=== PATIENT | female | born 1970 | race Hispanic/Latino ===

== ENCOUNTER 2018-07-27 01:55 | Inpatient (IN) | payer OTHER ==
[2018-07-27] MEDS ORDERED: Sodium Chloride 0.9% 1,000 ML IV ONE ×2 (02:05→20:00)
[2018-07-27] MEDS ORDERED: Morphine 4 MG/ML VIAL ONE (02:08)
[2018-07-27 02:20] LABS: EOS # 0.2 K/uL (0.0-0.7); LYMPH # 11.3 K/uL (1.0-4.3); MONO # 0.5 K/uL (0.0-0.8); NEUT % 22.5 % (50.0-75.0); NRBC % 0.1 % (0.0-2.0); RED CELL DISTRIBUTION WIDTH 13.6 % (11.5-14.5)
[2018-07-27] MEDS ORDERED: Sodium Bicarbonate (8.4%) 50 Meq Syringe ONE ×3 (02:20→07:23)
[2018-07-27] MEDS ORDERED: Propofol 10 mg/ml Inj (20 ML) ONE (02:21)
[2018-07-27 02:25] LABS: BASO # 0.2 K/uL (0.0-0.2); BASO % 1.4 % (0.0-2.0); EOS % 1.1 % (0.0-4.0); LYMPH % 71.6 % (20.0-40.0); MEAN CELL VOLUME 81.9 fL (81.0-99.0); MEAN CORPUSCULAR HEMOGLOBIN 26.1 pg (27.0-31.0); MEAN CORPUSCULAR HGB CONC 31.8 g/dL (33.0-37.0); MONO % 3.4 % (0.0-10.0); NEUT # 3.6 K/uL (1.8-7.0); PLATELET COUNT 160 K/uL (130-400); RBC 4.61 Mil/uL (3.80-5.20); WHITE BLOOD COUNT 15.8 K/uL (4.8-10.8)
[2018-07-27 02:32] LABS: ALB/GLOB RATIO 1.3 (1.0-2.1); ALBUMIN 3.7 g/dL (3.5-5.0); CALCIUM 9.4 mg/dl (8.6-10.4)
[2018-07-27 02:32] LABS: PROTHROMBIN TIME 11.4 SECONDS (9.7-12.2)
[2018-07-27 02:43] LABS: TROPONIN I 0.072 ng/mL (0.00-0.120)
[2018-07-27 02:59] LABS: ARTERIAL BLOOD GAS O2 SAT 28.2 % (95-98); ARTERIAL BLOOD GAS PCO2 103 mm/Hg (35-45); ARTERIAL BLOOD GAS PH < 6.80 (7.35-7.45); ARTERIAL BLOOD GAS PO2 29 mm/Hg (80-100)
[2018-07-27 03:02] LABS: CK-MB 0.44 ng/mL (0.0-3.38)
--- NOTE | 2018-07-27 03:18 | C.PDOC ---
History Of Present Illness 48 year old female is brought to the ED for evaluation of sudden onset epigastric and chest pain. As per family member patient passed out while at home. Patient was brought to the ED by EMS, noted to be anxious, c/o severe pain. Patient was noted to be in AFiv with a rate of 156, patient was given cardizem and morphine. Patient calmed down. Patient went into respiratory distress with severe bradycardia, ACLS was done. Patient then developed tachycardia at 120 with pulse. Patient has not previous medical history. Chief Complaint (Nursing): Abdominal Pain History Per: EMS, Family History/Exam Limitations: clinical condition Onset/Duration Of Symptoms: Hrs Current Symptoms Are (Timing): Still Present Location Of Pain/Discomfort: Epigastric Radiation Of Pain To:: Chest Quality Of Discomfort: "Pain" Recent travel outside of the [place]: No Additional History Per: EMS, Family Abnormal Vaginal Bleeding: No Past Medical History Reviewed: Historical Data, Nursing Documentation, Vital Signs Vital Signs: Last Vital Signs Temp 96.0 F L 07/27/18 02:15 Pulse 74 07/27/18 02:30 Resp 16 07/27/18 02:30 BP 127/78 07/27/18 02:30 Pulse Ox 100 07/27/18 02:30 - Medical History PMH: Anxiety Comment Only: Chronic Kidney Disease (unable to obtain) Surgical History: No Surg Hx Family History: States: Unknown Family Hx - Social History Hx Alcohol Use: No Hx Substance Use: No Review Of Systems Review Of Systems: ROS cannot be obtained secondary to pt's inabilty to answer questions. Physical Exam - Physical Exam Appears: Non-toxic Skin: Normal Color, Warm, Dry Head: Atraumatic, Normacephalic Eye(s): bilateral: Normal Inspection Neck: Normal ROM, Supple Chest: Symmetrical Cardiovascular: Rhythm Regular Respiratory: Other (assisted respirations) Gastrointestinal/Abdominal: Soft, No Tenderness, No Guarding, No Rebound Extremity: No Tenderness, No Swelling Neurological/Psych: Other (intubated, unresposive ) Gait: Unable To Assess ED Course And Treatment - Laboratory Results Result Diagrams: 07/27/18 02:16 07/27/18 02:16 O2 Sat by Pulse Oximetry: 100 Critical Care Time - Critical Care Note Total Time (in mins): 60 Documented critical care: time excludes all time spent performing seperately billable procedures. Medical Decision Making Medical Decision Making: Plan: * ABG * VBG * CT angio * CT head * Labs * CXR * UA Spoke with Dr. Fraga who accepts the patient for admission Dr. Laurent in ICU accepts the patient. Disposition Discussed With : Hayder Fraga Doctor Will See Patient In The: Hospital Counseled Patient/Family Regarding: Diagnosis - Disposition Disposition: HOSPITALIZED Disposition Time: 03:32 Condition: GUARDED Forms: [facility] (Danish) - POA Present On Arrival: None - Clinical Impression Clinical Impression: Cardiorespiratory arrest, Cardiac arrhythmia, Pulmonary embolism - Scribe Statement The provider has reviewed the documentation as recorded by the Scribe Donovan Junior All medical record entries made by the Scribe were at my direction and personally dictated by me. I have reviewed the chart and agree that the record accurately reflects my personal performance of the history, physical exam, medical decision making, and the department course for this patient. I have also personally directed, reviewed, and agree with the discharge instructions and disposition.
[2018-07-27 03:23] LABS: ARTERIAL BLOOD GAS HEMOGLOBIN 9.4 g/dL (11.7-17.4); ARTERIAL BLOOD GAS O2 SAT 99.8 % (95-98); ARTERIAL BLOOD GAS PCO2 71 mm/Hg (35-45); ARTERIAL BLOOD GAS PH < 6.80 (7.35-7.45); ARTERIAL BLOOD GAS PO2 491 mm/Hg (80-100)
--- NOTE | 2018-07-27 03:23 | CP.PCM.HP ---
<Martha Liriano - Last Filed: 07/27/18 10:43> History of Present Illness - History of Present Illness History of Present Illness: History and Physical - Hospitalist Service CC: Shortness of breath and syncope HPI: Patient is a 48 year old [place] female with past medical history of anxiety who was brought in by EMS for shortness of breath and syncope. Patient's Niece's is at the bedside providing the history. Per the family, the patient travelled to [place] the morning of 07/26 at approximately 9am via bus ride for a zoroastrianism event. Patient returned at approximately 1am on 07/27 from [place] via bus. She walked up the stairs of the apartment complex and had a syncopal event in the lobby. Syncopal event was witnessed by the door man who called EMS. Patient hit her head but it is unclear if she lost consciousness. When family arrived to the scene, patient was complaining of shortness of breath and was extremely anxious. While in the ED, patient still complaining of shortness of breath and now reports having chest/epigastric pain. Patient repeatedly asking to use the bathroom because she wanted to move her bowels. Patient was noted to be in AFib with a rate of 156, patient was given Cardizem and Morphine. Patient calmed down. Patient went into respiratory distress with severe bradycardia, ACLS was done. Patient was intubated and transferred to the ICU for further management. ROS not obtained. PMD: None Allergies: NKDA Medical History: Anxiety Medications: Protonix 40mg PO daily, Cipro 500mg PO, Drospirenona/etinilestradiol 3mg/0.02mg Surgical History: Bariatric surgery, C/S x 2 Social History: Denies alcohol, tobacco, drug use; recently came from [place] 2 months ago, lives with niece and her Family History: Unobtainable Present on Admission - Present on Admission Any Indicators Present on Admission: No Past Patient History - Infectious Disease Hx of Infectious Diseases: None - Past Social History Smoking Status: Never Smoked - CARDIAC Hx Cardiac Disorders: (unable to obtain) - PULMONARY Hx Respiratory Disorders: (unable to obtain) - NEUROLOGICAL Hx Neurological Disorder: (unable to obtain) - HEENT Hx HEENT Problems: (unable to obtain) - RENAL Hx Chronic Kidney Disease: (unable to obtain) - ENDOCRINE/METABOLIC Hx Endocrine Disorders: (unable to obtain) - HEMATOLOGICAL/ONCOLOGICAL Hx Blood Disorders: (unable to obtain) - INTEGUMENTARY Hx Dermatological Problems: (unable to obtain) - MUSCULOSKELETAL/RHEUMATOLOGICAL Hx Musculoskeletal Disorders: (unable to obtain) - GASTROINTESTINAL Hx Gastrointestinal Disorders: (unable to obtain) - GENITOURINARY/GYNECOLOGICAL Hx Genitourinary Disorders: (unable to obtain) - PSYCHIATRIC Hx Anxiety: Yes Hx Substance Use: No - SURGICAL HISTORY Hx Surgeries: Yes (As per Family Member) Hx Section: Yes (x2) Other/Comment: Bariatric Sx - ANESTHESIA Hx Anesthesia: Yes Hx Anesthesia Reactions: No Hx Malignant Hyperthermia: No Meds Allergies/Adverse Reactions: Allergies Allergy/AdvReac Type Severity Reaction Status Date / Time No Known Allergies Allergy Unverified 07/27/18 02:28 Physical Exam - Constitutional Appears: Chronically Ill - Head Exam Head Exam: NORMOCEPHALIC. absent: ATRAUMATIC Additional comments: Patient with large hematoma noted above left eye brow - Eye Exam Eye Exam: absent: Conjunctival injection, Periorbital swelling, Scleral icterus - ENT Exam ENT Exam: Mucous Membranes Moist Additional comments: +ETT - Respiratory Exam Respiratory Exam: Decreased Breath Sounds, Respiratory Distress Additional comments: +Ventilatory breath sounds - Cardiovascular Exam Cardiovascular Exam: Tachycardia, +S1, +S2 - GI/Abdominal Exam GI & Abdominal Exam: Firm, Normal Bowel Sounds. absent: Distended, Guarding, Pulsatile Mass, Rebound, Soft - Extremities Exam Extremities exam: Positive for: pedal pulses present - Neurological Exam Neurological exam: Altered - Skin Skin Exam: Dry, Normal Color, Warm Results - Vital Signs Recent Vital Signs: Last Vital Signs Temp 96.0 F L 07/27/18 02:15 Pulse 74 07/27/18 02:30 Resp 16 07/27/18 02:30 BP 127/78 07/27/18 02:30 Pulse Ox 100 07/27/18 03:21 - Labs Result Diagrams: 07/27/18 08:17 07/27/18 08:17 Labs: Laboratory Results - last 24 hr 07/27/18 07/27/18 07/27/18 02:09 02:16 02:16 WBC 15.8 H RBC 4.61 Hgb 12.0 Hct 37.8 MCV 81.9 MCH 26.1 L MCHC 31.8 L RDW 13.6 Plt Count 160 MPV 10.0 Neut % (Auto) 22.5 L Lymph % (Auto) 71.6 H Candler % (Auto) 3.4 Eos % (Auto) 1.1 Baso % (Auto) 1.4 Neut # (Auto) 3.6 Lymph # (Auto) 11.3 H Candler # (Auto) 0.5 Eos # (Auto) 0.2 Baso # (Auto) 0.2 PT INR APTT Puncture Site pCO2 pO2 ABG pH ABG O2 Saturation Bryce Test ABG Potassium A-a O2 Difference Respiratory Index Glucose Lactate FiO2 Crit Value Called To Crit Value Called By Crit Value Read Back Blood Gas Notified Time Sodium 147 Potassium 4.0 Chloride 107 Carbon Dioxide 16 L Anion Gap 28 H BUN 15 Creatinine 1.2 Est GFR ( Amer) 59 Est GFR (Non-Af Amer) 48 POC Glucose (mg/dL) 288 H Random Glucose 230 H Calcium 9.4 Total Bilirubin 0.3 AST 185 H ALT 116 H Alkaline Phosphatase 93 Total Creatine Kinase 50 CK-MB (Mass) 0.44 Troponin I 0.0720 Total Protein 6.7 Albumin 3.7 Globulin 3.0 Albumin/Globulin Ratio 1.3 Amylase 171 H Lipase 207 Arterial Blood Potassium 07/27/18 07/27/18 02:19 02:55 WBC RBC Hgb Hct MCV MCH MCHC RDW Plt Count MPV Neut % (Auto) Lymph % (Auto) Candler % (Auto) Eos % (Auto) Baso % (Auto) Neut # (Auto) Lymph # (Auto) Candler # (Auto) Eos # (Auto) Baso # (Auto) PT 11.4 INR 1.0 APTT 31 Puncture Site L femoral pCO2 103 H* pO2 29 L* ABG pH < 6.80 L* ABG O2 Saturation 28.2 L Bryce Test Na ABG Potassium 4.7 A-a O2 Difference 555.0 Respiratory Index 19.1 Glucose 281 H Lactate 17.6 H* FiO2 100.0 Crit Value Called To Dr yung Crit Value Called By Rachel love rt Crit Value Read Back Y Blood Gas Notified Time 300 Sodium 146.0 Potassium Chloride 110.0 H Carbon Dioxide Anion Gap BUN Creatinine Est GFR ( Amer) Est GFR (Non-Af Amer) POC Glucose (mg/dL) Random Glucose Calcium Total Bilirubin AST ALT Alkaline Phosphatase Total Creatine Kinase CK-MB (Mass) Troponin I Total Protein Albumin Globulin Albumin/Globulin Ratio Amylase Lipase Arterial Blood Potassium 4.7 Assessment & Plan - Assessment and Plan (Free Text) Assessment: A/P: Patient is a 48 year old [place] female with past medical history of anxiety who presented with worsening shortness of breath and syncope. Acute Hypoxic Respiratory Failure 2/2 Bilateral PE -Intubated, s/p respiratory arrest x 2 -Admitted to the ICU -ABG: pH <6.80, PO2 29, PCO2 103, Lactate 17.6 -D-Dimer was > 5250 -CT head showed left forhead swelling -CTA chest showed diffuse bilateral pulmonary emboli involving bilateral central and segmental pulmonary arteries, cardiac silhouette enlarged, there is evidence of pulmonary venous congestion compatible with CHF, left basilar atelectasis vs pulmonary infarct (official report pending) -Patient started on heparin drip -Lower extremity dopplers and echocardiogram ordered -Patient hypotensive, on Levophed drip Atrial Fibrillation with RVR -Initial EKG showed afib with rate of 146 bpm -Patient on heparin drip -Echocardiogram ordered Abdominal Pain -Currently intubated -Antibiotics: Zosyn and Vancomycin -CT abd/pelvis showed periportal edema and pericholecystic/peripancreatic fluid, probably related to fluid overload, exclude hepatocellular disease. Severe enteritis. Infectious and inflammatory etiologies are considered. Large amount of fecal material is seen throughout colon (official report pending) Hematuria -Obed blood noted in brady -UA and urine culture ordered GI/DVT ppx: -Protonix 40mg IVP Q12H -Heparin drip DISPO: Patient condition is extremely serious. Discussed with family. Prognosis is guarded. Plan discussed with Dr Philly Liriano DO PGY-2 <Hayder Fraga - Last Filed: 07/27/18 11:05> Results - Vital Signs Recent Vital Signs: Last Vital Signs Temp 98.2 F 07/27/18 04:35 Pulse 147 H 07/27/18 07:39 Resp 22 07/27/18 07:39 BP 93/60 L 07/27/18 10:47 Pulse Ox 90 L 07/27/18 07:39 - Labs Result Diagrams: 07/27/18 08:17 07/27/18 08:17 Labs: Laboratory Results - last 24 hr 07/27/18 07/27/18 07/27/18 02:09 02:16 02:16 WBC 15.8 H RBC 4.61 Hgb 12.0 Hct 37.8 MCV 81.9 MCH 26.1 L MCHC 31.8 L RDW 13.6 Plt Count 160 MPV 10.0 Neut % (Auto) 22.5 L Lymph % (Auto) 71.6 H Candler % (Auto) 3.4 Eos % (Auto) 1.1 Baso % (Auto) 1.4 Neut # (Auto) 3.6 Lymph # (Auto) 11.3 H Candler # (Auto) 0.5 Eos # (Auto) 0.2 Baso # (Auto) 0.2 Neutrophils % (Manual) 26 L Band Neutrophils % Lymphocytes % (Manual) 49 H Reactive Lymphs % 18 H Monocytes % (Manual) 5 Eosinophils % (Manual) 1 Basophils % (Manual) 1 Myelocytes % Platelet Estimate Normal Hypochromasia (manual) Poikilocytosis (manual Anisocytosis (manual) Kya Cells PT INR APTT Fibrinogen Fibrin Degrad Products Fibrin Degrad Prod, Qt D-Dimer, Quantitative Puncture Site pCO2 pO2 HCO3 ABG pH ABG Total CO2 ABG O2 Saturation ABG Base Excess ABG Hemoglobin ABG Carboxyhemoglobin POC ABG HHb (Measured) ABG Methemoglobin Bryce Test ABG Potassium A-a O2 Difference Respiratory Index Hgb O2 Saturation Glucose Lactate Vent Mode Mechanical Rate FiO2 Tidal Volume PEEP Crit Value Called To Crit Value Called By Crit Value Read Back Blood Gas Notified Time Sodium 147 Potassium 4.0 Chloride 107 Carbon Dioxide 16 L Anion Gap 28 H BUN 15 Creatinine 1.2 Est GFR ( Amer) 59 Est GFR (Non-Af Amer) 48 POC Glucose (mg/dL) 288 H Random Glucose 230 H Calcium 9.4 Phosphorus Magnesium Total Bilirubin 0.3 AST 185 H ALT 116 H Alkaline Phosphatase 93 Total Creatine Kinase 50 CK-MB (Mass) 0.44 Troponin I 0.0720 Total Protein 6.7 Albumin 3.7 Globulin 3.0 Albumin/Globulin Ratio 1.3 Amylase 171 H Lipase 207 Arterial Blood Potassium Urine Color Urine Clarity Urine pH Ur Specific [place] Urine Protein Urine Glucose (UA) Urine Ketones Urine Blood Urine Nitrate Urine Bilirubin Urine Urobilinogen Ur Leukocyte Esterase Urine WBC (Auto) Urine RBC (Auto) Urine HCG, Qual Urine Opiates Screen Urine Methadone Screen Ur Barbiturates Screen Ur Phencyclidine Scrn Ur Amphetamines Screen U Benzodiazepines Scrn U Oth Cocaine Metabols U Cannabinoids Screen 07/27/18 07/27/18 07/27/18 02:19 02:55 03:19 WBC RBC Hgb Hct MCV MCH MCHC RDW Plt Count MPV Neut % (Auto) Lymph % (Auto) Candler % (Auto) Eos % (Auto) Baso % (Auto) Neut # (Auto) Lymph # (Auto) Candler # (Auto) Eos # (Auto) Baso # (Auto) Neutrophils % (Manual) Band Neutrophils % Lymphocytes % (Manual) Reactive Lymphs % Monocytes % (Manual) Eosinophils % (Manual) Basophils % (Manual) Myelocytes % Platelet Estimate Hypochromasia (manual) Poikilocytosis (manual Anisocytosis (manual) Campo Cells PT 11.4 INR 1.0 APTT 31 Fibrinogen Fibrin Degrad Products Fibrin Degrad Prod, Qt D-Dimer, Quantitative Cancelled Puncture Site L femoral R bra pCO2 103 H* 71 H* pO2 29 L* 491 H HCO3 ABG pH < 6.80 L* < 6.80 L* ABG Total CO2 ABG O2 Saturation 28.2 L 99.8 H ABG Base Excess ABG Hemoglobin 9.4 L ABG Carboxyhemoglobin 0.5 POC ABG HHb (Measured) 0.2 ABG Methemoglobin 0.6 Bryce Test Na Na ABG Potassium 4.7 A-a O2 Difference 555.0 133.0 Respiratory Index 19.1 0.3 Hgb O2 Saturation 98.7 H Glucose 281 H Lactate 17.6 H* Vent Mode Prvc Mechanical Rate 16 FiO2 100.0 100.0 Tidal Volume 450 PEEP 5 Crit Value Called To Dr aga yung Crit Value Called By Rachel love rt Rachel love rt Crit Value Read Back Y Y Blood Gas Notified Time 300 322 Sodium 146.0 Potassium Chloride 110.0 H Carbon Dioxide Anion Gap BUN Creatinine Est GFR ( Amer) Est GFR (Non-Af Amer) POC Glucose (mg/dL) Random Glucose Calcium Phosphorus Magnesium Total Bilirubin AST ALT Alkaline Phosphatase Total Creatine Kinase CK-MB (Mass) Troponin I Total Protein Albumin Globulin Albumin/Globulin Ratio Amylase Lipase Arterial Blood Potassium 4.7 Urine Color Urine Clarity Urine pH Ur Specific [place] Urine Protein Urine Glucose (UA) Urine Ketones Urine Blood Urine Nitrate Urine Bilirubin Urine Urobilinogen Ur Leukocyte Esterase Urine WBC (Auto) Urine RBC (Auto) Urine HCG, Qual Urine Opiates Screen Urine Methadone Screen Ur Barbiturates Screen Ur Phencyclidine Scrn Ur Amphetamines Screen U Benzodiazepines Scrn U Oth Cocaine Metabols U Cannabinoids Screen 07/27/18 07/27/18 07/27/18 03:51 04:01 04:02 WBC RBC Hgb Hct MCV MCH MCHC RDW Plt Count MPV Neut % (Auto) Lymph % (Auto) Candler % (Auto) Eos % (Auto) Baso % (Auto) Neut # (Auto) Lymph # (Auto) Candler # (Auto) Eos # (Auto) Baso # (Auto) Neutrophils % (Manual) Band Neutrophils % Lymphocytes % (Manual) Reactive Lymphs % Monocytes % (Manual) Eosinophils % (Manual) Basophils % (Manual) Myelocytes % Platelet Estimate Hypochromasia (manual) Poikilocytosis (manual Anisocytosis (manual) Kya Cells PT INR APTT Fibrinogen Fibrin Degrad Products Fibrin Degrad Prod, Qt D-Dimer, Quantitative Puncture Site pCO2 pO2 HCO3 ABG pH ABG Total CO2 ABG O2 Saturation ABG Base Excess ABG Hemoglobin ABG Carboxyhemoglobin POC ABG HHb (Measured) ABG Methemoglobin Bryce Test ABG Potassium A-a O2 Difference Respiratory Index Hgb O2 Saturation Glucose Lactate Vent Mode Mechanical Rate FiO2 Tidal Volume PEEP Crit Value Called To Crit Value Called By Crit Value Read Back Blood Gas Notified Time Sodium Potassium Chloride Carbon Dioxide Anion Gap BUN Creatinine Est GFR ( Amer) Est GFR (Non-Af Amer) POC Glucose (mg/dL) Random Glucose Calcium Phosphorus Magnesium Total Bilirubin AST ALT Alkaline Phosphatase Total Creatine Kinase CK-MB (Mass) Troponin I Total Protein Albumin Globulin Albumin/Globulin Ratio Amylase Lipase Arterial Blood Potassium Urine Color Red Urine Clarity Turbid Urine pH 5.0 Ur Specific [place] 1.027 Urine Protein 2+ H Urine Glucose (UA) Normal Urine Ketones Negative Urine Blood 3+ H Urine Nitrate Negative Urine Bilirubin Negative Urine Urobilinogen Normal Ur Leukocyte Esterase Neg Urine WBC (Auto) 24 H Urine RBC (Auto) 10536 H Urine HCG, Qual Negative Urine Opiates Screen Negative Urine Methadone Screen Negative Ur Barbiturates Screen Negative Ur Phencyclidine Scrn Negative Ur Amphetamines Screen Negative U Benzodiazepines Scrn Negative U Oth Cocaine Metabols Negative U Cannabinoids Screen Negative 07/27/18 07/27/18 07/27/18 04:03 06:39 08:17 WBC 20.1 H RBC 3.64 L Hgb 9.5 L D Hct 29.5 L MCV 80.9 L MCH 26.0 L MCHC 32.1 L RDW 13.5 Plt Count 185 MPV 7.6 Neut % (Auto) 88.9 H Lymph % (Auto) 9.5 L Candler % (Auto) 0.9 Eos % (Auto) 0.4 Baso % (Auto) 0.3 Neut # (Auto) 17.9 H Lymph # (Auto) 1.9 Candler # (Auto) 0.2 Eos # (Auto) 0.1 Baso # (Auto) 0.1 Neutrophils % (Manual) 74 Band Neutrophils % 13 H* Lymphocytes % (Manual) 11 L Reactive Lymphs % Monocytes % (Manual) 1 Eosinophils % (Manual) Basophils % (Manual) Myelocytes % 1 H Platelet Estimate Normal Hypochromasia (manual) Slight Poikilocytosis (manual Slight Anisocytosis (manual) Slight Campo Cells Slight PT INR APTT Fibrinogen Fibrin Degrad Products Fibrin Degrad Prod, Qt D-Dimer, Quantitative > 5250 H Puncture Site R rad pCO2 81 H* pO2 54 L HCO3 13.7 L ABG pH 6.99 L* ABG Total CO2 22.0 ABG O2 Saturation 85.8 L ABG Base Excess -13.3 L ABG Hemoglobin ABG Carboxyhemoglobin POC ABG HHb (Measured) ABG Methemoglobin Bryce Test Pos ABG Potassium 3.8 A-a O2 Difference 558.0 Respiratory Index 10.3 Hgb O2 Saturation Glucose 251 H Lactate 5.8 H* Vent Mode Prvc Mechanical Rate 20 FiO2 100.0 Tidal Volume 450 PEEP 5 Crit Value Called To Nito swan rn Crit Value Called By Rachel love rt Crit Value Read Back Y Blood Gas Notified Time 700 Sodium 143.0 Potassium Chloride 113.0 H Carbon Dioxide Anion Gap BUN Creatinine Est GFR ( Amer) Est GFR (Non-Af Amer) POC Glucose (mg/dL) Random Glucose Calcium Phosphorus Magnesium Total Bilirubin AST ALT Alkaline Phosphatase Total Creatine Kinase CK-MB (Mass) Troponin I Total Protein Albumin Globulin Albumin/Globulin Ratio Amylase Lipase Arterial Blood Potassium 3.8 Urine Color Urine Clarity Urine pH Ur Specific [place] Urine Protein Urine Glucose (UA) Urine Ketones Urine Blood Urine Nitrate Urine Bilirubin Urine Urobilinogen Ur Leukocyte Esterase Urine WBC (Auto) Urine RBC (Auto) Urine HCG, Qual Urine Opiates Screen Urine Methadone Screen Ur Barbiturates Screen Ur Phencyclidine Scrn Ur Amphetamines Screen U Benzodiazepines Scrn U Oth Cocaine Metabols U Cannabinoids Screen 07/27/18 07/27/18 07/27/18 08:17 09:35 10:17 WBC RBC Hgb Hct MCV MCH MCHC RDW Plt Count MPV Neut % (Auto) Lymph % (Auto) [place] % (Auto) Eos % (Auto) Baso % (Auto) Neut # (Auto) Lymph # (Auto) Candler # (Auto) Eos # (Auto) Baso # (Auto) Neutrophils % (Manual) Band Neutrophils % Lymphocytes % (Manual) Reactive Lymphs % Monocytes % (Manual) Eosinophils % (Manual) Basophils % (Manual) Myelocytes % Platelet Estimate Hypochromasia (manual) Poikilocytosis (manual Anisocytosis (manual) Kya Cells PT Cancelled INR Cancelled APTT Cancelled Fibrinogen Cancelled Fibrin Degrad Products Cancelled Positive H Fibrin Degrad Prod, Qt Cancelled >40 H D-Dimer, Quantitative Puncture Site pCO2 pO2 HCO3 ABG pH ABG Total CO2 ABG O2 Saturation ABG Base Excess ABG Hemoglobin ABG Carboxyhemoglobin POC ABG HHb (Measured) ABG Methemoglobin Bryce Test ABG Potassium A-a O2 Difference Respiratory Index Hgb O2 Saturation Glucose Lactate Vent Mode Mechanical Rate FiO2 Tidal Volume PEEP Crit Value Called To Crit Value Called By Crit Value Read Back Blood Gas Notified Time Sodium 149 H Potassium 3.4 L Chloride 110 H Carbon Dioxide 29 Anion Gap 13 BUN 20 H Creatinine 1.3 H Est GFR ( Amer) 53 Est GFR (Non-Af Amer) 44 POC Glucose (mg/dL) Random Glucose 186 H Calcium 6.5 L Phosphorus 8.6 H Magnesium 2.1 Total Bilirubin 0.5 AST 693 H D ALT 378 H D Alkaline Phosphatase 192 H D Total Creatine Kinase CK-MB (Mass) Troponin I Total Protein 4.5 L Albumin 2.2 L D Globulin 2.2 Albumin/Globulin Ratio 1.0 Amylase Lipase Arterial Blood Potassium Urine Color Urine Clarity Urine pH Ur Specific [place] Urine Protein Urine Glucose (UA) Urine Ketones Urine Blood Urine Nitrate Urine Bilirubin Urine Urobilinogen Ur Leukocyte Esterase Urine WBC (Auto) Urine RBC (Auto) Urine HCG, Qual Urine Opiates Screen Urine Methadone Screen Ur Barbiturates Screen Ur Phencyclidine Scrn Ur Amphetamines Screen U Benzodiazepines Scrn U Oth Cocaine Metabols U Cannabinoids Screen Assessment & Plan - Date & Time Date: 07/27/18 (I have seen and examined the patient. I agree with the findings and plan of care as documented by Dr. Liriano. Patient with acute respiratory failure secondary to bilateral pulmonary emboli. Intubated. Admit to ICU for further management. Heparin drip. Monitor for acute changes.) Time: 11:04 Attending/Attestation - Attestation I have personally seen and examined this patient.: Yes I have fully participated in the care of the patient.: Yes I have reviewed all pertinent clinical information: Yes
[2018-07-27] MEDS ORDERED: Iodixanol 320 MG/ML 100 ML BOTTLE IV ONE (03:40)
[2018-07-27 03:50] LABS: BASOPHIL 1 % (0-2); EOSINOPHIL 1 % (0-4); LYMPHOCYTE 49 % (20-40); MONOCYTE 5 % (0-10); NEUTROPHIL 26 % (50-75); PLATELET ESTIMATE NORMAL (NORMAL); REACTIVE LYMPHOCYTES 18 % (0-0); TOTAL CELLS COUNTED 100
[2018-07-27 04:17] LABS: URINE BILIRUBIN NEGATIVE (NEGATIVE); URINE BLOOD 3+ (NEGATIVE); URINE GLUCOSE (UA) NORMAL (Normal); URINE LEUKOCYTE ESTERASE NEG Leu/uL (Negative); URINE PROTEIN 2+ mg/dL (NEGATIVE); URINE UROBILINOGEN NORMAL mg/dL (0.2-1.0)
[2018-07-27 04:19] LABS: URINE CLARITY Turbid (Clear); URINE COLOR RED (YELLOW)
[2018-07-27 04:20] LABS: BARBITURATES, UR NEGATIVE (NEGATIVE); BENZODIAZEPINES, UR NEGATIVE (NEGATIVE); OPIATES, UR NEGATIVE (NEGATIVE); PHENCYCLIDINE, UR NEGATIVE (NEGATIVE)
[2018-07-27] MEDS ORDERED: Heparin25000 units/250ml 1/2NS 25,000 UNITS/250 ML BAG IV PRN (06:21)
[2018-07-27 06:58] VITALS: BMI 27.4
[2018-07-27 06:59] LABS: ABG ALLEN TEST POS; ARTERIAL BLOOD GAS HCO3 13.7 mmol/L (21-28); ARTERIAL BLOOD GAS O2 SAT 85.8 % (95-98); ARTERIAL BLOOD GAS PCO2 81 mm/Hg (35-45); ARTERIAL BLOOD GAS PH 6.99 (7.35-7.45); ARTERIAL BLOOD GAS PO2 54 mm/Hg (80-100)
--- NOTE | 2018-07-27 07:20 | PCM.PROC ---
Procedures Attestation:: I certify that I have explained the specified Operation(s) or Procedure(s), risks, benefits and reasonable alternatives to the Patient and/or other person responsible. The opportunity was given to ask questions and all questions answered - Central Line Placement Left Internal Jugular Triple Lumen Catheter Aseptic technique was employed throughout the procedure: Hand Hygiene done prior to procedure, Full sterile barriers (mask, hair cover, sterile gown, sterile g loves), Full body sterile drape, Chloraprep Antiseptic: 30 second prep for IJ or SC sites CVP Time Out Performed: Yes Pt. Placed on Pulse Ox Monitor: Yes Central Line Prep: Chlorhexidine-Alcohol Combination Local Anesthesia Used: Lidocaine 1% Amount of Anesthesia Used (mls): 2 Ultrasound Used for Placement: Yes Central Line Lumen Inserted: triple Central Line Length: 20 cm Post Procedure: Sutured in Place, Good Blood Return, All Ports Aspirated, Flushed, Capped, Sterile Dressing Applied Secured by: Suture Post procedure dressing: Chlorhexidine disc (Biopatch) Post Procedure X-Ray: Yes Immediate Complications: None (Central line done due to acute hypotensive state from massive pe, urgently, no close family members available for conset, pt travelling form [place], and living here with distant niece who's only present in ER.)
[2018-07-27] MEDS: Heparin25000 units/250ml 1/2NS 25,000 UNITS/250 ML BAG IV PRN (08:20)
[2018-07-27 08:24] LABS: BASO # 0.1 K/uL (0.0-0.2); BASO % 0.3 % (0.0-2.0); EOS # 0.1 K/uL (0.0-0.7); EOS % 0.4 % (0.0-4.0); LYMPH # 1.9 K/uL (1.0-4.3); LYMPH % 9.5 % (20.0-40.0); MEAN CELL VOLUME 80.9 fL (81.0-99.0); MEAN CORPUSCULAR HGB CONC 32.1 g/dL (33.0-37.0); MEAN PLATELET VOLUME 7.6 fL (7.2-11.7); MONO # 0.2 K/uL (0.0-0.8); MONO % 0.9 % (0.0-10.0); NEUT # 17.9 K/uL (1.8-7.0); NEUT % 88.9 % (50.0-75.0); NRBC % 0.1 % (0.0-2.0); PLATELET COUNT 185 K/uL (130-400); RBC 3.64 Mil/uL (3.80-5.20); RED CELL DISTRIBUTION WIDTH 13.5 % (11.5-14.5); WHITE BLOOD COUNT 20.1 K/uL (4.8-10.8)
[2018-07-27] MEDS ORDERED: Sodium Chloride 0.9% 1,000 ML IV SCH (08:30)
[2018-07-27 08:31] LABS: HEMOGLOBIN 9.5 g/dL (11.0-16.0)
--- NOTE | 2018-07-27 08:34 | CT ---
Date of service: 07/27/2018 PROCEDURE: CT HEAD WITHOUT CONTRAST. HISTORY: unresponsiveness COMPARISON: None available. TECHNIQUE: Axial computed tomography images were obtained through the head/brain without intravenous contrast. Radiation dose: Total exam DLP = 1133 mGy-cm. This CT exam was performed using one or more of the following dose reduction techniques: Automated exposure control, adjustment of the mA and/or kV according to patient size, and/or use of iterative reconstruction technique. FINDINGS: HEMORRHAGE: No intracranial hemorrhage. BRAIN: No mass effect or edema. No atrophy or chronic microvascular ischemic changes. VENTRICLES: Unremarkable. No hydrocephalus. CALVARIUM: Unremarkable. PARANASAL SINUSES: Unremarkable as visualized. No significant inflammatory changes. MASTOID AIR CELLS: Unremarkable as visualized. No inflammatory changes. OTHER FINDINGS: Left forehead soft tissue swelling. Soft tissue nodule seen within the high frontal subcutaneous scalp on series 4, image 58 measuring 6 millimeters. Streak artifact in the frontal region bilaterally. IMPRESSION: No acute intracranial abnormality. Left forehead swelling. If symptoms persists, consider correlation with MRI. These findings were preliminarily reported at 4:49 a.m. on 07/27/[address] Win Hough from [employer].
[2018-07-27 08:41] LABS: ALBUMIN 2.2 g/dL (3.5-5.0); CALCIUM 6.5 mg/dl (8.6-10.4)
[2018-07-27 08:51] LABS: ANISOCYTOSIS SLIGHT; BANDS 13 % (0-2); LYMPHOCYTE 11 % (20-40); MONOCYTE 1 % (0-10); MYELOCYTE 1 % (0-0); NEUTROPHIL 74 % (50-75); PLATELET ESTIMATE NORMAL (NORMAL); TOTAL CELLS COUNTED 100
[2018-07-27 08:52] LABS: HYPOCHROMIC SLIGHT; POIKILOCYTOSIS SLIGHT
[2018-07-27 08:53] LABS: BURR CELLS SLIGHT
[2018-07-27] MEDS: Cisatracurium Besylate 100 MG in Dextrose 5% In Water 240 ML IV PRN (09:20)
[2018-07-27] MEDS ORDERED: Sodium Bicarbonate (8.4%) 50 Meq Syringe IVP ONE (09:35)
--- NOTE | 2018-07-27 10:06 | PCM.IRP ---
History of Present Illness - History of Present Illness History of Present Illness: IR asked to evaluate Pt for catheter directed thrombolysis. Pulmonary CT angiogram reviewed. Pt with distal left lobar, left lower segmental, and Right lower segmental PE. There is no RV strain on CT ( RV ratio:LV ratio <1). Based on the amount of thrombus in the pulmonary arteries and RV:LV ratio on CT, Pt is not a candidate for catheter directed thrombosis. Recommend systemic fibrinolysis if bleeding risks are acceptable. Objective - Vital Signs/Intake and Output Vital Signs (last 24 hours): Vital Signs - 24 hr 07/27/18 07/27/18 07/27/18 02:11 02:15 02:30 Temperature 96.0 F L Pulse Rate 149 H 94 H 74 Pulse Rate [ Bilateral Radial] Respiratory 34 H 16 Rate Blood Pressure 161/126 H 171/117 H 127/78 O2 Sat by Pulse 84 L 80 L 100 Oximetry 07/27/18 07/27/18 07/27/18 02:45 03:00 03:15 Temperature Pulse Rate 112 H 110 H Pulse Rate [ Bilateral Radial] Respiratory 26 H 28 H Rate Blood Pressure 149/121 H 65/45 L 60/40 L O2 Sat by Pulse 100 100 Oximetry 07/27/18 07/27/18 07/27/18 03:20 03:41 04:27 Temperature Pulse Rate 112 H 122 H Pulse Rate [ Bilateral Radial] Respiratory 26 H 21 Rate Blood Pressure 60/40 L 99/67 L O2 Sat by Pulse 100 100 100 Oximetry 07/27/18 07/27/18 07/27/18 04:35 05:00 05:56 Temperature 98.2 F Pulse Rate 123 H 123 H 143 H Pulse Rate [ 123 H Bilateral Radial] Respiratory 22 23 21 Rate Blood Pressure 98/67 L 85/55 L O2 Sat by Pulse 100 85 L 87 L Oximetry 07/27/18 07/27/18 07/27/18 06:00 06:49 07:00 Temperature Pulse Rate 143 H 147 H 147 H Pulse Rate [ Bilateral Radial] Respiratory 22 21 21 Rate Blood Pressure O2 Sat by Pulse 85 L 86 L 88 L Oximetry 07/27/18 07/27/18 07/27/18 07:10 07:39 08:19 Temperature Pulse Rate 146 H 147 H Pulse Rate [ Bilateral Radial] Respiratory 22 22 Rate Blood Pressure 89/55 L 49/30 L 63/29 L O2 Sat by Pulse 86 L 90 L Oximetry Intake and Output (last 12 hours): Intake & Output 07/26/18 07/27/18 07/27/18 18:59 06:59 18:59 Intake Total 105 105 Output Total 70 30 Balance 35 75 Weight 160 lb Intake: IV 30 Intake, IV Amount 105 75 Right Antecubital 105 75 Oral 0 0 Output: Urine 70 30 Urethral (Becerril) 70 30 Other: Voiding Method Indwelling Catheter # Bowel Movements 1 - Medications Medications: Current Medications Heparin Sodium/Sodium Chloride (Heparin 55517 Units/250ml 1/2 Normal Saline) 25,000 units in 250 mls @ 12.247 mls/hr IV .[id number] PRN; Protocol PRN Reason: ADJUST RATE PER PROTOCOL Last Titration: 07/27/18 09:21 Dose: 0 units/kg/hr, 0 mls/hr Norepinephrine Bitartrate 4 mg (/ Sodium Chloride) 250 mls @ 15 mls/hr IV .[id number] PRN; Protocol PRN Reason: TITRATE PER MD ORDER Last Admin: 07/27/18 08:19 Dose: 20 mcg/min, 75 mls/hr Sodium Chloride (Sodium Chloride 0.9%) 1,000 mls @ 200 mls/hr IV .Q5H KACY Stop: 07/27/18 13:29 Last Admin: 07/27/18 09:20 Dose: 200 mls/hr Cisatracurium Besylate 100 mg/ (Dextrose) 250 mls @ 32.66 mls/hr IV .[id number] PRN; Protocol PRN Reason: Agitation Last Admin: 07/27/18 09:20 Dose: 3 mcg/kg/min, 32.66 mls/hr Piperacillin Sod/Tazobactam (Sod 3.375 gm/ Sodium Chloride) 100 mls @ 200 mls/hr IVPB Q6H KACY; Protocol Vancomycin HCl 1,000 mg/ (Sodium Chloride) 250 mls @ 166.6 mls/hr IVPB Q12H KACY; Protocol Phenylephrine HCl 30 mg/ (Sodium Chloride) 250 mls @ 10 mls/hr IV .Q24H PRN; Protocol PRN Reason: TITRATE PER MD ORDER Lorazepam (Ativan) 2 mg IVP Q4 PRN PRN Reason: Anxiety Methylprednisolone (Solu-Medrol) 40 mg IVP TID [facility] Pantoprazole Sodium (Protonix Inj) 40 mg IVP Q12 KACY - Labs Labs (last 24 hours): Laboratory Results - last 24 hr 07/27/18 07/27/18 07/27/18 02:09 02:16 02:16 WBC 15.8 H RBC 4.61 Hgb 12.0 Hct 37.8 MCV 81.9 MCH 26.1 L MCHC 31.8 L RDW 13.6 Plt Count 160 MPV 10.0 Neut % (Auto) 22.5 L Lymph % (Auto) 71.6 H [place] % (Auto) 3.4 Eos % (Auto) 1.1 Baso % (Auto) 1.4 Neut # (Auto) 3.6 Lymph # (Auto) 11.3 H [place] # (Auto) 0.5 Eos # (Auto) 0.2 Baso # (Auto) 0.2 Neutrophils % (Manual) 26 L Band Neutrophils % Lymphocytes % (Manual) 49 H Reactive Lymphs % 18 H Monocytes % (Manual) 5 Eosinophils % (Manual) 1 Basophils % (Manual) 1 Myelocytes % Platelet Estimate Normal Hypochromasia (manual) Poikilocytosis (manual Anisocytosis (manual) Kya Cells PT INR APTT Fibrin Degrad Products Fibrin Degrad Prod, Qt D-Dimer, Quantitative Puncture Site pCO2 pO2 HCO3 ABG pH ABG Total CO2 ABG O2 Saturation ABG Base Excess ABG Hemoglobin ABG Carboxyhemoglobin POC ABG HHb (Measured) ABG Methemoglobin Bryce Test ABG Potassium A-a O2 Difference Respiratory Index Hgb O2 Saturation Glucose Lactate Vent Mode Mechanical Rate FiO2 Tidal Volume PEEP Crit Value Called To Crit Value Called By Crit Value Read Back Blood Gas Notified Time Sodium 147 Potassium 4.0 Chloride 107 Carbon Dioxide 16 L Anion Gap 28 H BUN 15 Creatinine 1.2 Est GFR ( Amer) 59 Est GFR (Non-Af Amer) 48 POC Glucose (mg/dL) 288 H Random Glucose 230 H Calcium 9.4 Phosphorus Magnesium Total Bilirubin 0.3 AST 185 H ALT 116 H Alkaline Phosphatase 93 Total Creatine Kinase 50 CK-MB (Mass) 0.44 Troponin I 0.0720 Total Protein 6.7 Albumin 3.7 Globulin 3.0 Albumin/Globulin Ratio 1.3 Amylase 171 H Lipase 207 Arterial Blood Potassium Urine Color Urine Clarity Urine pH Ur Specific [place] Urine Protein Urine Glucose (UA) Urine Ketones Urine Blood Urine Nitrate Urine Bilirubin Urine Urobilinogen Ur Leukocyte Esterase Urine WBC (Auto) Urine RBC (Auto) Urine HCG, Qual Urine Opiates Screen Urine Methadone Screen Ur Barbiturates Screen Ur Phencyclidine Scrn Ur Amphetamines Screen U Benzodiazepines Scrn U Oth Cocaine Metabols U Cannabinoids Screen 07/27/18 07/27/18 07/27/18 02:19 02:55 03:19 WBC RBC Hgb Hct MCV MCH MCHC RDW Plt Count MPV Neut % (Auto) Lymph % (Auto) [place] % (Auto) Eos % (Auto) Baso % (Auto) Neut # (Auto) Lymph # (Auto) [place] # (Auto) Eos # (Auto) Baso # (Auto) Neutrophils % (Manual) Band Neutrophils % Lymphocytes % (Manual) Reactive Lymphs % Monocytes % (Manual) Eosinophils % (Manual) Basophils % (Manual) Myelocytes % Platelet Estimate Hypochromasia (manual) Poikilocytosis (manual Anisocytosis (manual) Kya Cells PT 11.4 INR 1.0 APTT 31 Fibrin Degrad Products Fibrin Degrad Prod, Qt D-Dimer, Quantitative Cancelled Puncture Site L femoral R bra pCO2 103 H* 71 H* pO2 29 L* 491 H HCO3 ABG pH < 6.80 L* < 6.80 L* ABG Total CO2 ABG O2 Saturation 28.2 L 99.8 H ABG Base Excess ABG Hemoglobin 9.4 L ABG Carboxyhemoglobin 0.5 POC ABG HHb (Measured) 0.2 ABG Methemoglobin 0.6 Bryce Test Na Na ABG Potassium 4.7 A-a O2 Difference 555.0 133.0 Respiratory Index 19.1 0.3 Hgb O2 Saturation 98.7 H Glucose 281 H Lactate 17.6 H* Vent Mode Prvc Mechanical Rate 16 FiO2 100.0 100.0 Tidal Volume 450 PEEP 5 Crit Value Called To Dr aga yung Crit Value Called By Rachel love rt Rachel love rt Crit Value Read Back Y Y Blood Gas Notified Time 300 322 Sodium 146.0 Potassium Chloride 110.0 H Carbon Dioxide Anion Gap BUN Creatinine Est GFR ( Amer) Est GFR (Non-Af Amer) POC Glucose (mg/dL) Random Glucose Calcium Phosphorus Magnesium Total Bilirubin AST ALT Alkaline Phosphatase Total Creatine Kinase CK-MB (Mass) Troponin I Total Protein Albumin Globulin Albumin/Globulin Ratio Amylase Lipase Arterial Blood Potassium 4.7 Urine Color Urine Clarity Urine pH Ur Specific [place] Urine Protein Urine Glucose (UA) Urine Ketones Urine Blood Urine Nitrate Urine Bilirubin Urine Urobilinogen Ur Leukocyte Esterase Urine WBC (Auto) Urine RBC (Auto) Urine HCG, Qual Urine Opiates Screen Urine Methadone Screen Ur Barbiturates Screen Ur Phencyclidine Scrn Ur Amphetamines Screen U Benzodiazepines Scrn U Oth Cocaine Metabols U Cannabinoids Screen 07/27/18 07/27/18 07/27/18 03:51 04:01 04:02 WBC RBC Hgb Hct MCV MCH MCHC RDW Plt Count MPV Neut % (Auto) Lymph % (Auto) [place] % (Auto) Eos % (Auto) Baso % (Auto) Neut # (Auto) Lymph # (Auto) [place] # (Auto) Eos # (Auto) Baso # (Auto) Neutrophils % (Manual) Band Neutrophils % Lymphocytes % (Manual) Reactive Lymphs % Monocytes % (Manual) Eosinophils % (Manual) Basophils % (Manual) Myelocytes % Platelet Estimate Hypochromasia (manual) Poikilocytosis (manual Anisocytosis (manual) Kya Cells PT INR APTT Fibrin Degrad Products Fibrin Degrad Prod, Qt D-Dimer, Quantitative Puncture Site pCO2 pO2 HCO3 ABG pH ABG Total CO2 ABG O2 Saturation ABG Base Excess ABG Hemoglobin ABG Carboxyhemoglobin POC ABG HHb (Measured) ABG Methemoglobin Bryce Test ABG Potassium A-a O2 Difference Respiratory Index Hgb O2 Saturation Glucose Lactate Vent Mode Mechanical Rate FiO2 Tidal Volume PEEP Crit Value Called To Crit Value Called By Crit Value Read Back Blood Gas Notified Time Sodium Potassium Chloride Carbon Dioxide Anion Gap BUN Creatinine Est GFR ( Amer) Est GFR (Non-Af Amer) POC Glucose (mg/dL) Random Glucose Calcium Phosphorus Magnesium Total Bilirubin AST ALT Alkaline Phosphatase Total Creatine Kinase CK-MB (Mass) Troponin I Total Protein Albumin Globulin Albumin/Globulin Ratio Amylase Lipase Arterial Blood Potassium Urine Color Red Urine Clarity Turbid Urine pH 5.0 Ur Specific [place] 1.027 Urine Protein 2+ H Urine Glucose (UA) Normal Urine Ketones Negative Urine Blood 3+ H Urine Nitrate Negative Urine Bilirubin Negative Urine Urobilinogen Normal Ur Leukocyte Esterase Neg Urine WBC (Auto) 24 H Urine RBC (Auto) 45827 H Urine HCG, Qual Negative Urine Opiates Screen Negative Urine Methadone Screen Negative Ur Barbiturates Screen Negative Ur Phencyclidine Scrn Negative Ur Amphetamines Screen Negative U Benzodiazepines Scrn Negative U Oth Cocaine Metabols Negative U Cannabinoids Screen Negative 07/27/18 07/27/18 07/27/18 04:03 06:39 08:17 WBC 20.1 H RBC 3.64 L Hgb 9.5 L D Hct 29.5 L MCV 80.9 L MCH 26.0 L MCHC 32.1 L RDW 13.5 Plt Count 185 MPV 7.6 Neut % (Auto) 88.9 H Lymph % (Auto) 9.5 L [place] % (Auto) 0.9 Eos % (Auto) 0.4 Baso % (Auto) 0.3 Neut # (Auto) 17.9 H Lymph # (Auto) 1.9 [place] # (Auto) 0.2 Eos # (Auto) 0.1 Baso # (Auto) 0.1 Neutrophils % (Manual) 74 Band Neutrophils % 13 H* Lymphocytes % (Manual) 11 L Reactive Lymphs % Monocytes % (Manual) 1 Eosinophils % (Manual) Basophils % (Manual) Myelocytes % 1 H Platelet Estimate Normal Hypochromasia (manual) Slight Poikilocytosis (manual Slight Anisocytosis (manual) Slight [place] Cells Slight PT INR APTT Fibrin Degrad Products Fibrin Degrad Prod, Qt D-Dimer, Quantitative > 5250 H Puncture Site R rad pCO2 81 H* pO2 54 L HCO3 13.7 L ABG pH 6.99 L* ABG Total CO2 22.0 ABG O2 Saturation 85.8 L ABG Base Excess -13.3 L ABG Hemoglobin ABG Carboxyhemoglobin POC ABG HHb (Measured) ABG Methemoglobin Bryce Test Pos ABG Potassium 3.8 A-a O2 Difference 558.0 Respiratory Index 10.3 Hgb O2 Saturation Glucose 251 H Lactate 5.8 H* Vent Mode Prvc Mechanical Rate 20 FiO2 100.0 Tidal Volume 450 PEEP 5 Crit Value Called To Nito swan rn Crit Value Called By Rachel love rt Crit Value Read Back Y Blood Gas Notified Time 700 Sodium 143.0 Potassium Chloride 113.0 H Carbon Dioxide Anion Gap BUN Creatinine Est GFR ( Amer) Est GFR (Non-Af Amer) POC Glucose (mg/dL) Random Glucose Calcium Phosphorus Magnesium Total Bilirubin AST ALT Alkaline Phosphatase Total Creatine Kinase CK-MB (Mass) Troponin I Total Protein Albumin Globulin Albumin/Globulin Ratio Amylase Lipase Arterial Blood Potassium 3.8 Urine Color Urine Clarity Urine pH Ur Specific [place] Urine Protein Urine Glucose (UA) Urine Ketones Urine Blood Urine Nitrate Urine Bilirubin Urine Urobilinogen Ur Leukocyte Esterase Urine WBC (Auto) Urine RBC (Auto) Urine HCG, Qual Urine Opiates Screen Urine Methadone Screen Ur Barbiturates Screen Ur Phencyclidine Scrn Ur Amphetamines Screen U Benzodiazepines Scrn U Oth Cocaine Metabols U Cannabinoids Screen 07/27/18 07/27/18 08:17 09:35 WBC RBC Hgb Hct MCV MCH MCHC RDW Plt Count MPV Neut % (Auto) Lymph % (Auto) [place] % (Auto) Eos % (Auto) Baso % (Auto) Neut # (Auto) Lymph # (Auto) [place] # (Auto) Eos # (Auto) Baso # (Auto) Neutrophils % (Manual) Band Neutrophils % Lymphocytes % (Manual) Reactive Lymphs % Monocytes % (Manual) Eosinophils % (Manual) Basophils % (Manual) Myelocytes % Platelet Estimate Hypochromasia (manual) Poikilocytosis (manual Anisocytosis (manual) Kya Cells PT INR APTT Fibrin Degrad Products Positive H Fibrin Degrad Prod, Qt >40 H D-Dimer, Quantitative Puncture Site pCO2 pO2 HCO3 ABG pH ABG Total CO2 ABG O2 Saturation ABG Base Excess ABG Hemoglobin ABG Carboxyhemoglobin POC ABG HHb (Measured) ABG Methemoglobin Bryce Test ABG Potassium A-a O2 Difference Respiratory Index Hgb O2 Saturation Glucose Lactate Vent Mode Mechanical Rate FiO2 Tidal Volume PEEP Crit Value Called To Crit Value Called By Crit Value Read Back Blood Gas Notified Time Sodium 149 H Potassium 3.4 L Chloride 110 H Carbon Dioxide 29 Anion Gap 13 BUN 20 H Creatinine 1.3 H Est GFR ( Amer) 53 Est GFR (Non-Af Amer) 44 POC Glucose (mg/dL) Random Glucose 186 H Calcium 6.5 L Phosphorus 8.6 H Magnesium 2.1 Total Bilirubin 0.5 AST 693 H D ALT 378 H D Alkaline Phosphatase 192 H D Total Creatine Kinase CK-MB (Mass) Troponin I Total Protein 4.5 L Albumin 2.2 L D Globulin 2.2 Albumin/Globulin Ratio 1.0 Amylase Lipase Arterial Blood Potassium Urine Color Urine Clarity Urine pH Ur Specific [place] Urine Protein Urine Glucose (UA) Urine Ketones Urine Blood Urine Nitrate Urine Bilirubin Urine Urobilinogen Ur Leukocyte Esterase Urine WBC (Auto) Urine RBC (Auto) Urine HCG, Qual Urine Opiates Screen Urine Methadone Screen Ur Barbiturates Screen Ur Phencyclidine Scrn Ur Amphetamines Screen U Benzodiazepines Scrn U Oth Cocaine Metabols U Cannabinoids Screen
[2018-07-27 10:18] LABS: FDP INTERPRETATION POSITIVE (NEGATIVE); FDP QUANTITY >40 ug/mL (<10)
[2018-07-27] MEDS: MethylPREDNISolone 40 mg Vial IVP SCH ×3 (10:25→17:24)
[2018-07-27] MEDS: Piperacillin/Tazobact 3.375 GM in Sodium Chloride 100 ML IVPB SCH ×3 (10:25→21:03)
--- NOTE | 2018-07-27 10:43 | RAD ---
Date of service: 07/27/2018 HISTORY: Chest pain COMPARISON: No prior. FINDINGS: The endotracheal tube terminates in the mid trachea LUNGS: The lungs are clear. PLEURA: No significant pleural effusion identified, no pneumothorax apparent. CARDIOVASCULAR: Normal. OSSEOUS STRUCTURES: No significant abnormalities. VISUALIZED UPPER ABDOMEN: Normal. OTHER FINDINGS: None. IMPRESSION: Endotracheal tube terminates in the mid trachea. No acute findings.
[2018-07-27] MEDS: Phenylephrine 30 MG in Sodium Chloride 0.9% 247 ML IV PRN ×3 (10:47→23:00)
[2018-07-27 11:06] LABS: PROTHROMBIN TIME > 320.0 SECONDS (9.7-12.2)
[2018-07-27 11:07] LABS: INR > 10.0; PARTIAL THROMBOPLASTIN TIME > 400 SECONDS (21-34)
--- NOTE | 2018-07-27 11:11 | CP.PCM.CON ---
History of Present Illness - History of Present Illness History of Present Illness: Cardiology Consult Note Airam Rasmussen, PGY1 note for Dr. Ba This is a 48 year old female with PMH of anxiety presenting to the ED s/p witnessed syncopal episode after return from [place] on bus. In ED, patient noted to have afib with RVR and started on cardizem. Patient subsequently noted to be in respiratory arrest with bradycardia and ACLS performed. D-dimer noted to be elevated and CTA showed diffuse bilateral PE. Patient intubated, started on heparin drip and transferred to ICU. 12 point ROS unobtainable due to patient status. Past Patient History - Infectious Disease Hx of Infectious Diseases: None - Past Medical History & Family History Past Medical History?: Yes - Past Social History Smoking Status: Never Smoked - CARDIAC Hx Cardiac Disorders: (unable to obtain) - PULMONARY Hx Respiratory Disorders: (unable to obtain) - NEUROLOGICAL Hx Neurological Disorder: (unable to obtain) - HEENT Hx HEENT Problems: (unable to obtain) - RENAL Hx Chronic Kidney Disease: (unable to obtain) - ENDOCRINE/METABOLIC Hx Endocrine Disorders: (unable to obtain) - HEMATOLOGICAL/ONCOLOGICAL Hx Blood Disorders: (unable to obtain) - INTEGUMENTARY Hx Dermatological Problems: (unable to obtain) - MUSCULOSKELETAL/RHEUMATOLOGICAL Hx Musculoskeletal Disorders: (unable to obtain) - GASTROINTESTINAL Hx Gastrointestinal Disorders: (unable to obtain) - GENITOURINARY/GYNECOLOGICAL Hx Genitourinary Disorders: (unable to obtain) - PSYCHIATRIC Hx Anxiety: Yes Hx Substance Use: No - SURGICAL HISTORY Hx Surgeries: Yes (As per Family Member) Hx Section: Yes (x2) Other/Comment: Bariatric Sx - ANESTHESIA Hx Anesthesia: Yes Hx Anesthesia Reactions: No Hx Malignant Hyperthermia: No Meds Allergies/Adverse Reactions: Allergies Allergy/AdvReac Type Severity Reaction Status Date / Time No Known Allergies Allergy Unverified 07/27/18 02:28 - Medications Medications: Current Medications Heparin Sodium/Sodium Chloride (Heparin 55596 Units/250ml 1/2 Normal Saline) 25,000 units in 250 mls @ 12.247 mls/hr IV .[id number] PRN; Protocol PRN Reason: ADJUST RATE PER PROTOCOL Last Titration: 07/27/18 09:21 Dose: 0 units/kg/hr, 0 mls/hr Norepinephrine Bitartrate 4 mg (/ Sodium Chloride) 250 mls @ 15 mls/hr IV .[id number] PRN; Protocol PRN Reason: TITRATE PER MD ORDER Last Admin: 07/27/18 08:19 Dose: 20 mcg/min, 75 mls/hr Sodium Chloride (Sodium Chloride 0.9%) 1,000 mls @ 200 mls/hr IV .Q5H KACY Stop: 07/27/18 13:29 Last Admin: 07/27/18 09:20 Dose: 200 mls/hr Cisatracurium Besylate 100 mg/ (Dextrose) 250 mls @ 32.66 mls/hr IV .[id number] PRN; Protocol PRN Reason: Agitation Last Admin: 07/27/18 09:20 Dose: 3 mcg/kg/min, 32.66 mls/hr Piperacillin Sod/Tazobactam (Sod 3.375 gm/ Sodium Chloride) 100 mls @ 200 mls/hr IVPB Q6H KACY; Protocol Vancomycin HCl 1,000 mg/ (Sodium Chloride) 250 mls @ 166.6 mls/hr IVPB Q12H KACY; Protocol Last Admin: 07/27/18 10:07 Dose: 166.6 mls/hr Phenylephrine HCl 30 mg/ (Sodium Chloride) 250 mls @ 10 mls/hr IV .Q24H PRN; Protocol PRN Reason: TITRATE PER MD ORDER Lorazepam (Ativan) 2 mg IVP Q4 PRN PRN Reason: Anxiety Methylprednisolone (Solu-Medrol) 40 mg IVP TID KACY Pantoprazole Sodium (Protonix Inj) 40 mg IVP Q12 KACY Physical Exam - Constitutional Additional comments: non arousable, intubated - Head Exam Head Exam: ATRAUMATIC - Eye Exam Pupil Exam: PERRL - ENT Exam ENT Exam: Mucous Membranes Moist - Respiratory Exam Respiratory Exam: Clear to Auscultation Bilateral Additional comments: intubated - Cardiovascular Exam Cardiovascular Exam: Tachycardia, +S1, +S2 - GI/Abdominal Exam GI & Abdominal Exam: Normal Bowel Sounds. absent: Distended, Guarding - Exam Additional comments: gross red urine appreciable - Extremities Exam Extremities exam: Positive for: pedal pulses present - Neurological Exam Additional comments: non arousable, intubated - Skin Additional comments: hematoma measuring approx 2-3 cm appreciated surrounding central line site at left internal jugular Results - Vital Signs Recent Vital Signs: Last Vital Signs Temp 98.2 F 07/27/18 04:35 Pulse 147 H 07/27/18 07:39 Resp 22 07/27/18 07:39 BP 63/29 L 07/27/18 08:19 Pulse Ox 90 L 07/27/18 07:39 - Labs Result Diagrams: 07/27/18 08:17 07/27/18 08:17 Labs: Laboratory Results - last 24 hr 07/27/18 07/27/18 07/27/18 02:09 02:16 02:16 WBC 15.8 H RBC 4.61 Hgb 12.0 Hct 37.8 MCV 81.9 MCH 26.1 L MCHC 31.8 L RDW 13.6 Plt Count 160 MPV 10.0 Neut % (Auto) 22.5 L Lymph % (Auto) 71.6 H [place] % (Auto) 3.4 Eos % (Auto) 1.1 Baso % (Auto) 1.4 Neut # (Auto) 3.6 Lymph # (Auto) 11.3 H [place] # (Auto) 0.5 Eos # (Auto) 0.2 Baso # (Auto) 0.2 Neutrophils % (Manual) 26 L Band Neutrophils % Lymphocytes % (Manual) 49 H Reactive Lymphs % 18 H Monocytes % (Manual) 5 Eosinophils % (Manual) 1 Basophils % (Manual) 1 Myelocytes % Platelet Estimate Normal Hypochromasia (manual) Poikilocytosis (manual Anisocytosis (manual) Kya Cells PT INR APTT Fibrinogen Fibrin Degrad Products Fibrin Degrad Prod, Qt D-Dimer, Quantitative Puncture Site pCO2 pO2 HCO3 ABG pH ABG Total CO2 ABG O2 Saturation ABG Base Excess ABG Hemoglobin ABG Carboxyhemoglobin POC ABG HHb (Measured) ABG Methemoglobin Bryce Test ABG Potassium A-a O2 Difference Respiratory Index Hgb O2 Saturation Glucose Lactate Vent Mode Mechanical Rate FiO2 Tidal Volume PEEP Crit Value Called To Crit Value Called By Crit Value Read Back Blood Gas Notified Time Sodium 147 Potassium 4.0 Chloride 107 Carbon Dioxide 16 L Anion Gap 28 H BUN 15 Creatinine 1.2 Est GFR ( Amer) 59 Est GFR (Non-Af Amer) 48 POC Glucose (mg/dL) 288 H Random Glucose 230 H Calcium 9.4 Phosphorus Magnesium Total Bilirubin 0.3 AST 185 H ALT 116 H Alkaline Phosphatase 93 Total Creatine Kinase 50 CK-MB (Mass) 0.44 Troponin I 0.0720 Total Protein 6.7 Albumin 3.7 Globulin 3.0 Albumin/Globulin Ratio 1.3 Amylase 171 H Lipase 207 Arterial Blood Potassium Urine Color Urine Clarity Urine pH Ur Specific [place] Urine Protein Urine Glucose (UA) Urine Ketones Urine Blood Urine Nitrate Urine Bilirubin Urine Urobilinogen Ur Leukocyte Esterase Urine WBC (Auto) Urine RBC (Auto) Urine HCG, Qual Urine Opiates Screen Urine Methadone Screen Ur Barbiturates Screen Ur Phencyclidine Scrn Ur Amphetamines Screen U Benzodiazepines Scrn U Oth Cocaine Metabols U Cannabinoids Screen 07/27/18 07/27/18 07/27/18 02:19 02:55 03:19 WBC RBC Hgb Hct MCV MCH MCHC RDW Plt Count MPV Neut % (Auto) Lymph % (Auto) [place] % (Auto) Eos % (Auto) Baso % (Auto) Neut # (Auto) Lymph # (Auto) [place] # (Auto) Eos # (Auto) Baso # (Auto) Neutrophils % (Manual) Band Neutrophils % Lymphocytes % (Manual) Reactive Lymphs % Monocytes % (Manual) Eosinophils % (Manual) Basophils % (Manual) Myelocytes % Platelet Estimate Hypochromasia (manual) Poikilocytosis (manual Anisocytosis (manual) Kya Cells PT 11.4 INR 1.0 APTT 31 Fibrinogen Fibrin Degrad Products Fibrin Degrad Prod, Qt D-Dimer, Quantitative Cancelled Puncture Site L femoral R bra pCO2 103 H* 71 H* pO2 29 L* 491 H HCO3 ABG pH < 6.80 L* < 6.80 L* ABG Total CO2 ABG O2 Saturation 28.2 L 99.8 H ABG Base Excess ABG Hemoglobin 9.4 L ABG Carboxyhemoglobin 0.5 POC ABG HHb (Measured) 0.2 ABG Methemoglobin 0.6 Bryce Test Na Na ABG Potassium 4.7 A-a O2 Difference 555.0 133.0 Respiratory Index 19.1 0.3 Hgb O2 Saturation 98.7 H Glucose 281 H Lactate 17.6 H* Vent Mode Prvc Mechanical Rate 16 FiO2 100.0 100.0 Tidal Volume 450 PEEP 5 Crit Value Called To Dr aga yung Crit Value Called By Rachel love rt Rachel love rt Crit Value Read Back Y Y Blood Gas Notified Time 300 322 Sodium 146.0 Potassium Chloride 110.0 H Carbon Dioxide Anion Gap BUN Creatinine Est GFR ( Amer) Est GFR (Non-Af Amer) POC Glucose (mg/dL) Random Glucose Calcium Phosphorus Magnesium Total Bilirubin AST ALT Alkaline Phosphatase Total Creatine Kinase CK-MB (Mass) Troponin I Total Protein Albumin Globulin Albumin/Globulin Ratio Amylase Lipase Arterial Blood Potassium 4.7 Urine Color Urine Clarity Urine pH Ur Specific [place] Urine Protein Urine Glucose (UA) Urine Ketones Urine Blood Urine Nitrate Urine Bilirubin Urine Urobilinogen Ur Leukocyte Esterase Urine WBC (Auto) Urine RBC (Auto) Urine HCG, Qual Urine Opiates Screen Urine Methadone Screen Ur Barbiturates Screen Ur Phencyclidine Scrn Ur Amphetamines Screen U Benzodiazepines Scrn U Oth Cocaine Metabols U Cannabinoids Screen 07/27/18 07/27/18 07/27/18 03:51 04:01 04:02 WBC RBC Hgb Hct MCV MCH MCHC RDW Plt Count MPV Neut % (Auto) Lymph % (Auto) [place] % (Auto) Eos % (Auto) Baso % (Auto) Neut # (Auto) Lymph # (Auto) [place] # (Auto) Eos # (Auto) Baso # (Auto) Neutrophils % (Manual) Band Neutrophils % Lymphocytes % (Manual) Reactive Lymphs % Monocytes % (Manual) Eosinophils % (Manual) Basophils % (Manual) Myelocytes % Platelet Estimate Hypochromasia (manual) Poikilocytosis (manual Anisocytosis (manual) [place] Cells PT INR APTT Fibrinogen Fibrin Degrad Products Fibrin Degrad Prod, Qt D-Dimer, Quantitative Puncture Site pCO2 pO2 HCO3 ABG pH ABG Total CO2 ABG O2 Saturation ABG Base Excess ABG Hemoglobin ABG Carboxyhemoglobin POC ABG HHb (Measured) ABG Methemoglobin Bryce Test ABG Potassium A-a O2 Difference Respiratory Index Hgb O2 Saturation Glucose Lactate Vent Mode Mechanical Rate FiO2 Tidal Volume PEEP Crit Value Called To Crit Value Called By Crit Value Read Back Blood Gas Notified Time Sodium Potassium Chloride Carbon Dioxide Anion Gap BUN Creatinine Est GFR ( Amer) Est GFR (Non-Af Amer) POC Glucose (mg/dL) Random Glucose Calcium Phosphorus Magnesium Total Bilirubin AST ALT Alkaline Phosphatase Total Creatine Kinase CK-MB (Mass) Troponin I Total Protein Albumin Globulin Albumin/Globulin Ratio Amylase Lipase Arterial Blood Potassium Urine Color Red Urine Clarity Turbid Urine pH 5.0 Ur Specific [place] 1.027 Urine Protein 2+ H Urine Glucose (UA) Normal Urine Ketones Negative Urine Blood 3+ H Urine Nitrate Negative Urine Bilirubin Negative Urine Urobilinogen Normal Ur Leukocyte Esterase Neg Urine WBC (Auto) 24 H Urine RBC (Auto) 70562 H Urine HCG, Qual Negative Urine Opiates Screen Negative Urine Methadone Screen Negative Ur Barbiturates Screen Negative Ur Phencyclidine Scrn Negative Ur Amphetamines Screen Negative U Benzodiazepines Scrn Negative U Oth Cocaine Metabols Negative U Cannabinoids Screen Negative 07/27/18 07/27/18 07/27/18 04:03 06:39 08:17 WBC 20.1 H RBC 3.64 L Hgb 9.5 L D Hct 29.5 L MCV 80.9 L MCH 26.0 L MCHC 32.1 L RDW 13.5 Plt Count 185 MPV 7.6 Neut % (Auto) 88.9 H Lymph % (Auto) 9.5 L [place] % (Auto) 0.9 Eos % (Auto) 0.4 Baso % (Auto) 0.3 Neut # (Auto) 17.9 H Lymph # (Auto) 1.9 [place] # (Auto) 0.2 Eos # (Auto) 0.1 Baso # (Auto) 0.1 Neutrophils % (Manual) 74 Band Neutrophils % 13 H* Lymphocytes % (Manual) 11 L Reactive Lymphs % Monocytes % (Manual) 1 Eosinophils % (Manual) Basophils % (Manual) Myelocytes % 1 H Platelet Estimate Normal Hypochromasia (manual) Slight Poikilocytosis (manual Slight Anisocytosis (manual) Slight Kya Cells Slight PT INR APTT Fibrinogen Fibrin Degrad Products Fibrin Degrad Prod, Qt D-Dimer, Quantitative > 5250 H Puncture Site R rad pCO2 81 H* pO2 54 L HCO3 13.7 L ABG pH 6.99 L* ABG Total CO2 22.0 ABG O2 Saturation 85.8 L ABG Base Excess -13.3 L ABG Hemoglobin ABG Carboxyhemoglobin POC ABG HHb (Measured) ABG Methemoglobin Bryce Test Pos ABG Potassium 3.8 A-a O2 Difference 558.0 Respiratory Index 10.3 Hgb O2 Saturation Glucose 251 H Lactate 5.8 H* Vent Mode Prvc Mechanical Rate 20 FiO2 100.0 Tidal Volume 450 PEEP 5 Crit Value Called To Nito swan rn Crit Value Called By Rachel love rt Crit Value Read Back Y Blood Gas Notified Time 700 Sodium 143.0 Potassium Chloride 113.0 H Carbon Dioxide Anion Gap BUN Creatinine Est GFR ( Amer) Est GFR (Non-Af Amer) POC Glucose (mg/dL) Random Glucose Calcium Phosphorus Magnesium Total Bilirubin AST ALT Alkaline Phosphatase Total Creatine Kinase CK-MB (Mass) Troponin I Total Protein Albumin Globulin Albumin/Globulin Ratio Amylase Lipase Arterial Blood Potassium 3.8 Urine Color Urine Clarity Urine pH Ur Specific [place] Urine Protein Urine Glucose (UA) Urine Ketones Urine Blood Urine Nitrate Urine Bilirubin Urine Urobilinogen Ur Leukocyte Esterase Urine WBC (Auto) Urine RBC (Auto) Urine HCG, Qual Urine Opiates Screen Urine Methadone Screen Ur Barbiturates Screen Ur Phencyclidine Scrn Ur Amphetamines Screen U Benzodiazepines Scrn U Oth Cocaine Metabols U Cannabinoids Screen 07/27/18 07/27/18 07/27/18 08:17 09:35 10:17 WBC RBC Hgb Hct MCV MCH MCHC RDW Plt Count MPV Neut % (Auto) Lymph % (Auto) [place] % (Auto) Eos % (Auto) Baso % (Auto) Neut # (Auto) Lymph # (Auto) [place] # (Auto) Eos # (Auto) Baso # (Auto) Neutrophils % (Manual) Band Neutrophils % Lymphocytes % (Manual) Reactive Lymphs % Monocytes % (Manual) Eosinophils % (Manual) Basophils % (Manual) Myelocytes % Platelet Estimate Hypochromasia (manual) Poikilocytosis (manual Anisocytosis (manual) Kya Cells PT Cancelled INR Cancelled APTT Cancelled Fibrinogen Cancelled Fibrin Degrad Products Cancelled Positive H Fibrin Degrad Prod, Qt Cancelled >40 H D-Dimer, Quantitative Puncture Site pCO2 pO2 HCO3 ABG pH ABG Total CO2 ABG O2 Saturation ABG Base Excess ABG Hemoglobin ABG Carboxyhemoglobin POC ABG HHb (Measured) ABG Methemoglobin Bryce Test ABG Potassium A-a O2 Difference Respiratory Index Hgb O2 Saturation Glucose Lactate Vent Mode Mechanical Rate FiO2 Tidal Volume PEEP Crit Value Called To Crit Value Called By Crit Value Read Back Blood Gas Notified Time Sodium 149 H Potassium 3.4 L Chloride 110 H Carbon Dioxide 29 Anion Gap 13 BUN 20 H Creatinine 1.3 H Est GFR ( Amer) 53 Est GFR (Non-Af Amer) 44 POC Glucose (mg/dL) Random Glucose 186 H Calcium 6.5 L Phosphorus 8.6 H Magnesium 2.1 Total Bilirubin 0.5 AST 693 H D ALT 378 H D Alkaline Phosphatase 192 H D Total Creatine Kinase CK-MB (Mass) Troponin I Total Protein 4.5 L Albumin 2.2 L D Globulin 2.2 Albumin/Globulin Ratio 1.0 Amylase Lipase Arterial Blood Potassium Urine Color Urine Clarity Urine pH Ur Specific [place] Urine Protein Urine Glucose (UA) Urine Ketones Urine Blood Urine Nitrate Urine Bilirubin Urine Urobilinogen Ur Leukocyte Esterase Urine WBC (Auto) Urine RBC (Auto) Urine HCG, Qual Urine Opiates Screen Urine Methadone Screen Ur Barbiturates Screen Ur Phencyclidine Scrn Ur Amphetamines Screen U Benzodiazepines Scrn U Oth Cocaine Metabols U Cannabinoids Screen Assessment & Plan - Assessment and Plan (Free Text) Assessment: This is a 48 year old female with PMH of anxiety presenting to the ED s/p witnessed syncopal episode after return from [place] on bus. Plan: B/L P.E. -will not do EKOS at this time due unknown status of prothrombotic state -CTA showed diffuse bilateral pulmonary emboli of B/L central and segmental pulmonary arteries, pulmonary venous congestion compatible with CHF vs left basilar atelectasis vs pulmonary infarct -D-dimer > 5250 -s/p respiratory arrest, ACLS performed, currently intubated -continue heparin drip, tPA contraindicated due to concern for bleeding -LE duplex final read pending Afib -EKG on admission showed afib with RVR at 146bpm, uncertain if new finding -echo pending Further recommendations per Dr. Ba
[2018-07-27 11:31] LABS: FIBRINOGEN 67 mg/dL (200-400)
--- NOTE | 2018-07-27 12:35 | CT ---
Date of service: 07/27/2018 PROCEDURE: CT Chest with contrast (Pulmonary Angiogram) HISTORY: Resp. arrest/ Chest pain COMPARISON: None available. TECHNIQUE: Axial computed tomography images were obtained of the chest in the pulmonary arterial phase of enhancement. Coronal and sagittal reformatted images were created and reviewed. Intravenous contrast dose: 100 cc Visipaque 320 Radiation dose: Total exam DLP = 455.53 mGy-cm. This CT exam was performed using one or more of the following dose reduction techniques: Automated exposure control, adjustment of the mA and/or kV according to patient size, and/or use of iterative reconstruction technique. Examination is limited due to suboptimal injection-scan time mismatch. Study is further limited the the the the the a by streak and beam hardening artifact arising from the upper extremities which have not been moved from the field of view. FINDINGS: In situ ETT, the tip of which lies approximately the 3.2 cm above enrrique. PULMONARY ARTERIES: There are pulmonary emboli seen within the distal left main pulmonary artery extending into, and occluding the left lower lobe branch and proximal segmental branches. Additionally, there are filling defects also seen in the distal right mainstem bronchus with partial occlusion of proximal segmental and said segmental branches of the right lower lobe pulmonary arteries. There are smaller on emboli within proximal subsegmental branches of both upper lobes and middle lobe as well. The pulmonary trunk measures approximately 2.3 cm; rule underlying mild pulmonary arterial hypertension... AORTA: No acute findings. No thoracic aortic aneurysm ascending thoracic aorta measures approximately 2.0 cm and descending thoracic aorta measures approximately 1.5 cm LUNGS: There appears to be a pulmonary venous congestive changes with patchy ground-glass opacities... Localized atelectasis felt be present within the left posterior sulcus of. PLEURAL SPACES: Unremarkable. No effusion or pneumothorax. HEART: Heart is enlarged.. There appears to be a small amount of fluid within superior pericardial recess with fluid adjacent to the ascending thoracic aorta and SVC and as well as within the cleft between the ascending thoracic aorta and pulmonary trunk. LYMPH NODES: No lymphadenopathy.. The mid to distal trachea and enrrique as well as mainstem bronchi appear compressed and narrowed. BONES, CHEST WALL: Multilevel degenerative spondylosis of the thoracic spine. Bilateral breast implants are present. OTHER FINDINGS: Small hiatal hernia. IMPRESSION: Extensive bilateral lower lobe proximal pulmonary emboli distal on margins of the right and left pulmonary arteries, lower lobe of branches and proximal segmental branches bilaterally. There are also smaller emboli within segmental/subsegmental branches of the upper lobes and middle lobe. Cardiomegaly. There also appears to be small amount of fluid within the upper mediastinum as described Questionable pulmonary venous congestive changes with localized atelectasis left lower lobe
--- NOTE | 2018-07-27 12:50 | CP.PCM.PN ---
Subjective - Date & Time of Evaluation Date of Evaluation: 07/27/18 Time of Evaluation: 08:30 - Subjective Subjective: Earlier this morning I spoke with the patient's family member Darshan at bedside. I and explained to family that at this moment the patient's status was very serious. To help family member understand I jong out a diagram of the heart and lungs to explain the situation with the bilateral PE. Further complication is the possibility of DIC/sepsis as well. Family explains that he is not sure if there is a history of blood clots in the family. Patient is not a smoker. Does use control, however not clear what type. He explains that patient came to [place] for a short period of time and about month ago was having episo jaziel of "anxiety" and at that time possible shortness of breath. Then early in the morning hours she synchronized and collapsed in the lobby of their apartment and then regained consciousness. EMS was called and she was brought to the ER where unfortunately she was noticed to have dangerous cardiac arrhythmia and coded twice and was intubated. CT scan revealed large bilateral PE At this time the patient remains intubated and they were getting ready to start a second presser medication due to the ongoing low BP. There is elevated bandemia noted as well and elevated WBC. Blood, urine cultures collected. She was on heparin ggt, however given concern for possible DIC this was temporarily held off. Prognosis as I explained to the family member was very critical at this moment. Objective - Vital Signs/Intake and Output Vital Signs (last 24 hours): Temp Pulse Resp BP Pulse Ox 98.2 F 147 H 22 107/47 L 90 L 07/27/18 04:35 07/27/18 07:39 07/27/18 07:39 07/27/18 11:37 07/27/18 07:39 Intake and Output: 07/27/18 07/27/18 06:59 18:59 Intake Total 105 355 Output Total 70 30 Balance 35 325 - Medications Medications: Current Medications Heparin Sodium/Sodium Chloride (Heparin 28437 Units/250ml 1/2 Normal Saline) 25,000 units in 250 mls @ 12.247 mls/hr IV .[id number] PRN; Protocol PRN Reason: ADJUST RATE PER PROTOCOL Last Titration: 07/27/18 09:21 Dose: 0 units/kg/hr, 0 mls/hr Norepinephrine Bitartrate 4 mg (/ Sodium Chloride) 250 mls @ 15 mls/hr IV .[id number] PRN; Protocol PRN Reason: TITRATE PER MD ORDER Last Titration: 07/27/18 11:51 Dose: 15 mcg/min, 56.25 mls/hr Sodium Chloride (Sodium Chloride 0.9%) 1,000 mls @ 200 mls/hr IV .Q5H KACY Stop: 07/27/18 13:29 Last Admin: 07/27/18 09:20 Dose: 200 mls/hr Cisatracurium Besylate 100 mg/ (Dextrose) 250 mls @ 32.66 mls/hr IV .Q7H40M PRN; Protocol PRN Reason: Agitation Last Titration: 07/27/18 11:53 Dose: 1 mcg/kg/min, 10.89 mls/hr Piperacillin Sod/Tazobactam (Sod 3.375 gm/ Sodium Chloride) 100 mls @ 200 mls/hr IVPB Q6H KACY; Protocol Last Admin: 07/27/18 10:25 Dose: 200 mls/hr Vancomycin HCl 1,000 mg/ (Sodium Chloride) 250 mls @ 166.6 mls/hr IVPB Q12H KACY; Protocol Last Admin: 07/27/18 10:07 Dose: 166.6 mls/hr Phenylephrine HCl 30 mg/ (Sodium Chloride) 250 mls @ 10 mls/hr IV .Q24H PRN; Protocol PRN Reason: TITRATE PER MD ORDER Last Admin: 07/27/18 10:47 Dose: 40 mcg/min, 20 mls/hr Vasopressin 40 units/ Sodium (Chloride) 40 mls @ 1.2 mls/hr IV .Q24H KACY; Protocol Last Admin: 07/27/18 11:37 Dose: 0.02 units/min, 1.2 mls/hr Lorazepam (Ativan) 2 mg IVP Q4 PRN PRN Reason: Anxiety Methylprednisolone (Solu-Medrol) 40 mg IVP TID [facility] Last Admin: 07/27/18 10:25 Dose: 40 mg Pantoprazole Sodium (Protonix Inj) 40 mg IVP Q12 KACY Last Admin: 07/27/18 10:25 Dose: 40 mg - Labs Labs: 07/27/18 08:17 07/27/18 08:17 PT > 320.0 SECONDS (9.7-12.2) H D 07/27/18 10:18 INR > 10.0 D 07/27/18 10:18 APTT > 400 SECONDS (21-34) H* D 07/27/18 10:18 - Constitutional Appears: Toxic, In Acute Distress, Chronically Ill - ENT Exam ENT Exam: Mucous Membranes Moist - Respiratory Exam Respiratory Exam: Decreased Breath Sounds Additional comments: Currently intubated - Cardiovascular Exam Cardiovascular Exam: Tachycardia - GI/Abdominal Exam GI & Abdominal Exam: Soft. absent: Firm, Guarding, Rigid, Tenderness - Neurological Exam Neurological Exam: Altered - Skin Skin Exam: Normal Color, Warm Assessment and Plan - Assessment and Plan (Free Text) Assessment: A/P: This is a 48 year old female patient who unfortunately has bilateral large PE and currently is intubated at this time. Per family members, the patient has a past medical history of anxiety who presented with worsening shortness of breath and syncope. Acute Hypoxic Respiratory Failure 2/2 Bilateral PE 07/27: Spoke with family member Darshan at bedside and he understands prognosis is poor. At this time the patient remains intubated with minimal reflexes illicited on exam. She is now on two pressor medications at this time Pending lower extremity dopplers and also a 2 decho as well. She was started on a heparin ggt, however due to potential DIC this is temporarily on hold. Intubated, s/p respiratory arrest x 2 -ABG: pH <6.80, PO2 29, PCO2 103, Lactate 17.6 CT head showed left forhead swelling CTA chest showed diffuse bilateral pulmonary emboli involving bilateral central and segmental pulmonary arteries, cardiac silhouette enlarged, there is evidence of pulmonary venous congestion compatible with CHF, left basilar atelectasis vs pulmonary infarct (official report pending) Atrial Fibrillation with RVR 07/27: Likley secondary to the bilateral PEs, they asked IR to evaluate however she was not a candidate for direct cathter thrombolysis Initial EKG showed afib with rate of 146 bpm Patient on heparin drip Echo is pending Sepsis / DIC / Abdominal Pain 07/27: Elevated WBC, bandemia, and hypothermic Antibiotics started on Zosyn and Vancomycin Also blood culture, urine culture, and IVF boluses. -CT abd/pelvis showed periportal edema and pericholecystic/peripancreatic fluid, probably related to fluid overload, exclude hepatocellular disease. Severe enteritis. Infectious and inflammatory etiologies are considered. Large amount of fecal material is seen throughout colon (official report pending) Hematuria -Obed blood noted in brady -UA and urine culture ordered
--- NOTE | 2018-07-27 13:18 | CT ---
Date of service: 07/27/2018 PROCEDURE: CT Abdomen and Pelvis with Oral contrast. HISTORY: Cardiac arrest, epigastric pain COMPARISON: Correlation made with concurrent CT scan of the chest. TECHNIQUE: Contiguous axial images of the abdomen and pelvis performed following intravenous injection of approximately 100 cc Visipaque 320 coronal and Sagittal reformats generated. This CT exam was performed using one or more of the following dose reduction techniques: Automated exposure control, adjustment of the mA and/or kV according to patient size, and/or use of iterative reconstruction technique. Radiation dose: Total exam DLP = 1103.85 mGy-cm. FINDINGS: The study is limited due to streak and beam hardening artifact arising from the upper extremities which have not been moved from the field of view. Motion artifact further limits the examination LOWER THORAX: Localized area of atelectasis left posterior sulcus. Heart appears enlarged. Small hiatal hernia. LIVER: Liver is enlarged measuring over 21 cm in CC dimension.. Mild central intrahepatic biliary ductal dilatation GALLBLADDER AND BILE DUCTS: There appears to be mild periportal cholecystic fluid with questionable gallbladder wall thickening intraluminal gallbladder calculus. Follow-up gallbladder ultrasound recommended. PANCREAS: The pancreas is poorly delineated on this study due to motion and streak artifact there appears to be fluid surrounding partially surrounding the pancreas as well. Correlation with serum amylase/lipase recommended. The SPLEEN: Spleen exhibits relatively normal size. ADRENALS: No obvious adrenal lesion KIDNEYS AND URETERS: The kidneys demonstrate symmetric nephrograms. No evidence of nephrolithiasis or hydronephrosis. BLADDER: Urinary bladder is collapsed about an in situ unclamped Becerril catheter. Small amount of intraluminal urinary bladder air with thickening of the bladder wall felt to be due to collapse however correlation with urinalysis to exclude cystitis. REPRODUCTIVE: Unremarkable as visualized APPENDIX: Normal-appearing appendix BOWEL: Evaluation of the bowel is limited due to the lack multiple fluid-filled minimally distended loops of small bowel are present. Findings may represent ileus. Rule out enteritis. There is a moderately large amount of stool within the sigmoid and rectum consistent with localized fecal retention/constipation.. BOWEL: PERITONEUM: As above. No gross free intraperitoneal air. LYMPH NODES: Unremarkable. No enlarged lymph nodes. VASCULATURE: Unremarkable. No aortic aneurysm. BONES: Mild multilevel degenerative spondylosis of the thoracic and lumbar spine. Minor chronic anterior wedge deformities of a few lower thoracic segments. OTHER FINDINGS: Bilateral breast implants again noted IMPRESSION: Limited study due to streak and beam hardening artifact arising from the upper extremities which have not been moved from the field of view. Motion artifact further limits the examination. Small focal area of atelectasis left posterior sulcus. Cardiomegaly. There appears to be pericholecystic fluid as well as fluid about the with mild intrahepatic biliary ductal dilatation. The correlation with serum amylase lipase. Questionable intraluminal gallbladder calculi. Follow-up ultrasound of the gallbladder recommended. Findings suggest mild ileus. Questionable enteritis. Large amount of stool within the rectum and sigmoid suggesting fecal retention/constipation. Apparent postoperative changes of the stomach. Clinical correlation with surgical history.
--- NOTE | 2018-07-27 13:19 | RAD ---
Date of service: 07/27/2018 HISTORY: sp TLC placement COMPARISON: 07/27/2018. FINDINGS: Endotracheal tube terminates in the mid trachea. The left IJV line terminates in the SVC and its tip is directed cranially. LUNGS: There are low lung volumes. There is interval opacifications in the right medial apex and upper lobe. The left lung is clear PLEURA: No significant pleural effusion identified, no pneumothorax apparent. CARDIOVASCULAR: Normal. OSSEOUS STRUCTURES: No significant abnormalities. VISUALIZED UPPER ABDOMEN: Normal. OTHER FINDINGS: None. IMPRESSION: Left IJV line terminates in the SVC with its tip directed cranially. Opacity in the right medial apex and upper lobes could be related to SVC shadow however atelectasis/airspace disease cannot be excluded follow-up is advised. No pneumothorax.
[2018-07-27 13:34] LABS: VENOUS BLOOD GAS BASE EXCESS -12.3 mmol/L (0.0-2.0); VENOUS BLOOD GAS PCO2 77 mmHg (40-60); VENOUS BLOOD GAS PO2 30 mm/Hg (30-55); VENOUS BLOOD PH 7.02 (7.32-7.43)
[2018-07-27 14:34] LABS: PROTHROMBIN TIME > 320.0 SECONDS (9.7-12.2)
[2018-07-27 14:35] LABS: INR > 10.0; PARTIAL THROMBOPLASTIN TIME > 400 SECONDS (21-34)
[2018-07-27] MEDS: Sodium Chloride 0.9% 1,000 ML IV SCH ×2 (15:00→20:00)
[2018-07-27] MEDS: Dexmedetomidine Hydrochloride 200 MCG in Sodium Chloride 0.9% 48 ML IV PRN ×2 (16:43→19:35)
[2018-07-27 18:15] LABS: VENOUS BLOOD GAS BASE EXCESS -10.2 mmol/L (0.0-2.0); VENOUS BLOOD GAS PCO2 45 mmHg (40-60); VENOUS BLOOD GAS PO2 60 mm/Hg (30-55)
[2018-07-27] MEDS ORDERED: Sodium Chloride 0.9% 500 ML IV ONE (18:21)
[2018-07-27] MEDS ORDERED: Albumin Human 25% (12.5 gm/50 ml) IV STA (18:21)
--- NOTE | 2018-07-27 18:26 | CP.CCUPN ---
CCU Subjective - Physician Review Events Since Last Encounter (Free Text): 07/27/18 18:26 Patient is a 48-year-old female admitted with a cardiac arrest, resuscitated, cardiac arrest most likely secondary to acute massive pulmonary embolism. Patient is intubated. During the evaluation this morning patient was having significant bleeding, bleeding over the puncture sites of the arteries, hematuria, bleeding over the venous access sites, hamartoma over the neck and also hamartoma on the left forehead Because of the significant bleeding it was decided to hold heparin drip temporarily, and monitor the PT PTT. Labs showing evidence of decreased the fibrinogen level, increased the FDP him a also elevated PT and PTT, which was being checked up. Patient also severely hypotensive, hypoxic, slowly some improvement in the oxygenation noted Patient is still on 100% FiO2 6 PM labs ordered. Will resume the heparin without any loading dose. Repeat the venous blood gas analysis showing evidence of worsening lactic acidosis. But improvement in the pH and PaO2 noted in the venous side. Patient has a massive diarrhea, at least 3-4 episodes so far. Workup is pending for diarrhea. We'll start Flagyl also. Hematology evaluation. Overall prognosis is very poor Critical condition. Family explained. Patient's family who is currently traveling tonight to [facility] Overall condition is critical. CCU Objective - Vital Signs / Intake & Output Vital Signs (Last 4 hours): Vital Signs Pulse Resp BP Pulse Ox 07/27/18 14:37 142 H 24 93/37 L 98 Intake and Output (Last 8hrs): Intake & Output 07/27/18 07/27/18 07/27/18 06:59 14:59 22:59 Intake Total 105 477 155 Output Total 70 30 Balance 35 447 155 Weight 160 lb Intake: IV 402 155 Intake, IV Amount 105 75 Right Antecubital 105 75 Oral 0 0 Output: Urine 70 30 Urethral (Becerril) 70 30 Other: Voiding Method Indwelling Catheter # Bowel Movements 1 - Medications Active Medications: Active Medications Generic Name Dose Route Start Last Admin Trade Name Freq PRN Reason Stop Dose Admin Heparin Sodium/Sodium Chloride 25,000 units in 250 mls @ 12.247 mls/hr 07/27/18 07:09 07/27/18 09:21 Heparin 50334 Units/250ml 1/2 Normal Saline IV 0 units/kg/hr .[id number] PRN 0 mls/hr ADJUST RATE PER PROTOCOL Titration Protocol 16.875 UNITS/KG/HR Norepinephrine Bitartrate 4 mg 250 mls @ 15 mls/hr 07/27/18 07:39 07/27/18 14:11 / Sodium Chloride IV 0 mcg/min .[id number] PRN 0 mls/hr TITRATE PER MD ORDER Titration Protocol 4 MCG/MIN Cisatracurium Besylate 100 mg/ 250 mls @ 32.66 mls/hr 07/27/18 08:24 07/27/18 14:00 Dextrose IV 0 mcg/kg/min .[id number] PRN 0 mls/hr Agitation Titration Protocol 3 MCG/KG/MIN Piperacillin Sod/Tazobactam 100 mls @ 200 mls/hr 07/27/18 10:00 07/27/18 16:46 Sod 3.375 gm/ Sodium Chloride IVPB 200 mls/hr Q6H KACY Administration Protocol Vancomycin HCl 1,000 mg/ 250 mls @ 166.6 mls/hr 07/27/18 10:30 07/27/18 10:07 Sodium Chloride IVPB 166.6 mls/hr Q12H KACY Administration Protocol Phenylephrine HCl 30 mg/ 250 mls @ 10 mls/hr 07/27/18 09:40 07/27/18 17:29 Sodium Chloride IV 60 mcg/min .Q24H PRN 30 mls/hr TITRATE PER MD ORDER Titration Protocol 20 MCG/MIN Vasopressin 40 units/ Sodium 40 mls @ 1.2 mls/hr 07/27/18 11:00 07/27/18 15:00 Chloride IV 0.04 units/min .Q24H KACY 2.4 mls/hr Titration Protocol 0.02 UNITS/MIN Sodium Chloride 1,000 mls @ 200 mls/hr 07/27/18 15:30 07/27/18 15:00 Sodium Chloride 0.9% IV 200 mls/hr .Q5H KACY Administration Dexmedetomidine HCl 200 mcg/ 50 mls @ 3.63 mls/hr 07/27/18 16:08 07/27/18 17:19 Sodium Chloride IV 1 mcg/kg/hr TITR PRN 18.14 mls/hr Sedation Titration Protocol 0.2 MCG/KG/HR Metronidazole 500 mg in 100 mls @ 100 mls/hr 07/27/18 18:30 Flagyl IVPB Q8H [facility] Protocol Sodium Chloride 500 mls @ 1,000 mls/hr 07/27/18 18:21 Sodium Chloride 0.9% IV 07/27/18 18:50 .Q30M ONE Lorazepam 2 mg 07/27/18 08:25 Ativan IVP Q4 PRN Anxiety Methylprednisolone 40 mg 07/27/18 10:00 07/27/18 17:24 Solu-Medrol IVP 40 mg TID KACY Administration Pantoprazole Sodium 40 mg 07/27/18 10:00 07/27/18 10:25 Protonix Inj IVP 40 mg Q12 KACY Administration - Patient Studies Lab Studies: Lab Studies 07/27/18 07/27/18 07/27/18 Range/Units 18:11 13:42 13:29 WBC (4.8-10.8) K/uL RBC (3.80-5.20) Mil/uL Hgb (11.0-16.0) g/dL Hct (34.0-47.0) % MCV (81.0-99.0) fL MCH (27.0-31.0) pg MCHC (33.0-37.0) g/dL RDW (11.5-14.5) % Plt Count (130-400) K/uL MPV (7.2-11.7) fL Neut % (Auto) (50.0-75.0) % Lymph % (Auto) (20.0-40.0) % [place] % (Auto) (0.0-10.0) % Eos % (Auto) (0.0-4.0) % Baso % (Auto) (0.0-2.0) % Neut # (Auto) (1.8-7.0) K/uL Lymph # (Auto) (1.0-4.3) K/uL [place] # (Auto) (0.0-0.8) K/uL Eos # (Auto) (0.0-0.7) K/uL Baso # (Auto) (0.0-0.2) K/uL Neutrophils % (Manual) (50-75) % Band Neutrophils % (0-2) % Lymphocytes % (Manual) (20-40) % Reactive Lymphs % (0-0) % Monocytes % (Manual) (0-10) % Eosinophils % (Manual) (0-4) % Basophils % (Manual) (0-2) % Myelocytes % (0-0) % Platelet Estimate (NORMAL) Hypochromasia (manual) Poikilocytosis (manual Anisocytosis (manual) [place] Cells PT > 320.0 H (9.7-12.2) SECONDS INR > 10.0 APTT > 400 H* (21-34) SECONDS Fibrinogen Fibrin Degrad Products Fibrin Degrad Prod, Qt D-Dimer, Quantitative Puncture Site pCO2 (35-45) mm/Hg pO2 60 H 30 (80-100) mm/Hg HCO3 (21-28) mmol/L ABG pH (7.35-7.45) ABG Total CO2 (22-28) mmol/L ABG O2 Saturation (95-98) % ABG Base Excess (-2.0-3.0) mmol/L ABG Hemoglobin (11.7-17.4) g/dL ABG Carboxyhemoglobin (0.5-1.5) % POC ABG HHb (Measured) (0.0-5.0) % ABG Methemoglobin (0.0-3.0) % Bryce Test ABG Potassium (3.6-5.2) mmol/L VBG pH 7.20 L 7.02 L* (7.32-7.43) VBG pCO2 45 77 H* (40-60) mmHg VBG HCO3 16.6 13.5 mmol/L VBG Total CO2 19.0 L 22.3 (22-28) mmol/L VBG O2 Sat (Calc) 93.2 H 58.5 (40-65) % VBG Base Excess -10.2 L -12.3 L (0.0-2.0) mmol/L VBG Potassium 3.9 2.4 L* (3.6-5.2) mmol/L A-a O2 Difference mm/Hg Respiratory Index Hgb O2 Saturation (95.0-98.0) % Glucose 140 H 107 H (65-105) mg/dl Lactate 6.1 H* 4.1 H* (0.7-2.1) mmol/L Vent Mode Mechanical Rate FiO2 100.0 % Tidal Volume PEEP 5 Crit Value Called To Narinder merritt Crit Value Called By Rinku holliday [employer] tech Crit Value Read Back Y Y Blood Gas Notified Time 1814 1335 Sodium 149.0 H 152.0 H (132-148) mmol/L Potassium (3.6-5.2) mmol/L Chloride 121.0 H 124.0 H (98-107) mmol/L Carbon Dioxide (22-30) mmol/L Anion Gap (10-20) BUN (7-17) mg/dL Creatinine (0.7-1.2) mg/dL Est GFR ( Amer) Est GFR (Non-Af Amer) POC Glucose (mg/dL) (65-110) mg/dL Random Glucose (65-105) mg/dL Calcium (8.6-10.4) mg/dl Phosphorus (2.5-4.5) mg/dL Magnesium (1.6-2.3) mg/dL Total Bilirubin (0.2-1.3) mg/dL AST (14-36) U/L ALT (9-52) U/L Alkaline Phosphatase (38-126) U/L Total Creatine Kinase (30-135) U/L CK-MB (Mass) (0.0-3.38) ng/mL Troponin I (0.00-0.120) ng/mL Total Protein (6.3-8.3) g/dL Albumin (3.5-5.0) g/dL Globulin (2.2-3.9) gm/dL Albumin/Globulin Ratio (1.0-2.1) Amylase (30-110) U/L Lipase (23-300) U/L Procalcitonin (0.19-0.49) NG/ML Arterial Blood Potassium (3.6-5.2) mmol/L Venous Blood Potassium 3.9 2.4 L* (3.6-5.2) mmol/L Urine Color (YELLOW) Urine Clarity (Clear) Urine pH (5.0-8.0) Ur Specific [place] (1.003-1.030) Urine Protein (NEGATIVE) mg/dL Urine Glucose (UA) (Normal) mg/dL Urine Ketones (NEGATIVE) mg/dL Urine Blood (NEGATIVE) Urine Nitrate (NEGATIVE) Urine Bilirubin (NEGATIVE) Urine Urobilinogen (0.2-1.0) mg/dL Ur Leukocyte Esterase (Negative) Jessica/uL Urine WBC (Auto) (0-5) /hpf Urine RBC (Auto) (0-3) /hpf Urine HCG, Qual (NEGATIVE) Urine Opiates Screen (NEGATIVE) Urine Methadone Screen (NEGATIVE) Ur Barbiturates Screen (NEGATIVE) Ur Phencyclidine Scrn (NEGATIVE) Ur Amphetamines Screen (NEGATIVE) U Benzodiazepines Scrn (NEGATIVE) U Oth Cocaine Metabols (NEGATIVE) U Cannabinoids Screen (NEGATIVE) 07/27/18 07/27/18 07/27/18 Range/Units 10:18 10:17 10:04 WBC (4.8-10.8) K/uL RBC (3.80-5.20) Mil/uL Hgb (11.0-16.0) g/dL Hct (34.0-47.0) % MCV (81.0-99.0) fL MCH (27.0-31.0) pg MCHC (33.0-37.0) g/dL RDW (11.5-14.5) % Plt Count (130-400) K/uL MPV (7.2-11.7) fL Neut % (Auto) (50.0-75.0) % Lymph % (Auto) (20.0-40.0) % [place] % (Auto) (0.0-10.0) % Eos % (Auto) (0.0-4.0) % Baso % (Auto) (0.0-2.0) % Neut # (Auto) (1.8-7.0) K/uL Lymph # (Auto) (1.0-4.3) K/uL [place] # (Auto) (0.0-0.8) K/uL Eos # (Auto) (0.0-0.7) K/uL Baso # (Auto) (0.0-0.2) K/uL Neutrophils % (Manual) (50-75) % Band Neutrophils % (0-2) % Lymphocytes % (Manual) (20-40) % Reactive Lymphs % (0-0) % Monocytes % (Manual) (0-10) % Eosinophils % (Manual) (0-4) % Basophils % (Manual) (0-2) % Myelocytes % (0-0) % Platelet Estimate (NORMAL) Hypochromasia (manual) Poikilocytosis (manual Anisocytosis (manual) Kya Cells PT > 320.0 H D (9.7-12.2) SECONDS INR > 10.0 D APTT > 400 H* D (21-34) SECONDS Fibrinogen 67 L Fibrin Degrad Products Positive H Fibrin Degrad Prod, Qt >40 H D-Dimer, Quantitative Puncture Site pCO2 (35-45) mm/Hg pO2 (80-100) mm/Hg HCO3 (21-28) mmol/L ABG pH (7.35-7.45) ABG Total CO2 (22-28) mmol/L ABG O2 Saturation (95-98) % ABG Base Excess (-2.0-3.0) mmol/L ABG Hemoglobin (11.7-17.4) g/dL ABG Carboxyhemoglobin (0.5-1.5) % POC ABG HHb (Measured) (0.0-5.0) % ABG Methemoglobin (0.0-3.0) % Bryce Test ABG Potassium (3.6-5.2) mmol/L VBG pH (7.32-7.43) VBG pCO2 (40-60) mmHg VBG HCO3 mmol/L VBG Total CO2 (22-28) mmol/L VBG O2 Sat (Calc) (40-65) % VBG Base Excess (0.0-2.0) mmol/L VBG Potassium (3.6-5.2) mmol/L A-a O2 Difference mm/Hg Respiratory Index Hgb O2 Saturation (95.0-98.0) % Glucose (65-105) mg/dl Lactate (0.7-2.1) mmol/L Vent Mode Mechanical Rate FiO2 % Tidal Volume PEEP Crit Value Called To Crit Value Called By Crit Value Read Back Blood Gas Notified Time Sodium (132-148) mmol/L Potassium (3.6-5.2) mmol/L Chloride (98-107) mmol/L Carbon Dioxide (22-30) mmol/L Anion Gap (10-20) BUN (7-17) mg/dL Creatinine (0.7-1.2) mg/dL Est GFR ( Amer) Est GFR (Non-Af Amer) POC Glucose (mg/dL) (65-110) mg/dL Random Glucose (65-105) mg/dL Calcium (8.6-10.4) mg/dl Phosphorus (2.5-4.5) mg/dL Magnesium (1.6-2.3) mg/dL Total Bilirubin (0.2-1.3) mg/dL AST (14-36) U/L ALT (9-52) U/L Alkaline Phosphatase (38-126) U/L Total Creatine Kinase (30-135) U/L CK-MB (Mass) (0.0-3.38) ng/mL Troponin I (0.00-0.120) ng/mL Total Protein (6.3-8.3) g/dL Albumin (3.5-5.0) g/dL Globulin (2.2-3.9) gm/dL Albumin/Globulin Ratio (1.0-2.1) Amylase (30-110) U/L Lipase (23-300) U/L Procalcitonin 4.31 H (0.19-0.49) NG/ML Arterial Blood Potassium (3.6-5.2) mmol/L Venous Blood Potassium (3.6-5.2) mmol/L Urine Color (YELLOW) Urine Clarity (Clear) Urine pH (5.0-8.0) Ur Specific [place] (1.003-1.030) Urine Protein (NEGATIVE) mg/dL Urine Glucose (UA) (Normal) mg/dL Urine Ketones (NEGATIVE) mg/dL Urine Blood (NEGATIVE) Urine Nitrate (NEGATIVE) Urine Bilirubin (NEGATIVE) Urine Urobilinogen (0.2-1.0) mg/dL Ur Leukocyte Esterase (Negative) Jessica/uL Urine WBC (Auto) (0-5) /hpf Urine RBC (Auto) (0-3) /hpf Urine HCG, Qual (NEGATIVE) Urine Opiates Screen (NEGATIVE) Urine Methadone Screen (NEGATIVE) Ur Barbiturates Screen (NEGATIVE) Ur Phencyclidine Scrn (NEGATIVE) Ur Amphetamines Screen (NEGATIVE) U Benzodiazepines Scrn (NEGATIVE) U Oth Cocaine Metabols (NEGATIVE) U Cannabinoids Screen (NEGATIVE) 07/27/18 07/27/18 07/27/18 Range/Units 09:35 08:17 08:17 WBC 20.1 H (4.8-10.8) K/uL RBC 3.64 L (3.80-5.20) Mil/uL Hgb 9.5 L D (11.0-16.0) g/dL Hct 29.5 L (34.0-47.0) % MCV 80.9 L (81.0-99.0) fL MCH 26.0 L (27.0-31.0) pg MCHC 32.1 L (33.0-37.0) g/dL RDW 13.5 (11.5-14.5) % Plt Count 185 (130-400) K/uL MPV 7.6 (7.2-11.7) fL Neut % (Auto) 88.9 H (50.0-75.0) % Lymph % (Auto) 9.5 L (20.0-40.0) % [place] % (Auto) 0.9 (0.0-10.0) % Eos % (Auto) 0.4 (0.0-4.0) % Baso % (Auto) 0.3 (0.0-2.0) % Neut # (Auto) 17.9 H (1.8-7.0) K/uL Lymph # (Auto) 1.9 (1.0-4.3) K/uL [place] # (Auto) 0.2 (0.0-0.8) K/uL Eos # (Auto) 0.1 (0.0-0.7) K/uL Baso # (Auto) 0.1 (0.0-0.2) K/uL Neutrophils % (Manual) 74 (50-75) % Band Neutrophils % 13 H* (0-2) % Lymphocytes % (Manual) 11 L (20-40) % Reactive Lymphs % (0-0) % Monocytes % (Manual) 1 (0-10) % Eosinophils % (Manual) (0-4) % Basophils % (Manual) (0-2) % Myelocytes % 1 H (0-0) % Platelet Estimate Normal (NORMAL) Hypochromasia (manual) Slight Poikilocytosis (manual Slight Anisocytosis (manual) Slight [place] Cells Slight PT Cancelled (9.7-12.2) SECONDS INR Cancelled APTT Cancelled (21-34) SECONDS Fibrinogen Cancelled Fibrin Degrad Products Cancelled Fibrin Degrad Prod, Qt Cancelled D-Dimer, Quantitative Puncture Site pCO2 (35-45) mm/Hg pO2 (80-100) mm/Hg HCO3 (21-28) mmol/L ABG pH (7.35-7.45) ABG Total CO2 (22-28) mmol/L ABG O2 Saturation (95-98) % ABG Base Excess (-2.0-3.0) mmol/L ABG Hemoglobin (11.7-17.4) g/dL ABG Carboxyhemoglobin (0.5-1.5) % POC ABG HHb (Measured) (0.0-5.0) % ABG Methemoglobin (0.0-3.0) % Bryce Test ABG Potassium (3.6-5.2) mmol/L VBG pH (7.32-7.43) VBG pCO2 (40-60) mmHg VBG HCO3 mmol/L VBG Total CO2 (22-28) mmol/L VBG O2 Sat (Calc) (40-65) % VBG Base Excess (0.0-2.0) mmol/L VBG Potassium (3.6-5.2) mmol/L A-a O2 Difference mm/Hg Respiratory Index Hgb O2 Saturation (95.0-98.0) % Glucose (65-105) mg/dl Lactate (0.7-2.1) mmol/L Vent Mode Mechanical Rate FiO2 % Tidal Volume PEEP Crit Value Called To Crit Value Called By Crit Value Read Back Blood Gas Notified Time Sodium 149 H (132-148) mmol/L Potassium 3.4 L (3.6-5.2) mmol/L Chloride 110 H (98-107) mmol/L Carbon Dioxide 29 (22-30) mmol/L Anion Gap 13 (10-20) BUN 20 H (7-17) mg/dL Creatinine 1.3 H (0.7-1.2) mg/dL Est GFR ( Amer) 53 Est GFR (Non-Af Amer) 44 POC Glucose (mg/dL) (65-110) mg/dL Random Glucose 186 H (65-105) mg/dL Calcium 6.5 L (8.6-10.4) mg/dl Phosphorus 8.6 H (2.5-4.5) mg/dL Magnesium 2.1 (1.6-2.3) mg/dL Total Bilirubin 0.5 (0.2-1.3) mg/dL AST 693 H D (14-36) U/L ALT 378 H D (9-52) U/L Alkaline Phosphatase 192 H D (38-126) U/L Total Creatine Kinase (30-135) U/L CK-MB (Mass) (0.0-3.38) ng/mL Troponin I (0.00-0.120) ng/mL Total Protein 4.5 L (6.3-8.3) g/dL Albumin 2.2 L D (3.5-5.0) g/dL Globulin 2.2 (2.2-3.9) gm/dL Albumin/Globulin Ratio 1.0 (1.0-2.1) Amylase (30-110) U/L Lipase (23-300) U/L Procalcitonin (0.19-0.49) NG/ML Arterial Blood Potassium (3.6-5.2) mmol/L Venous Blood Potassium (3.6-5.2) mmol/L Urine Color (YELLOW) Urine Clarity (Clear) Urine pH (5.0-8.0) Ur Specific [place] (1.003-1.030) Urine Protein (NEGATIVE) mg/dL Urine Glucose (UA) (Normal) mg/dL Urine Ketones (NEGATIVE) mg/dL Urine Blood (NEGATIVE) Urine Nitrate (NEGATIVE) Urine Bilirubin (NEGATIVE) Urine Urobilinogen (0.2-1.0) mg/dL Ur Leukocyte Esterase (Negative) Jessica/uL Urine WBC (Auto) (0-5) /hpf Urine RBC (Auto) (0-3) /hpf Urine HCG, Qual (NEGATIVE) Urine Opiates Screen (NEGATIVE) Urine Methadone Screen (NEGATIVE) Ur Barbiturates Screen (NEGATIVE) Ur Phencyclidine Scrn (NEGATIVE) Ur Amphetamines Screen (NEGATIVE) U Benzodiazepines Scrn (NEGATIVE) U Oth Cocaine Metabols (NEGATIVE) U Cannabinoids Screen (NEGATIVE) 07/27/18 07/27/18 07/27/18 Range/Units 06:39 04:03 04:02 WBC (4.8-10.8) K/uL RBC (3.80-5.20) Mil/uL Hgb (11.0-16.0) g/dL Hct (34.0-47.0) % MCV (81.0-99.0) fL MCH (27.0-31.0) pg MCHC (33.0-37.0) g/dL RDW (11.5-14.5) % Plt Count (130-400) K/uL MPV (7.2-11.7) fL Neut % (Auto) (50.0-75.0) % Lymph % (Auto) (20.0-40.0) % [place] % (Auto) (0.0-10.0) % Eos % (Auto) (0.0-4.0) % Baso % (Auto) (0.0-2.0) % Neut # (Auto) (1.8-7.0) K/uL Lymph # (Auto) (1.0-4.3) K/uL [place] # (Auto) (0.0-0.8) K/uL Eos # (Auto) (0.0-0.7) K/uL Baso # (Auto) (0.0-0.2) K/uL Neutrophils % (Manual) (50-75) % Band Neutrophils % (0-2) % Lymphocytes % (Manual) (20-40) % Reactive Lymphs % (0-0) % Monocytes % (Manual) (0-10) % Eosinophils % (Manual) (0-4) % Basophils % (Manual) (0-2) % Myelocytes % (0-0) % Platelet Estimate (NORMAL) Hypochromasia (manual) Poikilocytosis (manual Anisocytosis (manual) [place] Cells PT (9.7-12.2) SECONDS INR APTT (21-34) SECONDS Fibrinogen Fibrin Degrad Products Fibrin Degrad Prod, Qt D-Dimer, Quantitative > 5250 H Puncture Site R rad pCO2 81 H* (35-45) mm/Hg pO2 54 L (80-100) mm/Hg HCO3 13.7 L (21-28) mmol/L ABG pH 6.99 L* (7.35-7.45) ABG Total CO2 22.0 (22-28) mmol/L ABG O2 Saturation 85.8 L (95-98) % ABG Base Excess -13.3 L (-2.0-3.0) mmol/L ABG Hemoglobin (11.7-17.4) g/dL ABG Carboxyhemoglobin (0.5-1.5) % POC ABG HHb (Measured) (0.0-5.0) % ABG Methemoglobin (0.0-3.0) % Bryce Test Pos ABG Potassium 3.8 (3.6-5.2) mmol/L VBG pH (7.32-7.43) VBG pCO2 (40-60) mmHg VBG HCO3 mmol/L VBG Total CO2 (22-28) mmol/L VBG O2 Sat (Calc) (40-65) % VBG Base Excess (0.0-2.0) mmol/L VBG Potassium (3.6-5.2) mmol/L A-a O2 Difference 558.0 mm/Hg Respiratory Index 10.3 Hgb O2 Saturation (95.0-98.0) % Glucose 251 H (65-105) mg/dl Lactate 5.8 H* (0.7-2.1) mmol/L Vent Mode Prvc Mechanical Rate 20 FiO2 100.0 % Tidal Volume 450 PEEP 5 Crit Value Called To Nito swan rn Crit Value Called By Rachel love rt Crit Value Read Back Y Blood Gas Notified Time 700 Sodium 143.0 (132-148) mmol/L Potassium (3.6-5.2) mmol/L Chloride 113.0 H (98-107) mmol/L Carbon Dioxide (22-30) mmol/L Anion Gap (10-20) BUN (7-17) mg/dL Creatinine (0.7-1.2) mg/dL Est GFR ( Amer) Est GFR (Non-Af Amer) POC Glucose (mg/dL) (65-110) mg/dL Random Glucose (65-105) mg/dL Calcium (8.6-10.4) mg/dl Phosphorus (2.5-4.5) mg/dL Magnesium (1.6-2.3) mg/dL Total Bilirubin (0.2-1.3) mg/dL AST (14-36) U/L ALT (9-52) U/L Alkaline Phosphatase (38-126) U/L Total Creatine Kinase (30-135) U/L CK-MB (Mass) (0.0-3.38) ng/mL Troponin I (0.00-0.120) ng/mL Total Protein (6.3-8.3) g/dL Albumin (3.5-5.0) g/dL Globulin (2.2-3.9) gm/dL Albumin/Globulin Ratio (1.0-2.1) Amylase (30-110) U/L Lipase (23-300) U/L Procalcitonin (0.19-0.49) NG/ML Arterial Blood Potassium 3.8 (3.6-5.2) mmol/L Venous Blood Potassium (3.6-5.2) mmol/L Urine Color Red (YELLOW) Urine Clarity Turbid (Clear) Urine pH 5.0 (5.0-8.0) Ur Specific [place] 1.027 (1.003-1.030) Urine Protein 2+ H (NEGATIVE) mg/dL Urine Glucose (UA) Normal (Normal) mg/dL Urine Ketones Negative (NEGATIVE) mg/dL Urine Blood 3+ H (NEGATIVE) Urine Nitrate Negative (NEGATIVE) Urine Bilirubin Negative (NEGATIVE) Urine Urobilinogen Normal (0.2-1.0) mg/dL Ur Leukocyte Esterase Neg (Negative) Jessica/uL Urine WBC (Auto) 24 H (0-5) /hpf Urine RBC (Auto) [id number] H (0-3) /hpf Urine HCG, Qual (NEGATIVE) Urine Opiates Screen (NEGATIVE) Urine Methadone Screen (NEGATIVE) Ur Barbiturates Screen (NEGATIVE) Ur Phencyclidine Scrn (NEGATIVE) Ur Amphetamines Screen (NEGATIVE) U Benzodiazepines Scrn (NEGATIVE) U Oth Cocaine Metabols (NEGATIVE) U Cannabinoids Screen (NEGATIVE) 07/27/18 07/27/18 07/27/18 Range/Units 04:01 03:51 03:19 WBC (4.8-10.8) K/uL RBC (3.80-5.20) Mil/uL Hgb (11.0-16.0) g/dL Hct (34.0-47.0) % MCV (81.0-99.0) fL MCH (27.0-31.0) pg MCHC (33.0-37.0) g/dL RDW (11.5-14.5) % Plt Count (130-400) K/uL MPV (7.2-11.7) fL Neut % (Auto) (50.0-75.0) % Lymph % (Auto) (20.0-40.0) % [place] % (Auto) (0.0-10.0) % Eos % (Auto) (0.0-4.0) % Baso % (Auto) (0.0-2.0) % Neut # (Auto) (1.8-7.0) K/uL Lymph # (Auto) (1.0-4.3) K/uL [place] # (Auto) (0.0-0.8) K/uL Eos # (Auto) (0.0-0.7) K/uL Baso # (Auto) (0.0-0.2) K/uL Neutrophils % (Manual) (50-75) % Band Neutrophils % (0-2) % Lymphocytes % (Manual) (20-40) % Reactive Lymphs % (0-0) % Monocytes % (Manual) (0-10) % Eosinophils % (Manual) (0-4) % Basophils % (Manual) (0-2) % Myelocytes % (0-0) % Platelet Estimate (NORMAL) Hypochromasia (manual) Poikilocytosis (manual Anisocytosis (manual) Kya Cells PT (9.7-12.2) SECONDS INR APTT (21-34) SECONDS Fibrinogen Fibrin Degrad Products Fibrin Degrad Prod, Qt D-Dimer, Quantitative Puncture Site R bra pCO2 71 H* (35-45) mm/Hg pO2 491 H (80-100) mm/Hg HCO3 (21-28) mmol/L ABG pH < 6.80 L* (7.35-7.45) ABG Total CO2 (22-28) mmol/L ABG O2 Saturation 99.8 H (95-98) % ABG Base Excess (-2.0-3.0) mmol/L ABG Hemoglobin 9.4 L (11.7-17.4) g/dL ABG Carboxyhemoglobin 0.5 (0.5-1.5) % POC ABG HHb (Measured) 0.2 (0.0-5.0) % ABG Methemoglobin 0.6 (0.0-3.0) % Bryce Test Na ABG Potassium (3.6-5.2) mmol/L VBG pH (7.32-7.43) VBG pCO2 (40-60) mmHg VBG HCO3 mmol/L VBG Total CO2 (22-28) mmol/L VBG O2 Sat (Calc) (40-65) % VBG Base Excess (0.0-2.0) mmol/L VBG Potassium (3.6-5.2) mmol/L A-a O2 Difference 133.0 mm/Hg Respiratory Index 0.3 Hgb O2 Saturation 98.7 H (95.0-98.0) % Glucose (65-105) mg/dl Lactate (0.7-2.1) mmol/L Vent Mode Prvc Mechanical Rate 16 FiO2 100.0 % Tidal Volume 450 PEEP 5 Crit Value Called To Dr yung Crit Value Called By Rachel love rt Crit Value Read Back Y Blood Gas Notified Time 322 Sodium (132-148) mmol/L Potassium (3.6-5.2) mmol/L Chloride (98-107) mmol/L Carbon Dioxide (22-30) mmol/L Anion Gap (10-20) BUN (7-17) mg/dL Creatinine (0.7-1.2) mg/dL Est GFR ( Amer) Est GFR (Non-Af Amer) POC Glucose (mg/dL) (65-110) mg/dL Random Glucose (65-105) mg/dL Calcium (8.6-10.4) mg/dl Phosphorus (2.5-4.5) mg/dL Magnesium (1.6-2.3) mg/dL Total Bilirubin (0.2-1.3) mg/dL AST (14-36) U/L ALT (9-52) U/L Alkaline Phosphatase (38-126) U/L Total Creatine Kinase (30-135) U/L CK-MB (Mass) (0.0-3.38) ng/mL Troponin I (0.00-0.120) ng/mL Total Protein (6.3-8.3) g/dL Albumin (3.5-5.0) g/dL Globulin (2.2-3.9) gm/dL Albumin/Globulin Ratio (1.0-2.1) Amylase (30-110) U/L Lipase (23-300) U/L Procalcitonin (0.19-0.49) NG/ML Arterial Blood Potassium (3.6-5.2) mmol/L Venous Blood Potassium (3.6-5.2) mmol/L Urine Color (YELLOW) Urine Clarity (Clear) Urine pH (5.0-8.0) Ur Specific [place] (1.003-1.030) Urine Protein (NEGATIVE) mg/dL Urine Glucose (UA) (Normal) mg/dL Urine Ketones (NEGATIVE) mg/dL Urine Blood (NEGATIVE) Urine Nitrate (NEGATIVE) Urine Bilirubin (NEGATIVE) Urine Urobilinogen (0.2-1.0) mg/dL Ur Leukocyte Esterase (Negative) Jessica/uL Urine WBC (Auto) (0-5) /hpf Urine RBC (Auto) (0-3) /hpf Urine HCG, Qual Negative (NEGATIVE) Urine Opiates Screen Negative (NEGATIVE) Urine Methadone Screen Negative (NEGATIVE) Ur Barbiturates Screen Negative (NEGATIVE) Ur Phencyclidine Scrn Negative (NEGATIVE) Ur Amphetamines Screen Negative (NEGATIVE) U Benzodiazepines Scrn Negative (NEGATIVE) U Oth Cocaine Metabols Negative (NEGATIVE) U Cannabinoids Screen Negative (NEGATIVE) 07/27/18 07/27/18 07/27/18 Range/Units 02:55 02:19 02:16 WBC (4.8-10.8) K/uL RBC (3.80-5.20) Mil/uL Hgb (11.0-16.0) g/dL Hct (34.0-47.0) % MCV (81.0-99.0) fL MCH (27.0-31.0) pg MCHC (33.0-37.0) g/dL RDW (11.5-14.5) % Plt Count (130-400) K/uL MPV (7.2-11.7) fL Neut % (Auto) (50.0-75.0) % Lymph % (Auto) (20.0-40.0) % [place] % (Auto) (0.0-10.0) % Eos % (Auto) (0.0-4.0) % Baso % (Auto) (0.0-2.0) % Neut # (Auto) (1.8-7.0) K/uL Lymph # (Auto) (1.0-4.3) K/uL [place] # (Auto) (0.0-0.8) K/uL Eos # (Auto) (0.0-0.7) K/uL Baso # (Auto) (0.0-0.2) K/uL Neutrophils % (Manual) (50-75) % Band Neutrophils % (0-2) % Lymphocytes % (Manual) (20-40) % Reactive Lymphs % (0-0) % Monocytes % (Manual) (0-10) % Eosinophils % (Manual) (0-4) % Basophils % (Manual) (0-2) % Myelocytes % (0-0) % Platelet Estimate (NORMAL) Hypochromasia (manual) Poikilocytosis (manual Anisocytosis (manual) Kya Cells PT 11.4 (9.7-12.2) SECONDS INR 1.0 APTT 31 (21-34) SECONDS Fibrinogen Fibrin Degrad Products Fibrin Degrad Prod, Qt D-Dimer, Quantitative Cancelled Puncture Site L femoral pCO2 103 H* (35-45) mm/Hg pO2 29 L* (80-100) mm/Hg HCO3 (21-28) mmol/L ABG pH < 6.80 L* (7.35-7.45) ABG Total CO2 (22-28) mmol/L ABG O2 Saturation 28.2 L (95-98) % ABG Base Excess (-2.0-3.0) mmol/L ABG Hemoglobin (11.7-17.4) g/dL ABG Carboxyhemoglobin (0.5-1.5) % POC ABG HHb (Measured) (0.0-5.0) % ABG Methemoglobin (0.0-3.0) % Bryce Test Na ABG Potassium 4.7 (3.6-5.2) mmol/L VBG pH (7.32-7.43) VBG pCO2 (40-60) mmHg VBG HCO3 mmol/L VBG Total CO2 (22-28) mmol/L VBG O2 Sat (Calc) (40-65) % VBG Base Excess (0.0-2.0) mmol/L VBG Potassium (3.6-5.2) mmol/L A-a O2 Difference 555.0 mm/Hg Respiratory Index 19.1 Hgb O2 Saturation (95.0-98.0) % Glucose 281 H (65-105) mg/dl Lactate 17.6 H* (0.7-2.1) mmol/L Vent Mode Mechanical Rate FiO2 100.0 % Tidal Volume PEEP Crit Value Called To Dr yung Crit Value Called By Rachel love rt Crit Value Read Back Y Blood Gas Notified Time 300 Sodium 146.0 147 (132-148) mmol/L Potassium 4.0 (3.6-5.2) mmol/L Chloride 110.0 H 107 (98-107) mmol/L Carbon Dioxide 16 L (22-30) mmol/L Anion Gap 28 H (10-20) BUN 15 (7-17) mg/dL Creatinine 1.2 (0.7-1.2) mg/dL Est GFR ( Amer) 59 Est GFR (Non-Af Amer) 48 POC Glucose (mg/dL) (65-110) mg/dL Random Glucose 230 H (65-105) mg/dL Calcium 9.4 (8.6-10.4) mg/dl Phosphorus (2.5-4.5) mg/dL Magnesium (1.6-2.3) mg/dL Total Bilirubin 0.3 (0.2-1.3) mg/dL AST 185 H (14-36) U/L ALT 116 H (9-52) U/L Alkaline Phosphatase 93 (38-126) U/L Total Creatine Kinase 50 (30-135) U/L CK-MB (Mass) 0.44 (0.0-3.38) ng/mL Troponin I 0.0720 (0.00-0.120) ng/mL Total Protein 6.7 (6.3-8.3) g/dL Albumin 3.7 (3.5-5.0) g/dL Globulin 3.0 (2.2-3.9) gm/dL Albumin/Globulin Ratio 1.3 (1.0-2.1) Amylase 171 H (30-110) U/L Lipase 207 (23-300) U/L Procalcitonin (0.19-0.49) NG/ML Arterial Blood Potassium 4.7 (3.6-5.2) mmol/L Venous Blood Potassium (3.6-5.2) mmol/L Urine Color (YELLOW) Urine Clarity (Clear) Urine pH (5.0-8.0) Ur Specific [place] (1.003-1.030) Urine Protein (NEGATIVE) mg/dL Urine Glucose (UA) (Normal) mg/dL Urine Ketones (NEGATIVE) mg/dL Urine Blood (NEGATIVE) Urine Nitrate (NEGATIVE) Urine Bilirubin (NEGATIVE) Urine Urobilinogen (0.2-1.0) mg/dL Ur Leukocyte Esterase (Negative) Jessica/uL Urine WBC (Auto) (0-5) /hpf Urine RBC (Auto) (0-3) /hpf Urine HCG, Qual (NEGATIVE) Urine Opiates Screen (NEGATIVE) Urine Methadone Screen (NEGATIVE) Ur Barbiturates Screen (NEGATIVE) Ur Phencyclidine Scrn (NEGATIVE) Ur Amphetamines Screen (NEGATIVE) U Benzodiazepines Scrn (NEGATIVE) U Oth Cocaine Metabols (NEGATIVE) U Cannabinoids Screen (NEGATIVE) 07/27/18 07/27/18 Range/Units 02:16 02:09 WBC 15.8 H (4.8-10.8) K/uL RBC 4.61 (3.80-5.20) Mil/uL Hgb 12.0 (11.0-16.0) g/dL Hct 37.8 (34.0-47.0) % MCV 81.9 (81.0-99.0) fL MCH 26.1 L (27.0-31.0) pg MCHC 31.8 L (33.0-37.0) g/dL RDW 13.6 (11.5-14.5) % Plt Count 160 (130-400) K/uL MPV 10.0 (7.2-11.7) fL Neut % (Auto) 22.5 L (50.0-75.0) % Lymph % (Auto) 71.6 H (20.0-40.0) % [place] % (Auto) 3.4 (0.0-10.0) % Eos % (Auto) 1.1 (0.0-4.0) % Baso % (Auto) 1.4 (0.0-2.0) % Neut # (Auto) 3.6 (1.8-7.0) K/uL Lymph # (Auto) 11.3 H (1.0-4.3) K/uL [place] # (Auto) 0.5 (0.0-0.8) K/uL Eos # (Auto) 0.2 (0.0-0.7) K/uL Baso # (Auto) 0.2 (0.0-0.2) K/uL Neutrophils % (Manual) 26 L (50-75) % Band Neutrophils % (0-2) % Lymphocytes % (Manual) 49 H (20-40) % Reactive Lymphs % 18 H (0-0) % Monocytes % (Manual) 5 (0-10) % Eosinophils % (Manual) 1 (0-4) % Basophils % (Manual) 1 (0-2) % Myelocytes % (0-0) % Platelet Estimate Normal (NORMAL) Hypochromasia (manual) Poikilocytosis (manual Anisocytosis (manual) Kya Cells PT (9.7-12.2) SECONDS INR APTT (21-34) SECONDS Fibrinogen Fibrin Degrad Products Fibrin Degrad Prod, Qt D-Dimer, Quantitative Puncture Site pCO2 (35-45) mm/Hg pO2 (80-100) mm/Hg HCO3 (21-28) mmol/L ABG pH (7.35-7.45) ABG Total CO2 (22-28) mmol/L ABG O2 Saturation (95-98) % ABG Base Excess (-2.0-3.0) mmol/L ABG Hemoglobin (11.7-17.4) g/dL ABG Carboxyhemoglobin (0.5-1.5) % POC ABG HHb (Measured) (0.0-5.0) % ABG Methemoglobin (0.0-3.0) % Bryce Test ABG Potassium (3.6-5.2) mmol/L VBG pH (7.32-7.43) VBG pCO2 (40-60) mmHg VBG HCO3 mmol/L VBG Total CO2 (22-28) mmol/L VBG O2 Sat (Calc) (40-65) % VBG Base Excess (0.0-2.0) mmol/L VBG Potassium (3.6-5.2) mmol/L A-a O2 Difference mm/Hg Respiratory Index Hgb O2 Saturation (95.0-98.0) % Glucose (65-105) mg/dl Lactate (0.7-2.1) mmol/L Vent Mode Mechanical Rate FiO2 % Tidal Volume PEEP Crit Value Called To Crit Value Called By Crit Value Read Back Blood Gas Notified Time Sodium (132-148) mmol/L Potassium (3.6-5.2) mmol/L Chloride (98-107) mmol/L Carbon Dioxide (22-30) mmol/L Anion Gap (10-20) BUN (7-17) mg/dL Creatinine (0.7-1.2) mg/dL Est GFR ( Amer) Est GFR (Non-Af Amer) POC Glucose (mg/dL) 288 H (65-110) mg/dL Random Glucose (65-105) mg/dL Calcium (8.6-10.4) mg/dl Phosphorus (2.5-4.5) mg/dL Magnesium (1.6-2.3) mg/dL Total Bilirubin (0.2-1.3) mg/dL AST (14-36) U/L ALT (9-52) U/L Alkaline Phosphatase (38-126) U/L Total Creatine Kinase (30-135) U/L CK-MB (Mass) (0.0-3.38) ng/mL Troponin I (0.00-0.120) ng/mL Total Protein (6.3-8.3) g/dL Albumin (3.5-5.0) g/dL Globulin (2.2-3.9) gm/dL Albumin/Globulin Ratio (1.0-2.1) Amylase (30-110) U/L Lipase (23-300) U/L Procalcitonin (0.19-0.49) NG/ML Arterial Blood Potassium (3.6-5.2) mmol/L Venous Blood Potassium (3.6-5.2) mmol/L Urine Color (YELLOW) Urine Clarity (Clear) Urine pH (5.0-8.0) Ur Specific [place] (1.003-1.030) Urine Protein (NEGATIVE) mg/dL Urine Glucose (UA) (Normal) mg/dL Urine Ketones (NEGATIVE) mg/dL Urine Blood (NEGATIVE) Urine Nitrate (NEGATIVE) Urine Bilirubin (NEGATIVE) Urine Urobilinogen (0.2-1.0) mg/dL Ur Leukocyte Esterase (Negative) Jessica/uL Urine WBC (Auto) (0-5) /hpf Urine RBC (Auto) (0-3) /hpf Urine HCG, Qual (NEGATIVE) Urine Opiates Screen (NEGATIVE) Urine Methadone Screen (NEGATIVE) Ur Barbiturates Screen (NEGATIVE) Ur Phencyclidine Scrn (NEGATIVE) Ur Amphetamines Screen (NEGATIVE) U Benzodiazepines Scrn (NEGATIVE) U Oth Cocaine Metabols (NEGATIVE) U Cannabinoids Screen (NEGATIVE) Laboratory Results - last 24 hr 07/27/18 07/27/18 07/27/18 02:09 02:16 02:16 WBC 15.8 H RBC 4.61 Hgb 12.0 Hct 37.8 MCV 81.9 MCH 26.1 L MCHC 31.8 L RDW 13.6 Plt Count 160 MPV 10.0 Neut % (Auto) 22.5 L Lymph % (Auto) 71.6 H [place] % (Auto) 3.4 Eos % (Auto) 1.1 Baso % (Auto) 1.4 Neut # (Auto) 3.6 Lymph # (Auto) 11.3 H [place] # (Auto) 0.5 Eos # (Auto) 0.2 Baso # (Auto) 0.2 Neutrophils % (Manual) 26 L Band Neutrophils % Lymphocytes % (Manual) 49 H Reactive Lymphs % 18 H Monocytes % (Manual) 5 Eosinophils % (Manual) 1 Basophils % (Manual) 1 Myelocytes % Platelet Estimate Normal Hypochromasia (manual) Poikilocytosis (manual Anisocytosis (manual) [place] Cells PT INR APTT Fibrinogen Fibrin Degrad Products Fibrin Degrad Prod, Qt D-Dimer, Quantitative Puncture Site pCO2 pO2 HCO3 ABG pH ABG Total CO2 ABG O2 Saturation ABG Base Excess ABG Hemoglobin ABG Carboxyhemoglobin POC ABG HHb (Measured) ABG Methemoglobin Bryce Test ABG Potassium VBG pH VBG pCO2 VBG HCO3 VBG Total CO2 VBG O2 Sat (Calc) VBG Base Excess VBG Potassium A-a O2 Difference Respiratory Index Hgb O2 Saturation Glucose Lactate Vent Mode Mechanical Rate FiO2 Tidal Volume PEEP Crit Value Called To Crit Value Called By Crit Value Read Back Blood Gas Notified Time Sodium 147 Potassium 4.0 Chloride 107 Carbon Dioxide 16 L Anion Gap 28 H BUN 15 Creatinine 1.2 Est GFR ( Amer) 59 Est GFR (Non-Af Amer) 48 POC Glucose (mg/dL) 288 H Random Glucose 230 H Calcium 9.4 Phosphorus Magnesium Total Bilirubin 0.3 AST 185 H ALT 116 H Alkaline Phosphatase 93 Total Creatine Kinase 50 CK-MB (Mass) 0.44 Troponin I 0.0720 Total Protein 6.7 Albumin 3.7 Globulin 3.0 Albumin/Globulin Ratio 1.3 Amylase 171 H Lipase 207 Procalcitonin Arterial Blood Potassium Venous Blood Potassium Urine Color Urine Clarity Urine pH Ur Specific [place] Urine Protein Urine Glucose (UA) Urine Ketones Urine Blood Urine Nitrate Urine Bilirubin Urine Urobilinogen Ur Leukocyte Esterase Urine WBC (Auto) Urine RBC (Auto) Urine HCG, Qual Urine Opiates Screen Urine Methadone Screen Ur Barbiturates Screen Ur Phencyclidine Scrn Ur Amphetamines Screen U Benzodiazepines Scrn U Oth Cocaine Metabols U Cannabinoids Screen 07/27/18 07/27/18 07/27/18 02:19 02:55 03:19 WBC RBC Hgb Hct MCV MCH MCHC RDW Plt Count MPV Neut % (Auto) Lymph % (Auto) [place] % (Auto) Eos % (Auto) Baso % (Auto) Neut # (Auto) Lymph # (Auto) [place] # (Auto) Eos # (Auto) Baso # (Auto) Neutrophils % (Manual) Band Neutrophils % Lymphocytes % (Manual) Reactive Lymphs % Monocytes % (Manual) Eosinophils % (Manual) Basophils % (Manual) Myelocytes % Platelet Estimate Hypochromasia (manual) Poikilocytosis (manual Anisocytosis (manual) [place] Cells PT 11.4 INR 1.0 APTT 31 Fibrinogen Fibrin Degrad Products Fibrin Degrad Prod, Qt D-Dimer, Quantitative Cancelled Puncture Site L femoral R bra pCO2 103 H* 71 H* pO2 29 L* 491 H HCO3 ABG pH < 6.80 L* < 6.80 L* ABG Total CO2 ABG O2 Saturation 28.2 L 99.8 H ABG Base Excess ABG Hemoglobin 9.4 L ABG Carboxyhemoglobin 0.5 POC ABG HHb (Measured) 0.2 ABG Methemoglobin 0.6 Bryce Test Na Na ABG Potassium 4.7 VBG pH VBG pCO2 VBG HCO3 VBG Total CO2 VBG O2 Sat (Calc) VBG Base Excess VBG Potassium A-a O2 Difference 555.0 133.0 Respiratory Index 19.1 0.3 Hgb O2 Saturation 98.7 H Glucose 281 H Lactate 17.6 H* Vent Mode Prvc Mechanical Rate 16 FiO2 100.0 100.0 Tidal Volume 450 PEEP 5 Crit Value Called To Dr aga yung Crit Value Called By Rachel love rt Rahcel love rt Crit Value Read Back Y Y Blood Gas Notified Time 300 322 Sodium 146.0 Potassium Chloride 110.0 H Carbon Dioxide Anion Gap BUN Creatinine Est GFR ( Amer) Est GFR (Non-Af Amer) POC Glucose (mg/dL) Random Glucose Calcium Phosphorus Magnesium Total Bilirubin AST ALT Alkaline Phosphatase Total Creatine Kinase CK-MB (Mass) Troponin I Total Protein Albumin Globulin Albumin/Globulin Ratio Amylase Lipase Procalcitonin Arterial Blood Potassium 4.7 Venous Blood Potassium Urine Color Urine Clarity Urine pH Ur Specific [place] Urine Protein Urine Glucose (UA) Urine Ketones Urine Blood Urine Nitrate Urine Bilirubin Urine Urobilinogen Ur Leukocyte Esterase Urine WBC (Auto) Urine RBC (Auto) Urine HCG, Qual Urine Opiates Screen Urine Methadone Screen Ur Barbiturates Screen Ur Phencyclidine Scrn Ur Amphetamines Screen U Benzodiazepines Scrn U Oth Cocaine Metabols U Cannabinoids Screen 07/27/18 07/27/18 07/27/18 03:51 04:01 04:02 WBC RBC Hgb Hct MCV MCH MCHC RDW Plt Count MPV Neut % (Auto) Lymph % (Auto) [place] % (Auto) Eos % (Auto) Baso % (Auto) Neut # (Auto) Lymph # (Auto) [place] # (Auto) Eos # (Auto) Baso # (Auto) Neutrophils % (Manual) Band Neutrophils % Lymphocytes % (Manual) Reactive Lymphs % Monocytes % (Manual) Eosinophils % (Manual) Basophils % (Manual) Myelocytes % Platelet Estimate Hypochromasia (manual) Poikilocytosis (manual Anisocytosis (manual) [place] Cells PT INR APTT Fibrinogen Fibrin Degrad Products Fibrin Degrad Prod, Qt D-Dimer, Quantitative Puncture Site pCO2 pO2 HCO3 ABG pH ABG Total CO2 ABG O2 Saturation ABG Base Excess ABG Hemoglobin ABG Carboxyhemoglobin POC ABG HHb (Measured) ABG Methemoglobin Bryce Test ABG Potassium VBG pH VBG pCO2 VBG HCO3 VBG Total CO2 VBG O2 Sat (Calc) VBG Base Excess VBG Potassium A-a O2 Difference Respiratory Index Hgb O2 Saturation Glucose Lactate Vent Mode Mechanical Rate FiO2 Tidal Volume PEEP Crit Value Called To Crit Value Called By Crit Value Read Back Blood Gas Notified Time Sodium Potassium Chloride Carbon Dioxide Anion Gap BUN Creatinine Est GFR ( Amer) Est GFR (Non-Af Amer) POC Glucose (mg/dL) Random Glucose Calcium Phosphorus Magnesium Total Bilirubin AST ALT Alkaline Phosphatase Total Creatine Kinase CK-MB (Mass) Troponin I Total Protein Albumin Globulin Albumin/Globulin Ratio Amylase Lipase Procalcitonin Arterial Blood Potassium Venous Blood Potassium Urine Color Red Urine Clarity Turbid Urine pH 5.0 Ur Specific [place] 1.027 Urine Protein 2+ H Urine Glucose (UA) Normal Urine Ketones Negative Urine Blood 3+ H Urine Nitrate Negative Urine Bilirubin Negative Urine Urobilinogen Normal Ur Leukocyte Esterase Neg Urine WBC (Auto) 24 H Urine RBC (Auto) 72932 H Urine HCG, Qual Negative Urine Opiates Screen Negative Urine Methadone Screen Negative Ur Barbiturates Screen Negative Ur Phencyclidine Scrn Negative Ur Amphetamines Screen Negative U Benzodiazepines Scrn Negative U Oth Cocaine Metabols Negative U Cannabinoids Screen Negative 07/27/18 07/27/18 07/27/18 04:03 06:39 08:17 WBC 20.1 H RBC 3.64 L Hgb 9.5 L D Hct 29.5 L MCV 80.9 L MCH 26.0 L MCHC 32.1 L RDW 13.5 Plt Count 185 MPV 7.6 Neut % (Auto) 88.9 H Lymph % (Auto) 9.5 L [place] % (Auto) 0.9 Eos % (Auto) 0.4 Baso % (Auto) 0.3 Neut # (Auto) 17.9 H Lymph # (Auto) 1.9 [place] # (Auto) 0.2 Eos # (Auto) 0.1 Baso # (Auto) 0.1 Neutrophils % (Manual) 74 Band Neutrophils % 13 H* Lymphocytes % (Manual) 11 L Reactive Lymphs % Monocytes % (Manual) 1 Eosinophils % (Manual) Basophils % (Manual) Myelocytes % 1 H Platelet Estimate Normal Hypochromasia (manual) Slight Poikilocytosis (manual Slight Anisocytosis (manual) Slight [place] Cells Slight PT INR APTT Fibrinogen Fibrin Degrad Products Fibrin Degrad Prod, Qt D-Dimer, Quantitative > 5250 H Puncture Site R rad pCO2 81 H* pO2 54 L HCO3 13.7 L ABG pH 6.99 L* ABG Total CO2 22.0 ABG O2 Saturation 85.8 L ABG Base Excess -13.3 L ABG Hemoglobin ABG Carboxyhemoglobin POC ABG HHb (Measured) ABG Methemoglobin Bryce Test Pos ABG Potassium 3.8 VBG pH VBG pCO2 VBG HCO3 VBG Total CO2 VBG O2 Sat (Calc) VBG Base Excess VBG Potassium A-a O2 Difference 558.0 Respiratory Index 10.3 Hgb O2 Saturation Glucose 251 H Lactate 5.8 H* Vent Mode Prvc Mechanical Rate 20 FiO2 100.0 Tidal Volume 450 PEEP 5 Crit Value Called To Nito swan rn Crit Value Called By Rachel love rt Crit Value Read Back Y Blood Gas Notified Time 700 Sodium 143.0 Potassium Chloride 113.0 H Carbon Dioxide Anion Gap BUN Creatinine Est GFR ( Amer) Est GFR (Non-Af Amer) POC Glucose (mg/dL) Random Glucose Calcium Phosphorus Magnesium Total Bilirubin AST ALT Alkaline Phosphatase Total Creatine Kinase CK-MB (Mass) Troponin I Total Protein Albumin Globulin Albumin/Globulin Ratio Amylase Lipase Procalcitonin Arterial Blood Potassium 3.8 Venous Blood Potassium Urine Color Urine Clarity Urine pH Ur Specific [place] Urine Protein Urine Glucose (UA) Urine Ketones Urine Blood Urine Nitrate Urine Bilirubin Urine Urobilinogen Ur Leukocyte Esterase Urine WBC (Auto) Urine RBC (Auto) Urine HCG, Qual Urine Opiates Screen Urine Methadone Screen Ur Barbiturates Screen Ur Phencyclidine Scrn Ur Amphetamines Screen U Benzodiazepines Scrn U Oth Cocaine Metabols U Cannabinoids Screen 07/27/18 07/27/18 07/27/18 08:17 09:35 10:04 WBC RBC Hgb Hct MCV MCH MCHC RDW Plt Count MPV Neut % (Auto) Lymph % (Auto) [place] % (Auto) Eos % (Auto) Baso % (Auto) Neut # (Auto) Lymph # (Auto) [place] # (Auto) Eos # (Auto) Baso # (Auto) Neutrophils % (Manual) Band Neutrophils % Lymphocytes % (Manual) Reactive Lymphs % Monocytes % (Manual) Eosinophils % (Manual) Basophils % (Manual) Myelocytes % Platelet Estimate Hypochromasia (manual) Poikilocytosis (manual Anisocytosis (manual) Kya Cells PT Cancelled INR Cancelled APTT Cancelled Fibrinogen Cancelled Fibrin Degrad Products Cancelled Fibrin Degrad Prod, Qt Cancelled D-Dimer, Quantitative Puncture Site pCO2 pO2 HCO3 ABG pH ABG Total CO2 ABG O2 Saturation ABG Base Excess ABG Hemoglobin ABG Carboxyhemoglobin POC ABG HHb (Measured) ABG Methemoglobin Bryce Test ABG Potassium VBG pH VBG pCO2 VBG HCO3 VBG Total CO2 VBG O2 Sat (Calc) VBG Base Excess VBG Potassium A-a O2 Difference Respiratory Index Hgb O2 Saturation Glucose Lactate Vent Mode Mechanical Rate FiO2 Tidal Volume PEEP Crit Value Called To Crit Value Called By Crit Value Read Back Blood Gas Notified Time Sodium 149 H Potassium 3.4 L Chloride 110 H Carbon Dioxide 29 Anion Gap 13 BUN 20 H Creatinine 1.3 H Est GFR ( Amer) 53 Est GFR (Non-Af Amer) 44 POC Glucose (mg/dL) Random Glucose 186 H Calcium 6.5 L Phosphorus 8.6 H Magnesium 2.1 Total Bilirubin 0.5 AST 693 H D ALT 378 H D Alkaline Phosphatase 192 H D Total Creatine Kinase CK-MB (Mass) Troponin I Total Protein 4.5 L Albumin 2.2 L D Globulin 2.2 Albumin/Globulin Ratio 1.0 Amylase Lipase Procalcitonin 4.31 H Arterial Blood Potassium Venous Blood Potassium Urine Color Urine Clarity Urine pH Ur Specific [place] Urine Protein Urine Glucose (UA) Urine Ketones Urine Blood Urine Nitrate Urine Bilirubin Urine Urobilinogen Ur Leukocyte Esterase Urine WBC (Auto) Urine RBC (Auto) Urine HCG, Qual Urine Opiates Screen Urine Methadone Screen Ur Barbiturates Screen Ur Phencyclidine Scrn Ur Amphetamines Screen U Benzodiazepines Scrn U Oth Cocaine Metabols U Cannabinoids Screen 07/27/18 07/27/18 07/27/18 10:17 10:18 13:29 WBC RBC Hgb Hct MCV MCH MCHC RDW Plt Count MPV Neut % (Auto) Lymph % (Auto) [place] % (Auto) Eos % (Auto) Baso % (Auto) Neut # (Auto) Lymph # (Auto) [place] # (Auto) Eos # (Auto) Baso # (Auto) Neutrophils % (Manual) Band Neutrophils % Lymphocytes % (Manual) Reactive Lymphs % Monocytes % (Manual) Eosinophils % (Manual) Basophils % (Manual) Myelocytes % Platelet Estimate Hypochromasia (manual) Poikilocytosis (manual Anisocytosis (manual) [place] Cells PT > 320.0 H D INR > 10.0 D APTT > 400 H* D Fibrinogen 67 L Fibrin Degrad Products Positive H Fibrin Degrad Prod, Qt >40 H D-Dimer, Quantitative Puncture Site pCO2 pO2 30 HCO3 ABG pH ABG Total CO2 ABG O2 Saturation ABG Base Excess ABG Hemoglobin ABG Carboxyhemoglobin POC ABG HHb (Measured) ABG Methemoglobin Bryce Test ABG Potassium VBG pH 7.02 L* VBG pCO2 77 H* VBG HCO3 13.5 VBG Total CO2 22.3 VBG O2 Sat (Calc) 58.5 VBG Base Excess -12.3 L VBG Potassium 2.4 L* A-a O2 Difference Respiratory Index Hgb O2 Saturation Glucose 107 H Lactate 4.1 H* Vent Mode Mechanical Rate FiO2 100.0 Tidal Volume PEEP 5 Crit Value Called To Dr merritt Crit Value Called By Maribell holliday [employer] tech Crit Value Read Back Y Blood Gas Notified Time 1335 Sodium 152.0 H Potassium Chloride 124.0 H Carbon Dioxide Anion Gap BUN Creatinine Est GFR ( Amer) Est GFR (Non-Af Amer) POC Glucose (mg/dL) Random Glucose Calcium Phosphorus Magnesium Total Bilirubin AST ALT Alkaline Phosphatase Total Creatine Kinase CK-MB (Mass) Troponin I Total Protein Albumin Globulin Albumin/Globulin Ratio Amylase Lipase Procalcitonin Arterial Blood Potassium Venous Blood Potassium 2.4 L* Urine Color Urine Clarity Urine pH Ur Specific [place] Urine Protein Urine Glucose (UA) Urine Ketones Urine Blood Urine Nitrate Urine Bilirubin Urine Urobilinogen Ur Leukocyte Esterase Urine WBC (Auto) Urine RBC (Auto) Urine HCG, Qual Urine Opiates Screen Urine Methadone Screen Ur Barbiturates Screen Ur Phencyclidine Scrn Ur Amphetamines Screen U Benzodiazepines Scrn U Oth Cocaine Metabols U Cannabinoids Screen 07/27/18 07/27/18 13:42 18:11 WBC RBC Hgb Hct MCV MCH MCHC RDW Plt Count MPV Neut % (Auto) Lymph % (Auto) [place] % (Auto) Eos % (Auto) Baso % (Auto) Neut # (Auto) Lymph # (Auto) [place] # (Auto) Eos # (Auto) Baso # (Auto) Neutrophils % (Manual) Band Neutrophils % Lymphocytes % (Manual) Reactive Lymphs % Monocytes % (Manual) Eosinophils % (Manual) Basophils % (Manual) Myelocytes % Platelet Estimate Hypochromasia (manual) Poikilocytosis (manual Anisocytosis (manual) [place] Cells PT > 320.0 H INR > 10.0 APTT > 400 H* Fibrinogen Fibrin Degrad Products Fibrin Degrad Prod, Qt D-Dimer, Quantitative Puncture Site pCO2 pO2 60 H HCO3 ABG pH ABG Total CO2 ABG O2 Saturation ABG Base Excess ABG Hemoglobin ABG Carboxyhemoglobin POC ABG HHb (Measured) ABG Methemoglobin Bryce Test ABG Potassium VBG pH 7.20 L VBG pCO2 45 VBG HCO3 16.6 VBG Total CO2 19.0 L VBG O2 Sat (Calc) 93.2 H VBG Base Excess -10.2 L VBG Potassium 3.9 A-a O2 Difference Respiratory Index Hgb O2 Saturation Glucose 140 H Lactate 6.1 H* Vent Mode Mechanical Rate FiO2 Tidal Volume PEEP Crit Value Called To Narinder herron Crit Value Called By Rinku Crit Value Read Back Y Blood Gas Notified Time 1814 Sodium 149.0 H Potassium Chloride 121.0 H Carbon Dioxide Anion Gap BUN Creatinine Est GFR ( Amer) Est GFR (Non-Af Amer) POC Glucose (mg/dL) Random Glucose Calcium Phosphorus Magnesium Total Bilirubin AST ALT Alkaline Phosphatase Total Creatine Kinase CK-MB (Mass) Troponin I Total Protein Albumin Globulin Albumin/Globulin Ratio Amylase Lipase Procalcitonin Arterial Blood Potassium Venous Blood Potassium 3.9 Urine Color Urine Clarity Urine pH Ur Specific [place] Urine Protein Urine Glucose (UA) Urine Ketones Urine Blood Urine Nitrate Urine Bilirubin Urine Urobilinogen Ur Leukocyte Esterase Urine WBC (Auto) Urine RBC (Auto) Urine HCG, Qual Urine Opiates Screen Urine Methadone Screen Ur Barbiturates Screen Ur Phencyclidine Scrn Ur Amphetamines Screen U Benzodiazepines Scrn U Oth Cocaine Metabols U Cannabinoids Screen EKG/Cardiology Studies: Cardiology / EKG Studies 07/27/18 02:06 EKG [ELECTROCARDIOGRAM] Stat Comment: Mode Of Transportation: BED Reason For Exam: cp 07/27/18 03:00 EKG [ELECTROCARDIOGRAM] Stat Comment: Mode Of Transportation: BED Reason For Exam: cardiac arrest 07/27/18 03:08 EKG [ELECTROCARDIOGRAM] Stat Comment: Mode Of Transportation: BED Reason For Exam: cp Fingerstick Blood Sugar Results: 288
[2018-07-27 18:39] LABS: BASO % 0.1 % (0.0-2.0); EOS # 0.2 K/uL (0.0-0.7); EOS % 0.6 % (0.0-4.0); HEMOGLOBIN 8.6 g/dL (11.0-16.0); LYMPH # 0.8 K/uL (1.0-4.3); LYMPH % 3.1 % (20.0-40.0); MEAN CELL VOLUME 80.4 fL (81.0-99.0); MEAN CORPUSCULAR HEMOGLOBIN 24.9 pg (27.0-31.0); MEAN PLATELET VOLUME 8.7 fL (7.2-11.7); MONO # 0.4 K/uL (0.0-0.8); MONO % 1.5 % (0.0-10.0); NEUT # 24.4 K/uL (1.8-7.0); NEUT % 94.7 % (50.0-75.0); PLATELET COUNT 160 K/uL (130-400); RBC 3.44 Mil/uL (3.80-5.20); RED CELL DISTRIBUTION WIDTH 13.3 % (11.5-14.5); WHITE BLOOD COUNT 25.8 K/uL (4.8-10.8)
[2018-07-27 18:46] LABS: INR 2.5; PROTHROMBIN TIME 27.4 SECONDS (9.7-12.2)
[2018-07-27 18:53] LABS: ALB/GLOB RATIO 0.9 (1.0-2.1); ALBUMIN 1.9 g/dL (3.5-5.0)
[2018-07-27 18:55] LABS: CALCIUM 5.9 mg/dl (8.6-10.4)
--- NOTE | 2018-07-27 19:10 | CP.PCM.CON ---
Addendum entered and electronically signed by Corrie Chowdary DO 07/28/18 07:16: Consult was placed to IR regarding catheter directed thrombolysis. Patient was determined to be not a candidate. Per IR systemic fibrinolysis recommended. Original Note: History of Present Illness - History of Present Illness History of Present Illness: Critical Care Consult Note Patient is a 48 year old female with past medical history of anxiety presenting to ED with shortness of breath, syncope, and chest pain after returning from [place] on a bus. In ED patient was noted to be in afib with RVR at a rate of 156, and was given cardizem and morphine. Patient then went into respiratory stress with bradycardia. ACLS protocol was initiated. Patient was intubated and ICU was consulted. CTA showed diffuse bilateral PE and patient was started on heparin drip. History was obtained from ED records as patient is intubated and unresponsive. PMH: anxiety PSH: bariatric surgery, C/S x2 Social: Denies alcohol, tobacco, drug use Allergies: NKDA Home medications: Protonix 40 mg PO daily, cipro 500 mg PO, drospirenona/etinilestradiol 3 mg/0.02 mg Review of Systems - Review of Systems Systems not reviewed;Unavailable: Intubated Past Patient History - Infectious Disease Hx of Infectious Diseases: None - Past Medical History & Family History Past Medical History?: Yes - Past Social History Smoking Status: Never Smoked - CARDIAC Hx Cardiac Disorders: (unable to obtain) - PULMONARY Hx Respiratory Disorders: (unable to obtain) - NEUROLOGICAL Hx Neurological Disorder: (unable to obtain) - HEENT Hx HEENT Problems: (unable to obtain) - RENAL Hx Chronic Kidney Disease: (unable to obtain) - ENDOCRINE/METABOLIC Hx Endocrine Disorders: (unable to obtain) - HEMATOLOGICAL/ONCOLOGICAL Hx Blood Disorders: (unable to obtain) - INTEGUMENTARY Hx Dermatological Problems: (unable to obtain) - MUSCULOSKELETAL/RHEUMATOLOGICAL Hx Musculoskeletal Disorders: (unable to obtain) - GASTROINTESTINAL Hx Gastrointestinal Disorders: (unable to obtain) - GENITOURINARY/GYNECOLOGICAL Hx Genitourinary Disorders: (unable to obtain) - PSYCHIATRIC Hx Anxiety: Yes Hx Substance Use: No - SURGICAL HISTORY Hx Surgeries: Yes (As per Family Member) Hx Section: Yes (x2) Other/Comment: Bariatric Sx - ANESTHESIA Hx Anesthesia: Yes Hx Anesthesia Reactions: No Hx Malignant Hyperthermia: No Meds Allergies/Adverse Reactions: Allergies Allergy/AdvReac Type Severity Reaction Status Date / Time No Known Allergies Allergy Unverified 07/27/18 02:28 - Medications Medications: Current Medications Heparin Sodium/Sodium Chloride (Heparin 70607 Units/250ml 1/2 Normal Saline) 25,000 units in 250 mls @ 12.247 mls/hr IV .[id number] PRN; Protocol PRN Reason: ADJUST RATE PER PROTOCOL Last Titration: 07/27/18 09:21 Dose: 0 units/kg/hr, 0 mls/hr Norepinephrine Bitartrate 4 mg (/ Sodium Chloride) 250 mls @ 15 mls/hr IV .[id number] PRN; Protocol PRN Reason: TITRATE PER MD ORDER Last Titration: 07/27/18 14:11 Dose: 0 mcg/min, 0 mls/hr Cisatracurium Besylate 100 mg/ (Dextrose) 250 mls @ 32.66 mls/hr IV .[id number] PRN; Protocol PRN Reason: Agitation Last Titration: 07/27/18 18:36 Dose: 2.5 mcg/kg/min, 27.22 mls/hr Piperacillin Sod/Tazobactam (Sod 3.375 gm/ Sodium Chloride) 100 mls @ 200 mls/hr IVPB Q6H KACY; Protocol Last Admin: 07/27/18 16:46 Dose: 200 mls/hr Vancomycin HCl 1,000 mg/ (Sodium Chloride) 250 mls @ 166.6 mls/hr IVPB Q12H KACY; Protocol Last Admin: 07/27/18 10:07 Dose: 166.6 mls/hr Phenylephrine HCl 30 mg/ (Sodium Chloride) 250 mls @ 10 mls/hr IV .Q24H PRN; Protocol PRN Reason: TITRATE PER MD ORDER Last Titration: 07/27/18 18:36 Dose: 100 mcg/min, 50 mls/hr Vasopressin 40 units/ Sodium (Chloride) 40 mls @ 1.2 mls/hr IV .Q24H KACY; Protocol Last Titration: 07/27/18 15:00 Dose: 0.04 units/min, 2.4 mls/hr Sodium Chloride (Sodium Chloride 0.9%) 1,000 mls @ 200 mls/hr IV .Q5H KACY Last Admin: 07/27/18 15:00 Dose: 200 mls/hr Dexmedetomidine HCl 200 mcg/ (Sodium Chloride) 50 mls @ 3.63 mls/hr IV TITR PRN; Protocol PRN Reason: Sedation Last Titration: 07/27/18 17:19 Dose: 1 mcg/kg/hr, 18.14 mls/hr Metronidazole (Flagyl) 500 mg in 100 mls @ 100 mls/hr IVPB Q8H KACY; Protocol Lorazepam (Ativan) 2 mg IVP Q4 PRN PRN Reason: Anxiety Methylprednisolone (Solu-Medrol) 40 mg IVP TID [facility] Last Admin: 07/27/18 17:24 Dose: 40 mg Pantoprazole Sodium (Protonix Inj) 40 mg IVP Q12 [facility] Last Admin: 07/27/18 10:25 Dose: 40 mg Physical Exam - Constitutional Appears: In Acute Distress - Head Exam Head Exam: NORMOCEPHALIC Additional comments: hematoma on forehead - Eye Exam Eye Exam: EOMI, Normal appearance, PERRL - ENT Exam ENT Exam: Mucous Membranes Moist - Neck Exam Neck exam: Positive for: Normal Inspection. Negative for: Lymphadenopathy, Thyromegaly - Respiratory Exam Respiratory Exam: Decreased Breath Sounds, Respiratory Distress Additional comments: endotracheal tube in place retractions - Cardiovascular Exam Cardiovascular Exam: Tachycardia, REGULAR RHYTHM, +S1, +S2 - GI/Abdominal Exam GI & Abdominal Exam: Firm, Normal Bowel Sounds. absent: Rebound, Tenderness - Extremities Exam Extremities exam: Positive for: pedal pulses present. Negative for: tenderness - Neurological Exam Neurological exam: Altered - Skin Skin Exam: Dry, Intact, Warm Results - Vital Signs Recent Vital Signs: Last Vital Signs Temp 97.9 F 07/27/18 12:00 Pulse 142 H 07/27/18 14:37 Resp 24 07/27/18 14:37 BP 93/37 L 07/27/18 14:37 Pulse Ox 98 07/27/18 14:37 - Labs Result Diagrams: 07/27/18 18:26 07/27/18 18:26 Labs: Laboratory Results - last 24 hr 07/27/18 07/27/18 07/27/18 02:09 02:16 02:16 WBC 15.8 H RBC 4.61 Hgb 12.0 Hct 37.8 MCV 81.9 MCH 26.1 L MCHC 31.8 L RDW 13.6 Plt Count 160 MPV 10.0 Neut % (Auto) 22.5 L Lymph % (Auto) 71.6 H [place] % (Auto) 3.4 Eos % (Auto) 1.1 Baso % (Auto) 1.4 Neut # (Auto) 3.6 Lymph # (Auto) 11.3 H [place] # (Auto) 0.5 Eos # (Auto) 0.2 Baso # (Auto) 0.2 Neutrophils % (Manual) 26 L Band Neutrophils % Lymphocytes % (Manual) 49 H Reactive Lymphs % 18 H Monocytes % (Manual) 5 Eosinophils % (Manual) 1 Basophils % (Manual) 1 Myelocytes % Platelet Estimate Normal Hypochromasia (manual) Poikilocytosis (manual Anisocytosis (manual) Kya Cells PT INR APTT Fibrinogen Fibrin Degrad Products Fibrin Degrad Prod, Qt D-Dimer, Quantitative Puncture Site pCO2 pO2 HCO3 ABG pH ABG Total CO2 ABG O2 Saturation ABG Base Excess ABG Hemoglobin ABG Carboxyhemoglobin POC ABG HHb (Measured) ABG Methemoglobin Bryce Test ABG Potassium VBG pH VBG pCO2 VBG HCO3 VBG Total CO2 VBG O2 Sat (Calc) VBG Base Excess VBG Potassium A-a O2 Difference Respiratory Index Hgb O2 Saturation Glucose Lactate Vent Mode Mechanical Rate FiO2 Tidal Volume PEEP Crit Value Called To Crit Value Called By Crit Value Read Back Blood Gas Notified Time Sodium 147 Potassium 4.0 Chloride 107 Carbon Dioxide 16 L Anion Gap 28 H BUN 15 Creatinine 1.2 Est GFR ( Amer) 59 Est GFR (Non-Af Amer) 48 POC Glucose (mg/dL) 288 H Random Glucose 230 H Calcium 9.4 Phosphorus Magnesium Total Bilirubin 0.3 AST 185 H ALT 116 H Alkaline Phosphatase 93 Total Creatine Kinase 50 CK-MB (Mass) 0.44 Troponin I 0.0720 Total Protein 6.7 Albumin 3.7 Globulin 3.0 Albumin/Globulin Ratio 1.3 Amylase 171 H Lipase 207 Procalcitonin Arterial Blood Potassium Venous Blood Potassium Urine Color Urine Clarity Urine pH Ur Specific [place] Urine Protein Urine Glucose (UA) Urine Ketones Urine Blood Urine Nitrate Urine Bilirubin Urine Urobilinogen Ur Leukocyte Esterase Urine WBC (Auto) Urine RBC (Auto) Urine HCG, Qual Stool Occult Blood Urine Opiates Screen Urine Methadone Screen Ur Barbiturates Screen Ur Phencyclidine Scrn Ur Amphetamines Screen U Benzodiazepines Scrn U Oth Cocaine Metabols U Cannabinoids Screen 07/27/18 07/27/18 07/27/18 02:19 02:55 03:19 WBC RBC Hgb Hct MCV MCH MCHC RDW Plt Count MPV Neut % (Auto) Lymph % (Auto) [place] % (Auto) Eos % (Auto) Baso % (Auto) Neut # (Auto) Lymph # (Auto) [place] # (Auto) Eos # (Auto) Baso # (Auto) Neutrophils % (Manual) Band Neutrophils % Lymphocytes % (Manual) Reactive Lymphs % Monocytes % (Manual) Eosinophils % (Manual) Basophils % (Manual) Myelocytes % Platelet Estimate Hypochromasia (manual) Poikilocytosis (manual Anisocytosis (manual) [place] Cells PT 11.4 INR 1.0 APTT 31 Fibrinogen Fibrin Degrad Products Fibrin Degrad Prod, Qt D-Dimer, Quantitative Cancelled Puncture Site L femoral R bra pCO2 103 H* 71 H* pO2 29 L* 491 H HCO3 ABG pH < 6.80 L* < 6.80 L* ABG Total CO2 ABG O2 Saturation 28.2 L 99.8 H ABG Base Excess ABG Hemoglobin 9.4 L ABG Carboxyhemoglobin 0.5 POC ABG HHb (Measured) 0.2 ABG Methemoglobin 0.6 Bryce Test Na Na ABG Potassium 4.7 VBG pH VBG pCO2 VBG HCO3 VBG Total CO2 VBG O2 Sat (Calc) VBG Base Excess VBG Potassium A-a O2 Difference 555.0 133.0 Respiratory Index 19.1 0.3 Hgb O2 Saturation 98.7 H Glucose 281 H Lactate 17.6 H* Vent Mode Prvc Mechanical Rate 16 FiO2 100.0 100.0 Tidal Volume 450 PEEP 5 Crit Value Called To Dr aga yung Crit Value Called By Rachel love rt Rachel love rt Crit Value Read Back Y Y Blood Gas Notified Time 300 322 Sodium 146.0 Potassium Chloride 110.0 H Carbon Dioxide Anion Gap BUN Creatinine Est GFR ( Amer) Est GFR (Non-Af Amer) POC Glucose (mg/dL) Random Glucose Calcium Phosphorus Magnesium Total Bilirubin AST ALT Alkaline Phosphatase Total Creatine Kinase CK-MB (Mass) Troponin I Total Protein Albumin Globulin Albumin/Globulin Ratio Amylase Lipase Procalcitonin Arterial Blood Potassium 4.7 Venous Blood Potassium Urine Color Urine Clarity Urine pH Ur Specific [place] Urine Protein Urine Glucose (UA) Urine Ketones Urine Blood Urine Nitrate Urine Bilirubin Urine Urobilinogen Ur Leukocyte Esterase Urine WBC (Auto) Urine RBC (Auto) Urine HCG, Qual Stool Occult Blood Urine Opiates Screen Urine Methadone Screen Ur Barbiturates Screen Ur Phencyclidine Scrn Ur Amphetamines Screen U Benzodiazepines Scrn U Oth Cocaine Metabols U Cannabinoids Screen 07/27/18 07/27/18 07/27/18 03:51 04:01 04:02 WBC RBC Hgb Hct MCV MCH MCHC RDW Plt Count MPV Neut % (Auto) Lymph % (Auto) [place] % (Auto) Eos % (Auto) Baso % (Auto) Neut # (Auto) Lymph # (Auto) [place] # (Auto) Eos # (Auto) Baso # (Auto) Neutrophils % (Manual) Band Neutrophils % Lymphocytes % (Manual) Reactive Lymphs % Monocytes % (Manual) Eosinophils % (Manual) Basophils % (Manual) Myelocytes % Platelet Estimate Hypochromasia (manual) Poikilocytosis (manual Anisocytosis (manual) Kya Cells PT INR APTT Fibrinogen Fibrin Degrad Products Fibrin Degrad Prod, Qt D-Dimer, Quantitative Puncture Site pCO2 pO2 HCO3 ABG pH ABG Total CO2 ABG O2 Saturation ABG Base Excess ABG Hemoglobin ABG Carboxyhemoglobin POC ABG HHb (Measured) ABG Methemoglobin Bryce Test ABG Potassium VBG pH VBG pCO2 VBG HCO3 VBG Total CO2 VBG O2 Sat (Calc) VBG Base Excess VBG Potassium A-a O2 Difference Respiratory Index Hgb O2 Saturation Glucose Lactate Vent Mode Mechanical Rate FiO2 Tidal Volume PEEP Crit Value Called To Crit Value Called By Crit Value Read Back Blood Gas Notified Time Sodium Potassium Chloride Carbon Dioxide Anion Gap BUN Creatinine Est GFR ( Amer) Est GFR (Non-Af Amer) POC Glucose (mg/dL) Random Glucose Calcium Phosphorus Magnesium Total Bilirubin AST ALT Alkaline Phosphatase Total Creatine Kinase CK-MB (Mass) Troponin I Total Protein Albumin Globulin Albumin/Globulin Ratio Amylase Lipase Procalcitonin Arterial Blood Potassium Venous Blood Potassium Urine Color Red Urine Clarity Turbid Urine pH 5.0 Ur Specific [place] 1.027 Urine Protein 2+ H Urine Glucose (UA) Normal Urine Ketones Negative Urine Blood 3+ H Urine Nitrate Negative Urine Bilirubin Negative Urine Urobilinogen Normal Ur Leukocyte Esterase Neg Urine WBC (Auto) 24 H Urine RBC (Auto) 99502 H Urine HCG, Qual Negative Stool Occult Blood Urine Opiates Screen Negative Urine Methadone Screen Negative Ur Barbiturates Screen Negative Ur Phencyclidine Scrn Negative Ur Amphetamines Screen Negative U Benzodiazepines Scrn Negative U Oth Cocaine Metabols Negative U Cannabinoids Screen Negative 07/27/18 07/27/18 07/27/18 04:03 06:39 08:17 WBC 20.1 H RBC 3.64 L Hgb 9.5 L D Hct 29.5 L MCV 80.9 L MCH 26.0 L MCHC 32.1 L RDW 13.5 Plt Count 185 MPV 7.6 Neut % (Auto) 88.9 H Lymph % (Auto) 9.5 L [place] % (Auto) 0.9 Eos % (Auto) 0.4 Baso % (Auto) 0.3 Neut # (Auto) 17.9 H Lymph # (Auto) 1.9 B[place] # (Auto) 0.2 Eos # (Auto) 0.1 Baso # (Auto) 0.1 Neutrophils % (Manual) 74 Band Neutrophils % 13 H* Lymphocytes % (Manual) 11 L Reactive Lymphs % Monocytes % (Manual) 1 Eosinophils % (Manual) Basophils % (Manual) Myelocytes % 1 H Platelet Estimate Normal Hypochromasia (manual) Slight Poikilocytosis (manual Slight Anisocytosis (manual) Slight Kya Cells Slight PT INR APTT Fibrinogen Fibrin Degrad Products Fibrin Degrad Prod, Qt D-Dimer, Quantitative > 5250 H Puncture Site R rad pCO2 81 H* pO2 54 L HCO3 13.7 L ABG pH 6.99 L* ABG Total CO2 22.0 ABG O2 Saturation 85.8 L ABG Base Excess -13.3 L ABG Hemoglobin ABG Carboxyhemoglobin POC ABG HHb (Measured) ABG Methemoglobin Bryce Test Pos ABG Potassium 3.8 VBG pH VBG pCO2 VBG HCO3 VBG Total CO2 VBG O2 Sat (Calc) VBG Base Excess VBG Potassium A-a O2 Difference 558.0 Respiratory Index 10.3 Hgb O2 Saturation Glucose 251 H Lactate 5.8 H* Vent Mode Prvc Mechanical Rate 20 FiO2 100.0 Tidal Volume 450 PEEP 5 Crit Value Called To Nito swan rn Crit Value Called By Rachel love rt Crit Value Read Back Y Blood Gas Notified Time 700 Sodium 143.0 Potassium Chloride 113.0 H Carbon Dioxide Anion Gap BUN Creatinine Est GFR ( Amer) Est GFR (Non-Af Amer) POC Glucose (mg/dL) Random Glucose Calcium Phosphorus Magnesium Total Bilirubin AST ALT Alkaline Phosphatase Total Creatine Kinase CK-MB (Mass) Troponin I Total Protein Albumin Globulin Albumin/Globulin Ratio Amylase Lipase Procalcitonin Arterial Blood Potassium 3.8 Venous Blood Potassium Urine Color Urine Clarity Urine pH Ur Specific [place] Urine Protein Urine Glucose (UA) Urine Ketones Urine Blood Urine Nitrate Urine Bilirubin Urine Urobilinogen Ur Leukocyte Esterase Urine WBC (Auto) Urine RBC (Auto) Urine HCG, Qual Stool Occult Blood Urine Opiates Screen Urine Methadone Screen Ur Barbiturates Screen Ur Phencyclidine Scrn Ur Amphetamines Screen U Benzodiazepines Scrn U Oth Cocaine Metabols U Cannabinoids Screen 07/27/18 07/27/18 07/27/18 08:17 09:35 10:04 WBC RBC Hgb Hct MCV MCH MCHC RDW Plt Count MPV Neut % (Auto) Lymph % (Auto) [place] % (Auto) Eos % (Auto) Baso % (Auto) Neut # (Auto) Lymph # (Auto) [place] # (Auto) Eos # (Auto) Baso # (Auto) Neutrophils % (Manual) Band Neutrophils % Lymphocytes % (Manual) Reactive Lymphs % Monocytes % (Manual) Eosinophils % (Manual) Basophils % (Manual) Myelocytes % Platelet Estimate Hypochromasia (manual) Poikilocytosis (manual Anisocytosis (manual) Kya Cells PT Cancelled INR Cancelled APTT Cancelled Fibrinogen Cancelled Fibrin Degrad Products Cancelled Fibrin Degrad Prod, Qt Cancelled D-Dimer, Quantitative Puncture Site pCO2 pO2 HCO3 ABG pH ABG Total CO2 ABG O2 Saturation ABG Base Excess ABG Hemoglobin ABG Carboxyhemoglobin POC ABG HHb (Measured) ABG Methemoglobin Bryce Test ABG Potassium VBG pH VBG pCO2 VBG HCO3 VBG Total CO2 VBG O2 Sat (Calc) VBG Base Excess VBG Potassium A-a O2 Difference Respiratory Index Hgb O2 Saturation Glucose Lactate Vent Mode Mechanical Rate FiO2 Tidal Volume PEEP Crit Value Called To Crit Value Called By Crit Value Read Back Blood Gas Notified Time Sodium 149 H Potassium 3.4 L Chloride 110 H Carbon Dioxide 29 Anion Gap 13 BUN 20 H Creatinine 1.3 H Est GFR ( Amer) 53 Est GFR (Non-Af Amer) 44 POC Glucose (mg/dL) Random Glucose 186 H Calcium 6.5 L Phosphorus 8.6 H Magnesium 2.1 Total Bilirubin 0.5 AST 693 H D ALT 378 H D Alkaline Phosphatase 192 H D Total Creatine Kinase CK-MB (Mass) Troponin I Total Protein 4.5 L Albumin 2.2 L D Globulin 2.2 Albumin/Globulin Ratio 1.0 Amylase Lipase Procalcitonin 4.31 H Arterial Blood Potassium Venous Blood Potassium Urine Color Urine Clarity Urine pH Ur Specific [place] Urine Protein Urine Glucose (UA) Urine Ketones Urine Blood Urine Nitrate Urine Bilirubin Urine Urobilinogen Ur Leukocyte Esterase Urine WBC (Auto) Urine RBC (Auto) Urine HCG, Qual Stool Occult Blood Urine Opiates Screen Urine Methadone Screen Ur Barbiturates Screen Ur Phencyclidine Scrn Ur Amphetamines Screen U Benzodiazepines Scrn U Oth Cocaine Metabols U Cannabinoids Screen 07/27/18 07/27/18 07/27/18 10:17 10:18 13:29 WBC RBC Hgb Hct MCV MCH MCHC RDW Plt Count MPV Neut % (Auto) Lymph % (Auto) [place] % (Auto) Eos % (Auto) Baso % (Auto) Neut # (Auto) Lymph # (Auto) [place] # (Auto) Eos # (Auto) Baso # (Auto) Neutrophils % (Manual) Band Neutrophils % Lymphocytes % (Manual) Reactive Lymphs % Monocytes % (Manual) Eosinophils % (Manual) Basophils % (Manual) Myelocytes % Platelet Estimate Hypochromasia (manual) Poikilocytosis (manual Anisocytosis (manual) Kya Cells PT > 320.0 H D INR > 10.0 D APTT > 400 H* D Fibrinogen 67 L Fibrin Degrad Products Positive H Fibrin Degrad Prod, Qt >40 H D-Dimer, Quantitative Puncture Site pCO2 pO2 30 HCO3 ABG pH ABG Total CO2 ABG O2 Saturation ABG Base Excess ABG Hemoglobin ABG Carboxyhemoglobin POC ABG HHb (Measured) ABG Methemoglobin Bryce Test ABG Potassium VBG pH 7.02 L* VBG pCO2 77 H* VBG HCO3 13.5 VBG Total CO2 22.3 VBG O2 Sat (Calc) 58.5 VBG Base Excess -12.3 L VBG Potassium 2.4 L* A-a O2 Difference Respiratory Index Hgb O2 Saturation Glucose 107 H Lactate 4.1 H* Vent Mode Mechanical Rate FiO2 100.0 Tidal Volume PEEP 5 Crit Value Called To Dr merritt Crit Value 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 Crit Value Read Back Y Blood Gas Notified Time 1335 Sodium 152.0 H Potassium Chloride 124.0 H Carbon Dioxide Anion Gap BUN Creatinine Est GFR ( Amer) Est GFR (Non-Af Amer) POC Glucose (mg/dL) Random Glucose Calcium Phosphorus Magnesium Total Bilirubin AST ALT Alkaline Phosphatase Total Creatine Kinase CK-MB (Mass) Troponin I Total Protein Albumin Globulin Albumin/Globulin Ratio Amylase Lipase Procalcitonin Arterial Blood Potassium Venous Blood Potassium 2.4 L* Urine Color Urine Clarity Urine pH Ur Specific [place] Urine Protein Urine Glucose (UA) Urine Ketones Urine Blood Urine Nitrate Urine Bilirubin Urine Urobilinogen Ur Leukocyte Esterase Urine WBC (Auto) Urine RBC (Auto) Urine HCG, Qual Stool Occult Blood Urine Opiates Screen Urine Methadone Screen Ur Barbiturates Screen Ur Phencyclidine Scrn Ur Amphetamines Screen U Benzodiazepines Scrn U Oth Cocaine Metabols U Cannabinoids Screen 07/27/18 07/27/18 07/27/18 13:42 18:11 18:26 WBC 25.8 H RBC 3.44 L Hgb 8.6 L Hct 27.7 L MCV 80.4 L MCH 24.9 L MCHC 31.0 L RDW 13.3 Plt Count 160 MPV 8.7 Neut % (Auto) 94.7 H Lymph % (Auto) 3.1 L [place] % (Auto) 1.5 Eos % (Auto) 0.6 Baso % (Auto) 0.1 Neut # (Auto) 24.4 H Lymph # (Auto) 0.8 L [place] # (Auto) 0.4 Eos # (Auto) 0.2 Baso # (Auto) 0.0 Neutrophils % (Manual) Band Neutrophils % Lymphocytes % (Manual) Reactive Lymphs % Monocytes % (Manual) Eosinophils % (Manual) Basophils % (Manual) Myelocytes % Platelet Estimate Hypochromasia (manual) Poikilocytosis (manual Anisocytosis (manual) Kya Cells PT > 320.0 H INR > 10.0 APTT > 400 H* Fibrinogen Fibrin Degrad Products Fibrin Degrad Prod, Qt D-Dimer, Quantitative Puncture Site pCO2 pO2 60 H HCO3 ABG pH ABG Total CO2 ABG O2 Saturation ABG Base Excess ABG Hemoglobin ABG Carboxyhemoglobin POC ABG HHb (Measured) ABG Methemoglobin Bryce Test ABG Potassium VBG pH 7.20 L VBG pCO2 45 VBG HCO3 16.6 VBG Total CO2 19.0 L VBG O2 Sat (Calc) 93.2 H VBG Base Excess -10.2 L VBG Potassium 3.9 A-a O2 Difference Respiratory Index Hgb O2 Saturation Glucose 140 H Lactate 6.1 H* Vent Mode Mechanical Rate FiO2 Tidal Volume PEEP Crit Value Called To Narinder herron Crit Value Called By Rinku Crit Value Read Back Y Blood Gas Notified Time 1814 Sodium 149.0 H Potassium Chloride 121.0 H Carbon Dioxide Anion Gap BUN Creatinine Est GFR ( Amer) Est GFR (Non-Af Amer) POC Glucose (mg/dL) Random Glucose Calcium Phosphorus Magnesium Total Bilirubin AST ALT Alkaline Phosphatase Total Creatine Kinase CK-MB (Mass) Troponin I Total Protein Albumin Globulin Albumin/Globulin Ratio Amylase Lipase Procalcitonin Arterial Blood Potassium Venous Blood Potassium 3.9 Urine Color Urine Clarity Urine pH Ur Specific [place] Urine Protein Urine Glucose (UA) Urine Ketones Urine Blood Urine Nitrate Urine Bilirubin Urine Urobilinogen Ur Leukocyte Esterase Urine WBC (Auto) Urine RBC (Auto) Urine HCG, Qual Stool Occult Blood Urine Opiates Screen Urine Methadone Screen Ur Barbiturates Screen Ur Phencyclidine Scrn Ur Amphetamines Screen U Benzodiazepines Scrn U Oth Cocaine Metabols U Cannabinoids Screen 07/27/18 07/27/18 07/27/18 18:26 18:26 18:26 WBC RBC Hgb Hct MCV MCH MCHC RDW Plt Count MPV Neut % (Auto) Lymph % (Auto) [place] % (Auto) Eos % (Auto) Baso % (Auto) Neut # (Auto) Lymph # (Auto) [place] # (Auto) Eos # (Auto) Baso # (Auto) Neutrophils % (Manual) Band Neutrophils % Lymphocytes % (Manual) Reactive Lymphs % Monocytes % (Manual) Eosinophils % (Manual) Basophils % (Manual) Myelocytes % Platelet Estimate Hypochromasia (manual) Poikilocytosis (manual Anisocytosis (manual) Kya Cells PT 27.4 H D INR 2.5 D APTT 41 H D Fibrinogen Fibrin Degrad Products Fibrin Degrad Prod, Qt D-Dimer, Quantitative Puncture Site pCO2 pO2 HCO3 ABG pH ABG Total CO2 ABG O2 Saturation ABG Base Excess ABG Hemoglobin ABG Carboxyhemoglobin POC ABG HHb (Measured) ABG Methemoglobin Bryce Test ABG Potassium VBG pH VBG pCO2 VBG HCO3 VBG Total CO2 VBG O2 Sat (Calc) VBG Base Excess VBG Potassium A-a O2 Difference Respiratory Index Hgb O2 Saturation Glucose Lactate Vent Mode Mechanical Rate FiO2 Tidal Volume PEEP Crit Value Called To Crit Value Called By Crit Value Read Back Blood Gas Notified Time Sodium 150 H Potassium 4.1 Chloride 119 H Carbon Dioxide 20 L Anion Gap 16 BUN 28 H Creatinine 2.0 H Est GFR ( Amer) 32 Est GFR (Non-Af Amer) 27 POC Glucose (mg/dL) Random Glucose 137 H Calcium 5.9 L* Phosphorus 6.4 H Magnesium 1.8 Total Bilirubin 0.5 AST 709 H ALT 318 H Alkaline Phosphatase 114 Total Creatine Kinase CK-MB (Mass) Troponin I Total Protein 4.0 L Albumin 1.9 L Globulin 2.1 L Albumin/Globulin Ratio 0.9 L Amylase Lipase Procalcitonin Arterial Blood Potassium Venous Blood Potassium Urine Color Urine Clarity Urine pH Ur Specific [place] Urine Protein Urine Glucose (UA) Urine Ketones Urine Blood Urine Nitrate Urine Bilirubin Urine Urobilinogen Ur Leukocyte Esterase Urine WBC (Auto) Urine RBC (Auto) Urine HCG, Qual Stool Occult Blood Positive H Urine Opiates Screen Urine Methadone Screen Ur Barbiturates Screen Ur Phencyclidine Scrn Ur Amphetamines Screen U Benzodiazepines Scrn U Oth Cocaine Metabols U Cannabinoids Screen Assessment & Plan - Assessment and Plan (Free Text) Assessment: Patient is a 48 year old female with past medical history of anxiety presenting to ED with shortness of breath, syncope, and chest pain, went into cardiac arrest, now s/p intubation. Plan: Neuro: - unresponsive - Head CT shows no acute intracranial abnormality, left forehead soft tissue swelling - Nimbex drip, precedex Pulm: - s/p intubation - D-dimer > 5250 - CXR shows ill-defined perihilar consolidation may represent pneumonia or possible mass. Mild cardiomegaly, moderate pulmonary venous congestion. - maintain SPO2> 92 % - Duonebs 3 ml INH RQ6 CV: - maintain MAP> 65 - Vasopressors: levophed, phenylephrine, vasopressin - Chest CT shows extensive bilateral lower lobe proximal PE, smaller emboli within upper lobes and middle lobe, cardiomegaly - Followup venous dopplers - Followup ECHO - Cardiology consulted. Appreciate recs. GI: - Abd/pelvis CT shows mild ileus, questionable enteritis, postoperative changes of stomach - Diarrhea noted. Followup FOBT, stool culture, salmonella, shiga toxins, c.diff - Protonix 40 mg IV Q12 - NPO Renal: - monitor I and O - monitor and replete electrolytes Endo: - maintain euglycemia with blood sugars 140-180 - holding ISS Heme: - monitor H&H - Heparin 4000 units IV given once - Heme/onc consulted. Appreciate recs. ID: - Afebrile, WBC count on admission 15.8 - Followup blood cultures, urine cultures - Flagyl 500 mg IV Q8H - Zosyn 3.375 gm IV Q6H - Vancomycin 1 g IV Q12H Dispo: ICU, s/p intubation FEN: NPO Access: central line, peripheral IVs Consults: Cardio, Neuro PPX: Protonix for GI, SCDs, heparin 5000 units SC Q8 Patient seen, reviewed, and discussed with attending, Dr. Narinder Chowdary PGY-1 - Date & Time Date: 07/27/18 Time: 07:00
[2018-07-27] MEDS ORDERED: Calcium Chloride 1000 mg/10 ml Syringe IV ONE (19:18)
[2018-07-27 19:23] LABS: BANDS 9 % (0-2); LYMPHOCYTE 2 % (20-40); MONOCYTE 1 % (0-10); NEUTROPHIL 88 % (50-75); TOTAL CELLS COUNTED 100
[2018-07-27 19:24] LABS: PLATELET ESTIMATE NORMAL (NORMAL)
[2018-07-27] MEDS: metroNIDAZOLE IV 500 mg/100 ml 500 MG/100 ML BAG IVPB SCH (19:38)
[2018-07-27] MEDS: Albumin Human 25% (12.5 gm/50 ml) IV SCH ×3 (20:08→21:10)
--- NOTE | 2018-07-27 21:11 | CP.PCM.CON ---
History of Present Illness - History of Present Illness History of Present Illness: 48 year old female with a history of anxiety, presenting with syncopal episode, fount to be in afib s/p cardiac arrest, bilateral PE, DVT, DIC, on heparin drip. The patient is currently vented and I am unable to obtain a history. Review of her medical records shows b/l PE and LE DVT. She apparently took a bus trip to [place] and is on OCP's. Her fibrinogen in noted low and she is on a heparin drip. Past medical, surgical, family, social history cannot be obtained from the patient. Allergies: Per documentation, NKA Past Patient History - Infectious Disease Hx of Infectious Diseases: None - Past Medical History & Family History Past Medical History?: Yes - Past Social History Smoking Status: Never Smoked - CARDIAC Hx Cardiac Disorders: (unable to obtain) - PULMONARY Hx Respiratory Disorders: (unable to obtain) - NEUROLOGICAL Hx Neurological Disorder: (unable to obtain) - HEENT Hx HEENT Problems: (unable to obtain) - RENAL Hx Chronic Kidney Disease: (unable to obtain) - ENDOCRINE/METABOLIC Hx Endocrine Disorders: (unable to obtain) - HEMATOLOGICAL/ONCOLOGICAL Hx Blood Disorders: (unable to obtain) - INTEGUMENTARY Hx Dermatological Problems: (unable to obtain) - MUSCULOSKELETAL/RHEUMATOLOGICAL Hx Musculoskeletal Disorders: (unable to obtain) - GASTROINTESTINAL Hx Gastrointestinal Disorders: (unable to obtain) - GENITOURINARY/GYNECOLOGICAL Hx Genitourinary Disorders: (unable to obtain) - PSYCHIATRIC Hx Anxiety: Yes Hx Substance Use: No - SURGICAL HISTORY Hx Surgeries: Yes (As per Family Member) Hx Section: Yes (x2) Other/Comment: Bariatric Sx - ANESTHESIA Hx Anesthesia: Yes Hx Anesthesia Reactions: No Hx Malignant Hyperthermia: No Meds Allergies/Adverse Reactions: Allergies Allergy/AdvReac Type Severity Reaction Status Date / Time No Known Allergies Allergy Unverified 07/27/18 02:28 - Medications Medications: Current Medications Heparin Sodium/Sodium Chloride (Heparin 41387 Units/250ml 1/2 Normal Saline) 25,000 units in 250 mls @ 12.247 mls/hr IV .[id number] PRN; Protocol PRN Reason: ADJUST RATE PER PROTOCOL Last Titration: 07/27/18 18:30 Dose: 16 units/kg/hr, 11.612 mls/hr Norepinephrine Bitartrate 4 mg (/ Sodium Chloride) 250 mls @ 15 mls/hr IV .[id number] PRN; Protocol PRN Reason: TITRATE PER MD ORDER Last Titration: 07/27/18 19:39 Dose: 15 mcg/min, 56.25 mls/hr Cisatracurium Besylate 100 mg/ (Dextrose) 250 mls @ 32.66 mls/hr IV .[id number] PRN; Protocol PRN Reason: Agitation Last Titration: 07/27/18 18:36 Dose: 2.5 mcg/kg/min, 27.22 mls/hr Piperacillin Sod/Tazobactam (Sod 3.375 gm/ Sodium Chloride) 100 mls @ 200 mls/hr IVPB Q6H KACY; Protocol Last Admin: 07/27/18 21:03 Dose: 200 mls/hr Vancomycin HCl 1,000 mg/ (Sodium Chloride) 250 mls @ 166.6 mls/hr IVPB Q12H KACY; Protocol Last Admin: 07/27/18 10:07 Dose: 166.6 mls/hr Phenylephrine HCl 30 mg/ (Sodium Chloride) 250 mls @ 10 mls/hr IV .Q24H PRN; Protocol PRN Reason: TITRATE PER MD ORDER Last Titration: 07/27/18 18:36 Dose: 100 mcg/min, 50 mls/hr Vasopressin 40 units/ Sodium (Chloride) 40 mls @ 1.2 mls/hr IV .Q24H KACY; Protocol Last Titration: 07/27/18 15:00 Dose: 0.04 units/min, 2.4 mls/hr Sodium Chloride (Sodium Chloride 0.9%) 1,000 mls @ 200 mls/hr IV .Q5H KACY Last Admin: 07/27/18 20:00 Dose: 200 mls/hr Dexmedetomidine HCl 200 mcg/ (Sodium Chloride) 50 mls @ 3.63 mls/hr IV TITR PRN; Protocol PRN Reason: Sedation Last Admin: 07/27/18 19:35 Dose: 0.3 mcg/kg/hr, 5.44 mls/hr Metronidazole (Flagyl) 500 mg in 100 mls @ 100 mls/hr IVPB Q8H KACY; Protocol Last Admin: 07/27/18 19:38 Dose: 100 mls/hr Lorazepam (Ativan) 2 mg IVP Q4 PRN PRN Reason: Anxiety Methylprednisolone (Solu-Medrol) 40 mg IVP TID [facility] Last Admin: 07/27/18 17:24 Dose: 40 mg Pantoprazole Sodium (Protonix Inj) 40 mg IVP Q12 [facility] Last Admin: 07/27/18 21:04 Dose: 40 mg Physical Exam - Head Exam Head Exam: ATRAUMATIC - Eye Exam Eye Exam: Normal appearance - ENT Exam ENT Exam: Mucous Membranes Dry - Respiratory Exam Respiratory Exam: Decreased Breath Sounds - Cardiovascular Exam Cardiovascular Exam: +S1, +S2 - GI/Abdominal Exam GI & Abdominal Exam: Normal Bowel Sounds - Extremities Exam Extremities exam: Positive for: pedal edema - Skin Skin Exam: Warm Results - Vital Signs Recent Vital Signs: Last Vital Signs Temp 98.5 F 07/27/18 16:00 Pulse 113 H 07/27/18 20:00 Resp 24 07/27/18 20:00 BP 84/64 L 07/27/18 18:27 Pulse Ox 86 L 07/27/18 20:00 - Labs Result Diagrams: 07/29/18 06:15 07/29/18 06:15 Labs: Laboratory Results - last 24 hr 07/27/18 07/27/18 07/27/18 02:09 02:16 02:16 WBC 15.8 H RBC 4.61 Hgb 12.0 Hct 37.8 MCV 81.9 MCH 26.1 L MCHC 31.8 L RDW 13.6 Plt Count 160 MPV 10.0 Neut % (Auto) 22.5 L Lymph % (Auto) 71.6 H [place] % (Auto) 3.4 Eos % (Auto) 1.1 Baso % (Auto) 1.4 Neut # (Auto) 3.6 Lymph # (Auto) 11.3 H [place] # (Auto) 0.5 Eos # (Auto) 0.2 Baso # (Auto) 0.2 Neutrophils % (Manual) 26 L Band Neutrophils % Lymphocytes % (Manual) 49 H Reactive Lymphs % 18 H Monocytes % (Manual) 5 Eosinophils % (Manual) 1 Basophils % (Manual) 1 Myelocytes % Platelet Estimate Normal RBC Morphology Hypochromasia (manual) Poikilocytosis (manual Anisocytosis (manual) [place] Cells PT INR APTT Fibrinogen Fibrin Degrad Products Fibrin Degrad Prod, Qt D-Dimer, Quantitative Puncture Site pCO2 pO2 HCO3 ABG pH ABG Total CO2 ABG O2 Saturation ABG Base Excess ABG Hemoglobin ABG Carboxyhemoglobin POC ABG HHb (Measured) ABG Methemoglobin Bryce Test ABG Potassium VBG pH VBG pCO2 VBG HCO3 VBG Total CO2 VBG O2 Sat (Calc) VBG Base Excess VBG Potassium A-a O2 Difference Respiratory Index Hgb O2 Saturation Glucose Lactate Vent Mode Mechanical Rate FiO2 Tidal Volume PEEP Crit Value Called To Crit Value Called By Crit Value Read Back Blood Gas Notified Time Sodium 147 Potassium 4.0 Chloride 107 Carbon Dioxide 16 L Anion Gap 28 H BUN 15 Creatinine 1.2 Est GFR ( Amer) 59 Est GFR (Non-Af Amer) 48 POC Glucose (mg/dL) 288 H Random Glucose 230 H Calcium 9.4 Phosphorus Magnesium Total Bilirubin 0.3 AST 185 H ALT 116 H Alkaline Phosphatase 93 Total Creatine Kinase 50 CK-MB (Mass) 0.44 Troponin I 0.0720 Total Protein 6.7 Albumin 3.7 Globulin 3.0 Albumin/Globulin Ratio 1.3 Amylase 171 H Lipase 207 Procalcitonin Arterial Blood Potassium Venous Blood Potassium Urine Color Urine Clarity Urine pH Ur Specific [place] Urine Protein Urine Glucose (UA) Urine Ketones Urine Blood Urine Nitrate Urine Bilirubin Urine Urobilinogen Ur Leukocyte Esterase Urine WBC (Auto) Urine RBC (Auto) Urine HCG, Qual Stool Occult Blood Urine Opiates Screen Urine Methadone Screen Ur Barbiturates Screen Ur Phencyclidine Scrn Ur Amphetamines Screen U Benzodiazepines Scrn U Oth Cocaine Metabols U Cannabinoids Screen Blood Type Blood Type Confirm Antibody Screen 07/27/18 07/27/18 07/27/18 02:19 02:55 03:19 WBC RBC Hgb Hct MCV MCH MCHC RDW Plt Count MPV Neut % (Auto) Lymph % (Auto) [place] % (Auto) Eos % (Auto) Baso % (Auto) Neut # (Auto) Lymph # (Auto) [place] # (Auto) Eos # (Auto) Baso # (Auto) Neutrophils % (Manual) Band Neutrophils % Lymphocytes % (Manual) Reactive Lymphs % Monocytes % (Manual) Eosinophils % (Manual) Basophils % (Manual) Myelocytes % Platelet Estimate RBC Morphology Hypochromasia (manual) Poikilocytosis (manual Anisocytosis (manual) Kya Cells PT 11.4 INR 1.0 APTT 31 Fibrinogen Fibrin Degrad Products Fibrin Degrad Prod, Qt D-Dimer, Quantitative Cancelled Puncture Site L femoral R bra pCO2 103 H* 71 H* pO2 29 L* 491 H HCO3 ABG pH < 6.80 L* < 6.80 L* ABG Total CO2 ABG O2 Saturation 28.2 L 99.8 H ABG Base Excess ABG Hemoglobin 9.4 L ABG Carboxyhemoglobin 0.5 POC ABG HHb (Measured) 0.2 ABG Methemoglobin 0.6 Bryce Test Na Na ABG Potassium 4.7 VBG pH VBG pCO2 VBG HCO3 VBG Total CO2 VBG O2 Sat (Calc) VBG Base Excess VBG Potassium A-a O2 Difference 555.0 133.0 Respiratory Index 19.1 0.3 Hgb O2 Saturation 98.7 H Glucose 281 H Lactate 17.6 H* Vent Mode Prvc Mechanical Rate 16 FiO2 100.0 100.0 Tidal Volume 450 PEEP 5 Crit Value Called To Dr aga yung Crit Value Called By Rachel love rt Rachel love rt Crit Value Read Back Y Y Blood Gas Notified Time 300 322 Sodium 146.0 Potassium Chloride 110.0 H Carbon Dioxide Anion Gap BUN Creatinine Est GFR ( Amer) Est GFR (Non-Af Amer) POC Glucose (mg/dL) Random Glucose Calcium Phosphorus Magnesium Total Bilirubin AST ALT Alkaline Phosphatase Total Creatine Kinase CK-MB (Mass) Troponin I Total Protein Albumin Globulin Albumin/Globulin Ratio Amylase Lipase Procalcitonin Arterial Blood Potassium 4.7 Venous Blood Potassium Urine Color Urine Clarity Urine pH Ur Specific [place] Urine Protein Urine Glucose (UA) Urine Ketones Urine Blood Urine Nitrate Urine Bilirubin Urine Urobilinogen Ur Leukocyte Esterase Urine WBC (Auto) Urine RBC (Auto) Urine HCG, Qual Stool Occult Blood Urine Opiates Screen Urine Methadone Screen Ur Barbiturates Screen Ur Phencyclidine Scrn Ur Amphetamines Screen U Benzodiazepines Scrn U Oth Cocaine Metabols U Cannabinoids Screen Blood Type Blood Type Confirm Antibody Screen 07/27/18 07/27/18 07/27/18 03:51 04:01 04:02 WBC RBC Hgb Hct MCV MCH MCHC RDW Plt Count MPV Neut % (Auto) Lymph % (Auto) [place] % (Auto) Eos % (Auto) Baso % (Auto) Neut # (Auto) Lymph # (Auto) [place] # (Auto) Eos # (Auto) Baso # (Auto) Neutrophils % (Manual) Band Neutrophils % Lymphocytes % (Manual) Reactive Lymphs % Monocytes % (Manual) Eosinophils % (Manual) Basophils % (Manual) Myelocytes % Platelet Estimate RBC Morphology Hypochromasia (manual) Poikilocytosis (manual Anisocytosis (manual) Kya Cells PT INR APTT Fibrinogen Fibrin Degrad Products Fibrin Degrad Prod, Qt D-Dimer, Quantitative Puncture Site pCO2 pO2 HCO3 ABG pH ABG Total CO2 ABG O2 Saturation ABG Base Excess ABG Hemoglobin ABG Carboxyhemoglobin POC ABG HHb (Measured) ABG Methemoglobin Bryce Test ABG Potassium VBG pH VBG pCO2 VBG HCO3 VBG Total CO2 VBG O2 Sat (Calc) VBG Base Excess VBG Potassium A-a O2 Difference Respiratory Index Hgb O2 Saturation Glucose Lactate Vent Mode Mechanical Rate FiO2 Tidal Volume PEEP Crit Value Called To Crit Value Called By Crit Value Read Back Blood Gas Notified Time Sodium Potassium Chloride Carbon Dioxide Anion Gap BUN Creatinine Est GFR ( Amer) Est GFR (Non-Af Amer) POC Glucose (mg/dL) Random Glucose Calcium Phosphorus Magnesium Total Bilirubin AST ALT Alkaline Phosphatase Total Creatine Kinase CK-MB (Mass) Troponin I Total Protein Albumin Globulin Albumin/Globulin Ratio Amylase Lipase Procalcitonin Arterial Blood Potassium Venous Blood Potassium Urine Color Red Urine Clarity Turbid Urine pH 5.0 Ur Specific [place] 1.027 Urine Protein 2+ H Urine Glucose (UA) Normal Urine Ketones Negative Urine Blood 3+ H Urine Nitrate Negative Urine Bilirubin Negative Urine Urobilinogen Normal Ur Leukocyte Esterase Neg Urine WBC (Auto) 24 H Urine RBC (Auto) 95394 H Urine HCG, Qual Negative Stool Occult Blood Urine Opiates Screen Negative Urine Methadone Screen Negative Ur Barbiturates Screen Negative Ur Phencyclidine Scrn Negative Ur Amphetamines Screen Negative U Benzodiazepines Scrn Negative U Oth Cocaine Metabols Negative U Cannabinoids Screen Negative Blood Type Blood Type Confirm Antibody Screen 07/27/18 07/27/18 07/27/18 04:03 06:39 08:17 WBC 20.1 H RBC 3.64 L Hgb 9.5 L D Hct 29.5 L MCV 80.9 L MCH 26.0 L MCHC 32.1 L RDW 13.5 Plt Count 185 MPV 7.6 Neut % (Auto) 88.9 H Lymph % (Auto) 9.5 L [place] % (Auto) 0.9 Eos % (Auto) 0.4 Baso % (Auto) 0.3 Neut # (Auto) 17.9 H Lymph # (Auto) 1.9 [place] # (Auto) 0.2 Eos # (Auto) 0.1 Baso # (Auto) 0.1 Neutrophils % (Manual) 74 Band Neutrophils % 13 H* Lymphocytes % (Manual) 11 L Reactive Lymphs % Monocytes % (Manual) 1 Eosinophils % (Manual) Basophils % (Manual) Myelocytes % 1 H Platelet Estimate Normal RBC Morphology Hypochromasia (manual) Slight Poikilocytosis (manual Slight Anisocytosis (manual) Slight [place] Cells Slight PT INR APTT Fibrinogen Fibrin Degrad Products Fibrin Degrad Prod, Qt D-Dimer, Quantitative > 5250 H Puncture Site R rad pCO2 81 H* pO2 54 L HCO3 13.7 L ABG pH 6.99 L* ABG Total CO2 22.0 ABG O2 Saturation 85.8 L ABG Base Excess -13.3 L ABG Hemoglobin ABG Carboxyhemoglobin POC ABG HHb (Measured) ABG Methemoglobin Bryce Test Pos ABG Potassium 3.8 VBG pH VBG pCO2 VBG HCO3 VBG Total CO2 VBG O2 Sat (Calc) VBG Base Excess VBG Potassium A-a O2 Difference 558.0 Respiratory Index 10.3 Hgb O2 Saturation Glucose 251 H Lactate 5.8 H* Vent Mode Prvc Mechanical Rate 20 FiO2 100.0 Tidal Volume 450 PEEP 5 Crit Value Called To Nito swan rn Crit Value Called By Rachel love rt Crit Value Read Back Y Blood Gas Notified Time 700 Sodium 143.0 Potassium Chloride 113.0 H Carbon Dioxide Anion Gap BUN Creatinine Est GFR ( Amer) Est GFR (Non-Af Amer) POC Glucose (mg/dL) Random Glucose Calcium Phosphorus Magnesium Total Bilirubin AST ALT Alkaline Phosphatase Total Creatine Kinase CK-MB (Mass) Troponin I Total Protein Albumin Globulin Albumin/Globulin Ratio Amylase Lipase Procalcitonin Arterial Blood Potassium 3.8 Venous Blood Potassium Urine Color Urine Clarity Urine pH Ur Specific [place] Urine Protein Urine Glucose (UA) Urine Ketones Urine Blood Urine Nitrate Urine Bilirubin Urine Urobilinogen Ur Leukocyte Esterase Urine WBC (Auto) Urine RBC (Auto) Urine HCG, Qual Stool Occult Blood Urine Opiates Screen Urine Methadone Screen Ur Barbiturates Screen Ur Phencyclidine Scrn Ur Amphetamines Screen U Benzodiazepines Scrn U Oth Cocaine Metabols U Cannabinoids Screen Blood Type Blood Type Confirm Antibody Screen 10/01/18 10/01/18 10/01/18 08:17 09:35 10:04 WBC RBC Hgb Hct MCV MCH MCHC RDW Plt Count MPV Neut % (Auto) Lymph % (Auto) [place] % (Auto) Eos % (Auto) Baso % (Auto) Neut # (Auto) Lymph # (Auto) [place] # (Auto) Eos # (Auto) Baso # (Auto) Neutrophils % (Manual) Band Neutrophils % Lymphocytes % (Manual) Reactive Lymphs % Monocytes % (Manual) Eosinophils % (Manual) Basophils % (Manual) Myelocytes % Platelet Estimate RBC Morphology Hypochromasia (manual) Poikilocytosis (manual Anisocytosis (manual) [place] Cells PT Cancelled INR Cancelled APTT Cancelled Fibrinogen Cancelled Fibrin Degrad Products Cancelled Fibrin Degrad Prod, Qt Cancelled D-Dimer, Quantitative Puncture Site pCO2 pO2 HCO3 ABG pH ABG Total CO2 ABG O2 Saturation ABG Base Excess ABG Hemoglobin ABG Carboxyhemoglobin POC ABG HHb (Measured) ABG Methemoglobin Bryce Test ABG Potassium VBG pH VBG pCO2 VBG HCO3 VBG Total CO2 VBG O2 Sat (Calc) VBG Base Excess VBG Potassium A-a O2 Difference Respiratory Index Hgb O2 Saturation Glucose Lactate Vent Mode Mechanical Rate FiO2 Tidal Volume PEEP Crit Value Called To Crit Value Called By Crit Value Read Back Blood Gas Notified Time Sodium 149 H Potassium 3.4 L Chloride 110 H Carbon Dioxide 29 Anion Gap 13 BUN 20 H Creatinine 1.3 H Est GFR ( Amer) 53 Est GFR (Non-Af Amer) 44 POC Glucose (mg/dL) Random Glucose 186 H Calcium 6.5 L Phosphorus 8.6 H Magnesium 2.1 Total Bilirubin 0.5 AST 693 H D ALT 378 H D Alkaline Phosphatase 192 H D Total Creatine Kinase CK-MB (Mass) Troponin I Total Protein 4.5 L Albumin 2.2 L D Globulin 2.2 Albumin/Globulin Ratio 1.0 Amylase Lipase Procalcitonin 4.31 H Arterial Blood Potassium Venous Blood Potassium Urine Color Urine Clarity Urine pH Ur Specific [place] Urine Protein Urine Glucose (UA) Urine Ketones Urine Blood Urine Nitrate Urine Bilirubin Urine Urobilinogen Ur Leukocyte Esterase Urine WBC (Auto) Urine RBC (Auto) Urine HCG, Qual Stool Occult Blood Urine Opiates Screen Urine Methadone Screen Ur Barbiturates Screen Ur Phencyclidine Scrn Ur Amphetamines Screen U Benzodiazepines Scrn U Oth Cocaine Metabols U Cannabinoids Screen Blood Type Blood Type Confirm Antibody Screen 07/27/18 07/27/18 07/27/18 10:17 10:18 13:29 WBC RBC Hgb Hct MCV MCH MCHC RDW Plt Count MPV Neut % (Auto) Lymph % (Auto) [place] % (Auto) Eos % (Auto) Baso % (Auto) Neut # (Auto) Lymph # (Auto) [place] # (Auto) Eos # (Auto) Baso # (Auto) Neutrophils % (Manual) Band Neutrophils % Lymphocytes % (Manual) Reactive Lymphs % Monocytes % (Manual) Eosinophils % (Manual) Basophils % (Manual) Myelocytes % Platelet Estimate RBC Morphology Hypochromasia (manual) Poikilocytosis (manual Anisocytosis (manual) Kya Cells PT > 320.0 H D INR > 10.0 D APTT > 400 H* D Fibrinogen 67 L Fibrin Degrad Products Positive H Fibrin Degrad Prod, Qt >40 H D-Dimer, Quantitative Puncture Site pCO2 pO2 30 HCO3 ABG pH ABG Total CO2 ABG O2 Saturation ABG Base Excess ABG Hemoglobin ABG Carboxyhemoglobin POC ABG HHb (Measured) ABG Methemoglobin Bryce Test ABG Potassium VBG pH 7.02 L* VBG pCO2 77 H* VBG HCO3 13.5 VBG Total CO2 22.3 VBG O2 Sat (Calc) 58.5 VBG Base Excess -12.3 L VBG Potassium 2.4 L* A-a O2 Difference Respiratory Index Hgb O2 Saturation Glucose 107 H Lactate 4.1 H* Vent Mode Mechanical Rate FiO2 100.0 Tidal Volume PEEP 5 Crit Value Called To Dr merritt Crit Value Called By Maribell holliday clay carman Crit Value Read Back Y Blood Gas Notified Time 1335 Sodium 152.0 H Potassium Chloride 124.0 H Carbon Dioxide Anion Gap BUN Creatinine Est GFR ( Amer) Est GFR (Non-Af Amer) POC Glucose (mg/dL) Random Glucose Calcium Phosphorus Magnesium Total Bilirubin AST ALT Alkaline Phosphatase Total Creatine Kinase CK-MB (Mass) Troponin I Total Protein Albumin Globulin Albumin/Globulin Ratio Amylase Lipase Procalcitonin Arterial Blood Potassium Venous Blood Potassium 2.4 L* Urine Color Urine Clarity Urine pH Ur Specific [place] Urine Protein Urine Glucose (UA) Urine Ketones Urine Blood Urine Nitrate Urine Bilirubin Urine Urobilinogen Ur Leukocyte Esterase Urine WBC (Auto) Urine RBC (Auto) Urine HCG, Qual Stool Occult Blood Urine Opiates Screen Urine Methadone Screen Ur Barbiturates Screen Ur Phencyclidine Scrn Ur Amphetamines Screen U Benzodiazepines Scrn U Oth Cocaine Metabols U Cannabinoids Screen Blood Type Blood Type Confirm Antibody Screen 07/27/18 07/27/18 07/27/18 13:42 18:11 18:26 WBC 25.8 H RBC 3.44 L Hgb 8.6 L Hct 27.7 L MCV 80.4 L MCH 24.9 L MCHC 31.0 L RDW 13.3 Plt Count 160 MPV 8.7 Neut % (Auto) 94.7 H Lymph % (Auto) 3.1 L [place] % (Auto) 1.5 Eos % (Auto) 0.6 Baso % (Auto) 0.1 Neut # (Auto) 24.4 H Lymph # (Auto) 0.8 L [place] # (Auto) 0.4 Eos # (Auto) 0.2 Baso # (Auto) 0.0 Neutrophils % (Manual) 88 H Band Neutrophils % 9 H Lymphocytes % (Manual) 2 L Reactive Lymphs % Monocytes % (Manual) 1 Eosinophils % (Manual) Basophils % (Manual) Myelocytes % Platelet Estimate Normal RBC Morphology Normal Hypochromasia (manual) Poikilocytosis (manual Anisocytosis (manual) Kya Cells PT > 320.0 H INR > 10.0 APTT > 400 H* Fibrinogen Fibrin Degrad Products Fibrin Degrad Prod, Qt D-Dimer, Quantitative Puncture Site pCO2 pO2 60 H HCO3 ABG pH ABG Total CO2 ABG O2 Saturation ABG Base Excess ABG Hemoglobin ABG Carboxyhemoglobin POC ABG HHb (Measured) ABG Methemoglobin Bryce Test ABG Potassium VBG pH 7.20 L VBG pCO2 45 VBG HCO3 16.6 VBG Total CO2 19.0 L VBG O2 Sat (Calc) 93.2 H VBG Base Excess -10.2 L VBG Potassium 3.9 A-a O2 Difference Respiratory Index Hgb O2 Saturation Glucose 140 H Lactate 6.1 H* Vent Mode Mechanical Rate FiO2 Tidal Volume PEEP Crit Value Called To Narinder herron Crit Value Called By Rinku Crit Value Read Back Y Blood Gas Notified Time 181 Sodium 149.0 H Potassium Chloride 121.0 H Carbon Dioxide Anion Gap BUN Creatinine Est GFR ( Amer) Est GFR (Non-Af Amer) POC Glucose (mg/dL) Random Glucose Calcium Phosphorus Magnesium Total Bilirubin AST ALT Alkaline Phosphatase Total Creatine Kinase CK-MB (Mass) Troponin I Total Protein Albumin Globulin Albumin/Globulin Ratio Amylase Lipase Procalcitonin Arterial Blood Potassium Venous Blood Potassium 3.9 Urine Color Urine Clarity Urine pH Ur Specific [place] Urine Protein Urine Glucose (UA) Urine Ketones Urine Blood Urine Nitrate Urine Bilirubin Urine Urobilinogen Ur Leukocyte Esterase Urine WBC (Auto) Urine RBC (Auto) Urine HCG, Qual Stool Occult Blood Urine Opiates Screen Urine Methadone Screen Ur Barbiturates Screen Ur Phencyclidine Scrn Ur Amphetamines Screen U Benzodiazepines Scrn U Oth Cocaine Metabols U Cannabinoids Screen Blood Type Blood Type Confirm Antibody Screen 07/27/18 07/27/18 07/27/18 18:26 18:26 18:26 WBC RBC Hgb Hct MCV MCH MCHC RDW Plt Count MPV Neut % (Auto) Lymph % (Auto) [place] % (Auto) Eos % (Auto) Baso % (Auto) Neut # (Auto) Lymph # (Auto) [place] # (Auto) Eos # (Auto) Baso # (Auto) Neutrophils % (Manual) Band Neutrophils % Lymphocytes % (Manual) Reactive Lymphs % Monocytes % (Manual) Eosinophils % (Manual) Basophils % (Manual) Myelocytes % Platelet Estimate RBC Morphology Hypochromasia (manual) Poikilocytosis (manual Anisocytosis (manual) [place] Cells PT 27.4 H D INR 2.5 D APTT 41 H D Fibrinogen Fibrin Degrad Products Fibrin Degrad Prod, Qt D-Dimer, Quantitative Puncture Site pCO2 pO2 HCO3 ABG pH ABG Total CO2 ABG O2 Saturation ABG Base Excess ABG Hemoglobin ABG Carboxyhemoglobin POC ABG HHb (Measured) ABG Methemoglobin Bryce Test ABG Potassium VBG pH VBG pCO2 VBG HCO3 VBG Total CO2 VBG O2 Sat (Calc) VBG Base Excess VBG Potassium A-a O2 Difference Respiratory Index Hgb O2 Saturation Glucose Lactate Vent Mode Mechanical Rate FiO2 Tidal Volume PEEP Crit Value Called To Crit Value Called By Crit Value Read Back Blood Gas Notified Time Sodium 150 H Potassium 4.1 Chloride 119 H Carbon Dioxide 20 L Anion Gap 16 BUN 28 H Creatinine 2.0 H Est GFR ( Amer) 32 Est GFR (Non-Af Amer) 27 POC Glucose (mg/dL) Random Glucose 137 H Calcium 5.9 L* Phosphorus 6.4 H Magnesium 1.8 Total Bilirubin 0.5 AST 709 H ALT 318 H Alkaline Phosphatase 114 Total Creatine Kinase CK-MB (Mass) Troponin I Total Protein 4.0 L Albumin 1.9 L Globulin 2.1 L Albumin/Globulin Ratio 0.9 L Amylase Lipase Procalcitonin Arterial Blood Potassium Venous Blood Potassium Urine Color Urine Clarity Urine pH Ur Specific [place] Urine Protein Urine Glucose (UA) Urine Ketones Urine Blood Urine Nitrate Urine Bilirubin Urine Urobilinogen Ur Leukocyte Esterase Urine WBC (Auto) Urine RBC (Auto) Urine HCG, Qual Stool Occult Blood Positive H Urine Opiates Screen Urine Methadone Screen Ur Barbiturates Screen Ur Phencyclidine Scrn Ur Amphetamines Screen U Benzodiazepines Scrn U Oth Cocaine Metabols U Cannabinoids Screen Blood Type Blood Type Confirm Antibody Screen 07/27/18 19:40 WBC RBC Hgb Hct MCV MCH MCHC RDW Plt Count MPV Neut % (Auto) Lymph % (Auto) [place] % (Auto) Eos % (Auto) Baso % (Auto) Neut # (Auto) Lymph # (Auto) [place] # (Auto) Eos # (Auto) Baso # (Auto) Neutrophils % (Manual) Band Neutrophils % Lymphocytes % (Manual) Reactive Lymphs % Monocytes % (Manual) Eosinophils % (Manual) Basophils % (Manual) Myelocytes % Platelet Estimate RBC Morphology Hypochromasia (manual) Poikilocytosis (manual Anisocytosis (manual) [place] Cells PT INR APTT Fibrinogen Fibrin Degrad Products Fibrin Degrad Prod, Qt D-Dimer, Quantitative Puncture Site pCO2 pO2 HCO3 ABG pH ABG Total CO2 ABG O2 Saturation ABG Base Excess ABG Hemoglobin ABG Carboxyhemoglobin POC ABG HHb (Measured) ABG Methemoglobin Bryce Test ABG Potassium VBG pH VBG pCO2 VBG HCO3 VBG Total CO2 VBG O2 Sat (Calc) VBG Base Excess VBG Potassium A-a O2 Difference Respiratory Index Hgb O2 Saturation Glucose Lactate Vent Mode Mechanical Rate FiO2 Tidal Volume PEEP Crit Value Called To Crit Value Called By Crit Value Read Back Blood Gas Notified Time Sodium Potassium Chloride Carbon Dioxide Anion Gap BUN Creatinine Est GFR ( Amer) Est GFR (Non-Af Amer) POC Glucose (mg/dL) Random Glucose Calcium Phosphorus Magnesium Total Bilirubin AST ALT Alkaline Phosphatase Total Creatine Kinase CK-MB (Mass) Troponin I Total Protein Albumin Globulin Albumin/Globulin Ratio Amylase Lipase Procalcitonin Arterial Blood Potassium Venous Blood Potassium Urine Color Urine Clarity Urine pH Ur Specific [place] Urine Protein Urine Glucose (UA) Urine Ketones Urine Blood Urine Nitrate Urine Bilirubin Urine Urobilinogen Ur Leukocyte Esterase Urine WBC (Auto) Urine RBC (Auto) Urine HCG, Qual Stool Occult Blood Urine Opiates Screen Urine Methadone Screen Ur Barbiturates Screen Ur Phencyclidine Scrn Ur Amphetamines Screen U Benzodiazepines Scrn U Oth Cocaine Metabols U Cannabinoids Screen Blood Type A POSITIVE Blood Type Confirm A POSITIVE Antibody Screen Negative Assessment & Plan (1) DIC (disseminated intravascular coagulation) Assessment and Plan: likely septic shock on antibiotics Status: Acute (2) Pulmonary embolism Assessment and Plan: on heparin drip likely provoked from immobility and OCPs Status: Acute (3) DVT (deep venous thrombosis) Assessment and Plan: likely provoked from immobility and OCPs Status: Acute (4) Thrombocytopenia Assessment and Plan: secondary to DIC Status: Acute (5) Leukocytosis (leucocytosis) Assessment and Plan: on antibiotics Thank you for this interesting consult. Status: Acute
--- NOTE | 2018-07-28 00:21 | CARD ---
APPROVED REPORT Date of service: 07/27/2018 EXAM: Two-dimensional and M-mode echocardiogram with Doppler and color Doppler. Other Information Quality : Rhythm : Bradycardia INDICATION Pulmonary Embolism 2D DIMENSIONS IVSd0.9 (0.7-1.1cm)LVDd2.5 (3.9-5.9cm) PWd1.1 (0.7-1.1cm)LA [id number] (18-58mL) LVDs1.5 (2.5-4.0cm)FS (%) 40.4 % LVEF (%)73.2 (>50%)LVEF (Kat's)62.42 % M-Mode DIMENSIONS Left Atrium (MM)2.03 (2.5-4.0cm)IVSd0.95 (0.7-1.1cm) Aortic Root2.90 (2.2-3.7cm)LVDd3.43 (4.0-5.6cm) Aortic Cusp Exc.2.31 (1.5-2.0cm)PWd0.75 (0.7-1.1cm) FS (%) 38 %LVDs2.13 (2.0-3.8cm) TAPSE15.80 cmLVEF (%)69 (>50%) Mitral Valve MV E Weaovcuc430.2cm/sE/A ratio0.0 TDI Lateral E' Peak V10.80cm/sMedial E' Peak V13.49cm/sE/Lateral E'10.1 E/Medial E'8.1 Tricuspid Valve TR Peak Zbjjsbmc920hb/sTR Peak Gr.[id number] LEFT VENTRICLE The left ventricle is normal size. There is normal left ventricular wall thickness. Left ventricle systolic function is normal. The Ejection Fraction is >70%. There is normal LV segmental wall motion. Tissue Doppler imaging reveals abnormal left ventricular diastolic dysfunction. RIGHT VENTRICLE The right ventricle is mildly to moderately dilated. There is normal right ventricular wall thickness. The right ventricular systolic function is normal. ATRIA The left atrium size is normal. The right atrium size is normal. The interatrial septum is intact with no evidence for an atrial septal defect. AORTIC VALVE The aortic valve is normal in structure. No aortic regurgitation is present. There is no aortic valvular stenosis. There is no aortic valvular vegetation. MITRAL VALVE The mitral valve is normal in structure. There is no evidence of mitral valve prolapse. There is no mitral valve stenosis. There is no mitral valve regurgitation noted. TRICUSPID VALVE The tricuspid valve is normal in structure. There is mild tricuspid regurgitation. Right ventricular systolic pressure is estimated at 30-40 mmHg. There is mild pulmonary hypertension. PULMONIC VALVE The pulmonary valve is normal in structure. There is no pulmonic valvular regurgitation. GREAT VESSELS The aortic root is normal in size. PERICARDIAL EFFUSION There is a small loculated posterior pericardial effusion. <Conclusion> Left ventricle systolic function is normal. The Ejection Fraction is >70%. Diastolic dysfunction. No aortic regurgitation is present. There is no mitral valve regurgitation noted. There is mild tricuspid regurgitation. There is mild pulmonary hypertension. There is no pulmonic valvular regurgitation. The right ventricle is mildly to moderately dilated.
[2018-07-28] MEDS: Cisatracurium Besylate 100 MG in Dextrose 5% In Water 240 ML IV PRN ×2 (00:30→11:51)
[2018-07-28 00:36] LABS: EOS # 0.2 K/uL (0.0-0.7); EOS % 0.6 % (0.0-4.0); HEMOGLOBIN 9.3 g/dL (11.0-16.0); LYMPH # 1.8 K/uL (1.0-4.3); LYMPH % 4.6 % (20.0-40.0); MEAN CELL VOLUME 84.2 fL (81.0-99.0); MEAN CORPUSCULAR HGB CONC 30.9 g/dL (33.0-37.0); MEAN PLATELET VOLUME 9.1 fL (7.2-11.7); MONO # 0.7 K/uL (0.0-0.8); MONO % 1.9 % (0.0-10.0); NEUT # 35.8 K/uL (1.8-7.0); NEUT % 92.9 % (50.0-75.0); NRBC % 0.1 % (0.0-2.0); PLATELET COUNT 128 K/uL (130-400); RBC 3.57 Mil/uL (3.80-5.20); RED CELL DISTRIBUTION WIDTH 14.3 % (11.5-14.5)
[2018-07-28 00:39] LABS: WHITE BLOOD COUNT 38.5 K/uL (4.8-10.8)
[2018-07-28 01:22] LABS: LYMPHOCYTE 2 % (20-40); MONOCYTE 2 % (0-10); NEUTROPHIL 76 % (50-75); TOTAL CELLS COUNTED 100
[2018-07-28 01:23] LABS: ANISOCYTOSIS SLIGHT; BANDS 20 % (0-2); PLATELET ESTIMATE SLIGHTLY DECREASED (NORMAL); POIKILOCYTOSIS SLIGHT
[2018-07-28] MEDS: Phenylephrine 30 MG in Sodium Chloride 0.9% 247 ML IV PRN (01:45)
[2018-07-28] MEDS: Sodium Chloride 0.9% 1,000 ML IV SCH ×3 (02:12→07:22)
[2018-07-28] MEDS: metroNIDAZOLE IV 500 mg/100 ml 500 MG/100 ML BAG IVPB SCH ×3 (02:19→17:34)
[2018-07-28] MEDS: Piperacillin/Tazobact 3.375 GM in Sodium Chloride 100 ML IVPB SCH (03:16)
[2018-07-28 04:57] LABS: ARTERIAL BLOOD GAS HCO3 11.1 mmol/L (21-28); ARTERIAL BLOOD GAS HEMOGLOBIN 9.5 g/dL (11.7-17.4); ARTERIAL BLOOD GAS O2 SAT 99.7 % (95-98); ARTERIAL BLOOD GAS PCO2 44 mm/Hg (35-45); ARTERIAL BLOOD GAS PH 7.04 (7.35-7.45); ARTERIAL BLOOD GAS PO2 118 mm/Hg (80-100); ARTERIAL BLOOD GAS TCO2 13.3 mmol/L (22-28)
[2018-07-28] MEDS: Dexmedetomidine Hydrochloride 200 MCG in Sodium Chloride 0.9% 48 ML IV PRN ×3 (05:00→22:53)
[2018-07-28 05:34] LABS: BASO % 0.1 % (0.0-2.0); EOS # 0.2 K/uL (0.0-0.7); EOS % 0.6 % (0.0-4.0); HEMOGLOBIN 9.6 g/dL (11.0-16.0); LYMPH # 2.8 K/uL (1.0-4.3); LYMPH % 7.1 % (20.0-40.0); MEAN CELL VOLUME 83.5 fL (81.0-99.0); MEAN CORPUSCULAR HEMOGLOBIN 26.3 pg (27.0-31.0); MEAN CORPUSCULAR HGB CONC 31.5 g/dL (33.0-37.0); MEAN PLATELET VOLUME 9.5 fL (7.2-11.7); MONO # 0.8 K/uL (0.0-0.8); NEUT # 35.9 K/uL (1.8-7.0); NEUT % 90.2 % (50.0-75.0); NRBC % 0.1 % (0.0-2.0); PLATELET COUNT 128 K/uL (130-400); RBC 3.66 Mil/uL (3.80-5.20); RED CELL DISTRIBUTION WIDTH 14.3 % (11.5-14.5)
[2018-07-28 05:38] LABS: WHITE BLOOD COUNT 39.7 K/uL (4.8-10.8)
[2018-07-28 05:56] LABS: ALBUMIN 2.4 g/dL (3.5-5.0)
[2018-07-28 05:57] LABS: ALB/GLOB RATIO 1.2 (1.0-2.1)
[2018-07-28 07:02] LABS: LYMPHOCYTE 9 % (20-40); METAMYELOCYTE 1 % (0-0); MONOCYTE 2 % (0-10); NEUTROPHIL 65 % (50-75); PLATELET ESTIMATE SLIGHTLY DECREASED (NORMAL); TOTAL CELLS COUNTED 100
[2018-07-28 07:05] LABS: ANISOCYTOSIS SLIGHT; BANDS 23 % (0-2); POIKILOCYTOSIS SLIGHT
--- NOTE | 2018-07-28 08:53 | CP.PCM.PN ---
Subjective - Date & Time of Evaluation Date of Evaluation: 07/28/18 Time of Evaluation: 08:30 - Subjective Subjective: Patient remains intubated on sedation and on three presser medications at this time. I changed the IVF over to be 1/2 NS @ 200 cc with 1 amp of NaHCO3 in it as her morning ABG is is acidotic even though she remains on mechanical ventilation. Likley this is a combination of boththe bilateral PE as well as sepsis/DIC Overnight she was placed back on the heparin ggt, then after some time it was again discontinued. She was given 1 unit of PRBC overnight. Family members at bedside and I updated them. Unfourtunately the overall prog nosis remains poor at this time. Objective - Vital Signs/Intake and Output Vital Signs (last 24 hours): Temp Pulse Resp BP Pulse Ox 100.8 F H 117 H 24 114/38 L 96 07/28/18 08:00 07/28/18 08:01 07/28/18 08:01 07/28/18 08:00 07/28/18 08:01 Intake and Output: 07/28/18 07/28/18 06:59 18:59 Intake Total 8042.84 695.86 Output Total 1035 80 Balance 7007.84 615.86 - Medications Medications: Current Medications Heparin Sodium/Sodium Chloride (Heparin 78676 Units/250ml 1/2 Normal Saline) 25,000 units in 250 mls @ 12.247 mls/hr IV .[id number] PRN; Protocol PRN Reason: ADJUST RATE PER PROTOCOL Last Titration: 07/28/18 07:45 Dose: 0 units/kg/hr, 0 mls/hr Norepinephrine Bitartrate 4 mg (/ Sodium Chloride) 250 mls @ 15 mls/hr IV .[id number] PRN; Protocol PRN Reason: TITRATE PER MD ORDER Last Titration: 07/28/18 07:00 Dose: 10 mcg/min, 37.5 mls/hr Cisatracurium Besylate 100 mg/ (Dextrose) 250 mls @ 32.66 mls/hr IV .Q7H40M MT N; Protocol PRN Reason: Agitation Last Titration: 07/28/18 08:32 Dose: 1.8 mcg/kg/min, 19.6 mls/hr Piperacillin Sod/Tazobactam (Sod 3.375 gm/ Sodium Chloride) 100 mls @ 200 mls/hr IVPB Q6H KACY; Protocol Last Admin: 07/28/18 03:16 Dose: 200 mls/hr Vancomycin HCl 1,000 mg/ (Sodium Chloride) 250 mls @ 166.6 mls/hr IVPB Q12H KACY; Protocol Last Admin: 07/27/18 21:44 Dose: 166.6 mls/hr Phenylephrine HCl 30 mg/ (Sodium Chloride) 250 mls @ 10 mls/hr IV .Q24H PRN; Protocol PRN Reason: TITRATE PER MD ORDER Last Titration: 07/28/18 06:00 Dose: 0 mcg/min, 0 mls/hr Vasopressin 40 units/ Sodium (Chloride) 40 mls @ 1.2 mls/hr IV .Q24H KACY; Protocol Last Admin: 07/27/18 23:15 Dose: 0.04 units/min, 2.4 mls/hr Dexmedetomidine HCl 200 mcg/ (Sodium Chloride) 50 mls @ 3.63 mls/hr IV TITR PRN; Protocol PRN Reason: Sedation Last Titration: 07/28/18 08:33 Dose: 0.09 mcg/kg/hr, 1.8 mls/hr Metronidazole (Flagyl) 500 mg in 100 mls @ 100 mls/hr IVPB Q8H KACY; Protocol Last Admin: 07/28/18 02:19 Dose: 100 mls/hr Sodium Bicarbonate 50 meq/ (Sodium Chloride) 1,050 mls @ 200 mls/hr IV .Q5H15M KACY Lorazepam (Ativan) 2 mg IVP Q4 PRN PRN Reason: Anxiety Methylprednisolone (Solu-Medrol) 40 mg IVP TID [facility] Last Admin: 07/27/18 17:24 Dose: 40 mg Pantoprazole Sodium (Protonix Inj) 40 mg IVP Q12 KACY Last Admin: 07/27/18 21:04 Dose: 40 mg - Labs Labs: 07/28/18 05:30 07/28/18 05:30 PT 27.4 SECONDS (9.7-12.2) H D 07/27/18 18:26 INR 2.5 D 07/27/18 18:26 APTT > 400 SECONDS (21-34) H* 07/28/18 07:10 - Constitutional Appears: Toxic, Chronically Ill - Eye Exam Eye Exam: Periorbital swelling Additional comments: There is left ecymosis over eyelid - Neck Exam Additional comments: a lot of ecymosis around the central line. Heparin is temporarily held at this time - Respiratory Exam Additional comments: Remains intubated - Neurological Exam Neurological Exam: Altered - Skin Skin Exam: Pallor Assessment and Plan - Assessment and Plan (Free Text) Assessment: A/P: This is a 48 year old female patient who unfortunately has bilateral large PE and currently is intubated at this time. Per family members, the patient has a past medical history of anxiety who presented with worsening shortness of breath and syncope. Acute Hypercapnic Respiratory Failure 2/2 Bilateral PE 07/28: IVF changed to 1/2 NS @ 200 cc /hr with 50 meq of NaHCO3, she is still acidotic on ABG despite being on 3 pressor medications as well as on mechanical ventilation. Likely combination of the bilateral PE and also the sepsis / DIC. She was on heparin ggt overnight then it was discontinued this morning. Current ly not a candidate for direct thrombolytic administration due to bleeding concern. 07/27: Spoke with family member Darshan at bedside and he understands prognosis is poor. At this time the patient remains intubated with minimal reflexes illicited on exam. Intubated, s/p respiratory arrest x 2 -ABG: pH <6.80, PO2 29, PCO2 103, Lactate 17.6 CT head showed left forhead swelling CTA chest showed diffuse bilateral pulmonary emboli involving bilateral central and segmental pulmonary arteries, cardiac silhouette enlarged, there is evidence of pulmonary venous congestion compatible with CHF, left basilar atelectasis vs pulmonary infarct (official report pending) Atrial Fibrillation with RVR 07/27: Likley secondary to the bilateral PEs, they asked IR to evaluate however she was not a candidate for direct cathter thrombolysis Initial EKG showed afib with rate of 146 bpm Patient on heparin drip Echo is pending Sepsis / DIC / Abdominal Pain 07/28: Cultures still pending at this time, she remains on IV pressors and also the urine out put was only 1065 mL 07/27: Elevated WBC, bandemia, and hypothermic Antibiotics started on Zosyn and Vancomycin Also blood culture, urine culture, and IVF boluses. -CT abd/pelvis showed periportal edema and pericholecystic/peripancreatic fluid, probably related to fluid overload, exclude hepatocellular disease. Severe enteritis. Infectious and inflammatory etiologies are considered. Large amount of fecal material is seen throughout colon (official report pending) Hematuria -Obed blood noted in brady -UA and urine culture ordered
--- NOTE | 2018-07-28 09:13 | CP.PCM.PN ---
Subjective - Date & Time of Evaluation Date of Evaluation: 07/28/18 Time of Evaluation: 10:18 - Subjective Subjective: Cardiology Progress Note Airam Rasmussen, PGY1 note for Dr. Ba Patient seen and examined at bedside. Currently on 2 pressors. Holding heparin drip at this time. Remains intubated on nimbex. Prognosis is guarded. Objective - Vital Signs/Intake and Output Vital Signs (last 24 hours): Temp Pulse Resp BP Pulse Ox 100.8 F H 117 H 24 114/38 L 96 07/28/18 08:00 07/28/18 08:01 07/28/18 08:01 07/28/18 08:00 07/28/18 08:01 Intake and Output: 07/28/18 07/28/18 06:59 18:59 Intake Total 8042.84 695.86 Output Total 1035 80 Balance 7007.84 615.86 - Medications Medications: Current Medications Heparin Sodium/Sodium Chloride (Heparin 08224 Units/250ml 1/2 Normal Saline) 25,000 units in 250 mls @ 12.247 mls/hr IV .[id number] PRN; Protocol PRN Reason: ADJUST RATE PER PROTOCOL Last Titration: 07/28/18 07:45 Dose: 0 units/kg/hr, 0 mls/hr Norepinephrine Bitartrate 4 mg (/ Sodium Chloride) 250 mls @ 15 mls/hr IV .[id number] PRN; Protocol PRN Reason: TITRATE PER MD ORDER Last Titration: 07/28/18 07:00 Dose: 10 mcg/min, 37.5 mls/hr Cisatracurium Besylate 100 mg/ (Dextrose) 250 mls @ 32.66 mls/hr IV .Q7H40M PRN; Protocol PRN Reason: Agitation Last Titration: 07/28/18 08:32 Dose: 1.8 mcg/kg/min, 19.6 mls/hr Piperacillin Sod/Tazobactam (Sod 3.375 gm/ Sodium Chloride) 100 mls @ 200 mls/hr IVPB Q6H KACY; Protocol Last Admin: 07/28/18 03:16 Dose: 200 mls/hr Vancomycin HCl 1,000 mg/ (Sodium Chloride) 250 mls @ 166.6 mls/hr IVPB Q12H KACY; Protocol Last Admin: 07/27/18 21:44 Dose: 166.6 mls/hr Phenylephrine HCl 30 mg/ (Sodium Chloride) 250 mls @ 10 mls/hr IV .Q24H PRN; Protocol PRN Reason: TITRATE PER MD ORDER Last Titration: 07/28/18 06:00 Dose: 0 mcg/min, 0 mls/hr Vasopressin 40 units/ Sodium (Chloride) 40 mls @ 1.2 mls/hr IV .Q24H KACY; Protocol Last Admin: 07/27/18 23:15 Dose: 0.04 units/min, 2.4 mls/hr Dexmedetomidine HCl 200 mcg/ (Sodium Chloride) 50 mls @ 3.63 mls/hr IV TITR PRN; Protocol PRN Reason: Sedation Last Titration: 07/28/18 08:33 Dose: 0.09 mcg/kg/hr, 1.8 mls/hr Metronidazole (Flagyl) 500 mg in 100 mls @ 100 mls/hr IVPB Q8H KACY; Protocol Last Admin: 07/28/18 02:19 Dose: 100 mls/hr Sodium Bicarbonate 50 meq/ (Sodium Chloride) 1,050 mls @ 200 mls/hr IV .Q5H15M KACY Lorazepam (Ativan) 2 mg IVP Q4 PRN PRN Reason: Anxiety Methylprednisolone (Solu-Medrol) 40 mg IVP TID KACY Last Admin: 07/27/18 17:24 Dose: 40 mg Pantoprazole Sodium (Protonix Inj) 40 mg IVP Q12 KACY Last Admin: 07/27/18 21:04 Dose: 40 mg - Labs Labs: 07/28/18 05:30 07/28/18 05:30 PT 27.4 SECONDS (9.7-12.2) H D 07/27/18 18:26 INR 2.5 D 07/27/18 18:26 APTT > 400 SECONDS (21-34) H* 07/28/18 07:10 - Constitutional Appears: Other (intubated, non responsive) - Head Exam Head Exam: ATRAUMATIC Additional comments: frontal facial hematoma appreciable - Eye Exam Additional comments: pupils are sluggish - Respiratory Exam Respiratory Exam: Clear to Ausculation Bilateral. absent: Respiratory Distress Additional comments: intubated - Cardiovascular Exam Cardiovascular Exam: REGULAR RHYTHM, +S1, +S2 - GI/Abdominal Exam GI & Abdominal Exam: Normal Bowel Sounds. absent: Guarding, Rigid - Extremities Exam Extremities Exam: Calf Tenderness, Normal Inspection - Neurological Exam Neurological Exam: absent: Alert, Awake, Oriented x3 - Skin Skin Exam: Normal Color, Warm Assessment and Plan - Assessment and Plan (Free Text) Assessment: This is a 48 year old female with PMH of anxiety presenting to the ED s/p witnessed syncopal episode after return from [place] on bus. Plan: B/L P.E., -echo showed normal LV EF, mild TR, pulmonary hypertension and RV dilated -now on 0.04 vasopressin and 10 levophed -will not do EKOS at this time due to unknown status of prothrombotic state -CTA showed diffuse bilateral pulmonary emboli of B/L central and segmental pulmonary arteries, pulmonary venous congestion compatible with CHF vs left basilar atelectasis vs pulmonary infarct -D-dimer > 5250, PT/INR/PTT elevated, elevated fibrinogen products, concern for for bleeding -s/p respiratory arrest, ACLS performed, currently intubated -heparin drip currently on hold -tPA contraindicated -LE duplex final read pending Afib -EKG on admission showed afib with RVR at 146bpm, uncertain if new finding Case discussed with attending, further recommendations per Dr. Ba
--- NOTE | 2018-07-28 09:15 | RAD ---
Date of service: 07/28/2018 HISTORY: s/p intubation COMPARISON: Portable chest 07/27/2018. FINDINGS: LUNGS: Endotracheal tube is unchanged in position. Left central venous line is been advanced into the right atrium. Limited atelectasis seen at the right apex medially with no additional airspace disease at the right side. Left hemidiaphragm is obscured suggesting left basilar atelectasis most likely though underlying infiltrate is not excluded. Small pleural effusion is suspected. None is seen the right. No pneumothorax bilaterally. PLEURA: As above. CARDIOVASCULAR: Stable cardiac silhouette. No definite pulmonary vascular congestion. OSSEOUS STRUCTURES: No significant abnormalities. VISUALIZED UPPER ABDOMEN: Normal. OTHER FINDINGS: None. IMPRESSION: Interval left basilar atelectasis favored over infiltrate with small pleural effusion in question. Linear atelectasis medial right apex. Adequate reposition of left central venous line.
[2018-07-28] MEDS ORDERED: Sodium Bicarbonate (8.4%) 50 Meq Syringe IVP ONE ×3 (09:23→10:21)
--- NOTE | 2018-07-28 09:48 | CP.PCM.CON ---
Addendum entered and electronically signed by Zak Steven DO 07/28/18 15:08: In HPI section: patiient subsequently went into respiratory arrest and bradycardia warranting intubation and ACLS. In Assessment and Plan section: Respiratory arrest, Not cardiac arrest We will continue to treat aggressively with the PMD and the other consultants. Original Note: <Zak Steven - Last Filed: 07/28/18 13:10> History of Present Illness - History of Present Illness History of Present Illness: Zak Steven DO, PGY-2: Nephrology Consult Note for Dr. Henson 48 year old [place] female with a history notable for a UTI on Ci profloxacin who was brought in by EMS after collapsing in her home. Patient was found to be in atrial fibrillation and subsequently went into cardiac arrest while in the hospital with ACLS protocol being initiated. CTA of the chest showed bilateral pulmonary emboli while US of the duplex US of the lower extremities showed occlusive thrombus in the left common femoral vein with severe reduction of venous return. Currently, patient is intubated on maximal oxygen flow in the ICU on three vasopressors, heparin drip, broad spectrum antibiotics with underlying severe acidosis along with being anuric. Nephrology was consulted for acute renal failure in the setting of anuria and septic shock. Review of system is limited given patient is unresponsive. PMH: Anxiety PSH: Bariatric surgery, x 2, abdominoplasty, breast implants SH: Per family, no alcohol, tobacco, drug use. Recently moved from [place] 2 months ago, lives with niece and her FH: Unobtainable Meds: Protonix 40mg PO daily, Cipro 500mg PO, Drospirenona/etinilestradiol 3mg/0.02mg All: NKDA Review of Systems - Review of Systems Systems not reviewed;Unavailable: Acuity of Condition Past Patient History - Infectious Disease Hx of Infectious Diseases: None - Past Medical History & Family History Past Medical History?: Yes - Past Social History Smoking Status: Never Smoked - CARDIAC Hx Cardiac Disorders: (unable to obtain) - PULMONARY Hx Respiratory Disorders: (unable to obtain) - NEUROLOGICAL Hx Neurological Disorder: (unable to obtain) - HEENT Hx HEENT Problems: (unable to obtain) - RENAL Hx Chronic Kidney Disease: (unable to obtain) - ENDOCRINE/METABOLIC Hx Endocrine Disorders: (unable to obtain) - HEMATOLOGICAL/ONCOLOGICAL Hx Blood Disorders: (unable to obtain) - INTEGUMENTARY Hx Dermatological Problems: (unable to obtain) - MUSCULOSKELETAL/RHEUMATOLOGICAL Hx Musculoskeletal Disorders: (unable to obtain) - GASTROINTESTINAL Hx Gastrointestinal Disorders: (unable to obtain) - GENITOURINARY/GYNECOLOGICAL Hx Genitourinary Disorders: (unable to obtain) - PSYCHIATRIC Hx Anxiety: Yes Hx Substance Use: No - SURGICAL HISTORY Hx Surgeries: Yes (As per Family Member) Hx Section: Yes (x2) Other/Comment: Bariatric Sx - ANESTHESIA Hx Anesthesia: Yes Hx Anesthesia Reactions: No Hx Malignant Hyperthermia: No Meds Allergies/Adverse Reactions: Allergies Allergy/AdvReac Type Severity Reaction Status Date / Time No Known Allergies Allergy Unverified 07/27/18 02:28 - Medications Medications: Current Medications Heparin Sodium/Sodium Chloride (Heparin 74495 Units/250ml 1/2 Normal Saline) 25,000 units in 250 mls @ 12.247 mls/hr IV .[id number] PRN; Protocol PRN Reason: ADJUST RATE PER PROTOCOL Last Titration: 07/28/18 07:45 Dose: 0 units/kg/hr, 0 mls/hr Norepinephrine Bitartrate 4 mg (/ Sodium Chloride) 250 mls @ 15 mls/hr IV .[id number] PRN; Protocol PRN Reason: TITRATE PER MD ORDER Last Titration: 07/28/18 07:00 Dose: 10 mcg/min, 37.5 mls/hr Cisatracurium Besylate 100 mg/ (Dextrose) 250 mls @ 32.66 mls/hr IV .[id number] PRN; Protocol PRN Reason: Agitation Last Titration: 07/28/18 08:32 Dose: 1.8 mcg/kg/min, 19.6 mls/hr Phenylephrine HCl 30 mg/ (Sodium Chloride) 250 mls @ 10 mls/hr IV .Q24H PRN; Pr otocol PRN Reason: TITRATE PER MD ORDER Last Titration: 07/28/18 06:00 Dose: 0 mcg/min, 0 mls/hr Vasopressin 40 units/ Sodium (Chloride) 40 mls @ 1.2 mls/hr IV .Q24H [facility]; Protocol Last Admin: 07/27/18 23:15 Dose: 0.04 units/min, 2.4 mls/hr Dexmedetomidine HCl 200 mcg/ (Sodium Chloride) 50 mls @ 3.63 mls/hr IV TITR PRN; Protocol PRN Reason: Sedation Last Titration: 07/28/18 08:33 Dose: 0.09 mcg/kg/hr, 1.8 mls/hr Metronidazole (Flagyl) 500 mg in 100 mls @ 100 mls/hr IVPB Q8H [facility]; Protocol Last Admin: 07/28/18 02:19 Dose: 100 mls/hr Sodium Bicarbonate 150 meq/ (Sodium Chloride) 1,150 mls @ 150 mls/hr IV .Q7H40M [facility] Magnesium Sulfate/Dextrose (Magnesium Sulfate 1 Gm/100 Ml D5w) 1 gm in 100 mls @ 300 mls/hr IVPB Q30M [facility] Stop: 07/28/18 10:19 Vancomycin HCl 750 mg/ Sodium (Chloride) 250 mls @ 166.6 mls/hr IVPB DAILY [facility]; Protocol Piperacillin Sod/Tazobactam (Sod 2.25 gm/ Sodium Chloride) 100 mls @ 200 mls/hr IVPB Q6H [facility]; Protocol Lorazepam (Ativan) 2 mg IVP Q4 PRN PRN Reason: Anxiety Methylprednisolone (Solu-Medrol) 40 mg IVP TID [facility] Last Admin: 07/27/18 17:24 Dose: 40 mg Pantoprazole Sodium (Protonix Inj) 40 mg IVP Q12 [facility] Last Admin: 07/27/18 21:04 Dose: 40 mg Sodium Bicarbonate (Sodium Bicarbonate (8.4%) 50 Meq Syringe) 50 meq IVP ONCE ONE Stop: 07/28/18 09:24 Sodium Bicarbonate (Sodium Bicarbonate (8.4%) 50 Meq Syringe) 50 meq IVP ONCE ONE Stop: 07/28/18 09:24 Physical Exam - Constitutional Appears: Toxic - Head Exam Additional comments: ecchymosis beneath both eye- racoon eyes - Neck Exam Additional comments: bruising and ecchymosis around left neck line - Cardiovascular Exam Cardiovascular Exam: RRR - Extremities Exam Additional comments: edema - Neurological Exam Additional comments: not responsive but also on sedation and paralytics - Skin Skin Exam: Dry Results - Vital Signs Recent Vital Signs: Last Vital Signs Temp 100.8 F H 07/28/18 08:00 Pulse 102 H 07/28/18 09:00 Resp 25 H 10/02/18 09:00 BP 117/39 L 10/02/18 09:00 Pulse Ox 94 L 07/28/18 09:00 - Labs Result Diagrams: 07/28/18 10:31 07/28/18 10:31 Labs: Laboratory Results - last 24 hr 07/27/18 07/27/18 07/27/18 09:35 10:04 10:17 WBC RBC Hgb Hct MCV MCH MCHC RDW Plt Count MPV Neut % (Auto) Lymph % (Auto) [place] % (Auto) Eos % (Auto) Baso % (Auto) Neut # (Auto) Lymph # (Auto) [place] # (Auto) Eos # (Auto) Baso # (Auto) Neutrophils % (Manual) Band Neutrophils % Lymphocytes % (Manual) Monocytes % (Manual) Metamyelocytes % Platelet Estimate RBC Morphology Poikilocytosis (manual Anisocytosis (manual) PT Cancelled INR Cancelled APTT Cancelled Fibrinogen Cancelled Fibrin Degrad Products Cancelled Positive H Fibrin Degrad Prod, Qt Cancelled >40 H Puncture Site pCO2 pO2 HCO3 ABG pH ABG Total CO2 ABG O2 Saturation ABG Base Excess ABG Hemoglobin ABG Carboxyhemoglobin POC ABG HHb (Measured) ABG Methemoglobin Bryce Test VBG pH VBG pCO2 VBG HCO3 VBG Total CO2 VBG O2 Sat (Calc) VBG Base Excess VBG Potassium A-a O2 Difference Respiratory Index Hgb O2 Saturation Sodium Chloride Glucose Lactate Vent Mode Mechanical Rate FiO2 Tidal Volume PEEP Crit Value Called To Crit Value Called By Crit Value Read Back Blood Gas Notified Time Potassium Carbon Dioxide Anion Gap BUN Creatinine Est GFR ( Amer) Est GFR (Non-Af Amer) Random Glucose Lactic Acid Calcium Phosphorus Magnesium Total Bilirubin AST ALT Alkaline Phosphatase Total Protein Albumin Globulin Albumin/Globulin Ratio Procalcitonin 4.31 H Venous Blood Potassium Stool Occult Blood Stool Leukocytes, Qual C. difficile Ag & Toxin Blood Type Blood Type Confirm Antibody Screen 07/27/18 07/27/18 07/27/18 10:18 13:29 13:42 WBC RBC Hgb Hct MCV MCH MCHC RDW Plt Count MPV Neut % (Auto) Lymph % (Auto) [place] % (Auto) Eos % (Auto) Baso % (Auto) Neut # (Auto) Lymph # (Auto) [place] # (Auto) Eos # (Auto) Baso # (Auto) Neutrophils % (Manual) Band Neutrophils % Lymphocytes % (Manual) Monocytes % (Manual) Metamyelocytes % Platelet Estimate RBC Morphology Poikilocytosis (manual Anisocytosis (manual) PT > 320.0 H D > 320.0 H INR > 10.0 D > 10.0 APTT > 400 H* D > 400 H* Fibrinogen 67 L Fibrin Degrad Products Fibrin Degrad Prod, Qt Puncture Site pCO2 pO2 30 HCO3 ABG pH ABG Total CO2 ABG O2 Saturation ABG Base Excess ABG Hemoglobin ABG Carboxyhemoglobin POC ABG HHb (Measured) ABG Methemoglobin Bryce Test VBG pH 7.02 L* VBG pCO2 77 H* VBG HCO3 13.5 VBG Total CO2 22.3 VBG O2 Sat (Calc) 58.5 VBG Base Excess -12.3 L VBG Potassium 2.4 L* A-a O2 Difference Respiratory Index Hgb O2 Saturation Sodium 152.0 H Chloride 124.0 H Glucose 107 H Lactate 4.1 H* Vent Mode Mechanical Rate FiO2 100.0 Tidal Volume PEEP 5 Crit Value Called To Dr merritt Crit Value Called By Maribell holliday 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 difficile Ag & Toxin Blood Type Blood Type Confirm Antibody Screen 07/27/18 07/27/18 07/27/18 16:42 18:11 18:26 WBC 25.8 H RBC 3.44 L Hgb 8.6 L Hct 27.7 L MCV 80.4 L MCH 24.9 L MCHC 31.0 L RDW 13.3 Plt Count 160 MPV 8.7 Neut % (Auto) 94.7 H Lymph % (Auto) 3.1 L [place] % (Auto) 1.5 Eos % (Auto) 0.6 Baso % (Auto) 0.1 Neut # (Auto) 24.4 H Lymph # (Auto) 0.8 L [place] # (Auto) 0.4 Eos # (Auto) 0.2 Baso # (Auto) 0.0 Neutrophils % (Manual) 88 H Band Neutrophils % 9 H Lymphocytes % (Manual) 2 L Monocytes % (Manual) 1 Metamyelocytes % Platelet Estimate Normal RBC Morphology Normal Poikilocytosis (manual Anisocytosis (manual) PT INR APTT Fibrinogen Fibrin Degrad Products Fibrin Degrad Prod, Qt Puncture Site pCO2 pO2 60 H HCO3 ABG pH ABG Total CO2 ABG O2 Saturation ABG Base Excess ABG Hemoglobin ABG Carboxyhemoglobin POC ABG HHb (Measured) ABG Methemoglobin Bryce Test VBG pH 7.20 L VBG pCO2 45 VBG HCO3 16.6 VBG Total CO2 19.0 L VBG O2 Sat (Calc) 93.2 H VBG Base Excess -10.2 L VBG Potassium 3.9 A-a O2 Difference Respiratory Index Hgb O2 Saturation Sodium 149.0 H Chloride 121.0 H Glucose 140 H Lactate 6.1 H* Vent Mode Mechanical Rate FiO2 Tidal Volume PEEP Crit Value Called To Narinder herron Crit Value Called By Rinku Crit Value Read Back Y Blood Gas Notified Time 181 Potassium Carbon Dioxide Anion Gap BUN Creatinine Est GFR ( Amer) Est GFR (Non-Af Amer) Random Glucose Lactic Acid Calcium Phosphorus Magnesium Total Bilirubin AST ALT Alkaline Phosphatase Total Protein Albumin Globulin Albumin/Globulin Ratio Procalcitonin Venous Blood Potassium 3.9 Stool Occult Blood Stool Leukocytes, Qual C. difficile Ag & Toxin Negative Blood Type Blood Type Confirm Antibody Screen 07/27/18 07/27/18 07/27/18 18:26 18:26 18:26 WBC RBC Hgb Hct MCV MCH MCHC RDW Plt Count MPV Neut % (Auto) Lymph % (Auto) [place] % (Auto) Eos % (Auto) Baso % (Auto) Neut # (Auto) Lymph # (Auto) [place] # (Auto) Eos # (Auto) Baso # (Auto) Neutrophils % (Manual) Band Neutrophils % Lymphocytes % (Manual) Monocytes % (Manual) Metamyelocytes % Platelet Estimate RBC Morphology Poikilocytosis (manual Anisocytosis (manual) PT INR APTT Fibrinogen Fibrin Degrad Products Fibrin Degrad Prod, Qt Puncture Site pCO2 pO2 HCO3 ABG pH ABG Total CO2 ABG O2 Saturation ABG Base Excess ABG Hemoglobin ABG Carboxyhemoglobin POC ABG HHb (Measured) ABG Methemoglobin Bryce Test VBG pH VBG pCO2 VBG HCO3 VBG Total CO2 VBG O2 Sat (Calc) VBG Base Excess VBG Potassium A-a O2 Difference Respiratory Index Hgb O2 Saturation Sodium 150 H Chloride 119 H Glucose Lactate Vent Mode Mechanical Rate FiO2 Tidal Volume PEEP Crit Value Called To Crit Value Called By Crit Value Read Back Blood Gas Notified Time Potassium 4.1 Carbon Dioxide 20 L Anion Gap 16 BUN 28 H Creatinine 2.0 H Est GFR ( Amer) 32 Est GFR (Non-Af Amer) 27 Random Glucose 137 H Lactic Acid Calcium 5.9 L* Phosphorus 6.4 H Magnesium 1.8 Total Bilirubin 0.5 AST 709 H ALT 318 H Alkaline Phosphatase 114 Total Protein 4.0 L Albumin 1.9 L Globulin 2.1 L Albumin/Globulin Ratio 0.9 L Procalcitonin Venous Blood Potassium Stool Occult Blood Positive H Stool Leukocytes, Qual Negative C. difficile Ag & Toxin Blood Type Blood Type Confirm Antibody Screen 07/27/18 07/27/18 07/28/18 18:26 19:40 00:32 WBC 38.5 H* RBC 3.57 L Hgb 9.3 L Hct 30.0 L MCV 84.2 D MCH 26.0 L MCHC 30.9 L RDW 14.3 Plt Count 128 L D MPV 9.1 Neut % (Auto) 92.9 H Lymph % (Auto) 4.6 L [place] % (Auto) 1.9 Eos % (Auto) 0.6 Baso % (Auto) 0.0 Neut # (Auto) 35.8 H Lymph # (Auto) 1.8 [place] # (Auto) 0.7 Eos # (Auto) 0.2 Baso # (Auto) 0.0 Neutrophils % (Manual) 76 H Band Neutrophils % 20 H* Lymphocytes % (Manual) 2 L Monocytes % (Manual) 2 Metamyelocytes % Platelet Estimate Slightly decreased L RBC Morphology Poikilocytosis (manual Slight Anisocytosis (manual) Slight PT 27.4 H D INR 2.5 D APTT 41 H D Fibrinogen Fibrin Degrad Products Fibrin Degrad Prod, Qt Puncture Site pCO2 pO2 HCO3 ABG pH ABG Total CO2 ABG O2 Saturation ABG Base Excess ABG Hemoglobin ABG Carboxyhemoglobin POC ABG HHb (Measured) ABG Methemoglobin Bryce Test VBG pH VBG pCO2 VBG HCO3 VBG Total CO2 VBG O2 Sat (Calc) VBG Base Excess VBG Potassium A-a O2 Difference Respiratory Index Hgb O2 Saturation Sodium Chloride Glucose Lactate Vent Mode Mechanical Rate FiO2 Tidal Volume PEEP Crit Value Called To Crit Value Called By Crit Value Read Back Blood Gas Notified Time Potassium Carbon Dioxide Anion Gap BUN Creatinine Est GFR ( Amer) Est GFR (Non-Af Amer) Random Glucose Lactic Acid Calcium Phosphorus Magnesium Total Bilirubin AST ALT Alkaline Phosphatase Total Protein Albumin Globulin Albumin/Globulin Ratio Procalcitonin Venous Blood Potassium Stool Occult Blood Stool Leukocytes, Qual C. difficile Ag & Toxin Blood Type A POSITIVE Blood Type Confirm A POSITIVE Antibody Screen Negative 07/28/18 07/28/18 07/28/18 00:32 04:45 05:30 WBC 39.7 H* RBC 3.66 L Hgb 9.6 L Hct 30.5 L MCV 83.5 MCH 26.3 L MCHC 31.5 L RDW 14.3 Plt Count 128 L MPV 9.5 Neut % (Auto) 90.2 H Lymph % (Auto) 7.1 L [place] % (Auto) 2.0 Eos % (Auto) 0.6 Baso % (Auto) 0.1 Neut # (Auto) 35.9 H Lymph # (Auto) 2.8 [place] # (Auto) 0.8 Eos # (Auto) 0.2 Baso # (Auto) 0.0 Neutrophils % (Manual) 65 Band Neutrophils % 23 H* Lymphocytes % (Manual) 9 L Monocytes % (Manual) 2 Metamyelocytes % 1 H Platelet Estimate Slightly decreased L RBC Morphology Poikilocytosis (manual Slight Anisocytosis (manual) Slight PT INR APTT > 400 H* D Fibrinogen Fibrin Degrad Products Fibrin Degrad Prod, Qt Puncture Site Lb pCO2 44 pO2 118 H HCO3 11.1 L ABG pH 7.04 L* ABG Total CO2 13.3 L ABG O2 Saturation 99.7 H ABG Base Excess -17.8 L ABG Hemoglobin 9.5 L ABG Carboxyhemoglobin 1.3 POC ABG HHb (Measured) 0.3 ABG Methemoglobin 0.7 Bryce Test Na VBG pH VBG pCO2 VBG HCO3 VBG Total CO2 VBG O2 Sat (Calc) VBG Base Excess VBG Potassium A-a O2 Difference 540.0 Respiratory Index 4.6 Hgb O2 Saturation 97.7 Sodium Chloride Glucose Lactate Vent Mode Prvc Mechanical Rate 24 FiO2 100.0 Tidal Volume 450 PEEP 2 Crit Value Called To Jeramy vasquez/rn Crit Value Called By Yusef schofield/rt Crit Value Read Back Y Blood Gas Notified Time 500 Potassium Carbon Dioxide Anion Gap BUN Creatinine Est GFR ( Amer) Est GFR (Non-Af Amer) Random Glucose Lactic Acid Calcium Phosphorus Magnesium Total Bilirubin AST ALT Alkaline Phosphatase Total Protein Albumin Globulin Albumin/Globulin Ratio Procalcitonin Venous Blood Potassium Stool Occult Blood Stool Leukocytes, Qual C. difficile Ag & Toxin Blood Type Blood Type Confirm Antibody Screen 07/28/18 07/28/18 07/28/18 05:30 05:30 07:10 WBC RBC Hgb Hct MCV MCH MCHC RDW Plt Count MPV Neut % (Auto) Lymph % (Auto) [place] % (Auto) Eos % (Auto) Baso % (Auto) Neut # (Auto) Lymph # (Auto) [place] # (Auto) Eos # (Auto) Baso # (Auto) Neutrophils % (Manual) Band Neutrophils % Lymphocytes % (Manual) Monocytes % (Manual) Metamyelocytes % Platelet Estimate RBC Morphology Poikilocytosis (manual Anisocytosis (manual) PT INR APTT > 400 H* Fibrinogen Fibrin Degrad Products Fibrin Degrad Prod, Qt Puncture Site pCO2 pO2 HCO3 ABG pH ABG Total CO2 ABG O2 Saturation ABG Base Excess ABG Hemoglobin ABG Carboxyhemoglobin POC ABG HHb (Measured) ABG Methemoglobin Bryce Test VBG pH VBG pCO2 VBG HCO3 VBG Total CO2 VBG O2 Sat (Calc) VBG Base Excess VBG Potassium A-a O2 Difference Respiratory Index Hgb O2 Saturation Sodium 153 H Chloride 120 H Glucose Lactate Vent Mode Mechanical Rate FiO2 Tidal Volume PEEP Crit Value Called To Crit Value Called By Crit Value Read Back Blood Gas Notified Time Potassium 4.4 Carbon Dioxide 14 L Anion Gap 23 H BUN 29 H Creatinine 2.8 H Est GFR ( Amer) 22 Est GFR (Non-Af Amer) 18 Random Glucose 148 H Lactic Acid 7.9 H* Calcium 6.0 L* Phosphorus 6.4 H Magnesium 1.5 L Total Bilirubin 0.8 AST 692 H ALT 338 H Alkaline Phosphatase 50 Total Protein 4.3 L Albumin 2.4 L D Globulin 1.9 L Albumin/Globulin Ratio 1.2 Procalcitonin Venous Blood Potassium Stool Occult Blood Stool Leukocytes, Qual C. difficile Ag & Toxin Blood Type Blood Type Confirm Antibody Screen Assessment & Plan - Assessment and Plan (Free Text) Assessment: 48 year old female admitted s/p cardiac arrest secondary to bilateral pulmonary embolus and septic shock (currently) on three vasopressors, intubated, with severe acidosis not responding to IV bicarbonate warranting emergent hemodialysis for supportive care. Currently, ICU team is in the process of ins erting dialysis catheter once INR is close to 2.0. Further recommendations per Dr. Henson, attending physician in regards to dialysis. We will continue to treat aggressively with the primary physician and the other consultants. - Date & Time Date: 07/28/18 Time: 10:21 <Pato Henson - Last Filed: 07/28/18 23:49> Meds - Medications Medications: Current Medications Heparin Sodium/Sodium Chloride (Heparin 29986 Units/250ml 1/2 Normal Saline) 25,000 units in 250 mls @ 12.247 mls/hr IV .[id number] PRN; Protocol PRN Reason: ADJUST RATE PER PROTOCOL Last Titration: 07/28/18 18:34 Dose: 16.875 units/kg/hr, 12.247 mls/hr Norepinephrine Bitartrate 4 mg (/ Sodium Chloride) 250 mls @ 15 mls/hr IV .[id number] PRN; Protocol PRN Reason: TITRATE PER MD ORDER Last Titration: 07/28/18 23:00 Dose: 5 mcg/min, 18.75 mls/hr Cisatracurium Besylate 100 mg/ (Dextrose) 250 mls @ 32.66 mls/hr IV .Q7H40M PRN; Protocol PRN Reason: Agitation Last Titration: 07/28/18 19:02 Dose: 0 mcg/kg/min, 0 mls/hr Phenylephrine HCl 30 mg/ (Sodium Chloride) 250 mls @ 10 mls/hr IV .Q24H PRN; Protocol PRN Reason: TITRATE PER MD ORDER Last Titration: 07/28/18 15:37 Dose: 0 mcg/min, 0 mls/hr Vasopressin 40 units/ Sodium (Chloride) 40 mls @ 1.2 mls/hr IV .Q24H [facility]; Protocol Last Titration: 07/28/18 19:24 Dose: 0 units/min, 0 mls/hr Dexmedetomidine HCl 200 mcg/ (Sodium Chloride) 50 mls @ 3.63 mls/hr IV TITR PRN; Protocol PRN Reason: Sedation Last Admin: 07/28/18 22:53 Dose: 0.5 mcg/kg/hr, 9.07 mls/hr Metronidazole (Flagyl) 500 mg in 100 mls @ 100 mls/hr IVPB Q8H [facility]; Protocol Last Admin: 07/28/18 17:34 Dose: 100 mls/hr Vancomycin HCl (Vancocin 750mg/Ns 150 Ml) 150 mls @ 100 mls/hr IVPB Q24H [facility]; Protocol Last Admin: 07/28/18 11:48 Dose: 100 mls/hr Piperacillin Sod/Tazobactam (Sod 2.25 gm/ Sodium Chloride) 100 mls @ 200 mls/hr IVPB Q6H [facility]; Protocol Last Admin: 07/28/18 22:30 Dose: 200 mls/hr Sodium Bicarbonate 75 meq/ (Sodium Chloride) 1,075 mls @ 100 mls/hr IV .[id number] [facility] Lorazepam (Ativan) 2 mg IVP Q4 PRN PRN Reason: Anxiety Methylprednisolone (Solu-Medrol) 40 mg IVP TID [facility] Last Admin: 07/28/18 17:43 Dose: 40 mg Pantoprazole Sodium (Protonix Inj) 40 mg IVP Q12 [facility] Last Admin: 07/28/18 22:47 Dose: 40 mg Results - Vital Signs Recent Vital Signs: Last Vital Signs Temp 99.9 F H 07/28/18 20:00 Pulse 93 H 07/28/18 23:02 Resp 22 07/28/18 23:02 BP 80/53 L 07/28/18 23:02 Pulse Ox 99 07/28/18 23:02 - Labs Result Diagrams: 07/28/18 10:31 07/28/18 10:31 Labs: Laboratory Results - last 24 hr 07/28/18 07/28/18 07/28/18 00:32 00:32 04:45 WBC 38.5 H* RBC 3.57 L Hgb 9.3 L Hct 30.0 L MCV 84.2 D MCH 26.0 L MCHC 30.9 L RDW 14.3 Plt Count 128 L D MPV 9.1 Neut % (Auto) 92.9 H Lymph % (Auto) 4.6 L [place] % (Auto) 1.9 Eos % (Auto) 0.6 Baso % (Auto) 0.0 Neut # (Auto) 35.8 H Lymph # (Auto) 1.8 [place] # (Auto) 0.7 Eos # (Auto) 0.2 Baso # (Auto) 0.0 Neutrophils % (Manual) 76 H Band Neutrophils % 20 H* Lymphocytes % (Manual) 2 L Monocytes % (Manual) 2 Metamyelocytes % Platelet Estimate Slightly decreased L Hypochromasia (manual) Poikilocytosis (manual Slight Basophilic Stippling Anisocytosis (manual) Slight PT INR APTT > 400 H* D Puncture Site Lb pCO2 44 pO2 118 H HCO3 11.1 L ABG pH 7.04 L* ABG Total CO2 13.3 L ABG O2 Saturation 99.7 H ABG Base Excess -17.8 L ABG Hemoglobin 9.5 L ABG Carboxyhemoglobin 1.3 POC ABG HHb (Measured) 0.3 ABG Methemoglobin 0.7 Bryce Test Na ABG Potassium VBG pH VBG pCO2 VBG HCO3 VBG Total CO2 VBG O2 Sat (Calc) VBG Base Excess VBG Potassium A-a O2 Difference 540.0 Respiratory Index 4.6 Hgb O2 Saturation 97.7 Glucose Lactate Vent Mode Prvc Mechanical Rate 24 FiO2 100.0 Tidal Volume 450 PEEP 2 Crit Value Called To Jeramy vasquez/rn Crit Value Called By Yusef schofield/rt Crit Value Read Back Y Blood Gas Notified Time 500 Sodium Potassium Chloride Carbon Dioxide Anion Gap BUN Creatinine Est GFR ( Amer) Est GFR (Non-Af Amer) Random Glucose Lactic Acid Calcium Phosphorus Magnesium Total Bilirubin AST ALT Alkaline Phosphatase Total Protein Albumin Globulin Albumin/Globulin Ratio Procalcitonin Arterial Blood Potassium Venous Blood Potassium 07/28/18 07/28/18 07/28/18 05:30 05:30 05:30 WBC 39.7 H* RBC 3.66 L Hgb 9.6 L Hct 30.5 L MCV 83.5 MCH 26.3 L MCHC 31.5 L RDW 14.3 Plt Count 128 L MPV 9.5 Neut % (Auto) 90.2 H Lymph % (Auto) 7.1 L [place] % (Auto) 2.0 Eos % (Auto) 0.6 Baso % (Auto) 0.1 Neut # (Auto) 35.9 H Lymph # (Auto) 2.8 [place] # (Auto) 0.8 Eos # (Auto) 0.2 Baso # (Auto) 0.0 Neutrophils % (Manual) 65 Band Neutrophils % 23 H* Lymphocytes % (Manual) 9 L Monocytes % (Manual) 2 Metamyelocytes % 1 H Platelet Estimate Slightly decreased L Hypochromasia (manual) Poikilocytosis (manual Slight Basophilic Stippling Anisocytosis (manual) Slight PT INR APTT Puncture Site pCO2 pO2 HCO3 ABG pH ABG Total CO2 ABG O2 Saturation ABG Base Excess ABG Hemoglobin ABG Carboxyhemoglobin POC ABG HHb (Measured) ABG Methemoglobin Bryce Test ABG Potassium VBG pH VBG pCO2 VBG HCO3 VBG Total CO2 VBG O2 Sat (Calc) VBG Base Excess VBG Potassium A-a O2 Difference Respiratory Index Hgb O2 Saturation Glucose Lactate Vent Mode Mechanical Rate FiO2 Tidal Volume PEEP Crit Value Called To Crit Value Called By Crit Value Read Back Blood Gas Notified Time Sodium 153 H Potassium 4.4 Chloride 120 H Carbon Dioxide 14 L Anion Gap 23 H BUN 29 H Creatinine 2.8 H Est GFR ( Amer) 22 Est GFR (Non-Af Amer) 18 Random Glucose 148 H Lactic Acid 7.9 H* Calcium 6.0 L* Phosphorus 6.4 H Magnesium 1.5 L Total Bilirubin 0.8 AST 692 H ALT 338 H Alkaline Phosphatase 50 Total Protein 4.3 L Albumin 2.4 L D Globulin 1.9 L Albumin/Globulin Ratio 1.2 Procalcitonin Arterial Blood Potassium Venous Blood Potassium 07/28/18 07/28/18 07/28/18 07:10 09:56 10:00 WBC RBC Hgb Hct MCV MCH MCHC RDW Plt Count MPV Neut % (Auto) Lymph % (Auto) [place] % (Auto) Eos % (Auto) Baso % (Auto) Neut # (Auto) Lymph # (Auto) [place] # (Auto) Eos # (Auto) Baso # (Auto) Neutrophils % (Manual) Band Neutrophils % Lymphocytes % (Manual) Monocytes % (Manual) Metamyelocytes % Platelet Estimate Hypochromasia (manual) Poikilocytosis (manual Basophilic Stippling Anisocytosis (manual) PT 25.8 H INR 2.4 APTT > 400 H* 176 H* D Puncture Site pCO2 pO2 HCO3 ABG pH ABG Total CO2 ABG O2 Saturation ABG Base Excess ABG Hemoglobin ABG Carboxyhemoglobin POC ABG HHb (Measured) ABG Methemoglobin Bryce Test ABG Potassium VBG pH VBG pCO2 VBG HCO3 VBG Total CO2 VBG O2 Sat (Calc) VBG Base Excess VBG Potassium A-a O2 Difference Respiratory Index Hgb O2 Saturation Glucose Lactate Vent Mode Mechanical Rate FiO2 Tidal Volume PEEP Crit Value Called To Crit Value Called By Crit Value Read Back Blood Gas Notified Time Sodium Potassium Chloride Carbon Dioxide Anion Gap BUN Creatinine Est GFR ( Amer) Est GFR (Non-Af Amer) Random Glucose Lactic Acid Calcium Phosphorus Magnesium Total Bilirubin AST ALT Alkaline Phosphatase Total Protein Albumin Globulin Albumin/Globulin Ratio Procalcitonin > 200.00 H Arterial Blood Potassium Venous Blood Potassium 07/28/18 07/28/18 07/28/18 10:13 10:31 10:31 WBC 29.0 H RBC 3.31 L Hgb 8.6 L Hct 27.4 L MCV 82.7 MCH 26.0 L MCHC 31.4 L RDW 14.4 Plt Count 102 L D MPV 9.4 Neut % (Auto) 88.4 H Lymph % (Auto) 8.9 L [place] % (Auto) 2.2 Eos % (Auto) 0.4 Baso % (Auto) 0.1 Neut # (Auto) 25.7 H Lymph # (Auto) 2.6 [place] # (Auto) 0.6 Eos # (Auto) 0.1 Baso # (Auto) 0.0 Neutrophils % (Manual) 72 Band Neutrophils % 16 H* Lymphocytes % (Manual) 10 L Monocytes % (Manual) 1 Metamyelocytes % 1 H Platelet Estimate Slightly decreased L Hypochromasia (manual) Slight Poikilocytosis (manual Basophilic Stippling Slight Anisocytosis (manual) PT INR APTT Puncture Site pCO2 pO2 18 L HCO3 ABG pH ABG Total CO2 ABG O2 Saturation ABG Base Excess ABG Hemoglobin ABG Carboxyhemoglobin POC ABG HHb (Measured) ABG Methemoglobin Bryce Test ABG Potassium VBG pH 7.04 L* VBG pCO2 48 VBG HCO3 8.9 VBG Total CO2 14.5 L VBG O2 Sat (Calc) 31.5 L VBG Base Excess -17.5 L VBG Potassium 3.0 L A-a O2 Difference Respiratory Index Hgb O2 Saturation Glucose 119 H Lactate 6.1 H* Vent Mode Mechanical Rate FiO2 100.0 Tidal Volume PEEP 5 Crit Value Called To Dr tessie Crit Value Called By Philip miya 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 cleaning 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 Crit Value Read Back Y Blood Gas Notified Time 1020 Sodium 151.0 H 153 H Potassium 4.3 Chloride 127.0 H 119 H Carbon Dioxide 18 L Anion Gap 21 H BUN 32 H Creatinine 3.2 H Est GFR ( Amer) 19 Est GFR (Non-Af Amer) 16 Random Glucose 144 H Lactic Acid Calcium 5.7 L* Phosphorus 5.8 H Magnesium 1.5 L Total Bilirubin 0.8 AST 995 H D ALT 442 H D Alkaline Phosphatase 38 D Total Protein 3.9 L Albumin 2.2 L Globulin 1.7 L Albumin/Globulin Ratio 1.3 Procalcitonin Arterial Blood Potassium Venous Blood Potassium 3.0 L 07/28/18 07/28/18 07/28/18 12:24 16:21 16:34 WBC RBC Hgb Hct MCV MCH MCHC RDW Plt Count MPV Neut % (Auto) Lymph % (Auto) [place] % (Auto) Eos % (Auto) Baso % (Auto) Neut # (Auto) Lymph # (Auto) [place] # (Auto) Eos # (Auto) Baso # (Auto) Neutrophils % (Manual) Band Neutrophils % Lymphocytes % (Manual) Monocytes % (Manual) Metamyelocytes % Platelet Estimate Hypochromasia (manual) Poikilocytosis (manual Basophilic Stippling Anisocytosis (manual) PT INR APTT Puncture Site Rfem Lb pCO2 33 L 22 L pO2 38 38 L* 310 H HCO3 20.1 L 21.1 ABG pH 7.37 7.48 H ABG Total CO2 20.1 L 17.1 L ABG O2 Saturation 80.7 L 100.8 H ABG Base Excess -5.3 L -5.0 L ABG Hemoglobin ABG Carboxyhemoglobin POC ABG HHb (Measured) ABG Methemoglobin Bryce Test Na Na ABG Potassium 3.2 L VBG pH 7.25 L VBG pCO2 38 L VBG HCO3 16.2 VBG Total CO2 17.9 L VBG O2 Sat (Calc) 78.0 H VBG Base Excess -9.9 L VBG Potassium 3.2 L A-a O2 Difference 634.0 376.0 Respiratory Index 16.7 1.2 Hgb O2 Saturation Glucose 160 H 153 H Lactate 6.5 H* 5.1 H* Vent Mode Prvc Prvc Mechanical Rate 30 20 FiO2 100.0 100.0 100.0 Tidal Volume 500 500 PEEP 5 5 5 Crit Value Called To Dr tessie kurtz Crit Value Called By Daphne valentine Crit Value Read Back Y Y Y Blood Gas Notified Time 1230 1624 1637 Sodium 152.0 H 151.0 H Potassium Chloride 123.0 H 125.0 H Carbon Dioxide Anion Gap BUN Creatinine Est GFR ( Amer) Est GFR (Non-Af Amer) Random Glucose Lactic Acid Calcium Phosphorus Magnesium Total Bilirubin AST ALT Alkaline Phosphatase Total Protein Albumin Globulin Albumin/Globulin Ratio Procalcitonin Arterial Blood Potassium 3.2 L Venous Blood Potassium 3.2 L 07/28/18 07/28/18 17:58 23:15 WBC RBC Hgb Hct MCV MCH MCHC RDW Plt Count MPV Neut % (Auto) Lymph % (Auto) [place] % (Auto) Eos % (Auto) Baso % (Auto) Neut # (Auto) Lymph # (Auto) [place] # (Auto) Eos # (Auto) Baso # (Auto) Neutrophils % (Manual) Band Neutrophils % Lymphocytes % (Manual) Monocytes % (Manual) Metamyelocytes % Platelet Estimate Hypochromasia (manual) Poikilocytosis (manual Basophilic Stippling Anisocytosis (manual) PT INR APTT 45 H D Puncture Site Rr pCO2 30 L pO2 180 H HCO3 24.3 ABG pH 7.48 H ABG Total CO2 23.2 ABG O2 Saturation 99.0 H ABG Base Excess -0.9 ABG Hemoglobin 8.0 L ABG Carboxyhemoglobin 0.5 POC ABG HHb (Measured) 1.0 ABG Methemoglobin 0.6 Bryce Test Pos ABG Potassium VBG pH VBG pCO2 VBG HCO3 VBG Total CO2 VBG O2 Sat (Calc) VBG Base Excess VBG Potassium A-a O2 Difference 210.0 Respiratory Index 1.2 Hgb O2 Saturation 97.9 Glucose Lactate Vent Mode Prvc Mechanical Rate 20 FiO2 60.0 Tidal Volume 500 PEEP 5 Crit Value Called To Crit Value Called By Crit Value Read Back Blood Gas Notified Time Sodium Potassium Chloride Carbon Dioxide Anion Gap BUN Creatinine Est GFR ( Amer) Est GFR (Non-Af Amer) Random Glucose Lactic Acid Calcium Phosphorus Magnesium Total Bilirubin AST ALT Alkaline Phosphatase Total Protein Albumin Globulin Albumin/Globulin Ratio Procalcitonin Arterial Blood Potassium Venous Blood Potassium Attending/Attestation - Attestation I have personally seen and examined this patient.: Yes I have fully participated in the care of the patient.: Yes I have reviewed all pertinent clinical information: Yes Notes (Text): Patient seen and examined; I agree with the resident's note as above with the following additions/edits: Patient with pmh of anxiety, possible recent UTI, admitted with respiratory arrest/bradycardia requiring ACLS protocol, found to have PE and with septic shock; nephrology consulted for acute renal failure; Oliguric renal failure, clinically consistent with ATN in the setting of septic shock and post-IV contrast study; profound metabolic acidosis from high lactate; acute hypoxemic respiratory failure with concern for high FIO2 requirement; plan was initiate HD to help regulate both volume status and acidosis, however, delayed by need to correct coagulopathy with FFP; acidosis has subsequently been corrected by bicarb drip and patient able to come down on FIO2 requirement; therefore, no emergent need for HD currently but will likely need to start in the next 24 hrs if patient remains oliguric; Currently on broad spectrum antibiotics with flagyl, zosyn and vanco; should dose antibiotics for CrCl < 20; will check vanco random level in am before re- dosing to avoid vanco toxicity; -changing bicarb drip to 1/2NS w/ 75 meq sodium bicarb (to keep isotonic as patient is becoming hypernatremic), continuing to run at 150 cc/hr; -checking PTT/INR in am as patient may need to further correct coagulopathy to place HD catheter; -avoid further nephrotoxic agents; Critical care time spent assessing patient and discussing with CCM team > 35 minutes. 07/28/18 23:48
[2018-07-28] MEDS: Magnesium Sulfate 1 gm in D5W 1 GM/100 ML BAG IVPB SCH ×2 (10:00→10:01)
[2018-07-28] MEDS: MethylPREDNISolone 40 mg Vial IVP SCH ×3 (10:04→17:43)
[2018-07-28 10:19] LABS: VENOUS BLOOD GAS BASE EXCESS -17.5 mmol/L (0.0-2.0); VENOUS BLOOD GAS PCO2 48 mmHg (40-60); VENOUS BLOOD GAS PO2 18 mm/Hg (30-55); VENOUS BLOOD PH 7.04 (7.32-7.43)
[2018-07-28 10:37] LABS: BASO % 0.1 % (0.0-2.0); EOS # 0.1 K/uL (0.0-0.7); EOS % 0.4 % (0.0-4.0); HEMOGLOBIN 8.6 g/dL (11.0-16.0); LYMPH # 2.6 K/uL (1.0-4.3); LYMPH % 8.9 % (20.0-40.0); MEAN CELL VOLUME 82.7 fL (81.0-99.0); MEAN CORPUSCULAR HGB CONC 31.4 g/dL (33.0-37.0); MEAN PLATELET VOLUME 9.4 fL (7.2-11.7); MONO # 0.6 K/uL (0.0-0.8); MONO % 2.2 % (0.0-10.0); NEUT # 25.7 K/uL (1.8-7.0); NEUT % 88.4 % (50.0-75.0); NRBC % 0.1 % (0.0-2.0); RBC 3.31 Mil/uL (3.80-5.20); RED CELL DISTRIBUTION WIDTH 14.4 % (11.5-14.5)
[2018-07-28] MEDS: Piperacillin/Tazobact 2.25 GM in Sodium Chloride 100 ML IVPB SCH ×3 (10:44→22:30)
[2018-07-28 10:53] LABS: PLATELET COUNT 102 K/uL (130-400)
[2018-07-28 11:04] LABS: ALB/GLOB RATIO 1.3 (1.0-2.1); ALBUMIN 2.2 g/dL (3.5-5.0); CALCIUM 5.7 mg/dl (8.6-10.4)
--- NOTE | 2018-07-28 11:23 | VASCLAB ---
Date of service: 07/27/2018 PROCEDURE: Lower Extremity Venous Duplex Exam. HISTORY: massive pe PRIORS: None. TECHNIQUE: Bilateral common femoral, femoral, popliteal and posterior tibial, peroneal and great saphenous veins were evaluated. Flow was assessed with color Doppler, compressibility, assessment of phasic flow and augmentation response. Report prepared by Vasyl Nugent, KHARI, RVT FINDINGS: RIGHT: 1. Common Femoral Vein: 1.1. Compressibility - Fully compressible: Thrombus - None : Flow - Phasic: Augmentation -Normal: Reflux - None. 2. Femoral Vein: 2.1. Compressibility - Fully compressible: Thrombus - None : Flow - Phasic: Augmentation -Normal: Reflux - None. 3. Popliteal Vein: 3.1. Compressibility - Fully compressible: Thrombus - None : Flow - Phasic: Augmentation -Normal: Reflux - None. 4. Posterior Tibial Vein: 4.1. Compressibility - Fully compressible: Thrombus - None: Flow - Phasic: Augmentation -Normal: Reflux - None. 5. Peroneal Vein: 5.1. Compressibility - Fully compressible: Thrombus - None: Flow - Phasic: Augmentation -Normal: Reflux - None. 6. Great Saphenous Vein: 6.1. Compressibility - Fully compressible: Thrombus - None: Flow - Phasic: Augmentation - Normal: Reflux - None. LEFT: 1. Common Femoral Vein: 1.1. Compressibility - Partial: Thrombus - Acute: Flow - Reduced : Augmentation -Reduced: Reflux - None. 2. Femoral Vein: 2.1. Compressibility - Fully compressible: Thrombus - None: Flow - Phasic: Augmentation -Normal: Reflux - None. 3. Popliteal Vein: 3.1. Compressibility - Fully compressible: Thrombus - None : Flow - Phasic: Augmentation -Normal: Reflux - None. 4. Posterior Tibial Vein: 4.1. Compressibility - Fully compressible: Thrombus - None: Flow - Phasic: Augmentation -Normal: Reflux - None. 5. Peroneal Vein: 5.1. Compressibility - Fully compressible: Thrombus - None: Flow - Phasic: Augmentation -Normal: Reflux - None. 6. Great Saphenous Vein: 6.1. Compressibility - Fully compressible: Thrombus - None: Flow - Phasic: Augmentation - Normal: Reflux - None. OTHER FINDINGS: KIMBERLY Menon notified about the findings. Impression Right: No evidence of deep or superficial vein thrombosis of the right lower extremity. Normal valve function noted of the right side. Left: Acute thrombosis of the left common femoral vein with severe reduction of the venous return.
[2018-07-28 11:29] LABS: BANDS 16 % (0-2); LYMPHOCYTE 10 % (20-40); METAMYELOCYTE 1 % (0-0); MONOCYTE 1 % (0-10); NEUTROPHIL 72 % (50-75); TOTAL CELLS COUNTED 100
[2018-07-28 11:30] LABS: HYPOCHROMIC SLIGHT; PLATELET ESTIMATE SLIGHTLY DECREASED (NORMAL)
--- NOTE | 2018-07-28 11:57 | CP.PCM.CON ---
History of Present Illness - History of Present Illness History of Present Illness: Vascular/General Surgery Consult Re: IVC filter, ischemic colitis HPI: Pt Intubated and sedated, history taken from EMR and family. 48F presented to the ED on 07/27/18 with sudden onset chest pain and SOB. On 07/26/18 pt experienced a syncopal episode upon returning home after a day of car travel. In ED, pt went into Afib with RVR that resolved with cardizem. Pt then experienced respiratory distress and bradycardia. ACLS was performed and the pt was intubated and transferred to the ICU. CT angio showed b/l PE and US of b/l femoral veins showed DVT. This morning, bleeding from IV sites was noted and heparin was dc'd. We are consulted for placement of an IVC filter since she cannot be on AC at this time. In addition, due to worsening acidosis and increasing septic signs, there is a concern for ischemic colitis; however, CT abdomen showed questionable enteritis. Pt had several malodorous episodes of diarrhea. Currently pt is intubated, sedated and on 3 pressors with a labile BP, acidosis, and multi-organ dysfunction. Nephro planning to start HD today. PMH: Anxiety PSH: Bariatric surgery, x 2, abdominoplasty, breast implants SH: Per family, no alcohol, tobacco, drug use. Recently moved from [place] 2 months ago, lives with niece. FH: Unobtainable Meds: Protonix 40mg PO daily, Cipro 500mg PO, OCP All: NKDA Review of Systems - Review of Systems Systems not reviewed;Unavailable: Altered Mental Status (sedated), Intubated Past Patient History - Infectious Disease Hx of Infectious Diseases: None - Past Medical History & Family History Past Medical History?: Yes - Past Social History Smoking Status: Never Smoked - CARDIAC Hx Cardiac Disorders: (unable to obtain) - PULMONARY Hx Respiratory Disorders: (unable to obtain) - NEUROLOGICAL Hx Neurological Disorder: (unable to obtain) - HEENT Hx HEENT Problems: (unable to obtain) - RENAL Hx Chronic Kidney Disease: (unable to obtain) - ENDOCRINE/METABOLIC Hx Endocrine Disorders: (unable to obtain) - HEMATOLOGICAL/ONCOLOGICAL Hx Blood Disorders: (unable to obtain) - INTEGUMENTARY Hx Dermatological Problems: (unable to obtain) - MUSCULOSKELETAL/RHEUMATOLOGICAL Hx Musculoskeletal Disorders: (unable to obtain) - GASTROINTESTINAL Hx Gastrointestinal Disorders: (unable to obtain) - GENITOURINARY/GYNECOLOGICAL Hx Genitourinary Disorders: (unable to obtain) - PSYCHIATRIC Hx Anxiety: Yes Hx Substance Use: No - SURGICAL HISTORY Hx Surgeries: Yes (As per Family Member) Hx Section: Yes (x2) Other/Comment: Bariatric Sx - ANESTHESIA Hx Anesthesia: Yes Hx Anesthesia Reactions: No Hx Malignant Hyperthermia: No Meds Allergies/Adverse Reactions: Allergies Allergy/AdvReac Type Severity Reaction Status Date / Time No Known Allergies Allergy Unverified 07/27/18 02:28 - Medications Medications: Current Medications Heparin Sodium/Sodium Chloride (Heparin 11349 Units/250ml 1/2 Normal Saline) 25,000 units in 250 mls @ 12.247 mls/hr IV .[id number] PRN; Protocol PRN Reason: ADJUST RATE PER PROTOCOL Last Titration: 07/28/18 07:45 Dose: 0 units/kg/hr, 0 mls/hr Norepinephrine Bitartrate 4 mg (/ Sodium Chloride) 250 mls @ 15 mls/hr IV .[id number] PRN; Protocol PRN Reason: TITRATE PER MD ORDER Last Titration: 07/28/18 10:56 Dose: 20 mcg/min, 75 mls/hr Cisatracurium Besylate 100 mg/ (Dextrose) 250 mls @ 32.66 mls/hr IV .Q7H40M PRN; Protocol PRN Reason: Agitation Last Titration: 07/28/18 08:32 Dose: 1.8 mcg/kg/min, 19.6 mls/hr Phenylephrine HCl 30 mg/ (Sodium Chloride) 250 mls @ 10 mls/hr IV .Q24H PRN; Protocol PRN Reason: TITRATE PER MD ORDER Last Titration: 07/28/18 06:00 Dose: 0 mcg/min, 0 mls/hr Vasopressin 40 units/ Sodium (Chloride) 40 mls @ 1.2 mls/hr IV .Q24H [facility]; Protocol Last Admin: 07/27/18 23:15 Dose: 0.04 units/min, 2.4 mls/hr Dexmedetomidine HCl 200 mcg/ (Sodium Chloride) 50 mls @ 3.63 mls/hr IV TITR PRN; Protocol PRN Reason: Sedation Last Titration: 07/28/18 08:33 Dose: 0.09 mcg/kg/hr, 1.8 mls/hr Metronidazole (Flagyl) 500 mg in 100 mls @ 100 mls/hr IVPB Q8H [facility]; Protocol Last Admin: 07/28/18 10:04 Dose: 100 mls/hr Sodium Bicarbonate 150 meq/ (Sodium Chloride) 1,150 mls @ 150 mls/hr IV .Q7H40M [facility] Last Admin: 07/28/18 10:43 Dose: 150 mls/hr Vancomycin HCl (Vancocin 750mg/Ns 150 Ml) 150 mls @ 100 mls/hr IVPB Q24H [facility]; Protocol Last Admin: 07/28/18 11:48 Dose: 100 mls/hr Piperacillin Sod/Tazobactam (Sod 2.25 gm/ Sodium Chloride) 100 mls @ 200 mls/hr IVPB Q6H [facility]; Protocol Last Admin: 07/28/18 10:44 Dose: 200 mls/hr Calcium Gluconate 2,000 mg/ (Sodium Chloride) 270 mls @ 125 mls/hr IVPB ONCE ONE Stop: 07/28/18 14:09 Lorazepam (Ativan) 2 mg IVP Q4 PRN PRN Reason: Anxiety Methylprednisolone (Solu-Medrol) 40 mg IVP TID [facility] Last Admin: 07/28/18 10:04 Dose: 40 mg Pantoprazole Sodium (Protonix Inj) 40 mg IVP Q12 [facility] Last Admin: 07/28/18 10:04 Dose: 40 mg Physical Exam - Constitutional Appears: Toxic Additional comments: GCS 3T - Head Exam Head Exam: NORMAL INSPECTION, NORMOCEPHALIC - Eye Exam Eye Exam: Periorbital swelling (ecchymosis), PERRL (sluggish). absent: Scleral icterus - ENT Exam Additional comments: ETT in place, trachea midline - Neck Exam Neck exam: Negative for: Normal Inspection (L side ecchymosis and edema around L IJ CVC insertion site) - Respiratory Exam Respiratory Exam: absent: Accessory Muscle Use, NORMAL BREATHING PATTERN (Respirations 30/min on vent) - Cardiovascular Exam Cardiovascular Exam: RRR, +S1, +S2 - GI/Abdominal Exam GI & Abdominal Exam: Soft. absent: Distended, Firm, Guarding, Hernia, Rebound, Rigid Additional comments: abdominoplasty scars well healed - Rectal Exam Rectal Exam: Deferred - Exam Additional comments: brady in place - Extremities Exam Extremities exam: Positive for: normal capillary refill, pedal edema - Neurological Exam Neurological exam: Altered (on precedex) - Skin Skin Exam: Dry, Warm Results - Vital Signs Recent Vital Signs: Last Vital Signs Temp 100.8 F H 07/28/18 08:00 Pulse 88 07/28/18 11:00 Resp 24 07/28/18 11:00 BP 126/64 07/28/18 11:00 Pulse Ox 95 07/28/18 11:00 - Labs Result Diagrams: 07/28/18 10:31 07/28/18 10:31 Labs: Laboratory Results - last 24 hr 07/27/18 07/27/18 07/27/18 10:04 13:29 13:42 WBC RBC Hgb Hct MCV MCH MCHC RDW Plt Count MPV Neut % (Auto) Lymph % (Auto) [place] % (Auto) Eos % (Auto) Baso % (Auto) Neut # (Auto) Lymph # (Auto) [place] # (Auto) Eos # (Auto) Baso # (Auto) Neutrophils % (Manual) Band Neutrophils % Lymphocytes % (Manual) Monocytes % (Manual) Metamyelocytes % Platelet Estimate RBC Morphology Hypochromasia (manual) Poikilocytosis (manual Basophilic Stippling Anisocytosis (manual) PT > 320.0 H INR > 10.0 APTT > 400 H* Puncture Site pCO2 pO2 30 HCO3 ABG pH ABG Total CO2 ABG O2 Saturation ABG Base Excess ABG Hemoglobin ABG Carboxyhemoglobin POC ABG HHb (Measured) ABG Methemoglobin Bryce Test VBG pH 7.02 L* VBG pCO2 77 H* VBG HCO3 13.5 VBG Total CO2 22.3 VBG O2 Sat (Calc) 58.5 VBG Base Excess -12.3 L VBG Potassium 2.4 L* A-a O2 Difference Respiratory Index Hgb O2 Saturation Sodium 152.0 H Chloride 124.0 H Glucose 107 H Lactate 4.1 H* Vent Mode Mechanical Rate FiO2 100.0 Tidal Volume PEEP 5 Crit Value Called To Dr merritt Crit Value Called By Maribell holliday wick and base assembler Crit Value Read Back Y Blood Gas Notified Time 1335 Potassium Carbon Dioxide Anion Gap BUN Creatinine Est GFR ( Amer) Est GFR (Non-Af Amer) Random Glucose Lactic Acid Calcium Phosphorus Magnesium Total Bilirubin AST ALT Alkaline Phosphatase Total Protein Albumin Globulin Albumin/Globulin Ratio Procalcitonin 4.31 H Venous Blood Potassium 2.4 L* Stool Occult Blood Stool Leukocytes, Qual C. difficile Ag & Toxin Blood Type Blood Type Confirm Antibody Screen 07/27/18 07/27/18 07/27/18 16:42 18:11 18:26 WBC 25.8 H RBC 3.44 L Hgb 8.6 L Hct 27.7 L MCV 80.4 L MCH 24.9 L MCHC 31.0 L RDW 13.3 Plt Count 160 MPV 8.7 Neut % (Auto) 94.7 H Lymph % (Auto) 3.1 L [place] % (Auto) 1.5 Eos % (Auto) 0.6 Baso % (Auto) 0.1 Neut # (Auto) 24.4 H Lymph # (Auto) 0.8 L [place] # (Auto) 0.4 Eos # (Auto) 0.2 Baso # (Auto) 0.0 Neutrophils % (Manual) 88 H Band Neutrophils % 9 H Lymphocytes % (Manual) 2 L Monocytes % (Manual) 1 Metamyelocytes % Platelet Estimate Normal RBC Morphology Normal Hypochromasia (manual) Poikilocytosis (manual Basophilic Stippling Anisocytosis (manual) PT INR APTT Puncture Site pCO2 pO2 60 H HCO3 ABG pH ABG Total CO2 ABG O2 Saturation ABG Base Excess ABG Hemoglobin ABG Carboxyhemoglobin POC ABG HHb (Measured) ABG Methemoglobin Bryce Test VBG pH 7.20 L VBG pCO2 45 VBG HCO3 16.6 VBG Total CO2 19.0 L VBG O2 Sat (Calc) 93.2 H VBG Base Excess -10.2 L VBG Potassium 3.9 A-a O2 Difference Respiratory Index Hgb O2 Saturation Sodium 149.0 H Chloride 121.0 H Glucose 140 H Lactate 6.1 H* Vent Mode Mechanical Rate FiO2 Tidal Volume PEEP Crit Value Called To Narinder herorn Crit Value Called By Rinku Crit Value Read Back Y Blood Gas Notified Time 1814 Potassium Carbon Dioxide Anion Gap BUN Creatinine Est GFR ( Amer) Est GFR (Non-Af Amer) Random Glucose Lactic Acid Calcium Phosphorus Magnesium Total Bilirubin AST ALT Alkaline Phosphatase Total Protein Albumin Globulin Albumin/Globulin Ratio Procalcitonin Venous Blood Potassium 3.9 Stool Occult Blood Stool Leukocytes, Qual C. difficile Ag & Toxin Negative Blood Type Blood Type Confirm Antibody Screen 07/27/18 07/27/18 07/27/18 18:26 18:26 18:26 WBC RBC Hgb Hct MCV MCH MCHC RDW Plt Count MPV Neut % (Auto) Lymph % (Auto) [place] % (Auto) Eos % (Auto) Baso % (Auto) Neut # (Auto) Lymph # (Auto) [place] # (Auto) Eos # (Auto) Baso # (Auto) Neutrophils % (Manual) Band Neutrophils % Lymphocytes % (Manual) Monocytes % (Manual) Metamyelocytes % Platelet Estimate RBC Morphology Hypochromasia (manual) Poikilocytosis (manual Basophilic Stippling Anisocytosis (manual) PT INR APTT Puncture Site pCO2 pO2 HCO3 ABG pH ABG Total CO2 ABG O2 Saturation ABG Base Excess ABG Hemoglobin ABG Carboxyhemoglobin POC ABG HHb (Measured) ABG Methemoglobin Bryce Test VBG pH VBG pCO2 VBG HCO3 VBG Total CO2 VBG O2 Sat (Calc) VBG Base Excess VBG Potassium A-a O2 Difference Respiratory Index Hgb O2 Saturation Sodium 150 H Chloride 119 H Glucose Lactate Vent Mode Mechanical Rate FiO2 Tidal Volume PEEP Crit Value Called To Crit Value Called By Crit Value Read Back Blood Gas Notified Time Potassium 4.1 Carbon Dioxide 20 L Anion Gap 16 BUN 28 H Creatinine 2.0 H Est GFR ( Amer) 32 Est GFR (Non-Af Amer) 27 Random Glucose 137 H Lactic Acid Calcium 5.9 L* Phosphorus 6.4 H Magnesium 1.8 Total Bilirubin 0.5 AST 709 H ALT 318 H Alkaline Phosphatase 114 Total Protein 4.0 L Albumin 1.9 L Globulin 2.1 L Albumin/Globulin Ratio 0.9 L Procalcitonin Venous Blood Potassium Stool Occult Blood Positive H Stool Leukocytes, Qual Negative C. difficile Ag & Toxin Blood Type Blood Type Confirm Antibody Screen 07/27/18 07/27/18 07/28/18 18:26 19:40 00:32 WBC 38.5 H* RBC 3.57 L Hgb 9.3 L Hct 30.0 L MCV 84.2 D MCH 26.0 L MCHC 30.9 L RDW 14.3 Plt Count 128 L D MPV 9.1 Neut % (Auto) 92.9 H Lymph % (Auto) 4.6 L [place] % (Auto) 1.9 Eos % (Auto) 0.6 Baso % (Auto) 0.0 Neut # (Auto) 35.8 H Lymph # (Auto) 1.8 [place] # (Auto) 0.7 Eos # (Auto) 0.2 Baso # (Auto) 0.0 Neutrophils % (Manual) 76 H Band Neutrophils % 20 H* Lymphocytes % (Manual) 2 L Monocytes % (Manual) 2 Metamyelocytes % Platelet Estimate Slightly decreased L RBC Morphology Hypochromasia (manual) Poikilocytosis (manual Slight Basophilic Stippling Anisocytosis (manual) Slight PT 27.4 H D INR 2.5 D APTT 41 H D Puncture Site pCO2 pO2 HCO3 ABG pH ABG Total CO2 ABG O2 Saturation ABG Base Excess ABG Hemoglobin ABG Carboxyhemoglobin POC ABG HHb (Measured) ABG Methemoglobin Bryce Test VBG pH VBG pCO2 VBG HCO3 VBG Total CO2 VBG O2 Sat (Calc) VBG Base Excess VBG Potassium A-a O2 Difference Respiratory Index Hgb O2 Saturation Sodium Chloride Glucose Lactate Vent Mode Mechanical Rate FiO2 Tidal Volume PEEP Crit Value Called To Crit Value Called By Crit Value Read Back Blood Gas Notified Time Potassium Carbon Dioxide Anion Gap BUN Creatinine Est GFR ( Amer) Est GFR (Non-Af Amer) Random Glucose Lactic Acid Calcium Phosphorus Magnesium Total Bilirubin AST ALT Alkaline Phosphatase Total Protein Albumin Globulin Albumin/Globulin Ratio Procalcitonin Venous Blood Potassium Stool Occult Blood Stool Leukocytes, Qual C. difficile Ag & Toxin Blood Type A POSITIVE Blood Type Confirm A POSITIVE Antibody Screen Negative 07/28/18 07/28/18 07/28/18 00:32 04:45 05:30 WBC 39.7 H* RBC 3.66 L Hgb 9.6 L Hct 30.5 L MCV 83.5 MCH 26.3 L MCHC 31.5 L RDW 14.3 Plt Count 128 L MPV 9.5 Neut % (Auto) 90.2 H Lymph % (Auto) 7.1 L [place] % (Auto) 2.0 Eos % (Auto) 0.6 Baso % (Auto) 0.1 Neut # (Auto) 35.9 H Lymph # (Auto) 2.8 [place] # (Auto) 0.8 Eos # (Auto) 0.2 Baso # (Auto) 0.0 Neutrophils % (Manual) 65 Band Neutrophils % 23 H* Lymphocytes % (Manual) 9 L Monocytes % (Manual) 2 Metamyelocytes % 1 H Platelet Estimate Slightly decreased L RBC Morphology Hypochromasia (manual) Poikilocytosis (manual Slight Basophilic Stippling Anisocytosis (manual) Slight PT INR APTT > 400 H* D Puncture Site Lb pCO2 44 pO2 118 H HCO3 11.1 L ABG pH 7.04 L* ABG Total CO2 13.3 L ABG O2 Saturation 99.7 H ABG Base Excess -17.8 L ABG Hemoglobin 9.5 L ABG Carboxyhemoglobin 1.3 POC ABG HHb (Measured) 0.3 ABG Methemoglobin 0.7 Bryce Test Na VBG pH VBG pCO2 VBG HCO3 VBG Total CO2 VBG O2 Sat (Calc) VBG Base Excess VBG Potassium A-a O2 Difference 540.0 Respiratory Index 4.6 Hgb O2 Saturation 97.7 Sodium Chloride Glucose Lactate Vent Mode Prvc Mechanical Rate 24 FiO2 100.0 Tidal Volume 450 PEEP 2 Crit Value Called To Jeramy vasquez/rn Crit Value Called By Yusef schofiedl/rt Crit Value Read Back Y Blood Gas Notified Time 500 Potassium Carbon Dioxide Anion Gap BUN Creatinine Est GFR ( Amer) Est GFR (Non-Af Amer) Random Glucose Lactic Acid Calcium Phosphorus Magnesium Total Bilirubin AST ALT Alkaline Phosphatase Total Protein Albumin Globulin Albumin/Globulin Ratio Procalcitonin Venous Blood Potassium Stool Occult Blood Stool Leukocytes, Qual C. difficile Ag & Toxin Blood Type Blood Type Confirm Antibody Screen 07/28/18 07/28/18 07/28/18 05:30 05:30 07:10 WBC RBC Hgb Hct MCV MCH MCHC RDW Plt Count MPV Neut % (Auto) Lymph % (Auto) [place] % (Auto) Eos % (Auto) Baso % (Auto) Neut # (Auto) Lymph # (Auto) [place] # (Auto) Eos # (Auto) Baso # (Auto) Neutrophils % (Manual) Band Neutrophils % Lymphocytes % (Manual) Monocytes % (Manual) Metamyelocytes % Platelet Estimate RBC Morphology Hypochromasia (manual) Poikilocytosis (manual Basophilic Stippling Anisocytosis (manual) PT INR APTT > 400 H* Puncture Site pCO2 pO2 HCO3 ABG pH ABG Total CO2 ABG O2 Saturation ABG Base Excess ABG Hemoglobin ABG Carboxyhemoglobin POC ABG HHb (Measured) ABG Methemoglobin Bryce Test VBG pH VBG pCO2 VBG HCO3 VBG Total CO2 VBG O2 Sat (Calc) VBG Base Excess VBG Potassium A-a O2 Difference Respiratory Index Hgb O2 Saturation Sodium 153 H Chloride 120 H Glucose Lactate Vent Mode Mechanical Rate FiO2 Tidal Volume PEEP Crit Value Called To Crit Value Called By Crit Value Read Back Blood Gas Notified Time Potassium 4.4 Carbon Dioxide 14 L Anion Gap 23 H BUN 29 H Creatinine 2.8 H Est GFR ( Amer) 22 Est GFR (Non-Af Amer) 18 Random Glucose 148 H Lactic Acid 7.9 H* Calcium 6.0 L* Phosphorus 6.4 H Magnesium 1.5 L Total Bilirubin 0.8 AST 692 H ALT 338 H Alkaline Phosphatase 50 Total Protein 4.3 L Albumin 2.4 L D Globulin 1.9 L Albumin/Globulin Ratio 1.2 Procalcitonin Venous Blood Potassium Stool Occult Blood Stool Leukocytes, Qual C. difficile Ag & Toxin Blood Type Blood Type Confirm Antibody Screen 07/28/18 07/28/18 07/28/18 10:00 10:13 10:31 WBC RBC Hgb Hct MCV MCH MCHC RDW Plt Count MPV Neut % (Auto) Lymph % (Auto) [place] % (Auto) Eos % (Auto) Baso % (Auto) Neut # (Auto) Lymph # (Auto) [place] # (Auto) Eos # (Auto) Baso # (Auto) Neutrophils % (Manual) Band Neutrophils % Lymphocytes % (Manual) Monocytes % (Manual) Metamyelocytes % Platelet Estimate RBC Morphology Hypochromasia (manual) Poikilocytosis (manual Basophilic Stippling Anisocytosis (manual) PT INR APTT 176 H* D Puncture Site pCO2 pO2 18 L HCO3 ABG pH ABG Total CO2 ABG O2 Saturation ABG Base Excess ABG Hemoglobin ABG Carboxyhemoglobin POC ABG HHb (Measured) ABG Methemoglobin Bryce Test VBG pH 7.04 L* VBG pCO2 48 VBG HCO3 8.9 VBG Total CO2 14.5 L VBG O2 Sat (Calc) 31.5 L VBG Base Excess -17.5 L VBG Potassium 3.0 L A-a O2 Difference Respiratory Index Hgb O2 Saturation Sodium 151.0 H 153 H Chloride 127.0 H 119 H Glucose 119 H Lactate 6.1 H* Vent Mode Mechanical Rate FiO2 100.0 Tidal Volume PEEP 5 Crit Value Called To Dr kurtz Crit Value Called By Philip holliday wick and base assembler Crit Value Read Back Y Blood Gas Notified Time 1020 Potassium 4.3 Carbon Dioxide 18 L Anion Gap 21 H BUN 32 H Creatinine 3.2 H Est GFR ( Amer) 19 Est GFR (Non-Af Amer) 16 Random Glucose 144 H Lactic Acid Calcium 5.7 L* Phosphorus 5.8 H Magnesium 1.5 L Total Bilirubin 0.8 AST 995 H D ALT 442 H D Alkaline Phosphatase 38 D Total Protein 3.9 L Albumin 2.2 L Globulin 1.7 L Albumin/Globulin Ratio 1.3 Procalcitonin Venous Blood Potassium 3.0 L Stool Occult Blood Stool Leukocytes, Qual C. difficile Ag & Toxin Blood Type Blood Type Confirm Antibody Screen 07/28/18 10:31 WBC 29.0 H RBC 3.31 L Hgb 8.6 L Hct 27.4 L MCV 82.7 MCH 26.0 L MCHC 31.4 L RDW 14.4 Plt Count 102 L D MPV 9.4 Neut % (Auto) 88.4 H Lymph % (Auto) 8.9 L [place] % (Auto) 2.2 Eos % (Auto) 0.4 Baso % (Auto) 0.1 Neut # (Auto) 25.7 H Lymph # (Auto) 2.6 [place] # (Auto) 0.6 Eos # (Auto) 0.1 Baso # (Auto) 0.0 Neutrophils % (Manual) 72 Band Neutrophils % 16 H* Lymphocytes % (Manual) 10 L Monocytes % (Manual) 1 Metamyelocytes % 1 H Platelet Estimate Slightly decreased L RBC Morphology Hypochromasia (manual) Slight Poikilocytosis (manual Basophilic Stippling Slight Anisocytosis (manual) PT INR APTT Puncture Site pCO2 pO2 HCO3 ABG pH ABG Total CO2 ABG O2 Saturation ABG Base Excess ABG Hemoglobin ABG Carboxyhemoglobin POC ABG HHb (Measured) ABG Methemoglobin Bryce Test VBG pH VBG pCO2 VBG HCO3 VBG Total CO2 VBG O2 Sat (Calc) VBG Base Excess VBG Potassium A-a O2 Difference Respiratory Index Hgb O2 Saturation Sodium Chloride Glucose Lactate Vent Mode Mechanical Rate FiO2 Tidal Volume PEEP Crit Value Called To Crit Value Called By Crit Value Read Back Blood Gas Notified Time Potassium Carbon Dioxide Anion Gap BUN Creatinine Est GFR ( Amer) Est GFR (Non-Af Amer) Random Glucose Lactic Acid Calcium Phosphorus Magnesium Total Bilirubin AST ALT Alkaline Phosphatase Total Protein Albumin Globulin Albumin/Globulin Ratio Procalcitonin Venous Blood Potassium Stool Occult Blood Stool Leukocytes, Qual C. difficile Ag & Toxin Blood Type Blood Type Confirm Antibody Screen - Imaging and Cardiology CT scan - abdomen Status: Image reviewed by me, Report reviewed by me CT scan - chest Status: Image reviewed by me, Report reviewed by me CT scan - head Status: Image reviewed by me, Report reviewed by me Assessment & Plan - Assessment and Plan (Free Text) Assessment: 48F with b/l PE, Femoral DVTs, sepsis. Plan: Can place IVC filter once stable CTA abdomen once stable to evaluate for ischemic colitis D/W Dr. Mike Chowdhury PGY4
[2018-07-28] MEDS ORDERED: Vancomycin 750mg/NS 150 ml 150 ML IVPB SCH (12:00)
[2018-07-28 12:23] LABS: INR 2.4; PROTHROMBIN TIME 25.8 SECONDS (9.7-12.2)
[2018-07-28 12:29] LABS: VENOUS BLOOD GAS BASE EXCESS -9.9 mmol/L (0.0-2.0); VENOUS BLOOD GAS PCO2 38 mmHg (40-60); VENOUS BLOOD GAS PO2 38 mm/Hg (30-55); VENOUS BLOOD PH 7.25 (7.32-7.43)
--- NOTE | 2018-07-28 13:22 | CP.PCM.CON ---
History of Present Illness - History of Present Illness History of Present Illness: Palliative consult requested by Doctor Kurtz for goals of care discussion and family support Patient is a 48 yo female admitted post epigastric and chest pain at home. 911 called by doorman who witnessed patient clenching her chest and collapsing. Patient found unresponsive by EMS in AFib, HR 156. Patient was given Cardizem and Morphine with some improvement.Per her nephew, patient was able to talk and told him she could not breath. Patient transferred to ED. In ED, patient underwent respiratory distress with severe bradicardia, ACLS was performed. Patient was intubated for respiratory support. CT chest was significant for extensive B/L lobes PE. Positive DVT in LEs.Placed on Heparin drip. Ct abdomen and pelvis found severe enteritis. Triple IV antibiotics initiated. BiCarbs also on board for acidosis, PH 7.04. triple pre ssoros on board. BP 117/39 despite pressors and IV boluses. During the night patient had poppy blood in the urine, heparin stopped and blood transfused. Plan is to start HD and eventually IVC filter if patient becomes more stable for the procedure. BP 117/39, HR 93, O2Sat 94% WBC 29.0, down from 39.7, Hb 8.6, Platelets 102 PMH: recurent UTIs, anxiety, on control pills Soc. Hx: , lives in [place], was visiting her niece here in [place], had recent trip to [place] to visit [facility] [employer]. Hx : denied Review of Systems - Review of Systems All systems: reviewed and no additional remarkable complaints except Review of Systems: ROS unobtainable from patient due to condition. ROS obtained from ICU team. Per ICU team, the hematuria noted over night had stopped and blood was transfused w/out complications. Past Patient History - Infectious Disease Hx of Infectious Diseases: None - Past Medical History & Family History Past Medical History?: Yes - Past Social History Smoking Status: Never Smoked - CARDIAC Hx Cardiac Disorders: (unable to obtain) - PULMONARY Hx Respiratory Disorders: (unable to obtain) - NEUROLOGICAL Hx Neurological Disorder: (unable to obtain) - HEENT Hx HEENT Problems: (unable to obtain) - RENAL Hx Chronic Kidney Disease: (unable to obtain) - ENDOCRINE/METABOLIC Hx Endocrine Disorders: (unable to obtain) - HEMATOLOGICAL/ONCOLOGICAL Hx Blood Disorders: (unable to obtain) - INTEGUMENTARY Hx Dermatological Problems: (unable to obtain) - MUSCULOSKELETAL/RHEUMATOLOGICAL Hx Musculoskeletal Disorders: (unable to obtain) - GASTROINTESTINAL Hx Gastrointestinal Disorders: (unable to obtain) - GENITOURINARY/GYNECOLOGICAL Hx Genitourinary Disorders: (unable to obtain) - PSYCHIATRIC Hx Anxiety: Yes Hx Substance Use: No - SURGICAL HISTORY Hx Surgeries: Yes (As per Family Member) Hx Section: Yes (x2) Other/Comment: Bariatric Sx - ANESTHESIA Hx Anesthesia: Yes Hx Anesthesia Reactions: No Hx Malignant Hyperthermia: No Meds Allergies/Adverse Reactions: Allergies Allergy/AdvReac Type Severity Reaction Status Date / Time No Known Allergies Allergy Unverified 07/27/18 02:28 - Medications Medications: Current Medications Heparin Sodium/Sodium Chloride (Heparin 36612 Units/250ml 1/2 Normal Saline) 25,000 units in 250 mls @ 12.247 mls/hr IV .[id number] PRN; Protocol PRN Reason: ADJUST RATE PER PROTOCOL Last Titration: 07/28/18 07:45 Dose: 0 units/kg/hr, 0 mls/hr Norepinephrine Bitartrate 4 mg (/ Sodium Chloride) 250 mls @ 15 mls/hr IV .[id number] PRN; Protocol PRN Reason: TITRATE PER MD ORDER Last Admin: 07/28/18 11:53 Dose: 20 mcg/min, 75 mls/hr Cisatracurium Besylate 100 mg/ (Dextrose) 250 mls @ 32.66 mls/hr IV .Q7H40M PRN; Protocol PRN Reason: Agitation Last Titration: 07/28/18 11:52 Dose: 2 mcg/kg/min, 21.77 mls/hr Phenylephrine HCl 30 mg/ (Sodium Chloride) 250 mls @ 10 mls/hr IV .Q24H PRN; Protocol PRN Reason: TITRATE PER MD ORDER Last Titration: 07/28/18 11:55 Dose: 60 mcg/min, 30 mls/hr Vasopressin 40 units/ Sodium (Chloride) 40 mls @ 1.2 mls/hr IV .Q24H [facility]; Protocol Last Admin: 07/27/18 23:15 Dose: 0.04 units/min, 2.4 mls/hr Dexmedetomidine HCl 200 mcg/ (Sodium Chloride) 50 mls @ 3.63 mls/hr IV TITR PRN; Protocol PRN Reason: Sedation Last Titration: 07/28/18 08:33 Dose: 0.09 mcg/kg/hr, 1.8 mls/hr Metronidazole (Flagyl) 500 mg in 100 mls @ 100 mls/hr IVPB Q8H [facility]; Protocol Last Admin: 07/28/18 10:04 Dose: 100 mls/hr Sodium Bicarbonate 150 meq/ (Sodium Chloride) 1,150 mls @ 150 mls/hr IV .Q7H40M [facility] Last Admin: 07/28/18 10:43 Dose: 150 mls/hr Vancomycin HCl (Vancocin 750mg/Ns 150 Ml) 150 mls @ 100 mls/hr IVPB Q24H [facility]; Protocol Last Admin: 07/28/18 11:48 Dose: 100 mls/hr Piperacillin Sod/Tazobactam (Sod 2.25 gm/ Sodium Chloride) 100 mls @ 200 mls/hr IVPB Q6H [facility]; Protocol Last Admin: 07/28/18 10:44 Dose: 200 mls/hr Calcium Gluconate 2,000 mg/ (Sodium Chloride) 270 mls @ 125 mls/hr IVPB ONCE ONE Stop: 07/28/18 14:09 Lorazepam (Ativan) 2 mg IVP Q4 PRN PRN Reason: Anxiety Methylprednisolone (Solu-Medrol) 40 mg IVP TID [facility] Last Admin: 07/28/18 10:04 Dose: 40 mg Pantoprazole Sodium (Protonix Inj) 40 mg IVP Q12 [facility] Last Admin: 07/28/18 10:04 Dose: 40 mg Physical Exam - Constitutional Appears: In Acute Distress - Head Exam Additional comments: left orbital area large bruise, post fall at home - Eye Exam Pupil Exam: NORMAL ACCOMODATION Additional comments: left orbital hematoma - ENT Exam Additional comments: ETT tube - Neck Exam Additional comments: Left centarl line catheter - Respiratory Exam Respiratory Exam: Decreased Breath Sounds Additional comments: On Max MV support - Cardiovascular Exam Cardiovascular Exam: Tachycardia - GI/Abdominal Exam GI & Abdominal Exam: Diminished Bowel Sounds, Soft - Rectal Exam Rectal Exam: Deferred - Extremities Exam Extremities exam: Positive for: normal inspection, pedal edema, pedal pulses present - Back Exam Back exam: NORMAL INSPECTION - Neurological Exam Neurological exam: Motor Sensory Deficit - Psychiatric Exam Psychiatric exam: Flat Affect - Skin Skin Exam: Dry, Pallor, Warm Results - Vital Signs Recent Vital Signs: Last Vital Signs Temp 100.8 F H 07/28/18 08:00 Pulse 88 07/28/18 11:00 Resp 24 07/28/18 11:00 BP 120/80 07/28/18 11:53 Pulse Ox 95 07/28/18 11:00 - Labs Result Diagrams: 07/28/18 10:31 07/28/18 10:31 Labs: Laboratory Results - last 24 hr 07/27/18 07/27/18 07/27/18 13:29 13:42 16:42 WBC RBC Hgb Hct MCV MCH MCHC RDW Plt Count MPV Neut % (Auto) Lymph % (Auto) Bleckley % (Auto) Eos % (Auto) Baso % (Auto) Neut # (Auto) Lymph # (Auto) Bleckley # (Auto) Eos # (Auto) Baso # (Auto) Neutrophils % (Manual) Band Neutrophils % Lymphocytes % (Manual) Monocytes % (Manual) Metamyelocytes % Platelet Estimate RBC Morphology Hypochromasia (manual) Poikilocytosis (manual Basophilic Stippling Anisocytosis (manual) PT > 320.0 H INR > 10.0 APTT > 400 H* Puncture Site pCO2 pO2 30 HCO3 ABG pH ABG Total CO2 ABG O2 Saturation ABG Base Excess ABG Hemoglobin ABG Carboxyhemoglobin POC ABG HHb (Measured) ABG Methemoglobin Bryce Test VBG pH 7.02 L* VBG pCO2 77 H* VBG HCO3 13.5 VBG Total CO2 22.3 VBG O2 Sat (Calc) 58.5 VBG Base Excess -12.3 L VBG Potassium 2.4 L* A-a O2 Difference Respiratory Index Hgb O2 Saturation Sodium 152.0 H Chloride 124.0 H Glucose 107 H Lactate 4.1 H* Vent Mode Mechanical Rate FiO2 100.0 Tidal Volume PEEP 5 Crit Value Called To Dr merritt Crit Value Called By Maribell holliday crt Crit Value Read Back Y Blood Gas Notified Time 1335 Potassium Carbon Dioxide Anion Gap BUN Creatinine Est GFR ( Amer) Est GFR (Non-Af Amer) Random Glucose Lactic Acid Calcium Phosphorus Magnesium Total Bilirubin AST ALT Alkaline Phosphatase Total Protein Albumin Globulin Albumin/Globulin Ratio Procalcitonin Venous Blood Potassium 2.4 L* Stool Occult Blood Stool Leukocytes, Qual C. difficile Ag & Toxin Negative Blood Type Blood Type Confirm Antibody Screen 07/27/18 07/27/18 07/27/18 18:11 18:26 18:26 WBC 25.8 H RBC 3.44 L Hgb 8.6 L Hct 27.7 L MCV 80.4 L MCH 24.9 L MCHC 31.0 L RDW 13.3 Plt Count 160 MPV 8.7 Neut % (Auto) 94.7 H Lymph % (Auto) 3.1 L Bleckley % (Auto) 1.5 Eos % (Auto) 0.6 Baso % (Auto) 0.1 Neut # (Auto) 24.4 H Lymph # (Auto) 0.8 L Bleckley # (Auto) 0.4 Eos # (Auto) 0.2 Baso # (Auto) 0.0 Neutrophils % (Manual) 88 H Band Neutrophils % 9 H Lymphocytes % (Manual) 2 L Monocytes % (Manual) 1 Metamyelocytes % Platelet Estimate Normal RBC Morphology Normal Hypochromasia (manual) Poikilocytosis (manual Basophilic Stippling Anisocytosis (manual) PT INR APTT Puncture Site pCO2 pO2 60 H HCO3 ABG pH ABG Total CO2 ABG O2 Saturation ABG Base Excess ABG Hemoglobin ABG Carboxyhemoglobin POC ABG HHb (Measured) ABG Methemoglobin Bryce Test VBG pH 7.20 L VBG pCO2 45 VBG HCO3 16.6 VBG Total CO2 19.0 L VBG O2 Sat (Calc) 93.2 H VBG Base Excess -10.2 L VBG Potassium 3.9 A-a O2 Difference Respiratory Index Hgb O2 Saturation Sodium 149.0 H 150 H Chloride 121.0 H 119 H Glucose 140 H Lactate 6.1 H* Vent Mode Mechanical Rate FiO2 Tidal Volume PEEP Crit Value Called To Narinder herron Crit Value Called By Rinku Crit Value Read Back Y Blood Gas Notified Time 1815 Potassium 4.1 Carbon Dioxide 20 L Anion Gap 16 BUN 28 H Creatinine 2.0 H Est GFR ( Amer) 32 Est GFR (Non-Af Amer) 27 Random Glucose 137 H Lactic Acid Calcium 5.9 L* Phosphorus 6.4 H Magnesium 1.8 Total Bilirubin 0.5 AST 709 H ALT 318 H Alkaline Phosphatase 114 Total Protein 4.0 L Albumin 1.9 L Globulin 2.1 L Albumin/Globulin Ratio 0.9 L Procalcitonin Venous Blood Potassium 3.9 Stool Occult Blood Stool Leukocytes, Qual C. difficile Ag & Toxin Blood Type Blood Type Confirm Antibody Screen 07/27/18 07/27/18 07/27/18 18:26 18:26 18:26 WBC RBC Hgb Hct MCV MCH MCHC RDW Plt Count MPV Neut % (Auto) Lymph % (Auto) Bleckley % (Auto) Eos % (Auto) Baso % (Auto) Neut # (Auto) Lymph # (Auto) Bleckley # (Auto) Eos # (Auto) Baso # (Auto) Neutrophils % (Manual) Band Neutrophils % Lymphocytes % (Manual) Monocytes % (Manual) Metamyelocytes % Platelet Estimate RBC Morphology Hypochromasia (manual) Poikilocytosis (manual Basophilic Stippling Anisocytosis (manual) PT 27.4 H D INR 2.5 D APTT 41 H D Puncture Site pCO2 pO2 HCO3 ABG pH ABG Total CO2 ABG O2 Saturation ABG Base Excess ABG Hemoglobin ABG Carboxyhemoglobin POC ABG HHb (Measured) ABG Methemoglobin Bryce Test VBG pH VBG pCO2 VBG HCO3 VBG Total CO2 VBG O2 Sat (Calc) VBG Base Excess VBG Potassium A-a O2 Difference Respiratory Index Hgb O2 Saturation Sodium Chloride Glucose Lactate Vent Mode Mechanical Rate FiO2 Tidal Volume PEEP Crit Value Called To Crit Value Called By Crit Value Read Back Blood Gas Notified Time Potassium Carbon Dioxide Anion Gap BUN Creatinine Est GFR ( Amer) Est GFR (Non-Af Amer) Random Glucose Lactic Acid Calcium Phosphorus Magnesium Total Bilirubin AST ALT Alkaline Phosphatase Total Protein Albumin Globulin Albumin/Globulin Ratio Procalcitonin Venous Blood Potassium Stool Occult Blood Positive H Stool Leukocytes, Qual Negative C. difficile Ag & Toxin Blood Type Blood Type Confirm Antibody Screen 07/27/18 07/28/18 07/28/18 19:40 00:32 00:32 WBC 38.5 H* RBC 3.57 L Hgb 9.3 L Hct 30.0 L MCV 84.2 D MCH 26.0 L MCHC 30.9 L RDW 14.3 Plt Count 128 L D MPV 9.1 Neut % (Auto) 92.9 H Lymph % (Auto) 4.6 L Bleckley % (Auto) 1.9 Eos % (Auto) 0.6 Baso % (Auto) 0.0 Neut # (Auto) 35.8 H Lymph # (Auto) 1.8 Bleckley # (Auto) 0.7 Eos # (Auto) 0.2 Baso # (Auto) 0.0 Neutrophils % (Manual) 76 H Band Neutrophils % 20 H* Lymphocytes % (Manual) 2 L Monocytes % (Manual) 2 Metamyelocytes % Platelet Estimate Slightly decreased L RBC Morphology Hypochromasia (manual) Poikilocytosis (manual Slight Basophilic Stippling Anisocytosis (manual) Slight PT INR APTT > 400 H* D Puncture Site pCO2 pO2 HCO3 ABG pH ABG Total CO2 ABG O2 Saturation ABG Base Excess ABG Hemoglobin ABG Carboxyhemoglobin POC ABG HHb (Measured) ABG Methemoglobin Bryce Test VBG pH VBG pCO2 VBG HCO3 VBG Total CO2 VBG O2 Sat (Calc) VBG Base Excess VBG Potassium A-a O2 Difference Respiratory Index Hgb O2 Saturation Sodium Chloride Glucose Lactate Vent Mode Mechanical Rate FiO2 Tidal Volume PEEP Crit Value Called To Crit Value Called By Crit Value Read Back Blood Gas Notified Time Potassium Carbon Dioxide Anion Gap BUN Creatinine Est GFR ( Amer) Est GFR (Non-Af Amer) Random Glucose Lactic Acid Calcium Phosphorus Magnesium Total Bilirubin AST ALT Alkaline Phosphatase Total Protein Albumin Globulin Albumin/Globulin Ratio Procalcitonin Venous Blood Potassium Stool Occult Blood Stool Leukocytes, Qual C. difficile Ag & Toxin Blood Type A POSITIVE Blood Type Confirm A POSITIVE Antibody Screen Negative 07/28/18 07/28/18 07/28/18 04:45 05:30 05:30 WBC 39.7 H* RBC 3.66 L Hgb 9.6 L Hct 30.5 L MCV 83.5 MCH 26.3 L MCHC 31.5 L RDW 14.3 Plt Count 128 L MPV 9.5 Neut % (Auto) 90.2 H Lymph % (Auto) 7.1 L Bleckley % (Auto) 2.0 Eos % (Auto) 0.6 Baso % (Auto) 0.1 Neut # (Auto) 35.9 H Lymph # (Auto) 2.8 Bleckley # (Auto) 0.8 Eos # (Auto) 0.2 Baso # (Auto) 0.0 Neutrophils % (Manual) 65 Band Neutrophils % 23 H* Lymphocytes % (Manual) 9 L Monocytes % (Manual) 2 Metamyelocytes % 1 H Platelet Estimate Slightly decreased L RBC Morphology Hypochromasia (manual) Poikilocytosis (manual Slight Basophilic Stippling Anisocytosis (manual) Slight PT INR APTT Puncture Site Lb pCO2 44 pO2 118 H HCO3 11.1 L ABG pH 7.04 L* ABG Total CO2 13.3 L ABG O2 Saturation 99.7 H ABG Base Excess -17.8 L ABG Hemoglobin 9.5 L ABG Carboxyhemoglobin 1.3 POC ABG HHb (Measured) 0.3 ABG Methemoglobin 0.7 Bryce Test Na VBG pH VBG pCO2 VBG HCO3 VBG Total CO2 VBG O2 Sat (Calc) VBG Base Excess VBG Potassium A-a O2 Difference 540.0 Respiratory Index 4.6 Hgb O2 Saturation 97.7 Sodium 153 H Chloride 120 H Glucose Lactate Vent Mode Prvc Mechanical Rate 24 FiO2 100.0 Tidal Volume 450 PEEP 2 Crit Value Called To Jeramy vasquez/rn Crit Value Called By Yusef schofield/rt Crit Value Read Back Y Blood Gas Notified Time 500 Potassium 4.4 Carbon Dioxide 14 L Anion Gap 23 H BUN 29 H Creatinine 2.8 H Est GFR ( Amer) 22 Est GFR (Non-Af Amer) 18 Random Glucose 148 H Lactic Acid Calcium 6.0 L* Phosphorus 6.4 H Magnesium 1.5 L Total Bilirubin 0.8 AST 692 H ALT 338 H Alkaline Phosphatase 50 Total Protein 4.3 L Albumin 2.4 L D Globulin 1.9 L Albumin/Globulin Ratio 1.2 Procalcitonin Venous Blood Potassium Stool Occult Blood Stool Leukocytes, Qual C. difficile Ag & Toxin Blood Type Blood Type Confirm Antibody Screen 07/28/18 07/28/18 07/28/18 05:30 07:10 09:56 WBC RBC Hgb Hct MCV MCH MCHC RDW Plt Count MPV Neut % (Auto) Lymph % (Auto) Bleckley % (Auto) Eos % (Auto) Baso % (Auto) Neut # (Auto) Lymph # (Auto) Bleckley # (Auto) Eos # (Auto) Baso # (Auto) Neutrophils % (Manual) Band Neutrophils % Lymphocytes % (Manual) Monocytes % (Manual) Metamyelocytes % Platelet Estimate RBC Morphology Hypochromasia (manual) Poikilocytosis (manual Basophilic Stippling Anisocytosis (manual) PT INR APTT > 400 H* Puncture Site pCO2 pO2 HCO3 ABG pH ABG Total CO2 ABG O2 Saturation ABG Base Excess ABG Hemoglobin ABG Carboxyhemoglobin POC ABG HHb (Measured) ABG Methemoglobin Bryce Test VBG pH VBG pCO2 VBG HCO3 VBG Total CO2 VBG O2 Sat (Calc) VBG Base Excess VBG Potassium A-a O2 Difference Respiratory Index Hgb O2 Saturation Sodium Chloride Glucose Lactate Vent Mode Mechanical Rate FiO2 Tidal Volume PEEP Crit Value Called To Crit Value Called By Crit Value Read Back Blood Gas Notified Time Potassium Carbon Dioxide Anion Gap BUN Creatinine Est GFR ( Amer) Est GFR (Non-Af Amer) Random Glucose Lactic Acid 7.9 H* Calcium Phosphorus Magnesium Total Bilirubin AST ALT Alkaline Phosphatase Total Protein Albumin Globulin Albumin/Globulin Ratio Procalcitonin > 200.00 H Venous Blood Potassium Stool Occult Blood Stool Leukocytes, Qual C. difficile Ag & Toxin Blood Type Blood Type Confirm Antibody Screen 07/28/18 07/28/18 07/28/18 10:00 10:13 10:31 WBC RBC Hgb Hct MCV MCH MCHC RDW Plt Count MPV Neut % (Auto) Lymph % (Auto) Bleck[place] % (Auto) Eos % (Auto) Baso % (Auto) Neut # (Auto) Lymph # (Auto) Bleckley # (Auto) Eos # (Auto) Baso # (Auto) Neutrophils % (Manual) Band Neutrophils % Lymphocytes % (Manual) Monocytes % (Manual) Metamyelocytes % Platelet Estimate RBC Morphology Hypochromasia (manual) Poikilocytosis (manual Basophilic Stippling Anisocytosis (manual) PT 25.8 H INR 2.4 APTT 176 H* D Puncture Site pCO2 pO2 18 L HCO3 ABG pH ABG Total CO2 ABG O2 Saturation ABG Base Excess ABG Hemoglobin ABG Carboxyhemoglobin POC ABG HHb (Measured) ABG Methemoglobin Bryce Test VBG pH 7.04 L* VBG pCO2 48 VBG HCO3 8.9 VBG Total CO2 14.5 L VBG O2 Sat (Calc) 31.5 L VBG Base Excess -17.5 L VBG Potassium 3.0 L A-a O2 Difference Respiratory Index Hgb O2 Saturation Sodium 151.0 H 153 H Chloride 127.0 H 119 H Glucose 119 H Lactate 6.1 H* Vent Mode Mechanical Rate FiO2 100.0 Tidal Volume PEEP 5 Crit Value Called To Dr kurtz Crit Value Called By Philip holliday city carrier assistant Crit Value Read Back Y Blood Gas Notified Time 1020 Potassium 4.3 Carbon Dioxide 18 L Anion Gap 21 H BUN 32 H Creatinine 3.2 H Est GFR ( Amer) 19 Est GFR (Non-Af Amer) 16 Random Glucose 144 H Lactic Acid Calcium 5.7 L* Phosphorus 5.8 H Magnesium 1.5 L Total Bilirubin 0.8 AST 995 H D ALT 442 H D Alkaline Phosphatase 38 D Total Protein 3.9 L Albumin 2.2 L Globulin 1.7 L Albumin/Globulin Ratio 1.3 Procalcitonin Venous Blood Potassium 3.0 L Stool Occult Blood Stool Leukocytes, Qual C. difficile Ag & Toxin Blood Type Blood Type Confirm Antibody Screen 07/28/18 07/28/18 10:31 12:24 WBC 29.0 H RBC 3.31 L Hgb 8.6 L Hct 27.4 L MCV 82.7 MCH 26.0 L MCHC 31.4 L RDW 14.4 Plt Count 102 L D MPV 9.4 Neut % (Auto) 88.4 H Lymph % (Auto) 8.9 L Bleckley % (Auto) 2.2 Eos % (Auto) 0.4 Baso % (Auto) 0.1 Neut # (Auto) 25.7 H Lymph # (Auto) 2.6 Bleckley # (Auto) 0.6 Eos # (Auto) 0.1 Baso # (Auto) 0.0 Neutrophils % (Manual) 72 Band Neutrophils % 16 H* Lymphocytes % (Manual) 10 L Monocytes % (Manual) 1 Metamyelocytes % 1 H Platelet Estimate Slightly decreased L RBC Morphology Hypochromasia (manual) Slight Poikilocytosis (manual Basophilic Stippling Slight Anisocytosis (manual) PT INR APTT Puncture Site pCO2 pO2 38 HCO3 ABG pH ABG Total CO2 ABG O2 Saturation ABG Base Excess ABG Hemoglobin ABG Carboxyhemoglobin POC ABG HHb (Measured) ABG Methemoglobin Bryce Test VBG pH 7.25 L VBG pCO2 38 L VBG HCO3 16.2 VBG Total CO2 17.9 L VBG O2 Sat (Calc) 78.0 H VBG Base Excess -9.9 L VBG Potassium 3.2 L A-a O2 Difference Respiratory Index Hgb O2 Saturation Sodium 152.0 H Chloride 123.0 H Glucose 160 H Lactate 6.5 H* Vent Mode Mechanical Rate FiO2 100.0 Tidal Volume PEEP 5 Crit Value Called To Dr kurtz Crit Value Called By Daphne city carrier assistant Crit Value Read Back Y Blood Gas Notified Time 1230 Potassium Carbon Dioxide Anion Gap BUN Creatinine Est GFR ( Amer) Est GFR (Non-Af Amer) Random Glucose Lactic Acid Calcium Phosphorus Magnesium Total Bilirubin AST ALT Alkaline Phosphatase Total Protein Albumin Globulin Albumin/Globulin Ratio Procalcitonin Venous Blood Potassium 3.2 L Stool Occult Blood Stool Leukocytes, Qual C. difficile Ag & Toxin Blood Type Blood Type Confirm Antibody Screen Assessment & Plan - Assessment and Plan (Free Text) Assessment: Palliative consult Full Code, there is no Advance directive on chart, PPS 10% I reviewed medical records, all diagnostic studies, examined patient in the bed. Family meeting attended by patient's nephmarcie Todd ( [phone]) and patient's who fly overnight from [place]. I reviewed patient's clinical presentation and shared overall concern about guarded condition. Vascular team was discussing possibilty of IVC filter placement . It was explained to family that due to complexity of situation that will need to wait until /if patient gets more stable. I made sure family understood what the vascular surgeon talking about and elicited family's understanding of overall condition. Santhosh Todd was translating for the . They both stated being in shock due to this unexpected and very unfortunate event. Peyton expressed feeling of guilt sin ce the patient came from [place] just to help him and his with their baby. I offered emotional support and reassurance. Goals of care discussed. Family is still in shock. They just hope patient will recover and are grateful for care provided to the patient.We agreed to met daily and to fallow. They understand that condition is guarded. Impression * Very unfortunate young lady, S/P cardiorespiratory distress * On Full life support * Hypotension * Thrombycitopenia * Metabolic acidosis * Anticipatory anxiety among the family * Condition is very guarded * Family is hoping for a miracle Suggestion * Continue all life support measures * Monitor for abnormal bleeding * Involve family in care as possible and keep them updated * Pastoral care for spiritual support Palliative care will continue to support family during this very difficult time for them. Advance care planing 30 min.
--- NOTE | 2018-07-28 14:22 | CP.PCM.CON ---
History of Present Illness - History of Present Illness History of Present Illness: dictated Past Patient History - Infectious Disease Hx of Infectious Diseases: None - Past Medical History & Family History Past Medical History?: Yes - Past Social History Smoking Status: Never Smoked - CARDIAC Hx Cardiac Disorders: (unable to obtain) - PULMONARY Hx Respiratory Disorders: (unable to obtain) - NEUROLOGICAL Hx Neurological Disorder: (unable to obtain) - HEENT Hx HEENT Problems: (unable to obtain) - RENAL Hx Chronic Kidney Disease: (unable to obtain) - ENDOCRINE/METABOLIC Hx Endocrine Disorders: (unable to obtain) - HEMATOLOGICAL/ONCOLOGICAL Hx Blood Disorders: (unable to obtain) - INTEGUMENTARY Hx Dermatological Problems: (unable to obtain) - MUSCULOSKELETAL/RHEUMATOLOGICAL Hx Musculoskeletal Disorders: (unable to obtain) - GASTROINTESTINAL Hx Gastrointestinal Disorders: (unable to obtain) - GENITOURINARY/GYNECOLOGICAL Hx Genitourinary Disorders: (unable to obtain) - PSYCHIATRIC Hx Anxiety: Yes Hx Substance Use: No - SURGICAL HISTORY Hx Surgeries: Yes (As per Family Member) Hx Section: Yes (x2) Other/Comment: Bariatric Sx - ANESTHESIA Hx Anesthesia: Yes Hx Anesthesia Reactions: No Hx Malignant Hyperthermia: No Meds Allergies/Adverse Reactions: Allergies Allergy/AdvReac Type Severity Reaction Status Date / Time No Known Allergies Allergy Unverified 07/27/18 02:28 - Medications Medications: Current Medications Heparin Sodium/Sodium Chloride (Heparin 28662 Units/250ml 1/2 Normal Saline) 25,000 units in 250 mls @ 12.247 mls/hr IV .[id number] PRN; Protocol PRN Reason: ADJUST RATE PER PROTOCOL Last Titration: 07/28/18 07:45 Dose: 0 units/kg/hr, 0 mls/hr Norepinephrine Bitartrate 4 mg (/ Sodium Chloride) 250 mls @ 15 mls/hr IV .[id number] PRN; Protocol PRN Reason: TITRATE PER MD ORDER Last Admin: 07/28/18 11:53 Dose: 20 mcg/min, 75 mls/hr Cisatracurium Besylate 100 mg/ (Dextrose) 250 mls @ 32.66 mls/hr IV .Q7H40M PRN; Protocol PRN Reason: Agitation Last Titration: 07/28/18 11:52 Dose: 2 mcg/kg/min, 21.77 mls/hr Phenylephrine HCl 30 mg/ (Sodium Chloride) 250 mls @ 10 mls/hr IV .Q24H PRN; Protocol PRN Reason: TITRATE PER MD ORDER Last Titration: 07/28/18 11:55 Dose: 60 mcg/min, 30 mls/hr Vasopressin 40 units/ Sodium (Chloride) 40 mls @ 1.2 mls/hr IV .Q24H KACY; Protocol Last Admin: 07/27/18 23:15 Dose: 0.04 units/min, 2.4 mls/hr Dexmedetomidine HCl 200 mcg/ (Sodium Chloride) 50 mls @ 3.63 mls/hr IV TITR PRN; Protocol PRN Reason: Sedation Last Titration: 07/28/18 08:33 Dose: 0.09 mcg/kg/hr, 1.8 mls/hr Metronidazole (Flagyl) 500 mg in 100 mls @ 100 mls/hr IVPB Q8H KACY; Protocol Last Admin: 07/28/18 10:04 Dose: 100 mls/hr Sodium Bicarbonate 150 meq/ (Sodium Chloride) 1,150 mls @ 150 mls/hr IV .Q7H40M KACY Last Admin: 07/28/18 10:43 Dose: 150 mls/hr Vancomycin HCl (Vancocin 750mg/Ns 150 Ml) 150 mls @ 100 mls/hr IVPB Q24H KACY; Protocol Last Admin: 07/28/18 11:48 Dose: 100 mls/hr Piperacillin Sod/Tazobactam (Sod 2.25 gm/ Sodium Chloride) 100 mls @ 200 mls/hr IVPB Q6H KACY; Protocol Last Admin: 07/28/18 10:44 Dose: 200 mls/hr Lorazepam (Ativan) 2 mg IVP Q4 PRN PRN Reason: Anxiety Methylprednisolone (Solu-Medrol) 40 mg IVP TID KACY Last Admin: 07/28/18 10:04 Dose: 40 mg Pantoprazole Sodium (Protonix Inj) 40 mg IVP Q12 KACY Last Admin: 07/28/18 10:04 Dose: 40 mg Results - Vital Signs Recent Vital Signs: Last Vital Signs Temp 100.6 F H 07/28/18 14:00 Pulse 104 H 07/28/18 14:00 Resp 30 H 07/28/18 14:00 BP 120/75 07/28/18 14:00 Pulse Ox 98 07/28/18 14:00 - Labs Result Diagrams: 07/28/18 10:31 07/28/18 10:31 Labs: Laboratory Results - last 24 hr 07/27/18 07/27/18 07/27/18 13:42 16:42 18:11 WBC RBC Hgb Hct MCV MCH MCHC RDW Plt Count MPV Neut % (Auto) Lymph % (Auto) [place] % (Auto) Eos % (Auto) Baso % (Auto) Neut # (Auto) Lymph # (Auto) [place] # (Auto) Eos # (Auto) Baso # (Auto) Neutrophils % (Manual) Band Neutrophils % Lymphocytes % (Manual) Monocytes % (Manual) Metamyelocytes % Platelet Estimate RBC Morphology Hypochromasia (manual) Poikilocytosis (manual Basophilic Stippling Anisocytosis (manual) PT > 320.0 H INR > 10.0 APTT > 400 H* Puncture Site pCO2 pO2 60 H HCO3 ABG pH ABG Total CO2 ABG O2 Saturation ABG Base Excess ABG Hemoglobin ABG Carboxyhemoglobin POC ABG HHb (Measured) ABG Methemoglobin Bryce Test VBG pH 7.20 L VBG pCO2 45 VBG HCO3 16.6 VBG Total CO2 19.0 L VBG O2 Sat (Calc) 93.2 H VBG Base Excess -10.2 L VBG Potassium 3.9 A-a O2 Difference Respiratory Index Hgb O2 Saturation Sodium 149.0 H Chloride 121.0 H Glucose 140 H Lactate 6.1 H* Vent Mode Mechanical Rate FiO2 Tidal Volume PEEP Crit Value Called To Narinder herron Crit Value Called By Rinku Crit Value Read Back Y Blood Gas Notified Time 181 Potassium Carbon Dioxide Anion Gap BUN Creatinine Est GFR ( Amer) Est GFR (Non-Af Amer) Random Glucose Lactic Acid Calcium Phosphorus Magnesium Total Bilirubin AST ALT Alkaline Phosphatase Total Protein Albumin Globulin Albumin/Globulin Ratio Procalcitonin Venous Blood Potassium 3.9 Stool Occult Blood Stool Leukocytes, Qual C. difficile Ag & Toxin Negative Blood Type Blood Type Confirm Antibody Screen 07/27/18 07/27/18 07/27/18 18:26 18:26 18:26 WBC 25.8 H RBC 3.44 L Hgb 8.6 L Hct 27.7 L MCV 80.4 L MCH 24.9 L MCHC 31.0 L RDW 13.3 Plt Count 160 MPV 8.7 Neut % (Auto) 94.7 H Lymph % (Auto) 3.1 L [place] % (Auto) 1.5 Eos % (Auto) 0.6 Baso % (Auto) 0.1 Neut # (Auto) 24.4 H Lymph # (Auto) 0.8 L [place] # (Auto) 0.4 Eos # (Auto) 0.2 Baso # (Auto) 0.0 Neutrophils % (Manual) 88 H Band Neutrophils % 9 H Lymphocytes % (Manual) 2 L Monocytes % (Manual) 1 Metamyelocytes % Platelet Estimate Normal RBC Morphology Normal Hypochromasia (manual) Poikilocytosis (manual Basophilic Stippling Anisocytosis (manual) PT INR APTT Puncture Site pCO2 pO2 HCO3 ABG pH ABG Total CO2 ABG O2 Saturation ABG Base Excess ABG Hemoglobin ABG Carboxyhemoglobin POC ABG HHb (Measured) ABG Methemoglobin Bryce Test VBG pH VBG pCO2 VBG HCO3 VBG Total CO2 VBG O2 Sat (Calc) VBG Base Excess VBG Potassium A-a O2 Difference Respiratory Index Hgb O2 Saturation Sodium 150 H Chloride 119 H Glucose Lactate Vent Mode Mechanical Rate FiO2 Tidal Volume PEEP Crit Value Called To Crit Value Called By Crit Value Read Back Blood Gas Notified Time Potassium 4.1 Carbon Dioxide 20 L Anion Gap 16 BUN 28 H Creatinine 2.0 H Est GFR ( Amer) 32 Est GFR (Non-Af Amer) 27 Random Glucose 137 H Lactic Acid Calcium 5.9 L* Phosphorus 6.4 H Magnesium 1.8 Total Bilirubin 0.5 AST 709 H ALT 318 H Alkaline Phosphatase 114 Total Protein 4.0 L Albumin 1.9 L Globulin 2.1 L Albumin/Globulin Ratio 0.9 L Procalcitonin Venous Blood Potassium Stool Occult Blood Stool Leukocytes, Qual Negative C. difficile Ag & Toxin Blood Type Blood Type Confirm Antibody Screen 07/27/18 07/27/18 07/27/18 18:26 18:26 19:40 WBC RBC Hgb Hct MCV MCH MCHC RDW Plt Count MPV Neut % (Auto) Lymph % (Auto) [place] % (Auto) Eos % (Auto) Baso % (Auto) Neut # (Auto) Lymph # (Auto) [place] # (Auto) Eos # (Auto) Baso # (Auto) Neutrophils % (Manual) Band Neutrophils % Lymphocytes % (Manual) Monocytes % (Manual) Metamyelocytes % Platelet Estimate RBC Morphology Hypochromasia (manual) Poikilocytosis (manual Basophilic Stippling Anisocytosis (manual) PT 27.4 H D INR 2.5 D APTT 41 H D Puncture Site pCO2 pO2 HCO3 ABG pH ABG Total CO2 ABG O2 Saturation ABG Base Excess ABG Hemoglobin ABG Carboxyhemoglobin POC ABG HHb (Measured) ABG Methemoglobin Bryce Test VBG pH VBG pCO2 VBG HCO3 VBG Total CO2 VBG O2 Sat (Calc) VBG Base Excess VBG Potassium A-a O2 Difference Respiratory Index Hgb O2 Saturation Sodium Chloride Glucose Lactate Vent Mode Mechanical Rate FiO2 Tidal Volume PEEP Crit Value Called To Crit Value Called By Crit Value Read Back Blood Gas Notified Time Potassium Carbon Dioxide Anion Gap BUN Creatinine Est GFR ( Amer) Est GFR (Non-Af Amer) Random Glucose Lactic Acid Calcium Phosphorus Magnesium Total Bilirubin AST ALT Alkaline Phosphatase Total Protein Albumin Globulin Albumin/Globulin Ratio Procalcitonin Venous Blood Potassium Stool Occult Blood Positive H Stool Leukocytes, Qual C. difficile Ag & Toxin Blood Type A POSITIVE Blood Type Confirm A POSITIVE Antibody Screen Negative 07/28/18 07/28/18 07/28/18 00:32 00:32 04:45 WBC 38.5 H* RBC 3.57 L Hgb 9.3 L Hct 30.0 L MCV 84.2 D MCH 26.0 L MCHC 30.9 L RDW 14.3 Plt Count 128 L D MPV 9.1 Neut % (Auto) 92.9 H Lymph % (Auto) 4.6 L [place] % (Auto) 1.9 Eos % (Auto) 0.6 Baso % (Auto) 0.0 Neut # (Auto) 35.8 H Lymph # (Auto) 1.8 [place] # (Auto) 0.7 Eos # (Auto) 0.2 Baso # (Auto) 0.0 Neutrophils % (Manual) 76 H Band Neutrophils % 20 H* Lymphocytes % (Manual) 2 L Monocytes % (Manual) 2 Metamyelocytes % Platelet Estimate Slightly decreased L RBC Morphology Hypochromasia (manual) Poikilocytosis (manual Slight Basophilic Stippling Anisocytosis (manual) Slight PT INR APTT > 400 H* D Puncture Site Lb pCO2 44 pO2 118 H HCO3 11.1 L ABG pH 7.04 L* ABG Total CO2 13.3 L ABG O2 Saturation 99.7 H ABG Base Excess -17.8 L ABG Hemoglobin 9.5 L ABG Carboxyhemoglobin 1.3 POC ABG HHb (Measured) 0.3 ABG Methemoglobin 0.7 Bryce Test Na VBG pH VBG pCO2 VBG HCO3 VBG Total CO2 VBG O2 Sat (Calc) VBG Base Excess VBG Potassium A-a O2 Difference 540.0 Respiratory Index 4.6 Hgb O2 Saturation 97.7 Sodium Chloride Glucose Lactate Vent Mode Prvc Mechanical Rate 24 FiO2 100.0 Tidal Volume 450 PEEP 2 Crit Value Called To Jeramy vasquez/rn Crit Value Called By Yusef schofield/rt Crit Value Read Back Y Blood Gas Notified Time 500 Potassium Carbon Dioxide Anion Gap BUN Creatinine Est GFR ( Amer) Est GFR (Non-Af Amer) Random Glucose Lactic Acid Calcium Phosphorus Magnesium Total Bilirubin AST ALT Alkaline Phosphatase Total Protein Albumin Globulin Albumin/Globulin Ratio Procalcitonin Venous Blood Potassium Stool Occult Blood Stool Leukocytes, Qual C. difficile Ag & Toxin Blood Type Blood Type Confirm Antibody Screen 07/28/18 07/28/18 07/28/18 05:30 05:30 05:30 WBC 39.7 H* RBC 3.66 L Hgb 9.6 L Hct 30.5 L MCV 83.5 MCH 26.3 L MCHC 31.5 L RDW 14.3 Plt Count 128 L MPV 9.5 Neut % (Auto) 90.2 H Lymph % (Auto) 7.1 L [place] % (Auto) 2.0 Eos % (Auto) 0.6 Baso % (Auto) 0.1 Neut # (Auto) 35.9 H Lymph # (Auto) 2.8 [place] # (Auto) 0.8 Eos # (Auto) 0.2 Baso # (Auto) 0.0 Neutrophils % (Manual) 65 Band Neutrophils % 23 H* Lymphocytes % (Manual) 9 L Monocytes % (Manual) 2 Metamyelocytes % 1 H Platelet Estimate Slightly decreased L RBC Morphology Hypochromasia (manual) Poikilocytosis (manual Slight Basophilic Stippling Anisocytosis (manual) Slight PT INR APTT Puncture Site pCO2 pO2 HCO3 ABG pH ABG Total CO2 ABG O2 Saturation ABG Base Excess ABG Hemoglobin ABG Carboxyhemoglobin POC ABG HHb (Measured) ABG Methemoglobin Bryce Test VBG pH VBG pCO2 VBG HCO3 VBG Total CO2 VBG O2 Sat (Calc) VBG Base Excess VBG Potassium A-a O2 Difference Respiratory Index Hgb O2 Saturation Sodium 153 H Chloride 120 H Glucose Lactate Vent Mode Mechanical Rate FiO2 Tidal Volume PEEP Crit Value Called To Crit Value Called By Crit Value Read Back Blood Gas Notified Time Potassium 4.4 Carbon Dioxide 14 L Anion Gap 23 H BUN 29 H Creatinine 2.8 H Est GFR ( Amer) 22 Est GFR (Non-Af Amer) 18 Random Glucose 148 H Lactic Acid 7.9 H* Calcium 6.0 L* Phosphorus 6.4 H Magnesium 1.5 L Total Bilirubin 0.8 AST 692 H ALT 338 H Alkaline Phosphatase 50 Total Protein 4.3 L Albumin 2.4 L D Globulin 1.9 L Albumin/Globulin Ratio 1.2 Procalcitonin Venous Blood Potassium Stool Occult Blood Stool Leukocytes, Qual C. difficile Ag & Toxin Blood Type Blood Type Confirm Antibody Screen 07/28/18 07/28/18 07/28/18 07:10 09:56 10:00 WBC RBC Hgb Hct MCV MCH MCHC RDW Plt Count MPV Neut % (Auto) Lymph % (Auto) [place] % (Auto) Eos % (Auto) Baso % (Auto) Neut # (Auto) Lymph # (Auto) [place] # (Auto) Eos # (Auto) Baso # (Auto) Neutrophils % (Manual) Band Neutrophils % Lymphocytes % (Manual) Monocytes % (Manual) Metamyelocytes % Platelet Estimate RBC Morphology Hypochromasia (manual) Poikilocytosis (manual Basophilic Stippling Anisocytosis (manual) PT 25.8 H INR 2.4 APTT > 400 H* 176 H* D Puncture Site pCO2 pO2 HCO3 ABG pH ABG Total CO2 ABG O2 Saturation ABG Base Excess ABG Hemoglobin ABG Carboxyhemoglobin POC ABG HHb (Measured) ABG Methemoglobin Bryce Test VBG pH VBG pCO2 VBG HCO3 VBG Total CO2 VBG O2 Sat (Calc) VBG Base Excess VBG Potassium A-a O2 Difference Respiratory Index Hgb O2 Saturation Sodium Chloride Glucose Lactate Vent Mode Mechanical Rate FiO2 Tidal Volume PEEP Crit Value Called To Crit Value Called By Crit Value Read Back Blood Gas Notified Time Potassium Carbon Dioxide Anion Gap BUN Creatinine Est GFR ( Amer) Est GFR (Non-Af Amer) Random Glucose Lactic Acid Calcium Phosphorus Magnesium Total Bilirubin AST ALT Alkaline Phosphatase Total Protein Albumin Globulin Albumin/Globulin Ratio Procalcitonin > 200.00 H Venous Blood Potassium Stool Occult Blood Stool Leukocytes, Qual C. difficile Ag & Toxin Blood Type Blood Type Confirm Antibody Screen 07/28/18 07/28/18 07/28/18 10:13 10:31 10:31 WBC 29.0 H RBC 3.31 L Hgb 8.6 L Hct 27.4 L MCV 82.7 MCH 26.0 L MCHC 31.4 L RDW 14.4 Plt Count 102 L D MPV 9.4 Neut % (Auto) 88.4 H Lymph % (Auto) 8.9 L [place] % (Auto) 2.2 Eos % (Auto) 0.4 Baso % (Auto) 0.1 Neut # (Auto) 25.7 H Lymph # (Auto) 2.6 [place] # (Auto) 0.6 Eos # (Auto) 0.1 Baso # (Auto) 0.0 Neutrophils % (Manual) 72 Band Neutrophils % 16 H* Lymphocytes % (Manual) 10 L Monocytes % (Manual) 1 Metamyelocytes % 1 H Platelet Estimate Slightly decreased L RBC Morphology Hypochromasia (manual) Slight Poikilocytosis (manual Basophilic Stippling Slight Anisocytosis (manual) PT INR APTT Puncture Site pCO2 pO2 18 L HCO3 ABG pH ABG Total CO2 ABG O2 Saturation ABG Base Excess ABG Hemoglobin ABG Carboxyhemoglobin POC ABG HHb (Measured) ABG Methemoglobin Bryce Test VBG pH 7.04 L* VBG pCO2 48 VBG HCO3 8.9 VBG Total CO2 14.5 L VBG O2 Sat (Calc) 31.5 L VBG Base Excess -17.5 L VBG Potassium 3.0 L A-a O2 Difference Respiratory Index Hgb O2 Saturation Sodium 151.0 H 153 H Chloride 127.0 H 119 H Glucose 119 H Lactate 6.1 H* Vent Mode Mechanical Rate FiO2 100.0 Tidal Volume PEEP 5 Crit Value Called To Dr kurtz Crit Value Called By Philip holliday medical lab director Crit Value Read Back Y Blood Gas Notified Time 1020 Potassium 4.3 Carbon Dioxide 18 L Anion Gap 21 H BUN 32 H Creatinine 3.2 H Est GFR ( Amer) 19 Est GFR (Non-Af Amer) 16 Random Glucose 144 H Lactic Acid Calcium 5.7 L* Phosphorus 5.8 H Magnesium 1.5 L Total Bilirubin 0.8 AST 995 H D ALT 442 H D Alkaline Phosphatase 38 D Total Protein 3.9 L Albumin 2.2 L Globulin 1.7 L Albumin/Globulin Ratio 1.3 Procalcitonin Venous Blood Potassium 3.0 L Stool Occult Blood Stool Leukocytes, Qual C. difficile Ag & Toxin Blood Type Blood Type Confirm Antibody Screen 07/28/18 12:24 WBC RBC Hgb Hct MCV MCH MCHC RDW Plt Count MPV Neut % (Auto) Lymph % (Auto) [place] % (Auto) Eos % (Auto) Baso % (Auto) Neut # (Auto) Lymph # (Auto) [place] # (Auto) Eos # (Auto) Baso # (Auto) Neutrophils % (Manual) Band Neutrophils % Lymphocytes % (Manual) Monocytes % (Manual) Metamyelocytes % Platelet Estimate RBC Morphology Hypochromasia (manual) Poikilocytosis (manual Basophilic Stippling Anisocytosis (manual) PT INR APTT Puncture Site pCO2 pO2 38 HCO3 ABG pH ABG Total CO2 ABG O2 Saturation ABG Base Excess ABG Hemoglobin ABG Carboxyhemoglobin POC ABG HHb (Measured) ABG Methemoglobin Bryce Test VBG pH 7.25 L VBG pCO2 38 L VBG HCO3 16.2 VBG Total CO2 17.9 L VBG O2 Sat (Calc) 78.0 H VBG Base Excess -9.9 L VBG Potassium 3.2 L A-a O2 Difference Respiratory Index Hgb O2 Saturation Sodium 152.0 H Chloride 123.0 H Glucose 160 H Lactate 6.5 H* Vent Mode Mechanical Rate FiO2 100.0 Tidal Volume PEEP 5 Crit Value Called To Dr kurtz Crit Value Called By Daphne medical lab director Crit Value Read Back Y Blood Gas Notified Time 1230 Potassium Carbon Dioxide Anion Gap BUN Creatinine Est GFR ( Amer) Est GFR (Non-Af Amer) Random Glucose Lactic Acid Calcium Phosphorus Magnesium Total Bilirubin AST ALT Alkaline Phosphatase Total Protein Albumin Globulin Albumin/Globulin Ratio Procalcitonin Venous Blood Potassium 3.2 L Stool Occult Blood Stool Leukocytes, Qual C. difficile Ag & Toxin Blood Type Blood Type Confirm Antibody Screen
--- NOTE | 2018-07-28 14:29 | CP.CCUPN ---
<Corrie Chowdary L - Last Filed: 07/28/18 15:12> CCU Subjective - Physician Review Subjective (Free Text): Resident Critical Care Progress Note Patient examined at bedside. Patient is s/p intubation, sedated and paralyzed. Unable to provide history. Family is at bedside and expressed understanding about patient's current condition. Patient had an episode of bradycardia into the 50s, 2 amps of bicarb was given and vent settings were adjusted to tidal volume of 500 and rate of 30. Neosynephrine was resumed. Consent was obtained from family for placement of dialysis catheter. Critical Care Time Spent (in minutes): 35 CCU Objective - Vital Signs / Intake & Output Vital Signs (Last 4 hours): Vital Signs Temp Pulse Resp BP Pulse Ox 07/28/18 14:00 100.6 F H 100 H 30 H 120/75 98 07/28/18 13:45 104 H 30 H 130/64 98 07/28/18 13:30 96 H 30 H 140/74 95 07/28/18 13:20 102 H 30 H 140/74 98 07/28/18 13:15 95 H 30 H 127/67 96 07/28/18 13:05 95 H 30 H 127/67 96 07/28/18 13:00 94 H 30 H 139/65 96 07/28/18 12:49 95 H 30 H 07/28/18 12:45 93 H 30 H 134/50 L 98 07/28/18 12:30 93 H 30 H 146/65 99 07/28/18 12:15 102 H 30 H 138/63 100 07/28/18 12:00 100.6 F H 99 H 30 H 131/59 L 100 07/28/18 11:53 120/80 07/28/18 11:45 110 H 30 H 120/51 L 100 07/28/18 11:30 110 H 30 H 130/53 L 100 07/28/18 11:15 109 H 30 H 138/53 L 100 07/28/18 11:00 83 30 H 126/64 100 07/28/18 10:50 97 H 30 H 128/56 L 100 07/28/18 10:43 92 H 30 H 100 Intake and Output (Last 8hrs): Intake & Output 07/27/18 07/28/18 07/28/18 22:59 06:59 14:59 Intake Total 4662.0 4607.64 2449.86 Output Total 775 260 180 Balance 3887.0 4347.64 2269.86 Weight 190 lb 14.4 oz Intake: IV 631.5 1497.54 483.36 Intake, IV Amount 3715.5 2683.1 1966.5 LIJ TLC 1000 Left Distal Port IJ - Y- 41.5 41.4 25.2 Port Left Distal Port Internal 108.8 201.4 152.6 Jugular Left IJ TLC 650 1400 1200 Left Medial Port IJ Y- 262.6 515.9 412.5 Port Left Medial Port Internal 1000 Jugular Left Proximal Port IJ Y- 86.2 19.2 16.8 Port Left Proximal Port 420 435 150 Internal Jugular Right Antecubital 146.4 70.2 9.4 Blood Product 315 325 Red Blood Cells Cpd As1 0 325 Lr Unit [id number] Other 102 Red Blood Cells Cpd As1 52 Lr Unit [id number] Output: Urine 775 260 180 Urethral (Becerril) 775 260 180 Other: # Bowel Movements 1 1 - Physical Exam Physical Exam Limitations: Positive for: Altered Mental Status Head: Positive for: Normocephalic, Ecchymosis Pupils: Positive for: PERRL Extroacular Muscles: Positive for: EOMI Conjunctiva: Positive for: Normal Mouth: Positive for: Dry Pharnyx: Positive for: Other (ett in place) Neck: Positive for: Trachea Midline Respiratory/Chest: Positive for: Good Air Exchange, Decreased Breath Sounds Cardiovascular: Positive for: Regular Rate and Rhythm, Normal S1, S2, Tachycardic Abdomen: Positive for: Normal Bowel Sounds Skin: Positive for: Warm, Dry, Normal Color - Medications Active Medications: Active Medications Generic Name Dose Route Start Last Admin Trade Name Freq PRN Reason Stop Dose Admin Heparin Sodium/Sodium Chloride 25,000 units in 250 mls @ 12.247 mls/hr 07/27/18 07:09 07/28/18 07:45 Heparin 54197 Units/250ml 1/2 Normal Saline IV 0 units/kg/hr .[id number] PRN 0 mls/hr ADJUST RATE PER PROTOCOL Titration Protocol 16.875 UNITS/KG/HR Norepinephrine Bitartrate 4 mg 250 mls @ 15 mls/hr 07/27/18 07:39 07/28/18 11:53 / Sodium Chloride IV 20 mcg/min .[id number] PRN 75 mls/hr TITRATE PER MD ORDER Administration Protocol 4 MCG/MIN Cisatracurium Besylate 100 mg/ 250 mls @ 32.66 mls/hr 07/27/18 08:24 07/28/18 11:52 Dextrose IV 2 mcg/kg/min .[id number] PRN 21.77 mls/hr Agitation Titration Protocol 3 MCG/KG/MIN Phenylephrine HCl 30 mg/ 250 mls @ 10 mls/hr 07/27/18 09:40 07/28/18 11:55 Sodium Chloride IV 60 mcg/min .Q24H PRN 30 mls/hr TITRATE PER MD ORDER Titration Protocol 20 MCG/MIN Vasopressin 40 units/ Sodium 40 mls @ 1.2 mls/hr 07/27/18 11:00 07/27/18 23:15 Chloride IV 0.04 units/min .Q24H KACY 2.4 mls/hr Administration Protocol 0.02 UNITS/MIN Dexmedetomidine HCl 200 mcg/ 50 mls @ 3.63 mls/hr 07/27/18 16:08 07/28/18 08:33 Sodium Chloride IV 0.09 mcg/kg/hr TITR PRN 1.8 mls/hr Sedation Titration Protocol 0.2 MCG/KG/HR Metronidazole 500 mg in 100 mls @ 100 mls/hr 07/27/18 18:30 07/28/18 10:04 Flagyl IVPB 100 mls/hr Q8H KACY Administration Protocol Sodium Bicarbonate 150 meq/ 1,150 mls @ 150 mls/hr 07/28/18 10:00 07/28/18 10:43 Sodium Chloride IV 150 mls/hr .Q7H40M KACY Administration Vancomycin HCl 150 mls @ 100 mls/hr 07/28/18 12:00 07/28/18 11:48 Vancocin 750mg/Ns 150 Ml IVPB 100 mls/hr Q24H KACY Administration Protocol Piperacillin Sod/Tazobactam 100 mls @ 200 mls/hr 07/28/18 10:00 07/28/18 10:44 Sod 2.25 gm/ Sodium Chloride IVPB 200 mls/hr Q6H KACY Administration Protocol Lorazepam 2 mg 07/27/18 08:25 Ativan IVP Q4 PRN Anxiety Methylprednisolone 40 mg 07/27/18 10:00 07/28/18 10:04 Solu-Medrol IVP 40 mg TID KACY Administration Pantoprazole Sodium 40 mg 07/27/18 10:00 07/28/18 10:04 Protonix Inj IVP 40 mg Q12 KACY Administration - Patient Studies Lab Studies: Microbiology Studies 07/27/18 09:18 MRSA Culture (Admit) - Final Naris MRSA NOT DETECTED 07/27/18 10:29 Blood Culture - Preliminary Blood-Venous NO GROWTH AFTER 24 HOURS 07/27/18 10:04 Blood Culture - Preliminary Blood-Venous NO GROWTH AFTER 24 HOURS 07/27/18 05:31 Urine Culture - Final Urine,Catheterized No Growth (<1,000 CFU/ML) Lab Studies 07/28/18 07/28/18 07/28/18 Range/Units 12:24 10:31 10:31 WBC 29.0 H (4.8-10.8) K/uL RBC 3.31 L (3.80-5.20) Mil/uL Hgb 8.6 L (11.0-16.0) g/dL Hct 27.4 L (34.0-47.0) % MCV 82.7 (81.0-99.0) fL MCH 26.0 L (27.0-31.0) pg MCHC 31.4 L (33.0-37.0) g/dL RDW 14.4 (11.5-14.5) % Plt Count 102 L D (130-400) K/uL MPV 9.4 (7.2-11.7) fL Neut % (Auto) 88.4 H (50.0-75.0) % Lymph % (Auto) 8.9 L (20.0-40.0) % Schley % (Auto) 2.2 (0.0-10.0) % Eos % (Auto) 0.4 (0.0-4.0) % Baso % (Auto) 0.1 (0.0-2.0) % Neut # (Auto) 25.7 H (1.8-7.0) K/uL Lymph # (Auto) 2.6 (1.0-4.3) K/uL Schley # (Auto) 0.6 (0.0-0.8) K/uL Eos # (Auto) 0.1 (0.0-0.7) K/uL Baso # (Auto) 0.0 (0.0-0.2) K/uL Neutrophils % (Manual) 72 (50-75) % Band Neutrophils % 16 H* (0-2) % Lymphocytes % (Manual) 10 L (20-40) % Monocytes % (Manual) 1 (0-10) % Metamyelocytes % 1 H (0-0) % Platelet Estimate Slightly decreased L (NORMAL) RBC Morphology Hypochromasia (manual) Slight Poikilocytosis (manual Basophilic Stippling Slight Anisocytosis (manual) PT (9.7-12.2) SECONDS INR APTT (21-34) SECONDS Puncture Site pCO2 (35-45) mm/Hg pO2 38 (30-55) mm/Hg HCO3 (21-28) mmol/L ABG pH (7.35-7.45) ABG Total CO2 (22-28) mmol/L ABG O2 Saturation (95-98) % ABG Base Excess (-2.0-3.0) mmol/L ABG Hemoglobin (11.7-17.4) g/dL ABG Carboxyhemoglobin (0.5-1.5) % POC ABG HHb (Measured) (0.0-5.0) % ABG Methemoglobin (0.0-3.0) % Bryce Test VBG pH 7.25 L (7.32-7.43) VBG pCO2 38 L (40-60) mmHg VBG HCO3 16.2 mmol/L VBG Total CO2 17.9 L (22-28) mmol/L VBG O2 Sat (Calc) 78.0 H (40-65) % VBG Base Excess -9.9 L (0.0-2.0) mmol/L VBG Potassium 3.2 L (3.6-5.2) mmol/L A-a O2 Difference mm/Hg Respiratory Index Hgb O2 Saturation (95.0-98.0) % Sodium 152.0 H 153 H (132-148) mmol/l Chloride 123.0 H 119 H (98-107) mmol/L Glucose 160 H (65-105) mg/dl Lactate 6.5 H* (0.7-2.1) mmol/L Vent Mode Mechanical Rate FiO2 100.0 % Tidal Volume PEEP 5 Crit Value Called To Dr kurtz Crit Value Called By Daphne social media content manager Crit Value Read Back Y Blood Gas Notified Time 1230 Potassium 4.3 (3.6-5.2) mmol/L Carbon Dioxide 18 L (22-30) mmol/L Anion Gap 21 H (10-20) BUN 32 H (7-17) mg/dL Creatinine 3.2 H (0.7-1.2) mg/dL Est GFR ( Amer) 19 Est GFR (Non-Af Amer) 16 Random Glucose 144 H (65-105) mg/dL Lactic Acid (0.7-2.1) mmol/L Calcium 5.7 L* (8.6-10.4) mg/dl Phosphorus 5.8 H (2.5-4.5) mg/dL Magnesium 1.5 L (1.6-2.3) mg/dL Total Bilirubin 0.8 (0.2-1.3) mg/dL AST 995 H D (14-36) U/L ALT 442 H D (9-52) U/L Alkaline Phosphatase 38 D (38-126) U/L Total Protein 3.9 L (6.3-8.3) g/dL Albumin 2.2 L (3.5-5.0) g/dL Globulin 1.7 L (2.2-3.9) gm/dL Albumin/Globulin Ratio 1.3 (1.0-2.1) Procalcitonin (0.19-0.49) NG/ML Venous Blood Potassium 3.2 L (3.6-5.2) mmol/L Stool Occult Blood (NEGATIVE) Stool Leukocytes, Qual (NEGATIVE) C. difficile Ag & Toxin (NEGATIVE) Blood Type Blood Type Confirm Antibody Screen 07/28/18 07/28/18 07/28/18 Range/Units 10:13 10:00 09:56 WBC (4.8-10.8) K/uL RBC (3.80-5.20) Mil/uL Hgb (11.0-16.0) g/dL Hct (34.0-47.0) % MCV (81.0-99.0) fL MCH (27.0-31.0) pg MCHC (33.0-37.0) g/dL RDW (11.5-14.5) % Plt Count (130-400) K/uL MPV (7.2-11.7) fL Neut % (Auto) (50.0-75.0) % Lymph % (Auto) (20.0-40.0) % Schley % (Auto) (0.0-10.0) % Eos % (Auto) (0.0-4.0) % Baso % (Auto) (0.0-2.0) % Neut # (Auto) (1.8-7.0) K/uL Lymph # (Auto) (1.0-4.3) K/uL Schley # (Auto) (0.0-0.8) K/uL Eos # (Auto) (0.0-0.7) K/uL Baso # (Auto) (0.0-0.2) K/uL Neutrophils % (Manual) (50-75) % Band Neutrophils % (0-2) % Lymphocytes % (Manual) (20-40) % Monocytes % (Manual) (0-10) % Metamyelocytes % (0-0) % Platelet Estimate (NORMAL) RBC Morphology Hypochromasia (manual) Poikilocytosis (manual Basophilic Stippling Anisocytosis (manual) PT 25.8 H (9.7-12.2) SECONDS INR 2.4 APTT 176 H* D (21-34) SECONDS Puncture Site pCO2 (35-45) mm/Hg pO2 18 L (30-55) mm/Hg HCO3 (21-28) mmol/L ABG pH (7.35-7.45) ABG Total CO2 (22-28) mmol/L ABG O2 Saturation (95-98) % ABG Base Excess (-2.0-3.0) mmol/L ABG Hemoglobin (11.7-17.4) g/dL ABG Carboxyhemoglobin (0.5-1.5) % POC ABG HHb (Measured) (0.0-5.0) % ABG Methemoglobin (0.0-3.0) % Bryce Test VBG pH 7.04 L* (7.32-7.43) VBG pCO2 48 (40-60) mmHg VBG HCO3 8.9 mmol/L VBG Total CO2 14.5 L (22-28) mmol/L VBG O2 Sat (Calc) 31.5 L (40-65) % VBG Base Excess -17.5 L (0.0-2.0) mmol/L VBG Potassium 3.0 L (3.6-5.2) mmol/L A-a O2 Difference mm/Hg Respiratory Index Hgb O2 Saturation (95.0-98.0) % Sodium 151.0 H (132-148) mmol/l Chloride 127.0 H (98-107) mmol/L Glucose 119 H (65-105) mg/dl Lactate 6.1 H* (0.7-2.1) mmol/L Vent Mode Mechanical Rate FiO2 100.0 % Tidal Volume PEEP 5 Crit Value Called To Dr kurtz Crit Value Called By Philip holliday social media content manager Crit Value Read Back Y Blood Gas Notified Time 1020 Potassium (3.6-5.2) mmol/L Carbon Dioxide (22-30) mmol/L Anion Gap (10-20) BUN (7-17) mg/dL Creatinine (0.7-1.2) mg/dL Est GFR ( Amer) Est GFR (Non-Af Amer) Random Glucose (65-105) mg/dL Lactic Acid (0.7-2.1) mmol/L Calcium (8.6-10.4) mg/dl Phosphorus (2.5-4.5) mg/dL Magnesium (1.6-2.3) mg/dL Total Bilirubin (0.2-1.3) mg/dL AST (14-36) U/L ALT (9-52) U/L Alkaline Phosphatase (38-126) U/L Total Protein (6.3-8.3) g/dL Albumin (3.5-5.0) g/dL Globulin (2.2-3.9) gm/dL Albumin/Globulin Ratio (1.0-2.1) Procalcitonin > 200.00 H (0.19-0.49) NG/ML Venous Blood Potassium 3.0 L (3.6-5.2) mmol/L Stool Occult Blood (NEGATIVE) Stool Leukocytes, Qual (NEGATIVE) C. difficile Ag & Toxin (NEGATIVE) Blood Type Blood Type Confirm Antibody Screen 10/02/18 10/02/18 10/02/18 Range/Units 07:10 05:30 05:30 WBC (4.8-10.8) K/uL RBC (3.80-5.20) Mil/uL Hgb (11.0-16.0) g/dL Hct (34.0-47.0) % MCV (81.0-99.0) fL MCH (27.0-31.0) pg MCHC (33.0-37.0) g/dL RDW (11.5-14.5) % Plt Count (130-400) K/uL MPV (7.2-11.7) fL Neut % (Auto) (50.0-75.0) % Lymph % (Auto) (20.0-40.0) % Schley % (Auto) (0.0-10.0) % Eos % (Auto) (0.0-4.0) % Baso % (Auto) (0.0-2.0) % Neut # (Auto) (1.8-7.0) K/uL Lymph # (Auto) (1.0-4.3) K/uL Schley # (Auto) (0.0-0.8) K/uL Eos # (Auto) (0.0-0.7) K/uL Baso # (Auto) (0.0-0.2) K/uL Neutrophils % (Manual) (50-75) % Band Neutrophils % (0-2) % Lymphocytes % (Manual) (20-40) % Monocytes % (Manual) (0-10) % Metamyelocytes % (0-0) % Platelet Estimate (NORMAL) RBC Morphology Hypochromasia (manual) Poikilocytosis (manual Basophilic Stippling Anisocytosis (manual) PT (9.7-12.2) SECONDS INR APTT > 400 H* (21-34) SECONDS Puncture Site pCO2 (35-45) mm/Hg pO2 (30-55) mm/Hg HCO3 (21-28) mmol/L ABG pH (7.35-7.45) ABG Total CO2 (22-28) mmol/L ABG O2 Saturation (95-98) % ABG Base Excess (-2.0-3.0) mmol/L ABG Hemoglobin (11.7-17.4) g/dL ABG Carboxyhemoglobin (0.5-1.5) % POC ABG HHb (Measured) (0.0-5.0) % ABG Methemoglobin (0.0-3.0) % Bryce Test VBG pH (7.32-7.43) VBG pCO2 (40-60) mmHg VBG HCO3 mmol/L VBG Total CO2 (22-28) mmol/L VBG O2 Sat (Calc) (40-65) % VBG Base Excess (0.0-2.0) mmol/L VBG Potassium (3.6-5.2) mmol/L A-a O2 Difference mm/Hg Respiratory Index Hgb O2 Saturation (95.0-98.0) % Sodium 153 H (132-148) mmol/l Chloride 120 H (98-107) mmol/L Glucose (65-105) mg/dl Lactate (0.7-2.1) mmol/L Vent Mode Mechanical Rate FiO2 % Tidal Volume PEEP Crit Value Called To Crit Value Called By Crit Value Read Back Blood Gas Notified Time Potassium 4.4 (3.6-5.2) mmol/L Carbon Dioxide 14 L (22-30) mmol/L Anion Gap 23 H (10-20) BUN 29 H (7-17) mg/dL Creatinine 2.8 H (0.7-1.2) mg/dL Est GFR ( Amer) 22 Est GFR (Non-Af Amer) 18 Random Glucose 148 H (65-105) mg/dL Lactic Acid 7.9 H* (0.7-2.1) mmol/L Calcium 6.0 L* (8.6-10.4) mg/dl Phosphorus 6.4 H (2.5-4.5) mg/dL Magnesium 1.5 L (1.6-2.3) mg/dL Total Bilirubin 0.8 (0.2-1.3) mg/dL AST 692 H (14-36) U/L ALT 338 H (9-52) U/L Alkaline Phosphatase 50 (38-126) U/L Total Protein 4.3 L (6.3-8.3) g/dL Albumin 2.4 L D (3.5-5.0) g/dL Globulin 1.9 L (2.2-3.9) gm/dL Albumin/Globulin Ratio 1.2 (1.0-2.1) Procalcitonin (0.19-0.49) NG/ML Venous Blood Potassium (3.6-5.2) mmol/L Stool Occult Blood (NEGATIVE) Stool Leukocytes, Qual (NEGATIVE) C. difficile Ag & Toxin (NEGATIVE) Blood Type Blood Type Confirm Antibody Screen 07/28/18 07/28/18 07/28/18 Range/Units 05:30 04:45 00:32 WBC 39.7 H* (4.8-10.8) K/uL RBC 3.66 L (3.80-5.20) Mil/uL Hgb 9.6 L (11.0-16.0) g/dL Hct 30.5 L (34.0-47.0) % MCV 83.5 (81.0-99.0) fL MCH 26.3 L (27.0-31.0) pg MCHC 31.5 L (33.0-37.0) g/dL RDW 14.3 (11.5-14.5) % Plt Count 128 L (130-400) K/uL MPV 9.5 (7.2-11.7) fL Neut % (Auto) 90.2 H (50.0-75.0) % Lymph % (Auto) 7.1 L (20.0-40.0) % Schley % (Auto) 2.0 (0.0-10.0) % Eos % (Auto) 0.6 (0.0-4.0) % Baso % (Auto) 0.1 (0.0-2.0) % Neut # (Auto) 35.9 H (1.8-7.0) K/uL Lymph # (Auto) 2.8 (1.0-4.3) K/uL Schley # (Auto) 0.8 (0.0-0.8) K/uL Eos # (Auto) 0.2 (0.0-0.7) K/uL Baso # (Auto) 0.0 (0.0-0.2) K/uL Neutrophils % (Manual) 65 (50-75) % Band Neutrophils % 23 H* (0-2) % Lymphocytes % (Manual) 9 L (20-40) % Monocytes % (Manual) 2 (0-10) % Metamyelocytes % 1 H (0-0) % Platelet Estimate Slightly decreased L (NORMAL) RBC Morphology Hypochromasia (manual) Poikilocytosis (manual Slight Basophilic Stippling Anisocytosis (manual) Slight PT (9.7-12.2) SECONDS INR APTT > 400 H* D (21-34) SECONDS Puncture Site Lb pCO2 44 (35-45) mm/Hg pO2 118 H (30-55) mm/Hg HCO3 11.1 L (21-28) mmol/L ABG pH 7.04 L* (7.35-7.45) ABG Total CO2 13.3 L (22-28) mmol/L ABG O2 Saturation 99.7 H (95-98) % ABG Base Excess -17.8 L (-2.0-3.0) mmol/L ABG Hemoglobin 9.5 L (11.7-17.4) g/dL ABG Carboxyhemoglobin 1.3 (0.5-1.5) % POC ABG HHb (Measured) 0.3 (0.0-5.0) % ABG Methemoglobin 0.7 (0.0-3.0) % Bryce Test Na VBG pH (7.32-7.43) VBG pCO2 (40-60) mmHg VBG HCO3 mmol/L VBG Total CO2 (22-28) mmol/L VBG O2 Sat (Calc) (40-65) % VBG Base Excess (0.0-2.0) mmol/L VBG Potassium (3.6-5.2) mmol/L A-a O2 Difference 540.0 mm/Hg Respiratory Index 4.6 Hgb O2 Saturation 97.7 (95.0-98.0) % Sodium (132-148) mmol/l Chloride (98-107) mmol/L Glucose (65-105) mg/dl Lactate (0.7-2.1) mmol/L Vent Mode Prvc Mechanical Rate 24 FiO2 100.0 % Tidal Volume 450 PEEP 2 Crit Value Called To Jeramy vasquez/rn Crit Value Called By Yusef schofield/rt Crit Value Read Back Y Blood Gas Notified Time 500 Potassium (3.6-5.2) mmol/L Carbon Dioxide (22-30) mmol/L Anion Gap (10-20) BUN (7-17) mg/dL Creatinine (0.7-1.2) mg/dL Est GFR ( Amer) Est GFR (Non-Af Amer) Random Glucose (65-105) mg/dL Lactic Acid (0.7-2.1) mmol/L Calcium (8.6-10.4) mg/dl Phosphorus (2.5-4.5) mg/dL Magnesium (1.6-2.3) mg/dL Total Bilirubin (0.2-1.3) mg/dL AST (14-36) U/L ALT (9-52) U/L Alkaline Phosphatase (38-126) U/L Total Protein (6.3-8.3) g/dL Albumin (3.5-5.0) g/dL Globulin (2.2-3.9) gm/dL Albumin/Globulin Ratio (1.0-2.1) Procalcitonin (0.19-0.49) NG/ML Venous Blood Potassium (3.6-5.2) mmol/L Stool Occult Blood (NEGATIVE) Stool Leukocytes, Qual (NEGATIVE) C. difficile Ag & Toxin (NEGATIVE) Blood Type Blood Type Confirm Antibody Screen 07/28/18 07/27/18 07/27/18 Range/Units 00:32 19:40 18:26 WBC 38.5 H* (4.8-10.8) K/uL RBC 3.57 L (3.80-5.20) Mil/uL Hgb 9.3 L (11.0-16.0) g/dL Hct 30.0 L (34.0-47.0) % MCV 84.2 D (81.0-99.0) fL MCH 26.0 L (27.0-31.0) pg MCHC 30.9 L (33.0-37.0) g/dL RDW 14.3 (11.5-14.5) % Plt Count 128 L D (130-400) K/uL MPV 9.1 (7.2-11.7) fL Neut % (Auto) 92.9 H (50.0-75.0) % Lymph % (Auto) 4.6 L (20.0-40.0) % Schley % (Auto) 1.9 (0.0-10.0) % Eos % (Auto) 0.6 (0.0-4.0) % Baso % (Auto) 0.0 (0.0-2.0) % Neut # (Auto) 35.8 H (1.8-7.0) K/uL Lymph # (Auto) 1.8 (1.0-4.3) K/uL Schley # (Auto) 0.7 (0.0-0.8) K/uL Eos # (Auto) 0.2 (0.0-0.7) K/uL Baso # (Auto) 0.0 (0.0-0.2) K/uL Neutrophils % (Manual) 76 H (50-75) % Band Neutrophils % 20 H* (0-2) % Lymphocytes % (Manual) 2 L (20-40) % Monocytes % (Manual) 2 (0-10) % Metamyelocytes % (0-0) % Platelet Estimate Slightly decreased L (NORMAL) RBC Morphology Hypochromasia (manual) Poikilocytosis (manual Slight Basophilic Stippling Anisocytosis (manual) Slight PT 27.4 H D (9.7-12.2) SECONDS INR 2.5 D APTT 41 H D (21-34) SECONDS Puncture Site pCO2 (35-45) mm/Hg pO2 (30-55) mm/Hg HCO3 (21-28) mmol/L ABG pH (7.35-7.45) ABG Total CO2 (22-28) mmol/L ABG O2 Saturation (95-98) % ABG Base Excess (-2.0-3.0) mmol/L ABG Hemoglobin (11.7-17.4) g/dL ABG Carboxyhemoglobin (0.5-1.5) % POC ABG HHb (Measured) (0.0-5.0) % ABG Methemoglobin (0.0-3.0) % Bryce Test VBG pH (7.32-7.43) VBG pCO2 (40-60) mmHg VBG HCO3 mmol/L VBG Total CO2 (22-28) mmol/L VBG O2 Sat (Calc) (40-65) % VBG Base Excess (0.0-2.0) mmol/L VBG Potassium (3.6-5.2) mmol/L A-a O2 Difference mm/Hg Respiratory Index Hgb O2 Saturation (95.0-98.0) % Sodium (132-148) mmol/l Chloride (98-107) mmol/L Glucose (65-105) mg/dl Lactate (0.7-2.1) mmol/L Vent Mode Mechanical Rate FiO2 % Tidal Volume PEEP Crit Value Called To Crit Value Called By Crit Value Read Back Blood Gas Notified Time Potassium (3.6-5.2) mmol/L Carbon Dioxide (22-30) mmol/L Anion Gap (10-20) BUN (7-17) mg/dL Creatinine (0.7-1.2) mg/dL Est GFR ( Amer) Est GFR (Non-Af Amer) Random Glucose (65-105) mg/dL Lactic Acid (0.7-2.1) mmol/L Calcium (8.6-10.4) mg/dl Phosphorus (2.5-4.5) mg/dL Magnesium (1.6-2.3) mg/dL Total Bilirubin (0.2-1.3) mg/dL AST (14-36) U/L ALT (9-52) U/L Alkaline Phosphatase (38-126) U/L Total Protein (6.3-8.3) g/dL Albumin (3.5-5.0) g/dL Globulin (2.2-3.9) gm/dL Albumin/Globulin Ratio (1.0-2.1) Procalcitonin (0.19-0.49) NG/ML Venous Blood Potassium (3.6-5.2) mmol/L Stool Occult Blood (NEGATIVE) Stool Leukocytes, Qual (NEGATIVE) C. difficile Ag & Toxin (NEGATIVE) Blood Type A POSITIVE Blood Type Confirm A POSITIVE Antibody Screen Negative 07/27/18 07/27/18 07/27/18 Range/Units 18:26 18:26 18:26 WBC (4.8-10.8) K/uL RBC (3.80-5.20) Mil/uL Hgb (11.0-16.0) g/dL Hct (34.0-47.0) % MCV (81.0-99.0) fL MCH (27.0-31.0) pg MCHC (33.0-37.0) g/dL RDW (11.5-14.5) % Plt Count (130-400) K/uL MPV (7.2-11.7) fL Neut % (Auto) (50.0-75.0) % Lymph % (Auto) (20.0-40.0) % Schley % (Auto) (0.0-10.0) % Eos % (Auto) (0.0-4.0) % Baso % (Auto) (0.0-2.0) % Neut # (Auto) (1.8-7.0) K/uL Lymph # (Auto) (1.0-4.3) K/uL Schley # (Auto) (0.0-0.8) K/uL Eos # (Auto) (0.0-0.7) K/uL Baso # (Auto) (0.0-0.2) K/uL Neutrophils % (Manual) (50-75) % Band Neutrophils % (0-2) % Lymphocytes % (Manual) (20-40) % Monocytes % (Manual) (0-10) % Metamyelocytes % (0-0) % Platelet Estimate (NORMAL) RBC Morphology Hypochromasia (manual) Poikilocytosis (manual Basophilic Stippling Anisocytosis (manual) PT (9.7-12.2) SECONDS INR APTT (21-34) SECONDS Puncture Site pCO2 (35-45) mm/Hg pO2 (30-55) mm/Hg HCO3 (21-28) mmol/L ABG pH (7.35-7.45) ABG Total CO2 (22-28) mmol/L ABG O2 Saturation (95-98) % ABG Base Excess (-2.0-3.0) mmol/L ABG Hemoglobin (11.7-17.4) g/dL ABG Carboxyhemoglobin (0.5-1.5) % POC ABG HHb (Measured) (0.0-5.0) % ABG Methemoglobin (0.0-3.0) % Bryce Test VBG pH (7.32-7.43) VBG pCO2 (40-60) mmHg VBG HCO3 mmol/L VBG Total CO2 (22-28) mmol/L VBG O2 Sat (Calc) (40-65) % VBG Base Excess (0.0-2.0) mmol/L VBG Potassium (3.6-5.2) mmol/L A-a O2 Difference mm/Hg Respiratory Index Hgb O2 Saturation (95.0-98.0) % Sodium 150 H (132-148) mmol/l Chloride 119 H (98-107) mmol/L Glucose (65-105) mg/dl Lactate (0.7-2.1) mmol/L Vent Mode Mechanical Rate FiO2 % Tidal Volume PEEP Crit Value Called To Crit Value Called By Crit Value Read Back Blood Gas Notified Time Potassium 4.1 (3.6-5.2) mmol/L Carbon Dioxide 20 L (22-30) mmol/L Anion Gap 16 (10-20) BUN 28 H (7-17) mg/dL Creatinine 2.0 H (0.7-1.2) mg/dL Est GFR ( Amer) 32 Est GFR (Non-Af Amer) 27 Random Glucose 137 H (65-105) mg/dL Lactic Acid (0.7-2.1) mmol/L Calcium 5.9 L* (8.6-10.4) mg/dl Phosphorus 6.4 H (2.5-4.5) mg/dL Magnesium 1.8 (1.6-2.3) mg/dL Total Bilirubin 0.5 (0.2-1.3) mg/dL AST 709 H (14-36) U/L ALT 318 H (9-52) U/L Alkaline Phosphatase 114 (38-126) U/L Total Protein 4.0 L (6.3-8.3) g/dL Albumin 1.9 L (3.5-5.0) g/dL Globulin 2.1 L (2.2-3.9) gm/dL Albumin/Globulin Ratio 0.9 L (1.0-2.1) Procalcitonin (0.19-0.49) NG/ML Venous Blood Potassium (3.6-5.2) mmol/L Stool Occult Blood Positive H (NEGATIVE) Stool Leukocytes, Qual Negative (NEGATIVE) C. difficile Ag & Toxin (NEGATIVE) Blood Type Blood Type Confirm Antibody Screen 07/27/18 07/27/18 07/27/18 Range/Units 18:26 18:11 16:42 WBC 25.8 H (4.8-10.8) K/uL RBC 3.44 L (3.80-5.20) Mil/uL Hgb 8.6 L (11.0-16.0) g/dL Hct 27.7 L (34.0-47.0) % MCV 80.4 L (81.0-99.0) fL MCH 24.9 L (27.0-31.0) pg MCHC 31.0 L (33.0-37.0) g/dL RDW 13.3 (11.5-14.5) % Plt Count 160 (130-400) K/uL MPV 8.7 (7.2-11.7) fL Neut % (Auto) 94.7 H (50.0-75.0) % Lymph % (Auto) 3.1 L (20.0-40.0) % Schley % (Auto) 1.5 (0.0-10.0) % Eos % (Auto) 0.6 (0.0-4.0) % Baso % (Auto) 0.1 (0.0-2.0) % Neut # (Auto) 24.4 H (1.8-7.0) K/uL Lymph # (Auto) 0.8 L (1.0-4.3) K/uL Schley # (Auto) 0.4 (0.0-0.8) K/uL Eos # (Auto) 0.2 (0.0-0.7) K/uL Baso # (Auto) 0.0 (0.0-0.2) K/uL Neutrophils % (Manual) 88 H (50-75) % Band Neutrophils % 9 H (0-2) % Lymphocytes % (Manual) 2 L (20-40) % Monocytes % (Manual) 1 (0-10) % Metamyelocytes % (0-0) % Platelet Estimate Normal (NORMAL) RBC Morphology Normal Hypochromasia (manual) Poikilocytosis (manual Basophilic Stippling Anisocytosis (manual) PT (9.7-12.2) SECONDS INR APTT (21-34) SECONDS Puncture Site pCO2 (35-45) mm/Hg pO2 60 H (30-55) mm/Hg HCO3 (21-28) mmol/L ABG pH (7.35-7.45) ABG Total CO2 (22-28) mmol/L ABG O2 Saturation (95-98) % ABG Base Excess (-2.0-3.0) mmol/L ABG Hemoglobin (11.7-17.4) g/dL ABG Carboxyhemoglobin (0.5-1.5) % POC ABG HHb (Measured) (0.0-5.0) % ABG Methemoglobin (0.0-3.0) % Bryce Test VBG pH 7.20 L (7.32-7.43) VBG pCO2 45 (40-60) mmHg VBG HCO3 16.6 mmol/L VBG Total CO2 19.0 L (22-28) mmol/L VBG O2 Sat (Calc) 93.2 H (40-65) % VBG Base Excess -10.2 L (0.0-2.0) mmol/L VBG Potassium 3.9 (3.6-5.2) mmol/L A-a O2 Difference mm/Hg Respiratory Index Hgb O2 Saturation (95.0-98.0) % Sodium 149.0 H (132-148) mmol/l Chloride 121.0 H (98-107) mmol/L Glucose 140 H (65-105) mg/dl Lactate 6.1 H* (0.7-2.1) mmol/L Vent Mode Mechanical Rate FiO2 % Tidal Volume PEEP Crit Value Called To Narinder herron Crit Value Called By Rinku Crit Value Read Back Y Blood Gas Notified Time 1814 Potassium (3.6-5.2) mmol/L Carbon Dioxide (22-30) mmol/L Anion Gap (10-20) BUN (7-17) mg/dL Creatinine (0.7-1.2) mg/dL Est GFR ( Amer) Est GFR (Non-Af Amer) Random Glucose (65-105) mg/dL Lactic Acid (0.7-2.1) mmol/L Calcium (8.6-10.4) mg/dl Phosphorus (2.5-4.5) mg/dL Magnesium (1.6-2.3) mg/dL Total Bilirubin (0.2-1.3) mg/dL AST (14-36) U/L ALT (9-52) U/L Alkaline Phosphatase (38-126) U/L Total Protein (6.3-8.3) g/dL Albumin (3.5-5.0) g/dL Globulin (2.2-3.9) gm/dL Albumin/Globulin Ratio (1.0-2.1) Procalcitonin (0.19-0.49) NG/ML Venous Blood Potassium 3.9 (3.6-5.2) mmol/L Stool Occult Blood (NEGATIVE) Stool Leukocytes, Qual (NEGATIVE) C. difficile Ag & Toxin Negative (NEGATIVE) Blood Type Blood Type Confirm Antibody Screen 07/27/18 Range/Units 13:42 WBC (4.8-10.8) K/uL RBC (3.80-5.20) Mil/uL Hgb (11.0-16.0) g/dL Hct (34.0-47.0) % MCV (81.0-99.0) fL MCH (27.0-31.0) pg MCHC (33.0-37.0) g/dL RDW (11.5-14.5) % Plt Count (130-400) K/uL MPV (7.2-11.7) fL Neut % (Auto) (50.0-75.0) % Lymph % (Auto) (20.0-40.0) % Schley % (Auto) (0.0-10.0) % Eos % (Auto) (0.0-4.0) % Baso % (Auto) (0.0-2.0) % Neut # (Auto) (1.8-7.0) K/uL Lymph # (Auto) (1.0-4.3) K/uL Schley # (Auto) (0.0-0.8) K/uL Eos # (Auto) (0.0-0.7) K/uL Baso # (Auto) (0.0-0.2) K/uL Neutrophils % (Manual) (50-75) % Band Neutrophils % (0-2) % Lymphocytes % (Manual) (20-40) % Monocytes % (Manual) (0-10) % Metamyelocytes % (0-0) % Platelet Estimate (NORMAL) RBC Morphology Hypochromasia (manual) Poikilocytosis (manual Basophilic Stippling Anisocytosis (manual) PT > 320.0 H (9.7-12.2) SECONDS INR > 10.0 APTT > 400 H* (21-34) SECONDS Puncture Site pCO2 (35-45) mm/Hg pO2 (30-55) mm/Hg HCO3 (21-28) mmol/L ABG pH (7.35-7.45) ABG Total CO2 (22-28) mmol/L ABG O2 Saturation (95-98) % ABG Base Excess (-2.0-3.0) mmol/L ABG Hemoglobin (11.7-17.4) g/dL ABG Carboxyhemoglobin (0.5-1.5) % POC ABG HHb (Measured) (0.0-5.0) % ABG Methemoglobin (0.0-3.0) % Bryce Test VBG pH (7.32-7.43) VBG pCO2 (40-60) mmHg VBG HCO3 mmol/L VBG Total CO2 (22-28) mmol/L VBG O2 Sat (Calc) (40-65) % VBG Base Excess (0.0-2.0) mmol/L VBG Potassium (3.6-5.2) mmol/L A-a O2 Difference mm/Hg Respiratory Index Hgb O2 Saturation (95.0-98.0) % Sodium (132-148) mmol/l Chloride (98-107) mmol/L Glucose (65-105) mg/dl Lactate (0.7-2.1) mmol/L Vent Mode Mechanical Rate FiO2 % Tidal Volume PEEP Crit Value Called To Crit Value Called By Crit Value Read Back Blood Gas Notified Time Potassium (3.6-5.2) mmol/L Carbon Dioxide (22-30) mmol/L Anion Gap (10-20) BUN (7-17) mg/dL Creatinine (0.7-1.2) mg/dL Est GFR ( Amer) Est GFR (Non-Af Amer) Random Glucose (65-105) mg/dL Lactic Acid (0.7-2.1) mmol/L Calcium (8.6-10.4) mg/dl Phosphorus (2.5-4.5) mg/dL Magnesium (1.6-2.3) mg/dL Total Bilirubin (0.2-1.3) mg/dL AST (14-36) U/L ALT (9-52) U/L Alkaline Phosphatase (38-126) U/L Total Protein (6.3-8.3) g/dL Albumin (3.5-5.0) g/dL Globulin (2.2-3.9) gm/dL Albumin/Globulin Ratio (1.0-2.1) Procalcitonin (0.19-0.49) NG/ML Venous Blood Potassium (3.6-5.2) mmol/L Stool Occult Blood (NEGATIVE) Stool Leukocytes, Qual (NEGATIVE) C. difficile Ag & Toxin (NEGATIVE) Blood Type Blood Type Confirm Antibody Screen Laboratory Results - last 24 hr 07/27/18 07/27/18 07/27/18 13:42 16:42 18:11 WBC RBC Hgb Hct MCV MCH MCHC RDW Plt Count MPV Neut % (Auto) Lymph % (Auto) Schley % (Auto) Eos % (Auto) Baso % (Auto) Neut # (Auto) Lymph # (Auto) Schley # (Auto) Eos # (Auto) Baso # (Auto) Neutrophils % (Manual) Band Neutrophils % Lymphocytes % (Manual) Monocytes % (Manual) Metamyelocytes % Platelet Estimate RBC Morphology Hypochromasia (manual) Poikilocytosis (manual Basophilic Stippling Anisocytosis (manual) PT > 320.0 H INR > 10.0 APTT > 400 H* Puncture Site pCO2 pO2 60 H HCO3 ABG pH ABG Total CO2 ABG O2 Saturation ABG Base Excess ABG Hemoglobin ABG Carboxyhemoglobin POC ABG HHb (Measured) ABG Methemoglobin Bryce Test VBG pH 7.20 L VBG pCO2 45 VBG HCO3 16.6 VBG Total CO2 19.0 L VBG O2 Sat (Calc) 93.2 H VBG Base Excess -10.2 L VBG Potassium 3.9 A-a O2 Difference Respiratory Index Hgb O2 Saturation Sodium 149.0 H Chloride 121.0 H Glucose 140 H Lactate 6.1 H* Vent Mode Mechanical Rate FiO2 Tidal Volume PEEP Crit Value Called To Narinder herron Crit Value Called By Rinku Crit Value Read Back Y Blood Gas Notified Time 1814 Potassium Carbon Dioxide Anion Gap BUN Creatinine Est GFR ( Amer) Est GFR (Non-Af Amer) Random Glucose Lactic Acid Calcium Phosphorus Magnesium Total Bilirubin AST ALT Alkaline Phosphatase Total Protein Albumin Globulin Albumin/Globulin Ratio Procalcitonin Venous Blood Potassium 3.9 Stool Occult Blood Stool Leukocytes, Qual C. difficile Ag & Toxin Negative Blood Type Blood Type Confirm Antibody Screen 07/27/18 07/27/18 07/27/18 18:26 18:26 18:26 WBC 25.8 H RBC 3.44 L Hgb 8.6 L Hct 27.7 L MCV 80.4 L MCH 24.9 L MCHC 31.0 L RDW 13.3 Plt Count 160 MPV 8.7 Neut % (Auto) 94.7 H Lymph % (Auto) 3.1 L Schley % (Auto) 1.5 Eos % (Auto) 0.6 Baso % (Auto) 0.1 Neut # (Auto) 24.4 H Lymph # (Auto) 0.8 L Schley # (Auto) 0.4 Eos # (Auto) 0.2 Baso # (Auto) 0.0 Neutrophils % (Manual) 88 H Band Neutrophils % 9 H Lymphocytes % (Manual) 2 L Monocytes % (Manual) 1 Metamyelocytes % Platelet Estimate Normal RBC Morphology Normal Hypochromasia (manual) Poikilocytosis (manual Basophilic Stippling Anisocytosis (manual) PT INR APTT Puncture Site pCO2 pO2 HCO3 ABG pH ABG Total CO2 ABG O2 Saturation ABG Base Excess ABG Hemoglobin ABG Carboxyhemoglobin POC ABG HHb (Measured) ABG Methemoglobin Bryce Test VBG pH VBG pCO2 VBG HCO3 VBG Total CO2 VBG O2 Sat (Calc) VBG Base Excess VBG Potassium A-a O2 Difference Respiratory Index Hgb O2 Saturation Sodium 150 H Chloride 119 H Glucose Lactate Vent Mode Mechanical Rate FiO2 Tidal Volume PEEP Crit Value Called To Crit Value Called By Crit Value Read Back Blood Gas Notified Time Potassium 4.1 Carbon Dioxide 20 L Anion Gap 16 BUN 28 H Creatinine 2.0 H Est GFR ( Amer) 32 Est GFR (Non-Af Amer) 27 Random Glucose 137 H Lactic Acid Calcium 5.9 L* Phosphorus 6.4 H Magnesium 1.8 Total Bilirubin 0.5 AST 709 H ALT 318 H Alkaline Phosphatase 114 Total Protein 4.0 L Albumin 1.9 L Globulin 2.1 L Albumin/Globulin Ratio 0.9 L Procalcitonin Venous Blood Potassium Stool Occult Blood Stool Leukocytes, Qual Negative C. difficile Ag & Toxin Blood Type Blood Type Confirm Antibody Screen 07/27/18 07/27/18 07/27/18 18:26 18:26 19:40 WBC RBC Hgb Hct MCV MCH MCHC RDW Plt Count MPV Neut % (Auto) Lymph % (Auto) Schley % (Auto) Eos % (Auto) Baso % (Auto) Neut # (Auto) Lymph # (Auto) Schley # (Auto) Eos # (Auto) Baso # (Auto) Neutrophils % (Manual) Band Neutrophils % Lymphocytes % (Manual) Monocytes % (Manual) Metamyelocytes % Platelet Estimate RBC Morphology Hypochromasia (manual) Poikilocytosis (manual Basophilic Stippling Anisocytosis (manual) PT 27.4 H D INR 2.5 D APTT 41 H D Puncture Site pCO2 pO2 HCO3 ABG pH ABG Total CO2 ABG O2 Saturation ABG Base Excess ABG Hemoglobin ABG Carboxyhemoglobin POC ABG HHb (Measured) ABG Methemoglobin Bryce Test VBG pH VBG pCO2 VBG HCO3 VBG Total CO2 VBG O2 Sat (Calc) VBG Base Excess VBG Potassium A-a O2 Difference Respiratory Index Hgb O2 Saturation Sodium Chloride Glucose Lactate Vent Mode Mechanical Rate FiO2 Tidal Volume PEEP Crit Value Called To Crit Value Called By Crit Value Read Back Blood Gas Notified Time Potassium Carbon Dioxide Anion Gap BUN Creatinine Est GFR ( Amer) Est GFR (Non-Af Amer) Random Glucose Lactic Acid Calcium Phosphorus Magnesium Total Bilirubin AST ALT Alkaline Phosphatase Total Protein Albumin Globulin Albumin/Globulin Ratio Procalcitonin Venous Blood Potassium Stool Occult Blood Positive H Stool Leukocytes, Qual C. difficile Ag & Toxin Blood Type A POSITIVE Blood Type Confirm A POSITIVE Antibody Screen Negative 07/28/18 07/28/18 07/28/18 00:32 00:32 04:45 WBC 38.5 H* RBC 3.57 L Hgb 9.3 L Hct 30.0 L MCV 84.2 D MCH 26.0 L MCHC 30.9 L RDW 14.3 Plt Count 128 L D MPV 9.1 Neut % (Auto) 92.9 H Lymph % (Auto) 4.6 L Schley % (Auto) 1.9 Eos % (Auto) 0.6 Baso % (Auto) 0.0 Neut # (Auto) 35.8 H Lymph # (Auto) 1.8 Schley # (Auto) 0.7 Eos # (Auto) 0.2 Baso # (Auto) 0.0 Neutrophils % (Manual) 76 H Band Neutrophils % 20 H* Lymphocytes % (Manual) 2 L Monocytes % (Manual) 2 Metamyelocytes % Platelet Estimate Slightly decreased L RBC Morphology Hypochromasia (manual) Poikilocytosis (manual Slight Basophilic Stippling Anisocytosis (manual) Slight PT INR APTT > 400 H* D Puncture Site Lb pCO2 44 pO2 118 H HCO3 11.1 L ABG pH 7.04 L* ABG Total CO2 13.3 L ABG O2 Saturation 99.7 H ABG Base Excess -17.8 L ABG Hemoglobin 9.5 L ABG Carboxyhemoglobin 1.3 POC ABG HHb (Measured) 0.3 ABG Methemoglobin 0.7 Bryce Test Na VBG pH VBG pCO2 VBG HCO3 VBG Total CO2 VBG O2 Sat (Calc) VBG Base Excess VBG Potassium A-a O2 Difference 540.0 Respiratory Index 4.6 Hgb O2 Saturation 97.7 Sodium Chloride Glucose Lactate Vent Mode Prvc Mechanical Rate 24 FiO2 100.0 Tidal Volume 450 PEEP 2 Crit Value Called To Jeramy vasquez/rn Crit Value Called By Yusef schofield/rt Crit Value Read Back Y Blood Gas Notified Time 500 Potassium Carbon Dioxide Anion Gap BUN Creatinine Est GFR ( Amer) Est GFR (Non-Af Amer) Random Glucose Lactic Acid Calcium Phosphorus Magnesium Total Bilirubin AST ALT Alkaline Phosphatase Total Protein Albumin Globulin Albumin/Globulin Ratio Procalcitonin Venous Blood Potassium Stool Occult Blood Stool Leukocytes, Qual C. difficile Ag & Toxin Blood Type Blood Type Confirm Antibody Screen 07/28/18 07/28/18 07/28/18 05:30 05:30 05:30 WBC 39.7 H* RBC 3.66 L Hgb 9.6 L Hct 30.5 L MCV 83.5 MCH 26.3 L MCHC 31.5 L RDW 14.3 Plt Count 128 L MPV 9.5 Neut % (Auto) 90.2 H Lymph % (Auto) 7.1 L Schley % (Auto) 2.0 Eos % (Auto) 0.6 Baso % (Auto) 0.1 Neut # (Auto) 35.9 H Lymph # (Auto) 2.8 Schley # (Auto) 0.8 Eos # (Auto) 0.2 Baso # (Auto) 0.0 Neutrophils % (Manual) 65 Band Neutrophils % 23 H* Lymphocytes % (Manual) 9 L Monocytes % (Manual) 2 Metamyelocytes % 1 H Platelet Estimate Slightly decreased L RBC Morphology Hypochromasia (manual) Poikilocytosis (manual Slight Basophilic Stippling Anisocytosis (manual) Slight PT INR APTT Puncture Site pCO2 pO2 HCO3 ABG pH ABG Total CO2 ABG O2 Saturation ABG Base Excess ABG Hemoglobin ABG Carboxyhemoglobin POC ABG HHb (Measured) ABG Methemoglobin Bryce Test VBG pH VBG pCO2 VBG HCO3 VBG Total CO2 VBG O2 Sat (Calc) VBG Base Excess VBG Potassium A-a O2 Difference Respiratory Index Hgb O2 Saturation Sodium 153 H Chloride 120 H Glucose Lactate Vent Mode Mechanical Rate FiO2 Tidal Volume PEEP Crit Value Called To Crit Value Called By Crit Value Read Back Blood Gas Notified Time Potassium 4.4 Carbon Dioxide 14 L Anion Gap 23 H BUN 29 H Creatinine 2.8 H Est GFR ( Amer) 22 Est GFR (Non-Af Amer) 18 Random Glucose 148 H Lactic Acid 7.9 H* Calcium 6.0 L* Phosphorus 6.4 H Magnesium 1.5 L Total Bilirubin 0.8 AST 692 H ALT 338 H Alkaline Phosphatase 50 Total Protein 4.3 L Albumin 2.4 L D Globulin 1.9 L Albumin/Globulin Ratio 1.2 Procalcitonin Venous Blood Potassium Stool Occult Blood Stool Leukocytes, Qual C. difficile Ag & Toxin Blood Type Blood Type Confirm Antibody Screen 07/28/18 07/28/18 07/28/18 07:10 09:56 10:00 WBC RBC Hgb Hct MCV MCH MCHC RDW Plt Count MPV Neut % (Auto) Lymph % (Auto) Schley % (Auto) Eos % (Auto) Baso % (Auto) Neut # (Auto) Lymph # (Auto) Schley # (Auto) Eos # (Auto) Baso # (Auto) Neutrophils % (Manual) Band Neutrophils % Lymphocytes % (Manual) Monocytes % (Manual) Metamyelocytes % Platelet Estimate RBC Morphology Hypochromasia (manual) Poikilocytosis (manual Basophilic Stippling Anisocytosis (manual) PT 25.8 H INR 2.4 APTT > 400 H* 176 H* D Puncture Site pCO2 pO2 HCO3 ABG pH ABG Total CO2 ABG O2 Saturation ABG Base Excess ABG Hemoglobin ABG Carboxyhemoglobin POC ABG HHb (Measured) ABG Methemoglobin Bryce Test VBG pH VBG pCO2 VBG HCO3 VBG Total CO2 VBG O2 Sat (Calc) VBG Base Excess VBG Potassium A-a O2 Difference Respiratory Index Hgb O2 Saturation Sodium Chloride Glucose Lactate Vent Mode Mechanical Rate FiO2 Tidal Volume PEEP Crit Value Called To Crit Value Called By Crit Value Read Back Blood Gas Notified Time Potassium Carbon Dioxide Anion Gap BUN Creatinine Est GFR ( Amer) Est GFR (Non-Af Amer) Random Glucose Lactic Acid Calcium Phosphorus Magnesium Total Bilirubin AST ALT Alkaline Phosphatase Total Protein Albumin Globulin Albumin/Globulin Ratio Procalcitonin > 200.00 H Venous Blood Potassium Stool Occult Blood Stool Leukocytes, Qual C. difficile Ag & Toxin Blood Type Blood Type Confirm Antibody Screen 07/28/18 07/28/18 07/28/18 10:13 10:31 10:31 WBC 29.0 H RBC 3.31 L Hgb 8.6 L Hct 27.4 L MCV 82.7 MCH 26.0 L MCHC 31.4 L RDW 14.4 Plt Count 102 L D MPV 9.4 Neut % (Auto) 88.4 H Lymph % (Auto) 8.9 L Schley % (Auto) 2.2 Eos % (Auto) 0.4 Baso % (Auto) 0.1 Neut # (Auto) 25.7 H Lymph # (Auto) 2.6 Schley # (Auto) 0.6 Eos # (Auto) 0.1 Baso # (Auto) 0.0 Neutrophils % (Manual) 72 Band Neutrophils % 16 H* Lymphocytes % (Manual) 10 L Monocytes % (Manual) 1 Metamyelocytes % 1 H Platelet Estimate Slightly decreased L RBC Morphology Hypochromasia (manual) Slight Poikilocytosis (manual Basophilic Stippling Slight Anisocytosis (manual) PT INR APTT Puncture Site pCO2 pO2 18 L HCO3 ABG pH ABG Total CO2 ABG O2 Saturation ABG Base Excess ABG Hemoglobin ABG Carboxyhemoglobin POC ABG HHb (Measured) ABG Methemoglobin Bryce Test VBG pH 7.04 L* VBG pCO2 48 VBG HCO3 8.9 VBG Total CO2 14.5 L VBG O2 Sat (Calc) 31.5 L VBG Base Excess -17.5 L VBG Potassium 3.0 L A-a O2 Difference Respiratory Index Hgb O2 Saturation Sodium 151.0 H 153 H Chloride 127.0 H 119 H Glucose 119 H Lactate 6.1 H* Vent Mode Mechanical Rate FiO2 100.0 Tidal Volume PEEP 5 Crit Value Called To Dr kurtz Crit Value Called By Philip holliday social media content manager Crit Value Read Back Y Blood Gas Notified Time 1020 Potassium 4.3 Carbon Dioxide 18 L Anion Gap 21 H BUN 32 H Creatinine 3.2 H Est GFR ( Amer) 19 Est GFR (Non-Af Amer) 16 Random Glucose 144 H Lactic Acid Calcium 5.7 L* Phosphorus 5.8 H Magnesium 1.5 L Total Bilirubin 0.8 AST 995 H D ALT 442 H D Alkaline Phosphatase 38 D Total Protein 3.9 L Albumin 2.2 L Globulin 1.7 L Albumin/Globulin Ratio 1.3 Procalcitonin Venous Blood Potassium 3.0 L Stool Occult Blood Stool Leukocytes, Qual C. difficile Ag & Toxin Blood Type Blood Type Confirm Antibody Screen 07/28/18 12:24 WBC RBC Hgb Hct MCV MCH MCHC RDW Plt Count MPV Neut % (Auto) Lymph % (Auto) Schley % (Auto) Eos % (Auto) Baso % (Auto) Neut # (Auto) Lymph # (Auto) Schley # (Auto) Eos # (Auto) Baso # (Auto) Neutrophils % (Manual) Band Neutrophils % Lymphocytes % (Manual) Monocytes % (Manual) Metamyelocytes % Platelet Estimate RBC Morphology Hypochromasia (manual) Poikilocytosis (manual Basophilic Stippling Anisocytosis (manual) PT INR APTT Puncture Site pCO2 pO2 38 HCO3 ABG pH ABG Total CO2 ABG O2 Saturation ABG Base Excess ABG Hemoglobin ABG Carboxyhemoglobin POC ABG HHb (Measured) ABG Methemoglobin Bryce Test VBG pH 7.25 L VBG pCO2 38 L VBG HCO3 16.2 VBG Total CO2 17.9 L VBG O2 Sat (Calc) 78.0 H VBG Base Excess -9.9 L VBG Potassium 3.2 L A-a O2 Difference Respiratory Index Hgb O2 Saturation Sodium 152.0 H Chloride 123.0 H Glucose 160 H Lactate 6.5 H* Vent Mode Mechanical Rate FiO2 100.0 Tidal Volume PEEP 5 Crit Value Called To Dr kurtz Crit Value Called By Daphne social media content manager Crit Value Read Back Y Blood Gas Notified Time 1230 Potassium Carbon Dioxide Anion Gap BUN Creatinine Est GFR ( Amer) Est GFR (Non-Af Amer) Random Glucose Lactic Acid Calcium Phosphorus Magnesium Total Bilirubin AST ALT Alkaline Phosphatase Total Protein Albumin Globulin Albumin/Globulin Ratio Procalcitonin Venous Blood Potassium 3.2 L Stool Occult Blood Stool Leukocytes, Qual C. difficile Ag & Toxin Blood Type Blood Type Confirm Antibody Screen Fingerstick Blood Sugar Results: 288 Review of Systems - Review of Systems Systems not reviewed;Unavailable: Intubated Critical Care Progress Note - Vent Settings MODE:: PRVC TIDAL VOLUME:: 500 RESP RATE:: 30 FIO2:: 100 PEEP:: 5 - Prophylaxis GI Prophylaxis GI: PPI - Prophylaxis DVT Prophylaxis DVT: Not Indicated (pt on heparin drip) Assessment/Plan - Assessment and Plan (Free Text) Assessment: Patient is a 48 year old female with past medical history of anxiety presenting to ED with shortness of breath, syncope, and chest pain, went into cardiac arrest, now s/p intubation and found to have bilateral PE and septic shock. Plan: Neuro: - unresponsive - Head CT shows no acute intracranial abnormality, left forehead soft tissue swelling - Nimbex drip, precedex Pulm: - s/p intubation - CXR shows interval left basilar atelectasis favored over infiltrate with possible small pleural effusions, atelectasis medial right apex - maintain SPO2> 92 % - Duonebs 3 ml INH RQ6 CV: - maintain MAP> 65 - Vasopressors: levophed, phenylephrine, vasopressin - D-dimer > 5250 - Chest CT shows extensive bilateral lower lobe proximal PE, smaller emboli within upper lobes and middle lobe, cardiomegaly - Venous dopplers show DVT in left common femoral vein - ECHO shows LVEF 73%, diastolic dysfunction, mild-mod dilated RV - Cardiology consulted. Appreciate recs. - Consider IVC filter when stable GI: - Abd/pelvis CT shows mild ileus, questionable enteritis, postoperative changes of stomach - Diarrhea noted. Followup FOBT, stool culture, salmonella, shiga toxins. C.diff negative. - Procal >200 - Protonix 40 mg IV Q12 - NPO - Consider CTA of abdomen once stable for ischemic colitis - Followup abd U/S for possible cholecystitis Renal: - monitor I and O - monitor and replete electrolytes - plan for placement of dialysis catheter and HD due to patient not responding to IV bicarb Endo: - maintain euglycemia with blood sugars 140-180 - holding ISS Heme: - monitor H&H - heparin 4000 units IV given once - heparin drip held - FFP given before placement of dialysis catheter - Heme/onc consulted. Appreciate recs. ID: - Tmax 100.8, WBC count on admission 15.8 - 10/1 BCx NG after 24 hrs x2, UCx no growth - Flagyl 500 mg IV Q8H - Zosyn 2,25 gm IV Q6H - Vancomycin 750 mg IV daily Dispo: ICU, s/p intubation FEN: NPO Access: central line, peripheral IVs Consults: Cardio, Neuro PPX: Protonix for GI, SCDs contraindicated Patient seen, reviewed, and discussed with attending, Dr. Tessie Chowdary PGY-1 - Date & Time Date: 07/28/18 Time: 08:00 <Jm Kurtz - Last Filed: 07/28/18 18:54> CCU Subjective - Physician Review Critical Care Time Spent (in minutes): 60 CCU Objective - Vital Signs / Intake & Output Vital Signs (Last 4 hours): Vital Signs Temp Pulse Resp BP Pulse Ox 07/28/18 17:01 100 H 20 97 07/28/18 17:00 100 H 30 H 137/67 98 07/28/18 16:50 92 H 20 96 07/28/18 16:45 98 H 30 H 149/77 97 07/28/18 16:30 101 H 30 H 117/60 95 07/28/18 16:19 101 H 30 H 98 07/28/18 16:15 101 H 30 H 125/64 96 07/28/18 16:00 100.6 F H 103 H 30 H 133/64 98 07/28/18 15:45 98 H 30 H 131/73 96 07/28/18 15:35 96 H 30 H 120/70 99 07/28/18 15:30 101 H 30 H 119/75 100 07/28/18 15:15 98 H 30 H 141/60 100 07/28/18 15:00 100.6 F H 101 H 30 H 130/76 98 Intake and Output (Last 8hrs): Intake & Output 07/28/18 07/28/18 07/28/18 06:59 14:59 22:59 Intake Total 4607.64 3427.66 1212.1 Output Total 260 200 110 Balance 4347.64 3227.66 1102.1 Weight 190 lb 14.4 oz Intake: IV 1497.54 483.36 396 Intake, IV Amount 2683.1 2944.3 816.1 Left Distal Port IJ - Y- 41.4 28.8 9.0 Port Left Distal Port Internal 201.4 174.4 59.9 Jugular Left IJ TLC 1400 1350 250 Left Medial Port IJ Y- 515.9 462.5 40 Port Left Medial Port Internal 750 450 Jugular Left Proximal Port IJ Y- 19.2 19.2 7.2 Port Left Proximal Port 435 150 Internal Jugular Right Antecubital 70.2 9.4 Blood Product 325 Red Blood Cells Cpd As1 325 Lr Unit [id number] Other 102 Red Blood Cells Cpd As1 52 Lr Unit [id number] Output: Urine 260 200 110 Urethral (Becerril) 260 200 110 Other: # Bowel Movements 1 - Medications Active Medications: Active Medications Generic Name Dose Route Start Last Admin Trade Name Freq PRN Reason Stop Dose Admin Heparin Sodium/Sodium Chloride 25,000 units in 250 mls @ 12.247 mls/hr 07/27/18 07:09 07/28/18 18:34 Heparin 98141 Units/250ml 1/2 Normal Saline IV 16.875 units/kg/hr .[id number] PRN 12.247 mls/hr ADJUST RATE PER PROTOCOL Titration Protocol 16.875 UNITS/KG/HR Norepinephrine Bitartrate 4 mg 250 mls @ 15 mls/hr 07/27/18 07:39 07/28/18 17:09 / Sodium Chloride IV 0 mcg/min .[id number] PRN 0 mls/hr TITRATE PER MD ORDER Titration Protocol 4 MCG/MIN Cisatracurium Besylate 100 mg/ 250 mls @ 32.66 mls/hr 07/27/18 08:24 07/28/18 18:50 Dextrose IV 1 mcg/kg/min .[id number] PRN 10.9 mls/hr Agitation Titration Protocol 3 MCG/KG/MIN Phenylephrine HCl 30 mg/ 250 mls @ 10 mls/hr 07/27/18 09:40 07/28/18 15:37 Sodium Chloride IV 0 mcg/min .Q24H PRN 0 mls/hr TITRATE PER MD ORDER Titration Protocol 20 MCG/MIN Vasopressin 40 units/ Sodium 40 mls @ 1.2 mls/hr 07/27/18 11:00 07/28/18 17:34 Chloride IV Not Given .Q24H KACY Protocol 0.02 UNITS/MIN Dexmedetomidine HCl 200 mcg/ 50 mls @ 3.63 mls/hr 07/27/18 16:08 07/28/18 18:48 Sodium Chloride IV 0.09 mcg/kg/hr TITR PRN 1.8 mls/hr Sedation Titration Protocol 0.2 MCG/KG/HR Metronidazole 500 mg in 100 mls @ 100 mls/hr 07/27/18 18:30 07/28/18 17:34 Flagyl IVPB 100 mls/hr Q8H KACY Administration Protocol Sodium Bicarbonate 150 meq/ 1,150 mls @ 150 mls/hr 07/28/18 10:00 07/28/18 17:37 Sodium Chloride IV 150 mls/hr .Q7H40M KACY Administration Vancomycin HCl 150 mls @ 100 mls/hr 07/28/18 12:00 07/28/18 11:48 Vancocin 750mg/Ns 150 Ml IVPB 100 mls/hr Q24H KACY Administration Protocol Piperacillin Sod/Tazobactam 100 mls @ 200 mls/hr 07/28/18 10:00 07/28/18 15:40 Sod 2.25 gm/ Sodium Chloride IVPB 200 mls/hr Q6H KACY Administration Protocol Lorazepam 2 mg 07/27/18 08:25 Ativan IVP Q4 PRN Anxiety Methylprednisolone 40 mg 07/27/18 10:00 07/28/18 17:43 Solu-Medrol IVP 40 mg TID KACY Administration Pantoprazole Sodium 40 mg 07/27/18 10:00 07/28/18 10:04 Protonix Inj IVP 40 mg Q12 KACY Administration - Patient Studies Lab Studies: Microbiology Studies 07/27/18 09:18 MRSA Culture (Admit) - Final Naris MRSA NOT DETECTED 07/27/18 10:29 Blood Culture - Preliminary Blood-Venous NO GROWTH AFTER 24 HOURS 07/27/18 10:04 Blood Culture - Preliminary Blood-Venous NO GROWTH AFTER 24 HOURS 07/27/18 05:31 Urine Culture - Final Urine,Catheterized No Growth (<1,000 CFU/ML) Lab Studies 07/28/18 07/28/18 07/28/18 Range/Units 17:58 16:21 12:24 WBC (4.8-10.8) K/uL RBC (3.80-5.20) Mil/uL Hgb (11.0-16.0) g/dL Hct (34.0-47.0) % MCV (81.0-99.0) fL MCH (27.0-31.0) pg MCHC (33.0-37.0) g/dL RDW (11.5-14.5) % Plt Count (130-400) K/uL MPV (7.2-11.7) fL Neut % (Auto) (50.0-75.0) % Lymph % (Auto) (20.0-40.0) % Schley % (Auto) (0.0-10.0) % Eos % (Auto) (0.0-4.0) % Baso % (Auto) (0.0-2.0) % Neut # (Auto) (1.8-7.0) K/uL Lymph # (Auto) (1.0-4.3) K/uL Schley # (Auto) (0.0-0.8) K/uL Eos # (Auto) (0.0-0.7) K/uL Baso # (Auto) (0.0-0.2) K/uL Neutrophils % (Manual) (50-75) % Band Neutrophils % (0-2) % Lymphocytes % (Manual) (20-40) % Monocytes % (Manual) (0-10) % Metamyelocytes % (0-0) % Platelet Estimate (NORMAL) RBC Morphology Hypochromasia (manual) Poikilocytosis (manual Basophilic Stippling Anisocytosis (manual) PT (9.7-12.2) SECONDS INR APTT 45 H D (21-34) SECONDS Puncture Site Rfem pCO2 33 L (35-45) mm/Hg pO2 38 L* 38 (80-100) mm/Hg HCO3 20.1 L (21-28) mmol/L ABG pH 7.37 (7.35-7.45) ABG Total CO2 20.1 L (22-28) mmol/L ABG O2 Saturation 80.7 L (95-98) % ABG Base Excess -5.3 L (-2.0-3.0) mmol/L ABG Hemoglobin (11.7-17.4) g/dL ABG Carboxyhemoglobin (0.5-1.5) % POC ABG HHb (Measured) (0.0-5.0) % ABG Methemoglobin (0.0-3.0) % Bryce Test Na VBG pH 7.25 L (7.32-7.43) VBG pCO2 38 L (40-60) mmHg VBG HCO3 16.2 mmol/L VBG Total CO2 17.9 L (22-28) mmol/L VBG O2 Sat (Calc) 78.0 H (40-65) % VBG Base Excess -9.9 L (0.0-2.0) mmol/L VBG Potassium 3.2 L (3.6-5.2) mmol/L A-a O2 Difference 634.0 mm/Hg Respiratory Index 16.7 Hgb O2 Saturation (95.0-98.0) % Glucose 160 H (65-105) mg/dl Lactate 6.5 H* (0.7-2.1) mmol/L Vent Mode Prvc Mechanical Rate 30 FiO2 100.0 100.0 % Tidal Volume 500 PEEP 5 5 Crit Value Called To Dr tessie kurtz Crit Value Called By Nomi Palacios.[facility] Crit Value Read Back Y Y Blood Gas Notified Time 1624 1230 Sodium 152.0 H (132-148) mmol/L Potassium (3.6-5.2) mmol/L Chloride 123.0 H (98-107) mmol/L Carbon Dioxide (22-30) mmol/L Anion Gap (10-20) BUN (7-17) mg/dL Creatinine (0.7-1.2) mg/dL Est GFR ( Amer) Est GFR (Non-Af Amer) Random Glucose (65-105) mg/dL Lactic Acid (0.7-2.1) mmol/L Calcium (8.6-10.4) mg/dl Phosphorus (2.5-4.5) mg/dL Magnesium (1.6-2.3) mg/dL Total Bilirubin (0.2-1.3) mg/dL AST (14-36) U/L ALT (9-52) U/L Alkaline Phosphatase (38-126) U/L Total Protein (6.3-8.3) g/dL Albumin (3.5-5.0) g/dL Globulin (2.2-3.9) gm/dL Albumin/Globulin Ratio (1.0-2.1) Procalcitonin (0.19-0.49) NG/ML Venous Blood Potassium 3.2 L (3.6-5.2) mmol/L Stool Leukocytes, Qual (NEGATIVE) C. difficile Ag & Toxin (NEGATIVE) Blood Type Blood Type Confirm Antibody Screen 07/28/18 07/28/18 07/28/18 Range/Units 10:31 10:31 10:13 WBC 29.0 H (4.8-10.8) K/uL RBC 3.31 L (3.80-5.20) Mil/uL Hgb 8.6 L (11.0-16.0) g/dL Hct 27.4 L (34.0-47.0) % MCV 82.7 (81.0-99.0) fL MCH 26.0 L (27.0-31.0) pg MCHC 31.4 L (33.0-37.0) g/dL RDW 14.4 (11.5-14.5) % Plt Count 102 L D (130-400) K/uL MPV 9.4 (7.2-11.7) fL Neut % (Auto) 88.4 H (50.0-75.0) % Lymph % (Auto) 8.9 L (20.0-40.0) % Schley % (Auto) 2.2 (0.0-10.0) % Eos % (Auto) 0.4 (0.0-4.0) % Baso % (Auto) 0.1 (0.0-2.0) % Neut # (Auto) 25.7 H (1.8-7.0) K/uL Lymph # (Auto) 2.6 (1.0-4.3) K/uL Schley # (Auto) 0.6 (0.0-0.8) K/uL Eos # (Auto) 0.1 (0.0-0.7) K/uL Baso # (Auto) 0.0 (0.0-0.2) K/uL Neutrophils % (Manual) 72 (50-75) % Band Neutrophils % 16 H* (0-2) % Lymphocytes % (Manual) 10 L (20-40) % Monocytes % (Manual) 1 (0-10) % Metamyelocytes % 1 H (0-0) % Platelet Estimate Slightly decreased L (NORMAL) RBC Morphology Hypochromasia (manual) Slight Poikilocytosis (manual Basophilic Stippling Slight Anisocytosis (manual) PT (9.7-12.2) SECONDS INR APTT (21-34) SECONDS Puncture Site pCO2 (35-45) mm/Hg pO2 18 L (80-100) mm/Hg HCO3 (21-28) mmol/L ABG pH (7.35-7.45) ABG Total CO2 (22-28) mmol/L ABG O2 Saturation (95-98) % ABG Base Excess (-2.0-3.0) mmol/L ABG Hemoglobin (11.7-17.4) g/dL ABG Carboxyhemoglobin (0.5-1.5) % POC ABG HHb (Measured) (0.0-5.0) % ABG Methemoglobin (0.0-3.0) % Bryce Test VBG pH 7.04 L* (7.32-7.43) VBG pCO2 48 (40-60) mmHg VBG HCO3 8.9 mmol/L VBG Total CO2 14.5 L (22-28) mmol/L VBG O2 Sat (Calc) 31.5 L (40-65) % VBG Base Excess -17.5 L (0.0-2.0) mmol/L VBG Potassium 3.0 L (3.6-5.2) mmol/L A-a O2 Difference mm/Hg Respiratory Index Hgb O2 Saturation (95.0-98.0) % Glucose 119 H (65-105) mg/dl Lactate 6.1 H* (0.7-2.1) mmol/L Vent Mode Mechanical Rate FiO2 100.0 % Tidal Volume PEEP 5 Crit Value Called To Dr kurtz Crit Value Called By Philip holliday social media content manager Crit Value Read Back Y Blood Gas Notified Time 1020 Sodium 153 H 151.0 H (132-148) mmol/L Potassium 4.3 (3.6-5.2) mmol/L Chloride 119 H 127.0 H (98-107) mmol/L Carbon Dioxide 18 L (22-30) mmol/L Anion Gap 21 H (10-20) BUN 32 H (7-17) mg/dL Creatinine 3.2 H (0.7-1.2) mg/dL Est GFR ( Amer) 19 Est GFR (Non-Af Amer) 16 Random Glucose 144 H (65-105) mg/dL Lactic Acid (0.7-2.1) mmol/L Calcium 5.7 L* (8.6-10.4) mg/dl Phosphorus 5.8 H (2.5-4.5) mg/dL Magnesium 1.5 L (1.6-2.3) mg/dL Total Bilirubin 0.8 (0.2-1.3) mg/dL AST 995 H D (14-36) U/L ALT 442 H D (9-52) U/L Alkaline Phosphatase 38 D (38-126) U/L Total Protein 3.9 L (6.3-8.3) g/dL Albumin 2.2 L (3.5-5.0) g/dL Globulin 1.7 L (2.2-3.9) gm/dL Albumin/Globulin Ratio 1.3 (1.0-2.1) Procalcitonin (0.19-0.49) NG/ML Venous Blood Potassium 3.0 L (3.6-5.2) mmol/L Stool Leukocytes, Qual (NEGATIVE) C. difficile Ag & Toxin (NEGATIVE) Blood Type Blood Type Confirm Antibody Screen 07/28/18 07/28/18 07/28/18 Range/Units 10:00 09:56 07:10 WBC (4.8-10.8) K/uL RBC (3.80-5.20) Mil/uL Hgb (11.0-16.0) g/dL Hct (34.0-47.0) % MCV (81.0-99.0) fL MCH (27.0-31.0) pg MCHC (33.0-37.0) g/dL RDW (11.5-14.5) % Plt Count (130-400) K/uL MPV (7.2-11.7) fL Neut % (Auto) (50.0-75.0) % Lymph % (Auto) (20.0-40.0) % Schley % (Auto) (0.0-10.0) % Eos % (Auto) (0.0-4.0) % Baso % (Auto) (0.0-2.0) % Neut # (Auto) (1.8-7.0) K/uL Lymph # (Auto) (1.0-4.3) K/uL Schley # (Auto) (0.0-0.8) K/uL Eos # (Auto) (0.0-0.7) K/uL Baso # (Auto) (0.0-0.2) K/uL Neutrophils % (Manual) (50-75) % Band Neutrophils % (0-2) % Lymphocytes % (Manual) (20-40) % Monocytes % (Manual) (0-10) % Metamyelocytes % (0-0) % Platelet Estimate (NORMAL) RBC Morphology Hypochromasia (manual) Poikilocytosis (manual Basophilic Stippling Anisocytosis (manual) PT 25.8 H (9.7-12.2) SECONDS INR 2.4 APTT 176 H* D > 400 H* (21-34) SECONDS Puncture Site pCO2 (35-45) mm/Hg pO2 (80-100) mm/Hg HCO3 (21-28) mmol/L ABG pH (7.35-7.45) ABG Total CO2 (22-28) mmol/L ABG O2 Saturation (95-98) % ABG Base Excess (-2.0-3.0) mmol/L ABG Hemoglobin (11.7-17.4) g/dL ABG Carboxyhemoglobin (0.5-1.5) % POC ABG HHb (Measured) (0.0-5.0) % ABG Methemoglobin (0.0-3.0) % Bryce Test VBG pH (7.32-7.43) VBG pCO2 (40-60) mmHg VBG HCO3 mmol/L VBG Total CO2 (22-28) mmol/L VBG O2 Sat (Calc) (40-65) % VBG Base Excess (0.0-2.0) mmol/L VBG Potassium (3.6-5.2) mmol/L A-a O2 Difference mm/Hg Respiratory Index Hgb O2 Saturation (95.0-98.0) % Glucose (65-105) mg/dl Lactate (0.7-2.1) mmol/L Vent Mode Mechanical Rate FiO2 % Tidal Volume PEEP Crit Value Called To Crit Value Called By Crit Value Read Back Blood Gas Notified Time Sodium (132-148) mmol/L Potassium (3.6-5.2) mmol/L Chloride (98-107) mmol/L Carbon Dioxide (22-30) mmol/L Anion Gap (10-20) BUN (7-17) mg/dL Creatinine (0.7-1.2) mg/dL Est GFR ( Amer) Est GFR (Non-Af Amer) Random Glucose (65-105) mg/dL Lactic Acid (0.7-2.1) mmol/L Calcium (8.6-10.4) mg/dl Phosphorus (2.5-4.5) mg/dL Magnesium (1.6-2.3) mg/dL Total Bilirubin (0.2-1.3) mg/dL AST (14-36) U/L ALT (9-52) U/L Alkaline Phosphatase (38-126) U/L Total Protein (6.3-8.3) g/dL Albumin (3.5-5.0) g/dL Globulin (2.2-3.9) gm/dL Albumin/Globulin Ratio (1.0-2.1) Procalcitonin > 200.00 H (0.19-0.49) NG/ML Venous Blood Potassium (3.6-5.2) mmol/L Stool Leukocytes, Qual (NEGATIVE) C. difficile Ag & Toxin (NEGATIVE) Blood Type Blood Type Confirm Antibody Screen 07/28/18 07/28/18 07/28/18 Range/Units 05:30 05:30 05:30 WBC 39.7 H* (4.8-10.8) K/uL RBC 3.66 L (3.80-5.20) Mil/uL Hgb 9.6 L (11.0-16.0) g/dL Hct 30.5 L (34.0-47.0) % MCV 83.5 (81.0-99.0) fL MCH 26.3 L (27.0-31.0) pg MCHC 31.5 L (33.0-37.0) g/dL RDW 14.3 (11.5-14.5) % Plt Count 128 L (130-400) K/uL MPV 9.5 (7.2-11.7) fL Neut % (Auto) 90.2 H (50.0-75.0) % Lymph % (Auto) 7.1 L (20.0-40.0) % Schley % (Auto) 2.0 (0.0-10.0) % Eos % (Auto) 0.6 (0.0-4.0) % Baso % (Auto) 0.1 (0.0-2.0) % Neut # (Auto) 35.9 H (1.8-7.0) K/uL Lymph # (Auto) 2.8 (1.0-4.3) K/uL Schley # (Auto) 0.8 (0.0-0.8) K/uL Eos # (Auto) 0.2 (0.0-0.7) K/uL Baso # (Auto) 0.0 (0.0-0.2) K/uL Neutrophils % (Manual) 65 (50-75) % Band Neutrophils % 23 H* (0-2) % Lymphocytes % (Manual) 9 L (20-40) % Monocytes % (Manual) 2 (0-10) % Metamyelocytes % 1 H (0-0) % Platelet Estimate Slightly decreased L (NORMAL) RBC Morphology Hypochromasia (manual) Poikilocytosis (manual Slight Basophilic Stippling Anisocytosis (manual) Slight PT (9.7-12.2) SECONDS INR APTT (21-34) SECONDS Puncture Site pCO2 (35-45) mm/Hg pO2 (80-100) mm/Hg HCO3 (21-28) mmol/L ABG pH (7.35-7.45) ABG Total CO2 (22-28) mmol/L ABG O2 Saturation (95-98) % ABG Base Excess (-2.0-3.0) mmol/L ABG Hemoglobin (11.7-17.4) g/dL ABG Carboxyhemoglobin (0.5-1.5) % POC ABG HHb (Measured) (0.0-5.0) % ABG Methemoglobin (0.0-3.0) % Bryce Test VBG pH (7.32-7.43) VBG pCO2 (40-60) mmHg VBG HCO3 mmol/L VBG Total CO2 (22-28) mmol/L VBG O2 Sat (Calc) (40-65) % VBG Base Excess (0.0-2.0) mmol/L VBG Potassium (3.6-5.2) mmol/L A-a O2 Difference mm/Hg Respiratory Index Hgb O2 Saturation (95.0-98.0) % Glucose (65-105) mg/dl Lactate (0.7-2.1) mmol/L Vent Mode Mechanical Rate FiO2 % Tidal Volume PEEP Crit Value Called To Crit Value Called By Crit Value Read Back Blood Gas Notified Time Sodium 153 H (132-148) mmol/L Potassium 4.4 (3.6-5.2) mmol/L Chloride 120 H (98-107) mmol/L Carbon Dioxide 14 L (22-30) mmol/L Anion Gap 23 H (10-20) BUN 29 H (7-17) mg/dL Creatinine 2.8 H (0.7-1.2) mg/dL Est GFR ( Amer) 22 Est GFR (Non-Af Amer) 18 Random Glucose 148 H (65-105) mg/dL Lactic Acid 7.9 H* (0.7-2.1) mmol/L Calcium 6.0 L* (8.6-10.4) mg/dl Phosphorus 6.4 H (2.5-4.5) mg/dL Magnesium 1.5 L (1.6-2.3) mg/dL Total Bilirubin 0.8 (0.2-1.3) mg/dL AST 692 H (14-36) U/L ALT 338 H (9-52) U/L Alkaline Phosphatase 50 (38-126) U/L Total Protein 4.3 L (6.3-8.3) g/dL Albumin 2.4 L D (3.5-5.0) g/dL Globulin 1.9 L (2.2-3.9) gm/dL Albumin/Globulin Ratio 1.2 (1.0-2.1) Procalcitonin (0.19-0.49) NG/ML Venous Blood Potassium (3.6-5.2) mmol/L Stool Leukocytes, Qual (NEGATIVE) C. difficile Ag & Toxin (NEGATIVE) Blood Type Blood Type Confirm Antibody Screen 07/28/18 07/28/18 07/28/18 Range/Units 04:45 00:32 00:32 WBC 38.5 H* (4.8-10.8) K/uL RBC 3.57 L (3.80-5.20) Mil/uL Hgb 9.3 L (11.0-16.0) g/dL Hct 30.0 L (34.0-47.0) % MCV 84.2 D (81.0-99.0) fL MCH 26.0 L (27.0-31.0) pg MCHC 30.9 L (33.0-37.0) g/dL RDW 14.3 (11.5-14.5) % Plt Count 128 L D (130-400) K/uL MPV 9.1 (7.2-11.7) fL Neut % (Auto) 92.9 H (50.0-75.0) % Lymph % (Auto) 4.6 L (20.0-40.0) % Schley % (Auto) 1.9 (0.0-10.0) % Eos % (Auto) 0.6 (0.0-4.0) % Baso % (Auto) 0.0 (0.0-2.0) % Neut # (Auto) 35.8 H (1.8-7.0) K/uL Lymph # (Auto) 1.8 (1.0-4.3) K/uL Schley # (Auto) 0.7 (0.0-0.8) K/uL Eos # (Auto) 0.2 (0.0-0.7) K/uL Baso # (Auto) 0.0 (0.0-0.2) K/uL Neutrophils % (Manual) 76 H (50-75) % Band Neutrophils % 20 H* (0-2) % Lymphocytes % (Manual) 2 L (20-40) % Monocytes % (Manual) 2 (0-10) % Metamyelocytes % (0-0) % Platelet Estimate Slightly decreased L (NORMAL) RBC Morphology Hypochromasia (manual) Poikilocytosis (manual Slight Basophilic Stippling Anisocytosis (manual) Slight PT (9.7-12.2) SECONDS INR APTT > 400 H* D (21-34) SECONDS Puncture Site Lb pCO2 44 (35-45) mm/Hg pO2 118 H (80-100) mm/Hg HCO3 11.1 L (21-28) mmol/L ABG pH 7.04 L* (7.35-7.45) ABG Total CO2 13.3 L (22-28) mmol/L ABG O2 Saturation 99.7 H (95-98) % ABG Base Excess -17.8 L (-2.0-3.0) mmol/L ABG Hemoglobin 9.5 L (11.7-17.4) g/dL ABG Carboxyhemoglobin 1.3 (0.5-1.5) % POC ABG HHb (Measured) 0.3 (0.0-5.0) % ABG Methemoglobin 0.7 (0.0-3.0) % Bryce Test Na VBG pH (7.32-7.43) VBG pCO2 (40-60) mmHg VBG HCO3 mmol/L VBG Total CO2 (22-28) mmol/L VBG O2 Sat (Calc) (40-65) % VBG Base Excess (0.0-2.0) mmol/L VBG Potassium (3.6-5.2) mmol/L A-a O2 Difference 540.0 mm/Hg Respiratory Index 4.6 Hgb O2 Saturation 97.7 (95.0-98.0) % Glucose (65-105) mg/dl Lactate (0.7-2.1) mmol/L Vent Mode Prvc Mechanical Rate 24 FiO2 100.0 % Tidal Volume 450 PEEP 2 Crit Value Called To Jeramy vasquez/rn Crit Value Called By Yusef schofield/rt Crit Value Read Back Y Blood Gas Notified Time 500 Sodium (132-148) mmol/L Potassium (3.6-5.2) mmol/L Chloride (98-107) mmol/L Carbon Dioxide (22-30) mmol/L Anion Gap (10-20) BUN (7-17) mg/dL Creatinine (0.7-1.2) mg/dL Est GFR ( Amer) Est GFR (Non-Af Amer) Random Glucose (65-105) mg/dL Lactic Acid (0.7-2.1) mmol/L Calcium (8.6-10.4) mg/dl Phosphorus (2.5-4.5) mg/dL Magnesium (1.6-2.3) mg/dL Total Bilirubin (0.2-1.3) mg/dL AST (14-36) U/L ALT (9-52) U/L Alkaline Phosphatase (38-126) U/L Total Protein (6.3-8.3) g/dL Albumin (3.5-5.0) g/dL Globulin (2.2-3.9) gm/dL Albumin/Globulin Ratio (1.0-2.1) Procalcitonin (0.19-0.49) NG/ML Venous Blood Potassium (3.6-5.2) mmol/L Stool Leukocytes, Qual (NEGATIVE) C. difficile Ag & Toxin (NEGATIVE) Blood Type Blood Type Confirm Antibody Screen 07/27/18 07/27/18 07/27/18 Range/Units 19:40 18:26 18:26 WBC (4.8-10.8) K/uL RBC (3.80-5.20) Mil/uL Hgb (11.0-16.0) g/dL Hct (34.0-47.0) % MCV (81.0-99.0) fL MCH (27.0-31.0) pg MCHC (33.0-37.0) g/dL RDW (11.5-14.5) % Plt Count (130-400) K/uL MPV (7.2-11.7) fL Neut % (Auto) (50.0-75.0) % Lymph % (Auto) (20.0-40.0) % Schley % (Auto) (0.0-10.0) % Eos % (Auto) (0.0-4.0) % Baso % (Auto) (0.0-2.0) % Neut # (Auto) (1.8-7.0) K/uL Lymph # (Auto) (1.0-4.3) K/uL Schley # (Auto) (0.0-0.8) K/uL Eos # (Auto) (0.0-0.7) K/uL Baso # (Auto) (0.0-0.2) K/uL Neutrophils % (Manual) (50-75) % Band Neutrophils % (0-2) % Lymphocytes % (Manual) (20-40) % Monocytes % (Manual) (0-10) % Metamyelocytes % (0-0) % Platelet Estimate (NORMAL) RBC Morphology Hypochromasia (manual) Poikilocytosis (manual Basophilic Stippling Anisocytosis (manual) PT (9.7-12.2) SECONDS INR APTT (21-34) SECONDS Puncture Site pCO2 (35-45) mm/Hg pO2 (80-100) mm/Hg HCO3 (21-28) mmol/L ABG pH (7.35-7.45) ABG Total CO2 (22-28) mmol/L ABG O2 Saturation (95-98) % ABG Base Excess (-2.0-3.0) mmol/L ABG Hemoglobin (11.7-17.4) g/dL ABG Carboxyhemoglobin (0.5-1.5) % POC ABG HHb (Measured) (0.0-5.0) % ABG Methemoglobin (0.0-3.0) % Bryce Test VBG pH (7.32-7.43) VBG pCO2 (40-60) mmHg VBG HCO3 mmol/L VBG Total CO2 (22-28) mmol/L VBG O2 Sat (Calc) (40-65) % VBG Base Excess (0.0-2.0) mmol/L VBG Potassium (3.6-5.2) mmol/L A-a O2 Difference mm/Hg Respiratory Index Hgb O2 Saturation (95.0-98.0) % Glucose (65-105) mg/dl Lactate (0.7-2.1) mmol/L Vent Mode Mechanical Rate FiO2 % Tidal Volume PEEP Crit Value Called To Crit Value Called By Crit Value Read Back Blood Gas Notified Time Sodium 150 H (132-148) mmol/L Potassium 4.1 (3.6-5.2) mmol/L Chloride 119 H (98-107) mmol/L Carbon Dioxide 20 L (22-30) mmol/L Anion Gap 16 (10-20) BUN 28 H (7-17) mg/dL Creatinine 2.0 H (0.7-1.2) mg/dL Est GFR ( Amer) 32 Est GFR (Non-Af Amer) 27 Random Glucose 137 H (65-105) mg/dL Lactic Acid (0.7-2.1) mmol/L Calcium 5.9 L* (8.6-10.4) mg/dl Phosphorus 6.4 H (2.5-4.5) mg/dL Magnesium 1.8 (1.6-2.3) mg/dL Total Bilirubin 0.5 (0.2-1.3) mg/dL AST 709 H (14-36) U/L ALT 318 H (9-52) U/L Alkaline Phosphatase 114 (38-126) U/L Total Protein 4.0 L (6.3-8.3) g/dL Albumin 1.9 L (3.5-5.0) g/dL Globulin 2.1 L (2.2-3.9) gm/dL Albumin/Globulin Ratio 0.9 L (1.0-2.1) Procalcitonin (0.19-0.49) NG/ML Venous Blood Potassium (3.6-5.2) mmol/L Stool Leukocytes, Qual Negative (NEGATIVE) C. difficile Ag & Toxin (NEGATIVE) Blood Type A POSITIVE Blood Type Confirm A POSITIVE Antibody Screen Negative 07/27/18 07/27/18 Range/Units 18:26 16:42 WBC (4.8-10.8) K/uL RBC (3.80-5.20) Mil/uL Hgb (11.0-16.0) g/dL Hct (34.0-47.0) % MCV (81.0-99.0) fL MCH (27.0-31.0) pg MCHC (33.0-37.0) g/dL RDW (11.5-14.5) % Plt Count (130-400) K/uL MPV (7.2-11.7) fL Neut % (Auto) (50.0-75.0) % Lymph % (Auto) (20.0-40.0) % Schley % (Auto) (0.0-10.0) % Eos % (Auto) (0.0-4.0) % Baso % (Auto) (0.0-2.0) % Neut # (Auto) (1.8-7.0) K/uL Lymph # (Auto) (1.0-4.3) K/uL Schley # (Auto) (0.0-0.8) K/uL Eos # (Auto) (0.0-0.7) K/uL Baso # (Auto) (0.0-0.2) K/uL Neutrophils % (Manual) 88 H (50-75) % Band Neutrophils % 9 H (0-2) % Lymphocytes % (Manual) 2 L (20-40) % Monocytes % (Manual) 1 (0-10) % Metamyelocytes % (0-0) % Platelet Estimate Normal (NORMAL) RBC Morphology Normal Hypochromasia (manual) Poikilocytosis (manual Basophilic Stippling Anisocytosis (manual) PT (9.7-12.2) SECONDS INR APTT (21-34) SECONDS Puncture Site pCO2 (35-45) mm/Hg pO2 (80-100) mm/Hg HCO3 (21-28) mmol/L ABG pH (7.35-7.45) ABG Total CO2 (22-28) mmol/L ABG O2 Saturation (95-98) % ABG Base Excess (-2.0-3.0) mmol/L ABG Hemoglobin (11.7-17.4) g/dL ABG Carboxyhemoglobin (0.5-1.5) % POC ABG HHb (Measured) (0.0-5.0) % ABG Methemoglobin (0.0-3.0) % Bryce Test VBG pH (7.32-7.43) VBG pCO2 (40-60) mmHg VBG HCO3 mmol/L VBG Total CO2 (22-28) mmol/L VBG O2 Sat (Calc) (40-65) % VBG Base Excess (0.0-2.0) mmol/L VBG Potassium (3.6-5.2) mmol/L A-a O2 Difference mm/Hg Respiratory Index Hgb O2 Saturation (95.0-98.0) % Glucose (65-105) mg/dl Lactate (0.7-2.1) mmol/L Vent Mode Mechanical Rate FiO2 % Tidal Volume PEEP Crit Value Called To Crit Value Called By Crit Value Read Back Blood Gas Notified Time Sodium (132-148) mmol/L Potassium (3.6-5.2) mmol/L Chloride (98-107) mmol/L Carbon Dioxide (22-30) mmol/L Anion Gap (10-20) BUN (7-17) mg/dL Creatinine (0.7-1.2) mg/dL Est GFR ( Amer) Est GFR (Non-Af Amer) Random Glucose (65-105) mg/dL Lactic Acid (0.7-2.1) mmol/L Calcium (8.6-10.4) mg/dl Phosphorus (2.5-4.5) mg/dL Magnesium (1.6-2.3) mg/dL Total Bilirubin (0.2-1.3) mg/dL AST (14-36) U/L ALT (9-52) U/L Alkaline Phosphatase (38-126) U/L Total Protein (6.3-8.3) g/dL Albumin (3.5-5.0) g/dL Globulin (2.2-3.9) gm/dL Albumin/Globulin Ratio (1.0-2.1) Procalcitonin (0.19-0.49) NG/ML Venous Blood Potassium (3.6-5.2) mmol/L Stool Leukocytes, Qual (NEGATIVE) C. difficile Ag & Toxin Negative (NEGATIVE) Blood Type Blood Type Confirm Antibody Screen Laboratory Results - last 24 hr 07/27/18 07/27/18 07/27/18 16:42 18:26 18:26 WBC RBC Hgb Hct MCV MCH MCHC RDW Plt Count MPV Neut % (Auto) Lymph % (Auto) Schley % (Auto) Eos % (Auto) Baso % (Auto) Neut # (Auto) Lymph # (Auto) Schley # (Auto) Eos # (Auto) Baso # (Auto) Neutrophils % (Manual) 88 H Band Neutrophils % 9 H Lymphocytes % (Manual) 2 L Monocytes % (Manual) 1 Metamyelocytes % Platelet Estimate Normal RBC Morphology Normal Hypochromasia (manual) Poikilocytosis (manual Basophilic Stippling Anisocytosis (manual) PT INR APTT Puncture Site pCO2 pO2 HCO3 ABG pH ABG Total CO2 ABG O2 Saturation ABG Base Excess ABG Hemoglobin ABG Carboxyhemoglobin POC ABG HHb (Measured) ABG Methemoglobin Bryce Test VBG pH VBG pCO2 VBG HCO3 VBG Total CO2 VBG O2 Sat (Calc) VBG Base Excess VBG Potassium A-a O2 Difference Respiratory Index Hgb O2 Saturation Glucose Lactate Vent Mode Mechanical Rate FiO2 Tidal Volume PEEP Crit Value Called To Crit Value Called By Crit Value Read Back Blood Gas Notified Time Sodium 150 H Potassium 4.1 Chloride 119 H Carbon Dioxide 20 L Anion Gap 16 BUN 28 H Creatinine 2.0 H Est GFR ( Amer) 32 Est GFR (Non-Af Amer) 27 Random Glucose 137 H Lactic Acid Calcium 5.9 L* Phosphorus 6.4 H Magnesium 1.8 Total Bilirubin 0.5 AST 709 H ALT 318 H Alkaline Phosphatase 114 Total Protein 4.0 L Albumin 1.9 L Globulin 2.1 L Albumin/Globulin Ratio 0.9 L Procalcitonin Venous Blood Potassium Stool Leukocytes, Qual C. difficile Ag & Toxin Negative Blood Type Blood Type Confirm Antibody Screen 07/27/18 07/27/18 07/28/18 18:26 19:40 00:32 WBC 38.5 H* RBC 3.57 L Hgb 9.3 L Hct 30.0 L MCV 84.2 D MCH 26.0 L MCHC 30.9 L RDW 14.3 Plt Count 128 L D MPV 9.1 Neut % (Auto) 92.9 H Lymph % (Auto) 4.6 L Schley % (Auto) 1.9 Eos % (Auto) 0.6 Baso % (Auto) 0.0 Neut # (Auto) 35.8 H Lymph # (Auto) 1.8 Schley # (Auto) 0.7 Eos # (Auto) 0.2 Baso # (Auto) 0.0 Neutrophils % (Manual) 76 H Band Neutrophils % 20 H* Lymphocytes % (Manual) 2 L Monocytes % (Manual) 2 Metamyelocytes % Platelet Estimate Slightly decreased L RBC Morphology Hypochromasia (manual) Poikilocytosis (manual Slight Basophilic Stippling Anisocytosis (manual) Slight PT INR APTT Puncture Site pCO2 pO2 HCO3 ABG pH ABG Total CO2 ABG O2 Saturation ABG Base Excess ABG Hemoglobin ABG Carboxyhemoglobin POC ABG HHb (Measured) ABG Methemoglobin Bryce Test VBG pH VBG pCO2 VBG HCO3 VBG Total CO2 VBG O2 Sat (Calc) VBG Base Excess VBG Potassium A-a O2 Difference Respiratory Index Hgb O2 Saturation Glucose Lactate Vent Mode Mechanical Rate FiO2 Tidal Volume PEEP Crit Value Called To Crit Value Called By Crit Value Read Back Blood Gas Notified Time Sodium Potassium Chloride Carbon Dioxide Anion Gap BUN Creatinine Est GFR ( Amer) Est GFR (Non-Af Amer) Random Glucose Lactic Acid Calcium Phosphorus Magnesium Total Bilirubin AST ALT Alkaline Phosphatase Total Protein Albumin Globulin Albumin/Globulin Ratio Procalcitonin Venous Blood Potassium Stool Leukocytes, Qual Negative C. difficile Ag & Toxin Blood Type A POSITIVE Blood Type Confirm A POSITIVE Antibody Screen Negative 07/28/18 07/28/18 07/28/18 00:32 04:45 05:30 WBC 39.7 H* RBC 3.66 L Hgb 9.6 L Hct 30.5 L MCV 83.5 MCH 26.3 L MCHC 31.5 L RDW 14.3 Plt Count 128 L MPV 9.5 Neut % (Auto) 90.2 H Lymph % (Auto) 7.1 L Schley % (Auto) 2.0 Eos % (Auto) 0.6 Baso % (Auto) 0.1 Neut # (Auto) 35.9 H Lymph # (Auto) 2.8 Schley # (Auto) 0.8 Eos # (Auto) 0.2 Baso # (Auto) 0.0 Neutrophils % (Manual) 65 Band Neutrophils % 23 H* Lymphocytes % (Manual) 9 L Monocytes % (Manual) 2 Metamyelocytes % 1 H Platelet Estimate Slightly decreased L RBC Morphology Hypochromasia (manual) Poikilocytosis (manual Slight Basophilic Stippling Anisocytosis (manual) Slight PT INR APTT > 400 H* D Puncture Site Lb pCO2 44 pO2 118 H HCO3 11.1 L ABG pH 7.04 L* ABG Total CO2 13.3 L ABG O2 Saturation 99.7 H ABG Base Excess -17.8 L ABG Hemoglobin 9.5 L ABG Carboxyhemoglobin 1.3 POC ABG HHb (Measured) 0.3 ABG Methemoglobin 0.7 Bryce Test Na VBG pH VBG pCO2 VBG HCO3 VBG Total CO2 VBG O2 Sat (Calc) VBG Base Excess VBG Potassium A-a O2 Difference 540.0 Respiratory Index 4.6 Hgb O2 Saturation 97.7 Glucose Lactate Vent Mode Prvc Mechanical Rate 24 FiO2 100.0 Tidal Volume 450 PEEP 2 Crit Value Called To Jeramy vasquez/rn Crit Value Called By Yusef schofield/rt Crit Value Read Back Y Blood Gas Notified Time 500 Sodium Potassium Chloride Carbon Dioxide Anion Gap BUN Creatinine Est GFR ( Amer) Est GFR (Non-Af Amer) Random Glucose Lactic Acid Calcium Phosphorus Magnesium Total Bilirubin AST ALT Alkaline Phosphatase Total Protein Albumin Globulin Albumin/Globulin Ratio Procalcitonin Venous Blood Potassium Stool Leukocytes, Qual C. difficile Ag & Toxin Blood Type Blood Type Confirm Antibody Screen 07/28/18 07/28/18 07/28/18 05:30 05:30 07:10 WBC RBC Hgb Hct MCV MCH MCHC RDW Plt Count MPV Neut % (Auto) Lymph % (Auto) Schley % (Auto) Eos % (Auto) Baso % (Auto) Neut # (Auto) Lymph # (Auto) Schley # (Auto) Eos # (Auto) Baso # (Auto) Neutrophils % (Manual) Band Neutrophils % Lymphocytes % (Manual) Monocytes % (Manual) Metamyelocytes % Platelet Estimate RBC Morphology Hypochromasia (manual) Poikilocytosis (manual Basophilic Stippling Anisocytosis (manual) PT INR APTT > 400 H* Puncture Site pCO2 pO2 HCO3 ABG pH ABG Total CO2 ABG O2 Saturation ABG Base Excess ABG Hemoglobin ABG Carboxyhemoglobin POC ABG HHb (Measured) ABG Methemoglobin Bryce Test VBG pH VBG pCO2 VBG HCO3 VBG Total CO2 VBG O2 Sat (Calc) VBG Base Excess VBG Potassium A-a O2 Difference Respiratory Index Hgb O2 Saturation Glucose Lactate Vent Mode Mechanical Rate FiO2 Tidal Volume PEEP Crit Value Called To Crit Value Called By Crit Value Read Back Blood Gas Notified Time Sodium 153 H Potassium 4.4 Chloride 120 H Carbon Dioxide 14 L Anion Gap 23 H BUN 29 H Creatinine 2.8 H Est GFR ( Amer) 22 Est GFR (Non-Af Amer) 18 Random Glucose 148 H Lactic Acid 7.9 H* Calcium 6.0 L* Phosphorus 6.4 H Magnesium 1.5 L Total Bilirubin 0.8 AST 692 H ALT 338 H Alkaline Phosphatase 50 Total Protein 4.3 L Albumin 2.4 L D Globulin 1.9 L Albumin/Globulin Ratio 1.2 Procalcitonin Venous Blood Potassium Stool Leukocytes, Qual C. difficile Ag & Toxin Blood Type Blood Type Confirm Antibody Screen 07/28/18 07/28/18 07/28/18 09:56 10:00 10:13 WBC RBC Hgb Hct MCV MCH MCHC RDW Plt Count MPV Neut % (Auto) Lymph % (Auto) Schley % (Auto) Eos % (Auto) Baso % (Auto) Neut # (Auto) Lymph # (Auto) Schley # (Auto) Eos # (Auto) Baso # (Auto) Neutrophils % (Manual) Band Neutrophils % Lymphocytes % (Manual) Monocytes % (Manual) Metamyelocytes % Platelet Estimate RBC Morphology Hypochromasia (manual) Poikilocytosis (manual Basophilic Stippling Anisocytosis (manual) PT 25.8 H INR 2.4 APTT 176 H* D Puncture Site pCO2 pO2 18 L HCO3 ABG pH ABG Total CO2 ABG O2 Saturation ABG Base Excess ABG Hemoglobin ABG Carboxyhemoglobin POC ABG HHb (Measured) ABG Methemoglobin Bryce Test VBG pH 7.04 L* VBG pCO2 48 VBG HCO3 8.9 VBG Total CO2 14.5 L VBG O2 Sat (Calc) 31.5 L VBG Base Excess -17.5 L VBG Potassium 3.0 L A-a O2 Difference Respiratory Index Hgb O2 Saturation Glucose 119 H Lactate 6.1 H* Vent Mode Mechanical Rate FiO2 100.0 Tidal Volume PEEP 5 Crit Value Called To Dr kurtz Crit Value Called By Philip holliday social media content manager Crit Value Read Back Y Blood Gas Notified Time 1020 Sodium 151.0 H Potassium Chloride 127.0 H Carbon Dioxide Anion Gap BUN Creatinine Est GFR ( Amer) Est GFR (Non-Af Amer) Random Glucose Lactic Acid Calcium Phosphorus Magnesium Total Bilirubin AST ALT Alkaline Phosphatase Total Protein Albumin Globulin Albumin/Globulin Ratio Procalcitonin > 200.00 H Venous Blood Potassium 3.0 L Stool Leukocytes, Qual C. difficile Ag & Toxin Blood Type Blood Type Confirm Antibody Screen 07/28/18 07/28/18 07/28/18 10:31 10:31 12:24 WBC 29.0 H RBC 3.31 L Hgb 8.6 L Hct 27.4 L MCV 82.7 MCH 26.0 L MCHC 31.4 L RDW 14.4 Plt Count 102 L D MPV 9.4 Neut % (Auto) 88.4 H Lymph % (Auto) 8.9 L Schley % (Auto) 2.2 Eos % (Auto) 0.4 Baso % (Auto) 0.1 Neut # (Auto) 25.7 H Lymph # (Auto) 2.6 Schley # (Auto) 0.6 Eos # (Auto) 0.1 Baso # (Auto) 0.0 Neutrophils % (Manual) 72 Band Neutrophils % 16 H* Lymphocytes % (Manual) 10 L Monocytes % (Manual) 1 Metamyelocytes % 1 H Platelet Estimate Slightly decreased L RBC Morphology Hypochromasia (manual) Slight Poikilocytosis (manual Basophilic Stippling Slight Anisocytosis (manual) PT INR APTT Puncture Site pCO2 pO2 38 HCO3 ABG pH ABG Total CO2 ABG O2 Saturation ABG Base Excess ABG Hemoglobin ABG Carboxyhemoglobin POC ABG HHb (Measured) ABG Methemoglobin Bryce Test VBG pH 7.25 L VBG pCO2 38 L VBG HCO3 16.2 VBG Total CO2 17.9 L VBG O2 Sat (Calc) 78.0 H VBG Base Excess -9.9 L VBG Potassium 3.2 L A-a O2 Difference Respiratory Index Hgb O2 Saturation Glucose 160 H Lactate 6.5 H* Vent Mode Mechanical Rate FiO2 100.0 Tidal Volume PEEP 5 Crit Value Called To Dr kurtz Crit Value Called By 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 difficile Ag & Toxin Blood Type Blood Type Confirm Antibody Screen 07/28/18 07/28/18 16:21 17:58 WBC RBC Hgb Hct MCV MCH MCHC RDW Plt Count MPV Neut % (Auto) Lymph % (Auto) Schley % (Auto) Eos % (Auto) Baso % (Auto) Neut # (Auto) Lymph # (Auto) Schley # (Auto) Eos # (Auto) Baso # (Auto) Neutrophils % (Manual) Band Neutrophils % Lymphocytes % (Manual) Monocytes % (Manual) Metamyelocytes % Platelet Estimate RBC Morphology Hypochromasia (manual) Poikilocytosis (manual Basophilic Stippling Anisocytosis (manual) PT INR APTT 45 H D Puncture Site Rfem pCO2 33 L pO2 38 L* HCO3 20.1 L ABG pH 7.37 ABG Total CO2 20.1 L ABG O2 Saturation 80.7 L ABG Base Excess -5.3 L ABG Hemoglobin ABG Carboxyhemoglobin POC ABG HHb (Measured) ABG Methemoglobin Bryce Test Na VBG pH VBG pCO2 VBG HCO3 VBG Total CO2 VBG O2 Sat (Calc) VBG Base Excess VBG Potassium A-a O2 Difference 634.0 Respiratory Index 16.7 Hgb O2 Saturation Glucose Lactate Vent Mode Prvc Mechanical Rate 30 FiO2 100.0 Tidal Volume 500 PEEP 5 Crit Value Called To Dr kurtz Crit Value Called By Nomi sevilla Crit Value Read Back Y Blood Gas Notified Time 1624 Sodium Potassium Chloride Carbon Dioxide Anion Gap BUN Creatinine Est GFR ( Amer) Est GFR (Non-Af Amer) Random Glucose Lactic Acid Calcium Phosphorus Magnesium Total Bilirubin AST ALT Alkaline Phosphatase Total Protein Albumin Globulin Albumin/Globulin Ratio Procalcitonin Venous Blood Potassium Stool Leukocytes, Qual C. difficile Ag & Toxin Blood Type Blood Type Confirm Antibody Screen Attending/Attestation - Attestation I have personally seen and examined this patient.: Yes I have fully participated in the care of the patient.: Yes I have reviewed all pertinent clinical information: Yes Notes (Text): 07/28/18 18:51 patient seen and examined in the intensive care unit. Patient found to be very acidotic, intubated on ventilatory support, sedated, on pressors Elevated white count with high bands, etiology of infection unknown, rule out colitis Surgical evaluation Patient with bilateral pulmonary embolism wasn't heparin which is on hold because of very high PTT and INR Bicarbonate drip IV fluids Nephrology evaluation
[2018-07-28 16:24] LABS: ARTERIAL BLOOD GAS HCO3 20.1 mmol/L (21-28); ARTERIAL BLOOD GAS O2 SAT 80.7 % (95-98); ARTERIAL BLOOD GAS PCO2 33 mm/Hg (35-45); ARTERIAL BLOOD GAS PH 7.37 (7.35-7.45); ARTERIAL BLOOD GAS PO2 38 mm/Hg (80-100); ARTERIAL BLOOD GAS TCO2 20.1 mmol/L (22-28)
--- NOTE | 2018-07-28 17:12 | US ---
HISTORY: evaluate for cholecystitis COMPARISON: CT abdomen and pelvis with IV contrast performed 07/27/18 TECHNIQUE: Sonographic evaluation of the abdomen. FINDINGS: LIVER: Measures 16.0 cm in sagittal dimension. Echogenic liver may be seen in setting of hepatic parenchymal disease or fatty infiltration. No focal hepatic mass identified. The main portal vein appears patent with normal directional flow. No intrahepatic bile duct dilatation. GALLBLADDER: No gallstones. Gallbladder wall thickening/edema measuring approximately 5 mm. Sonographic Braga's sign cannot be adequately assessed due to patient condition. COMMON BILE DUCT: Measures 4 mm. PANCREAS: Not well visualized. RIGHT KIDNEY: Measures 10.9 x 3.9 x 5.1cm. Echogenic renal parenchyma. No obstructing calculus or hydronephrosis identified. LEFT KIDNEY: Measures 4.4 x 5.1 x 5.3 cm. Echogenic renal parenchyma. No obstructing calculus or hydronephrosis identified. SPLEEN: Measures approximately 10.3 cm. AORTA: Limited views appear unremarkable. IVC: Limited views appear unremarkable. OTHER FINDINGS: Right-sided pleural effusion. Small abdominal and right lower quadrant free fluid. IMPRESSION: Technically limited study. Echogenic liver may be seen in setting of hepatic parenchymal disease or fatty infiltration. Gallbladder distension. Gallbladder wall thickening/edema. Pericholecystic fluid. Sonographic Braga's sign cannot be adequately assessed due to patient condition. Correlate clinically for acute cholecystitis. Echogenic bilateral renal parenchyma may be seen in the setting of medical renal disease. Bilateral perinephric fluid evident. Small abdominal and right lower quadrant free fluid. Incidental note is made of right pleural effusion.
[2018-07-28 20:39] LABS: ARTERIAL BLOOD GAS HCO3 21.1 mmol/L (21-28); ARTERIAL BLOOD GAS O2 SAT 100.8 % (95-98); ARTERIAL BLOOD GAS PCO2 22 mm/Hg (35-45); ARTERIAL BLOOD GAS PH 7.48 (7.35-7.45); ARTERIAL BLOOD GAS PO2 310 mm/Hg (80-100); ARTERIAL BLOOD GAS TCO2 17.1 mmol/L (22-28)
[2018-07-28 23:22] LABS: ABG ALLEN TEST POS; ARTERIAL BLOOD GAS HCO3 24.3 mmol/L (21-28); ARTERIAL BLOOD GAS PCO2 30 mm/Hg (35-45); ARTERIAL BLOOD GAS PH 7.48 (7.35-7.45); ARTERIAL BLOOD GAS PO2 180 mm/Hg (80-100); ARTERIAL BLOOD GAS TCO2 23.2 mmol/L (22-28)
[2018-07-29] MEDS: metroNIDAZOLE IV 500 mg/100 ml 500 MG/100 ML BAG IVPB SCH ×3 (01:41→17:57)
[2018-07-29] MEDS: Dexmedetomidine Hydrochloride 200 MCG in Sodium Chloride 0.9% 48 ML IV PRN ×3 (03:00→21:47)
[2018-07-29] MEDS: Piperacillin/Tazobact 2.25 GM in Sodium Chloride 100 ML IVPB SCH ×4 (03:34→21:58)
[2018-07-29] MEDS: Heparin25000 units/250ml 1/2NS 25,000 UNITS/250 ML BAG IV PRN (03:50)
[2018-07-29 04:39] LABS: ABG ALLEN TEST POS; ARTERIAL BLOOD GAS HEMOGLOBIN 9.5 g/dL (11.7-17.4); ARTERIAL BLOOD GAS O2 SAT 99.2 % (95-98); ARTERIAL BLOOD GAS PCO2 33 mm/Hg (35-45); ARTERIAL BLOOD GAS PH 7.48 (7.35-7.45); ARTERIAL BLOOD GAS PO2 208 mm/Hg (80-100); ARTERIAL BLOOD GAS TCO2 25.6 mmol/L (22-28)
[2018-07-29 06:24] LABS: BASO % 0.1 % (0.0-2.0); EOS # 0.3 K/uL (0.0-0.7); EOS % 1.4 % (0.0-4.0); LYMPH # 0.9 K/uL (1.0-4.3); LYMPH % 3.8 % (20.0-40.0); MEAN CELL VOLUME 78.8 fL (81.0-99.0); MEAN CORPUSCULAR HEMOGLOBIN 26.1 pg (27.0-31.0); MEAN CORPUSCULAR HGB CONC 33.2 g/dL (33.0-37.0); MEAN PLATELET VOLUME 10.7 fL (7.2-11.7); MONO # 0.5 K/uL (0.0-0.8); MONO % 2.2 % (0.0-10.0); NEUT # 22.8 K/uL (1.8-7.0); NEUT % 92.5 % (50.0-75.0); NRBC % 0.1 % (0.0-2.0); PLATELET COUNT 95 K/uL (130-400); RBC 3.04 Mil/uL (3.80-5.20); RED CELL DISTRIBUTION WIDTH 14.2 % (11.5-14.5); WHITE BLOOD COUNT 24.6 K/uL (4.8-10.8)
[2018-07-29 07:13] LABS: ALB/GLOB RATIO 1.2 (1.0-2.1); ALBUMIN 2.5 g/dL (3.5-5.0); CALCIUM 5.7 mg/dl (8.6-10.4)
--- NOTE | 2018-07-29 07:26 | CP.PCM.PN ---
<Zak Steven - Last Filed: 07/29/18 13:32> Subjective - Date & Time of Evaluation Date of Evaluation: 07/29/18 Time of Evaluation: 07:25 - Subjective Subjective: Zak Steven DO, PGY-2: Nephrology Progress Note for Dr. Henson Patient was seen and examined at bedside. Patient is intubated, awake and responsive. She is on PRVC mode with an FIO2 of 60%, RR of 20, TV of 500 and PEEP of 5. Yesterday, the patient's acidosis was corrected by the ICU team. She is now on Norepinephrine, and off of vasopressin and phenylephrine this morning. Total urine output is 1945 per chart review. All interim events noted. Objective - Vital Signs/Intake and Output Vital Signs (last 24 hours): Temp Pulse Resp BP Pulse Ox 99.9 F H 76 20 104/70 96 07/28/18 20:00 07/29/18 05:45 07/29/18 05:45 07/29/18 05:45 07/29/18 05:45 Intake and Output: 07/29/18 07/29/18 06:59 18:59 Intake Total 2678.0 Output Total 455 Balance 2223.0 - Medications Medications: Current Medications Heparin Sodium/Sodium Chloride (Heparin 47230 Units/250ml 1/2 Normal Saline) 25,000 units in 250 mls @ 12.247 mls/hr IV .[id number] PRN; Protocol PRN Reason: ADJUST RATE PER PROTOCOL Last Admin: 07/29/18 03:50 Dose: 13 units/kg/hr, 9.435 mls/hr Norepinephrine Bitartrate 4 mg (/ Sodium Chloride) 250 mls @ 15 mls/hr IV .[id number] PRN; Protocol PRN Reason: TITRATE PER MD ORDER Last Admin: 07/29/18 05:45 Dose: 8 mcg/min, 30 mls/hr Cisatracurium Besylate 100 mg/ (Dextrose) 250 mls @ 32.66 mls/hr IV .Q7H40M PRN; Protocol PRN Reason: Agitation Last Titration: 07/28/18 19:02 Dose: 0 mcg/kg/min, 0 mls/hr Phenylephrine HCl 30 mg/ (Sodium Chloride) 250 mls @ 10 mls/hr IV .Q24H PRN; Protocol PRN Reason: TITRATE PER MD ORDER Last Titration: 07/28/18 15:37 Dose: 0 mcg/min, 0 mls/hr Vasopressin 40 units/ Sodium (Chloride) 40 mls @ 1.2 mls/hr IV .Q24H KACY; Protocol Last Titration: 07/28/18 19:24 Dose: 0 units/min, 0 mls/hr Dexmedetomidine HCl 200 mcg/ (Sodium Chloride) 50 mls @ 3.63 mls/hr IV TITR PRN; Protocol PRN Reason: Sedation Last Admin: 07/29/18 06:45 Dose: 1 mcg/kg/hr, 18.14 mls/hr Metronidazole (Flagyl) 500 mg in 100 mls @ 100 mls/hr IVPB Q8H KACY; Protocol Last Admin: 07/29/18 01:41 Dose: 100 mls/hr Vancomycin HCl (Vancocin 750mg/Ns 150 Ml) 150 mls @ 100 mls/hr IVPB Q24H KACY; Protocol Last Admin: 07/28/18 11:48 Dose: 100 mls/hr Piperacillin Sod/Tazobactam (Sod 2.25 gm/ Sodium Chloride) 100 mls @ 200 mls/hr IVPB Q6H KACY; Protocol Last Admin: 07/29/18 03:34 Dose: 200 mls/hr Sodium Bicarbonate 75 meq/ (Sodium Chloride) 1,075 mls @ 100 mls/hr IV .[id number] KACY Last Admin: 07/29/18 01:20 Dose: 100 mls/hr Lorazepam (Ativan) 2 mg IVP Q4 PRN PRN Reason: Anxiety Methylprednisolone (Solu-Medrol) 40 mg IVP TID KACY Last Admin: 07/28/18 17:43 Dose: 40 mg Pantoprazole Sodium (Protonix Inj) 40 mg IVP Q12 KACY Last Admin: 07/28/18 22:47 Dose: 40 mg - Labs Labs: 07/29/18 06:15 07/29/18 06:15 PT 25.8 SECONDS (9.7-12.2) H 07/28/18 10:00 INR 2.4 07/28/18 10:00 APTT 224 SECONDS (21-34) H* D 07/29/18 00:28 - Constitutional Appears: Non-toxic - Head Exam Head Exam: ATRAUMATIC, NORMOCEPHALIC - Eye Exam Eye Exam: EOMI, Normal appearance - ENT Exam ENT Exam: Mucous Membranes Moist - Neck Exam Neck Exam: Normal Inspection - Respiratory Exam Respiratory Exam: absent: Accessory Muscle Use Additional comments: breath sounds audible bilaterally - Cardiovascular Exam Cardiovascular Exam: RRR, +S1, +S2 - GI/Abdominal Exam GI & Abdominal Exam: Soft. absent: Guarding, Rebound - Extremities Exam Extremities Exam: Pedal Edema - Neurological Exam Neurological Exam: Awake - Psychiatric Exam Psychiatric exam: Normal Affect, Normal Mood - Skin Skin Exam: Dry, Intact, Normal Color, Warm Assessment and Plan - Assessment and Plan (Free Text) Assessment: 48 year old female with a past medical history of anxiety, possible UTI, on OCP who presented to [facility] after a syncopal episode at home and found to be in atrial fibrillation and was given cardizem and morphine. Patient then went into respiratory stress with bradycardia. ACLS protocol was initiated. Patient was intubated and ICU was consulted. Labs revealed a severe metabolic lactic acidosis, acute hypoxemic respiratory failure, and leukocytosis of 39,000 with 23 % bands despite being given fluids and CTA showed diffuse bilateral PE while duplex US of the LE showed an occlusive thrombus in the left common femoral vein. We will continue to follow this patient closely and treat aggressively with the PMD and the other consultants 1) Acute renal failure secondary to septic shock - Vancomycin random serum level ordered, follow up and re-dose Vancomycin as it is being held - Continue with current medical management - Dialysis not likely needed at this time 2) Hypocalcemia in a critically ill patient - Corrected Ca is 6.9 - 2 grams of Calcium Gluconate given - Follow up serum Ca tommorrow As always, avoid nephrotoxins and dose antibiotics renally <Pato Henson - Last Filed: 07/30/18 06:03> Objective - Vital Signs/Intake and Output Vital Signs (last 24 hours): Temp Pulse Resp BP Pulse Ox 97.6 F 67 20 116/78 98 07/30/18 00:00 07/30/18 02:10 07/30/18 02:10 07/30/18 02:10 07/30/18 02:10 Intake and Output: 07/29/18 07/30/18 18:59 06:59 Intake Total 1728.3 709.4 Output Total 346 135 Balance 1382.3 574.4 - Medications Medications: Current Medications Albuterol/Ipratropium (Duoneb 3 Mg/0.5 Mg (3 Ml) Ud) 3 ml INH RQ6 KACY Last Admin: 07/30/18 02:29 Dose: 3 ml Heparin Sodium/Sodium Chloride (Heparin 87744 Units/250ml 1/2 Normal Saline) 25,000 units in 250 mls @ 12.247 mls/hr IV .[id number] PRN; Protocol PRN Reason: ADJUST RATE PER PROTOCOL Last Titration: 07/29/18 23:45 Dose: 8 units/kg/hr, 5.806 mls/hr Norepinephrine Bitartrate 4 mg (/ Sodium Chloride) 250 mls @ 15 mls/hr IV .[id number] PRN; Protocol PRN Reason: TITRATE PER MD ORDER Last Titration: 07/30/18 04:00 Dose: 0 mcg/min, 0 mls/hr Cisatracurium Besylate 100 mg/ (Dextrose) 250 mls @ 32.66 mls/hr IV .Q7H40M PRN; Protocol PRN Reason: Agitation Last Titration: 07/28/18 19:02 Dose: 0 mcg/kg/min, 0 mls/hr Phenylephrine HCl 30 mg/ (Sodium Chloride) 250 mls @ 10 mls/hr IV .Q24H PRN; Protocol PRN Reason: TITRATE PER MD ORDER Last Titration: 07/28/18 15:37 Dose: 0 mcg/min, 0 mls/hr Vasopressin 40 units/ Sodium (Chloride) 40 mls @ 1.2 mls/hr IV .Q24H KACY; Protocol Last Admin: 07/29/18 12:08 Dose: Not Given Dexmedetomidine HCl 200 mcg/ (Sodium Chloride) 50 mls @ 3.63 mls/hr IV TITR PRN; Protocol PRN Reason: Sedation Last Admin: 07/30/18 01:33 Dose: 0.7 mcg/kg/hr, 12.7 mls/hr Metronidazole (Flagyl) 500 mg in 100 mls @ 100 mls/hr IVPB Q8H KACY; Protocol Last Admin: 07/30/18 01:32 Dose: 100 mls/hr Vancomycin HCl (Vancocin 750mg/Ns 150 Ml) 150 mls @ 100 mls/hr IVPB Q24H KACY; Protocol Last Admin: 07/28/18 11:48 Dose: 100 mls/hr Piperacillin Sod/Tazobactam (Sod 2.25 gm/ Sodium Chloride) 100 mls @ 200 mls/hr IVPB Q6H KACY; Protocol Last Admin: 07/30/18 04:13 Dose: 200 mls/hr Lorazepam (Ativan) 2 mg IVP Q4 PRN PRN Reason: Anxiety Last Admin: 07/29/18 21:57 Dose: 2 mg Methylprednisolone (Solu-Medrol) 40 mg IVP TID KACY Last Admin: 07/29/18 17:56 Dose: 40 mg Pantoprazole Sodium (Protonix Inj) 40 mg IVP Q12 KACY Last Admin: 07/29/18 21:58 Dose: 40 mg - Labs Labs: 07/29/18 06:15 07/29/18 06:15 PT 24.3 SECONDS (9.7-12.2) H 07/29/18 07:00 INR 2.2 07/29/18 07:00 APTT 43 SECONDS (21-34) H D 07/29/18 23:12 Attending/Attestation - Attestation I have personally seen and examined this patient.: Yes I have fully participated in the care of the patient.: Yes I have reviewed all pertinent clinical information, including history, physical exam and plan: Yes Notes (Text): Patient seen and examined; I agree with the resident's note as above with the following additions/edits: Patient with pmh of anxiety, possible recent UTI, admitted with respiratory arrest/bradycardia requiring ACLS protocol, found to have PE and with acute hypoxemic resp failure, septic shock and acute renal failure; BRIAN, oliguric renal failure consistent with ATN; hemodynamically much improved, now only on 1 vasopressor; urine output also appears to be improving though serum creatinine continues to increase; relatively stable electrolyte and volume status (decreased FIO2 requirement with no overt pulm vasc congestion on CXR); severe metabolic acidosis resolved with resolving lactic acidosis and bicarb drip; does have significant hypocalcemia, worsened due to bicarb drip (stopped); overall, no definite indication to initiate HD currently but will monitor closely; coagulopathy also remains a concern for placing HD catheter, will consult surgery if needed; Discussed with surgery and CCM team; source of sepsis may be cholecystitis and they are recommending cholecystostomy tube for now; on zosyn, dosed for CrCl < 20; vanco being held as random level elevated, should repeat level daily; -Giving another 2 g calcium gluconate IV -Maintain MAP > 65; -Avoid nephrotoxic agents; need to avoid IV contrast unless considered urgent; Thank you for this referral, we will be following closely;
[2018-07-29 07:43] LABS: INR 2.2; PROTHROMBIN TIME 24.3 SECONDS (9.7-12.2)
--- NOTE | 2018-07-29 08:03 | RAD ---
Chest x-ray single frontal view HISTORY: Intubation. Comparison: 07/28/2018 FINDINGS: Lines and tubes in stable position. Persistent small left pleural effusion with associated left basilar consolidative changes. Venous congestion. Persistent prominent vertically oriented linear consolidation versus atelectasis versus scarring at the right lung apex. Cardiomegaly. Degenerative changes in the spine. Impression: No significant interval change.
[2018-07-29 08:13] LABS: ANISOCYTOSIS SLIGHT; BANDS 15 % (0-2); HYPOCHROMIC SLIGHT; LYMPHOCYTE 2 % (20-40); METAMYELOCYTE 1 % (0-0); NEUTROPHIL 82 % (50-75); PLATELET ESTIMATE DECREASED (NORMAL); POIKILOCYTOSIS SLIGHT; TOTAL CELLS COUNTED 100
--- NOTE | 2018-07-29 08:41 | CP.PCM.PN ---
Subjective - Date & Time of Evaluation Date of Evaluation: 07/29/18 Time of Evaluation: 10:00 - Subjective Subjective: Cardiology Progress Note Airam Rasmussen, PGY1 note for Dr. Ba Patient seen and examined at bedside. Currently on levophed and holding heparin drip. Remains intubated. Objective - Vital Signs/Intake and Output Vital Signs (last 24 hours): Temp Pulse Resp BP Pulse Ox 99.9 F H 76 20 104/70 96 07/28/18 20:00 07/29/18 05:45 07/29/18 05:45 07/29/18 05:45 07/29/18 05:45 Intake and Output: 07/29/18 07/29/18 06:59 18:59 Intake Total 2678.0 Output Total 455 Balance 2223.0 - Medications Medications: Current Medications Heparin Sodium/Sodium Chloride (Heparin 48248 Units/250ml 1/2 Normal Saline) 25,000 units in 250 mls @ 12.247 mls/hr IV .[id number] PRN; Protocol PRN Reason: ADJUST RATE PER PROTOCOL Last Admin: 07/29/18 03:50 Dose: 13 units/kg/hr, 9.435 mls/hr Norepinephrine Bitartrate 4 mg (/ Sodium Chloride) 250 mls @ 15 mls/hr IV .[id number] PRN; Protocol PRN Reason: TITRATE PER MD ORDER Last Admin: 07/29/18 05:45 Dose: 8 mcg/min, 30 mls/hr Cisatracurium Besylate 100 mg/ (Dextrose) 250 mls @ 32.66 mls/hr IV .Q7H40M P RN; Protocol PRN Reason: Agitation Last Titration: 07/28/18 19:02 Dose: 0 mcg/kg/min, 0 mls/hr Phenylephrine HCl 30 mg/ (Sodium Chloride) 250 mls @ 10 mls/hr IV .Q24H PRN; Protocol PRN Reason: TITRATE PER MD ORDER Last Titration: 07/28/18 15:37 Dose: 0 mcg/min, 0 mls/hr Vasopressin 40 units/ Sodium (Chloride) 40 mls @ 1.2 mls/hr IV .Q24H KACY; Protocol Last Titration: 07/28/18 19:24 Dose: 0 units/min, 0 mls/hr Dexmedetomidine HCl 200 mcg/ (Sodium Chloride) 50 mls @ 3.63 mls/hr IV TITR PRN; Protocol PRN Reason: Sedation Last Admin: 07/29/18 06:45 Dose: 1 mcg/kg/hr, 18.14 mls/hr Metronidazole (Flagyl) 500 mg in 100 mls @ 100 mls/hr IVPB Q8H KACY; Protocol Last Admin: 07/29/18 01:41 Dose: 100 mls/hr Vancomycin HCl (Vancocin 750mg/Ns 150 Ml) 150 mls @ 100 mls/hr IVPB Q24H KACY; Protocol Last Admin: 07/28/18 11:48 Dose: 100 mls/hr Piperacillin Sod/Tazobactam (Sod 2.25 gm/ Sodium Chloride) 100 mls @ 200 mls/hr IVPB Q6H KACY; Protocol Last Admin: 07/29/18 03:34 Dose: 200 mls/hr Sodium Bicarbonate 75 meq/ (Sodium Chloride) 1,075 mls @ 100 mls/hr IV .[id number] KACY Last Admin: 07/29/18 01:20 Dose: 100 mls/hr Calcium Gluconate 2,000 mg/ (Sodium Chloride) 270 mls @ 125 mls/hr IVPB ONCE ONE Stop: 07/29/18 11:09 Lorazepam (Ativan) 2 mg IVP Q4 PRN PRN Reason: Anxiety Methylprednisolone (Solu-Medrol) 40 mg IVP TID KACY Last Admin: 07/28/18 17:43 Dose: 40 mg Pantoprazole Sodium (Protonix Inj) 40 mg IVP Q12 KACY Last Admin: 07/28/18 22:47 Dose: 40 mg - Labs Labs: 07/29/18 06:15 07/29/18 06:15 PT 24.3 SECONDS (9.7-12.2) H 07/29/18 07:00 INR 2.2 07/29/18 07:00 APTT 239 SECONDS (21-34) H* D 07/29/18 07:00 - Constitutional Appears: Other (arousable, lethargic) - Head Exam Additional comments: left sided frontal hematoma appreciated - Eye Exam Additional comments: sluggish - Respiratory Exam Respiratory Exam: Clear to Ausculation Bilateral. absent: Respiratory Distress - Cardiovascular Exam Cardiovascular Exam: REGULAR RHYTHM, +S1, +S2 - GI/Abdominal Exam GI & Abdominal Exam: Normal Bowel Sounds. absent: Guarding, Rigid - Extremities Exam Additional comments: swelling noted B/L - Neurological Exam Neurological Exam: absent: Alert, Awake Additional comments: follow simple commands, lethargic - Skin Skin Exam: Dry Additional comments: hematoma noted at central line insertion site Assessment and Plan - Assessment and Plan (Free Text) Assessment: This is a 48 year old female with PMH of anxiety presenting to the ED s/p witnessed syncopal episode after return from [place] on bus. Prognosis is guarded. Plan: B/L P.E., -currently on levophed @ 8 -echo showed normal LV EF, mild TR, pulmonary hypertension and RV dilated -will not do EKOS at this time due to unknown status of prothrombotic state -CTA showed diffuse bilateral pulmonary emboli of B/L central and segmental pulmonary arteries, pulmonary venous congestion compatible with CHF vs left basilar atelectasis vs pulmonary infarct -D-dimer > 5250, PT/INR/PTT elevated, elevated fibrinogen products, concern for for bleeding -s/p respiratory arrest, ACLS performed, currently intubated -heparin drip currently on hold -tPA contraindicated -LE duplex final read pending Afib -EKG on admission showed afib with RVR at 146bpm, uncertain if new finding Case discussed with attending, further recommendations per Dr. Ba
--- NOTE | 2018-07-29 08:55 | CP.PCM.PN ---
Subjective - Date & Time of Evaluation Date of Evaluation: 07/29/18 Time of Evaluation: 08:30 - Subjective Subjective: Patient was awake, interacting with a family member at bedside. This is the first time I myself personally have seen her awake and interacting. Was not readily following commands but she was able to look at me and move arms this morning. She remains intubated at this time and on small amount of precedex. The patient remains on pressor medications Yesterday there was consideration if the patient would need HD, however pH improved. She remains on bicarb ggt Creatine is still rising this morning. The urine out put is 1065 yesterday and 810 this morning. Also her PTTs have always been very high and so when we restart heparin I placed orders to restart at just 6 units and see how the PTTs go from there. As of now it's always been on and off heparin ggts due to the PTTs being high. Cultures are negative, remains on the IV Zosyn and Vanco. Yesterday Flagyl IV was added since there is reported diarrhea. Tmax 100.9, still has high WBC and bandemia Objective - Vital Signs/Intake and Output Vital Signs (last 24 hours): Temp Pulse Resp BP Pulse Ox 99.9 F H 76 20 104/70 96 07/28/18 20:00 07/29/18 05:45 07/29/18 05:45 07/29/18 05:45 07/29/18 05:45 Intake and Output: 07/29/18 07/29/18 06:59 18:59 Intake Total 2678.0 Output Total 455 Balance 2223.0 - Medications Medications: Current Medications Heparin Sodium/Sodium Chloride (Heparin 18527 Units/250ml 1/2 Normal Saline) 25,000 units in 250 mls @ 12.247 mls/hr IV .V35V11M PRN; Protocol PRN Reason: ADJUST RATE PER PROTOCOL Last Admin: 07/29/18 03:50 Dose: 13 units/kg/hr, 9.435 mls/hr Norepinephrine Bitartrate 4 mg (/ Sodium Chloride) 250 mls @ 15 mls/hr IV .[id number] PRN; Protocol PRN Reason: TITRATE PER MD ORDER Last Admin: 07/29/18 05:45 Dose: 8 mcg/min, 30 mls/hr Cisatracurium Besylate 100 mg/ (Dextrose) 250 mls @ 32.66 mls/hr IV .Q7H40M PRN; Protocol PRN Reason: Agitation Last Titration: 07/28/18 19:02 Dose: 0 mcg/kg/min, 0 mls/hr Phenylephrine HCl 30 mg/ (Sodium Chloride) 250 mls @ 10 mls/hr IV .Q24H PRN; Protocol PRN Reason: TITRATE PER MD ORDER Last Titration: 07/28/18 15:37 Dose: 0 mcg/min, 0 mls/hr Vasopressin 40 units/ Sodium (Chloride) 40 mls @ 1.2 mls/hr IV .Q24H KACY; Protocol Last Titration: 07/28/18 19:24 Dose: 0 units/min, 0 mls/hr Dexmedetomidine HCl 200 mcg/ (Sodium Chloride) 50 mls @ 3.63 mls/hr IV TITR PRN; Protocol PRN Reason: Sedation Last Admin: 07/29/18 06:45 Dose: 1 mcg/kg/hr, 18.14 mls/hr Metronidazole (Flagyl) 500 mg in 100 mls @ 100 mls/hr IVPB Q8H KACY; Protocol Last Admin: 07/29/18 01:41 Dose: 100 mls/hr Vancomycin HCl (Vancocin 750mg/Ns 150 Ml) 150 mls @ 100 mls/hr IVPB Q24H KACY; Protocol Last Admin: 07/28/18 11:48 Dose: 100 mls/hr Piperacillin Sod/Tazobactam (Sod 2.25 gm/ Sodium Chloride) 100 mls @ 200 mls/hr IVPB Q6H KACY; Protocol Last Admin: 07/29/18 03:34 Dose: 200 mls/hr Sodium Bicarbonate 75 meq/ (Sodium Chloride) 1,075 mls @ 100 mls/hr IV .[id number] KACY Last Admin: 07/29/18 01:20 Dose: 100 mls/hr Calcium Gluconate 2,000 mg/ (Sodium Chloride) 270 mls @ 125 mls/hr IVPB ONCE ONE Stop: 07/29/18 11:09 Lorazepam (Ativan) 2 mg IVP Q4 PRN PRN Reason: Anxiety Methylprednisolone (Solu-Medrol) 40 mg IVP TID KACY Last Admin: 07/28/18 17:43 Dose: 40 mg Pantoprazole Sodium (Protonix Inj) 40 mg IVP Q12 KACY Last Admin: 07/28/18 22:47 Dose: 40 mg - Labs Labs: 07/29/18 06:15 07/29/18 06:15 PT 24.3 SECONDS (9.7-12.2) H 07/29/18 07:00 INR 2.2 07/29/18 07:00 APTT 239 SECONDS (21-34) H* D 07/29/18 07:00 - Constitutional Appears: Unkempt, Chronically Ill - Head Exam Additional comments: echymosis neck and eyelid - Eye Exam Eye Exam: Periorbital swelling Additional comments: Echymosis - Neck Exam Additional comments: Echymosis as mentioned before near the IJ area. No active bleeding - Respiratory Exam Additional comments: Mechanical intubation - GI/Abdominal Exam GI & Abdominal Exam: Soft. absent: Guarding, Rigid - Neurological Exam Neurological Exam: Alert, Altered, Awake - Psychiatric Exam Psychiatric exam: Normal Affect, Normal Mood - Skin Skin Exam: Warm Assessment and Plan - Assessment and Plan (Free Text) Assessment: A/P: This is a 48 year old female patient who unfortunately has bilateral large PE and currently is intubated at this time. Per family members, the patient has a past medical history of anxiety who presented with worsening shortness of breath and syncope. Acute Hypercapnic Respiratory Failure from Bilateral Pulmonary Embolism 07/29: Yesterday there was consideration for HD since she was so acidotic however pH later improved. Creatine is still elevated. Remains on bicarb ggt. She was again on the heparin ggt this morning but then he ld due to high PTTs, the PTTs have always been high so I placed ordereds to restart at much smaler heparin drip at just 6 units instead and see how the PTTs are. 07/28: IVF changed to 1/2 NS @ 200 cc /hr with 50 meq of NaHCO3, she is still acidotic on ABG despite being on 3 pressor medications as well as on mechanical ventilation. Likely combination of the bilateral PE and also the sepsis / DIC. She was on heparin ggt overnight then it was discontinued this morning. Currently not a candidate for direct thrombolytic administration due to bleeding concern. 07/27: Spoke with family member Darshan at bedside and he understands prognosis is poor. At this time the patient remains intubated with minimal reflexes illicited on exam. Intubated, s/p respiratory arrest x 2 -ABG: pH <6.80, PO2 29, PCO2 103, Lactate 17.6 CT head showed left forhead swelling CTA chest showed diffuse bilateral pulmonary emboli involving bilateral central and segmental pulmonary arteries, cardiac silhouette enlarged, there is evidence of pulmonary venous congestion compatible with CHF, left basilar atelectasis vs pulmonary infarct (official report pending) Atrial Fibrillation with RVR 10: As of this morning was NSR on the telemetry and HR mostly in the 70s to 90s range. On heparin ggt, however often has high PTTs 10: Likley secondary to the bilateral PEs, they asked IR to evaluate however she was not a candidate for direct cathter thrombolysis Initial EKG showed afib with rate of 146 bpm Patient on heparin drip Sepsis / DIC / Abdominal Pain 10: IV Flagyl was added yesterday as she is having diarrhea. This being said the CDIFF was negative. She does have fever, Tmax was 100.9 There are elevated LFTs either from possible cholecytitis or from shock liver from low perfusion earlier. 10: Cultures still pending at this time, she remains on IV pressors and also the urine out put was only 1065 mL 10/: Elevated WBC, bandemia, and hypothermic Antibiotics started on Zosyn and Vancomycin Also blood culture, urine culture, and IVF boluses. -CT abd/pelvis showed periportal edema and pericholecystic/peripancreatic fluid, probably related to fluid overload, exclude hepatocellular disease. Severe enteritis. Infectious and inflammatory etiologies are considered. Large amount of fecal material is seen throughout colon (official report pending) Hematuria -Obed blood noted in brady -UA and urine culture ordered
--- NOTE | 2018-07-29 08:58 | CON ---
DATE: 07/28/2018 The patient's doctor is Dr. Fraga and the consult was called by Dr. Brand. HISTORY OF PRESENT ILLNESS: This patient is a 48-year-old female. She is admitted in intensive care unit right now. She came in with epigastric and chest pain. 911 was called as the doorman found her clenching her chest and collapsing and she was unresponsive, was brought in here. She was in atrial fibrillation. They gave Cardizem. She had CT done, which showed extensive bilateral PE. There was some travel history. She is from [place] and she comes here. 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 She is on multiple antibiotics. At this time, she is also on bicarb and she is on vasopressors and the pressure is still low and she also has been on heparin. During the night, she had poppy blood in the urine, so they had to stop the heparin and I am asked to evaluate as her white count still remains high, and she is also going to be started on dialysis very soon. They are waiting for dialysis catheter to be placed and they are going to give FFP before, and I also met Dr. Golden Vasquez, who says that this patient may be in DIC and she is in renal failure, so there is a multiorgan failure going on here. PAST MEDICAL HISTORY: Significant for anxiety. PAST SURGICAL HISTORY: Bariatric surgery, x2, abdominoplasty, breast implant. SOCIAL HISTORY: Negative for smoking or drinking or drug abuse. She recently moved from [place] two months ago. She lives with her niece. FAMILY HISTORY: Unobtainable. MEDICATIONS: She was on Protonix 40 mg and Cipro 500 mg, and she was on oral contraceptives. Her medications at the present time; she is on cisatracurium and dexmedetomidine, neuromuscular. They are to sedate her while she is on the ventilator. She is on heparin subcutaneous, which is there. She is on lorazepam p.r.n., methylprednisolone 40 mg IV push which was started yesterday, metronidazole 500 every 8 hours. She is on norepinephrine, pantoprazole, phenylephrine. She is on Zosyn 2.25 every 6 hours; sodium bicarb, she is getting 150 every 7 hours; vancomycin 750 every 24 hours; and she is on vasopressin. So, there are multiple medications. ALLERGIES: SHE IS NOT ALLERGIC TO ANY MEDICINES. REVIEW OF SYSTEMS: She was admitted with altered mental status, intubated. PHYSICAL EXAMINATION VITAL SIGNS: T-max is 100.6, heart rate of 95, blood pressure is 133/64, respirations are 30. HEENT: Atraumatic and normocephalic. She is sedated. She does have ecchymosis on the left side of her left eye. Appears to have periorbital ecchymosis. NECK: Supple, otherwise. LUNGS: Clear. There are no crackles or rales heard. HEART: S1 and S2. Regular. ABDOMEN: Flabby, though soft and nontender. No guarding. No rigidity present. EXTREMITIES: No edema. LABORATORY DATA: Labs are noted. Labs show white count is 29 today, it was 39.7 this morning. Now, hemoglobin is 8.6, hematocrit 27.4, platelet count has decreased to 102, and bands are 16 at this time. INR is 2.4. She had a very bad pH this morning of 7.04, but now it is 7.48. CO2 is 17.1. She is still acidotic. Lactate level is 5.1. Micro-brown, blood cultures are negative. MRSA is negative. Urine cultures negative. She had abdominal ultrasound today, which showed evaluating for cholecystis, gallbladder wall thickening and edema, pericholecystic fluid. Technically limited echogenic liver in the setting of parenchyma, gallbladder distention, gallbladder wall thickening, edema, pericholecystic fluid. Sonographic evidence cannot be assessed due to the patient's condition, correlate clinically. Echogenic bilateral renal parenchyma noted, there is right pleural effusion, small abdominal right lower fluid. It is not clear whether she has it or not, this pericholecystic fluid could be part of the other fluid present. Chest x-ray showed left basilar atelectasis, favored over filtrate with small pleural effusion, linear atelectasis, medial right apex, adequate reposition of left central venous line. She does have DVT and pulmonary embolism. There is acute DVT of left common femoral with severe reduction of venous return. IMPRESSION AND PLAN: This patient is acutely ill status post respiratory arrest, now with respiratory failure, atrial fibrillation, bilateral deep venous thrombosis with high white count. Cultures are all negative at this time. She has acute renal failure, bandemia, acidosis. She is in disseminated intravascular coagulation and she is on heparin now for the deep venous thrombosis as well as pulmonary embolism. I would continue the same antibiotics at this time because meropenem will decrease the platelets further and cause more problems. Vancomycin, we can dose it after the dialysis so that we do not give too much of it, but at this time, she did get one dose today and she is on 750 daily. We will follow and would like to get a serum culture if any to see if there is something else grows out of it; otherwise, we will continue the same treatment. Actually, she is intubated, so we will follow closely CBC as well as the disseminated intravascular coagulation profile. Smitha Slater MD
[2018-07-29] MEDS: MethylPREDNISolone 40 mg Vial IVP SCH ×3 (09:17→17:56)
[2018-07-29 10:43] LABS: VENOUS BLOOD GAS BASE EXCESS -7.6 mmol/L (0.0-2.0); VENOUS BLOOD GAS PCO2 26 mmHg (40-60); VENOUS BLOOD GAS PO2 40 mm/Hg (30-55); VENOUS BLOOD PH 7.39 (7.32-7.43)
--- NOTE | 2018-07-29 12:49 | CARD ---
APPROVED REPORT Date of service: 07/27/2018 EKG Measurement Heart [id number] <Conclusion> Sinus tachycardia Low voltage QRS Cannot rule out Inferior infarct, age undetermined Abnormal ECG
--- NOTE | 2018-07-29 12:49 | CARD ---
APPROVED REPORT Date of service: 07/27/2018 EKG Measurement Heart [id number] <Conclusion> Atrial fibrillation with rapid ventricular response with premature ventricular or aberrantly conducted complexes Low voltage QRS Nonspecific ST abnormality Abnormal ECG
--- NOTE | 2018-07-29 12:50 | CARD ---
APPROVED REPORT Date of service: 07/27/2018 EKG Measurement Heart [id number] <Conclusion> Atrial flutter Right bundle branch block Lateral infarct, age undetermined Abnormal ECG
--- NOTE | 2018-07-29 12:51 | CARD ---
APPROVED REPORT Date of service: 07/27/2018 EKG Measurement Heart [id number] <Conclusion> Atrial fibrillation Low voltage QRS Incomplete right bundle branch block Nonspecific ST abnormality Abnormal ECG
[2018-07-29] MEDS: Albuterol-Ipratrop 3 mg / 0.5 (3 ml) UD INH SCH ×2 (13:30→19:00)
--- NOTE | 2018-07-29 13:59 | CP.CCUPN ---
<Corrie Chowdary L - Last Filed: 07/29/18 16:11> CCU Subjective - Physician Review Subjective (Free Text): Resident Critical Care Progress Note Patient examined at bedside. Patient is s/p intubation, sedated on Precedex, however is alert, awake, able to communicate with writing. Patient is currently on Levophed drip only. Bicarb drip discontinued. Critical Care Time Spent (in minutes): 35 CCU Objective - Vital Signs / Intake & Output Vital Signs (Last 4 hours): Vital Signs Temp Pulse Resp BP Pulse Ox 07/29/18 12:55 77 20 108/75 99 07/29/18 12:25 61 19 117/73 97 07/29/18 12:00 97.3 F L 07/29/18 11:55 62 18 117/78 96 07/29/18 11:27 73 21 115/73 98 07/29/18 10:55 68 16 110/72 96 07/29/18 10:25 63 16 112/70 96 07/29/18 10:00 67 16 109/72 99 Intake and Output (Last 8hrs): Intake & Output 07/28/18 07/29/18 07/29/18 22:59 06:59 14:59 Intake Total 2149.0 1894.7 1022.6 Output Total 305 305 256 Balance 1844.0 1589.7 766.6 Weight 202 lb 8 oz Intake: IV 406 389.6 160 Intake, IV Amount 1743.0 1505.1 862.6 Left Distal Port IJ - Y- 34.3 114.2 12.6 Port Left Distal Port Internal 96.5 71.4 22.0 Jugular Left IJ TLC 250 Left Medial Port IJ Y- 140 200 518 Port Left Medial Port Internal 1200 900 100 Jugular Left Proximal Port IJ Y- 22.2 219.5 210 Port Output: Urine 305 305 256 Urethral (Becerril) 305 305 256 Other: # Bowel Movements 1 1 1 - Physical Exam Head: Positive for: Normocephalic, Ecchymosis Pupils: Positive for: PERRL Extroacular Muscles: Positive for: EOMI Conjunctiva: Positive for: Normal Mouth: Positive for: Dry Pharnyx: Positive for: Other (ett in place) Neck: Positive for: Trachea Midline Respiratory/Chest: Positive for: Good Air Exchange, Decreased Breath Sounds Cardiovascular: Positive for: Regular Rate and Rhythm, Normal S1, S2, Tachycardic Abdomen: Positive for: Tenderness (mild tenderness in right upper quadrant ), Normal Bowel Sounds Upper Extremity: Positive for: Other (ecchymosis surrounding IV sites ). Negative for: Cyanosis Lower Extremity: Positive for: Edema. Negative for: CALF TENDERNESS, T emperature Abnormalties Skin: Positive for: Warm, Dry, Normal Color Psychiatric: Positive for: Alert, Anxious - Medications Active Medications: Active Medications Generic Name Dose Route Start Last Admin Trade Name Freq PRN Reason Stop Dose Admin Albuterol/Ipratropium 3 ml 07/29/18 14:00 Duoneb 3 Mg/0.5 Mg (3 Ml) Ud INH RQ6 KACY Heparin Sodium/Sodium Chloride 25,000 units in 250 mls @ 12.247 mls/hr 07/27/18 07:09 07/29/18 10:00 Heparin 82306 Units/250ml 1/2 Normal Saline IV 6 units/kg/hr .[id number] PRN 4.355 mls/hr ADJUST RATE PER PROTOCOL Titration Protocol 16.875 UNITS/KG/HR Norepinephrine Bitartrate 4 mg 250 mls @ 15 mls/hr 07/27/18 07:39 07/29/18 05:45 / Sodium Chloride IV 8 mcg/min .[id number] PRN 30 mls/hr TITRATE PER MD ORDER Administration Protocol 4 MCG/MIN Cisatracurium Besylate 100 mg/ 250 mls @ 32.66 mls/hr 07/27/18 08:24 07/28/18 19:02 Dextrose IV 0 mcg/kg/min .[id number] PRN 0 mls/hr Agitation Titration Protocol 3 MCG/KG/MIN Phenylephrine HCl 30 mg/ 250 mls @ 10 mls/hr 07/27/18 09:40 07/28/18 15:37 Sodium Chloride IV 0 mcg/min .Q24H PRN 0 mls/hr TITRATE PER MD ORDER Titration Protocol 20 MCG/MIN Vasopressin 40 units/ Sodium 40 mls @ 1.2 mls/hr 07/27/18 11:00 07/29/18 12:08 Chloride IV Not Given .Q24H KACY Protocol 0.02 UNITS/MIN Dexmedetomidine HCl 200 mcg/ 50 mls @ 3.63 mls/hr 07/27/18 16:08 07/29/18 10:08 Sodium Chloride IV 0.09 mcg/kg/hr TITR PRN 1.8 mls/hr Sedation Titration Protocol 0.2 MCG/KG/HR Metronidazole 500 mg in 100 mls @ 100 mls/hr 07/27/18 18:30 07/29/18 09:30 Flagyl IVPB 100 mls/hr Q8H KACY Administration Protocol Vancomycin HCl 150 mls @ 100 mls/hr 07/28/18 12:00 07/28/18 11:48 Vancocin 750mg/Ns 150 Ml IVPB 100 mls/hr Q24H KACY Administration Protocol Piperacillin Sod/Tazobactam 100 mls @ 200 mls/hr 07/28/18 10:00 07/29/18 10:11 Sod 2.25 gm/ Sodium Chloride IVPB 200 mls/hr Q6H KACY Administration Protocol Lorazepam 2 mg 07/27/18 08:25 Ativan IVP Q4 PRN Anxiety Methylprednisolone 40 mg 07/27/18 10:00 07/29/18 09:17 Solu-Medrol IVP 40 mg TID KACY Administration Pantoprazole Sodium 40 mg 07/27/18 10:00 07/29/18 09:17 Protonix Inj IVP 40 mg Q12 KACY Administration - Patient Studies Lab Studies: Microbiology Studies 07/27/18 18:26 Stool Culture - Final Stool NO SALMONELLA, SHIGELLA OR CAMPYLOBACTER ISOLATED. 07/27/18 10:29 Blood Culture - Preliminary Blood-Venous NO GROWTH AFTER 48 HOURS 07/27/18 10:04 Blood Culture - Preliminary Blood-Venous NO GROWTH AFTER 48 HOURS 07/27/18 09:18 MRSA Culture (Admit) - Final Naris MRSA NOT DETECTED Lab Studies 07/29/18 07/29/18 07/29/18 Range/Units 10:39 07:00 06:15 WBC (4.8-10.8) K/uL RBC (3.80-5.20) Mil/uL Hgb (11.0-16.0) g/dL Hct (34.0-47.0) % MCV (81.0-99.0) fL MCH (27.0-31.0) pg MCHC (33.0-37.0) g/dL RDW (11.5-14.5) % Plt Count (130-400) K/uL MPV (7.2-11.7) fL Neut % (Auto) (50.0-75.0) % Lymph % (Auto) (20.0-40.0) % Milam % (Auto) (0.0-10.0) % Eos % (Auto) (0.0-4.0) % Baso % (Auto) (0.0-2.0) % Neut # (Auto) (1.8-7.0) K/uL Lymph # (Auto) (1.0-4.3) K/uL Milam # (Auto) (0.0-0.8) K/uL Eos # (Auto) (0.0-0.7) K/uL Baso # (Auto) (0.0-0.2) K/uL Neutrophils % (Manual) (50-75) % Band Neutrophils % (0-2) % Lymphocytes % (Manual) (20-40) % Monocytes % (Manual) Metamyelocytes % (0-0) % Platelet Estimate (NORMAL) Hypochromasia (manual) Poikilocytosis (manual Anisocytosis (manual) PT 24.3 H (9.7-12.2) SECONDS INR 2.2 APTT 239 H* D (21-34) SECONDS Puncture Site pCO2 (35-45) mm/Hg pO2 40 (80-100) mm/Hg HCO3 (21-28) mmol/L ABG pH (7.35-7.45) ABG Total CO2 (22-28) mmol/L ABG O2 Saturation (95-98) % ABG Base Excess (-2.0-3.0) mmol/L ABG Hemoglobin (11.7-17.4) g/dL ABG Carboxyhemoglobin (0.5-1.5) % POC ABG HHb (Measured) (0.0-5.0) % ABG Methemoglobin (0.0-3.0) % Bryce Test ABG Potassium (3.6-5.2) mmol/L VBG pH 7.39 (7.32-7.43) VBG pCO2 26 L (40-60) mmHg VBG HCO3 18.4 mmol/L VBG Total CO2 16.5 L (22-28) mmol/L VBG O2 Sat (Calc) 80.1 H (40-65) % VBG Base Excess -7.6 L (0.0-2.0) mmol/L VBG Potassium 1.8 L* (3.6-5.2) mmol/L A-a O2 Difference mm/Hg Respiratory Index Hgb O2 Saturation (95.0-98.0) % Sodium 157.0 H 154 H (132-148) mmol/l Chloride 133.0 H 115 H (98-107) mmol/L Glucose 94 (65-105) mg/dl Lactate 1.5 (0.7-2.1) mmol/L Vent Mode Mechanical Rate FiO2 60.0 % Tidal Volume PEEP 5 Crit Value Called To Dr kurtz Crit Value Called By [facility] Crit Value Read Back Y Blood Gas Notified Time 1045 Potassium 3.8 (3.6-5.2) mmol/L Carbon Dioxide 25 (22-30) mmol/L Anion Gap 17 (10-20) BUN 44 H (7-17) mg/dL Creatinine 4.0 H (0.7-1.2) mg/dL Est GFR ( Amer) 15 Est GFR (Non-Af Amer) 12 Random Glucose 142 H (65-105) mg/dL Calcium 5.7 L* (8.6-10.4) mg/dl Phosphorus 4.5 (2.5-4.5) mg/dL Magnesium 1.9 (1.6-2.3) mg/dL Total Bilirubin 0.7 (0.2-1.3) mg/dL AST 923 H (14-36) U/L ALT 534 H D (9-52) U/L Alkaline Phosphatase 47 (38-126) U/L Total Protein 4.6 L (6.3-8.3) g/dL Albumin 2.5 L (3.5-5.0) g/dL Globulin 2.1 L (2.2-3.9) gm/dL Albumin/Globulin Ratio 1.2 (1.0-2.1) Arterial Blood Potassium (3.6-5.2) mmol/L Venous Blood Potassium 1.8 L* (3.6-5.2) mmol/L 07/29/18 07/29/18 07/29/18 Range/Units 06:15 04:30 00:28 WBC 24.6 H (4.8-10.8) K/uL RBC 3.04 L (3.80-5.20) Mil/uL Hgb 8.0 L (11.0-16.0) g/dL Hct 24.0 L (34.0-47.0) % MCV 78.8 L D (81.0-99.0) fL MCH 26.1 L (27.0-31.0) pg MCHC 33.2 (33.0-37.0) g/dL RDW 14.2 (11.5-14.5) % Plt Count 95 L (130-400) K/uL MPV 10.7 (7.2-11.7) fL Neut % (Auto) 92.5 H (50.0-75.0) % Lymph % (Auto) 3.8 L (20.0-40.0) % Milam % (Auto) 2.2 (0.0-10.0) % Eos % (Auto) 1.4 (0.0-4.0) % Baso % (Auto) 0.1 (0.0-2.0) % Neut # (Auto) 22.8 H (1.8-7.0) K/uL Lymph # (Auto) 0.9 L (1.0-4.3) K/uL Milam # (Auto) 0.5 (0.0-0.8) K/uL Eos # (Auto) 0.3 (0.0-0.7) K/uL Baso # (Auto) 0.0 (0.0-0.2) K/uL Neutrophils % (Manual) 82 H (50-75) % Band Neutrophils % 15 H* (0-2) % Lymphocytes % (Manual) 2 L (20-40) % Monocytes % (Manual) TEST NOT PERFORMED Metamyelocytes % 1 H (0-0) % Platelet Estimate Decreased L (NORMAL) Hypochromasia (manual) Slight Poikilocytosis (manual Slight Anisocytosis (manual) Slight PT (9.7-12.2) SECONDS INR APTT 224 H* D (21-34) SECONDS Puncture Site Rr pCO2 33 L (35-45) mm/Hg pO2 208 H (80-100) mm/Hg HCO3 26.0 (21-28) mmol/L ABG pH 7.48 H (7.35-7.45) ABG Total CO2 25.6 (22-28) mmol/L ABG O2 Saturation 99.2 H (95-98) % ABG Base Excess 1.3 (-2.0-3.0) mmol/L ABG Hemoglobin 9.5 L (11.7-17.4) g/dL ABG Carboxyhemoglobin 0.9 (0.5-1.5) % POC ABG HHb (Measured) 0.8 (0.0-5.0) % ABG Methemoglobin 1.0 (0.0-3.0) % Bryce Test Pos ABG Potassium (3.6-5.2) mmol/L VBG pH (7.32-7.43) VBG pCO2 (40-60) mmHg VBG HCO3 mmol/L VBG Total CO2 (22-28) mmol/L VBG O2 Sat (Calc) (40-65) % VBG Base Excess (0.0-2.0) mmol/L VBG Potassium (3.6-5.2) mmol/L A-a O2 Difference 179.0 mm/Hg Respiratory Index 0.9 Hgb O2 Saturation 97.3 (95.0-98.0) % Sodium (132-148) mmol/l Chloride (98-107) mmol/L Glucose (65-105) mg/dl Lactate (0.7-2.1) mmol/L Vent Mode Prvc Mechanical Rate 20 FiO2 60.0 % Tidal Volume 500 PEEP 5 Crit Value Called To Crit Value Called By Crit Value Read Back Blood Gas Notified Time Potassium (3.6-5.2) mmol/L Carbon Dioxide (22-30) mmol/L Anion Gap (10-20) BUN (7-17) mg/dL Creatinine (0.7-1.2) mg/dL Est GFR ( Amer) Est GFR (Non-Af Amer) Random Glucose (65-105) mg/dL Calcium (8.6-10.4) mg/dl Phosphorus (2.5-4.5) mg/dL Magnesium (1.6-2.3) mg/dL Total Bilirubin (0.2-1.3) mg/dL AST (14-36) U/L ALT (9-52) U/L Alkaline Phosphatase (38-126) U/L Total Protein (6.3-8.3) g/dL Albumin (3.5-5.0) g/dL Globulin (2.2-3.9) gm/dL Albumin/Globulin Ratio (1.0-2.1) Arterial Blood Potassium (3.6-5.2) mmol/L Venous Blood Potassium (3.6-5.2) mmol/L 07/28/18 07/28/18 07/28/18 Range/Units 23:15 17:58 16:34 WBC (4.8-10.8) K/uL RBC (3.80-5.20) Mil/uL Hgb (11.0-16.0) g/dL Hct (34.0-47.0) % MCV (81.0-99.0) fL MCH (27.0-31.0) pg MCHC (33.0-37.0) g/dL RDW (11.5-14.5) % Plt Count (130-400) K/uL MPV (7.2-11.7) fL Neut % (Auto) (50.0-75.0) % Lymph % (Auto) (20.0-40.0) % Milam % (Auto) (0.0-10.0) % Eos % (Auto) (0.0-4.0) % Baso % (Auto) (0.0-2.0) % Neut # (Auto) (1.8-7.0) K/uL Lymph # (Auto) (1.0-4.3) K/uL Milam # (Auto) (0.0-0.8) K/uL Eos # (Auto) (0.0-0.7) K/uL Baso # (Auto) (0.0-0.2) K/uL Neutrophils % (Manual) (50-75) % Band Neutrophils % (0-2) % Lymphocytes % (Manual) (20-40) % Monocytes % (Manual) Metamyelocytes % (0-0) % Platelet Estimate (NORMAL) Hypochromasia (manual) Poikilocytosis (manual Anisocytosis (manual) PT (9.7-12.2) SECONDS INR APTT 45 H D (21-34) SECONDS Puncture Site Rr Lb pCO2 30 L 22 L (35-45) mm/Hg pO2 180 H 310 H (80-100) mm/Hg HCO3 24.3 21.1 (21-28) mmol/L ABG pH 7.48 H 7.48 H (7.35-7.45) ABG Total CO2 23.2 17.1 L (22-28) mmol/L ABG O2 Saturation 99.0 H 100.8 H (95-98) % ABG Base Excess -0.9 -5.0 L (-2.0-3.0) mmol/L ABG Hemoglobin 8.0 L (11.7-17.4) g/dL ABG Carboxyhemoglobin 0.5 (0.5-1.5) % POC ABG HHb (Measured) 1.0 (0.0-5.0) % ABG Methemoglobin 0.6 (0.0-3.0) % Bryce Test Pos Na ABG Potassium 3.2 L (3.6-5.2) mmol/L VBG pH (7.32-7.43) VBG pCO2 (40-60) mmHg VBG HCO3 mmol/L VBG Total CO2 (22-28) mmol/L VBG O2 Sat (Calc) (40-65) % VBG Base Excess (0.0-2.0) mmol/L VBG Potassium (3.6-5.2) mmol/L A-a O2 Difference 210.0 376.0 mm/Hg Respiratory Index 1.2 1.2 Hgb O2 Saturation 97.9 (95.0-98.0) % Sodium 151.0 H (132-148) mmol/l Chloride 125.0 H (98-107) mmol/L Glucose 153 H (65-105) mg/dl Lactate 5.1 H* (0.7-2.1) mmol/L Vent Mode Prvc Prvc Mechanical Rate 20 20 FiO2 60.0 100.0 % Tidal Volume 500 500 PEEP 5 5 Crit Value Called To Dr kurtz Crit Value Called By Nomi valentine Crit Value Read Back Y Blood Gas Notified Time 1637 Potassium (3.6-5.2) mmol/L Carbon Dioxide (22-30) mmol/L Anion Gap (10-20) BUN (7-17) mg/dL Creatinine (0.7-1.2) mg/dL Est GFR ( Amer) Est GFR (Non-Af Amer) Random Glucose (65-105) mg/dL Calcium (8.6-10.4) mg/dl Phosphorus (2.5-4.5) mg/dL Magnesium (1.6-2.3) mg/dL Total Bilirubin (0.2-1.3) mg/dL AST (14-36) U/L ALT (9-52) U/L Alkaline Phosphatase (38-126) U/L Total Protein (6.3-8.3) g/dL Albumin (3.5-5.0) g/dL Globulin (2.2-3.9) gm/dL Albumin/Globulin Ratio (1.0-2.1) Arterial Blood Potassium 3.2 L (3.6-5.2) mmol/L Venous Blood Potassium (3.6-5.2) mmol/L 07/28/18 Range/Units 16:21 WBC (4.8-10.8) K/uL RBC (3.80-5.20) Mil/uL Hgb (11.0-16.0) g/dL Hct (34.0-47.0) % MCV (81.0-99.0) fL MCH (27.0-31.0) pg MCHC (33.0-37.0) g/dL RDW (11.5-14.5) % Plt Count (130-400) K/uL MPV (7.2-11.7) fL Neut % (Auto) (50.0-75.0) % Lymph % (Auto) (20.0-40.0) % Milam % (Auto) (0.0-10.0) % Eos % (Auto) (0.0-4.0) % Baso % (Auto) (0.0-2.0) % Neut # (Auto) (1.8-7.0) K/uL Lymph # (Auto) (1.0-4.3) K/uL Milam # (Auto) (0.0-0.8) K/uL Eos # (Auto) (0.0-0.7) K/uL Baso # (Auto) (0.0-0.2) K/uL Neutrophils % (Manual) (50-75) % Band Neutrophils % (0-2) % Lymphocytes % (Manual) (20-40) % Monocytes % (Manual) Metamyelocytes % (0-0) % Platelet Estimate (NORMAL) Hypochromasia (manual) Poikilocytosis (manual Anisocytosis (manual) PT (9.7-12.2) SECONDS INR APTT (21-34) SECONDS Puncture Site Rfem pCO2 33 L (35-45) mm/Hg pO2 38 L* (80-100) mm/Hg HCO3 20.1 L (21-28) mmol/L ABG pH 7.37 (7.35-7.45) ABG Total CO2 20.1 L (22-28) mmol/L ABG O2 Saturation 80.7 L (95-98) % ABG Base Excess -5.3 L (-2.0-3.0) mmol/L ABG Hemoglobin (11.7-17.4) g/dL ABG Carboxyhemoglobin (0.5-1.5) % POC ABG HHb (Measured) (0.0-5.0) % ABG Methemoglobin (0.0-3.0) % Bryce Test Na ABG Potassium (3.6-5.2) mmol/L VBG pH (7.32-7.43) VBG pCO2 (40-60) mmHg VBG HCO3 mmol/L VBG Total CO2 (22-28) mmol/L VBG O2 Sat (Calc) (40-65) % VBG Base Excess (0.0-2.0) mmol/L VBG Potassium (3.6-5.2) mmol/L A-a O2 Difference 634.0 mm/Hg Respiratory Index 16.7 Hgb O2 Saturation (95.0-98.0) % Sodium (132-148) mmol/l Chloride (98-107) mmol/L Glucose (65-105) mg/dl Lactate (0.7-2.1) mmol/L Vent Mode Prvc Mechanical Rate 30 FiO2 100.0 % Tidal Volume 500 PEEP 5 Crit Value Called To Dr kurtz Crit Value Called By Nomi sevilla Crit Value Read Back Y Blood Gas Notified Time 1624 Potassium (3.6-5.2) mmol/L Carbon Dioxide (22-30) mmol/L Anion Gap (10-20) BUN (7-17) mg/dL Creatinine (0.7-1.2) mg/dL Est GFR ( Amer) Est GFR (Non-Af Amer) Random Glucose (65-105) mg/dL Calcium (8.6-10.4) mg/dl Phosphorus (2.5-4.5) mg/dL Magnesium (1.6-2.3) mg/dL Total Bilirubin (0.2-1.3) mg/dL AST (14-36) U/L ALT (9-52) U/L Alkaline Phosphatase (38-126) U/L Total Protein (6.3-8.3) g/dL Albumin (3.5-5.0) g/dL Globulin (2.2-3.9) gm/dL Albumin/Globulin Ratio (1.0-2.1) Arterial Blood Potassium (3.6-5.2) mmol/L Venous Blood Potassium (3.6-5.2) mmol/L Laboratory Results - last 24 hr 07/28/18 07/28/18 07/28/18 16:21 16:34 17:58 WBC RBC Hgb Hct MCV MCH MCHC RDW Plt Count MPV Neut % (Auto) Lymph % (Auto) Milam % (Auto) Eos % (Auto) Baso % (Auto) Neut # (Auto) Lymph # (Auto) Milam # (Auto) Eos # (Auto) Baso # (Auto) Neutrophils % (Manual) Band Neutrophils % Lymphocytes % (Manual) Monocytes % (Manual) Metamyelocytes % Platelet Estimate Hypochromasia (manual) Poikilocytosis (manual Anisocytosis (manual) PT INR APTT 45 H D Puncture Site Rfem Lb pCO2 33 L 22 L pO2 38 L* 310 H HCO3 20.1 L 21.1 ABG pH 7.37 7.48 H ABG Total CO2 20.1 L 17.1 L ABG O2 Saturation 80.7 L 100.8 H ABG Base Excess -5.3 L -5.0 L ABG Hemoglobin ABG Carboxyhemoglobin POC ABG HHb (Measured) ABG Methemoglobin Bryce Test Na Na ABG Potassium 3.2 L VBG pH VBG pCO2 VBG HCO3 VBG Total CO2 VBG O2 Sat (Calc) VBG Base Excess VBG Potassium A-a O2 Difference 634.0 376.0 Respiratory Index 16.7 1.2 Hgb O2 Saturation Sodium 151.0 H Chloride 125.0 H Glucose 153 H Lactate 5.1 H* Vent Mode Prvc Prvc Mechanical Rate 30 20 FiO2 100.0 100.0 Tidal Volume 500 500 PEEP 5 5 Crit Value Called To Dr tessie kurtz Crit Value Called By Nomi valentine Crit Value Read Back Y Y Blood Gas Notified Time [id number] Potassium Carbon Dioxide Anion Gap BUN Creatinine Est GFR ( Amer) Est GFR (Non-Af Amer) Random Glucose Calcium Phosphorus Magnesium Total Bilirubin AST ALT Alkaline Phosphatase Total Protein Albumin Globulin Albumin/Globulin Ratio Arterial Blood Potassium 3.2 L Venous Blood Potassium 07/28/18 07/29/18 07/29/18 23:15 00:28 04:30 WBC RBC Hgb Hct MCV MCH MCHC RDW Plt Count MPV Neut % (Auto) Lymph % (Auto) Milam % (Auto) Eos % (Auto) Baso % (Auto) Neut # (Auto) Lymph # (Auto) Milam # (Auto) Eos # (Auto) Baso # (Auto) Neutrophils % (Manual) Band Neutrophils % Lymphocytes % (Manual) Monocytes % (Manual) Metamyelocytes % Platelet Estimate Hypochromasia (manual) Poikilocytosis (manual Anisocytosis (manual) PT INR APTT 224 H* D Puncture Site Rr Rr pCO2 30 L 33 L pO2 180 H 208 H HCO3 24.3 26.0 ABG pH 7.48 H 7.48 H ABG Total CO2 23.2 25.6 ABG O2 Saturation 99.0 H 99.2 H ABG Base Excess -0.9 1.3 ABG Hemoglobin 8.0 L 9.5 L ABG Carboxyhemoglobin 0.5 0.9 POC ABG HHb (Measured) 1.0 0.8 ABG Methemoglobin 0.6 1.0 Bryce Test Pos Pos ABG Potassium VBG pH VBG pCO2 VBG HCO3 VBG Total CO2 VBG O2 Sat (Calc) VBG Base Excess VBG Potassium A-a O2 Difference 210.0 179.0 Respiratory Index 1.2 0.9 Hgb O2 Saturation 97.9 97.3 Sodium Chloride Glucose Lactate Vent Mode Prvc Prvc Mechanical Rate 20 20 FiO2 60.0 60.0 Tidal Volume 500 500 PEEP 5 5 Crit Value Called To Crit Value Called By Crit Value Read Back Blood Gas Notified Time Potassium Carbon Dioxide Anion Gap BUN Creatinine Est GFR ( Amer) Est GFR (Non-Af Amer) Random Glucose Calcium Phosphorus Magnesium Total Bilirubin AST ALT Alkaline Phosphatase Total Protein Albumin Globulin Albumin/Globulin Ratio Arterial Blood Potassium Venous Blood Potassium 07/29/18 07/29/18 07/29/18 06:15 06:15 07:00 WBC 24.6 H RBC 3.04 L Hgb 8.0 L Hct 24.0 L MCV 78.8 L D MCH 26.1 L MCHC 33.2 RDW 14.2 Plt Count 95 L MPV 10.7 Neut % (Auto) 92.5 H Lymph % (Auto) 3.8 L Milam % (Auto) 2.2 Eos % (Auto) 1.4 Baso % (Auto) 0.1 Neut # (Auto) 22.8 H Lymph # (Auto) 0.9 L Milam # (Auto) 0.5 Eos # (Auto) 0.3 Baso # (Auto) 0.0 Neutrophils % (Manual) 82 H Band Neutrophils % 15 H* Lymphocytes % (Manual) 2 L Monocytes % (Manual) TEST NOT PERFORMED Metamyelocytes % 1 H Platelet Estimate Decreased L Hypochromasia (manual) Slight Poikilocytosis (manual Slight Anisocytosis (manual) Slight PT 24.3 H INR 2.2 APTT 239 H* D Puncture Site pCO2 pO2 HCO3 ABG pH ABG Total CO2 ABG O2 Saturation ABG Base Excess ABG Hemoglobin ABG Carboxyhemoglobin POC ABG HHb (Measured) ABG Methemoglobin Bryce Test ABG Potassium VBG pH VBG pCO2 VBG HCO3 VBG Total CO2 VBG O2 Sat (Calc) VBG Base Excess VBG Potassium A-a O2 Difference Respiratory Index Hgb O2 Saturation Sodium 154 H Chloride 115 H Glucose Lactate Vent Mode Mechanical Rate FiO2 Tidal Volume PEEP Crit Value Called To Crit Value Called By Crit Value Read Back Blood Gas Notified Time Potassium 3.8 Carbon Dioxide 25 Anion Gap 17 BUN 44 H Creatinine 4.0 H Est GFR ( Amer) 15 Est GFR (Non-Af Amer) 12 Random Glucose 142 H Calcium 5.7 L* Phosphorus 4.5 Magnesium 1.9 Total Bilirubin 0.7 AST 923 H ALT 534 H D Alkaline Phosphatase 47 Total Protein 4.6 L Albumin 2.5 L Globulin 2.1 L Albumin/Globulin Ratio 1.2 Arterial Blood Potassium Venous Blood Potassium 07/29/18 10:39 WBC RBC Hgb Hct MCV MCH MCHC RDW Plt Count MPV Neut % (Auto) Lymph % (Auto) Milam % (Auto) Eos % (Auto) Baso % (Auto) Neut # (Auto) Lymph # (Auto) Milam # (Auto) Eos # (Auto) Baso # (Auto) Neutrophils % (Manual) Band Neutrophils % Lymphocytes % (Manual) Monocytes % (Manual) Metamyelocytes % Platelet Estimate Hypochromasia (manual) Poikilocytosis (manual Anisocytosis (manual) PT INR APTT Puncture Site pCO2 pO2 40 HCO3 ABG pH ABG Total CO2 ABG O2 Saturation ABG Base Excess ABG Hemoglobin ABG Carboxyhemoglobin POC ABG HHb (Measured) ABG Methemoglobin Bryce Test ABG Potassium VBG pH 7.39 VBG pCO2 26 L VBG HCO3 18.4 VBG Total CO2 16.5 L VBG O2 Sat (Calc) 80.1 H VBG Base Excess -7.6 L VBG Potassium 1.8 L* A-a O2 Difference Respiratory Index Hgb O2 Saturation Sodium 157.0 H Chloride 133.0 H Glucose 94 Lactate 1.5 Vent Mode Mechanical Rate FiO2 60.0 Tidal Volume PEEP 5 Crit Value Called To Dr kurtz Crit Value Called By [facility] Crit Value Read Back Y Blood Gas Notified Time 1045 Potassium Carbon Dioxide Anion Gap BUN Creatinine Est GFR ( Amer) Est GFR (Non-Af Amer) Random Glucose Calcium Phosphorus Magnesium Total Bilirubin AST ALT Alkaline Phosphatase Total Protein Albumin Globulin Albumin/Globulin Ratio Arterial Blood Potassium Venous Blood Potassium 1.8 L* Fingerstick Blood Sugar Results: 288 Review of Systems - Review of Systems Systems not reviewed;Unavailable: Intubated Critical Care Progress Note - Ventilator Checklist Head of Bed 30 Degrees: Yes Daily Assessment of Readiness to Wean: Yes Daily Spontaneous Breathing Trial: Yes - Vent Settings MODE:: PRVC TIDAL VOLUME:: 500 RESP RATE:: 30 FIO2:: 100 PEEP:: 5 Assessment/Plan - Assessment and Plan (Free Text) Assessment: Patient is a 48 year old female with past medical history of anxiety presenting to ED with shortness of breath, syncope, and chest pain, went into cardiac arrest, now s/p intubation and found to have bilateral PE and septic shock. Plan: Neuro: - Alert, following commands - Head CT shows no acute intracranial abnormality, left forehead soft tissue swelling - Precedex Pulm: - s/p intubation - CXR shows interval left basilar atelectasis favored over infiltrate with possible small pleural effusions, atelectasis medial right apex - maintain SPO2> 92 % - Duonebs 3 ml INH RQ6 - Nebulizer treatment CV: - maintain MAP> 65 - Vasopressors: levophed - D-dimer > 5250 - Chest CT shows extensive bilateral lower lobe proximal PE, smaller emboli within upper lobes and middle lobe, cardiomegaly - Venous dopplers show DVT in left common femoral vein - ECHO shows LVEF 73%, diastolic dysfunction, mild-mod dilated RV - Cardiology consulted. Appreciate recs. - Consider IVC filter when stable GI: - Abd/pelvis CT shows mild ileus, questionable enteritis, postoperative changes of stomach - Diarrhea noted. FOBT positive. C.diff, salmonella, shigella, campylobacter negative. - Procal >200 - Protonix 40 mg IV Q12 - NPO - Consider CTA of abdomen once stable for ischemic colitis - Abd U/S shows cholecystitis, consider cholecystostomy Renal: - BRIAN, Cr uptrending - oliguric - monitor I and Os - monitor and replete electrolytes Endo: - maintain euglycemia with blood sugars 140-180 - holding ISS Heme: - monitor H&H - heparin 4000 units IV given once - heparin drip resumed - Heme/onc consulted. Appreciate recs. ID: - Tmax 100.6, WBC count on admission 15.8 - 10/1 BCx NG after 48 hrs x2, UCx no growth - Flagyl 500 mg IV Q8H - Zosyn 2,25 gm IV Q6H - Vancomycin 750 mg IV daily held due to BRIAN Dispo: ICU, s/p intubation FEN: NPO Access: central line, peripheral IVs Consults: Cardio, Neuro PPX: Protonix for GI, SCDs contraindicated Patient seen, reviewed, and discussed with attending, Dr. Tessie Chowdary PGY-1 - Date & Time Date: 07/29/18 Time: 08:00 <Jm Kurtz - Last Filed: 07/29/18 17:42> CCU Subjective - Physician Review Critical Care Time Spent (in minutes): 45 CCU Objective - Vital Signs / Intake & Output Vital Signs (Last 4 hours): Vital Signs Temp Pulse Resp BP Pulse Ox 07/29/18 16:09 62 20 117/72 98 07/29/18 16:00 97.5 F L 07/29/18 15:55 62 20 111/72 07/29/18 15:52 125/73 07/29/18 15:25 73 20 125/73 100 07/29/18 14:55 68 20 117/73 100 07/29/18 14:25 73 22 124/81 100 07/29/18 13:56 71 18 116/72 100 Intake and Output (Last 8hrs): Intake & Output 07/29/18 07/29/18 07/29/18 06:59 14:59 22:59 Intake Total 1894.7 1280.6 5 Output Total 305 256 Balance 1589.7 1024.6 5 Weight 202 lb 8 oz Intake: IV 389.6 418 5 Intake, IV Amount 1505.1 862.6 Left Distal Port IJ - Y- 114.2 12.6 Port Left Distal Port Internal 71.4 22.0 Jugular Left Medial Port IJ Y- 200 518 Port Left Medial Port Internal 900 100 Jugular Left Proximal Port IJ Y- 219.5 210 Port Output: Urine 305 256 Urethral (Becerril) 305 256 Other: # Bowel Movements 1 1 - Medications Active Medications: Active Medications Generic Name Dose Route Start Last Admin Trade Name Freq PRN Reason Stop Dose Admin Albuterol/Ipratropium 3 ml 07/29/18 14:00 07/29/18 13:30 Duoneb 3 Mg/0.5 Mg (3 Ml) Ud INH 3 ml RQ6 KACY Administration Heparin Sodium/Sodium Chloride 25,000 units in 250 mls @ 12.247 mls/hr 07/27/18 07:09 07/29/18 10:00 Heparin 01634 Units/250ml 1/2 Normal Saline IV 6 units/kg/hr .[id number] PRN 4.355 mls/hr ADJUST RATE PER PROTOCOL Titration Protocol 16.875 UNITS/KG/HR Norepinephrine Bitartrate 4 mg 250 mls @ 15 mls/hr 07/27/18 07:39 07/29/18 15:52 / Sodium Chloride IV 8 mcg/min .[id number] PRN 30 mls/hr TITRATE PER MD ORDER Administration Protocol 4 MCG/MIN Cisatracurium Besylate 100 mg/ 250 mls @ 32.66 mls/hr 07/27/18 08:24 07/28/18 19:02 Dextrose IV 0 mcg/kg/min .Q7H40M PRN 0 mls/hr Agitation Titration Protocol 3 MCG/KG/MIN Phenylephrine HCl 30 mg/ 250 mls @ 10 mls/hr 07/27/18 09:40 07/28/18 15:37 Sodium Chloride IV 0 mcg/min .Q24H PRN 0 mls/hr TITRATE PER MD ORDER Titration Protocol 20 MCG/MIN Vasopressin 40 units/ Sodium 40 mls @ 1.2 mls/hr 07/27/18 11:00 07/29/18 12:08 Chloride IV Not Given .Q24H KACY Protocol 0.02 UNITS/MIN Dexmedetomidine HCl 200 mcg/ 50 mls @ 3.63 mls/hr 07/27/18 16:08 07/29/18 15:08 Sodium Chloride IV 0.2 mcg/kg/hr TITR PRN 3.63 mls/hr Sedation Titration Protocol 0.2 MCG/KG/HR Metronidazole 500 mg in 100 mls @ 100 mls/hr 07/27/18 18:30 07/29/18 09:30 Flagyl IVPB 100 mls/hr Q8H KACY Administration Protocol Vancomycin HCl 150 mls @ 100 mls/hr 07/28/18 12:00 07/28/18 11:48 Vancocin 750mg/Ns 150 Ml IVPB 100 mls/hr Q24H KACY Administration Protocol Piperacillin Sod/Tazobactam 100 mls @ 200 mls/hr 07/28/18 10:00 07/29/18 15:54 Sod 2.25 gm/ Sodium Chloride IVPB 200 mls/hr Q6H KACY Administration Protocol Lorazepam 2 mg 07/27/18 08:25 07/29/18 15:21 Ativan IVP 2 mg Q4 PRN Administration Anxiety Methylprednisolone 40 mg 07/27/18 10:00 07/29/18 14:02 Solu-Medrol IVP 40 mg TID KACY Administration Pantoprazole Sodium 40 mg 07/27/18 10:00 07/29/18 09:17 Protonix Inj IVP 40 mg Q12 KACY Administration - Patient Studies Lab Studies: Microbiology Studies 07/29/18 00:28 Gram Stain - Final Sputum 07/27/18 18:26 Stool Culture - Final Stool NO SALMONELLA, SHIGELLA OR CAMPYLOBACTER ISOLATED. 07/27/18 10:29 Blood Culture - Preliminary Blood-Venous NO GROWTH AFTER 48 HOURS 07/27/18 10:04 Blood Culture - Preliminary Blood-Venous NO GROWTH AFTER 48 HOURS Lab Studies 07/29/18 07/29/18 07/29/18 Range/Units 16:53 10:39 07:00 WBC (4.8-10.8) K/uL RBC (3.80-5.20) Mil/uL Hgb (11.0-16.0) g/dL Hct (34.0-47.0) % MCV (81.0-99.0) fL MCH (27.0-31.0) pg MCHC (33.0-37.0) g/dL RDW (11.5-14.5) % Plt Count (130-400) K/uL MPV (7.2-11.7) fL Neut % (Auto) (50.0-75.0) % Lymph % (Auto) (20.0-40.0) % Milam % (Auto) (0.0-10.0) % Eos % (Auto) (0.0-4.0) % Baso % (Auto) (0.0-2.0) % Neut # (Auto) (1.8-7.0) K/uL Lymph # (Auto) (1.0-4.3) K/uL Milam # (Auto) (0.0-0.8) K/uL Eos # (Auto) (0.0-0.7) K/uL Baso # (Auto) (0.0-0.2) K/uL Neutrophils % (Manual) (50-75) % Band Neutrophils % (0-2) % Lymphocytes % (Manual) (20-40) % Monocytes % (Manual) Metamyelocytes % (0-0) % Platelet Estimate (NORMAL) Hypochromasia (manual) Poikilocytosis (manual Anisocytosis (manual) PT 24.3 H (9.7-12.2) SECONDS INR 2.2 APTT 55 H D 239 H* D (21-34) SECONDS Puncture Site pCO2 (35-45) mm/Hg pO2 40 (80-100) mm/Hg HCO3 (21-28) mmol/L ABG pH (7.35-7.45) ABG Total CO2 (22-28) mmol/L ABG O2 Saturation (95-98) % ABG Base Excess (-2.0-3.0) mmol/L ABG Hemoglobin (11.7-17.4) g/dL ABG Carboxyhemoglobin (0.5-1.5) % POC ABG HHb (Measured) (0.0-5.0) % ABG Methemoglobin (0.0-3.0) % Bryce Test ABG Potassium (3.6-5.2) mmol/L VBG pH 7.39 (7.32-7.43) VBG pCO2 26 L (40-60) mmHg VBG HCO3 18.4 mmol/L VBG Total CO2 16.5 L (22-28) mmol/L VBG O2 Sat (Calc) 80.1 H (40-65) % VBG Base Excess -7.6 L (0.0-2.0) mmol/L VBG Potassium 1.8 L* (3.6-5.2) mmol/L A-a O2 Difference mm/Hg Respiratory Index Hgb O2 Saturation (95.0-98.0) % Sodium 157.0 H (132-148) mmol/l Chloride 133.0 H (98-107) mmol/L Glucose 94 (65-105) mg/dl Lactate 1.5 (0.7-2.1) mmol/L Vent Mode Mechanical Rate FiO2 60.0 % Tidal Volume PEEP 5 Crit Value Called To Dr kurtz Crit Value Called By [facility] Crit Value Read Back Y Blood Gas Notified Time 1045 Potassium (3.6-5.2) mmol/L Carbon Dioxide (22-30) mmol/L Anion Gap (10-20) BUN (7-17) mg/dL Creatinine (0.7-1.2) mg/dL Est GFR ( Amer) Est GFR (Non-Af Amer) Random Glucose (65-105) mg/dL Calcium (8.6-10.4) mg/dl Phosphorus (2.5-4.5) mg/dL Magnesium (1.6-2.3) mg/dL Total Bilirubin (0.2-1.3) mg/dL AST (14-36) U/L ALT (9-52) U/L Alkaline Phosphatase (38-126) U/L Total Protein (6.3-8.3) g/dL Albumin (3.5-5.0) g/dL Globulin (2.2-3.9) gm/dL Albumin/Globulin Ratio (1.0-2.1) Arterial Blood Potassium (3.6-5.2) mmol/L Venous Blood Potassium 1.8 L* (3.6-5.2) mmol/L 07/29/18 07/29/18 07/29/18 Range/Units 06:15 06:15 04:30 WBC 24.6 H (4.8-10.8) K/uL RBC 3.04 L (3.80-5.20) Mil/uL Hgb 8.0 L (11.0-16.0) g/dL Hct 24.0 L (34.0-47.0) % MCV 78.8 L D (81.0-99.0) fL MCH 26.1 L (27.0-31.0) pg MCHC 33.2 (33.0-37.0) g/dL RDW 14.2 (11.5-14.5) % Plt Count 95 L (130-400) K/uL MPV 10.7 (7.2-11.7) fL Neut % (Auto) 92.5 H (50.0-75.0) % Lymph % (Auto) 3.8 L (20.0-40.0) % Milam % (Auto) 2.2 (0.0-10.0) % Eos % (Auto) 1.4 (0.0-4.0) % Baso % (Auto) 0.1 (0.0-2.0) % Neut # (Auto) 22.8 H (1.8-7.0) K/uL Lymph # (Auto) 0.9 L (1.0-4.3) K/uL Milam # (Auto) 0.5 (0.0-0.8) K/uL Eos # (Auto) 0.3 (0.0-0.7) K/uL Baso # (Auto) 0.0 (0.0-0.2) K/uL Neutrophils % (Manual) 82 H (50-75) % Band Neutrophils % 15 H* (0-2) % Lymphocytes % (Manual) 2 L (20-40) % Monocytes % (Manual) TEST NOT PERFORMED Metamyelocytes % 1 H (0-0) % Platelet Estimate Decreased L (NORMAL) Hypochromasia (manual) Slight Poikilocytosis (manual Slight Anisocytosis (manual) Slight PT (9.7-12.2) SECONDS INR APTT (21-34) SECONDS Puncture Site Rr pCO2 33 L (35-45) mm/Hg pO2 208 H (80-100) mm/Hg HCO3 26.0 (21-28) mmol/L ABG pH 7.48 H (7.35-7.45) ABG Total CO2 25.6 (22-28) mmol/L ABG O2 Saturation 99.2 H (95-98) % ABG Base Excess 1.3 (-2.0-3.0) mmol/L ABG Hemoglobin 9.5 L (11.7-17.4) g/dL ABG Carboxyhemoglobin 0.9 (0.5-1.5) % POC ABG HHb (Measured) 0.8 (0.0-5.0) % ABG Methemoglobin 1.0 (0.0-3.0) % Bryce Test Pos ABG Potassium (3.6-5.2) mmol/L VBG pH (7.32-7.43) VBG pCO2 (40-60) mmHg VBG HCO3 mmol/L VBG Total CO2 (22-28) mmol/L VBG O2 Sat (Calc) (40-65) % VBG Base Excess (0.0-2.0) mmol/L VBG Potassium (3.6-5.2) mmol/L A-a O2 Difference 179.0 mm/Hg Respiratory Index 0.9 Hgb O2 Saturation 97.3 (95.0-98.0) % Sodium 154 H (132-148) mmol/l Chloride 115 H (98-107) mmol/L Glucose (65-105) mg/dl Lactate (0.7-2.1) mmol/L Vent Mode Prvc Mechanical Rate 20 FiO2 60.0 % Tidal Volume 500 PEEP 5 Crit Value Called To Crit Value Called By Crit Value Read Back Blood Gas Notified Time Potassium 3.8 (3.6-5.2) mmol/L Carbon Dioxide 25 (22-30) mmol/L Anion Gap 17 (10-20) BUN 44 H (7-17) mg/dL Creatinine 4.0 H (0.7-1.2) mg/dL Est GFR ( Amer) 15 Est GFR (Non-Af Amer) 12 Random Glucose 142 H (65-105) mg/dL Calcium 5.7 L* (8.6-10.4) mg/dl Phosphorus 4.5 (2.5-4.5) mg/dL Magnesium 1.9 (1.6-2.3) mg/dL Total Bilirubin 0.7 (0.2-1.3) mg/dL AST 923 H (14-36) U/L ALT 534 H D (9-52) U/L Alkaline Phosphatase 47 (38-126) U/L Total Protein 4.6 L (6.3-8.3) g/dL Albumin 2.5 L (3.5-5.0) g/dL Globulin 2.1 L (2.2-3.9) gm/dL Albumin/Globulin Ratio 1.2 (1.0-2.1) Arterial Blood Potassium (3.6-5.2) mmol/L Venous Blood Potassium (3.6-5.2) mmol/L 07/29/18 07/28/18 07/28/18 Range/Units 00:28 23:15 17:58 WBC (4.8-10.8) K/uL RBC (3.80-5.20) Mil/uL Hgb (11.0-16.0) g/dL Hct (34.0-47.0) % MCV (81.0-99.0) fL MCH (27.0-31.0) pg MCHC (33.0-37.0) g/dL RDW (11.5-14.5) % Plt Count (130-400) K/uL MPV (7.2-11.7) fL Neut % (Auto) (50.0-75.0) % Lymph % (Auto) (20.0-40.0) % Milam % (Auto) (0.0-10.0) % Eos % (Auto) (0.0-4.0) % Baso % (Auto) (0.0-2.0) % Neut # (Auto) (1.8-7.0) K/uL Lymph # (Auto) (1.0-4.3) K/uL Milam # (Auto) (0.0-0.8) K/uL Eos # (Auto) (0.0-0.7) K/uL Baso # (Auto) (0.0-0.2) K/uL Neutrophils % (Manual) (50-75) % Band Neutrophils % (0-2) % Lymphocytes % (Manual) (20-40) % Monocytes % (Manual) Metamyelocytes % (0-0) % Platelet Estimate (NORMAL) Hypochromasia (manual) Poikilocytosis (manual Anisocytosis (manual) PT (9.7-12.2) SECONDS INR APTT 224 H* D 45 H D (21-34) SECONDS Puncture Site Rr pCO2 30 L (35-45) mm/Hg pO2 180 H (80-100) mm/Hg HCO3 24.3 (21-28) mmol/L ABG pH 7.48 H (7.35-7.45) ABG Total CO2 23.2 (22-28) mmol/L ABG O2 Saturation 99.0 H (95-98) % ABG Base Excess -0.9 (-2.0-3.0) mmol/L ABG Hemoglobin 8.0 L (11.7-17.4) g/dL ABG Carboxyhemoglobin 0.5 (0.5-1.5) % POC ABG HHb (Measured) 1.0 (0.0-5.0) % ABG Methemoglobin 0.6 (0.0-3.0) % Bryce Test Pos ABG Potassium (3.6-5.2) mmol/L VBG pH (7.32-7.43) VBG pCO2 (40-60) mmHg VBG HCO3 mmol/L VBG Total CO2 (22-28) mmol/L VBG O2 Sat (Calc) (40-65) % VBG Base Excess (0.0-2.0) mmol/L VBG Potassium (3.6-5.2) mmol/L A-a O2 Difference 210.0 mm/Hg Respiratory Index 1.2 Hgb O2 Saturation 97.9 (95.0-98.0) % Sodium (132-148) mmol/l Chloride (98-107) mmol/L Glucose (65-105) mg/dl Lactate (0.7-2.1) mmol/L Vent Mode Prvc Mechanical Rate 20 FiO2 60.0 % Tidal Volume 500 PEEP 5 Crit Value Called To Crit Value Called By Crit Value Read Back Blood Gas Notified Time Potassium (3.6-5.2) mmol/L Carbon Dioxide (22-30) mmol/L Anion Gap (10-20) BUN (7-17) mg/dL Creatinine (0.7-1.2) mg/dL Est GFR ( Amer) Est GFR (Non-Af Amer) Random Glucose (65-105) mg/dL Calcium (8.6-10.4) mg/dl Phosphorus (2.5-4.5) mg/dL Magnesium (1.6-2.3) mg/dL Total Bilirubin (0.2-1.3) mg/dL AST (14-36) U/L ALT (9-52) U/L Alkaline Phosphatase (38-126) U/L Total Protein (6.3-8.3) g/dL Albumin (3.5-5.0) g/dL Globulin (2.2-3.9) gm/dL Albumin/Globulin Ratio (1.0-2.1) Arterial Blood Potassium (3.6-5.2) mmol/L Venous Blood Potassium (3.6-5.2) mmol/L 07/28/18 Range/Units 16:34 WBC (4.8-10.8) K/uL RBC (3.80-5.20) Mil/uL Hgb (11.0-16.0) g/dL Hct (34.0-47.0) % MCV (81.0-99.0) fL MCH (27.0-31.0) pg MCHC (33.0-37.0) g/dL RDW (11.5-14.5) % Plt Count (130-400) K/uL MPV (7.2-11.7) fL Neut % (Auto) (50.0-75.0) % Lymph % (Auto) (20.0-40.0) % Milam % (Auto) (0.0-10.0) % Eos % (Auto) (0.0-4.0) % Baso % (Auto) (0.0-2.0) % Neut # (Auto) (1.8-7.0) K/uL Lymph # (Auto) (1.0-4.3) K/uL Milam # (Auto) (0.0-0.8) K/uL Eos # (Auto) (0.0-0.7) K/uL Baso # (Auto) (0.0-0.2) K/uL Neutrophils % (Manual) (50-75) % Band Neutrophils % (0-2) % Lymphocytes % (Manual) (20-40) % Monocytes % (Manual) Metamyelocytes % (0-0) % Platelet Estimate (NORMAL) Hypochromasia (manual) Poikilocytosis (manual Anisocytosis (manual) PT (9.7-12.2) SECONDS INR APTT (21-34) SECONDS Puncture Site Lb pCO2 22 L (35-45) mm/Hg pO2 310 H (80-100) mm/Hg HCO3 21.1 (21-28) mmol/L ABG pH 7.48 H (7.35-7.45) ABG Total CO2 17.1 L (22-28) mmol/L ABG O2 Saturation 100.8 H (95-98) % ABG Base Excess -5.0 L (-2.0-3.0) mmol/L ABG Hemoglobin (11.7-17.4) g/dL ABG Carboxyhemoglobin (0.5-1.5) % POC ABG HHb (Measured) (0.0-5.0) % ABG Methemoglobin (0.0-3.0) % Bryce Test Na ABG Potassium 3.2 L (3.6-5.2) mmol/L VBG pH (7.32-7.43) VBG pCO2 (40-60) mmHg VBG HCO3 mmol/L VBG Total CO2 (22-28) mmol/L VBG O2 Sat (Calc) (40-65) % VBG Base Excess (0.0-2.0) mmol/L VBG Potassium (3.6-5.2) mmol/L A-a O2 Difference 376.0 mm/Hg Respiratory Index 1.2 Hgb O2 Saturation (95.0-98.0) % Sodium 151.0 H (132-148) mmol/l Chloride 125.0 H (98-107) mmol/L Glucose 153 H (65-105) mg/dl Lactate 5.1 H* (0.7-2.1) mmol/L Vent Mode Prvc Mechanical Rate 20 FiO2 100.0 % Tidal Volume 500 PEEP 5 Crit Value Called To Dr kurtz Crit Value Called By Nomi valentine Crit Value Read Back Y Blood Gas Notified Time 1637 Potassium (3.6-5.2) mmol/L Carbon Dioxide (22-30) mmol/L Anion Gap (10-20) BUN (7-17) mg/dL Creatinine (0.7-1.2) mg/dL Est GFR ( Amer) Est GFR (Non-Af Amer) Random Glucose (65-105) mg/dL Calcium (8.6-10.4) mg/dl Phosphorus (2.5-4.5) mg/dL Magnesium (1.6-2.3) mg/dL Total Bilirubin (0.2-1.3) mg/dL AST (14-36) U/L ALT (9-52) U/L Alkaline Phosphatase (38-126) U/L Total Protein (6.3-8.3) g/dL Albumin (3.5-5.0) g/dL Globulin (2.2-3.9) gm/dL Albumin/Globulin Ratio (1.0-2.1) Arterial Blood Potassium 3.2 L (3.6-5.2) mmol/L Venous Blood Potassium (3.6-5.2) mmol/L Laboratory Results - last 24 hr 07/28/18 07/28/18 07/28/18 16:34 17:58 23:15 WBC RBC Hgb Hct MCV MCH MCHC RDW Plt Count MPV Neut % (Auto) Lymph % (Auto) Milam % (Auto) Eos % (Auto) Baso % (Auto) Neut # (Auto) Lymph # (Auto) Milam # (Auto) Eos # (Auto) Baso # (Auto) Neutrophils % (Manual) Band Neutrophils % Lymphocytes % (Manual) Monocytes % (Manual) Metamyelocytes % Platelet Estimate Hypochromasia (manual) Poikilocytosis (manual Anisocytosis (manual) PT INR APTT 45 H D Puncture Site Lb Rr pCO2 22 L 30 L pO2 310 H 180 H HCO3 21.1 24.3 ABG pH 7.48 H 7.48 H ABG Total CO2 17.1 L 23.2 ABG O2 Saturation 100.8 H 99.0 H ABG Base Excess -5.0 L -0.9 ABG Hemoglobin 8.0 L ABG Carboxyhemoglobin 0.5 POC ABG HHb (Measured) 1.0 ABG Methemoglobin 0.6 Bryce Test Na Pos ABG Potassium 3.2 L VBG pH VBG pCO2 VBG HCO3 VBG Total CO2 VBG O2 Sat (Calc) VBG Base Excess VBG Potassium A-a O2 Difference 376.0 210.0 Respiratory Index 1.2 1.2 Hgb O2 Saturation 97.9 Sodium 151.0 H Chloride 125.0 H Glucose 153 H Lactate 5.1 H* Vent Mode Prvc Prvc Mechanical Rate 20 20 FiO2 100.0 60.0 Tidal Volume 500 500 PEEP 5 5 Crit Value Called To Dr kurtz Crit Value Called By Nomi valentine Crit Value Read Back Y Blood Gas Notified Time 1637 Potassium Carbon Dioxide Anion Gap BUN Creatinine Est GFR ( Amer) Est GFR (Non-Af Amer) Random Glucose Calcium Phosphorus Magnesium Total Bilirubin AST ALT Alkaline Phosphatase Total Protein Albumin Globulin Albumin/Globulin Ratio Arterial Blood Potassium 3.2 L Venous Blood Potassium 07/29/18 07/29/18 07/29/18 00:28 04:30 06:15 WBC 24.6 H RBC 3.04 L Hgb 8.0 L Hct 24.0 L MCV 78.8 L D MCH 26.1 L MCHC 33.2 RDW 14.2 Plt Count 95 L MPV 10.7 Neut % (Auto) 92.5 H Lymph % (Auto) 3.8 L Milam % (Auto) 2.2 Eos % (Auto) 1.4 Baso % (Auto) 0.1 Neut # (Auto) 22.8 H Lymph # (Auto) 0.9 L Milam # (Auto) 0.5 Eos # (Auto) 0.3 Baso # (Auto) 0.0 Neutrophils % (Manual) 82 H Band Neutrophils % 15 H* Lymphocytes % (Manual) 2 L Monocytes % (Manual) TEST NOT PERFORMED Metamyelocytes % 1 H Platelet Estimate Decreased L Hypochromasia (manual) Slight Poikilocytosis (manual Slight Anisocytosis (manual) Slight PT INR APTT 224 H* D Puncture Site Rr pCO2 33 L pO2 208 H HCO3 26.0 ABG pH 7.48 H ABG Total CO2 25.6 ABG O2 Saturation 99.2 H ABG Base Excess 1.3 ABG Hemoglobin 9.5 L ABG Carboxyhemoglobin 0.9 POC ABG HHb (Measured) 0.8 ABG Methemoglobin 1.0 Bryce Test Pos ABG Potassium VBG pH VBG pCO2 VBG HCO3 VBG Total CO2 VBG O2 Sat (Calc) VBG Base Excess VBG Potassium A-a O2 Difference 179.0 Respiratory Index 0.9 Hgb O2 Saturation 97.3 Sodium Chloride Glucose Lactate Vent Mode Prvc Mechanical Rate 20 FiO2 60.0 Tidal Volume 500 PEEP 5 Crit Value Called To Crit Value Called By Crit Value Read Back Blood Gas Notified Time Potassium Carbon Dioxide Anion Gap BUN Creatinine Est GFR ( Amer) Est GFR (Non-Af Amer) Random Glucose Calcium Phosphorus Magnesium Total Bilirubin AST ALT Alkaline Phosphatase Total Protein Albumin Globulin Albumin/Globulin Ratio Arterial Blood Potassium Venous Blood Potassium 07/29/18 07/29/18 07/29/18 06:15 07:00 10:39 WBC RBC Hgb Hct MCV MCH MCHC RDW Plt Count MPV Neut % (Auto) Lymph % (Auto) Milam % (Auto) Eos % (Auto) Baso % (Auto) Neut # (Auto) Lymph # (Auto) Milam # (Auto) Eos # (Auto) Baso # (Auto) Neutrophils % (Manual) Band Neutrophils % Lymphocytes % (Manual) Monocytes % (Manual) Metamyelocytes % Platelet Estimate Hypochromasia (manual) Poikilocytosis (manual Anisocytosis (manual) PT 24.3 H INR 2.2 APTT 239 H* D Puncture Site pCO2 pO2 40 HCO3 ABG pH ABG Total CO2 ABG O2 Saturation ABG Base Excess ABG Hemoglobin ABG Carboxyhemoglobin POC ABG HHb (Measured) ABG Methemoglobin Bryce Test ABG Potassium VBG pH 7.39 VBG pCO2 26 L VBG HCO3 18.4 VBG Total CO2 16.5 L VBG O2 Sat (Calc) 80.1 H VBG Base Excess -7.6 L VBG Potassium 1.8 L* A-a O2 Difference Respiratory Index Hgb O2 Saturation Sodium 154 H 157.0 H Chloride 115 H 133.0 H Glucose 94 Lactate 1.5 Vent Mode Mechanical Rate FiO2 60.0 Tidal Volume PEEP 5 Crit Value Called To Dr kurtz Crit Value Called By [facility] Crit Value Read Back Y Blood Gas Notified Time 1045 Potassium 3.8 Carbon Dioxide 25 Anion Gap 17 BUN 44 H Creatinine 4.0 H Est GFR ( Amer) 15 Est GFR (Non-Af Amer) 12 Random Glucose 142 H Calcium 5.7 L* Phosphorus 4.5 Magnesium 1.9 Total Bilirubin 0.7 AST 923 H ALT 534 H D Alkaline Phosphatase 47 Total Protein 4.6 L Albumin 2.5 L Globulin 2.1 L Albumin/Globulin Ratio 1.2 Arterial Blood Potassium Venous Blood Potassium 1.8 L* 07/29/18 16:53 WBC RBC Hgb Hct MCV MCH MCHC RDW Plt Count MPV Neut % (Auto) Lymph % (Auto) Milam % (Auto) Eos % (Auto) Baso % (Auto) Neut # (Auto) Lymph # (Auto) Milam # (Auto) Eos # (Auto) Baso # (Auto) Neutrophils % (Manual) Band Neutrophils % Lymphocytes % (Manual) Monocytes % (Manual) Metamyelocytes % Platelet Estimate Hypochromasia (manual) Poikilocytosis (manual Anisocytosis (manual) PT INR APTT 55 H D Puncture Site pCO2 pO2 HCO3 ABG pH ABG Total CO2 ABG O2 Saturation ABG Base Excess ABG Hemoglobin ABG Carboxyhemoglobin POC ABG HHb (Measured) ABG Methemoglobin Bryce Test ABG Potassium VBG pH VBG pCO2 VBG HCO3 VBG Total CO2 VBG O2 Sat (Calc) VBG Base Excess VBG Potassium A-a O2 Difference Respiratory Index Hgb O2 Saturation Sodium Chloride Glucose Lactate Vent Mode Mechanical Rate FiO2 Tidal Volume PEEP Crit Value Called To Crit Value Called By Crit Value Read Back Blood Gas Notified Time Potassium Carbon Dioxide Anion Gap BUN Creatinine Est GFR ( Amer) Est GFR (Non-Af Amer) Random Glucose Calcium Phosphorus Magnesium Total Bilirubin AST ALT Alkaline Phosphatase Total Protein Albumin Globulin Albumin/Globulin Ratio Arterial Blood Potassium Venous Blood Potassium Attending/Attestation - Attestation I have personally seen and examined this patient.: Yes I have fully participated in the care of the patient.: Yes I have reviewed all pertinent clinical information: Yes Notes (Text): 07/29/18 17:40 patient seen and examined in the intensive care unit. patient tolerated CPAP for many hour Continue anticoagulation Continue antibiotics Surgical evaluation for possible cholecystitis NG tube feeding Follow up ABG and chest x-ray Patient is off bicarbonate drip Vasopressors
--- NOTE | 2018-07-29 16:11 | CP.PCM.PN ---
Subjective - Date & Time of Evaluation Date of Evaluation: 07/29/18 Time of Evaluation: 10:47 - Subjective Subjective: Gen Sx: Dr Mckeon Pt S&E. Remains intubated and on minimal sedation. Awake and alert. Communicates via writing. Reports abdominal pain, diffuse, but mainly to RUQ. Objective - Vital Signs/Intake and Output Vital Signs (last 24 hours): Temp Pulse Resp BP Pulse Ox 97.3 F L 62 20 111/72 100 07/29/18 12:00 07/29/18 15:55 07/29/18 15:55 07/29/18 15:55 07/29/18 15:25 Intake and Output: 07/29/18 07/29/18 06:59 18:59 Intake Total 2678.0 1285.6 Output Total 455 256 Balance 2223.0 1029.6 - Medications Medications: Current Medications Albuterol/Ipratropium (Duoneb 3 Mg/0.5 Mg (3 Ml) Ud) 3 ml INH RQ6 KACY Last Admin: 07/29/18 13:30 Dose: 3 ml Heparin Sodium/Sodium Chloride (Heparin 89586 Units/250ml 1/2 Normal Saline) 25,000 units in 250 mls @ 12.247 mls/hr IV .[id number] PRN; Protocol PRN Reason: ADJUST RATE PER PROTOCOL Last Titration: 07/29/18 10:00 Dose: 6 units/kg/hr, 4.355 mls/hr Norepinephrine Bitartrate 4 mg (/ Sodium Chloride) 250 mls @ 15 mls/hr IV .[id number] PRN; Protocol PRN Reason: TITRATE PER MD ORDER Last Admin: 07/29/18 15:52 Dose: 8 mcg/min, 30 mls/hr Cisatracurium Besylate 100 mg/ (Dextrose) 250 mls @ 32.66 mls/hr IV .[id number] PRN; Protocol PRN Reason: Agitation Last Titration: 07/28/18 19:02 Dose: 0 mcg/kg/min, 0 mls/hr Phenylephrine HCl 30 mg/ (Sodium Chloride) 250 mls @ 10 mls/hr IV .Q24H PRN; Protocol PRN Reason: TITRATE PER MD ORDER Last Titration: 07/28/18 15:37 Dose: 0 mcg/min, 0 mls/hr Vasopressin 40 units/ Sodium (Chloride) 40 mls @ 1.2 mls/hr IV .Q24H KACY; Protocol Last Admin: 07/29/18 12:08 Dose: Not Given Dexmedetomidine HCl 200 mcg/ (Sodium Chloride) 50 mls @ 3.63 mls/hr IV TITR PRN; Protocol PRN Reason: Sedation Last Titration: 07/29/18 15:08 Dose: 0.2 mcg/kg/hr, 3.63 mls/hr Metronidazole (Flagyl) 500 mg in 100 mls @ 100 mls/hr IVPB Q8H KACY; Protocol Last Admin: 07/29/18 09:30 Dose: 100 mls/hr Vancomycin HCl (Vancocin 750mg/Ns 150 Ml) 150 mls @ 100 mls/hr IVPB Q24H KACY; Protocol Last Admin: 07/28/18 11:48 Dose: 100 mls/hr Piperacillin Sod/Tazobactam (Sod 2.25 gm/ Sodium Chloride) 100 mls @ 200 mls/hr IVPB Q6H KACY; Protocol Last Admin: 07/29/18 15:54 Dose: 200 mls/hr Lidocaine HCl (Ltwsbe-P-Hcc) 1 ml MM 12O KACY Lorazepam (Ativan) 2 mg IVP Q4 PRN PRN Reason: Anxiety Last Admin: 07/29/18 15:21 Dose: 2 mg Methylprednisolone (Solu-Medrol) 40 mg IVP TID KACY Last Admin: 07/29/18 14:02 Dose: 40 mg Pantoprazole Sodium (Protonix Inj) 40 mg IVP Q12 KACY Last Admin: 07/29/18 09:17 Dose: 40 mg - Labs Labs: 07/29/18 06:15 07/29/18 06:15 PT 24.3 SECONDS (9.7-12.2) H 07/29/18 07:00 INR 2.2 07/29/18 07:00 APTT 239 SECONDS (21-34) H* D 07/29/18 07:00 - Constitutional Appears: Non-toxic - Cardiovascular Exam Cardiovascular Exam: Tachycardia, REGULAR RHYTHM - GI/Abdominal Exam GI & Abdominal Exam: Distended, Guarding (voluntary), Soft, Tenderness (diffuse, worse in RUQ). absent: Firm - Rectal Exam Rectal Exam: Deferred Assessment and Plan - Assessment and Plan (Free Text) Assessment: 48F w/ sepsis of unknown origin Plan: given recent imaging leading dx of source of sepsis would likely be the gallbladder it is thickwalled, with surround fluid. Correlates with physical exam and rise in LFTs would recommend IR placed cholecystostomy tube cont abx can consider CTA when pt more stable will d/w Dr Mike Leon, PGY4
--- NOTE | 2018-07-29 22:31 | CP.PCM.PN ---
Subjective - Date & Time of Evaluation Date of Evaluation: 07/29/18 Time of Evaluation: 15:00 - Subjective Subjective: dictated Objective - Vital Signs/Intake and Output Vital Signs (last 24 hours): Temp Pulse Resp BP Pulse Ox 97.6 F 62 20 114/69 98 07/29/18 20:00 07/29/18 20:10 07/29/18 20:10 07/29/18 20:10 07/29/18 20:10 Intake and Output: 07/29/18 07/30/18 18:59 06:59 Intake Total 1728.3 147.1 Output Total 346 40 Balance 1382.3 107.1 - Medications Medications: Current Medications Albuterol/Ipratropium (Duoneb 3 Mg/0.5 Mg (3 Ml) Ud) 3 ml INH RQ6 KACY Last Admin: 07/29/18 13:30 Dose: 3 ml Heparin Sodium/Sodium Chloride (Heparin 06650 Units/250ml 1/2 Normal Saline) 25,000 units in 250 mls @ 12.247 mls/hr IV .[id number] PRN; Protocol PRN Reason: ADJUST RATE PER PROTOCOL Last Titration: 07/29/18 10:00 Dose: 6 units/kg/hr, 4.355 mls/hr Norepinephrine Bitartrate 4 mg (/ Sodium Chloride) 250 mls @ 15 mls/hr IV .[id number] PRN; Protocol PRN Reason: TITRATE PER MD ORDER Last Titration: 07/29/18 21:15 Dose: 4 mcg/min, 15 mls/hr Cisatracurium Besylate 100 mg/ (Dextrose) 250 mls @ 32.66 mls/hr IV .Q7H40M PRN; Protocol PRN Reason: Agitation Last Titration: 07/28/18 19:02 Dose: 0 mcg/kg/min, 0 mls/hr Phenylephrine HCl 30 mg/ (Sodium Chloride) 250 mls @ 10 mls/hr IV .Q24H PRN; Protocol PRN Reason: TITRATE PER MD ORDER Last Titration: 07/28/18 15:37 Dose: 0 mcg/min, 0 mls/hr Vasopressin 40 units/ Sodium (Chloride) 40 mls @ 1.2 mls/hr IV .Q24H KACY; Protocol Last Admin: 07/29/18 12:08 Dose: Not Given Dexmedetomidine HCl 200 mcg/ (Sodium Chloride) 50 mls @ 3.63 mls/hr IV TITR PRN; Protocol PRN Reason: Sedation Last Admin: 07/29/18 21:47 Dose: 0.7 mcg/kg/hr, 12.7 mls/hr Metronidazole (Flagyl) 500 mg in 100 mls @ 100 mls/hr IVPB Q8H KACY; Protocol Last Admin: 07/29/18 17:57 Dose: 100 mls/hr Vancomycin HCl (Vancocin 750mg/Ns 150 Ml) 150 mls @ 100 mls/hr IVPB Q24H KACY; Protocol Last Admin: 07/28/18 11:48 Dose: 100 mls/hr Piperacillin Sod/Tazobactam (Sod 2.25 gm/ Sodium Chloride) 100 mls @ 200 mls/hr IVPB Q6H KACY; Protocol Last Admin: 07/29/18 21:58 Dose: 200 mls/hr Lorazepam (Ativan) 2 mg IVP Q4 PRN PRN Reason: Anxiety Last Admin: 07/29/18 21:57 Dose: 2 mg Methylprednisolone (Solu-Medrol) 40 mg IVP TID KACY Last Admin: 07/29/18 17:56 Dose: 40 mg Pantoprazole Sodium (Protonix Inj) 40 mg IVP Q12 KACY Last Admin: 07/29/18 21:58 Dose: 40 mg - Labs Labs: 07/29/18 06:15 07/29/18 06:15 PT 24.3 SECONDS (9.7-12.2) H 07/29/18 07:00 INR 2.2 07/29/18 07:00 APTT 55 SECONDS (21-34) H D 07/29/18 16:53
[2018-07-30] MEDS: metroNIDAZOLE IV 500 mg/100 ml 500 MG/100 ML BAG IVPB SCH (01:32)
[2018-07-30] MEDS: Dexmedetomidine Hydrochloride 200 MCG in Sodium Chloride 0.9% 48 ML IV PRN ×2 (01:33→06:00)
[2018-07-30] MEDS: Albuterol-Ipratrop 3 mg / 0.5 (3 ml) UD INH SCH ×4 (02:29→19:49)
--- NOTE | 2018-07-30 03:11 | PN ---
DATE: 07/29/2018 SUBJECTIVE: This patient was seen in bed 4 in ICU today. She was very awake. She wanted suction, she remained intubated but she was very alert in spite of being on sedation and she wanted to be suctioned, which I did tell to the nurse. PHYSICAL EXAMINATION: VITAL SIGNS: She remains afebrile. T-max is 97.6, pulse 62, blood pressure is 114/69, respirations are 20 on the ventilator. She has 100% saturation. HEENT: Head is atraumatic, normocephalic. She is intubated. NECK: Supple. LUNGS: Clear. No crackles or rales heard. HEART: S1, S2 are regular. ABDOMEN: Soft, nontender. No guarding, no rigidity present. EXTREMITIES: Have no edema. LABORATORY DATA: Labs are noted. Labs show white count is 24.6 today, hemoglobin is 8, hematocrit is 24, platelet count is 95, still low, neutrophils 82, bands are still 15, her PTT is elevated to 239. She is on heparin for her pulmonary embolism and DVT. ABG is better, pO2 is now 208 with a pH of 7.4, CO2 of 26, bicarb has become better and CO2 is 33, more normalizing. Her chest x-ray shows persistent small left pleural effusion with associated left basilar consolidative changes and no significant interval change. MEDICATIONS: She is on heparin, lorazepam, metronidazole was added on 07/27/2018, norepinephrine, phenylephrine, Zosyn, vancomycin and Flagyl. Vancomycin she is getting 750 every 24 hours because she had renal insufficiency. Her creatinine is 4, sodium is 154, chlorides are 115. ASSESSMENT AND PLAN: I would get a vancomycin random level tomorrow if she is not getting any dialysis and would hold it off, so we will get a vancomycin random level in the a.m. and if she is on dialysis then only we will give the vancomycin, otherwise we are going to substitute it for another antibiotic if need. The patient has pulmonary embolism, acute respiratory failure, DVT, remains septic with bandemia and high white count, renal failure on vasopressors. Actually, her platelets or on the low side also so cannot give Zyvox. We will follow. Serology, C. diff is negative. Drug screen was negative. Vancomycin random today is 19.2, so just we will get a random level tomorrow and we will probably not need to give anymore vancomycin. Smitha Slater MD
[2018-07-30] MEDS: Piperacillin/Tazobact 2.25 GM in Sodium Chloride 100 ML IVPB SCH ×4 (04:13→21:52)
[2018-07-30 05:57] LABS: ABG ALLEN TEST POS; ARTERIAL BLOOD GAS HCO3 24.7 mmol/L (21-28); ARTERIAL BLOOD GAS HEMOGLOBIN 7.2 g/dL (11.7-17.4); ARTERIAL BLOOD GAS O2 SAT 99.9 % (95-98); ARTERIAL BLOOD GAS PCO2 29 mm/Hg (35-45); ARTERIAL BLOOD GAS PO2 184 mm/Hg (80-100); ARTERIAL BLOOD GAS TCO2 23.5 mmol/L (22-28)
[2018-07-30 06:13] LABS: BASO % 0.1 % (0.0-2.0); EOS # 0.1 K/uL (0.0-0.7); EOS % 0.7 % (0.0-4.0); HEMOGLOBIN 7.4 g/dL (11.0-16.0); LYMPH # 0.5 K/uL (1.0-4.3); LYMPH % 2.4 % (20.0-40.0); MEAN CELL VOLUME 78.9 fL (81.0-99.0); MEAN CORPUSCULAR HEMOGLOBIN 26.5 pg (27.0-31.0); MEAN CORPUSCULAR HGB CONC 33.6 g/dL (33.0-37.0); MEAN PLATELET VOLUME 10.1 fL (7.2-11.7); MONO # 0.4 K/uL (0.0-0.8); MONO % 1.9 % (0.0-10.0); NEUT # 18.7 K/uL (1.8-7.0); NEUT % 94.9 % (50.0-75.0); NRBC % 0.2 % (0.0-2.0); PLATELET COUNT 74 K/uL (130-400); RBC 2.79 Mil/uL (3.80-5.20); RED CELL DISTRIBUTION WIDTH 14.4 % (11.5-14.5); WHITE BLOOD COUNT 19.7 K/uL (4.8-10.8)
[2018-07-30 06:32] LABS: INR 1.6; PROTHROMBIN TIME 17.7 SECONDS (9.7-12.2)
[2018-07-30 06:33] LABS: ALB/GLOB RATIO 1.1 (1.0-2.1); ALBUMIN 2.5 g/dL (3.5-5.0); CALCIUM 6.3 mg/dl (8.6-10.4)
[2018-07-30] MEDS ORDERED: DOPamine 400mg/250ml D5W 400 MG/250 ML BAG IV PRN (07:11)
[2018-07-30 08:17] LABS: BANDS 8 % (0-2); LYMPHOCYTE 2 % (20-40); MONOCYTE 1 % (0-10); NEUTROPHIL 89 % (50-75); TOTAL CELLS COUNTED 100
[2018-07-30 08:18] LABS: ANISOCYTOSIS SLIGHT; PLATELET ESTIMATE DECREASED (NORMAL); POIKILOCYTOSIS SLIGHT
[2018-07-30 08:19] LABS: HYPOCHROMIC MODERATE; OVALOCYTES SLIGHT; TARGET CELLS MODERATE
[2018-07-30 08:20] LABS: TOXIC GRANULATION PRESENT
--- NOTE | 2018-07-30 09:04 | CP.PCM.PN ---
Subjective - Date & Time of Evaluation Date of Evaluation: 07/30/18 Time of Evaluation: 09:01 - Subjective Subjective: Cardiology Progress Note Airam Rasmussen, PGY1 note for Dr. Ba Patient seen and examined at bedside. Currently off of pressors. Receiving heparin drip. Bradycardic overnight, received dopamine with HR currently in the 90s. Echo pending for tomorrow. Objective - Vital Signs/Intake and Output Vital Signs (last 24 hours): Temp Pulse Resp BP Pulse Ox 97.5 F L 52 L 20 127/76 99 07/30/18 04:00 07/30/18 07:41 07/30/18 07:41 07/30/18 07:41 07/30/18 07:41 Intake and Output: 07/30/18 07/30/18 06:59 18:59 Intake Total 954.1 38.7 Output Total 210 0 Balance 744.1 38.7 - Medications Medications: Current Medications Albuterol/Ipratropium (Duoneb 3 Mg/0.5 Mg (3 Ml) Ud) 3 ml INH RQ6 KACY Last Admin: 07/30/18 08:10 Dose: 3 ml Heparin Sodium/Sodium Chloride (Heparin 40222 Units/250ml 1/2 Normal Saline) 25,000 units in 250 mls @ 12.247 mls/hr IV .[id number] PRN; Protocol PRN Reason: ADJUST RATE PER PROTOCOL Last Titration: 07/29/18 23:45 Dose: 8 units/kg/hr, 5.806 mls/hr Norepinephrine Bitartrate 4 mg (/ Sodium Chloride) 250 mls @ 15 mls/hr IV .[id number] PRN; Protocol PRN Reason: TITRATE PER MD ORDER Last Titration: 07/30/18 05:40 Dose: 4 mcg/min, 15 mls/hr Cisatracurium Besylate 100 mg/ (Dextrose) 250 mls @ 32.66 mls/hr IV .Q7H40M PRN; Protocol PRN Reason: Agitation Last Titration: 07/28/18 19:02 Dose: 0 mcg/kg/min, 0 mls/hr Phenylephrine HCl 30 mg/ (Sodium Chloride) 250 mls @ 10 mls/hr IV .Q24H PRN; Protocol PRN Reason: TITRATE PER MD ORDER Last Titration: 07/28/18 15:37 Dose: 0 mcg/min, 0 mls/hr Vasopressin 40 units/ Sodium (Chloride) 40 mls @ 1.2 mls/hr IV .Q24H KACY; Protocol Last Admin: 07/29/18 12:08 Dose: Not Given Dexmedetomidine HCl 200 mcg/ (Sodium Chloride) 50 mls @ 3.63 mls/hr IV TITR PRN; Protocol PRN Reason: Sedation Last Admin: 07/30/18 06:00 Dose: 0.7 mcg/kg/hr, 12.7 mls/hr Metronidazole (Flagyl) 500 mg in 100 mls @ 100 mls/hr IVPB Q8H KACY; Protocol Last Admin: 07/30/18 01:32 Dose: 100 mls/hr Vancomycin HCl (Vancocin 750mg/Ns 150 Ml) 150 mls @ 100 mls/hr IVPB Q24H KACY; Protocol Last Admin: 07/28/18 11:48 Dose: 100 mls/hr Piperacillin Sod/Tazobactam (Sod 2.25 gm/ Sodium Chloride) 100 mls @ 200 mls/hr IVPB Q6H KACY; Protocol Last Admin: 07/30/18 04:13 Dose: 200 mls/hr Dopamine HCl/Dextrose (Dopamine 400mg/250ml D5w) 400 mg in 250 mls @ 6.875 mls/hr IV .Q24H PRN; Protocol PRN Reason: TITRATE PER MD ORDER Last Titration: 07/30/18 08:50 Dose: 0 mcg/kg/min, 0 mls/hr Lorazepam (Ativan) 2 mg IVP Q4 PRN PRN Reason: Anxiety Last Admin: 07/29/18 21:57 Dose: 2 mg Methylprednisolone (Solu-Medrol) 40 mg IVP TID KACY Last Admin: 07/29/18 17:56 Dose: 40 mg Pantoprazole Sodium (Protonix Inj) 40 mg IVP Q12 KACY Last Admin: 07/29/18 21:58 Dose: 40 mg - Labs Labs: 07/30/18 06:11 07/30/18 06:11 PT 17.7 SECONDS (9.7-12.2) H D 07/30/18 06:11 INR 1.6 D 07/30/18 06:11 APTT 45 SECONDS (21-34) H 07/30/18 06:11 - Constitutional Appears: No Acute Distress, Other (arousable, lethargic) - Head Exam Additional comments: left sided frontal hematoma appreciable - Eye Exam Eye Exam: EOMI Pupil Exam: PERRL - Respiratory Exam Respiratory Exam: Clear to Ausculation Bilateral. absent: Respiratory Distress - Cardiovascular Exam Cardiovascular Exam: REGULAR RHYTHM, +S1, +S2 - Extremities Exam Extremities Exam: absent: Calf Tenderness Additional comments: swelling appreciable B/L, stable from yesterday - Neurological Exam Neurological Exam: Alert Additional comments: follows simple commands, lethargic, arousable - Skin Skin Exam: Normal Color, Warm Additional comments: ecchymosis present at IV insertion in arm and IVJ Assessment and Plan - Assessment and Plan (Free Text) Assessment: This is a 48 year old female with PMH of anxiety presenting to the ED s/p witnessed syncopal episode after return from [place] on bus. Plan: B/L P.E., -currently on heparin drip -off of pressors, with stable vitals; pulse in the 90s, BP 123/75 -echo pending for tomorrow -echo showed normal LV EF, mild TR, pulmonary hypertension and RV dilated -will not do EKOS at this time due to unknown status of prothrombotic state -CTA showed diffuse bilateral pulmonary emboli of B/L central and segmental pulmonary arteries, pulmonary venous congestion compatible with CHF vs left basilar atelectasis vs pulmonary infarct -D-dimer > 5250, PT/INR/PTT elevated, elevated fibrinogen products, concern for for bleeding -s/p respiratory arrest, ACLS performed -LE duplex shows left acute thrombosis of the left common femoral vein Afib -EKG on admission showed afib with RVR at 146bpm, uncertain if new finding Case discussed with attending, further recommendations per Dr. Ba
--- NOTE | 2018-07-30 09:08 | CP.CCUPN ---
CCU Subjective - Physician Review Subjective (Free Text): Resident Critical Care Progress Note Patient examined at bedside. Patient is s/p intubation, however is alert, awake, able to communicate with writing. Off pressors, precedex discontinued. Continuing heparin drip. 07/30/18 09:22 Critical Care Time Spent (in minutes): 35 CCU Objective - Vital Signs / Intake & Output Vital Signs (Last 4 hours): Vital Signs Pulse Resp BP Pulse Ox 07/30/18 07:41 52 L 20 127/76 99 07/30/18 07:00 50 L 20 99 07/30/18 06:10 56 L 20 134/79 97 07/30/18 06:00 61 15 99 07/30/18 05:56 47 L 20 128/79 98 07/30/18 05:43 72 20 82/58 L 99 07/30/18 05:37 65 21 84/53 L 99 07/30/18 05:11 62 20 94/57 L 100 Intake and Output (Last 8hrs): Intake & Output 07/29/18 07/30/18 07/30/18 22:59 06:59 14:59 Intake Total 722.7 642.9 38.7 Output Total 165 135 0 Balance 557.7 507.9 38.7 Weight 202 lb 1.6 oz Intake: IV 151 238 7 Intake, IV Amount 571.7 404.9 31.7 Left Distal Port IJ - Y- 48.9 99.8 10.9 Port Left Distal Port Internal 35.2 45.0 5.8 Jugular Left Medial Port Internal 300 200 Jugular Left Proximal Port IJ Y- 187.6 60.1 15 Port Oral 0 0 0 Output: Urine 165 135 Urethral (Becerril) 165 135 Emesis 0 0 0 Other: # Bowel Movements 1 1 - Physical Exam Head: Positive for: Normocephalic, Ecchymosis Pupils: Positive for: PERRL Extroacular Muscles: Positive for: EOMI Conjunctiva: Positive for: Normal Mouth: Positive for: Dry Pharnyx: Positive for: Other (ett in place) Neck: Positive for: Trachea Midline Respiratory/Chest: Positive for: Good Air Exchange, Decreased Breath Sounds Cardiovascular: Positive for: Regular Rate and Rhythm, Normal S1, S2, Tachycardic Abdomen: Positive for: Tenderness (mild tenderness in right upper quadrant ) Upper Extremity: Positive for: Other (ecchymosis surrounding IV sites ). Negative for: Cyanosis Lower Extremity: Positive for: Edema. Negative for: CALF TENDERNESS, Temperature Abnormalties Skin: Positive for: Warm, Dry, Normal Color Psychiatric: Positive for: Alert, Anxious - Medications Active Medications: Active Medications Generic Name Dose Route Start Last Admin Trade Name Freq PRN Reason Stop Dose Admin Albuterol/Ipratropium 3 ml 07/29/18 14:00 07/30/18 08:10 Duoneb 3 Mg/0.5 Mg (3 Ml) Ud INH 3 ml RQ6 KACY Administration Heparin Sodium/Sodium Chloride 25,000 units in 250 mls @ 12.247 mls/hr 07:09 07/29/18 23:45 Heparin 03570 Units/250ml 1/2 Normal Saline IV 8 units/kg/hr .[id number] PRN 5.806 mls/hr ADJUST RATE PER PROTOCOL Titration Protocol 16.875 UNITS/KG/HR Norepinephrine Bitartrate 4 mg 250 mls @ 15 mls/hr 07/27/18 07:39 07/30/18 05:40 / Sodium Chloride IV 4 mcg/min .[id number] PRN 15 mls/hr TITRATE PER MD ORDER Titration Protocol 4 MCG/MIN Cisatracurium Besylate 100 mg/ 250 mls @ 32.66 mls/hr 07/27/18 08:24 07/28/18 19:02 Dextrose IV 0 mcg/kg/min .[id number] PRN 0 mls/hr Agitation Titration Protocol 3 MCG/KG/MIN Phenylephrine HCl 30 mg/ 250 mls @ 10 mls/hr 07/27/18 09:40 07/28/18 15:37 Sodium Chloride IV 0 mcg/min .Q24H PRN 0 mls/hr TITRATE PER MD ORDER Titration Protocol 20 MCG/MIN Vasopressin 40 units/ Sodium 40 mls @ 1.2 mls/hr 07/27/18 11:00 07/29/18 12:08 Chloride IV Not Given .Q24H KACY Protocol 0.02 UNITS/MIN Dexmedetomidine HCl 200 mcg/ 50 mls @ 3.63 mls/hr 07/27/18 16:08 07/30/18 06:00 Sodium Chloride IV 0.7 mcg/kg/hr TITR PRN 12.7 mls/hr Sedation Administration Protocol 0.2 MCG/KG/HR Metronidazole 500 mg in 100 mls @ 100 mls/hr 07/27/18 18:30 07/30/18 01:32 Flagyl IVPB 100 mls/hr Q8H KACY Administration Protocol Vancomycin HCl 150 mls @ 100 mls/hr 07/28/18 12:00 07/28/18 11:48 Vancocin 750mg/Ns 150 Ml IVPB 100 mls/hr Q24H KACY Administration Protocol Piperacillin Sod/Tazobactam 100 mls @ 200 mls/hr 07/28/18 10:00 07/30/18 04:13 Sod 2.25 gm/ Sodium Chloride IVPB 200 mls/hr Q6H KACY Administration Protocol Dopamine HCl/Dextrose 400 mg in 250 mls @ 6.875 mls/hr 07/30/18 07:11 07/30/18 08:50 Dopamine 400mg/250ml D5w IV 0 mcg/kg/min .Q24H PRN 0 mls/hr TITRATE PER MD ORDER Titration Protocol 2 MCG/KG/MIN Lorazepam 2 mg 07/27/18 08:25 07/29/18 21:57 Ativan IVP 2 mg Q4 PRN Administration Anxiety Methylprednisolone 40 mg 07/27/18 10:00 07/29/18 17:56 Solu-Medrol IVP 40 mg TID KACY Administration Pantoprazole Sodium 40 mg 07/27/18 10:00 07/29/18 21:58 Protonix Inj IVP 40 mg Q12 KACY Administration - Patient Studies Lab Studies: Microbiology Studies 07/29/18 00:28 Gram Stain - Final Sputum 07/27/18 18:26 Stool Culture - Final Stool NO SALMONELLA, SHIGELLA OR CAMPYLOBACTER ISOLATED. 07/27/18 10:29 Blood Culture - Preliminary Blood-Venous NO GROWTH AFTER 48 HOURS 07/27/18 10:04 Blood Culture - Preliminary Blood-Venous NO GROWTH AFTER 48 HOURS Lab Studies 07/30/18 07/30/18 07/30/18 Range/Units 06:11 06:11 06:11 WBC (4.8-10.8) K/uL RBC (3.80-5.20) Mil/uL Hgb (11.0-16.0) g/dL Hct (34.0-47.0) % MCV (81.0-99.0) fL MCH (27.0-31.0) pg MCHC (33.0-37.0) g/dL RDW (11.5-14.5) % Plt Count (130-400) K/uL MPV (7.2-11.7) fL Neut % (Auto) (50.0-75.0) % Lymph % (Auto) (20.0-40.0) % Dickens % (Auto) (0.0-10.0) % Eos % (Auto) (0.0-4.0) % Baso % (Auto) (0.0-2.0) % Neut # (Auto) (1.8-7.0) K/uL Lymph # (Auto) (1.0-4.3) K/uL Dickens # (Auto) (0.0-0.8) K/uL Eos # (Auto) (0.0-0.7) K/uL Baso # (Auto) (0.0-0.2) K/uL Neutrophils % (Manual) (50-75) % Band Neutrophils % (0-2) % Lymphocytes % (Manual) (20-40) % Monocytes % (Manual) (0-10) % Toxic Granulation Platelet Estimate (NORMAL) Hypochromasia (manual) Poikilocytosis (manual Anisocytosis (manual) Target Cells Ovalocytes PT 17.7 H D (9.7-12.2) SECONDS INR 1.6 D APTT 45 H (21-34) SECONDS Puncture Site pCO2 (35-45) mm/Hg pO2 (30-55) mm/Hg HCO3 (21-28) mmol/L ABG pH (7.35-7.45) ABG Total CO2 (22-28) mmol/L ABG O2 Saturation (95-98) % ABG Base Excess (-2.0-3.0) mmol/L ABG Hemoglobin (11.7-17.4) g/dL ABG Carboxyhemoglobin (0.5-1.5) % POC ABG HHb (Measured) (0.0-5.0) % ABG Methemoglobin (0.0-3.0) % Bryce Test VBG pH (7.32-7.43) VBG pCO2 (40-60) mmHg VBG HCO3 mmol/L VBG Total CO2 (22-28) mmol/L VBG O2 Sat (Calc) (40-65) % VBG Base Excess (0.0-2.0) mmol/L VBG Potassium (3.6-5.2) mmol/L A-a O2 Difference mm/Hg Respiratory Index Hgb O2 Saturation (95.0-98.0) % Sodium 156 H (132-148) mmol/l Chloride 117 H (98-107) mmol/L Glucose (65-105) mg/dl Lactate (0.7-2.1) mmol/L Vent Mode Mechanical Rate FiO2 % Tidal Volume PEEP Crit Value Called To Crit Value Called By Crit Value Read Back Blood Gas Notified Time Potassium 3.6 (3.6-5.2) mmol/L Carbon Dioxide 26 (22-30) mmol/L Anion Gap 17 (10-20) BUN 53 H (7-17) mg/dL Creatinine 5.3 H (0.7-1.2) mg/dL Est GFR ( Amer) 11 Est GFR (Non-Af Amer) 9 Random Glucose 144 H (65-105) mg/dL Lactic Acid (0.7-2.1) mmol/L Calcium 6.3 L (8.6-10.4) mg/dl Phosphorus 4.6 H (2.5-4.5) mg/dL Magnesium 2.1 (1.6-2.3) mg/dL Total Bilirubin 0.7 (0.2-1.3) mg/dL AST 528 H D (14-36) U/L ALT 469 H (9-52) U/L Alkaline Phosphatase 54 (38-126) U/L Total Protein 4.8 L (6.3-8.3) g/dL Albumin 2.5 L (3.5-5.0) g/dL Globulin 2.3 (2.2-3.9) gm/dL Albumin/Globulin Ratio 1.1 (1.0-2.1) Venous Blood Potassium (3.6-5.2) mmol/L Random Vancomycin 17.9 ug/mL 07/30/18 07/30/18 07/29/18 Range/Units 06:11 04:41 23:12 WBC 19.7 H (4.8-10.8) K/uL RBC 2.79 L (3.80-5.20) Mil/uL Hgb 7.4 L (11.0-16.0) g/dL Hct 22.0 L (34.0-47.0) % MCV 78.9 L (81.0-99.0) fL MCH 26.5 L (27.0-31.0) pg MCHC 33.6 (33.0-37.0) g/dL RDW 14.4 (11.5-14.5) % Plt Count 74 L D (130-400) K/uL MPV 10.1 (7.2-11.7) fL Neut % (Auto) 94.9 H (50.0-75.0) % Lymph % (Auto) 2.4 L (20.0-40.0) % Dickens % (Auto) 1.9 (0.0-10.0) % Eos % (Auto) 0.7 (0.0-4.0) % Baso % (Auto) 0.1 (0.0-2.0) % Neut # (Auto) 18.7 H (1.8-7.0) K/uL Lymph # (Auto) 0.5 L (1.0-4.3) K/uL Dickens # (Auto) 0.4 (0.0-0.8) K/uL Eos # (Auto) 0.1 (0.0-0.7) K/uL Baso # (Auto) 0.0 (0.0-0.2) K/uL Neutrophils % (Manual) 89 H (50-75) % Band Neutrophils % 8 H (0-2) % Lymphocytes % (Manual) 2 L (20-40) % Monocytes % (Manual) 1 (0-10) % Toxic Granulation Present Platelet Estimate Decreased L (NORMAL) Hypochromasia (manual) Moderate Poikilocytosis (manual Slight Anisocytosis (manual) Slight Target Cells Moderate Ovalocytes Slight PT (9.7-12.2) SECONDS INR APTT 43 H D (21-34) SECONDS Puncture Site R rad pCO2 29 L (35-45) mm/Hg pO2 184 H (30-55) mm/Hg HCO3 24.7 (21-28) mmol/L ABG pH 7.50 H (7.35-7.45) ABG Total CO2 23.5 (22-28) mmol/L ABG O2 Saturation 99.9 H (95-98) % ABG Base Excess -0.4 (-2.0-3.0) mmol/L ABG Hemoglobin 7.2 L (11.7-17.4) g/dL ABG Carboxyhemoglobin 1.2 (0.5-1.5) % POC ABG HHb (Measured) 0.1 (0.0-5.0) % ABG Methemoglobin 0.7 (0.0-3.0) % Bryce Test Pos VBG pH (7.32-7.43) VBG pCO2 (40-60) mmHg VBG HCO3 mmol/L VBG Total CO2 (22-28) mmol/L VBG O2 Sat (Calc) (40-65) % VBG Base Excess (0.0-2.0) mmol/L VBG Potassium (3.6-5.2) mmol/L A-a O2 Difference 136.0 mm/Hg Respiratory Index 0.7 Hgb O2 Saturation 98.0 (95.0-98.0) % Sodium (132-148) mmol/l Chloride (98-107) mmol/L Glucose (65-105) mg/dl Lactate (0.7-2.1) mmol/L Vent Mode Prvc Mechanical Rate 20 FiO2 50.0 % Tidal Volume 500 PEEP 5 Crit Value Called To Crit Value Called By Crit Value Read Back Blood Gas Notified Time Potassium (3.6-5.2) mmol/L Carbon Dioxide (22-30) mmol/L Anion Gap (10-20) BUN (7-17) mg/dL Creatinine (0.7-1.2) mg/dL Est GFR ( Amer) Est GFR (Non-Af Amer) Random Glucose (65-105) mg/dL Lactic Acid (0.7-2.1) mmol/L Calcium (8.6-10.4) mg/dl Phosphorus (2.5-4.5) mg/dL Magnesium (1.6-2.3) mg/dL Total Bilirubin (0.2-1.3) mg/dL AST (14-36) U/L ALT (9-52) U/L Alkaline Phosphatase (38-126) U/L Total Protein (6.3-8.3) g/dL Albumin (3.5-5.0) g/dL Globulin (2.2-3.9) gm/dL Albumin/Globulin Ratio (1.0-2.1) Venous Blood Potassium (3.6-5.2) mmol/L Random Vancomycin ug/mL 07/29/18 07/29/18 07/29/18 Range/Units 18:23 18:23 16:53 WBC (4.8-10.8) K/uL RBC (3.80-5.20) Mil/uL Hgb (11.0-16.0) g/dL Hct (34.0-47.0) % MCV (81.0-99.0) fL MCH (27.0-31.0) pg MCHC (33.0-37.0) g/dL RDW (11.5-14.5) % Plt Count (130-400) K/uL MPV (7.2-11.7) fL Neut % (Auto) (50.0-75.0) % Lymph % (Auto) (20.0-40.0) % Dickens % (Auto) (0.0-10.0) % Eos % (Auto) (0.0-4.0) % Baso % (Auto) (0.0-2.0) % Neut # (Auto) (1.8-7.0) K/uL Lymph # (Auto) (1.0-4.3) K/uL Dickens # (Auto) (0.0-0.8) K/uL Eos # (Auto) (0.0-0.7) K/uL Baso # (Auto) (0.0-0.2) K/uL Neutrophils % (Manual) (50-75) % Band Neutrophils % (0-2) % Lymphocytes % (Manual) (20-40) % Monocytes % (Manual) (0-10) % Toxic Granulation Platelet Estimate (NORMAL) Hypochromasia (manual) Poikilocytosis (manual Anisocytosis (manual) Target Cells Ovalocytes PT (9.7-12.2) SECONDS INR APTT 55 H D (21-34) SECONDS Puncture Site pCO2 (35-45) mm/Hg pO2 (30-55) mm/Hg HCO3 (21-28) mmol/L ABG pH (7.35-7.45) ABG Total CO2 (22-28) mmol/L ABG O2 Saturation (95-98) % ABG Base Excess (-2.0-3.0) mmol/L ABG Hemoglobin (11.7-17.4) g/dL ABG Carboxyhemoglobin (0.5-1.5) % POC ABG HHb (Measured) (0.0-5.0) % ABG Methemoglobin (0.0-3.0) % Bryce Test VBG pH (7.32-7.43) VBG pCO2 (40-60) mmHg VBG HCO3 mmol/L VBG Total CO2 (22-28) mmol/L VBG O2 Sat (Calc) (40-65) % VBG Base Excess (0.0-2.0) mmol/L VBG Potassium (3.6-5.2) mmol/L A-a O2 Difference mm/Hg Respiratory Index Hgb O2 Saturation (95.0-98.0) % Sodium (132-148) mmol/l Chloride (98-107) mmol/L Glucose (65-105) mg/dl Lactate (0.7-2.1) mmol/L Vent Mode Mechanical Rate FiO2 % Tidal Volume PEEP Crit Value Called To Crit Value Called By Crit Value Read Back Blood Gas Notified Time Potassium (3.6-5.2) mmol/L Carbon Dioxide (22-30) mmol/L Anion Gap (10-20) BUN (7-17) mg/dL Creatinine (0.7-1.2) mg/dL Est GFR ( Amer) Est GFR (Non-Af Amer) Random Glucose (65-105) mg/dL Lactic Acid 2.9 H (0.7-2.1) mmol/L Calcium (8.6-10.4) mg/dl Phosphorus (2.5-4.5) mg/dL Magnesium (1.6-2.3) mg/dL Total Bilirubin (0.2-1.3) mg/dL AST (14-36) U/L ALT (9-52) U/L Alkaline Phosphatase (38-126) U/L Total Protein (6.3-8.3) g/dL Albumin (3.5-5.0) g/dL Globulin (2.2-3.9) gm/dL Albumin/Globulin Ratio (1.0-2.1) Venous Blood Potassium (3.6-5.2) mmol/L Random Vancomycin 19.2 ug/mL 07/29/18 Range/Units 10:39 WBC (4.8-10.8) K/uL RBC (3.80-5.20) Mil/uL Hgb (11.0-16.0) g/dL Hct (34.0-47.0) % MCV (81.0-99.0) fL MCH (27.0-31.0) pg MCHC (33.0-37.0) g/dL RDW (11.5-14.5) % Plt Count (130-400) K/uL MPV (7.2-11.7) fL Neut % (Auto) (50.0-75.0) % Lymph % (Auto) (20.0-40.0) % Dickens % (Auto) (0.0-10.0) % Eos % (Auto) (0.0-4.0) % Baso % (Auto) (0.0-2.0) % Neut # (Auto) (1.8-7.0) K/uL Lymph # (Auto) (1.0-4.3) K/uL Dickens # (Auto) (0.0-0.8) K/uL Eos # (Auto) (0.0-0.7) K/uL Baso # (Auto) (0.0-0.2) K/uL Neutrophils % (Manual) (50-75) % Band Neutrophils % (0-2) % Lymphocytes % (Manual) (20-40) % Monocytes % (Manual) (0-10) % Toxic Granulation Platelet Estimate (NORMAL) Hypochromasia (manual) Poikilocytosis (manual Anisocytosis (manual) Target Cells Ovalocytes PT (9.7-12.2) SECONDS INR APTT (21-34) SECONDS Puncture Site pCO2 (35-45) mm/Hg pO2 40 (30-55) mm/Hg HCO3 (21-28) mmol/L ABG pH (7.35-7.45) ABG Total CO2 (22-28) mmol/L ABG O2 Saturation (95-98) % ABG Base Excess (-2.0-3.0) mmol/L ABG Hemoglobin (11.7-17.4) g/dL ABG Carboxyhemoglobin (0.5-1.5) % POC ABG HHb (Measured) (0.0-5.0) % ABG Methemoglobin (0.0-3.0) % Bryce Test VBG pH 7.39 (7.32-7.43) VBG pCO2 26 L (40-60) mmHg VBG HCO3 18.4 mmol/L VBG Total CO2 16.5 L (22-28) mmol/L VBG O2 Sat (Calc) 80.1 H (40-65) % VBG Base Excess -7.6 L (0.0-2.0) mmol/L VBG Potassium 1.8 L* (3.6-5.2) mmol/L A-a O2 Difference mm/Hg Respiratory Index Hgb O2 Saturation (95.0-98.0) % Sodium 157.0 H (132-148) mmol/l Chloride 133.0 H (98-107) mmol/L Glucose 94 (65-105) mg/dl Lactate 1.5 (0.7-2.1) mmol/L Vent Mode Mechanical Rate FiO2 60.0 % Tidal Volume PEEP 5 Crit Value Called To Dr kurtz Crit Value Called By Philip [facility] w[facility] Crit Value Read Back Y Blood Gas Notified Time 1045 Potassium (3.6-5.2) mmol/L Carbon Dioxide (22-30) mmol/L Anion Gap (10-20) BUN (7-17) mg/dL Creatinine (0.7-1.2) mg/dL Est GFR ( Amer) Est GFR (Non-Af Amer) Random Glucose (65-105) mg/dL Lactic Acid (0.7-2.1) mmol/L Calcium (8.6-10.4) mg/dl Phosphorus (2.5-4.5) mg/dL Magnesium (1.6-2.3) mg/dL Total Bilirubin (0.2-1.3) mg/dL AST (14-36) U/L ALT (9-52) U/L Alkaline Phosphatase (38-126) U/L Total Protein (6.3-8.3) g/dL Albumin (3.5-5.0) g/dL Globulin (2.2-3.9) gm/dL Albumin/Globulin Ratio (1.0-2.1) Venous Blood Potassium 1.8 L* (3.6-5.2) mmol/L Random Vancomycin ug/mL Laboratory Results - last 24 hr 07/29/18 07/29/18 07/29/18 10:39 16:53 18:23 WBC RBC Hgb Hct MCV MCH MCHC RDW Plt Count MPV Neut % (Auto) Lymph % (Auto) Dickens % (Auto) Eos % (Auto) Baso % (Auto) Neut # (Auto) Lymph # (Auto) Dickens # (Auto) Eos # (Auto) Baso # (Auto) Neutrophils % (Manual) Band Neutrophils % Lymphocytes % (Manual) Monocytes % (Manual) Toxic Granulation Platelet Estimate Hypochromasia (manual) Poikilocytosis (manual Anisocytosis (manual) Target Cells Ovalocytes PT INR APTT 55 H D Puncture Site pCO2 pO2 40 HCO3 ABG pH ABG Total CO2 ABG O2 Saturation ABG Base Excess ABG Hemoglobin ABG Carboxyhemoglobin POC ABG HHb (Measured) ABG Methemoglobin Bryce Test VBG pH 7.39 VBG pCO2 26 L VBG HCO3 18.4 VBG Total CO2 16.5 L VBG O2 Sat (Calc) 80.1 H VBG Base Excess -7.6 L VBG Potassium 1.8 L* A-a O2 Difference Respiratory Index Hgb O2 Saturation Sodium 157.0 H Chloride 133.0 H Glucose 94 Lactate 1.5 Vent Mode Mechanical Rate FiO2 60.0 Tidal Volume PEEP 5 Crit Value Called To Dr kurtz Crit Value Called By Philip [facility] [place] [facility] Crit Value Read Back Y Blood Gas Notified Time 1045 Potassium Carbon Dioxide Anion Gap BUN Creatinine Est GFR ( Amer) Est GFR (Non-Af Amer) Random Glucose Lactic Acid Calcium Phosphorus Magnesium Total Bilirubin AST ALT Alkaline Phosphatase Total Protein Albumin Globulin Albumin/Globulin Ratio Venous Blood Potassium 1.8 L* Random Vancomycin 19.2 07/29/18 07/29/18 07/30/18 18:23 23:12 04:41 WBC RBC Hgb Hct MCV MCH MCHC RDW Plt Count MPV Neut % (Auto) Lymph % (Auto) Dickens % (Auto) Eos % (Auto) Baso % (Auto) Neut # (Auto) Lymph # (Auto) Dickens # (Auto) Eos # (Auto) Baso # (Auto) Neutrophils % (Manual) Band Neutrophils % Lymphocytes % (Manual) Monocytes % (Manual) Toxic Granulation Platelet Estimate Hypochromasia (manual) Poikilocytosis (manual Anisocytosis (manual) Target Cells Ovalocytes PT INR APTT 43 H D Puncture Site R rad pCO2 29 L pO2 184 H HCO3 24.7 ABG pH 7.50 H ABG Total CO2 23.5 ABG O2 Saturation 99.9 H ABG Base Excess -0.4 ABG Hemoglobin 7.2 L ABG Carboxyhemoglobin 1.2 POC ABG HHb (Measured) 0.1 ABG Methemoglobin 0.7 Bryce Test Pos VBG pH VBG pCO2 VBG HCO3 VBG Total CO2 VBG O2 Sat (Calc) VBG Base Excess VBG Potassium A-a O2 Difference 136.0 Respiratory Index 0.7 Hgb O2 Saturation 98.0 Sodium Chloride Glucose Lactate Vent Mode Prvc Mechanical Rate 20 FiO2 50.0 Tidal Volume 500 PEEP 5 Crit Value Called To Crit Value Called By Crit Value Read Back Blood Gas Notified Time Potassium Carbon Dioxide Anion Gap BUN Creatinine Est GFR ( Amer) Est GFR (Non-Af Amer) Random Glucose Lactic Acid 2.9 H Calcium Phosphorus Magnesium Total Bilirubin AST ALT Alkaline Phosphatase Total Protein Albumin Globulin Albumin/Globulin Ratio Venous Blood Potassium Random Vancomycin 07/30/18 07/30/18 07/30/18 06:11 06:11 06:11 WBC 19.7 H RBC 2.79 L Hgb 7.4 L Hct 22.0 L MCV 78.9 L MCH 26.5 L MCHC 33.6 RDW 14.4 Plt Count 74 L D MPV 10.1 Neut % (Auto) 94.9 H Lymph % (Auto) 2.4 L Dickens % (Auto) 1.9 Eos % (Auto) 0.7 Baso % (Auto) 0.1 Neut # (Auto) 18.7 H Lymph # (Auto) 0.5 L Dickens # (Auto) 0.4 Eos # (Auto) 0.1 Baso # (Auto) 0.0 Neutrophils % (Manual) 89 H Band Neutrophils % 8 H Lymphocytes % (Manual) 2 L Monocytes % (Manual) 1 Toxic Granulation Present Platelet Estimate Decreased L Hypochromasia (manual) Moderate Poikilocytosis (manual Slight Anisocytosis (manual) Slight Target Cells Moderate Ovalocytes Slight PT INR APTT Puncture Site pCO2 pO2 HCO3 ABG pH ABG Total CO2 ABG O2 Saturation ABG Base Excess ABG Hemoglobin ABG Carboxyhemoglobin POC ABG HHb (Measured) ABG Methemoglobin Bryce Test VBG pH VBG pCO2 VBG HCO3 VBG Total CO2 VBG O2 Sat (Calc) VBG Base Excess VBG Potassium A-a O2 Difference Respiratory Index Hgb O2 Saturation Sodium 156 H Chloride 117 H Glucose Lactate Vent Mode Mechanical Rate FiO2 Tidal Volume PEEP Crit Value Called To Crit Value Called By Crit Value Read Back Blood Gas Notified Time Potassium 3.6 Carbon Dioxide 26 Anion Gap 17 BUN 53 H Creatinine 5.3 H Est GFR ( Amer) 11 Est GFR (Non-Af Amer) 9 Random Glucose 144 H Lactic Acid Calcium 6.3 L Phosphorus 4.6 H Magnesium 2.1 Total Bilirubin 0.7 AST 528 H D ALT 469 H Alkaline Phosphatase 54 Total Protein 4.8 L Albumin 2.5 L Globulin 2.3 Albumin/Globulin Ratio 1.1 Venous Blood Potassium Random Vancomycin 17.9 07/30/18 06:11 WBC RBC Hgb Hct MCV MCH MCHC RDW Plt Count MPV Neut % (Auto) Lymph % (Auto) Dickens % (Auto) Eos % (Auto) Baso % (Auto) Neut # (Auto) Lymph # (Auto) Dickens # (Auto) Eos # (Auto) Baso # (Auto) Neutrophils % (Manual) Band Neutrophils % Lymphocytes % (Manual) Monocytes % (Manual) Toxic Granulation Platelet Estimate Hypochromasia (manual) Poikilocytosis (manual Anisocytosis (manual) Target Cells Ovalocytes PT 17.7 H D INR 1.6 D APTT 45 H Puncture Site pCO2 pO2 HCO3 ABG pH ABG Total CO2 ABG O2 Saturation ABG Base Excess ABG Hemoglobin ABG Carboxyhemoglobin POC ABG HHb (Measured) ABG Methemoglobin Bryce Test VBG pH VBG pCO2 VBG HCO3 VBG Total CO2 VBG O2 Sat (Calc) VBG Base Excess VBG Potassium A-a O2 Difference Respiratory Index Hgb O2 Saturation Sodium Chloride Glucose Lactate Vent Mode Mechanical Rate FiO2 Tidal Volume PEEP Crit Value Called To Crit Value Called By Crit Value Read Back Blood Gas Notified Time Potassium Carbon Dioxide Anion Gap BUN Creatinine Est GFR ( Amer) Est GFR (Non-Af Amer) Random Glucose Lactic Acid Calcium Phosphorus Magnesium Total Bilirubin AST ALT Alkaline Phosphatase Total Protein Albumin Globulin Albumin/Globulin Ratio Venous Blood Potassium Random Vancomycin Fingerstick Blood Sugar Results: 288 Review of Systems - Review of Systems Systems not reviewed;Unavailable: Intubated Critical Care Progress Note - Vent Settings TIDAL VOLUME:: 500 RESP RATE:: 30 FIO2:: 100 PEEP:: 5 Assessment/Plan - Assessment and Plan (Free Text) Assessment: Patient is a 48 year old female with past medical history of anxiety presenting to ED with shortness of breath, syncope, and chest pain, went into cardiac arrest, now s/p intubation and found to have bilateral PE and septic shock. Plan: Neuro: - Alert, following commands - Head CT shows no acute intracranial abnormality, left forehead soft tissue swelling - discontinued precedex Pulm: - s/p intubation - CXR shows interval left basilar atelectasis favored over infiltrate with possible small pleural effusions, atelectasis medial right apex - maintain SPO2> 92 % - Duonebs 3 ml INH RQ6 - Nebulizer treatment CV: - maintain MAP> 65 - discontinued all pressors - D-dimer > 5250 - Chest CT shows extensive bilateral lower lobe proximal PE, smaller emboli within upper lobes and middle lobe, cardiomegaly - Venous dopplers show DVT in left common femoral vein - ECHO shows LVEF 73%, diastolic dysfunction, mild-mod dilated RV - Cardiology consulted. Appreciate recs. - Consider IVC filter when stable GI: - Abd/pelvis CT shows mild ileus, questionable enteritis, postoperative changes of stomach - Diarrhea noted. FOBT positive. C.diff, salmonella, shigella, campylobacter negative. - Procal >200 - Protonix 40 mg IV Q12 - Consider CTA of abdomen once stable for ischemic colitis - Abd U/S shows cholecystitis, hold off on cholecystostomy for now as patient is clinically improving - Tube feeds starting today Renal: - BRIAN, Cr uptrending - oliguric - monitor I and Os - monitor and replete electrolytes Endo: - maintain euglycemia with blood sugars 140-180 - holding ISS Heme: - monitor H&H - heparin 4000 units IV given once - heparin drip low dose - Heme/onc consulted. Appreciate recs. - DIC resolved, fibrinogen level 67 -> 439 ID: - Afebrile, WBCs and bands trending down - 10/1 BCx NG after 48 hrs x2, UCx no growth - Flagyl 500 mg IV Q8H discontinued - Vancomycin 750 mg IV daily held due to BRIAN - Zosyn 2.25 gm IV Q6H Dispo: ICU, s/p intubation FEN: tube feeding Access: central line, peripheral IVs Consults: Cardio, Neuro PPX: Protonix for GI, SCDs contraindicated d/t DVT Patient seen, reviewed, and discussed with attending, Dr. Bindu Chowdary PGY-1 - Date & Time Date: 07/30/18 Time: 09:11
--- NOTE | 2018-07-30 09:18 | CP.PCM.PN ---
Subjective - Date & Time of Evaluation Date of Evaluation: 07/30/18 Time of Evaluation: 07:40 - Subjective Subjective: General/Vascular Surgery Pt seen and examined. Remains intubated and on minimal sedation. Awake and alert. Communicates via writing. Reports abdominal pain, diffuse, but mainly to RUQ. Heparin drip on, also levophed drip resumed this AM due to low BP Objective - Vital Signs/Intake and Output Vital Signs (last 24 hours): Temp Pulse Resp BP Pulse Ox 97.5 F L 52 L 20 127/76 99 07/30/18 04:00 07/30/18 07:41 07/30/18 07:41 07/30/18 07:41 07/30/18 07:41 Intake and Output: 07/30/18 07/30/18 06:59 18:59 Intake Total 954.1 38.7 Output Total 210 0 Balance 744.1 38.7 - Medications Medications: Current Medications Albuterol/Ipratropium (Duoneb 3 Mg/0.5 Mg (3 Ml) Ud) 3 ml INH RQ6 KACY Last Admin: 07/30/18 08:10 Dose: 3 ml Heparin Sodium/Sodium Chloride (Heparin 66584 Units/250ml 1/2 Normal Saline) 25,000 units in 250 mls @ 12.247 mls/hr IV .[id number] PRN; Protocol PRN Reason: ADJUST RATE PER PROTOCOL Last Titration: 07/29/18 23:45 Dose: 8 units/kg/hr, 5.806 mls/hr Norepinephrine Bitartrate 4 mg (/ Sodium Chloride) 250 mls @ 15 mls/hr IV .[id number] PRN; Protocol PRN Reason: TITRATE PER MD ORDER Last Titration: 07/30/18 05:40 Dose: 4 mcg/min, 15 mls/hr Cisatracurium Besylate 100 mg/ (Dextrose) 250 mls @ 32.66 mls/hr IV .Q7H40M PRN; Protocol PRN Reason: Agitation Last Titration: 07/28/18 19:02 Dose: 0 mcg/kg/min, 0 mls/hr Phenylephrine HCl 30 mg/ (Sodium Chloride) 250 mls @ 10 mls/hr IV .Q24H PRN; Protocol PRN Reason: TITRATE PER MD ORDER Last Titration: 07/28/18 15:37 Dose: 0 mcg/min, 0 mls/hr Vasopressin 40 units/ Sodium (Chloride) 40 mls @ 1.2 mls/hr IV .Q24H KACY; Protocol Last Admin: 07/29/18 12:08 Dose: Not Given Dexmedetomidine HCl 200 mcg/ (Sodium Chloride) 50 mls @ 3.63 mls/hr IV TITR PRN; Protocol PRN Reason: Sedation Last Admin: 07/30/18 06:00 Dose: 0.7 mcg/kg/hr, 12.7 mls/hr Metronidazole (Flagyl) 500 mg in 100 mls @ 100 mls/hr IVPB Q8H KACY; Protocol Last Admin: 07/30/18 01:32 Dose: 100 mls/hr Vancomycin HCl (Vancocin 750mg/Ns 150 Ml) 150 mls @ 100 mls/hr IVPB Q24H KACY; Protocol Last Admin: 07/28/18 11:48 Dose: 100 mls/hr Piperacillin Sod/Tazobactam (Sod 2.25 gm/ Sodium Chloride) 100 mls @ 200 mls/hr IVPB Q6H KACY; Protocol Last Admin: 07/30/18 04:13 Dose: 200 mls/hr Dopamine HCl/Dextrose (Dopamine 400mg/250ml D5w) 400 mg in 250 mls @ 6.875 mls/hr IV .Q24H PRN; Protocol PRN Reason: TITRATE PER MD ORDER Last Titration: 07/30/18 08:50 Dose: 0 mcg/kg/min, 0 mls/hr Lorazepam (Ativan) 2 mg IVP Q4 PRN PRN Reason: Anxiety Last Admin: 07/29/18 21:57 Dose: 2 mg Methylprednisolone (Solu-Medrol) 40 mg IVP TID KACY Last Admin: 07/29/18 17:56 Dose: 40 mg Pantoprazole Sodium (Protonix Inj) 40 mg IVP Q12 KACY Last Admin: 07/29/18 21:58 Dose: 40 mg - Labs Labs: 07/30/18 06:11 07/30/18 06:11 PT 17.7 SECONDS (9.7-12.2) H D 07/30/18 06:11 INR 1.6 D 07/30/18 06:11 APTT 45 SECONDS (21-34) H 07/30/18 06:11 - Constitutional Appears: Non-toxic, No Acute Distress - Head Exam Head Exam: NORMOCEPHALIC - Eye Exam Eye Exam: EOMI. absent: Scleral icterus - Respiratory Exam Respiratory Exam: NORMAL BREATHING PATTERN (on vent). absent: Respiratory Distress - Cardiovascular Exam Cardiovascular Exam: Bradycardia, +S1, +S2 - GI/Abdominal Exam GI & Abdominal Exam: Soft, Tenderness (mild in ruq). absent: Distended, Firm, Guarding, Rigid, Rebound - Extremities Exam Extremities Exam: Pedal Edema. absent: Calf Tenderness - Neurological Exam Neurological Exam: Alert, Awake - Skin Skin Exam: Dry, Warm Assessment and Plan - Assessment and Plan (Free Text) Assessment: 48F WITH b/l PE, Femoral DVTs, and sepsis of unknown origin - possibly gallbladder Plan: Continue heparin drip, no need for IVC filter if able to treat medically Consider CTA abdomen once stable Recommend Cholecystostomy tube Cont Abx Will D/W Dr. Mike Chowdhury PGY4
--- NOTE | 2018-07-30 09:41 | CP.PCM.PN ---
Subjective - Date & Time of Evaluation Date of Evaluation: 07/30/18 Time of Evaluation: 09:15 - Subjective Subjective: Patient was awake and alert. She was writing to her family member with pen and a board The patient remains intubated with minimal sedation at this time. Marybeth was on levophed however when I came by to see patient this morning she was off of all pressor medications She is on low heparin ggt at this time. Urine output recorded yesterday was 550 mL , creatine is now 5.3 Objective - Vital Signs/Intake and Output Vital Signs (last 24 hours): Temp Pulse Resp BP Pulse Ox 97.5 F L 52 L 20 127/76 99 07/30/18 04:00 07/30/18 07:41 07/30/18 07:41 07/30/18 07:41 07/30/18 07:41 Intake and Output: 07/30/18 07/30/18 06:59 18:59 Intake Total 954.1 38.7 Output Total 210 0 Balance 744.1 38.7 - Medications Medications: Current Medications Albuterol/Ipratropium (Duoneb 3 Mg/0.5 Mg (3 Ml) Ud) 3 ml INH RQ6 KACY Last Admin: 07/30/18 08:10 Dose: 3 ml Heparin Sodium/Sodium Chloride (Heparin 25117 Units/250ml 1/2 Normal Saline) 25,000 units in 250 mls @ 12.247 mls/hr IV .[id number] PRN; Protocol PRN Reason: ADJUST RATE PER PROTOCOL Last Titration: 07/29/18 23:45 Dose: 8 units/kg/hr, 5.806 mls/hr Norepinephrine Bitartrate 4 mg (/ Sodium Chloride) 250 mls @ 15 mls/hr IV .[id number] PRN; Protocol PRN Reason: TITRATE PER MD ORDER Last Titration: 07/30/18 05:40 Dose: 4 mcg/min, 15 mls/hr Cisatracurium Besylate 100 mg/ (Dextrose) 250 mls @ 32.66 mls/hr IV .Q7H40M PRN; Protocol PRN Reason: Agitation Last Titration: 07/28/18 19:02 Dose: 0 mcg/kg/min, 0 mls/hr Phenylephrine HCl 30 mg/ (Sodium Chloride) 250 mls @ 10 mls/hr IV .Q24H PRN; Protocol PRN Reason: TITRATE PER MD ORDER Last Titration: 07/28/18 15:37 Dose: 0 mcg/min, 0 mls/hr Vasopressin 40 units/ Sodium (Chloride) 40 mls @ 1.2 mls/hr IV .Q24H KACY; Protocol Last Admin: 07/29/18 12:08 Dose: Not Given Dexmedetomidine HCl 200 mcg/ (Sodium Chloride) 50 mls @ 3.63 mls/hr IV TITR PRN; Protocol PRN Reason: Sedation Last Admin: 07/30/18 06:00 Dose: 0.7 mcg/kg/hr, 12.7 mls/hr Metronidazole (Flagyl) 500 mg in 100 mls @ 100 mls/hr IVPB Q8H KACY; Protocol Last Admin: 07/30/18 01:32 Dose: 100 mls/hr Vancomycin HCl (Vancocin 750mg/Ns 150 Ml) 150 mls @ 100 mls/hr IVPB Q24H KACY; Protocol Last Admin: 07/28/18 11:48 Dose: 100 mls/hr Piperacillin Sod/Tazobactam (Sod 2.25 gm/ Sodium Chloride) 100 mls @ 200 mls/hr IVPB Q6H KACY; Protocol Last Admin: 07/30/18 04:13 Dose: 200 mls/hr Dopamine HCl/Dextrose (Dopamine 400mg/250ml D5w) 400 mg in 250 mls @ 6.875 mls/hr IV .Q24H PRN; Protocol PRN Reason: TITRATE PER MD ORDER Last Titration: 07/30/18 08:50 Dose: 0 mcg/kg/min, 0 mls/hr Lorazepam (Ativan) 2 mg IVP Q4 PRN PRN Reason: Anxiety Last Admin: 07/29/18 21:57 Dose: 2 mg Methylprednisolone (Solu-Medrol) 40 mg IVP TID KACY Last Admin: 07/29/18 17:56 Dose: 40 mg Pantoprazole Sodium (Protonix Inj) 40 mg IVP Q12 KACY Last Admin: 07/29/18 21:58 Dose: 40 mg - Labs Labs: 07/30/18 06:11 07/30/18 06:11 PT 17.7 SECONDS (9.7-12.2) H D 07/30/18 06:11 INR 1.6 D 07/30/18 06:11 APTT 45 SECONDS (21-34) H 07/30/18 06:11 - Constitutional Appears: Unkempt, Chronically Ill - Head Exam Additional comments: Echymosis over eye lid - Eye Exam Eye Exam: Periorbital swelling - ENT Exam Additional comments: Remains intubated - Neck Exam Additional comments: Has IJ, there is no active bleeding however echymosis - Cardiovascular Exam Cardiovascular Exam: REGULAR RHYTHM - GI/Abdominal Exam GI & Abdominal Exam: Soft, Tenderness. absent: Firm, Guarding, Rigid - Neurological Exam Neurological Exam: Alert, Altered, Awake Neuro motor strength exam: Left Upper Extremity: 4, Right Upper Extremity: 4 - Psychiatric Exam Psychiatric exam: Depressed, Flat Affect - Skin Skin Exam: Pallor, Warm Assessment and Plan - Assessment and Plan (Free Text) Assessment: A/P: This is a 48 year old female patient who unfortunately has bilateral large PE and currently is intubated at this time. Per family members, the patient has a past medical history of anxiety who presented with worsening shortness of breath and syncope. Acute Hypercapnic Respiratory Failure from Bilateral Pulmonary Embolism 07/30: As of this morning off of pressor medications. On lower rate of heparin ggt now. The echo came back, EF is reported as 70% and the right ventricle moderate dilaitation. 07/29: Yesterday there was consideration for HD since she was so acidotic however pH later improved. Creatine is still elevated. Remains on bicarb ggt. She was again on the heparin ggt this morning but then held due to high PTTs, the PTTs have always been high so I placed ordereds to restart at much smaler heparin drip at just 6 units instead and see how the PTTs are. 07/28: IVF changed to 1/2 NS @ 200 cc /hr with 50 meq of NaHCO3, she is still acidotic on ABG despite being on 3 pressor medications as well as on mechanical ventilation. Likely combination of the bilateral PE and also the sepsis / DIC. She was on heparin ggt overnight then it was discontinued this morning. Currently not a candidate for direct thrombolytic administration due to bleeding concern. 07/27: Spoke with family member Darshan at bedside and he understands prognosis is poor. At this time the patient remains intubated with minimal reflexes illicited on exam. Intubated, s/p respiratory arrest x 2 -ABG: pH <6.80, PO2 29, PCO2 103, Lactate 17.6 CT head showed left forhead swelling CTA chest showed diffuse bilateral pulmonary emboli involving bilateral central and segmental pulmonary arteries, cardiac silhouette enlarged, there is evidence of pulmonary venous congestion compatible with CHF, left basilar atelectasis vs pulmonary infarct (official report pending) Renal failure - acute kidney injury / ATN 07/30: Urine outs were recorded as 550, creatine increased again. There was consideration for HD previously when the patient was more acidotic. Sepsis / DIC / Abdominal Pain 07/30: Yesterday completed abdominal ultrasound with concerning findings for possible cholecystitis. Remains on IV abx Zosyn and Flagyl. The vancomycin is on hold due to the renal function. 07/29: IV Flagyl was added yesterday as she is having diarrhea. This being said the CDIFF was negative. She does have fever, Tmax was 100.9 There are elevated LFTs either from possible cholecytitis or from shock liver from low perfusion earlier. 10: Cultures still pending at this time, she remains on IV pressors and also the urine out put was only 1065 mL 10: Elevated WBC, bandemia, and hypothermic Antibiotics started on Zosyn and Vancomycin Also blood culture, urine culture, and IVF boluses. -CT abd/pelvis showed periportal edema and pericholecystic/peripancreatic fluid, probably related to fluid overload, exclude hepatocellular disease. Severe enteritis. Infectious and inflammatory etiologies are considered. Large amount of fecal material is seen throughout colon (official report pending) Atrial Fibrillation with RVR 07/29: As of this morning was NSR on the telemetry and HR mostly in the 70s to 9 0s range. On heparin ggt, however often has high PTTs 07/27: Likley secondary to the bilateral PEs, they asked IR to evaluate however she was not a candidate for direct cathter thrombolysis Initial EKG showed afib with rate of 146 bpm Patient on heparin drip
[2018-07-30] MEDS ORDERED: Lidocaine 4% (Laryng-O-Jet) Kit MM SCH (10:00)
--- NOTE | 2018-07-30 10:11 | RAD ---
Date of service: 07/30/2018 HISTORY: s/p intubation COMPARISON: 07/29/2018 FINDINGS: LUNGS: Again lung volumes are shallow. The shallow lung volumes and the large prominent breast soft tissues impede optimal evaluation at both lung bases. Nevertheless partial obscuration of the left hemidiaphragm noted. Small left pleural effusion with the left basal atelectasis and/or infiltrate compatible with this. Appearance is similar Endotracheal tube tip approximately 2 cm above the enrrique-at clavicle level-satisfactory position PLEURA: Small left pleural effusion-similar. No pneumothorax. CARDIOVASCULAR: Cardiomegaly. Mild central pulmonary venous congestion [id number] Left internal jugular vein catheter tip in right atrium-position unchanged. Correlate clinically OSSEOUS STRUCTURES: No significant abnormalities. VISUALIZED UPPER ABDOMEN: Normal. OTHER FINDINGS: None. IMPRESSION: Persistent left basal pathology as above similar-appearing Other findings as above.. No interval pathology noted.
[2018-07-30] MEDS: Albumin Human 25% (12.5 gm/50 ml) IV SCH ×8 (11:02→18:57)
[2018-07-30] MEDS: MethylPREDNISolone 40 mg Vial IVP SCH ×3 (11:03→18:54)
--- NOTE | 2018-07-30 11:34 | PCM.IRP ---
Objective - Vital Signs/Intake and Output Vital Signs (last 24 hours): Vital Signs - 24 hr 07/29/18 07/29/18 07/29/18 11:27 11:55 12:00 Temperature 97.3 F L Pulse Rate 73 62 Respiratory 21 18 Rate Blood Pressure 115/73 117/78 O2 Sat by Pulse 98 96 Oximetry 07/29/18 07/29/18 07/29/18 12:25 12:55 13:25 Temperature Pulse Rate 61 77 78 Respiratory 19 20 18 Rate Blood Pressure 117/73 108/75 119/77 O2 Sat by Pulse 97 99 99 Oximetry 07/29/18 07/29/18 07/29/18 13:56 14:25 14:55 Temperature Pulse Rate 71 73 68 Respiratory 18 22 20 Rate Blood Pressure 116/72 124/81 117/73 O2 Sat by Pulse 100 100 100 Oximetry 07/29/18 07/29/18 07/29/18 15:25 15:52 15:55 Temperature Pulse Rate 73 62 Respiratory 20 20 Rate Blood Pressure 125/73 125/73 111/72 O2 Sat by Pulse 100 Oximetry 07/29/18 07/29/18 07/29/18 16:00 16:09 17:10 Temperature 97.5 F L Pulse Rate 62 57 L Respiratory 20 20 Rate Blood Pressure 117/72 120/78 O2 Sat by Pulse 98 99 Oximetry 07/29/18 07/29/18 07/29/18 19:12 20:00 20:10 Temperature 97.6 F Pulse Rate 86 62 Respiratory 23 20 Rate Blood Pressure 116/61 114/69 O2 Sat by Pulse 100 100 98 Oximetry 07/29/18 07/29/18 07/29/18 21:00 21:10 22:00 Temperature Pulse Rate 66 68 68 Respiratory 24 21 22 Rate Blood Pressure 128/82 O2 Sat by Pulse 100 100 100 Oximetry 07/29/18 07/29/18 07/29/18 22:10 23:00 23:10 Temperature Pulse Rate 71 66 63 Respiratory 20 20 20 Rate Blood Pressure 121/78 111/77 O2 Sat by Pulse 99 99 99 Oximetry 07/29/18 07/30/18 07/30/18 23:24 00:00 00:11 Temperature 97.6 F Pulse Rate 63 63 76 Respiratory 20 20 22 Rate Blood Pressure 116/70 O2 Sat by Pulse 99 99 99 Oximetry 1007/30/18 07/30/18 01:00 01:10 02:00 Temperature Pulse Rate 67 68 68 Respiratory 20 20 20 Rate Blood Pressure 125/79 O2 Sat by Pulse 99 99 99 Oximetry 07/30/18 07/30/18 07/30/18 02:10 03:00 03:10 Temperature Pulse Rate 67 66 65 Respiratory 20 20 20 Rate Blood Pressure 116/78 120/78 O2 Sat by Pulse 98 99 98 Oximetry 07/30/18 07/30/18 07/30/18 04:00 04:10 05:00 Temperature 97.5 F L Pulse Rate 71 65 68 Respiratory 21 20 21 Rate Blood Pressure 110/78 O2 Sat by Pulse 99 98 100 Oximetry 07/30/18 07/30/18 07/30/18 05:11 05:37 05:43 Temperature Pulse Rate 62 65 72 Respiratory 20 21 20 Rate Blood Pressure 94/57 L 84/53 L 82/58 L O2 Sat by Pulse 100 99 99 Oximetry 07/30/18 07/30/18 07/30/18 05:56 06:00 06:10 Temperature Pulse Rate 47 L 61 56 L Respiratory 20 15 20 Rate Blood Pressure 128/79 134/79 O2 Sat by Pulse 98 99 97 Oximetry 07/30/18 07/30/18 07:00 07:41 Temperature Pulse Rate 50 L 52 L Respiratory 20 20 Rate Blood Pressure 127/76 O2 Sat by Pulse 99 99 Oximetry Intake and Output (last 12 hours): Intake & Output 07/29/18 07/30/18 07/30/18 18:59 06:59 18:59 Intake Total 1728.3 954.1 38.7 Output Total 346 210 0 Balance 1382.3 744.1 38.7 Weight 202 lb 1.6 oz Intake: IV 485 322 7 Intake, IV Amount 1243.3 632.1 31.7 Left Distal Port IJ - Y- 28.8 134.3 10.9 Port Left Distal Port Internal 44.0 62.6 5.8 Jugular Left Medial Port IJ Y- 518 Port Left Medial Port Internal 300 300 Jugular Left Proximal Port IJ Y- 352.5 135.2 15 Port Oral 0 0 Output: Urine 346 210 Urethral (Becerril) 346 210 Emesis 0 0 Other: # Bowel Movements 4 1 - Medications Medications: Current Medications Albumin Human (Albumin Human 25% (12.5 Gm/50 Ml)) 12.5 gm IV Q1H KACY Stop: 07/30/18 17:31 Albuterol/Ipratropium (Duoneb 3 Mg/0.5 Mg (3 Ml) Ud) 3 ml INH RQ6 KACY Last Admin: 07/30/18 08:10 Dose: 3 ml Heparin Sodium/Sodium Chloride (Heparin 03108 Units/250ml 1/2 Normal Saline) 25,000 units in 250 mls @ 12.247 mls/hr IV .[id number] PRN; Protocol PRN Reason: ADJUST RATE PER PROTOCOL Last Titration: 07/29/18 23:45 Dose: 8 units/kg/hr, 5.806 mls/hr Norepinephrine Bitartrate 4 mg (/ Sodium Chloride) 250 mls @ 15 mls/hr IV .[id number] PRN; Protocol PRN Reason: TITRATE PER MD ORDER Last Titration: 07/30/18 05:40 Dose: 4 mcg/min, 15 mls/hr Cisatracurium Besylate 100 mg/ (Dextrose) 250 mls @ 32.66 mls/hr IV .Q7H40M PRN; Protocol PRN Reason: Agitation Last Titration: 07/28/18 19:02 Dose: 0 mcg/kg/min, 0 mls/hr Phenylephrine HCl 30 mg/ (Sodium Chloride) 250 mls @ 10 mls/hr IV .Q24H PRN; Protocol PRN Reason: TITRATE PER MD ORDER Last Titration: 07/28/18 15:37 Dose: 0 mcg/min, 0 mls/hr Vasopressin 40 units/ Sodium (Chloride) 40 mls @ 1.2 mls/hr IV .Q24H KACY; Protocol Last Admin: 07/29/18 12:08 Dose: Not Given Dexmedetomidine HCl 200 mcg/ (Sodium Chloride) 50 mls @ 3.63 mls/hr IV TITR PRN; Protocol PRN Reason: Sedation Last Admin: 07/30/18 06:00 Dose: 0.7 mcg/kg/hr, 12.7 mls/hr Piperacillin Sod/Tazobactam (Sod 2.25 gm/ Sodium Chloride) 100 mls @ 200 mls/hr IVPB Q6H KACY; Protocol Last Admin: 07/30/18 04:13 Dose: 200 mls/hr Dopamine HCl/Dextrose (Dopamine 400mg/250ml D5w) 400 mg in 250 mls @ 6.875 mls/hr IV .Q24H PRN; Protocol PRN Reason: TITRATE PER MD ORDER Last Titration: 07/30/18 08:50 Dose: 0 mcg/kg/min, 0 mls/hr Lorazepam (Ativan) 2 mg IVP Q4 PRN PRN Reason: Anxiety Last Admin: 07/29/18 21:57 Dose: 2 mg Methylprednisolone (Solu-Medrol) 40 mg IVP TID KACY Last Admin: 07/29/18 17:56 Dose: 40 mg Pantoprazole Sodium (Protonix Inj) 40 mg IVP Q12 KACY Last Admin: 07/29/18 21:58 Dose: 40 mg - Labs Labs (last 24 hours): Laboratory Results - last 24 hr 07/29/18 07/29/18 07/29/18 16:53 18:23 18:23 WBC RBC Hgb Hct MCV MCH MCHC RDW Plt Count MPV Neut % (Auto) Lymph % (Auto) Barry % (Auto) Eos % (Auto) Baso % (Auto) Neut # (Auto) Lymph # (Auto) Barry # (Auto) Eos # (Auto) Baso # (Auto) Neutrophils % (Manual) Band Neutrophils % Lymphocytes % (Manual) Monocytes % (Manual) Toxic Granulation Platelet Estimate Hypochromasia (manual) Poikilocytosis (manual Anisocytosis (manual) Target Cells Ovalocytes PT INR APTT 55 H D Puncture Site pCO2 pO2 HCO3 ABG pH ABG Total CO2 ABG O2 Saturation ABG Base Excess ABG Hemoglobin ABG Carboxyhemoglobin POC ABG HHb (Measured) ABG Methemoglobin Bryce Test A-a O2 Difference Respiratory Index Hgb O2 Saturation Vent Mode Mechanical Rate FiO2 Tidal Volume PEEP Sodium Potassium Chloride Carbon Dioxide Anion Gap BUN Creatinine Est GFR ( Amer) Est GFR (Non-Af Amer) Random Glucose Lactic Acid 2.9 H Calcium Phosphorus Magnesium Total Bilirubin AST ALT Alkaline Phosphatase Total Protein Albumin Globulin Albumin/Globulin Ratio Random Vancomycin 19.2 07/29/18 07/30/18 07/30/18 23:12 04:41 06:11 WBC 19.7 H RBC 2.79 L Hgb 7.4 L Hct 22.0 L MCV 78.9 L MCH 26.5 L MCHC 33.6 RDW 14.4 Plt Count 74 L D MPV 10.1 Neut % (Auto) 94.9 H Lymph % (Auto) 2.4 L Barry % (Auto) 1.9 Eos % (Auto) 0.7 Baso % (Auto) 0.1 Neut # (Auto) 18.7 H Lymph # (Auto) 0.5 L Barry # (Auto) 0.4 Eos # (Auto) 0.1 Baso # (Auto) 0.0 Neutrophils % (Manual) 89 H Band Neutrophils % 8 H Lymphocytes % (Manual) 2 L Monocytes % (Manual) 1 Toxic Granulation Present Platelet Estimate Decreased L Hypochromasia (manual) Moderate Poikilocytosis (manual Slight Anisocytosis (manual) Slight Target Cells Moderate Ovalocytes Slight PT INR APTT 43 H D Puncture Site R rad pCO2 29 L pO2 184 H HCO3 24.7 ABG pH 7.50 H ABG Total CO2 23.5 ABG O2 Saturation 99.9 H ABG Base Excess -0.4 ABG Hemoglobin 7.2 L ABG Carboxyhemoglobin 1.2 POC ABG HHb (Measured) 0.1 ABG Methemoglobin 0.7 Bryce Test Pos A-a O2 Difference 136.0 Respiratory Index 0.7 Hgb O2 Saturation 98.0 Vent Mode Prvc Mechanical Rate 20 FiO2 50.0 Tidal Volume 500 PEEP 5 Sodium Potassium Chloride Carbon Dioxide Anion Gap BUN Creatinine Est GFR ( Amer) Est GFR (Non-Af Amer) Random Glucose Lactic Acid Calcium Phosphorus Magnesium Total Bilirubin AST ALT Alkaline Phosphatase Total Protein Albumin Globulin Albumin/Globulin Ratio Random Vancomycin 07/30/18 07/30/18 07/30/18 06:11 06:11 06:11 WBC RBC Hgb Hct MCV MCH MCHC RDW Plt Count MPV Neut % (Auto) Lymph % (Auto) Barry % (Auto) Eos % (Auto) Baso % (Auto) Neut # (Auto) Lymph # (Auto) Barry # (Auto) Eos # (Auto) Baso # (Auto) Neutrophils % (Manual) Band Neutrophils % Lymphocytes % (Manual) Monocytes % (Manual) Toxic Granulation Platelet Estimate Hypochromasia (manual) Poikilocytosis (manual Anisocytosis (manual) Target Cells Ovalocytes PT 17.7 H D INR 1.6 D APTT 45 H Puncture Site pCO2 pO2 HCO3 ABG pH ABG Total CO2 ABG O2 Saturation ABG Base Excess ABG Hemoglobin ABG Carboxyhemoglobin POC ABG HHb (Measured) ABG Methemoglobin Bryce Test A-a O2 Difference Respiratory Index Hgb O2 Saturation Vent Mode Mechanical Rate FiO2 Tidal Volume PEEP Sodium 156 H Potassium 3.6 Chloride 117 H Carbon Dioxide 26 Anion Gap 17 BUN 53 H Creatinine 5.3 H Est GFR ( Amer) 11 Est GFR (Non-Af Amer) 9 Random Glucose 144 H Lactic Acid Calcium 6.3 L Phosphorus 4.6 H Magnesium 2.1 Total Bilirubin 0.7 AST 528 H D ALT 469 H Alkaline Phosphatase 54 Total Protein 4.8 L Albumin 2.5 L Globulin 2.3 Albumin/Globulin Ratio 1.1 Random Vancomycin 17.9
[2018-07-30] MEDS ORDERED: Midazolam 5 MG/5 ML VIAL IVP ONE (15:39)
[2018-07-30] MEDS ORDERED: Midazolam 2 MG/2 ML VIAL IVP ONE (16:15)
[2018-07-30] MEDS ORDERED: Albumin Human 25% (12.5 gm/50 ml) IV SCH (19:00)
--- NOTE | 2018-07-30 19:06 | CP.PCM.PN ---
Subjective - Date & Time of Evaluation Date of Evaluation: 07/30/18 Time of Evaluation: 12:00 - Subjective Subjective: Vented, awake. Objective - Vital Signs/Intake and Output Vital Signs (last 24 hours): Temp Pulse Resp BP Pulse Ox 97.2 F L 85 19 116/65 100 07/30/18 16:00 07/30/18 18:10 07/30/18 18:10 07/30/18 18:10 07/30/18 18:10 Intake and Output: 07/30/18 07/31/18 18:59 06:59 Intake Total 725.6 Output Total 237 Balance 488.6 - Medications Medications: Current Medications Albuterol/Ipratropium (Duoneb 3 Mg/0.5 Mg (3 Ml) Ud) 3 ml INH RQ6 KACY Last Admin: 07/30/18 13:41 Dose: 3 ml Heparin Sodium/Sodium Chloride (Heparin 00473 Units/250ml 1/2 Normal Saline) 25,000 units in 250 mls @ 12.247 mls/hr IV .[id number] PRN; Protocol PRN Reason: ADJUST RATE PER PROTOCOL Last Titration: 07/30/18 14:52 Dose: 10 units/kg/hr, 7.258 mls/hr Norepinephrine Bitartrate 4 mg (/ Sodium Chloride) 250 mls @ 15 mls/hr IV .[id number] PRN; Protocol PRN Reason: TITRATE PER MD ORDER Last Titration: 07/30/18 05:40 Dose: 4 mcg/min, 15 mls/hr Phenylephrine HCl 30 mg/ (Sodium Chloride) 250 mls @ 10 mls/hr IV .Q24H PRN; Protocol PRN Reason: TITRATE PER MD ORDER Last Titration: 07/28/18 15:37 Dose: 0 mcg/min, 0 mls/hr Vasopressin 40 units/ Sodium (Chloride) 40 mls @ 1.2 mls/hr IV .Q24H KACY; Protocol Last Admin: 07/30/18 11:04 Dose: Not Given Dexmedetomidine HCl 200 mcg/ (Sodium Chloride) 50 mls @ 3.63 mls/hr IV TITR PRN; Protocol PRN Reason: Sedation Last Admin: 07/30/18 06:00 Dose: 0.7 mcg/kg/hr, 12.7 mls/hr Piperacillin Sod/Tazobactam (Sod 2.25 gm/ Sodium Chloride) 100 mls @ 200 mls/hr IVPB Q6H KACY; Protocol Last Admin: 07/30/18 16:51 Dose: 200 mls/hr Dopamine HCl/Dextrose (Dopamine 400mg/250ml D5w) 400 mg in 250 mls @ 6.875 mls/hr IV .Q24H PRN; Protocol PRN Reason: TITRATE PER MD ORDER Last Titration: 07/30/18 08:50 Dose: 0 mcg/kg/min, 0 mls/hr Lorazepam (Ativan) 2 mg IVP Q4 PRN PRN Reason: Anxiety Last Admin: 07/30/18 17:01 Dose: 2 mg Methylprednisolone (Solu-Medrol) 40 mg IVP TID KACY Last Admin: 07/30/18 18:54 Dose: 40 mg Pantoprazole Sodium (Protonix Inj) 40 mg IVP Q12 KACY Last Admin: 07/30/18 11:03 Dose: 40 mg - Labs Labs: 07/30/18 06:11 07/30/18 06:11 PT 17.7 SECONDS (9.7-12.2) H D 07/30/18 06:11 INR 1.6 D 07/30/18 06:11 APTT 39 SECONDS (21-34) H D 07/30/18 14:29 - Head Exam Head Exam: ATRAUMATIC - Eye Exam Eye Exam: Normal appearance - ENT Exam ENT Exam: Mucous Membranes Dry - Respiratory Exam Respiratory Exam: NORMAL BREATHING PATTERN - Cardiovascular Exam Cardiovascular Exam: +S1, +S2 - GI/Abdominal Exam GI & Abdominal Exam: Normal Bowel Sounds Assessment and Plan (1) DIC (disseminated intravascular coagulation) Assessment & Plan: likely septic shock on antibiotics Status: Acute (2) Pulmonary embolism Assessment & Plan: on heparin drip likely provoked from immobility and OCPs Status: Acute (3) DVT (deep venous thrombosis) Assessment and Plan: likely provoked from immobility and OCPs Status: Acute (4) Thrombocytopenia Assessment and Plan: secondary to DIC Status: Acute (5) Leukocytosis (leucocytosis) Assessment and Plan: on antibiotics Status: Acute (3) DVT (deep venous thrombosis) Assessment & Plan: likely provoked from immobility and OCPs Status: Acute (4) Thrombocytopenia Assessment & Plan: secondary to DIC Status: Acute (5) Leukocytosis (leucocytosis) Assessment & Plan: on antibiotics Status: Acute
[2018-07-30] MEDS: Heparin25000 units/250ml 1/2NS 25,000 UNITS/250 ML BAG IV PRN (23:17)
--- NOTE | 2018-07-30 23:18 | CP.PCM.PN ---
Subjective - Date & Time of Evaluation Date of Evaluation: 07/30/18 Time of Evaluation: 13:00 - Subjective Subjective: Patient more alert, still intubated; complaining of abd pain; Objective - Vital Signs/Intake and Output Vital Signs (last 24 hours): Temp Pulse Resp BP Pulse Ox 99 F 70 21 111/65 100 07/30/18 20:00 07/30/18 21:00 07/30/18 21:00 07/30/18 20:10 07/30/18 21:00 Intake and Output: 07/30/18 07/31/18 18:59 06:59 Intake Total 738.6 157.6 Output Total 241 Balance 497.6 157.6 - Medications Medications: Current Medications Albuterol/Ipratropium (Duoneb 3 Mg/0.5 Mg (3 Ml) Ud) 3 ml INH RQ6 KACY Last Admin: 07/30/18 19:49 Dose: 3 ml Heparin Sodium/Sodium Chloride (Heparin 18514 Units/250ml 1/2 Normal Saline) 25,000 units in 250 mls @ 12.247 mls/hr IV .[id number] PRN; Protocol PRN Reason: ADJUST RATE PER PROTOCOL Last Admin: 07/30/18 23:17 Dose: 12 units/kg/hr, 8.709 mls/hr Norepinephrine Bitartrate 4 mg (/ Sodium Chloride) 250 mls @ 15 mls/hr IV .[id number] PRN; Protocol PRN Reason: TITRATE PER MD ORDER Last Titration: 07/30/18 08:30 Dose: 0 mcg/min, 0 mls/hr Phenylephrine HCl 30 mg/ (Sodium Chloride) 250 mls @ 10 mls/hr IV .Q24H PRN; Protocol PRN Reason: TITRATE PER MD ORDER Last Titration: 07/28/18 15:37 Dose: 0 mcg/min, 0 mls/hr Vasopressin 40 units/ Sodium (Chloride) 40 mls @ 1.2 mls/hr IV .Q24H KACY; Protocol Last Admin: 07/30/18 11:04 Dose: Not Given Dexmedetomidine HCl 200 mcg/ (Sodium Chloride) 50 mls @ 3.63 mls/hr IV TITR PRN; Protocol PRN Reason: Sedation Last Titration: 07/30/18 19:20 Dose: 0.4 mcg/kg/hr, 7.26 mls/hr Piperacillin Sod/Tazobactam (Sod 2.25 gm/ Sodium Chloride) 100 mls @ 200 mls/hr IVPB Q6H KACY; Protocol Last Admin: 07/30/18 21:52 Dose: 200 mls/hr Dopamine HCl/Dextrose (Dopamine 400mg/250ml D5w) 400 mg in 250 mls @ 6.875 mls/hr IV .Q24H PRN; Protocol PRN Reason: TITRATE PER MD ORDER Last Titration: 07/30/18 08:50 Dose: 0 mcg/kg/min, 0 mls/hr Lorazepam (Ativan) 2 mg IVP Q4 PRN PRN Reason: Anxiety Last Admin: 07/30/18 17:01 Dose: 2 mg Methylprednisolone (Solu-Medrol) 40 mg IVP TID KACY Last Admin: 07/30/18 18:54 Dose: 40 mg Pantoprazole Sodium (Protonix Inj) 40 mg IVP Q12 KACY Last Admin: 07/30/18 11:03 Dose: 40 mg - Labs Labs: 07/30/18 06:11 07/30/18 06:11 PT 17.7 SECONDS (9.7-12.2) H D 07/30/18 06:11 INR 1.6 D 07/30/18 06:11 APTT 41 SECONDS (21-34) H 07/30/18 22:21 Assessment and Plan (1) Acute renal failure Assessment & Plan: ATN in the setting of septic shock; urine output now improved but still inadequate renal clearance with serum creatinine continuing to rise; relatively stable electrolyte status and improved FIO2 requirement (50%) with CXR showing relatively clear lungs; hemodynamically much improved with decreased vasopressor requirement; no urgent indication to initiate HD currently; will monitor closely and make decision tomorrow; -Maintain MAP > 65;; -Avoid nephrotoxic agents; -Starting D5W at 100 cc/hr to correct worsening hypernatremia; Status: Acute (2) Acute respiratory failure with hypoxemia Status: Acute (3) Hypocalcemia Status: Acute (4) Metabolic acidosis Status: Acute
[2018-07-31] MEDS: Albuterol-Ipratrop 3 mg / 0.5 (3 ml) UD INH SCH ×4 (01:00→19:46)
[2018-07-31] MEDS ORDERED: Atropine-Diphenoxylate 0.025-2.5 mg Tab GT STA (02:38)
[2018-07-31] MEDS: Piperacillin/Tazobact 2.25 GM in Sodium Chloride 100 ML IVPB SCH ×2 (04:14→09:59)
[2018-07-31 06:00] LABS: ABG ALLEN TEST POS; ARTERIAL BLOOD GAS HCO3 23.9 mmol/L (21-28); ARTERIAL BLOOD GAS HEMOGLOBIN 7.1 g/dL (11.7-17.4); ARTERIAL BLOOD GAS O2 SAT 99.3 % (95-98); ARTERIAL BLOOD GAS PCO2 25 mm/Hg (35-45); ARTERIAL BLOOD GAS PH 7.53 (7.35-7.45); ARTERIAL BLOOD GAS PO2 220 mm/Hg (80-100); ARTERIAL BLOOD GAS TCO2 21.7 mmol/L (22-28)
[2018-07-31 06:33] LABS: BASO % 0.1 % (0.0-2.0); EOS % 0.2 % (0.0-4.0); LYMPH # 0.4 K/uL (1.0-4.3); LYMPH % 1.9 % (20.0-40.0); MEAN CELL VOLUME 79.1 fL (81.0-99.0); MEAN CORPUSCULAR HEMOGLOBIN 25.8 pg (27.0-31.0); MEAN CORPUSCULAR HGB CONC 32.7 g/dL (33.0-37.0); MEAN PLATELET VOLUME 11.8 fL (7.2-11.7); MONO # 0.6 K/uL (0.0-0.8); MONO % 2.6 % (0.0-10.0); NEUT # 20.6 K/uL (1.8-7.0); NEUT % 95.2 % (50.0-75.0); PLATELET COUNT 87 K/uL (130-400); RBC 2.49 Mil/uL (3.80-5.20); RED CELL DISTRIBUTION WIDTH 14.4 % (11.5-14.5); WHITE BLOOD COUNT 21.6 K/uL (4.8-10.8)
[2018-07-31 06:56] LABS: HEMOGLOBIN 6.4 g/dL (11.0-16.0)
[2018-07-31 07:08] LABS: ALB/GLOB RATIO 1.8 (1.0-2.1); ALBUMIN 3.4 g/dL (3.5-5.0)
--- NOTE | 2018-07-31 08:11 | RAD ---
Date of service: 07/31/2018 HISTORY: s/p intubation COMPARISON: 07/30/2018. FINDINGS: Endotracheal tube terminates 2 cm proximal to the enrrique. The left IJV line terminates in the right atrium. Nasogastric tube terminates in the stomach. LUNGS: The right lung is clear. There is persistent haziness in the left lower lobe with interval mild improved aeration. PLEURA: Improving left pleural effusion, no pneumothorax apparent. CARDIOVASCULAR: Persistent mild cardiomegaly. OSSEOUS STRUCTURES: No significant abnormalities. VISUALIZED UPPER ABDOMEN: Normal. OTHER FINDINGS: None. IMPRESSION: Improving left lower lobe airspace disease and pleural effusion. Stable position of support line and tubes.
[2018-07-31] MEDS ORDERED: Potassium Chloride 20 mEq/15 ml LIQ UD PO ONE (08:15)
--- NOTE | 2018-07-31 08:28 | CP.PCM.PN ---
Subjective - Date & Time of Evaluation Date of Evaluation: 07/31/18 Time of Evaluation: 09:00 - Subjective Subjective: Cardiology Progress Note Airam Rasmussen, PGY1 note for Dr. Ba Remains lethargic and arousable. Patient was having several episodes of diarrhea overnight. Currently on heparin drip. Echo pending for today. Objective - Vital Signs/Intake and Output Vital Signs (last 24 hours): Temp Pulse Resp BP Pulse Ox 98.1 F 65 13 106/65 100 07/31/18 04:00 07/31/18 08:00 07/31/18 08:00 07/31/18 07:11 07/31/18 08:00 Intake and Output: 07/31/18 07/31/18 06:59 18:59 Intake Total 1174.4 Output Total 200 Balance 974.4 - Medications Medications: Current Medications Albuterol/Ipratropium (Duoneb 3 Mg/0.5 Mg (3 Ml) Ud) 3 ml INH RQ6 KACY Last Admin: 07/31/18 08:09 Dose: 3 ml Heparin Sodium/Sodium Chloride (Heparin 32203 Units/250ml 1/2 Normal Saline) 25,000 units in 250 mls @ 12.247 mls/hr IV .[id number] PRN; Protocol PRN Reason: ADJUST RATE PER PROTOCOL Last Admin: 07/30/18 23:17 Dose: 12 units/kg/hr, 8.709 mls/hr Norepinephrine Bitartrate 4 mg (/ Sodium Chloride) 250 mls @ 15 mls/hr IV .[id number] PRN; Protocol PRN Reason: TITRATE PER MD ORDER Last Titration: 07/30/18 08:30 Dose: 0 mcg/min, 0 mls/hr Phenylephrine HCl 30 mg/ (Sodium Chloride) 250 mls @ 10 mls/hr IV .Q24H PRN; Protocol PRN Reason: TITRATE PER MD ORDER Last Titration: 07/28/18 15:37 Dose: 0 mcg/min, 0 mls/hr Vasopressin 40 units/ Sodium (Chloride) 40 mls @ 1.2 mls/hr IV .Q24H KACY; Protocol Last Admin: 07/30/18 11:04 Dose: Not Given Dexmedetomidine HCl 200 mcg/ (Sodium Chloride) 50 mls @ 3.63 mls/hr IV TITR PRN; Protocol PRN Reason: Sedation Last Titration: 07/31/18 00:27 Dose: Infused Piperacillin Sod/Tazobactam (Sod 2.25 gm/ Sodium Chloride) 100 mls @ 200 mls/hr IVPB Q6H KACY; Protocol Last Admin: 07/31/18 04:14 Dose: 200 mls/hr Dopamine HCl/Dextrose (Dopamine 400mg/250ml D5w) 400 mg in 250 mls @ 6.875 mls/hr IV .Q24H PRN; Protocol PRN Reason: TITRATE PER MD ORDER Last Titration: 07/30/18 08:50 Dose: 0 mcg/kg/min, 0 mls/hr Dextrose (Dextrose 5% In Water 1000 Ml) 1,000 mls @ 100 mls/hr IV .Q10H KACY Stop: 07/31/18 09:29 Last Admin: 07/31/18 00:16 Dose: 100 mls/hr Lorazepam (Ativan) 2 mg IVP Q4 PRN PRN Reason: Anxiety Last Admin: 07/31/18 06:24 Dose: 2 mg Methylprednisolone (Solu-Medrol) 40 mg IVP TID KACY Last Admin: 07/30/18 18:54 Dose: 40 mg Pantoprazole Sodium (Protonix Inj) 40 mg IVP Q12 KACY Last Admin: 07/30/18 23:00 Dose: 40 mg - Labs Labs: 07/31/18 06:21 07/31/18 06:19 PT 17.7 SECONDS (9.7-12.2) H D 07/30/18 06:11 INR 1.6 D 07/30/18 06:11 APTT 49 SECONDS (21-34) H D 07/31/18 06:21 - Constitutional Appears: Other (lethargic, arousable) - Head Exam Additional comments: left sided frontal hematoma noted - Eye Exam Eye Exam: EOMI Pupil Exam: PERRL - Respiratory Exam Respiratory Exam: Clear to Ausculation Bilateral. absent: Respiratory Distress - Cardiovascular Exam Cardiovascular Exam: REGULAR RHYTHM, +S1, +S2 - GI/Abdominal Exam GI & Abdominal Exam: Normal Bowel Sounds. absent: Guarding, Rigid - Extremities Exam Extremities Exam: Normal Inspection - Neurological Exam Additional comments: lethargic, arousable. Writes down questions - Skin Skin Exam: Warm Assessment and Plan - Assessment and Plan (Free Text) Assessment: This is a 48 year old female with PMH of anxiety presenting to the ED s/p witnessed syncopal episode after return from [place] on bus. Plan: B/L P.E. -echo pending for today -currently on heparin drip -pulse in the 60s overnight, BP low of 96/59 overnight -echo showed normal LV EF, mild TR, pulmonary hypertension and RV dilated -will not do EKOS at this time due to unknown status of prothrombotic state -CTA showed diffuse bilateral pulmonary emboli of B/L central and segmental pulmonary arteries, pulmonary venous congestion compatible with CHF vs left basilar atelectasis vs pulmonary infarct -D-dimer > 5250, PT/INR/PTT elevated, elevated fibrinogen products -s/p respiratory arrest, ACLS performed -LE duplex shows left acute thrombosis of the left common femoral vein Afib -EKG on admission showed afib with RVR at 146bpm, uncertain if new finding Case discussed with attending, further recommendations per Dr. Ba
[2018-07-31 08:42] LABS: BANDS 8 % (0-2); LYMPHOCYTE 2 % (20-40); METAMYELOCYTE 1 % (0-0); MONOCYTE 2 % (0-10); MYELOCYTE 1 % (0-0); NEUTROPHIL 86 % (50-75); PLATELET ESTIMATE DECREASED (NORMAL); TOTAL CELLS COUNTED 100
[2018-07-31 08:43] LABS: HYPOCHROMIC MODERATE; TOXIC GRANULATION PRESENT
--- NOTE | 2018-07-31 08:49 | CP.PCM.PN ---
Subjective - Date & Time of Evaluation Date of Evaluation: 07/31/18 Time of Evaluation: 08:45 - Subjective Subjective: Surgery Pt seen and examined. No acute events. c/o abd pain and diarrhea. On vent, off pressers, off sedation. FiO2 50%. FOllow commands. Awake. Objective - Vital Signs/Intake and Output Vital Signs (last 24 hours): Temp Pulse Resp BP Pulse Ox 98.1 F 65 13 106/65 100 07/31/18 04:00 07/31/18 08:00 07/31/18 08:00 07/31/18 07:11 07/31/18 08:00 Intake and Output: 07/31/18 07/31/18 06:59 18:59 Intake Total 1174.4 Output Total 200 Balance 974.4 - Medications Medications: Current Medications Albuterol/Ipratropium (Duoneb 3 Mg/0.5 Mg (3 Ml) Ud) 3 ml INH RQ6 KACY Last Admin: 07/31/18 08:09 Dose: 3 ml Heparin Sodium/Sodium Chloride (Heparin 53285 Units/250ml 1/2 Normal Saline) 25,000 units in 250 mls @ 12.247 mls/hr IV .[id number] PRN; Protocol PRN Reason: ADJUST RATE PER PROTOCOL Last Admin: 07/30/18 23:17 Dose: 12 units/kg/hr, 8.709 mls/hr Norepinephrine Bitartrate 4 mg (/ Sodium Chloride) 250 mls @ 15 mls/hr IV .[id number] PRN; Protocol PRN Reason: TITRATE PER MD ORDER Last Titration: 07/30/18 08:30 Dose: 0 mcg/min, 0 mls/hr Phenylephrine HCl 30 mg/ (Sodium Chloride) 250 mls @ 10 mls/hr IV .Q24H PRN; Protocol PRN Reason: TITRATE PER MD ORDER Last Titration: 07/28/18 15:37 Dose: 0 mcg/min, 0 mls/hr Vasopressin 40 units/ Sodium (Chloride) 40 mls @ 1.2 mls/hr IV .Q24H KACY; Protocol Last Admin: 07/30/18 11:04 Dose: Not Given Dexmedetomidine HCl 200 mcg/ (Sodium Chloride) 50 mls @ 3.63 mls/hr IV TITR PRN; Protocol PRN Reason: Sedation Last Titration: 07/31/18 00:27 Dose: Infused Piperacillin Sod/Tazobactam (Sod 2.25 gm/ Sodium Chloride) 100 mls @ 200 mls/hr IVPB Q6H KACY; Protocol Last Admin: 07/31/18 04:14 Dose: 200 mls/hr Dopamine HCl/Dextrose (Dopamine 400mg/250ml D5w) 400 mg in 250 mls @ 6.875 mls/hr IV .Q24H PRN; Protocol PRN Reason: TITRATE PER MD ORDER Last Titration: 07/30/18 08:50 Dose: 0 mcg/kg/min, 0 mls/hr Dextrose (Dextrose 5% In Water 1000 Ml) 1,000 mls @ 100 mls/hr IV .Q10H KACY Stop: 07/31/18 09:29 Last Admin: 07/31/18 00:16 Dose: 100 mls/hr Lorazepam (Ativan) 2 mg IVP Q4 PRN PRN Reason: Anxiety Last Admin: 07/31/18 06:24 Dose: 2 mg Methylprednisolone (Solu-Medrol) 40 mg IVP TID KACY Last Admin: 07/30/18 18:54 Dose: 40 mg Pantoprazole Sodium (Protonix Inj) 40 mg IVP Q12 KACY Last Admin: 07/30/18 23:00 Dose: 40 mg - Labs Labs: 07/31/18 06:21 07/31/18 06:19 PT 17.7 SECONDS (9.7-12.2) H D 07/30/18 06:11 INR 1.6 D 07/30/18 06:11 APTT 49 SECONDS (21-34) H D 07/31/18 06:21 - Constitutional Appears: In Acute Distress - Head Exam Head Exam: ATRAUMATIC, NORMOCEPHALIC - Eye Exam Eye Exam: EOMI, PERRL. absent: Normal appearance Pupil Exam: NORMAL ACCOMODATION, PERRL Additional comments: L eye ecchymosis - ENT Exam ENT Exam: Mucous Membranes Moist, Normal Exam - Neck Exam Neck Exam: Full ROM - Respiratory Exam Respiratory Exam: Respiratory Distress Additional comments: Intubated. - Cardiovascular Exam Cardiovascular Exam: REGULAR RHYTHM, +S1, +S2. absent: Murmur - GI/Abdominal Exam GI & Abdominal Exam: Soft, Tenderness, Normal Bowel Sounds. absent: Distended - Extremities Exam Extremities Exam: Full ROM. absent: Joint Swelling, Pedal Edema - Neurological Exam Neurological Exam: Awake - Skin Skin Exam: Dry, Intact, Normal Color, Warm Assessment and Plan - Assessment and Plan (Free Text) Assessment: 48F WITH b/l PE, Femoral DVTs, and sepsis of unknown origin - possibly gallbladder Worsening Cr 6 today Plan: Possible IVC Filter/ Possible HD catheter Consider CTA abdomen once stable. Cr stabilize Recommend Cholecystostomy tube Cont Abx Will D/W Dr. Mckeon
[2018-07-31] MEDS ORDERED: Potassium Chloride 20 mEq/15 ml LIQ UD ONE (09:49)
[2018-07-31] MEDS: Potassium Chloride 20 mEq/15 ml LIQ UD PO SCH ×2 (09:55→14:52)
--- NOTE | 2018-07-31 09:55 | CP.CCUPN ---
<Aftab Ruano - Last Filed: 07/31/18 16:41> CCU Objective - Vital Signs / Intake & Output Vital Signs (Last 4 hours): Vital Signs Temp Pulse Resp BP Pulse Ox 07/31/18 16:04 74 21 100/76 99 07/31/18 16:00 71 18 100 07/31/18 15:45 64 30 H 100 07/31/18 15:40 77 07/31/18 15:35 69 31 H 106/76 97 07/31/18 15:30 98.2 F 71 23 106/76 97 07/31/18 15:15 72 25 H 97 07/31/18 15:04 90 18 117/67 95 07/31/18 15:00 66 20 98 07/31/18 14:50 98.3 F 71 29 H 110/66 07/31/18 14:45 67 32 H 100 07/31/18 14:35 75 33 H 110/66 99 07/31/18 14:30 75 22 99 07/31/18 14:15 74 29 H 100 07/31/18 14:04 68 27 H 114/71 98 07/31/18 14:00 98.6 F 66 22 114/71 100 07/31/18 13:45 74 36 H 100 07/31/18 13:34 64 30 H 124/69 100 07/31/18 13:30 77 20 100 07/31/18 13:15 98.6 F 67 35 H 124/69 100 07/31/18 13:03 62 31 H 121/70 100 07/31/18 13:00 64 28 H 100 07/31/18 12:48 71 28 H 111/73 100 07/31/18 12:45 68 32 H 100 Intake and Output (Last 8hrs): Intake & Output 07/31/18 07/31/18 07/31/18 06:59 14:59 22:59 Intake Total 926.8 1444.6 133.7 Output Total 140 200 0 Balance 786.8 1244.6 133.7 Weight 198 lb 14.4 oz Intake: IV 40 Intake, IV Amount 876.8 619.6 8.7 Left Distal Port Internal 69.6 69.6 8.7 Jugular Left Medial Port Internal 107.2 Jugular Left Proximal Port 700 550 Internal Jugular Tube Feeding 10 Blood Product 775 125 Red Blood Cells Cpd As1 0 Lr Unit [id number] Red Blood Cells Cpd As1 325 Lr Unit [id number] Other 50 Red Blood Cells Cpd As1 50 Lr Unit [id number] Output: Urine 140 200 Urethral (Becerril) 140 200 Oral Regurgitation 0 0 Other: # Bowel Movements 1 0 0 - Medications Active Medications: Active Medications Generic Name Dose Route Start Last Admin Trade Name Freq PRN Reason Stop Dose Admin Albuterol/Ipratropium 3 ml 07/31/18 20:00 Duoneb 3 Mg/0.5 Mg (3 Ml) Ud INH RQ6 KACY Heparin Sodium/Sodium Chloride 25,000 units in 250 mls @ 12.247 mls/hr 07/27/18 07:09 07/30/18 23:17 Heparin 52466 Units/250ml 1/2 Normal Saline IV 12 units/kg/hr .[id number] PRN 8.709 mls/hr ADJUST RATE PER PROTOCOL Administration Protocol 16.875 UNITS/KG/HR Dexmedetomidine HCl 200 mcg/ 50 mls @ 3.63 mls/hr 07/27/18 16:08 07/31/18 00:27 Sodium Chloride IV Infused TITR PRN Titration Sedation Protocol 0.2 MCG/KG/HR Potassium Chloride 20 meq in 100 mls @ 50 mls/hr 07/31/18 12:45 07/31/18 14:20 Potassium Chloride 20 Meq/100 Ml IVPB 07/31/18 16:44 50 mls/hr Q2H KACY Administration Cefepime HCl 1 gm in 50 mls @ 100 mls/hr 07/31/18 14:00 07/31/18 14:58 Maxipime Iv 1 Gm Premix IVPB 100 mls/hr Q12H KACY Administration Protocol Lorazepam 2 mg 07/27/18 08:25 07/31/18 06:24 Ativan IVP 2 mg Q4 PRN Administration Anxiety Methylprednisolone 40 mg 07/27/18 10:00 07/31/18 15:17 Solu-Medrol IVP 40 mg TID KACY Administration Metronidazole 500 mg 07/31/18 14:00 07/31/18 15:15 Flagyl PO 500 mg Q8 KACY Administration Protocol Pantoprazole Sodium 40 mg 07/27/18 10:00 07/31/18 09:59 Protonix Inj IVP 40 mg Q12 KACY Administration Potassium Chloride 40 meq 07/31/18 12:45 07/31/18 13:00 K-Dur 20 Meq Er Tab PO 40 meq DAILY KACY Administration - Patient Studies Lab Studies: Microbiology Studies 07/29/18 00:28 Gram Stain - Final Sputum Sputum Culture - Final Yeast Species 07/27/18 10:29 Blood Culture - Preliminary Blood-Venous NO GROWTH AFTER 4 DAYS 07/27/18 10:04 Blood Culture - Preliminary Blood-Venous NO GROWTH AFTER 4 DAYS Lab Studies 07/31/18 07/31/18 07/31/18 Range/Units 15:36 09:11 06:21 WBC (4.8-10.8) K/uL RBC (3.80-5.20) Mil/uL Hgb (11.0-16.0) g/dL Hct (34.0-47.0) % MCV (81.0-99.0) fL MCH (27.0-31.0) pg MCHC (33.0-37.0) g/dL RDW (11.5-14.5) % Plt Count (130-400) K/uL MPV (7.2-11.7) fL Neut % (Auto) (50.0-75.0) % Lymph % (Auto) (20.0-40.0) % Murray % (Auto) (0.0-10.0) % Eos % (Auto) (0.0-4.0) % Baso % (Auto) (0.0-2.0) % Neut # (Auto) (1.8-7.0) K/uL Lymph # (Auto) (1.0-4.3) K/uL Murray # (Auto) (0.0-0.8) K/uL Eos # (Auto) (0.0-0.7) K/uL Baso # (Auto) (0.0-0.2) K/uL Neutrophils % (Manual) (50-75) % Band Neutrophils % (0-2) % Lymphocytes % (Manual) (20-40) % Monocytes % (Manual) (0-10) % Metamyelocytes % (0-0) % Myelocytes % (0-0) % Toxic Granulation Platelet Estimate (NORMAL) Hypochromasia (manual) APTT 49 H D (21-34) SECONDS Puncture Site pCO2 (35-45) mm/Hg pO2 (80-100) mm/Hg HCO3 (21-28) mmol/L ABG pH (7.35-7.45) ABG Total CO2 (22-28) mmol/L ABG O2 Saturation (95-98) % ABG Base Excess (-2.0-3.0) mmol/L ABG Hemoglobin (11.7-17.4) g/dL ABG Carboxyhemoglobin (0.5-1.5) % POC ABG HHb (Measured) (0.0-5.0) % ABG Methemoglobin (0.0-3.0) % Bryce Test A-a O2 Difference mm/Hg Respiratory Index Hgb O2 Saturation (95.0-98.0) % Vent Mode Mechanical Rate FiO2 % Tidal Volume PEEP Sodium 155 H (132-148) mmol/L Potassium 4.5 (3.6-5.2) mmol/L Chloride 115 H (98-107) mmol/L Carbon Dioxide 22 (22-30) mmol/L Anion Gap 22 H (10-20) BUN 75 H (7-17) mg/dL Creatinine 6.1 H (0.7-1.2) mg/dL Est GFR ( Amer) 9 Est GFR (Non-Af Amer) 7 Random Glucose 165 H (65-105) mg/dL Calcium 7.3 L (8.6-10.4) mg/dl Phosphorus (2.5-4.5) mg/dL Magnesium (1.6-2.3) mg/dL Total Bilirubin (0.2-1.3) mg/dL AST (14-36) U/L ALT (9-52) U/L Alkaline Phosphatase (38-126) U/L Total Protein (6.3-8.3) g/dL Albumin (3.5-5.0) g/dL Globulin (2.2-3.9) gm/dL Albumin/Globulin Ratio (1.0-2.1) Salmonella H Type A Salmonella H Type B Salmonella H Type D Salmonella O Type D Salmonella O Type Vi Blood Type A POSITIVE Antibody Screen Negative 07/31/18 07/31/18 07/31/18 Range/Units 06:21 06:19 05:20 WBC 21.6 H (4.8-10.8) K/uL RBC 2.49 L (3.80-5.20) Mil/uL Hgb 6.4 L* (11.0-16.0) g/dL Hct 19.7 L (34.0-47.0) % MCV 79.1 L (81.0-99.0) fL MCH 25.8 L (27.0-31.0) pg MCHC 32.7 L (33.0-37.0) g/dL RDW 14.4 (11.5-14.5) % Plt Count 87 L (130-400) K/uL MPV 11.8 H (7.2-11.7) fL Neut % (Auto) 95.2 H (50.0-75.0) % Lymph % (Auto) 1.9 L (20.0-40.0) % Murray % (Auto) 2.6 (0.0-10.0) % Eos % (Auto) 0.2 (0.0-4.0) % Baso % (Auto) 0.1 (0.0-2.0) % Neut # (Auto) 20.6 H (1.8-7.0) K/uL Lymph # (Auto) 0.4 L (1.0-4.3) K/uL Murray # (Auto) 0.6 (0.0-0.8) K/uL Eos # (Auto) 0.0 (0.0-0.7) K/uL Baso # (Auto) 0.0 (0.0-0.2) K/uL Neutrophils % (Manual) 86 H (50-75) % Band Neutrophils % 8 H (0-2) % Lymphocytes % (Manual) 2 L (20-40) % Monocytes % (Manual) 2 (0-10) % Metamyelocytes % 1 H (0-0) % Myelocytes % 1 H (0-0) % Toxic Granulation Present Platelet Estimate Decreased L (NORMAL) Hypochromasia (manual) Moderate APTT (21-34) SECONDS Puncture Site Rr pCO2 25 L (35-45) mm/Hg pO2 220 H (80-100) mm/Hg HCO3 23.9 (21-28) mmol/L ABG pH 7.53 H (7.35-7.45) ABG Total CO2 21.7 L (22-28) mmol/L ABG O2 Saturation 99.3 H (95-98) % ABG Base Excess -1.4 (-2.0-3.0) mmol/L ABG Hemoglobin 7.1 L (11.7-17.4) g/dL ABG Carboxyhemoglobin 0.8 (0.5-1.5) % POC ABG HHb (Measured) 0.7 (0.0-5.0) % ABG Methemoglobin 0.8 (0.0-3.0) % Bryce Test Pos A-a O2 Difference 105.0 mm/Hg Respiratory Index 0.5 Hgb O2 Saturation 97.8 (95.0-98.0) % Vent Mode Prvc Mechanical Rate 20 FiO2 50.0 % Tidal Volume 500 PEEP 5 Sodium 154 H (132-148) mmol/L Potassium 2.9 L (3.6-5.2) mmol/L Chloride 116 H (98-107) mmol/L Carbon Dioxide 22 (22-30) mmol/L Anion Gap 19 (10-20) BUN 69 H (7-17) mg/dL Creatinine 6.0 H (0.7-1.2) mg/dL Est GFR ( Amer) 9 Est GFR (Non-Af Amer) 8 Random Glucose 179 H (65-105) mg/dL Calcium 7.0 L (8.6-10.4) mg/dl Phosphorus 4.5 (2.5-4.5) mg/dL Magnesium 2.4 H (1.6-2.3) mg/dL Total Bilirubin 1.1 (0.2-1.3) mg/dL AST 206 H D (14-36) U/L ALT 296 H D (9-52) U/L Alkaline Phosphatase 104 (38-126) U/L Total Protein 5.3 L (6.3-8.3) g/dL Albumin 3.4 L D (3.5-5.0) g/dL Globulin 1.9 L (2.2-3.9) gm/dL Albumin/Globulin Ratio 1.8 (1.0-2.1) Salmonella H Type A Salmonella H Type B Salmonella H Type D Salmonella O Type D Salmonella O Type Vi Blood Type Antibody Screen 07/30/18 07/27/18 Range/Units 22:21 18:26 WBC (4.8-10.8) K/uL RBC (3.80-5.20) Mil/uL Hgb (11.0-16.0) g/dL Hct (34.0-47.0) % MCV (81.0-99.0) fL MCH (27.0-31.0) pg MCHC (33.0-37.0) g/dL RDW (11.5-14.5) % Plt Count (130-400) K/uL MPV (7.2-11.7) fL Neut % (Auto) (50.0-75.0) % Lymph % (Auto) (20.0-40.0) % Murray % (Auto) (0.0-10.0) % Eos % (Auto) (0.0-4.0) % Baso % (Auto) (0.0-2.0) % Neut # (Auto) (1.8-7.0) K/uL Lymph # (Auto) (1.0-4.3) K/uL Murray # (Auto) (0.0-0.8) K/uL Eos # (Auto) (0.0-0.7) K/uL Baso # (Auto) (0.0-0.2) K/uL Neutrophils % (Manual) (50-75) % Band Neutrophils % (0-2) % Lymphocytes % (Manual) (20-40) % Monocytes % (Manual) (0-10) % Metamyelocytes % (0-0) % Myelocytes % (0-0) % Toxic Granulation Platelet Estimate (NORMAL) Hypochromasia (manual) APTT 41 H (21-34) SECONDS Puncture Site pCO2 (35-45) mm/Hg pO2 (80-100) mm/Hg HCO3 (21-28) mmol/L ABG pH (7.35-7.45) ABG Total CO2 (22-28) mmol/L ABG O2 Saturation (95-98) % ABG Base Excess (-2.0-3.0) mmol/L ABG Hemoglobin (11.7-17.4) g/dL ABG Carboxyhemoglobin (0.5-1.5) % POC ABG HHb (Measured) (0.0-5.0) % ABG Methemoglobin (0.0-3.0) % Bryce Test A-a O2 Difference mm/Hg Respiratory Index Hgb O2 Saturation (95.0-98.0) % Vent Mode Mechanical Rate FiO2 % Tidal Volume PEEP Sodium (132-148) mmol/L Potassium (3.6-5.2) mmol/L Chloride (98-107) mmol/L Carbon Dioxide (22-30) mmol/L Anion Gap (10-20) BUN (7-17) mg/dL Creatinine (0.7-1.2) mg/dL Est GFR ( Amer) Est GFR (Non-Af Amer) Random Glucose (65-105) mg/dL Calcium (8.6-10.4) mg/dl Phosphorus (2.5-4.5) mg/dL Magnesium (1.6-2.3) mg/dL Total Bilirubin (0.2-1.3) mg/dL AST (14-36) U/L ALT (9-52) U/L Alkaline Phosphatase (38-126) U/L Total Protein (6.3-8.3) g/dL Albumin (3.5-5.0) g/dL Globulin (2.2-3.9) gm/dL Albumin/Globulin Ratio (1.0-2.1) Salmonella H Type A Equivocal H Salmonella H Type B Equivocal H Salmonella H Type D Equivocal H Salmonella O Type D Negative Salmonella O Type Vi Equivocal H Blood Type Antibody Screen Laboratory Results - last 24 hr 07/27/18 07/30/18 07/31/18 18:26 22:21 05:20 WBC RBC Hgb Hct MCV MCH MCHC RDW Plt Count MPV Neut % (Auto) Lymph % (Auto) Murray % (Auto) Eos % (Auto) Baso % (Auto) Neut # (Auto) Lymph # (Auto) Murray # (Auto) Eos # (Auto) Baso # (Auto) Neutrophils % (Manual) Band Neutrophils % Lymphocytes % (Manual) Monocytes % (Manual) Metamyelocytes % Myelocytes % Toxic Granulation Platelet Estimate Hypochromasia (manual) APTT 41 H Puncture Site Rr pCO2 25 L pO2 220 H HCO3 23.9 ABG pH 7.53 H ABG Total CO2 21.7 L ABG O2 Saturation 99.3 H ABG Base Excess -1.4 ABG Hemoglobin 7.1 L ABG Carboxyhemoglobin 0.8 POC ABG HHb (Measured) 0.7 ABG Methemoglobin 0.8 Bryce Test Pos A-a O2 Difference 105.0 Respiratory Index 0.5 Hgb O2 Saturation 97.8 Vent Mode Prvc Mechanical Rate 20 FiO2 50.0 Tidal Volume 500 PEEP 5 Sodium Potassium Chloride Carbon Dioxide Anion Gap BUN Creatinine Est GFR ( Amer) Est GFR (Non-Af Amer) Random Glucose Calcium Phosphorus Magnesium Total Bilirubin AST ALT Alkaline Phosphatase Total Protein Albumin Globulin Albumin/Globulin Ratio Salmonella H Type A Equivocal H Salmonella H Type B Equivocal H Salmonella H Type D Equivocal H Salmonella O Type D Negative Salmonella O Type Vi Equivocal H Blood Type Antibody Screen 07/31/18 07/31/18 07/31/18 06:19 06:21 06:21 WBC 21.6 H RBC 2.49 L Hgb 6.4 L* Hct 19.7 L MCV 79.1 L MCH 25.8 L MCHC 32.7 L RDW 14.4 Plt Count 87 L MPV 11.8 H Neut % (Auto) 95.2 H Lymph % (Auto) 1.9 L Murray % (Auto) 2.6 Eos % (Auto) 0.2 Baso % (Auto) 0.1 Neut # (Auto) 20.6 H Lymph # (Auto) 0.4 L Murray # (Auto) 0.6 Eos # (Auto) 0.0 Baso # (Auto) 0.0 Neutrophils % (Manual) 86 H Band Neutrophils % 8 H Lymphocytes % (Manual) 2 L Monocytes % (Manual) 2 Metamyelocytes % 1 H Myelocytes % 1 H Toxic Granulation Present Platelet Estimate Decreased L Hypochromasia (manual) Moderate APTT 49 H D Puncture Site pCO2 pO2 HCO3 ABG pH ABG Total CO2 ABG O2 Saturation ABG Base Excess ABG Hemoglobin ABG Carboxyhemoglobin POC ABG HHb (Measured) ABG Methemoglobin Bryce Test A-a O2 Difference Respiratory Index Hgb O2 Saturation Vent Mode Mechanical Rate FiO2 Tidal Volume PEEP Sodium 154 H Potassium 2.9 L Chloride 116 H Carbon Dioxide 22 Anion Gap 19 BUN 69 H Creatinine 6.0 H Est GFR ( Amer) 9 Est GFR (Non-Af Amer) 8 Random Glucose 179 H Calcium 7.0 L Phosphorus 4.5 Magnesium 2.4 H Total Bilirubin 1.1 AST 206 H D ALT 296 H D Alkaline Phosphatase 104 Total Protein 5.3 L Albumin 3.4 L D Globulin 1.9 L Albumin/Globulin Ratio 1.8 Salmonella H Type A Salmonella H Type B Salmonella H Type D Salmonella O Type D Salmonella O Type Vi Blood Type Antibody Screen 07/31/18 07/31/18 09:11 15:36 WBC RBC Hgb Hct MCV MCH MCHC RDW Plt Count MPV Neut % (Auto) Lymph % (Auto) Murray % (Auto) Eos % (Auto) Baso % (Auto) Neut # (Auto) Lymph # (Auto) Murray # (Auto) Eos # (Auto) Baso # (Auto) Neutrophils % (Manual) Band Neutrophils % Lymphocytes % (Manual) Monocytes % (Manual) Metamyelocytes % Myelocytes % Toxic Granulation Platelet Estimate Hypochromasia (manual) APTT Puncture Site pCO2 pO2 HCO3 ABG pH ABG Total CO2 ABG O2 Saturation ABG Base Excess ABG Hemoglobin ABG Carboxyhemoglobin POC ABG HHb (Measured) ABG Methemoglobin Bryce Test A-a O2 Difference Respiratory Index Hgb O2 Saturation Vent Mode Mechanical Rate FiO2 Tidal Volume PEEP Sodium 155 H Potassium 4.5 Chloride 115 H Carbon Dioxide 22 Anion Gap 22 H BUN 75 H Creatinine 6.1 H Est GFR ( Amer) 9 Est GFR (Non-Af Amer) 7 Random Glucose 165 H Calcium 7.3 L Phosphorus Magnesium Total Bilirubin AST ALT Alkaline Phosphatase Total Protein Albumin Globulin Albumin/Globulin Ratio Salmonella H Type A Salmonella H Type B Salmonella H Type D Salmonella O Type D Salmonella O Type Vi Blood Type A POSITIVE Antibody Screen Negative Attending/Attestation - Attestation I have personally seen and examined this patient.: Yes I have fully participated in the care of the patient.: Yes I have reviewed all pertinent clinical information: Yes Notes (Text): 07/31/18 16:41 I have seen and examined the patient. Medical records, lab studies, and imaging were reviewed by me and a management plan was formulated on multidisciplinary rounds with resident Dr. Denton. I agree with their documented assessment and plan. Patient was doing well, ready for extubation. Will extubate to BIPAP, because still high risk with fluid overload. Will continue diuresis with bumex 3mg q6h. She is still in oliguric renal failure, but no current indication for dialysis. Critical Care Time 35 minutes. Multi-disciplinary rounds were performed with house staff, nursing, speech therapy, respiratory therapy, pharmacy and nutrition with integrated input from the primary team/attending and other consulting services. The documented time is cumulative and includes review of patient data/exams/labs/chart review and examination of the patient on rounds and throughout the day; time is exclusive of any procedures or teaching time. <Corrie Chowdary Jerson - Last Filed: 07/31/18 17:39> CCU Subjective - Physician Review Subjective (Free Text): Resident Critical Care Progress Note Patient examined at bedside. Offers no complaints at this time. Patient is s/p extubation and currently saturating well on bipap. Critical Care Time Spent (in minutes): 35 CCU Objective - Vital Signs / Intake & Output Vital Signs (Last 4 hours): Vital Signs Pulse Resp BP Pulse Ox 07/31/18 08:00 65 13 100 07/31/18 07:11 67 29 H 106/65 100 07/31/18 07:00 70 25 H 100 07/31/18 06:10 64 22 116/68 07/31/18 06:00 68 31 H Intake and Output (Last 8hrs): Intake & Output 07/30/18 07/31/18 07/31/18 22:59 06:59 14:59 Intake Total 586.4 926.8 Output Total 150 140 Balance 436.4 786.8 Weight 198 lb 14.4 oz Intake: IV 50 40 Intake, IV Amount 486.4 876.8 Left Distal Port Internal 57.6 69.6 Jugular Left Medial Port Internal 128.8 107.2 Jugular Left Proximal Port 300 700 Internal Jugular Tube Feeding 50 10 Output: Urine 148 140 Urethral (Becerril) 148 140 Stool 2 Other: # Bowel Movements 1 1 - Physical Exam Head: Positive for: Normocephalic, Ecchymosis Pupils: Positive for: PERRL Extroacular Muscles: Positive for: EOMI Conjunctiva: Positive for: Normal Mouth: Positive for: Dry Neck: Positive for: Trachea Midline Respiratory/Chest: Positive for: Good Air Exchange, Decreased Breath Sounds Cardiovascular: Positive for: Regular Rate and Rhythm, Normal S1, S2 Abdomen: Positive for: Tenderness (mild tenderness in right upper quadrant ) Upper Extremity: Positive for: Other (ecchymosis surrounding IV sites ). Negative for: Cyanosis Lower Extremity: Positive for: Edema. Negative for: CALF TENDERNESS, Temperature Abnormalties Skin: Positive for: Warm, Dry, Normal Color Psychiatric: Positive for: Alert, Anxious - Medications Active Medications: Active Medications Generic Name Dose Route Start Last Admin Trade Name Freq PRN Reason Stop Dose Admin Albuterol/Ipratropium 3 ml 07/29/18 14:00 07/31/18 08:09 Duoneb 3 Mg/0.5 Mg (3 Ml) Ud INH 3 ml RQ6 KACY Administration Heparin Sodium/Sodium Chloride 25,000 units in 250 mls @ 12.247 mls/hr 07/27/18 07:09 07/30/18 23:17 Heparin 80711 Units/250ml 1/2 Normal Saline IV 12 units/kg/hr .[id number] PRN 8.709 mls/hr ADJUST RATE PER PROTOCOL Administration Protocol 16.875 UNITS/KG/HR Norepinephrine Bitartrate 4 mg 250 mls @ 15 mls/hr 07/27/18 07:39 07/30/18 08:30 / Sodium Chloride IV 0 mcg/min .[id number] PRN 0 mls/hr TITRATE PER MD ORDER Titration Protocol 4 MCG/MIN Phenylephrine HCl 30 mg/ 250 mls @ 10 mls/hr 07/27/18 09:40 07/28/18 15:37 Sodium Chloride IV 0 mcg/min .Q24H PRN 0 mls/hr TITRATE PER MD ORDER Titration Protocol 20 MCG/MIN Vasopressin 40 units/ Sodium 40 mls @ 1.2 mls/hr 07/27/18 11:00 07/30/18 11:04 Chloride IV Not Given .Q24H KACY Protocol 0.02 UNITS/MIN Dexmedetomidine HCl 200 mcg/ 50 mls @ 3.63 mls/hr 07/27/18 16:08 07/31/18 00:27 Sodium Chloride IV Infused TITR PRN Titration Sedation Protocol 0.2 MCG/KG/HR Piperacillin Sod/Tazobactam 100 mls @ 200 mls/hr 07/28/18 10:00 07/31/18 04:14 Sod 2.25 gm/ Sodium Chloride IVPB 200 mls/hr Q6H KACY Administration Protocol Dopamine HCl/Dextrose 400 mg in 250 mls @ 6.875 mls/hr 07/30/18 07:11 07/30/18 08:50 Dopamine 400mg/250ml D5w IV 0 mcg/kg/min .Q24H PRN 0 mls/hr TITRATE PER MD ORDER Titration Protocol 2 MCG/KG/MIN Lorazepam 2 mg 07/27/18 08:25 07/31/18 06:24 Ativan IVP 2 mg Q4 PRN Administration Anxiety Methylprednisolone 40 mg 07/27/18 10:00 07/30/18 18:54 Solu-Medrol IVP 40 mg TID KACY Administration Pantoprazole Sodium 40 mg 07/27/18 10:00 07/30/18 23:00 Protonix Inj IVP 40 mg Q12 KACY Administration - Patient Studies Lab Studies: Microbiology Studies 07/29/18 00:28 Gram Stain - Final Sputum 07/27/18 10:29 Blood Culture - Preliminary Blood-Venous NO GROWTH AFTER 3 DAYS 07/27/18 10:04 Blood Culture - Preliminary Blood-Venous NO GROWTH AFTER 3 DAYS Lab Studies 07/31/18 07/31/18 07/31/18 Range/Units 09:11 06:21 06:21 WBC 21.6 H (4.8-10.8) K/uL RBC 2.49 L (3.80-5.20) Mil/uL Hgb 6.4 L* (11.0-16.0) g/dL Hct 19.7 L (34.0-47.0) % MCV 79.1 L (81.0-99.0) fL MCH 25.8 L (27.0-31.0) pg MCHC 32.7 L (33.0-37.0) g/dL RDW 14.4 (11.5-14.5) % Plt Count 87 L (130-400) K/uL MPV 11.8 H (7.2-11.7) fL Neut % (Auto) 95.2 H (50.0-75.0) % Lymph % (Auto) 1.9 L (20.0-40.0) % Murray % (Auto) 2.6 (0.0-10.0) % Eos % (Auto) 0.2 (0.0-4.0) % Baso % (Auto) 0.1 (0.0-2.0) % Neut # (Auto) 20.6 H (1.8-7.0) K/uL Lymph # (Auto) 0.4 L (1.0-4.3) K/uL Murray # (Auto) 0.6 (0.0-0.8) K/uL Eos # (Auto) 0.0 (0.0-0.7) K/uL Baso # (Auto) 0.0 (0.0-0.2) K/uL Neutrophils % (Manual) 86 H (50-75) % Band Neutrophils % 8 H (0-2) % Lymphocytes % (Manual) 2 L (20-40) % Monocytes % (Manual) 2 (0-10) % Metamyelocytes % 1 H (0-0) % Myelocytes % 1 H (0-0) % Toxic Granulation Present Platelet Estimate Decreased L (NORMAL) Hypochromasia (manual) Moderate APTT 49 H D (21-34) SECONDS Fibrinogen (200-400) mg/dL Puncture Site pCO2 (35-45) mm/Hg pO2 (80-100) mm/Hg HCO3 (21-28) mmol/L ABG pH (7.35-7.45) ABG Total CO2 (22-28) mmol/L ABG O2 Saturation (95-98) % ABG Base Excess (-2.0-3.0) mmol/L ABG Hemoglobin (11.7-17.4) g/dL ABG Carboxyhemoglobin (0.5-1.5) % POC ABG HHb (Measured) (0.0-5.0) % ABG Methemoglobin (0.0-3.0) % Bryce Test A-a O2 Difference mm/Hg Respiratory Index Hgb O2 Saturation (95.0-98.0) % Vent Mode Mechanical Rate FiO2 % Tidal Volume PEEP Sodium (132-148) mmol/L Potassium (3.6-5.2) mmol/L Chloride (98-107) mmol/L Carbon Dioxide (22-30) mmol/L Anion Gap (10-20) BUN (7-17) mg/dL Creatinine (0.7-1.2) mg/dL Est GFR ( Amer) Est GFR (Non-Af Amer) Random Glucose (65-105) mg/dL Calcium (8.6-10.4) mg/dl Phosphorus (2.5-4.5) mg/dL Magnesium (1.6-2.3) mg/dL Total Bilirubin (0.2-1.3) mg/dL AST (14-36) U/L ALT (9-52) U/L Alkaline Phosphatase (38-126) U/L Total Protein (6.3-8.3) g/dL Albumin (3.5-5.0) g/dL Globulin (2.2-3.9) gm/dL Albumin/Globulin Ratio (1.0-2.1) Salmonella H Type A Salmonella H Type B Salmonella H Type D Salmonella O Type D Salmonella O Type Vi Blood Type A POSITIVE 07/31/18 07/31/18 07/30/18 Range/Units 06:19 05:20 22:21 WBC (4.8-10.8) K/uL RBC (3.80-5.20) Mil/uL Hgb (11.0-16.0) g/dL Hct (34.0-47.0) % MCV (81.0-99.0) fL MCH (27.0-31.0) pg MCHC (33.0-37.0) g/dL RDW (11.5-14.5) % Plt Count (130-400) K/uL MPV (7.2-11.7) fL Neut % (Auto) (50.0-75.0) % Lymph % (Auto) (20.0-40.0) % Murray % (Auto) (0.0-10.0) % Eos % (Auto) (0.0-4.0) % Baso % (Auto) (0.0-2.0) % Neut # (Auto) (1.8-7.0) K/uL Lymph # (Auto) (1.0-4.3) K/uL Murray # (Auto) (0.0-0.8) K/uL Eos # (Auto) (0.0-0.7) K/uL Baso # (Auto) (0.0-0.2) K/uL Neutrophils % (Manual) (50-75) % Band Neutrophils % (0-2) % Lymphocytes % (Manual) (20-40) % Monocytes % (Manual) (0-10) % Metamyelocytes % (0-0) % Myelocytes % (0-0) % Toxic Granulation Platelet Estimate (NORMAL) Hypochromasia (manual) APTT 41 H (21-34) SECONDS Fibrinogen (200-400) mg/dL Puncture Site Rr pCO2 25 L (35-45) mm/Hg pO2 220 H (80-100) mm/Hg HCO3 23.9 (21-28) mmol/L ABG pH 7.53 H (7.35-7.45) ABG Total CO2 21.7 L (22-28) mmol/L ABG O2 Saturation 99.3 H (95-98) % ABG Base Excess -1.4 (-2.0-3.0) mmol/L ABG Hemoglobin 7.1 L (11.7-17.4) g/dL ABG Carboxyhemoglobin 0.8 (0.5-1.5) % POC ABG HHb (Measured) 0.7 (0.0-5.0) % ABG Methemoglobin 0.8 (0.0-3.0) % Bryce Test Pos A-a O2 Difference 105.0 mm/Hg Respiratory Index 0.5 Hgb O2 Saturation 97.8 (95.0-98.0) % Vent Mode Prvc Mechanical Rate 20 FiO2 50.0 % Tidal Volume 500 PEEP 5 Sodium 154 H (132-148) mmol/L Potassium 2.9 L (3.6-5.2) mmol/L Chloride 116 H (98-107) mmol/L Carbon Dioxide 22 (22-30) mmol/L Anion Gap 19 (10-20) BUN 69 H (7-17) mg/dL Creatinine 6.0 H (0.7-1.2) mg/dL Est GFR ( Amer) 9 Est GFR (Non-Af Amer) 8 Random Glucose 179 H (65-105) mg/dL Calcium 7.0 L (8.6-10.4) mg/dl Phosphorus 4.5 (2.5-4.5) mg/dL Magnesium 2.4 H (1.6-2.3) mg/dL Total Bilirubin 1.1 (0.2-1.3) mg/dL AST 206 H D (14-36) U/L ALT 296 H D (9-52) U/L Alkaline Phosphatase 104 (38-126) U/L Total Protein 5.3 L (6.3-8.3) g/dL Albumin 3.4 L D (3.5-5.0) g/dL Globulin 1.9 L (2.2-3.9) gm/dL Albumin/Globulin Ratio 1.8 (1.0-2.1) Salmonella H Type A Salmonella H Type B Salmonella H Type D Salmonella O Type D Salmonella O Type Vi Blood Type 07/30/18 07/30/18 07/27/18 Range/Units 14:29 11:34 18:26 WBC (4.8-10.8) K/uL RBC (3.80-5.20) Mil/uL Hgb (11.0-16.0) g/dL Hct (34.0-47.0) % MCV (81.0-99.0) fL MCH (27.0-31.0) pg MCHC (33.0-37.0) g/dL RDW (11.5-14.5) % Plt Count (130-400) K/uL MPV (7.2-11.7) fL Neut % (Auto) (50.0-75.0) % Lymph % (Auto) (20.0-40.0) % Murray % (Auto) (0.0-10.0) % Eos % (Auto) (0.0-4.0) % Baso % (Auto) (0.0-2.0) % Neut # (Auto) (1.8-7.0) K/uL Lymph # (Auto) (1.0-4.3) K/uL Murray # (Auto) (0.0-0.8) K/uL Eos # (Auto) (0.0-0.7) K/uL Baso # (Auto) (0.0-0.2) K/uL Neutrophils % (Manual) (50-75) % Band Neutrophils % (0-2) % Lymphocytes % (Manual) (20-40) % Monocytes % (Manual) (0-10) % Metamyelocytes % (0-0) % Myelocytes % (0-0) % Toxic Granulation Platelet Estimate (NORMAL) Hypochromasia (manual) APTT 39 H D (21-34) SECONDS Fibrinogen 439 H (200-400) mg/dL Puncture Site pCO2 (35-45) mm/Hg pO2 (80-100) mm/Hg HCO3 (21-28) mmol/L ABG pH (7.35-7.45) ABG Total CO2 (22-28) mmol/L ABG O2 Saturation (95-98) % ABG Base Excess (-2.0-3.0) mmol/L ABG Hemoglobin (11.7-17.4) g/dL ABG Carboxyhemoglobin (0.5-1.5) % POC ABG HHb (Measured) (0.0-5.0) % ABG Methemoglobin (0.0-3.0) % Bryce Test A-a O2 Difference mm/Hg Respiratory Index Hgb O2 Saturation (95.0-98.0) % Vent Mode Mechanical Rate FiO2 % Tidal Volume PEEP Sodium (132-148) mmol/L Potassium (3.6-5.2) mmol/L Chloride (98-107) mmol/L Carbon Dioxide (22-30) mmol/L Anion Gap (10-20) BUN (7-17) mg/dL Creatinine (0.7-1.2) mg/dL Est GFR ( Amer) Est GFR (Non-Af Amer) Random Glucose (65-105) mg/dL Calcium (8.6-10.4) mg/dl Phosphorus (2.5-4.5) mg/dL Magnesium (1.6-2.3) mg/dL Total Bilirubin (0.2-1.3) mg/dL AST (14-36) U/L ALT (9-52) U/L Alkaline Phosphatase (38-126) U/L Total Protein (6.3-8.3) g/dL Albumin (3.5-5.0) g/dL Globulin (2.2-3.9) gm/dL Albumin/Globulin Ratio (1.0-2.1) Salmonella H Type A Equivocal H Salmonella H Type B Equivocal H Salmonella H Type D Equivocal H Salmonella O Type D Negative Salmonella O Type Vi Equivocal H Blood Type Laboratory Results - last 24 hr 07/27/18 07/30/18 07/30/18 18:26 11:34 14:29 WBC RBC Hgb Hct MCV MCH MCHC RDW Plt Count MPV Neut % (Auto) Lymph % (Auto) Murray % (Auto) Eos % (Auto) Baso % (Auto) Neut # (Auto) Lymph # (Auto) Murray # (Auto) Eos # (Auto) Baso # (Auto) Neutrophils % (Manual) Band Neutrophils % Lymphocytes % (Manual) Monocytes % (Manual) Metamyelocytes % Myelocytes % Toxic Granulation Platelet Estimate Hypochromasia (manual) APTT 39 H D Fibrinogen 439 H Puncture Site pCO2 pO2 HCO3 ABG pH ABG Total CO2 ABG O2 Saturation ABG Base Excess ABG Hemoglobin ABG Carboxyhemoglobin POC ABG HHb (Measured) ABG Methemoglobin Bryce Test A-a O2 Difference Respiratory Index Hgb O2 Saturation Vent Mode Mechanical Rate FiO2 Tidal Volume PEEP Sodium Potassium Chloride Carbon Dioxide Anion Gap BUN Creatinine Est GFR ( Amer) Est GFR (Non-Af Amer) Random Glucose Calcium Phosphorus Magnesium Total Bilirubin AST ALT Alkaline Phosphatase Total Protein Albumin Globulin Albumin/Globulin Ratio Salmonella H Type A Equivocal H Salmonella H Type B Equivocal H Salmonella H Type D Equivocal H Salmonella O Type D Negative Salmonella O Type Vi Equivocal H Blood Type 07/30/18 07/31/18 07/31/18 22:21 05:20 06:19 WBC RBC Hgb Hct MCV MCH MCHC RDW Plt Count MPV Neut % (Auto) Lymph % (Auto) Murray % (Auto) Eos % (Auto) Baso % (Auto) Neut # (Auto) Lymph # (Auto) Murray # (Auto) Eos # (Auto) Baso # (Auto) Neutrophils % (Manual) Band Neutrophils % Lymphocytes % (Manual) Monocytes % (Manual) Metamyelocytes % Myelocytes % Toxic Granulation Platelet Estimate Hypochromasia (manual) APTT 41 H Fibrinogen Puncture Site Rr pCO2 25 L pO2 220 H HCO3 23.9 ABG pH 7.53 H ABG Total CO2 21.7 L ABG O2 Saturation 99.3 H ABG Base Excess -1.4 ABG Hemoglobin 7.1 L ABG Carboxyhemoglobin 0.8 POC ABG HHb (Measured) 0.7 ABG Methemoglobin 0.8 Bryce Test Pos A-a O2 Difference 105.0 Respiratory Index 0.5 Hgb O2 Saturation 97.8 Vent Mode Prvc Mechanical Rate 20 FiO2 50.0 Tidal Volume 500 PEEP 5 Sodium 154 H Potassium 2.9 L Chloride 116 H Carbon Dioxide 22 Anion Gap 19 BUN 69 H Creatinine 6.0 H Est GFR ( Amer) 9 Est GFR (Non-Af Amer) 8 Random Glucose 179 H Calcium 7.0 L Phosphorus 4.5 Magnesium 2.4 H Total Bilirubin 1.1 AST 206 H D ALT 296 H D Alkaline Phosphatase 104 Total Protein 5.3 L Albumin 3.4 L D Globulin 1.9 L Albumin/Globulin Ratio 1.8 Salmonella H Type A Salmonella H Type B Salmonella H Type D Salmonella O Type D Salmonella O Type Vi Blood Type 07/31/18 07/31/18 07/31/18 06:21 06:21 09:11 WBC 21.6 H RBC 2.49 L Hgb 6.4 L* Hct 19.7 L MCV 79.1 L MCH 25.8 L MCHC 32.7 L RDW 14.4 Plt Count 87 L MPV 11.8 H Neut % (Auto) 95.2 H Lymph % (Auto) 1.9 L Murray % (Auto) 2.6 Eos % (Auto) 0.2 Baso % (Auto) 0.1 Neut # (Auto) 20.6 H Lymph # (Auto) 0.4 L Murray # (Auto) 0.6 Eos # (Auto) 0.0 Baso # (Auto) 0.0 Neutrophils % (Manual) 86 H Band Neutrophils % 8 H Lymphocytes % (Manual) 2 L Monocytes % (Manual) 2 Metamyelocytes % 1 H Myelocytes % 1 H Toxic Granulation Present Platelet Estimate Decreased L Hypochromasia (manual) Moderate APTT 49 H D Fibrinogen Puncture Site pCO2 pO2 HCO3 ABG pH ABG Total CO2 ABG O2 Saturation ABG Base Excess ABG Hemoglobin ABG Carboxyhemoglobin POC ABG HHb (Measured) ABG Methemoglobin Bryce Test A-a O2 Difference Respiratory Index Hgb O2 Saturation Vent Mode Mechanical Rate FiO2 Tidal Volume PEEP Sodium Potassium Chloride Carbon Dioxide Anion Gap BUN Creatinine Est GFR ( Amer) Est GFR (Non-Af Amer) Random Glucose Calcium Phosphorus Magnesium Total Bilirubin AST ALT Alkaline Phosphatase Total Protein Albumin Globulin Albumin/Globulin Ratio Salmonella H Type A Salmonella H Type B Salmonella H Type D Salmonella O Type D Salmonella O Type Vi Blood Type A POSITIVE Fingerstick Blood Sugar Results: 288 Review of Systems - Review of Systems All systems: reviewed and no additional remarkable complaints except Assessment/Plan - Assessment and Plan (Free Text) Assessment: Patient is a 48 year old female with past medical history of anxiety presenting to ED with shortness of breath, syncope, and chest pain, went into cardiac arrest, was intubated and found to have bilateral PE and septic shock. Extubated today. Plan: Neuro: - Alert, following commands - Head CT shows no acute intracranial abnormality, left forehead soft tissue swelling Pulm: - s/p extubation - CXR shows interval left basilar atelectasis favored over infiltrate with possible small pleural effusions, atelectasis medial right apex - maintain SPO2> 92 % - Duonebs 3 ml INH RQ6 - Nebulizer treatment CV: - maintain MAP> 65 - discontinued all pressors - D-dimer > 5250 - Chest CT shows extensive bilateral lower lobe proximal PE, smaller emboli within upper lobes and middle lobe, cardiomegaly - Venous dopplers show DVT in left common femoral vein - ECHO shows LVEF 73%, diastolic dysfunction, mild-mod dilated RV - Cardiology consulted. Appreciate recs. - Consider IVC filter when stable GI: - Abd/pelvis CT shows mild ileus, questionable enteritis, postoperative changes of stomach - Diarrhea noted. FOBT positive. C.diff, salmonella, shigella, campylobacter negative. - Procal >200 - Protonix 40 mg IV Q12 - Consider CTA of abdomen once stable for ischemic colitis - Abd U/S shows cholecystitis, hold off on cholecystostomy for now as patient is clinically improving - Tube feeds Renal: - BRIAN, Cr uptrending - oliguric - monitor I and Os - monitor and replete electrolytes Endo: - maintain euglycemia with blood sugars 140-180 - holding ISS Heme: - monitor H&H - heparin 4000 units IV given once - heparin drip low dose - Heme/onc consulted. Appreciate recs. - DIC resolved, fibrinogen level 67 -> 439 ID: - Afebrile, WBCs and bands trending down - 10/1 BCx NG after 48 hrs x2, UCx no growth - Zosyn 2.25 gm IV Q6H discontinued - Flagyl 500 mg Q8H, Cefepime 1 gm Q12H Dispo: ICU, s/p extubation FEN: tube feeding Access: central line, peripheral IVs Consults: Cardio, Neuro PPX: Protonix for GI, SCDs contraindicated d/t DVT Patient seen, reviewed, and discussed with attending, Dr. Bindu Chowdary PGY-1 - Date & Time Date: 07/31/18 Time: 09:54
[2018-07-31] MEDS: MethylPREDNISolone 40 mg Vial IVP SCH ×3 (09:59→17:53)
[2018-07-31] MEDS: Potassium Chloride 20 mEq ER Tab PO SCH (13:00)
--- NOTE | 2018-07-31 13:50 | CP.PCM.PN ---
Subjective - Date & Time of Evaluation Date of Evaluation: 07/31/18 Time of Evaluation: 09:30 - Subjective Subjective: I met with the patient's family member at bedside as well as with the patient's nephew over the phone this morning. Patient remains intubated at this time. Off of pressors and off of sedation when I saw her this morning. She was awake, interactive, she was able to write on a black board Hgb decreased to 6.4 and she is pending two units of PRBCs. Patient urine outs were 556 mL yesterday. Her creatine remains elevated. Objective - Vital Signs/Intake and Output Vital Signs (last 24 hours): Temp Pulse Resp BP Pulse Ox 98.6 F 71 30 H 124/69 100 07/31/18 13:15 07/31/18 13:15 07/31/18 13:15 07/31/18 13:15 07/31/18 08:00 Intake and Output: 07/31/18 07/31/18 06:59 18:59 Intake Total 1174.4 325 Output Total 200 Balance 974.4 325 - Medications Medications: Current Medications Albuterol/Ipratropium (Duoneb 3 Mg/0.5 Mg (3 Ml) Ud) 3 ml INH RQ6 [facility] Last Admin: 07/31/18 08:09 Dose: 3 ml Heparin Sodium/Sodium Chloride (Heparin 13225 Units/250ml 1/2 Normal Saline) 25,000 units in 250 mls @ 12.247 mls/hr IV .[id number] PRN; Protocol PRN Reason: ADJUST RATE PER PROTOCOL Last Admin: 07/30/18 23:17 Dose: 12 units/kg/hr, 8.709 mls/hr Norepinephrine Bitartrate 4 mg (/ Sodium Chloride) 250 mls @ 15 mls/hr IV .[id number] PRN; Protocol PRN Reason: TITRATE PER MD ORDER Last Titration: 07/30/18 08:30 Dose: 0 mcg/min, 0 mls/hr Phenylephrine HCl 30 mg/ (Sodium Chloride) 250 mls @ 10 mls/hr IV .Q24H PRN; Protocol PRN Reason: TITRATE PER MD ORDER Last Titration: 07/28/18 15:37 Dose: 0 mcg/min, 0 mls/hr Vasopressin 40 units/ Sodium (Chloride) 40 mls @ 1.2 mls/hr IV .Q24H [facility]ACY; Protocol Last Admin: 07/30/18 11:04 Dose: Not Given Dexmedetomidine HCl 200 mcg/ (Sodium Chloride) 50 mls @ 3.63 mls/hr IV TITR PRN; Protocol PRN Reason: Sedation Last Titration: 07/31/18 00:27 Dose: Infused Dopamine HCl/Dextrose (Dopamine 400mg/250ml D5w) 400 mg in 250 mls @ 6.875 mls/hr IV .Q24H PRN; Protocol PRN Reason: TITRATE PER MD ORDER Last Titration: 07/30/18 08:50 Dose: 0 mcg/kg/min, 0 mls/hr Potassium Chloride (Potassium Chloride 20 Meq/100 Ml) 20 meq in 100 mls @ 50 mls/hr IVPB Q2H [facility] Stop: 07/31/18 16:44 Cefepime HCl (Maxipime Iv 1 Gm Premix) 1 gm in 50 mls @ 100 mls/hr IVPB Q12H [facility]; Protocol Lorazepam (Ativan) 2 mg IVP Q4 PRN PRN Reason: Anxiety Last Admin: 07/31/18 06:24 Dose: 2 mg Methylprednisolone (Solu-Medrol) 40 mg IVP TID [facility] Last Admin: 07/31/18 09:59 Dose: 40 mg Metronidazole (Flagyl) 500 mg PO Q8 [facility]; Protocol Pantoprazole Sodium (Protonix Inj) 40 mg IVP Q12 [facility] Last Admin: 07/31/18 09:59 Dose: 40 mg Potassium Chloride (K-Dur 20 Meq Er Tab) 40 meq PO DAILY [facility]Y - Labs Labs: 07/31/18 06:21 07/31/18 06:19 PT 17.7 SECONDS (9.7-12.2) H D 07/30/18 06:11 INR 1.6 D 07/30/18 06:11 APTT 49 SECONDS (21-34) H D 07/31/18 06:21 - Constitutional Appears: Unkempt, Chronically Ill - Head Exam Additional comments: Ecyhmosis over eye lid and neck - Eye Exam Eye Exam: Periorbital swelling - ENT Exam ENT Exam: Mucous Membranes Moist - Respiratory Exam Respiratory Exam: Decreased Breath Sounds Additional comments: Mechanical intubation - Cardiovascular Exam Cardiovascular Exam: REGULAR RHYTHM - GI/Abdominal Exam GI & Abdominal Exam: Rigid, Soft, Tenderness, Normal Bowel Sounds - Neurological Exam Neurological Exam: Alert, Altered, Awake Neuro motor strength exam: Left Upper Extremity: 4, Right Upper Extremity: 4 - Psychiatric Exam Psychiatric exam: Normal Affect, Normal Mood - Skin Skin Exam: Normal Color, Warm Assessment and Plan - Assessment and Plan (Free Text) Assessment: A/P: This is a 48 year old female patient who unfortunately has bilateral large PE and currently is intubated at this time. Per family members, the patient has a past medical history of anxiety who presented with worsening shortness of breath and syncope. Acute Hypercapnic Respiratory Failure from Bilateral Pulmonary Embolism 08/01 Remains intubated and off of pressors, getting CPAP trials. Awake and alert and interactive He has been on lower dose heparin ggt, also there is 07/30: As of this morning off of pressor medications. On lower rate of heparin ggt now. The echo came back, EF is reported as 70% and the right ventricle moderate dilaitation. 07/29: Yesterday there was consideration for HD since she was so acidotic however pH later improved. Creatine is still elevated. Remains on bicarb ggt. She was again on the heparin ggt this morning but then held due to high PTTs, the PTTs have always been high so I placed ordereds to restart at much smaler heparin drip at just 6 units instead and see how the PTTs are. 07/28: IVF changed to 1/2 NS @ 200 cc /hr with 50 meq of NaHCO3, she is still acidotic on ABG despite being on 3 pressor medications as well as on mechanical ventilation. Likely combination of the bilateral PE and also the sepsis / DIC. She was on heparin ggt overnight then it was discontinued this morning. Currently not a candidate for direct thrombolytic administration due to bleeding concern. 07/27: Spoke with family member Darshan at bedside and he understands prognosis is poor. At this time the patient remains intubated with minimal reflexes illicited on exam. Intubated, s/p respiratory arrest x 2 -ABG: pH <6.80, PO2 29, PCO2 103, Lactate 17.6 CT head showed left forhead swelling CTA chest showed diffuse bilateral pulmonary emboli involving bilateral central and segmental pulmonary arteries, cardiac silhouette enlarged, there is evidence of pulmonary venous congestion compatible with CHF, left basilar atelectasis vs pulmonary infarct (official report pending) Renal failure - acute kidney injury / ATN 08/01: Outs were 550 and creatine remains high. 07/30: Urine outs were recorded as 550, creatine increased again. There was consideration for HD previously when the patient was more acidotic. Sepsis / DIC / Abdominal Pain 07/31 Abx changed to Cepime 07/30: Yesterday completed abdominal ultrasound with concerning findings for possible cholecystitis. Remains on IV abx Zosyn and Flagyl. The vancomycin is on hold due to the renal function. 07/29: IV Flagyl was added yesterday as she is having diarrhea. This being said the CDIFF was negative. She does have fever, Tmax was 100.9 There are elevated LFTs either from possible cholecytitis or from shock liver from low perfusion earlier. 07/28: Cultures still pending at this time, she remains on IV pressors and also the urine out put was only 1065 mL 07/27: Elevated WBC, bandemia, and hypothermic Antibiotics started on Zosyn and Vancomycin Also blood culture, urine culture, and IVF boluses. -CT abd/pelvis showed periportal edema and pericholecystic/peripancreatic fluid, probably related to fluid overload, exclude hepatocellular disease. Severe enteritis. Infectious and inflammatory etiologies are considered. Large amount of fecal material is seen throughout colon (official report pending) Atrial Fibrillation with RVR 07/29: As of this morning was NSR on the telemetry and HR mostly in the 70s to 90s range. On heparin ggt, however often has high PTTs 07/27: Likley secondary to the bilateral PEs, they asked IR to evaluate however she was not a candidate for direct cathter thrombolysis Initial EKG showed afib with rate of 146 bpm Patient on heparin drip Anemia: Likely from bleeding as well as IVF. Will transfuse two units of PRBCs
[2018-07-31] MEDS: Cefepime IV 1 gm in Dextrose 1 GM/50 ML BAG IVPB SCH (14:58)
[2018-07-31 16:35] LABS: CALCIUM 7.3 mg/dl (8.6-10.4)
[2018-07-31] MEDS: Dexmedetomidine Hydrochloride 200 MCG in Sodium Chloride 0.9% 48 ML IV PRN (21:25)
--- NOTE | 2018-07-31 23:18 | CP.PCM.PN ---
Subjective - Date & Time of Evaluation Date of Evaluation: 07/31/18 Time of Evaluation: 15:00 - Subjective Subjective: Patient with pmh of anxiety, possible recent UTI, admitted with respiratory arrest/bradycardia requiring ACLS protocol, found to have PE and with acute hypoxemic resp failure, septic shock and acute renal failure; Patient remains alert, wanting to be extubated; still having lot of diarrhea; Objective - Vital Signs/Intake and Output Vital Signs (last 24 hours): Temp Pulse Resp BP Pulse Ox 98.1 F 76 33 H 155/92 H 100 07/31/18 20:00 07/31/18 22:00 07/31/18 22:00 07/31/18 21:35 07/31/18 22:00 Intake and Output: 07/31/18 08/01/18 18:59 06:59 Intake Total 2244.4 45.8 Output Total 315 150 Balance 1929.4 -104.2 - Medications Medications: Current Medications Albuterol/Ipratropium (Duoneb 3 Mg/0.5 Mg (3 Ml) Ud) 3 ml INH RQ6 KACY Last Admin: 07/31/18 19:46 Dose: 3 ml Bumetanide (Bumex) 3 mg IVP Q6H [facility]ACY Last Admin: 07/31/18 19:11 Dose: 3 mg Heparin Sodium/Sodium Chloride (Heparin 25286 Units/250ml 1/2 Normal Saline) 25,000 units in 250 mls @ 12.247 mls/hr IV .[id number] PRN; Protocol PRN Reason: ADJUST RATE PER PROTOCOL Last Admin: 07/30/18 23:17 Dose: 12 units/kg/hr, 8.709 mls/hr Dexmedetomidine HCl 200 mcg/ (Sodium Chloride) 50 mls @ 3.63 mls/hr IV TITR PRN; Protocol PRN Reason: Sedation Last Titration: 07/31/18 22:32 Dose: 0.4 mcg/kg/hr, 7.26 mls/hr Cefepime HCl (Maxipime Iv 1 Gm Premix) 1 gm in 50 mls @ 100 mls/hr IVPB Q12H [facility]; Protocol Last Admin: 07/31/18 14:58 Dose: 100 mls/hr Dextrose (Dextrose 5% In Water 1000 Ml) 1,000 mls @ 100 mls/hr IV .Q10H KACY Methylprednisolone (Solu-Medrol) 40 mg IVP TID [facility] Last Admin: 07/31/18 17:53 Dose: 40 mg Metronidazole (Flagyl) 500 mg PO Q8 [facility]; Protocol Last Admin: 07/31/18 21:25 Dose: 500 mg Pantoprazole Sodium (Protonix Inj) 40 mg IVP Q12 [facility] Last Admin: 07/31/18 21:25 Dose: 40 mg Potassium Chloride (K-Dur 20 Meq Er Tab) 40 meq PO DAILY [facility] Last Admin: 07/31/18 13:00 Dose: 40 meq - Labs Labs: 07/31/18 06:21 07/31/18 15:36 PT 17.7 SECONDS (9.7-12.2) H D 07/30/18 06:11 INR 1.6 D 07/30/18 06:11 APTT 49 SECONDS (21-34) H D 07/31/18 06:21 Assessment and Plan (1) Acute renal failure Assessment & Plan: ATN in the setting of septic shock; hemodynamically much improved; still b orderline oliguric; stable electrolyte status; hypokalemia due to diarrhea; stable FIO2 requirement with plan to extubate soon (doing well on CPAP trial); serum creatinine continues to increase but still no urgent indication for initiating HD; -Giving trial of IV bumex 3 mg q6h; if still oliguric by tomorrow, will need to consider initiating HD; -Avoid nephrotoxic agents; -Keep MAP > 65 (getting prbc transfusion today); Status: Acute (2) Acute respiratory failure with hypoxemia Status: Acute (3) Hypocalcemia Status: Acute (4) Metabolic acidosis Status: Acute
--- NOTE | 2018-08-01 00:53 | PN ---
DATE: 07/31/2018 SUBJECTIVE: The patient is seen today. She was extubated and she was on a Ventimask. She had some amount of diarrhea and the accounting generalist had called me this morning, so we changed the antibiotics to Maxipime and Flagyl. She is anemic and was receiving blood. PHYSICAL EXAMINATION: VITAL SIGNS: She is afebrile. T-max is 98.1. She was receiving blood transfusion as her hemoglobins dropped. Heart rate of 68, blood pressure 157/81, respirations are 29-31. HEENT: Head is atraumatic, normocephalic. NECK: Supple. LUNGS: Decreased breath sounds. HEART: S1, S2 are regular. ABDOMEN: Soft, nontender. No guarding, no rigidity present. EXTREMITIES: Remain without edema. LABORATORY DATA: White count is 21.6, hemoglobin 6.4, hematocrit 19.7, platelet count is 87 is on the low side, neutrophils 86, bands are 8. She was extubated. Her BUN is 75, creatinine still remains high at 6.1. AST is 206, ALT is 209, so she does have a lot of electrolyte imbalance. Her liver enzymes are mostly up because of sepsis, I would think. The ultrasound did show some fluids but if there is any suspicion we should get a HIDA scan. ASSESSMENT AND PLAN: She is receiving blood. She is status post cardiopulmonary arrest with respiratory failure, pulmonary embolism with deep vein thrombosis and sepsis, disseminated intravascular coagulation and is recuperating. Since we have changed to Maxipime that may help as she was also getting thrombocytopenia and they have ordered repeat stool cultures as she had some diarrhea, I would think the diarrhea is related to her antibiotics, but there is a history of travel, so if we get anything else; however, Maxipime will cover for Salmonella if that is one of the concerns. We will follow. Smitha Slater MD
[2018-08-01] MEDS: Cefepime IV 1 gm in Dextrose 1 GM/50 ML BAG IVPB SCH ×2 (01:16→15:26)
[2018-08-01] MEDS: Dexmedetomidine Hydrochloride 200 MCG in Sodium Chloride 0.9% 48 ML IV PRN ×3 (02:32→22:55)
[2018-08-01] MEDS: Albuterol-Ipratrop 3 mg / 0.5 (3 ml) UD INH SCH ×4 (03:03→19:52)
[2018-08-01 06:27] LABS: BASO % 0.2 % (0.0-2.0); EOS % 0.1 % (0.0-4.0); LYMPH % 4.7 % (20.0-40.0); MEAN CELL VOLUME 82.6 fL (81.0-99.0); MEAN CORPUSCULAR HGB CONC 32.6 g/dL (33.0-37.0); MEAN PLATELET VOLUME 12.1 fL (7.2-11.7); MONO # 0.9 K/uL (0.0-0.8); MONO % 4.4 % (0.0-10.0); NEUT # 19.5 K/uL (1.8-7.0); NEUT % 90.6 % (50.0-75.0); NRBC % 1.5 % (0.0-2.0); PLATELET COUNT 101 K/uL (130-400); RED CELL DISTRIBUTION WIDTH 15.7 % (11.5-14.5); WHITE BLOOD COUNT 21.5 K/uL (4.8-10.8)
[2018-08-01] MEDS: Heparin25000 units/250ml 1/2NS 25,000 UNITS/250 ML BAG IV PRN (06:36)
[2018-08-01 07:18] LABS: ALB/GLOB RATIO 1.7 (1.0-2.1); ALBUMIN 3.7 g/dL (3.5-5.0); CALCIUM 7.7 mg/dl (8.6-10.4)
[2018-08-01 08:25] LABS: ANISOCYTOSIS SLIGHT; BANDS 6 % (0-2); LYMPHOCYTE 3 % (20-40); MONOCYTE 4 % (0-10); NEUTROPHIL 87 % (50-75); PLATELET ESTIMATE SLIGHTLY DECREASED (NORMAL); TOTAL CELLS COUNTED 100
[2018-08-01 08:26] LABS: BURR CELLS SLIGHT; GIANT PLATELETS PRESENT; HYPOCHROMIC SLIGHT; OVALOCYTES SLIGHT; POIKILOCYTOSIS SLIGHT; POLYCHROMIC SLIGHT; SCHISTOCYTES SLIGHT
[2018-08-01 08:27] LABS: LARGE PLATELETS PRESENT; TOXIC GRANULATION PRESENT
--- NOTE | 2018-08-01 08:40 | CP.PCM.PN ---
Subjective - Date & Time of Evaluation Date of Evaluation: 08/01/18 Time of Evaluation: 07:50 - Subjective Subjective: Genreal/Vascular Surgery Pt seen and examined. No acute events. c/o abd pain and diarrhea. Extubated yesterday and stopping sedation this AM. Still drowsy. On BIPAP. Had small BM yesterday. 2 Units PRBCs yesterday Objective - Vital Signs/Intake and Output Vital Signs (last 24 hours): Temp Pulse Resp BP Pulse Ox 98 F 62 24 162/97 H 99 08/01/18 04:00 08/01/18 08:00 08/01/18 08:00 08/01/18 07:35 08/01/18 08:00 Intake and Output: 08/01/18 08/01/18 06:59 18:59 Intake Total 550.4 Output Total 715 Balance -164.6 - Medications Medications: Current Medications Albuterol/Ipratropium (Duoneb 3 Mg/0.5 Mg (3 Ml) Ud) 3 ml INH RQ6 [facility]ACY Last Admin: 08/01/18 08:01 Dose: 3 ml Bumetanide (Bumex) 3 mg IVP Q6H [facility] Last Admin: 08/01/18 06:44 Dose: 3 mg Heparin Sodium/Sodium Chloride (Heparin 64625 Units/250ml 1/2 Normal Saline) 25,000 units in 250 mls @ 12.247 mls/hr IV .[id number] PRN; Protocol PRN Reason: ADJUST RATE PER PROTOCOL Last Admin: 08/01/18 06:36 Dose: 12 units/kg/hr, 8.709 mls/hr Cefepime HCl (Maxipime Iv 1 Gm Premix) 1 gm in 50 mls @ 100 mls/hr IVPB Q12H [facility]; Protocol Last Admin: 08/01/18 01:16 Dose: 100 mls/hr Dextrose (Dextrose 5% In Water 1000 Ml) 1,000 mls @ 100 mls/hr IV .Q10H [facility]Y Last Admin: 07/31/18 23:38 Dose: 100 mls/hr Methylprednisolone (Solu-Medrol) 40 mg IVP TID [facility] Last Admin: 07/31/18 17:53 Dose: 40 mg Metronidazole (Flagyl) 500 mg PO Q8 [facility]Y; Protocol Last Admin: 08/01/18 06:38 Dose: 500 mg Pantoprazole Sodium (Protonix Inj) 40 mg IVP Q12 [facility] Last Admin: 07/31/18 21:25 Dose: 40 mg Potassium Chloride (K-Dur 20 Meq Er Tab) 40 meq PO DAILY [facility]Y Last Admin: 07/31/18 13:00 Dose: 40 meq - Labs Labs: 08/01/18 06:21 08/01/18 06:21 PT 17.7 SECONDS (9.7-12.2) H D 07/30/18 06:11 INR 1.6 D 07/30/18 06:11 APTT 58 SECONDS (21-34) H D 08/01/18 06:21 - Constitutional Appears: Non-toxic, No Acute Distress - Head Exam Head Exam: NORMOCEPHALIC Additional comments: L periorbital ecchymosis - Eye Exam Eye Exam: EOMI. absent: Scleral icterus - Respiratory Exam Respiratory Exam: NORMAL BREATHING PATTERN (on BIPAP). absent: Accessory Muscle Use - Cardiovascular Exam Cardiovascular Exam: RRR, +S1, +S2 - GI/Abdominal Exam GI & Abdominal Exam: Distended (mild), Soft. absent: Firm, Guarding, Rigid, Tenderness (but sedated) - Extremities Exam Extremities Exam: Pedal Edema. absent: Calf Tenderness - Neurological Exam Neurological Exam: Awake (sedated) - Skin Skin Exam: Dry, Warm Assessment and Plan - Assessment and Plan (Free Text) Assessment: 48F with b/l PE, Femoral DVTs, and sepsis of unknown origin - possibly gallbl adder Plan: Possible IVC Filter Consider CTA abdomen once stable & Cr WNL Consider Cholecystostomy tube Cont Abx Will D/W Dr. Mike Chowdhury PGY4
[2018-08-01] MEDS ORDERED: Albumin Human 5% (12.5 gm/250 ml) IV ONE ×2 (09:24→11:15)
[2018-08-01] MEDS: MethylPREDNISolone 40 mg Vial IVP SCH ×3 (10:10→18:24)
[2018-08-01] MEDS: Potassium Chloride 20 mEq ER Tab PO SCH (10:25)
[2018-08-01] MEDS: metOLazone 5 MG TAB PO SCH (10:28)
[2018-08-01] MEDS ORDERED: Midazolam 2 MG/2 ML VIAL ONE (10:43)
[2018-08-01] MEDS ORDERED: Midazolam 5 MG/5 ML VIAL IVP ONE (10:45)
[2018-08-01] MEDS ORDERED: Midazolam 2 MG/2 ML VIAL IVP ONE ×3 (10:45→18:28)
--- NOTE | 2018-08-01 13:36 | RAD ---
Date of service: 08/01/2018 HISTORY: dialysis catheter placement COMPARISON: Comparison chest 08/01/2018 FINDINGS: Interval placement right IJ large-bore dialysis catheter with tip in the SVC. No change left IJ central line with tip in the SVC LUNGS: Patchy infiltrate seen in the right upper and left mid to lower lung [place]. Probable bilateral effusions left larger than right PLEURA: No significant pleural effusion identified, no pneumothorax apparent. CARDIOVASCULAR: Cardiomegaly. OSSEOUS STRUCTURES: No significant abnormalities. VISUALIZED UPPER ABDOMEN: Normal. OTHER FINDINGS: None. IMPRESSION: Interval placement right IJ central line as described Patchy infiltrate seen in the right upper and left mid to lower lung [place]. Probable bilateral effusions left larger than right
--- NOTE | 2018-08-01 13:37 | RAD ---
Date of service: 08/01/2018 HISTORY: Status post extubation. COMPARISON: Comparison made with prior study 07/31/2017 at 00:10 hours FINDINGS: In situ left IJ central line with tip in the SVC. LUNGS: Mild pulmonary venous congestive changes with patchy more discrete opacities in the left mid to lower lung field with suspected small effusion. Patchy infiltrate also present in the right upper lobe and right perihilar region. PLEURA: No significant pleural effusion identified, no pneumothorax apparent. CARDIOVASCULAR: Normal. OSSEOUS STRUCTURES: No significant abnormalities. VISUALIZED UPPER ABDOMEN: Normal. OTHER FINDINGS: None. IMPRESSION: Mild pulmonary venous congestive changes with patchy more discrete opacities in the left mid to lower lung field with suspected small effusion. Patchy infiltrate also present in the right upper lobe and right perihilar region.
--- NOTE | 2018-08-01 14:17 | CP.PCM.PN ---
Subjective - Date & Time of Evaluation Date of Evaluation: 08/01/18 Time of Evaluation: 14:00 - Subjective Subjective: Patient was seen and examined by me. Family member present at bedside There are plans for HD later today, patient signed the consent with the help of kindergarten paraprofessional. She has been extubated and now on Bipap however CXRAY showing a lot of congestion. The creatine is currently remains high. The urine output recorded this morning was 1030 ml Objective - Vital Signs/Intake and Output Vital Signs (last 24 hours): Temp Pulse Resp BP Pulse Ox 98.2 F 103 H 34 H 166/91 H 76 L 08/01/18 08:00 08/01/18 13:35 08/01/18 13:35 08/01/18 13:35 08/01/18 13:35 Intake and Output: 08/01/18 08/01/18 06:59 18:59 Intake Total 550.4 93.5 Output Total 715 500 Balance -164.6 -406.5 - Medications Medications: Current Medications Albuterol/Ipratropium (Duoneb 3 Mg/0.5 Mg (3 Ml) Ud) 3 ml INH RQ6 [facility] Last Admin: 08/01/18 13:51 Dose: 3 ml Bumetanide (Bumex) 3 mg IVP Q6H [facility] Last Admin: 08/01/18 06:44 Dose: 3 mg Heparin Sodium/Sodium Chloride (Heparin 14977 Units/250ml 1/2 Normal Saline) 25,000 units in 250 mls @ 12.247 mls/hr IV .[id number] PRN; Protocol PRN Reason: ADJUST RATE PER PROTOCOL Last Admin: 08/01/18 06:36 Dose: 12 units/kg/hr, 8.709 mls/hr Cefepime HCl (Maxipime Iv 1 Gm Premix) 1 gm in 50 mls @ 100 mls/hr IVPB Q12H [facility]; Protocol Last Admin: 08/01/18 01:16 Dose: 100 mls/hr Dextrose (Dextrose 5% In Water 1000 Ml) 1,000 mls @ 100 mls/hr IV .Q10H [facility] Last Admin: 07/31/18 23:38 Dose: 100 mls/hr Methylprednisolone (Solu-Medrol) 40 mg IVP TID [facility] Last Admin: 10/05/18 17:53 Dose: 40 mg Metolazone (Zaroxolyn) 5 mg PO DAILY [facility] Metronidazole (Flagyl) 500 mg PO Q8 [facility]; Protocol Last Admin: 08/01/18 06:38 Dose: 500 mg Pantoprazole Sodium (Protonix Inj) 40 mg IVP Q12 [facility] Last Admin: 07/31/18 21:25 Dose: 40 mg Potassium Chloride (K-Dur 20 Meq Er Tab) 40 meq PO DAILY [facility] Last Admin: 07/31/18 13:00 Dose: 40 meq - Labs Labs: 08/01/18 06:21 08/01/18 06:21 PT 17.7 SECONDS (9.7-12.2) H D 07/30/18 06:11 INR 1.6 D 07/30/18 06:11 APTT 58 SECONDS (21-34) H D 08/01/18 06:21 - Constitutional Appears: Chronically Ill - Head Exam Head Exam: NORMAL INSPECTION, NORMOCEPHALIC Additional comments: Echymosis, edema, now has dialysis cathter. - Neck Exam Additional comments: Now has diaylsis cathter - Cardiovascular Exam Cardiovascular Exam: REGULAR RHYTHM - GI/Abdominal Exam GI & Abdominal Exam: Distended, Normal Bowel Sounds. absent: Firm, Guarding, Rigid - Extremities Exam Extremities Exam: Pedal Edema Additional comments: There is a lot of edema on lower extremities. - Neurological Exam Neurological Exam: Alert, Awake, CN II-XII Intact Neuro motor strength exam: Left Upper Extremity: 4, Right Upper Extremity: 4 - Psychiatric Exam Psychiatric exam: Flat Affect - Skin Skin Exam: Dry, Warm Assessment and Plan - Assessment and Plan (Free Text) Assessment: A/P: This is a 48 year old female patient who unfortunately has bilateral large PE and currently is intubated at this time. Per family members, the patient has a past medical history of anxiety who presented with worsening shortness of br eath and syncope. Acute Hypercapnic Respiratory Failure from Bilateral Pulmonary Embolism 08/01 Now on Bipap. Remains off of pressors, Awake and alert and interactive. She was able to sign for HD today He has been on lower dose heparin ggt, hopefuuly breathing will continue to improve with HD. 07/30: As of this morning off of pressor medications. On lower rate of heparin ggt now. The echo came back, EF is reported as 70% and the right ventricle moderate dilaitation. 07/29: Yesterday there was consideration for HD since she was so acidotic however pH later improved. Creatine is still elevated. Remains on bicarb ggt. She was again on the heparin ggt this morning but then held due to high PTTs, the PTTs have always been high so I placed ordereds to restart at much smaler heparin drip at just 6 units instead and see how the PTTs are. 07/28: IVF changed to 1/2 NS @ 200 cc /hr with 50 meq of NaHCO3, she is still acidotic on ABG despite being on 3 pressor medications as well as on mechanical ventilation. Likely combination of the bilateral PE and also the sepsis / DIC. She was on heparin ggt overnight then it was discontinued this morning. Currently not a candidate for direct thrombolytic administration due to bleeding concern. 07/27: Spoke with family member Darshan at bedside and he understands prognosis is poor. At this time the patient remains intubated with minimal reflexes illicited on exam. Intubated, s/p respiratory arrest x 2 -ABG: pH <6.80, PO2 29, PCO2 103, Lactate 17.6 CT head showed left forhead swelling CTA chest showed diffuse bilateral pulmonary emboli involving bilateral central and segmental pulmonary arteries, cardiac silhouette enlarged, there is evidence of pulmonary venous congestion compatible with CHF, left basilar atelectasis vs pulmonary infarct (official report pending) Renal failure - acute kidney injury / ATN 08/01: Outs were [id number] and creatine remains > 6 07/30: Urine outs were recorded as 550, creatine increased again. There was consideration for HD previously when the patient was more acidotic. Sepsis / DIC / Abdominal Pain 08/01: Abx Cefepime and Flagyl. There is still a high creatine 07/31 Abx changed to Cepime 07/30: Yesterday completed abdominal ultrasound with concerning findings for possible cholecystitis. Remains on IV abx Zosyn and Flagyl. The vancomycin is on hold due to the renal function. 07/29: IV Flagyl was added yesterday as she is having diarrhea. This being said the CDIFF was negative. She does have fever, Tmax was 100.9 There are elevated LFTs either from possible cholecytitis or from shock liver from low perfusion earlier. 07/28: Cultures still pending at this time, she remains on IV pressors and also the urine out put was only 1065 mL 10/: Elevated WBC, bandemia, and hypothermic Antibiotics started on Zosyn and Vancomycin Also blood culture, urine culture, and IVF boluses. -CT abd/pelvis showed periportal edema and pericholecystic/peripancreatic fluid, probably related to fluid overload, exclude hepatocellular disease. Severe enteritis. Infectious and inflammatory etiologies are considered. Large amount of fecal material is seen throughout colon (official report pending) Atrial Fibrillation with RVR - now NSR 08/01: NSR in the 90s and 100s. Hopefully with HD to remove excess fluid and with heparin ggt she will remain in NSR /: As of this morning was NSR on the telemetry and HR mostly in the 70s to 90s range. On heparin ggt, however often has high PTTs 07/27: [place]and[place] secondary to the bilateral PEs, they asked IR to evaluate however she was not a candidate for direct cathter thrombolysis Initial EKG showed afib with rate of 146 bpm Patient on heparin drip
[2018-08-01 15:32] LABS: HEPATITIS B SURFACE AG Negative (NEGATIVE)
[2018-08-01 15:37] LABS: HEPATITIS B CORE AB NEGATIVE (NEGATIVE)
[2018-08-01 15:49] LABS: HEPATITIS C ANTIBODY NEGATIVE (NEGATIVE)
--- NOTE | 2018-08-01 16:18 | CP.PCM.PN ---
Subjective - Date & Time of Evaluation Date of Evaluation: 08/01/18 Time of Evaluation: 14:20 - Subjective Subjective: dictated Objective - Vital Signs/Intake and Output Vital Signs (last 24 hours): Temp Pulse Resp BP Pulse Ox 98.2 F 72 34 H 118/78 100 08/01/18 08:00 08/01/18 16:15 08/01/18 13:35 08/01/18 16:15 08/01/18 14:45 Intake and Output: 08/01/18 08/01/18 06:59 18:59 Intake Total 550.4 93.5 Output Total 715 500 Balance -164.6 -406.5 - Medications Medications: Current Medications Albuterol/Ipratropium (Duoneb 3 Mg/0.5 Mg (3 Ml) Ud) 3 ml INH RQ6 [facility] Last Admin: 08/01/18 13:51 Dose: 3 ml Bumetanide (Bumex) 3 mg IVP Q6H [facility] Last Admin: 08/01/18 06:44 Dose: 3 mg Heparin Sodium/Sodium Chloride (Heparin 96190 Units/250ml 1/2 Normal Saline) 25,000 units in 250 mls @ 12.247 mls/hr IV .[id number] PRN; Protocol PRN Reason: ADJUST RATE PER PROTOCOL Last Admin: 08/01/18 06:36 Dose: 12 units/kg/hr, 8.709 mls/hr Cefepime HCl (Maxipime Iv 1 Gm Premix) 1 gm in 50 mls @ 100 mls/hr IVPB Q12H [facility]; Protocol Last Admin: 08/01/18 01:16 Dose: 100 mls/hr Dextrose (Dextrose 5% In Water 1000 Ml) 1,000 mls @ 100 mls/hr IV .Q10H [facility] Last Admin: 07/31/18 23:38 Dose: 100 mls/hr Methylprednisolone (Solu-Medrol) 40 mg IVP TID [facility] Last Admin: 07/31/18 17:53 Dose: 40 mg Metolazone (Zaroxolyn) 5 mg PO DAILY [facility] Metronidazole (Flagyl) 500 mg PO Q8 [facility]; Protocol Last Admin: 08/01/18 06:38 Dose: 500 mg Pantoprazole Sodium (Protonix Susp) 40 mg PO Q12 [facility] Potassium Chloride (K-Dur 20 Meq Er Tab) 40 meq PO DAILY [facility] Last Admin: 07/31/18 13:00 Dose: 40 meq - Labs Labs: 08/01/18 06:21 08/01/18 06:21 PT 17.7 SECONDS (9.7-12.2) H D 07/30/18 06:11 INR 1.6 D 07/30/18 06:11 APTT 58 SECONDS (21-34) H D 08/01/18 06:21
--- NOTE | 2018-08-01 16:26 | CP.CCUPN ---
<Corrie Chowdary L - Last Filed: 08/01/18 16:48> CCU Subjective - Physician Review Subjective (Free Text): Resident Critical Care Progress Note Patient examined at bedside. Patient is s/p extubation and currently saturating well on bipap. States she has discomfort in her throat. s/p dialysis catheter placement in right IJ and currently receiving HD. Critical Care Time Spent (in minutes): 35 CCU Objective - Vital Signs / Intake & Output Vital Signs (Last 4 hours): Vital Signs Pulse Pulse Resp BP BP Pulse Ox 08/01/18 16:22 97 H 08/01/18 16:15 72 118/78 08/01/18 16:00 76 116/81 08/01/18 15:45 83 131/82 08/01/18 15:30 78 122/86 08/01/18 15:15 87 132/87 08/01/18 15:00 84 129/90 08/01/18 14:45 91 H 160/100 H 100 08/01/18 13:50 97 H 08/01/18 13:35 103 H 34 H 166/91 H 76 L 08/01/18 13:30 99 H 30 H 75 L 08/01/18 13:00 89 34 H 87 L 08/01/18 12:36 81 14 161/96 H 98 08/01/18 12:30 73 28 H 99 Intake and Output (Last 8hrs): Intake & Output 08/01/18 08/01/18 08/01/18 06:59 14:59 22:59 Intake Total 504.6 93.5 Output Total 565 500 Balance -60.4 -406.5 Weight 190 lb Intake: IV 346 Intake, IV Amount 158.6 43.5 Left Distal Port Internal 69.6 43.5 Jugular Left Medial Port Internal 89.0 0 Jugular Oral 50 Output: Urine 565 500 Urethral (Becerril) 565 500 Other: # Bowel Movements 1 - Physical Exam Head: Positive for: Normocephalic, Ecchymosis Pupils: Positive for: PERRL Extroacular Muscles: Positive for: EOMI Conjunctiva: Positive for: Normal Mouth: Positive for: Dry Neck: Positive for: Normal Range of Motion, Trachea Midline Respiratory/Chest: Positive for: Good Air Exchange, Decreased Breath Sounds Cardiovascular: Positive for: Regular Rate and Rhythm, Normal S1, S2 Abdomen: Positive for: Tenderness (mild tenderness in right upper quadrant ) Upper Extremity: Positive for: Other (ecchymosis surrounding IV sites ). Negative for: Cyanosis Lower Extremity: Positive for: Edema. Negative for: CALF TENDERNESS, Temperature Abnormalties Neurological: Positive for: GCS=15, CN II-XII Intact Skin: Positive for: Warm, Dry, Normal Color Psychiatric: Positive for: Alert, Oriented x 3, Normal Insight, Anxious - Medications Active Medications: Active Medications Generic Name Dose Route Start Last Admin Trade Name Freq PRN Reason Stop Dose Admin Albuterol/Ipratropium 3 ml 07/31/18 20:00 08/01/18 13:51 Duoneb 3 Mg/0.5 Mg (3 Ml) Ud INH 3 ml RQ6 KACY Administration Bumetanide 3 mg 07/31/18 19:00 08/01/18 06:44 Bumex IVP 3 mg Q6H KACY Administration Heparin Sodium/Sodium Chloride 25,000 units in 250 mls @ 12.247 mls/hr 07/27/18 07:09 08/01/18 06:36 Heparin 66027 Units/250ml 1/2 Normal Saline IV 12 units/kg/hr .[id number] PRN 8.709 mls/hr ADJUST RATE PER PROTOCOL Administration Protocol 16.875 UNITS/KG/HR Cefepime HCl 1 gm in 50 mls @ 100 mls/hr 07/31/18 14:00 08/01/18 01:16 Maxipime Iv 1 Gm Premix IVPB 100 mls/hr Q12H KACY Administration Protocol Dextrose 1,000 mls @ 100 mls/hr 07/31/18 23:15 07/31/18 23:38 Dextrose 5% In Water 1000 Ml IV 100 mls/hr .Q10H KACY Administration Methylprednisolone 40 mg 07/27/18 10:00 07/31/18 17:53 Solu-Medrol IVP 40 mg TID KACY Administration Metolazone 5 mg 08/01/18 10:00 Zaroxolyn PO DAILY KACY Metronidazole 500 mg 07/31/18 14:00 08/01/18 06:38 Flagyl PO 500 mg Q8 KACY Administration Protocol Pantoprazole Sodium 40 mg 08/01/18 22:00 Protonix Susp PO Q12 KACY Potassium Chloride 40 meq 07/31/18 12:45 07/31/18 13:00 K-Dur 20 Meq Er Tab PO 40 meq DAILY KACY Administration - Patient Studies Lab Studies: Microbiology Studies 07/27/18 10:29 Blood Culture - Final Blood-Venous NO GROWTH AFTER 5 DAYS Gram Stain - Final TEST NOT PERFORMED 07/27/18 10:04 Blood Culture - Final Blood-Venous NO GROWTH AFTER 5 DAYS Gram Stain - Final TEST NOT PERFORMED 07/29/18 00:28 Gram Stain - Final Sputum Sputum Culture - Final Yeast Species Lab Studies 08/01/18 08/01/18 08/01/18 Range/Units 11:37 11:37 06:21 WBC (4.8-10.8) K/uL RBC (3.80-5.20) Mil/uL Hgb (11.0-16.0) g/dL Hct (34.0-47.0) % MCV (81.0-99.0) fL MCH (27.0-31.0) pg MCHC (33.0-37.0) g/dL RDW (11.5-14.5) % Plt Count (130-400) K/uL MPV (7.2-11.7) fL Neut % (Auto) (50.0-75.0) % Lymph % (Auto) (20.0-40.0) % [place] % (Auto) (0.0-10.0) % Eos % (Auto) (0.0-4.0) % Baso % (Auto) (0.0-2.0) % Neut # (Auto) (1.8-7.0) K/uL Lymph # (Auto) (1.0-4.3) K/uL [place] # (Auto) (0.0-0.8) K/uL Eos # (Auto) (0.0-0.7) K/uL Baso # (Auto) (0.0-0.2) K/uL Neutrophils % (Manual) (50-75) % Band Neutrophils % (0-2) % Lymphocytes % (Manual) (20-40) % Monocytes % (Manual) (0-10) % Toxic Granulation Platelet Estimate (NORMAL) Large Platelets Giant Platelets Polychromasia Hypochromasia (manual) Poikilocytosis (manual Anisocytosis (manual) Macrocytosis (manual) Ovalocytes [place] Cells Schistocytes APTT 58 H D (21-34) SECONDS Sodium (132-148) mmol/L Potassium (3.6-5.2) mmol/L Chloride (98-107) mmol/L Carbon Dioxide (22-30) mmol/L Anion Gap (10-20) BUN (7-17) mg/dL Creatinine (0.7-1.2) mg/dL Est GFR ( Amer) Est GFR (Non-Af Amer) Random Glucose (65-105) mg/dL Calcium (8.6-10.4) mg/dl Phosphorus (2.5-4.5) mg/dL Magnesium (1.6-2.3) mg/dL Total Bilirubin (0.2-1.3) mg/dL AST (14-36) U/L ALT (9-52) U/L Alkaline Phosphatase (38-126) U/L Total Protein (6.3-8.3) g/dL Albumin (3.5-5.0) g/dL Globulin (2.2-3.9) gm/dL Albumin/Globulin Ratio (1.0-2.1) Hep Bs Antigen Negative (NEGATIVE) Hep Bs Antibody Positive (NEGATIVE) Hep B Core IgM Ab Negative (NEGATIVE) Hepatitis C Antibody Negative (NEGATIVE) 08/01/18 08/01/18 07/31/18 Range/Units 06:21 06:21 15:36 WBC 21.5 H (4.8-10.8) K/uL RBC 3.70 L (3.80-5.20) Mil/uL Hgb 10.0 L D (11.0-16.0) g/dL Hct 30.6 L (34.0-47.0) % MCV 82.6 D (81.0-99.0) fL MCH 27.0 (27.0-31.0) pg MCHC 32.6 L (33.0-37.0) g/dL RDW 15.7 H (11.5-14.5) % Plt Count 101 L (130-400) K/uL MPV 12.1 H (7.2-11.7) fL Neut % (Auto) 90.6 H (50.0-75.0) % Lymph % (Auto) 4.7 L (20.0-40.0) % [place] % (Auto) 4.4 (0.0-10.0) % Eos % (Auto) 0.1 (0.0-4.0) % Baso % (Auto) 0.2 (0.0-2.0) % Neut # (Auto) 19.5 H (1.8-7.0) K/uL Lymph # (Auto) 1.0 (1.0-4.3) K/uL [place] # (Auto) 0.9 H (0.0-0.8) K/uL Eos # (Auto) 0.0 (0.0-0.7) K/uL Baso # (Auto) 0.0 (0.0-0.2) K/uL Neutrophils % (Manual) 87 H (50-75) % Band Neutrophils % 6 H (0-2) % Lymphocytes % (Manual) 3 L (20-40) % Monocytes % (Manual) 4 (0-10) % Toxic Granulation Present Platelet Estimate Slightly decreased L (NORMAL) Large Platelets Present Giant Platelets Present Polychromasia Slight Hypochromasia (manual) Slight Poikilocytosis (manual Slight Anisocytosis (manual) Slight Macrocytosis (manual) Slight Ovalocytes Slight [place] Cells Slight Schistocytes Slight APTT (21-34) SECONDS Sodium 153 H 155 H (132-148) mmol/L Potassium 3.9 4.5 (3.6-5.2) mmol/L Chloride 115 H 115 H (98-107) mmol/L Carbon Dioxide 19 L 22 (22-30) mmol/L Anion Gap 24 H 22 H (10-20) BUN 89 H 75 H (7-17) mg/dL Creatinine 6.4 H 6.1 H (0.7-1.2) mg/dL Est GFR ( Amer) 8 9 Est GFR (Non-Af Amer) 7 7 Random Glucose 224 H 165 H (65-105) mg/dL Calcium 7.7 L 7.3 L (8.6-10.4) mg/dl Phosphorus 5.7 H (2.5-4.5) mg/dL Magnesium 2.5 H (1.6-2.3) mg/dL Total Bilirubin 1.3 (0.2-1.3) mg/dL AST 137 H D (14-36) U/L ALT 242 H (9-52) U/L Alkaline Phosphatase 106 (38-126) U/L Total Protein 5.8 L (6.3-8.3) g/dL Albumin 3.7 (3.5-5.0) g/dL Globulin 2.2 (2.2-3.9) gm/dL Albumin/Globulin Ratio 1.7 (1.0-2.1) Hep Bs Antigen (NEGATIVE) Hep Bs Antibody (NEGATIVE) Hep B Core IgM Ab (NEGATIVE) Hepatitis C Antibody (NEGATIVE) Laboratory Results - last 24 hr 07/31/18 08/01/18 08/01/18 15:36 06:21 06:21 WBC 21.5 H RBC 3.70 L Hgb 10.0 L D Hct 30.6 L MCV 82.6 D MCH 27.0 MCHC 32.6 L RDW 15.7 H Plt Count 101 L MPV 12.1 H Neut % (Auto) 90.6 H Lymph % (Auto) 4.7 L [place] % (Auto) 4.4 Eos % (Auto) 0.1 Baso % (Auto) 0.2 Neut # (Auto) 19.5 H Lymph # (Auto) 1.0 [place] # (Auto) 0.9 H Eos # (Auto) 0.0 Baso # (Auto) 0.0 Neutrophils % (Manual) 87 H Band Neutrophils % 6 H Lymphocytes % (Manual) 3 L Monocytes % (Manual) 4 Toxic Granulation Present Platelet Estimate Slightly decreased L Large Platelets Present Giant Platelets Present Polychromasia Slight Hypochromasia (manual) Slight Poikilocytosis (manual Slight Anisocytosis (manual) Slight Macrocytosis (manual) Slight Ovalocytes Slight [place] Cells Slight Schistocytes Slight APTT Sodium 155 H 153 H Potassium 4.5 3.9 Chloride 115 H 115 H Carbon Dioxide 22 19 L Anion Gap 22 H 24 H BUN 75 H 89 H Creatinine 6.1 H 6.4 H Est GFR ( Amer) 9 8 Est GFR (Non-Af Amer) 7 7 Random Glucose 165 H 224 H Calcium 7.3 L 7.7 L Phosphorus 5.7 H Magnesium 2.5 H Total Bilirubin 1.3 AST 137 H D ALT 242 H Alkaline Phosphatase 106 Total Protein 5.8 L Albumin 3.7 Globulin 2.2 Albumin/Globulin Ratio 1.7 Hep Bs Antigen Hep Bs Antibody Hep B Core IgM Ab Hepatitis C Antibody 1008/01/18 08/01/18 06:21 11:37 11:37 WBC RBC Hgb Hct MCV MCH MCHC RDW Plt Count MPV Neut % (Auto) Lymph % (Auto) [place] % (Auto) Eos % (Auto) Baso % (Auto) Neut # (Auto) Lymph # (Auto) [place] # (Auto) Eos # (Auto) Baso # (Auto) Neutrophils % (Manual) Band Neutrophils % Lymphocytes % (Manual) Monocytes % (Manual) Toxic Granulation Platelet Estimate Large Platelets Giant Platelets Polychromasia Hypochromasia (manual) Poikilocytosis (manual Anisocytosis (manual) Macrocytosis (manual) Ovalocytes [place] Cells Schistocytes APTT 58 H D Sodium Potassium Chloride Carbon Dioxide Anion Gap BUN Creatinine Est GFR ( Amer) Est GFR (Non-Af Amer) Random Glucose Calcium Phosphorus Magnesium Total Bilirubin AST ALT Alkaline Phosphatase Total Protein Albumin Globulin Albumin/Globulin Ratio Hep Bs Antigen Negative Hep Bs Antibody Positive Hep B Core IgM Ab Negative Hepatitis C Antibody Negative Fingerstick Blood Sugar Results: 288 Review of Systems - Review of Systems All systems: reviewed and no additional remarkable complaints except (as stated in HPI) Assessment/Plan - Assessment and Plan (Free Text) Assessment: Patient is a 48 year old female with past medical history of anxiety presenting to ED with shortness of breath, syncope, and chest pain, went into cardiac arrest, was intubated and found to have bilateral PE and septic shock. Extubated 08/01. Plan: Neuro: - Alert, following commands - Head CT shows no acute intracranial abnormality, left forehead soft tissue swelling Pulm: - s/p extubation - CXR this AM shows mild pulmonary venous congestive changes with patchy more discrete opacities in left mid to lower lung field with suspected small effusion, patchy infiltrates in RUL and right perihilar region - maintain SPO2> 92 % - Duonebs 3 ml INH RQ6 - Nebulizer treatment CV: - maintain MAP> 65 - discontinued all pressors - D-dimer > 5250 - Chest CT shows extensive bilateral lower lobe proximal PE, smaller emboli within upper lobes and middle lobe, cardiomegaly - Venous dopplers show DVT in left common femoral vein - ECHO shows LVEF 73%, diastolic dysfunction, mild-mod dilated RV - Cardiology consulted. Appreciate recs. - Consider IVC filter when stable GI: - Abd/pelvis CT shows mild ileus, questionable enteritis, postoperative changes of stomach - Diarrhea noted. FOBT positive. C.diff, salmonella, shigella, campylobacter negative. - Procal >200 - Protonix 40 mg IV Q12 - Consider CTA of abdomen once stable for ischemic colitis - Abd U/S shows cholecystitis, hold off on cholecystostomy for now as patient is clinically improving - Transaminitis resolving - Tube feeds Renal: - BRIAN, Cr uptrending - oliguric - Bumex 3 mg IV Q6H - monitor I and Os - monitor and replete electrolytes - dialysis catheter placed today, now receiving hemodialysis Endo: - maintain euglycemia with blood sugars 140-180 - holding ISS Heme: - monitor H&H - heparin 4000 units IV given once - heparin drip low dose - Heme/onc consulted. Appreciate recs. - DIC resolved, fibrinogen level 67 -> 439 ID: - Afebrile, WBCs and bands trending down - 10/1 BCx NG after 48 hrs x2, UCx no growth - Zosyn 2.25 gm IV Q6H discontinued - Flagyl 500 mg Q8H, Cefepime 1 gm Q12H Dispo: ICU, s/p extubation Access: central line, peripheral IVs, dialysis cath Consults: Cardio, Neuro PPX: Protonix for GI, SCDs contraindicated d/t DVT Patient seen, reviewed, and discussed with attending, Dr. Bindu Chowdary PGY-1 - Date & Time Date: 08/01/18 Time: 08:00 <Aftab Ruano - Last Filed: 08/01/18 17:04> CCU Objective - Vital Signs / Intake & Output Vital Signs (Last 4 hours): Vital Signs Pulse Pulse Resp BP BP Pulse Ox 08/01/18 16:55 73 34 H 128/81 100 08/01/18 16:45 69 32 H 121/80 100 08/01/18 16:30 72 72 33 H 121/79 121/79 100 08/01/18 16:22 97 H 08/01/18 16:15 73 72 31 H 118/78 118/78 100 08/01/18 16:00 75 76 30 H 116/81 116/81 100 08/01/18 15:45 84 83 32 H 131/82 131/82 100 08/01/18 15:30 80 78 26 H 122/86 122/86 100 08/01/18 15:15 88 87 41 H 132/87 132/87 100 08/01/18 15:00 85 84 22 129/90 129/90 08/01/18 14:45 91 H 160/100 H 100 08/01/18 14:35 98 H 30 H 160/100 H 90 L 08/01/18 14:30 97 H 33 H 92 L 08/01/18 14:00 90 33 H 98 08/01/18 13:50 97 H 08/01/18 13:35 103 H 34 H 166/91 H 76 L 08/01/18 13:30 99 H 30 H 75 L Intake and Output (Last 8hrs): Intake & Output 08/01/18 08/01/18 08/01/18 06:59 14:59 22:59 Intake Total 504.6 110.9 17.4 Output Total 565 285 80 Balance -60.4 -174.1 -62.6 Weight 190 lb Intake: IV 346 Intake, IV Amount 158.6 60.9 17.4 Left Distal Port Internal 69.6 60.9 17.4 Jugular Left Medial Port Internal 89.0 0 Jugular Oral 50 Output: Urine 565 285 80 Urethral (Becerril) 565 285 80 Other: # Bowel Movements 1 - Medications Active Medications: Active Medications Generic Name Dose Route Start Last Admin Trade Name Freq PRN Reason Stop Dose Admin Albuterol/Ipratropium 3 ml 07/31/18 20:00 08/01/18 13:51 Duoneb 3 Mg/0.5 Mg (3 Ml) Ud INH 3 ml RQ6 KACY Administration Bumetanide 3 mg 07/31/18 19:00 08/01/18 06:44 Bumex IVP 3 mg Q6H KACY Administration Heparin Sodium/Sodium Chloride 25,000 units in 250 mls @ 12.247 mls/hr 07/27/18 07:09 08/01/18 06:36 Heparin 15813 Units/250ml 1/2 Normal Saline IV 12 units/kg/hr .[id number] PRN 8.709 mls/hr ADJUST RATE PER PROTOCOL Administration Protocol 16.875 UNITS/KG/HR Cefepime HCl 1 gm in 50 mls @ 100 mls/hr 07/31/18 14:00 08/01/18 01:16 Maxipime Iv 1 Gm Premix IVPB 100 mls/hr Q12H KACY Administration Protocol Dextrose 1,000 mls @ 100 mls/hr 07/31/18 23:15 07/31/18 23:38 Dextrose 5% In Water 1000 Ml IV 100 mls/hr .Q10H KACY Administration Methylprednisolone 40 mg 07/27/18 10:00 07/31/18 17:53 Solu-Medrol IVP 40 mg TID KACY Administration Metolazone 5 mg 08/01/18 10:00 Zaroxolyn PO DAILY KACY Metronidazole 500 mg 07/31/18 14:00 08/01/18 06:38 Flagyl PO 500 mg Q8 KACY Administration Protocol Pantoprazole Sodium 40 mg 08/01/18 22:00 Protonix Susp PO Q12 KACY Potassium Chloride 40 meq 07/31/18 12:45 07/31/18 13:00 K-Dur 20 Meq Er Tab PO 40 meq DAILY KACY Administration - Patient Studies Lab Studies: Microbiology Studies 07/27/18 10:29 Blood Culture - Final Blood-Venous NO GROWTH AFTER 5 DAYS Gram Stain - Final TEST NOT PERFORMED 07/27/18 10:04 Blood Culture - Final Blood-Venous NO GROWTH AFTER 5 DAYS Gram Stain - Final TEST NOT PERFORMED 07/29/18 00:28 Gram Stain - Final Sputum Sputum Culture - Final Yeast Species Lab Studies 08/01/18 08/01/18 08/01/18 Range/Units 11:37 11:37 06:21 WBC (4.8-10.8) K/uL RBC (3.80-5.20) Mil/uL Hgb (11.0-16.0) g/dL Hct (34.0-47.0) % MCV (81.0-99.0) fL MCH (27.0-31.0) pg MCHC (33.0-37.0) g/dL RDW (11.5-14.5) % Plt Count (130-400) K/uL MPV (7.2-11.7) fL Neut % (Auto) (50.0-75.0) % Lymph % (Auto) (20.0-40.0) % [place] % (Auto) (0.0-10.0) % Eos % (Auto) (0.0-4.0) % Baso % (Auto) (0.0-2.0) % Neut # (Auto) (1.8-7.0) K/uL Lymph # (Auto) (1.0-4.3) K/uL [place] # (Auto) (0.0-0.8) K/uL Eos # (Auto) (0.0-0.7) K/uL Baso # (Auto) (0.0-0.2) K/uL Neutrophils % (Manual) (50-75) % Band Neutrophils % (0-2) % Lymphocytes % (Manual) (20-40) % Monocytes % (Manual) (0-10) % Toxic Granulation Platelet Estimate (NORMAL) Large Platelets Giant Platelets Polychromasia Hypochromasia (manual) Poikilocytosis (manual Anisocytosis (manual) Macrocytosis (manual) Ovalocytes [place] Cells Schistocytes APTT 58 H D (21-34) SECONDS Sodium (132-148) mmol/L Potassium (3.6-5.2) mmol/L Chloride (98-107) mmol/L Carbon Dioxide (22-30) mmol/L Anion Gap (10-20) BUN (7-17) mg/dL Creatinine (0.7-1.2) mg/dL Est GFR ( Amer) Est GFR (Non-Af Amer) Random Glucose (65-105) mg/dL Calcium (8.6-10.4) mg/dl Phosphorus (2.5-4.5) mg/dL Magnesium (1.6-2.3) mg/dL Total Bilirubin (0.2-1.3) mg/dL AST (14-36) U/L ALT (9-52) U/L Alkaline Phosphatase (38-126) U/L Total Protein (6.3-8.3) g/dL Albumin (3.5-5.0) g/dL Globulin (2.2-3.9) gm/dL Albumin/Globulin Ratio (1.0-2.1) Hep Bs Antigen Negative (NEGATIVE) Hep Bs Antibody Positive (NEGATIVE) Hep B Core IgM Ab Negative (NEGATIVE) Hepatitis C Antibody Negative (NEGATIVE) 08/01/18 08/01/18 Range/Units 06:21 06:21 WBC 21.5 H (4.8-10.8) K/uL RBC 3.70 L (3.80-5.20) Mil/uL Hgb 10.0 L D (11.0-16.0) g/dL Hct 30.6 L (34.0-47.0) % MCV 82.6 D (81.0-99.0) fL MCH 27.0 (27.0-31.0) pg MCHC 32.6 L (33.0-37.0) g/dL RDW 15.7 H (11.5-14.5) % Plt Count 101 L (130-400) K/uL MPV 12.1 H (7.2-11.7) fL Neut % (Auto) 90.6 H (50.0-75.0) % Lymph % (Auto) 4.7 L (20.0-40.0) % [place] % (Auto) 4.4 (0.0-10.0) % Eos % (Auto) 0.1 (0.0-4.0) % Baso % (Auto) 0.2 (0.0-2.0) % Neut # (Auto) 19.5 H (1.8-7.0) K/uL Lymph # (Auto) 1.0 (1.0-4.3) K/uL [place] # (Auto) 0.9 H (0.0-0.8) K/uL Eos # (Auto) 0.0 (0.0-0.7) K/uL Baso # (Auto) 0.0 (0.0-0.2) K/uL Neutrophils % (Manual) 87 H (50-75) % Band Neutrophils % 6 H (0-2) % Lymphocytes % (Manual) 3 L (20-40) % Monocytes % (Manual) 4 (0-10) % Toxic Granulation Present Platelet Estimate Slightly decreased L (NORMAL) Large Platelets Present Giant Platelets Present Polychromasia Slight Hypochromasia (manual) Slight Poikilocytosis (manual Slight Anisocytosis (manual) Slight Macrocytosis (manual) Slight Ovalocytes Slight [place] Cells Slight Schistocytes Slight APTT (21-34) SECONDS Sodium 153 H (132-148) mmol/L Potassium 3.9 (3.6-5.2) mmol/L Chloride 115 H (98-107) mmol/L Carbon Dioxide 19 L (22-30) mmol/L Anion Gap 24 H (10-20) BUN 89 H (7-17) mg/dL Creatinine 6.4 H (0.7-1.2) mg/dL Est GFR ( Amer) 8 Est GFR (Non-Af Amer) 7 Random Glucose 224 H (65-105) mg/dL Calcium 7.7 L (8.6-10.4) mg/dl Phosphorus 5.7 H (2.5-4.5) mg/dL Magnesium 2.5 H (1.6-2.3) mg/dL Total Bilirubin 1.3 (0.2-1.3) mg/dL AST 137 H D (14-36) U/L ALT 242 H (9-52) U/L Alkaline Phosphatase 106 (38-126) U/L Total Protein 5.8 L (6.3-8.3) g/dL Albumin 3.7 (3.5-5.0) g/dL Globulin 2.2 (2.2-3.9) gm/dL Albumin/Globulin Ratio 1.7 (1.0-2.1) Hep Bs Antigen (NEGATIVE) Hep Bs Antibody (NEGATIVE) Hep B Core IgM Ab (NEGATIVE) Hepatitis C Antibody (NEGATIVE) Laboratory Results - last 24 hr 08/01/18 08/01/18 08/01/18 06:21 06:21 06:21 WBC 21.5 H RBC 3.70 L Hgb 10.0 L D Hct 30.6 L MCV 82.6 D MCH 27.0 MCHC 32.6 L RDW 15.7 H Plt Count 101 L MPV 12.1 H Neut % (Auto) 90.6 H Lymph % (Auto) 4.7 L [place] % (Auto) 4.4 Eos % (Auto) 0.1 Baso % (Auto) 0.2 Neut # (Auto) 19.5 H Lymph # (Auto) 1.0 [place] # (Auto) 0.9 H Eos # (Auto) 0.0 Baso # (Auto) 0.0 Neutrophils % (Manual) 87 H Band Neutrophils % 6 H Lymphocytes % (Manual) 3 L Monocytes % (Manual) 4 Toxic Granulation Present Platelet Estimate Slightly decreased L Large Platelets Present Giant Platelets Present Polychromasia Slight Hypochromasia (manual) Slight Poikilocytosis (manual Slight Anisocytosis (manual) Slight Macrocytosis (manual) Slight Ovalocytes Slight [place] Cells Slight Schistocytes Slight APTT 58 H D Sodium 153 H Potassium 3.9 Chloride 115 H Carbon Dioxide 19 L Anion Gap 24 H BUN 89 H Creatinine 6.4 H Est GFR ( Amer) 8 Est GFR (Non-Af Amer) 7 Random Glucose 224 H Calcium 7.7 L Phosphorus 5.7 H Magnesium 2.5 H Total Bilirubin 1.3 AST 137 H D ALT 242 H Alkaline Phosphatase 106 Total Protein 5.8 L Albumin 3.7 Globulin 2.2 Albumin/Globulin Ratio 1.7 Hep Bs Antigen Hep Bs Antibody Hep B Core IgM Ab Hepatitis C Antibody 08/01/18 08/01/18 11:37 11:37 WBC RBC Hgb Hct MCV MCH MCHC RDW Plt Count MPV Neut % (Auto) Lymph % (Auto) [place] % (Auto) Eos % (Auto) Baso % (Auto) Neut # (Auto) Lymph # (Auto) [place] # (Auto) Eos # (Auto) Baso # (Auto) Neutrophils % (Manual) Band Neutrophils % Lymphocytes % (Manual) Monocytes % (Manual) Toxic Granulation Platelet Estimate Large Platelets Giant Platelets Polychromasia Hypochromasia (manual) Poikilocytosis (manual Anisocytosis (manual) Macrocytosis (manual) Ovalocytes [place] Cells Schistocytes APTT Sodium Potassium Chloride Carbon Dioxide Anion Gap BUN Creatinine Est GFR ( Amer) Est GFR (Non-Af Amer) Random Glucose Calcium Phosphorus Magnesium Total Bilirubin AST ALT Alkaline Phosphatase Total Protein Albumin Globulin Albumin/Globulin Ratio Hep Bs Antigen Negative Hep Bs Antibody Positive Hep B Core IgM Ab Negative Hepatitis C Antibody Negative Critical Care Progress Note - Nutrition Nutrition: Nutrition Category Date Time Status Mechanically altered [Dysphagia/Modified Consistency Diets 08/01/18 Dinner Active Diet] [DIET] Attending/Attestation - Attestation I have personally seen and examined this patient.: Yes I have fully participated in the care of the patient.: Yes I have reviewed all pertinent clinical information: Yes Notes (Text): 08/01/18 17:03 I have seen and examined the patient. Medical records, lab studies, and imaging were reviewed by me and a management plan was formulated on multidisciplinary rounds with resident Dr. Denton. I agree with their documented assessment and plan. Patient in respiratory distress secondary to fluid overload with pulmonary edema. In oliguric renal failure, not responding to diuretics. Had to place dialysis catheter to remove fluid with dialysis. Plan to remove 3L. Critical Care Time 35 minutes. Multi-disciplinary rounds were performed with house staff, nursing, speech therapy, respiratory therapy, pharmacy and nutrition with integrated input from the primary team/attending and other consulting services. The documented time is cumulative and includes review of patient data/exams/labs/chart review and examination of the patient on rounds and throughout the day; time is exclusive of any procedures or teaching time.
--- NOTE | 2018-08-01 16:54 | PCM.PROC ---
Procedures Attestation:: I certify that I have explained the specified Operation(s) or Procedure(s), risks, benefits and reasonable alternatives to the Patient and/or other person responsible. The opportunity was given to ask questions and all questions answered - Central Line Placement Right Internal Jugular Hemodialysis Access Aseptic technique was employed throughout the procedure: Hand Hygiene done prior to procedure, Full sterile barriers (mask, hair cover, sterile gown, sterile gl oves), Full body sterile drape, Chloraprep Antiseptic: 30 second prep for IJ or SC sites CVP Time Out Performed: Yes Pt. Placed on Pulse Ox Monitor: Yes Central Line Prep: Chlorhexidine-Alcohol Combination Local Anesthesia Used: Lidocaine 1% Ultrasound Used for Placement: Yes Central Line Lumen Inserted: triple Central Line Length: 20 cm Post Procedure: Sutured in Place, Good Blood Return, All Ports Aspirated, Flushed, Capped, Sterile Dressing Applied Secured by: Suture Post procedure dressing: Clear vapor permeable, Chlorhexidine disc (Biopatch) Post Procedure X-Ray: Yes Patient Tolerated Procedure: No Complications Immediate Complications: None
[2018-08-01] MEDS ORDERED: Morphine 4 MG/ML VIAL IVP STA (18:43)
--- NOTE | 2018-08-01 19:49 | PN ---
DATE: 08/01/2018 SUBJECTIVE: The patient is a 48-year-old. She is now on a BiPAP and is drowsy. PHYSICAL EXAMINATION: VITAL SIGNS: Vitals are stable at this time. Her blood pressure is 118/78, heart rate is 72 and temperature is 98.2 on BiPAP. HEENT: Head is atraumatic. NECK: Supple. LUNGS: Have some rhonchi bilaterally. SKIN: There is severe ecchymosis on the left neck as well as extending to the chest wall probably she lost her blood there. HEART: S1 and S2 are regular. ABDOMEN: Soft and nontender. No guarding, no rigidity present. EXTREMITIES: Have edema. LABORATORY DATA: White count is 21.5, hemoglobin today is 10, probably she got transfusion yesterday and hemoglobin is better, hematocrit is 30.6, platelet count is 101, it is better today. Cultures, sputum shows some yeast, which is probably just present because now we are giving steroids. MEDICATIONS: The patient is now on Maxipime and Flagyl to cover for respiratory pneumonia and she is also on methylprednisolone, metronidazole, and Maxipime at this time. ASSESSMENT AND PLAN: We will continue on the present antibiotics and we will follow. The patient has pulmonary embolism with deep vein thrombosis and now the hemoglobin is better and hopefully she will improve further. Smitha Slater MD
[2018-08-01] MEDS ORDERED: Pantoprazole 40 mg Susp UD PO SCH (22:00)
--- NOTE | 2018-08-01 22:12 | CP.PCM.PN ---
Subjective - Date & Time of Evaluation Date of Evaluation: 08/01/18 Time of Evaluation: 18:00 - Subjective Subjective: SEEN IN ICU ON RENAL F/U .. COVERING FOR RENAL SEEN ON HD .. S/P L IJV CATH S/P EXTUBATION .. FEELS BETTER RENAL FUNCTION CONTINUES TO DETERIORATE ..WAS STARTED ON HD ALL PREVIOUS EMR REVIEWED Objective - Vital Signs/Intake and Output Vital Signs (last 24 hours): Temp Pulse Resp BP Pulse Ox 98.2 F 100 H 29 H 134/89 96 08/01/18 20:00 08/01/18 20:00 08/01/18 20:00 08/01/18 19:55 08/01/18 20:20 Intake and Output: 08/01/18 08/02/18 18:59 06:59 Intake Total 270.7 67.4 Output Total 3445 80 Balance -3174.3 -12.6 - Medications Medications: Current Medications Albuterol/Ipratropium (Duoneb 3 Mg/0.5 Mg (3 Ml) Ud) 3 ml INH RQ6 [facility] Last Admin: 08/01/18 19:52 Dose: 3 ml Bumetanide (Bumex) 3 mg IVP Q6H [facility] Last Admin: 08/01/18 19:31 Dose: 3 mg Heparin Sodium/Sodium Chloride (Heparin 58092 Units/250ml 1/2 Normal Saline) 25,000 units in 250 mls @ 12.247 mls/hr IV .[id number] PRN; Protocol PRN Reason: ADJUST RATE PER PROTOCOL Last Admin: 08/01/18 06:36 Dose: 12 units/kg/hr, 8.709 mls/hr Cefepime HCl (Maxipime Iv 1 Gm Premix) 1 gm in 50 mls @ 100 mls/hr IVPB Q12H [facility]; Protocol Last Admin: 08/01/18 15:26 Dose: 100 mls/hr Methylprednisolone (Solu-Medrol) 40 mg IVP TID [facility] Last Admin: 08/01/18 18:24 Dose: 40 mg Metolazone (Zaroxolyn) 5 mg PO DAILY [facility] Last Admin: 08/01/18 10:28 Dose: 5 mg Metronidazole (Flagyl) 500 mg PO Q8 [facility]; Protocol Last Admin: 08/01/18 14:26 Dose: 500 mg Pantoprazole Sodium (Protonix Susp) 40 mg PO Q12 [facility] Potassium Chloride (K-Dur 20 Meq Er Tab) 40 meq PO DAILY [facility] Last Admin: 08/01/18 10:25 Dose: 40 meq - Labs Labs: 08/01/18 06:21 08/01/18 06:21 PT 17.7 SECONDS (9.7-12.2) H D 07/30/18 06:11 INR 1.6 D 07/30/18 06:11 APTT 58 SECONDS (21-34) H D 08/01/18 06:21 Assessment and Plan - Assessment and Plan (Free Text) Assessment: BRIAN .. WORSENING .. ON HER 1ST HD SEPSIS ON IVAB S/P VDRF YANN P EMBOLI .. ON HEPARIN P : C/O CURRENT CARE C/O PRESENT MANAGEMENT NEXT HD ON MON
[2018-08-02] MEDS: Albuterol-Ipratrop 3 mg / 0.5 (3 ml) UD INH SCH ×4 (01:13→19:01)
[2018-08-02] MEDS: Cefepime IV 1 gm in Dextrose 1 GM/50 ML BAG IVPB SCH ×2 (02:27→15:07)
[2018-08-02] MEDS: Dexmedetomidine Hydrochloride 200 MCG in Sodium Chloride 0.9% 48 ML IV PRN ×2 (05:25→15:05)
[2018-08-02 06:41] LABS: BASO % 0.2 % (0.0-2.0); EOS % 0.1 % (0.0-4.0); LYMPH # 1.3 K/uL (1.0-4.3); LYMPH % 7.5 % (20.0-40.0); MEAN CORPUSCULAR HEMOGLOBIN 27.3 pg (27.0-31.0); MEAN CORPUSCULAR HGB CONC 33.3 g/dL (33.0-37.0); MEAN PLATELET VOLUME 11.2 fL (7.2-11.7); MONO # 1.1 K/uL (0.0-0.8); MONO % 6.1 % (0.0-10.0); NEUT # 15.1 K/uL (1.8-7.0); NEUT % 86.1 % (50.0-75.0); NRBC % 1.9 % (0.0-2.0); PLATELET COUNT 88 K/uL (130-400); RBC 3.64 Mil/uL (3.80-5.20); WHITE BLOOD COUNT 17.6 K/uL (4.8-10.8)
[2018-08-02 07:00] LABS: ALB/GLOB RATIO 1.5 (1.0-2.1); ALBUMIN 3.5 g/dL (3.5-5.0); CALCIUM 8.5 mg/dl (8.6-10.4)
[2018-08-02 08:56] LABS: BANDS 3 % (0-2); LYMPHOCYTE 5 % (20-40); MONOCYTE 6 % (0-10); NEUTROPHIL 86 % (50-75); NUCLEATED RED BLOOD CELL 1 % (0-0); TOTAL CELLS COUNTED 100
[2018-08-02 09:00] LABS: PLATELET ESTIMATE DECREASED (NORMAL)
[2018-08-02 09:04] LABS: ANISOCYTOSIS SLIGHT; LARGE PLATELETS PRESENT
[2018-08-02 09:05] LABS: HYPOCHROMIC SLIGHT; POLYCHROMIC SLIGHT
[2018-08-02] MEDS ORDERED: Potassium Chloride 20 mEq/15 ml LIQ UD PO ONE (09:15)
--- NOTE | 2018-08-02 09:41 | CP.PCM.PN ---
Subjective - Date & Time of Evaluation Date of Evaluation: 08/02/18 Time of Evaluation: 06:20 - Subjective Subjective: surgery consult note for Dr. Mckeon Patient seen and examined at beside. Patient had to be sedated D/T tachypnea last night, but no other adverse events. Patient on heparin drip with no sign of bleeding Objective - Vital Signs/Intake and Output Vital Signs (last 24 hours): Temp Pulse Resp BP Pulse Ox 97.9 F 74 24 112/75 100 08/02/18 04:00 08/02/18 08:12 08/02/18 07:00 08/02/18 06:55 08/02/18 07:00 Intake and Output: 08/02/18 08/02/18 06:59 18:59 Intake Total 367.2 23.0 Output Total 350 30 Balance 17.2 -7.0 - Medications Medications: Current Medications Albuterol/Ipratropium (Duoneb 3 Mg/0.5 Mg (3 Ml) Ud) 3 ml INH RQ6 [facility] Last Admin: 08/02/18 08:11 Dose: 3 ml Bumetanide (Bumex) 3 mg IVP Q6H [facility] Last Admin: 08/02/18 07:10 Dose: 3 mg Heparin Sodium/Sodium Chloride (Heparin 82896 Units/250ml 1/2 Normal Saline) 25,000 units in 250 mls @ 12.247 mls/hr IV .[id number] PRN; Protocol PRN Reason: ADJUST RATE PER PROTOCOL Last Admin: 08/01/18 06:36 Dose: 12 units/kg/hr, 8.709 mls/hr Cefepime HCl (Maxipime Iv 1 Gm Premix) 1 gm in 50 mls @ 100 mls/hr IVPB Q12H [facility]; Protocol Last Admin: 08/02/18 02:27 Dose: 100 mls/hr Dexmedetomidine HCl 200 mcg/ (Sodium Chloride) 50 mls @ 4.31 mls/hr IV TITR PRN; Protocol PRN Reason: Agitation Last Titration: 08/02/18 06:17 Dose: 0.2 mcg/kg/hr, 4.31 mls/hr Methylprednisolone (Solu-Medrol) 40 mg IVP TID [facility] Last Admin: 08/01/18 18:24 Dose: 40 mg Metolazone (Zaroxolyn) 5 mg PO DAILY [facility] Last Admin: 08/01/18 10:28 Dose: 5 mg Metronidazole (Flagyl) 500 mg PO Q8 [facility]; Protocol Last Admin: 08/02/18 06:20 Dose: 500 mg Pantoprazole Sodium (Protonix Ec Tab) 40 mg PO Q12 [facility] - Labs Labs: 08/02/18 06:35 08/02/18 06:35 PT 17.7 SECONDS (9.7-12.2) H D 07/30/18 06:11 INR 1.6 D 07/30/18 06:11 APTT 58 SECONDS (21-34) H 08/02/18 06:35 - Constitutional Appears: Non-toxic, No Acute Distress - Head Exam Head Exam: NORMOCEPHALIC - Eye Exam Eye Exam: Normal appearance. absent: Conjunctival injection, Scleral icterus - ENT Exam ENT Exam: Mucous Membranes Moist, Normal Oropharynx - Respiratory Exam Respiratory Exam: absent: Accessory Muscle Use, Respiratory Distress Additional comments: on BIPAP - Cardiovascular Exam Cardiovascular Exam: RRR - GI/Abdominal Exam GI & Abdominal Exam: Soft, Tenderness (epigastrium/RUQ mild tenderness). absent: Distended - Neurological Exam Neurological Exam: Altered - Psychiatric Exam Additional comments: sedated - Skin Skin Exam: Dry, Normal Color, Warm Assessment and Plan - Assessment and Plan (Free Text) Assessment: 48F with PE's/DVT's and abdominal tenderness--currently on heparin drip Plan: Continue heparin drip No IVC filter placement planned at this time and patient is tolerating blood thinners No cholecystectomy planned at this time--patient continues to improved and LFT's improving Medical management per primary and ICU No further surgical intervention planned--please reach out to surgical team for any further questions or concerns Discussed with Dr. Mike Yan PGY2
[2018-08-02] MEDS: MethylPREDNISolone 40 mg Vial IVP SCH ×2 (11:00→15:02)
[2018-08-02] MEDS: metOLazone 5 MG TAB PO SCH (11:00)
[2018-08-02] MEDS: Heparin25000 units/250ml 1/2NS 25,000 UNITS/250 ML BAG IV PRN (11:25)
[2018-08-02] MEDS: Albumin Human 25% (12.5 gm/50 ml) IV SCH ×3 (11:40→13:30)
[2018-08-02] MEDS: Pantoprazole 40 mg EC Tab PO SCH ×2 (12:07→22:25)
--- NOTE | 2018-08-02 14:53 | CP.PCM.PN ---
Subjective - Date & Time of Evaluation Date of Evaluation: 08/02/18 Time of Evaluation: 14:00 - Subjective Subjective: Patient has had second HD just now. They say they took of 3 kg yesterday and another 3 kg today. Patient received albumin overnight as well Her breathing looks a lot easier, she remains on Bipap. Off of pressor medications. She is awake and alert and interacting with family members at bedside A portable CXRAY was done after second HD was done and it's very rotated film but does look like less congestion than before. Objective - Vital Signs/Intake and Output Vital Signs (last 24 hours): Temp Pulse Resp BP Pulse Ox 98 F 73 22 97/61 L 100 08/02/18 14:15 08/02/18 14:15 08/02/18 14:15 08/02/18 14:15 08/02/18 14:15 Intake and Output: 08/02/18 08/02/18 06:59 18:59 Intake Total 367.2 601.0 Output Total 350 360 Balance 17.2 241.0 - Medications Medications: Current Medications Albuterol/Ipratropium (Duoneb 3 Mg/0.5 Mg (3 Ml) Ud) 3 ml INH RQ6 [facility] Last Admin: 08/02/18 13:02 Dose: 3 ml Bumetanide (Bumex) 3 mg IVP Q6H [facility] Last Admin: 08/02/18 07:10 Dose: 3 mg Heparin Sodium/Sodium Chloride (Heparin 05096 Units/250ml 1/2 Normal Saline) 25,000 units in 250 mls @ 12.247 mls/hr IV .[id number] PRN; Protocol PRN Reason: ADJUST RATE PER PROTOCOL Last Admin: 08/02/18 11:25 Dose: 12 units/kg/hr, 8.709 mls/hr Cefepime HCl (Maxipime Iv 1 Gm Premix) 1 gm in 50 mls @ 100 mls/hr IVPB Q12H [facility]; Protocol Last Admin: 08/02/18 02:27 Dose: 100 mls/hr Dexmedetomidine HCl 200 mcg/ (Sodium Chloride) 50 mls @ 4.31 mls/hr IV TITR PRN; Protocol PRN Reason: Agitation Last Titration: 08/02/18 06:17 Dose: 0.2 mcg/kg/hr, 4.31 mls/hr Methylprednisolone (Solu-Medrol) 40 mg IVP TID [facility] Last Admin: 08/02/18 11:00 Dose: 40 mg Metolazone (Zaroxolyn) 5 mg PO DAILY [facility] Last Admin: 08/02/18 11:00 Dose: 5 mg Metronidazole (Flagyl) 500 mg PO Q8 [facility]; Protocol Last Admin: 08/02/18 06:20 Dose: 500 mg Pantoprazole Sodium (Protonix Ec Tab) 40 mg PO Q12 [facility] Last Admin: 08/02/18 12:07 Dose: 40 mg - Labs Labs: 08/02/18 06:35 08/02/18 06:35 PT 17.7 SECONDS (9.7-12.2) H D 07/30/18 06:11 INR 1.6 D 07/30/18 06:11 APTT 58 SECONDS (21-34) H 08/02/18 06:35 Assessment and Plan - Assessment and Plan (Free Text) Assessment: A/P: This is a 48 year old female patient who unfortunately has bilateral large PE and currently is intubated at this time. Per family members, the patient has a past medical history of anxiety who presented with worsening shortness of breath and syncope. Acute Hypercapnic Respiratory Failure from Bilateral Pulmonary Embolism 08/02: Now has had two sessions of HD, a total of 6kg removed. Albumin given. Blood pressure steady at this time. The patient remains on bipap and off of pressor medications. CXRAY after HD looks less congestion than before. Patient has remained on the heparin ggt, hemoglobin is stable 08/01 Now on Bipap. Remains off of pressors, Awake and alert and interactive. She was able to sign for HD today He has been on lower dose heparin ggt, hopefuuly breathing will continue to improve with HD. 07/30: As of this morning off of pressor medications. On lower rate of heparin ggt now. The echo came back, EF is reported as 70% and the right ventricle moderate dilaitation. 07/29: Yesterday there was consideration for HD since she was so acidotic however pH later improved. Creatine is still elevated. Remains on bicarb ggt. She was again on the heparin ggt this morning but then held due to high PTTs, the PTTs have always been high so I placed ordereds to restart at much smaler heparin drip at just 6 units instead and see how the PTTs are. 07/28: IVF changed to 1/2 NS @ 200 cc /hr with 50 meq of NaHCO3, she is still acidotic on ABG despite being on 3 pressor medications as well as on mechanical ventilation. Likely combination of the bilateral PE and also the sepsis / DIC. She was on heparin ggt overnight then it was discontinued this morning. Currently not a candidate for direct thrombolytic administration due to bleeding concern. 07/27: Spoke with family member Darshan at bedside and he understands prognosis is poor. At this time the patient remains intubated with minimal reflexes illicited on exam. Intubated, s/p respiratory arrest x 2 -ABG: pH <6.80, PO2 29, PCO2 103, Lactate 17.6 CT head showed left forhead swelling CTA chest showed diffuse bilateral pulmonary emboli involving bilateral central and segmental pulmonary arteries, cardiac silhouette enlarged, there is evidence of pulmonary venous congestion compatible with CHF, left basilar atelectasis vs pulmonary infarct (official report pending) Renal failure - acute kidney injury / ATN 08/02: Just had second HD session. Urine outs recorded as 795 ml today. Creatine remains high 08/01: Outs were 1030 and creatine remains > 6 07/30: Urine outs were recorded as 550, creatine increased again. There was consideration for HD previously when the patient was more acidotic. Sepsis / DIC / Abdominal Pain 08/02: WBC decreasing. Patient has been afebrile past 24 hrs 08/01: Abx Cefepime and Flagyl. There is still a high creatine 07/31 Abx changed to Cepime 07/30: Yesterday completed abdominal ultrasound with concerning findings for po ssible cholecystitis. Remains on IV abx Zosyn and Flagyl. The vancomycin is on hold due to the renal function. 07/29: IV Flagyl was added yesterday as she is having diarrhea. This being said the CDIFF was negative. She does have fever, Tmax was 100.9 There are elevated LFTs either from possible cholecytitis or from shock liver from low perfusion earlier. 07/28: Cultures still pending at this time, she remains on IV pressors and also the urine out put was only 1065 mL 07/27: Elevated WBC, bandemia, and hypothermic Antibiotics started on Zosyn and Vancomycin Also blood culture, urine culture, and IVF boluses. CT abd/pelvis showed periportal edema and pericholecystic/peripancreatic fluid, probably related to fluid overload, exclude hepatocellular disease. Severe enteritis. Infectious and inflammatory etiologies are considered. Large amount of fecal material is seen throughout colon (official report pending) Atrial Fibrillation with RVR - now NSR 10: NSR in the 90s and 100s. Hopefully with HD to remove excess fluid and with heparin ggt she will remain in NSR 07/29: As of this morning was NSR on the telemetry and HR mostly in the 70s to 90s range. On heparin ggt, however often has high PTTs 10/: Likley secondary to the bilateral PEs, they asked IR to evaluate however she was not a candidate for direct cathter thrombolysis Initial EKG showed afib with rate of 146 bpm Patient on heparin drip
--- NOTE | 2018-08-02 15:33 | RAD ---
Date of service: 08/02/2018 HISTORY: renal failure, fluid overload COMPARISON: Comparison chest 08/01/2018 at 1124 hr FINDINGS: In situ left IJ central venous line with tip in the SVC/RA junction.. In situ right-sided IJ dialysis catheter with tip possibly within the IVC below the right hemidiaphragm. LUNGS: Redemonstrated are patchy infiltrate again noted within the right upper lobe and left mid to lower lung [place]. PLEURA: No significant pleural effusion identified, no pneumothorax apparent. CARDIOVASCULAR: Heart size unchanged OSSEOUS STRUCTURES: No significant abnormalities. VISUALIZED UPPER ABDOMEN: Normal. OTHER FINDINGS: None. IMPRESSION: Support lines as described. Redemonstrated are patchy infiltrate again noted within the right upper lobe and left mid to lower lung [place].
--- NOTE | 2018-08-02 15:42 | CP.CCUPN ---
CCU Subjective - Physician Review Events Since Last Encounter (Free Text): 08/02/18 15:40 breathing well on BIPAP, still fluid overloaded. CCU Objective - Vital Signs / Intake & Output Vital Signs (Last 4 hours): Vital Signs Temp Pulse Pulse Resp BP BP Pulse Ox 08/02/18 14:15 98 F 73 22 97/61 L 100 08/02/18 14:00 70 20 102/39 L 100 08/02/18 13:40 68 20 105/60 100 08/02/18 13:21 69 21 110/62 100 08/02/18 13:20 68 20 110/62 100 08/02/18 13:02 69 08/02/18 13:00 65 20 107/65 100 08/02/18 12:45 64 20 99/66 L 100 08/02/18 12:30 66 20 98/69 L 100 08/02/18 12:06 66 21 101/65 97 08/02/18 12:00 65 20 108/64 100 08/02/18 11:51 66 21 108/67 100 08/02/18 11:45 66 20 95/67 L 100 Intake and Output (Last 8hrs): Intake & Output 08/02/18 08/02/18 08/02/18 06:59 14:59 22:59 Intake Total 262.4 601.0 37.4 Output Total 210 360 Balance 52.4 241.0 37.4 Weight 178 lb 178 lb Intake: IV 62.6 250 37.4 Intake, IV Amount 179.8 91.0 Left Distal Port Internal 119.6 60.9 Jugular Left Medial Port Internal 60.2 30.1 Jugular Oral 20 260 Output: Urine 210 360 Urethral (Becerril) 210 360 - Physical Exam Head: Positive for: Normocephalic, Ecchymosis Pupils: Positive for: PERRL Extroacular Muscles: Positive for: EOMI Conjunctiva: Positive for: Normal Mouth: Positive for: Dry Pharnyx: Positive for: Other (ett in place) Neck: Positive for: Normal Range of Motion, Trachea Midline Respiratory/Chest: Positive for: Good Air Exchange, Decreased Breath Sounds Cardiovascular: Positive for: Regular Rate and Rhythm, Normal S1, S2 Abdomen: Positive for: Tenderness (mild tenderness in right upper quadrant ) Upper Extremity: Positive for: Other (ecchymosis surrounding IV sites ). Negative for: Cyanosis Lower Extremity: Positive for: Edema. Negative for: CALF TENDERNESS, Temperature Abnormalties Neurological: Positive for: GCS=15, CN II-XII Intact Skin: Positive for: Warm, Dry, Normal Color Psychiatric: Positive for: Alert, Oriented x 3, Normal Insight, Anxious - Medications Active Medications: Active Medications Generic Name Dose Route Start Last Admin Trade Name Freq PRN Reason Stop Dose Admin Albuterol/Ipratropium 3 ml 07/31/18 20:00 08/02/18 13:02 Duoneb 3 Mg/0.5 Mg (3 Ml) Ud INH 3 ml RQ6 KACY Administration Bumetanide 3 mg 07/31/18 19:00 08/02/18 15:00 Bumex IVP 3 mg Q6H AKCY Administration Heparin Sodium/Sodium Chloride 25,000 units in 250 mls @ 12.247 mls/hr 07/27/18 07:09 08/02/18 11:25 Heparin 43553 Units/250ml 1/2 Normal Saline IV 12 units/kg/hr .[id number] PRN 8.709 mls/hr ADJUST RATE PER PROTOCOL Administration Protocol 16.875 UNITS/KG/HR Cefepime HCl 1 gm in 50 mls @ 100 mls/hr 07/31/18 14:00 08/02/18 15:07 Maxipime Iv 1 Gm Premix IVPB 100 mls/hr Q12H KACY Administration Protocol Dexmedetomidine HCl 200 mcg/ 50 mls @ 4.31 mls/hr 08/01/18 22:25 08/02/18 15:05 Sodium Chloride IV 0.2 mcg/kg/hr TITR PRN 4.31 mls/hr Agitation Administration Protocol 0.2 MCG/KG/HR Methylprednisolone 40 mg 07/27/18 10:00 08/02/18 15:02 Solu-Medrol IVP 40 mg TID KACY Administration Metolazone 5 mg 08/01/18 10:00 08/02/18 11:00 Zaroxolyn PO 5 mg DAILY KACY Administration Metronidazole 500 mg 07/31/18 14:00 08/02/18 15:01 Flagyl PO 500 mg Q8 KACY Administration Protocol Pantoprazole Sodium 40 mg 08/02/18 10:00 08/02/18 12:07 Protonix Ec Tab PO 40 mg Q12 KACY Administration - Patient Studies Lab Studies: Lab Studies 08/02/18 08/02/18 08/02/18 Range/Units 06:35 06:35 06:35 WBC 17.6 H (4.8-10.8) K/uL RBC 3.64 L (3.80-5.20) Mil/uL Hgb 10.0 L (11.0-16.0) g/dL Hct 29.9 L (34.0-47.0) % MCV 82.0 (81.0-99.0) fL MCH 27.3 (27.0-31.0) pg MCHC 33.3 (33.0-37.0) g/dL RDW 16.0 H (11.5-14.5) % Plt Count 88 L (130-400) K/uL MPV 11.2 (7.2-11.7) fL Neut % (Auto) 86.1 H (50.0-75.0) % Lymph % (Auto) 7.5 L (20.0-40.0) % [place] % (Auto) 6.1 (0.0-10.0) % Eos % (Auto) 0.1 (0.0-4.0) % Baso % (Auto) 0.2 (0.0-2.0) % Neut # (Auto) 15.1 H (1.8-7.0) K/uL Lymph # (Auto) 1.3 (1.0-4.3) K/uL [place] # (Auto) 1.1 H (0.0-0.8) K/uL Eos # (Auto) 0.0 (0.0-0.7) K/uL Baso # (Auto) 0.0 (0.0-0.2) K/uL Neutrophils % (Manual) 86 H (50-75) % Band Neutrophils % 3 H (0-2) % Lymphocytes % (Manual) 5 L (20-40) % Monocytes % (Manual) 6 (0-10) % Nucleated RBC % 1 H (0-0) % Platelet Estimate Decreased L (NORMAL) Large Platelets Present Polychromasia Slight Hypochromasia (manual) Slight Anisocytosis (manual) Slight APTT 58 H (21-34) SECONDS Sodium 150 H (132-148) mmol/L Potassium 3.8 (3.6-5.2) mmol/L Chloride 109 H (98-107) mmol/L Carbon Dioxide 19 L (22-30) mmol/L Anion Gap 25 H (10-20) BUN 80 H (7-17) mg/dL Creatinine 6.0 H (0.7-1.2) mg/dL Est GFR ( Amer) 9 Est GFR (Non-Af Amer) 8 Random Glucose 159 H (65-105) mg/dL Calcium 8.5 L (8.6-10.4) mg/dl Phosphorus 4.9 H (2.5-4.5) mg/dL Magnesium 2.3 (1.6-2.3) mg/dL Total Bilirubin 1.2 (0.2-1.3) mg/dL AST 85 H D (14-36) U/L ALT 208 H (9-52) U/L Alkaline Phosphatase 83 (38-126) U/L Total Protein 5.8 L (6.3-8.3) g/dL Albumin 3.5 (3.5-5.0) g/dL Globulin 2.3 (2.2-3.9) gm/dL Albumin/Globulin Ratio 1.5 (1.0-2.1) Hep Bs Antibody (NEGATIVE) Hepatitis C Antibody (NEGATIVE) 08/01/18 08/01/18 Range/Units 11:37 11:37 WBC (4.8-10.8) K/uL RBC (3.80-5.20) Mil/uL Hgb (11.0-16.0) g/dL Hct (34.0-47.0) % MCV (81.0-99.0) fL MCH (27.0-31.0) pg MCHC (33.0-37.0) g/dL RDW (11.5-14.5) % Plt Count (130-400) K/uL MPV (7.2-11.7) fL Neut % (Auto) (50.0-75.0) % Lymph % (Auto) (20.0-40.0) % [place] % (Auto) (0.0-10.0) % Eos % (Auto) (0.0-4.0) % Baso % (Auto) (0.0-2.0) % Neut # (Auto) (1.8-7.0) K/uL Lymph # (Auto) (1.0-4.3) K/uL [place] # (Auto) (0.0-0.8) K/uL Eos # (Auto) (0.0-0.7) K/uL Baso # (Auto) (0.0-0.2) K/uL Neutrophils % (Manual) (50-75) % Band Neutrophils % (0-2) % Lymphocytes % (Manual) (20-40) % Monocytes % (Manual) (0-10) % Nucleated RBC % (0-0) % Platelet Estimate (NORMAL) Large Platelets Polychromasia Hypochromasia (manual) Anisocytosis (manual) APTT (21-34) SECONDS Sodium (132-148) mmol/L Potassium (3.6-5.2) mmol/L Chloride (98-107) mmol/L Carbon Dioxide (22-30) mmol/L Anion Gap (10-20) BUN (7-17) mg/dL Creatinine (0.7-1.2) mg/dL Est GFR ( Amer) Est GFR (Non-Af Amer) Random Glucose (65-105) mg/dL Calcium (8.6-10.4) mg/dl Phosphorus (2.5-4.5) mg/dL Magnesium (1.6-2.3) mg/dL Total Bilirubin (0.2-1.3) mg/dL AST (14-36) U/L ALT (9-52) U/L Alkaline Phosphatase (38-126) U/L Total Protein (6.3-8.3) g/dL Albumin (3.5-5.0) g/dL Globulin (2.2-3.9) gm/dL Albumin/Globulin Ratio (1.0-2.1) Hep Bs Antibody Positive (NEGATIVE) Hepatitis C Antibody Negative (NEGATIVE) Laboratory Results - last 24 hr 08/01/18 08/01/18 08/02/18 11:37 11:37 06:35 WBC 17.6 H RBC 3.64 L Hgb 10.0 L Hct 29.9 L MCV 82.0 MCH 27.3 MCHC 33.3 RDW 16.0 H Plt Count 88 L MPV 11.2 Neut % (Auto) 86.1 H Lymph % (Auto) 7.5 L [place] % (Auto) 6.1 Eos % (Auto) 0.1 Baso % (Auto) 0.2 Neut # (Auto) 15.1 H Lymph # (Auto) 1.3 [place] # (Auto) 1.1 H Eos # (Auto) 0.0 Baso # (Auto) 0.0 Neutrophils % (Manual) 86 H Band Neutrophils % 3 H Lymphocytes % (Manual) 5 L Monocytes % (Manual) 6 Nucleated RBC % 1 H Platelet Estimate Decreased L Large Platelets Present Polychromasia Slight Hypochromasia (manual) Slight Anisocytosis (manual) Slight APTT Sodium Potassium Chloride Carbon Dioxide Anion Gap BUN Creatinine Est GFR ( Amer) Est GFR (Non-Af Amer) Random Glucose Calcium Phosphorus Magnesium Total Bilirubin AST ALT Alkaline Phosphatase Total Protein Albumin Globulin Albumin/Globulin Ratio Hep Bs Antibody Positive Hepatitis C Antibody Negative 08/02/18 08/02/18 06:35 06:35 WBC RBC Hgb Hct MCV MCH MCHC RDW Plt Count MPV Neut % (Auto) Lymph % (Auto) [place] % (Auto) Eos % (Auto) Baso % (Auto) Neut # (Auto) Lymph # (Auto) [place] # (Auto) Eos # (Auto) Baso # (Auto) Neutrophils % (Manual) Band Neutrophils % Lymphocytes % (Manual) Monocytes % (Manual) Nucleated RBC % Platelet Estimate Large Platelets Polychromasia Hypochromasia (manual) Anisocytosis (manual) APTT 58 H Sodium 150 H Potassium 3.8 Chloride 109 H Carbon Dioxide 19 L Anion Gap 25 H BUN 80 H Creatinine 6.0 H Est GFR ( Amer) 9 Est GFR (Non-Af Amer) 8 Random Glucose 159 H Calcium 8.5 L Phosphorus 4.9 H Magnesium 2.3 Total Bilirubin 1.2 AST 85 H D ALT 208 H Alkaline Phosphatase 83 Total Protein 5.8 L Albumin 3.5 Globulin 2.3 Albumin/Globulin Ratio 1.5 Hep Bs Antibody Hepatitis C Antibody Fingerstick Blood Sugar Results: 288 Review of Systems - Review of Systems All systems: reviewed and no additional remarkable complaints except - Constitutional Additional comments: thirsty Critical Care Progress Note - Nutrition Nutrition: Nutrition Category Date Time Status Mechanically altered [Dysphagia/Modified Consistency Diets 08/01/18 Dinner Active Diet] [DIET] Assessment/Plan (1) Acute respiratory failure with hypoxemia Assessment and plan: Patient is a 48 year old female with past medical history of anxiety presenting to ED with shortness of breath, syncope, and chest pain, went into cardiac arrest, was intubated and found to have bilateral PE and septic shock. Extubated 08/01. Plan: Neuro: - Alert, following commands - Head CT shows no acute intracranial abnormality, left forehead soft tissue swelling Pulm: - s/p extubation - CXR this AM shows mild pulmonary venous congestive changes with patchy more discrete opacities in left mid to lower lung field with suspected small effusion, patchy infiltrates in RUL and right perihilar region - maintain SPO2> 92 % - Duonebs 3 ml INH RQ6 pulmonary edema to improve with fluid removal via dialysis. CV: - Chest CT shows extensive bilateral lower lobe proximal PE, smaller emboli within upper lobes and middle lobe, cardiomegaly - Venous dopplers show DVT in left common femoral vein - ECHO shows LVEF 73%, diastolic dysfunction, mild-mod dilated RV GI: - Abd/pelvis CT shows mild ileus, questionable enteritis, postoperative changes of stomach - Diarrhea noted. FOBT positive. C.diff, salmonella, shigella, campylobacter negative. - Procal >200 - Protonix 40 mg IV Q12 - Abd U/S shows cholecystitis, hold off on cholecystostomy for now as patient is clinically improving - Transaminitis resolving - Tube feeds Renal: - BRIAN, Cr uptrending - oliguric dilayzed with 3L removal on (08/01) and 4L fluid removal (08/02) Endo: - maintain euglycemia with blood sugars 140-180 Heme: - heparin drip low dose - Heme/onc consulted. Appreciate recs. No need for IVC filter, patient's bleeding risk has decreased, and is tolerating heparin drip, will transition to oral a/c once completely stable and no further interventions planned. ID: - Flagyl 500 mg Q8H, Cefepime 1 gm Q12H for enterocolitis Dispo: ICU, s/p extubation Access: central line, peripheral IVs, dialysis cath Consults: Cardio, Neuro PPX: Protonix for GI, SCDs contraindicated d/t DVT Critical Care Time spent 35 minutes Multi-disciplinary rounds were performed with house staff, nursing, speech therapy, respiratory therapy, pharmacy and nutrition with integrated input from the primary team/attending and other consulting services. The documented time is cumulative and includes review of patient data/exams/labs/chart review and examination of the patient on rounds and throughout the day; time is exclusive of any procedures or teaching time. Current Visit: Yes Status: Acute
--- NOTE | 2018-08-03 00:46 | CARD ---
APPROVED REPORT Date of service: 07/31/2018 EXAM: Two-dimensional and M-mode echocardiogram with Doppler and color Doppler. Other Information Quality : GoodRhythm : INDICATION Pulmonary Embolism Syncope 2D DIMENSIONS LVEF (Kat's)45 % Mitral Valve E/A ratio0.0 TDI E/Lateral E'0.0E/Medial E'0.0 Tricuspid Valve TR Peak [id number] Peak [id number] LEFT VENTRICLE The left ventricle is normal size. There is normal left ventricular wall thickness. Left ventricle systolic function is normal. The Ejection Fraction is 50-55%. There is normal LV segmental wall motion. RIGHT VENTRICLE The right ventricle is normal size. There is normal right ventricular wall thickness. The right ventricular systolic function is normal. ATRIA The left atrium size is normal. The right atrium size is normal. The interatrial septum is intact with no evidence for an atrial septal defect. AORTIC VALVE The aortic valve is normal in structure. No aortic regurgitation is present. There is no aortic valvular stenosis. There is no aortic valvular vegetation. MITRAL VALVE The mitral valve is normal in structure. There is no evidence of mitral valve prolapse. There is no mitral valve stenosis. There is no mitral valve regurgitation noted. TRICUSPID VALVE The tricuspid valve is normal in structure. There is mild to moderate tricuspid regurgitation. Right ventricular systolic pressure is estimated at 30-40 mmHg. There is mild-moderate pulmonary hypertension. There is no tricuspid valve prolapse or vegetation. There is no tricuspid valve stenosis. PULMONIC VALVE The pulmonic valve is not well visualized. GREAT VESSELS The aortic root is normal in size. PERICARDIAL EFFUSION There is no significant pericardial effusion. <Conclusion> Left ventricle systolic function is normal. The Ejection Fraction is 50-55%. No aortic regurgitation is present. There is no mitral valve regurgitation noted. There is mild to moderate tricuspid regurgitation. There is mild-moderate pulmonary hypertension.
[2018-08-03] MEDS: Cefepime IV 1 gm in Dextrose 1 GM/50 ML BAG IVPB SCH ×2 (01:44→14:00)
[2018-08-03] MEDS: Albuterol-Ipratrop 3 mg / 0.5 (3 ml) UD INH SCH ×4 (01:49→20:43)
[2018-08-03] MEDS: Dexmedetomidine Hydrochloride 200 MCG in Sodium Chloride 0.9% 48 ML IV PRN ×2 (03:00→23:30)
[2018-08-03 07:04] LABS: BASO % 0.1 % (0.0-2.0); EOS % 0.1 % (0.0-4.0); HEMOGLOBIN 9.4 g/dL (11.0-16.0); LYMPH # 0.7 K/uL (1.0-4.3); LYMPH % 3.4 % (20.0-40.0); MEAN CELL VOLUME 81.7 fL (81.0-99.0); MEAN CORPUSCULAR HEMOGLOBIN 27.6 pg (27.0-31.0); MEAN CORPUSCULAR HGB CONC 33.8 g/dL (33.0-37.0); MEAN PLATELET VOLUME 12.2 fL (7.2-11.7); MONO % 4.8 % (0.0-10.0); NEUT # 18.1 K/uL (1.8-7.0); NEUT % 91.6 % (50.0-75.0); PLATELET COUNT 85 K/uL (130-400); RBC 3.39 Mil/uL (3.80-5.20); RED CELL DISTRIBUTION WIDTH 16.1 % (11.5-14.5); WHITE BLOOD COUNT 19.8 K/uL (4.8-10.8)
[2018-08-03 07:41] LABS: ALB/GLOB RATIO 1.6 (1.0-2.1); ALBUMIN 3.5 g/dL (3.5-5.0); CALCIUM 8.9 mg/dl (8.6-10.4)
--- NOTE | 2018-08-03 08:12 | CP.PCM.PN ---
Subjective - Date & Time of Evaluation Date of Evaluation: 08/03/18 Time of Evaluation: 08:31 - Subjective Subjective: Cardiology Progress Note Airam Rasmussen, PGY1 note for Dr. Ba Patient seen and examined at bedside this morning. No acute events overnight. S/p extubation 08/01, now tolerating bipap well. S/p HD on 08/02. Currently on heparin and precedex drip. Will be evaluated for IVC filter once stable. Speaks French. Objective - Vital Signs/Intake and Output Vital Signs (last 24 hours): Temp Pulse Resp BP Pulse Ox 99 F 73 21 123/76 100 08/03/18 04:00 08/03/18 08:00 08/03/18 08:00 08/03/18 07:55 08/03/18 08:00 Intake and Output: 08/03/18 08/03/18 06:59 18:59 Intake Total 520.0 10.8 Output Total 500 30 Balance 20.0 -19.2 - Medications Medications: Current Medications Albuterol/Ipratropium (Duoneb 3 Mg/0.5 Mg (3 Ml) Ud) 3 ml INH RQ6 KACY Last Admin: 08/03/18 01:49 Dose: 3 ml Heparin Sodium/Sodium Chloride (Heparin 14695 Units/250ml 1/2 Normal Saline) 25,000 units in 250 mls @ 12.247 mls/hr IV .[id number] PRN; Protocol PRN Reason: ADJUST RATE PER PROTOCOL Last Admin: 08/02/18 11:25 Dose: 12 units/kg/hr, 8.709 mls/hr Cefepime HCl (Maxipime Iv 1 Gm Premix) 1 gm in 50 mls @ 100 mls/hr IVPB Q12H KACY; Protocol Last Admin: 08/03/18 01:44 Dose: 100 mls/hr Dexmedetomidine HCl 200 mcg/ (Sodium Chloride) 50 mls @ 4.31 mls/hr IV TITR PRN; Protocol PRN Reason: Agitation Last Admin: 08/03/18 03:00 Dose: 0.1 mcg/kg/hr, 2.15 mls/hr Methylprednisolone (Solu-Medrol) 40 mg IVP DAILY [facility] Metolazone (Zaroxolyn) 5 mg PO DAILY [facility] Last Admin: 08/02/18 11:00 Dose: 5 mg Metronidazole (Flagyl) 500 mg PO Q8 KACY; Protocol Last Admin: 08/03/18 06:13 Dose: 500 mg Pantoprazole Sodium (Protonix Ec Tab) 40 mg PO Q12 KACY Last Admin: 08/02/18 22:25 Dose: 40 mg - Labs Labs: 08/03/18 06:52 08/03/18 06:54 PT 17.7 SECONDS (9.7-12.2) H D 07/30/18 06:11 INR 1.6 D 07/30/18 06:11 APTT 51 SECONDS (21-34) H D 08/03/18 06:52 - Constitutional Appears: No Acute Distress - Head Exam Additional comments: left sided frontal ecchymosis noted - Eye Exam Eye Exam: EOMI Pupil Exam: PERRL - ENT Exam ENT Exam: Mucous Membranes Moist - Respiratory Exam Respiratory Exam: absent: Respiratory Distress - Cardiovascular Exam Cardiovascular Exam: REGULAR RHYTHM, +S1, +S2 - GI/Abdominal Exam GI & Abdominal Exam: Normal Bowel Sounds. absent: Guarding, Rigid - Extremities Exam Extremities Exam: absent: Pedal Edema, Tenderness - Neurological Exam Neurological Exam: Alert, Awake - Skin Skin Exam: Warm Additional comments: ecchymosis appreciated on neck, face, right arm Assessment and Plan - Assessment and Plan (Free Text) Assessment: This is a 48 year old female with PMH of anxiety presenting to the ED s/p witnessed syncopal episode after return from [place] on bus. Plan: B/L P.E. -echo showed LVEF 50-55%, mild to moderate TR and pulmonary hypertension -currently on heparin drip, precedex -evaluation for IVC filter once stable -will not do EKOS at this time due to unknown status of prothrombotic state -CTA showed diffuse bilateral pulmonary emboli of B/L central and segmental pulmonary arteries, pulmonary venous congestion compatible with CHF vs left basilar atelectasis vs pulmonary infarct -D-dimer > 5250, PT/INR/PTT elevated, elevated fibrinogen products -s/p respiratory arrest, ACLS performed -LE duplex shows left acute thrombosis of the left common femoral vein Afib -EKG on admission showed afib with RVR at 146bpm, uncertain if new finding Case discussed with attending, further recommendations per Dr. Ba
[2018-08-03 08:51] LABS: LYMPHOCYTE 2 % (20-40); MONOCYTE 1 % (0-10); NEUTROPHIL 97 % (50-75); NUCLEATED RED BLOOD CELL 3 % (0-0); TOTAL CELLS COUNTED 100
[2018-08-03 08:52] LABS: ANISOCYTOSIS SLIGHT; HYPOCHROMIC SLIGHT; PLATELET ESTIMATE DECREASED (NORMAL); POLYCHROMIC SLIGHT
[2018-08-03 08:53] LABS: BURR CELLS SLIGHT
--- NOTE | 2018-08-03 09:43 | CP.PCM.PN ---
Subjective - Date & Time of Evaluation Date of Evaluation: 08/03/18 Time of Evaluation: 09:43 - Subjective Subjective: Seen and examined by me this morning. Patient is on BIPAP saturating good. Spoke to her daughter at bedside. Patient has no pain. tolerating BIPAP Fio2 40 saturating 100%, housekeeping attendant at bedside to start dialysis. Started eating soft diet Passing urine almost a liter a day' d/w RN at bedside Objective - Vital Signs/Intake and Output Vital Signs (last 24 hours): Temp Pulse Resp BP Pulse Ox 99 F 75 21 123/76 100 08/03/18 04:00 08/03/18 08:17 08/03/18 08:00 08/03/18 07:55 08/03/18 08:00 Intake and Output: 08/03/18 08/03/18 06:59 18:59 Intake Total 520.0 10.8 Output Total 500 30 Balance 20.0 -19.2 - Medications Medications: Current Medications Albumin Human (Albumin Human 25% (12.5 Gm/50 Ml)) 12.5 gm IV Q1H KACY Stop: 08/03/18 12:16 Albuterol/Ipratropium (Duoneb 3 Mg/0.5 Mg (3 Ml) Ud) 3 ml INH RQ6 KACY Last Admin: 08/03/18 08:15 Dose: 3 ml Heparin Sodium/Sodium Chloride (Heparin 78855 Units/250ml 1/2 Normal Saline) 25,000 units in 250 mls @ 12.247 mls/hr IV .[id number] PRN; Protocol PRN Reason: ADJUST RATE PER PROTOCOL Last Admin: 08/02/18 11:25 Dose: 12 units/kg/hr, 8.709 mls/hr Cefepime HCl (Maxipime Iv 1 Gm Premix) 1 gm in 50 mls @ 100 mls/hr IVPB Q12H KACY; Protocol Last Admin: 08/03/18 01:44 Dose: 100 mls/hr Dexmedetomidine HCl 200 mcg/ (Sodium Chloride) 50 mls @ 4.31 mls/hr IV TITR PRN; Protocol PRN Reason: Agitation Last Admin: 08/03/18 03:00 Dose: 0.1 mcg/kg/hr, 2.15 mls/hr Methylprednisolone (Solu-Medrol) 40 mg IVP DAILY KACY Metolazone (Zaroxolyn) 5 mg PO DAILY [facility] Last Admin: 08/02/18 11:00 Dose: 5 mg Metronidazole (Flagyl) 500 mg PO Q8 [facility]; Protocol Last Admin: 08/03/18 06:13 Dose: 500 mg Pantoprazole Sodium (Protonix Ec Tab) 40 mg PO Q12 [facility] Last Admin: 08/02/18 22:25 Dose: 40 mg - Labs Labs: 08/03/18 06:52 08/03/18 06:54 PT 17.7 SECONDS (9.7-12.2) H D 07/30/18 06:11 INR 1.6 D 07/30/18 06:11 APTT 51 SECONDS (21-34) H D 08/03/18 06:52 - Constitutional Appears: In Acute Distress, Chronically Ill - Head Exam Head Exam: NORMAL INSPECTION - Eye Exam Eye Exam: Normal appearance - ENT Exam ENT Exam: Mucous Membranes Moist - Neck Exam Neck Exam: Full ROM - Respiratory Exam Respiratory Exam: Clear to Ausculation Bilateral. absent: Respiratory Distress, NORMAL BREATHING PATTERN (on BIPAP) - Cardiovascular Exam Cardiovascular Exam: REGULAR RHYTHM - GI/Abdominal Exam GI & Abdominal Exam: Soft, Normal Bowel Sounds - Exam Exam: NORMAL INSPECTION - Extremities Exam Extremities Exam: Full ROM - Back Exam Back Exam: NORMAL INSPECTION - Neurological Exam Neurological Exam: Alert - Psychiatric Exam Psychiatric exam: Normal Mood - Skin Skin Exam: Dry, Intact, Normal Color Assessment and Plan - Assessment and Plan (Free Text) Assessment: This is a 48 year old [place] female patient with past medical history of anxiety who presented with worsening shortness of breath and syncope. Patient was found to be in atrial fibrillation and subsequently went into cardiac arrest while in the hospital with ACLS protocol being initiated. CTA of the chest showed bilateral pulmonary emboli while US of the duplex US of the lower extremities showed occlusive thrombus in the left common femoral vein with severe reduction of venous return. Currently, patient is intubated on maximal oxygen flow in the ICU on three vasopressors, heparin drip, broad spectrum antibiotics with underlying severe acidosis along with being anuric. Nephrology was consulted for acute renal failure in the setting of anuria and septic shock. Now she is extubated on BIPAP off pressors. She is getting dialysis,passing about a liter urine /day. On Heparin drip. Her blood and urine cultures were negative. Plan: 1. Acute Hypercapnic Respiratory Failure from Bilateral Pulmonary Embolism Today she is doing ok on BIPAP Getting dialysis off pressors on heparin drip for DVT/PE Chest x ray done yesterday shows patchy infiltrate on right upper and left mid and lower lobes Has wbc 19.8,Hb 9.4 and her platelets are 85. Chest CT shows extensive bilateral lower lobe proximal PE, smaller emboli within upper lobes and middle lobe, cardiomegaly - Venous dopplers show DVT in left common femoral vein - ECHO shows LVEF 73%, diastolic dysfunction, mild-mod dilated RV 2. Renal failure - acute kidney injury / ATN Today is her 3rd hemodialysis. D/W Dr Henson nephrology Urine out put 3. Sepsis / DIC / Abdominal Pain continue cefepime and flagyl . Has leukocytosis,no fever,blood and urine cultures were negative chest x ray with infiltrate Her LFT is improving Abd/pelvis CT shows mild ileus, questionable enteritis, postoperative changes of stomach FOBT positive. C.diff, salmonella, shigella, campylobacter negative. Abd U/S shows cholecystitis, hold off on cholecystostomy for now as patient is clinically improving 4. Atrial Fibrillation with RVR - now NSR Ab secondary to the bilateral PEs, they asked IR to evaluate however she was not a candidate for direct catheter thrombolysis Patient on heparin drip 5. Prophylaxis DVT on heparin GI on protonix diet-soft
[2018-08-03] MEDS: Albumin Human 25% (12.5 gm/50 ml) IV SCH ×4 (10:00→15:27)
[2018-08-03] MEDS ORDERED: MethylPREDNISolone 40 mg Vial IVP SCH ×2 (10:00→11:15)
[2018-08-03] MEDS: Pantoprazole 40 mg EC Tab PO SCH ×2 (14:00→21:21)
[2018-08-03] MEDS: metOLazone 5 MG TAB PO SCH (14:00)
--- NOTE | 2018-08-03 15:24 | CP.CCUPN ---
CCU Subjective - Physician Review Subjective (Free Text): Resident Critical Care Progress Note Patient examined at bedside. Patient is s/p extubation and currently saturating well on bipap. States she has discomfort in her throat. s/p dialysis catheter placement in right IJ, received HD today. Critical Care Time Spent (in minutes): 35 CCU Objective - Vital Signs / Intake & Output Vital Signs (Last 4 hours): Vital Signs Temp Pulse Pulse Resp BP BP Pulse Ox 08/03/18 13:30 97.6 F 71 71 20 122/76 100 08/03/18 13:18 71 24 122/76 100 08/03/18 13:03 66 23 124/77 100 08/03/18 13:00 67 66 24 121/64 100 08/03/18 12:48 74 20 121/64 99 08/03/18 12:33 76 18 122/67 100 08/03/18 12:30 70 18 122/67 100 08/03/18 12:18 70 20 127/73 100 08/03/18 12:03 69 22 124/74 100 08/03/18 12:00 98.7 F 68 68 22 124/74 100 08/03/18 11:48 69 19 126/77 99 08/03/18 11:33 76 18 133/73 100 08/03/18 11:30 73 20 133/73 100 Intake and Output (Last 8hrs): Intake & Output 08/03/18 08/03/18 08/03/18 06:59 14:59 22:59 Intake Total 368.0 486.4 Output Total 285 3240 Balance 83.0 -2753.6 Weight 189 lb 3.2 oz Intake: IV 50.0 Intake, IV Amount 143.0 86.4 Left Distal Port Internal 69.6 69.6 Jugular Left Medial Port Internal 23.4 16.8 Jugular Left Proximal Port 50 Internal Jugular Oral 175 400 Output: Urine 285 240 Urethral (Becerril) 285 240 Other 3000 - Physical Exam Head: Positive for: Normocephalic, Ecchymosis Pupils: Positive for: PERRL Extroacular Muscles: Positive for: EOMI Conjunctiva: Positive for: Normal Mouth: Positive for: Dry Pharnyx: Positive for: Other (ett in place) Neck: Positive for: Normal Range of Motion, Trachea Midline Respiratory/Chest: Positive for: Good Air Exchange, Decreased Breath Sounds Cardiovascular: Positive for: Regular Rate and Rhythm, Normal S1, S2 Abdomen: Positive for: Tenderness (mild tenderness in right upper quadrant ) Upper Extremity: Positive for: Other (ecchymosis surrounding IV sites ). Negative for: Cyanosis Lower Extremity: Positive for: Edema. Negative for: CALF TENDERNESS, Temp erature Abnormalties Neurological: Positive for: GCS=15, CN II-XII Intact Skin: Positive for: Warm, Dry, Normal Color Psychiatric: Positive for: Alert, Oriented x 3, Normal Insight, Anxious - Medications Active Medications: Active Medications Generic Name Dose Route Start Last Admin Trade Name Freq PRN Reason Stop Dose Admin Albuterol/Ipratropium 3 ml 07/31/18 20:00 08/03/18 13:30 Duoneb 3 Mg/0.5 Mg (3 Ml) Ud INH 3 ml RQ6 KACY Administration Heparin Sodium/Sodium Chloride 25,000 units in 250 mls @ 12.247 mls/hr 07/27/18 07:09 08/02/18 11:25 Heparin 46706 Units/250ml 1/2 Normal Saline IV 12 units/kg/hr .[id number] PRN 8.709 mls/hr ADJUST RATE PER PROTOCOL Administration Protocol 16.875 UNITS/KG/HR Cefepime HCl 1 gm in 50 mls @ 100 mls/hr 07/31/18 14:00 08/03/18 01:44 Maxipime Iv 1 Gm Premix IVPB 100 mls/hr Q12H KACY Administration Protocol Dexmedetomidine HCl 200 mcg/ 50 mls @ 4.31 mls/hr 08/01/18 22:25 08/03/18 03:00 Sodium Chloride IV 0.1 mcg/kg/hr TITR PRN 2.15 mls/hr Agitation Administration Protocol 0.2 MCG/KG/HR Methylprednisolone 20 mg 08/03/18 11:15 Solu-Medrol IVP 08/05/18 10:01 DAILY KACY Metolazone 5 mg 08/01/18 10:00 08/02/18 11:00 Zaroxolyn PO 5 mg DAILY KACY Administration Metronidazole 500 mg 07/31/18 14:00 08/03/18 06:13 Flagyl PO 500 mg Q8 KACY Administration Protocol Pantoprazole Sodium 40 mg 08/02/18 10:00 10/07/18 22:25 Protonix Ec Tab PO 40 mg Q12 KACY Administration - Patient Studies Lab Studies: Microbiology Studies 08/02/18 17:46 Ova and Parasite Concentrate Exam - Final Stool Lab Studies 08/03/18 08/03/18 08/03/18 Range/Units 06:54 06:52 06:52 WBC 19.8 H (4.8-10.8) K/uL RBC 3.39 L (3.80-5.20) Mil/uL Hgb 9.4 L (11.0-16.0) g/dL Hct 27.7 L (34.0-47.0) % MCV 81.7 (81.0-99.0) fL MCH 27.6 (27.0-31.0) pg MCHC 33.8 (33.0-37.0) g/dL RDW 16.1 H (11.5-14.5) % Plt Count 85 L (130-400) K/uL MPV 12.2 H (7.2-11.7) fL Neut % (Auto) 91.6 H (50.0-75.0) % Lymph % (Auto) 3.4 L (20.0-40.0) % Lamar % (Auto) 4.8 (0.0-10.0) % Eos % (Auto) 0.1 (0.0-4.0) % Baso % (Auto) 0.1 (0.0-2.0) % Neut # (Auto) 18.1 H (1.8-7.0) K/uL Lymph # (Auto) 0.7 L (1.0-4.3) K/uL Lamar # (Auto) 1.0 H (0.0-0.8) K/uL Eos # (Auto) 0.0 (0.0-0.7) K/uL Baso # (Auto) 0.0 (0.0-0.2) K/uL Neutrophils % (Manual) 97 H (50-75) % Lymphocytes % (Manual) 2 L (20-40) % Monocytes % (Manual) 1 (0-10) % Nucleated RBC % 3 H (0-0) % Platelet Estimate Decreased L (NORMAL) Polychromasia Slight Hypochromasia (manual) Slight Anisocytosis (manual) Slight Kya Cells Slight APTT 51 H D (21-34) SECONDS Sodium 143 (132-148) mmol/L Potassium 3.7 (3.6-5.2) mmol/L Chloride 105 (98-107) mmol/L Carbon Dioxide 21 L (22-30) mmol/L Anion Gap 21 H (10-20) BUN 66 H (7-17) mg/dL Creatinine 4.7 H (0.7-1.2) mg/dL Est GFR ( Amer) 12 Est GFR (Non-Af Amer) 10 Random Glucose 204 H (65-105) mg/dL Calcium 8.9 (8.6-10.4) mg/dl Phosphorus 4.6 H (2.5-4.5) mg/dL Magnesium 2.2 (1.6-2.3) mg/dL Total Bilirubin 1.1 (0.2-1.3) mg/dL AST 58 H D (14-36) U/L ALT 145 H D (9-52) U/L Alkaline Phosphatase 82 (38-126) U/L Total Protein 5.6 L (6.3-8.3) g/dL Albumin 3.5 (3.5-5.0) g/dL Globulin 2.2 (2.2-3.9) gm/dL Albumin/Globulin Ratio 1.6 (1.0-2.1) Laboratory Results - last 24 hr 08/03/18 08/03/18 08/03/18 06:52 06:52 06:54 WBC 19.8 H RBC 3.39 L Hgb 9.4 L Hct 27.7 L MCV 81.7 MCH 27.6 MCHC 33.8 RDW 16.1 H Plt Count 85 L MPV 12.2 H Neut % (Auto) 91.6 H Lymph % (Auto) 3.4 L Lamar % (Auto) 4.8 Eos % (Auto) 0.1 Baso % (Auto) 0.1 Neut # (Auto) 18.1 H Lymph # (Auto) 0.7 L Lamar # (Auto) 1.0 H Eos # (Auto) 0.0 Baso # (Auto) 0.0 Neutrophils % (Manual) 97 H Lymphocytes % (Manual) 2 L Monocytes % (Manual) 1 Nucleated RBC % 3 H Platelet Estimate Decreased L Polychromasia Slight Hypochromasia (manual) Slight Anisocytosis (manual) Slight [place] Cells Slight APTT 51 H D Sodium 143 Potassium 3.7 Chloride 105 Carbon Dioxide 21 L Anion Gap 21 H BUN 66 H Creatinine 4.7 H Est GFR ( Amer) 12 Est GFR (Non-Af Amer) 10 Random Glucose 204 H Calcium 8.9 Phosphorus 4.6 H Magnesium 2.2 Total Bilirubin 1.1 AST 58 H D ALT 145 H D Alkaline Phosphatase 82 Total Protein 5.6 L Albumin 3.5 Globulin 2.2 Albumin/Globulin Ratio 1.6 Fingerstick Blood Sugar Results: 288 Review of Systems - Review of Systems All systems: reviewed and no additional remarkable complaints except (as stated in HPI) Critical Care Progress Note - Nutrition Nutrition: Nutrition Category Date Time Status Mechanically altered [Dysphagia/Modified Consistency Diets 08/01/18 Dinner Active Diet] [DIET] Assessment/Plan - Assessment and Plan (Free Text) Assessment: Patient is a 48 year old female with past medical history of anxiety presenting to ED with shortness of breath, syncope, and chest pain, went into cardiac arrest, was intubated and found to have bilateral PE and septic shock. Extubated 08/01. Plan: Neuro: - Alert, following commands - Head CT shows no acute intracranial abnormality, left forehead soft tissue swelling Pulm: - s/p extubation - CXR this AM shows mild pulmonary venous congestive changes with patchy more discrete opacities in left mid to lower lung field with suspected small effusion, patchy infiltrates in RUL and right perihilar region - maintain SPO2> 92 % - Duonebs 3 ml INH RQ6 - pulmonary edema to improve with fluid removal via dialysis - Followup chest CT to evaluate for effusions CV: - Chest CT shows extensive bilateral lower lobe proximal PE, smaller emboli within upper lobes and middle lobe, cardiomegaly - Venous dopplers show DVT in left common femoral vein - ECHO shows LVEF 73%, diastolic dysfunction, mild-mod dilated RV GI: - Abd/pelvis CT shows mild ileus, questionable enteritis, postoperative changes of stomach - Diarrhea noted. FOBT positive. C.diff, salmonella, shigella, campylobacter negative. - Procal >200 - Protonix 40 mg IV Q12 - Abd U/S shows cholecystitis, hold off on cholecystostomy for now as patient is clinically improving - Transaminitis resolving Renal: - BRIAN, Cr uptrending - oliguric - dialyzed with 3L removal on (08/01) and 4L fluid removal (08/02) - 3000 mL UF from dialysis today Endo: - maintain euglycemia with blood sugars 140-180 Heme: - heparin drip low dose - Heme/onc consulted. Appreciate recs. - No need for IVC filter, patient's bleeding risk has decreased, and is tolerating heparin drip, will transition to oral a/c once completely stable and no further interventions planned. ID: - Flagyl 500 mg Q8H, Cefepime 1 gm Q12H for enterocolitis Dispo: ICU, s/p extubation Access: central line, peripheral IVs, dialysis cath Consults: Cardio, Neuro PPX: Protonix for GI, SCDs contraindicated d/t DVT Patient seen, reviewed, and discussed with attending, Dr. Narinder Chowdary PGY-1 - Date & Time Date: 08/03/18 Time: 08:00
[2018-08-03] MEDS: Heparin25000 units/250ml 1/2NS 25,000 UNITS/250 ML BAG IV PRN (15:30)
--- NOTE | 2018-08-03 21:32 | CP.PCM.PN ---
Subjective - Date & Time of Evaluation Date of Evaluation: 08/03/18 Time of Evaluation: 12:00 - Subjective Subjective: Patient's breathing improved; tolerating UF on HD; Objective - Vital Signs/Intake and Output Vital Signs (last 24 hours): Temp Pulse Resp BP Pulse Ox 98.7 F 79 17 127/77 96 08/03/18 16:00 08/03/18 19:18 08/03/18 19:18 08/03/18 19:18 08/03/18 18:00 Intake and Output: 08/03/18 08/04/18 18:59 06:59 Intake Total 1279.6 10.8 Output Total 3360 30 Balance -2080.4 -19.2 - Medications Medications: Current Medications Albuterol/Ipratropium (Duoneb 3 Mg/0.5 Mg (3 Ml) Ud) 3 ml INH RQ6 KACY Last Admin: 08/03/18 20:43 Dose: 3 ml Heparin Sodium/Sodium Chloride (Heparin 37691 Units/250ml 1/2 Normal Saline) 25,000 units in 250 mls @ 12.247 mls/hr IV .[id number] PRN; Protocol PRN Reason: ADJUST RATE PER PROTOCOL Last Admin: 08/03/18 15:30 Dose: 12 units/kg/hr, 8.709 mls/hr Cefepime HCl (Maxipime Iv 1 Gm Premix) 1 gm in 50 mls @ 100 mls/hr IVPB Q12H KACY; Protocol Last Admin: 08/03/18 14:00 Dose: 100 mls/hr Dexmedetomidine HCl 200 mcg/ (Sodium Chloride) 50 mls @ 4.31 mls/hr IV TITR PRN; Protocol PRN Reason: Agitation Last Admin: 08/03/18 03:00 Dose: 0.1 mcg/kg/hr, 2.15 mls/hr Methylprednisolone (Solu-Medrol) 20 mg IVP DAILY KACY Stop: 08/05/18 10:01 Metolazone (Zaroxolyn) 5 mg PO DAILY KACY Last Admin: 08/03/18 14:00 Dose: 5 mg Metronidazole (Flagyl) 500 mg PO Q8 KACY; Protocol Last Admin: 08/03/18 21:22 Dose: 500 mg Pantoprazole Sodium (Protonix Ec Tab) 40 mg PO Q12 KACY Last Admin: 08/03/18 21:21 Dose: 40 mg - Labs Labs: 08/03/18 06:52 08/03/18 06:54 PT 17.7 SECONDS (9.7-12.2) H D 07/30/18 06:11 INR 1.6 D 07/30/18 06:11 APTT 51 SECONDS (21-34) H D 08/03/18 06:52 - Constitutional Appears: Non-toxic, No Acute Distress - Respiratory Exam Respiratory Exam: Rhonchi. absent: Respiratory Distress - Cardiovascular Exam Cardiovascular Exam: +S1, +S2. absent: Gallop, Rubs - GI/Abdominal Exam GI & Abdominal Exam: Soft, Tenderness. absent: Distended - Extremities Exam Additional comments: edematous legs; - Neurological Exam Neurological Exam: Alert, Awake - Psychiatric Exam Psychiatric exam: absent: Agitated - Skin Skin Exam: Warm. absent: Cyanosis Assessment and Plan (1) Acute renal failure Assessment & Plan: ATN, now non-oliguric renal failure; stable electrolyte status; getting HD for 3rd straight day for UF, has tolerated it well; plan to hold HD tomorrow and re- assess; Status: Acute (2) Acute respiratory failure with hypoxemia Assessment & Plan: Much improved; may still have effusions on CXR; awaiting chest CT; Status: Acute (3) Hypocalcemia Status: Acute (4) Metabolic acidosis Status: Resolved
[2018-08-04] MEDS: Cefepime IV 1 gm in Dextrose 1 GM/50 ML BAG IVPB SCH (01:27)
[2018-08-04] MEDS: Albuterol-Ipratrop 3 mg / 0.5 (3 ml) UD INH SCH ×4 (02:51→20:18)
[2018-08-04 05:54] LABS: BASO % 0.2 % (0.0-2.0); EOS # 0.2 K/uL (0.0-0.7); EOS % 0.8 % (0.0-4.0); HEMOGLOBIN 9.4 g/dL (11.0-16.0); LYMPH # 1.2 K/uL (1.0-4.3); LYMPH % 5.8 % (20.0-40.0); MEAN CORPUSCULAR HEMOGLOBIN 27.5 pg (27.0-31.0); MEAN CORPUSCULAR HGB CONC 33.1 g/dL (33.0-37.0); MEAN PLATELET VOLUME 11.4 fL (7.2-11.7); MONO # 1.1 K/uL (0.0-0.8); MONO % 5.5 % (0.0-10.0); NEUT # 17.7 K/uL (1.8-7.0); NEUT % 87.7 % (50.0-75.0); NRBC % 0.3 % (0.0-2.0); PLATELET COUNT 90 K/uL (130-400); RBC 3.41 Mil/uL (3.80-5.20); RED CELL DISTRIBUTION WIDTH 16.1 % (11.5-14.5); WHITE BLOOD COUNT 20.1 K/uL (4.8-10.8)
[2018-08-04 06:25] LABS: ALB/GLOB RATIO 1.4 (1.0-2.1); ALBUMIN 3.3 g/dL (3.5-5.0); CALCIUM 8.8 mg/dl (8.6-10.4)
--- NOTE | 2018-08-04 08:06 | CP.PCM.PN ---
Subjective - Date & Time of Evaluation Date of Evaluation: 08/04/18 Time of Evaluation: 08:00 - Subjective Subjective: Cardiology Progress Note Airam Rasmussen, PGY1 note for Dr. Ba Patient seen and examined at bedside this morning. No acute events overnight. Discontinued precedex drip today. On heparin drip. Awake and alert, responding to questions. Tolerating bipap well without complaint. S/p thrid HD yesterday, 3L removed. Objective - Vital Signs/Intake and Output Vital Signs (last 24 hours): Temp Pulse Resp BP Pulse Ox 97.6 F 80 28 H 133/79 99 08/04/18 04:00 08/04/18 07:10 08/04/18 07:10 08/04/18 07:10 08/04/18 07:10 Intake and Output: 08/04/18 08/04/18 06:59 18:59 Intake Total 380.7 10.9 Output Total 390 70 Balance -9.3 -59.1 - Medications Medications: Current Medications Albuterol/Ipratropium (Duoneb 3 Mg/0.5 Mg (3 Ml) Ud) 3 ml INH RQ6 KACY Last Admin: 08/04/18 02:51 Dose: 3 ml Heparin Sodium/Sodium Chloride (Heparin 80362 Units/250ml 1/2 Normal Saline) 25,000 units in 250 mls @ 12.247 mls/hr IV .[id number] PRN; Protocol PRN Reason: ADJUST RATE PER PROTOCOL Last Admin: 08/03/18 15:30 Dose: 12 units/kg/hr, 8.709 mls/hr Cefepime HCl (Maxipime Iv 1 Gm Premix) 1 gm in 50 mls @ 100 mls/hr IVPB Q12H KACY; Protocol Last Admin: 08/04/18 01:27 Dose: 100 mls/hr Dexmedetomidine HCl 200 mcg/ (Sodium Chloride) 50 mls @ 4.31 mls/hr IV TITR PRN; Protocol PRN Reason: Agitation Last Admin: 08/03/18 23:30 Dose: 0.1 mcg/kg/hr, 2.15 mls/hr Methylprednisolone (Solu-Medrol) 20 mg IVP DAILY KACY Stop: 08/05/18 10:01 Metolazone (Zaroxolyn) 5 mg PO DAILY KACY Last Admin: 08/03/18 14:00 Dose: 5 mg Metronidazole (Flagyl) 500 mg PO Q8 [facility]; Protocol Last Admin: 08/04/18 06:46 Dose: 500 mg Pantoprazole Sodium (Protonix Ec Tab) 40 mg PO Q12 [facility]CLUDES [facility] Last Admin: 08/03/18 21:21 Dose: 40 mg - Labs Labs: 08/04/18 05:48 08/04/18 05:49 PT 17.7 SECONDS (9.7-12.2) H D 07/30/18 06:11 INR 1.6 D 07/30/18 06:11 APTT 49 SECONDS (21-34) H 08/04/18 05:48 - Constitutional Appears: No Acute Distress - Head Exam Head Exam: NORMAL INSPECTION - Eye Exam Eye Exam: EOMI Pupil Exam: PERRL - ENT Exam ENT Exam: Mucous Membranes Moist - Respiratory Exam Respiratory Exam: absent: Wheezes, Respiratory Distress - Cardiovascular Exam Cardiovascular Exam: REGULAR RHYTHM, +S1, +S2 - GI/Abdominal Exam GI & Abdominal Exam: Normal Bowel Sounds. absent: Guarding - Extremities Exam Extremities Exam: Normal Inspection. absent: Calf Tenderness - Neurological Exam Neurological Exam: Alert, Awake - Skin Skin Exam: Normal Color, Warm Additional comments: ecchymosis appreciated on right arm, left facial area Assessment and Plan - Assessment and Plan (Free Text) Assessment: This is a 48 year old female with PMH of anxiety presenting to the ED s/p witnessed syncopal episode after return from [place] on bus. Plan: B/L P.E. -Chest CT reviewed -continue heparin drip, stopped preceded drip today -s/p HD yesterday with 3L removed -echo showed LVEF 50-55%, mild to moderate TR and pulmonary hypertension -no need for IVC filter at this time -will not do EKOS at this time due to unknown status of prothrombotic state -CTA showed diffuse bilateral pulmonary emboli of B/L central and segmental pulmonary arteries, pulmonary venous congestion compatible with CHF vs left basilar atelectasis vs pulmonary infarct -D-dimer > 5250, PT/INR/PTT elevated, elevated fibrinogen products -s/p respiratory arrest, ACLS performed -LE duplex shows left acute thrombosis of the left common femoral vein Afib -EKG on admission showed afib with RVR at 146bpm, uncertain if new finding Case discussed with attending, further recommendations per Dr. Ba
[2018-08-04 08:27] LABS: LYMPHOCYTE 4 % (20-40); MONOCYTE 3 % (0-10); NEUTROPHIL 93 % (50-75); PLATELET ESTIMATE DECREASED (NORMAL); TOTAL CELLS COUNTED 100
[2018-08-04 08:28] LABS: ANISOCYTOSIS SLIGHT; HYPOCHROMIC SLIGHT; POLYCHROMIC SLIGHT
--- NOTE | 2018-08-04 08:54 | CP.PCM.PN ---
Subjective - Date & Time of Evaluation Date of Evaluation: 08/04/18 Time of Evaluation: 08:25 - Subjective Subjective: Seen and examined this morning. Patient was on BIPAP last night and this morning. Later she was on the chair,tolerating ,saturating 96% on 3l NC On Heparin drip,off precedex Urine out put 750ml No plan for dialysis today Objective - Vital Signs/Intake and Output Vital Signs (last 24 hours): Temp Pulse Resp BP Pulse Ox 98.0 F 74 21 114/62 100 08/04/18 08:00 08/04/18 08:12 08/04/18 08:10 08/04/18 08:10 08/04/18 08:10 Intake and Output: 08/04/18 08/04/18 06:59 18:59 Intake Total 380.7 10.9 Output Total 390 70 Balance -9.3 -59.1 - Medications Medications: Current Medications Albuterol/Ipratropium (Duoneb 3 Mg/0.5 Mg (3 Ml) Ud) 3 ml INH RQ6 KACY Last Admin: 08/04/18 08:11 Dose: 3 ml Heparin Sodium/Sodium Chloride (Heparin 96901 Units/250ml 1/2 Normal Saline) 25,000 units in 250 mls @ 12.247 mls/hr IV .[id number] PRN; Protocol PRN Reason: ADJUST RATE PER PROTOCOL Last Admin: 08/03/18 15:30 Dose: 12 units/kg/hr, 8.709 mls/hr Cefepime HCl (Maxipime Iv 1 Gm Premix) 1 gm in 50 mls @ 100 mls/hr IVPB Q12H KACY; Protocol Last Admin: 08/04/18 01:27 Dose: 100 mls/hr Dexmedetomidine HCl 200 mcg/ (Sodium Chloride) 50 mls @ 4.31 mls/hr IV TITR PRN; Protocol PRN Reason: Agitation Last Admin: 08/03/18 23:30 Dose: 0.1 mcg/kg/hr, 2.15 mls/hr Potassium Chloride (Potassium Chloride 20 Meq/100 Ml) 20 meq in 100 mls @ 50 mls/hr IVPB Q2H KACY Stop: 08/04/18 12:14 Methylprednisolone (Solu-Medrol) 20 mg IVP DAILY KACY Stop: 08/05/18 10:01 Metolazone (Zaroxolyn) 5 mg PO DAILY [facility] Last Admin: 08/03/18 14:00 Dose: 5 mg Metronidazole (Flagyl) 500 mg PO Q8 [facility]; Protocol Last Admin: 08/04/18 06:46 Dose: 500 mg Pantoprazole Sodium (Protonix Ec Tab) 40 mg PO Q12 [facility] Last Admin: 08/03/18 21:21 Dose: 40 mg - Labs Labs: 08/04/18 05:48 08/04/18 05:49 PT 17.7 SECONDS (9.7-12.2) H D 07/30/18 06:11 INR 1.6 D 07/30/18 06:11 APTT 49 SECONDS (21-34) H 08/04/18 05:48 Assessment and Plan - Assessment and Plan (Free Text) Assessment: This is a 48 year old [place] female patient with past medical history of anxiety who presented with worsening shortness of breath and syncope. Patient was found to be in atrial fibrillation and subsequently went into cardiac arrest while in the hospital with ACLS protocol being initiated. CTA of the chest showed bilateral pulmonary emboli while US of the duplex US of the lower extremities showed occlusive thrombus in the left common femoral vein with severe reduction of venous return. Currently, patient is intubated on maximal oxygen flow in the ICU on three vasopressors, heparin drip, broad spectrum antibiotics with underlying severe acidosis along with being anuric. Nephrology was consulted for acute renal failure in the setting of anuria and septic shock. Now she is extubated on BIPAP off pressors. She is getting dialysis,passing about a liter urine /day. On Heparin drip. Her blood and urine cultures were negative. Plan: 1. Acute Hypercapnic Respiratory Failure from Bilateral Pulmonary Embolism Improving sitting on chair ,saturating good on 3 liter NC on heparin drip for DVT/PE Chest x ray shows patchy infiltrate on right upper and left mid and lower lobes d/w Dr Vasquez and DR Henson about starting on oral anticoagulation Patient doesn't have insurance ,NOAC are expensive,Has positive stool OB,s/p hematuria,h/o menorrhagia ?Coumadin is a better choice.We will start Coumadin tonight,follow INR,continue heparin until get two days of therapeutic INR. Goal INR 2 -[address] shows extensive bilateral lower lobe proximal PE, smaller emboli within upper lobes and middle lobe, cardiomegaly - Venous dopplers show DVT in left common femoral vein - ECHO shows LVEF 73%, diastolic dysfunction, mild-mod dilated RV 2. Renal failure - acute kidney injury / ATN D/W Dr Henson nephrology Monitor creatinine and urine out put no plan for dialysis 3. Sepsis / DIC / Abdominal Pain continue cefepime and flagyl . d/w DR Slater today. we will continue antibiotics Has leukocytosis,no fever,blood and urine cultures were negative chest x ray with infiltrate Her LFT is improving Abd/pelvis CT shows mild ileum, questionable enteritis, postoperative changes of stomach Patient needs out patient GI work up to r/o malignancy FOBT positive. C.diff, salmonella, shigella, campylobacter negative. Abd U/S shows cholecystitis, hold off on cholecystostomy for now as patient is clinically improving 4. Atrial Fibrillation with RVR - now NSR [place] secondary to the bilateral PEs, they asked IR to evaluate however she was not a candidate for direct catheter thrombolysis Patient on heparin drip,start Coumadin 5. Prophylaxis DVT on heparin GI on protonix diet-soft
[2018-08-04] MEDS: Pantoprazole 40 mg EC Tab PO SCH ×2 (09:17→22:28)
[2018-08-04] MEDS: metOLazone 5 MG TAB PO SCH (09:19)
--- NOTE | 2018-08-04 11:50 | CT ---
Date of service: 08/03/18 CT chest without IV contrast Indication: Evaluate effusion Technique: Contiguous axial images were obtained through the chest without intravenous contrast enhancement. Sagittal and coronal reconstructions were generated and reviewed. This CT exam was performed using 1 or more of the following dose reduction techniques: Automated exposure control, adjustment of the MAA and/or kV according to patient size, and/or use of iterative reconstruction technique. Radiation dose (DLP): 606.38 MGy-cm. Comparison: CT chest without contrast performed 07/27/18, chest x-ray performed 08/02/18 Findings: Left IJ approach central venous catheter extends to the right atrium. Right IJ approach central venous catheter extends to the IVC. Visualized portions of the inferior thyroid gland appear unremarkable. The mediastinal and hilar vascular structures appear within normal limits. Cardiomegaly. Multifocal consolidations greatest within the right upper and left lower lobes most consistent with pneumonia. Atelectasis or infarction cannot be excluded. Small bilateral pleural effusions. No pneumothorax. Limited visualization of the noncontrast upper abdomen; postsurgical gastric changes. High density material within the gallbladder, possibly related to sludge. Bilateral breast prostheses. Degenerative changes of the spine. Impression: Evidence of multifocal pneumonia. Component of atelectasis or pulmonary infarction may be considered. Correlate clinically and recommend follow-up upon completion of treatment for acute symptoms in order to assess for complete resolution. Small bilateral pleural effusions. Bilateral IJ approach central venous catheters as above. Right-sided central venous catheter extends to the IVC. Left-sided central venous catheter extends to the right atrium. Suggest repositioning; correlate clinically. High density material within the gallbladder, possibly related to sludge. Preliminary impression was provided by [employer].
--- NOTE | 2018-08-04 14:19 | CP.PCM.PN ---
<Phylicia Salgado - Last Filed: 08/04/18 14:11> Subjective - Date & Time of Evaluation Date of Evaluation: 08/04/18 Time of Evaluation: 08:00 - Subjective Subjective: Nephrology Progress Note for Dr. Henson Patient was seen and examined at bedside in the AM. Patient stated she still felt like something was weight down on her chest making it sometimes difficult to breath. She states she did eat some of her breakfast and is requesting more fruits. Patient states she did get out of bed to chair yesterday and will be doing the same today. Patient was reevaluated in the afternoon and states she was able to move out of bed to chair and she also did take a few steps. She was given a spirometer and has started to use it every hour. Objective - Vital Signs/Intake and Output Vital Signs (last 24 hours): Temp Pulse Resp BP Pulse Ox 98.2 F 74 20 128/77 97 08/04/18 12:00 08/04/18 12:00 08/04/18 12:00 08/04/18 11:10 08/04/18 12:00 Intake and Output: 08/04/18 08/04/18 06:59 18:59 Intake Total 380.7 306.8 Output Total 390 220 Balance -9.3 86.8 - Medications Medications: Current Medications Albuterol/Ipratropium (Duoneb 3 Mg/0.5 Mg (3 Ml) Ud) 3 ml INH RQ6 [facility] Last Admin: 08/04/18 13:21 Dose: 3 ml Alprazolam (Xanax) 0.25 mg PO TID PRN PRN Reason: Anxiety Stop: 08/11/18 09:01 Heparin Sodium/Sodium Chloride (Heparin 25268 Units/250ml 1/2 Normal Saline) 25,000 units in 250 mls @ 12.247 mls/hr IV .[id number] PRN; Protocol PRN Reason: ADJUST RATE PER PROTOCOL Last Admin: 08/03/18 15:30 Dose: 12 units/kg/hr, 8.709 mls/hr Cefepime HCl 1 gm/ Sodium (Chloride) 100 mls @ 100 mls/hr IVPB Q24H [facility]; Protocol Methylprednisolone (Solu-Medrol) 20 mg IVP DAILY [facility] Stop: 08/05/18 10:01 Last Admin: 08/04/18 09:17 Dose: 20 mg Metolazone (Zaroxolyn) 5 mg PO DAILY [facility] Last Admin: 08/04/18 09:19 Dose: 5 mg Metronidazole (Flagyl) 500 mg PO Q8 [facility]; Protocol Last Admin: 08/04/18 06:46 Dose: 500 mg Pantoprazole Sodium (Protonix Ec Tab) 40 mg PO Q12 [facility] Last Admin: 08/04/18 09:17 Dose: 40 mg - Labs Labs: 08/04/18 05:48 08/04/18 05:49 PT 17.7 SECONDS (9.7-12.2) H D 07/30/18 06:11 INR 1.6 D 07/30/18 06:11 APTT 49 SECONDS (21-34) H 08/04/18 05:48 - Constitutional Appears: No Acute Distress - Eye Exam Eye Exam: EOMI, Normal appearance - Respiratory Exam Respiratory Exam: Decreased Breath Sounds (RLL), Wheezes, NORMAL BREATHING PATTERN - Cardiovascular Exam Cardiovascular Exam: REGULAR RHYTHM, +S1, +S2 - GI/Abdominal Exam GI & Abdominal Exam: Soft. absent: Tenderness - Extremities Exam Extremities Exam: absent: Tenderness - Neurological Exam Neurological Exam: Alert, Awake, Oriented x3 - Skin Skin Exam: Abrasion (hematoma above left eye) Assessment and Plan - Assessment and Plan (Free Text) Assessment: 48 year old female with a past medical history of anxiety, possible UTI, on OCP who presented to [facility] after a syncopal episode at home and found to be in atrial fibrillation and was given cardizem and morphine. Patient then went into respiratory stress with bradycardia. ACLS protocol was initiated. Patient was intubated and ICU was consulted. Labs revealed a severe metabolic lactic acidosis, acute hypoxemic respiratory failure, and leukocytosis of 39,000 with 23 % bands despite being given fluids and CTA showed diffuse bilateral PE while duplex US of the LE showed an occlusive thrombus in the left common femoral vein. Acute renal failure secondary to septic shock - s/p Dialysis 08/01-08/03 about 8L total removed - No dialysis 08/04/18 will monitor Cr to monitor for kidney function improvement Pneumonia - Chest CT (08/03/18): Evidence of multifocal pneumonia - Continue Cefepime 1gm q24h B/L PE - CTA showed diffuse bilateral pulmonary emboli of B/L central and segmental pulmonary arteries, pulmonary venous congestion compatible with CHF vs left basilar atelectasis vs pulmonary infarct - D-dimer > 5250, PT/INR/PTT elevated, elevated fibrinogen products - Continue heparin drip - Echo showed LVEF 50-55%, mild to moderate TR and pulmonary hypertension Afib - EKG on admission showed afib with RVR at 146bpm - Continue Heparin drip Hypocalcemia in a critically ill patient - Corrected Ca is 6.9 - 2 grams of Calcium Gluconate given - Ca is stable 8.8 - continue to monitor Case discussed with Dr. Natividad Salgado PGY-2 <Pato Henson - Last Filed: 08/05/18 08:35> Objective - Vital Signs/Intake and Output Vital Signs (last 24 hours): Temp Pulse Resp BP Pulse Ox 97.8 F 77 21 122/66 100 08/05/18 04:00 08/05/18 06:10 08/05/18 06:10 08/05/18 06:10 08/05/18 06:10 Intake and Output: 08/05/18 08/05/18 06:59 18:59 Intake Total 615.7 8.7 Output Total 70 Balance 545.7 8.7 - Medications Medications: Current Medications Albuterol/Ipratropium (Duoneb 3 Mg/0.5 Mg (3 Ml) Ud) 3 ml INH RQ6 [facility] Last Admin: 08/05/18 08:18 Dose: 3 ml Alprazolam (Xanax) 0.25 mg PO TID PRN PRN Reason: Anxiety Stop: 08/11/18 09:01 Last Admin: 08/04/18 22:34 Dose: 0.25 mg Guaifenesin/Dextromethorphan (Robitussin Dm) 10 ml PO Q4H PRN PRN Reason: Cough and congestion Last Admin: 08/05/18 03:08 Dose: 10 ml Heparin Sodium/Sodium Chloride (Heparin 28684 Units/250ml 1/2 Normal Saline) 25,000 units in 250 mls @ 12.247 mls/hr IV .[id number] PRN; Protocol PRN Reason: ADJUST RATE PER PROTOCOL Last Admin: 08/04/18 22:29 Dose: 12 units/kg/hr, 8.709 mls/hr Cefepime HCl 1 gm/ Sodium (Chloride) 100 mls @ 100 mls/hr IVPB Q24H [facility]; Protocol Last Admin: 08/05/18 01:00 Dose: 100 mls/hr Metolazone (Zaroxolyn) 5 mg PO DAILY [facility] Last Admin: 08/04/18 09:19 Dose: 5 mg Metronidazole (Flagyl) 500 mg PO Q8 [facility]; Protocol Last Admin: 08/05/18 07:00 Dose: 500 mg Pantoprazole Sodium (Protonix Ec Tab) 40 mg PO Q12 [facility] Last Admin: 08/04/18 22:28 Dose: 40 mg - Labs Labs: 08/05/18 06:18 08/05/18 06:20 PT 17.9 SECONDS (9.7-12.2) H 08/05/18 06:18 INR 1.6 08/05/18 06:18 APTT 62 SECONDS (21-34) H D 08/05/18 06:18 Assessment and Plan (1) Acute renal failure Status: Acute (2) Acute respiratory failure with hypoxemia Status: Acute (3) Hypocalcemia Status: Acute (4) Metabolic acidosis Status: Resolved Attending/Attestation - Attestation I have personally seen and examined this patient.: Yes I have fully participated in the care of the patient.: Yes I have reviewed all pertinent clinical information, including history, physical exam and plan: Yes Notes (Text): Patient seen and examined; I agree with the resident's note as above with the following additions/edits: Patient admitted with PE, septic shock and acute renal failure requiring HD; HD treatments daily since past 3 days, mainly for UF in light of hypoxemic resp failure as well as marked edema; currently non-oliguric; stable electrolyte status and much improved FIO2 requirement s/p extubation; On cefepime 1g daily (dosed for CrCl < 20) and flagyl; has multifocal PNA; -Holding HD today; will assess for need for HD tomorrow based on labs and UO; -OK to d/c brady as long as accurate I/O are maintained; -avoid nephrotoxic agents (NSAIDS, phosphate enema, etc);
--- NOTE | 2018-08-04 16:15 | CP.CCUPN ---
<Corrie Chowdary L - Last Filed: 08/04/18 16:21> CCU Subjective - Physician Review Subjective (Free Text): Resident Critical Care Progress Note Patient examined at bedside. Patient currently saturating well on nasal cannula and tolerating out of bed to chair. Critical Care Time Spent (in minutes): 35 CCU Objective - Vital Signs / Intake & Output Vital Signs (Last 4 hours): Vital Signs Pulse Resp BP Pulse Ox 08/04/18 14:10 84 13 123/69 100 08/04/18 14:00 83 14 100 08/04/18 13:10 89 33 H 121/71 100 08/04/18 13:00 85 31 H Intake and Output (Last 8hrs): Intake & Output 08/04/18 08/04/18 08/04/18 06:59 14:59 22:59 Intake Total 187.2 564.2 Output Total 255 220 Balance -67.8 344.2 Weight 188 lb 14.4 oz Intake: IV 50 8 Intake, IV Amount 137.2 76.2 Left Distal Port Internal 69.6 69.6 Jugular Left Medial Port Internal 17.6 6.6 Jugular Left Proximal Port 50 Internal Jugular Oral 480 Output: Urine 255 220 Urethral (Becerril) 255 220 Other: # Voids Urine, Voided 0 # Bowel Movements 1 - Physical Exam Head: Positive for: Normocephalic, Ecchymosis Pupils: Positive for: PERRL Extroacular Muscles: Positive for: EOMI Conjunctiva: Positive for: Normal Mouth: Positive for: Dry Pharnyx: Positive for: Other (ett in place) Neck: Positive for: Normal Range of Motion, Trachea Midline Respiratory/Chest: Positive for: Good Air Exchange, Decreased Breath Sounds Cardiovascular: Positive for: Regular Rate and Rhythm, Normal S1, S2 Abdomen: Positive for: Tenderness (mild tenderness in right upper quadrant ) Upper Extremity: Positive for: Other (ecchymosis surrounding IV sites ). Negative for: Cyanosis Lower Extremity: Positive for: Edema. Negative for: CALF TENDERNESS, Temp erature Abnormalties Neurological: Positive for: GCS=15, CN II-XII Intact Skin: Positive for: Warm, Dry, Normal Color Psychiatric: Positive for: Alert, Oriented x 3, Normal Insight, Anxious - Medications Active Medications: Active Medications Generic Name Dose Route Start Last Admin Trade Name Freq PRN Reason Stop Dose Admin Albuterol/Ipratropium 3 ml 07/31/18 20:00 08/04/18 13:21 Duoneb 3 Mg/0.5 Mg (3 Ml) Ud INH 3 ml RQ6 [facility]Y Administration Alprazolam 0.25 mg 08/04/18 09:00 Xanax PO 08/11/18 09:01 TID PRN Anxiety Heparin Sodium/Sodium Chloride 25,000 units in 250 mls @ 12.247 mls/hr 07/27/18 07:09 08/03/18 15:30 Heparin 36463 Units/250ml 1/2 Normal Saline IV 12 units/kg/hr .[id number] PRN 8.709 mls/hr ADJUST RATE PER PROTOCOL Administration Protocol 16.875 UNITS/KG/HR Cefepime HCl 1 gm/ Sodium 100 mls @ 100 mls/hr 08/05/18 01:00 Chloride IVPB Q24H [facility] Protocol Methylprednisolone 20 mg 08/03/18 11:15 08/04/18 09:17 Solu-Medrol IVP 08/05/18 10:01 20 mg DAILY [facility] Administration Metolazone 5 mg 08/01/18 10:00 08/04/18 09:19 Zaroxolyn PO 5 mg DAILY [facility] Administration Metronidazole 500 mg 07/31/18 14:00 08/04/18 14:49 Flagyl PO 500 mg Q8 [facility] Administration Protocol Pantoprazole Sodium 40 mg 08/02/18 10:00 08/04/18 09:17 Protonix Ec Tab PO 40 mg Q12 [facility] Administration Warfarin Sodium 5 mg 08/04/18 18:00 Coumadin PO 08/04/18 18:01 1800 [facility] - Patient Studies Lab Studies: Microbiology Studies 08/02/18 17:46 Stool Culture - Final Stool NO SALMONELLA, SHIGELLA OR CAMPYLOBACTER ISOLATED. Ova and Parasite Concentrate Exam - Final Lab Studies 08/04/18 08/04/18 08/04/18 Range/Units 05:49 05:48 05:48 WBC 20.1 H (4.8-10.8) K/uL RBC 3.41 L (3.80-5.20) Mil/uL Hgb 9.4 L (11.0-16.0) g/dL Hct 28.3 L (34.0-47.0) % MCV 83.0 (81.0-99.0) fL MCH 27.5 (27.0-31.0) pg MCHC 33.1 (33.0-37.0) g/dL RDW 16.1 H (11.5-14.5) % Plt Count 90 L (130-400) K/uL MPV 11.4 (7.2-11.7) fL Neut % (Auto) 87.7 H (50.0-75.0) % Lymph % (Auto) 5.8 L (20.0-40.0) % Williamson % (Auto) 5.5 (0.0-10.0) % Eos % (Auto) 0.8 (0.0-4.0) % Baso % (Auto) 0.2 (0.0-2.0) % Neut # (Auto) 17.7 H (1.8-7.0) K/uL Lymph # (Auto) 1.2 (1.0-4.3) K/uL Williamson # (Auto) 1.1 H (0.0-0.8) K/uL Eos # (Auto) 0.2 (0.0-0.7) K/uL Baso # (Auto) 0.0 (0.0-0.2) K/uL Neutrophils % (Manual) 93 H (50-75) % Lymphocytes % (Manual) 4 L (20-40) % Monocytes % (Manual) 3 (0-10) % Platelet Estimate Decreased L (NORMAL) Polychromasia Slight Hypochromasia (manual) Slight Anisocytosis (manual) Slight APTT 49 H (21-34) SECONDS Sodium 142 (132-148) mmol/L Potassium 3.2 L (3.6-5.2) mmol/L Chloride 102 (98-107) mmol/L Carbon Dioxide 26 (22-30) mmol/L Anion Gap 17 (10-20) BUN 49 H (7-17) mg/dL Creatinine 4.0 H (0.7-1.2) mg/dL Est GFR ( Amer) 15 Est GFR (Non-Af Amer) 12 Random Glucose 117 H (65-105) mg/dL Calcium 8.8 (8.6-10.4) mg/dl Phosphorus 2.9 (2.5-4.5) mg/dL Magnesium 2.1 (1.6-2.3) mg/dL Total Bilirubin 1.1 (0.2-1.3) mg/dL AST 48 H (14-36) U/L ALT 108 H D (9-52) U/L Alkaline Phosphatase 74 (38-126) U/L Total Protein 5.7 L (6.3-8.3) g/dL Albumin 3.3 L (3.5-5.0) g/dL Globulin 2.4 (2.2-3.9) gm/dL Albumin/Globulin Ratio 1.4 (1.0-2.1) Laboratory Results - last 24 hr 08/04/18 08/04/18 08/04/18 05:48 05:48 05:49 WBC 20.1 H RBC 3.41 L Hgb 9.4 L Hct 28.3 L MCV 83.0 MCH 27.5 MCHC 33.1 RDW 16.1 H Plt Count 90 L MPV 11.4 Neut % (Auto) 87.7 H Lymph % (Auto) 5.8 L Williamson % (Auto) 5.5 Eos % (Auto) 0.8 Baso % (Auto) 0.2 Neut # (Auto) 17.7 H Lymph # (Auto) 1.2 Williamson # (Auto) 1.1 H Eos # (Auto) 0.2 Baso # (Auto) 0.0 Neutrophils % (Manual) 93 H Lymphocytes % (Manual) 4 L Monocytes % (Manual) 3 Platelet Estimate Decreased L Polychromasia Slight Hypochromasia (manual) Slight Anisocytosis (manual) Slight APTT 49 H Sodium 142 Potassium 3.2 L Chloride 102 Carbon Dioxide 26 Anion Gap 17 BUN 49 H Creatinine 4.0 H Est GFR ( Amer) 15 Est GFR (Non-Af Amer) 12 Random Glucose 117 H Calcium 8.8 Phosphorus 2.9 Magnesium 2.1 Total Bilirubin 1.1 AST 48 H ALT 108 H D Alkaline Phosphatase 74 Total Protein 5.7 L Albumin 3.3 L Globulin 2.4 Albumin/Globulin Ratio 1.4 Fingerstick Blood Sugar Results: 288 Review of Systems - Review of Systems All systems: reviewed and no additional remarkable complaints except (as stated in HPI) Critical Care Progress Note - Nutrition Nutrition: Nutrition Category Date Time Status Mechanically altered [Dysphagia/Modified Consistency Diets 08/01/18 Dinner Active Diet] [DIET] Assessment/Plan - Assessment and Plan (Free Text) Assessment: Patient is a 48 year old female with past medical history of anxiety presenting to ED with shortness of breath, syncope, and chest pain, went into cardiac arrest, was intubated and found to have bilateral PE, septic shock, and DVT in left common femoral vein. Extubated 08/01. Plan: Neuro: - Alert, following commands - Head CT shows no acute intracranial abnormality Pulm: - s/p extubation, saturating well on nasal cannula - Duonebs 3 ml INH RQ6 - chest PT, incentive spirometry CV: - heparin drip - plan to bridge to oral anticoagulation GI: - Transaminitis resolving Renal: - BRIAN - dialyzed with 3L removal on (08/01) and 4L fluid removal (08/02) - 3000 mL UF from dialysis 08/03 Endo: - maintain euglycemia with blood sugars 140-180 Heme: - heparin drip low dose - Heme/onc consulted. Appreciate recs. - No need for IVC filter, patient's bleeding risk has decreased ID: - Flagyl 500 mg Q8H, Cefepime 1 gm Q12H for enterocolitis Dispo: ICU, s/p extubation Access: central line, peripheral IVs, dialysis cath Consults: Cardio, Neuro PPX: Protonix for GI, SCDs contraindicated d/t DVT Patient seen, reviewed, and discussed with attending, Dr. Bindu Chowdary PGY-1 - Date & Time Date: 08/04/18 Time: 08:00 <Aftab Ruano - Last Filed: 08/04/18 17:19> CCU Objective - Vital Signs / Intake & Output Vital Signs (Last 4 hours): Vital Signs Pulse Resp BP Pulse Ox 08/04/18 14:10 84 13 123/69 100 08/04/18 14:00 83 14 100 Intake and Output (Last 8hrs): Intake & Output 08/04/18 08/04/18 08/04/18 06:59 14:59 22:59 Intake Total 187.2 564.2 Output Total 255 220 Balance -67.8 344.2 Weight 188 lb 14.4 oz Intake: IV 50 8 Intake, IV Amount 137.2 76.2 Left Distal Port Internal 69.6 69.6 Jugular Left Medial Port Internal 17.6 6.6 Jugular Left Proximal Port 50 Internal Jugular Oral 480 Output: Urine 255 220 Urethral (Becerril) 255 220 Other: # Voids Urine, Voided 0 # Bowel Movements 1 - Medications Active Medications: Active Medications Generic Name Dose Route Start Last Admin Trade Name Freq PRN Reason Stop Dose Admin Albuterol/Ipratropium 3 ml 07/31/18 20:00 08/04/18 13:21 Duoneb 3 Mg/0.5 Mg (3 Ml) Ud INH 3 ml RQ6 K[facility]Y Administration Alprazolam 0.25 mg 08/04/18 09:00 Xanax PO 08/11/18 09:01 TID PRN Anxiety Heparin Sodium/Sodium Chloride 25,000 units in 250 mls @ 12.247 mls/hr 07/27/18 07:09 08/03/18 15:30 Heparin 77065 Units/250ml 1/2 Normal Saline IV 12 units/kg/hr .[id number] PRN 8.709 mls/hr ADJUST RATE PER PROTOCOL Administration Protocol 16.875 UNITS/KG/HR Cefepime HCl 1 gm/ Sodium 100 mls @ 100 mls/hr 08/05/18 01:00 Chloride IVPB Q24H [facility] Protocol Methylprednisolone 20 mg 08/03/18 11:15 08/04/18 09:17 Solu-Medrol IVP 08/05/18 10:01 20 mg DAILY [facility] Administration Metolazone 5 mg 08/01/18 10:00 08/04/18 09:19 Zaroxolyn PO 5 mg DAILY [facility] Administration Metronidazole 500 mg 07/31/18 14:00 08/04/18 14:49 Flagyl PO 500 mg Q8 [facility] Administration Protocol Pantoprazole Sodium 40 mg 08/02/18 10:00 08/04/18 09:17 Protonix Ec Tab PO 40 mg Q12 [facility] Administration Warfarin Sodium 5 mg 08/04/18 18:00 Coumadin PO 08/04/18 18:01 1800 K[facility]Y - Patient Studies Lab Studies: Microbiology Studies 08/02/18 17:46 Stool Culture - Final Stool NO SALMONELLA, SHIGELLA OR CAMPYLOBACTER ISOLATED. Ova and Parasite Concentrate Exam - Final Lab Studies 08/04/18 08/04/18 08/04/18 Range/Units 16:46 05:49 05:48 WBC (4.8-10.8) K/uL RBC (3.80-5.20) Mil/uL Hgb (11.0-16.0) g/dL Hct (34.0-47.0) % MCV (81.0-99.0) fL MCH (27.0-31.0) pg MCHC (33.0-37.0) g/dL RDW (11.5-14.5) % Plt Count (130-400) K/uL MPV (7.2-11.7) fL Neut % (Auto) (50.0-75.0) % Lymph % (Auto) (20.0-40.0) % Williamson % (Auto) (0.0-10.0) % Eos % (Auto) (0.0-4.0) % Baso % (Auto) (0.0-2.0) % Neut # (Auto) (1.8-7.0) K/uL Lymph # (Auto) (1.0-4.3) K/uL Williamson # (Auto) (0.0-0.8) K/uL Eos # (Auto) (0.0-0.7) K/uL Baso # (Auto) (0.0-0.2) K/uL Neutrophils % (Manual) (50-75) % Lymphocytes % (Manual) (20-40) % Monocytes % (Manual) (0-10) % Platelet Estimate (NORMAL) Polychromasia Hypochromasia (manual) Anisocytosis (manual) PT 19.7 H (9.7-12.2) SECONDS INR 1.8 APTT 49 H (21-34) SECONDS Sodium 142 (132-148) mmol/L Potassium 3.2 L (3.6-5.2) mmol/L Chloride 102 (98-107) mmol/L Carbon Dioxide 26 (22-30) mmol/L Anion Gap 17 (10-20) BUN 49 H (7-17) mg/dL Creatinine 4.0 H (0.7-1.2) mg/dL Est GFR ( Amer) 15 Est GFR (Non-Af Amer) 12 Random Glucose 117 H (65-105) mg/dL Calcium 8.8 (8.6-10.4) mg/dl Phosphorus 2.9 (2.5-4.5) mg/dL Magnesium 2.1 (1.6-2.3) mg/dL Total Bilirubin 1.1 (0.2-1.3) mg/dL AST 48 H (14-36) U/L ALT 108 H D (9-52) U/L Alkaline Phosphatase 74 (38-126) U/L Total Protein 5.7 L (6.3-8.3) g/dL Albumin 3.3 L (3.5-5.0) g/dL Globulin 2.4 (2.2-3.9) gm/dL Albumin/Globulin Ratio 1.4 (1.0-2.1) 08/04/18 Range/Units 05:48 WBC 20.1 H (4.8-10.8) K/uL RBC 3.41 L (3.80-5.20) Mil/uL Hgb 9.4 L (11.0-16.0) g/dL Hct 28.3 L (34.0-47.0) % MCV 83.0 (81.0-99.0) fL MCH 27.5 (27.0-31.0) pg MCHC 33.1 (33.0-37.0) g/dL RDW 16.1 H (11.5-14.5) % Plt Count 90 L (130-400) K/uL MPV 11.4 (7.2-11.7) fL Neut % (Auto) 87.7 H (50.0-75.0) % Lymph % (Auto) 5.8 L (20.0-40.0) % Williamson % (Auto) 5.5 (0.0-10.0) % Eos % (Auto) 0.8 (0.0-4.0) % Baso % (Auto) 0.2 (0.0-2.0) % Neut # (Auto) 17.7 H (1.8-7.0) K/uL Lymph # (Auto) 1.2 (1.0-4.3) K/uL Williamson # (Auto) 1.1 H (0.0-0.8) K/uL Eos # (Auto) 0.2 (0.0-0.7) K/uL Baso # (Auto) 0.0 (0.0-0.2) K/uL Neutrophils % (Manual) 93 H (50-75) % Lymphocytes % (Manual) 4 L (20-40) % Monocytes % (Manual) 3 (0-10) % Platelet Estimate Decreased L (NORMAL) Polychromasia Slight Hypochromasia (manual) Slight Anisocytosis (manual) Slight PT (9.7-12.2) SECONDS INR APTT (21-34) SECONDS Sodium (132-148) mmol/L Potassium (3.6-5.2) mmol/L Chloride (98-107) mmol/L Carbon Dioxide (22-30) mmol/L Anion Gap (10-20) BUN (7-17) mg/dL Creatinine (0.7-1.2) mg/dL Est GFR ( Amer) Est GFR (Non-Af Amer) Random Glucose (65-105) mg/dL Calcium (8.6-10.4) mg/dl Phosphorus (2.5-4.5) mg/dL Magnesium (1.6-2.3) mg/dL Total Bilirubin (0.2-1.3) mg/dL AST (14-36) U/L ALT (9-52) U/L Alkaline Phosphatase (38-126) U/L Total Protein (6.3-8.3) g/dL Albumin (3.5-5.0) g/dL Globulin (2.2-3.9) gm/dL Albumin/Globulin Ratio (1.0-2.1) Laboratory Results - last 24 hr 08/04/18 08/04/18 08/04/18 05:48 05:48 05:49 WBC 20.1 H RBC 3.41 L Hgb 9.4 L Hct 28.3 L MCV 83.0 MCH 27.5 MCHC 33.1 RDW 16.1 H Plt Count 90 L MPV 11.4 Neut % (Auto) 87.7 H Lymph % (Auto) 5.8 L Williamson % (Auto) 5.5 Eos % (Auto) 0.8 Baso % (Auto) 0.2 Neut # (Auto) 17.7 H Lymph # (Auto) 1.2 Williamson # (Auto) 1.1 H Eos # (Auto) 0.2 Baso # (Auto) 0.0 Neutrophils % (Manual) 93 H Lymphocytes % (Manual) 4 L Monocytes % (Manual) 3 Platelet Estimate Decreased L Polychromasia Slight Hypochromasia (manual) Slight Anisocytosis (manual) Slight PT INR APTT 49 H Sodium 142 Potassium 3.2 L Chloride 102 Carbon Dioxide 26 Anion Gap 17 BUN 49 H Creatinine 4.0 H Est GFR ( Amer) 15 Est GFR (Non-Af Amer) 12 Random Glucose 117 H Calcium 8.8 Phosphorus 2.9 Magnesium 2.1 Total Bilirubin 1.1 AST 48 H ALT 108 H D Alkaline Phosphatase 74 Total Protein 5.7 L Albumin 3.3 L Globulin 2.4 Albumin/Globulin Ratio 1.4 08/04/18 16:46 WBC RBC Hgb Hct MCV MCH MCHC RDW Plt Count MPV Neut % (Auto) Lymph % (Auto) Williamson % (Auto) Eos % (Auto) Baso % (Auto) Neut # (Auto) Lymph # (Auto) Williamson # (Auto) Eos # (Auto) Baso # (Auto) Neutrophils % (Manual) Lymphocytes % (Manual) Monocytes % (Manual) Platelet Estimate Polychromasia Hypochromasia (manual) Anisocytosis (manual) PT 19.7 H INR 1.8 APTT Sodium Potassium Chloride Carbon Dioxide Anion Gap BUN Creatinine Est GFR ( Amer) Est GFR (Non-Af Amer) Random Glucose Calcium Phosphorus Magnesium Total Bilirubin AST ALT Alkaline Phosphatase Total Protein Albumin Globulin Albumin/Globulin Ratio Critical Care Progress Note - Nutrition Nutrition: Nutrition Category Date Time Status Mechanically altered [Dysphagia/Modified Consistency Diets 08/01/18 Dinner Active Diet] [DIET] Assessment/Plan (1) Acute respiratory failure with hypoxemia Current Visit: Yes Status: Acute Attending/Attestation - Attestation I have personally seen and examined this patient.: Yes I have fully participated in the care of the patient.: Yes I have reviewed all pertinent clinical information: Yes Notes (Text): 08/04/18 17:12 I have seen and examined the patient. Medical records, lab studies, and imaging were reviewed by me and a management plan was formulated on multidisciplinary rounds with resident Dr. Chowdary. I agree with their documented assessment and plan. Patient is doing much better since removing ~9 liters of fluids with dialysis/ultrafiltration. Patient can now tolerate nasal canula oxygen. Stopping steroids, hopefully wbc will start to downtrend; if not will have to remove the central line (oldest one) and reculture. Critical Care Time 35 minutes. Multi-disciplinary rounds were performed with house staff, nursing, speech therapy, respiratory therapy, pharmacy and nutrition with integrated input from the primary team/attending and other consulting services. The documented time is cumulative and includes review of patient data/exams/labs/chart review and examination of the patient on rounds and throughout the day; time is exclusive of any procedures or teaching time.
[2018-08-04 17:00] LABS: INR 1.8; PROTHROMBIN TIME 19.7 SECONDS (9.7-12.2)
[2018-08-04] MEDS: Heparin25000 units/250ml 1/2NS 25,000 UNITS/250 ML BAG IV PRN (22:29)
[2018-08-05] MEDS: Cefepime 1 GM in Sodium Chloride 0.9% 100 ML IVPB SCH (01:00)
[2018-08-05] MEDS: Albuterol-Ipratrop 3 mg / 0.5 (3 ml) UD INH SCH ×4 (01:13→20:00)
[2018-08-05] MEDS: guaiFENesin DM 200 mg-20 mg/10 ml UD PO PRN (03:08)
[2018-08-05 06:30] LABS: BASO % 0.2 % (0.0-2.0); HEMOGLOBIN 9.8 g/dL (11.0-16.0); LYMPH # 0.5 K/uL (1.0-4.3); LYMPH % 2.4 % (20.0-40.0); MEAN CELL VOLUME 82.8 fL (81.0-99.0); MEAN CORPUSCULAR HEMOGLOBIN 27.7 pg (27.0-31.0); MEAN CORPUSCULAR HGB CONC 33.4 g/dL (33.0-37.0); MEAN PLATELET VOLUME 11.1 fL (7.2-11.7); MONO # 1.2 K/uL (0.0-0.8); MONO % 5.6 % (0.0-10.0); NEUT % 91.8 % (50.0-75.0); NRBC % 0.3 % (0.0-2.0); PLATELET COUNT 110 K/uL (130-400); RBC 3.54 Mil/uL (3.80-5.20); RED CELL DISTRIBUTION WIDTH 15.9 % (11.5-14.5); WHITE BLOOD COUNT 21.8 K/uL (4.8-10.8)
[2018-08-05 06:33] LABS: INR 1.6; PROTHROMBIN TIME 17.9 SECONDS (9.7-12.2)
[2018-08-05 06:48] LABS: ALB/GLOB RATIO 1.3 (1.0-2.1); ALBUMIN 3.4 g/dL (3.5-5.0); CALCIUM 9.1 mg/dl (8.6-10.4)
[2018-08-05 08:37] LABS: BANDS 1 % (0-2); LYMPHOCYTE 3 % (20-40); MONOCYTE 3 % (0-10); NEUTROPHIL 93 % (50-75); TOTAL CELLS COUNTED 100
[2018-08-05 08:38] LABS: ANISOCYTOSIS SLIGHT; HYPOCHROMIC SLIGHT; PLATELET ESTIMATE SLIGHTLY DECREASED (NORMAL); POLYCHROMIC SLIGHT
--- NOTE | 2018-08-05 08:49 | CP.PCM.PN ---
Subjective - Date & Time of Evaluation Date of Evaluation: 08/05/18 Time of Evaluation: 08:00 - Subjective Subjective: Cardiology Progress Note Airam Rasmussen, PGY1 note for Dr. Ba Patient seen and examined at bedside this morning. No acute events overnight. On heparin drip. Saturating well on NC and moving out of bed to chair with assist. Objective - Vital Signs/Intake and Output Vital Signs (last 24 hours): Temp Pulse Resp BP Pulse Ox 97.8 F 85 31 H 130/68 99 08/05/18 04:00 08/05/18 08:10 08/05/18 08:10 08/05/18 08:10 08/05/18 08:10 Intake and Output: 08/05/18 08/05/18 06:59 18:59 Intake Total 615.7 8.7 Output Total 70 Balance 545.7 8.7 - Medications Medications: Current Medications Albuterol/Ipratropium (Duoneb 3 Mg/0.5 Mg (3 Ml) Ud) 3 ml INH RQ6 [facility] Last Admin: 08/05/18 08:18 Dose: 3 ml Alprazolam (Xanax) 0.25 mg PO TID PRN PRN Reason: Anxiety Stop: 08/11/18 09:01 Last Admin: 08/04/18 22:34 Dose: 0.25 mg Guaifenesin/Dextromethorphan (Robitussin Dm) 10 ml PO Q4H PRN PRN Reason: Cough and congestion Last Admin: 08/05/18 03:08 Dose: 10 ml Heparin Sodium/Sodium Chloride (Heparin 13626 Units/250ml 1/2 Normal Saline) 25,000 units in 250 mls @ 12.247 mls/hr IV .[id number] PRN; Protocol PRN Reason: ADJUST RATE PER PROTOCOL Last Admin: 08/04/18 22:29 Dose: 12 units/kg/hr, 8.709 mls/hr Cefepime HCl 1 gm/ Sodium (Chloride) 100 mls @ 100 mls/hr IVPB Q24H [facility]; Protocol Last Admin: 08/05/18 01:00 Dose: 100 mls/hr Metolazone (Zaroxolyn) 5 mg PO DAILY [facility] Last Admin: 08/04/18 09:19 Dose: 5 mg Metronidazole (Flagyl) 500 mg PO Q8 [facility]; Protocol Last Admin: 08/05/18 07:00 Dose: 500 mg Pantoprazole Sodium (Protonix Ec Tab) 40 mg PO Q12 [facility] Last Admin: 08/04/18 22:28 Dose: 40 mg - Labs Labs: 08/05/18 06:18 08/05/18 06:20 PT 17.9 SECONDS (9.7-12.2) H 08/05/18 06:18 INR 1.6 08/05/18 06:18 APTT 62 SECONDS (21-34) H D 08/05/18 06:18 - Constitutional Appears: No Acute Distress - Head Exam Head Exam: NORMOCEPHALIC Additional comments: left frontal bruise, improving - Eye Exam Eye Exam: EOMI Pupil Exam: PERRL - Respiratory Exam Respiratory Exam: Clear to Ausculation Bilateral. absent: Respiratory Distress - Cardiovascular Exam Cardiovascular Exam: REGULAR RHYTHM, +S1, +S2 - GI/Abdominal Exam GI & Abdominal Exam: Normal Bowel Sounds. absent: Guarding, Rigid - Extremities Exam Extremities Exam: Normal Inspection. absent: Calf Tenderness - Neurological Exam Neurological Exam: Alert, Awake Additional comments: responding to questioning - Skin Skin Exam: Normal Color, Warm Additional comments: healing ecchymosis noted on face, arm and neck Assessment and Plan - Assessment and Plan (Free Text) Assessment: This is a 48 year old female with PMH of anxiety presenting to the ED s/p witnessed syncopal episode after return from [place] on bus. Plan: B/L P.E. -Chest CT reviewed, snhows evidence of pneumonia, possible atelectasis/pulmonary infarct. Small B/L pleural effusions -continue heparin drip -off of pressors, sedation -s/p HD 08/03 with 3L removed -echo showed LVEF 50-55%, mild to moderate TR and pulmonary hypertension -no need for IVC filter at this time -will not do EKOS at this time due to unknown status of prothrombotic state -CTA showed diffuse bilateral pulmonary emboli of B/L central and segmental pulmonary arteries, pulmonary venous congestion compatible with CHF vs left basilar atelectasis vs pulmonary infarct -D-dimer > 5250, PT/INR/PTT elevated, elevated fibrinogen products -s/p respiratory arrest, ACLS performed -LE duplex shows left acute thrombosis of the left common femoral vein Afib -EKG on admission showed afib with RVR at 146bpm, uncertain if new finding Case discussed with attending, further recommendations per Dr. Ba
[2018-08-05] MEDS: Pantoprazole 40 mg EC Tab PO SCH ×2 (09:23→21:42)
[2018-08-05] MEDS: Saccharomyces Boulardi 250 mg Cap PO SCH ×2 (09:57→19:06)
--- NOTE | 2018-08-05 10:07 | CP.PCM.PN ---
Subjective - Date & Time of Evaluation Date of Evaluation: 08/05/18 Time of Evaluation: 10:07 - Subjective Subjective: Patient was seen and examined this morning. c/o cough when she breath . Denies pain,no abdominal pain. Had loose BM,It was dark/brown non bloody. Her urine out put low. She feels little better.She was sitting on bed,saturating well on NC Getting dialysis via right perma cath this morning. Heparin drip via left TLC, intact with dressing dry Objective - Vital Signs/Intake and Output Vital Signs (last 24 hours): Temp Pulse Resp BP Pulse Ox 97.9 F 92 H 15 114/58 L 99 08/05/18 08:00 08/05/18 09:10 08/05/18 09:10 08/05/18 09:10 08/05/18 09:10 Intake and Output: 08/05/18 08/05/18 06:59 18:59 Intake Total 615.7 266.1 Output Total 70 0 Balance 545.7 266.1 - Medications Medications: Current Medications Albuterol/Ipratropium (Duoneb 3 Mg/0.5 Mg (3 Ml) Ud) 3 ml INH RQ6 [facility] Last Admin: 08/05/18 08:18 Dose: 3 ml Alprazolam (Xanax) 0.25 mg PO TID PRN PRN Reason: Anxiety Stop: 08/11/18 09:01 Last Admin: 08/04/18 22:34 Dose: 0.25 mg Guaifenesin/Dextromethorphan (Robitussin Dm) 10 ml PO Q4H PRN PRN Reason: Cough and congestion Last Admin: 08/05/18 03:08 Dose: 10 ml Heparin Sodium/Sodium Chloride (Heparin 24431 Units/250ml 1/2 Normal Saline) 25,000 units in 250 mls @ 12.247 mls/hr IV .[id number] PRN; Protocol PRN Reason: ADJUST RATE PER PROTOCOL Last Admin: 08/04/18 22:29 Dose: 12 units/kg/hr, 8.709 mls/hr Cefepime HCl 1 gm/ Sodium (Chloride) 100 mls @ 100 mls/hr IVPB Q24H [facility]; Protocol Last Admin: 08/05/18 01:00 Dose: 100 mls/hr Metolazone (Zaroxolyn) 5 mg PO DAILY [facility] Last Admin: 08/04/18 09:19 Dose: 5 mg Metronidazole (Flagyl) 500 mg PO Q8 [facility]; Protocol Last Admin: 08/05/18 07:00 Dose: 500 mg Pantoprazole Sodium (Protonix Ec Tab) 40 mg PO Q12 [facility] Last Admin: 08/05/18 09:23 Dose: 40 mg Saccharomyces Boulardii (Florastor) 250 mg PO BID [facility] Last Admin: 08/05/18 09:57 Dose: 250 mg - Labs Labs: 08/05/18 06:18 08/05/18 06:20 PT 17.9 SECONDS (9.7-12.2) H 08/05/18 06:18 INR 1.6 08/05/18 06:18 APTT 62 SECONDS (21-34) H D 08/05/18 06:18 - Constitutional Appears: No Acute Distress, Chronically Ill - Head Exam Head Exam: absent: NORMAL INSPECTION (old ecchymosis on her forhead) - Eye Exam Eye Exam: Normal appearance, PERRL Pupil Exam: NORMAL ACCOMODATION - ENT Exam ENT Exam: Mucous Membranes Moist - Neck Exam Neck Exam: Full ROM - Respiratory Exam Respiratory Exam: Rales. absent: Respiratory Distress - Cardiovascular Exam Cardiovascular Exam: REGULAR RHYTHM - GI/Abdominal Exam GI & Abdominal Exam: Soft, Normal Bowel Sounds. absent: Tenderness - Extremities Exam Extremities Exam: Full ROM. absent: Calf Tenderness - Back Exam Back Exam: NORMAL INSPECTION - Neurological Exam Neurological Exam: Awake, Oriented x3 - Psychiatric Exam Psychiatric exam: Normal Mood - Skin Skin Exam: Dry. absent: Normal Color (has old ecchymosis on her arm and chest) Assessment and Plan - Assessment and Plan (Free Text) Assessment: This is a 48 year old [place] female patient with past medical history of anxiety who presented with worsening shortness of breath and syncope. Patient was found to be in atrial fibrillation and subsequently went into cardiac arrest while in the hospital with ACLS protocol being initiated. CTA of the chest showed bilateral pulmonary emboli while US of the duplex US of the lower extremities showed occlusive thrombus in the left common femoral vein with severe reduction of venous return. Currently, patient is intubated on maximal oxygen flow in the ICU on three vasopressors, heparin drip, broad spectrum antibiotics with underlying severe acidosis along with being anuric. Nephrology was consulted for acute renal failure in the setting of anuria and septic shock. Now she is extubated on BIPAP off pressors. She is getting dialysis currently Plan: 1. Acute Hypercapnic Respiratory Failure from Bilateral Pulmonary Embolism Improving sitting on chair ,saturating good on 3 liter NC on heparin drip for DVT/PE Chest x ray shows patchy infiltrate on right upper and left mid and lower lobes we will continue heparin for now. patient might need shiley cath placement for dialysis and remove her perma cath soon. we will start oral anticoagulation soon. Chest CT shows extensive bilateral lower lobe proximal PE, smaller emboli within upper lobes and middle lobe, cardiomegaly - Venous dopplers show DVT in left common femoral vein - ECHO shows LVEF 73%, diastolic dysfunction, mild-mod dilated RV 2. Renal failure - acute kidney injury / ATN D/W Dr Henson nephrology Monitor creatinine and urine out put Getting dialysis today/low urine out put overnight 3. Sepsis / DIC / Abdominal Pain continue cefepime and flagyl . d/w DR Slater today. we will continue antibiotics Has leukocytosis,no fever,blood and urine cultures were negative chest x ray with infiltrate Her LFT is improving Abd/pelvis CT shows mild ileum, questionable enteritis, postoperative changes of stomach Patient needs out patient GI work up to r/o malignancy FOBT positive. C.diff, salmonella, shigella, campylobacter negative. Abd U/S shows cholecystitis, hold off on cholecystostomy for now as patient is clinically improving 4. Atrial Fibrillation with RVR - now NSR Likley secondary to the bilateral PEs, they asked IR to evaluate however she was not a candidate for direct catheter thrombolysis Patient on heparin drip 5. Prophylaxis DVT on heparin GI on protonix diet-soft
--- NOTE | 2018-08-05 10:22 | CP.PCM.PN ---
<Phylicia Salgado - Last Filed: 08/05/18 15:30> Subjective - Date & Time of Evaluation Date of Evaluation: 08/05/18 Time of Evaluation: 09:00 - Subjective Subjective: Nephrology Progress Note for Dr. Henson Patient was seen and examined at bedside in the AM. Patient states she was able to move out of bed to chair this morning. She states she feels like her breathing is slightly better when compared to yesterday. She states she had 3 bowel movements overnight that were loose. She also states she urinated last night 3 times and is now attempting to urinate this morning. Objective - Vital Signs/Intake and Output Vital Signs (last 24 hours): Temp Pulse Resp BP Pulse Ox 97.9 F 92 H 15 114/58 L 99 08/05/18 08:00 08/05/18 09:10 08/05/18 09:10 08/05/18 09:10 08/05/18 09:10 Intake and Output: 08/05/18 08/05/18 06:59 18:59 Intake Total 615.7 266.1 Output Total 70 0 Balance 545.7 266.1 - Medications Medications: Current Medications Albuterol/Ipratropium (Duoneb 3 Mg/0.5 Mg (3 Ml) Ud) 3 ml INH RQ6 [facility] Last Admin: 08/05/18 08:18 Dose: 3 ml Alprazolam (Xanax) 0.25 mg PO TID PRN PRN Reason: Anxiety Stop: 08/11/18 09:01 Last Admin: 08/04/18 22:34 Dose: 0.25 mg Guaifenesin/Dextromethorphan (Robitussin Dm) 10 ml PO Q4H PRN PRN Reason: Cough and congestion Last Admin: 08/05/18 03:08 Dose: 10 ml Heparin Sodium/Sodium Chloride (Heparin 98867 Units/250ml 1/2 Normal Saline) 25,000 units in 250 mls @ 12.247 mls/hr IV .[id number] PRN; Protocol PRN Reason: ADJUST RATE PER PROTOCOL Last Admin: 08/04/18 22:29 Dose: 12 units/kg/hr, 8.709 mls/hr Cefepime HCl 1 gm/ Sodium (Chloride) 100 mls @ 100 mls/hr IVPB Q24H [facility]; Protocol Last Admin: 08/05/18 01:00 Dose: 100 mls/hr Metolazone (Zaroxolyn) 5 mg PO DAILY [facility] Last Admin: 08/04/18 09:19 Dose: 5 mg Metronidazole (Flagyl) 500 mg PO Q8 [facility]; Protocol Last Admin: 08/05/18 07:00 Dose: 500 mg Pantoprazole Sodium (Protonix Ec Tab) 40 mg PO Q12 [facility] Last Admin: 08/05/18 09:23 Dose: 40 mg Saccharomyces Boulardii (Florastor) 250 mg PO BID [facility] Last Admin: 08/05/18 09:57 Dose: 250 mg - Labs Labs: 08/05/18 06:18 08/05/18 06:20 PT 17.9 SECONDS (9.7-12.2) H 08/05/18 06:18 INR 1.6 08/05/18 06:18 APTT 62 SECONDS (21-34) H D 08/05/18 06:18 - Constitutional Appears: Chronically Ill - Head Exam Additional comments: hematoma above left eye - Eye Exam Eye Exam: EOMI, Normal appearance - ENT Exam ENT Exam: Mucous Membranes Moist - Respiratory Exam Respiratory Exam: Wheezes, NORMAL BREATHING PATTERN - Cardiovascular Exam Cardiovascular Exam: REGULAR RHYTHM, +S1, +S2 - GI/Abdominal Exam GI & Abdominal Exam: Soft, Normal Bowel Sounds. absent: Tenderness - Extremities Exam Extremities Exam: absent: Tenderness - Neurological Exam Neurological Exam: Alert, Awake, Oriented x3 - Skin Skin Exam: Abrasion (hematoma above left eye; hematoma left and right forearm) Assessment and Plan - Assessment and Plan (Free Text) Assessment: 48 year old female with a past medical history of anxiety, possible UTI, on OCP who presented to [facility] after a syncopal episode at home and found to be in atrial fibrillation and was given cardizem and morphine. Patient then went into respiratory stress with bradycardia. ACLS protocol was initiated. Patient was intubated and ICU was consulted. Labs revealed a severe metabolic lactic acidosis, acute hypoxemic respiratory failure, and leukocytosis of 39,000 with 23 % bands despite being given fluids and CTA showed diffuse bilateral PE while duplex US of the LE showed an occlusive thrombus in the left common femoral vein. Acute renal failure secondary to septic shock - s/p Dialysis 08/01-10/8 about 8L total removed - Dialysis 08/05/18 Cr increased to 4.8 - Continue to monitor Cr to monitor for kidney function improvement Pneumonia - Chest CT (08/03/18): Evidence of multifocal pneumonia - Continue Cefepime 1gm q24h B/L PE - CTA showed diffuse bilateral pulmonary emboli of B/L central and segmental pulmonary arteries, pulmonary venous congestion compatible with CHF vs left basilar atelectasis vs pulmonary infarct - D-dimer > 5250, PT/INR/PTT elevated, elevated fibrinogen products - Continue heparin drip - Echo showed LVEF 50-55%, mild to moderate TR and pulmonary hypertension Afib - EKG on admission showed afib with RVR at 146bpm - Continue Heparin drip Hypocalcemia in a critically ill patient - Corrected Ca is 6.9 - 2 grams of Calcium Gluconate given - Ca is stable 8.8 - continue to monitor Case discussed with Dr. Natividad Salgado PGY-2 <Pato Henson - Last Filed: 08/06/18 09:05> Objective - Vital Signs/Intake and Output Vital Signs (last 24 hours): Temp Pulse Resp BP Pulse Ox 98.6 F 84 20 118/67 99 08/06/18 04:18 08/06/18 04:37 08/06/18 04:18 08/06/18 04:18 08/06/18 04:18 Intake and Output: 08/06/18 08/06/18 06:59 18:59 Intake Total 504.8 Output Total 200 Balance 304.8 - Medications Medications: Current Medications Albuterol/Ipratropium (Duoneb 3 Mg/0.5 Mg (3 Ml) Ud) 3 ml INH RQ6 [facility] Last Admin: 08/06/18 07:48 Dose: 3 ml Alprazolam (Xanax) 0.25 mg PO TID PRN PRN Reason: Anxiety Stop: 08/11/18 09:01 Last Admin: 08/04/18 22:34 Dose: 0.25 mg Guaifenesin/Dextromethorphan (Robitussin Dm) 10 ml PO Q4H PRN PRN Reason: Cough and congestion Last Admin: 08/06/18 01:11 Dose: 10 ml Heparin Sodium/Sodium Chloride (Heparin 38341 Units/250ml 1/2 Normal Saline) 25,000 units in 250 mls @ 12.247 mls/hr IV .[id number] PRN; Protocol PRN Reason: ADJUST RATE PER PROTOCOL Last Admin: 08/06/18 03:52 Dose: 12 units/kg/hr, 8.709 mls/hr Cefepime HCl 1 gm/ Sodium (Chloride) 100 mls @ 100 mls/hr IVPB Q24H [facility]; Protocol Last Admin: 08/06/18 01:12 Dose: 100 mls/hr Metolazone (Zaroxolyn) 5 mg PO DAILY [facility] Last Admin: 08/04/18 09:19 Dose: 5 mg Metronidazole (Flagyl) 500 mg PO Q8 [facility]; Protocol Last Admin: 08/06/18 05:34 Dose: 500 mg Pantoprazole Sodium (Protonix Ec Tab) 40 mg PO Q12 [facility] Last Admin: 08/05/18 21:42 Dose: 40 mg Saccharomyces Boulardii (Florastor) 250 mg PO BID [facility] Last Admin: 08/05/18 19:06 Dose: 250 mg - Labs Labs: 08/06/18 07:54 08/06/18 07:54 PT 17.9 SECONDS (9.7-12.2) H 08/05/18 06:18 INR 1.6 08/05/18 06:18 APTT 53 SECONDS (21-34) H 08/06/18 07:54 Assessment and Plan (1) Acute renal failure Status: Acute (2) Acute respiratory failure with hypoxemia Status: Acute (3) Hypocalcemia Status: Acute (4) Metabolic acidosis Status: Resolved Attending/Attestation - Attestation I have personally seen and examined this patient.: Yes I have fully participated in the care of the patient.: Yes I have reviewed all pertinent clinical information, including history, physical exam and plan: Yes Notes (Text): Patient seen and examined; I agree with the resident's note as above with the following additions/edits: Patient with no significant pmh admitted with PE, bilateral PNA, septic shock and acute renal failure requiring HD; Serum creatinine continues to increase and patient oliguric; dialyzing today with 2L UF goal; will evaluate daily for signs of renal recovery; otherwise is hemodynamically very stable; tolerating HD well; On cefepime for PNA, dosed for CrCl < 20; On heparin drip for PE; recommend to start coumadin rather than eliquis, at least until we can determine if she will need prolonged HD (in which case HD catheter will need to be converted to tunneled one); Should continue to avoid all nephrotoxic agents (NSAIDS, phosphate enema, IV dye) in patient who can potentially recovery renal function;
[2018-08-06] MEDS: guaiFENesin DM 200 mg-20 mg/10 ml UD PO PRN ×2 (01:11→22:26)
[2018-08-06] MEDS: Cefepime 1 GM in Sodium Chloride 0.9% 100 ML IVPB SCH (01:12)
[2018-08-06] MEDS: Albuterol-Ipratrop 3 mg / 0.5 (3 ml) UD INH SCH ×4 (02:10→19:45)
[2018-08-06] MEDS: Heparin25000 units/250ml 1/2NS 25,000 UNITS/250 ML BAG IV PRN (03:52)
[2018-08-06 08:03] LABS: BASO % 0.1 % (0.0-2.0); EOS # 0.3 K/uL (0.0-0.7); EOS % 2.2 % (0.0-4.0); HEMOGLOBIN 10.4 g/dL (11.0-16.0); LYMPH # 0.9 K/uL (1.0-4.3); LYMPH % 5.5 % (20.0-40.0); MEAN CELL VOLUME 82.7 fL (81.0-99.0); MEAN CORPUSCULAR HEMOGLOBIN 27.3 pg (27.0-31.0); MEAN PLATELET VOLUME 11.1 fL (7.2-11.7); MONO # 1.1 K/uL (0.0-0.8); NEUT # 13.6 K/uL (1.8-7.0); NEUT % 85.2 % (50.0-75.0); PLATELET COUNT 130 K/uL (130-400); RBC 3.81 Mil/uL (3.80-5.20); RED CELL DISTRIBUTION WIDTH 16.1 % (11.5-14.5)
[2018-08-06 08:37] LABS: ALB/GLOB RATIO 1.3 (1.0-2.1); ALBUMIN 3.2 g/dL (3.5-5.0); CALCIUM 8.7 mg/dl (8.6-10.4)
[2018-08-06 09:26] LABS: ANISOCYTOSIS SLIGHT; EOSINOPHIL 1 % (0-4); HYPOCHROMIC SLIGHT; LYMPHOCYTE 7 % (20-40); MONOCYTE 3 % (0-10); NEUTROPHIL 89 % (50-75); PLATELET ESTIMATE NORMAL (NORMAL); POLYCHROMIC SLIGHT; TOTAL CELLS COUNTED 100
[2018-08-06] MEDS: Saccharomyces Boulardi 250 mg Cap PO SCH ×2 (11:00→17:58)
[2018-08-06] MEDS: Pantoprazole 40 mg EC Tab PO SCH ×2 (11:02→21:48)
--- NOTE | 2018-08-06 11:03 | CP.PCM.PN ---
<Haseeb Moyer - Last Filed: 08/06/18 13:59> Subjective - Date & Time of Evaluation Date of Evaluation: 08/06/18 Time of Evaluation: 07:40 - Subjective Subjective: Nephrology Progress Note for Dr. Henson Patient was seen and examined at bedside. No acute events overnight. Sitting on chair comfortably. Complains of coarse voice. Patient denies chest pain, shortness of breath, palpitations, nausea, vomiting, diarrhea or constipation. 12 Point ROS performed and neg other than stated above. Objective - Vital Signs/Intake and Output Vital Signs (last 24 hours): Temp Pulse Resp BP Pulse Ox 98.6 F 94 H 20 117/68 99 08/06/18 08:00 08/06/18 08:00 08/06/18 08:00 08/06/18 08:00 08/06/18 08:00 Intake and Output: 08/06/18 08/06/18 06:59 18:59 Intake Total 504.8 Output Total 200 Balance 304.8 - Medications Medications: Current Medications Albuterol/Ipratropium (Duoneb 3 Mg/0.5 Mg (3 Ml) Ud) 3 ml INH RQ6 [facility] Last Admin: 08/06/18 07:48 Dose: 3 ml Alprazolam (Xanax) 0.25 mg PO TID PRN PRN Reason: Anxiety Stop: 08/11/18 09:01 Last Admin: 08/04/18 22:34 Dose: 0.25 mg Guaifenesin/Dextromethorphan (Robitussin Dm) 10 ml PO Q4H PRN PRN Reason: Cough and congestion Last Admin: 08/06/18 01:11 Dose: 10 ml Heparin Sodium/Sodium Chloride (Heparin 91881 Units/250ml 1/2 Normal Saline) 25,000 units in 250 mls @ 12.247 mls/hr IV .[id number] PRN; Protocol PRN Reason: ADJUST RATE PER PROTOCOL Last Admin: 08/06/18 03:52 Dose: 12 units/kg/hr, 8.709 mls/hr Cefepime HCl 1 gm/ Sodium (Chloride) 100 mls @ 100 mls/hr IVPB Q24H [facility]; Protocol Last Admin: 08/06/18 01:12 Dose: 100 mls/hr Metolazone (Zaroxolyn) 5 mg PO DAILY [facility] Last Admin: 08/04/18 09:19 Dose: 5 mg Metronidazole (Flagyl) 500 mg PO Q8 [facility]; Protocol Last Admin: 08/06/18 05:34 Dose: 500 mg Pantoprazole Sodium (Protonix Ec Tab) 40 mg PO Q12 [facility] Last Admin: 08/05/18 21:42 Dose: 40 mg Saccharomyces Boulardii (Florastor) 250 mg PO BID [facility] Last Admin: 08/05/18 19:06 Dose: 250 mg - Labs Labs: 08/06/18 07:54 08/06/18 07:54 PT 17.9 SECONDS (9.7-12.2) H 08/05/18 06:18 INR 1.6 08/05/18 06:18 APTT 53 SECONDS (21-34) H 08/06/18 07:54 - Constitutional Appears: No Acute Distress - Head Exam Head Exam: ATRAUMATIC, NORMOCEPHALIC - Eye Exam Eye Exam: EOMI - ENT Exam ENT Exam: Mucous Membranes Moist - Respiratory Exam Respiratory Exam: Clear to Ausculation Bilateral. absent: Rales, Wheezes - Cardiovascular Exam Cardiovascular Exam: REGULAR RHYTHM, +S1, +S2 - GI/Abdominal Exam GI & Abdominal Exam: Soft. absent: Distended, Tenderness - Extremities Exam Extremities Exam: absent: Calf Tenderness - Neurological Exam Neurological Exam: Alert, Awake - Skin Skin Exam: Dry, Warm Assessment and Plan - Assessment and Plan (Free Text) Assessment: Patient with pmh of anxiety, possible UTI, on OCP admitted with b/l PE and PNA, septic shock and acute renal failure requiring HD. -Cont to monitor Cr for improvement - today Cr 3.4 -Dialyzed yesterday; tolerating HD well; -On cefepime for PNA, renal dosed for CrCl < 20 -Cont heparin drip for PE; recommend to start coumadin rather than eliquis, at least until we can determine if she will need prolonged HD (in which case HD catheter will need to be converted to tunneled one); -Avoid all nephrotoxic agents (NSAIDS, phosphate enema, IV dye) Case and plan was reviewed and discussed with Dr Henson. <Pato Henson - Last Filed: 08/07/18 08:12> Objective - Vital Signs/Intake and Output Vital Signs (last 24 hours): Temp Pulse Resp BP Pulse Ox 98.3 F 85 20 131/77 99 08/07/18 07:00 08/07/18 07:30 08/07/18 07:00 08/07/18 07:00 08/07/18 07:00 Intake and Output: 08/07/18 08/07/18 06:59 18:59 Intake Total 619.6 Output Total 3 Balance 616.6 - Medications Medications: Current Medications Albuterol/Ipratropium (Duoneb 3 Mg/0.5 Mg (3 Ml) Ud) 3 ml INH RQ6 [facility] Last Admin: 08/07/18 07:53 Dose: 3 ml Alprazolam (Xanax) 0.25 mg PO TID PRN PRN Reason: Anxiety Stop: 08/11/18 09:01 Last Admin: 08/06/18 22:33 Dose: 0.25 mg Guaifenesin/Dextromethorphan (Robitussin Dm) 10 ml PO Q4H PRN PRN Reason: Cough and congestion Last Admin: 08/07/18 02:13 Dose: 10 ml Heparin Sodium/Sodium Chloride (Heparin 85255 Units/250ml 1/2 Normal Saline) 25,000 units in 250 mls @ 12.247 mls/hr IV .[id number] PRN; Protocol PRN Reason: ADJUST RATE PER PROTOCOL Last Admin: 08/06/18 03:52 Dose: 12 units/kg/hr, 8.709 mls/hr Cefepime HCl 1 gm/ Sodium (Chloride) 100 mls @ 100 mls/hr IVPB Q24H [facility]; Protocol Last Admin: 08/07/18 00:08 Dose: 100 mls/hr Metolazone (Zaroxolyn) 5 mg PO DAILY [facility] Last Admin: 08/04/18 09:19 Dose: 5 mg Metronidazole (Flagyl) 500 mg PO Q8 [facility]; Protocol Last Admin: 08/07/18 05:49 Dose: 500 mg Pantoprazole Sodium (Protonix Ec Tab) 40 mg PO Q12 [facility] Last Admin: 08/06/18 21:48 Dose: 40 mg Saccharomyces Boulardii (Florastor) 250 mg PO BID [facility] Last Admin: 08/06/18 17:58 Dose: 250 mg - Labs Labs: 10/12/18 05:30 08/07/18 05:30 PT 17.9 SECONDS (9.7-12.2) H 08/05/18 06:18 INR 1.6 08/05/18 06:18 APTT 59 SECONDS (21-34) H D 08/07/18 07:00 Assessment and Plan (1) Acute renal failure Status: Acute (2) Acute respiratory failure with hypoxemia Status: Acute (3) Hypocalcemia Status: Acute (4) Metabolic acidosis Status: Resolved Attending/Attestation - Attestation I have personally seen and examined this patient.: Yes I have fully participated in the care of the patient.: Yes I have reviewed all pertinent clinical information, including history, physical exam and plan: Yes Notes (Text): Patient seen and examined; I agree with the resident's note as above with the following additions/edits: Patient with no significant pmh admitted with PE, bilateral PNA, septic shock and acute renal failure requiring HD; Last HD yesterday, tolerated well with 2L UF; brady removed and unfortunately I/O not being accurately recorded; need to see if patient is still oliguric; otherwise with stable electrolyte status; reports some dyspnea; will monitor labs closely and decide on continued need for HD tomorrow; may need to re-insert brady if we cannot get accurate I/O; should continue to avoid all nephrotoxic agents; On cefepime for bilateral PNA, continue to dose for CrCl < 20; On heparin drip for PE, discussed with primary attending, will continue the same for now before switching to either coumadin or eliquis (in case any procedure needed eg. tunneled HD cath placement);
--- NOTE | 2018-08-06 18:21 | CP.PCM.PN ---
Subjective - Date & Time of Evaluation Date of Evaluation: 08/06/18 Time of Evaluation: 16:00 - Subjective Subjective: dictated Objective - Vital Signs/Intake and Output Vital Signs (last 24 hours): Temp Pulse Resp BP Pulse Ox 98.2 F 89 20 123/72 100 08/06/18 15:00 08/06/18 15:00 08/06/18 15:00 08/06/18 15:00 08/06/18 15:00 Intake and Output: 08/06/18 08/06/18 06:59 18:59 Intake Total 504.8 60 Output Total 200 50 Balance 304.8 10 - Medications Medications: Current Medications Albuterol/Ipratropium (Duoneb 3 Mg/0.5 Mg (3 Ml) Ud) 3 ml INH RQ6 [facility] Last Admin: 08/06/18 13:42 Dose: 3 ml Alprazolam (Xanax) 0.25 mg PO TID PRN PRN Reason: Anxiety Stop: 08/11/18 09:01 Last Admin: 08/04/18 22:34 Dose: 0.25 mg Guaifenesin/Dextromethorphan (Robitussin Dm) 10 ml PO Q4H PRN PRN Reason: Cough and congestion Last Admin: 08/06/18 01:11 Dose: 10 ml Heparin Sodium/Sodium Chloride (Heparin 56331 Units/250ml 1/2 Normal Saline) 25,000 units in 250 mls @ 12.247 mls/hr IV .[id number] PRN; Protocol PRN Reason: ADJUST RATE PER PROTOCOL Last Admin: 08/06/18 03:52 Dose: 12 units/kg/hr, 8.709 mls/hr Cefepime HCl 1 gm/ Sodium (Chloride) 100 mls @ 100 mls/hr IVPB Q24H [facility]; Pr otocol Last Admin: 08/06/18 01:12 Dose: 100 mls/hr Metolazone (Zaroxolyn) 5 mg PO DAILY [facility] Last Admin: 08/04/18 09:19 Dose: 5 mg Metronidazole (Flagyl) 500 mg PO Q8 [facility]; Protocol Last Admin: 08/06/18 14:30 Dose: 500 mg Pantoprazole Sodium (Protonix Ec Tab) 40 mg PO Q12 [facility] Last Admin: 08/06/18 11:02 Dose: 40 mg Saccharomyces Boulardii (Florastor) 250 mg PO BID [facility] Last Admin: 08/06/18 17:58 Dose: 250 mg - Labs Labs: 08/06/18 07:54 08/06/18 07:54 PT 17.9 SECONDS (9.7-12.2) H 08/05/18 06:18 INR 1.6 08/05/18 06:18 APTT 53 SECONDS (21-34) H 08/06/18 07:54
--- NOTE | 2018-08-06 21:49 | PN ---
DATE: 08/06/2018 SUBJECTIVE: The patient is afebrile. Pulse rate is unremarkable. Blood pressure is okay, respirations are 20. She still has a triple lumen on the left side and she has this dialysis catheter and ecchymosis on her left neck. She is breathing easier. PHYSICAL EXAMINATION: VITAL SIGNS: Stable. CARDIOPULMONARY: S1, S2, regular. LUNGS: Clear. ABDOMEN: Soft, nontender. No guarding, no rigidity present. EXTREMITIES: Trace edema present in the legs. LABORATORY DATA: White count is 16 today; hemoglobin 10.4; hematocrit 31.5; platelet count is 130, it is improving. This patient presented with pulmonary embolism, respiratory failure. Her procalcitonin is high, but she has renal insufficiency, so it has probably increased because of that too. IMPRESSION: So at this time, she is on Maxipime and Flagyl, we will continue that. WBC is decreasing, and if the white count increases further and the patient improves further, we will follow and see in a few days if we can get the antibiotics to be discontinued, but at this time, I will continue the antibiotics. Smitha Slater MD
--- NOTE | 2018-08-06 22:43 | CP.PCM.PN ---
<Rachel Lanza P - Last Filed: 08/06/18 23:00> Subjective - Date & Time of Evaluation Date of Evaluation: 08/06/18 Time of Evaluation: 08:00 - Subjective Subjective: Patient seen and examined at bedside, in no acute distress. Has no acute complaints at this time. Denies chest pain, shortness of breath, nausea, vomiting, fever, and chills. Objective - Vital Signs/Intake and Output Vital Signs (last 24 hours): Temp Pulse Resp BP Pulse Ox 98.2 F 89 20 123/72 100 08/06/18 15:00 08/06/18 15:00 08/06/18 15:00 08/06/18 15:00 08/06/18 15:00 Intake and Output: 08/06/18 08/07/18 18:59 06:59 Intake Total 60 Output Total 50 Balance 10 - Medications Medications: Current Medications Albuterol/Ipratropium (Duoneb 3 Mg/0.5 Mg (3 Ml) Ud) 3 ml INH RQ6 KACY Last Admin: 08/06/18 19:45 Dose: 3 ml Alprazolam (Xanax) 0.25 mg PO TID PRN PRN Reason: Anxiety Stop: 08/11/18 09:01 Last Admin: 08/06/18 22:33 Dose: 0.25 mg Guaifenesin/Dextromethorphan (Robitussin Dm) 10 ml PO Q4H PRN PRN Reason: Cough and congestion Last Admin: 08/06/18 22:26 Dose: 10 ml Heparin Sodium/Sodium Chloride (Heparin 99724 Units/250ml 1/2 Normal Saline) 25,000 units in 250 mls @ 12.247 mls/hr IV .[id number] PRN; Protocol PRN Reason: ADJUST RATE PER PROTOCOL Last Admin: 08/06/18 03:52 Dose: 12 units/kg/hr, 8.709 mls/hr Cefepime HCl 1 gm/ Sodium (Chloride) 100 mls @ 100 mls/hr IVPB Q24H [facility]; Protocol Last Admin: 08/06/18 01:12 Dose: 100 mls/hr Metolazone (Zaroxolyn) 5 mg PO DAILY [facility]Y Last Admin: 08/04/18 09:19 Dose: 5 mg Metronidazole (Flagyl) 500 mg PO Q8 [facility]; Protocol Last Admin: 08/06/18 21:48 Dose: 500 mg Pantoprazole Sodium (Protonix Ec Tab) 40 mg PO Q12 [facility] Last Admin: 08/06/18 21:48 Dose: 40 mg Saccharomyces Boulardii (Florastor) 250 mg PO BID [facility] Last Admin: 08/06/18 17:58 Dose: 250 mg - Labs Labs: 08/06/18 07:54 08/06/18 07:54 PT 17.9 SECONDS (9.7-12.2) H 08/05/18 06:18 INR 1.6 08/05/18 06:18 APTT 53 SECONDS (21-34) H 08/06/18 07:54 - Constitutional Appears: No Acute Distress - Head Exam Head Exam: ATRAUMATIC, NORMOCEPHALIC - Eye Exam Eye Exam: EOMI - ENT Exam ENT Exam: Mucous Membranes Moist - Neck Exam Neck Exam: Full ROM Additional comments: HD catheter and triple lumen catheter in place - Respiratory Exam Respiratory Exam: Wheezes. absent: Rales, Rhonchi - Cardiovascular Exam Cardiovascular Exam: REGULAR RHYTHM, +S1, +S2 - GI/Abdominal Exam GI & Abdominal Exam: Soft. absent: Guarding, Tenderness, Rebound - Extremities Exam Extremities Exam: Pedal Edema (trace bilaterally). absent: Tenderness - Neurological Exam Neurological Exam: Alert, Awake, Oriented x3 - Psychiatric Exam Psychiatric exam: Normal Affect, Normal Mood - Skin Skin Exam: Warm. absent: Normal Color (ecchymosis to L neck and L forehead) Assessment and Plan - Assessment and Plan (Free Text) Plan: Patient with PMHx of anxiety, possible UTI, on OCP admitted with b/l PE and PNA, septic shock and acute renal failure requiring HD. Bilateral PE -CTA chest showed diffuse bilateral pulmonary emboli involving bilateral central and segmental pulmonary arteries, cardiac silhouette enlarged, there is evidence of pulmonary venous congestion compatible with CHF, left basilar atelectasis vs pulmonary infarct (official report pending) -LE duplex shows left acute thrombosis of the left common femoral vein -echo showed LVEF 50-55%, mild to moderate TR and pulmonary hypertension -s/p respiratory arrest, ACLS performed -Patient on heparin drip Pneumonia -CXR: patchy infiltrate within RUL and LML (see full report) -Duonebs -Guaifenesin/DM 10ml PO Q4H PRN -Cefepime 1gm IV daily -Flagyl 500 mg PO Q8H -Dr. Slater, ID, consulted. Help appreciated. Acute renal failure -On hemodialysis -Cr improving -Dr. Henson, nephro consulted. Help appreciated. Atrial Fibrillation with RVR -Initial EKG showed afib with rate of 146 bpm -Patient on heparin drip Anxiety - Xanax 0.25mg PO TID PRN GI/DVT ppx: -Protonix 40mg IVP Q12H -Florastor 250 BID <Matthew Njaera - Last Filed: 08/07/18 19:25> Objective - Vital Signs/Intake and Output Vital Signs (last 24 hours): Temp Pulse Resp BP Pulse Ox 98.4 F 92 H 22 129/78 99 08/07/18 14:38 08/07/18 14:38 08/07/18 14:38 08/07/18 17:20 08/07/18 13:50 Intake and Output: 08/07/18 08/08/18 18:59 06:59 Intake Total 250 Balance 250 - Medications Medications: Current Medications Albuterol/Ipratropium (Duoneb 3 Mg/0.5 Mg (3 Ml) Ud) 3 ml INH RQ6 [facility] Last Admin: 08/07/18 13:21 Dose: Not Given Alprazolam (Xanax) 0.25 mg PO TID PRN PRN Reason: Anxiety Stop: 08/11/18 09:01 Last Admin: 08/07/18 08:49 Dose: 0.25 mg Aspirin (Aspirin Chewable) 81 mg PO DAILY [facility] Clopidogrel Bisulfate (Plavix) 75 mg PO DAILY [facility] Famotidine (Pepcid) 20 mg PO DAILY [facility] Guaifenesin/Dextromethorphan (Robitussin Dm) 10 ml PO Q4H PRN PRN Reason: Cough and congestion Last Admin: 08/07/18 02:13 Dose: 10 ml Heparin Sodium/Sodium Chloride (Heparin 34942 Units/250ml 1/2 Normal Saline) 25,000 units in 250 mls @ 12.247 mls/hr IV .[id number] PRN; Protocol PRN Reason: ADJUST RATE PER PROTOCOL Last Admin: 08/07/18 10:37 Dose: 12 units/kg/hr, 8.709 mls/hr Cefepime HCl 1 gm/ Sodium (Chloride) 100 mls @ 100 mls/hr IVPB Q24H [facility]; Protocol Last Admin: 08/07/18 00:08 Dose: 100 mls/hr Lidocaine HCl (Lidocaine 2% Viscous) 5 ml PO Q3H PRN PRN Reason: Other Metoprolol Succinate (Toprol Xl) 25 mg PO DAILY [facility] Metoprolol Succinate (Toprol Xl) 25 mg PO ONCE ONE Stop: 08/08/18 19:06 Metronidazole (Flagyl) 500 mg PO Q8 [facility]; Protocol Last Admin: 08/07/18 13:05 Dose: 500 mg Nystatin (Nystatin Oral Susp) 5 ml PO QID [facility] Last Admin: 08/07/18 18:42 Dose: 5 ml Oxycodone HCl (Oxycodone Immediate Release Tab) 5 mg PO Q6 PRN PRN Reason: Pain, moderate (4-7) Last Admin: 08/07/18 17:25 Dose: 5 mg Rosuvastatin Calcium (Crestor) 20 mg PO HS [facility] Saccharomyces Boulardii (Florastor) 250 mg PO BID [facility] Last Admin: 08/07/18 18:42 Dose: 250 mg - Labs Labs: 08/07/18 05:30 08/07/18 05:30 PT 17.9 SECONDS (9.7-12.2) H 08/05/18 06:18 INR 1.6 08/05/18 06:18 APTT 59 SECONDS (21-34) H D 08/07/18 07:00 Attending/Attestation - Attestation I have personally seen and examined this patient.: Yes I have fully participated in the care of the patient.: Yes I have reviewed all pertinent clinical information, including history, physical exam and plan: Yes Notes (Text): Seen and examined by with Discussed with her daughter at bedside No pain,breathing better Getting heparin drip dialysis as per Dr Henson After discussion with core setter and salvage supervisor decided to keep IV heparin for now continue antibiotics as per Dr Slater Patient is feeling little better Agree with the resident's documentation .Assessment and the plan discussed
[2018-08-07] MEDS: Cefepime 1 GM in Sodium Chloride 0.9% 100 ML IVPB SCH (00:08)
[2018-08-07] MEDS: Albuterol-Ipratrop 3 mg / 0.5 (3 ml) UD INH SCH ×4 (01:00→19:33)
[2018-08-07] MEDS: guaiFENesin DM 200 mg-20 mg/10 ml UD PO PRN ×2 (02:13→22:29)
[2018-08-07 05:43] LABS: BASO % 0.2 % (0.0-2.0); EOS # 0.2 K/uL (0.0-0.7); HEMOGLOBIN 9.6 g/dL (11.0-16.0); LYMPH # 0.7 K/uL (1.0-4.3); LYMPH % 5.4 % (20.0-40.0); MEAN CELL VOLUME 82.6 fL (81.0-99.0); MEAN CORPUSCULAR HEMOGLOBIN 27.7 pg (27.0-31.0); MEAN CORPUSCULAR HGB CONC 33.5 g/dL (33.0-37.0); MEAN PLATELET VOLUME 10.6 fL (7.2-11.7); MONO % 8.2 % (0.0-10.0); NEUT # 10.4 K/uL (1.8-7.0); NEUT % 84.2 % (50.0-75.0); PLATELET COUNT 119 K/uL (130-400); RBC 3.47 Mil/uL (3.80-5.20); RED CELL DISTRIBUTION WIDTH 16.7 % (11.5-14.5); WHITE BLOOD COUNT 12.3 K/uL (4.8-10.8)
[2018-08-07 05:51] LABS: ALB/GLOB RATIO 1.1 (1.0-2.1); CALCIUM 8.4 mg/dl (8.6-10.4)
[2018-08-07 08:32] LABS: BANDS 2 % (0-2); LYMPHOCYTE 5 % (20-40); MONOCYTE 7 % (0-10); NEUTROPHIL 86 % (50-75); PLATELET ESTIMATE SLIGHTLY DECREASED (NORMAL); TOTAL CELLS COUNTED 100
[2018-08-07 08:35] LABS: ANISOCYTOSIS SLIGHT; HYPOCHROMIC SLIGHT; POLYCHROMIC SLIGHT
[2018-08-07 08:36] LABS: TOXIC GRANULATION PRESENT
--- NOTE | 2018-08-07 09:04 | CP.PCM.PN ---
<Airam Rasmussen - Last Filed: 08/07/18 17:49> Subjective - Date & Time of Evaluation Date of Evaluation: 08/07/18 Time of Evaluation: 08:00 - Subjective Subjective: Cardiology Progress Note Airam Rasmussen, PGY1 note for Dr. Ba Patient seen and examined at bedside this morning. No acute events overnight. Has no complaints at this time. Doing well on 2L NC. Will need cardiac cath. Objective - Vital Signs/Intake and Output Vital Signs (last 24 hours): Temp Pulse Resp BP Pulse Ox 98.3 F 85 20 131/77 99 08/07/18 07:00 08/07/18 07:30 08/07/18 07:00 08/07/18 07:00 08/07/18 07:00 Intake and Output: 08/07/18 08/07/18 06:59 18:59 Intake Total 619.6 Output Total 3 Balance 616.6 - Medications Medications: Current Medications Albuterol/Ipratropium (Duoneb 3 Mg/0.5 Mg (3 Ml) Ud) 3 ml INH RQ6 [facility] Last Admin: 08/07/18 07:53 Dose: 3 ml Alprazolam (Xanax) 0.25 mg PO TID PRN PRN Reason: Anxiety Stop: 08/11/18 09:01 Last Admin: 08/07/18 08:49 Dose: 0.25 mg Guaifenesin/Dextromethorphan (Robitussin Dm) 10 ml PO Q4H PRN PRN Reason: Cough and congestion Last Admin: 08/07/18 02:13 Dose: 10 ml Heparin Sodium/Sodium Chloride (Heparin 18810 Units/250ml 1/2 Normal Saline) 25,000 units in 250 mls @ 12.247 mls/hr IV .[id number] PRN; Protocol PRN Reason: ADJUST RATE PER PROTOCOL Last Admin: 08/06/18 03:52 Dose: 12 units/kg/hr, 8.709 mls/hr Cefepime HCl 1 gm/ Sodium (Chloride) 100 mls @ 100 mls/hr IVPB Q24H [facility]; Pro tocol Last Admin: 08/07/18 00:08 Dose: 100 mls/hr Metolazone (Zaroxolyn) 5 mg PO DAILY [facility] Last Admin: 08/04/18 09:19 Dose: 5 mg Metronidazole (Flagyl) 500 mg PO Q8 [facility]; Protocol Last Admin: 08/07/18 05:49 Dose: 500 mg Pantoprazole Sodium (Protonix Ec Tab) 40 mg PO Q12 [facility] Last Admin: 08/06/18 21:48 Dose: 40 mg Saccharomyces Boulardii (Florastor) 250 mg PO BID [facility] Last Admin: 08/06/18 17:58 Dose: 250 mg - Labs Labs: 08/07/18 05:30 08/07/18 05:30 PT 17.9 SECONDS (9.7-12.2) H 08/05/18 06:18 INR 1.6 08/05/18 06:18 APTT 59 SECONDS (21-34) H D 08/07/18 07:00 - Constitutional Appears: No Acute Distress - Head Exam Head Exam: NORMOCEPHALIC Additional comments: left sided frontal ecchymosis - Eye Exam Eye Exam: EOMI Pupil Exam: PERRL - ENT Exam ENT Exam: Mucous Membranes Moist - Respiratory Exam Respiratory Exam: Clear to Ausculation Bilateral. absent: Respiratory Distress - Cardiovascular Exam Cardiovascular Exam: REGULAR RHYTHM, +S1, +S2 - GI/Abdominal Exam GI & Abdominal Exam: Normal Bowel Sounds. absent: Guarding, Rigid - Extremities Exam Extremities Exam: Normal Inspection. absent: Calf Tenderness - Neurological Exam Neurological Exam: Alert, Awake - Skin Skin Exam: Warm Additional comments: ecchymosis noted on B/L upper extremities Assessment and Plan - Assessment and Plan (Free Text) Assessment: This is a 48 year old female with PMH of anxiety presenting to the ED s/p witnessed syncopal episode after return from [place] on bus. Plan: B/L P.E. -will need cardiac cath -continue heparin drip -O2 sat is 96% on 2L NC -received HD on 08/05 -Chest CT shows evidence of pneumonia, possible atelectasis/pulmonary infarct. Small B/L pleural effusions -off of pressors, sedation -echo showed LVEF 50-55%, mild to moderate TR and pulmonary hypertension -no need for IVC filter at this time -will not do EKOS at this time due to unknown status of prothrombotic state -CTA showed diffuse bilateral pulmonary emboli of B/L central and segmental pulmonary arteries, pulmonary venous congestion compatible with CHF vs left basilar atelectasis vs pulmonary infarct -D-dimer > 5250, PT/INR/PTT elevated, elevated fibrinogen products -s/p respiratory arrest, ACLS performed -LE duplex shows left acute thrombosis of the left common femoral vein Afib -EKG on admission showed afib with RVR at 146bpm, uncertain if new finding Case discussed with attending, further recommendations per Dr. Ba <Ignacio Ba - Last Filed: 08/07/18 18:42> Objective - Vital Signs/Intake and Output Vital Signs (last 24 hours): Temp Pulse Resp BP Pulse Ox 98.4 F 92 H 22 129/78 99 08/07/18 14:38 08/07/18 14:38 08/07/18 14:38 08/07/18 17:20 08/07/18 13:50 Intake and Output: 08/07/18 08/07/18 06:59 18:59 Intake Total 619.6 250 Output Total 3 Balance 616.6 250 - Medications Medications: Current Medications Albuterol/Ipratropium (Duoneb 3 Mg/0.5 Mg (3 Ml) Ud) 3 ml INH RQ6 [facility] Last Admin: 08/07/18 13:21 Dose: Not Given Alprazolam (Xanax) 0.25 mg PO TID PRN PRN Reason: Anxiety Stop: 08/11/18 09:01 Last Admin: 08/07/18 08:49 Dose: 0.25 mg Aspirin (Aspirin Chewable) 81 mg PO DAILY [facility] Clopidogrel Bisulfate (Plavix) 75 mg PO DAILY [facility] Guaifenesin/Dextromethorphan (Robitussin Dm) 10 ml PO Q4H PRN PRN Reason: Cough and congestion Last Admin: 08/07/18 02:13 Dose: 10 ml Heparin Sodium/Sodium Chloride (Heparin 04304 Units/250ml 1/2 Normal Saline) 25,000 units in 250 mls @ 12.247 mls/hr IV .[id number] PRN; Protocol PRN Reason: ADJUST RATE PER PROTOCOL Last Admin: 08/07/18 10:37 Dose: 12 units/kg/hr, 8.709 mls/hr Cefepime HCl 1 gm/ Sodium (Chloride) 100 mls @ 100 mls/hr IVPB Q24H [facility]; Protocol Last Admin: 08/07/18 00:08 Dose: 100 mls/hr Lidocaine HCl (Lidocaine 2% Viscous) 5 ml PO Q3H PRN PRN Reason: Other Metolazone (Zaroxolyn) 5 mg PO DAILY [facility] Last Admin: 08/04/18 09:19 Dose: 5 mg Metoprolol Succinate (Toprol Xl) 25 mg PO DAILY [facility] Metronidazole (Flagyl) 500 mg PO Q8 [facility]; Protocol Last Admin: 08/07/18 13:05 Dose: 500 mg Nystatin (Nystatin Oral Susp) 5 ml PO QID [facility] Oxycodone HCl (Oxycodone Immediate Release Tab) 5 mg PO Q6 PRN PRN Reason: Pain, moderate (4-7) Last Admin: 08/07/18 17:25 Dose: 5 mg Pantoprazole Sodium (Protonix Ec Tab) 40 mg PO Q12 [facility] Last Admin: 08/07/18 09:06 Dose: 40 mg Saccharomyces Boulardii (Florastor) 250 mg PO BID [facility] Last Admin: 08/07/18 09:07 Dose: 250 mg - Labs Labs: 08/07/18 05:30 08/07/18 05:30 PT 17.9 SECONDS (9.7-12.2) H 08/05/18 06:18 INR 1.6 08/05/18 06:18 APTT 59 SECONDS (21-34) H D 08/07/18 07:00 Attending/Attestation - Attestation I have personally seen and examined this patient.: Yes I have fully participated in the care of the patient.: Yes I have reviewed all pertinent clinical information, including history, physical exam and plan: Yes Notes (Text): 08/07/18 18:41 NSTEMI - TnI 5.08 IV heparin ASA, plavix statins bb repeat echo cath on friday
[2018-08-07] MEDS: Pantoprazole 40 mg EC Tab PO SCH (09:06)
[2018-08-07] MEDS: Saccharomyces Boulardi 250 mg Cap PO SCH ×2 (09:07→18:42)
--- NOTE | 2018-08-07 10:09 | CP.PCM.PN ---
<Haseeb Moyer - Last Filed: 08/07/18 13:24> Subjective - Date & Time of Evaluation Date of Evaluation: 08/07/18 Time of Evaluation: 10:00 - Subjective Subjective: Nephrology Progress Note for Dr. Henson Patient was seen and examined at bedside. No acute events overnight. Complains of coughing and some discomfort of by her lips. Complains of coarse voice. Patient denies chest pain, shortness of breath, palpitations, nausea, vomiting, diarrhea or constipation. 12 Point ROS performed and neg other than stated above. Objective - Vital Signs/Intake and Output Vital Signs (last 24 hours): Temp Pulse Resp BP Pulse Ox 98.3 F 85 20 131/77 99 08/07/18 07:00 08/07/18 07:30 08/07/18 07:00 08/07/18 07:00 08/07/18 07:00 Intake and Output: 08/07/18 08/07/18 06:59 18:59 Intake Total 619.6 Output Total 3 Balance 616.6 - Medications Medications: Current Medications Albuterol/Ipratropium (Duoneb 3 Mg/0.5 Mg (3 Ml) Ud) 3 ml INH RQ6 [facility] Last Admin: 08/07/18 07:53 Dose: 3 ml Alprazolam (Xanax) 0.25 mg PO TID PRN PRN Reason: Anxiety Stop: 08/11/18 09:01 Last Admin: 08/07/18 08:49 Dose: 0.25 mg Guaifenesin/Dextromethorphan (Robitussin Dm) 10 ml PO Q4H PRN PRN Reason: Cough and congestion Last Admin: 08/07/18 02:13 Dose: 10 ml Heparin Sodium/Sodium Chloride (Heparin 20103 Units/250ml 1/2 Normal Saline) 25,000 units in 250 mls @ 12.247 mls/hr IV .[id number] PRN; Protocol PRN Reason: ADJUST RATE PER PROTOCOL Last Admin: 08/06/18 03:52 Dose: 12 units/kg/hr, 8.709 mls/hr Cefepime HCl 1 gm/ Sodium (Chloride) 100 mls @ 100 mls/hr IVPB Q24H [facility]; Protocol Last Admin: 08/07/18 00:08 Dose: 100 mls/hr Metolazone (Zaroxolyn) 5 mg PO DAILY [facility] Last Admin: 08/04/18 09:19 Dose: 5 mg Metronidazole (Flagyl) 500 mg PO Q8 [facility]; Protocol Last Admin: 08/07/18 05:49 Dose: 500 mg Pantoprazole Sodium (Protonix Ec Tab) 40 mg PO Q12 [facility] Last Admin: 08/07/18 09:06 Dose: 40 mg Saccharomyces Boulardii (Florastor) 250 mg PO BID [facility] Last Admin: 08/07/18 09:07 Dose: 250 mg - Labs Labs: 08/07/18 05:30 08/07/18 05:30 PT 17.9 SECONDS (9.7-12.2) H 08/05/18 06:18 INR 1.6 08/05/18 06:18 APTT 59 SECONDS (21-34) H D 08/07/18 07:00 - Constitutional Appears: No Acute Distress - Head Exam Head Exam: ATRAUMATIC, NORMOCEPHALIC - Eye Exam Eye Exam: EOMI - ENT Exam ENT Exam: Mucous Membranes Moist Additional comments: Inner upper lip: oral sore and blister White patches on the tongue - Respiratory Exam Respiratory Exam: absent: Clear to Ausculation Bilateral, Rales, Wheezes - Cardiovascular Exam Cardiovascular Exam: REGULAR RHYTHM, +S1, +S2 - GI/Abdominal Exam GI & Abdominal Exam: Soft. absent: Distended, Tenderness - Extremities Exam Extremities Exam: absent: Calf Tenderness, Pedal Edema - Neurological Exam Neurological Exam: Alert, Awake - Skin Skin Exam: Dry, Warm Assessment and Plan - Assessment and Plan (Free Text) Assessment: Patient with pmh of anxiety, possible UTI, on OCP admitted with b/l PE and PNA, septic shock and acute renal failure requiring HD. - Plan for HD today, will replenish K of 3.0 during dialysis -Brady insertion for accurate strict monitoring of I and O, and to eval if still oligouric - Started Nystatin swish swallow for white patches on the tongue consistant with [place]; Lidocaine oral jeanette PO for sore/ blister on the inner upper lip -Cont to monitor Cr for improvement - today Cr 3.4 -On cefepime for PNA, renal dosed for CrCl < 20 -Cont heparin drip for PE; no oral anticoagulation in case any procedure needed eg. tunneled HD cath -Avoid all nephrotoxic agents (NSAIDS, phosphate enema, IV dye) Case and plan was reviewed and discussed with Dr Henson. <Pato Henson - Last Filed: 08/08/18 08:52> Objective - Vital Signs/Intake and Output Vital Signs (last 24 hours): Temp Pulse Resp BP Pulse Ox 98.8 F 95 H 18 119/73 100 08/08/18 07:00 08/08/18 07:00 08/08/18 07:00 08/08/18 07:00 08/08/18 07:00 Intake and Output: 08/08/18 08/08/18 06:59 18:59 Intake Total 350 Output Total 650 Balance -300 - Medications Medications: Current Medications Albuterol/Ipratropium (Duoneb 3 Mg/0.5 Mg (3 Ml) Ud) 3 ml INH RQ6 [facility] Last Admin: 08/08/18 01:38 Dose: 3 ml Alprazolam (Xanax) 0.25 mg PO TID PRN PRN Reason: Anxiety Stop: 08/11/18 09:01 Last Admin: 08/08/18 00:31 Dose: 0.25 mg Aspirin (Aspirin Chewable) 81 mg PO DAILY [facility] Clopidogrel Bisulfate (Plavix) 75 mg PO DAILY [facility] Famotidine (Pepcid) 20 mg PO DAILY [facility] Guaifenesin/Dextromethorphan (Robitussin Dm) 10 ml PO Q4H PRN PRN Reason: Cough and congestion Last Admin: 08/07/18 22:29 Dose: 10 ml Heparin Sodium/Sodium Chloride (Heparin 17317 Units/250ml 1/2 Normal Saline) 25,000 units in 250 mls @ 12.247 mls/hr IV .[id number] PRN; Protocol PRN Reason: ADJUST RATE PER PROTOCOL Last Admin: 08/07/18 10:37 Dose: 12 units/kg/hr, 8.709 mls/hr Cefepime HCl 1 gm/ Sodium (Chloride) 100 mls @ 100 mls/hr IVPB Q24H [facility]; Protocol Last Admin: 08/08/18 00:31 Dose: 100 mls/hr Lidocaine HCl (Lidocaine 2% Viscous) 5 ml PO Q3H PRN PRN Reason: Other Last Admin: 08/07/18 22:31 Dose: 5 ml Metoprolol Succinate (Toprol Xl) 25 mg PO DAILY [facility] Metoprolol Succinate (Toprol Xl) 25 mg PO ONCE ONE Stop: 08/08/18 19:06 Metronidazole (Flagyl) 500 mg PO Q8 [facility]; Protocol Last Admin: 08/08/18 05:52 Dose: 500 mg Nystatin (Nystatin Oral Susp) 5 ml PO QID [facility] Last Admin: 08/07/18 22:29 Dose: 5 ml Oxycodone HCl (Oxycodone Immediate Release Tab) 5 mg PO Q6 PRN PRN Reason: Pain, moderate (4-7) Last Admin: 08/07/18 17:25 Dose: 5 mg Pantoprazole Sodium (Protonix Ec Tab) 40 mg PO DAILY [facility] Rosuvastatin Calcium (Crestor) 20 mg PO HS [facility] Last Admin: 08/07/18 22:31 Dose: 20 mg Saccharomyces Boulardii (Florastor) 250 mg PO BID [facility] Last Admin: 08/07/18 18:42 Dose: 250 mg - Labs Labs: 08/08/18 04:00 08/08/18 06:19 PT 17.9 SECONDS (9.7-12.2) H 08/05/18 06:18 INR 1.6 08/05/18 06:18 APTT 60 SECONDS (21-34) H 08/08/18 06:19 Assessment and Plan (1) Acute renal failure Status: Acute (2) Acute respiratory failure with hypoxemia Status: Acute (3) Hypocalcemia Status: Acute (4) Metabolic acidosis Status: Resolved Attending/Attestation - Attestation I have personally seen and examined this patient.: Yes I have fully participated in the care of the patient.: Yes I have reviewed all pertinent clinical information, including history, physical exam and plan: Yes Notes (Text): atient seen and examined; I agree with the resident's note as above with the following additions/edits: Patient with no significant pmh admitted with PE, bilateral PNA, septic shock and acute renal failure requiring HD; Patient with chest pain today; workup revealed large troponin elevation; may need cardiac cath per cardio; agree that risk of nephrotoxicity outweighed by need to address possible coronary thrombus; ATN, not yet resolving with serum creatinine increasing; dialyzing again today with 2L UF goal on 4K dialysate (hypokalemia noted); will plan to hold HD over the weekend and re-assess; brady re-inserted to obtain accurate I/O; avoid nephrotoxic agents; On cefepime 1 g daily, dosed for HD; On heparin drip for both PE and now NSTEMI;
--- NOTE | 2018-08-07 10:36 | RAD ---
Date of service: 08/07/2018 HISTORY: Chest pain COMPARISON: Comparison made with prior study 08/02/2018 FINDINGS: No change right IJ dialysis catheter with the tip in the RA/IVC junction. No change left-sided IJ central venous line with tip in the SVC/RA junction LUNGS: Re demonstrated are patchy bilateral infiltrate changes with slight increased pulmonary vascularity suggesting mild underlying pulmonary venous congestion. Bilateral effusions right larger than PLEURA: No significant pleural effusion identified, no pneumothorax apparent. CARDIOVASCULAR: Normal. OSSEOUS STRUCTURES: No significant abnormalities. VISUALIZED UPPER ABDOMEN: Normal. OTHER FINDINGS: None. IMPRESSION: Intravenous access lines as described. Patchy bilateral infiltrates with mild pulmonary venous congestive changes and bilateral effusions right larger than left
[2018-08-07] MEDS: Heparin25000 units/250ml 1/2NS 25,000 UNITS/250 ML BAG IV PRN (10:37)
[2018-08-07 13:48] LABS: CK-MB 5.83 ng/mL (0.0-3.38)
[2018-08-07 15:16] LABS: TROPONIN I 1.38 ng/mL (0.00-0.120)
[2018-08-07] MEDS: oxyCODONE 5 mg Immediate Release Tab PO PRN (17:25)
[2018-08-07 18:36] LABS: CK-MB 28.3 ng/mL (0.0-3.38); TROPONIN I 5.08 ng/mL (0.00-0.120)
[2018-08-07] MEDS: Nystatin 100,000 Units/ml Oral Susp 5 ml UD PO SCH ×2 (18:42→22:29)
--- NOTE | 2018-08-07 19:07 | CP.PCM.PN ---
<Rachel Lanza P - Last Filed: 08/07/18 22:43> Subjective - Date & Time of Evaluation Date of Evaluation: 08/07/18 Time of Evaluation: 19:07 - Subjective Subjective: PGY-[address] Najera. Patient seen and evaluated at bedside. Patient complaining of chest pain radiating to back that began this morning while coughing. Also complains of blood streaked sputum and painful mouth ulcers. Denies shortness of breath, diaphoresis, nausea, vomiting, fever and chills. XRay, EKG and troponins obtained. Troponin noted to be elevated at 1.3 and again at 5.0. Patient received Aspirin 81mg, Plavix 300mg, Metoprolol XL 25mg. Dr. Ba made aware, will take patient to oil laboratory analyst on 08/10. Objective - Vital Signs/Intake and Output Vital Signs (last 24 hours): Temp Pulse Resp BP Pulse Ox 98.4 F 92 H 22 129/78 99 08/07/18 14:38 08/07/18 14:38 08/07/18 14:38 08/07/18 17:20 08/07/18 13:50 Intake and Output: 08/07/18 08/08/18 18:59 06:59 Intake Total 250 Balance 250 - Medications Medications: Current Medications Albuterol/Ipratropium (Duoneb 3 Mg/0.5 Mg (3 Ml) Ud) 3 ml INH RQ6 [facility] Last Admin: 08/07/18 13:21 Dose: Not Given Alprazolam (Xanax) 0.25 mg PO TID PRN PRN Reason: Anxiety Stop: 08/11/18 09:01 Last Admin: 08/07/18 08:49 Dose: 0.25 mg Aspirin (Aspirin Chewable) 81 mg PO DAILY [facility] Clopidogrel Bisulfate (Plavix) 75 mg PO DAILY [facility] Famotidine (Pepcid) 20 mg PO BID [facility] Guaifenesin/Dextromethorphan (Robitussin Dm) 10 ml PO Q4H PRN PRN Reason: Cough and congestion Last Admin: 08/07/18 02:13 Dose: 10 ml Heparin Sodium/Sodium Chloride (Heparin 41720 Units/250ml 1/2 Normal Saline) 25,000 units in 250 mls @ 12.247 mls/hr IV .[id number] PRN; Protocol PRN Reason: ADJUST RATE PER PROTOCOL Last Admin: 08/07/18 10:37 Dose: 12 units/kg/hr, 8.709 mls/hr Cefepime HCl 1 gm/ Sodium (Chloride) 100 mls @ 100 mls/hr IVPB Q24H [facility]; Protocol Last Admin: 08/07/18 00:08 Dose: 100 mls/hr Lidocaine HCl (Lidocaine 2% Viscous) 5 ml PO Q3H PRN PRN Reason: Other Metoprolol Succinate (Toprol Xl) 25 mg PO DAILY [facility] Metoprolol Succinate (Toprol Xl) 25 mg PO ONCE ONE Stop: 08/08/18 19:06 Metronidazole (Flagyl) 500 mg PO Q8 [facility]; Protocol Last Admin: 08/07/18 13:05 Dose: 500 mg Nystatin (Nystatin Oral Susp) 5 ml PO QID [facility] Last Admin: 08/07/18 18:42 Dose: 5 ml Oxycodone HCl (Oxycodone Immediate Release Tab) 5 mg PO Q6 PRN PRN Reason: Pain, moderate (4-7) Last Admin: 08/07/18 17:25 Dose: 5 mg Rosuvastatin Calcium (Crestor) 20 mg PO HS [facility] Saccharomyces Boulardii (Florastor) 250 mg PO BID [facility] Last Admin: 08/07/18 18:42 Dose: 250 mg - Labs Labs: 08/07/18 05:30 08/07/18 05:30 PT 17.9 SECONDS (9.7-12.2) H 08/05/18 06:18 INR 1.6 08/05/18 06:18 APTT 59 SECONDS (21-34) H D 08/07/18 07:00 - Additional Findings Additional findings: - Constitutional Appears: No Acute Distress - Head Exam Head Exam: ATRAUMATIC, NORMOCEPHALIC - Eye Exam Eye Exam: EOMI - ENT Exam ENT Exam: Mucous Membranes Moist. ulcers noted to mouth - Neck Exam Neck Exam: Full ROM Additional comments: HD catheter and triple lumen catheter in place - Respiratory Exam Respiratory Exam: Wheezes. absent: Rales, Rhonchi - Cardiovascular Exam Cardiovascular Exam: REGULAR RHYTHM, +S1, +S2. Chest non-tender to palpation - GI/Abdominal Exam GI & Abdominal Exam: Soft. absent: Guarding, Tenderness, Rebound - Extremities Exam Extremities Exam: Pedal Edema (trace bilaterally). absent: Tenderness - Neurological Exam Neurological Exam: Alert, Awake, Oriented x3 - Psychiatric Exam Psychiatric exam: Normal Affect, Normal Mood - Skin Skin Exam: Warm. absent: Normal Color (ecchymosis to L neck and L forehead) Assessment and Plan - Assessment and Plan (Free Text) Plan: Patient with PMHx of anxiety, possible UTI, on OCP admitted with b/l PE and PNA, septic shock and acute renal failure requiring HD. Bilateral PE -CTA chest showed diffuse bilateral pulmonary emboli involving bilateral central and segmental pulmonary arteries, cardiac silhouette enlarged, there is evidence of pulmonary venous congestion compatible with CHF, left basilar atelectasis vs pulmonary infarct (official report pending) -LE duplex shows left acute thrombosis of the left common femoral vein -echo showed LVEF 50-55%, mild to moderate TR and pulmonary hypertension -s/p respiratory arrest, ACLS performed -Patient on heparin drip NSTEMI -08/07/18 Troponin: 1.3 ->5.0 -EKG: NSR at 95 bpm, ST and T wave abnormality, consider anterolateral ischemia. -CXR 08/07: venous congestion, patchy infiltrate, pleural effusion R>L (see full report) -Patient on heparin drip for PE tx -given Asa 81mg, Plavix 300mg, Metoprolol XL 25mg -Dr. Ba consulted. Will take patient to oil laboratory analyst on 08/10 -Dr. Laurent, critical care consulted. Help appreciated Pneumonia -CXR: patchy infiltrate within RUL and LML (see full report) -Duonebs -Guaifenesin/DM 10ml PO Q4H PRN -Cefepime 1gm IV daily -Flagyl 500 mg PO Q8H -Dr. Slater, [place], consulted. Help appreciated. Acute renal failure -On hemodialysis -Cr improving -Dr. Henson, nephro consulted. Help appreciated. Atrial Fibrillation with RVR -Initial EKG showed afib with rate of 146 bpm -Patient on heparin drip Anxiety - Xanax 0.25mg PO TID PRN GI/DVT ppx: -Protonix 40mg IVP Q12H -Florastor 250 BID <Matthew Najera - Last Filed: 08/08/18 16:20> Objective - Vital Signs/Intake and Output Vital Signs (last 24 hours): Temp Pulse Resp BP Pulse Ox 98.8 F 95 H 18 119/73 100 08/08/18 07:00 08/08/18 07:00 08/08/18 07:00 08/08/18 07:00 08/08/18 07:00 Intake and Output: 08/08/18 08/08/18 06:59 18:59 Intake Total 350 250 Output Total 650 Balance -300 250 - Medications Medications: Current Medications Albuterol/Ipratropium (Duoneb 3 Mg/0.5 Mg (3 Ml) Ud) 3 ml INH RQ6 [facility] Last Admin: 08/08/18 13:25 Dose: 3 ml Alprazolam (Xanax) 0.25 mg PO TID PRN PRN Reason: Anxiety Stop: 08/11/18 09:01 Last Admin: 08/08/18 00:31 Dose: 0.25 mg Aspirin (Aspirin Chewable) 81 mg PO DAILY [facility] Last Admin: 08/08/18 10:59 Dose: 81 mg Clopidogrel Bisulfate (Plavix) 75 mg PO DAILY [facility] Last Admin: 08/08/18 10:58 Dose: 75 mg Famotidine (Pepcid) 20 mg PO DAILY [facility] Last Admin: 08/08/18 10:58 Dose: 20 mg Guaifenesin/Dextromethorphan (Robitussin Dm) 10 ml PO Q4H PRN PRN Reason: Cough and congestion Last Admin: 08/07/18 22:29 Dose: 10 ml Heparin Sodium/Sodium Chloride (Heparin 93441 Units/250ml 1/2 Normal Saline) 25,000 units in 250 mls @ 12.247 mls/hr IV .[id number] PRN; Protocol PRN Reason: ADJUST RATE PER PROTOCOL Last Admin: 08/08/18 14:40 Dose: 12 units/kg/hr, 8.709 mls/hr Cefepime HCl 1 gm/ Sodium (Chloride) 100 mls @ 100 mls/hr IVPB Q24H [facility]; Protocol Last Admin: 08/08/18 00:31 Dose: 100 mls/hr Lidocaine HCl (Lidocaine 2% Viscous) 5 ml PO Q3H PRN PRN Reason: Other Last Admin: 08/07/18 22:31 Dose: 5 ml Metoprolol Succinate (Toprol Xl) 25 mg PO ONCE ONE Stop: 08/08/18 19:06 Metoprolol Succinate (Toprol Xl) 50 mg PO DAILY [facility] Metronidazole (Flagyl) 500 mg PO Q8 [facility]; Protocol Last Admin: 08/08/18 14:34 Dose: 500 mg Nystatin (Nystatin Oral Susp) 5 ml PO QID [facility] Last Admin: 08/08/18 14:30 Dose: 5 ml Oxycodone HCl (Oxycodone Immediate Release Tab) 5 mg PO Q6 PRN PRN Reason: Pain, moderate (4-7) Last Admin: 08/07/18 17:25 Dose: 5 mg Pantoprazole Sodium (Protonix Ec Tab) 40 mg PO DAILY [facility] Last Admin: 08/08/18 10:58 Dose: 40 mg Rosuvastatin Calcium (Crestor) 20 mg PO HS [facility] Last Admin: 08/07/18 22:31 Dose: 20 mg Saccharomyces Boulardii (Florastor) 250 mg PO BID [facility] Last Admin: 08/08/18 10:59 Dose: 250 mg - Labs Labs: 08/08/18 04:00 08/08/18 06:19 PT 17.9 SECONDS (9.7-12.2) H 08/05/18 06:18 INR 1.6 08/05/18 06:18 APTT 60 SECONDS (21-34) H 08/08/18 06:19 Attending/Attestation - Attestation I have personally seen and examined this patient.: Yes I have fully participated in the care of the patient.: Yes I have reviewed all pertinent clinical information, including history, physical exam and plan: Yes Notes (Text): Seen and examined by me . patient was seen during dialysis and in the evening. She was complaining of chest pain during dialysis. No fever,no sob Troponin and EKG done. EKG with T wave inversion lead V toponin was high. Spoke to DR Ba. Plavix 300mg and aspirin 81 mg given started on metoprolol 2mg daily Discussed with the patient's daughter at bedside Spoke to DR Laurent we will monitor closely d/w resident and I agree with the assessment and the plan
[2018-08-07 23:22] LABS: COMPLEMENT C4 13.2 mg/dL (14.0-44.0)
[2018-08-08] MEDS: Cefepime 1 GM in Sodium Chloride 0.9% 100 ML IVPB SCH (00:31)
[2018-08-08] MEDS: Albuterol-Ipratrop 3 mg / 0.5 (3 ml) UD INH SCH ×3 (01:38→13:25)
[2018-08-08 06:41] LABS: BASO % 0.2 % (0.0-2.0); EOS # 0.2 K/uL (0.0-0.7); EOS % 1.4 % (0.0-4.0); LYMPH # 0.8 K/uL (1.0-4.3); LYMPH % 6.7 % (20.0-40.0); MEAN CELL VOLUME 82.4 fL (81.0-99.0); MEAN CORPUSCULAR HEMOGLOBIN 27.5 pg (27.0-31.0); MEAN CORPUSCULAR HGB CONC 33.4 g/dL (33.0-37.0); MEAN PLATELET VOLUME 10.7 fL (7.2-11.7); MONO # 0.9 K/uL (0.0-0.8); MONO % 7.5 % (0.0-10.0); NEUT # 9.6 K/uL (1.8-7.0); NEUT % 84.2 % (50.0-75.0); PLATELET COUNT 124 K/uL (130-400); RBC 3.28 Mil/uL (3.80-5.20); RED CELL DISTRIBUTION WIDTH 16.8 % (11.5-14.5); WHITE BLOOD COUNT 11.5 K/uL (4.8-10.8)
--- NOTE | 2018-08-08 07:37 | CP.PCM.PCO ---
Additional Comments - Additional Comments Additional Comments: Patient evaluated around 10 pm and d/w nursing, no chest pain last night infact form the initial episode. Reviewed ekg, suspected spasm at time she was in HD, DD of CAD, vs DD of vasculitis, NSTEMI while on heparin drip. Patient currently started on antilatelet agents and anticoagulation, vasculitis w/u has been sent, plan to start steroid 1mg/kg, but also considering risk of gi irritation. Plan Vaculitis w/u anit platelet and anticogulation, the former started yesterday, if no gi irritation may start steroid PPI Recommend rheumatology eval D/w cardiology, agree with plan, if patient gets symptomatic will need cath to assess dd of cad, due to nstemi. See orders
[2018-08-08 08:02] LABS: ALB/GLOB RATIO 1.2 (1.0-2.1); ALBUMIN 3.1 g/dL (3.5-5.0); CALCIUM 8.5 mg/dl (8.6-10.4)
[2018-08-08 09:45] LABS: BANDS 2 % (0-2); EOSINOPHIL 1 % (0-4); LYMPHOCYTE 4 % (20-40); MONOCYTE 5 % (0-10); NEUTROPHIL 88 % (50-75); TOTAL CELLS COUNTED 100
[2018-08-08] MEDS ORDERED: Potassium Chloride 20 mEq ER Tab PO ONE ×2 (09:45→11:15)
[2018-08-08 09:46] LABS: HYPOCHROMIC SLIGHT; PLATELET ESTIMATE SLIGHTLY DECREASED (NORMAL); POIKILOCYTOSIS SLIGHT
[2018-08-08 09:47] LABS: ANISOCYTOSIS MODERATE; BURR CELLS SLIGHT; LARGE PLATELETS PRESENT; OVALOCYTES SLIGHT; POLYCHROMIC SLIGHT; SCHISTOCYTES SLIGHT; TOXIC GRANULATION PRESENT
[2018-08-08] MEDS ORDERED: Metoprolol Succinate 25 mg XL Tab PO SCH (10:00)
--- NOTE | 2018-08-08 10:16 | CP.PCM.PN ---
<Berlin Swanson - Last Filed: 08/08/18 18:16> Subjective - Date & Time of Evaluation Date of Evaluation: 08/08/18 Time of Evaluation: 10:16 - Subjective Subjective: PGY-2 Progress Note Patient seen and examined at bedside. Per nursing no acute events occurred overnight. Objective - Vital Signs/Intake and Output Vital Signs (last 24 hours): Temp Pulse Resp BP Pulse Ox 98.8 F 95 H 18 119/73 100 08/08/18 07:00 08/08/18 07:00 08/08/18 07:00 08/08/18 07:00 08/08/18 07:00 Intake and Output: 08/08/18 08/08/18 06:59 18:59 Intake Total 350 Output Total 650 Balance -300 - Medications Medications: Current Medications Albuterol/Ipratropium (Duoneb 3 Mg/0.5 Mg (3 Ml) Ud) 3 ml INH RQ6 [facility]Y Last Admin: 08/08/18 01:38 Dose: 3 ml Alprazolam (Xanax) 0.25 mg PO TID PRN PRN Reason: Anxiety Stop: 08/11/18 09:01 Last Admin: 08/08/18 00:31 Dose: 0.25 mg Aspirin (Aspirin Chewable) 81 mg PO DAILY [facility] Clopidogrel Bisulfate (Plavix) 75 mg PO DAILY [facility] Famotidine (Pepcid) 20 mg PO DAILY [facility] Guaifenesin/Dextromethorphan (Robitussin Dm) 10 ml PO Q4H PRN PRN Reason: Cough and congestion Last Admin: 08/07/18 22:29 Dose: 10 ml Heparin Sodium/Sodium Chloride (Heparin 66104 Units/250ml 1/2 Normal Saline) 25,000 units in 250 mls @ 12.247 mls/hr IV .[id number] PRN; Protocol PRN Reason: ADJUST RATE PER PROTOCOL Last Admin: 08/07/18 10:37 Dose: 12 units/kg/hr, 8.709 mls/hr Cefepime HCl 1 gm/ Sodium (Chloride) 100 mls @ 100 mls/hr IVPB Q24H KACY; Protocol Last Admin: 08/08/18 00:31 Dose: 100 mls/hr Lidocaine HCl (Lidocaine 2% Viscous) 5 ml PO Q3H PRN PRN Reason: Other Last Admin: 08/07/18 22:31 Dose: 5 ml Metoprolol Succinate (Toprol Xl) 25 mg PO DAILY [facility] Metoprolol Succinate (Toprol Xl) 25 mg PO ONCE ONE Stop: 08/08/18 19:06 Metronidazole (Flagyl) 500 mg PO Q8 [facility]; Protocol Last Admin: 08/08/18 05:52 Dose: 500 mg Nystatin (Nystatin Oral Susp) 5 ml PO QID [facility] Last Admin: 08/07/18 22:29 Dose: 5 ml Oxycodone HCl (Oxycodone Immediate Release Tab) 5 mg PO Q6 PRN PRN Reason: Pain, moderate (4-7) Last Admin: 08/07/18 17:25 Dose: 5 mg Pantoprazole Sodium (Protonix Ec Tab) 40 mg PO DAILY [facility] Rosuvastatin Calcium (Crestor) 20 mg PO HS [facility] Last Admin: 08/07/18 22:31 Dose: 20 mg Saccharomyces Boulardii (Florastor) 250 mg PO BID [facility] Last Admin: 08/07/18 18:42 Dose: 250 mg - Labs Labs: 08/08/18 04:00 08/08/18 06:19 PT 17.9 SECONDS (9.7-12.2) H 08/05/18 06:18 INR 1.6 08/05/18 06:18 APTT 60 SECONDS (21-34) H 08/08/18 06:19 - Head Exam Head Exam: NORMAL INSPECTION - Eye Exam Eye Exam: EOMI, Normal appearance, PERRL. absent: Periorbital tenderness Pupil Exam: NORMAL ACCOMODATION - ENT Exam ENT Exam: Mucous Membranes Moist, Normal Oropharynx - Neck Exam Neck Exam: absent: Lymphadenopathy, Thyromegaly - Respiratory Exam Respiratory Exam: Clear to Ausculation Bilateral, NORMAL BREATHING PATTERN. absent: Respiratory Distress - Cardiovascular Exam Cardiovascular Exam: REGULAR RHYTHM, +S1, +S2 - GI/Abdominal Exam GI & Abdominal Exam: Soft, Normal Bowel Sounds. absent: Rigid, Hyperactive Bowel Sounds - Extremities Exam Extremities Exam: Full ROM, Normal Inspection. absent: Joint Swelling, Pedal Edema - Back Exam Back Exam: NORMAL INSPECTION. absent: CVA tenderness (R), paraspinal tenderness - Neurological Exam Neurological Exam: Alert, Awake, CN II-XII Intact, Oriented x3 - Psychiatric Exam Psychiatric exam: Normal Affect, Normal Mood - Skin Skin Exam: Dry, Intact, Normal Color Assessment and Plan - Assessment and Plan (Free Text) Plan: Patient with PMHx of anxiety, possible UTI, on OCP admitted with b/l PE and PNA, septic shock and acute renal failure requiring HD. Bilateral PE -CTA chest showed diffuse bilateral pulmonary emboli involving bilateral central and segmental pulmonary arteries, cardiac silhouette enlarged, there is evidence of pulmonary venous congestion compatible with CHF, left basilar atelectasis vs pulmonary infarct (official report pending) -LE duplex shows left acute thrombosis of the left common femoral vein -echo showed LVEF 50-55%, mild to moderate TR and pulmonary hypertension -s/p respiratory arrest, ACLS performed -Patient on heparin drip NSTEMI -08/07/18 Troponin: 1.3 ->5.0 -EKG: NSR at 95 bpm, ST and T wave abnormality, consider anterolateral ischemia. -CXR 08/07: venous congestion, patchy infiltrate, pleural effusion R>L (see full report) -Patient on heparin drip for PE tx -given Asa 81mg, Plavix 300mg, Metoprolol XL 25mg -Dr. Ba consulted. Will take patient to photofinishing laboratory worker on 08/10 -Repeat troponin 21.1 -Critical care consulted :Patient transferred to ICU for further management. :Troponins continued to climb throughout the day. -Medications: Plavix 75mg PO Daily Aspirin 81mg PO Daily Metoprolol 50mg PO Daily Pneumonia -CXR: patchy infiltrate within RUL and LML (see full report) -Duonebs -Guaifenesin/DM 10ml PO Q4H PRN -Cefepime 1gm IV raul -Dr. Slater, [place], consulted. Help appreciated. Acute renal failure -On hemodialysis -Cr improving -Dr. Henson, nephro consulted. Help appreciated. Atrial Fibrillation with RVR -Initial EKG showed afib with rate of 146 bpm -Patient on heparin drip Anxiety - Xanax 0.25mg PO TID PRN GI/DVT ppx: -Protonix 40mg IVP Q12H -Florastor 250 BID Dispo: Patient transferred to ICU for monitoring. Troponins continued to climb throughout the day. Plan discussed with Dr. Najera. [place] Swanson, PGY-2 <Matthew Najera - Last Filed: 08/08/18 19:03> Objective - Vital Signs/Intake and Output Vital Signs (last 24 hours): Temp Pulse Resp BP Pulse Ox 98.5 F 99 H 27 H 124/76 100 08/08/18 15:00 08/08/18 18:30 08/08/18 18:30 08/08/18 18:00 08/08/18 18:30 Intake and Output: 08/08/18 08/09/18 18:59 06:59 Intake Total 1194.8 Output Total 450 Balance 744.8 - Medications Medications: Current Medications Albuterol/Ipratropium (Duoneb 3 Mg/0.5 Mg (3 Ml) Ud) 3 ml INH RQ6 KACY Last Admin: 08/08/18 13:25 Dose: 3 ml Alprazolam (Xanax) 0.25 mg PO TID PRN PRN Reason: Anxiety Stop: 08/11/18 09:01 Last Admin: 08/08/18 00:31 Dose: 0.25 mg Aspirin (Aspirin Chewable) 81 mg PO DAILY [facility] Last Admin: 08/08/18 10:59 Dose: 81 mg Clopidogrel Bisulfate (Plavix) 75 mg PO DAILY [facility] Last Admin: 08/08/18 10:58 Dose: 75 mg Famotidine (Pepcid) 20 mg PO DAILY [facility] Last Admin: 08/08/18 10:58 Dose: 20 mg Guaifenesin/Dextromethorphan (Robitussin Dm) 10 ml PO Q4H PRN PRN Reason: Cough and congestion Last Admin: 08/07/18 22:29 Dose: 10 ml Heparin Sodium/Sodium Chloride (Heparin 58032 Units/250ml 1/2 Normal Saline) 25,000 units in 250 mls @ 12.247 mls/hr IV .[id number] PRN; Protocol PRN Reason: ADJUST RATE PER PROTOCOL Last Admin: 08/08/18 14:40 Dose: 12 units/kg/hr, 8.709 mls/hr Cefepime HCl 1 gm/ Sodium (Chloride) 100 mls @ 100 mls/hr IVPB Q24H [facility]; Protocol Last Admin: 08/08/18 00:31 Dose: 100 mls/hr Lidocaine HCl (Lidocaine 2% Viscous) 5 ml PO Q3H PRN PRN Reason: Other Last Admin: 08/07/18 22:31 Dose: 5 ml Metoprolol Succinate (Toprol Xl) 25 mg PO ONCE ONE Stop: 08/08/18 19:06 Metoprolol Succinate (Toprol Xl) 50 mg PO DAILY [facility] Last Admin: 08/08/18 15:45 Dose: 50 mg Metronidazole (Flagyl) 500 mg PO Q8 [facility]; Protocol Last Admin: 08/08/18 14:34 Dose: 500 mg Nystatin (Nystatin Oral Susp) 5 ml PO QID [facility] Last Admin: 08/08/18 17:59 Dose: 5 ml Oxycodone HCl (Oxycodone Immediate Release Tab) 5 mg PO Q6 PRN PRN Reason: Pain, moderate (4-7) Last Admin: 08/07/18 17:25 Dose: 5 mg Pantoprazole Sodium (Protonix Ec Tab) 40 mg PO DAILY [facility] Last Admin: 08/08/18 10:58 Dose: 40 mg Rosuvastatin Calcium (Crestor) 20 mg PO HS [facility] Last Admin: 08/07/18 22:31 Dose: 20 mg Saccharomyces Boulardii (Florastor) 250 mg PO BID [facility] Last Admin: 08/08/18 17:59 Dose: 250 mg - Labs Labs: 08/08/18 04:00 08/08/18 06:19 PT 17.9 SECONDS (9.7-12.2) H 08/05/18 06:18 INR 1.6 08/05/18 06:18 APTT 60 SECONDS (21-34) H 08/08/18 06:19 Attending/Attestation - Attestation I have personally seen and examined this patient.: Yes I have fully participated in the care of the patient.: Yes I have reviewed all pertinent clinical information, including history, physical exam and plan: Yes Notes (Text): Patient was seen this morning denies chest pain,NO SOB,MILD TACHYCARDIA has elevated troponin DISCUSSED WITH DR BA WE WILL MONITOR IN ICU CONTINUE ASPRIN,PLAVIX AND HEPARIN DRIP MONITOR IN ICU D/W FRANCHISE BROKER DR GANT WE WILL FOLLOW WORK UP FOR POSSIBLE VASCULITIS D/W DR HENSON DISCUSSED WITH THE RESIDENT SPOKE TO THE PATIENT AND HER FAMILY AT BEDSIDE
[2018-08-08] MEDS: Pantoprazole 40 mg EC Tab PO SCH (10:58)
[2018-08-08] MEDS: Saccharomyces Boulardi 250 mg Cap PO SCH ×2 (10:59→17:59)
[2018-08-08] MEDS: Nystatin 100,000 Units/ml Oral Susp 5 ml UD PO SCH ×4 (10:59→22:00)
[2018-08-08] MEDS: Heparin25000 units/250ml 1/2NS 25,000 UNITS/250 ML BAG IV PRN (14:40)
[2018-08-08] MEDS: Metoprolol Succinate 50 mg XL Tab PO SCH (15:45)
[2018-08-08 18:25] LABS: SQUAMOUS EPITHIAL 11 /hpf (0-5); URINE BACTERIA MANY (<OCC); URINE BILIRUBIN NEGATIVE (NEGATIVE); URINE BLOOD 3+ (NEGATIVE); URINE CLARITY Hazy (Clear); URINE COLOR Yellow (YELLOW); URINE GLUCOSE (UA) NORMAL (Normal); URINE LEUKOCYTE ESTERASE 1+ Leu/uL (Negative); URINE PROTEIN 2+ mg/dL (NEGATIVE); URINE UROBILINOGEN NORMAL mg/dL (0.2-1.0)
--- NOTE | 2018-08-08 18:38 | CP.PCM.CON ---
<Nikita Patrick - Last Filed: 08/08/18 22:02> History of Present Illness - History of Present Illness History of Present Illness: ICU Consult Note Nikita Patrick, PGY-3 IM This is a 48 yo F with PMH of anxiety, bariatric surgery, and recent hx spetic shock, bilateral PE, resp failure requiring intubation (extubated 08/01/18), and cardiac arrest who returns to the ICU due to reported chest pain and increasing trops despite heparin drip. Patient transferred out of ICU on 08/04/18. At that time, her respiratory status had improved s/p dialysis, she was on heparin drip pending bridging to oral anticoagulation, and WBCs were improving. Overnight, patient had reported episode of chest pain, with elevated trops up to 11.3. At that time, vasculitis workup was initiated, as patient was already on anticoagulation and antiplatelet agents. Patient again had episode of chest pain, and trops elevated again to 22.1, so ICU was consulted to monitor patient due to concern for worsening trop/NSTEMI despite already on therapeutic anticoagulation, pending cath 08/10/18 as per Cardio. At time of exam, patient not complaining of chest pain, resting comfortably. Denies hemoptysis, hematemesis, focal weakness, syncope/near-syncope. No poppy dyspnea/tachypnea appreciated, satting well on NC. All other ROS in 12-system review negative. PMH: anxiety PSH: bariatric surgery, C/S x2 Social: Denies alcohol, tobacco, drug use Fam Hx: unknown Review of Systems - Review of Systems All systems: reviewed and no additional remarkable complaints except (as per subjective) Past Patient History - Infectious Disease Hx of Infectious Diseases: None - Past Medical History & Family History Past Medical History?: Yes - Past Social History Smoking Status: Never Smoked - CARDIAC Hx Cardiac Disorders: (unable to obtain) - PULMONARY Hx Respiratory Disorders: (unable to obtain) - NEUROLOGICAL Hx Neurological Disorder: (unable to obtain) - HEENT Hx HEENT Problems: (unable to obtain) - RENAL Hx Chronic Kidney Disease: (unable to obtain) - ENDOCRINE/METABOLIC Hx Endocrine Disorders: (unable to obtain) - HEMATOLOGICAL/ONCOLOGICAL Hx Blood Disorders: (unable to obtain) - INTEGUMENTARY Hx Dermatological Problems: (unable to obtain) - MUSCULOSKELETAL/RHEUMATOLOGICAL Hx Musculoskeletal Disorders: (unable to obtain) - GASTROINTESTINAL Hx Gastrointestinal Disorders: (unable to obtain) - GENITOURINARY/GYNECOLOGICAL Hx Genitourinary Disorders: (unable to obtain) - PSYCHIATRIC Hx Anxiety: Yes Hx Substance Use: No - SURGICAL HISTORY Hx Surgeries: Yes (As per Family Member) Hx Section: Yes (x2) Other/Comment: Bariatric Sx - ANESTHESIA Hx Anesthesia: Yes Hx Anesthesia Reactions: No Hx Malignant Hyperthermia: No Meds Allergies/Adverse Reactions: Allergies Allergy/AdvReac Type Severity Reaction Status Date / Time No Known Allergies Allergy Unverified 07/27/18 02:28 - Medications Medications: Current Medications Albuterol/Ipratropium (Duoneb 3 Mg/0.5 Mg (3 Ml) Ud) 3 ml INH RQ6 [facility] Last Admin: 08/08/18 13:25 Dose: 3 ml Alprazolam (Xanax) 0.25 mg PO TID PRN PRN Reason: Anxiety Stop: 08/11/18 09:01 Last Admin: 08/08/18 00:31 Dose: 0.25 mg Aspirin (Aspirin Chewable) 81 mg PO DAILY [facility] Last Admin: 08/08/18 10:59 Dose: 81 mg Clopidogrel Bisulfate (Plavix) 75 mg PO DAILY [facility] Last Admin: 08/08/18 10:58 Dose: 75 mg Famotidine (Pepcid) 20 mg PO DAILY [facility] Last Admin: 08/08/18 10:58 Dose: 20 mg Guaifenesin/Dextromethorphan (Robitussin Dm) 10 ml PO Q4H PRN PRN Reason: Cough and congestion Last Admin: 08/07/18 22:29 Dose: 10 ml Heparin Sodium/Sodium Chloride (Heparin 08304 Units/250ml 1/2 Normal Saline) 25,000 units in 250 mls @ 12.247 mls/hr IV .[id number] PRN; Protocol PRN Reason: ADJUST RATE PER PROTOCOL Last Admin: 08/08/18 14:40 Dose: 12 units/kg/hr, 8.709 mls/hr Cefepime HCl 1 gm/ Sodium (Chloride) 100 mls @ 100 mls/hr IVPB Q24H [facility]; Protocol Last Admin: 08/08/18 00:31 Dose: 100 mls/hr Lidocaine HCl (Lidocaine 2% Viscous) 5 ml PO Q3H PRN PRN Reason: Other Last Admin: 08/07/18 22:31 Dose: 5 ml Metoprolol Succinate (Toprol Xl) 25 mg PO ONCE ONE Stop: 08/08/18 19:06 Metoprolol Succinate (Toprol Xl) 50 mg PO DAILY [facility] Last Admin: 08/08/18 15:45 Dose: 50 mg Metronidazole (Flagyl) 500 mg PO Q8 [facility]; Protocol Last Admin: 08/08/18 14:34 Dose: 500 mg Nystatin (Nystatin Oral Susp) 5 ml PO QID [facility] Last Admin: 08/08/18 17:59 Dose: 5 ml Oxycodone HCl (Oxycodone Immediate Release Tab) 5 mg PO Q6 PRN PRN Reason: Pain, moderate (4-7) Last Admin: 08/07/18 17:25 Dose: 5 mg Pantoprazole Sodium (Protonix Ec Tab) 40 mg PO DAILY [facility] Last Admin: 08/08/18 10:58 Dose: 40 mg Rosuvastatin Calcium (Crestor) 20 mg PO HS [facility] Last Admin: 08/07/18 22:31 Dose: 20 mg Saccharomyces Boulardii (Florastor) 250 mg PO BID [facility] Last Admin: 08/08/18 17:59 Dose: 250 mg Physical Exam - Constitutional Appears: Non-toxic, No Acute Distress - Head Exam Head Exam: ATRAUMATIC, NORMAL INSPECTION, NORMOCEPHALIC - Eye Exam Eye Exam: EOMI, Normal appearance. absent: Conjunctival injection, Scleral icterus Pupil Exam: absent: Fixed, Irregular - ENT Exam ENT Exam: Mucous Membranes Moist - Neck Exam Neck exam: Positive for: Full Rom, Normal Inspection - Respiratory Exam Respiratory Exam: Clear to Auscultation Bilateral, NORMAL BREATHING PATTERN. absent: Accessory Muscle Use, Chest Wall Tenderness, Decreased Breath Sounds, Rales, Rhonchi, Wheezes, Respiratory Distress - Cardiovascular Exam Cardiovascular Exam: REGULAR RHYTHM (regular rhythm, persistently in 90's on bedside monitor throughout exam), RRR, +S1, +S2. absent: Bradycardia, Tachyc ardia, Irregular Rhythm, JVD, +S4 - GI/Abdominal Exam GI & Abdominal Exam: Normal Bowel Sounds, Soft. absent: Diminished Bowel Sounds, Distended, Firm, Hyperactive Bowel Sounds, Hypoactive Bowel Sounds, Rigid, Tenderness - Extremities Exam Extremities exam: Positive for: normal capillary refill, normal inspection, pedal pulses present. Negative for: calf tenderness Additional comments: DVT of L common femoral vein on duplex, but no appreciable thigh tenderness - Neurological Exam Additional comments: awake and alert, following commands appropriately, moving all extremities spontaneously - Psychiatric Exam Psychiatric exam: Normal Affect, Normal Mood - Skin Skin Exam: Dry, Intact, Normal Color, Warm Results - Vital Signs Recent Vital Signs: Last Vital Signs Temp 98.5 F 08/08/18 16:00 Pulse 99 H 08/08/18 18:30 Resp 27 H 08/08/18 18:30 BP 124/76 08/08/18 18:00 Pulse Ox 100 08/08/18 18:30 - Labs Result Diagrams: 08/08/18 04:00 08/08/18 06:19 Labs: Laboratory Results - last 24 hr 08/07/18 08/07/18 08/07/18 21:29 22:58 22:58 WBC RBC Hgb Hct MCV MCH MCHC RDW Plt Count MPV Neut % (Auto) Lymph % (Auto) [place] % (Auto) Eos % (Auto) Baso % (Auto) Neut # (Auto) Lymph # (Auto) [place] # (Auto) Eos # (Auto) Baso # (Auto) Neutrophils % (Manual) Band Neutrophils % Lymphocytes % (Manual) Monocytes % (Manual) Eosinophils % (Manual) Toxic Granulation Platelet Estimate Large Platelets Polychromasia Hypochromasia (manual) Poikilocytosis (manual Anisocytosis (manual) Ovalocytes Kya Cells Schistocytes ESR 25 H APTT Sodium Potassium Chloride Carbon Dioxide Anion Gap BUN Creatinine Est GFR ( Amer) Est GFR (Non-Af Amer) Random Glucose Calcium Total Bilirubin AST ALT Alkaline Phosphatase Troponin I C-React Prot High Sens > 15.00 H Total Protein Albumin Globulin Albumin/Globulin Ratio Triglycerides Cholesterol LDL Cholesterol Direct HDL Cholesterol Urine Color Urine Clarity Urine pH Ur Specific [place] Urine Protein Urine Glucose (UA) Urine Ketones Urine Blood Urine Nitrate Urine Bilirubin Urine Urobilinogen Ur Leukocyte Esterase Urine WBC (Auto) Urine RBC (Auto) Ur Squamous Epith Cells Urine Bacteria Complement C3 41.0 L Complement C4 13.2 L C. difficile Ag & Toxin Negative 08/07/18 08/08/18 08/08/18 22:58 04:00 06:19 WBC 11.5 H RBC 3.28 L Hgb 9.0 L Hct 27.0 L MCV 82.4 MCH 27.5 MCHC 33.4 RDW 16.8 H Plt Count 124 L MPV 10.7 Neut % (Auto) 84.2 H Lymph % (Auto) 6.7 L [place] % (Auto) 7.5 Eos % (Auto) 1.4 Baso % (Auto) 0.2 Neut # (Auto) 9.6 H Lymph # (Auto) 0.8 L [place] # (Auto) 0.9 H Eos # (Auto) 0.2 Baso # (Auto) 0.0 Neutrophils % (Manual) 88 H Band Neutrophils % 2 Lymphocytes % (Manual) 4 L Monocytes % (Manual) 5 Eosinophils % (Manual) 1 Toxic Granulation Present Platelet Estimate Slightly decreased L Large Platelets Present Polychromasia Slight Hypochromasia (manual) Slight Poikilocytosis (manual Slight Anisocytosis (manual) Moderate Ovalocytes Slight Kya Cells Slight Schistocytes Slight ESR APTT Sodium 141 Potassium 3.3 L Chloride 107 Carbon Dioxide 23 Anion Gap 14 BUN 24 H Creatinine 2.9 H Est GFR ( Amer) 21 Est GFR (Non-Af Amer) 17 Random Glucose 146 H Calcium 8.5 L Total Bilirubin 0.8 AST 120 H D ALT 61 H Alkaline Phosphatase 80 Troponin I 11.3000 H* C-React Prot High Sens Total Protein 5.8 L Albumin 3.1 L Globulin 2.7 Albumin/Globulin Ratio 1.2 Triglycerides 100 Cholesterol 101 LDL Cholesterol Direct 46 HDL Cholesterol 40 Urine Color Urine Clarity Urine pH Ur Specific [place] Urine Protein Urine Glucose (UA) Urine Ketones Urine Blood Urine Nitrate Urine Bilirubin Urine Urobilinogen Ur Leukocyte Esterase Urine WBC (Auto) Urine RBC (Auto) Ur Squamous Epith Cells Urine Bacteria Complement C3 Complement C4 C. difficile Ag & Toxin 08/08/18 08/08/18 08/08/18 06:19 11:36 18:14 WBC RBC Hgb Hct MCV MCH MCHC RDW Plt Count MPV Neut % (Auto) Lymph % (Auto) [place] % (Auto) Eos % (Auto) Baso % (Auto) Neut # (Auto) Lymph # (Auto) [place] # (Auto) Eos # (Auto) Baso # (Auto) Neutrophils % (Manual) Band Neutrophils % Lymphocytes % (Manual) Monocytes % (Manual) Eosinophils % (Manual) Toxic Granulation Platelet Estimate Large Platelets Polychromasia Hypochromasia (manual) Poikilocytosis (manual Anisocytosis (manual) Ovalocytes [place] Cells Schistocytes ESR APTT 60 H Sodium Potassium Chloride Carbon Dioxide Anion Gap BUN Creatinine Est GFR ( Amer) Est GFR (Non-Af Amer) Random Glucose Calcium Total Bilirubin AST ALT Alkaline Phosphatase Troponin I 22.1000 H* C-React Prot High Sens Total Protein Albumin Globulin Albumin/Globulin Ratio Triglycerides Cholesterol LDL Cholesterol Direct HDL Cholesterol Urine Color Yellow Urine Clarity Hazy Urine pH 6.0 Ur Specific [place] 1.008 Urine Protein 2+ H Urine Glucose (UA) Normal Urine Ketones Negative Urine Blood 3+ H Urine Nitrate Negative Urine Bilirubin Negative Urine Urobilinogen Normal Ur Leukocyte Esterase 1+ H Urine WBC (Auto) 100 H Urine RBC (Auto) 24 H Ur Squamous Epith Cells 11 H Urine Bacteria Many H Complement C3 Complement C4 C. difficile Ag & Toxin Assessment & Plan - Assessment and Plan (Free Text) Assessment: This is a 48 yo F with PMH of anxiety, bariatric surgery, and recent hx spetic shock, bilateral PE, resp failure requiring intubation (extubated 08/01/18), and cardiac arrest who returns to the ICU due to reported chest pain and increasing trops despite heparin drip. Pending vasculitis and Lupus anticoagulant workup, pending Cardiac Cath 08/10/18. Plan: Neuro: - Awake and alert, following commands - maintain normothermia Pulm: - satting well on nasal canula - continue duonebs 3 ml INH RQ6 - chest PT, incentive spirometry - CXR from 08/07/18 concerning for bilateral patching infiltrates and bilateral pleural effusions Cefepime covers for possible PNA HD yesterday will help with fluid overload 2/2 renal failure repeat CXR tomorrow CV: - worsening trops despite heparin drip and dual antiplatelets, Trop increased from 11 to 22 today with episodes of chest pain - pending cardiac cath 08/10 as per Cardio - Cardio following, appreciate all recs - continue Metoprolol 50mg daily - Continue statin GI: - Transaminitis increased mildly today, continue to monitor, no acute intervention indicated at this time - Pepcid for GI ppx - Mechanically altered diet with honey thick liquids Renal: - BRIAN/ARF improved, Cr 2.9 today (was 4.2) - underwent HD yesterday - Nephro following, appreciate all recs; avoid oral AC in case of need for HD tunnel cath placement Endo: - maintain euglycemia with blood sugars 140-180 Heme: - heparin drip low dose for cardiac - No need for IVC filter, patient's bleeding risk has decreased - worsening trops despite therapeutic anticoagulation, so vasculitis workup and lupus anticoagulant ordered, pending - Heme/onc consulted. Appreciate recs. - Rheum consulted, appreciate all recs ID: - Flagyl 500 mg Q8H, Cefepime 1 gm Q12H for enterocolitis - WBCs improved to 11.5 today, afebrile, off steroids - 07/29 sputum culture positive for yeast, otherwise all cultures negative Dispo: readmitted to ICU for monitoring pending cardiac cath, due to chest pain and worsening trops while on AC FEN: mechanically altered diet with honey thickened liquids Access: Peripheral IVs, dialysis cath Consults: Cardio, Neuro, Nephro, Rheum, Heme-onc, ID Ppx: Protonix for GI, Heparin drip covers for DVT (SCDs contraindicated d/t DVT) Code Status: unknown, so defaults to FULL Patient seen, reviewed, and discussed with attending, Dr. Cornell Kellogg <Marta Kellogg - Last Filed: 08/13/18 19:41> Meds - Medications Medications: Current Medications Acetaminophen (Tylenol 325mg Tab) 650 mg PO Q6 PRN PRN Reason: Fever >100.4 F Last Admin: 08/12/18 23:54 Dose: 650 mg Albuterol/Ipratropium (Duoneb 3 Mg/0.5 Mg (3 Ml) Ud) 3 ml INH RQ6 [facility] Last Admin: 08/13/18 19:36 Dose: 3 ml Alprazolam (Xanax) 0.25 mg PO TID PRN PRN Reason: Anxiety Stop: 08/18/18 15:46 Last Admin: 08/12/18 23:37 Dose: 0.25 mg Aspirin (Aspirin Chewable) 81 mg PO DAILY [facility] Last Admin: 08/13/18 09:37 Dose: 81 mg Benzocaine/Menthol (Cepacol Sore Throat) 1 naheed MT Q4 PRN PRN Reason: Sore Throat Clopidogrel Bisulfate (Plavix) 75 mg PO DAILY [facility] Last Admin: 08/13/18 09:37 Dose: 75 mg Famotidine (Pepcid) 20 mg PO DAILY [facility] Last Admin: 08/13/18 09:37 Dose: 20 mg Guaifenesin (Robitussin) 100 mg PO Q4H PRN PRN Reason: Cough Last Admin: 08/12/18 22:15 Dose: 100 mg Cefepime HCl 1 gm/ Sodium (Chloride) 100 mls @ 100 mls/hr IVPB Q24H [facility]; Protocol Last Admin: 08/13/18 00:02 Dose: 100 mls/hr Lidocaine HCl (Lidocaine 2% Viscous) 5 ml PO Q3H PRN PRN Reason: Other Last Admin: 08/07/18 22:31 Dose: 5 ml Metoprolol Succinate (Toprol Xl) 50 mg PO DAILY [facility] Last Admin: 08/13/18 09:37 Dose: 50 mg Nitroglycerin (Nitro-Bid 2% Oint) 1 ea TOP Q6H [facility] Last Admin: 08/13/18 18:22 Dose: 1 ea Nystatin (Nystatin Oral Susp) 5 ml PO QID [facility] Last Admin: 08/13/18 17:20 Dose: 5 ml Oxycodone HCl (Oxycodone Immediate Release Tab) 5 mg PO Q6 PRN PRN Reason: Pain, moderate (4-7) Last Admin: 08/13/18 07:44 Dose: 5 mg Rosuvastatin Calcium (Crestor) 10 mg PO HS [facility] Last Admin: 08/12/18 22:14 Dose: 10 mg Saccharomyces Boulardii (Florastor) 250 mg PO BID [facility] Last Admin: 08/13/18 17:20 Dose: 250 mg Sodium Chloride ([place] Baby Saline 30 Ml) 0 ml MICHAEL TID [facility] Last Admin: 08/13/18 19:04 Dose: Not Given Results - Vital Signs Recent Vital Signs: Last Vital Signs Temp 98.6 F 08/13/18 08:00 Pulse 113 H 08/13/18 17:00 Resp 33 H 08/13/18 17:00 BP 128/84 08/13/18 16:57 Pulse Ox 98 08/13/18 17:00 - Labs Result Diagrams: 08/13/18 06:22 08/13/18 06:22 Labs: Laboratory Results - last 24 hr 08/10/18 08/13/18 08/13/18 08:30 06:22 06:22 WBC 7.4 RBC 2.99 L Hgb 8.2 L Hct 24.6 L MCV 82.1 MCH 27.3 MCHC 33.3 RDW 17.9 H Plt Count 163 MPV 10.3 Neut % (Auto) 71.9 Lymph % (Auto) 13.3 L [place] % (Auto) 11.2 H Eos % (Auto) 0.8 Baso % (Auto) 2.8 H Neut # (Auto) 5.3 Lymph # (Auto) 1.0 [place] # (Auto) 0.8 Eos # (Auto) 0.1 Baso # (Auto) 0.2 PT INR APTT Sodium 140 Potassium 3.8 Chloride 107 Carbon Dioxide 21 L Anion Gap 15 BUN 38 H Creatinine 4.0 H Est GFR ( Amer) 15 Est GFR (Non-Af Amer) 12 Random Glucose 93 Calcium 8.6 Phosphorus Total Bilirubin 0.8 AST 29 ALT 31 Alkaline Phosphatase 68 Total Protein 6.3 Albumin 3.0 L Globulin 3.2 Albumin/Globulin Ratio 0.9 L Urine Color Urine Clarity Urine pH Ur Specific [place] Urine Protein Urine Glucose (UA) Urine Ketones Urine Blood Urine Nitrate Urine Bilirubin Urine Urobilinogen Ur Leukocyte Esterase Urine WBC (Auto) Urine RBC (Auto) Ur Squamous Epith Cells Urine Bacteria Scl-70 Scleroderma Ab <1.0 08/13/18 08/13/18 08/13/18 06:22 06:23 14:52 WBC RBC Hgb Hct MCV MCH MCHC RDW Plt Count MPV Neut % (Auto) Lymph % (Auto) [place] % (Auto) Eos % (Auto) Baso % (Auto) Neut # (Auto) Lymph # (Auto) [place] # (Auto) Eos # (Auto) Baso # (Auto) PT 30.2 H D INR 2.8 D APTT 32 Sodium Potassium Chloride Carbon Dioxide Anion Gap BUN Creatinine Est GFR ( Amer) Est GFR (Non-Af Amer) Random Glucose Calcium Phosphorus 3.7 Total Bilirubin AST ALT Alkaline Phosphatase Total Protein Albumin Globulin Albumin/Globulin Ratio Urine Color Yellow Urine Clarity Hazy Urine pH 6.0 Ur Specific [place] 1.014 Urine Protein 2+ H Urine Glucose (UA) Normal Urine Ketones Negative Urine Blood 2+ H Urine Nitrate Negative Urine Bilirubin Negative Urine Urobilinogen Normal Ur Leukocyte Esterase 3+ H Urine WBC (Auto) 17 H Urine RBC (Auto) 13 H Ur Squamous Epith Cells 6 H Urine Bacteria Occ H Scl-70 Scleroderma Ab Assessment & Plan - Assessment and Plan (Free Text) Plan: Above patient seen and examined. Above resident documents my clinical management and findings - Date & Time Date: 08/08/18 Time: 23:00
[2018-08-08] MEDS ORDERED: Metoprolol Succinate 25 mg XL Tab PO ONE (19:05)
[2018-08-08] MEDS: guaiFENesin DM 200 mg-20 mg/10 ml UD PO PRN (22:58)
--- NOTE | 2018-08-08 23:14 | CP.PCM.PN ---
Subjective - Date & Time of Evaluation Date of Evaluation: 08/08/18 Time of Evaluation: 14:30 - Subjective Subjective: Patient not complaining of chest pain today; melancholic; Objective - Vital Signs/Intake and Output Vital Signs (last 24 hours): Temp Pulse Resp BP Pulse Ox 98.5 F 97 H 32 H 136/87 100 08/08/18 15:00 08/08/18 21:14 08/08/18 21:14 08/08/18 21:14 08/08/18 21:14 Intake and Output: 08/08/18 08/09/18 18:59 06:59 Intake Total 1194.8 126.1 Output Total 450 90 Balance 744.8 36.1 - Medications Medications: Current Medications Albuterol/Ipratropium (Duoneb 3 Mg/0.5 Mg (3 Ml) Ud) 3 ml INH RQ6 [facility] Last Admin: 08/08/18 13:25 Dose: 3 ml Alprazolam (Xanax) 0.25 mg PO TID PRN PRN Reason: Anxiety Stop: 08/11/18 09:01 Last Admin: 08/08/18 22:58 Dose: 0.25 mg Aspirin (Aspirin Chewable) 81 mg PO DAILY [facility] Last Admin: 08/08/18 10:59 Dose: 81 mg Clopidogrel Bisulfate (Plavix) 75 mg PO DAILY [facility] Last Admin: 08/08/18 10:58 Dose: 75 mg Famotidine (Pepcid) 20 mg PO DAILY [facility] Last Admin: 08/08/18 10:58 Dose: 20 mg Guaifenesin/Dextromethorphan (Robitussin Dm) 10 ml PO Q4H PRN PRN Reason: Cough and congestion Last Admin: 08/08/18 22:58 Dose: 10 ml Heparin Sodium/Sodium Chloride (Heparin 00134 Units/250ml 1/2 Normal Saline) 25,000 units in 250 mls @ 12.247 mls/hr IV .[id number] PRN; Protocol PRN Reason: ADJUST RATE PER PROTOCOL Last Admin: 08/08/18 14:40 Dose: 12 units/kg/hr, 8.709 mls/hr Cefepime HCl 1 gm/ Sodium (Chloride) 100 mls @ 100 mls/hr IVPB Q24H [facility]; Protocol Last Admin: 08/08/18 00:31 Dose: 100 mls/hr Lidocaine HCl (Lidocaine 2% Viscous) 5 ml PO Q3H PRN PRN Reason: Other Last Admin: 08/07/18 22:31 Dose: 5 ml Metoprolol Succinate (Toprol Xl) 50 mg PO DAILY [facility] Last Admin: 08/08/18 15:45 Dose: 50 mg Metronidazole (Flagyl) 500 mg PO Q8 [facility]; Protocol Last Admin: 08/08/18 21:46 Dose: 500 mg Nystatin (Nystatin Oral Susp) 5 ml PO QID [facility] Last Admin: 08/08/18 17:59 Dose: 5 ml Oxycodone HCl (Oxycodone Immediate Release Tab) 5 mg PO Q6 PRN PRN Reason: Pain, moderate (4-7) Last Admin: 08/07/18 17:25 Dose: 5 mg Pantoprazole Sodium (Protonix Ec Tab) 40 mg PO DAILY [facility] Last Admin: 08/08/18 10:58 Dose: 40 mg Rosuvastatin Calcium (Crestor) 20 mg PO HS [facility] Last Admin: 08/08/18 21:46 Dose: 20 mg Saccharomyces Boulardii (Florastor) 250 mg PO BID [facility] Last Admin: 08/08/18 17:59 Dose: 250 mg - Labs Labs: 08/08/18 04:00 08/08/18 06:19 PT 17.9 SECONDS (9.7-12.2) H 08/05/18 06:18 INR 1.6 08/05/18 06:18 APTT 60 SECONDS (21-34) H 08/08/18 06:19 - Constitutional Appears: Non-toxic, No Acute Distress - Eye Exam Eye Exam: Normal appearance - Respiratory Exam Respiratory Exam: Rhonchi. absent: Respiratory Distress - Cardiovascular Exam Cardiovascular Exam: RRR, +S1, +S2 - GI/Abdominal Exam GI & Abdominal Exam: Soft. absent: Distended, Tenderness - Extremities Exam Additional comments: no significant leg edema; - Neurological Exam Neurological Exam: Alert, Awake - Psychiatric Exam Psychiatric exam: Normal Mood. absent: Agitated - Skin Skin Exam: Warm. absent: Cyanosis Assessment and Plan (1) Acute renal failure Assessment & Plan: ATN, non-oliguric renal failure; relatively stable volume and electrolyte status; last HD yesterday; holding HD over the weekend and re-assessing; if cardiac cath needed in the setting of new NSTEMI, can be done anytime (no need to coordinate with HD unless clinically HD need becomes urgent); agree with vasculitis workup as patient is relatively young and previously with no risk factors for obstructive CAD; -f/u vasculitis workup; adding labs to screen for APL syndrome; -f/u urine protein/creat; -avoid nephrotoxic agents as much as possible; -strict I/O; -maintain MAP > 65; Status: Acute (2) Acute respiratory failure with hypoxemia Assessment & Plan: Still tachypneic but overall much improved; will aim for euvolemia with UF on HD; Status: Acute (3) Hypocalcemia Status: Resolved (4) Metabolic acidosis Status: Resolved (5) NSTEMI (non-ST elevated myocardial infarction) Assessment & Plan: see above; Status: Acute
[2018-08-09] MEDS: Cefepime 1 GM in Sodium Chloride 0.9% 100 ML IVPB SCH (00:44)
[2018-08-09] MEDS: Albuterol-Ipratrop 3 mg / 0.5 (3 ml) UD INH SCH ×4 (02:42→19:40)
[2018-08-09 06:19] LABS: BASO # 0.1 K/uL (0.0-0.2); BASO % 0.6 % (0.0-2.0); EOS # 0.1 K/uL (0.0-0.7); EOS % 0.8 % (0.0-4.0); HEMOGLOBIN 8.5 g/dL (11.0-16.0); LYMPH # 1.1 K/uL (1.0-4.3); LYMPH % 9.5 % (20.0-40.0); MEAN CELL VOLUME 83.4 fL (81.0-99.0); MEAN CORPUSCULAR HEMOGLOBIN 27.5 pg (27.0-31.0); MEAN PLATELET VOLUME 10.8 fL (7.2-11.7); NEUT % 80.1 % (50.0-75.0); PLATELET COUNT 132 K/uL (130-400); RED CELL DISTRIBUTION WIDTH 17.7 % (11.5-14.5); WHITE BLOOD COUNT 11.3 K/uL (4.8-10.8)
[2018-08-09 06:44] LABS: ALB/GLOB RATIO 1.2 (1.0-2.1); ALBUMIN 3.3 g/dL (3.5-5.0); CALCIUM 8.7 mg/dl (8.6-10.4)
[2018-08-09 09:20] LABS: TROPONIN I 31.5 ng/mL (0.00-0.120)
--- NOTE | 2018-08-09 10:28 | CP.PCM.PN ---
Subjective - Date & Time of Evaluation Date of Evaluation: 08/09/18 Time of Evaluation: 10:09 - Subjective Subjective: Seen and examined by me this morning Translation service used [id number] Patient was sitting on the chair,complaining of feeling weak and not able to sleep last night,denies chest pain. Her breathing is better.has cough with little blood stained sputum. has oral aphthous ulcers in her mouth and inflamed throat. no fever,no more loose stool Getting dialysis via right perma cath this morning. Heparin drip via left TLC, intact with dressing dry Had a long conversation with the patient and her daughter about her blood clot ,renal failure ,dialysis and troponin elevation . All questions answered. patient and her daughter apprecitae the care provided to her. They are willing to pay for her medication including Eliquis if needed. Objective - Vital Signs/Intake and Output Vital Signs (last 24 hours): Temp Pulse Resp BP Pulse Ox 98.5 F 90 24 129/78 100 08/09/18 04:00 08/09/18 06:00 08/09/18 06:00 08/09/18 04:28 08/09/18 06:00 Intake and Output: 08/09/18 08/09/18 06:59 18:59 Intake Total 234.4 Output Total 390 Balance -155.6 - Medications Medications: Current Medications Albuterol/Ipratropium (Duoneb 3 Mg/0.5 Mg (3 Ml) Ud) 3 ml INH RQ6 [facility] Last Admin: 08/09/18 08:19 Dose: 3 ml Alprazolam (Xanax) 0.25 mg PO TID PRN PRN Reason: Anxiety Stop: 08/11/18 09:01 Last Admin: 08/08/18 22:58 Dose: 0.25 mg Aspirin (Aspirin Chewable) 81 mg PO DAILY [facility] Last Admin: 08/08/18 10:59 Dose: 81 mg Clopidogrel Bisulfate (Plavix) 75 mg PO DAILY [facility] Last Admin: 08/08/18 10:58 Dose: 75 mg Famotidine (Pepcid) 20 mg PO DAILY [facility] Last Admin: 08/08/18 10:58 Dose: 20 mg Heparin Sodium/Sodium Chloride (Heparin 34142 Units/250ml 1/2 Normal Saline) 25,000 units in 250 mls @ 12.247 mls/hr IV .[id number] PRN; Protocol PRN Reason: ADJUST RATE PER PROTOCOL Last Admin: 08/08/18 14:40 Dose: 12 units/kg/hr, 8.709 mls/hr Cefepime HCl 1 gm/ Sodium (Chloride) 100 mls @ 100 mls/hr IVPB Q24H [facility]; Protocol Last Admin: 08/09/18 00:44 Dose: 100 mls/hr Lidocaine HCl (Lidocaine 2% Viscous) 5 ml PO Q3H PRN PRN Reason: Other Last Admin: 08/07/18 22:31 Dose: 5 ml Metoprolol Succinate (Toprol Xl) 50 mg PO DAILY [facility] Last Admin: 08/08/18 15:45 Dose: 50 mg Metronidazole (Flagyl) 500 mg PO Q8 [facility]; Protocol Last Admin: 08/09/18 05:20 Dose: 500 mg Nystatin (Nystatin Oral Susp) 5 ml PO QID [facility] Last Admin: 08/08/18 22:00 Dose: Not Given Oxycodone HCl (Oxycodone Immediate Release Tab) 5 mg PO Q6 PRN PRN Reason: Pain, moderate (4-7) Last Admin: 08/07/18 17:25 Dose: 5 mg Pantoprazole Sodium (Protonix Ec Tab) 40 mg PO DAILY [facility] Last Admin: 08/08/18 10:58 Dose: 40 mg Rosuvastatin Calcium (Crestor) 20 mg PO HS [facility] Last Admin: 08/08/18 21:46 Dose: 20 mg Saccharomyces Boulardii (Florastor) 250 mg PO BID [facility] Last Admin: 08/08/18 17:59 Dose: 250 mg - Labs Labs: 08/09/18 06:10 08/09/18 06:10 PT 17.9 SECONDS (9.7-12.2) H 08/05/18 06:18 INR 1.6 08/05/18 06:18 APTT 57 SECONDS (21-34) H 08/09/18 06:10 - Constitutional Appears: No Acute Distress, Chronically Ill - Head Exam Head Exam: absent: NORMAL INSPECTION (old ecchymosis) - Eye Exam Eye Exam: Normal appearance - ENT Exam ENT Exam: Mucous Membranes Moist - Neck Exam Neck Exam: Full ROM - Respiratory Exam Respiratory Exam: Rales, NORMAL BREATHING PATTERN. absent: Wheezes, Respiratory Distress - Cardiovascular Exam Cardiovascular Exam: REGULAR RHYTHM - GI/Abdominal Exam GI & Abdominal Exam: Soft, Normal Bowel Sounds. absent: Tenderness - Back Exam Back Exam: NORMAL INSPECTION - Neurological Exam Neurological Exam: Awake, Oriented x3 - Psychiatric Exam Psychiatric exam: Normal Affect, Normal Mood - Skin Skin Exam: Dry, Intact, Normal Color Assessment and Plan - Assessment and Plan (Free Text) Plan: 1. Bilateral PE Continue IV heparin Breathing is improving. Saturating good on 2l NC CXR 08/07: venous congestion, patchy infiltrate, pleural effusion R>L CTA chest showed diffuse bilateral pulmonary emboli involving bilateral central and segmental pulmonary arteries, cardiac silhouette enlarged, there is evidence of pulmonary venous congestion compatible with CHF, left basilar atelectasis vs pulmonary infarct (official report pending) LE duplex shows left acute thrombosis of the left common femoral vein echo showed LVEF 50-55%, mild to moderate TR and pulmonary hypertension s/p respiratory arrest, ACLS performed 2. NSTEMI Patient on heparin drip started on Asa 81mg, Plavix 75mg and Metoprolol XL Dr. 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 Slater, ID on board 4. Acute renal failure On hemodialysis,last dialysis on friday monitor creatinine, Dr. Henson, nephro Getting dialysis via right perma cath left TLC, intact with dressing dry 5. s/p Atrial Fibrillation with RVR -Initial EKG showed afib with rate of 146 bpm -Patient on heparin drip 6.Anxiety - Xanax 0.25mg PO TID PRN 7.GI/DVT ppx: -Protonix 40mg IVP Q12H -Florastor 250 BID
[2018-08-09 10:32] LABS: BANDS 4 % (0-2); BASOPHIL 1 % (0-2); LYMPHOCYTE 4 % (20-40); MONOCYTE 6 % (0-10); NEUTROPHIL 85 % (50-75); PLATELET ESTIMATE NORMAL (NORMAL); TOTAL CELLS COUNTED 100
[2018-08-09 10:33] LABS: ANISOCYTOSIS MODERATE; HYPOCHROMIC SLIGHT; POIKILOCYTOSIS SLIGHT; POLYCHROMIC SLIGHT; SCHISTOCYTES SLIGHT
[2018-08-09 10:34] LABS: OVALOCYTES SLIGHT
[2018-08-09 10:35] LABS: BURR CELLS SLIGHT; TOXIC GRANULATION PRESENT
[2018-08-09 10:36] LABS: LARGE PLATELETS PRESENT
[2018-08-09] MEDS: Saccharomyces Boulardi 250 mg Cap PO SCH ×2 (11:56→17:06)
[2018-08-09] MEDS: Metoprolol Succinate 50 mg XL Tab PO SCH (11:56)
[2018-08-09] MEDS: Nystatin 100,000 Units/ml Oral Susp 5 ml UD PO SCH ×4 (11:57→21:12)
[2018-08-09] MEDS: Pantoprazole 40 mg EC Tab PO SCH (17:00)
--- NOTE | 2018-08-09 17:30 | CP.CCUPN ---
CCU Subjective - Physician Review Events Since Last Encounter (Free Text): 08/09/18 17:29 Patient was in admitted to the intensive care unit with chest pain. Patient now feeling better. Sitting up comfortably. Not in any distress. Exertional dyspnea noted Vital signs stable. Chest good air entry Regular heart sound Nontender abdomen. Labs reviewed Assessment: 48-year-old female with a history of per minute embolism cardiac arrest status post resuscitation acute renal failure. Patient now having non-ST elevation TX. Elevated troponin troponin. Underlying vasculitis cannot be ruled out, cardiology follow-up. vasculitis workup pending. Will follow the patient Critical Care Time Spent (in minutes): 45 CCU Objective - Vital Signs / Intake & Output Intake and Output (Last 8hrs): Intake & Output 08/09/18 08/09/18 08/09/18 06:59 14:59 22:59 Intake Total 99.6 312.2 Output Total 270 0 Balance -170.4 312.2 Weight 162 lb 4.8 oz Intake: Intake, IV Amount 69.6 52.2 Left Distal Port Internal 69.6 52.2 Jugular Oral 30 260 Output: Urine 270 Urethral (Becerril) 270 Emesis 0 Other: # Voids Urine, Voided 200 # Bowel Movements 0 - Physical Exam Head: Positive for: Normocephalic, Ecchymosis Pupils: Positive for: PERRL Extroacular Muscles: Positive for: EOMI Conjunctiva: Positive for: Normal Mouth: Positive for: Dry Pharnyx: Positive for: Other (ett in place) Neck: Positive for: Normal Range of Motion, Trachea Midline Respiratory/Chest: Positive for: Good Air Exchange, Decreased Breath Sounds Cardiovascular: Positive for: Regular Rate and Rhythm, Normal S1, S2 Abdomen: Positive for: Tenderness (mild tenderness in right upper quadrant ) Upper Extremity: Positive for: Other (ecchymosis surrounding IV sites ). Negative for: Cyanosis Lower Extremity: Positive for: Edema. Negative for: CALF TENDERNESS, Te mperature Abnormalties Neurological: Positive for: GCS=15, CN II-XII Intact Skin: Positive for: Warm, Dry, Normal Color Psychiatric: Positive for: Alert, Oriented x 3, Normal Insight, Anxious - Medications Active Medications: Active Medications Generic Name Dose Route Start Last Admin Trade Name Freq PRN Reason Stop Dose Admin Albuterol/Ipratropium 3 ml 07/31/18 20:00 10/14/18 13:48 Duoneb 3 Mg/0.5 Mg (3 Ml) Ud INH 3 ml RQ6 [facility] Administration Alprazolam 0.25 mg 08/04/18 09:00 08/08/18 22:58 Xanax PO 08/11/18 09:01 0.25 mg TID PRN Administration Anxiety Aspirin 81 mg 08/08/18 10:00 08/09/18 11:56 Aspirin Chewable PO 81 mg DAILY [facility] Administration Clopidogrel Bisulfate 75 mg 08/08/18 10:00 08/09/18 11:56 Plavix PO 75 mg DAILY [facility] Administration Famotidine 20 mg 08/08/18 10:00 08/09/18 11:56 Pepcid PO 20 mg DAILY [facility] Administration Heparin Sodium/Sodium Chloride 25,000 units in 250 mls @ 12.247 mls/hr 07/27/18 07:09 08/08/18 14:40 Heparin 05899 Units/250ml 1/2 Normal Saline IV 12 units/kg/hr .[id number] PRN 8.709 mls/hr ADJUST RATE PER PROTOCOL Administration Protocol 16.875 UNITS/KG/HR Cefepime HCl 1 gm/ Sodium 100 mls @ 100 mls/hr 08/05/18 01:00 08/09/18 00:44 Chloride IVPB 100 mls/hr Q24H [facility] Administration Protocol Lidocaine HCl 5 ml 08/07/18 13:19 08/07/18 22:31 Lidocaine 2% Viscous PO 5 ml Q3H PRN Administration Other Metoprolol Succinate 50 mg 08/08/18 15:00 08/09/18 11:56 Toprol Xl PO 50 mg DAILY [facility] Administration Metronidazole 500 mg 07/31/18 14:00 08/09/18 14:00 Flagyl PO 500 mg Q8 [facility] Administration Protocol Nystatin 5 ml 08/07/18 14:00 08/09/18 17:06 Nystatin Oral Susp PO 5 ml QID [facility] Administration Oxycodone HCl 5 mg 08/07/18 16:11 08/07/18 17:25 Oxycodone Immediate Release Tab PO 5 mg Q6 PRN Administration Pain, moderate (4-7) Pantoprazole Sodium 40 mg 08/08/18 10:00 08/08/18 10:58 Protonix Ec Tab PO 40 mg DAILY [facility] Administration Rosuvastatin Calcium 20 mg 08/07/18 22:00 08/08/18 21:46 Crestor PO 20 mg HS [facility] Administration Saccharomyces Boulardii 250 mg 08/05/18 10:00 08/09/18 17:06 Florastor PO 250 mg BID [facility] Administration - Patient Studies Lab Studies: Lab Studies 08/09/18 08/09/18 08/09/18 Range/Units 06:10 06:10 06:10 WBC 11.3 H (4.8-10.8) K/uL RBC 3.10 L (3.80-5.20) Mil/uL Hgb 8.5 L (11.0-16.0) g/dL Hct 25.9 L (34.0-47.0) % MCV 83.4 (81.0-99.0) fL MCH 27.5 (27.0-31.0) pg MCHC 33.0 (33.0-37.0) g/dL RDW 17.7 H (11.5-14.5) % Plt Count 132 (130-400) K/uL MPV 10.8 (7.2-11.7) fL Neut % (Auto) 80.1 H (50.0-75.0) % Lymph % (Auto) 9.5 L (20.0-40.0) % [place] % (Auto) 9.0 (0.0-10.0) % Eos % (Auto) 0.8 (0.0-4.0) % Baso % (Auto) 0.6 (0.0-2.0) % Neut # (Auto) 9.0 H (1.8-7.0) K/uL Lymph # (Auto) 1.1 (1.0-4.3) K/uL [place] # (Auto) 1.0 H (0.0-0.8) K/uL Eos # (Auto) 0.1 (0.0-0.7) K/uL Baso # (Auto) 0.1 (0.0-0.2) K/uL Neutrophils % (Manual) 85 H (50-75) % Band Neutrophils % 4 H (0-2) % Lymphocytes % (Manual) 4 L (20-40) % Monocytes % (Manual) 6 (0-10) % Basophils % (Manual) 1 (0-2) % Toxic Granulation Present Platelet Estimate Normal (NORMAL) Large Platelets Present Polychromasia Slight Hypochromasia (manual) Slight Poikilocytosis (manual Slight Anisocytosis (manual) Moderate Ovalocytes Slight Kya Cells Slight Schistocytes Slight APTT 57 H (21-34) SECONDS Sodium 139 (132-148) mmol/L Potassium 3.9 (3.6-5.2) mmol/L Chloride 107 (98-107) mmol/L Carbon Dioxide 20 L (22-30) mmol/L Anion Gap 15 (10-20) BUN 31 H (7-17) mg/dL Creatinine 3.8 H (0.7-1.2) mg/dL Est GFR ( Amer) 15 Est GFR (Non-Af Amer) 13 Random Glucose 95 (65-105) mg/dL Calcium 8.7 (8.6-10.4) mg/dl Total Bilirubin 0.9 (0.2-1.3) mg/dL AST 84 H D (14-36) U/L ALT 52 (9-52) U/L Alkaline Phosphatase 81 (38-126) U/L Troponin I 31.5000 H* (0.00-0.120) ng/mL Total Protein 6.1 L (6.3-8.3) g/dL Albumin 3.3 L (3.5-5.0) g/dL Globulin 2.7 (2.2-3.9) gm/dL Albumin/Globulin Ratio 1.2 (1.0-2.1) Urine Color (YELLOW) Urine Clarity (Clear) Urine pH (5.0-8.0) Ur Specific [place] (1.003-1.030) Urine Protein (NEGATIVE) mg/dL Urine Glucose (UA) (Normal) mg/dL Urine Ketones (NEGATIVE) mg/dL Urine Blood (NEGATIVE) Urine Nitrate (NEGATIVE) Urine Bilirubin (NEGATIVE) Urine Urobilinogen (0.2-1.0) mg/dL Ur Leukocyte Esterase (Negative) Jessica/uL Urine WBC (Auto) (0-5) /hpf Urine RBC (Auto) (0-3) /hpf Ur Squamous Epith Cells (0-5) /hpf Urine Bacteria (<OCC) 08/08/18 Range/Units 18:14 WBC (4.8-10.8) K/uL RBC (3.80-5.20) Mil/uL Hgb (11.0-16.0) g/dL Hct (34.0-47.0) % MCV (81.0-99.0) fL MCH (27.0-31.0) pg MCHC (33.0-37.0) g/dL RDW (11.5-14.5) % Plt Count (130-400) K/uL MPV (7.2-11.7) fL Neut % (Auto) (50.0-75.0) % Lymph % (Auto) (20.0-40.0) % [place] % (Auto) (0.0-10.0) % Eos % (Auto) (0.0-4.0) % Baso % (Auto) (0.0-2.0) % Neut # (Auto) (1.8-7.0) K/uL Lymph # (Auto) (1.0-4.3) K/uL [place] # (Auto) (0.0-0.8) K/uL Eos # (Auto) (0.0-0.7) K/uL Baso # (Auto) (0.0-0.2) K/uL Neutrophils % (Manual) (50-75) % Band Neutrophils % (0-2) % Lymphocytes % (Manual) (20-40) % Monocytes % (Manual) (0-10) % Basophils % (Manual) (0-2) % Toxic Granulation Platelet Estimate (NORMAL) Large Platelets Polychromasia Hypochromasia (manual) Poikilocytosis (manual Anisocytosis (manual) Ovalocytes [place] Cells Schistocytes APTT (21-34) SECONDS Sodium (132-148) mmol/L Potassium (3.6-5.2) mmol/L Chloride (98-107) mmol/L Carbon Dioxide (22-30) mmol/L Anion Gap (10-20) BUN (7-17) mg/dL Creatinine (0.7-1.2) mg/dL Est GFR ( Amer) Est GFR (Non-Af Amer) Random Glucose (65-105) mg/dL Calcium (8.6-10.4) mg/dl Total Bilirubin (0.2-1.3) mg/dL AST (14-36) U/L ALT (9-52) U/L Alkaline Phosphatase (38-126) U/L Troponin I (0.00-0.120) ng/mL Total Protein (6.3-8.3) g/dL Albumin (3.5-5.0) g/dL Globulin (2.2-3.9) gm/dL Albumin/Globulin Ratio (1.0-2.1) Urine Color Yellow (YELLOW) Urine Clarity Hazy (Clear) Urine pH 6.0 (5.0-8.0) Ur Specific [place] 1.008 (1.003-1.030) Urine Protein 2+ H (NEGATIVE) mg/dL Urine Glucose (UA) Normal (Normal) mg/dL Urine Ketones Negative (NEGATIVE) mg/dL Urine Blood 3+ H (NEGATIVE) Urine Nitrate Negative (NEGATIVE) Urine Bilirubin Negative (NEGATIVE) Urine Urobilinogen Normal (0.2-1.0) mg/dL Ur Leukocyte Esterase 1+ H (Negative) Jessica/uL Urine WBC (Auto) 100 H (0-5) /hpf Urine RBC (Auto) 24 H (0-3) /hpf Ur Squamous Epith Cells 11 H (0-5) /hpf Urine Bacteria Many H (<OCC) Laboratory Results - last 24 hr 08/08/18 08/09/18 08/09/18 18:14 06:10 06:10 WBC 11.3 H RBC 3.10 L Hgb 8.5 L Hct 25.9 L MCV 83.4 MCH 27.5 MCHC 33.0 RDW 17.7 H Plt Count 132 MPV 10.8 Neut % (Auto) 80.1 H Lymph % (Auto) 9.5 L [place] % (Auto) 9.0 Eos % (Auto) 0.8 Baso % (Auto) 0.6 Neut # (Auto) 9.0 H Lymph # (Auto) 1.1 [place] # (Auto) 1.0 H Eos # (Auto) 0.1 Baso # (Auto) 0.1 Neutrophils % (Manual) 85 H Band Neutrophils % 4 H Lymphocytes % (Manual) 4 L Monocytes % (Manual) 6 Basophils % (Manual) 1 Toxic Granulation Present Platelet Estimate Normal Large Platelets Present Polychromasia Slight Hypochromasia (manual) Slight Poikilocytosis (manual Slight Anisocytosis (manual) Moderate Ovalocytes Slight Kya Cells Slight Schistocytes Slight APTT Sodium 139 Potassium 3.9 Chloride 107 Carbon Dioxide 20 L Anion Gap 15 BUN 31 H Creatinine 3.8 H Est GFR ( Amer) 15 Est GFR (Non-Af Amer) 13 Random Glucose 95 Calcium 8.7 Total Bilirubin 0.9 AST 84 H D ALT 52 Alkaline Phosphatase 81 Troponin I 31.5000 H* Total Protein 6.1 L Albumin 3.3 L Globulin 2.7 Albumin/Globulin Ratio 1.2 Urine Color Yellow Urine Clarity Hazy Urine pH 6.0 Ur Specific [place] 1.008 Urine Protein 2+ H Urine Glucose (UA) Normal Urine Ketones Negative Urine Blood 3+ H Urine Nitrate Negative Urine Bilirubin Negative Urine Urobilinogen Normal Ur Leukocyte Esterase 1+ H Urine WBC (Auto) 100 H Urine RBC (Auto) 24 H Ur Squamous Epith Cells 11 H Urine Bacteria Many H 08/09/18 06:10 WBC RBC Hgb Hct MCV MCH MCHC RDW Plt Count MPV Neut % (Auto) Lymph % (Auto) [place] % (Auto) Eos % (Auto) Baso % (Auto) Neut # (Auto) Lymph # (Auto) [place] # (Auto) Eos # (Auto) Baso # (Auto) Neutrophils % (Manual) Band Neutrophils % Lymphocytes % (Manual) Monocytes % (Manual) Basophils % (Manual) Toxic Granulation Platelet Estimate Large Platelets Polychromasia Hypochromasia (manual) Poikilocytosis (manual Anisocytosis (manual) Ovalocytes [place] Cells Schistocytes APTT 57 H Sodium Potassium Chloride Carbon Dioxide Anion Gap BUN Creatinine Est GFR ( Amer) Est GFR (Non-Af Amer) Random Glucose Calcium Total Bilirubin AST ALT Alkaline Phosphatase Troponin I Total Protein Albumin Globulin Albumin/Globulin Ratio Urine Color Urine Clarity Urine pH Ur Specific [place] Urine Protein Urine Glucose (UA) Urine Ketones Urine Blood Urine Nitrate Urine Bilirubin Urine Urobilinogen Ur Leukocyte Esterase Urine WBC (Auto) Urine RBC (Auto) Ur Squamous Epith Cells Urine Bacteria Fingerstick Blood Sugar Results: 288 Critical Care Progress Note - Nutrition Nutrition: Nutrition Category Date Time Status Mechanically altered [Dysphagia/Modified Consistency Diets 08/01/18 Dinner Active Diet] [DIET]
[2018-08-09] MEDS: Heparin25000 units/250ml 1/2NS 25,000 UNITS/250 ML BAG IV PRN (20:04)
[2018-08-09] MEDS: oxyCODONE 5 mg Immediate Release Tab PO PRN (22:40)
[2018-08-10] MEDS: Cefepime 1 GM in Sodium Chloride 0.9% 100 ML IVPB SCH (00:28)
[2018-08-10] MEDS: Albuterol-Ipratrop 3 mg / 0.5 (3 ml) UD INH SCH ×4 (01:24→19:41)
[2018-08-10 06:11] LABS: BASO # 0.1 K/uL (0.0-0.2); BASO % 0.9 % (0.0-2.0); EOS # 0.1 K/uL (0.0-0.7); EOS % 0.9 % (0.0-4.0); LYMPH # 1.1 K/uL (1.0-4.3); LYMPH % 11.2 % (20.0-40.0); MEAN CELL VOLUME 83.3 fL (81.0-99.0); MEAN CORPUSCULAR HEMOGLOBIN 28.1 pg (27.0-31.0); MEAN CORPUSCULAR HGB CONC 33.7 g/dL (33.0-37.0); MEAN PLATELET VOLUME 10.9 fL (7.2-11.7); MONO % 10.6 % (0.0-10.0); NEUT # 7.3 K/uL (1.8-7.0); NEUT % 76.4 % (50.0-75.0); NRBC % 0.1 % (0.0-2.0); RBC 3.2 Mil/uL (3.80-5.20); RED CELL DISTRIBUTION WIDTH 18.4 % (11.5-14.5); WHITE BLOOD COUNT 9.5 K/uL (4.8-10.8)
[2018-08-10 06:26] LABS: ALB/GLOB RATIO 1.2 (1.0-2.1); ALBUMIN 3.5 g/dL (3.5-5.0); CALCIUM 8.8 mg/dl (8.6-10.4)
--- NOTE | 2018-08-10 09:06 | CP.PCM.PN ---
Subjective - Date & Time of Evaluation Date of Evaluation: 08/10/18 Time of Evaluation: 09:00 - Subjective Subjective: Patient was seen and examined by me. The patient was with family member at bedside. The patient was not in any acute distress. I am now seeing her again since last week my colleague was seeing her. As mentioned previously she was moved out of ICU however developed chest pain and positive troponins and since then moved back to the ICU. The troponin was 31 as of last night. Currently remains on heparin ggt. The patient did not have chest pain this morning. When I came and saw this morning there were plans for a potential cardiac catherization. Objective - Vital Signs/Intake and Output Vital Signs (last 24 hours): Temp Pulse Resp BP Pulse Ox 98 F 95 H 35 H 121/74 85 L 08/10/18 08:00 08/10/18 08:00 08/10/18 08:00 08/10/18 07:51 08/10/18 08:00 Intake and Output: 08/10/18 08/10/18 06:59 18:59 Intake Total 563.1 8.6 Output Total 740 115 Balance -176.9 -106.4 - Medications Medications: Current Medications Albuterol/Ipratropium (Duoneb 3 Mg/0.5 Mg (3 Ml) Ud) 3 ml INH RQ6 [facility] Last Admin: 08/10/18 08:04 Dose: Not Given Alprazolam (Xanax) 0.25 mg PO TID PRN PRN Reason: Anxiety Stop: 08/11/18 09:01 Last Admin: 08/09/18 22:40 Dose: 0.25 mg Aspirin (Aspirin Chewable) 81 mg PO DAILY [facility] Last Admin: 08/09/18 11:56 Dose: 81 mg Clopidogrel Bisulfate (Plavix) 75 mg PO DAILY [facility] Last Admin: 08/09/18 11:56 Dose: 75 mg Famotidine (Pepcid) 20 mg PO DAILY [facility] Last Admin: 08/09/18 11:56 Dose: 20 mg Heparin Sodium/Sodium Chloride (Heparin 24857 Units/250ml 1/2 Normal Saline) 25,000 units in 250 mls @ 12.247 mls/hr IV .[id number] PRN; Protocol PRN Reason: ADJUST RATE PER PROTOCOL Last Admin: 08/09/18 20:04 Dose: 12 units/kg/hr, 8.709 mls/hr Cefepime HCl 1 gm/ Sodium (Chloride) 100 mls @ 100 mls/hr IVPB Q24H [facility]; Protocol Last Admin: 08/10/18 00:28 Dose: 100 mls/hr Lidocaine HCl (Lidocaine 2% Viscous) 5 ml PO Q3H PRN PRN Reason: Other Last Admin: 08/07/18 22:31 Dose: 5 ml Metoprolol Succinate (Toprol Xl) 50 mg PO DAILY [facility] Last Admin: 08/09/18 11:56 Dose: 50 mg Metronidazole (Flagyl) 500 mg PO Q8 [facility]; Protocol Last Admin: 08/10/18 04:59 Dose: 500 mg Nystatin (Nystatin Oral Susp) 5 ml PO QID [facility] Last Admin: 08/09/18 21:12 Dose: 5 ml Oxycodone HCl (Oxycodone Immediate Release Tab) 5 mg PO Q6 PRN PRN Reason: Pain, moderate (4-7) Last Admin: 08/09/18 22:40 Dose: 5 mg Rosuvastatin Calcium (Crestor) 20 mg PO HS [facility] Last Admin: 08/09/18 21:12 Dose: 20 mg Saccharomyces Boulardii (Florastor) 250 mg PO BID [facility] Last Admin: 08/09/18 17:06 Dose: 250 mg - Labs Labs: 08/10/18 06:02 08/10/18 06:02 PT 17.9 SECONDS (9.7-12.2) H 08/05/18 06:18 INR 1.6 08/05/18 06:18 APTT 67 SECONDS (21-34) H D 08/10/18 06:02 - Constitutional Appears: No Acute Distress, Chronically Ill - Head Exam Additional comments: Echymosis over right eye - Eye Exam Eye Exam: EOMI - ENT Exam ENT Exam: Mucous Membranes Moist - Respiratory Exam Respiratory Exam: Decreased Breath Sounds, Rales, Rhonchi, NORMAL BREATHING PATTERN - Cardiovascular Exam Cardiovascular Exam: REGULAR RHYTHM - GI/Abdominal Exam GI & Abdominal Exam: Soft. absent: Tenderness - Neurological Exam Neurological Exam: Alert, Awake, Oriented x3 Neuro motor strength exam: Left Upper Extremity: 5, Right Upper Extremity: 5 - Psychiatric Exam Psychiatric exam: Depressed, Flat Affect - Skin Skin Exam: Warm Additional comments: areas of echymosis around her neck Assessment and Plan - Assessment and Plan (Free Text) Assessment: 1. NSTEMI 08/10: Currently no chest pain. Remains on heparin ggt. Plavix, ASA, Statin Cardiology is planning on potential cardiac catherization later today. As mentioned previously the patient was transferred back to the ICU on 08/08 after chest pain and elevated troponins. 2. Bilateral PE, DVT 08/10: Currently remains on the heparin ggt. Currently on nasal cannula and SpO2s have been stable. As mentioned in previous notes when she was first admitted she was in ICU intubated from respiratory arrest/ACLS and then extubated on 08/01 Continue IV heparin Breathing is improving. Saturating good on 2L NC CXR 08/07: venous congestion, patchy infiltrate, pleural effusion R>L CTA chest showed diffuse bilateral pulmonary emboli involving bilateral central and segmental pulmonary arteries, cardiac silhouette enlarged, there is evidence of pulmonary venous congestion compatible with CHF, left basilar atelectasis vs pulmonary infarct (official report pending) LE duplex shows left acute thrombosis of the left common femoral vein Echo showed LVEF 50-55%, mild to moderate TR and pulmonary hypertension 3.Pneumonia 08/10: Currently on IV cefpime and IV flagyl. The WBC is stable, afebrile at this moment. 4. Acute renal failure 08/10: Urine output recorded as 1220. Creatine was 4.5 this AM. Last HD was on Friday Getting dialysis via right perma cath Left TLC, intact with dressing dry 5. s/p Atrial Fibrillation with RVR -Initial EKG showed afib with rate of 146 bpm -Patient on heparin drip 6.Anxiety - Xanax 0.25mg PO TID PRN 7.GI/DVT ppx: -Protonix 40mg IVP Q12H -Florastor 250 BID
[2018-08-10] MEDS ORDERED: Verapamil 2 ML ONE (09:55)
[2018-08-10] MEDS ORDERED: Lidocaine 2% PF (10 ml) Amp ONE (09:55)
[2018-08-10] MEDS ORDERED: Iodixanol 320 MG/ML 200 ML BOTTLE IV ONE (09:56)
--- NOTE | 2018-08-10 10:17 | CP.PCM.PN ---
<Haseeb Moyer - Last Filed: 08/10/18 13:17> Subjective - Date & Time of Evaluation Date of Evaluation: 08/10/18 Time of Evaluation: 08:45 - Subjective Subjective: Nephrology Progress Note for Dr. Henson Patient was seen and examined at bedside. Patient complains of some discomfort in her upper back. Patient denies chest pain, shortness of breath, palpitations, nausea, vomiting, diarrhea or constipation. 12 Point ROS performed and neg other than stated above. Objective - Vital Signs/Intake and Output Vital Signs (last 24 hours): Temp Pulse Resp BP Pulse Ox 98 F 96 H 27 H 118/73 100 08/10/18 08:00 08/10/18 09:00 08/10/18 09:00 08/10/18 08:51 08/10/18 09:00 Intake and Output: 08/10/18 08/10/18 06:59 18:59 Intake Total 563.1 17.2 Output Total 740 150 Balance -176.9 -132.8 - Medications Medications: Current Medications Albuterol/Ipratropium (Duoneb 3 Mg/0.5 Mg (3 Ml) Ud) 3 ml INH RQ6 [facility] Last Admin: 08/10/18 08:04 Dose: Not Given Alprazolam (Xanax) 0.25 mg PO TID PRN PRN Reason: Anxiety Stop: 08/11/18 09:01 Last Admin: 08/09/18 22:40 Dose: 0.25 mg Aspirin (Aspirin Chewable) 81 mg PO DAILY [facility] Last Admin: 08/09/18 11:56 Dose: 81 mg Clopidogrel Bisulfate (Plavix) 75 mg PO DAILY [facility] Last Admin: 08/09/18 11:56 Dose: 75 mg Famotidine (Pepcid) 20 mg PO DAILY [facility] Last Admin: 08/09/18 11:56 Dose: 20 mg Heparin Sodium/Sodium Chloride (Heparin 30943 Units/250ml 1/2 Normal Saline) 25,000 units in 250 mls @ 12.247 mls/hr IV .[id number] PRN; Protocol PRN Reason: ADJUST RATE PER PROTOCOL Last Admin: 08/09/18 20:04 Dose: 12 units/kg/hr, 8.709 mls/hr Cefepime HCl 1 gm/ Sodium (Chloride) 100 mls @ 100 mls/hr IVPB Q24H [facility]; Protocol Last Admin: 08/10/18 00:28 Dose: 100 mls/hr Lidocaine HCl (Lidocaine 2% Viscous) 5 ml PO Q3H PRN PRN Reason: Other Last Admin: 08/07/18 22:31 Dose: 5 ml Metoprolol Succinate (Toprol Xl) 50 mg PO DAILY [facility] Last Admin: 08/09/18 11:56 Dose: 50 mg Metronidazole (Flagyl) 500 mg PO Q8 [facility]; Protocol Last Admin: 08/10/18 04:59 Dose: 500 mg Nystatin (Nystatin Oral Susp) 5 ml PO QID [facility] Last Admin: 08/09/18 21:12 Dose: 5 ml Oxycodone HCl (Oxycodone Immediate Release Tab) 5 mg PO Q6 PRN PRN Reason: Pain, moderate (4-7) Last Admin: 08/09/18 22:40 Dose: 5 mg Rosuvastatin Calcium (Crestor) 20 mg PO HS [facility] Last Admin: 08/09/18 21:12 Dose: 20 mg Saccharomyces Boulardii (Florastor) 250 mg PO BID [facility] Last Admin: 08/09/18 17:06 Dose: 250 mg - Labs Labs: 08/10/18 06:02 08/10/18 06:02 PT 17.9 SECONDS (9.7-12.2) H 08/05/18 06:18 INR 1.6 08/05/18 06:18 APTT 67 SECONDS (21-34) H D 08/10/18 06:02 - Constitutional Appears: No Acute Distress - Head Exam Head Exam: ATRAUMATIC, NORMOCEPHALIC - Eye Exam Eye Exam: EOMI - ENT Exam ENT Exam: Mucous Membranes Moist - Respiratory Exam Respiratory Exam: Clear to Ausculation Bilateral. absent: Rales, Wheezes - Cardiovascular Exam Cardiovascular Exam: RRR, +S1, +S2 - GI/Abdominal Exam GI & Abdominal Exam: Soft. absent: Distended, Tenderness - Extremities Exam Extremities Exam: absent: Calf Tenderness, Tenderness - Neurological Exam Neurological Exam: Alert, Awake, Oriented x3 - Skin Skin Exam: Dry, Intact Assessment and Plan - Assessment and Plan (Free Text) Assessment: Patient with pmh of anxiety, possible UTI, on OCP admitted with b/l PE and PNA, septic shock and acute renal failure requiring HD. Patient found to have e levated troponin and was brought to the ICU. Plan for cardiac cath today. - F/u cardiac cath report - cardiology - prelim report possible RCA dissection, awaiting official report, f/u regarding if Plavix and/or asa can be discontinued - f/u Vasculitis work up - Plan for HD today. Last HD 08/07/18, tolerated well, Cr increased 3.8--> 4.5 today -Monitoring of I and O, and to eval if still oligouric -Nystatin swish swallow for white patches on the tongue consistant with [place]; Lidocaine oral jeanette PO for sore/ blister on the inner upper lip -Cont to monitor Cr for improvement -On cefepime for PNA, renal dosed for CrCl < 20 -Cont heparin drip for PE and for elevated troponin; no oral anticoagulation in case any procedure needed eg. tunneled HD cath -Avoid all nephrotoxic agents (NSAIDS, phosphate enema, IV dye) Case and plan was reviewed and discussed in detail with Dr Henson. <Pato Henson - Last Filed: 08/11/18 09:10> Objective - Vital Signs/Intake and Output Vital Signs (last 24 hours): Temp Pulse Resp BP Pulse Ox 99.7 F H 97 H 26 H 116/74 100 08/11/18 08:00 08/11/18 08:07 08/11/18 08:07 08/11/18 08:07 08/11/18 08:07 Intake and Output: 08/11/18 08/11/18 06:59 18:59 Intake Total 450 Output Total 550 75 Balance -100 -75 - Medications Medications: Current Medications Albuterol/Ipratropium (Duoneb 3 Mg/0.5 Mg (3 Ml) Ud) 3 ml INH RQ6 [facility] Last Admin: 08/11/18 08:47 Dose: 3 ml Aspirin (Aspirin Chewable) 81 mg PO DAILY [facility] Last Admin: 08/10/18 12:33 Dose: 81 mg Clopidogrel Bisulfate (Plavix) 75 mg PO DAILY [facility] Last Admin: 08/10/18 12:34 Dose: 75 mg Famotidine (Pepcid) 20 mg PO DAILY [facility] Last Admin: 08/10/18 12:34 Dose: 20 mg Guaifenesin (Robitussin) 100 mg PO Q4H PRN PRN Reason: Cough Last Admin: 08/10/18 12:33 Dose: 100 mg Cefepime HCl 1 gm/ Sodium (Chloride) 100 mls @ 100 mls/hr IVPB Q24H [facility]; Protocol Last Admin: 08/11/18 00:00 Dose: 100 mls/hr Lidocaine HCl (Lidocaine 2% Viscous) 5 ml PO Q3H PRN PRN Reason: Other Last Admin: 08/07/18 22:31 Dose: 5 ml Metoprolol Succinate (Toprol Xl) 50 mg PO DAILY [facility] Last Admin: 08/10/18 12:34 Dose: 50 mg Metronidazole (Flagyl) 500 mg PO Q8 [facility]; Protocol Last Admin: 08/11/18 05:28 Dose: 500 mg Nitroglycerin (Nitro-Bid 2% Oint) 1 ea TOP Q6H [facility] Last Admin: 08/11/18 05:30 Dose: 1 ea Nystatin (Nystatin Oral Susp) 5 ml PO QID [facility] Last Admin: 08/10/18 21:52 Dose: 5 ml Oxycodone HCl (Oxycodone Immediate Release Tab) 5 mg PO Q6 PRN PRN Reason: Pain, moderate (4-7) Last Admin: 08/11/18 07:19 Dose: 5 mg Rosuvastatin Calcium (Crestor) 10 mg PO HS [facility] Last Admin: 08/10/18 21:53 Dose: 10 mg Saccharomyces Boulardii (Florastor) 250 mg PO BID [facility] Last Admin: 08/10/18 18:11 Dose: 250 mg - Labs Labs: 08/11/18 06:30 08/11/18 06:30 PT 17.9 SECONDS (9.7-12.2) H 08/05/18 06:18 INR 1.6 08/05/18 06:18 APTT 67 SECONDS (21-34) H D 08/10/18 06:02 Assessment and Plan (1) Acute renal failure Status: Acute (2) Acute respiratory failure with hypoxemia Status: Acute (3) Hypocalcemia Status: Resolved (4) Metabolic acidosis Status: Resolved (5) NSTEMI (non-ST elevated myocardial infarction) Status: Acute Attending/Attestation - Attestation I have personally seen and examined this patient.: Yes I have fully participated in the care of the patient.: Yes I have reviewed all pertinent clinical information, including history, physical exam and plan: Yes Notes (Text): Patient seen and examined; I agree with the resident's note as above with the following additions/edits: 48 yo F w/ no significant pmh admitted with bilateral PE, PNA, septic shock (resolved), BRIAN requiring HD, and new NSTEMI; s/p cardiac cath showing RCA spontaneous dissection as well as occlusion of distal small vessel of posterior LV; concern for underlying medium vessel vasculitis given this finding; however, doubt any renal involvement; ATN, still not resolving though patient non-oliguric; urine microscopy directly visualized today to assess for evidence of underlying GN rather than simply sepsis/hypotension induced ATN; no cellular casts or overt dysmorphic RBC's seen although there is increased hematuria and pyuria that may be explained by brady catheter; Stable volume and electrolyte status; continuing with HD today with UF goal 2L on 4K dialysate; will monitor labs daily looking for signs of renal recovery; Anemia with stable hgb; monitor; -f/u vasculitis and APL syndrome workup;
[2018-08-10] MEDS ORDERED: DiphenhydrAMINE 50 mg/ml Inj ONE (10:26)
[2018-08-10] MEDS: Nystatin 100,000 Units/ml Oral Susp 5 ml UD PO SCH ×4 (11:11→21:52)
[2018-08-10] MEDS: Saccharomyces Boulardi 250 mg Cap PO SCH ×2 (11:13→18:11)
[2018-08-10] MEDS ORDERED: Nitroglycerin 0.1 mg/hr Top Patch TD SCH (12:15)
[2018-08-10] MEDS: Nitroglycerin 2% Ointment Foilpak UD TOP SCH ×3 (12:31→23:45)
[2018-08-10] MEDS ORDERED: Nitroglycerin 2% Ointment Foilpak UD TOP ONE (12:33)
[2018-08-10] MEDS: guaiFENesin 100 mg/5 ml Syrup UD PO PRN (12:33)
[2018-08-10] MEDS: Metoprolol Succinate 50 mg XL Tab PO SCH (12:34)
[2018-08-10] MEDS: oxyCODONE 5 mg Immediate Release Tab PO PRN ×2 (14:43→22:39)
--- NOTE | 2018-08-10 14:48 | CP.CCUPN ---
CCU Subjective - Physician Review Subjective (Free Text): Resident Critical Care Progress Note Patient examined at bedside. Patient currently saturating well on nasal cannula and tolerating out of bed to chair. Plan for HD today. Critical Care Time Spent (in minutes): 35 CCU Objective - Vital Signs / Intake & Output Vital Signs (Last 4 hours): Vital Signs Temp Pulse Resp BP Pulse Ox 08/10/18 14:22 129/78 08/10/18 14:21 100 H 28 H 100 08/10/18 14:00 106 H 21 100 08/10/18 13:52 105 H 15 127/76 100 08/10/18 13:50 103 H 20 127/76 08/10/18 13:22 105 H 26 H 131/78 100 08/10/18 13:20 105 H 20 131/78 08/10/18 13:00 107 H 30 H 100 08/10/18 12:52 104 H 26 H 125/81 100 08/10/18 12:50 101 H 18 125/81 08/10/18 12:20 91 H 18 130/75 100 08/10/18 12:05 94 H 29 H 137/72 100 08/10/18 12:00 99.3 F 95 H 21 100 08/10/18 11:50 95 H 23 127/75 100 08/10/18 11:35 96 H 16 132/79 08/10/18 11:34 95 H 21 132/79 100 08/10/18 11:20 93 H 13 131/77 100 08/10/18 11:05 96 H 18 130/77 08/10/18 11:04 93 H 32 H 130/77 100 08/10/18 11:00 94 H 33 H 100 08/10/18 10:50 99.3 F 95 H 30 H 128/77 100 08/10/18 10:49 89 100 Intake and Output (Last 8hrs): Intake & Output 08/09/18 08/10/18 08/10/18 22:59 06:59 14:59 Intake Total 530.9 178.3 217.2 Output Total 490 430 575 Balance 40.9 -251.7 -357.8 Weight 163 lb Intake: IV 250 Intake, IV Amount 60.9 178.3 17.2 Left Distal Port Internal 60.9 78.3 17.2 Jugular Left Medial Port Internal 100 Jugular Oral 220 200 Output: Urine 490 430 575 Urethral (Becerril) 490 430 575 Emesis 0 Other: # Bowel Movements 1 0 - Physical Exam Head: Positive for: Atraumatic, Normocephalic Pupils: Positive for: PERRL Extroacular Muscles: Positive for: EOMI Conjunctiva: Positive for: Normal Mouth: Positive for: Dry Neck: Positive for: Normal Range of Motion, Trachea Midline Respiratory/Chest: Positive for: Good Air Exchange, Decreased Breath Sounds. Negative for: Respiratory Distress Cardiovascular: Positive for: Regular Rate and Rhythm, Normal S1, S2 Abdomen: Positive for: Tenderness (mild tenderness in right upper quadrant ) Upper Extremity: Positive for: Normal Inspection. Negative for: Cyanosis Lower Extremity: Positive for: Edema. Negative for: CALF TENDERNESS, Temperature Abnormalties Neurological: Positive for: GCS=15, CN II-XII Intact, Speech Normal Skin: Positive for: Warm, Dry, Normal Color Psychiatric: Positive for: Alert, Oriented x 3, Normal Insight, Anxious - Medications Active Medications: Active Medications Generic Name Dose Route Start Last Admin Trade Name Freq PRN Reason Stop Dose Admin Albuterol/Ipratropium 3 ml 07/31/18 20:00 08/10/18 13:33 Duoneb 3 Mg/0.5 Mg (3 Ml) Ud INH 3 ml RQ6 [facility] Administration Alprazolam 0.25 mg 08/04/18 09:00 08/09/18 22:40 Xanax PO 08/11/18 09:01 0.25 mg TID PRN Administration Anxiety Aspirin 81 mg 08/08/18 10:00 08/10/18 12:33 Aspirin Chewable PO 81 mg DAILY [facility] Administration Clopidogrel Bisulfate 75 mg 08/08/18 10:00 08/10/18 12:34 Plavix PO 75 mg DAILY [facility] Administration Famotidine 20 mg 08/08/18 10:00 08/10/18 12:34 Pepcid PO 20 mg DAILY [facility] Administration Guaifenesin 100 mg 08/10/18 11:22 08/10/18 12:33 Robitussin PO 100 mg Q4H PRN Administration Cough Cefepime HCl 1 gm/ Sodium 100 mls @ 100 mls/hr 08/05/18 01:00 08/10/18 00:28 Chloride IVPB 100 mls/hr Q24H [facility] Administration Protocol Lidocaine HCl 5 ml 08/07/18 13:19 08/07/18 22:31 Lidocaine 2% Viscous PO 5 ml Q3H PRN Administration Other Metoprolol Succinate 50 mg 08/08/18 15:00 08/10/18 12:34 Toprol Xl PO 50 mg DAILY [facility] Administration Metronidazole 500 mg 07/31/18 14:00 08/10/18 13:43 Flagyl PO 500 mg Q8 [facility] Administration Protocol Nitroglycerin 1 ea 08/10/18 12:30 08/10/18 12:31 Nitro-Bid 2% Oint TOP 1 ea Q6H [facility] Administration Nystatin 5 ml 08/07/18 14:00 08/10/18 13:42 Nystatin Oral Susp PO 5 ml QID [facility] Administration Oxycodone HCl 5 mg 08/07/18 16:11 08/10/18 14:43 Oxycodone Immediate Release Tab PO 5 mg Q6 PRN Administration Pain, moderate (4-7) Rosuvastatin Calcium 10 mg 08/10/18 22:00 Crestor PO HS [facility] Saccharomyces Boulardii 250 mg 08/05/18 10:00 08/10/18 11:13 Florastor PO Not Given BID [facility] - Patient Studies Lab Studies: Microbiology Studies 08/08/18 15:21 MRSA Culture (Admit) - Final Naris MRSA NOT DETECTED Lab Studies 08/10/18 08/10/18 08/10/18 Range/Units 09:51 08:30 08:30 WBC (4.8-10.8) K/uL RBC (3.80-5.20) Mil/uL Hgb (11.0-16.0) g/dL Hct (34.0-47.0) % MCV (81.0-99.0) fL MCH (27.0-31.0) pg MCHC (33.0-37.0) g/dL RDW (11.5-14.5) % Plt Count (130-400) K/uL MPV (7.2-11.7) fL Neut % (Auto) (50.0-75.0) % Lymph % (Auto) (20.0-40.0) % [place] % (Auto) (0.0-10.0) % Eos % (Auto) (0.0-4.0) % Baso % (Auto) (0.0-2.0) % Neut # (Auto) (1.8-7.0) K/uL Lymph # (Auto) (1.0-4.3) K/uL [place] # (Auto) (0.0-0.8) K/uL Eos # (Auto) (0.0-0.7) K/uL Baso # (Auto) (0.0-0.2) K/uL APTT (21-34) SECONDS Sodium (132-148) mmol/L Potassium (3.6-5.2) mmol/L Chloride (98-107) mmol/L Carbon Dioxide (22-30) mmol/L Anion Gap (10-20) BUN (7-17) mg/dL Creatinine (0.7-1.2) mg/dL Est GFR ( Amer) Est GFR (Non-Af Amer) Random Glucose (65-105) mg/dL Calcium (8.6-10.4) mg/dl Total Bilirubin (0.2-1.3) mg/dL AST (14-36) U/L ALT (9-52) U/L Alkaline Phosphatase (38-126) U/L Total Protein (6.3-8.3) g/dL Albumin (3.5-5.0) g/dL Globulin (2.2-3.9) gm/dL Albumin/Globulin Ratio (1.0-2.1) Urine HCG, Qual Negative (NEGATIVE) [place] 6 Profile Negative (NEGATIVE) Proteinase 3 (PR3) (<1.0) AI Myeloperoxidase Ab (<1.0) AI HIV 1&2 Antibody Screen Negative (NEGATIVE) 08/10/18 08/10/18 08/10/18 Range/Units 06:02 06:02 06:02 WBC 9.5 (4.8-10.8) K/uL RBC 3.20 L (3.80-5.20) Mil/uL Hgb 9.0 L (11.0-16.0) g/dL Hct 26.6 L (34.0-47.0) % MCV 83.3 (81.0-99.0) fL MCH 28.1 (27.0-31.0) pg MCHC 33.7 (33.0-37.0) g/dL RDW 18.4 H (11.5-14.5) % Plt Count 159 (130-400) K/uL MPV 10.9 (7.2-11.7) fL Neut % (Auto) 76.4 H (50.0-75.0) % Lymph % (Auto) 11.2 L (20.0-40.0) % [place] % (Auto) 10.6 H (0.0-10.0) % Eos % (Auto) 0.9 (0.0-4.0) % Baso % (Auto) 0.9 (0.0-2.0) % Neut # (Auto) 7.3 H (1.8-7.0) K/uL Lymph # (Auto) 1.1 (1.0-4.3) K/uL [place] # (Auto) 1.0 H (0.0-0.8) K/uL Eos # (Auto) 0.1 (0.0-0.7) K/uL Baso # (Auto) 0.1 (0.0-0.2) K/uL APTT 67 H D (21-34) SECONDS Sodium 141 (132-148) mmol/L Potassium 3.8 (3.6-5.2) mmol/L Chloride 108 H (98-107) mmol/L Carbon Dioxide 19 L (22-30) mmol/L Anion Gap 18 (10-20) BUN 35 H (7-17) mg/dL Creatinine 4.5 H (0.7-1.2) mg/dL Est GFR ( Amer) 13 Est GFR (Non-Af Amer) 11 Random Glucose 90 (65-105) mg/dL Calcium 8.8 (8.6-10.4) mg/dl Total Bilirubin 0.8 (0.2-1.3) mg/dL AST 63 H D (14-36) U/L ALT 47 (9-52) U/L Alkaline Phosphatase 85 (38-126) U/L Total Protein 6.4 (6.3-8.3) g/dL Albumin 3.5 (3.5-5.0) g/dL Globulin 2.9 (2.2-3.9) gm/dL Albumin/Globulin Ratio 1.2 (1.0-2.1) Urine HCG, Qual (NEGATIVE) [place] 6 Profile (NEGATIVE) Proteinase 3 (PR3) (<1.0) AI Myeloperoxidase Ab (<1.0) AI HIV 1&2 Antibody Screen (NEGATIVE) 08/07/18 Range/Units 10:37 WBC (4.8-10.8) K/uL RBC (3.80-5.20) Mil/uL Hgb (11.0-16.0) g/dL Hct (34.0-47.0) % MCV (81.0-99.0) fL MCH (27.0-31.0) pg MCHC (33.0-37.0) g/dL RDW (11.5-14.5) % Plt Count (130-400) K/uL MPV (7.2-11.7) fL Neut % (Auto) (50.0-75.0) % Lymph % (Auto) (20.0-40.0) % [place] % (Auto) (0.0-10.0) % Eos % (Auto) (0.0-4.0) % Baso % (Auto) (0.0-2.0) % Neut # (Auto) (1.8-7.0) K/uL Lymph # (Auto) (1.0-4.3) K/uL [place] # (Auto) (0.0-0.8) K/uL Eos # (Auto) (0.0-0.7) K/uL Baso # (Auto) (0.0-0.2) K/uL APTT (21-34) SECONDS Sodium (132-148) mmol/L Potassium (3.6-5.2) mmol/L Chloride (98-107) mmol/L Carbon Dioxide (22-30) mmol/L Anion Gap (10-20) BUN (7-17) mg/dL Creatinine (0.7-1.2) mg/dL Est GFR ( Amer) Est GFR (Non-Af Amer) Random Glucose (65-105) mg/dL Calcium (8.6-10.4) mg/dl Total Bilirubin (0.2-1.3) mg/dL AST (14-36) U/L ALT (9-52) U/L Alkaline Phosphatase (38-126) U/L Total Protein (6.3-8.3) g/dL Albumin (3.5-5.0) g/dL Globulin (2.2-3.9) gm/dL Albumin/Globulin Ratio (1.0-2.1) Urine HCG, Qual (NEGATIVE) [place] 6 Profile (NEGATIVE) Proteinase 3 (PR3) <1.0 (<1.0) AI Myeloperoxidase Ab <1.0 (<1.0) AI HIV 1&2 Antibody Screen (NEGATIVE) Laboratory Results - last 24 hr 08/07/18 08/10/18 08/10/18 10:37 06:02 06:02 WBC 9.5 RBC 3.20 L Hgb 9.0 L Hct 26.6 L MCV 83.3 MCH 28.1 MCHC 33.7 RDW 18.4 H Plt Count 159 MPV 10.9 Neut % (Auto) 76.4 H Lymph % (Auto) 11.2 L [place] % (Auto) 10.6 H Eos % (Auto) 0.9 Baso % (Auto) 0.9 Neut # (Auto) 7.3 H Lymph # (Auto) 1.1 [place] # (Auto) 1.0 H Eos # (Auto) 0.1 Baso # (Auto) 0.1 APTT Sodium 141 Potassium 3.8 Chloride 108 H Carbon Dioxide 19 L Anion Gap 18 BUN 35 H Creatinine 4.5 H Est GFR ( Amer) 13 Est GFR (Non-Af Amer) 11 Random Glucose 90 Calcium 8.8 Total Bilirubin 0.8 AST 63 H D ALT 47 Alkaline Phosphatase 85 Total Protein 6.4 Albumin 3.5 Globulin 2.9 Albumin/Globulin Ratio 1.2 Urine HCG, Qual [place] 6 Profile Proteinase 3 (PR3) <1.0 Myeloperoxidase Ab <1.0 HIV 1&2 Antibody Screen 08/10/18 08/10/18 08/10/18 06:02 08:30 08:30 WBC RBC Hgb Hct MCV MCH MCHC RDW Plt Count MPV Neut % (Auto) Lymph % (Auto) [place] % (Auto) Eos % (Auto) Baso % (Auto) Neut # (Auto) Lymph # (Auto) [place] # (Auto) Eos # (Auto) Baso # (Auto) APTT 67 H D Sodium Potassium Chloride Carbon Dioxide Anion Gap BUN Creatinine Est GFR ( Amer) Est GFR (Non-Af Amer) Random Glucose Calcium Total Bilirubin AST ALT Alkaline Phosphatase Total Protein Albumin Globulin Albumin/Globulin Ratio Urine HCG, Qual [place] 6 Profile Negative Proteinase 3 (PR3) Myeloperoxidase Ab HIV 1&2 Antibody Screen Negative 08/10/18 09:51 WBC RBC Hgb Hct MCV MCH MCHC RDW Plt Count MPV Neut % (Auto) Lymph % (Auto) [place] % (Auto) Eos % (Auto) Baso % (Auto) Neut # (Auto) Lymph # (Auto) [place] # (Auto) Eos # (Auto) Baso # (Auto) APTT Sodium Potassium Chloride Carbon Dioxide Anion Gap BUN Creatinine Est GFR ( Amer) Est GFR (Non-Af Amer) Random Glucose Calcium Total Bilirubin AST ALT Alkaline Phosphatase Total Protein Albumin Globulin Albumin/Globulin Ratio Urine HCG, Qual Negative [place] 6 Profile Proteinase 3 (PR3) Myeloperoxidase Ab HIV 1&2 Antibody Screen Fingerstick Blood Sugar Results: 288 Review of Systems - Review of Systems All systems: reviewed and no additional remarkable complaints except (as stated in HPI) Critical Care Progress Note - Nutrition Nutrition: Nutrition Category Date Time Status Dysphagia/Modified Consistency Diet [DIET] Diets 08/10/18 Lunch Active Assessment/Plan - Assessment and Plan (Free Text) Assessment: This is a 48 yo F with PMH of anxiety, bariatric surgery, and recent hx spetic shock, bilateral PE, resp failure requiring intubation (extubated 08/01/18), and cardiac arrest who returns to the ICU due to reported chest pain and increasing trops despite heparin drip. Pending vasculitis and Lupus anticoagulant workup, s/p cardiac cath today. Plan: Neuro: - Awake and alert, following commands - maintain normothermia Pulm: - satting well on nasal canula - continue duonebs 3 ml INH RQ6 - chest PT, incentive spirometry CV: - worsening trops despite heparin drip and dual antiplatelets - Cardio following, appreciate all recs - continue Metoprolol 50mg daily, statin - s/p cardiac cath, showed spontaneous coronary dissection of RCA, EF 45% GI: - Transaminitis resolving - Pepcid for GI ppx Renal: - BRIAN - HD today - Nephro following, appreciate all recs; avoid oral AC in case of need for HD tunnel cath placement Endo: - maintain euglycemia with blood sugars 140-180 Heme: - heparin drip low dose for cardiac - No need for IVC filter, patient's bleeding risk has decreased - worsening trops despite therapeutic anticoagulation, so vasculitis workup and lupus anticoagulant ordered, pending - Heme/onc consulted. Appreciate recs. - Rheum consulted, appreciate all recs. ID: - Flagyl 500 mg Q8H, Cefepime 1 gm Q12H for enterocolitis - Afebrile, off steroids - 07/29 sputum culture positive for yeast, otherwise all cultures negative Dispo: readmitted to ICU due to chest pain and worsening trops while on AC FEN: mechanically altered diet with honey thickened liquids Access: Peripheral IVs, dialysis cath Consults: Cardio, Neuro, Nephro, Rheum, Heme-onc, ID Ppx: Protonix for GI, Heparin drip covers for DVT (SCDs contraindicated d/t DVT) Code Status: unknown, so defaults to FULL Patient seen, reviewed, and discussed with attending, Dr. Narinder Chowdary PGY-1 - Date & Time Date: 08/10/18 Time: 08:00
--- NOTE | 2018-08-10 20:39 | CARD ---
APPROVED REPORT Date of service: 08/07/2018 EKG Measurement Heart [id number] <Conclusion> Sinus tachycardia Low voltage QRS Cannot rule out Inferior infarct, age undetermined T wave abnormality, consider lateral ischemia Abnormal ECG
--- NOTE | 2018-08-10 20:43 | CARD ---
APPROVED REPORT Date of service: 08/07/2018 EKG Measurement Heart [id number] <Conclusion> Normal sinus rhythm Low voltage QRS Cannot rule out Inferior infarct, age undetermined Abnormal ECG
--- NOTE | 2018-08-10 20:48 | CARD ---
APPROVED REPORT Date of service: 08/07/2018 EKG Measurement Heart [id number] [place] [id number] <Conclusion> Normal sinus rhythm ST & T wave abnormality, consider anterolateral ischemia Prolonged QT Abnormal ECG
--- NOTE | 2018-08-10 22:34 | CARDCATH ---
PROCEDURE DATE: 08/10/2018 INDICATIONS: Non-ST elevation IL. A 48-year-old female who presented on 07/27/2018 with massive saddle bilateral PE, status post old traumatic injury to the head. Initially, labs are consistent with possible DIC. The patient continued to be on pressors for a week and was being recovering from her PE and tried to get off of the pressors, became responsive. Right at that time about two weeks later into the course, the patient developed elevated troponin . Therefore, [facility] was [facility] and treatment. PROCEDURE PERFORMED: Left heart catheterization with selective left and right coronary angiogram. Left ventriculogram, 6-Irish right radial arterial access, wrist band for hemostasis. ANGIOGRAPHIC FINDINGS: Left main is a large sized vessel bifurcation into left anterior descending and left circumflex coronary artery. Left main is free of any obstructive disease, 0% stenosis. The left circumflex runs in the AV groove, gives off large obtuse marginal branch. Left circumflex proximal, mid, distal 0% stenosis. Obtuse marginal proximal and mid 0%, distal 45% stenosis. Left anterior descending is a large-sized vessel, gives off a large diagonal branch, free of any obstructive disease, proximal mid and distal 0%. Right coronary artery is a large sized vessel, gives off a large right PDA and a small PLB branch. The dissection noted in the RCA extending from the proximal all the way up to the mid segment within no flow limitation and JUVENAL-3 flow. PLV distally has 99% of the small size vessel. 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 RECOMMENDATION: Aggressive medical management and risk factor modification. Left ventricular ejection fraction 45% to 50% with mild posterior basal hypokinesis. Ignacio Ba MD
[2018-08-11] MEDS: Cefepime 1 GM in Sodium Chloride 0.9% 100 ML IVPB SCH
[2018-08-11] MEDS: Albuterol-Ipratrop 3 mg / 0.5 (3 ml) UD INH SCH ×4 (01:13→20:01)
[2018-08-11] MEDS: Nitroglycerin 2% Ointment Foilpak UD TOP SCH ×3 (05:30→17:47)
[2018-08-11 06:35] LABS: BASO # 0.1 K/uL (0.0-0.2); BASO % 1.1 % (0.0-2.0); EOS % 0.3 % (0.0-4.0); HEMOGLOBIN 8.3 g/dL (11.0-16.0); LYMPH # 0.9 K/uL (1.0-4.3); LYMPH % 10.2 % (20.0-40.0); MEAN CELL VOLUME 82.4 fL (81.0-99.0); MEAN PLATELET VOLUME 10.6 fL (7.2-11.7); MONO # 1.1 K/uL (0.0-0.8); MONO % 11.4 % (0.0-10.0); NEUT # 7.1 K/uL (1.8-7.0); RBC 2.95 Mil/uL (3.80-5.20); RED CELL DISTRIBUTION WIDTH 18.1 % (11.5-14.5); WHITE BLOOD COUNT 9.3 K/uL (4.8-10.8)
[2018-08-11 06:56] LABS: CALCIUM 8.4 mg/dl (8.6-10.4)
[2018-08-11] MEDS: oxyCODONE 5 mg Immediate Release Tab PO PRN ×2 (07:19→22:31)
--- NOTE | 2018-08-11 09:17 | CP.PCM.PN ---
<Phylicia Salgado - Last Filed: 08/11/18 14:30> Subjective - Date & Time of Evaluation Date of Evaluation: 08/11/18 Time of Evaluation: 09:00 - Subjective Subjective: Nephrology Progress Note for Dr. Henson Patient was seen and examined at bedside in the AM. Patient states she has left sided tenderness that started this morning. Patient was re-evaluated later in the afternoon and the left sided tenderness was less. Patient states she was out of bed to chair and she walked as well. Patient states she is eating some food. Patient also states she had a bowel movement today. Patient denies nausea, vomiting, diarrhea, constipation, fever and chills. Objective - Vital Signs/Intake and Output Vital Signs (last 24 hours): Temp Pulse Resp BP Pulse Ox 99.7 F H 97 H 26 H 116/74 100 08/11/18 08:00 08/11/18 08:07 08/11/18 08:07 08/11/18 08:07 08/11/18 08:07 Intake and Output: 08/11/18 08/11/18 06:59 18:59 Intake Total 450 Output Total 550 75 Balance -100 -75 - Medications Medications: Current Medications Albuterol/Ipratropium (Duoneb 3 Mg/0.5 Mg (3 Ml) Ud) 3 ml INH RQ6 [facility] Last Admin: 08/11/18 08:47 Dose: 3 ml Aspirin (Aspirin Chewable) 81 mg PO DAILY [facility] Last Admin: 08/10/18 12:33 Dose: 81 mg Clopidogrel Bisulfate (Plavix) 75 mg PO DAILY [facility] Last Admin: 08/10/18 12:34 Dose: 75 mg Famotidine (Pepcid) 20 mg PO DAILY [facility] Last Admin: 08/10/18 12:34 Dose: 20 mg Guaifenesin (Robitussin) 100 mg PO Q4H PRN PRN Reason: Cough Last Admin: 08/10/18 12:33 Dose: 100 mg Cefepime HCl 1 gm/ Sodium (Chloride) 100 mls @ 100 mls/hr IVPB Q24H [facility]; Protocol Last Admin: 08/11/18 00:00 Dose: 100 mls/hr Lidocaine HCl (Lidocaine 2% Viscous) 5 ml PO Q3H PRN PRN Reason: Other Last Admin: 08/07/18 22:31 Dose: 5 ml Metoprolol Succinate (Toprol Xl) 50 mg PO DAILY [facility] Last Admin: 08/10/18 12:34 Dose: 50 mg Metronidazole (Flagyl) 500 mg PO Q8 [facility]; Protocol Last Admin: 08/11/18 05:28 Dose: 500 mg Nitroglycerin (Nitro-Bid 2% Oint) 1 ea TOP Q6H [facility] Last Admin: 08/11/18 05:30 Dose: 1 ea Nystatin (Nystatin Oral Susp) 5 ml PO QID [facility] Last Admin: 08/10/18 21:52 Dose: 5 ml Oxycodone HCl (Oxycodone Immediate Release Tab) 5 mg PO Q6 PRN PRN Reason: Pain, moderate (4-7) Last Admin: 08/11/18 07:19 Dose: 5 mg Rosuvastatin Calcium (Crestor) 10 mg PO HS [facility] Last Admin: 08/10/18 21:53 Dose: 10 mg Saccharomyces Boulardii (Florastor) 250 mg PO BID [facility] Last Admin: 08/10/18 18:11 Dose: 250 mg - Labs Labs: 08/11/18 06:30 08/11/18 06:30 PT 17.9 SECONDS (9.7-12.2) H 08/05/18 06:18 INR 1.6 08/05/18 06:18 APTT 67 SECONDS (21-34) H D 08/10/18 06:02 - Constitutional Appears: No Acute Distress - Eye Exam Eye Exam: EOMI, Normal appearance - ENT Exam ENT Exam: Mucous Membranes Moist - Respiratory Exam Respiratory Exam: Wheezes, NORMAL BREATHING PATTERN. absent: Respiratory Distress - Cardiovascular Exam Cardiovascular Exam: REGULAR RHYTHM, +S1, +S2 - GI/Abdominal Exam GI & Abdominal Exam: Soft, Normal Bowel Sounds. absent: Tenderness - Extremities Exam Extremities Exam: Normal Inspection. absent: Pedal Edema - Back Exam Back Exam: absent: CVA tenderness (L), CVA tenderness (R) - Neurological Exam Neurological Exam: Alert, Awake, Oriented x3 - Psychiatric Exam Psychiatric exam: Normal Affect - Skin Additional comments: hematoma above left eye; hematoma left and right forearm Assessment and Plan - Assessment and Plan (Free Text) Assessment: 48 year old female with a past medical history of anxiety, possible UTI, on OCP who presented to [facility] after a syncopal episode at home and found to be in atrial fibrillation and was given cardizem and morphine. Patient then went into respiratory stress with bradycardia. ACLS protocol was initiated. Patient was intubated and ICU was consulted. Labs revealed a severe metabolic lactic acidosis, acute hypoxemic respiratory failure, and leukocytosis of 39,000 with 23 % bands despite being given fluids and CTA showed diffuse bilateral PE while duplex US of the LE showed an occlusive thrombus in the left common femoral vein. Acute renal failure secondary to septic shock and hypo-perfusion - s/p Dialysis 08/10 - Becerril removed 08/11/18 - Dialysis 08/11/18 Cr 3.1 - Continue to monitor Cr to monitor for kidney function improvement NSTEMI - Dr. 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 - Medications * Asa 81mg daily * Plavix 75mg daily * Metoprolol XL 50mg po daily - f/u vasculitis workup Pneumonia - Chest CT (08/03/18): Evidence of multifocal pneumonia - Continue Cefepime 1gm q24h and Flagyl 500mg q8h B/L PE - CTA showed diffuse bilateral pulmonary emboli of B/L central and segmental pulmonary arteries, pulmonary venous congestion compatible with CHF vs left basilar atelectasis vs pulmonary infarct - D-dimer > 5250, PT/INR/PTT elevated, elevated fibrinogen products - heparin drip discontinued - Eliquis 2.5mg bid started 08/11/18 - Echo showed LVEF 50-55%, mild to moderate TR and pulmonary hypertension Afib - EKG on admission showed afib with RVR at 146bpm - Eliquis 2.5mg bid started 08/11/18 Hypocalcemia in a critically ill patient - Corrected Ca is 6.9 - 2 grams of Calcium Gluconate given - Ca is stable 8.8 - continue to monitor Case discussed with Dr. Natividad Salgado PGY-2 <Pato Henson - Last Filed: 08/12/18 08:59> Objective - Vital Signs/Intake and Output Vital Signs (last 24 hours): Temp Pulse Resp BP Pulse Ox 99 F 99 H 25 H 124/77 95 08/12/18 04:00 08/12/18 06:00 08/12/18 06:00 08/12/18 05:57 08/12/18 06:00 Intake and Output: 08/12/18 08/12/18 06:59 18:59 Intake Total 200 Output Total 500 Balance -300 - Medications Medications: Current Medications Albuterol/Ipratropium (Duoneb 3 Mg/0.5 Mg (3 Ml) Ud) 3 ml INH RQ6 [facility] Last Admin: 08/12/18 08:31 Dose: 3 ml Alprazolam (Xanax) 0.25 mg PO TID PRN PRN Reason: Anxiety Stop: 08/18/18 15:46 Last Admin: 08/12/18 00:40 Dose: 0.25 mg Aspirin (Aspirin Chewable) 81 mg PO DAILY [facility] Last Admin: 08/11/18 10:15 Dose: 81 mg Clopidogrel Bisulfate (Plavix) 75 mg PO DAILY [facility] Last Admin: 08/11/18 10:15 Dose: 75 mg Famotidine (Pepcid) 20 mg PO DAILY [facility] Last Admin: 08/11/18 10:15 Dose: 20 mg Guaifenesin (Robitussin) 100 mg PO Q4H PRN PRN Reason: Cough Last Admin: 08/12/18 04:32 Dose: 100 mg Cefepime HCl 1 gm/ Sodium (Chloride) 100 mls @ 100 mls/hr IVPB Q24H [facility]; Protocol Last Admin: 08/12/18 00:36 Dose: 100 mls/hr Lidocaine HCl (Lidocaine 2% Viscous) 5 ml PO Q3H PRN PRN Reason: Other Last Admin: 08/07/18 22:31 Dose: 5 ml Metoprolol Succinate (Toprol Xl) 50 mg PO DAILY [facility] Last Admin: 08/11/18 10:15 Dose: 50 mg Metronidazole (Flagyl) 500 mg PO Q8 [facility]; Protocol Last Admin: 08/12/18 05:28 Dose: 500 mg Nitroglycerin (Nitro-Bid 2% Oint) 1 ea TOP Q6H [facility] Last Admin: 08/12/18 05:29 Dose: 1 ea Nystatin (Nystatin Oral Susp) 5 ml PO QID [facility] Last Admin: 08/11/18 21:24 Dose: 5 ml Oxycodone HCl (Oxycodone Immediate Release Tab) 5 mg PO Q6 PRN PRN Reason: Pain, moderate (4-7) Last Admin: 08/12/18 04:32 Dose: 5 mg Rosuvastatin Calcium (Crestor) 10 mg PO HS [facility] Last Admin: 08/11/18 21:24 Dose: 10 mg Saccharomyces Boulardii (Florastor) 250 mg PO BID [facility] Last Admin: 08/11/18 17:46 Dose: 250 mg Sodium Chloride (Berwick Baby Saline 30 Ml) 0 ml MICHAEL TID [facility] Last Admin: 08/11/18 17:47 Dose: 2 spr - Labs Labs: 08/12/18 06:14 08/12/18 06:14 PT 19.8 SECONDS (9.7-12.2) H 08/12/18 06:14 INR 1.8 08/12/18 06:14 APTT 32 SECONDS (21-34) D 08/11/18 16:34 Assessment and Plan (1) Acute renal failure Status: Acute (2) Acute respiratory failure with hypoxemia Status: Acute (3) Hypocalcemia Status: Resolved (4) Metabolic acidosis Status: Resolved (5) NSTEMI (non-ST elevated myocardial infarction) Status: Acute Attending/Attestation - Attestation I have personally seen and examined this patient.: Yes I have fully participated in the care of the patient.: Yes I have reviewed all pertinent clinical information, including history, physical exam and plan: Yes Notes (Text): Patient seen and examined; I agree with the resident's note as above with the following additions/edits: 48 yo F w/ no significant pmh admitted with bilateral PE, PNA, septic shock (res olved), BRIAN requiring HD, and new NSTEMI; s/p cardiac cath showing RCA spontaneous dissection as well as occlusion of distal small vessel of posterior LV; concern for underlying medium vessel vasculitis given this finding; however, doubt any renal involvement; serologic workup for vasculitis and APL syndrome underway, will follow; ATN, now non-oliguric renal failure; last HD yesterday; stable volume and electrolyte status; will monitor labs and clinical condition closely tomorrow before deciding on need for further HD; New R flank pain, improved by the time of my encounter; already on antibiotics; f/u repeat urine culture; doubt renal vein thrombosis as patient has been on AC most of the time; Anemia with stable hgb; monitor;
--- NOTE | 2018-08-11 09:29 | CP.PCM.PN ---
Subjective - Date & Time of Evaluation Date of Evaluation: 08/11/18 Time of Evaluation: 09:15 - Subjective Subjective: Patient was with family member at bedside this morning. Yesterday underwent cardiac catherization and the reported finding was for RCA spontaneous dissection with occlusion of small vessel. Then underwent HD yesterday afternoon. The patient urine out put was 1140 and creatine decreased to 3.1 Objective - Vital Signs/Intake and Output Vital Signs (last 24 hours): Temp Pulse Resp BP Pulse Ox 99.7 F H 97 H 26 H 116/74 100 08/11/18 08:00 08/11/18 08:07 08/11/18 08:07 08/11/18 08:07 08/11/18 08:07 Intake and Output: 08/11/18 08/11/18 06:59 18:59 Intake Total 450 Output Total 550 75 Balance -100 -75 - Medications Medications: Current Medications Albuterol/Ipratropium (Duoneb 3 Mg/0.5 Mg (3 Ml) Ud) 3 ml INH RQ6 [facility] Last Admin: 08/11/18 08:47 Dose: 3 ml Aspirin (Aspirin Chewable) 81 mg PO DAILY [facility] Last Admin: 08/10/18 12:33 Dose: 81 mg Clopidogrel Bisulfate (Plavix) 75 mg PO DAILY [facility] Last Admin: 08/10/18 12:34 Dose: 75 mg Famotidine (Pepcid) 20 mg PO DAILY [facility] Last Admin: 08/10/18 12:34 Dose: 20 mg Guaifenesin (Robitussin) 100 mg PO Q4H PRN PRN Reason: Cough Last Admin: 08/10/18 12:33 Dose: 100 mg Cefepime HCl 1 gm/ Sodium (Chloride) 100 mls @ 100 mls/hr IVPB Q24H [facility]; Protocol Last Admin: 08/11/18 00:00 Dose: 100 mls/hr Lidocaine HCl (Lidocaine 2% Viscous) 5 ml PO Q3H PRN PRN Reason: Other Last Admin: 08/07/18 22:31 Dose: 5 ml Metoprolol Succinate (Toprol Xl) 50 mg PO DAILY [facility] Last Admin: 08/10/18 12:34 Dose: 50 mg Metronidazole (Flagyl) 500 mg PO Q8 [facility]; Protocol Last Admin: 08/11/18 05:28 Dose: 500 mg Nitroglycerin (Nitro-Bid 2% Oint) 1 ea TOP Q6H [facility] Last Admin: 08/11/18 05:30 Dose: 1 ea Nystatin (Nystatin Oral Susp) 5 ml PO QID [facility] Last Admin: 08/10/18 21:52 Dose: 5 ml Oxycodone HCl (Oxycodone Immediate Release Tab) 5 mg PO Q6 PRN PRN Reason: Pain, moderate (4-7) Last Admin: 08/11/18 07:19 Dose: 5 mg Rosuvastatin Calcium (Crestor) 10 mg PO HS [facility] Last Admin: 08/10/18 21:53 Dose: 10 mg Saccharomyces Boulardii (Florastor) 250 mg PO BID [facility] Last Admin: 08/10/18 18:11 Dose: 250 mg - Labs Labs: 08/11/18 06:30 08/11/18 06:30 PT 17.9 SECONDS (9.7-12.2) H 08/05/18 06:18 INR 1.6 08/05/18 06:18 APTT 67 SECONDS (21-34) H D 08/10/18 06:02 - Constitutional Appears: No Acute Distress, Unkempt, Chronically Ill - Head Exam Head Exam: NORMAL INSPECTION, NORMOCEPHALIC Additional comments: Areas of echymosis - ENT Exam ENT Exam: Mucous Membranes Moist - Neck Exam Additional comments: as mentioned before areas of echymosis on neck. No active bleeding from lines - Respiratory Exam Respiratory Exam: Clear to Ausculation Bilateral, NORMAL BREATHING PATTERN - Cardiovascular Exam Cardiovascular Exam: REGULAR RHYTHM - GI/Abdominal Exam GI & Abdominal Exam: Soft, Normal Bowel Sounds - Back Exam Additional comments: Today R flank pain - Neurological Exam Neurological Exam: Alert, Awake Neuro motor strength exam: Left Upper Extremity: 4, Right Upper Extremity: 4 - Psychiatric Exam Psychiatric exam: Depressed, Flat Affect - Skin Skin Exam: Normal Color, Warm Assessment and Plan - Assessment and Plan (Free Text) Assessment: 1. NSTEMI 08/11: According to the cath report RCA spontaneous dissection with occlusion of small distal disease. Recommend medical management. On ASA and Plavix and statin. The heparin ggt is currently off this morning 08/10: Currently no chest pain. Remains on heparin ggt. Plavix, ASA, Statin Cardiology is planning on potential cardiac catherization later today. As mentioned previously the patient was transferred back to the ICU on 08/08 after chest pain and elevated troponins. 2. Bilateral PE, DVT 08/10: Currently remains on the heparin ggt. Currently on nasal cannula and SpO2s have been stable. As mentioned in previous notes when she was first admitted she was in ICU intubated from respiratory arrest/ACLS and then extubated on 08/01 Continue IV heparin Breathing is improving. Saturating good on 2L NC CXR 08/07: venous congestion, patchy infiltrate, pleural effusion R>L CTA chest showed diffuse bilateral pulmonary emboli involving bilateral central and segmental pulmonary arteries, cardiac silhouette enlarged, there is evidence of pulmonary venous congestion compatible with CHF, left basilar atelectasis vs pulmonary infarct (official report pending) LE duplex shows left acute thrombosis of the left common femoral vein Echo showed LVEF 50-55%, mild to moderate TR and pulmonary hypertension 3.Pneumonia 08/11: Remains afebrile and cultures remain negative. WBC remains stable 08/10: Currently on IV cefpime and IV flagyl. The WBC is stable, afebrile at this moment. 4. Acute renal failure 08/11: Creatine decreased to 3.1 and urine out put 1140 08/10: Urine output recorded as 1220. Creatine was 4.5 this AM. Last HD was on Friday Getting dialysis via right perma cath Left TLC, intact with dressing dry 5. s/p Atrial Fibrillation with RVR -Initial EKG showed afib with rate of 146 bpm 6.Anxiety Xanax 0.25mg PO TID PRN 7.GI/DVT ppx: -Protonix 40mg IVP Q12H -Florastor 250 BID
[2018-08-11] MEDS: Metoprolol Succinate 50 mg XL Tab PO SCH (10:15)
[2018-08-11] MEDS: Nystatin 100,000 Units/ml Oral Susp 5 ml UD PO SCH ×4 (10:15→21:24)
[2018-08-11] MEDS: Saccharomyces Boulardi 250 mg Cap PO SCH ×2 (10:15→17:46)
[2018-08-11 10:49] LABS: SQUAMOUS EPITHIAL 3 /hpf (0-5); URINE BACTERIA OCC (<OCC); URINE BILIRUBIN NEGATIVE (NEGATIVE); URINE BLOOD 2+ (NEGATIVE); URINE CLARITY Hazy (Clear); URINE COLOR Yellow (YELLOW); URINE GLUCOSE (UA) NORMAL (Normal); URINE LEUKOCYTE ESTERASE 3+ Leu/uL (Negative); URINE PROTEIN 2+ mg/dL (NEGATIVE); URINE UROBILINOGEN NORMAL mg/dL (0.2-1.0)
--- NOTE | 2018-08-11 10:54 | CP.CCUPN ---
<Corrie Chowdary L - Last Filed: 08/11/18 16:23> CCU Subjective - Physician Review Subjective (Free Text): Resident Critical Care Progress Note Patient examined at bedside. Patient was resting comfortably in chair in no acute distress, saturating well on nasal cannula. Critical Care Time Spent (in minutes): 35 CCU Objective - Vital Signs / Intake & Output Vital Signs (Last 4 hours): Vital Signs Temp Pulse Resp BP Pulse Ox 08/11/18 10:07 98 H 30 H 117/74 100 08/11/18 10:00 99 H 24 99 08/11/18 09:07 104 H 23 104/61 100 08/11/18 09:00 109 H 24 100 08/11/18 08:07 97 H 26 H 116/74 100 08/11/18 08:00 99.7 F H 95 H 28 H 100 08/11/18 07:07 97 H 26 H 116/71 08/11/18 07:00 97 H 21 99 Intake and Output (Last 8hrs): Intake & Output 08/10/18 08/11/18 08/11/18 22:59 06:59 14:59 Intake Total 425 150 200 Output Total 2260 405 155 Balance -1835 -255 45 Intake: Intake, IV Amount 0 100 Left Distal Port Internal 0 0 Jugular Left Medial Port Internal 0 100 Jugular Left Proximal Port 0 0 Internal Jugular Oral 425 50 200 Output: Urine 260 305 155 Urethral (Becerril) 260 305 155 Stool 100 Other 2000 Other: # Bowel Movements 0 1 - Physical Exam Head: Positive for: Atraumatic, Normocephalic Pupils: Positive for: PERRL Extroacular Muscles: Positive for: EOMI Conjunctiva: Positive for: Normal Mouth: Positive for: Moist Mucous Membranes Neck: Positive for: Normal Range of Motion, Trachea Midline Respiratory/Chest: Positive for: Good Air Exchange, Decreased Breath Sounds. Negative for: Respiratory Distress Cardiovascular: Positive for: Regular Rate and Rhythm, Normal S1, S2 Abdomen: Negative for: Tenderness, Distention Upper Extremity: Positive for: Normal Inspection. Negative for: Cyanosis Lower Extremity: Positive for: Edema. Negative for: CALF TENDERNESS, Temperature Abnormalties Neurological: Positive for: GCS=15, CN II-XII Intact, Speech Normal Skin: Positive for: Warm, Dry, Normal Color Psychiatric: Positive for: Alert, Oriented x 3, Normal Insight, Anxious - Medications Active Medications: Active Medications Generic Name Dose Route Start Last Admin Trade Name Freq PRN Reason Stop Dose Admin Albuterol/Ipratropium 3 ml 07/31/18 20:00 08/11/18 08:47 Duoneb 3 Mg/0.5 Mg (3 Ml) Ud INH 3 ml RQ6 KACY Administration Aspirin 81 mg 08/08/18 10:00 08/11/18 10:15 Aspirin Chewable PO 81 mg DAILY KACY Administration Clopidogrel Bisulfate 75 mg 08/08/18 10:00 08/11/18 10:15 Plavix PO 75 mg DAILY KAYC Administration Famotidine 20 mg 08/08/18 10:00 08/11/18 10:15 Pepcid PO 20 mg DAILY KACY Administration Guaifenesin 100 mg 08/10/18 11:22 08/10/18 12:33 Robitussin PO 100 mg Q4H PRN Administration Cough Cefepime HCl 1 gm/ Sodium 100 mls @ 100 mls/hr 08/05/18 01:00 08/11/18 00:00 Chloride IVPB 100 mls/hr Q24H KACY Administration Protocol Lidocaine HCl 5 ml 08/07/18 13:19 08/07/18 22:31 Lidocaine 2% Viscous PO 5 ml Q3H PRN Administration Other Metoprolol Succinate 50 mg 08/08/18 15:00 08/11/18 10:15 Toprol Xl PO 50 mg DAILY KACY Administration Metronidazole 500 mg 07/31/18 14:00 08/11/18 05:28 Flagyl PO 500 mg Q8 KACY Administration Protocol Nitroglycerin 1 ea 08/10/18 12:30 08/11/18 05:30 Nitro-Bid 2% Oint TOP 1 ea Q6H KACY Administration Nystatin 5 ml 08/07/18 14:00 08/11/18 10:15 Nystatin Oral Susp PO 5 ml QID KACY Administration Oxycodone HCl 5 mg 08/07/18 16:11 08/11/18 07:19 Oxycodone Immediate Release Tab PO 5 mg Q6 PRN Administration Pain, moderate (4-7) Rosuvastatin Calcium 10 mg 08/10/18 22:00 08/10/18 21:53 Crestor PO 10 mg HS KACY Administration Saccharomyces Boulardii 250 mg 08/05/18 10:00 08/11/18 10:15 Florastor PO 250 mg BID KACY Administration Sodium Chloride 0 ml 08/11/18 10:00 [place] Baby Saline 30 Ml MICHAEL TID KACY - Patient Studies Lab Studies: Lab Studies 08/11/18 08/11/18 08/11/18 Range/Units 10:31 06:30 06:30 WBC 9.3 (4.8-10.8) K/uL RBC 2.95 L (3.80-5.20) Mil/uL Hgb 8.3 L (11.0-16.0) g/dL Hct 24.3 L (34.0-47.0) % MCV 82.4 (81.0-99.0) fL MCH 28.0 (27.0-31.0) pg MCHC 34.0 (33.0-37.0) g/dL RDW 18.1 H (11.5-14.5) % Plt Count 145 (130-400) K/uL MPV 10.6 (7.2-11.7) fL Neut % (Auto) 77.0 H (50.0-75.0) % Lymph % (Auto) 10.2 L (20.0-40.0) % [place] % (Auto) 11.4 H (0.0-10.0) % Eos % (Auto) 0.3 (0.0-4.0) % Baso % (Auto) 1.1 (0.0-2.0) % Neut # (Auto) 7.1 H (1.8-7.0) K/uL Lymph # (Auto) 0.9 L (1.0-4.3) K/uL [place] # (Auto) 1.1 H (0.0-0.8) K/uL Eos # (Auto) 0.0 (0.0-0.7) K/uL Baso # (Auto) 0.1 (0.0-0.2) K/uL Sodium 141 (132-148) mmol/L Potassium 4.0 (3.6-5.2) mmol/L Chloride 109 H (98-107) mmol/L Carbon Dioxide 23 (22-30) mmol/L Anion Gap 13 (10-20) BUN 25 H (7-17) mg/dL Creatinine 3.1 H (0.7-1.2) mg/dL Est GFR ( Amer) 20 Est GFR (Non-Af Amer) 16 Random Glucose 99 (65-105) mg/dL Calcium 8.4 L (8.6-10.4) mg/dl Phosphorus 3.3 (2.5-4.5) mg/dL Total Bilirubin 0.8 (0.2-1.3) mg/dL AST 41 H D (14-36) U/L ALT 37 (9-52) U/L Alkaline Phosphatase 71 (38-126) U/L Total Protein 6.0 L (6.3-8.3) g/dL Albumin 3.0 L (3.5-5.0) g/dL Globulin 3.0 (2.2-3.9) gm/dL Albumin/Globulin Ratio 1.0 (1.0-2.1) Urine Color Yellow (YELLOW) Urine Clarity Hazy (Clear) Urine pH 6.0 (5.0-8.0) Ur Specific [place] 1.015 (1.003-1.030) Urine Protein 2+ H (NEGATIVE) mg/dL Urine Glucose (UA) Normal (Normal) mg/dL Urine Ketones Negative (NEGATIVE) mg/dL Urine Blood 2+ H (NEGATIVE) Urine Nitrate Negative (NEGATIVE) Urine Bilirubin Negative (NEGATIVE) Urine Urobilinogen Normal (0.2-1.0) mg/dL Ur Leukocyte Esterase 3+ H (Negative) Jessica/uL Urine WBC (Auto) 81 H (0-5) /hpf Urine RBC (Auto) 45 H (0-3) /hpf Ur Squamous Epith Cells 3 (0-5) /hpf Urine Bacteria Occ H (<OCC) Urine Yeast (Budding) Many H (NEGATIVE) /hpf U Random Total Protein (21-161) mg/g creat [place] 6 Profile (NEGATIVE) Proteinase 3 (PR3) (<1.0) AI Myeloperoxidase Ab (<1.0) AI 08/10/18 08/08/18 08/07/18 Range/Units 08:30 18:14 10:37 WBC (4.8-10.8) K/uL RBC (3.80-5.20) Mil/uL Hgb (11.0-16.0) g/dL Hct (34.0-47.0) % MCV (81.0-99.0) fL MCH (27.0-31.0) pg MCHC (33.0-37.0) g/dL RDW (11.5-14.5) % Plt Count (130-400) K/uL MPV (7.2-11.7) fL Neut % (Auto) (50.0-75.0) % Lymph % (Auto) (20.0-40.0) % [place] % (Auto) (0.0-10.0) % Eos % (Auto) (0.0-4.0) % Baso % (Auto) (0.0-2.0) % Neut # (Auto) (1.8-7.0) K/uL Lymph # (Auto) (1.0-4.3) K/uL [place] # (Auto) (0.0-0.8) K/uL Eos # (Auto) (0.0-0.7) K/uL Baso # (Auto) (0.0-0.2) K/uL Sodium (132-148) mmol/L Potassium (3.6-5.2) mmol/L Chloride (98-107) mmol/L Carbon Dioxide (22-30) mmol/L Anion Gap (10-20) BUN (7-17) mg/dL Creatinine (0.7-1.2) mg/dL Est GFR ( Amer) Est GFR (Non-Af Amer) Random Glucose (65-105) mg/dL Calcium (8.6-10.4) mg/dl Phosphorus (2.5-4.5) mg/dL Total Bilirubin (0.2-1.3) mg/dL AST (14-36) U/L ALT (9-52) U/L Alkaline Phosphatase (38-126) U/L Total Protein (6.3-8.3) g/dL Albumin (3.5-5.0) g/dL Globulin (2.2-3.9) gm/dL Albumin/Globulin Ratio (1.0-2.1) Urine Color (YELLOW) Urine Clarity (Clear) Urine pH (5.0-8.0) Ur Specific [place] (1.003-1.030) Urine Protein (NEGATIVE) mg/dL Urine Glucose (UA) (Normal) mg/dL Urine Ketones (NEGATIVE) mg/dL Urine Blood (NEGATIVE) Urine Nitrate (NEGATIVE) Urine Bilirubin (NEGATIVE) Urine Urobilinogen (0.2-1.0) mg/dL Ur Leukocyte Esterase (Negative) Jessica/uL Urine WBC (Auto) (0-5) /hpf Urine RBC (Auto) (0-3) /hpf Ur Squamous Epith Cells (0-5) /hpf Urine Bacteria (<OCC) Urine Yeast (Budding) (NEGATIVE) /hpf U Random Total Protein 2640 H (21-161) mg/g creat [place] 6 Profile Negative (NEGATIVE) Proteinase 3 (PR3) <1.0 (<1.0) AI Myeloperoxidase Ab <1.0 (<1.0) AI Laboratory Results - last 24 hr 08/07/18 08/08/18 08/10/18 10:37 18:14 08:30 WBC RBC Hgb Hct MCV MCH MCHC RDW Plt Count MPV Neut % (Auto) Lymph % (Auto) [place] % (Auto) Eos % (Auto) Baso % (Auto) Neut # (Auto) Lymph # (Auto) [place] # (Auto) Eos # (Auto) Baso # (Auto) Sodium Potassium Chloride Carbon Dioxide Anion Gap BUN Creatinine Est GFR ( Amer) Est GFR (Non-Af Amer) Random Glucose Calcium Phosphorus Total Bilirubin AST ALT Alkaline Phosphatase Total Protein Albumin Globulin Albumin/Globulin Ratio Urine Color Urine Clarity Urine pH Ur Specific [place] Urine Protein Urine Glucose (UA) Urine Ketones Urine Blood Urine Nitrate Urine Bilirubin Urine Urobilinogen Ur Leukocyte Esterase Urine WBC (Auto) Urine RBC (Auto) Ur Squamous Epith Cells Urine Bacteria Urine Yeast (Budding) U Random Total Protein 2640 H [place] 6 Profile Negative Proteinase 3 (PR3) <1.0 Myeloperoxidase Ab <1.0 08/11/18 08/11/18 08/11/18 06:30 06:30 10:31 WBC 9.3 RBC 2.95 L Hgb 8.3 L Hct 24.3 L MCV 82.4 MCH 28.0 MCHC 34.0 RDW 18.1 H Plt Count 145 MPV 10.6 Neut % (Auto) 77.0 H Lymph % (Auto) 10.2 L [place] % (Auto) 11.4 H Eos % (Auto) 0.3 Baso % (Auto) 1.1 Neut # (Auto) 7.1 H Lymph # (Auto) 0.9 L [place] # (Auto) 1.1 H Eos # (Auto) 0.0 Baso # (Auto) 0.1 Sodium 141 Potassium 4.0 Chloride 109 H Carbon Dioxide 23 Anion Gap 13 BUN 25 H Creatinine 3.1 H Est GFR ( Amer) 20 Est GFR (Non-Af Amer) 16 Random Glucose 99 Calcium 8.4 L Phosphorus 3.3 Total Bilirubin 0.8 AST 41 H D ALT 37 Alkaline Phosphatase 71 Total Protein 6.0 L Albumin 3.0 L Globulin 3.0 Albumin/Globulin Ratio 1.0 Urine Color Yellow Urine Clarity Hazy Urine pH 6.0 Ur Specific [place] 1.015 Urine Protein 2+ H Urine Glucose (UA) Normal Urine Ketones Negative Urine Blood 2+ H Urine Nitrate Negative Urine Bilirubin Negative Urine Urobilinogen Normal Ur Leukocyte Esterase 3+ H Urine WBC (Auto) 81 H Urine RBC (Auto) 45 H Ur Squamous Epith Cells 3 Urine Bacteria Occ H Urine Yeast (Budding) Many H U Random Total Protein [place] 6 Profile Proteinase 3 (PR3) Myeloperoxidase Ab Fingerstick Blood Sugar Results: 288 Review of Systems - Review of Systems All systems: reviewed and no additional remarkable complaints except (as stated in HPI) Critical Care Progress Note - Nutrition Nutrition: Nutrition Category Date Time Status Dysphagia/Modified Consistency Diet [DIET] Diets 08/10/18 Lunch Active Assessment/Plan - Assessment and Plan (Free Text) Assessment: This is a 48 yo F with PMH of anxiety, bariatric surgery, and recent hx spetic shock, bilateral PE, resp failure requiring intubation (extubated 08/01/18), and cardiac arrest who returns to the ICU due to reported chest pain and increasing trops despite heparin drip. Pending vasculitis and Lupus anticoagulant workup, s/p cardiac cath today. Plan: Neuro: - Awake and alert, following commands - maintain normothermia Pulm: - satting well on nasal canula - continue duonebs 3 ml INH RQ6 - chest PT, incentive spirometry CV: - transitioned from heparin drip to coumadin 2.5 mg PO - Cardio following, appreciate all recs - continue Metoprolol 50mg daily, statin - s/p cardiac cath, showed spontaneous coronary dissection of RCA, EF 45% - per Dr. Ba medical management at this time GI: - Transaminitis resolving - Pepcid for GI ppx Renal: - BRIAN - Nephro following, appreciate all recs; avoid oral AC in case of need for HD tunnel cath placement Endo: - maintain euglycemia with blood sugars 140-180 Heme: - heparin drip low dose for cardiac - No need for IVC filter, patient's bleeding risk has decreased - worsening trops despite therapeutic anticoagulation, so vasculitis workup and lupus anticoagulant ordered, pending - Heme/onc consulted. Appreciate recs. - Rheum consulted, appreciate all recs. ID: - Flagyl 500 mg Q8H, Cefepime 1 gm Q12H for enterocolitis - Afebrile, off steroids - 07/29 sputum culture positive for yeast, otherwise all cultures negative Dispo: readmitted to ICU due to chest pain and worsening trops while on AC Consults: Cardio, Neuro, Nephro, Rheum, Heme-onc, ID Ppx: Protonix, warfarin, SCDs contraindicated d/t DVT Code Status: unknown, so defaults to FULL Patient seen, reviewed, and discussed with attending, Dr. Sunday Chowdary PGY-1 - Date & Time Date: 08/11/18 Time: 08:00 <Jm Brand - Last Filed: 08/11/18 17:45> CCU Objective - Vital Signs / Intake & Output Vital Signs (Last 4 hours): Vital Signs Temp Pulse Resp BP Pulse Ox 08/11/18 17:23 98 H 28 H 120/76 100 08/11/18 17:00 98 H 30 H 97 08/11/18 16:23 100 H 30 H 122/95 H 100 08/11/18 16:00 99.9 F H 107 H 20 96 08/11/18 15:23 102 H 19 120/70 100 08/11/18 15:00 100 H 19 119/74 99 08/11/18 14:23 104 H 23 119/74 99 08/11/18 14:00 101 H 25 H 99 Intake and Output (Last 8hrs): Intake & Output 08/11/18 08/11/18 08/11/18 06:59 14:59 22:59 Intake Total 150 350 Output Total 405 190 150 Balance -255 160 -150 Intake: Intake, IV Amount 100 Left Distal Port Internal 0 Jugular Left Medial Port Internal 100 Jugular Left Proximal Port 0 Internal Jugular Oral 50 350 Output: Urine 305 190 150 Urethral (Becerril) 305 190 Urine, Voided 0 150 Stool 100 Other: # Bowel Movements 1 1 - Medications Active Medications: Active Medications Generic Name Dose Route Start Last Admin Trade Name Freq PRN Reason Stop Dose Admin Albuterol/Ipratropium 3 ml 07/31/18 20:00 08/11/18 14:18 Duoneb 3 Mg/0.5 Mg (3 Ml) Ud INH 3 ml RQ6 KACY Administration Alprazolam 0.25 mg 08/11/18 15:45 Xanax PO 08/18/18 15:46 TID PRN Anxiety Aspirin 81 mg 08/08/18 10:00 08/11/18 10:15 Aspirin Chewable PO 81 mg DAILY KACY Administration Clopidogrel Bisulfate 75 mg 08/08/18 10:00 08/11/18 10:15 Plavix PO 75 mg DAILY KACY Administration Famotidine 20 mg 08/08/18 10:00 08/11/18 10:15 Pepcid PO 20 mg DAILY KACY Administration Guaifenesin 100 mg 08/10/18 11:22 08/11/18 13:18 Robitussin PO 100 mg Q4H PRN Administration Cough Cefepime HCl 1 gm/ Sodium 100 mls @ 100 mls/hr 08/05/18 01:00 08/11/18 00:00 Chloride IVPB 100 mls/hr Q24H KACY Administration Protocol Lidocaine HCl 5 ml 08/07/18 13:19 08/07/18 22:31 Lidocaine 2% Viscous PO 5 ml Q3H PRN Administration Other Metoprolol Succinate 50 mg 08/08/18 15:00 08/11/18 10:15 Toprol Xl PO 50 mg DAILY KACY Administration Metronidazole 500 mg 07/31/18 14:00 08/11/18 13:15 Flagyl PO 500 mg Q8 KACY Administration Protocol Nitroglycerin 1 ea 08/10/18 12:30 08/11/18 13:15 Nitro-Bid 2% Oint TOP 1 ea Q6H KACY Administration Nystatin 5 ml 08/07/18 14:00 08/11/18 13:18 Nystatin Oral Susp PO 5 ml QID KACY Administration Oxycodone HCl 5 mg 08/07/18 16:11 08/11/18 07:19 Oxycodone Immediate Release Tab PO 5 mg Q6 PRN Administration Pain, moderate (4-7) Rosuvastatin Calcium 10 mg 08/10/18 22:00 08/10/18 21:53 Crestor PO 10 mg HS KACY Administration Saccharomyces Boulardii 250 mg 08/05/18 10:00 08/11/18 10:15 Florastor PO 250 mg BID KACY Administration Sodium Chloride 0 ml 08/11/18 10:00 08/11/18 13:19 [place] Baby Saline 30 Ml MICHAEL 2 spr TID KACY Administration Warfarin Sodium 2.5 mg 08/11/18 18:00 Coumadin PO 08/11/18 18:01 ONCE ONE - Patient Studies Lab Studies: Lab Studies 08/11/18 08/11/18 08/11/18 Range/Units 16:34 10:31 06:30 WBC (4.8-10.8) K/uL RBC (3.80-5.20) Mil/uL Hgb (11.0-16.0) g/dL Hct (34.0-47.0) % MCV (81.0-99.0) fL MCH (27.0-31.0) pg MCHC (33.0-37.0) g/dL RDW (11.5-14.5) % Plt Count (130-400) K/uL MPV (7.2-11.7) fL Neut % (Auto) (50.0-75.0) % Lymph % (Auto) (20.0-40.0) % [place] % (Auto) (0.0-10.0) % Eos % (Auto) (0.0-4.0) % Baso % (Auto) (0.0-2.0) % Neut # (Auto) (1.8-7.0) K/uL Lymph # (Auto) (1.0-4.3) K/uL [place] # (Auto) (0.0-0.8) K/uL Eos # (Auto) (0.0-0.7) K/uL Baso # (Auto) (0.0-0.2) K/uL PT 21.8 H (9.7-12.2) SECONDS INR 2.0 APTT 32 D (21-34) SECONDS Sodium 141 (132-148) mmol/L Potassium 4.0 (3.6-5.2) mmol/L Chloride 109 H (98-107) mmol/L Carbon Dioxide 23 (22-30) mmol/L Anion Gap 13 (10-20) BUN 25 H (7-17) mg/dL Creatinine 3.1 H (0.7-1.2) mg/dL Est GFR ( Amer) 20 Est GFR (Non-Af Amer) 16 Random Glucose 99 (65-105) mg/dL Calcium 8.4 L (8.6-10.4) mg/dl Phosphorus 3.3 (2.5-4.5) mg/dL Total Bilirubin 0.8 (0.2-1.3) mg/dL AST 41 H D (14-36) U/L ALT 37 (9-52) U/L Alkaline Phosphatase 71 (38-126) U/L Total Protein 6.0 L (6.3-8.3) g/dL Albumin 3.0 L (3.5-5.0) g/dL Globulin 3.0 (2.2-3.9) gm/dL Albumin/Globulin Ratio 1.0 (1.0-2.1) Urine Color Yellow (YELLOW) Urine Clarity Hazy (Clear) Urine pH 6.0 (5.0-8.0) Ur Specific [place] 1.015 (1.003-1.030) Urine Protein 2+ H (NEGATIVE) mg/dL Urine Glucose (UA) Normal (Normal) mg/dL Urine Ketones Negative (NEGATIVE) mg/dL Urine Blood 2+ H (NEGATIVE) Urine Nitrate Negative (NEGATIVE) Urine Bilirubin Negative (NEGATIVE) Urine Urobilinogen Normal (0.2-1.0) mg/dL Ur Leukocyte Esterase 3+ H (Negative) Jessica/uL Urine WBC (Auto) 81 H (0-5) /hpf Urine RBC (Auto) 45 H (0-3) /hpf Ur Squamous Epith Cells 3 (0-5) /hpf Urine Bacteria Occ H (<OCC) Urine Yeast (Budding) Many H (NEGATIVE) /hpf U Random Total Protein (21-161) mg/g creat Urine Creatinine g/L Ur Creatinine 24 Hour (0.63-2.50) g/24 h Ur Microalbumin mg/dl mg/dL Ur Microalbumin mcg/min (<20) mcg/min Ur Microalbumin 24 Hr (<30) mg/24 h U Creat (Microalbumin) g/L Microalb/Creat Ratio 24 Ur Total Protein 24 Hr (<150) mg/24 h Protein/Creat Ratio 24h (</=84) mg/g creat Urine Total Protein (50-240) mg/L ANCA Screen (NEGATIVE) c-ANCA Titer p-ANCA Titer Atypical p-ANCA Titer RN TELEPHONE TRIAGE Antibody (<1.0) AI RN TELEPHONE TRIAGE Antibody Interp (Negative) 08/11/18 08/10/18 08/10/18 Range/Units 06:30 08:30 08:00 WBC 9.3 (4.8-10.8) K/uL RBC 2.95 L (3.80-5.20) Mil/uL Hgb 8.3 L (11.0-16.0) g/dL Hct 24.3 L (34.0-47.0) % MCV 82.4 (81.0-99.0) fL MCH 28.0 (27.0-31.0) pg MCHC 34.0 (33.0-37.0) g/dL RDW 18.1 H (11.5-14.5) % Plt Count 145 (130-400) K/uL MPV 10.6 (7.2-11.7) fL Neut % (Auto) 77.0 H (50.0-75.0) % Lymph % (Auto) 10.2 L (20.0-40.0) % [place] % (Auto) 11.4 H (0.0-10.0) % Eos % (Auto) 0.3 (0.0-4.0) % Baso % (Auto) 1.1 (0.0-2.0) % Neut # (Auto) 7.1 H (1.8-7.0) K/uL Lymph # (Auto) 0.9 L (1.0-4.3) K/uL [place] # (Auto) 1.1 H (0.0-0.8) K/uL Eos # (Auto) 0.0 (0.0-0.7) K/uL Baso # (Auto) 0.1 (0.0-0.2) K/uL PT (9.7-12.2) SECONDS INR APTT (21-34) SECONDS Sodium (132-148) mmol/L Potassium (3.6-5.2) mmol/L Chloride (98-107) mmol/L Carbon Dioxide (22-30) mmol/L Anion Gap (10-20) BUN (7-17) mg/dL Creatinine (0.7-1.2) mg/dL Est GFR ( Amer) Est GFR (Non-Af Amer) Random Glucose (65-105) mg/dL Calcium (8.6-10.4) mg/dl Phosphorus (2.5-4.5) mg/dL Total Bilirubin (0.2-1.3) mg/dL AST (14-36) U/L ALT (9-52) U/L Alkaline Phosphatase (38-126) U/L Total Protein (6.3-8.3) g/dL Albumin (3.5-5.0) g/dL Globulin (2.2-3.9) gm/dL Albumin/Globulin Ratio (1.0-2.1) Urine Color (YELLOW) Urine Clarity (Clear) Urine pH (5.0-8.0) Ur Specific [place] (1.003-1.030) Urine Protein (NEGATIVE) mg/dL Urine Glucose (UA) (Normal) mg/dL Urine Ketones (NEGATIVE) mg/dL Urine Blood (NEGATIVE) Urine Nitrate (NEGATIVE) Urine Bilirubin (NEGATIVE) Urine Urobilinogen (0.2-1.0) mg/dL Ur Leukocyte Esterase (Negative) Jessica/uL Urine WBC (Auto) (0-5) /hpf Urine RBC (Auto) (0-3) /hpf Ur Squamous Epith Cells (0-5) /hpf Urine Bacteria (<OCC) Urine Yeast (Budding) (NEGATIVE) /hpf U Random Total Protein (21-161) mg/g creat Urine Creatinine 0.74 g/L Ur Creatinine 24 Hour 0.75 (0.63-2.50) g/24 h Ur Microalbumin mg/dl mg/dL Ur Microalbumin mcg/min (<20) mcg/min Ur Microalbumin 24 Hr (<30) mg/24 h U Creat (Microalbumin) g/L Microalb/Creat Ratio 24 Ur Total Protein 24 Hr 1632 H (<150) mg/24 h Protein/Creat Ratio 24h 2162 H (</=84) mg/g creat Urine Total Protein 1600 H (50-240) mg/L ANCA Screen (NEGATIVE) c-ANCA Titer p-ANCA Titer Atypical p-ANCA Titer RN TELEPHONE TRIAGE Antibody <1.0 (<1.0) AI RN TELEPHONE TRIAGE Antibody Interp Negative (Negative) 08/10/18 08/08/18 08/07/18 Range/Units 07:34 18:14 10:37 WBC (4.8-10.8) K/uL RBC (3.80-5.20) Mil/uL Hgb (11.0-16.0) g/dL Hct (34.0-47.0) % MCV (81.0-99.0) fL MCH (27.0-31.0) pg MCHC (33.0-37.0) g/dL RDW (11.5-14.5) % Plt Count (130-400) K/uL MPV (7.2-11.7) fL Neut % (Auto) (50.0-75.0) % Lymph % (Auto) (20.0-40.0) % [place] % (Auto) (0.0-10.0) % Eos % (Auto) (0.0-4.0) % Baso % (Auto) (0.0-2.0) % Neut # (Auto) (1.8-7.0) K/uL Lymph # (Auto) (1.0-4.3) K/uL [place] # (Auto) (0.0-0.8) K/uL Eos # (Auto) (0.0-0.7) K/uL Baso # (Auto) (0.0-0.2) K/uL PT (9.7-12.2) SECONDS INR APTT (21-34) SECONDS Sodium (132-148) mmol/L Potassium (3.6-5.2) mmol/L Chloride (98-107) mmol/L Carbon Dioxide (22-30) mmol/L Anion Gap (10-20) BUN (7-17) mg/dL Creatinine (0.7-1.2) mg/dL Est GFR ( Amer) Est GFR (Non-Af Amer) Random Glucose (65-105) mg/dL Calcium (8.6-10.4) mg/dl Phosphorus (2.5-4.5) mg/dL Total Bilirubin (0.2-1.3) mg/dL AST (14-36) U/L ALT (9-52) U/L Alkaline Phosphatase (38-126) U/L Total Protein (6.3-8.3) g/dL Albumin (3.5-5.0) g/dL Globulin (2.2-3.9) gm/dL Albumin/Globulin Ratio (1.0-2.1) Urine Color (YELLOW) Urine Clarity (Clear) Urine pH (5.0-8.0) Ur Specific [place] (1.003-1.030) Urine Protein (NEGATIVE) mg/dL Urine Glucose (UA) (Normal) mg/dL Urine Ketones (NEGATIVE) mg/dL Urine Blood (NEGATIVE) Urine Nitrate (NEGATIVE) Urine Bilirubin (NEGATIVE) Urine Urobilinogen (0.2-1.0) mg/dL Ur Leukocyte Esterase (Negative) Jessica/uL Urine WBC (Auto) (0-5) /hpf Urine RBC (Auto) (0-3) /hpf Ur Squamous Epith Cells (0-5) /hpf Urine Bacteria (<OCC) Urine Yeast (Budding) (NEGATIVE) /hpf U Random Total Protein 2640 H (21-161) mg/g creat Urine Creatinine g/L Ur Creatinine 24 Hour 0.75 (0.63-2.50) g/24 h Ur Microalbumin mg/dl 17.3 mg/dL Ur Microalbumin mcg/min 122 H (<20) mcg/min Ur Microalbumin 24 Hr 176 H (<30) mg/24 h U Creat (Microalbumin) 0.73 g/L Microalb/Creat Ratio 24 235 Ur Total Protein 24 Hr (<150) mg/24 h Protein/Creat Ratio 24h (</=84) mg/g creat Urine Total Protein (50-240) mg/L ANCA Screen Negative (NEGATIVE) c-ANCA Titer TNP p-ANCA Titer TNP Atypical p-ANCA Titer TNP RN TELEPHONE TRIAGE Antibody (<1.0) AI RN TELEPHONE TRIAGE Antibody Interp (Negative) Laboratory Results - last 24 hr 08/07/18 08/08/18 08/10/18 10:37 18:14 07:34 WBC RBC Hgb Hct MCV MCH MCHC RDW Plt Count MPV Neut % (Auto) Lymph % (Auto) [place] % (Auto) Eos % (Auto) Baso % (Auto) Neut # (Auto) Lymph # (Auto) [place] # (Auto) Eos # (Auto) Baso # (Auto) PT INR APTT Sodium Potassium Chloride Carbon Dioxide Anion Gap BUN Creatinine Est GFR ( Amer) Est GFR (Non-Af Amer) Random Glucose Calcium Phosphorus Total Bilirubin AST ALT Alkaline Phosphatase Total Protein Albumin Globulin Albumin/Globulin Ratio Urine Color Urine Clarity Urine pH Ur Specific [place] Urine Protein Urine Glucose (UA) Urine Ketones Urine Blood Urine Nitrate Urine Bilirubin Urine Urobilinogen Ur Leukocyte Esterase Urine WBC (Auto) Urine RBC (Auto) Ur Squamous Epith Cells Urine Bacteria Urine Yeast (Budding) U Random Total Protein 2640 H Urine Creatinine Ur Creatinine 24 Hour 0.75 Ur Microalbumin mg/dl 17.3 Ur Microalbumin mcg/min 122 H Ur Microalbumin 24 Hr 176 H U Creat (Microalbumin) 0.73 Microalb/Creat Ratio 24 235 Ur Total Protein 24 Hr Protein/Creat Ratio 24h Urine Total Protein ANCA Screen Negative c-ANCA Titer TNP p-ANCA Titer TNP Atypical p-ANCA Titer TNP RN TELEPHONE TRIAGE Antibody RN TELEPHONE TRIAGE Antibody Interp 08/10/18 08/10/18 08/11/18 08:00 08:30 06:30 WBC 9.3 RBC 2.95 L Hgb 8.3 L Hct 24.3 L MCV 82.4 MCH 28.0 MCHC 34.0 RDW 18.1 H Plt Count 145 MPV 10.6 Neut % (Auto) 77.0 H Lymph % (Auto) 10.2 L [place] % (Auto) 11.4 H Eos % (Auto) 0.3 Baso % (Auto) 1.1 Neut # (Auto) 7.1 H Lymph # (Auto) 0.9 L [place] # (Auto) 1.1 H Eos # (Auto) 0.0 Baso # (Auto) 0.1 PT INR APTT Sodium Potassium Chloride Carbon Dioxide Anion Gap BUN Creatinine Est GFR ( Amer) Est GFR (Non-Af Amer) Random Glucose Calcium Phosphorus Total Bilirubin AST ALT Alkaline Phosphatase Total Protein Albumin Globulin Albumin/Globulin Ratio Urine Color Urine Clarity Urine pH Ur Specific [place] Urine Protein Urine Glucose (UA) Urine Ketones Urine Blood Urine Nitrate Urine Bilirubin Urine Urobilinogen Ur Leukocyte Esterase Urine WBC (Auto) Urine RBC (Auto) Ur Squamous Epith Cells Urine Bacteria Urine Yeast (Budding) U Random Total Protein Urine Creatinine 0.74 Ur Creatinine 24 Hour 0.75 Ur Microalbumin mg/dl Ur Microalbumin mcg/min Ur Microalbumin 24 Hr U Creat (Microalbumin) Microalb/Creat Ratio 24 Ur Total Protein 24 Hr 1632 H Protein/Creat Ratio 24h 2162 H Urine Total Protein 1600 H ANCA Screen c-ANCA Titer p-ANCA Titer Atypical p-ANCA Titer RN TELEPHONE TRIAGE Antibody <1.0 RN TELEPHONE TRIAGE Antibody Interp Negative 08/11/18 08/11/18 08/11/18 06:30 10:31 16:34 WBC RBC Hgb Hct MCV MCH MCHC RDW Plt Count MPV Neut % (Auto) Lymph % (Auto) [place] % (Auto) Eos % (Auto) Baso % (Auto) Neut # (Auto) Lymph # (Auto) [place] # (Auto) Eos # (Auto) Baso # (Auto) PT 21.8 H INR 2.0 APTT 32 D Sodium 141 Potassium 4.0 Chloride 109 H Carbon Dioxide 23 Anion Gap 13 BUN 25 H Creatinine 3.1 H Est GFR ( Amer) 20 Est GFR (Non-Af Amer) 16 Random Glucose 99 Calcium 8.4 L Phosphorus 3.3 Total Bilirubin 0.8 AST 41 H D ALT 37 Alkaline Phosphatase 71 Total Protein 6.0 L Albumin 3.0 L Globulin 3.0 Albumin/Globulin Ratio 1.0 Urine Color Yellow Urine Clarity Hazy Urine pH 6.0 Ur Specific [place] 1.015 Urine Protein 2+ H Urine Glucose (UA) Normal Urine Ketones Negative Urine Blood 2+ H Urine Nitrate Negative Urine Bilirubin Negative Urine Urobilinogen Normal Ur Leukocyte Esterase 3+ H Urine WBC (Auto) 81 H Urine RBC (Auto) 45 H Ur Squamous Epith Cells 3 Urine Bacteria Occ H Urine Yeast (Budding) Many H U Random Total Protein Urine Creatinine Ur Creatinine 24 Hour Ur Microalbumin mg/dl Ur Microalbumin mcg/min Ur Microalbumin 24 Hr U Creat (Microalbumin) Microalb/Creat Ratio 24 Ur Total Protein 24 Hr Protein/Creat Ratio 24h Urine Total Protein ANCA Screen c-ANCA Titer p-ANCA Titer Atypical p-ANCA Titer RN TELEPHONE TRIAGE Antibody RN TELEPHONE TRIAGE Antibody Interp Critical Care Progress Note - Nutrition Nutrition: Nutrition Category Date Time Status Dysphagia/Modified Consistency Diet [DIET] Diets 08/10/18 Lunch Active Attending/Attestation - Attestation I have personally seen and examined this patient.: Yes I have fully participated in the care of the patient.: Yes I have reviewed all pertinent clinical information: Yes Notes (Text): 08/11/18 17:44 patient seen and examined in the intensive care unit. Status post cardiac cath with RCA dissection Continue medical management On anticoagulation started on coumadin
[2018-08-11] MEDS: Sodium Chloride Nasal 0.65% Soln (30ml) NAS SCH ×3 (10:59→17:47)
[2018-08-11 11:51] LABS: CREATININE, 24 HOUR URINE 0.75 g/24 h (0.63-2.50)
[2018-08-11] MEDS: guaiFENesin 100 mg/5 ml Syrup UD PO PRN ×2 (13:18→21:23)
[2018-08-11 13:39] LABS: RNP <1.0 AI (<1.0)
[2018-08-11 16:51] LABS: PROTHROMBIN TIME 21.8 SECONDS (9.7-12.2)
[2018-08-12] MEDS: Cefepime 1 GM in Sodium Chloride 0.9% 100 ML IVPB SCH (00:36)
[2018-08-12] MEDS: Nitroglycerin 2% Ointment Foilpak UD TOP SCH ×5 (00:38→23:53)
[2018-08-12] MEDS: Albuterol-Ipratrop 3 mg / 0.5 (3 ml) UD INH SCH ×4 (01:22→19:36)
[2018-08-12 02:54] LABS: ANCA SCREEN NEGATIVE (NEGATIVE)
[2018-08-12] MEDS: guaiFENesin 100 mg/5 ml Syrup UD PO PRN ×2 (04:32→22:15)
[2018-08-12] MEDS: oxyCODONE 5 mg Immediate Release Tab PO PRN (04:32)
[2018-08-12 06:18] LABS: BASO # 0.1 K/uL (0.0-0.2); BASO % 1.4 % (0.0-2.0); EOS # 0.1 K/uL (0.0-0.7); EOS % 0.7 % (0.0-4.0); HEMOGLOBIN 8.2 g/dL (11.0-16.0); LYMPH % 13.5 % (20.0-40.0); MEAN CELL VOLUME 82.6 fL (81.0-99.0); MEAN CORPUSCULAR HEMOGLOBIN 27.5 pg (27.0-31.0); MEAN CORPUSCULAR HGB CONC 33.3 g/dL (33.0-37.0); MEAN PLATELET VOLUME 10.9 fL (7.2-11.7); MONO # 0.8 K/uL (0.0-0.8); MONO % 10.2 % (0.0-10.0); NEUT # 5.5 K/uL (1.8-7.0); NEUT % 74.2 % (50.0-75.0); NRBC % 0.1 % (0.0-2.0); RBC 2.98 Mil/uL (3.80-5.20); RED CELL DISTRIBUTION WIDTH 18.4 % (11.5-14.5); WHITE BLOOD COUNT 7.4 K/uL (4.8-10.8)
[2018-08-12 06:29] LABS: INR 1.8; PROTHROMBIN TIME 19.8 SECONDS (9.7-12.2)
[2018-08-12 06:34] LABS: ALBUMIN 3.1 g/dL (3.5-5.0); CALCIUM 8.6 mg/dl (8.6-10.4)
[2018-08-12 07:52] LABS: THROMBIN CLOTTING TIME 37 sec (13-19)
[2018-08-12] MEDS ORDERED: Potassium Chloride 20 mEq/15 ml LIQ UD PO STA (08:02)
--- NOTE | 2018-08-12 08:34 | RAD ---
Date of service: 08/12/2018 HISTORY: rales COMPARISON: 08/07/2018 FINDINGS: LUNGS: Patchy opacity throughout the left lung. Right basilar opacity. Possible subsegmental atelectasis at right base. Possible left-sided pneumonia. Left-sided opacity is new since prior examination. PLEURA: Small bilateral pleural effusion. CARDIOVASCULAR: Normal heart size. Mild congestive change. Left internal jugular central venous catheter. Right tunneled central venous dialysis catheter. OSSEOUS STRUCTURES: No significant abnormalities. VISUALIZED UPPER ABDOMEN: Normal. OTHER FINDINGS: None. IMPRESSION: Patchy diffuse left-sided pulmonary opacity. Possible developing pneumonia. Suspect right basilar subsegmental atelectasis. Small bilateral pleural effusion.
--- NOTE | 2018-08-12 08:36 | CP.PCM.PN ---
Subjective - Date & Time of Evaluation Date of Evaluation: 08/12/18 Time of Evaluation: 08:15 - Subjective Subjective: Patient was seen and examined by me. Family present at bedside This morning the patient was again reporting pain in the flank areas. Yesterday had a UA done which appears to suggest infection. A urine culture was done but result pending. Patient remains on IV abx at this time. Doesn't have the brady any more. Bedside commode Yesterday was started on coumadin Objective - Vital Signs/Intake and Output Vital Signs (last 24 hours): Temp Pulse Resp BP Pulse Ox 99 F 99 H 25 H 124/77 95 08/12/18 04:00 08/12/18 06:00 08/12/18 06:00 08/12/18 05:57 08/12/18 06:00 Intake and Output: 08/12/18 08/12/18 06:59 18:59 Intake Total 200 Output Total 500 Balance -300 - Medications Medications: Current Medications Albuterol/Ipratropium (Duoneb 3 Mg/0.5 Mg (3 Ml) Ud) 3 ml INH RQ6 [facility] Last Admin: 08/12/18 01:22 Dose: 3 ml Alprazolam (Xanax) 0.25 mg PO TID PRN PRN Reason: Anxiety Stop: 08/18/18 15:46 Last Admin: 08/12/18 00:40 Dose: 0.25 mg Aspirin (Aspirin Chewable) 81 mg PO DAILY [facility] Last Admin: 08/11/18 10:15 Dose: 81 mg Clopidogrel Bisulfate (Plavix) 75 mg PO DAILY [facility] Last Admin: 08/11/18 10:15 Dose: 75 mg Famotidine (Pepcid) 20 mg PO DAILY [facility] Last Admin: 08/11/18 10:15 Dose: 20 mg Guaifenesin (Robitussin) 100 mg PO Q4H PRN PRN Reason: Cough Last Admin: 08/12/18 04:32 Dose: 100 mg Cefepime HCl 1 gm/ Sodium (Chloride) 100 mls @ 100 mls/hr IVPB Q24H [facility]; Protocol Last Admin: 08/12/18 00:36 Dose: 100 mls/hr Lidocaine HCl (Lidocaine 2% Viscous) 5 ml PO Q3H PRN PRN Reason: Other Last Admin: 08/07/18 22:31 Dose: 5 ml Metoprolol Succinate (Toprol Xl) 50 mg PO DAILY [facility] Last Admin: 08/11/18 10:15 Dose: 50 mg Metronidazole (Flagyl) 500 mg PO Q8 [facility]; Protocol Last Admin: 08/12/18 05:28 Dose: 500 mg Nitroglycerin (Nitro-Bid 2% Oint) 1 ea TOP Q6H [facility] Last Admin: 08/12/18 05:29 Dose: 1 ea Nystatin (Nystatin Oral Susp) 5 ml PO QID [facility] Last Admin: 08/11/18 21:24 Dose: 5 ml Oxycodone HCl (Oxycodone Immediate Release Tab) 5 mg PO Q6 PRN PRN Reason: Pain, moderate (4-7) Last Admin: 08/12/18 04:32 Dose: 5 mg Rosuvastatin Calcium (Crestor) 10 mg PO HS [facility] Last Admin: 08/11/18 21:24 Dose: 10 mg Saccharomyces Boulardii (Florastor) 250 mg PO BID [facility] Last Admin: 08/11/18 17:46 Dose: 250 mg Sodium Chloride ([place] Baby Saline 30 Ml) 0 ml MICHAEL TID [facility] Last Admin: 08/11/18 17:47 Dose: 2 spr - Labs Labs: 08/12/18 06:14 08/12/18 06:14 PT 19.8 SECONDS (9.7-12.2) H 08/12/18 06:14 INR 1.8 08/12/18 06:14 APTT 32 SECONDS (21-34) D 08/11/18 16:34 - Constitutional Appears: No Acute Distress, Chronically Ill - Head Exam Additional comments: Areas of echymosis - not changed from previously - Eye Exam Additional comments: Areas of echymosis not changed from previous - Respiratory Exam Respiratory Exam: Rales, NORMAL BREATHING PATTERN - Cardiovascular Exam Cardiovascular Exam: REGULAR RHYTHM - GI/Abdominal Exam GI & Abdominal Exam: Soft, Tenderness, Normal Bowel Sounds Additional comments: tenderness more at the flank areas - Neurological Exam Neurological Exam: Alert, Awake, Oriented x3 Neuro motor strength exam: Left Upper Extremity: 5, Right Upper Extremity: 5 - Psychiatric Exam Psychiatric exam: Depressed, Flat Affect - Skin Skin Exam: Warm Assessment and Plan - Assessment and Plan (Free Text) Assessment: 1. NSTEMI 08/12: Per cardiology off of the heparin ggt now. Need oral anticoagulation, yesterday was suggested to start Xarelto however given the kidney function it was decided the patient be started on coumadin instead. 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 Recommend medical management. On ASA and Plavix and statin. The heparin ggt is currently off this morning 08/10: Currently no chest pain. Remains on heparin ggt. Plavix, ASA, Statin Cardiology is planning on potential cardiac catherization later today. As mentioned previously the patient was transferred back to the ICU on 08/08 after chest pain and elevated troponins. 2. Bilateral PE, DVT 08/12: Now on coumdain. Off of the heparin ggt. 08/10: Currently remains on the heparin ggt. Currently on nasal cannula and SpO2s have been stable. As mentioned in previous notes when she was first admitted she was in ICU intubated from respiratory arrest/ACLS and then extubated on 08/01 Continue IV heparin Breathing is improving. Saturating good on 2L NC CXR 08/07: venous congestion, patchy infiltrate, pleural effusion R>L CTA chest showed diffuse bilateral pulmonary emboli involving bilateral central and segmental pulmonary arteries, cardiac silhouette enlarged, there is evidence of pulmonary venous congestion compatible with CHF, left basilar atelectasis vs pulmonary infarct (official report pending) LE duplex shows left acute thrombosis of the left common femoral vein Echo showed LVEF 50-55%, mild to moderate TR and pulmonary hypertension 3.Pneumonia 08/12: Recheck CXRAY today. Remains on the IV abx. 08/11: Remains afebrile and cultures remain negative. WBC remains stable 08/10: Currently on IV cefpime and IV flagyl. The WBC is stable, afebrile at this moment. 4. Acute renal failure 08/12: No longer has the brady cathter. Bedside commode. 08/11: Creatine decreased to 3.1 and urine out put 1140 08/10: Urine output recorded as 1220. Creatine was 4.5 this AM. Last HD was on Friday Getting dialysis via right perma cath Left TLC, intact with dressing dry 5. s/p Atrial Fibrillation with RVR -Initial EKG showed afib with rate of 146 bpm 6.Anxiety Xanax 0.25mg PO TID PRN 7.GI/DVT ppx: -Protonix 40mg IVP Q12H -Florastor 250 BID
[2018-08-12] MEDS: Sodium Chloride Nasal 0.65% Soln (30ml) NAS SCH ×3 (09:07→17:16)
[2018-08-12] MEDS: Nystatin 100,000 Units/ml Oral Susp 5 ml UD PO SCH ×4 (09:07→22:14)
[2018-08-12] MEDS: Saccharomyces Boulardi 250 mg Cap PO SCH ×2 (09:07→17:12)
[2018-08-12] MEDS: Metoprolol Succinate 50 mg XL Tab PO SCH (09:07)
[2018-08-12 12:34] LABS: CARDIOLIPIN AB (IGA) <11 APL (<=11)
--- NOTE | 2018-08-12 14:27 | CP.PCM.PN ---
Subjective - Date & Time of Evaluation Date of Evaluation: 08/12/18 Time of Evaluation: 09:00 - Subjective Subjective: Nephrology Progress Note for Dr. Henson Patient was seen and examined at bedside in the AM. Patient states her breathing has slightly improved. She states she is urinating and eating well. Patient also states she did take a few steps with physical therapy. Objective - Vital Signs/Intake and Output Vital Signs (last 24 hours): Temp Pulse Resp BP Pulse Ox 99.9 F H 111 H 16 119/77 98 08/12/18 12:00 08/12/18 14:00 08/12/18 14:00 08/12/18 13:57 08/12/18 14:00 Intake and Output: 08/12/18 08/12/18 06:59 18:59 Intake Total 200 500 Output Total 500 0 Balance -300 500 - Medications Medications: Current Medications Albuterol/Ipratropium (Duoneb 3 Mg/0.5 Mg (3 Ml) Ud) 3 ml INH RQ6 [facility] Last Admin: 08/12/18 13:34 Dose: 3 ml Alprazolam (Xanax) 0.25 mg PO TID PRN PRN Reason: Anxiety Stop: 08/18/18 15:46 Last Admin: 08/12/18 00:40 Dose: 0.25 mg Aspirin (Aspirin Chewable) 81 mg PO DAILY [facility] Last Admin: 08/12/18 09:07 Dose: 81 mg Clopidogrel Bisulfate (Plavix) 75 mg PO DAILY [facility] Last Admin: 08/12/18 09:07 Dose: 75 mg Famotidine (Pepcid) 20 mg PO DAILY [facility] Last Admin: 08/12/18 09:07 Dose: 20 mg Guaifenesin (Robitussin) 100 mg PO Q4H PRN PRN Reason: Cough Last Admin: 08/12/18 04:32 Dose: 100 mg Cefepime HCl 1 gm/ Sodium (Chloride) 100 mls @ 100 mls/hr IVPB Q24H [facility]; Protocol Last Admin: 08/12/18 00:36 Dose: 100 mls/hr Lidocaine HCl (Lidocaine 2% Viscous) 5 ml PO Q3H PRN PRN Reason: Other Last Admin: 08/07/18 22:31 Dose: 5 ml Metoprolol Succinate (Toprol Xl) 50 mg PO DAILY [facility] Last Admin: 08/12/18 09:07 Dose: 50 mg Metronidazole (Flagyl) 500 mg PO Q8 [facility]; Protocol Last Admin: 08/12/18 13:27 Dose: 500 mg Nitroglycerin (Nitro-Bid 2% Oint) 1 ea TOP Q6H [facility] Last Admin: 08/12/18 13:27 Dose: 1 ea Nystatin (Nystatin Oral Susp) 5 ml PO QID [facility] Last Admin: 08/12/18 13:27 Dose: 5 ml Oxycodone HCl (Oxycodone Immediate Release Tab) 5 mg PO Q6 PRN PRN Reason: Pain, moderate (4-7) Last Admin: 08/12/18 04:32 Dose: 5 mg Rosuvastatin Calcium (Crestor) 10 mg PO HS [facility] Last Admin: 08/11/18 21:24 Dose: 10 mg Saccharomyces Boulardii (Florastor) 250 mg PO BID [facility] Last Admin: 08/12/18 09:07 Dose: 250 mg Sodium Chloride ([place] Baby Saline 30 Ml) 0 ml MICHAEL TID [facility] Last Admin: 08/12/18 09:07 Dose: 1 spr Warfarin Sodium (Coumadin) 2.5 mg PO 1800 ONE Stop: 08/12/18 18:01 - Labs Labs: 08/12/18 06:14 08/12/18 06:14 PT 19.8 SECONDS (9.7-12.2) H 08/12/18 06:14 INR 1.8 08/12/18 06:14 APTT 32 SECONDS (21-34) D 08/11/18 16:34 - Constitutional Appears: No Acute Distress - Head Exam Head Exam: ATRAUMATIC, NORMAL INSPECTION - Eye Exam Eye Exam: EOMI, Normal appearance - ENT Exam ENT Exam: Mucous Membranes Moist - Respiratory Exam Respiratory Exam: Clear to Ausculation Bilateral, NORMAL BREATHING PATTERN - Cardiovascular Exam Cardiovascular Exam: Tachycardia, +S1, +S2 - GI/Abdominal Exam GI & Abdominal Exam: Soft, Normal Bowel Sounds. absent: Tenderness - Extremities Exam Extremities Exam: Normal Inspection - Neurological Exam Neurological Exam: Alert, Awake, Oriented x3 - Psychiatric Exam Psychiatric exam: Normal Affect - Skin Additional comments: hematoma above left eye; hematoma left and right forearm Assessment and Plan - Assessment and Plan (Free Text) Assessment: 48 year old female with a past medical history of anxiety, possible UTI, on OCP who presented to [facility] after a syncopal episode at home and found to be in atrial fibrillation and was given cardizem and morphine. Patient then went into respiratory stress with bradycardia. ACLS protocol was initiated. Patient was intubated and ICU was consulted. Labs revealed a severe metabolic lactic acidosis, acute hypoxemic respiratory failure, and leukocytosis of 39,000 with 23 % bands despite being given fluids and CTA showed diffuse bilateral PE while duplex US of the LE showed an occlusive thrombus in the left common femoral vein. Acute renal failure secondary to septic shock and hypo-perfusion - Becerril removed 08/11/18 - s/p Dialysis 08/10/18 Cr 3.1 - Continue to monitor Cr to monitor for kidney function improvement NSTEMI - Dr. 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 - Medications * Asa 81mg daily * Plavix 75mg daily * Metoprolol XL 50mg po daily - f/u vasculitis workup - CLINTON negative - Complement 3 & 4: Low Pneumonia - Chest CT (08/03/18): Evidence of multifocal pneumonia - Continue Cefepime 1gm q24h and Flagyl 500mg q8h B/L PE - CTA showed diffuse bilateral pulmonary emboli of B/L central and segmental pulmonary arteries, pulmonary venous congestion compatible with CHF vs left basilar atelectasis vs pulmonary infarct - D-dimer > 5250, PT/INR/PTT elevated, elevated fibrinogen products - heparin drip discontinued - INR 1.8 - Warfarin 2.5mg once - Echo showed LVEF 50-55%, mild to moderate TR and pulmonary hypertension Afib - EKG on admission showed afib with RVR at 146bpm - Warfarin 2.5mg once Hypocalcemia in a critically ill patient - Corrected Ca is 6.9 - 2 grams of Calcium Gluconate given - Ca is stable 8.8 - continue to monitor Case discussed with Dr. Natividad Salgado PGY-2
--- NOTE | 2018-08-12 17:57 | CP.PCM.PN ---
Subjective - Date & Time of Evaluation Date of Evaluation: 08/12/18 Time of Evaluation: 17:50 - Subjective Subjective: Cardiology Progress Note Airam Rasmussen, PGY-[address] Ba Patient seen and examined at bedside. No acute events overnight. She is sitting in chair, resting comfortably and denies any complaints at this time. Ambulating well. Brady removed yesterday. Objective - Vital Signs/Intake and Output Vital Signs (last 24 hours): Temp Pulse Resp BP Pulse Ox 99.7 F H 108 H 16 125/79 98 08/12/18 16:00 08/12/18 17:00 08/12/18 17:00 08/12/18 16:57 08/12/18 17:00 Intake and Output: 08/12/18 08/12/18 06:59 18:59 Intake Total 200 600 Output Total 500 1 Balance -300 599 - Medications Medications: Current Medications Albuterol/Ipratropium (Duoneb 3 Mg/0.5 Mg (3 Ml) Ud) 3 ml INH RQ6 [facility] Last Admin: 08/12/18 13:34 Dose: 3 ml Alprazolam (Xanax) 0.25 mg PO TID PRN PRN Reason: Anxiety Stop: 08/18/18 15:46 Last Admin: 08/12/18 00:40 Dose: 0.25 mg Aspirin (Aspirin Chewable) 81 mg PO DAILY [facility] Last Admin: 08/12/18 09:07 Dose: 81 mg Clopidogrel Bisulfate (Plavix) 75 mg PO DAILY [facility] Last Admin: 08/12/18 09:07 Dose: 75 mg Famotidine (Pepcid) 20 mg PO DAILY [facility] Last Admin: 08/12/18 09:07 Dose: 20 mg Guaifenesin (Robitussin) 100 mg PO Q4H PRN PRN Reason: Cough Last Admin: 08/12/18 04:32 Dose: 100 mg Cefepime HCl 1 gm/ Sodium (Chloride) 100 mls @ 100 mls/hr IVPB Q24H [facility]; Protocol Last Admin: 08/12/18 00:36 Dose: 100 mls/hr Lidocaine HCl (Lidocaine 2% Viscous) 5 ml PO Q3H PRN PRN Reason: Other Last Admin: 08/07/18 22:31 Dose: 5 ml Metoprolol Succinate (Toprol Xl) 50 mg PO DAILY [facility] Last Admin: 08/12/18 09:07 Dose: 50 mg Metronidazole (Flagyl) 500 mg PO Q8 [facility]; Protocol Last Admin: 08/12/18 13:27 Dose: 500 mg Nitroglycerin (Nitro-Bid 2% Oint) 1 ea TOP Q6H [facility] Last Admin: 08/12/18 13:27 Dose: 1 ea Nystatin (Nystatin Oral Susp) 5 ml PO QID [facility] Last Admin: 08/12/18 17:13 Dose: 5 ml Oxycodone HCl (Oxycodone Immediate Release Tab) 5 mg PO Q6 PRN PRN Reason: Pain, moderate (4-7) Last Admin: 08/12/18 04:32 Dose: 5 mg Rosuvastatin Calcium (Crestor) 10 mg PO HS [facility] Last Admin: 08/11/18 21:24 Dose: 10 mg Saccharomyces Boulardii (Florastor) 250 mg PO BID [facility] Last Admin: 08/12/18 17:12 Dose: 250 mg Sodium Chloride ([place] Baby Saline 30 Ml) 0 ml MICHAEL TID [facility] Last Admin: 08/12/18 17:16 Dose: 1 spr Warfarin Sodium (Coumadin) 2.5 mg PO 1800 ONE Stop: 08/12/18 18:01 Last Admin: 08/12/18 17:13 Dose: 2.5 mg - Labs Labs: 08/12/18 06:14 08/12/18 06:14 PT 19.8 SECONDS (9.7-12.2) H 08/12/18 06:14 INR 1.8 08/12/18 06:14 APTT 32 SECONDS (21-34) D 08/11/18 16:34 - Constitutional Appears: No Acute Distress - Head Exam Head Exam: NORMAL INSPECTION Additional comments: left sided frontal bruise, improving - Eye Exam Eye Exam: EOMI Pupil Exam: PERRL - ENT Exam ENT Exam: Mucous Membranes Moist - Respiratory Exam Respiratory Exam: Clear to Ausculation Bilateral. absent: Respiratory Distress - Cardiovascular Exam Cardiovascular Exam: REGULAR RHYTHM, +S1, +S2 - GI/Abdominal Exam GI & Abdominal Exam: Normal Bowel Sounds. absent: Guarding, Rigid - Extremities Exam Extremities Exam: Normal Inspection. absent: Calf Tenderness - Neurological Exam Neurological Exam: Alert, Awake, Oriented x3 - Skin Skin Exam: Normal Color, Warm Assessment and Plan - Assessment and Plan (Free Text) Assessment: This is a 48 year old female with PMH of anxiety presenting to the ED s/p witnessed syncopal episode after return from [place] on bus. Plan: B/L P.E. 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 S mall B/L pleural effusions -echo showed LVEF 50-55%, mild to moderate TR and pulmonary hypertension -no need for IVC filter at this time -will not do EKOS at this time due to unknown status of prothrombotic state -CTA showed diffuse bilateral pulmonary emboli of B/L central and segmental pulmonary arteries, pulmonary venous congestion compatible with CHF vs left basilar atelectasis vs pulmonary infarct -s/p respiratory arrest, ACLS performed -LE duplex shows left acute thrombosis of the left common femoral vein Afib -EKG on admission showed afib with RVR at 146bpm, uncertain if new finding Case discussed with attending, further recommendations per Dr. Ba
[2018-08-12 21:02] LABS: SCL-70 ANTIBODY <1.0 AI (<1.0)
[2018-08-13] MEDS: Cefepime 1 GM in Sodium Chloride 0.9% 100 ML IVPB SCH (00:02)
[2018-08-13] MEDS: Albuterol-Ipratrop 3 mg / 0.5 (3 ml) UD INH SCH ×4 (01:39→19:36)
[2018-08-13] MEDS: Nitroglycerin 2% Ointment Foilpak UD TOP SCH ×4 (05:50→23:46)
[2018-08-13 06:27] LABS: BASO # 0.2 K/uL (0.0-0.2); BASO % 2.8 % (0.0-2.0); EOS # 0.1 K/uL (0.0-0.7); EOS % 0.8 % (0.0-4.0); HEMOGLOBIN 8.2 g/dL (11.0-16.0); LYMPH % 13.3 % (20.0-40.0); MEAN CELL VOLUME 82.1 fL (81.0-99.0); MEAN CORPUSCULAR HEMOGLOBIN 27.3 pg (27.0-31.0); MEAN CORPUSCULAR HGB CONC 33.3 g/dL (33.0-37.0); MEAN PLATELET VOLUME 10.3 fL (7.2-11.7); MONO # 0.8 K/uL (0.0-0.8); MONO % 11.2 % (0.0-10.0); NEUT # 5.3 K/uL (1.8-7.0); NEUT % 71.9 % (50.0-75.0); RBC 2.99 Mil/uL (3.80-5.20); RED CELL DISTRIBUTION WIDTH 17.9 % (11.5-14.5); WHITE BLOOD COUNT 7.4 K/uL (4.8-10.8)
[2018-08-13 06:54] LABS: ALB/GLOB RATIO 0.9 (1.0-2.1); CALCIUM 8.6 mg/dl (8.6-10.4)
[2018-08-13 06:58] LABS: INR 2.8; PROTHROMBIN TIME 30.2 SECONDS (9.7-12.2)
[2018-08-13] MEDS: oxyCODONE 5 mg Immediate Release Tab PO PRN ×2 (07:44→21:51)
[2018-08-13] MEDS: Metoprolol Succinate 50 mg XL Tab PO SCH (09:37)
[2018-08-13] MEDS: Nystatin 100,000 Units/ml Oral Susp 5 ml UD PO SCH ×4 (09:37→21:50)
[2018-08-13] MEDS: Saccharomyces Boulardi 250 mg Cap PO SCH ×2 (09:37→17:20)
[2018-08-13] MEDS: Sodium Chloride Nasal 0.65% Soln (30ml) NAS SCH ×3 (09:40→19:04)
--- NOTE | 2018-08-13 09:48 | CP.PCM.PN ---
Subjective - Date & Time of Evaluation Date of Evaluation: 08/13/18 Time of Evaluation: 08:00 - Subjective Subjective: Nephrology Progress Note for Dr. Henson Patient was seen and examined at bedside in the AM. Patient states her breathing has slightly improved but she still continues to feel like she has a heavy pressure on her chest.. She states she is urinating and eating well. Patient states she has not had diarrhea symptoms for more than 2 days. Objective - Vital Signs/Intake and Output Vital Signs (last 24 hours): Temp Pulse Resp BP Pulse Ox 98.6 F 103 H 28 H 120/77 98 08/13/18 04:00 08/13/18 06:00 08/13/18 06:00 08/13/18 05:57 08/13/18 06:00 Intake and Output: 08/13/18 08/13/18 06:59 18:59 Intake Total 340 Output Total 600 Balance -260 - Medications Medications: Current Medications Acetaminophen (Tylenol 325mg Tab) 650 mg PO Q6 PRN PRN Reason: Fever >100.4 F Last Admin: 08/12/18 23:54 Dose: 650 mg Albuterol/Ipratropium (Duoneb 3 Mg/0.5 Mg (3 Ml) Ud) 3 ml INH RQ6 [facility] Last Admin: 08/13/18 07:43 Dose: 3 ml Alprazolam (Xanax) 0.25 mg PO TID PRN PRN Reason: Anxiety Stop: 08/18/18 15:46 Last Admin: 08/12/18 23:37 Dose: 0.25 mg Aspirin (Aspirin Chewable) 81 mg PO DAILY [facility] Last Admin: 08/13/18 09:37 Dose: 81 mg Clopidogrel Bisulfate (Plavix) 75 mg PO DAILY [facility] Last Admin: 08/13/18 09:37 Dose: 75 mg Famotidine (Pepcid) 20 mg PO DAILY [facility] Last Admin: 08/13/18 09:37 Dose: 20 mg Guaifenesin (Robitussin) 100 mg PO Q4H PRN PRN Reason: Cough Last Admin: 08/12/18 22:15 Dose: 100 mg Cefepime HCl 1 gm/ Sodium (Chloride) 100 mls @ 100 mls/hr IVPB Q24H [facility]; Protocol Last Admin: 08/13/18 00:02 Dose: 100 mls/hr Lidocaine HCl (Lidocaine 2% Viscous) 5 ml PO Q3H PRN PRN Reason: Other Last Admin: 08/07/18 22:31 Dose: 5 ml Metoprolol Succinate (Toprol Xl) 50 mg PO DAILY [facility] Last Admin: 08/13/18 09:37 Dose: 50 mg Metronidazole (Flagyl) 500 mg PO Q8 [facility]; Protocol Last Admin: 08/13/18 05:12 Dose: 500 mg Nitroglycerin (Nitro-Bid 2% Oint) 1 ea TOP Q6H [facility] Last Admin: 08/13/18 05:50 Dose: 1 ea Nystatin (Nystatin Oral Susp) 5 ml PO QID [facility] Last Admin: 08/13/18 09:37 Dose: 5 ml Oxycodone HCl (Oxycodone Immediate Release Tab) 5 mg PO Q6 PRN PRN Reason: Pain, moderate (4-7) Last Admin: 08/13/18 07:44 Dose: 5 mg Rosuvastatin Calcium (Crestor) 10 mg PO HS [facility] Last Admin: 08/12/18 22:14 Dose: 10 mg Saccharomyces Boulardii (Florastor) 250 mg PO BID [facility] Last Admin: 08/13/18 09:37 Dose: 250 mg Sodium Chloride ([place] Baby Saline 30 Ml) 0 ml MICHAEL TID [facility] Last Admin: 08/13/18 09:40 Dose: 1 spr - Labs Labs: 08/13/18 06:22 08/13/18 06:22 PT 30.2 SECONDS (9.7-12.2) H D 08/13/18 06:22 INR 2.8 D 08/13/18 06:22 APTT 32 SECONDS (21-34) 08/13/18 06:22 - Constitutional Appears: No Acute Distress - Head Exam Head Exam: ATRAUMATIC, NORMAL INSPECTION - Eye Exam Eye Exam: EOMI, Normal appearance - ENT Exam ENT Exam: Mucous Membranes Moist - Respiratory Exam Respiratory Exam: NORMAL BREATHING PATTERN Additional comments: crackles on the left lobe - Cardiovascular Exam Cardiovascular Exam: Tachycardia, REGULAR RHYTHM, +S1, +S2 - GI/Abdominal Exam GI & Abdominal Exam: Soft, Normal Bowel Sounds. absent: Tenderness - Extremities Exam Extremities Exam: Normal Inspection - Neurological Exam Neurological Exam: Alert, Awake, Oriented x3 - Psychiatric Exam Psychiatric exam: Normal Affect - Skin Additional comments: hematoma above left eye; hematoma left and right forearm, hematoma on the chest Assessment and Plan - Assessment and Plan (Free Text) Assessment: 48 year old female with a past medical history of anxiety, possible UTI, on OCP who presented to [facility] after a syncopal episode at home and found to be in atrial fibrillation and was given cardizem and morphine. Patient then went into respiratory stress with bradycardia. ACLS protocol was initiated. Patient was intubated and ICU was consulted. Labs revealed a severe metabolic lactic acidosis, acute hypoxemic respiratory failure, and leukocytosis of 39,000 with 23 % bands despite being given fluids and CTA showed diffuse bilateral PE while duplex US of the LE showed an occlusive thrombus in the left common femoral vein. Acute renal failure secondary to septic shock and hypo-perfusion - Becerril removed 08/11/18 - f/u repeat UA - s/p Dialysis 08/10/18 Cr 3.1 - Continue to monitor Cr to monitor for kidney function improvement - Dialysis planned for Friday08/14/18 NSTEMI - Dr. 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 - Medications * Asa 81mg daily * Plavix 75mg daily * Metoprolol XL 50mg po daily - f/u vasculitis workup - CLINTON negative - Complement 3 & 4: Low - f/u repeat complement Pneumonia - Chest CT (08/03/18): Evidence of multifocal pneumonia - Continue Cefepime 1gm q24h - Florastor 250mg bid B/L PE - CTA showed diffuse bilateral pulmonary emboli of B/L central and segmental pulmonary arteries, pulmonary venous congestion compatible with CHF vs left basilar atelectasis vs pulmonary infarct - D-dimer > 5250, PT/INR/PTT elevated, elevated fibrinogen products - heparin drip discontinued - INR 2.8 - Warfarin 2mg once - Echo showed LVEF 50-55%, mild to moderate TR and pulmonary hypertension Afib - EKG on admission showed afib with RVR at 146bpm - Warfarin 2.5mg once Hypocalcemia in a critically ill patient - Corrected Ca is 6.9 - 2 grams of Calcium Gluconate given - Ca is stable 8.8 - continue to monitor Case discussed with Dr. Natividad Salgado PGY-2
[2018-08-13 14:59] LABS: SQUAMOUS EPITHIAL 6 /hpf (0-5); URINE BACTERIA OCC (<OCC); URINE BILIRUBIN NEGATIVE (NEGATIVE); URINE BLOOD 2+ (NEGATIVE); URINE CLARITY Hazy (Clear); URINE COLOR Yellow (YELLOW); URINE GLUCOSE (UA) NORMAL (Normal); URINE LEUKOCYTE ESTERASE 3+ Leu/uL (Negative); URINE PROTEIN 2+ mg/dL (NEGATIVE); URINE UROBILINOGEN NORMAL mg/dL (0.2-1.0)
--- NOTE | 2018-08-13 17:08 | CP.PCM.PN ---
<Danna Oliva - Last Filed: 08/13/18 17:27> Subjective - Date & Time of Evaluation Date of Evaluation: 08/13/18 Time of Evaluation: 09:00 - Subjective Subjective: Patient examined at bedside. No acute events overnight. Patient reports she has been producing urine. Pt reports tightness and irritation in her throat. Patient denies chest pain, SOB, abd pain, N/V/D. Objective - Vital Signs/Intake and Output Vital Signs (last 24 hours): Temp Pulse Resp BP Pulse Ox 98.6 F 111 H 18 118/77 99 08/13/18 08:00 08/13/18 14:00 08/13/18 14:00 08/13/18 13:58 08/13/18 13:00 Intake and Output: 08/13/18 08/13/18 06:59 18:59 Intake Total 340 180 Output Total 600 0 Balance -260 180 - Medications Medications: Current Medications Acetaminophen (Tylenol 325mg Tab) 650 mg PO Q6 PRN PRN Reason: Fever >100.4 F Last Admin: 08/12/18 23:54 Dose: 650 mg Albuterol/Ipratropium (Duoneb 3 Mg/0.5 Mg (3 Ml) Ud) 3 ml INH RQ6 [facility] Last Admin: 08/13/18 13:45 Dose: 3 ml Alprazolam (Xanax) 0.25 mg PO TID PRN PRN Reason: Anxiety Stop: 08/18/18 15:46 Last Admin: 08/12/18 23:37 Dose: 0.25 mg Aspirin (Aspirin Chewable) 81 mg PO DAILY [facility] Last Admin: 08/13/18 09:37 Dose: 81 mg Benzocaine/Menthol (Cepacol Sore Throat) 1 naheed MT Q4 PRN PRN Reason: Sore Throat Clopidogrel Bisulfate (Plavix) 75 mg PO DAILY [facility] Last Admin: 08/13/18 09:37 Dose: 75 mg Famotidine (Pepcid) 20 mg PO DAILY [facility] Last Admin: 08/13/18 09:37 Dose: 20 mg Guaifenesin (Robitussin) 100 mg PO Q4H PRN PRN Reason: Cough Last Admin: 08/12/18 22:15 Dose: 100 mg Cefepime HCl 1 gm/ Sodium (Chloride) 100 mls @ 100 mls/hr IVPB Q24H [facility]; Protocol Last Admin: 08/13/18 00:02 Dose: 100 mls/hr Lidocaine HCl (Lidocaine 2% Viscous) 5 ml PO Q3H PRN PRN Reason: Other Last Admin: 08/07/18 22:31 Dose: 5 ml Metoprolol Succinate (Toprol Xl) 50 mg PO DAILY [facility] Last Admin: 08/13/18 09:37 Dose: 50 mg Nitroglycerin (Nitro-Bid 2% Oint) 1 ea TOP Q6H [facility] Last Admin: 08/13/18 12:30 Dose: 1 ea Nystatin (Nystatin Oral Susp) 5 ml PO QID [facility] Last Admin: 08/13/18 13:34 Dose: 5 ml Oxycodone HCl (Oxycodone Immediate Release Tab) 5 mg PO Q6 PRN PRN Reason: Pain, moderate (4-7) Last Admin: 08/13/18 07:44 Dose: 5 mg Rosuvastatin Calcium (Crestor) 10 mg PO HS [facility] Last Admin: 08/12/18 22:14 Dose: 10 mg Saccharomyces Boulardii (Florastor) 250 mg PO BID [facility] Last Admin: 08/13/18 09:37 Dose: 250 mg Sodium Chloride ([place] Baby Saline 30 Ml) 0 ml MICHAEL TID [facility] Last Admin: 08/13/18 13:35 Dose: 1 spr Warfarin Sodium (Coumadin) 2 mg PO 1800 ONE Stop: 08/13/18 18:01 - Labs Labs: 08/13/18 06:22 08/13/18 06:22 PT 30.2 SECONDS (9.7-12.2) H D 08/13/18 06:22 INR 2.8 D 08/13/18 06:22 APTT 32 SECONDS (21-34) 08/13/18 06:22 - Constitutional Appears: No Acute Distress - Head Exam Head Exam: ATRAUMATIC, NORMAL INSPECTION, NORMOCEPHALIC - Eye Exam Eye Exam: EOMI, Normal appearance - ENT Exam ENT Exam: Mucous Membranes Moist, Normal Exam - Neck Exam Neck Exam: absent: Normal Inspection Additional comments: Right HD catheter, left TLC - Respiratory Exam Respiratory Exam: Clear to Ausculation Bilateral, NORMAL BREATHING PATTERN - Cardiovascular Exam Cardiovascular Exam: Tachycardia, REGULAR RHYTHM, +S1, +S2 - GI/Abdominal Exam GI & Abdominal Exam: Soft, Normal Bowel Sounds. absent: Distended, Tenderness - Extremities Exam Extremities Exam: Normal Inspection. absent: Calf Tenderness, Pedal Edema - Neurological Exam Neurological Exam: Alert, Awake, Oriented x3 - Psychiatric Exam Psychiatric exam: Normal Affect, Normal Mood - Skin Skin Exam: Dry, Intact, Normal Color, Warm - Additional Findings Additional findings: Diffuse areas of ecchymosis across chest, arms. Assessment and Plan - Assessment and Plan (Free Text) Assessment: 48 year old female with a past medical history of anxiety, possible UTI, on OCP who presented to [facility] after a syncopal episode at home and found to be in atrial fibrillation and was given cardizem and morphine. Patient then went into respiratory stress with bradycardia. ACLS protocol was initiated. Patient was intubated and ICU was consulted. Labs revealed a severe metabolic lactic acidosis, acute hypoxemic respiratory failure, and leukocytosis of 39,000 with 23 % bands despite being given fluids and CTA showed diffuse bilateral PE while duplex US of the LE showed an occlusive thrombus in the left common femoral vein. Acute renal failure secondary to septic shock and hypo-perfusion - Becerril removed 08/11/18 - pt producing urine, continue to monitor I/O - f/u repeat UA - 4.0 today - Continue to monitor Cr to monitor for kidney function improvement - Dialysis planned for Friday08/14/18 NSTEMI - Dr. 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 - Medications * Asa 81mg daily * Plavix 75mg daily * Metoprolol XL 50mg po daily - f/u vasculitis workup - CL[place] negative - Complement 3 & 4: Low - f/u repeat complement Pneumonia - Chest CT (08/03/18): Evidence of multifocal pneumonia - Continue Cefepime 1gm q24h - Florastor 250mg bid B/L PE - Duplex 07/27 reveals DVT in left femoral vein - CTA showed diffuse bilateral pulmonary emboli of B/L central and segmental pulmonary arteries, pulmonary venous congestion compatible with CHF vs left basilar atelectasis vs pulmonary infarct - D-dimer > 5250, PT/INR/PTT elevated, elevated fibrinogen products - heparin drip discontinued - INR 2.8 - Warfarin 2mg once, am INR - Echo showed LVEF 50-55%, mild to moderate TR and pulmonary hypertension Afib - EKG on admission showed afib with RVR at 146bpm - Warfarin 2mg, f/u am INR Hypocalcemia in a critically ill patient - Corrected Ca is 6.9 - 2 grams of Calcium Gluconate given - Ca is stable 8.8 - continue to monitor Enteritis - resolved - flagyl d/c <Torin Velez H - Last Filed: 08/13/18 17:47> Objective - Vital Signs/Intake and Output Vital Signs (last 24 hours): Temp Pulse Resp BP Pulse Ox 98.6 F 111 H 18 118/77 99 08/13/18 08:00 08/13/18 14:00 08/13/18 14:00 08/13/18 13:58 08/13/18 13:00 Intake and Output: 08/13/18 08/13/18 06:59 18:59 Intake Total 340 180 Output Total 600 0 Balance -260 180 - Medications Medications: Current Medications Acetaminophen (Tylenol 325mg Tab) 650 mg PO Q6 PRN PRN Reason: Fever >100.4 F Last Admin: 08/12/18 23:54 Dose: 650 mg Albuterol/Ipratropium (Duoneb 3 Mg/0.5 Mg (3 Ml) Ud) 3 ml INH RQ6 [facility] Last Admin: 08/13/18 13:45 Dose: 3 ml Alprazolam (Xanax) 0.25 mg PO TID PRN PRN Reason: Anxiety Stop: 08/18/18 15:46 Last Admin: 08/12/18 23:37 Dose: 0.25 mg Aspirin (Aspirin Chewable) 81 mg PO DAILY [facility] Last Admin: 08/13/18 09:37 Dose: 81 mg Benzocaine/Menthol (Cepacol Sore Throat) 1 naheed MT Q4 PRN PRN Reason: Sore Throat Clopidogrel Bisulfate (Plavix) 75 mg PO DAILY [facility] Last Admin: 08/13/18 09:37 Dose: 75 mg Famotidine (Pepcid) 20 mg PO DAILY [facility] Last Admin: 08/13/18 09:37 Dose: 20 mg Guaifenesin (Robitussin) 100 mg PO Q4H PRN PRN Reason: Cough Last Admin: 08/12/18 22:15 Dose: 100 mg Cefepime HCl 1 gm/ Sodium (Chloride) 100 mls @ 100 mls/hr IVPB Q24H [facility]; P rotocol Last Admin: 08/13/18 00:02 Dose: 100 mls/hr Lidocaine HCl (Lidocaine 2% Viscous) 5 ml PO Q3H PRN PRN Reason: Other Last Admin: 08/07/18 22:31 Dose: 5 ml Metoprolol Succinate (Toprol Xl) 50 mg PO DAILY [facility] Last Admin: 08/13/18 09:37 Dose: 50 mg Nitroglycerin (Nitro-Bid 2% Oint) 1 ea TOP Q6H [facility] Last Admin: 08/13/18 12:30 Dose: 1 ea Nystatin (Nystatin Oral Susp) 5 ml PO QID [facility] Last Admin: 08/13/18 17:20 Dose: 5 ml Oxycodone HCl (Oxycodone Immediate Release Tab) 5 mg PO Q6 PRN PRN Reason: Pain, moderate (4-7) Last Admin: 08/13/18 07:44 Dose: 5 mg Rosuvastatin Calcium (Crestor) 10 mg PO HS [facility] Last Admin: 08/12/18 22:14 Dose: 10 mg Saccharomyces Boulardii (Florastor) 250 mg PO BID [facility] Last Admin: 08/13/18 17:20 Dose: 250 mg Sodium Chloride ([place] Baby Saline 30 Ml) 0 ml MICHAEL TID [facility] Last Admin: 08/13/18 13:35 Dose: 1 spr Warfarin Sodium (Coumadin) 2 mg PO 1800 ONE Stop: 08/13/18 18:01 Last Admin: 08/13/18 17:20 Dose: 2 mg - Labs Labs: 08/13/18 06:22 08/13/18 06:22 PT 30.2 SECONDS (9.7-12.2) H D 08/13/18 06:22 INR 2.8 D 08/13/18 06:22 APTT 32 SECONDS (21-34) 08/13/18 06:22 Attending/Attestation - Attestation I have personally seen and examined this patient.: Yes I have fully participated in the care of the patient.: Yes I have reviewed all pertinent clinical information, including history, physical exam and plan: Yes Notes (Text): 08/13/18 17:36 Medical attending: Patient was seen and examined by me. Agree with the above note by the resident The patient was not in any acute distress when I came and saw the patient Family was present at bedside faithfully The patient is hopefully last HD tommorow. Creatine remains elevated however she is making a fair amount of urine now INR was 2.8 this morning, currently on coumadin at this time Torin Velez
--- NOTE | 2018-08-13 17:49 | CP.PCM.PN ---
Subjective - Date & Time of Evaluation Date of Evaluation: 08/13/18 Time of Evaluation: 17:47 - Subjective Subjective: Cardiology Progress Note Airam Rasmussen, PGY-[address] Ba Patient seen and examined at bedside. Patient states she was coughing and had difficulty sleeping overnight with temp of 100F; given guaifenesin and tylenol with improvement in symptoms. She currently denies any chest pain or SOB but does admit to chest tightness from coughing. Objective - Vital Signs/Intake and Output Vital Signs (last 24 hours): Temp Pulse Resp BP Pulse Ox 98.6 F 113 H 33 H 128/84 98 08/13/18 08:00 08/13/18 17:00 08/13/18 17:00 08/13/18 16:57 08/13/18 17:00 Intake and Output: 08/13/18 08/13/18 06:59 18:59 Intake Total 340 400 Output Total 600 0 Balance -260 400 - Medications Medications: Current Medications Acetaminophen (Tylenol 325mg Tab) 650 mg PO Q6 PRN PRN Reason: Fever >100.4 F Last Admin: 08/12/18 23:54 Dose: 650 mg Albuterol/Ipratropium (Duoneb 3 Mg/0.5 Mg (3 Ml) Ud) 3 ml INH RQ6 [facility] Last Admin: 08/13/18 13:45 Dose: 3 ml Alprazolam (Xanax) 0.25 mg PO TID PRN PRN Reason: Anxiety Stop: 08/18/18 15:46 Last Admin: 08/12/18 23:37 Dose: 0.25 mg Aspirin (Aspirin Chewable) 81 mg PO DAILY [facility] Last Admin: 08/13/18 09:37 Dose: 81 mg Benzocaine/Menthol (Cepacol Sore Throat) 1 naheed MT Q4 PRN PRN Reason: Sore Throat Clopidogrel Bisulfate (Plavix) 75 mg PO DAILY [facility] Last Admin: 08/13/18 09:37 Dose: 75 mg Famotidine (Pepcid) 20 mg PO DAILY [facility] Last Admin: 08/13/18 09:37 Dose: 20 mg Guaifenesin (Robitussin) 100 mg PO Q4H PRN PRN Reason: Cough Last Admin: 08/12/18 22:15 Dose: 100 mg Cefepime HCl 1 gm/ Sodium (Chloride) 100 mls @ 100 mls/hr IVPB Q24H [facility]; Protocol Last Admin: 08/13/18 00:02 Dose: 100 mls/hr Lidocaine HCl (Lidocaine 2% Viscous) 5 ml PO Q3H PRN PRN Reason: Other Last Admin: 08/07/18 22:31 Dose: 5 ml Metoprolol Succinate (Toprol Xl) 50 mg PO DAILY [facility] Last Admin: 08/13/18 09:37 Dose: 50 mg Nitroglycerin (Nitro-Bid 2% Oint) 1 ea TOP Q6H [facility] Last Admin: 08/13/18 12:30 Dose: 1 ea Nystatin (Nystatin Oral Susp) 5 ml PO QID [facility] Last Admin: 08/13/18 17:20 Dose: 5 ml Oxycodone HCl (Oxycodone Immediate Release Tab) 5 mg PO Q6 PRN PRN Reason: Pain, moderate (4-7) Last Admin: 08/13/18 07:44 Dose: 5 mg Rosuvastatin Calcium (Crestor) 10 mg PO HS [facility] Last Admin: 08/12/18 22:14 Dose: 10 mg Saccharomyces Boulardii (Florastor) 250 mg PO BID [facility] Last Admin: 08/13/18 17:20 Dose: 250 mg Sodium Chloride ([place] Baby Saline 30 Ml) 0 ml MICHAEL TID [facility] Last Admin: 08/13/18 13:35 Dose: 1 spr Warfarin Sodium (Coumadin) 2 mg PO 1800 ONE Stop: 08/13/18 18:01 Last Admin: 08/13/18 17:20 Dose: 2 mg - Labs Labs: 08/13/18 06:22 08/13/18 06:22 PT 30.2 SECONDS (9.7-12.2) H D 08/13/18 06:22 INR 2.8 D 08/13/18 06:22 APTT 32 SECONDS (21-34) 08/13/18 06:22 - Constitutional Appears: No Acute Distress - Head Exam Head Exam: ATRAUMATIC, NORMAL INSPECTION Additional comments: left sided frontal hematoma, continuing to improve - Eye Exam Eye Exam: EOMI Pupil Exam: PERRL - ENT Exam ENT Exam: Mucous Membranes Moist - Cardiovascular Exam Cardiovascular Exam: REGULAR RHYTHM, +S1, +S2 - GI/Abdominal Exam GI & Abdominal Exam: Normal Bowel Sounds. absent: Guarding, Rigid - Extremities Exam Extremities Exam: Normal Inspection. absent: Calf Tenderness - Neurological Exam Neurological Exam: Alert, Awake, Oriented x3 - Skin Skin Exam: Normal Color, Warm Assessment and Plan - Assessment and Plan (Free Text) Assessment: This is a 48 year old female with PMH of anxiety presenting to the ED s/p witnessed syncopal episode after return from [place] on bus. Plan: B/L P.E. -continue coumadin 2mg, INR is 2.8 today. 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 Small B/L pleural effusions -echo showed LVEF 50-55%, mild to moderate TR and pulmonary hypertension -no need for IVC filter at this time -initial CTA showed diffuse bilateral pulmonary emboli of B/L central and segmental pulmonary arteries, pulmonary venous congestion compatible with CHF vs left basilar atelectasis vs pulmonary infarct -LE duplex shows left acute thrombosis of the left common femoral vein -s/p respiratory arrest, ACLS performed Afib -EKG on admission showed afib with RVR at 146bpm, uncertain if new finding Case discussed with attending, further recommendations per Dr. Ba
[2018-08-14] MEDS: Cefepime 1 GM in Sodium Chloride 0.9% 100 ML IVPB SCH (00:03)
[2018-08-14] MEDS: Albuterol-Ipratrop 3 mg / 0.5 (3 ml) UD INH SCH ×4 (01:08→19:51)
[2018-08-14 01:53] LABS: CARDIOLIPIN AB (IGA) <11 APL (<=11); CARDIOLIPIN AB (IGG) <14 GPL (<=14)
[2018-08-14 03:57] LABS: B2 GLYCOPROTEIN I AB(IGA) <9 SAU (<=20); B2 GLYCOPROTEIN I AB(IGG) <9 SGU (<=20); B2 GLYCOPROTEIN I AB(IGM) <9 SMU (<=20)
[2018-08-14 05:16] LABS: CARDIOLIPIN AB (IGM) <12 MPL (<=12); PHOSPHATIDYLSERINE AB IGA <20 U/mL (<20); PHOSPHATIDYLSERINE AB IGG <10 U/mL (<10); PHOSPHATIDYLSERINE AB IGM <25 U/mL (<25)
[2018-08-14] MEDS: Nitroglycerin 2% Ointment Foilpak UD TOP SCH ×4 (05:36→23:55)
[2018-08-14 07:03] LABS: BASO # 0.1 K/uL (0.0-0.2); BASO % 1.6 % (0.0-2.0); EOS # 0.1 K/uL (0.0-0.7); EOS % 1.6 % (0.0-4.0); HEMOGLOBIN 8.6 g/dL (11.0-16.0); LYMPH # 1.2 K/uL (1.0-4.3); LYMPH % 18.8 % (20.0-40.0); MEAN CELL VOLUME 81.5 fL (81.0-99.0); MEAN CORPUSCULAR HEMOGLOBIN 27.4 pg (27.0-31.0); MEAN CORPUSCULAR HGB CONC 33.6 g/dL (33.0-37.0); MEAN PLATELET VOLUME 10.1 fL (7.2-11.7); MONO # 0.8 K/uL (0.0-0.8); NEUT # 4.2 K/uL (1.8-7.0); NRBC % 0.2 % (0.0-2.0); RBC 3.15 Mil/uL (3.80-5.20); WHITE BLOOD COUNT 6.4 K/uL (4.8-10.8)
[2018-08-14 07:09] LABS: ALB/GLOB RATIO 0.9 (1.0-2.1); ALBUMIN 3.1 g/dL (3.5-5.0); CALCIUM 8.4 mg/dl (8.6-10.4)
[2018-08-14] MEDS: oxyCODONE 5 mg Immediate Release Tab PO PRN ×2 (07:24→23:13)
[2018-08-14 07:55] LABS: COMPLEMENT C4 18.3 mg/dL (14.0-44.0)
[2018-08-14] MEDS: Benzocaine/Menthol (Cepacol) Lozenge MT PRN ×4 (08:06→20:31)
--- NOTE | 2018-08-14 08:24 | RAD ---
Date of service: 08/14/2018 HISTORY: Tachypnea. COMPARISON: No prior. FINDINGS: LUNGS: Moderate to severe venous congestion with prominent bibasilar airspace opacities. PLEURA: Small bilateral pleural effusions. CARDIOVASCULAR: No atherosclerotic calcification present Cardiomegaly. OSSEOUS STRUCTURES: No significant abnormalities. VISUALIZED UPPER ABDOMEN: Normal. OTHER FINDINGS: Interval removal of a left-sided central venous catheter. Right central venous catheter unchanged. Clinical correlation. IMPRESSION: Moderate to severe venous congestion with prominent bibasilar airspace opacities.Small bilateral pleural effusions. Cardiomegaly.
[2018-08-14] MEDS: Saccharomyces Boulardi 250 mg Cap PO SCH ×2 (09:29→17:38)
[2018-08-14] MEDS: Nystatin 100,000 Units/ml Oral Susp 5 ml UD PO SCH ×4 (09:29→21:33)
[2018-08-14] MEDS: Metoprolol Succinate 50 mg XL Tab PO SCH (09:35)
[2018-08-14] MEDS: Sodium Chloride Nasal 0.65% Soln (30ml) NAS SCH ×3 (09:38→17:51)
[2018-08-14 09:46] LABS: ALBUMIN 26.8 Relative %; ALPHA-1 GLOBULIN 6.3 Relative %
--- NOTE | 2018-08-14 10:00 | CP.PCM.PN ---
Subjective - Date & Time of Evaluation Date of Evaluation: 08/14/18 Time of Evaluation: 09:00 - Subjective Subjective: Nephrology Progress Note for Dr. Henson Patient was seen and examined at bedside. No acute events overnight. Patient c/o heavy pressure on her chest but denies any pain or sob. She is urinating and eating well. No other complaints, 12 Point ROS performed and neg other than stated above. Objective - Vital Signs/Intake and Output Vital Signs (last 24 hours): Temp Pulse Resp BP Pulse Ox 98.3 F 117 H 20 104/69 97 08/14/18 09:06 08/14/18 08:00 08/14/18 08:00 08/14/18 08:00 08/14/18 08:00 Intake and Output: 08/14/18 08/14/18 06:59 18:59 Intake Total 320 Output Total 600 Balance -280 - Medications Medications: Current Medications Acetaminophen (Tylenol 325mg Tab) 650 mg PO Q6 PRN PRN Reason: Fever >100.4 F Last Admin: 08/14/18 08:06 Dose: 650 mg Albuterol/Ipratropium (Duoneb 3 Mg/0.5 Mg (3 Ml) Ud) 3 ml INH RQ6 [facility] Last Admin: 08/14/18 08:15 Dose: 3 ml Alprazolam (Xanax) 0.25 mg PO TID PRN PRN Reason: Anxiety Stop: 08/18/18 15:46 Last Admin: 08/13/18 23:42 Dose: 0.25 mg Aspirin (Aspirin Chewable) 81 mg PO DAILY [facility] Last Admin: 08/14/18 09:29 Dose: 81 mg Benzocaine/Menthol (Cepacol Sore Throat) 1 naheed MT Q4 PRN PRN Reason: Sore Throat Last Admin: 08/14/18 08:06 Dose: 1 naheed Clopidogrel Bisulfate (Plavix) 75 mg PO DAILY [facility] Last Admin: 08/14/18 09:30 Dose: 75 mg Famotidine (Pepcid) 20 mg PO DAILY [facility] Last Admin: 08/14/18 09:30 Dose: 20 mg Guaifenesin (Robitussin) 100 mg PO Q4H PRN PRN Reason: Cough Last Admin: 08/12/18 22:15 Dose: 100 mg Cefepime HCl 1 gm/ Sodium (Chloride) 100 mls @ 100 mls/hr IVPB Q24H [facility]; Protocol Last Admin: 08/14/18 00:03 Dose: 100 mls/hr Lidocaine HCl (Lidocaine 2% Viscous) 5 ml PO Q3H PRN PRN Reason: Other Last Admin: 08/07/18 22:31 Dose: 5 ml Metoprolol Succinate (Toprol Xl) 50 mg PO DAILY [facility] Last Admin: 08/14/18 09:35 Dose: 50 mg Nitroglycerin (Nitro-Bid 2% Oint) 1 ea TOP Q6H [facility] Last Admin: 08/14/18 05:36 Dose: 1 ea Nystatin (Nystatin Oral Susp) 5 ml PO QID [facility] Last Admin: 08/14/18 09:29 Dose: 5 ml Oxycodone HCl (Oxycodone Immediate Release Tab) 5 mg PO Q6 PRN PRN Reason: Pain, moderate (4-7) Last Admin: 08/14/18 07:24 Dose: 5 mg Rosuvastatin Calcium (Crestor) 10 mg PO HS [facility] Last Admin: 08/13/18 21:51 Dose: 10 mg Saccharomyces Boulardii (Florastor) 250 mg PO BID [facility] Last Admin: 08/14/18 09:29 Dose: 250 mg Sodium Chloride ([place] Baby Saline 30 Ml) 0 ml MICHAEL TID [facility] Last Admin: 08/14/18 09:38 Dose: 2 spr - Labs Labs: 08/14/18 06:46 08/14/18 06:46 PT 30.2 SECONDS (9.7-12.2) H D 08/13/18 06:22 INR 2.8 D 08/13/18 06:22 APTT 32 SECONDS (21-34) 08/13/18 06:22 - Constitutional Appears: No Acute Distress - Head Exam Head Exam: ATRAUMATIC, NORMOCEPHALIC - Eye Exam Eye Exam: EOMI - ENT Exam ENT Exam: Mucous Membranes Moist - Respiratory Exam Respiratory Exam: Clear to Ausculation Bilateral. absent: Rales, Rhonchi, Wheezes - Cardiovascular Exam Cardiovascular Exam: Tachycardia, +S1, +S2 - GI/Abdominal Exam GI & Abdominal Exam: Soft. absent: Distended, Tenderness - Extremities Exam Extremities Exam: absent: Calf Tenderness, Pedal Edema - Neurological Exam Neurological Exam: Alert, Awake, CN II-XII Intact - Psychiatric Exam Psychiatric exam: Normal Mood Assessment and Plan - Assessment and Plan (Free Text) Assessment: 48 year old female with a past medical history of anxiety, possible UTI, on OCP who presented following a syncopal episode initially found to be in atrial fibrillation. Patient developed respiratory stress with bradycardia. Patient was intubated 2/2 hypoxemic resp failure due to pneumonia and PE now s/p extubation. 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
--- NOTE | 2018-08-14 11:21 | CP.PCM.PN ---
Addendum entered and electronically signed by Danna Oliva 08/14/18 13:15: physical exam cont: gen: No acute distress eyes: EOMI mouth: Mucosa moist, thrush noted in oral cavity cardio: Tachycardic, regular rhythm, S1 S2 pulm: rales B/L, no wheeze, no respiratory distress abd: soft, non-distended, non tender to palpation, + bowel sounds extremities: non pitting edema B/L, no calf tenderness skin: ecchymosis across chest anteriorly, dorsal upper extremities Original Note: <Danna Oliva - Last Filed: 08/14/18 13:11> Subjective - Date & Time of Evaluation Date of Evaluation: 08/14/18 Time of Evaluation: 07:45 - Subjective Subjective: Patient examined at bedside with daughter in room. No acute events overnight. Patient reports she is urinating well, 3 times overnight. Patient reports one episode of dark maroon stool, not painful. Patient reports she has been ambulating with PT although still weak. Pt reports she still has tightness in her chest, worse with deep inspiration. Pt reports improvement everyday. Denies palpitations, abdominal pain, N/V/D Objective - Vital Signs/Intake and Output Vital Signs (last 24 hours): Temp Pulse Resp BP Pulse Ox 98.3 F 117 H 20 104/69 97 08/14/18 09:06 08/14/18 08:00 08/14/18 08:00 08/14/18 08:00 08/14/18 08:00 Intake and Output: 08/14/18 08/14/18 06:59 18:59 Intake Total 320 Output Total 600 Balance -280 - Medications Medications: Current Medications Acetaminophen (Tylenol 325mg Tab) 650 mg PO Q6 PRN PRN Reason: Fever >100.4 F Last Admin: 08/14/18 08:06 Dose: 650 mg Albuterol/Ipratropium (Duoneb 3 Mg/0.5 Mg (3 Ml) Ud) 3 ml INH RQ6 [facility] Last Admin: 08/14/18 08:15 Dose: 3 ml Alprazolam (Xanax) 0.25 mg PO TID PRN PRN Reason: Anxiety Stop: 08/18/18 15:46 Last Admin: 08/13/18 23:42 Dose: 0.25 mg Aspirin (Aspirin Chewable) 81 mg PO DAILY [facility] Last Admin: 08/14/18 09:29 Dose: 81 mg Benzocaine/Menthol (Cepacol Sore Throat) 1 naheed MT Q4 PRN PRN Reason: Sore Throat Last Admin: 08/14/18 08:06 Dose: 1 naheed Clopidogrel Bisulfate (Plavix) 75 mg PO DAILY [facility] Last Admin: 08/14/18 09:30 Dose: 75 mg Famotidine (Pepcid) 20 mg PO DAILY [facility] Last Admin: 08/14/18 09:30 Dose: 20 mg Guaifenesin (Robitussin) 100 mg PO Q4H PRN PRN Reason: Cough Last Admin: 08/12/18 22:15 Dose: 100 mg Cefepime HCl 1 gm/ Sodium (Chloride) 100 mls @ 100 mls/hr IVPB Q24H [facility]; Protocol Last Admin: 08/14/18 00:03 Dose: 100 mls/hr Lidocaine HCl (Lidocaine 2% Viscous) 5 ml PO Q3H PRN PRN Reason: Other Last Admin: 08/07/18 22:31 Dose: 5 ml Metoprolol Succinate (Toprol Xl) 50 mg PO DAILY [facility] Last Admin: 08/14/18 09:35 Dose: 50 mg Nitroglycerin (Nitro-Bid 2% Oint) 1 ea TOP Q6H [facility] Last Admin: 08/14/18 05:36 Dose: 1 ea Nystatin (Nystatin Oral Susp) 5 ml PO QID [facility] Last Admin: 08/14/18 09:29 Dose: 5 ml Oxycodone HCl (Oxycodone Immediate Release Tab) 5 mg PO Q6 PRN PRN Reason: Pain, moderate (4-7) Last Admin: 08/14/18 07:24 Dose: 5 mg Rosuvastatin Calcium (Crestor) 10 mg PO HS [facility] Last Admin: 08/13/18 21:51 Dose: 10 mg Saccharomyces Boulardii (Florastor) 250 mg PO BID [facility] Last Admin: 08/14/18 09:29 Dose: 250 mg Sodium Chloride ([place] Baby Saline 30 Ml) 0 ml MICHAEL TID [facility] Last Admin: 08/14/18 09:38 Dose: 2 spr - Labs Labs: 08/14/18 06:46 08/14/18 06:46 PT 30.2 SECONDS (9.7-12.2) H D 08/13/18 06:22 INR 2.8 D 08/13/18 06:22 APTT 32 SECONDS (21-34) 08/13/18 06:22 - Constitutional Appears: No Acute Distress - Head Exam Head Exam: ATRAUMATIC, NORMAL INSPECTION, NORMOCEPHALIC Assessment and Plan - Assessment and Plan (Free Text) Assessment: 48 year old female with a past medical history of anxiety, possible UTI, on OCP who presented to [facility] after a syncopal episode at home and found to be in atrial fibrillation and was given cardizem and morphine. Patient then went into respiratory stress with bradycardia. ACLS protocol was initiated. Patient was intubated and ICU was consulted. Labs revealed a severe metabolic lactic acidosis, acute hypoxemic respiratory failure, and leukocytosis of 39,000 with 23 % bands despite being given fluids and CTA showed diffuse bilateral PE while duplex US of the LE showed an occlusive thrombus in the left common femoral vein. Acute renal failure secondary to septic shock and hypo-perfusion - Becerril removed 08/11/18 - pt producing urine, improving;600cc/24hrs - 3.9 today - Continue to monitor Cr to monitor for kidney function improvement - Dialysis planned for Friday08/14/18, per nephro recr NSTEMI - Dr. 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 - Medications * Asa 81mg daily * Plavix 75mg daily * Metoprolol XL 50mg po daily - f/u vasculitis workup - [place] negative - Complement 3 & 4: Low - 08/13- C3 still low, C4 WNL Pneumonia - Chest CT (08/03/18): Evidence of multifocal pneumonia - Continue Cefepime 1gm q24h - Florastor 250mg bid B/L PE - Duplex 07/27 reveals DVT in left femoral vein - CTA showed diffuse bilateral pulmonary emboli of B/L central and segmental pulmonary arteries, pulmonary venous congestion compatible with CHF vs left basilar atelectasis vs pulmonary infarct - D-dimer > 5250, PT/INR/PTT elevated, elevated fibrinogen products - heparin drip discontinued - INR 3.3 on coumadin 2mg overnight hold PM coumadin, f/u am INR - Echo showed LVEF 50-55%, mild to moderate TR and pulmonary hypertension Afib - EKG on admission showed afib with RVR at 146bpm - Warfarin held tonight for INR of 3.3 Hypocalcemia in a critically ill patient - Corrected Ca is 6.9 - 2 grams of Calcium Gluconate given - Ca is stable 8.8 - continue to monitor Enteritis - resolved - flagyl d/c <Torni Velez H - Last Filed: 08/14/18 14:43> Objective - Vital Signs/Intake and Output Vital Signs (last 24 hours): Temp Pulse Resp BP Pulse Ox 97.9 F 118 H 20 104/69 97 08/14/18 12:00 08/14/18 10:00 08/14/18 08:00 08/14/18 08:00 08/14/18 08:00 Intake and Output: 08/14/18 08/14/18 06:59 18:59 Intake Total 320 Output Total 600 Balance -280 - Medications Medications: Current Medications Acetaminophen (Tylenol 325mg Tab) 650 mg PO Q6 PRN PRN Reason: Fever >100.4 F Last Admin: 08/14/18 08:06 Dose: 650 mg Albuterol/Ipratropium (Duoneb 3 Mg/0.5 Mg (3 Ml) Ud) 3 ml INH RQ6 [facility] Last Admin: 08/14/18 13:10 Dose: 3 ml Alprazolam (Xanax) 0.25 mg PO TID PRN PRN Reason: Anxiety Stop: 08/18/18 15:46 Last Admin: 08/13/18 23:42 Dose: 0.25 mg Aspirin (Aspirin Chewable) 81 mg PO DAILY [facility] Last Admin: 08/14/18 09:29 Dose: 81 mg Benzocaine/Menthol (Cepacol Sore Throat) 1 naheed MT Q4 PRN PRN Reason: Sore Throat Last Admin: 08/14/18 12:13 Dose: 1 naheed Clopidogrel Bisulfate (Plavix) 75 mg PO DAILY [facility] Last Admin: 08/14/18 09:30 Dose: 75 mg Famotidine (Pepcid) 20 mg PO DAILY [facility] Last Admin: 08/14/18 09:30 Dose: 20 mg Guaifenesin (Robitussin) 100 mg PO Q4H PRN PRN Reason: Cough Last Admin: 08/12/18 22:15 Dose: 100 mg Cefepime HCl 1 gm/ Sodium (Chloride) 100 mls @ 100 mls/hr IVPB Q24H [facility]; Protocol Last Admin: 08/14/18 00:03 Dose: 100 mls/hr Lidocaine HCl (Lidocaine 2% Viscous) 5 ml PO Q3H PRN PRN Reason: Other Last Admin: 08/07/18 22:31 Dose: 5 ml Metoprolol Succinate (Toprol Xl) 50 mg PO DAILY [facility] Last Admin: 08/14/18 09:35 Dose: 50 mg Nitroglycerin (Nitro-Bid 2% Oint) 1 ea TOP Q6H [facility] Last Admin: 08/14/18 12:13 Dose: 1 ea Nystatin (Nystatin Oral Susp) 5 ml PO QID [facility] Last Admin: 08/14/18 14:08 Dose: 5 ml Oxycodone HCl (Oxycodone Immediate Release Tab) 5 mg PO Q6 PRN PRN Reason: Pain, moderate (4-7) Last Admin: 08/14/18 07:24 Dose: 5 mg Rosuvastatin Calcium (Crestor) 10 mg PO HS [facility] Last Admin: 08/13/18 21:51 Dose: 10 mg Saccharomyces Boulardii (Florastor) 250 mg PO BID [facility] Last Admin: 08/14/18 09:29 Dose: 250 mg Sodium Chloride ([place] Baby Saline 30 Ml) 0 ml MICHAEL TID [facility] Last Admin: 08/14/18 14:09 Dose: 2 spr - Labs Labs: 08/14/18 06:46 08/14/18 06:46 PT 36.4 SECONDS (9.7-12.2) H D 08/14/18 11:18 INR 3.3 08/14/18 11:18 APTT 32 SECONDS (21-34) 08/13/18 06:22 Attending/Attestation - Attestation I have personally seen and examined this patient.: Yes I have fully participated in the care of the patient.: Yes I have reviewed all pertinent clinical information, including history, physical exam and plan: Yes Notes (Text): 08/14/18 14:43 Medical attending: Patient was seen and examined by me, agrees the above note by the medical communication specialist. Family member was present at bedside faithfully. There is some discussion if she's given need additional dialysis today. The cr eatinine is 3.9 today she continues to produce urine. She remains on aspirin, statin and Plavix for the recent positive troponins. Currently she is on Coumadin, the INR was 3.3 today work hold tonight's dose Coumadin. Thank you very much Torin Velez
[2018-08-14 11:25] LABS: PROTHROMBIN TIME 36.4 SECONDS (9.7-12.2)
[2018-08-14 11:34] LABS: INR 3.3
[2018-08-14] MEDS: guaiFENesin 100 mg/5 ml Syrup UD PO PRN (20:41)
[2018-08-15] MEDS: Cefepime 1 GM in Sodium Chloride 0.9% 100 ML IVPB SCH (00:56)
[2018-08-15] MEDS: Albuterol-Ipratrop 3 mg / 0.5 (3 ml) UD INH SCH ×2 (01:47→07:28)
[2018-08-15] MEDS: Nitroglycerin 2% Ointment Foilpak UD TOP SCH ×4 (06:11→23:50)
[2018-08-15] MEDS: guaiFENesin 100 mg/5 ml Syrup UD PO PRN ×3 (06:50→16:08)
[2018-08-15 08:37] LABS: EOS # 0.1 K/uL (0.0-0.7); MONO # 0.6 K/uL (0.0-0.8); NRBC % 0.1 % (0.0-2.0)
[2018-08-15 08:47] LABS: BASO # 0.2 K/uL (0.0-0.2); BASO % 3.1 % (0.0-2.0); EOS % 1.5 % (0.0-4.0); LYMPH # 1.4 K/uL (1.0-4.3); LYMPH % 23.8 % (20.0-40.0); MEAN CELL VOLUME 81.1 fL (81.0-99.0); MEAN CORPUSCULAR HEMOGLOBIN 26.9 pg (27.0-31.0); MEAN CORPUSCULAR HGB CONC 33.2 g/dL (33.0-37.0); MEAN PLATELET VOLUME 10.5 fL (7.2-11.7); MONO % 10.6 % (0.0-10.0); NEUT # 3.5 K/uL (1.8-7.0); PLATELET COUNT 192 K/uL (130-400); RBC 3.35 Mil/uL (3.80-5.20); WHITE BLOOD COUNT 5.8 K/uL (4.8-10.8)
[2018-08-15 08:53] LABS: ALB/GLOB RATIO 0.9 (1.0-2.1); ALBUMIN 3.2 g/dL (3.5-5.0); CALCIUM 8.5 mg/dl (8.6-10.4)
[2018-08-15 08:56] LABS: INR 2.4; PROTHROMBIN TIME 25.8 SECONDS (9.7-12.2)
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
[2018-08-15] MEDS: Metoprolol Succinate 50 mg XL Tab PO SCH (09:31)
[2018-08-15] MEDS: Saccharomyces Boulardi 250 mg Cap PO SCH ×2 (09:32→17:18)
[2018-08-15] MEDS: Sodium Chloride Nasal 0.65% Soln (30ml) NAS SCH ×3 (09:32→17:18)
[2018-08-15] MEDS: Nystatin 100,000 Units/ml Oral Susp 5 ml UD PO SCH ×4 (09:32→21:15)
[2018-08-15] MEDS: Benzocaine/Menthol (Cepacol) Lozenge MT PRN ×2 (09:42→21:20)
[2018-08-15 10:35] LABS: BANDS 2 % (0-2); BASOPHIL 1 % (0-2); EOSINOPHIL 1 % (0-4); LYMPHOCYTE 27 % (20-40); MONOCYTE 11 % (0-10); NEUTROPHIL 58 % (50-75); PLATELET ESTIMATE NORMAL (NORMAL); TOTAL CELLS COUNTED 100
[2018-08-15 10:36] LABS: ANISOCYTOSIS MODERATE; HYPOCHROMIC SLIGHT; POIKILOCYTOSIS SLIGHT; SCHISTOCYTES SLIGHT
[2018-08-15 10:37] LABS: POLYCHROMIC SLIGHT
[2018-08-15] MEDS: Fluconazole IV 200mg/100 ml NS 100 MG in Premixed IV 1 EA IVPB SCH (11:02)
[2018-08-15] MEDS: Albuterol-Ipratrop 3 mg / 0.5 (3 ml) UD INH PRN (17:06)
[2018-08-15] MEDS: oxyCODONE 5 mg Immediate Release Tab PO PRN ×2 (17:16→23:50)
[2018-08-16] MEDS: Cefepime 1 GM in Sodium Chloride 0.9% 100 ML IVPB SCH (00:46)
[2018-08-16] MEDS: guaiFENesin 100 mg/5 ml Syrup UD PO PRN ×2 (03:01→13:50)
[2018-08-16] MEDS: oxyCODONE 5 mg Immediate Release Tab PO PRN ×3 (05:59→21:32)
[2018-08-16] MEDS: Nitroglycerin 2% Ointment Foilpak UD TOP SCH ×3 (05:59→17:29)
[2018-08-16 08:40] LABS: INR 2.5; PROTHROMBIN TIME 27.6 SECONDS (9.7-12.2)
[2018-08-16 08:47] LABS: BASO # 0.2 K/uL (0.0-0.2); BASO % 3.1 % (0.0-2.0); EOS # 0.1 K/uL (0.0-0.7); EOS % 1.8 % (0.0-4.0); HEMOGLOBIN 8.6 g/dL (11.0-16.0); LYMPH # 1.3 K/uL (1.0-4.3); LYMPH % 22.3 % (20.0-40.0); MEAN CORPUSCULAR HEMOGLOBIN 26.7 pg (27.0-31.0); MEAN CORPUSCULAR HGB CONC 32.9 g/dL (33.0-37.0); MONO # 0.8 K/uL (0.0-0.8); MONO % 13.9 % (0.0-10.0); NEUT # 3.3 K/uL (1.8-7.0); NEUT % 58.9 % (50.0-75.0); PLATELET COUNT 166 K/uL (130-400); RBC 3.21 Mil/uL (3.80-5.20); RED CELL DISTRIBUTION WIDTH 17.8 % (11.5-14.5); WHITE BLOOD COUNT 5.6 K/uL (4.8-10.8)
[2018-08-16 08:54] LABS: ALB/GLOB RATIO 0.8 (1.0-2.1); CALCIUM 8.6 mg/dl (8.6-10.4)
[2018-08-16] MEDS: Fluconazole IV 200mg/100 ml NS 100 MG in Premixed IV 1 EA IVPB SCH (09:28)
[2018-08-16] MEDS: Saccharomyces Boulardi 250 mg Cap PO SCH ×2 (09:28→17:29)
[2018-08-16] MEDS: Nystatin 100,000 Units/ml Oral Susp 5 ml UD PO SCH ×2 (09:28→13:50)
[2018-08-16] MEDS: Metoprolol Succinate 50 mg XL Tab PO SCH (09:28)
[2018-08-16] MEDS: Sodium Chloride Nasal 0.65% Soln (30ml) NAS SCH ×3 (09:29→17:29)
[2018-08-16 09:34] LABS: BANDS 1 % (0-2); BASOPHIL 1 % (0-2); LYMPHOCYTE 22 % (20-40); MONOCYTE 12 % (0-10); NEUTROPHIL 64 % (50-75); PLATELET ESTIMATE NORMAL (NORMAL); TOTAL CELLS COUNTED 100
[2018-08-16 09:39] LABS: HYPOCHROMIC SLIGHT
[2018-08-16 09:40] LABS: ANISOCYTOSIS MODERATE; POLYCHROMIC SLIGHT
--- NOTE | 2018-08-16 10:59 | CP.PCM.PN ---
Subjective - Date & Time of Evaluation Date of Evaluation: 08/16/18 Time of Evaluation: 10:40 - Subjective Subjective: Patient was seen and examined by me. Her family member is faithfully at bedside. When I saw her this AM she was not in any acute distress. Overnight I understand that she had an episode of chest pain. Will check a troponin. Today family reports that patient has been making urine and the color is clear. Also creatine this morning has decreased as well. INR was 2.5 today Denied shortness of breath, denied abdominal pain, denied headache today. Objective - Vital Signs/Intake and Output Vital Signs (last 24 hours): Temp Pulse Resp BP Pulse Ox 99.5 F 115 H 20 135/85 96 08/16/18 07:49 08/16/18 07:56 08/16/18 07:49 08/16/18 07:49 08/16/18 07:49 Intake and Output: 08/16/18 08/16/18 06:59 18:59 Intake Total 340 Balance 340 - Medications Medications: Current Medications Acetaminophen (Tylenol 325mg Tab) 650 mg PO Q6 PRN PRN Reason: Fever >100.4 F Last Admin: 08/14/18 23:55 Dose: 650 mg Albuterol/Ipratropium (Duoneb 3 Mg/0.5 Mg (3 Ml) Ud) 3 ml INH RQ6 PRN PRN Reason: Shortness of Breath Last Admin: 08/15/18 17:06 Dose: 3 ml Alprazolam (Xanax) 0.25 mg PO TID PRN PRN Reason: Anxiety Stop: 08/18/18 15:46 Last Admin: 08/16/18 03:01 Dose: 0.25 mg Aspirin (Aspirin Chewable) 81 mg PO DAILY [facility] Last Admin: 08/16/18 09:28 Dose: 81 mg Benzocaine/Menthol (Cepacol Sore Throat) 1 naheed MT Q4 PRN PRN Reason: Sore Throat Last Admin: 08/15/18 21:20 Dose: 1 naheed Clopidogrel Bisulfate (Plavix) 75 mg PO DAILY [facility] Last Admin: 08/16/18 09:28 Dose: 75 mg Famotidine (Pepcid) 20 mg PO DAILY [facility] Last Admin: 08/16/18 09:28 Dose: 20 mg Guaifenesin (Robitussin) 100 mg PO Q4H PRN PRN Reason: Cough Last Admin: 08/16/18 03:01 Dose: 100 mg Cefepime HCl 1 gm/ Sodium (Chloride) 100 mls @ 100 mls/hr IVPB Q24H [facility]; Protocol Last Admin: 08/16/18 00:46 Dose: 100 mls/hr Fluconazole 100 mg/ (Miscellaneous) 50 mls @ 100 mls/hr IVPB DAILY [facility]; Protocol Last Admin: 08/16/18 09:28 Dose: 100 mls/hr Lidocaine HCl (Lidocaine 2% Viscous) 5 ml PO Q3H PRN PRN Reason: Other Last Admin: 08/14/18 20:34 Dose: 5 ml Metoprolol Succinate (Toprol Xl) 50 mg PO DAILY [facility] Last Admin: 08/16/18 09:28 Dose: 50 mg Nitroglycerin (Nitro-Bid 2% Oint) 1 ea TOP Q6H [facility] Last Admin: 08/16/18 05:59 Dose: 1 ea Nystatin (Nystatin Oral Susp) 5 ml PO QID [facility]CLUD[facility] Last Admin: 08/16/18 09:28 Dose: 5 ml Oxycodone HCl (Oxycodone Immediate Release Tab) 5 mg PO Q6 PRN PRN Reason: Pain, moderate (4-7) Last Admin: 08/16/18 05:59 Dose: 5 mg Rosuvastatin Calcium (Crestor) 10 mg PO HS [facility] Last Admin: 08/15/18 21:15 Dose: 10 mg Saccharomyces Boulardii (Florastor) 250 mg PO BID [facility] Last Admin: 08/16/18 09:28 Dose: 250 mg Sodium Chloride ([place] Baby Saline 30 Ml) 0 ml MICHAEL TID COUNT INCLUDES [facility] Last Admin: 08/16/18 09:29 Dose: 2 spr - Labs Labs: 08/16/18 08:24 08/16/18 08:24 PT 27.6 SECONDS (9.7-12.2) H 08/16/18 08:24 INR 2.5 08/16/18 08:24 APTT 32 SECONDS (21-34) 08/13/18 06:22 - Constitutional Appears: No Acute Distress, Unkempt, Chronically Ill - Head Exam Additional comments: As previously mentioned echymosis periorbital area and also neck area - Eye Exam Eye Exam: EOMI, Periorbital tenderness Additional comments: As mentioned previously there is echymosis around periorbital area No active bleeding - ENT Exam ENT Exam: Mucous Membranes Moist - Cardiovascular Exam Cardiovascular Exam: Tachycardia - GI/Abdominal Exam GI & Abdominal Exam: Soft, Normal Bowel Sounds. absent: Firm, Guarding, Rigid, Tenderness - Neurological Exam Neurological Exam: Alert, Awake, Oriented x3 Neuro motor strength exam: Left Upper Extremity: 5, Right Upper Extremity: 5 - Skin Skin Exam: Normal Color, Warm Assessment and Plan - Assessment and Plan (Free Text) Assessment: This is a 48 year old female with a past medical history of anxiety, possible UTI, on OCP who is originally from [place]. One month prior to admission came to [place] and reportedly was already having shortness of breath. She had just went to [place] then back on a bus ride when later in the day she collasped in the lobby of family member's apartment. She regained conciousness but again loss conciousness when brought to hospital. She was found to be in rapid atrial fibrillation then went into respiratory stress with bradycardia. ACLS protocol was initiated and she required intubattion. Patient was intubated and ICU was consulted. Labs revealed a severe metabolic lactic acidosis, acute hypoxemic respiratory failure, and leukocytosis of 39,000 with 23 % bands despite being given fluids and CTA showed diffuse bilateral PE while duplex US of the LE showed an occlusive thrombus in the left common femoral vein. As of 08/14 she is now out of the ICU. Her WBC has decrased and she is now producing urine. Hopefully can stop HD soon. 1. NSTEMI 08/16: She again had chest pain last night, currently no chest pain this AM. Will recheck troponins. Otherwise we are continuing with the Plavix, ASA, Crestor, and coumadin when INR is low. 08/15: Please see other notes for Aug 13 and . Per cardiology medical managment only. Currently on Plavix, ASA, Statin. INR 2.8 yesterday, the coumadin was held. 08/12: Per cardiology off of the heparin ggt now. Need oral anticoagulation, yesterday was suggested to start Xarelto however given the kidney function it was decided the patient be started on coumadin instead. 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 Recommend medical management. On ASA and Plavix and statin. The heparin ggt is currently off this morning 08/10: Currently no chest pain. Remains on heparin ggt. Plavix, ASA, Statin Cardiology is planning on potential cardiac catherization later today. As mentioned previously the patient was transferred back to the ICU on 08/08 after chest pain and elevated troponins. 2. Bilateral PE and DVT 08/15: Please also see other notes for August 13 and . Today waiting for INR. Yesterday was 2.8 and she is on small doses of coumadin. Hgb is stable for now, but she has had blood transfusions in the past. 08/12: Now on coumdain. Off of the heparin ggt. 08/10: Currently remains on the heparin ggt. Currently on nasal cannula and SpO2s have been stable. As mentioned in previous notes when she was first admitted she was in ICU intubated from respiratory arrest/ACLS and then extubated on 08/01 Continue IV heparin Breathing is improving. Saturating good on 2L NC CXR 08/07: venous congestion, patchy infiltrate, pleural effusion R>L CTA chest showed diffuse bilateral pulmonary emboli involving bilateral central and segmental pulmonary arteries, cardiac silhouette enlarged, there is evidence of pulmonary venous congestion compatible with CHF, left basilar atelectasis vs pulmonary infarct (official report pending) LE duplex shows left acute thrombosis of the left common femoral vein Echo showed LVEF 50-55%, mild to moderate TR and pulmonary hypertension 3.Pneumonia 08/15: Repeat CXRAY today. She is having cough. 08/12: Recheck CXRAY today. Remains on the IV abx. 08/11: Remains afebrile and cultures remain negative. WBC remains stable 08/10: Currently on IV cefpime and IV flagyl. The WBC is stable, afebrile at this moment. 4. Acute renal failure 08/15: Pending AM labs, monitor creatine. Family reports patient is producing a lot of urine, however only 600 recorded. 08/12: No longer has the brady cathter. Bedside commode. 08/11: Creatine decreased to 3.1 and urine out put 1140 08/10: Urine output recorded as 1220. Creatine was 4.5 this AM. Last HD was on Friday Getting dialysis via right perma cath Left TLC, intact with dressing dry 5. Intially Atrial Fibrillation with RVR 08/15: Currently sinus tacycardia in the 110s. Likley secondary to the PE -Initial EKG showed afib with rate of 146 bpm 6.Anxiety Xanax 0.25mg PO TID PRN 7.GI/DVT ppx: -Protonix 40mg IVP Q12H -Florastor 250 BID
[2018-08-16] MEDS: Trolamine Salicylate 10% Cream (85 gm) TOP PRN (17:29)
[2018-08-17] MEDS: Nitroglycerin 2% Ointment Foilpak UD TOP SCH ×5 (00:09→23:34)
[2018-08-17] MEDS: Cefepime 1 GM in Sodium Chloride 0.9% 100 ML IVPB SCH (00:10)
[2018-08-17] MEDS: Trolamine Salicylate 10% Cream (85 gm) TOP PRN ×4 (00:16→20:55)
[2018-08-17] MEDS: oxyCODONE 5 mg Immediate Release Tab PO PRN (03:49)
[2018-08-17] MEDS: guaiFENesin 100 mg/5 ml Syrup UD PO PRN ×3 (03:52→21:55)
--- NOTE | 2018-08-17 07:38 | CP.PCM.PN ---
Subjective - Date & Time of Evaluation Date of Evaluation: 08/16/18 Time of Evaluation: 17:45 - Subjective Subjective: Patient still with chest tightness; no shortness of breath; urinating normally; Objective - Vital Signs/Intake and Output Vital Signs (last 24 hours): Temp Pulse Resp BP Pulse Ox 99.5 F 115 H 20 122/83 95 08/16/18 23:35 08/16/18 23:38 08/16/18 23:35 08/16/18 23:35 08/16/18 23:35 Intake and Output: 08/17/18 08/17/18 06:59 18:59 Intake Total 340 Balance 340 - Medications Medications: Current Medications Acetaminophen (Tylenol 325mg Tab) 650 mg PO Q6 PRN PRN Reason: Fever >100.4 F Last Admin: 08/14/18 23:55 Dose: 650 mg Albuterol/Ipratropium (Duoneb 3 Mg/0.5 Mg (3 Ml) Ud) 3 ml INH RQ6 PRN PRN Reason: Shortness of Breath Last Admin: 08/15/18 17:06 Dose: 3 ml Alprazolam (Xanax) 0.25 mg PO TID PRN PRN Reason: Anxiety Stop: 08/18/18 15:46 Last Admin: 08/16/18 03:01 Dose: 0.25 mg Aspirin (Aspirin Chewable) 81 mg PO DAILY [facility] Last Admin: 08/16/18 09:28 Dose: 81 mg Benzocaine/Menthol (Cepacol Sore Throat) 1 naheed MT Q4 PRN PRN Reason: Sore Throat Last Admin: 08/15/18 21:20 Dose: 1 naheed Clopidogrel Bisulfate (Plavix) 75 mg PO DAILY [facility] Last Admin: 08/16/18 09:28 Dose: 75 mg Famotidine (Pepcid) 20 mg PO DAILY [facility] Last Admin: 08/16/18 09:28 Dose: 20 mg Guaifenesin (Robitussin) 100 mg PO Q4H PRN PRN Reason: Cough Last Admin: 08/17/18 03:52 Dose: 100 mg Cefepime HCl 1 gm/ Sodium (Chloride) 100 mls @ 100 mls/hr IVPB Q24H [facility]; Protocol Last Admin: 08/17/18 00:10 Dose: 100 mls/hr Fluconazole 100 mg/ (Miscellaneous) 50 mls @ 100 mls/hr IVPB DAILY [facility]; Protocol Last Admin: 08/16/18 09:28 Dose: 100 mls/hr Lidocaine HCl (Lidocaine 2% Viscous) 5 ml PO Q3H PRN PRN Reason: Other Last Admin: 08/14/18 20:34 Dose: 5 ml Metoprolol Succinate (Toprol Xl) 50 mg PO DAILY [facility] Last Admin: 08/16/18 09:28 Dose: 50 mg Nitroglycerin (Nitro-Bid 2% Oint) 1 ea TOP Q6H [facility] Last Admin: 08/17/18 06:05 Dose: 1 ea Oxycodone HCl (Oxycodone Immediate Release Tab) 5 mg PO Q6 PRN PRN Reason: Pain, moderate (4-7) Last Admin: 08/17/18 03:49 Dose: 5 mg Rosuvastatin Calcium (Crestor) 10 mg PO HS [facility] Last Admin: 08/16/18 21:28 Dose: 10 mg Saccharomyces Boulardii (Florastor) 250 mg PO BID [facility] Last Admin: 08/16/18 17:29 Dose: 250 mg Sodium Chloride ([place] Baby Saline 30 Ml) 0 ml MICHAEL TID [facility] Last Admin: 08/16/18 17:29 Dose: 1 spr Trolamine Salicylate (Aspercreme) 1 gm TOP Q6H PRN PRN Reason: stiff neck Last Admin: 08/17/18 06:05 Dose: 1 gm - Labs Labs: 08/16/18 08:24 08/16/18 08:24 PT 27.6 SECONDS (9.7-12.2) H 08/16/18 08:24 INR 2.5 08/16/18 08:24 APTT 32 SECONDS (21-34) 08/13/18 06:22 - Constitutional Appears: Non-toxic, No Acute Distress - Eye Exam Eye Exam: Normal appearance - ENT Exam ENT Exam: Mucous Membranes Moist - Respiratory Exam Respiratory Exam: Clear to Ausculation Bilateral. absent: Respiratory Distress - Cardiovascular Exam Cardiovascular Exam: RRR, +S1, +S2 - GI/Abdominal Exam GI & Abdominal Exam: Soft. absent: Distended, Tenderness - Exam Exam: absent: Bladder Distension - Extremities Exam Additional comments: mild/mod lower leg edema b/l - Neurological Exam Neurological Exam: Alert, Awake - Psychiatric Exam Psychiatric exam: Normal Mood. absent: Agitated - Skin Skin Exam: Warm. absent: Cyanosis Assessment and Plan (1) Acute renal failure Assessment & Plan: ATN, now showing signs of resolving with serum creatinine very slowly declining; last HD was early last week; stable volume and electrolyte status; mild metabolic acidosis noted, no need for bicarb replenishment for now; will still need to be monitored closely until renal function comes close to baseline; -avoid nephrotoxic agents; -daily chem panel; -accurate I/O; Status: Acute (2) Acute respiratory failure with hypoxemia Assessment & Plan: Secondary to PE and PNA; hypoxemia resolved; on cefepime for PNA, continue to dose for CrCl < 20; Status: Acute (3) Hypocalcemia Status: Resolved (4) Metabolic acidosis Status: Acute (5) NSTEMI (non-ST elevated myocardial infarction) Status: Acute
[2018-08-17 08:08] LABS: INR 2.3; PROTHROMBIN TIME 25.6 SECONDS (9.7-12.2)
[2018-08-17 08:09] LABS: BASO # 0.2 K/uL (0.0-0.2); BASO % 2.4 % (0.0-2.0); EOS # 0.1 K/uL (0.0-0.7); HEMOGLOBIN 9.2 g/dL (11.0-16.0); LYMPH # 1.7 K/uL (1.0-4.3); LYMPH % 25.7 % (20.0-40.0); MEAN CELL VOLUME 82.2 fL (81.0-99.0); MEAN CORPUSCULAR HEMOGLOBIN 27.1 pg (27.0-31.0); MEAN PLATELET VOLUME 10.1 fL (7.2-11.7); MONO # 0.8 K/uL (0.0-0.8); MONO % 11.8 % (0.0-10.0); NEUT # 3.9 K/uL (1.8-7.0); NEUT % 59.1 % (50.0-75.0); NRBC % 0.1 % (0.0-2.0); RBC 3.38 Mil/uL (3.80-5.20); RED CELL DISTRIBUTION WIDTH 18.2 % (11.5-14.5); WHITE BLOOD COUNT 6.7 K/uL (4.8-10.8)
[2018-08-17 08:13] LABS: ALB/GLOB RATIO 0.8 (1.0-2.1); ALBUMIN 3.3 g/dL (3.5-5.0); CALCIUM 8.9 mg/dl (8.6-10.4)
[2018-08-17] MEDS: Metoprolol Succinate 50 mg XL Tab PO SCH (10:25)
[2018-08-17] MEDS: Saccharomyces Boulardi 250 mg Cap PO SCH ×2 (10:25→17:59)
[2018-08-17] MEDS: Fluconazole IV 200mg/100 ml NS 100 MG in Premixed IV 1 EA IVPB SCH (10:25)
[2018-08-17] MEDS: Sodium Chloride Nasal 0.65% Soln (30ml) NAS SCH ×3 (10:25→18:00)
[2018-08-17] MEDS: Benzocaine/Menthol (Cepacol) Lozenge MT PRN (11:55)
--- NOTE | 2018-08-17 13:57 | CP.PCM.PN ---
Subjective - Date & Time of Evaluation Date of Evaluation: 08/17/18 Time of Evaluation: 13:56 - Subjective Subjective: Linwood Wheeler, PGY-[address] Ba Patient seen and examined at bedside. Patient appears weak. Patient reports fatigue and she had difficulty sleeping and had recurrence of chest tightness that began at 9pm yesterday evening. CP had resolved at time of evaluation. No fevers overnight. Currently denies CP but reports mild shortness of breath along with dry cough. Objective - Vital Signs/Intake and Output Vital Signs (last 24 hours): Temp Pulse Resp BP Pulse Ox 99.2 F 122 H 20 135/82 95 08/17/18 08:10 08/17/18 08:10 08/17/18 08:10 08/17/18 08:10 08/17/18 08:10 Intake and Output: 08/17/18 08/17/18 06:59 18:59 Intake Total 340 Balance 340 - Medications Medications: Current Medications Acetaminophen (Tylenol 325mg Tab) 650 mg PO Q6 PRN PRN Reason: Fever >100.4 F Last Admin: 08/14/18 23:55 Dose: 650 mg Albuterol/Ipratropium (Duoneb 3 Mg/0.5 Mg (3 Ml) Ud) 3 ml INH RQ6 PRN PRN Reason: Shortness of Breath Last Admin: 08/15/18 17:06 Dose: 3 ml Alprazolam (Xanax) 0.25 mg PO TID PRN PRN Reason: Anxiety Stop: 08/18/18 15:46 Last Admin: 08/16/18 03:01 Dose: 0.25 mg Aspirin (Aspirin Chewable) 81 mg PO DAILY [facility] Last Admin: 08/17/18 10:25 Dose: 81 mg Benzocaine/Menthol (Cepacol Sore Throat) 1 naheed MT Q4 PRN PRN Reason: Sore Throat Last Admin: 08/17/18 11:55 Dose: 1 naheed Clopidogrel Bisulfate (Plavix) 75 mg PO DAILY [facility] Last Admin: 08/17/18 10:25 Dose: 75 mg Famotidine (Pepcid) 20 mg PO DAILY [facility] Last Admin: 08/17/18 10:25 Dose: 20 mg Guaifenesin (Robitussin) 100 mg PO Q4H PRN PRN Reason: Cough Last Admin: 08/17/18 03:52 Dose: 100 mg Cefepime HCl 1 gm/ Sodium (Chloride) 100 mls @ 100 mls/hr IVPB Q24H [facility]; Protocol Last Admin: 08/17/18 00:10 Dose: 100 mls/hr Fluconazole 100 mg/ (Miscellaneous) 50 mls @ 100 mls/hr IVPB DAILY [facility]; Protocol Last Admin: 08/17/18 10:25 Dose: 100 mls/hr Lidocaine HCl (Lidocaine 2% Viscous) 5 ml PO Q3H PRN PRN Reason: Other Last Admin: 08/14/18 20:34 Dose: 5 ml Metoprolol Succinate (Toprol Xl) 50 mg PO DAILY [facility] Last Admin: 08/17/18 10:25 Dose: 50 mg Nitroglycerin (Nitro-Bid 2% Oint) 1 ea TOP Q6H [facility] Last Admin: 08/17/18 11:55 Dose: 1 ea Rosuvastatin Calcium (Crestor) 10 mg PO HS [facility] Last Admin: 08/16/18 21:28 Dose: 10 mg Saccharomyces Boulardii (Florastor) 250 mg PO BID [facility] Last Admin: 08/17/18 10:25 Dose: 250 mg Sodium Chloride ([place] Baby Saline 30 Ml) 0 ml MICHAEL TID [facility] Last Admin: 08/17/18 13:55 Dose: 2 spr Trolamine Salicylate (Aspercreme) 1 gm TOP Q6H PRN PRN Reason: stiff neck Last Admin: 08/17/18 13:55 Dose: 1 gm Warfarin Sodium (Coumadin) 2 mg PO 1800 [facility] Stop: 08/17/18 18:01 - Labs Labs: 08/17/18 07:49 08/17/18 07:49 PT 25.6 SECONDS (9.7-12.2) H 08/17/18 07:49 INR 2.3 08/17/18 07:49 APTT 32 SECONDS (21-34) 08/13/18 06:22 - Constitutional Appears: No Acute Distress, Older Than Stated Age - Head Exam Additional comments: L frontal hematoma - Respiratory Exam Respiratory Exam: Chest Wall Tenderness. absent: Accessory Muscle Use, Prolonged Expiratory Phase Additional comments: Hematoma on upper chest L>R, along L shoulder as well - Cardiovascular Exam Cardiovascular Exam: RRR, +S1, +S2. absent: JVD - GI/Abdominal Exam GI & Abdominal Exam: Soft. absent: Guarding, Tenderness, Rebound - Extremities Exam Extremities Exam: Pedal Edema - Skin Skin Exam: Pallor Assessment and Plan - Assessment and Plan (Free Text) Assessment: Assessment: 48 F with PMHx of anxiety who experienced syncopal episode and found to have bilateral pulmonary embolism and A. fib. Plan: Bilateral Pulmonary Embolisms and DVT -continue coumadin 2mg, INR is 2.3 today. 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 Small B/L pleural effusions -echo showed LVEF 50-55%, mild to moderate TR and pulmonary hypertension -initial CTA showed diffuse bilateral pulmonary emboli of B/L central and segmental pulmonary arteries, pulmonary venous congestion compatible with CHF vs left basilar atelectasis vs pulmonary infarct -LE duplex shows left acute thrombosis of the left common femoral vein -s/p respiratory arrest, ACLS performed Paroxysmal A. fib with RVR -EKG on admission showed afib with RVR at 146bpm, uncertain if new finding - most recent EKG shows sinus tachy at 122, will consider increasing B-lennox Patient seen, case discussed with attending, further recommendations per Dr. Ba. Linwood Wheeler, PGY-1
--- NOTE | 2018-08-17 15:03 | CP.PCM.PN ---
<Lucero Moran - Last Filed: 08/17/18 15:00> Subjective - Date & Time of Evaluation Date of Evaluation: 08/17/18 Time of Evaluation: 10:35 - Subjective Subjective: Lucero Moran PGY1 Progress note for Dr. Najera Pt was examined in the chair this morning. She reported feeling tired and difficulty sleeping at night since she sleeps during the day. She also reported some neck pain at the site of the central line. Pt denies any headache, shortness of breath, chest pain, abdominal pain, nausea, vomiting, diarrhea, dysuria. Objective - Vital Signs/Intake and Output Vital Signs (last 24 hours): Temp Pulse Resp BP Pulse Ox 99.2 F 122 H 20 135/82 95 08/17/18 08:10 08/17/18 08:10 08/17/18 08:10 08/17/18 08:10 08/17/18 08:10 Intake and Output: 08/17/18 08/17/18 06:59 18:59 Intake Total 340 650 Balance 340 650 - Medications Medications: Current Medications Acetaminophen (Tylenol 325mg Tab) 650 mg PO Q6 PRN PRN Reason: Fever >100.4 F Last Admin: 08/14/18 23:55 Dose: 650 mg Albuterol/Ipratropium (Duoneb 3 Mg/0.5 Mg (3 Ml) Ud) 3 ml INH RQ6 PRN PRN Reason: Shortness of Breath Last Admin: 08/15/18 17:06 Dose: 3 ml Alprazolam (Xanax) 0.25 mg PO TID PRN PRN Reason: Anxiety Stop: 08/18/18 15:46 Last Admin: 08/16/18 03:01 Dose: 0.25 mg Aspirin (Aspirin Chewable) 81 mg PO DAILY [facility] Last Admin: 08/17/18 10:25 Dose: 81 mg Benzocaine/Menthol (Cepacol Sore Throat) 1 naheed MT Q4 PRN PRN Reason: Sore Throat Last Admin: 08/17/18 11:55 Dose: 1 naheed Clopidogrel Bisulfate (Plavix) 75 mg PO DAILY [facility] Last Admin: 08/17/18 10:25 Dose: 75 mg Famotidine (Pepcid) 20 mg PO DAILY [facility] Last Admin: 08/17/18 10:25 Dose: 20 mg Guaifenesin (Robitussin) 100 mg PO Q4H PRN PRN Reason: Cough Last Admin: 08/17/18 03:52 Dose: 100 mg Cefepime HCl 1 gm/ Sodium (Chloride) 100 mls @ 100 mls/hr IVPB Q24H [facility]; Protocol Last Admin: 08/17/18 00:10 Dose: 100 mls/hr Fluconazole 100 mg/ (Miscellaneous) 50 mls @ 100 mls/hr IVPB DAILY [facility]; Protocol Last Admin: 08/17/18 10:25 Dose: 100 mls/hr Lidocaine HCl (Lidocaine 2% Viscous) 5 ml PO Q3H PRN PRN Reason: Other Last Admin: 08/14/18 20:34 Dose: 5 ml Metoprolol Succinate (Toprol Xl) 50 mg PO DAILY [facility] Last Admin: 08/17/18 10:25 Dose: 50 mg Nitroglycerin (Nitro-Bid 2% Oint) 1 ea TOP Q6H [facility] Last Admin: 08/17/18 11:55 Dose: 1 ea Rosuvastatin Calcium (Crestor) 10 mg PO HS [facility] Last Admin: 08/16/18 21:28 Dose: 10 mg Saccharomyces Boulardii (Florastor) 250 mg PO BID [facility] Last Admin: 08/17/18 10:25 Dose: 250 mg Sodium Chloride ([place]her Burn Baby Saline 30 Ml) 0 ml MICHAEL TID [facility] Last Admin: 08/17/18 13:55 Dose: 2 spr Trolamine Salicylate (Aspercreme) 1 gm TOP Q6H PRN PRN Reason: stiff neck Last Admin: 08/17/18 13:55 Dose: 1 gm Warfarin Sodium (Coumadin) 2 mg PO 1800 [facility] Stop: 08/17/18 18:01 - Labs Labs: 08/17/18 07:49 08/17/18 07:49 PT 25.6 SECONDS (9.7-12.2) H 08/17/18 07:49 INR 2.3 08/17/18 07:49 APTT 32 SECONDS (21-34) 08/13/18 06:22 - Constitutional Appears: No Acute Distress - Head Exam Head Exam: ATRAUMATIC, NORMOCEPHALIC - Eye Exam Eye Exam: EOMI, Normal appearance Pupil Exam: NORMAL ACCOMODATION - ENT Exam ENT Exam: Mucous Membranes Moist - Neck Exam Neck Exam: Tenderness Additional comments: tenderness to palpation of right superior trapezius muscle, adjacent to vertebrae. hypertonicty R central line site clean, dry, intact - Respiratory Exam Respiratory Exam: Decreased Breath Sounds, Clear to Ausculation Bilateral, NORMAL BREATHING PATTERN. absent: Rales, Rhonchi, Wheezes, Respiratory Distress - Cardiovascular Exam Cardiovascular Exam: Tachycardia, REGULAR RHYTHM, +S1, +S2. absent: Gallop, Rubs, Murmur - GI/Abdominal Exam GI & Abdominal Exam: Soft, Normal Bowel Sounds. absent: Distended, Tenderness - Extremities Exam Extremities Exam: Normal Inspection. absent: Calf Tenderness, Joint Swelling, Pedal Edema - Neurological Exam Neurological Exam: Alert, Awake, Oriented x3 - Skin Skin Exam: Normal Color Assessment and Plan - Assessment and Plan (Free Text) Assessment: 48yo [place] F with PMH anxiety, possible UTI, on OCP who had LOC after bus ride from [place] and was brought to ED, found to have A. fib and respiratory distress. Pt was intubated and CTA showed diffuse b/l PE and LE duplex US showed occlusive thrombus in L CFV. Pt had NSTEMI and renal failure in ICU. Plan: NSTEMI - Pt denied any chest pain - pt c/o chest pain 08/16: troponins 1.38 and 1.2. 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 Ba - recs appreciated, medical management only Bilateral PE and DVT - CTA chest: extensive b/l lower lobe proximal pulmonary emboli distal on margins of R and L pulmonary arteries, lower lobe of brances and proximal seg mental branches b/l. smaller emboli within segmental/subsegmental branches of upper and middle lobes - LE duplex: acute thrombosis of L common femoral vein - ECHO: EF 50-55%, mild to moderate TR and pulmonary HTN - INR 2.3 - resume coumadin 2 PO daily Pneumonia - pt afebrile - WBC 6.7 - CXR 08/14: venous congestion and small b/l pleural effusions - Currently on IV cefpime (day 12) - ID consulted, Dr. Slater - f/u recs for completion of abx course Acute renal failure - BUN 49, downtrending - Cr 3.4, downtrending - output of 600 on 08/14 - last HD: 08/10 - Nephro consulted, Dr. Henson - f/u recs for future HD Intially Atrial Fibrillation with RVR - pt tachy at 122, likely secondary to PE - Initial EKG: afib with rate of 146 bpm - continue to monitor Anxiety - Xanax 0.25mg PO TID PRN GI/DVT ppx: - Protonix 40mg IVP Q12H - Florastor 250 BID Pt seen and case reviewed with Dr. Najera <Matthew Najera - Last Filed: 08/17/18 18:32> Objective - Vital Signs/Intake and Output Vital Signs (last 24 hours): Temp Pulse Resp BP Pulse Ox 100.4 F H 117 H 20 131/86 95 08/17/18 17:13 08/17/18 17:13 08/17/18 17:13 08/17/18 17:13 08/17/18 17:13 Intake and Output: 08/17/18 08/17/18 06:59 18:59 Intake Total 340 650 Balance 340 650 - Medications Medications: Current Medications Acetaminophen (Tylenol 325mg Tab) 650 mg PO Q6 PRN PRN Reason: Fever >100.4 F Last Admin: 08/14/18 23:55 Dose: 650 mg Albuterol/Ipratropium (Duoneb 3 Mg/0.5 Mg (3 Ml) Ud) 3 ml INH RQ6 PRN PRN Reason: Shortness of Breath Last Admin: 08/15/18 17:06 Dose: 3 ml Alprazolam (Xanax) 0.25 mg PO TID PRN PRN Reason: Anxiety Stop: 08/18/18 15:46 Last Admin: 08/16/18 03:01 Dose: 0.25 mg Aspirin (Aspirin Chewable) 81 mg PO DAILY [facility] Last Admin: 08/17/18 10:25 Dose: 81 mg Benzocaine/Menthol (Cepacol Sore Throat) 1 naheed MT Q4 PRN PRN Reason: Sore Throat Last Admin: 08/17/18 11:55 Dose: 1 naheed Clopidogrel Bisulfate (Plavix) 75 mg PO DAILY [facility] Last Admin: 08/17/18 10:25 Dose: 75 mg Famotidine (Pepcid) 20 mg PO DAILY [facility] Last Admin: 08/17/18 10:25 Dose: 20 mg Guaifenesin (Robitussin) 100 mg PO Q4H PRN PRN Reason: Cough Last Admin: 08/17/18 18:10 Dose: 100 mg Cefepime HCl 1 gm/ Sodium (Chloride) 100 mls @ 100 mls/hr IVPB Q24H [facility]; Protocol Last Admin: 08/17/18 00:10 Dose: 100 mls/hr Fluconazole 100 mg/ (Miscellaneous) 50 mls @ 100 mls/hr IVPB DAILY [facility]; Protocol Last Admin: 08/17/18 10:25 Dose: 100 mls/hr Lidocaine HCl (Lidocaine 2% Viscous) 5 ml PO Q3H PRN PRN Reason: Other Last Admin: 08/14/18 20:34 Dose: 5 ml Metoprolol Succinate (Toprol Xl) 50 mg PO DAILY [facility] Last Admin: 08/17/18 10:25 Dose: 50 mg Nitroglycerin (Nitro-Bid 2% Oint) 1 ea TOP Q6H [facility] Last Admin: 08/17/18 18:01 Dose: 1 ea Rosuvastatin Calcium (Crestor) 10 mg PO HS [facility] Last Admin: 08/16/18 21:28 Dose: 10 mg Saccharomyces Boulardii (Florastor) 250 mg PO BID [facility] Last Admin: 08/17/18 17:59 Dose: 250 mg Sodium Chloride (Panther Burn Baby Saline 30 Ml) 0 ml MICHAEL TID [facility] Last Admin: 08/17/18 18:00 Dose: 1 spr Trolamine Salicylate (Aspercreme) 1 gm TOP Q6H PRN PRN Reason: stiff neck Last Admin: 08/17/18 13:55 Dose: 1 gm - Labs Labs: 08/17/18 07:49 08/17/18 07:49 PT 25.6 SECONDS (9.7-12.2) H 08/17/18 07:49 INR 2.3 08/17/18 07:49 APTT 32 SECONDS (21-34) 08/13/18 06:22 Attending/Attestation - Attestation I have personally seen and examined this patient.: Yes I have fully participated in the care of the patient.: Yes I have reviewed all pertinent clinical information, including history, physical exam and plan: Yes Notes (Text): seen and examined with the resident.patient is complaining of headache/feels like that she has fluid in her head CT head is without hemorrhage Patient has dialysis cath on her right neck. d/w DR Henson. He think we can remove her dialysis cath tomorrow Monitor creatinine few more days. not ready for discharge continue antibiotics and follow ID GIve coumadin 2mg tonight. INR is 2.3 d/w daughter at bedside
--- NOTE | 2018-08-17 17:17 | CT ---
Date of service: 08/17/2018 PROCEDURE: CT HEAD WITHOUT CONTRAST. HISTORY: Headache COMPARISON: Noncontrast head CT performed 07/27/18 TECHNIQUE: Axial computed tomography images were obtained through the head/brain without intravenous contrast. Radiation dose: Total exam DLP = 992.38 mGy-cm. This CT exam was performed using one or more of the following dose reduction techniques: Automated exposure control, adjustment of the mA and/or kV according to patient size, and/or use of iterative reconstruction technique. FINDINGS: Mild streak artifact obscures evaluation of the skull base. HEMORRHAGE: No intracranial hemorrhage. BRAIN: No mass effect or edema. Intracranial atherosclerotic calcifications. The sandhu-white matter differentiation appears intact. Please note that MRI with diffusion imaging is more sensitive in the detection of acute ischemic event. VENTRICLES: No hydrocephalus. CALVARIUM: Unremarkable. PARANASAL SINUSES: Unremarkable as visualized. No significant inflammatory changes. MASTOID AIR CELLS: Unremarkable as visualized. No inflammatory changes. OTHER FINDINGS: 7 mm soft tissue nodule re-identified, high frontal subcutaneous scalp. IMPRESSION: No acute intracranial pathology identified. If symptoms persist, consider correlation with MRI. Incidental findings as above.
[2018-08-17] MEDS: Albuterol-Ipratrop 3 mg / 0.5 (3 ml) UD INH PRN (19:07)
[2018-08-17] MEDS ORDERED: oxyCODONE 5 mg Immediate Release Tab PO ONE (22:00)
--- NOTE | 2018-08-17 23:21 | CP.PCM.PN ---
Subjective - Date & Time of Evaluation Date of Evaluation: 08/17/18 Time of Evaluation: 15:00 - Subjective Subjective: Patient reports no sob; urinating well; not complaining of chest tightness currently; Objective - Vital Signs/Intake and Output Vital Signs (last 24 hours): Temp Pulse Resp BP Pulse Ox 98 F 124 H 20 130/76 98 08/17/18 22:25 08/17/18 22:25 08/17/18 22:25 08/17/18 22:25 08/17/18 22:25 Intake and Output: 08/17/18 08/18/18 18:59 06:59 Intake Total 650 Balance 650 - Medications Medications: Current Medications Acetaminophen (Tylenol 325mg Tab) 650 mg PO Q6 PRN PRN Reason: Fever >100.4 F Last Admin: 08/14/18 23:55 Dose: 650 mg Albuterol/Ipratropium (Duoneb 3 Mg/0.5 Mg (3 Ml) Ud) 3 ml INH RQ6 PRN PRN Reason: Shortness of Breath Last Admin: 08/17/18 19:07 Dose: 3 ml Alprazolam (Xanax) 0.25 mg PO TID PRN PRN Reason: Anxiety Stop: 08/18/18 15:46 Last Admin: 08/17/18 21:52 Dose: 0.25 mg Aspirin (Aspirin Chewable) 81 mg PO DAILY [facility] Last Admin: 08/17/18 10:25 Dose: 81 mg Benzocaine/Menthol (Cepacol Sore Throat) 1 naheed MT Q4 PRN PRN Reason: Sore Throat Last Admin: 08/17/18 11:55 Dose: 1 naheed Clopidogrel Bisulfate (Plavix) 75 mg PO DAILY [facility] Last Admin: 08/17/18 10:25 Dose: 75 mg Famotidine (Pepcid) 20 mg PO DAILY [facility] Last Admin: 08/17/18 10:25 Dose: 20 mg Guaifenesin (Robitussin) 100 mg PO Q4H PRN PRN Reason: Cough Last Admin: 08/17/18 21:55 Dose: 100 mg Cefepime HCl 1 gm/ Sodium (Chloride) 100 mls @ 100 mls/hr IVPB Q24H [facility]; Protocol Last Admin: 08/17/18 00:10 Dose: 100 mls/hr Fluconazole 100 mg/ (Miscellaneous) 50 mls @ 100 mls/hr IVPB DAILY [facility]; Protocol Last Admin: 08/17/18 10:25 Dose: 100 mls/hr Lidocaine HCl (Lidocaine 2% Viscous) 5 ml PO Q3H PRN PRN Reason: Other Last Admin: 08/14/18 20:34 Dose: 5 ml Metoprolol Succinate (Toprol Xl) 50 mg PO DAILY [facility] Last Admin: 08/17/18 10:25 Dose: 50 mg Nitroglycerin (Nitro-Bid 2% Oint) 1 ea TOP Q6H [facility] Last Admin: 08/17/18 18:01 Dose: 1 ea Rosuvastatin Calcium (Crestor) 10 mg PO HS [facility] Last Admin: 08/17/18 21:52 Dose: 10 mg Saccharomyces Boulardii (Florastor) 250 mg PO BID [facility] Last Admin: 08/17/18 17:59 Dose: 250 mg Sodium Chloride ([place] Baby Saline 30 Ml) 0 ml MICHAEL TID [facility] Last Admin: 08/17/18 18:00 Dose: 1 spr Trolamine Salicylate (Aspercreme) 1 gm TOP Q6H PRN PRN Reason: stiff neck Last Admin: 08/17/18 20:55 Dose: 1 gm - Labs Labs: 08/17/18 07:49 08/17/18 07:49 PT 25.6 SECONDS (9.7-12.2) H 08/17/18 07:49 INR 2.3 08/17/18 07:49 APTT 32 SECONDS (21-34) 08/13/18 06:22 - Constitutional Appears: Non-toxic, No Acute Distress - Eye Exam Eye Exam: Normal appearance - ENT Exam ENT Exam: Mucous Membranes Moist - Respiratory Exam Respiratory Exam: Rales. absent: Respiratory Distress - Cardiovascular Exam Cardiovascular Exam: Tachycardia, +S1, +S2. absent: Gallop, Rubs - GI/Abdominal Exam GI & Abdominal Exam: Soft. absent: Distended, Tenderness - Exam Exam: absent: Bladder Distension - Extremities Exam Additional comments: moderate lower leg edema b/l - Neurological Exam Neurological Exam: Alert, Awake - Psychiatric Exam Psychiatric exam: Normal Mood. absent: Agitated - Skin Skin Exam: Warm. absent: Cyanosis Assessment and Plan (1) Acute renal failure Assessment & Plan: ATN, resolving but creatinine coming down very slowly, atypical for ATN recovery; stable electrolyte and volume status; no indication for HD at this time; -will plan to d/c HD cath tomorrow if patient appears stable; -avoid nephrotoxic agents; -holding off on giving any IVF since there is no indication that patient is polyuric/volume depleted; Status: Acute (2) Tachycardia Assessment & Plan: Has been persistent despite being on B-blockers; will continue to monitor; Status: Acute (3) Acute respiratory failure with hypoxemia Status: Acute (4) Hypocalcemia Status: Resolved (5) Metabolic acidosis Status: Acute (6) NSTEMI (non-ST elevated myocardial infarction) Status: Acute
[2018-08-17 23:55] LABS: CK-MB 1.95 ng/mL (0.0-3.38); TROPONIN I 0.823 ng/mL (0.00-0.120)
[2018-08-18] MEDS: Cefepime 1 GM in Sodium Chloride 0.9% 100 ML IVPB SCH (00:14)
[2018-08-18] MEDS: Albuterol-Ipratrop 3 mg / 0.5 (3 ml) UD INH PRN ×2 (03:21→20:02)
[2018-08-18] MEDS: guaiFENesin 100 mg/5 ml Syrup UD PO PRN ×2 (03:23→07:13)
[2018-08-18] MEDS: Trolamine Salicylate 10% Cream (85 gm) TOP PRN (03:34)
[2018-08-18] MEDS: Nitroglycerin 2% Ointment Foilpak UD TOP SCH ×3 (05:45→17:36)
[2018-08-18] MEDS ORDERED: oxyCODONE 5 mg Immediate Release Tab PO PRN (07:27)
--- NOTE | 2018-08-18 07:41 | CP.PCM.PN ---
<Lucero Moran - Last Filed: 08/18/18 11:06> Subjective - Date & Time of Evaluation Date of Evaluation: 08/18/18 Time of Evaluation: 07:39 - Subjective Subjective: Lucero Moran PGY1 Progress Note for Dr. Najera Pt was examined at bedside this morning. She reports shortness of breath and chest pain that began overnight. She denies any other symptoms. [facility] was activated at 8:00 AM today for respiratory distress. Pt was transferred to ICU for further care. Please see [facility] [facility] note for details. Objective - Vital Signs/Intake and Output Vital Signs (last 24 hours): Temp Pulse Resp BP Pulse Ox 98.2 F 133 H 20 128/89 93 L 08/18/18 07:00 08/18/18 07:00 08/18/18 07:00 08/18/18 07:00 08/18/18 07:00 Intake and Output: 08/18/18 08/18/18 06:59 18:59 Intake Total 420 Balance 420 - Medications Medications: Current Medications Acetaminophen (Tylenol 325mg Tab) 650 mg PO Q6 PRN PRN Reason: Fever >100.4 F Last Admin: 08/14/18 23:55 Dose: 650 mg Albuterol/Ipratropium (Duoneb 3 Mg/0.5 Mg (3 Ml) Ud) 3 ml INH RQ4 PRN PRN Reason: Shortness of Breath Alprazolam (Xanax) 0.25 mg PO TID PRN PRN Reason: Anxiety Stop: 08/18/18 15:46 Last Admin: 08/18/18 03:23 Dose: 0.25 mg Aspirin (Aspirin Chewable) 81 mg PO DAILY [facility] Last Admin: 08/17/18 10:25 Dose: 81 mg Benzocaine/Menthol (Cepacol Sore Throat) 1 naheed MT Q4 PRN PRN Reason: Sore Throat Last Admin: 08/17/18 11:55 Dose: 1 naheed Clopidogrel Bisulfate (Plavix) 75 mg PO DAILY [facility] Last Admin: 08/17/18 10:25 Dose: 75 mg Famotidine (Pepcid) 20 mg PO DAILY [facility] Last Admin: 08/17/18 10:25 Dose: 20 mg Guaifenesin (Robitussin) 100 mg PO Q4H PRN PRN Reason: Cough Last Admin: 08/18/18 07:13 Dose: 100 mg Cefepime HCl 1 gm/ Sodium (Chloride) 100 mls @ 100 mls/hr IVPB Q24H [facility]; Protocol Last Admin: 08/18/18 00:14 Dose: 100 mls/hr Fluconazole 100 mg/ (Miscellaneous) 50 mls @ 100 mls/hr IVPB DAILY [facility]; Protocol Last Admin: 08/17/18 10:25 Dose: 100 mls/hr Lidocaine HCl (Lidocaine 2% Viscous) 5 ml PO Q3H PRN PRN Reason: Other Last Admin: 08/14/18 20:34 Dose: 5 ml Metoprolol Succinate (Toprol Xl) 50 mg PO DAILY [facility] Last Admin: 08/17/18 10:25 Dose: 50 mg Nitroglycerin (Nitro-Bid 2% Oint) 1 ea TOP Q6H [facility] Last Admin: 08/18/18 05:45 Dose: 1 ea Oxycodone HCl (Oxycodone Immediate Release Tab) 5 mg PO Q6 PRN PRN Reason: Pain, moderate (4-7) Rosuvastatin Calcium (Crestor) 10 mg PO HS [facility] Last Admin: 08/17/18 21:52 Dose: 10 mg Saccharomyces Boulardii (Florastor) 250 mg PO BID [facility] Last Admin: 08/17/18 17:59 Dose: 250 mg Sodium Chloride ([place] Baby Saline 30 Ml) 0 ml MICHAEL TID [facility] Last Admin: 08/17/18 18:00 Dose: 1 spr Trolamine Salicylate (Aspercreme) 1 gm TOP Q6H PRN PRN Reason: stiff neck Last Admin: 08/18/18 03:34 Dose: 1 gm - Labs Labs: 08/17/18 07:49 08/17/18 07:49 PT 25.6 SECONDS (9.7-12.2) H 08/17/18 07:49 INR 2.3 08/17/18 07:49 APTT 32 SECONDS (21-34) 08/13/18 06:22 - Constitutional Appears: In Acute Distress - Head Exam Head Exam: ATRAUMATIC, NORMOCEPHALIC - Eye Exam Eye Exam: EOMI, Normal appearance, PERRL - ENT Exam ENT Exam: Mucous Membranes Moist - Neck Exam Additional comments: ecchymosis on L anterior neck central line site clean, dry, intact - Respiratory Exam Respiratory Exam: Rhonchi, Wheezes, Respiratory Distress. absent: Accessory Muscle Use, Rales, Stridor - Cardiovascular Exam Cardiovascular Exam: Tachycardia, REGULAR RHYTHM, Rubs, +S1, +S2, Murmur. absent: Gallop - GI/Abdominal Exam GI & Abdominal Exam: Soft, Normal Bowel Sounds. absent: Distended, Tenderness - Extremities Exam Extremities Exam: Calf Tenderness, Pedal Edema - Neurological Exam Neurological Exam: Alert, Awake, Oriented x3 - Skin Skin Exam: Dry Assessment and Plan - Assessment and Plan (Free Text) Assessment: 48yo [place] F with PMH anxiety, possible UTI, on OCP who had LOC after bus ride from [place] and was brought to ED, found to have A. fib and respiratory distress. Pt was intubated and CTA showed diffuse b/l PE and LE duplex US showed occlusive thrombus in L CFV. Pt had NSTEMI and renal failure in ICU. [employer] called today for respiratory distress, pt transferred to ICU. 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 Ba - li appreciated, medical management only Bilateral PE and DVT - CTA chest: extensive b/l lower lobe proximal pulmonary emboli distal on margins of R and L pulmonary arteries, lower lobe of brances and proximal segmental branches b/l. smaller emboli within segmental/subsegmental branches of upper and middle lobes - LE duplex: acute thrombosis of L common femoral vein - ECHO: EF 50-55%, mild to moderate TR and pulmonary HTN - INR 3.6 - rpt INR - hold coumadin - given stat duonebs, bipap during [employer] - given stat solumedrol 30 IV during [employer] - pt transferred to ICU for further care Pneumonia - pt afebrile - WBC 11.0 - CXR this AM, patchy infiltrates, congestion: f/u official read - Currently on IV cefpime (day 13) - ID consulted, Dr. Slater - f/u recs Acute renal failure - BUN 46 - Cr 3.1 - last HD: 08/10 - gave lasix 40 IV during [employer] - Nephro consulted, Dr. Henson - to have stat HD Intially Atrial Fibrillation with RVR - pt tachy at 130, likely secondary to PE - Initial EKG: afib with rate of 146 bpm - continue to monitor Anxiety - Xanax 0.25mg PO TID PRN GI/DVT ppx: - Protonix 40mg IVP Q12H - Florastor 250 BID Dispo: [employer] called on pt this morning, pt transferred to ICU for further evaluation and care. Pt seen and case reviewed with Dr. Najera <Matthew Najera - Last Filed: 08/18/18 18:03> Objective - Vital Signs/Intake and Output Vital Signs (last 24 hours): Temp Pulse Resp BP Pulse Ox 97.6 F 100 H 24 104/77 100 08/18/18 16:00 08/18/18 17:00 08/18/18 17:00 08/18/18 17:00 08/18/18 17:00 Intake and Output: 08/18/18 08/18/18 06:59 18:59 Intake Total 420 690 Output Total 551 Balance 420 139 - Medications Medications: Current Medications Acetaminophen (Tylenol 325mg Tab) 650 mg PO Q6 PRN PRN Reason: Fever >100.4 F Last Admin: 08/14/18 23:55 Dose: 650 mg Albuterol/Ipratropium (Duoneb 3 Mg/0.5 Mg (3 Ml) Ud) 3 ml INH RQ4 PRN PRN Reason: Shortness of Breath Aspirin (Aspirin Chewable) 81 mg PO DAILY [facility] Last Admin: 08/18/18 10:12 Dose: 81 mg Benzocaine/Menthol (Cepacol Sore Throat) 1 naheed MT Q4 PRN PRN Reason: Sore Throat Last Admin: 08/17/18 11:55 Dose: 1 naheed Clopidogrel Bisulfate (Plavix) 75 mg PO DAILY [facility] Last Admin: 08/18/18 10:17 Dose: 75 mg Famotidine (Pepcid) 20 mg PO DAILY [facility] Last Admin: 08/18/18 10:17 Dose: 20 mg Guaifenesin (Robitussin) 100 mg PO Q4H PRN PRN Reason: Cough Last Admin: 08/18/18 07:13 Dose: 100 mg Fluconazole 100 mg/ (Miscellaneous) 50 mls @ 100 mls/hr IVPB DAILY [facility]; Protocol Last Admin: 08/18/18 12:31 Dose: 100 mls/hr Lidocaine HCl (Lidocaine 2% Viscous) 5 ml PO Q3H PRN PRN Reason: Other Last Admin: 08/14/18 20:34 Dose: 5 ml Metoprolol Succinate (Toprol Xl) 50 mg PO DAILY [facility] Last Admin: 08/18/18 12:32 Dose: 50 mg Nitroglycerin (Nitro-Bid 2% Oint) 1 ea TOP Q6H [facility] Last Admin: 08/18/18 17:36 Dose: 1 ea Oxycodone HCl (Oxycodone Immediate Release Tab) 5 mg PO Q6 PRN PRN Reason: Pain, moderate (4-7) Rosuvastatin Calcium (Crestor) 10 mg PO HS [facility] Last Admin: 08/17/18 21:52 Dose: 10 mg Saccharomyces Boulardii (Florastor) 250 mg PO BID [facility] Last Admin: 08/18/18 17:36 Dose: 250 mg Sodium Chloride ([place] Baby Saline 30 Ml) 0 ml MICHAEL TID [facility] Last Admin: 08/18/18 17:37 Dose: 2 spr Trolamine Salicylate (Aspercreme) 1 gm TOP Q6H PRN PRN Reason: stiff neck Last Admin: 08/18/18 03:34 Dose: 1 gm - Labs Labs: 08/18/18 08:17 08/18/18 08:17 PT 39.5 SECONDS (9.7-12.2) H D 08/18/18 07:37 INR 3.6 D 08/18/18 07:37 APTT 32 SECONDS (21-34) 08/13/18 06:22 Attending/Attestation - Attestation I have personally seen and examined this patient.: Yes I have fully participated in the care of the patient.: Yes I have reviewed all pertinent clinical information, including history, physical exam and plan: Yes Notes (Text): Patient was seen this morning during [employer] Patient was in pulmonary edema. Spoke to DR Henson for urgent dialysis .Patient was transferred to ICU for bedside dialysis this is a patient with pulmonary embolism,s/p cardiac arrest on admission due to PE,DVT,Renal failure(ATN), recent cath by Dr. 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 HER INR is high spoke to her daughter at bedside
[2018-08-18 07:51] LABS: BASO # 0.1 K/uL (0.0-0.2); BASO % 1.2 % (0.0-2.0); EOS % 0.2 % (0.0-4.0); LYMPH # 1.5 K/uL (1.0-4.3); LYMPH % 14.3 % (20.0-40.0); MEAN CELL VOLUME 81.7 fL (81.0-99.0); MEAN CORPUSCULAR HEMOGLOBIN 27.3 pg (27.0-31.0); MEAN CORPUSCULAR HGB CONC 33.4 g/dL (33.0-37.0); MEAN PLATELET VOLUME 10.3 fL (7.2-11.7); MONO # 0.8 K/uL (0.0-0.8); MONO % 7.7 % (0.0-10.0); NEUT # 7.9 K/uL (1.8-7.0); NEUT % 76.6 % (50.0-75.0); NRBC % 0.1 % (0.0-2.0); RBC 3.29 Mil/uL (3.80-5.20); RED CELL DISTRIBUTION WIDTH 17.9 % (11.5-14.5)
[2018-08-18 07:54] LABS: WHITE BLOOD COUNT 10.3 K/uL (4.8-10.8)
[2018-08-18 08:12] LABS: ALB/GLOB RATIO 0.8 (1.0-2.1); ALBUMIN 3.2 g/dL (3.5-5.0); CALCIUM 8.8 mg/dl (8.6-10.4); INR 3.6; PROTHROMBIN TIME 39.5 SECONDS (9.7-12.2)
--- NOTE | 2018-08-18 08:12 | PCM.RRT ---
ELECTRICAL AND INSTRUMENT MECHANIC Nurses Assessment - Ventilator Settings SAO2 %: 95 - Constitutional Appears: In Acute Distress, Chronically Ill - Respiratory Exam Respiratory Exam: Accessory Muscle Use, Decreased Breath Sounds, Rhonchi, Wheezes, Respiratory Distress - Cardiovascular Exam Cardiovascular Exam: Tachycardia, REGULAR RHYTHM, +S1, +S2 - GI/Abdominal Exam GI & Abdominal Exam: Soft, Normal Bowel Sounds. absent: Distended - Neurological Exam Neurological Exam: Alert, Awake, Oriented x3 - Extremities Exam Extremities Exam: Pedal Edema Plan - Assessment of Findings&Treatment Plan HR 133, BP 132/91, RR 34, O2 Sat 93% ELECTRICAL AND INSTRUMENT MECHANIC called by nursing for respiratory distress. Pt with labored breathing in bed, alert and awake, able to answer questions. STAT CXR, lasix 40 IVP, solumedrol 30 IV, duonebs, bipap ordered. Pt in need of emergent HD, Dr. Henson called at bedside and will place orders. STAT CBC, CMP ordered. Pt transferred to ICU. Pt to receive HD.
[2018-08-18] MEDS ORDERED: Albuterol-Ipratrop 3 mg / 0.5 (3 ml) UD INH ONE (08:15)
[2018-08-18] MEDS ORDERED: MethylPREDNISolone 40 mg Vial IV ONE (08:15)
[2018-08-18 08:30] LABS: BASO # 0.3 K/uL (0.0-0.2); BASO % 2.9 % (0.0-2.0); EOS % 0.1 % (0.0-4.0); HEMOGLOBIN 8.8 g/dL (11.0-16.0); LYMPH # 1.4 K/uL (1.0-4.3); LYMPH % 12.3 % (20.0-40.0); MEAN CORPUSCULAR HEMOGLOBIN 26.9 pg (27.0-31.0); MEAN CORPUSCULAR HGB CONC 33.3 g/dL (33.0-37.0); MEAN PLATELET VOLUME 10.1 fL (7.2-11.7); MONO # 0.8 K/uL (0.0-0.8); MONO % 6.8 % (0.0-10.0); NEUT # 8.5 K/uL (1.8-7.0); NEUT % 77.9 % (50.0-75.0); NRBC % 0.1 % (0.0-2.0); RBC 3.25 Mil/uL (3.80-5.20); RED CELL DISTRIBUTION WIDTH 17.9 % (11.5-14.5)
[2018-08-18 08:43] LABS: ALB/GLOB RATIO 0.9 (1.0-2.1); ALBUMIN 3.2 g/dL (3.5-5.0); CALCIUM 8.7 mg/dl (8.6-10.4)
[2018-08-18] MEDS ORDERED: Magnesium Sulfate 1 gm in D5W 1 GM/100 ML BAG IVPB ONE (09:30)
[2018-08-18] MEDS: Sodium Chloride Nasal 0.65% Soln (30ml) NAS SCH ×3 (10:16→17:37)
[2018-08-18] MEDS: Saccharomyces Boulardi 250 mg Cap PO SCH ×2 (10:16→17:36)
--- NOTE | 2018-08-18 10:30 | CP.PCM.CON ---
History of Present Illness - History of Present Illness History of Present Illness: Patient is a 48 yo female with a history of anxiety and bariatric surgery who presented to the ED on 07/27 after a syncopal episode, SOB, and chest pain. This was following a long bus ride. Of note, patient was also taking OCP. Patient was initially managed in the ICU. She required intubation due to respiratory failure. She was found to have b/l pulmonary embolisms, RCA dissection, and L common femoral DVT. She also has renal failure and was started on hemodialysis. She was able to be downgraded to telemetry unit. A rapid response was called today (08/18) due to respiratory distress. Patient was placed on BiPap. She required transfer to the ICU and emergent dialysis for fluid overload. Review of Systems - Review of Systems Systems not reviewed;Unavailable: Acuity of Condition, Respiratory Distress Past Patient History - Infectious Disease Hx of Infectious Diseases: None - Tetanus Immunizations Tetanus Immunization: Unknown - Past Medical History & Family History Past Medical History?: Yes Past Family History: Reviewed and not pertinent - Past Social History Smoking Status: Never Smoked Chewing Tobacco Use: No Cigar Use: No Alcohol: None Drugs: Denies - CARDIAC Hx Cardiac Disorders: (unable to obtain) - PULMONARY Hx Respiratory Disorders: (unable to obtain) - NEUROLOGICAL Hx Neurological Disorder: (unable to obtain) - HEENT Hx HEENT Problems: (unable to obtain) - RENAL Hx Chronic Kidney Disease: (unable to obtain) - ENDOCRINE/METABOLIC Hx Endocrine Disorders: (unable to obtain) - HEMATOLOGICAL/ONCOLOGICAL Hx Blood Disorders: (unable to obtain) - INTEGUMENTARY Hx Dermatological Problems: (unable to obtain) - MUSCULOSKELETAL/RHEUMATOLOGICAL Hx Musculoskeletal Disorders: (unable to obtain) - GASTROINTESTINAL Hx Gastrointestinal Disorders: (unable to obtain) - GENITOURINARY/GYNECOLOGICAL Hx Genitourinary Disorders: (unable to obtain) - PSYCHIATRIC Hx Anxiety: Yes Hx Substance Use: No - SURGICAL HISTORY Hx Surgeries: Yes (As per Family Member) Hx Section: Yes (x2) Other/Comment: Bariatric Sx - ANESTHESIA Hx Anesthesia: Yes Hx Anesthesia Reactions: No Hx Malignant Hyperthermia: No Meds Allergies/Adverse Reactions: Allergies Allergy/AdvReac Type Severity Reaction Status Date / Time No Known Allergies Allergy Unverified 07/27/18 02:28 - Medications Medications: Current Medications Acetaminophen (Tylenol 325mg Tab) 650 mg PO Q6 PRN PRN Reason: Fever >100.4 F Last Admin: 08/14/18 23:55 Dose: 650 mg Albuterol/Ipratropium (Duoneb 3 Mg/0.5 Mg (3 Ml) Ud) 3 ml INH RQ4 PRN PRN Reason: Shortness of Breath Alprazolam (Xanax) 0.25 mg PO TID PRN PRN Reason: Anxiety Stop: 08/18/18 15:46 Last Admin: 08/18/18 03:23 Dose: 0.25 mg Aspirin (Aspirin Chewable) 81 mg PO DAILY [facility] Last Admin: 08/18/18 10:12 Dose: 81 mg Benzocaine/Menthol (Cepacol Sore Throat) 1 naheed MT Q4 PRN PRN Reason: Sore Throat Last Admin: 08/17/18 11:55 Dose: 1 naheed Clopidogrel Bisulfate (Plavix) 75 mg PO DAILY [facility] Last Admin: 08/18/18 10:17 Dose: 75 mg Famotidine (Pepcid) 20 mg PO DAILY [facility] Last Admin: 08/18/18 10:17 Dose: 20 mg Guaifenesin (Robitussin) 100 mg PO Q4H PRN PRN Reason: Cough Last Admin: 08/18/18 07:13 Dose: 100 mg Cefepime HCl 1 gm/ Sodium (Chloride) 100 mls @ 100 mls/hr IVPB Q24H [facility]; Protocol Last Admin: 08/18/18 00:14 Dose: 100 mls/hr Fluconazole 100 mg/ (Miscellaneous) 50 mls @ 100 mls/hr IVPB DAILY [facility]; Protocol Last Admin: 08/17/18 10:25 Dose: 100 mls/hr Lidocaine HCl (Lidocaine 2% Viscous) 5 ml PO Q3H PRN PRN Reason: Other Last Admin: 08/14/18 20:34 Dose: 5 ml Metoprolol Succinate (Toprol Xl) 50 mg PO DAILY [facility] Last Admin: 08/17/18 10:25 Dose: 50 mg Nitroglycerin (Nitro-Bid 2% Oint) 1 ea TOP Q6H [facility] Last Admin: 08/18/18 05:45 Dose: 1 ea Oxycodone HCl (Oxycodone Immediate Release Tab) 5 mg PO Q6 PRN PRN Reason: Pain, moderate (4-7) Rosuvastatin Calcium (Crestor) 10 mg PO HS [facility] Last Admin: 08/17/18 21:52 Dose: 10 mg Saccharomyces Boulardii (Florastor) 250 mg PO BID [facility] Last Admin: 08/18/18 10:16 Dose: 250 mg Sodium Chloride ([place] Baby Saline 30 Ml) 0 ml MICHAEL TID [facility] Last Admin: 08/18/18 10:16 Dose: 2 spr Trolamine Salicylate (Aspercreme) 1 gm TOP Q6H PRN PRN Reason: stiff neck Last Admin: 08/18/18 03:34 Dose: 1 gm Physical Exam - Constitutional Appears: In Acute Distress - Head Exam Head Exam: ATRAUMATIC, NORMAL INSPECTION - Eye Exam Eye Exam: EOMI, Normal appearance, PERRL - ENT Exam ENT Exam: Mucous Membranes Moist - Neck Exam Neck exam: Positive for: Normal Inspection - Respiratory Exam Respiratory Exam: Accessory Muscle Use, Decreased Breath Sounds, Rhonchi, Respiratory Distress - Cardiovascular Exam Cardiovascular Exam: Tachycardia, REGULAR RHYTHM - GI/Abdominal Exam GI & Abdominal Exam: Soft. absent: Tenderness - Rectal Exam Rectal Exam: Deferred - Extremities Exam Extremities exam: Positive for: pedal edema - Neurological Exam Neurological exam: Alert, CN II-XII Intact, Oriented x3 Results - Vital Signs Recent Vital Signs: Last Vital Signs Temp 98.2 F 08/18/18 10:00 Pulse 124 H 08/18/18 10:00 Resp 30 H 08/18/18 10:00 BP 118/84 08/18/18 10:00 Pulse Ox 98 08/18/18 09:15 - Labs Result Diagrams: 08/18/18 08:17 08/18/18 08:17 Labs: Laboratory Results - last 24 hr 08/17/18 08/18/18 08/18/18 23:19 07:37 07:37 WBC 10.3 D RBC 3.29 L Hgb 9.0 L Hct 26.9 L MCV 81.7 MCH 27.3 MCHC 33.4 RDW 17.9 H Plt Count 251 MPV 10.3 Neut % (Auto) 76.6 H Lymph % (Auto) 14.3 L [place] % (Auto) 7.7 Eos % (Auto) 0.2 Baso % (Auto) 1.2 Neut # (Auto) 7.9 H Lymph # (Auto) 1.5 [place] # (Auto) 0.8 Eos # (Auto) 0.0 Baso # (Auto) 0.1 PT INR Sodium 141 Potassium 4.6 Chloride 107 Carbon Dioxide 17 L Anion Gap 21 H BUN 48 H Creatinine 3.1 H Est GFR ( Amer) 20 Est GFR (Non-Af Amer) 16 Random Glucose 121 H Calcium 8.8 Phosphorus Magnesium Total Bilirubin 0.7 AST 33 ALT 17 Alkaline Phosphatase 75 Total Creatine Kinase 38 CK-MB (Mass) 1.95 Troponin I 0.8230 H* Total Protein 7.1 Albumin 3.2 L Globulin 3.9 Albumin/Globulin Ratio 0.8 L Free T4 TSH 3rd Generation 4.07 08/18/18 08/18/18 08/18/18 07:37 07:37 07:37 WBC RBC Hgb Hct MCV MCH MCHC RDW Plt Count MPV Neut % (Auto) Lymph % (Auto) [place] % (Auto) Eos % (Auto) Baso % (Auto) Neut # (Auto) Lymph # (Auto) [place] # (Auto) Eos # (Auto) Baso # (Auto) PT 39.5 H D INR 3.6 D Sodium Potassium Chloride Carbon Dioxide Anion Gap BUN Creatinine Est GFR ( Amer) Est GFR (Non-Af Amer) Random Glucose Calcium Phosphorus 5.2 H Magnesium 1.5 L Total Bilirubin AST ALT Alkaline Phosphatase Total Creatine Kinase CK-MB (Mass) Troponin I Total Protein Albumin Globulin Albumin/Globulin Ratio Free T4 1.95 TSH 3rd Generation 08/18/18 08/18/18 08:17 08:17 WBC 11.0 H RBC 3.25 L Hgb 8.8 L Hct 26.3 L MCV 81.0 MCH 26.9 L MCHC 33.3 RDW 17.9 H Plt Count 269 MPV 10.1 Neut % (Auto) 77.9 H Lymph % (Auto) 12.3 L [place] % (Auto) 6.8 Eos % (Auto) 0.1 Baso % (Auto) 2.9 H Neut # (Auto) 8.5 H Lymph # (Auto) 1.4 [place] # (Auto) 0.8 Eos # (Auto) 0.0 Baso # (Auto) 0.3 H PT INR Sodium 142 Potassium 4.7 Chloride 109 H Carbon Dioxide 17 L Anion Gap 21 H BUN 46 H Creatinine 3.1 H Est GFR ( Amer) 20 Est GFR (Non-Af Amer) 16 Random Glucose 122 H Calcium 8.7 Phosphorus Magnesium Total Bilirubin 0.6 AST 28 ALT 19 Alkaline Phosphatase 75 Total Creatine Kinase CK-MB (Mass) Troponin I Total Protein 6.9 Albumin 3.2 L Globulin 3.7 Albumin/Globulin Ratio 0.9 L Free T4 TSH 3rd Generation Assessment & Plan - Assessment and Plan (Free Text) Assessment: Patient is a 48 yo female who was previously admitted to the ICU twice for b/l PE, LLE DVT, RCA dissection, NSTEMI with cardiac arrest, and renal failure. TECHNICAL SALES SUPPORT SPECIALIST was called for respiratory distress. Patient required BiPap and emergent HD, and she was transferred to the ICU. Plan: Neuro: - No acute issues - A&O x4 - Continue to monitor CV: - H/o Afib with RVR- presently sinus tachycardia - Cardiac cath: EF 45-50%, RCA dissection - Troponin trending down (31.5->0.823) - Crestor 10 mg PO QHS - ASA 81 mg PO daily - Plavix 75 mg PO daily - Warfarin 2mg PO QHS- hold due to supratherapeutic INR (3.6) - Monitor PT/INR - Metoprolol 50 mg PO daily - Nitroglycerin 2% ointment Q6H - Oxycodone 5 mg PO Q6H PRN - Surgery consulted (Mike)- no need for IVC filter, pt tolerating oral anticoagulation - Cardiology consulted (Mejia)- medical management Pulm: - BiPap- wean to NC as tolerated - Incentive spirometry - Duoneb Q4H PRN - Robitussin 100 mg PO Q4H PRN GI: - Heart healthy diet Renal: - Elevated BUN/Cr- improving - Fluid overload - Emergency HD today- repeat CXR post-HD improved fluid status - Strict I's & O's - Nephrology consulted (Natividad)- f/u GBM Ab Endo: - Maintain euglycemia Heme: - Lupus w/u negative - H&H stable, continue to monitor - Rheum consulted (Tamanna) - Heme/onc consulted (Pedro) ID: - Most recent fever 08/17 (100.4) - WBC much improved from earlier in admission - Blood Cx: no growth - Urine Cx: yeast - Sputum Cx: yeast - Discontinue cefepime - Fluconazole 100 mg IV daily - ID consulted (Nohemy) Ppx: VTE: therapeutic warfarin GI: Pepcid 20 mg PO daily, Florastor 250 mg PO BID IVF: not indicated Code status: full code Case discussed with attending, Dr. Brand. PGY-1 Ana Whittaker D.O.
--- NOTE | 2018-08-18 10:56 | RAD ---
Date of service: 08/18/2018 HISTORY: SOB COMPARISON: 08/14/2018 FINDINGS: LUNGS: Interval worsening pulmonary venous congestion now coalescent airspace opacities present. Additional concomitant underlying pathology infiltrates not excluded. PLEURA: Small bilateral pleural effusions.- slightly increased. No pneumothorax CARDIOVASCULAR: No aortic atherosclerotic calcification present Cardiomegaly-similar OSSEOUS STRUCTURES: Thoracic spondylosis. VISUALIZED UPPER ABDOMEN: Postsurgical changes GE junction apparent-round radiopacity near GE junction-similar OTHER FINDINGS: The right internal jugular venous catheter tip projects in the region of the inferior vena cava as it did before. Please correlate clinically IMPRESSION: Worsening pulmonary venous congestion. Small bilateral pleural effusions slightly increased. Cardiomegaly-similar. Findings compatible with worsening congestive heart failure. Other findings as above.
--- NOTE | 2018-08-18 11:11 | RAD ---
Date of service: 08/18/2018 HISTORY: rapid COMPARISON: None available. FINDINGS: LUNGS: Marked dense diffuse confluent airspace opacifications throughout both lungs. PLEURA: As above. CARDIOVASCULAR: No aortic atherosclerotic calcification present Heart obscured. OSSEOUS STRUCTURES: No significant abnormalities. VISUALIZED UPPER ABDOMEN: Normal. OTHER FINDINGS: Lines and tubes in stable position. IMPRESSION: Marked dense diffuse confluent airspace opacifications throughout both lungs.
--- NOTE | 2018-08-18 11:25 | CP.PCM.PN ---
Subjective - Date & Time of Evaluation Date of Evaluation: 08/18/18 Time of Evaluation: 10:05 - Subjective Subjective: Nephrology consult note for Dr. Henson's service - Gelacio Sawyer PGY3 Patient seen and examined at bedside this morning. An AMERICAN INDIAN POLICY SPECIALIST was called this morning due to shortness of breath with tachypnea. She was subsequently transferred to the ICU, placed on BiPAP 10/01 and scheduled for emergent hemodialysis. She reported mild improvement of her symptoms this morning with initiation of HD. Objective - Vital Signs/Intake and Output Vital Signs (last 24 hours): Temp Pulse Resp BP Pulse Ox 98.2 F 124 H 30 H 114/81 98 08/18/18 10:00 08/18/18 10:00 08/18/18 10:00 08/18/18 10:30 08/18/18 09:15 Intake and Output: 08/18/18 08/18/18 06:59 18:59 Intake Total 420 110 Balance 420 110 - Medications Medications: Current Medications Acetaminophen (Tylenol 325mg Tab) 650 mg PO Q6 PRN PRN Reason: Fever >100.4 F Last Admin: 08/14/18 23:55 Dose: 650 mg Albuterol/Ipratropium (Duoneb 3 Mg/0.5 Mg (3 Ml) Ud) 3 ml INH RQ4 PRN PRN Reason: Shortness of Breath Alprazolam (Xanax) 0.25 mg PO TID PRN PRN Reason: Anxiety Stop: 08/18/18 15:46 Last Admin: 08/18/18 03:23 Dose: 0.25 mg Aspirin (Aspirin Chewable) 81 mg PO DAILY [facility] Last Admin: 08/18/18 10:12 Dose: 81 mg Benzocaine/Menthol (Cepacol Sore Throat) 1 naheed MT Q4 PRN PRN Reason: Sore Throat Last Admin: 08/17/18 11:55 Dose: 1 naheed Clopidogrel Bisulfate (Plavix) 75 mg PO DAILY [facility] Last Admin: 08/18/18 10:17 Dose: 75 mg Famotidine (Pepcid) 20 mg PO DAILY [facility] Last Admin: 08/18/18 10:17 Dose: 20 mg Guaifenesin (Robitussin) 100 mg PO Q4H PRN PRN Reason: Cough Last Admin: 08/18/18 07:13 Dose: 100 mg Cefepime HCl 1 gm/ Sodium (Chloride) 100 mls @ 100 mls/hr IVPB Q24H [facility]; Protocol Last Admin: 08/18/18 00:14 Dose: 100 mls/hr Fluconazole 100 mg/ (Miscellaneous) 50 mls @ 100 mls/hr IVPB DAILY [facility]; Pr otocol Last Admin: 08/17/18 10:25 Dose: 100 mls/hr Lidocaine HCl (Lidocaine 2% Viscous) 5 ml PO Q3H PRN PRN Reason: Other Last Admin: 08/14/18 20:34 Dose: 5 ml Metoprolol Succinate (Toprol Xl) 50 mg PO DAILY [facility] Last Admin: 08/17/18 10:25 Dose: 50 mg Nitroglycerin (Nitro-Bid 2% Oint) 1 ea TOP Q6H [facility] Last Admin: 08/18/18 05:45 Dose: 1 ea Oxycodone HCl (Oxycodone Immediate Release Tab) 5 mg PO Q6 PRN PRN Reason: Pain, moderate (4-7) Rosuvastatin Calcium (Crestor) 10 mg PO HS [facility] Last Admin: 08/17/18 21:52 Dose: 10 mg Saccharomyces Boulardii (Florastor) 250 mg PO BID [facility] Last Admin: 08/18/18 10:16 Dose: 250 mg Sodium Chloride ([place] Baby Saline 30 Ml) 0 ml MICHAEL TID [facility] Last Admin: 08/18/18 10:16 Dose: 2 spr Trolamine Salicylate (Aspercreme) 1 gm TOP Q6H PRN PRN Reason: stiff neck Last Admin: 08/18/18 03:34 Dose: 1 gm - Labs Labs: 08/18/18 08:17 08/18/18 08:17 PT 39.5 SECONDS (9.7-12.2) H D 08/18/18 07:37 INR 3.6 D 08/18/18 07:37 APTT 32 SECONDS (21-34) 08/13/18 06:22 - Constitutional Appears: Older Than Stated Age, Chronically Ill - Head Exam Head Exam: ATRAUMATIC, NORMAL INSPECTION, NORMOCEPHALIC - Eye Exam Eye Exam: EOMI, PERRL - ENT Exam ENT Exam: Mucous Membranes Moist - Respiratory Exam Respiratory Exam: Decreased Breath Sounds. absent: Rales, Rhonchi, Wheezes - Cardiovascular Exam Cardiovascular Exam: Tachycardia, +S1, +S2. absent: Gallop, Rubs - GI/Abdominal Exam GI & Abdominal Exam: Soft. absent: Distended, Firm, Guarding, Rigid, Tenderness, Rebound - Extremities Exam Extremities Exam: Pedal Edema. absent: Tenderness Additional comments: 2+ nonpitting edema bilaterally - Neurological Exam Neurological Exam: Alert, Awake, Oriented x3 - Psychiatric Exam Psychiatric exam: Normal Affect, Normal Mood - Skin Skin Exam: Dry, Intact, Normal Color, Warm Assessment and Plan - Assessment and Plan (Free Text) Plan: 48 year old female with history of anxiety, on OCP who presented following a syncopal episode and noted to be in afib with RVR with subsequent respiratory failure secondary to bilateral PE complicated by PNA. Presently she had been extubated and post AMERICAN INDIAN POLICY SPECIALIST placed on BiPAP. Clinical course complicated by renal failure secondary to presumed ATN and elevated troponin s/p cath showing spontaneous right coronary artery dissection. 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
[2018-08-18] MEDS: Fluconazole IV 200mg/100 ml NS 100 MG in Premixed IV 1 EA IVPB SCH (12:31)
[2018-08-18] MEDS: Metoprolol Succinate 50 mg XL Tab PO SCH (12:32)
--- NOTE | 2018-08-18 15:14 | RAD ---
Chest x-ray single frontal view HISTORY: Fluid status. COMPARISON: 08/18/2018 FINDINGS: Moderate venous congestion. Bibasilar airspace opacities. Small bilateral pleural effusions. Enlarged ectatic aorta. Cardiomegaly. Degenerative changes in the spine. Right central venous catheter in stable position. Additional catheter tubing projecting over the left upper abdomen. Impression: Moderate venous congestion. Bibasilar airspace opacities. Small bilateral pleural effusions. Enlarged ectatic aorta. Cardiomegaly.
--- NOTE | 2018-08-18 19:47 | CARD ---
APPROVED REPORT Date of service: 08/09/2018 EXAM: Two-dimensional and M-mode echocardiogram with Doppler and color Doppler. 2D DIMENSIONS IVSd1.1 (0.7-1.1cm)LVDd4.4 (3.9-5.9cm) PWd1.0 (0.7-1.1cm)LA Dkoxnc38 (18-58mL) LVDs3.3 (2.5-4.0cm)FS (%) 26.0 % LVEF (%)51.3 (>50%)LVEF (Kat's)42.78 % M-Mode DIMENSIONS Left Atrium (MM)4.19 (2.5-4.0cm)IVSd0.80 (0.7-1.1cm) Aortic Root3.11 (2.2-3.7cm)LVDd5.54 (4.0-5.6cm) Aortic Cusp Exc.2.35 (1.5-2.0cm)PWd0.74 (0.7-1.1cm) FS (%) 28 %LVDs3.97 (2.0-3.8cm) TAPSE16.59 cmLVEF (%)45 (>50%) Mitral Valve MV E Wjaumxtu834.7cm/sMV A Thjssuwx08.4cm/sE/A ratio1.7 GOGU863.77 cm/s TDI Lateral E' Peak V8.48cm/sMedial E' Peak V6.29cm/sE/Lateral E'13.6 E/Medial E'18.4 Tricuspid Valve TR Peak [id number]/sTR Peak Gr.[id number] LEFT VENTRICLE The left ventricle is normal size. There is normal left ventricular wall thickness. The left ventricular function is normal. The left ventricular ejection fraction is within the normal range. There is normal LV segmental wall motion. The left ventricular diastolic function is normal. RIGHT VENTRICLE The right ventricle is normal size. ATRIA The left atrium is borderline dilated. AORTIC VALVE There is trace to mild aortic regurgitation. MITRAL VALVE Mitral regurgitation is mild. TRICUSPID VALVE There is moderate tricuspid regurgitation. <Conclusion> Normal LV systolic function. Borderline dilated LA. Trace to mild AR. Mild MR. Moderate TR.
[2018-08-18 20:03] LABS: SQUAMOUS EPITHIAL 1 /hpf (0-5); URINE AMORPHOUS SEDIMENT RARE /ul (<OCC); URINE BACTERIA RARE (<OCC); URINE BILIRUBIN NEGATIVE (NEGATIVE); URINE BLOOD 2+ (NEGATIVE); URINE CLARITY Clear (Clear); URINE COLOR Yellow (YELLOW); URINE GLUCOSE (UA) 1+ mg/dL (Normal); URINE LEUKOCYTE ESTERASE NEG Leu/uL (Negative); URINE PROTEIN 2+ mg/dL (NEGATIVE); URINE UROBILINOGEN NORMAL mg/dL (0.2-1.0)
[2018-08-19] MEDS: Nitroglycerin 2% Ointment Foilpak UD TOP SCH ×5 (00:07→23:49)
[2018-08-19 06:42] LABS: BASO % 0.3 % (0.0-2.0); HEMOGLOBIN 8.3 g/dL (11.0-16.0); LYMPH # 1.1 K/uL (1.0-4.3); LYMPH % 8.7 % (20.0-40.0); MEAN CELL VOLUME 81.8 fL (81.0-99.0); MEAN CORPUSCULAR HEMOGLOBIN 26.8 pg (27.0-31.0); MEAN CORPUSCULAR HGB CONC 32.8 g/dL (33.0-37.0); MEAN PLATELET VOLUME 10.7 fL (7.2-11.7); MONO # 0.7 K/uL (0.0-0.8); MONO % 5.8 % (0.0-10.0); NEUT # 10.4 K/uL (1.8-7.0); NEUT % 85.2 % (50.0-75.0); PLATELET COUNT 231 K/uL (130-400); RBC 3.11 Mil/uL (3.80-5.20); RED CELL DISTRIBUTION WIDTH 17.9 % (11.5-14.5); WHITE BLOOD COUNT 12.2 K/uL (4.8-10.8)
[2018-08-19 06:58] LABS: ALB/GLOB RATIO 0.8 (1.0-2.1); ALBUMIN 3.3 g/dL (3.5-5.0); CALCIUM 8.8 mg/dl (8.6-10.4)
[2018-08-19 07:30] LABS: INR 4.1; PROTHROMBIN TIME 45.5 SECONDS (9.7-12.2)
--- NOTE | 2018-08-19 07:38 | CP.CCUPN ---
<Ana Whittaker - Last Filed: 08/19/18 13:52> CCU Subjective - Physician Review Events Since Last Encounter (Free Text): 08/19/18 07:35 PT/INR increase despite holding Coumadin Subjective (Free Text): 08/19/18 07:38 Patient is seen and examined this morning. She is lying in bed, no acute distress. She states that she is having a hard time finding a comfortable position and did not sleep well last night. She complains of pain in her lower back. Her breathing has improved, and she is saturating well on nasal cannula. Critical Care Time Spent (in minutes): 35 CCU Objective - Vital Signs / Intake & Output Vital Signs (Last 4 hours): Vital Signs Temp Pulse Resp BP Pulse Ox 08/19/18 07:00 96 H 25 H 100 08/19/18 06:35 95 H 47 H 107/64 100 08/19/18 06:00 94 H 26 H 100 08/19/18 05:38 99 H 27 H 115/77 99 08/19/18 05:00 95 H 26 H 100 08/19/18 04:35 95 H 23 105/63 100 08/19/18 04:00 97.7 F 99 H 26 H 100 Intake and Output (Last 8hrs): Intake & Output 08/18/18 08/19/18 08/19/18 22:59 06:59 14:59 Intake Total 330 100 0 Output Total 551 600 Balance -221 -500 0 Intake: Intake, IV Amount 130 Left Antecubital 10 Right Hand 120 Oral 200 100 0 Output: Urine 550 600 Urine, Voided 550 600 Urine/Stool Mix 1 Emesis 0 Other: # Voids Urine, Voided 0 0 0 # Bowel Movements 0 0 0 - Physical Exam Head: Positive for: Atraumatic, Normocephalic Pupils: Positive for: PERRL Extroacular Muscles: Positive for: EOMI Conjunctiva: Positive for: Normal Mouth: Positive for: Moist Mucous Membranes Nose (Internal): Positive for: Normal Inspection Neck: Positive for: Normal Range of Motion, Trachea Midline Respiratory/Chest: Positive for: Decreased Breath Sounds, Rales (b/l bases). Negative for: Respiratory Distress, Accessory Muscle Use Cardiovascular: Positive for: Regular Rate and Rhythm, Normal S1, S2 Abdomen: Positive for: Normal Bowel Sounds. Negative for: Tenderness, Distention Back: Positive for: Paraspinal Tenderness Upper Extremity: Positive for: Normal Inspection. Negative for: Cyanosis Lower Extremity: Negative for: CALF TENDERNESS, Temperature Abnormalties Neurological: Positive for: GCS=15, CN II-XII Intact, Speech Normal Skin: Positive for: Warm, Dry, Normal Color Lymphatic: Negative for: Cervical Adenopathy Psychiatric: Positive for: Alert, Oriented x 3, Normal Insight - Medications Active Medications: Active Medications Generic Name Dose Route Start Last Admin Trade Name Freq PRN Reason Stop Dose Admin Acetaminophen 650 mg 08/12/18 23:41 08/14/18 23:55 Tylenol 325mg Tab PO 650 mg Q6 PRN Administration Fever >100.4 F Albuterol/Ipratropium 3 ml 08/18/18 07:29 08/18/18 20:02 Duoneb 3 Mg/0.5 Mg (3 Ml) Ud INH 3 ml RQ4 PRN Administration Shortness of Breath Aspirin 81 mg 08/08/18 10:00 08/18/18 10:12 Aspirin Chewable PO 81 mg DAILY KACY Administration Benzocaine/Menthol 1 naheed 08/13/18 15:28 08/17/18 11:55 Cepacol Sore Throat MT 1 naheed Q4 PRN Administration Sore Throat Clopidogrel Bisulfate 75 mg 08/08/18 10:00 08/18/18 10:17 Plavix PO 75 mg DAILY KACY Administration Famotidine 20 mg 08/08/18 10:00 08/18/18 10:17 Pepcid PO 20 mg DAILY KACY Administration Furosemide 60 mg 08/18/18 19:30 08/18/18 20:00 Lasix IVP 60 mg Q12H KACY Administration Guaifenesin 100 mg 08/10/18 11:22 08/18/18 07:13 Robitussin PO 100 mg Q4H PRN Administration Cough Fluconazole 100 mg/ 50 mls @ 100 mls/hr 08/15/18 10:00 08/18/18 12:31 Miscellaneous IVPB 100 mls/hr DAILY KACY Administration Protocol Lidocaine HCl 5 ml 08/07/18 13:19 08/14/18 20:34 Lidocaine 2% Viscous PO 5 ml Q3H PRN Administration Other Metoprolol Succinate 50 mg 08/08/18 15:00 08/18/18 12:32 Toprol Xl PO 50 mg DAILY KACY Administration Nitroglycerin 1 ea 08/10/18 12:30 08/19/18 06:47 Nitro-Bid 2% Oint TOP 1 ea Q6H KACY Administration Oxycodone HCl 5 mg 08/18/18 07:27 08/19/18 02:41 Oxycodone Immediate Release Tab PO 5 mg Q6 PRN Administration Pain, moderate (4-7) Rosuvastatin Calcium 10 mg 08/10/18 22:00 08/18/18 22:07 Crestor PO 10 mg HS KACY Administration Saccharomyces Boulardii 250 mg 08/05/18 10:00 08/18/18 17:36 Florastor PO 250 mg BID KACY Administration Sodium Chloride 0 ml 08/11/18 10:00 08/18/18 17:37 Lena Baby Saline 30 Ml MICHAEL 2 spr TID KACY Administration Trolamine Salicylate 1 gm 08/16/18 16:55 08/18/18 03:34 Aspercreme TOP 1 gm Q6H PRN Administration stiff neck - Patient Studies Lab Studies: Lab Studies 08/19/18 08/19/18 08/19/18 Range/Units 06:35 06:34 06:34 WBC 12.2 H (4.8-10.8) K/uL RBC 3.11 L (3.80-5.20) Mil/uL Hgb 8.3 L (11.0-16.0) g/dL Hct 25.4 L (34.0-47.0) % MCV 81.8 (81.0-99.0) fL MCH 26.8 L (27.0-31.0) pg MCHC 32.8 L (33.0-37.0) g/dL RDW 17.9 H (11.5-14.5) % Plt Count 231 (130-400) K/uL MPV 10.7 (7.2-11.7) fL Neut % (Auto) 85.2 H (50.0-75.0) % Lymph % (Auto) 8.7 L (20.0-40.0) % [place] % (Auto) 5.8 (0.0-10.0) % Eos % (Auto) 0.0 (0.0-4.0) % Baso % (Auto) 0.3 (0.0-2.0) % Neut # (Auto) 10.4 H (1.8-7.0) K/uL Lymph # (Auto) 1.1 (1.0-4.3) K/uL [place] # (Auto) 0.7 (0.0-0.8) K/uL Eos # (Auto) 0.0 (0.0-0.7) K/uL Baso # (Auto) 0.0 (0.0-0.2) K/uL PT 45.5 H D (9.7-12.2) SECONDS INR 4.1 Sodium 139 (132-148) mmol/L Potassium 4.8 (3.6-5.2) mmol/L Chloride 104 (98-107) mmol/L Carbon Dioxide 18 L (22-30) mmol/L Anion Gap 22 H (10-20) BUN 65 H (7-17) mg/dL Creatinine 3.1 H (0.7-1.2) mg/dL Est GFR ( Amer) 20 Est GFR (Non-Af Amer) 16 Random Glucose 148 H (65-105) mg/dL Calcium 8.8 (8.6-10.4) mg/dl Phosphorus 6.9 H (2.5-4.5) mg/dL Magnesium 1.9 (1.6-2.3) mg/dL Total Bilirubin 0.6 (0.2-1.3) mg/dL AST 41 H D (14-36) U/L ALT 22 (9-52) U/L Alkaline Phosphatase 81 (38-126) U/L Total Protein 7.3 (6.3-8.3) g/dL Albumin 3.3 L (3.5-5.0) g/dL Globulin 4.0 H (2.2-3.9) gm/dL Albumin/Globulin Ratio 0.8 L (1.0-2.1) Free T4 (0.78-2.19) ng/dL TSH 3rd Generation (0.46-4.68) mIU/L Urine Color (YELLOW) Urine Clarity (Clear) Urine pH (5.0-8.0) Ur Specific [place] (1.003-1.030) Urine Protein (NEGATIVE) mg/dL Urine Glucose (UA) (Normal) mg/dL Urine Ketones (NEGATIVE) mg/dL Urine Blood (NEGATIVE) Urine Nitrate (NEGATIVE) Urine Bilirubin (NEGATIVE) Urine Urobilinogen (0.2-1.0) mg/dL Ur Leukocyte Esterase (Negative) Jessica/uL Urine WBC (Auto) (0-5) /hpf Urine RBC (Auto) (0-3) /hpf Ur Squamous Epith Cells (0-5) /hpf Amorphous Sediment (<OCC) /ul Urine Bacteria (<OCC) 08/18/18 08/18/18 08/18/18 Range/Units 19:33 08:17 08:17 WBC 11.0 H (4.8-10.8) K/uL RBC 3.25 L (3.80-5.20) Mil/uL Hgb 8.8 L (11.0-16.0) g/dL Hct 26.3 L (34.0-47.0) % MCV 81.0 (81.0-99.0) fL MCH 26.9 L (27.0-31.0) pg MCHC 33.3 (33.0-37.0) g/dL RDW 17.9 H (11.5-14.5) % Plt Count 269 (130-400) K/uL MPV 10.1 (7.2-11.7) fL Neut % (Auto) 77.9 H (50.0-75.0) % Lymph % (Auto) 12.3 L (20.0-40.0) % [place] % (Auto) 6.8 (0.0-10.0) % Eos % (Auto) 0.1 (0.0-4.0) % Baso % (Auto) 2.9 H (0.0-2.0) % Neut # (Auto) 8.5 H (1.8-7.0) K/uL Lymph # (Auto) 1.4 (1.0-4.3) K/uL [place] # (Auto) 0.8 (0.0-0.8) K/uL Eos # (Auto) 0.0 (0.0-0.7) K/uL Baso # (Auto) 0.3 H (0.0-0.2) K/uL PT (9.7-12.2) SECONDS INR Sodium 142 (132-148) mmol/L Potassium 4.7 (3.6-5.2) mmol/L Chloride 109 H (98-107) mmol/L Carbon Dioxide 17 L (22-30) mmol/L Anion Gap 21 H (10-20) BUN 46 H (7-17) mg/dL Creatinine 3.1 H (0.7-1.2) mg/dL Est GFR ( Amer) 20 Est GFR (Non-Af Amer) 16 Random Glucose 122 H (65-105) mg/dL Calcium 8.7 (8.6-10.4) mg/dl Phosphorus (2.5-4.5) mg/dL Magnesium (1.6-2.3) mg/dL Total Bilirubin 0.6 (0.2-1.3) mg/dL AST 28 (14-36) U/L ALT 19 (9-52) U/L Alkaline Phosphatase 75 (38-126) U/L Total Protein 6.9 (6.3-8.3) g/dL Albumin 3.2 L (3.5-5.0) g/dL Globulin 3.7 (2.2-3.9) gm/dL Albumin/Globulin Ratio 0.9 L (1.0-2.1) Free T4 (0.78-2.19) ng/dL TSH 3rd Generation (0.46-4.68) mIU/L Urine Color Yellow (YELLOW) Urine Clarity Clear (Clear) Urine pH 5.0 (5.0-8.0) Ur Specific [place] 1.012 (1.003-1.030) Urine Protein 2+ H (NEGATIVE) mg/dL Urine Glucose (UA) 1+ (Normal) mg/dL Urine Ketones Negative (NEGATIVE) mg/dL Urine Blood 2+ H (NEGATIVE) Urine Nitrate Negative (NEGATIVE) Urine Bilirubin Negative (NEGATIVE) Urine Urobilinogen Normal (0.2-1.0) mg/dL Ur Leukocyte Esterase Neg (Negative) Jessica/uL Urine WBC (Auto) 5 (0-5) /hpf Urine RBC (Auto) 3 (0-3) /hpf Ur Squamous Epith Cells 1 (0-5) /hpf Amorphous Sediment Rare H (<OCC) /ul Urine Bacteria Rare (<OCC) 08/18/18 08/18/18 08/18/18 Range/Units 07:37 07:37 07:37 WBC (4.8-10.8) K/uL RBC (3.80-5.20) Mil/uL Hgb (11.0-16.0) g/dL Hct (34.0-47.0) % MCV (81.0-99.0) fL MCH (27.0-31.0) pg MCHC (33.0-37.0) g/dL RDW (11.5-14.5) % Plt Count (130-400) K/uL MPV (7.2-11.7) fL Neut % (Auto) (50.0-75.0) % Lymph % (Auto) (20.0-40.0) % [place] % (Auto) (0.0-10.0) % Eos % (Auto) (0.0-4.0) % Baso % (Auto) (0.0-2.0) % Neut # (Auto) (1.8-7.0) K/uL Lymph # (Auto) (1.0-4.3) K/uL [place] # (Auto) (0.0-0.8) K/uL Eos # (Auto) (0.0-0.7) K/uL Baso # (Auto) (0.0-0.2) K/uL PT 39.5 H D (9.7-12.2) SECONDS INR 3.6 D Sodium (132-148) mmol/L Potassium (3.6-5.2) mmol/L Chloride (98-107) mmol/L Carbon Dioxide (22-30) mmol/L Anion Gap (10-20) BUN (7-17) mg/dL Creatinine (0.7-1.2) mg/dL Est GFR ( Amer) Est GFR (Non-Af Amer) Random Glucose (65-105) mg/dL Calcium (8.6-10.4) mg/dl Phosphorus 5.2 H (2.5-4.5) mg/dL Magnesium 1.5 L (1.6-2.3) mg/dL Total Bilirubin (0.2-1.3) mg/dL AST (14-36) U/L ALT (9-52) U/L Alkaline Phosphatase (38-126) U/L Total Protein (6.3-8.3) g/dL Albumin (3.5-5.0) g/dL Globulin (2.2-3.9) gm/dL Albumin/Globulin Ratio (1.0-2.1) Free T4 1.95 (0.78-2.19) ng/dL TSH 3rd Generation (0.46-4.68) mIU/L Urine Color (YELLOW) Urine Clarity (Clear) Urine pH (5.0-8.0) Ur Specific [place] (1.003-1.030) Urine Protein (NEGATIVE) mg/dL Urine Glucose (UA) (Normal) mg/dL Urine Ketones (NEGATIVE) mg/dL Urine Blood (NEGATIVE) Urine Nitrate (NEGATIVE) Urine Bilirubin (NEGATIVE) Urine Urobilinogen (0.2-1.0) mg/dL Ur Leukocyte Esterase (Negative) Jessica/uL Urine WBC (Auto) (0-5) /hpf Urine RBC (Auto) (0-3) /hpf Ur Squamous Epith Cells (0-5) /hpf Amorphous Sediment (<OCC) /ul Urine Bacteria (<OCC) 08/18/18 08/18/18 Range/Units 07:37 07:37 WBC 10.3 D (4.8-10.8) K/uL RBC 3.29 L (3.80-5.20) Mil/uL Hgb 9.0 L (11.0-16.0) g/dL Hct 26.9 L (34.0-47.0) % MCV 81.7 (81.0-99.0) fL MCH 27.3 (27.0-31.0) pg MCHC 33.4 (33.0-37.0) g/dL RDW 17.9 H (11.5-14.5) % Plt Count 251 (130-400) K/uL MPV 10.3 (7.2-11.7) fL Neut % (Auto) 76.6 H (50.0-75.0) % Lymph % (Auto) 14.3 L (20.0-40.0) % [place] % (Auto) 7.7 (0.0-10.0) % Eos % (Auto) 0.2 (0.0-4.0) % Baso % (Auto) 1.2 (0.0-2.0) % Neut # (Auto) 7.9 H (1.8-7.0) K/uL Lymph # (Auto) 1.5 (1.0-4.3) K/uL [place] # (Auto) 0.8 (0.0-0.8) K/uL Eos # (Auto) 0.0 (0.0-0.7) K/uL Baso # (Auto) 0.1 (0.0-0.2) K/uL PT (9.7-12.2) SECONDS INR Sodium 141 (132-148) mmol/L Potassium 4.6 (3.6-5.2) mmol/L Chloride 107 (98-107) mmol/L Carbon Dioxide 17 L (22-30) mmol/L Anion Gap 21 H (10-20) BUN 48 H (7-17) mg/dL Creatinine 3.1 H (0.7-1.2) mg/dL Est GFR ( Amer) 20 Est GFR (Non-Af Amer) 16 Random Glucose 121 H (65-105) mg/dL Calcium 8.8 (8.6-10.4) mg/dl Phosphorus (2.5-4.5) mg/dL Magnesium (1.6-2.3) mg/dL Total Bilirubin 0.7 (0.2-1.3) mg/dL AST 33 (14-36) U/L ALT 17 (9-52) U/L Alkaline Phosphatase 75 (38-126) U/L Total Protein 7.1 (6.3-8.3) g/dL Albumin 3.2 L (3.5-5.0) g/dL Globulin 3.9 (2.2-3.9) gm/dL Albumin/Globulin Ratio 0.8 L (1.0-2.1) Free T4 (0.78-2.19) ng/dL TSH 3rd Generation 4.07 (0.46-4.68) mIU/L Urine Color (YELLOW) Urine Clarity (Clear) Urine pH (5.0-8.0) Ur Specific [place] (1.003-1.030) Urine Protein (NEGATIVE) mg/dL Urine Glucose (UA) (Normal) mg/dL Urine Ketones (NEGATIVE) mg/dL Urine Blood (NEGATIVE) Urine Nitrate (NEGATIVE) Urine Bilirubin (NEGATIVE) Urine Urobilinogen (0.2-1.0) mg/dL Ur Leukocyte Esterase (Negative) Jessica/uL Urine WBC (Auto) (0-5) /hpf Urine RBC (Auto) (0-3) /hpf Ur Squamous Epith Cells (0-5) /hpf Amorphous Sediment (<OCC) /ul Urine Bacteria (<OCC) Laboratory Results - last 24 hr 08/18/18 08/18/18 08/18/18 07:37 07:37 07:37 WBC 10.3 D RBC 3.29 L Hgb 9.0 L Hct 26.9 L MCV 81.7 MCH 27.3 MCHC 33.4 RDW 17.9 H Plt Count 251 MPV 10.3 Neut % (Auto) 76.6 H Lymph % (Auto) 14.3 L [place] % (Auto) 7.7 Eos % (Auto) 0.2 Baso % (Auto) 1.2 Neut # (Auto) 7.9 H Lymph # (Auto) 1.5 [place] # (Auto) 0.8 Eos # (Auto) 0.0 Baso # (Auto) 0.1 PT 39.5 H D INR 3.6 D Sodium 141 Potassium 4.6 Chloride 107 Carbon Dioxide 17 L Anion Gap 21 H BUN 48 H Creatinine 3.1 H Est GFR ( Amer) 20 Est GFR (Non-Af Amer) 16 Random Glucose 121 H Calcium 8.8 Phosphorus Magnesium Total Bilirubin 0.7 AST 33 ALT 17 Alkaline Phosphatase 75 Total Protein 7.1 Albumin 3.2 L Globulin 3.9 Albumin/Globulin Ratio 0.8 L Free T4 TSH 3rd Generation 4.07 Urine Color Urine Clarity Urine pH Ur Specific [place] Urine Protein Urine Glucose (UA) Urine Ketones Urine Blood Urine Nitrate Urine Bilirubin Urine Urobilinogen Ur Leukocyte Esterase Urine WBC (Auto) Urine RBC (Auto) Ur Squamous Epith Cells Amorphous Sediment Urine Bacteria 08/18/18 08/18/18 08/18/18 07:37 07:37 08:17 WBC 11.0 H RBC 3.25 L Hgb 8.8 L Hct 26.3 L MCV 81.0 MCH 26.9 L MCHC 33.3 RDW 17.9 H Plt Count 269 MPV 10.1 Neut % (Auto) 77.9 H Lymph % (Auto) 12.3 L [place] % (Auto) 6.8 Eos % (Auto) 0.1 Baso % (Auto) 2.9 H Neut # (Auto) 8.5 H Lymph # (Auto) 1.4 [place] # (Auto) 0.8 Eos # (Auto) 0.0 Baso # (Auto) 0.3 H PT INR Sodium Potassium Chloride Carbon Dioxide Anion Gap BUN Creatinine Est GFR ( Amer) Est GFR (Non-Af Amer) Random Glucose Calcium Phosphorus 5.2 H Magnesium 1.5 L Total Bilirubin AST ALT Alkaline Phosphatase Total Protein Albumin Globulin Albumin/Globulin Ratio Free T4 1.95 TSH 3rd Generation Urine Color Urine Clarity Urine pH Ur Specific [place] Urine Protein Urine Glucose (UA) Urine Ketones Urine Blood Urine Nitrate Urine Bilirubin Urine Urobilinogen Ur Leukocyte Esterase Urine WBC (Auto) Urine RBC (Auto) Ur Squamous Epith Cells Amorphous Sediment Urine Bacteria 08/18/18 08/18/18 08/19/18 08:17 19:33 06:34 WBC 12.2 H RBC 3.11 L Hgb 8.3 L Hct 25.4 L MCV 81.8 MCH 26.8 L MCHC 32.8 L RDW 17.9 H Plt Count 231 MPV 10.7 Neut % (Auto) 85.2 H Lymph % (Auto) 8.7 L [place] % (Auto) 5.8 Eos % (Auto) 0.0 Baso % (Auto) 0.3 Neut # (Auto) 10.4 H Lymph # (Auto) 1.1 [place] # (Auto) 0.7 Eos # (Auto) 0.0 Baso # (Auto) 0.0 PT INR Sodium 142 Potassium 4.7 Chloride 109 H Carbon Dioxide 17 L Anion Gap 21 H BUN 46 H Creatinine 3.1 H Est GFR ( Amer) 20 Est GFR (Non-Af Amer) 16 Random Glucose 122 H Calcium 8.7 Phosphorus Magnesium Total Bilirubin 0.6 AST 28 ALT 19 Alkaline Phosphatase 75 Total Protein 6.9 Albumin 3.2 L Globulin 3.7 Albumin/Globulin Ratio 0.9 L Free T4 TSH 3rd Generation Urine Color Yellow Urine Clarity Clear Urine pH 5.0 Ur Specific [place] 1.012 Urine Protein 2+ H Urine Glucose (UA) 1+ Urine Ketones Negative Urine Blood 2+ H Urine Nitrate Negative Urine Bilirubin Negative Urine Urobilinogen Normal Ur Leukocyte Esterase Neg Urine WBC (Auto) 5 Urine RBC (Auto) 3 Ur Squamous Epith Cells 1 Amorphous Sediment Rare H Urine Bacteria Rare 08/19/18 08/19/18 06:34 06:35 WBC RBC Hgb Hct MCV MCH MCHC RDW Plt Count MPV Neut % (Auto) Lymph % (Auto) [place] % (Auto) Eos % (Auto) Baso % (Auto) Neut # (Auto) Lymph # (Auto) [place] # (Auto) Eos # (Auto) Baso # (Auto) PT 45.5 H D INR 4.1 Sodium 139 Potassium 4.8 Chloride 104 Carbon Dioxide 18 L Anion Gap 22 H BUN 65 H Creatinine 3.1 H Est GFR ( Amer) 20 Est GFR (Non-Af Amer) 16 Random Glucose 148 H Calcium 8.8 Phosphorus 6.9 H Magnesium 1.9 Total Bilirubin 0.6 AST 41 H D ALT 22 Alkaline Phosphatase 81 Total Protein 7.3 Albumin 3.3 L Globulin 4.0 H Albumin/Globulin Ratio 0.8 L Free T4 TSH 3rd Generation Urine Color Urine Clarity Urine pH Ur Specific [place] Urine Protein Urine Glucose (UA) Urine Ketones Urine Blood Urine Nitrate Urine Bilirubin Urine Urobilinogen Ur Leukocyte Esterase Urine WBC (Auto) Urine RBC (Auto) Ur Squamous Epith Cells Amorphous Sediment Urine Bacteria Fingerstick Blood Sugar Results: 288 Review of Systems - Constitutional Constitutional: absent: Fever, Chills - EENT Eyes: UNREMARKABLE. absent: Change in Vision Nose/Mouth/Throat: UNREMARKABLE. absent: Nasal Congestion - Cardiovascular Cardiovascular: UNREMARKABLE. absent: Chest Pain, Diaphoresis, Dyspnea, Palpitations - Respiratory Respiratory: UNREMARKABLE. absent: Cough, Dyspnea - Gastrointestinal Gastrointestinal: UNREMARKABLE. absent: Abdominal Pain, Constipation, Diarrhea, Nausea, Vomiting - Genitourinary Genitourinary: UNREMARKABLE. absent: Dysuria - Musculoskeletal Musculoskeletal: As Par HPI, Back Pain - Integumentary Integumentary: UNREMARKABLE. absent: Lesions - Neurological Neurological: Weakness. absent: Headaches, Tingling, Tremor, Vertigo - Psychiatric Psychiatric: UNREMARKABLE - Endocrine Endocrine: Fatigue - Hematologic/Lymphatic Hematologic: absent: Easy Bleeding, Easy Bruising, Lymphadenopathy Critical Care Progress Note - Extremities/Vascular Does the Patient have a Central Venous Catheter?: No Does the Patient need a Central Venous Catheter?: No Does the Patient have a Becerril Catheter?: No Does the Patient need a Becerril Catheter?: No - Prophylaxis GI Prophylaxis GI: Pepsid - Prophylaxis DVT Prophylaxis DVT: Warfarin, Ambulatory - Nutrition Nutrition: Nutrition Category Date Time Status Heart Healthy Diet [DIET] Diets 08/17/18 Dinner Active Assessment/Plan - Assessment and Plan (Free Text) Assessment: Patient is a 48 yo female who was previously admitted to the ICU twice for b/l PE, LLE DVT, RCA dissection, NSTEMI with cardiac arrest, and renal failure. 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 Patient required BiPap and emergent HD, and she was transferred to the ICU. Plan: Neuro: - No acute issues - A&O x4 - Continue to monitor CV: - H/o Afib with RVR- presently sinus tachycardia - Cardiac cath: EF 45-50%, RCA dissection - Troponin trending down (31.5->0.823) - Crestor 10 mg PO QHS - ASA 81 mg PO daily - Plavix 75 mg PO daily- hold pending possible renal Bx - Warfarin 2mg PO QHS- hold due to supratherapeutic INR (4.1) - Monitor PT/INR - Metoprolol 50 mg PO daily - Nitroglycerin 2% ointment Q6H - Surgery consulted (Mike)- no need for IVC filter, pt tolerating oral anticoagulation - Cardiology consulted (Mejia)- medical management Pulm: - CXR 08/19: moderate increase in b/l pulm infiltrates, underlying pulm venous congestion - Maintain spO2>92% - Off BiPap- saturating well on NC (99-100%) - Incentive spirometry - Duoneb Q4H PRN - Robitussin 100 mg PO Q4H PRN GI: - FOBT positive - Salmonella equivalent - C. Diff negative - Diarrhea resolved - Heart healthy diet Renal: - Elevated BUN/Cr- stable - Fluid overload - Emergency HD yesterday- repeat CXR post-HD improved fluid status - Strict I's & O's- inadequate urinary output - GBM Ab pending - Lasix 60 mg IV Q12H - Nephrology consulted (Natividad)- possible renal Bx Endo: - Maintain euglycemia Heme: - Lupus w/u negative - H&H stable, continue to monitor - Rheum consulted (Tamanna) - Heme/onc consulted (Pedro) ID: - Most recent fever 08/17 (100.4) - Tylenol 650 mg PO Q6H PRN - HIV, hepatitis negative - WBC much improved from earlier in admission - Blood Cx: no growth - Urine Cx: yeast - Sputum Cx: yeast - Fluconazole 100 mg IV daily - ID consulted (Nohemy) Ppx: VTE: therapeutic warfarin GI: Pepcid 20 mg PO daily, Florastor 250 mg PO BID IVF: not indicated Code status: full code Case discussed with attending, Dr. Brand. PGY-1 Ana Whittaker D.O. <Jm Brand S - Last Filed: 08/19/18 17:44> CCU Objective - Vital Signs / Intake & Output Vital Signs (Last 4 hours): Vital Signs Temp Pulse Resp BP Pulse Ox 08/19/18 17:00 101 H 18 08/19/18 16:33 103 H 31 H 115/69 100 08/19/18 16:00 97.7 F 95 H 24 100 08/19/18 15:32 96 H 22 108/76 100 08/19/18 15:00 94 H 24 100 08/19/18 14:32 93 H 23 106/70 100 08/19/18 14:00 100 H 25 H 99 Intake and Output (Last 8hrs): Intake & Output 08/19/18 08/19/18 08/19/18 06:59 14:59 22:59 Intake Total 100 425 50 Output Total 600 625 300 Balance -500 -200 -250 Weight 152 lb 1.903 oz Intake: Oral 100 425 50 Output: Urine 600 625 300 Urine, Voided 600 625 300 Other: # Voids Urine, Voided 0 0 # Bowel Movements 0 0 - Medications Active Medications: Active Medications Generic Name Dose Route Start Last Admin Trade Name Freq PRN Reason Stop Dose Admin Acetaminophen 650 mg 08/19/18 13:57 Tylenol 325mg Tab PO Q6 PRN Fever >100.4 F or pain Albuterol/Ipratropium 3 ml 08/18/18 07:29 08/18/18 20:02 Duoneb 3 Mg/0.5 Mg (3 Ml) Ud INH 3 ml RQ4 PRN Administration Shortness of Breath Aspirin 81 mg 08/08/18 10:00 08/19/18 10:24 Aspirin Chewable PO 81 mg DAILY KACY Administration Benzocaine/Menthol 1 naheed 08/13/18 15:28 08/17/18 11:55 Cepacol Sore Throat MT 1 naheed Q4 PRN Administration Sore Throat Famotidine 20 mg 08/08/18 10:00 08/19/18 10:24 Pepcid PO 20 mg DAILY KACY Administration Furosemide 60 mg 08/18/18 19:30 08/19/18 07:42 Lasix IVP 60 mg Q12H KACY Administration Guaifenesin 100 mg 08/10/18 11:22 08/18/18 07:13 Robitussin PO 100 mg Q4H PRN Administration Cough Fluconazole 100 mg/ 50 mls @ 100 mls/hr 08/15/18 10:00 08/19/18 10:29 Miscellaneous IVPB 100 mls/hr DAILY KACY Administration Protocol Lidocaine HCl 5 ml 08/07/18 13:19 08/14/18 20:34 Lidocaine 2% Viscous PO 5 ml Q3H PRN Administration Other Metoprolol Succinate 50 mg 08/08/18 15:00 08/19/18 12:34 Toprol Xl PO 50 mg DAILY KACY Administration Nitroglycerin 1 ea 08/10/18 12:30 08/19/18 12:32 Nitro-Bid 2% Oint TOP 1 ea Q6H KACY Administration Rosuvastatin Calcium 10 mg 08/10/18 22:00 08/18/18 22:07 Crestor PO 10 mg HS KACY Administration Saccharomyces Boulardii 250 mg 08/05/18 10:00 08/19/18 10:25 Florastor PO 250 mg BID KACY Administration Sodium Chloride 0 ml 08/11/18 10:00 08/19/18 14:23 Lena Baby Saline 30 Ml MICHAEL 2 spr TID KACY Administration Trolamine Salicylate 1 gm 08/16/18 16:55 08/19/18 10:28 Aspercreme TOP 1 gm Q6H PRN Administration stiff neck - Patient Studies Lab Studies: Microbiology Studies 08/18/18 09:24 MRSA Culture (Admit) - Final Naris MRSA NOT DETECTED Lab Studies 08/19/18 08/19/18 08/19/18 Range/Units 06:35 06:34 06:34 WBC 12.2 H (4.8-10.8) K/uL RBC 3.11 L (3.80-5.20) Mil/uL Hgb 8.3 L (11.0-16.0) g/dL Hct 25.4 L (34.0-47.0) % MCV 81.8 (81.0-99.0) fL MCH 26.8 L (27.0-31.0) pg MCHC 32.8 L (33.0-37.0) g/dL RDW 17.9 H (11.5-14.5) % Plt Count 231 (130-400) K/uL MPV 10.7 (7.2-11.7) fL Neut % (Auto) 85.2 H (50.0-75.0) % Lymph % (Auto) 8.7 L (20.0-40.0) % [place] % (Auto) 5.8 (0.0-10.0) % Eos % (Auto) 0.0 (0.0-4.0) % Baso % (Auto) 0.3 (0.0-2.0) % Neut # (Auto) 10.4 H (1.8-7.0) K/uL Lymph # (Auto) 1.1 (1.0-4.3) K/uL [place] # (Auto) 0.7 (0.0-0.8) K/uL Eos # (Auto) 0.0 (0.0-0.7) K/uL Baso # (Auto) 0.0 (0.0-0.2) K/uL Neutrophils % (Manual) 86 H (50-75) % Lymphocytes % (Manual) 7 L (20-40) % Monocytes % (Manual) 7 (0-10) % Platelet Estimate Normal (NORMAL) Large Platelets Present Giant Platelets Present Hypochromasia (manual) Slight Poikilocytosis (manual Slight Anisocytosis (manual) Slight Target Cells Slight Ovalocytes Slight [place] Cells Slight Acanthocytes (Spur) Slight PT 45.5 H D (9.7-12.2) SECONDS INR 4.1 Sodium 139 (132-148) mmol/L Potassium 4.8 (3.6-5.2) mmol/L Chloride 104 (98-107) mmol/L Carbon Dioxide 18 L (22-30) mmol/L Anion Gap 22 H (10-20) BUN 65 H (7-17) mg/dL Creatinine 3.1 H (0.7-1.2) mg/dL Est GFR ( Amer) 20 Est GFR (Non-Af Amer) 16 POC Glucose (mg/dL) (65-110) mg/dL Random Glucose 148 H (65-105) mg/dL Calcium 8.8 (8.6-10.4) mg/dl Phosphorus 6.9 H (2.5-4.5) mg/dL Magnesium 1.9 (1.6-2.3) mg/dL Total Bilirubin 0.6 (0.2-1.3) mg/dL AST 41 H D (14-36) U/L ALT 22 (9-52) U/L Alkaline Phosphatase 81 (38-126) U/L Total Protein 7.3 (6.3-8.3) g/dL Albumin 3.3 L (3.5-5.0) g/dL Globulin 4.0 H (2.2-3.9) gm/dL Albumin/Globulin Ratio 0.8 L (1.0-2.1) Urine Color (YELLOW) Urine Clarity (Clear) Urine pH (5.0-8.0) Ur Specific [place] (1.003-1.030) Urine Protein (NEGATIVE) mg/dL Urine Glucose (UA) (Normal) mg/dL Urine Ketones (NEGATIVE) mg/dL Urine Blood (NEGATIVE) Urine Nitrate (NEGATIVE) Urine Bilirubin (NEGATIVE) Urine Urobilinogen (0.2-1.0) mg/dL Ur Leukocyte Esterase (Negative) Jessica/uL Urine WBC (Auto) (0-5) /hpf Urine RBC (Auto) (0-3) /hpf Ur Squamous Epith Cells (0-5) /hpf Amorphous Sediment (<OCC) /ul Urine Bacteria (<OCC) 08/18/18 08/18/18 08/18/18 Range/Units 21:16 19:33 16:41 WBC (4.8-10.8) K/uL RBC (3.80-5.20) Mil/uL Hgb (11.0-16.0) g/dL Hct (34.0-47.0) % MCV (81.0-99.0) fL MCH (27.0-31.0) pg MCHC (33.0-37.0) g/dL RDW (11.5-14.5) % Plt Count (130-400) K/uL MPV (7.2-11.7) fL Neut % (Auto) (50.0-75.0) % Lymph % (Auto) (20.0-40.0) % [place] % (Auto) (0.0-10.0) % Eos % (Auto) (0.0-4.0) % Baso % (Auto) (0.0-2.0) % Neut # (Auto) (1.8-7.0) K/uL Lymph # (Auto) (1.0-4.3) K/uL [place] # (Auto) (0.0-0.8) K/uL Eos # (Auto) (0.0-0.7) K/uL Baso # (Auto) (0.0-0.2) K/uL Neutrophils % (Manual) (50-75) % Lymphocytes % (Manual) (20-40) % Monocytes % (Manual) (0-10) % Platelet Estimate (NORMAL) Large Platelets Giant Platelets Hypochromasia (manual) Poikilocytosis (manual Anisocytosis (manual) Target Cells Ovalocytes [place] Cells Acanthocytes (Spur) PT (9.7-12.2) SECONDS INR Sodium (132-148) mmol/L Potassium (3.6-5.2) mmol/L Chloride (98-107) mmol/L Carbon Dioxide (22-30) mmol/L Anion Gap (10-20) BUN (7-17) mg/dL Creatinine (0.7-1.2) mg/dL Est GFR ( Amer) Est GFR (Non-Af Amer) POC Glucose (mg/dL) 213 H 231 H (65-110) mg/dL Random Glucose (65-105) mg/dL Calcium (8.6-10.4) mg/dl Phosphorus (2.5-4.5) mg/dL Magnesium (1.6-2.3) mg/dL Total Bilirubin (0.2-1.3) mg/dL AST (14-36) U/L ALT (9-52) U/L Alkaline Phosphatase (38-126) U/L Total Protein (6.3-8.3) g/dL Albumin (3.5-5.0) g/dL Globulin (2.2-3.9) gm/dL Albumin/Globulin Ratio (1.0-2.1) Urine Color Yellow (YELLOW) Urine Clarity Clear (Clear) Urine pH 5.0 (5.0-8.0) Ur Specific [place] 1.012 (1.003-1.030) Urine Protein 2+ H (NEGATIVE) mg/dL Urine Glucose (UA) 1+ (Normal) mg/dL Urine Ketones Negative (NEGATIVE) mg/dL Urine Blood 2+ H (NEGATIVE) Urine Nitrate Negative (NEGATIVE) Urine Bilirubin Negative (NEGATIVE) Urine Urobilinogen Normal (0.2-1.0) mg/dL Ur Leukocyte Esterase Neg (Negative) Jessica/uL Urine WBC (Auto) 5 (0-5) /hpf Urine RBC (Auto) 3 (0-3) /hpf Ur Squamous Epith Cells 1 (0-5) /hpf Amorphous Sediment Rare H (<OCC) /ul Urine Bacteria Rare (<OCC) Laboratory Results - last 24 hr 08/18/18 08/18/18 08/18/18 16:41 19:33 21:16 WBC RBC Hgb Hct MCV MCH MCHC RDW Plt Count MPV Neut % (Auto) Lymph % (Auto) [place] % (Auto) Eos % (Auto) Baso % (Auto) Neut # (Auto) Lymph # (Auto) [place] # (Auto) Eos # (Auto) Baso # (Auto) Neutrophils % (Manual) Lymphocytes % (Manual) Monocytes % (Manual) Platelet Estimate Large Platelets Giant Platelets Hypochromasia (manual) Poikilocytosis (manual Anisocytosis (manual) Target Cells Ovalocytes [place] Cells Acanthocytes (Spur) PT INR Sodium Potassium Chloride Carbon Dioxide Anion Gap BUN Creatinine Est GFR ( Amer) Est GFR (Non-Af Amer) POC Glucose (mg/dL) 231 H 213 H Random Glucose Calcium Phosphorus Magnesium Total Bilirubin AST ALT Alkaline Phosphatase Total Protein Albumin Globulin Albumin/Globulin Ratio Urine Color Yellow Urine Clarity Clear Urine pH 5.0 Ur Specific [place] 1.012 Urine Protein 2+ H Urine Glucose (UA) 1+ Urine Ketones Negative Urine Blood 2+ H Urine Nitrate Negative Urine Bilirubin Negative Urine Urobilinogen Normal Ur Leukocyte Esterase Neg Urine WBC (Auto) 5 Urine RBC (Auto) 3 Ur Squamous Epith Cells 1 Amorphous Sediment Rare H Urine Bacteria Rare 08/19/18 08/19/18 08/19/18 06:34 06:34 06:35 WBC 12.2 H RBC 3.11 L Hgb 8.3 L Hct 25.4 L MCV 81.8 MCH 26.8 L MCHC 32.8 L RDW 17.9 H Plt Count 231 MPV 10.7 Neut % (Auto) 85.2 H Lymph % (Auto) 8.7 L [place] % (Auto) 5.8 Eos % (Auto) 0.0 Baso % (Auto) 0.3 Neut # (Auto) 10.4 H Lymph # (Auto) 1.1 [place] # (Auto) 0.7 Eos # (Auto) 0.0 Baso # (Auto) 0.0 Neutrophils % (Manual) 86 H Lymphocytes % (Manual) 7 L Monocytes % (Manual) 7 Platelet Estimate Normal Large Platelets Present Giant Platelets Present Hypochromasia (manual) Slight Poikilocytosis (manual Slight Anisocytosis (manual) Slight Target Cells Slight Ovalocytes Slight [place] Cells Slight Acanthocytes (Spur) Slight PT 45.5 H D INR 4.1 Sodium 139 Potassium 4.8 Chloride 104 Carbon Dioxide 18 L Anion Gap 22 H BUN 65 H Creatinine 3.1 H Est GFR ( Amer) 20 Est GFR (Non-Af Amer) 16 POC Glucose (mg/dL) Random Glucose 148 H Calcium 8.8 Phosphorus 6.9 H Magnesium 1.9 Total Bilirubin 0.6 AST 41 H D ALT 22 Alkaline Phosphatase 81 Total Protein 7.3 Albumin 3.3 L Globulin 4.0 H Albumin/Globulin Ratio 0.8 L Urine Color Urine Clarity Urine pH Ur Specific [place] Urine Protein Urine Glucose (UA) Urine Ketones Urine Blood Urine Nitrate Urine Bilirubin Urine Urobilinogen Ur Leukocyte Esterase Urine WBC (Auto) Urine RBC (Auto) Ur Squamous Epith Cells Amorphous Sediment Urine Bacteria Critical Care Progress Note - Nutrition Nutrition: Nutrition Category Date Time Status Heart Healthy Diet [DIET] Diets 08/17/18 Dinner Active Attending/Attestation - Attestation I have personally seen and examined this patient.: Yes I have fully participated in the care of the patient.: Yes I have reviewed all pertinent clinical information: Yes Notes (Text): 08/19/18 17:43 patient seen and examined in the intensive care unit. Patient is off BiPAP and breathing better Continue Lasix Continue anticoagulation Plavix is on hold for renal biopsy Follow-up chest x-ray
[2018-08-19 08:30] LABS: ANISOCYTOSIS SLIGHT; BURR CELLS SLIGHT; HYPOCHROMIC SLIGHT; LYMPHOCYTE 7 % (20-40); MONOCYTE 7 % (0-10); NEUTROPHIL 86 % (50-75); PLATELET ESTIMATE NORMAL (NORMAL); POIKILOCYTOSIS SLIGHT; TOTAL CELLS COUNTED 100
[2018-08-19 08:31] LABS: ACANTHOCYTES SLIGHT; GIANT PLATELETS PRESENT; LARGE PLATELETS PRESENT; OVALOCYTES SLIGHT; TARGET CELLS SLIGHT
--- NOTE | 2018-08-19 09:28 | RAD ---
Date of service: 08/19/2018 HISTORY: pulmonary edema improvement? COMPARISON: Portable chest 08/18/2018, 1:05 p.m.. FINDINGS: LUNGS: Right central venous dialysis catheter unchanged in position. Bilateral infiltrates affect mid to inferior lung zones left greater than right. Overall pattern appears slightly increased bilaterally. PLEURA: No pneumothorax or right pleural effusion. Trace left pleural effusion difficult to exclude. CARDIOVASCULAR: Cardiac silhouette stable. Underlying pulmonary venous congestion in question. OSSEOUS STRUCTURES: No significant abnormalities. VISUALIZED UPPER ABDOMEN: Normal. OTHER FINDINGS: None. IMPRESSION: Moderate increase in bilateral pulmonary infiltrates, left greater than right. Trace of pleural effusion question. Underlying pulmonary venous congestion not excluded.
[2018-08-19] MEDS: Saccharomyces Boulardi 250 mg Cap PO SCH ×2 (10:25→17:49)
[2018-08-19] MEDS: Sodium Chloride Nasal 0.65% Soln (30ml) NAS SCH ×3 (10:25→17:49)
[2018-08-19] MEDS: Trolamine Salicylate 10% Cream (85 gm) TOP PRN ×2 (10:28→17:53)
[2018-08-19] MEDS: Fluconazole IV 200mg/100 ml NS 100 MG in Premixed IV 1 EA IVPB SCH (10:29)
[2018-08-19] MEDS: Metoprolol Succinate 50 mg XL Tab PO SCH (12:34)
--- NOTE | 2018-08-19 13:29 | CP.PCM.PN ---
Subjective - Date & Time of Evaluation Date of Evaluation: 08/19/18 Time of Evaluation: 13:00 - Subjective Subjective: No complaints. Objective - Vital Signs/Intake and Output Vital Signs (last 24 hours): Temp Pulse Resp BP Pulse Ox 97.8 F 100 H 28 H 104/68 100 08/19/18 12:00 08/19/18 13:00 08/19/18 13:00 08/19/18 12:32 08/19/18 13:00 Intake and Output: 08/19/18 08/19/18 06:59 18:59 Intake Total 170 200 Output Total 750 300 Balance -580 -100 - Medications Medications: Current Medications Acetaminophen (Tylenol 325mg Tab) 650 mg PO Q6 PRN PRN Reason: Fever >100.4 F Last Admin: 08/14/18 23:55 Dose: 650 mg Albuterol/Ipratropium (Duoneb 3 Mg/0.5 Mg (3 Ml) Ud) 3 ml INH RQ4 PRN PRN Reason: Shortness of Breath Last Admin: 08/18/18 20:02 Dose: 3 ml Aspirin (Aspirin Chewable) 81 mg PO DAILY [facility] Last Admin: 08/19/18 10:24 Dose: 81 mg Benzocaine/Menthol (Cepacol Sore Throat) 1 naheed MT Q4 PRN PRN Reason: Sore Throat Last Admin: 08/17/18 11:55 Dose: 1 naheed Famotidine (Pepcid) 20 mg PO DAILY [facility] Last Admin: 08/19/18 10:24 Dose: 20 mg Furosemide (Lasix) 60 mg IVP Q12H [facility] Last Admin: 08/19/18 07:42 Dose: 60 mg Guaifenesin (Robitussin) 100 mg PO Q4H PRN PRN Reason: Cough Last Admin: 08/18/18 07:13 Dose: 100 mg Fluconazole 100 mg/ (Miscellaneous) 50 mls @ 100 mls/hr IVPB DAILY [facility]; Protocol Last Admin: 08/19/18 10:29 Dose: 100 mls/hr Lidocaine HCl (Lidocaine 2% Viscous) 5 ml PO Q3H PRN PRN Reason: Other Last Admin: 08/14/18 20:34 Dose: 5 ml Metoprolol Succinate (Toprol Xl) 50 mg PO DAILY [facility] Last Admin: 08/19/18 12:34 Dose: 50 mg Nitroglycerin (Nitro-Bid 2% Oint) 1 ea TOP Q6H [facility] Last Admin: 08/19/18 12:32 Dose: 1 ea Rosuvastatin Calcium (Crestor) 10 mg PO HS [facility] Last Admin: 08/18/18 22:07 Dose: 10 mg Saccharomyces Boulardii (Florastor) 250 mg PO BID [facility] Last Admin: 08/19/18 10:25 Dose: 250 mg Sodium Chloride ([place] Baby Saline 30 Ml) 0 ml MICHAEL TID [facility] Last Admin: 08/19/18 10:25 Dose: 2 spr Trolamine Salicylate (Aspercreme) 1 gm TOP Q6H PRN PRN Reason: stiff neck Last Admin: 08/19/18 10:28 Dose: 1 gm - Labs Labs: 08/19/18 06:34 08/19/18 06:35 PT 45.5 SECONDS (9.7-12.2) H D 08/19/18 06:34 INR 4.1 08/19/18 06:34 APTT 32 SECONDS (21-34) 08/13/18 06:22 - Head Exam Head Exam: ATRAUMATIC - Eye Exam Eye Exam: Normal appearance - ENT Exam ENT Exam: Mucous Membranes Dry - Respiratory Exam Respiratory Exam: Decreased Breath Sounds - Cardiovascular Exam Cardiovascular Exam: +S1, +S2 - GI/Abdominal Exam GI & Abdominal Exam: Normal Bowel Sounds - Extremities Exam Extremities Exam: Pedal Edema Assessment and Plan (1) Pulmonary embolism Assessment & Plan: on coumadin likely provoked from immobility and OCPs Status: Acute (2) DVT (deep venous thrombosis) Assessment & Plan: likely provoked from immobility and OCPs Status: Acute (3) Leukocytosis (leucocytosis) Assessment & Plan: on antifungal Status: Acute
--- NOTE | 2018-08-19 13:38 | CP.PCM.PN ---
<Luis Sawyer - Last Filed: 08/19/18 13:35> Subjective - Date & Time of Evaluation Date of Evaluation: 08/19/18 Time of Evaluation: 13:35 - Subjective Subjective: Nephrology consult note for Dr. Malik's service - Gelacio Idaalli PGY3 Patient seen and examined in ICU at bedside. No acute overnight events or new complaints reported. She appears clinically improved however urine output remains inadequate despite increasing lasix. May require renal biopsy for definitive determination of underlying renal pathology. As such, plavix has been placed on hold. Otherwise, she reports improvement in her breathing. Objective - Vital Signs/Intake and Output Vital Signs (last 24 hours): Temp Pulse Resp BP Pulse Ox 97.8 F 100 H 28 H 104/68 100 08/19/18 12:00 08/19/18 13:00 08/19/18 13:00 08/19/18 12:32 08/19/18 13:00 Intake and Output: 08/19/18 08/19/18 06:59 18:59 Intake Total 170 200 Output Total 750 300 Balance -580 -100 - Medications Medications: Current Medications Acetaminophen (Tylenol 325mg Tab) 650 mg PO Q6 PRN PRN Reason: Fever >100.4 F Last Admin: 08/14/18 23:55 Dose: 650 mg Albuterol/Ipratropium (Duoneb 3 Mg/0.5 Mg (3 Ml) Ud) 3 ml INH RQ4 PRN PRN Reason: Shortness of Breath Last Admin: 08/18/18 20:02 Dose: 3 ml Aspirin (Aspirin Chewable) 81 mg PO DAILY [facility] Last Admin: 08/19/18 10:24 Dose: 81 mg Benzocaine/Menthol (Cepacol Sore Throat) 1 naheed MT Q4 PRN PRN Reason: Sore Throat Last Admin: 08/17/18 11:55 Dose: 1 naheed Famotidine (Pepcid) 20 mg PO DAILY [facility] Last Admin: 08/19/18 10:24 Dose: 20 mg Furosemide (Lasix) 60 mg IVP Q12H [facility] Last Admin: 08/19/18 07:42 Dose: 60 mg Guaifenesin (Robitussin) 100 mg PO Q4H PRN PRN Reason: Cough Last Admin: 08/18/18 07:13 Dose: 100 mg Fluconazole 100 mg/ (Miscellaneous) 50 mls @ 100 mls/hr IVPB [facility]ILY [facility]; Protocol Last Admin: 08/19/18 10:29 Dose: 100 mls/hr Lidocaine HCl (Lidocaine 2% Viscous) 5 ml PO Q3H PRN PRN Reason: Other Last Admin: 08/14/18 20:34 Dose: 5 ml Metoprolol Succinate (Toprol Xl) 50 mg PO DAILY [facility] Last Admin: 08/19/18 12:34 Dose: 50 mg Nitroglycerin (Nitro-Bid 2% Oint) 1 ea TOP Q6H [facility] Last Admin: 08/19/18 12:32 Dose: 1 ea Rosuvastatin Calcium (Crestor) 10 mg PO HS [facility] Last Admin: 08/18/18 22:07 Dose: 10 mg Saccharomyces Boulardii (Florastor) 250 mg PO BID [facility] Last Admin: 08/19/18 10:25 Dose: 250 mg Sodium Chloride ([place] Baby Saline 30 Ml) 0 ml MICHAEL TID [facility] Last Admin: 08/19/18 10:25 Dose: 2 spr Trolamine Salicylate (Aspercreme) 1 gm TOP Q6H PRN PRN Reason: stiff neck Last Admin: 08/19/18 10:28 Dose: 1 gm - Labs Labs: 08/19/18 06:34 08/19/18 06:35 PT 45.5 SECONDS (9.7-12.2) H D 08/19/18 06:34 INR 4.1 08/19/18 06:34 APTT 32 SECONDS (21-34) 08/13/18 06:22 - Constitutional Appears: Chronically Ill - Head Exam Head Exam: ATRAUMATIC, NORMAL INSPECTION, NORMOCEPHALIC - Eye Exam Eye Exam: EOMI Pupil Exam: PERRL - ENT Exam ENT Exam: Mucous Membranes Moist - Respiratory Exam Respiratory Exam: absent: Rales, Rhonchi, Wheezes - Cardiovascular Exam Cardiovascular Exam: Tachycardia, +S1, +S2. absent: Gallop, Rubs - GI/Abdominal Exam GI & Abdominal Exam: Soft. absent: Distended, Firm, Guarding, Rigid, Tenderness - Extremities Exam Extremities Exam: absent: Pedal Edema - Neurological Exam Neurological Exam: Alert, Awake, CN II-XII Intact, Oriented x3 - Psychiatric Exam Psychiatric exam: Normal Affect, Normal Mood - Skin Skin Exam: Dry, Intact, Warm Additional comments: ecchymosis Assessment and Plan - Assessment and Plan (Free Text) Plan: 48 year old female with history of anxiety, on OCP who presented following a syncopal episode and noted to be in afib with RVR with subsequent respiratory failure secondary to bilateral PE complicated by PNA. Presently she had been extubated and post [employer] placed on BiPAP. 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 <Pato Henson - Last Filed: 08/20/18 08:54> Objective - Vital Signs/Intake and Output Vital Signs (last 24 hours): Temp Pulse Resp BP Pulse Ox 98.2 F 98 H 27 H 94/54 L 100 08/20/18 08:00 08/20/18 08:00 08/20/18 08:00 08/20/18 08:09 08/20/18 08:00 Intake and Output: 08/20/18 08/20/18 06:59 18:59 Intake Total 460 100 Output Total 925 200 Balance -465 -100 - Medications Medications: Current Medications Acetaminophen (Tylenol 325mg Tab) 650 mg PO Q6 PRN PRN Reason: Fever >100.4 F or pain Last Admin: 08/20/18 04:43 Dose: 650 mg Albuterol/Ipratropium (Duoneb 3 Mg/0.5 Mg (3 Ml) Ud) 3 ml INH RQ4 PRN PRN Reason: Shortness of Breath Last Admin: 08/19/18 19:34 Dose: 3 ml Aspirin (Aspirin Chewable) 81 mg PO DAILY [facility] Last Admin: 08/19/18 10:24 Dose: 81 mg Benzocaine/Menthol (Cepacol Sore Throat) 1 naheed MT Q4 PRN PRN Reason: Sore Throat Last Admin: 08/19/18 19:31 Dose: 1 naheed Famotidine (Pepcid) 20 mg PO DAILY [facility] Last Admin: 08/19/18 10:24 Dose: 20 mg Furosemide (Lasix) 60 mg IVP Q12H [facility] Last Admin: 08/20/18 08:09 Dose: 60 mg Guaifenesin (Robitussin) 100 mg PO Q4H PRN PRN Reason: Cough Last Admin: 08/18/18 07:13 Dose: 100 mg Fluconazole 100 mg/ (Miscellaneous) 50 mls @ 100 mls/hr IVPB DAILY [facility]; Protocol Last Admin: 08/19/18 10:29 Dose: 100 mls/hr Lidocaine HCl (Lidocaine 2% Viscous) 5 ml PO Q3H PRN PRN Reason: Other Last Admin: 08/14/18 20:34 Dose: 5 ml Metoprolol Succinate (Toprol Xl) 50 mg PO DAILY [facility] Last Admin: 08/19/18 12:34 Dose: 50 mg Nitroglycerin (Nitro-Bid 2% Oint) 1 ea TOP Q6H [facility] Last Admin: 08/20/18 05:43 Dose: 1 ea Rosuvastatin Calcium (Crestor) 10 mg PO HS [facility] Last Admin: 08/19/18 21:15 Dose: 10 mg Saccharomyces Boulardii (Florastor) 250 mg PO BID [facility] Last Admin: 08/19/18 17:49 Dose: 250 mg Sodium Chloride ([place] Baby Saline 30 Ml) 0 ml MICHAEL TID [facility] Last Admin: 08/19/18 17:49 Dose: 2 spr Trolamine Salicylate (Aspercreme) 1 gm TOP Q6H PRN PRN Reason: stiff neck Last Admin: 08/19/18 17:53 Dose: 1 gm - Labs Labs: 08/20/18 06:50 08/20/18 06:50 PT 27.7 SECONDS (9.7-12.2) H D 08/20/18 06:50 INR 2.5 D 08/20/18 06:50 APTT 32 SECONDS (21-34) 08/13/18 06:22 Assessment and Plan (1) Acute renal failure Status: Acute (2) Tachycardia Status: Acute (3) Acute respiratory failure with hypoxemia Status: Acute (4) Hypocalcemia Status: Resolved (5) Metabolic acidosis Status: Acute (6) NSTEMI (non-ST elevated myocardial infarction) Status: Acute Attending/Attestation - Attestation I have personally seen and examined this patient.: Yes I have fully participated in the care of the patient.: Yes I have reviewed all pertinent clinical information, including history, physical exam and plan: Yes Notes (Text): Patient seen and examined; I agree with the resident's note as above with the following additions/edits: 48 yo F w/ no significant pmh admitted with bilateral PE, PNA, septic shock (resolved), BRIAN requiring HD, and new NSTEMI w/ cath showing coronary d issection; Patient underwent emergent UF session yesterday after developing pulmonary edema; 3L UF goal achieved, tolerated well; had not been dialyzed in 1 week as renal function was slowly recovering; still with some dyspnea today but overall much improved symptomatically; on IV lasix 60 mg bid with goal of achieving at least 1L net neg daily fluid balance; Concern remains that BRIAN may not simply be due to ATN as pattern of recovery is atypical for ATN (should have steady and faster decreases in serum creatinine than what patient has shown); bilateral infiltrates are concerning for possibi lity of pulmonary-renal syndrome; will pursue renal biopsy next week if renal function does not improve significantly; discussed with cardiology yesterday and will hold ASA/plavix for biopsy next week (stopping plavix from tomorrow, will stop ASA over weekend); discussed with primary team, will hold further coumadin doses and bridge with IV heparin once INR decreases to ~2.0;
--- NOTE | 2018-08-19 15:49 | CP.PCM.PN ---
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 to ICU and given emergent HD feeling better CXRAy bilateral pulmonary congestion Objective - Vital Signs/Intake and Output Vital Signs (last 24 hours): Temp Pulse Resp BP Pulse Ox 97.8 F 94 H 24 106/70 100 08/19/18 12:00 08/19/18 15:00 08/19/18 15:00 08/19/18 14:32 08/19/18 15:00 Intake and Output: 08/19/18 08/19/18 06:59 18:59 Intake Total 170 425 Output Total 750 625 Balance -580 -200 - Medications Medications: Current Medications Acetaminophen (Tylenol 325mg Tab) 650 mg PO Q6 PRN PRN Reason: Fever >100.4 F or pain Albuterol/Ipratropium (Duoneb 3 Mg/0.5 Mg (3 Ml) Ud) 3 ml INH RQ4 PRN PRN Reason: Shortness of Breath Last Admin: 08/18/18 20:02 Dose: 3 ml Aspirin (Aspirin Chewable) 81 mg PO DAILY [facility] Last Admin: 08/19/18 10:24 Dose: 81 mg Benzocaine/Menthol (Cepacol Sore Throat) 1 naheed MT Q4 PRN PRN Reason: Sore Throat Last Admin: 08/17/18 11:55 Dose: 1 naheed Famotidine (Pepcid) 20 mg PO DAILY [facility] Last Admin: 08/19/18 10:24 Dose: 20 mg Furosemide (Lasix) 60 mg IVP Q12H [facility] Last Admin: 08/19/18 07:42 Dose: 60 mg Guaifenesin (Robitussin) 100 mg PO Q4H PRN PRN Reason: Cough Last Admin: 08/18/18 07:13 Dose: 100 mg Fluconazole 100 mg/ (Miscellaneous) 50 mls @ 100 mls/hr IVPB DAILY [facility]; Protocol Last Admin: 08/19/18 10:29 Dose: 100 mls/hr Lidocaine HCl (Lidocaine 2% Viscous) 5 ml PO Q3H PRN PRN Reason: Other Last Admin: 08/14/18 20:34 Dose: 5 ml Metoprolol Succinate (Toprol Xl) 50 mg PO DAILY [facility] Last Admin: 08/19/18 12:34 Dose: 50 mg Nitroglycerin (Nitro-Bid 2% Oint) 1 ea TOP Q6H [facility] Last Admin: 08/19/18 12:32 Dose: 1 ea Rosuvastatin Calcium (Crestor) 10 mg PO HS [facility] Last Admin: 08/18/18 22:07 Dose: 10 mg Saccharomyces Boulardii (Florastor) 250 mg PO BID [facility] Last Admin: 08/19/18 10:25 Dose: 250 mg Sodium Chloride ([place] Baby Saline 30 Ml) 0 ml MICHAEL TID [facility] Last Admin: 08/19/18 14:23 Dose: 2 spr Trolamine Salicylate (Aspercreme) 1 gm TOP Q6H PRN PRN Reason: stiff neck Last Admin: 08/19/18 10:28 Dose: 1 gm - Labs Labs: 08/19/18 06:34 08/19/18 06:35 PT 45.5 SECONDS (9.7-12.2) H D 08/19/18 06:34 INR 4.1 08/19/18 06:34 APTT 32 SECONDS (21-34) 08/13/18 06:22 - Constitutional Appears: Well - Head Exam Head Exam: ATRAUMATIC, NORMAL INSPECTION, NORMOCEPHALIC - Eye Exam Eye Exam: EOMI, Normal appearance, PERRL Pupil Exam: NORMAL ACCOMODATION, PERRL - ENT Exam ENT Exam: Mucous Membranes Moist, Normal Exam - Neck Exam Neck Exam: Full ROM, Normal Inspection. absent: Lymphadenopathy - Respiratory Exam Respiratory Exam: Clear to Ausculation Bilateral, Rales - Cardiovascular Exam Cardiovascular Exam: REGULAR RHYTHM, +S1, +S2, Murmur - GI/Abdominal Exam GI & Abdominal Exam: Soft, Normal Bowel Sounds. absent: Tenderness - Extremities Exam Extremities Exam: Full ROM, Normal Capillary Refill, Normal Inspection. absent: Joint Swelling, Pedal Edema - Back Exam Back Exam: NORMAL INSPECTION - Neurological Exam Neurological Exam: Alert, Awake, CN II-XII Intact, Normal Gait, Oriented x3 - Psychiatric Exam Psychiatric exam: Normal Affect, Normal Mood - Skin Skin Exam: Dry, Intact, Normal Color, Warm Assessment and Plan (1) Pulmonary congestion Assessment & Plan: cont lasix add BB if BP tolerates low dose ARB Status: Acute (2) Coronary artery dissection Assessment & Plan: BB , cont OAC Status: Acute (3) Renal failure Assessment & Plan: HD Status: Acute (4) Acute respiratory failure with hypoxemia Status: Acute (5) NSTEMI (non-ST elevated myocardial infarction) Status: Acute (6) Pulmonary embolism Status: Acute
--- NOTE | 2018-08-19 17:15 | CP.PCM.PN ---
Subjective - Date & Time of Evaluation Date of Evaluation: 08/19/18 Time of Evaluation: 18:02 - Subjective Subjective: patient was seen and examined this morning, She was sitting on the bed with mild sob Had dialysis yesterday morning due to pulmonary edema and respiratory distress. denies chest pain Patient was not able to sleep last night. Anxious and feels like to catch breath.Day time she feels better Patient 's daughter at bed side This morning spoke to the the patient and daughter with translation service this afternoon with the RN speaks her language all questions answered Objective - Vital Signs/Intake and Output Vital Signs (last 24 hours): Temp Pulse Resp BP Pulse Ox 97.7 F 95 H 24 108/76 100 08/19/18 16:00 08/19/18 16:00 08/19/18 16:00 08/19/18 15:32 08/19/18 16:00 Intake and Output: 08/19/18 08/19/18 06:59 18:59 Intake Total 170 475 Output Total 750 625 Balance -580 -150 - Medications Medications: Current Medications Acetaminophen (Tylenol 325mg Tab) 650 mg PO Q6 PRN PRN Reason: Fever >100.4 F or pain Albuterol/Ipratropium (Duoneb 3 Mg/0.5 Mg (3 Ml) Ud) 3 ml INH RQ4 PRN PRN Reason: Shortness of Breath Last Admin: 08/18/18 20:02 Dose: 3 ml Aspirin (Aspirin Chewable) 81 mg PO DAILY [facility] Last Admin: 08/19/18 10:24 Dose: 81 mg Benzocaine/Menthol (Cepacol Sore Throat) 1 naheed MT Q4 PRN PRN Reason: Sore Throat Last Admin: 08/17/18 11:55 Dose: 1 naheed Famotidine (Pepcid) 20 mg PO DAILY [facility]Y Last Admin: 08/19/18 10:24 Dose: 20 mg Furosemide (Lasix) 60 mg IVP Q12H [facility] Last Admin: 08/19/18 07:42 Dose: 60 mg Guaifenesin (Robitussin) 100 mg PO Q4H PRN PRN Reason: Cough Last Admin: 08/18/18 07:13 Dose: 100 mg Fluconazole 100 mg/ (Miscellaneous) 50 mls @ 100 mls/hr IVPB DAILY KACY; Protocol Last Admin: 08/19/18 10:29 Dose: 100 mls/hr Lidocaine HCl (Lidocaine 2% Viscous) 5 ml PO Q3H PRN PRN Reason: Other Last Admin: 08/14/18 20:34 Dose: 5 ml Metoprolol Succinate (Toprol Xl) 50 mg PO DAILY [facility] Last Admin: 08/19/18 12:34 Dose: 50 mg Nitroglycerin (Nitro-Bid 2% Oint) 1 ea TOP Q6H [facility] Last Admin: 08/19/18 12:32 Dose: 1 ea Rosuvastatin Calcium (Crestor) 10 mg PO HS [facility] Last Admin: 08/18/18 22:07 Dose: 10 mg Saccharomyces Boulardii (Florastor) 250 mg PO BID [facility] Last Admin: 08/19/18 10:25 Dose: 250 mg Sodium Chloride ([place] Baby Saline 30 Ml) 0 ml MICHAEL TID [facility] Last Admin: 08/19/18 14:23 Dose: 2 spr Trolamine Salicylate (Aspercreme) 1 gm TOP Q6H PRN PRN Reason: stiff neck Last Admin: 08/19/18 10:28 Dose: 1 gm - Labs Labs: 08/19/18 06:34 08/19/18 06:35 PT 45.5 SECONDS (9.7-12.2) H D 08/19/18 06:34 INR 4.1 08/19/18 06:34 APTT 32 SECONDS (21-34) 08/13/18 06:22 - Constitutional Appears: Non-toxic, Chronically Ill - Head Exam Head Exam: NORMAL INSPECTION - Eye Exam Eye Exam: Normal appearance - ENT Exam ENT Exam: Mucous Membranes Moist - Neck Exam Neck Exam: Full ROM - Respiratory Exam Respiratory Exam: Rales - Cardiovascular Exam Cardiovascular Exam: REGULAR RHYTHM - GI/Abdominal Exam GI & Abdominal Exam: Soft, Normal Bowel Sounds - Extremities Exam Extremities Exam: Full ROM, Normal Inspection - Back Exam Back Exam: NORMAL INSPECTION - Neurological Exam Neurological Exam: Awake, Oriented x3 - Psychiatric Exam Psychiatric exam: Normal Mood - Skin Skin Exam: Dry, Warm Assessment and Plan - Assessment and Plan (Free Text) Plan: 1.Acute renal failure/pulmonary edema Nephro consult Dr. Henson Patient had urgent dialysis yesterday monring. Monitor her UOP. Had 750ml urine in last 12hours Her creatinine is not getting better,remains the same d/w Dr Henson. Plaaning fo kidney biopsy. Plavix on hold Hold coumadin . Her INR is 4.1. I will monitor INR off coumadin. 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 Bilateral PE and DVT CTA chest: extensive b/l lower lobe proximal pulmonary emboli distal on margins of R and L pulmonary arteries, lower lobe of branches and proximal segmental branches b/l. smaller emboli within segmental/subsegmental branches of upper and middle lobes LE duplex: acute thrombosis of L common femoral vein ECHO: EF 50-55%, mild to moderate TR and pulmonary HTN - INR 4.1 hold coumadin ,follow INR,Start on heparin drip if INR is below 2.0.(Planning for renal biopsy) 4.Pneumonia Chest x ray likely more congestion,no fever Treated with cefepime ID consulted, Dr. Slater - f/u recs 5.Fungal infection/uti on diflucan 6.Intially Atrial Fibrillation with RVR now NSR,on metoprolol has sinus tachy 7.Anxiety - Xanax 0.25mg tonight GI/DVT ppx: pepsid for GI On coumadin for DVT
[2018-08-19] MEDS: Benzocaine/Menthol (Cepacol) Lozenge MT PRN (19:31)
[2018-08-19] MEDS: Albuterol-Ipratrop 3 mg / 0.5 (3 ml) UD INH PRN (19:34)
--- NOTE | 2018-08-19 23:51 | CARD ---
APPROVED REPORT Date of service: 08/17/2018 EKG Measurement Heart [id number] <Conclusion> Sinus tachycardia Left posterior fascicular block Nonspecific T wave abnormality Abnormal ECG
[2018-08-20] MEDS: Nitroglycerin 2% Ointment Foilpak UD TOP SCH ×3 (05:43→17:36)
[2018-08-20 07:03] LABS: BASO % 0.1 % (0.0-2.0); EOS % 0.5 % (0.0-4.0); HEMOGLOBIN 7.8 g/dL (11.0-16.0); LYMPH # 0.9 K/uL (1.0-4.3); LYMPH % 10.8 % (20.0-40.0); MEAN CELL VOLUME 81.4 fL (81.0-99.0); MEAN CORPUSCULAR HEMOGLOBIN 27.8 pg (27.0-31.0); MEAN CORPUSCULAR HGB CONC 34.1 g/dL (33.0-37.0); MEAN PLATELET VOLUME 10.4 fL (7.2-11.7); MONO # 0.5 K/uL (0.0-0.8); MONO % 5.5 % (0.0-10.0); NEUT % 83.1 % (50.0-75.0); NRBC % 0.3 % (0.0-2.0); RBC 2.81 Mil/uL (3.80-5.20); RED CELL DISTRIBUTION WIDTH 18.2 % (11.5-14.5); WHITE BLOOD COUNT 8.4 K/uL (4.8-10.8)
[2018-08-20 07:12] LABS: ALB/GLOB RATIO 0.9 (1.0-2.1); CALCIUM 8.4 mg/dl (8.6-10.4)
[2018-08-20 07:34] LABS: INR 2.5; PROTHROMBIN TIME 27.7 SECONDS (9.7-12.2)
[2018-08-20] MEDS ORDERED: Magnesium Sulfate 1 gm in D5W 1 GM/100 ML BAG IVPB ONE (07:34)
--- NOTE | 2018-08-20 07:42 | CP.CCUPN ---
<Ana Whittaker - Last Filed: 08/20/18 14:32> CCU Subjective - Physician Review Events Since Last Encounter (Free Text): 08/20/18 07:40 No events over night Subjective (Free Text): 08/20/18 07:40 Patient is seen and examined this morning. She is sitting upright in a chair. Daughter is at bedside. Patient states she is feeling improved and was able to sleep some last night. She is still very fatigued. She is breathing well on room air. Critical Care Time Spent (in minutes): 35 CCU Objective - Vital Signs / Intake & Output Vital Signs (Last 4 hours): Vital Signs Temp Pulse Resp BP Pulse Ox 08/20/18 07:00 105 H 22 98 08/20/18 06:32 103 H 25 H 98/58 L 97 08/20/18 06:00 102 H 13 96 08/20/18 05:32 103 H 29 H 96/55 L 08/20/18 05:00 107 H 20 100 08/20/18 04:32 108 H 33 H 104/61 08/20/18 04:00 98.7 F 105 H 31 H 110/62 98 Intake and Output (Last 8hrs): Intake & Output 08/19/18 08/20/18 08/20/18 22:59 06:59 14:59 Intake Total 330 280 0 Output Total 450 775 0 Balance -120 -495 0 Weight 159 lb 9.835 oz Intake: Intake, IV Amount 0 0 0 RIJ trialysis 0 0 0 Right Hand 0 0 0 Oral 330 280 0 Output: Urine 450 775 0 Urine, Voided 450 775 0 Emesis 0 0 0 Other: # Voids Urine, Voided 1 # Bowel Movements 0 0 0 - Physical Exam Head: Positive for: Atraumatic, Normocephalic Pupils: Positive for: PERRL Extroacular Muscles: Positive for: EOMI Conjunctiva: Positive for: Normal Mouth: Positive for: Moist Mucous Membranes Nose (Internal): Positive for: Normal Inspection Neck: Positive for: Normal Range of Motion, Trachea Midline Respiratory/Chest: Positive for: Decreased Breath Sounds, Rales (b/l bases). Negative for: Respiratory Distress, Accessory Muscle Use Cardiovascular: Positive for: Regular Rate and Rhythm, Normal S1, S2, Tachycardic Abdomen: Positive for: Normal Bowel Sounds. Negative for: Tenderness, Distention Back: Positive for: Paraspinal Tenderness Upper Extremity: Positive for: Normal Inspection. Negative for: Cyanosis Lower Extremity: Negative for: CALF TENDERNESS, Temperature Abnormalties Neurological: Positive for: GCS=15, CN II-XII Intact, Speech Normal Skin: Positive for: Warm, Dry, Normal Color Lymphatic: Negative for: Cervical Adenopathy Psychiatric: Positive for: Alert, Oriented x 3, Normal Insight - Medications Active Medications: Active Medications Generic Name Dose Route Start Last Admin Trade Name Freq PRN Reason Stop Dose Admin Acetaminophen 650 mg 08/19/18 13:57 08/20/18 04:43 Tylenol 325mg Tab PO 650 mg Q6 PRN Administration Fever >100.4 F or pain Albuterol/Ipratropium 3 ml 08/18/18 07:29 08/19/18 19:34 Duoneb 3 Mg/0.5 Mg (3 Ml) Ud INH 3 ml RQ4 PRN Administration Shortness of Breath Aspirin 81 mg 08/08/18 10:00 08/19/18 10:24 Aspirin Chewable PO 81 mg DAILY KACY Administration Benzocaine/Menthol 1 naheed 08/13/18 15:28 08/19/18 19:31 Cepacol Sore Throat MT 1 naheed Q4 PRN Administration Sore Throat Famotidine 20 mg 08/08/18 10:00 08/19/18 10:24 Pepcid PO 20 mg DAILY KACY Administration Furosemide 60 mg 08/18/18 19:30 08/19/18 19:39 Lasix IVP 60 mg Q12H KACY Administration Guaifenesin 100 mg 08/10/18 11:22 08/18/18 07:13 Robitussin PO 100 mg Q4H PRN Administration Cough Fluconazole 100 mg/ 50 mls @ 100 mls/hr 08/15/18 10:00 08/19/18 10:29 Miscellaneous IVPB 100 mls/hr DAILY KACY Administration Protocol Magnesium Sulfate/Dextrose 1 gm in 100 mls @ 200 mls/hr 08/20/18 07:34 Magnesium Sulfate 1 Gm/100 Ml D5w IVPB 08/20/18 08:03 ONCE ONE Lidocaine HCl 5 ml 08/07/18 13:19 08/14/18 20:34 Lidocaine 2% Viscous PO 5 ml Q3H PRN Administration Other Metoprolol Succinate 50 mg 08/08/18 15:00 08/19/18 12:34 Toprol Xl PO 50 mg DAILY AKCY Administration Nitroglycerin 1 ea 08/10/18 12:30 08/20/18 05:43 Nitro-Bid 2% Oint TOP 1 ea Q6H KACY Administration Rosuvastatin Calcium 10 mg 08/10/18 22:00 08/19/18 21:15 Crestor PO 10 mg HS KACY Administration Saccharomyces Boulardii 250 mg 08/05/18 10:00 08/19/18 17:49 Florastor PO 250 mg BID KACY Administration Sodium Chloride 0 ml 08/11/18 10:00 08/19/18 17:49 Gulliver Baby Saline 30 Ml MICHAEL 2 spr TID KACY Administration Trolamine Salicylate 1 gm 08/16/18 16:55 08/19/18 17:53 Aspercreme TOP 1 gm Q6H PRN Administration stiff neck - Patient Studies Lab Studies: Microbiology Studies 08/18/18 09:24 MRSA Culture (Admit) - Final Naris MRSA NOT DETECTED Lab Studies 08/20/18 08/20/18 08/20/18 Range/Units 06:50 06:50 06:50 WBC 8.4 (4.8-10.8) K/uL RBC 2.81 L (3.80-5.20) Mil/uL Hgb 7.8 L (11.0-16.0) g/dL Hct 22.9 L (34.0-47.0) % MCV 81.4 (81.0-99.0) fL MCH 27.8 (27.0-31.0) pg MCHC 34.1 (33.0-37.0) g/dL RDW 18.2 H (11.5-14.5) % Plt Count 278 (130-400) K/uL MPV 10.4 (7.2-11.7) fL Neut % (Auto) 83.1 H (50.0-75.0) % Lymph % (Auto) 10.8 L (20.0-40.0) % [place] % (Auto) 5.5 (0.0-10.0) % Eos % (Auto) 0.5 (0.0-4.0) % Baso % (Auto) 0.1 (0.0-2.0) % Neut # (Auto) 7.0 (1.8-7.0) K/uL Lymph # (Auto) 0.9 L (1.0-4.3) K/uL [place] # (Auto) 0.5 (0.0-0.8) K/uL Eos # (Auto) 0.0 (0.0-0.7) K/uL Baso # (Auto) 0.0 (0.0-0.2) K/uL Neutrophils % (Manual) (50-75) % Lymphocytes % (Manual) (20-40) % Monocytes % (Manual) (0-10) % Platelet Estimate (NORMAL) Large Platelets Giant Platelets Hypochromasia (manual) Poikilocytosis (manual Anisocytosis (manual) Target Cells Ovalocytes [place] Cells Acanthocytes (Spur) PT 27.7 H D (9.7-12.2) SECONDS INR 2.5 D Sodium 140 (132-148) mmol/L Potassium 3.8 (3.6-5.2) mmol/L Chloride 105 (98-107) mmol/L Carbon Dioxide 22 (22-30) mmol/L Anion Gap 18 (10-20) BUN 71 H (7-17) mg/dL Creatinine 2.9 H (0.7-1.2) mg/dL Est GFR ( Amer) 21 Est GFR (Non-Af Amer) 17 POC Glucose (mg/dL) (65-110) mg/dL Random Glucose 93 (65-105) mg/dL Calcium 8.4 L (8.6-10.4) mg/dl Phosphorus 4.9 H (2.5-4.5) mg/dL Magnesium 1.6 (1.6-2.3) mg/dL Total Bilirubin 0.5 (0.2-1.3) mg/dL AST 66 H D (14-36) U/L ALT 40 (9-52) U/L Alkaline Phosphatase 135 H D (38-126) U/L Total Protein 6.5 (6.3-8.3) g/dL Albumin 3.0 L (3.5-5.0) g/dL Globulin 3.5 (2.2-3.9) gm/dL Albumin/Globulin Ratio 0.9 L (1.0-2.1) 08/19/18 08/18/1808/18/18 Range/Units 06:34 21:16 16:41 WBC (4.8-10.8) K/uL RBC (3.80-5.20) Mil/uL Hgb (11.0-16.0) g/dL Hct (34.0-47.0) % MCV (81.0-99.0) fL MCH (27.0-31.0) pg MCHC (33.0-37.0) g/dL RDW (11.5-14.5) % Plt Count (130-400) K/uL MPV (7.2-11.7) fL Neut % (Auto) (50.0-75.0) % Lymph % (Auto) (20.0-40.0) % [place] % (Auto) (0.0-10.0) % Eos % (Auto) (0.0-4.0) % Baso % (Auto) (0.0-2.0) % Neut # (Auto) (1.8-7.0) K/uL Lymph # (Auto) (1.0-4.3) K/uL [place] # (Auto) (0.0-0.8) K/uL Eos # (Auto) (0.0-0.7) K/uL Baso # (Auto) (0.0-0.2) K/uL Neutrophils % (Manual) 86 H (50-75) % Lymphocytes % (Manual) 7 L (20-40) % Monocytes % (Manual) 7 (0-10) % Platelet Estimate Normal (NORMAL) Large Platelets Present Giant Platelets Present Hypochromasia (manual) Slight Poikilocytosis (manual Slight Anisocytosis (manual) Slight Target Cells Slight Ovalocytes Slight Kya Cells Slight Acanthocytes (Spur) Slight PT (9.7-12.2) SECONDS INR Sodium (132-148) mmol/L Potassium (3.6-5.2) mmol/L Chloride (98-107) mmol/L Carbon Dioxide (22-30) mmol/L Anion Gap (10-20) BUN (7-17) mg/dL Creatinine (0.7-1.2) mg/dL Est GFR ( Amer) Est GFR (Non-Af Amer) POC Glucose (mg/dL) 213 H 231 H (65-110) mg/dL Random Glucose (65-105) mg/dL Calcium (8.6-10.4) mg/dl Phosphorus (2.5-4.5) mg/dL Magnesium (1.6-2.3) mg/dL Total Bilirubin (0.2-1.3) mg/dL AST (14-36) U/L ALT (9-52) U/L Alkaline Phosphatase (38-126) U/L Total Protein (6.3-8.3) g/dL Albumin (3.5-5.0) g/dL Globulin (2.2-3.9) gm/dL Albumin/Globulin Ratio (1.0-2.1) Laboratory Results - last 24 hr 08/18/18 08/18/18 08/19/18 16:41 21:16 06:34 WBC RBC Hgb Hct MCV MCH MCHC RDW Plt Count MPV Neut % (Auto) Lymph % (Auto) [place] % (Auto) Eos % (Auto) Baso % (Auto) Neut # (Auto) Lymph # (Auto) [place] # (Auto) Eos # (Auto) Baso # (Auto) Neutrophils % (Manual) 86 H Lymphocytes % (Manual) 7 L Monocytes % (Manual) 7 Platelet Estimate Normal Large Platelets Present Giant Platelets Present Hypochromasia (manual) Slight Poikilocytosis (manual Slight Anisocytosis (manual) Slight Target Cells Slight Ovalocytes Slight Kya Cells Slight Acanthocytes (Spur) Slight PT INR Sodium Potassium Chloride Carbon Dioxide Anion Gap BUN Creatinine Est GFR ( Amer) Est GFR (Non-Af Amer) POC Glucose (mg/dL) 231 H 213 H Random Glucose Calcium Phosphorus Magnesium Total Bilirubin AST ALT Alkaline Phosphatase Total Protein Albumin Globulin Albumin/Globulin Ratio 08/20/18 08/20/18 08/20/18 06:50 06:50 06:50 WBC 8.4 RBC 2.81 L Hgb 7.8 L Hct 22.9 L MCV 81.4 MCH 27.8 MCHC 34.1 RDW 18.2 H Plt Count 278 MPV 10.4 Neut % (Auto) 83.1 H Lymph % (Auto) 10.8 L [place] % (Auto) 5.5 Eos % (Auto) 0.5 Baso % (Auto) 0.1 Neut # (Auto) 7.0 Lymph # (Auto) 0.9 L [place] # (Auto) 0.5 Eos # (Auto) 0.0 Baso # (Auto) 0.0 Neutrophils % (Manual) Lymphocytes % (Manual) Monocytes % (Manual) Platelet Estimate Large Platelets Giant Platelets Hypochromasia (manual) Poikilocytosis (manual Anisocytosis (manual) Target Cells Ovalocytes Kya Cells Acanthocytes (Spur) PT 27.7 H D INR 2.5 D Sodium 140 Potassium 3.8 Chloride 105 Carbon Dioxide 22 Anion Gap 18 BUN 71 H Creatinine 2.9 H Est GFR ( Amer) 21 Est GFR (Non-Af Amer) 17 POC Glucose (mg/dL) Random Glucose 93 Calcium 8.4 L Phosphorus 4.9 H Magnesium 1.6 Total Bilirubin 0.5 AST 66 H D ALT 40 Alkaline Phosphatase 135 H D Total Protein 6.5 Albumin 3.0 L Globulin 3.5 Albumin/Globulin Ratio 0.9 L Fingerstick Blood Sugar Results: 288 Results Reviewed to Date: Yes Review of Systems - Constitutional Constitutional: Weakness. absent: Fever, Chills - EENT Eyes: UNREMARKABLE Ears: UNREMARKABLE Nose/Mouth/Throat: UNREMARKABLE - Cardiovascular Cardiovascular: Rapid Heart Rate. absent: Chest Pain, Dyspnea - Respiratory Respiratory: Cough. absent: Dyspnea, Hemoptysis - Gastrointestinal Gastrointestinal: UNREMARKABLE. absent: Abdominal Pain, Constipation, Diarrhea, Nausea, Vomiting - Genitourinary Genitourinary: UNREMARKABLE - Musculoskeletal Musculoskeletal: Back Pain - Integumentary Integumentary: UNREMARKABLE - Neurological Neurological: UNREMARKABLE - Psychiatric Psychiatric: Anxiety - Endocrine Endocrine: Fatigue - Hematologic/Lymphatic Hematologic: UNREMARKABLE Critical Care Progress Note - Extremities/Vascular Does the Patient have a Central Venous Catheter?: Yes Insertion Site: Internal Jugular Vein (Left) Does the Patient need a Central Venous Catheter?: Yes Does the Patient have a Becerril Catheter?: No Does the Patient need a Becerril Catheter?: No - Prophylaxis GI Prophylaxis GI: Pepsid - Prophylaxis DVT Prophylaxis DVT: Warfarin - Nutrition Nutrition: Nutrition Category Date Time Status Heart Healthy Diet [DIET] Diets 08/17/18 Dinner Active Assessment/Plan - Assessment and Plan (Free Text) Assessment: Patient is a 48 yo female who was previously admitted to the ICU twice for b/l PE, LLE DVT, RCA dissection, NSTEMI with cardiac arrest, and renal failure. 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 Patient required BiPap and emergent HD, and she was transferred to the ICU. Breathing has improved. BUN/Cr is not improving- will likely need renal Bx. Plan: Neuro: - No acute issues - A&O x4 - Continue to monitor CV: - H/o Afib with RVR- presently sinus tachycardia - Cardiac cath: EF 45-50%, RCA dissection - Troponin trending down (31.5->0.823) - Crestor 10 mg PO QHS - ASA 81 mg PO daily - Plavix 75 mg PO daily- hold pending possible renal Bx - Warfarin 2mg PO QHS- hold due to pending Bx - Monitor PT/INR- 2.5 today - Start heparin drip - Metoprolol 50 mg PO daily - Nitroglycerin 2% ointment Q6H - Surgery consulted (Mike)- no need for IVC filter, pt tolerating oral anticoagulation - Cardiology consulted (Mejia)- medical management Pulm: - CXR 08/19: moderate increase in b/l pulm infiltrates, underlying pulm venous congestion - CT chest pending - Maintain spO2>92% - Off BiPap- saturating well on RA (>96%) - Incentive spirometry - Duoneb Q4H PRN - Robitussin 100 mg PO Q4H PRN GI: - FOBT positive - Salmonella equivalent - C. Diff negative - Diarrhea resolved - Heart healthy diet - Florastor 250 mg PO BID Renal: - Elevated BUN/Cr- stable - Fluid overload - Emergency HD 08/18 - Strict I's & O's - GBM Ab pending - Lasix 60 mg IV Q12H - Nephrology consulted (Natividad)- possible renal Bx Endo: - Maintain euglycemia Heme: - Lupus w/u negative - H&H stable, continue to monitor - Rheum consulted (Tamanna) - Heme/onc consulted (Pedro) ID: - Most recent fever 08/17 (100.4) - Tylenol 650 mg PO Q6H PRN - HIV, hepatitis negative - WBC much improved from earlier in admission - Blood Cx: no growth - Urine Cx: yeast - Sputum Cx: yeast - Fluconazole 100 mg IV daily - ID consulted (Nohemy) Ppx: VTE: therapeutic warfarin GI: Pepcid 20 mg PO daily IVF: not indicated Code status: full code Case discussed with attending, Dr. Ruano. PGY-1 Ana Whittaker D.O. <Aftab Ruano - Last Filed: 08/20/18 16:57> CCU Objective - Vital Signs / Intake & Output Vital Signs (Last 4 hours): Vital Signs Temp Pulse Resp BP Pulse Ox 08/20/18 15:18 125/72 08/20/18 15:00 108 H 34 H 99 08/20/18 14:48 109 H 33 H 125/72 99 08/20/18 14:00 112 H 35 H 100 08/20/18 13:48 107 H 08/20/18 13:32 102 H 32 H 115/74 08/20/18 13:03 107 H 08/20/18 12:32 109 H 37 H 121/65 98 08/20/18 12:00 98.4 F 103 H 30 H 93 L Intake and Output (Last 8hrs): Intake & Output 08/20/18 08/20/18 08/20/18 06:59 14:59 22:59 Intake Total 280 339 113 Output Total 775 1050 200 Balance -495 -711 -87 Weight 159 lb 9.835 oz Intake: Intake, IV Amount 0 189 13 RIJ trialysis 0 189 13 Right Hand 0 0 Oral 280 150 100 Output: Urine 775 1050 200 Urine, Voided 775 1050 200 Emesis 0 0 0 Other: # Voids Urine, Voided 1 # Bowel Movements 0 0 1 - Medications Active Medications: Active Medications Generic Name Dose Route Start Last Admin Trade Name Freq PRN Reason Stop Dose Admin Acetaminophen 650 mg 08/19/18 13:57 08/20/18 04:43 Tylenol 325mg Tab PO 650 mg Q6 PRN Administration Fever >100.4 F or pain Albuterol/Ipratropium 3 ml 08/18/18 07:29 08/20/18 10:00 Duoneb 3 Mg/0.5 Mg (3 Ml) Ud INH 3 ml RQ4 PRN Administration Shortness of Breath Aspirin 81 mg 08/08/18 10:00 08/20/18 09:54 Aspirin Chewable PO Not Given DAILY KACY Benzocaine/Menthol 1 naheed 08/13/18 15:28 08/19/18 19:31 Cepacol Sore Throat MT 1 naheed Q4 PRN Administration Sore Throat Famotidine 20 mg 08/08/18 10:00 08/20/18 09:33 Pepcid PO 20 mg DAILY KACY Administration Furosemide 40 mg 08/20/18 13:23 08/20/18 15:18 Lasix IVP 40 mg Q12 KACY Administration Guaifenesin 100 mg 08/10/18 11:22 08/18/18 07:13 Robitussin PO 100 mg Q4H PRN Administration Cough Fluconazole 100 mg/ 50 mls @ 100 mls/hr 08/15/18 10:00 08/20/18 09:32 Miscellaneous IVPB 100 mls/hr DAILY KACY Administration Protocol Heparin Sodium/Sodium Chloride 25,000 units in 250 mls @ 13.032 mls/hr 08/20/18 10:52 08/20/18 11:46 Heparin 83181 Units/250ml 1/2 Normal Saline IV 18 units/kg/hr .[id number] PRN 13.032 mls/hr PROTOCOL Administration Protocol 18 UNITS/KG/HR Lidocaine HCl 5 ml 08/07/18 13:19 08/14/18 20:34 Lidocaine 2% Viscous PO 5 ml Q3H PRN Administration Other Metoprolol Succinate 50 mg 08/08/18 15:00 08/20/18 09:33 Toprol Xl PO 50 mg DAILY KACY Administration Nitroglycerin 1 ea 08/10/18 12:30 08/20/18 13:08 Nitro-Bid 2% Oint TOP 1 ea Q6H KACY Administration Rosuvastatin Calcium 10 mg 08/10/18 22:00 08/19/18 21:15 Crestor PO 10 mg HS KACY Administration Saccharomyces Boulardii 250 mg 08/05/18 10:00 08/20/18 09:33 Florastor PO 250 mg BID KACY Administration Sodium Chloride 0 ml 08/11/18 10:00 08/20/18 14:08 [place]iver Baby Saline 30 Ml MICHAEL 2 spr TID KACY Administration Trolamine Salicylate 1 gm 08/16/18 16:55 08/20/18 09:31 Aspercreme TOP 1 gm Q6H PRN Administration stiff neck - Patient Studies Lab Studies: Microbiology Studies 08/18/18 09:24 MRSA Culture (Admit) - Final Naris MRSA NOT DETECTED Lab Studies 08/20/18 08/20/18 08/20/18 Range/Units 13:31 12:13 06:50 WBC (4.8-10.8) K/uL RBC (3.80-5.20) Mil/uL Hgb (11.0-16.0) g/dL Hct (34.0-47.0) % MCV (81.0-99.0) fL MCH (27.0-31.0) pg MCHC (33.0-37.0) g/dL RDW (11.5-14.5) % Plt Count (130-400) K/uL MPV (7.2-11.7) fL Neut % (Auto) (50.0-75.0) % Lymph % (Auto) (20.0-40.0) % [place] % (Auto) (0.0-10.0) % Eos % (Auto) (0.0-4.0) % Baso % (Auto) (0.0-2.0) % Neut # (Auto) (1.8-7.0) K/uL Lymph # (Auto) (1.0-4.3) K/uL [place] # (Auto) (0.0-0.8) K/uL Eos # (Auto) (0.0-0.7) K/uL Baso # (Auto) (0.0-0.2) K/uL PT (9.7-12.2) SECONDS INR Sodium 140 (132-148) mmol/L Potassium 3.8 (3.6-5.2) mmol/L Chloride 105 (98-107) mmol/L Carbon Dioxide 22 (22-30) mmol/L Anion Gap 18 (10-20) BUN 71 H (7-17) mg/dL Creatinine 2.9 H (0.7-1.2) mg/dL Est GFR ( Amer) 21 Est GFR (Non-Af Amer) 17 Random Glucose 93 (65-105) mg/dL Calcium 8.4 L (8.6-10.4) mg/dl Phosphorus 4.9 H (2.5-4.5) mg/dL Magnesium 1.6 (1.6-2.3) mg/dL Total Bilirubin 0.5 (0.2-1.3) mg/dL AST 66 H D (14-36) U/L ALT 40 (9-52) U/L Alkaline Phosphatase 135 H D (38-126) U/L NT-Pro-B Natriuret Pep 59302 H (0-450) pg/mL Total Protein 6.5 (6.3-8.3) g/dL Albumin 3.0 L (3.5-5.0) g/dL Globulin 3.5 (2.2-3.9) gm/dL Albumin/Globulin Ratio 0.9 L (1.0-2.1) Urine Color Yellow (YELLOW) Urine Clarity Clear (Clear) Urine pH 6.0 (5.0-8.0) Ur Specific Hope 1.008 (1.003-1.030) Urine Protein Negative (NEGATIVE) mg/dL Urine Glucose (UA) Normal (Normal) mg/dL Urine Ketones Negative (NEGATIVE) mg/dL Urine Blood 1+ H (NEGATIVE) Urine Nitrate Negative (NEGATIVE) Urine Bilirubin Negative (NEGATIVE) Urine Urobilinogen Normal (0.2-1.0) mg/dL Ur Leukocyte Esterase Neg (Negative) Jessica/uL Urine WBC (Auto) 3 (0-5) /hpf Urine RBC (Auto) 15 H (0-3) /hpf Ur Squamous Epith Cells 5 (0-5) /hpf Urine Bacteria Occ H (<OCC) 08/20/18 08/20/18 Range/Units 06:50 06:50 WBC 8.4 (4.8-10.8) K/uL RBC 2.81 L (3.80-5.20) Mil/uL Hgb 7.8 L (11.0-16.0) g/dL Hct 22.9 L (34.0-47.0) % MCV 81.4 (81.0-99.0) fL MCH 27.8 (27.0-31.0) pg MCHC 34.1 (33.0-37.0) g/dL RDW 18.2 H (11.5-14.5) % Plt Count 278 (130-400) K/uL MPV 10.4 (7.2-11.7) fL Neut % (Auto) 83.1 H (50.0-75.0) % Lymph % (Auto) 10.8 L (20.0-40.0) % [place] % (Auto) 5.5 (0.0-10.0) % Eos % (Auto) 0.5 (0.0-4.0) % Baso % (Auto) 0.1 (0.0-2.0) % Neut # (Auto) 7.0 (1.8-7.0) K/uL Lymph # (Auto) 0.9 L (1.0-4.3) K/uL [place] # (Auto) 0.5 (0.0-0.8) K/uL Eos # (Auto) 0.0 (0.0-0.7) K/uL Baso # (Auto) 0.0 (0.0-0.2) K/uL PT 27.7 H D (9.7-12.2) SECONDS INR 2.5 D Sodium (132-148) mmol/L Potassium (3.6-5.2) mmol/L Chloride (98-107) mmol/L Carbon Dioxide (22-30) mmol/L Anion Gap (10-20) BUN (7-17) mg/dL Creatinine (0.7-1.2) mg/dL Est GFR ( Amer) Est GFR (Non-Af Amer) Random Glucose (65-105) mg/dL Calcium (8.6-10.4) mg/dl Phosphorus (2.5-4.5) mg/dL Magnesium (1.6-2.3) mg/dL Total Bilirubin (0.2-1.3) mg/dL AST (14-36) U/L ALT (9-52) U/L Alkaline Phosphatase (38-126) U/L NT-Pro-B Natriuret Pep (0-450) pg/mL Total Protein (6.3-8.3) g/dL Albumin (3.5-5.0) g/dL Globulin (2.2-3.9) gm/dL Albumin/Globulin Ratio (1.0-2.1) Urine Color (YELLOW) Urine Clarity (Clear) Urine pH (5.0-8.0) Ur Specific [place] (1.003-1.030) Urine Protein (NEGATIVE) mg/dL Urine Glucose (UA) (Normal) mg/dL Urine Ketones (NEGATIVE) mg/dL Urine Blood (NEGATIVE) Urine Nitrate (NEGATIVE) Urine Bilirubin (NEGATIVE) Urine Urobilinogen (0.2-1.0) mg/dL Ur Leukocyte Esterase (Negative) Jessica/uL Urine WBC (Auto) (0-5) /hpf Urine RBC (Auto) (0-3) /hpf Ur Squamous Epith Cells (0-5) /hpf Urine Bacteria (<OCC) Laboratory Results - last 24 hr 08/20/18 08/20/18 08/20/18 06:50 06:50 06:50 WBC 8.4 RBC 2.81 L Hgb 7.8 L Hct 22.9 L MCV 81.4 MCH 27.8 MCHC 34.1 RDW 18.2 H Plt Count 278 MPV 10.4 Neut % (Auto) 83.1 H Lymph % (Auto) 10.8 L [place] % (Auto) 5.5 Eos % (Auto) 0.5 Baso % (Auto) 0.1 Neut # (Auto) 7.0 Lymph # (Auto) 0.9 L [place] # (Auto) 0.5 Eos # (Auto) 0.0 Baso # (Auto) 0.0 PT 27.7 H D INR 2.5 D Sodium 140 Potassium 3.8 Chloride 105 Carbon Dioxide 22 Anion Gap 18 BUN 71 H Creatinine 2.9 H Est GFR ( Amer) 21 Est GFR (Non-Af Amer) 17 Random Glucose 93 Calcium 8.4 L Phosphorus 4.9 H Magnesium 1.6 Total Bilirubin 0.5 AST 66 H D ALT 40 Alkaline Phosphatase 135 H D NT-Pro-B Natriuret Pep Total Protein 6.5 Albumin 3.0 L Globulin 3.5 Albumin/Globulin Ratio 0.9 L Urine Color Urine Clarity Urine pH Ur Specific [place] Urine Protein Urine Glucose (UA) Urine Ketones Urine Blood Urine Nitrate Urine Bilirubin Urine Urobilinogen Ur Leukocyte Esterase Urine WBC (Auto) Urine RBC (Auto) Ur Squamous Epith Cells Urine Bacteria 08/20/18 08/20/18 12:13 13:31 WBC RBC Hgb Hct MCV MCH MCHC RDW Plt Count MPV Neut % (Auto) Lymph % (Auto) [place] % (Auto) Eos % (Auto) Baso % (Auto) Neut # (Auto) Lymph # (Auto) [place] # (Auto) Eos # (Auto) Baso # (Auto) PT INR Sodium Potassium Chloride Carbon Dioxide Anion Gap BUN Creatinine Est GFR ( Amer) Est GFR (Non-Af Amer) Random Glucose Calcium Phosphorus Magnesium Total Bilirubin AST ALT Alkaline Phosphatase NT-Pro-B Natriuret Pep 40003 H Total Protein Albumin Globulin Albumin/Globulin Ratio Urine Color Yellow Urine Clarity Clear Urine pH 6.0 Ur Specific [place] 1.008 Urine Protein Negative Urine Glucose (UA) Normal Urine Ketones Negative Urine Blood 1+ H Urine Nitrate Negative Urine Bilirubin Negative Urine Urobilinogen Normal Ur Leukocyte Esterase Neg Urine WBC (Auto) 3 Urine RBC (Auto) 15 H Ur Squamous Epith Cells 5 Urine Bacteria Occ H Critical Care Progress Note - Nutrition Nutrition: Nutrition Category Date Time Status Heart Healthy Diet [DIET] Diets 08/17/18 Dinner Active Assessment/Plan (1) Acute respiratory failure with hypoxemia Current Visit: Yes Status: Acute Attending/Attestation - Attestation I have personally seen and examined this patient.: Yes I have fully participated in the care of the patient.: Yes I have reviewed all pertinent clinical information: Yes Notes (Text): 08/20/18 15:40 I have seen and examined the patient. Medical records, lab studies, and imaging were reviewed by me and a management plan was formulated on multidisciplinary rounds with resident Dr. Whittaker. I agree with their documented assessment and plan. Patient fluid balance is negative via dialysis, but CXR sitll looks bad, with interstitial pattern. CT chest appears to be multifocal pneumonia, but patient has no wbc and no fevers, only non-productive cough. Uncertain etiology, will discuss with ID and pulmonary consult. Patient is thrombogenic, acute kidney injury, interstitial lung pattern with multifocal infiltrates. Consider Dre's. Critical Care Time 35 minutes. Multi-disciplinary rounds were performed with house staff, nursing, speech therapy, respiratory therapy, pharmacy and nutrition with integrated input from the primary team/attending and other consulting services. The documented time is cumulative and includes review of patient data/exams/labs/chart review and examination of the patient on rounds and throughout the day; time is exclusive of any procedures or teaching time.
--- NOTE | 2018-08-20 09:17 | CP.PCM.PN ---
<Luis Sawyer - Last Filed: 08/20/18 20:01> Subjective - Date & Time of Evaluation Date of Evaluation: 08/20/18 Time of Evaluation: 09:13 - Subjective Subjective: Nephrology progress note - Gelacio Idaalli PGY3 Patient seen and examined at bedside this morning. Clinically appears to be improving. Net negative urine output 800cc since 7am this morning. Denies chest pain, palpitations. Objective - Vital Signs/Intake and Output Vital Signs (last 24 hours): Temp Pulse Resp BP Pulse Ox 98.2 F 98 H 27 H 94/54 L 100 08/20/18 08:00 08/20/18 08:00 08/20/18 08:00 08/20/18 08:09 08/20/18 08:00 Intake and Output: 08/20/18 08/20/18 06:59 18:59 Intake Total 460 100 Output Total 925 200 Balance -465 -100 - Medications Medications: Current Medications Acetaminophen (Tylenol 325mg Tab) 650 mg PO Q6 PRN PRN Reason: Fever >100.4 F or pain Last Admin: 08/20/18 04:43 Dose: 650 mg Albuterol/Ipratropium (Duoneb 3 Mg/0.5 Mg (3 Ml) Ud) 3 ml INH RQ4 PRN PRN Reason: Shortness of Breath Last Admin: 08/19/18 19:34 Dose: 3 ml Aspirin (Aspirin Chewable) 81 mg PO DAILY [facility] Last Admin: 08/19/18 10:24 Dose: 81 mg Benzocaine/Menthol (Cepacol Sore Throat) 1 naheed MT Q4 PRN PRN Reason: Sore Throat Last Admin: 08/19/18 19:31 Dose: 1 naheed Famotidine (Pepcid) 20 mg PO DAILY [facility] Last Admin: 08/19/18 10:24 Dose: 20 mg Furosemide (Lasix) 60 mg IVP Q12H [facility] Last Admin: 08/20/18 08:09 Dose: 60 mg Guaifenesin (Robitussin) 100 mg PO Q4H PRN PRN Reason: Cough Last Admin: 08/18/18 07:13 Dose: 100 mg Fluconazole 100 mg/ (Miscellaneous) 50 mls @ 100 mls/hr IVPB DAILY [facility]; Protocol Last Admin: 08/19/18 10:29 Dose: 100 mls/hr Lidocaine HCl (Lidocaine 2% Viscous) 5 ml PO Q3H PRN PRN Reason: Other Last Admin: 08/14/18 20:34 Dose: 5 ml Metoprolol Succinate (Toprol Xl) 50 mg PO DAILY [facility] Last Admin: 08/19/18 12:34 Dose: 50 mg Nitroglycerin (Nitro-Bid 2% Oint) 1 ea TOP Q6H [facility] Last Admin: 08/20/18 05:43 Dose: 1 ea Rosuvastatin Calcium (Crestor) 10 mg PO HS [facility] Last Admin: 08/19/18 21:15 Dose: 10 mg Saccharomyces Boulardii (Florastor) 250 mg PO BID [facility] Last Admin: 08/19/18 17:49 Dose: 250 mg Sodium Chloride ([place] Baby Saline 30 Ml) 0 ml MICHAEL TID [facility] Last Admin: 08/19/18 17:49 Dose: 2 spr Trolamine Salicylate (Aspercreme) 1 gm TOP Q6H PRN PRN Reason: stiff neck Last Admin: 08/19/18 17:53 Dose: 1 gm - Labs Labs: 08/20/18 06:50 08/20/18 06:50 PT 27.7 SECONDS (9.7-12.2) H D 08/20/18 06:50 INR 2.5 D 08/20/18 06:50 APTT 32 SECONDS (21-34) 08/13/18 06:22 - Constitutional Appears: No Acute Distress - Head Exam Head Exam: ATRAUMATIC, NORMAL INSPECTION, NORMOCEPHALIC - Eye Exam Eye Exam: EOMI, PERRL - ENT Exam ENT Exam: Mucous Membranes Moist - Neck Exam Neck Exam: absent: Lymphadenopathy, Tenderness, Thyromegaly - Respiratory Exam Respiratory Exam: Decreased Breath Sounds. absent: Rales, Rhonchi, Wheezes - Cardiovascular Exam Cardiovascular Exam: +S1, +S2. absent: Gallop, JVD, Rubs - GI/Abdominal Exam GI & Abdominal Exam: Soft. absent: Distended, Firm, Guarding, Rigid, Tenderness, Rebound - Neurological Exam Neurological Exam: Alert, Awake, CN II-XII Intact, Oriented x3 - Psychiatric Exam Psychiatric exam: Normal Affect, Normal Mood - Skin Skin Exam: Dry, Intact, Warm Additional comments: ecchymosis Assessment and Plan - Assessment and Plan (Free Text) Plan: 48yo female with history of anxiety, on OCP who presented following a syncopal episode and noted to be in afib with RVR with subsequent respiratory failure secondary to bilateral PE complicated by PNA. 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 Clinical course complicated by renal failure secondary to presumed ATN and NSTEMI s/p cath showing spontaneous right coronary artery dissection. - Concern remains that BRIAN may not simply be due to ATN as pattern of recovery is atypical for ATN (should have steady and faster decreases in serum creatinine than what patient has shown); bilateral infiltrates are concerning for possibility of pulmonary-renal syndrome; will pursue renal biopsy next week if renal function does not improve significantly; discussed with cardiology yesterday and will hold ASA/plavix for biopsy next week (stopping plavix from tomorrow, will stop ASA over weekend) - Reduced lasix to 40 IVP q12h due to low BP's however goal is achieving at least 1L net negative daily fluid balance - Strict I's and O's with fluid restriction - Previously underwent emergent UF session secondary to pulmonary edema with 3 liters of UF goal achieved - CXR shows significant pulm vascular congestion - GBM AB pending - Cardiac cath - EF 45-50%; 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 <Pato Henson - Last Filed: 08/21/18 08:28> Objective - Vital Signs/Intake and Output Vital Signs (last 24 hours): Temp Pulse Resp BP Pulse Ox 99.9 F H 108 H 26 H 122/77 100 08/21/18 04:00 08/21/18 07:02 08/21/18 07:02 08/21/18 07:02 08/21/18 07:02 Intake and Output: 08/21/18 08/21/18 06:59 18:59 Intake Total 346 263 Output Total 800 Balance -454 263 - Medications Medications: Current Medications Acetaminophen (Tylenol 325mg Tab) 650 mg PO Q6 PRN PRN Reason: Fever >100.4 F or pain Last Admin: 08/20/18 22:00 Dose: 650 mg Albuterol/Ipratropium (Duoneb 3 Mg/0.5 Mg (3 Ml) Ud) 3 ml INH RQ4 PRN PRN Reason: Shortness of Breath Last Admin: 08/20/18 10:00 Dose: 3 ml Aspirin (Aspirin Chewable) 81 mg PO DAILY [facility] Last Admin: 08/20/18 09:54 Dose: Not Given Benzocaine/Menthol (Cepacol Sore Throat) 1 naheed MT Q4 PRN PRN Reason: Sore Throat Last Admin: 08/19/18 19:31 Dose: 1 naheed Famotidine (Pepcid) 20 mg PO DAILY [facility] Last Admin: 08/20/18 09:33 Dose: 20 mg Fluconazole (Diflucan) 100 mg PO DAILY [facility] Furosemide (Lasix) 40 mg IVP Q12 [facility] Last Admin: 08/20/18 22:00 Dose: 40 mg Guaifenesin (Robitussin) 100 mg PO Q4H PRN PRN Reason: Cough Last Admin: 08/18/18 07:13 Dose: 100 mg Heparin Sodium/Sodium Chloride (Heparin 47645 Units/250ml 1/2 Normal Saline) 25,000 units in 250 mls @ 13.032 mls/hr IV .[id number] PRN; Protocol PRN Reason: PROTOCOL Last Admin: 08/21/18 07:25 Dose: 18 units/kg/hr, 13.032 mls/hr Lidocaine HCl (Lidocaine 2% Viscous) 5 ml PO Q3H PRN PRN Reason: Other Last Admin: 08/14/18 20:34 Dose: 5 ml Metolazone (Zaroxolyn) 2.5 mg PO DAILY [facility] Metoprolol Succinate (Toprol Xl) 50 mg PO DAILY [facility] Last Admin: 08/20/18 09:33 Dose: 50 mg Nitroglycerin (Nitro-Bid 2% Oint) 1 ea TOP Q6H [facility] Last Admin: 08/21/18 07:30 Dose: 1 ea Potassium Chloride (Potassium Chloride Oral Soln) 20 meq PO Q2 [facility] Stop: 08/21/18 12:01 Rosuvastatin Calcium (Crestor) 10 mg PO HS [facility] Last Admin: 08/20/18 22:00 Dose: 10 mg Saccharomyces Boulardii (Florastor) 250 mg PO BID [facility] Last Admin: 08/20/18 17:36 Dose: 250 mg Sodium Chloride ([place] Baby Saline 30 Ml) 0 ml MICHAEL TID [facility] Last Admin: 08/20/18 17:36 Dose: 2 spr Trolamine Salicylate (Aspercreme) 1 gm TOP Q6H PRN PRN Reason: stiff neck Last Admin: 08/20/18 09:31 Dose: 1 gm - Labs Labs: 08/21/18 06:19 08/21/18 06:19 PT 22.0 SECONDS (9.7-12.2) H D 08/21/18 07:41 INR 2.0 D 08/21/18 07:41 APTT 89 SECONDS (21-34) H D 08/20/18 23:45 Assessment and Plan (1) Acute renal failure Status: Acute (2) Tachycardia Status: Acute (3) Acute respiratory failure with hypoxemia Status: Acute (4) Hypocalcemia Status: Resolved (5) Metabolic acidosis Status: Acute (6) NSTEMI (non-ST elevated myocardial infarction) Status: Acute Attending/Attestation - Attestation I have personally seen and examined this patient.: Yes I have fully participated in the care of the patient.: Yes I have reviewed all pertinent clinical information, including history, physical exam and plan: Yes Notes (Text): Patient seen and examined; I agree with the resident's note as above with the following additions/edits: Patient with no significant pmh admitted with bilateral PE, hypoxemic resp failure, superimposed bilateral PNA, septic shock (resolved) and acute renal failure; ATN in the setting of septic shock; renal function continues to improve slowly, atypical for ATN; UF session 3 days ago after developing pulmonary edema and hypoxia; otherwise, has been achieving acceptable negative fluid balance on IV lasix 60 mg q12h (~net neg 2L); concern for intravascular volume depletion as BP borderline low and increased BUN, will decrease lasix to 40 mg q12h; Discussed with primary and CCM teams; if renal function doesn't improve signficantly, will pursue renal biopsy next week; concern for possible pulm/renal syndrome given chest imaging findings although serologic workup negative (ANCA Ab can be neg in 10% of pauci-immune GN); plavix held beginning today; holding ASA over weekend, bridging coumadin with heparin drip; -continue to avoid nephrotoxic agents; -keep MAP > 65; -diuretics as above, no need for more aggressive regimen as resp status is stable;
[2018-08-20] MEDS: Trolamine Salicylate 10% Cream (85 gm) TOP PRN (09:31)
[2018-08-20] MEDS: Fluconazole IV 200mg/100 ml NS 100 MG in Premixed IV 1 EA IVPB SCH (09:32)
[2018-08-20] MEDS: Sodium Chloride Nasal 0.65% Soln (30ml) NAS SCH ×3 (09:32→17:36)
[2018-08-20] MEDS: Saccharomyces Boulardi 250 mg Cap PO SCH ×2 (09:33→17:36)
[2018-08-20] MEDS: Metoprolol Succinate 50 mg XL Tab PO SCH (09:33)
[2018-08-20] MEDS: Albuterol-Ipratrop 3 mg / 0.5 (3 ml) UD INH PRN (10:00)
[2018-08-20] MEDS ORDERED: Sodium Chloride 0.45% 1,000 ML IV SCH (11:00)
--- NOTE | 2018-08-20 11:24 | CP.PCM.PN ---
Subjective - Date & Time of Evaluation Date of Evaluation: 08/20/18 Time of Evaluation: 11:22 - Subjective Subjective: breathing stable good UO 800cc awaiting renal biopsy Objective - Vital Signs/Intake and Output Vital Signs (last 24 hours): Temp Pulse Resp BP Pulse Ox 98.2 F 97 H 22 96/57 L 99 08/20/18 08:00 08/20/18 10:31 08/20/18 09:00 08/20/18 10:32 08/20/18 10:31 Intake and Output: 08/20/18 08/20/18 06:59 18:59 Intake Total 460 250 Output Total 925 800 Balance -465 -550 - Medications Medications: Current Medications Acetaminophen (Tylenol 325mg Tab) 650 mg PO Q6 PRN PRN Reason: Fever >100.4 F or pain Last Admin: 08/20/18 04:43 Dose: 650 mg Albuterol/Ipratropium (Duoneb 3 Mg/0.5 Mg (3 Ml) Ud) 3 ml INH RQ4 PRN PRN Reason: Shortness of Breath Last Admin: 08/19/18 19:34 Dose: 3 ml Aspirin (Aspirin Chewable) 81 mg PO DAILY [facility] Last Admin: 08/20/18 09:54 Dose: Not Given Benzocaine/Menthol (Cepacol Sore Throat) 1 naheed MT Q4 PRN PRN Reason: Sore Throat Last Admin: 08/19/18 19:31 Dose: 1 naheed Famotidine (Pepcid) 20 mg PO DAILY [facility] Last Admin: 08/20/18 09:33 Dose: 20 mg Furosemide (Lasix) 60 mg IVP Q12H [facility] Last Admin: 08/20/18 08:09 Dose: 60 mg Guaifenesin (Robitussin) 100 mg PO Q4H PRN PRN Reason: Cough Last Admin: 08/18/18 07:13 Dose: 100 mg Fluconazole 100 mg/ (Miscellaneous) 50 mls @ 100 mls/hr IVPB DAILY [facility]; Protocol Last Admin: 08/20/18 09:32 Dose: 100 mls/hr Heparin Sodium/Sodium Chloride (Heparin 62525 Units/250ml 1/2 Normal Saline) 25,000 units in 250 mls @ 13.032 mls/hr IV .[id number] PRN; Protocol PRN Reason: PROTOCOL Lidocaine HCl (Lidocaine 2% Viscous) 5 ml PO Q3H PRN PRN Reason: Other Last Admin: 08/14/18 20:34 Dose: 5 ml Metoprolol Succinate (Toprol Xl) 50 mg PO DAILY [facility] Last Admin: 08/20/18 09:33 Dose: 50 mg Nitroglycerin (Nitro-Bid 2% Oint) 1 ea TOP Q6H [facility] Last Admin: 08/20/18 05:43 Dose: 1 ea Rosuvastatin Calcium (Crestor) 10 mg PO HS [facility] Last Admin: 08/19/18 21:15 Dose: 10 mg Saccharomyces Boulardii (Florastor) 250 mg PO BID [facility] Last Admin: 08/20/18 09:33 Dose: 250 mg Sodium Chloride ([place] Baby Saline 30 Ml) 0 ml MICHAEL TID [facility] Last Admin: 08/20/18 09:32 Dose: 2 spr Trolamine Salicylate (Aspercreme) 1 gm TOP Q6H PRN PRN Reason: stiff neck Last Admin: 08/20/18 09:31 Dose: 1 gm - Labs Labs: 08/20/18 06:50 08/20/18 06:50 PT 27.7 SECONDS (9.7-12.2) H D 08/20/18 06:50 INR 2.5 D 08/20/18 06:50 APTT 32 SECONDS (21-34) 08/13/18 06:22 - Constitutional Appears: Well - Head Exam Head Exam: ATRAUMATIC, NORMAL INSPECTION, NORMOCEPHALIC - Eye Exam Eye Exam: EOMI, Normal appearance, PERRL Pupil Exam: NORMAL ACCOMODATION, PERRL - ENT Exam ENT Exam: Mucous Membranes Moist, Normal Exam - Neck Exam Neck Exam: Full ROM, Normal Inspection. absent: Lymphadenopathy - Respiratory Exam Respiratory Exam: Clear to Ausculation Bilateral, Rales, NORMAL BREATHING PATTERN - Cardiovascular Exam Cardiovascular Exam: REGULAR RHYTHM, +S1, +S2, Murmur - GI/Abdominal Exam GI & Abdominal Exam: Soft, Normal Bowel Sounds. absent: Tenderness - Extremities Exam Extremities Exam: Full ROM, Normal Capillary Refill, Normal Inspection. absent: Joint Swelling, Pedal Edema - Back Exam Back Exam: NORMAL INSPECTION - Neurological Exam Neurological Exam: Alert, Awake, CN II-XII Intact, Normal Gait, Oriented x3 - Psychiatric Exam Psychiatric exam: Normal Affect, Normal Mood - Skin Skin Exam: Dry, Intact, Normal Color, Warm Assessment and Plan (1) Pulmonary congestion Assessment & Plan: etiology 2' to elevated filling pressures repeat BNP cont IV lasix Status: Acute (2) Coronary artery dissection Assessment & Plan: cont BB plavix on hold 2' to plan for renal biopsy Status: Acute (3) Renal failure Assessment & Plan: on intermittent HD good UO renal biospy pending Status: Acute (4) Acute respiratory failure with hypoxemia Status: Acute (5) NSTEMI (non-ST elevated myocardial infarction) Status: Acute (6) Pulmonary embolism Status: Acute
[2018-08-20] MEDS: Heparin25000 units/250ml 1/2NS 25,000 UNITS/250 ML BAG IV PRN (11:46)
--- NOTE | 2018-08-20 12:43 | CP.PCM.PN ---
Subjective - Date & Time of Evaluation Date of Evaluation: 08/20/18 Time of Evaluation: 10:00 - Subjective Subjective: Seen examined by me this morning . 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 Objective - Vital Signs/Intake and Output Vital Signs (last 24 hours): Temp Pulse Resp BP Pulse Ox 98.4 F 103 H 30 H 111/68 93 L 08/20/18 12:00 08/20/18 12:00 08/20/18 12:00 08/20/18 11:32 08/20/18 12:00 Intake and Output: 08/20/18 08/20/18 06:59 18:59 Intake Total 460 263 Output Total 925 800 Balance -465 -537 - Medications Medications: Current Medications Acetaminophen (Tylenol 325mg Tab) 650 mg PO Q6 PRN PRN Reason: Fever >100.4 F or pain Last Admin: 08/20/18 04:43 Dose: 650 mg Albuterol/Ipratropium (Duoneb 3 Mg/0.5 Mg (3 Ml) Ud) 3 ml INH RQ4 PRN PRN Reason: Shortness of Breath Last Admin: 08/19/18 19:34 Dose: 3 ml Aspirin (Aspirin Chewable) 81 mg PO DAILY [facility] Last Admin: 08/20/18 09:54 Dose: Not Given Benzocaine/Menthol (Cepacol Sore Throat) 1 naheed MT Q4 PRN PRN Reason: Sore Throat Last Admin: 08/19/18 19:31 Dose: 1 naheed Famotidine (Pepcid) 20 mg PO DAILY [facility] Last Admin: 08/20/18 09:33 Dose: 20 mg Furosemide (Lasix) 60 mg IVP Q12H [facility] Last Admin: 08/20/18 08:09 Dose: 60 mg Guaifenesin (Robitussin) 100 mg PO Q4H PRN PRN Reason: Cough Last Admin: 08/18/18 07:13 Dose: 100 mg Fluconazole 100 mg/ (Miscellaneous) 50 mls @ 100 mls/hr IVPB DAILY [facility]; Protocol Last Admin: 08/20/18 09:32 Dose: 100 mls/hr Heparin Sodium/Sodium Chloride (Heparin 40110 Units/250ml 1/2 Normal Saline) 25,000 units in 250 mls @ 13.032 mls/hr IV .[id number] PRN; Protocol PRN Reason: PROTOCOL Last Admin: 08/20/18 11:46 Dose: 18 units/kg/hr, 13.032 mls/hr Lidocaine HCl (Lidocaine 2% Viscous) 5 ml PO Q3H PRN PRN Reason: Other Last Admin: 08/14/18 20:34 Dose: 5 ml Metoprolol Succinate (Toprol Xl) 50 mg PO DAILY [facility] Last Admin: 08/20/18 09:33 Dose: 50 mg Nitroglycerin (Nitro-Bid 2% Oint) 1 ea TOP Q6H [facility] Last Admin: 08/20/18 05:43 Dose: 1 ea Rosuvastatin Calcium (Crestor) 10 mg PO HS [facility] Last Admin: 08/19/18 21:15 Dose: 10 mg Saccharomyces Boulardii (Florastor) 250 mg PO BID [facility] Last Admin: 08/20/18 09:33 Dose: 250 mg Sodium Chloride ([place] Baby Saline 30 Ml) 0 ml MICHAEL TID [facility] Last Admin: 08/20/18 09:32 Dose: 2 spr Trolamine Salicylate (Aspercreme) 1 gm TOP Q6H PRN PRN Reason: stiff neck Last Admin: 08/20/18 09:31 Dose: 1 gm - Labs Labs: 08/20/18 06:50 08/20/18 06:50 PT 27.7 SECONDS (9.7-12.2) H D 08/20/18 06:50 INR 2.5 D 08/20/18 06:50 APTT 32 SECONDS (21-34) 08/13/18 06:22 - Constitutional Appears: Non-toxic, No Acute Distress, Chronically Ill - Head Exam Head Exam: absent: NORMAL INSPECTION (old ecchymosis) - Eye Exam Eye Exam: Normal appearance, PERRL - ENT Exam ENT Exam: Mucous Membranes Moist - Neck Exam Neck Exam: Full ROM - Respiratory Exam Respiratory Exam: Rales (better than yesterday), NORMAL BREATHING PATTERN - Cardiovascular Exam Cardiovascular Exam: REGULAR RHYTHM - GI/Abdominal Exam GI & Abdominal Exam: Soft, Normal Bowel Sounds - Extremities Exam Extremities Exam: Full ROM - Back Exam Back Exam: NORMAL INSPECTION - Neurological Exam Neurological Exam: Awake, Oriented x3 - Psychiatric Exam Psychiatric exam: Normal Affect - Skin Skin Exam: Dry, Intact, Normal Color, Warm Assessment and Plan - Assessment and Plan (Free Text) Plan: 1.Acute renal failure/pulmonary edema Nephro consult Dr. Henson Her creatinine is not improving well d/w Dr Henson. Planning for kidney biopsy on Friday. Plavix and aspirin on hold Hold Coumadin . Her INR is 2.5. 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 Bilateral PE and DVT CTA chest: extensive b/l lower lobe proximal pulmonary emboli distal on margins of R and L pulmonary arteries, lower lobe of branches and proximal segmental branches b/l. smaller emboli within segmental/subsegmental branches of upper and middle lobes LE duplex: acute thrombosis of L common femoral vein ECHO: EF 50-55%, mild to moderate TR and pulmonary HTN hold Coumadin for kidney biopsy ,follow INR,Start on heparin drip 4.Pneumonia Chest x ray likely more congestion,no fever Treated with cefepime ID consulted, Dr. Slater - f/u recs 5.Fungal infection/uti on diflucan 6.Intially Atrial Fibrillation with RVR now NSR,on metoprolol has sinus tachy 7.Anxiety - Xanax 0.25mg tonight GI/DVT ppx: pepsid for GI Oh heparin for DVT
[2018-08-20 13:43] LABS: SQUAMOUS EPITHIAL 5 /hpf (0-5); URINE BACTERIA OCC (<OCC); URINE BILIRUBIN NEGATIVE (NEGATIVE); URINE BLOOD 1+ (NEGATIVE); URINE CLARITY Clear (Clear); URINE COLOR Yellow (YELLOW); URINE GLUCOSE (UA) NORMAL (Normal); URINE LEUKOCYTE ESTERASE NEG Leu/uL (Negative); URINE PROTEIN NEGATIVE (NEGATIVE); URINE UROBILINOGEN NORMAL mg/dL (0.2-1.0)
--- NOTE | 2018-08-20 14:01 | CT ---
Date of service: 08/20/2018 PROCEDURE: CT Chest without contrast HISTORY: pulmonary edema COMPARISON: 08/03/2018 TECHNIQUE: Contiguous axial images were obtained through the chest without intravenous contrast enhancement. Sagittal and coronal reconstructions were performed. Radiation dose (DLP): 440.57 mGy-cm. This CT exam was performed using one or more of the following dose reduction techniques: Automated exposure control, adjustment of the mA and/or kV according to patient size, and/or use of iterative reconstruction technique. FINDINGS: LUNGS: Ill-defined focal opacities in both lung apices. Generalized ill-defined opacity about the right hilum involving both upper and lower lobe. This is seen to a lesser extent about the left hilum. Pattern suggestive of pulmonary edema. However, superimposed multi lobar pneumonia is suspected. There is poppy infiltrate seen in the lateral segment of the right middle lobe. There is linear scar atelectasis in both lower lobes. There is focal consolidation in the medial lingula, possibly atelectasis. There is evidence of Otoniel B-lines again consistent with pulmonary edema. MEDIASTINUM: Unremarkable thoracic aorta. No aneurysm. Cardiomegaly. Small pericardial effusion noted. Mildly dilated main pulmonary artery to a diameter of 3.5 cm. Right IJ central venous dialysis catheter terminating in the region of the inferior vena cava. No lymphadenopathy. PLEURA: No pleural fluid. No pneumothorax. BONES: No fracture. No destructive lesion. UPPER ABDOMEN: Postsurgical changes of stomach. Gastric band noted. This is seen in an atypical position. Its position is unchanged from prior CT examination, however. OTHER FINDINGS: None. IMPRESSION: Findings consistent with pulmonary edema with suspected superimposed multi lobar pneumonia. Follow-up advised. No pleural effusion. Cardiomegaly and small pericardial effusion. Dilated main pulmonary artery. Central venous catheter. Postoperative changes of stomach. Possible gastric band in atypical position. Correlate with history.
[2018-08-21] MEDS: Nitroglycerin 2% Ointment Foilpak UD TOP SCH ×5 (00:40→23:30)
[2018-08-21 06:29] LABS: BASO % 0.6 % (0.0-2.0); EOS % 0.6 % (0.0-4.0); HEMOGLOBIN 8.3 g/dL (11.0-16.0); LYMPH # 1.5 K/uL (1.0-4.3); LYMPH % 22.9 % (20.0-40.0); MEAN CELL VOLUME 80.6 fL (81.0-99.0); MEAN CORPUSCULAR HEMOGLOBIN 27.1 pg (27.0-31.0); MEAN CORPUSCULAR HGB CONC 33.6 g/dL (33.0-37.0); MEAN PLATELET VOLUME 9.2 fL (7.2-11.7); MONO # 0.4 K/uL (0.0-0.8); MONO % 6.6 % (0.0-10.0); NEUT # 4.4 K/uL (1.8-7.0); NEUT % 69.3 % (50.0-75.0); NRBC % 0.2 % (0.0-2.0); RBC 3.08 Mil/uL (3.80-5.20); RED CELL DISTRIBUTION WIDTH 17.7 % (11.5-14.5); WHITE BLOOD COUNT 6.4 K/uL (4.8-10.8)
[2018-08-21 06:47] LABS: ALB/GLOB RATIO 0.9 (1.0-2.1); ALBUMIN 3.1 g/dL (3.5-5.0); CALCIUM 8.3 mg/dl (8.6-10.4)
[2018-08-21] MEDS ORDERED: Potassium Chloride 20 mEq/15 ml LIQ UD PO STA (06:59)
--- NOTE | 2018-08-21 07:22 | CP.PCM.PN ---
Subjective - Date & Time of Evaluation Date of Evaluation: 08/21/18 Time of Evaluation: 06:45 - Subjective Subjective: Linwood Wheeler, PGY-[address] Ba Patient seen and evaluated at bedside. Daughter at bedside. Patient reports improvement with mild shortness of breath. Denies chest pain, palpitations, dizziness and headaches. No acute events overnight. Objective - Vital Signs/Intake and Output Vital Signs (last 24 hours): Temp Pulse Resp BP Pulse Ox 99.6 F 101 H 31 H 117/73 96 08/21/18 00:00 08/21/18 06:01 08/21/18 06:01 08/21/18 06:01 08/21/18 06:01 Intake and Output: 08/21/18 08/21/18 06:59 18:59 Intake Total 346 Output Total 800 Balance -454 - Medications Medications: Current Medications Acetaminophen (Tylenol 325mg Tab) 650 mg PO Q6 PRN PRN Reason: Fever >100.4 F or pain Last Admin: 08/20/18 22:00 Dose: 650 mg Albuterol/Ipratropium (Duoneb 3 Mg/0.5 Mg (3 Ml) Ud) 3 ml INH RQ4 PRN PRN Reason: Shortness of Breath Last Admin: 08/20/18 10:00 Dose: 3 ml Aspirin (Aspirin Chewable) 81 mg PO DAILY [facility] [place] Last Admin: 08/20/18 09:54 Dose: Not Given Benzocaine/Menthol (Cepacol Sore Throat) 1 naheed MT Q4 PRN PRN Reason: Sore Throat Last Admin: 08/19/18 19:31 Dose: 1 naheed Famotidine (Pepcid) 20 mg PO DAILY [facility] [place] Last Admin: 08/20/18 09:33 Dose: 20 mg Fluconazole (Diflucan) 100 mg PO DAILY [facility] Furosemide (Lasix) 40 mg IVP Q12 [facility] Last Admin: 08/20/18 22:00 Dose: 40 mg Guaifenesin (Robitussin) 100 mg PO Q4H PRN PRN Reason: Cough Last Admin: 08/18/18 07:13 Dose: 100 mg Heparin Sodium/Sodium Chloride (Heparin 69604 Units/250ml 1/2 Normal Saline) 25,000 units in 250 mls @ 13.032 mls/hr IV .[id number] PRN; Protocol PRN Reason: PROTOCOL Last Admin: 08/20/18 11:46 Dose: 18 units/kg/hr, 13.032 mls/hr Lidocaine HCl (Lidocaine 2% Viscous) 5 ml PO Q3H PRN PRN Reason: Other Last Admin: 08/14/18 20:34 Dose: 5 ml Metoprolol Succinate (Toprol Xl) 50 mg PO DAILY [facility] Last Admin: 08/20/18 09:33 Dose: 50 mg Nitroglycerin (Nitro-Bid 2% Oint) 1 ea TOP Q6H [facility] Last Admin: 08/21/18 00:40 Dose: 1 ea Potassium Chloride (Potassium Chloride Oral Soln) 60 meq PO STAT STA Stop: 08/21/18 07:00 Rosuvastatin Calcium (Crestor) 10 mg PO HS [facility] [place] Last Admin: 08/20/18 22:00 Dose: 10 mg Saccharomyces Boulardii (Florastor) 250 mg PO BID [facility] [place] Last Admin: 08/20/18 17:36 Dose: 250 mg Sodium Chloride ([place] Baby Saline 30 Ml) 0 ml MICHAEL TID [facility] Last Admin: 08/20/18 17:36 Dose: 2 spr Trolamine Salicylate (Aspercreme) 1 gm TOP Q6H PRN PRN Reason: stiff neck Last Admin: 08/20/18 09:31 Dose: 1 gm - Labs Labs: 08/21/18 06:19 08/21/18 06:19 PT 27.7 SECONDS (9.7-12.2) H D 08/20/18 06:50 INR 2.5 D 08/20/18 06:50 APTT 89 SECONDS (21-34) H D 08/20/18 23:45 - Constitutional Appears: Well, Non-toxic, No Acute Distress - Head Exam Head Exam: ATRAUMATIC, NORMOCEPHALIC - Eye Exam Eye Exam: EOMI, Normal appearance - Neck Exam Neck Exam: absent: Normal Inspection (ecchymosies present from resuscitation efforts, leading down to chest) - Respiratory Exam Respiratory Exam: Rales, NORMAL BREATHING PATTERN. absent: Accessory Muscle Use, Chest Wall Tenderness, Rhonchi, Wheezes, Respiratory Distress (on NC) - Cardiovascular Exam Cardiovascular Exam: RRR, +S1, +S2. absent: JVD - Back Exam Back Exam: NORMAL INSPECTION - Neurological Exam Neurological Exam: Alert, Awake, Oriented x3 - Skin Skin Exam: Dry, Intact, Normal Color, Warm Assessment and Plan - Assessment and Plan (Free Text) Assessment: Assessment: 48 F with PMHx of anxiety who experienced syncopal episode and found to have bilateral pulmonary embolism, A. fib. Plan: Bilateral Pulmonary Embolisms, CHF, coronary artery dissection -A/C held due to pending renal biopsy. F/U AM INR -holding off on eliquis due to elevated creatinine, Cr is improved to 2.3 today. 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 Small B/L pleural effusions -echo showed LVEF 50-55%, mild to moderate TR and pulmonary hypertension -initial CTA showed diffuse bilateral pulmonary emboli of B/L central and segmental pulmonary arteries, pulmonary venous congestion compatible with CHF vs left basilar atelectasis vs pulmonary infarct - Repeat BNP 48355 elevated, continue IV Lasix Paroxysmal A. fib with RVR -EKG on admission showed afib with RVR at 146bpm, uncertain if new finding - most recent EKG shows sinus tachy at 122, continue B-lennox Patient seen, case discussed with attending, further recommendations per Dr. Ba. Linwood Wheeler, PGY-1
[2018-08-21] MEDS: Heparin25000 units/250ml 1/2NS 25,000 UNITS/250 ML BAG IV PRN (07:25)
[2018-08-21] MEDS: Potassium Chloride 20 mEq/15 ml LIQ UD PO SCH ×3 (08:24→12:18)
[2018-08-21] MEDS ORDERED: Magnesium Sulfate 1 gm in D5W 1 GM/100 ML BAG IVPB ONE (09:49)
[2018-08-21] MEDS ORDERED: metOLazone 2.5 MG TAB PO SCH (10:00)
[2018-08-21] MEDS: Metoprolol Succinate 50 mg XL Tab PO SCH (10:17)
[2018-08-21] MEDS: Sodium Chloride Nasal 0.65% Soln (30ml) NAS SCH ×3 (10:21→18:01)
[2018-08-21] MEDS: Saccharomyces Boulardi 250 mg Cap PO SCH ×2 (10:51→18:09)
[2018-08-21] MEDS ORDERED: Magnesium Sulfate 1 gm in D5W 1 GM/100 ML BAG IVPB SCH (11:00)
--- NOTE | 2018-08-21 11:08 | CP.PCM.PN ---
Subjective - Date & Time of Evaluation Date of Evaluation: 08/21/18 Time of Evaluation: 11:05 - Subjective Subjective: Nephrology Progress Note for Dr. Henson Patient seen and examined at bedside. No acute overnight events. Patient states that she is short of breath. But denies chest pain, palpitations, dizziness and headaches. Objective - Vital Signs/Intake and Output Vital Signs (last 24 hours): Temp Pulse Resp BP Pulse Ox 102 F H 106 H 24 109/74 96 08/21/18 08:29 08/21/18 10:25 08/21/18 10:25 08/21/18 10:25 08/21/18 10:25 Intake and Output: 08/21/18 08/21/18 06:59 18:59 Intake Total 346 510.4 Output Total 800 381 Balance -454 129.4 - Medications Medications: Current Medications Acetaminophen (Tylenol 325mg Tab) 650 mg PO Q6 PRN PRN Reason: Fever >100.4 F or pain Last Admin: 08/21/18 08:29 Dose: 650 mg Albuterol/Ipratropium (Duoneb 3 Mg/0.5 Mg (3 Ml) Ud) 3 ml INH RQ4 PRN PRN Reason: Shortness of Breath Last Admin: 08/20/18 10:00 Dose: 3 ml Aspirin (Aspirin Chewable) 81 mg PO DAILY [facility] Last Admin: 08/20/18 09:54 Dose: Not Given Benzocaine/Menthol (Cepacol Sore Throat) 1 naheed MT Q4 PRN PRN Reason: Sore Throat Last Admin: 08/19/18 19:31 Dose: 1 naheed Famotidine (Pepcid) 20 mg PO DAILY [facility] Last Admin: 08/21/18 10:18 Dose: 20 mg Fluconazole (Diflucan) 100 mg PO DAILY [facility] Last Admin: 08/21/18 10:51 Dose: 100 mg Furosemide (Lasix) 40 mg IVP Q12 [facility] Last Admin: 08/21/18 10:25 Dose: 40 mg Guaifenesin (Robitussin) 100 mg PO Q4H PRN PRN Reason: Cough Last Admin: 08/18/18 07:13 Dose: 100 mg Heparin Sodium/Sodium Chloride (Heparin 11747 Units/250ml 1/2 Normal Saline) 25,000 units in 250 mls @ 13.032 mls/hr IV .[id number] PRN; Protocol PRN Reason: PROTOCOL Last Titration: 08/21/18 09:45 Dose: 15 units/kg/hr, 10.86 mls/hr Magnesium Sulfate/Dextrose (Magnesium Sulfate 1 Gm/100 Ml D5w) 1 gm in 100 mls @ 200 mls/hr IVPB Q30M [facility] Stop: 08/21/18 11:29 Last Admin: 08/21/18 10:52 Dose: Not Given Lidocaine HCl (Lidocaine 2% Viscous) 5 ml PO Q3H PRN PRN Reason: Other Last Admin: 08/21/18 10:18 Dose: 5 ml Metolazone (Zaroxolyn) 2.5 mg PO DAILY [facility] Metoprolol Succinate (Toprol Xl) 50 mg PO DAILY [facility] Last Admin: 08/21/18 10:17 Dose: 50 mg Nitroglycerin (Nitro-Bid 2% Oint) 1 ea TOP Q6H [facility] Last Admin: 08/21/18 07:30 Dose: 1 ea Potassium Chloride (Potassium Chloride Oral Soln) 20 meq PO Q2 [facility] Stop: 08/21/18 12:01 Last Admin: 08/21/18 10:17 Dose: 20 meq Rosuvastatin Calcium (Crestor) 10 mg PO HS [facility] Last Admin: 08/20/18 22:00 Dose: 10 mg Saccharomyces Boulardii (Florastor) 250 mg PO BID [facility] Last Admin: 08/21/18 10:51 Dose: 250 mg Sodium Chloride ([place]ward Baby Saline 30 Ml) 0 ml MICHAEL TID [facility] Last Admin: 08/21/18 10:21 Dose: 1 spr Trolamine Salicylate (Aspercreme) 1 gm TOP Q6H PRN PRN Reason: stiff neck Last Admin: 08/20/18 09:31 Dose: 1 gm - Labs Labs: 08/21/18 06:19 08/21/18 06:19 PT 22.0 SECONDS (9.7-12.2) H D 08/21/18 07:41 INR 2.0 D 08/21/18 07:41 APTT 111 SECONDS (21-34) H* D 08/21/18 07:41 - Constitutional Appears: No Acute Distress - Head Exam Head Exam: NORMAL INSPECTION - Eye Exam Eye Exam: Normal appearance Pupil Exam: NORMAL ACCOMODATION - ENT Exam ENT Exam: Mucous Membranes Moist, Normal Exam - Neck Exam Neck Exam: Normal Inspection - Respiratory Exam Respiratory Exam: Decreased Breath Sounds. absent: Rales, Rhonchi, Wheezes - Cardiovascular Exam Cardiovascular Exam: RRR, +S1, +S2. absent: Gallop, Rubs, Murmur - GI/Abdominal Exam GI & Abdominal Exam: Soft. absent: Distended, Guarding, Tenderness, Rebound - Extremities Exam Extremities Exam: Normal Inspection - Neurological Exam Neurological Exam: Alert, Awake, Oriented x3 - Psychiatric Exam Psychiatric exam: Normal Affect, Normal Mood - Skin Skin Exam: Dry, Intact, Normal Color, Warm Assessment and Plan - Assessment and Plan (Free Text) Assessment: 48yo female with history of anxiety, on OCP who presented following a syncopal episode and noted to be in afib with RVR with subsequent respiratory failure secondary to bilateral PE complicated by PNA. 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 Clinical course complicated by renal failure secondary to presumed ATN and NSTEMI s/p cath showing spontaneous right coronary artery dissection. Plan: - Slow improvement of renal function with bilateral infiltrates is concerning for possibility of pulmonary-renal syndrome - However, renal function has been improving, which makes pulmonary-renal syndrome less likely as renal function would be worsening - Will pursue renal biopsy next week if renal function does not improve over weekend; however, bx less likely at this point with improving renal function - Discussed with cardiology and will hold ASA/plavix for possible biopsy next week (Hold ASA over weekend, plavix already held) - Cont lasix 40 IVP q12h; goal is achieving at least 1L net negative daily fluid balance - Hold [employer]oz[employer] - Strict I's and O's with fluid restriction - Previously underwent emergent UF session secondary to pulmonary edema with 3 liters of UF goal achieved - CXR shows significant pulm vascular congestion - GBM AB pending - Cardiac cath - EF 45-50%; 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 Henson. Mehul Perez, DO PGY2
--- NOTE | 2018-08-21 11:24 | CP.CCUPN ---
<Ernie Moran - Last Filed: 08/21/18 15:03> CCU Subjective - Physician Review Subjective (Free Text): 08/21/18 11:21 Pt seen and examined at bedside. Pt sitting comfortably in bed. Pt reports feeling cold. fever this AM 102. Pt feels that generalized weakness and fatigue is improving. denies nv cp sob urinary or stool changes. CCU Objective - Vital Signs / Intake & Output Vital Signs (Last 4 hours): Vital Signs Temp Pulse Resp BP Pulse Ox 08/21/18 10:25 106 H 24 109/74 96 08/21/18 10:00 116 H 32 H 98 08/21/18 09:22 109 H 08/21/18 09:01 108 H 27 H 108/72 99 08/21/18 09:00 109 H 24 100 08/21/18 08:29 102 F H 08/21/18 08:01 109 H 29 H 115/69 100 08/21/18 08:00 102 F H 109 H 25 H 115/69 100 Intake and Output (Last 8hrs): Intake & Output 08/20/18 08/21/18 08/21/18 22:59 06:59 14:59 Intake Total 514 134 510.4 Output Total 1400 500 381 Balance -886 -366 129.4 Weight 155 lb 3.287 oz Intake: IV 270 Intake, IV Amount 104 104 40.4 RIJ trialysis 13 Right Antecubital 91 104 40.4 Oral 410 30 200 Output: Urine 1400 500 380 Urine, Voided 1400 500 380 Stool 1 Emesis 0 Other: # Voids Urine, Voided 1 1 1 # Bowel Movements 0 - Physical Exam Head: Positive for: Atraumatic, Normocephalic Pupils: Positive for: PERRL Extroacular Muscles: Positive for: EOMI Conjunctiva: Positive for: Normal Mouth: Positive for: Moist Mucous Membranes Pharnyx: Positive for: Other (ett in place) Nose (Internal): Positive for: Normal Inspection Neck: Positive for: Normal Range of Motion, Trachea Midline Respiratory/Chest: Positive for: Decreased Breath Sounds, Rales (b/l bases). Negative for: Respiratory Distress, Accessory Muscle Use Cardiovascular: Positive for: Regular Rate and Rhythm, Normal S1, S2, Tachycardic Abdomen: Positive for: Normal Bowel Sounds. Negative for: Tenderness, Distention Back: Positive for: Paraspinal Tenderness Upper Extremity: Positive for: Normal Inspection. Negative for: Cyanosis Lower Extremity: Negative for: CALF TENDERNESS, Temperature Abnormalties Neurological: Positive for: GCS=15, CN II-XII Intact, Speech Normal Skin: Positive for: Warm, Dry, Normal Color Lymphatic: Negative for: Cervical Adenopathy Psychiatric: Positive for: Alert, Oriented x 3, Normal Insight - Medications Active Medications: Active Medications Generic Name Dose Route Start Last Admin Trade Name Freq PRN Reason Stop Dose Admin Acetaminophen 650 mg 08/19/18 13:57 08/21/18 08:29 Tylenol 325mg Tab PO 650 mg Q6 PRN Administration Fever >100.4 F or pain Albuterol/Ipratropium 3 ml 08/18/18 07:29 08/20/18 10:00 Duoneb 3 Mg/0.5 Mg (3 Ml) Ud INH 3 ml RQ4 PRN Administration Shortness of Breath Aspirin 81 mg 08/08/18 10:00 08/20/18 09:54 Aspirin Chewable PO Not Given DAILY KACY Benzocaine/Menthol 1 naheed 08/13/18 15:28 08/19/18 19:31 Cepacol Sore Throat MT 1 naheed Q4 PRN Administration Sore Throat Famotidine 20 mg 08/08/18 10:00 08/21/18 10:18 Pepcid PO 20 mg DAILY KACY Administration Fluconazole 100 mg 08/21/18 10:00 08/21/18 10:51 Diflucan PO 100 mg DAILY KACY Administration Furosemide 40 mg 08/20/18 13:23 08/21/18 10:25 Lasix IVP 40 mg Q12 KACY Administration Guaifenesin 100 mg 08/10/18 11:22 08/18/18 07:13 Robitussin PO 100 mg Q4H PRN Administration Cough Heparin Sodium/Sodium Chloride 25,000 units in 250 mls @ 13.032 mls/hr 08/20/18 10:52 08/21/18 09:45 Heparin 29216 Units/250ml 1/2 Normal Saline IV 15 units/kg/hr .[id number] PRN 10.86 mls/hr PROTOCOL Titration Protocol 18 UNITS/KG/HR Magnesium Sulfate/Dextrose 1 gm in 100 mls @ 200 mls/hr 08/21/18 11:00 08/21/18 10:52 Magnesium Sulfate 1 Gm/100 Ml D5w IVPB 08/21/18 11:29 Not Given Q30M KACY Lidocaine HCl 5 ml 08/07/18 13:19 08/21/18 10:18 Lidocaine 2% Viscous PO 5 ml Q3H PRN Administration Other Metolazone 2.5 mg 08/21/18 10:00 Zaroxolyn PO DAILY KACY Metoprolol Succinate 50 mg 08/08/18 15:00 08/21/18 10:17 Toprol Xl PO 50 mg DAILY KACY Administration Nitroglycerin 1 ea 08/10/18 12:30 08/21/18 07:30 Nitro-Bid 2% Oint TOP 1 ea Q6H KACY Administration Potassium Chloride 20 meq 08/21/18 08:00 08/21/18 10:17 Potassium Chloride Oral Soln PO 08/21/18 12:01 20 meq Q2 KACY Administration Rosuvastatin Calcium 10 mg 08/10/18 22:00 08/20/18 22:00 Crestor PO 10 mg HS KACY Administration Saccharomyces Boulardii 250 mg 08/05/18 10:00 08/21/18 10:51 Florastor PO 250 mg BID KACY Administration Sodium Chloride 0 ml 08/11/18 10:00 08/21/18 10:21 [place] Baby Saline 30 Ml MICHAEL 1 spr TID KACY Administration Trolamine Salicylate 1 gm 08/16/18 16:55 08/20/18 09:31 Aspercreme TOP 1 gm Q6H PRN Administration stiff neck - Patient Studies Lab Studies: Lab Studies 08/21/18 08/21/18 08/21/18 Range/Units 07:41 06:19 06:19 WBC (4.8-10.8) K/uL RBC (3.80-5.20) Mil/uL Hgb (11.0-16.0) g/dL Hct (34.0-47.0) % MCV (81.0-99.0) fL MCH (27.0-31.0) pg MCHC (33.0-37.0) g/dL RDW (11.5-14.5) % Plt Count (130-400) K/uL MPV (7.2-11.7) fL Neut % (Auto) (50.0-75.0) % Lymph % (Auto) (20.0-40.0) % [place] % (Auto) (0.0-10.0) % Eos % (Auto) (0.0-4.0) % Baso % (Auto) (0.0-2.0) % Neut # (Auto) (1.8-7.0) K/uL Lymph # (Auto) (1.0-4.3) K/uL [place] # (Auto) (0.0-0.8) K/uL Eos # (Auto) (0.0-0.7) K/uL Baso # (Auto) (0.0-0.2) K/uL PT 22.0 H D Cancelled INR 2.0 D Cancelled APTT 111 H* D Cancelled (21-34) SECONDS Sodium 142 (132-148) mmol/L Potassium 3.3 L (3.6-5.2) mmol/L Chloride 105 (98-107) mmol/L Carbon Dioxide 25 (22-30) mmol/L Anion Gap 14 (10-20) BUN 64 H (7-17) mg/dL Creatinine 2.3 H (0.7-1.2) mg/dL Est GFR ( Amer) 28 Est GFR (Non-Af Amer) 23 Random Glucose 93 (65-105) mg/dL Calcium 8.3 L (8.6-10.4) mg/dl Phosphorus 5.0 H (2.5-4.5) mg/dL Magnesium 1.7 (1.6-2.3) mg/dL Total Bilirubin 0.6 (0.2-1.3) mg/dL AST 62 H (14-36) U/L ALT 39 (9-52) U/L Alkaline Phosphatase 144 H (38-126) U/L NT-Pro-B Natriuret Pep (0-450) pg/mL Total Protein 6.6 (6.3-8.3) g/dL Albumin 3.1 L (3.5-5.0) g/dL Globulin 3.6 (2.2-3.9) gm/dL Albumin/Globulin Ratio 0.9 L (1.0-2.1) Procalcitonin (0.19-0.49) NG/ML Urine Color (YELLOW) Urine Clarity (Clear) Urine pH (5.0-8.0) Ur Specific [place] (1.003-1.030) Urine Protein (NEGATIVE) mg/dL Urine Glucose (UA) (Normal) mg/dL Urine Ketones (NEGATIVE) mg/dL Urine Blood (NEGATIVE) Urine Nitrate (NEGATIVE) Urine Bilirubin (NEGATIVE) Urine Urobilinogen (0.2-1.0) mg/dL Ur Leukocyte Esterase (Negative) Jessica/uL Urine WBC (Auto) (0-5) /hpf Urine RBC (Auto) (0-3) /hpf Ur Squamous Epith Cells (0-5) /hpf Urine Bacteria (<OCC) 08/21/18 08/20/18 08/20/18 Range/Units 06:19 23:45 17:55 WBC 6.4 (4.8-10.8) K/uL RBC 3.08 L (3.80-5.20) Mil/uL Hgb 8.3 L (11.0-16.0) g/dL Hct 24.8 L (34.0-47.0) % MCV 80.6 L (81.0-99.0) fL MCH 27.1 (27.0-31.0) pg MCHC 33.6 (33.0-37.0) g/dL RDW 17.7 H (11.5-14.5) % Plt Count 317 (130-400) K/uL MPV 9.2 (7.2-11.7) fL Neut % (Auto) 69.3 (50.0-75.0) % Lymph % (Auto) 22.9 (20.0-40.0) % [place] % (Auto) 6.6 (0.0-10.0) % Eos % (Auto) 0.6 (0.0-4.0) % Baso % (Auto) 0.6 (0.0-2.0) % Neut # (Auto) 4.4 (1.8-7.0) K/uL Lymph # (Auto) 1.5 (1.0-4.3) K/uL [place] # (Auto) 0.4 (0.0-0.8) K/uL Eos # (Auto) 0.0 (0.0-0.7) K/uL Baso # (Auto) 0.0 (0.0-0.2) K/uL PT INR APTT 89 H D 66 H (21-34) SECONDS Sodium (132-148) mmol/L Potassium (3.6-5.2) mmol/L Chloride (98-107) mmol/L Carbon Dioxide (22-30) mmol/L Anion Gap (10-20) BUN (7-17) mg/dL Creatinine (0.7-1.2) mg/dL Est GFR ( Amer) Est GFR (Non-Af Amer) Random Glucose (65-105) mg/dL Calcium (8.6-10.4) mg/dl Phosphorus (2.5-4.5) mg/dL Magnesium (1.6-2.3) mg/dL Total Bilirubin (0.2-1.3) mg/dL AST (14-36) U/L ALT (9-52) U/L Alkaline Phosphatase (38-126) U/L NT-Pro-B Natriuret Pep (0-450) pg/mL Total Protein (6.3-8.3) g/dL Albumin (3.5-5.0) g/dL Globulin (2.2-3.9) gm/dL Albumin/Globulin Ratio (1.0-2.1) Procalcitonin (0.19-0.49) NG/ML Urine Color (YELLOW) Urine Clarity (Clear) Urine pH (5.0-8.0) Ur Specific [place] (1.003-1.030) Urine Protein (NEGATIVE) mg/dL Urine Glucose (UA) (Normal) mg/dL Urine Ketones (NEGATIVE) mg/dL Urine Blood (NEGATIVE) Urine Nitrate (NEGATIVE) Urine Bilirubin (NEGATIVE) Urine Urobilinogen (0.2-1.0) mg/dL Ur Leukocyte Esterase (Negative) Jessica/uL Urine WBC (Auto) (0-5) /hpf Urine RBC (Auto) (0-3) /hpf Ur Squamous Epith Cells (0-5) /hpf Urine Bacteria (<OCC) 08/20/18 08/20/18 08/20/18 Range/Units 17:55 13:31 12:13 WBC (4.8-10.8) K/uL RBC (3.80-5.20) Mil/uL Hgb (11.0-16.0) g/dL Hct (34.0-47.0) % MCV (81.0-99.0) fL MCH (27.0-31.0) pg MCHC (33.0-37.0) g/dL RDW (11.5-14.5) % Plt Count (130-400) K/uL MPV (7.2-11.7) fL Neut % (Auto) (50.0-75.0) % Lymph % (Auto) (20.0-40.0) % [place] % (Auto) (0.0-10.0) % Eos % (Auto) (0.0-4.0) % Baso % (Auto) (0.0-2.0) % Neut # (Auto) (1.8-7.0) K/uL Lymph # (Auto) (1.0-4.3) K/uL [place] # (Auto) (0.0-0.8) K/uL Eos # (Auto) (0.0-0.7) K/uL Baso # (Auto) (0.0-0.2) K/uL PT INR APTT (21-34) SECONDS Sodium (132-148) mmol/L Potassium (3.6-5.2) mmol/L Chloride (98-107) mmol/L Carbon Dioxide (22-30) mmol/L Anion Gap (10-20) BUN (7-17) mg/dL Creatinine (0.7-1.2) mg/dL Est GFR ( Amer) Est GFR (Non-Af Amer) Random Glucose (65-105) mg/dL Calcium (8.6-10.4) mg/dl Phosphorus (2.5-4.5) mg/dL Magnesium (1.6-2.3) mg/dL Total Bilirubin (0.2-1.3) mg/dL AST (14-36) U/L ALT (9-52) U/L Alkaline Phosphatase (38-126) U/L NT-Pro-B Natriuret Pep 40111 H (0-450) pg/mL Total Protein (6.3-8.3) g/dL Albumin (3.5-5.0) g/dL Globulin (2.2-3.9) gm/dL Albumin/Globulin Ratio (1.0-2.1) Procalcitonin 2.81 H (0.19-0.49) NG/ML Urine Color Yellow (YELLOW) Urine Clarity Clear (Clear) Urine pH 6.0 (5.0-8.0) Ur Specific [place] 1.008 (1.003-1.030) Urine Protein Negative (NEGATIVE) mg/dL Urine Glucose (UA) Normal (Normal) mg/dL Urine Ketones Negative (NEGATIVE) mg/dL Urine Blood 1+ H (NEGATIVE) Urine Nitrate Negative (NEGATIVE) Urine Bilirubin Negative (NEGATIVE) Urine Urobilinogen Normal (0.2-1.0) mg/dL Ur Leukocyte Esterase Neg (Negative) Jessica/uL Urine WBC (Auto) 3 (0-5) /hpf Urine RBC (Auto) 15 H (0-3) /hpf Ur Squamous Epith Cells 5 (0-5) /hpf Urine Bacteria Occ H (<OCC) Laboratory Results - last 24 hr 08/20/18 08/20/18 08/20/18 12:13 13:31 17:55 WBC RBC Hgb Hct MCV MCH MCHC RDW Plt Count MPV Neut % (Auto) Lymph % (Auto) [place] % (Auto) Eos % (Auto) Baso % (Auto) Neut # (Auto) Lymph # (Auto) [place] # (Auto) Eos # (Auto) Baso # (Auto) PT INR APTT Sodium Potassium Chloride Carbon Dioxide Anion Gap BUN Creatinine Est GFR ( Amer) Est GFR (Non-Af Amer) Random Glucose Calcium Phosphorus Magnesium Total Bilirubin AST ALT Alkaline Phosphatase NT-Pro-B Natriuret Pep 61283 H Total Protein Albumin Globulin Albumin/Globulin Ratio Procalcitonin 2.81 H Urine Color Yellow Urine Clarity Clear Urine pH 6.0 Ur Specific [place] 1.008 Urine Protein Negative Urine Glucose (UA) Normal Urine Ketones Negative Urine Blood 1+ H Urine Nitrate Negative Urine Bilirubin Negative Urine Urobilinogen Normal Ur Leukocyte Esterase Neg Urine WBC (Auto) 3 Urine RBC (Auto) 15 H Ur Squamous Epith Cells 5 Urine Bacteria Occ H 08/20/18 08/20/18 08/21/18 17:55 23:45 06:19 WBC 6.4 RBC 3.08 L Hgb 8.3 L Hct 24.8 L MCV 80.6 L MCH 27.1 MCHC 33.6 RDW 17.7 H Plt Count 317 MPV 9.2 Neut % (Auto) 69.3 Lymph % (Auto) 22.9 [place] % (Auto) 6.6 Eos % (Auto) 0.6 Baso % (Auto) 0.6 Neut # (Auto) 4.4 Lymph # (Auto) 1.5 [place] # (Auto) 0.4 Eos # (Auto) 0.0 Baso # (Auto) 0.0 PT INR APTT 66 H 89 H D Sodium Potassium Chloride Carbon Dioxide Anion Gap BUN Creatinine Est GFR ( Amer) Est GFR (Non-Af Amer) Random Glucose Calcium Phosphorus Magnesium Total Bilirubin AST ALT Alkaline Phosphatase NT-Pro-B Natriuret Pep Total Protein Albumin Globulin Albumin/Globulin Ratio Procalcitonin Urine Color Urine Clarity Urine pH Ur Specific [place] Urine Protein Urine Glucose (UA) Urine Ketones Urine Blood Urine Nitrate Urine Bilirubin Urine Urobilinogen Ur Leukocyte Esterase Urine WBC (Auto) Urine RBC (Auto) Ur Squamous Epith Cells Urine Bacteria 08/21/18 08/21/18 08/21/18 06:19 06:19 07:41 WBC RBC Hgb Hct MCV MCH MCHC RDW Plt Count MPV Neut % (Auto) Lymph % (Auto) [place] % (Auto) Eos % (Auto) Baso % (Auto) Neut # (Auto) Lymph # (Auto) [place] # (Auto) Eos # (Auto) Baso # (Auto) PT Cancelled 22.0 H D INR Cancelled 2.0 D APTT Cancelled 111 H* D Sodium 142 Potassium 3.3 L Chloride 105 Carbon Dioxide 25 Anion Gap 14 BUN 64 H Creatinine 2.3 H Est GFR ( Amer) 28 Est GFR (Non-Af Amer) 23 Random Glucose 93 Calcium 8.3 L Phosphorus 5.0 H Magnesium 1.7 Total Bilirubin 0.6 AST 62 H ALT 39 Alkaline Phosphatase 144 H NT-Pro-B Natriuret Pep Total Protein 6.6 Albumin 3.1 L Globulin 3.6 Albumin/Globulin Ratio 0.9 L Procalcitonin Urine Color Urine Clarity Urine pH Ur Specific [place] Urine Protein Urine Glucose (UA) Urine Ketones Urine Blood Urine Nitrate Urine Bilirubin Urine Urobilinogen Ur Leukocyte Esterase Urine WBC (Auto) Urine RBC (Auto) Ur Squamous Epith Cells Urine Bacteria Fingerstick Blood Sugar Results: 288 Review of Systems - Review of Systems All systems: reviewed and no additional remarkable complaints except (as stated above) Critical Care Progress Note - Nutrition Nutrition: Nutrition Category Date Time Status Heart Healthy Diet [DIET] Diets 08/17/18 Dinner Active Assessment/Plan - Assessment and Plan (Free Text) Assessment: Patient is a 48 yo female who was previously admitted to the ICU twice for b/l PE, LLE DVT, RCA dissection, NSTEMI with cardiac arrest, and renal failure. [employer] was called for respiratory distress. Patient required BiPap and emergent HD, and she was transferred to the ICU. Breathing has improved. BUN/Cr is not improving- will likely need renal Bx. Plan: Neuro: - No acute issues - A&O x4 - Continue to monitor CV: Afib with RVR - presently sinus tachycardia - Metoprolol 50 mg PO daily - ASA 81 mg PO daily-hold pending bx - Plavix 75 mg PO daily- hold pending possible renal Bx - Warfarin 2mg PO QHS- hold due to pending Bx RCA Dissection - Cardiac cath: EF 45-50%, RCA dissection - Troponin trending down - Crestor 10 mg PO QHS - INR- 2.0 today - PTT 111 - heparin drip @ 18 - Nitroglycerin 2% ointment Q6H - Surgery consulted (Mike)- no need for IVC filter, pt tolerating oral anticoagulation - Cardiology consulted (Mejia)- medical management Pulm: Pulmonary congestion - likely 2' to fluid overload - CT chest 08/20: pulm edema w/ kurley b lines - Maintain spO2>92% - Off BiPap- saturating well on RA (>96%) - Incentive spirometry - Duoneb Q4H PRN - Robitussin 100 mg PO Q4H PRN Possible Pulmonary Renal Syndrome -f/u renal biopsy GI: - FOBT positive - Salmonella equivalent - C. Diff negative - Diarrhea resolved - Heart healthy diet - Florastor 250 mg PO BID Renal: ESRD- r/o Possible Pulmonary Renal Syndrome - Elevated BUN/Cr- stable - Fluid overload - Emergency HD 08/18 - Strict I's & O's: traget fluid balance neg 1L - GBM Ab pending - Lasix 40 mg IV Q12H - Nephrology consulted (Natividad)- friday renal Bx Endo: - Maintain euglycemia Heme: Pulmonary Embolus - Lupus w/u negative - H&H stable, continue to monitor - Rheum consulted (Tamanna) - Heme/onc consulted (Pedro) ID: Fever - f/u blood urine sputum cultures - Tylenol 650 mg PO Q6H PRN - HIV, hepatitis negative - WBC much improved from earlier in admission - Fluconazole 100 mg IV daily - IV Vanc and Cefepime - Remove TLC in right IJ: likely source - ID consulted (Nohemy) Ppx: VTE: therapeutic warfarin GI: Pepcid 20 mg PO daily IVF: not indicated Prognosis guarded, <Marta Kellogg M - Last Filed: 08/21/18 16:44> CCU Objective - Vital Signs / Intake & Output Vital Signs (Last 4 hours): Vital Signs Pulse Resp Pulse Ox 08/21/18 15:00 100 H 21 100 08/21/18 14:00 97 H 25 H 96 08/21/18 13:36 106 H 08/21/18 13:00 94 H 25 H 99 Intake and Output (Last 8hrs): Intake & Output 08/21/18 08/21/18 08/21/18 06:59 14:59 22:59 Intake Total 134 656.0 127.4 Output Total 500 1061 Balance -366 -405.0 127.4 Weight 155 lb 3.287 oz Intake: IV 270 66 Intake, IV Amount 104 186.0 61.4 Right Antecubital 104 86.0 11.4 right ij trialysis cath 100 50 Oral 30 200 Output: Urine 500 1060 Urine, Voided 500 1060 Stool 1 Other: # Voids Urine, Voided 1 1 - Medications Active Medications: Active Medications Generic Name Dose Route Start Last Admin Trade Name Freq PRN Reason Stop Dose Admin Acetaminophen 650 mg 08/19/18 13:57 08/21/18 08:29 Tylenol 325mg Tab PO 650 mg Q6 PRN Administration Fever >100.4 F or pain Albuterol/Ipratropium 3 ml 08/18/18 07:29 08/21/18 15:45 Duoneb 3 Mg/0.5 Mg (3 Ml) Ud INH 3 ml RQ4 PRN Administration Shortness of Breath Aspirin 81 mg 08/08/18 10:00 08/20/18 09:54 Aspirin Chewable PO Not Given DAILY KACY Benzocaine/Menthol 1 naheed 08/13/18 15:28 08/21/18 16:24 Cepacol Sore Throat MT 1 naheed Q4 PRN Administration Sore Throat Famotidine 20 mg 08/08/18 10:00 08/21/18 10:18 Pepcid PO 20 mg DAILY KACY Administration Fluconazole 100 mg 08/21/18 10:00 08/21/18 10:51 Diflucan PO 100 mg DAILY KACY Administration Furosemide 40 mg 08/20/18 13:23 08/21/18 10:25 Lasix IVP 40 mg Q12 KACY Administration Guaifenesin 100 mg 08/10/18 11:22 08/18/18 07:13 Robitussin PO 100 mg Q4H PRN Administration Cough Heparin Sodium/Sodium Chloride 25,000 units in 250 mls @ 13.032 mls/hr 08/20/18 10:52 08/21/18 15:30 Heparin 77143 Units/250ml 1/2 Normal Saline IV 0 units/kg/hr .[id number] PRN 0 mls/hr PROTOCOL Titration Protocol 18 UNITS/KG/HR Cefepime HCl 1 gm in 50 mls @ 100 mls/hr 08/21/18 16:00 08/21/18 16:22 Maxipime Iv 1 Gm Premix IVPB 100 mls/hr Q24H KACY Administration Protocol Lidocaine HCl 5 ml 08/07/18 13:19 08/21/18 10:18 Lidocaine 2% Viscous PO 5 ml Q3H PRN Administration Other Metolazone 2.5 mg 08/21/18 10:00 Zaroxolyn PO DAILY [facility] Metoprolol Succinate 50 mg 08/08/18 15:00 08/21/18 10:17 Toprol Xl PO 50 mg DAILY KACY Administration Nitroglycerin 1 ea 08/10/18 12:30 08/21/18 12:22 Nitro-Bid 2% Oint TOP Not Given Q6H [facility] Rosuvastatin Calcium 10 mg 08/10/18 22:00 08/20/18 22:00 Crestor PO 10 mg HS KACY Administration Saccharomyces Boulardii 250 mg 08/05/18 10:00 08/21/18 10:51 Florastor PO 250 mg BID KACY Administration Sodium Chloride 0 ml 08/11/18 10:00 08/21/18 14:00 [place] Baby Saline 30 Ml MICHAEL 1 spr TID KACY Administration Trolamine Salicylate 1 gm 08/16/18 16:55 08/20/18 09:31 Aspercreme TOP 1 gm Q6H PRN Administration stiff neck - Patient Studies Lab Studies: Lab Studies 08/21/18 08/21/18 08/21/18 Range/Units 15:30 15:30 11:56 WBC (4.8-10.8) K/uL RBC (3.80-5.20) Mil/uL Hgb (11.0-16.0) g/dL Hct (34.0-47.0) % MCV (81.0-99.0) fL MCH (27.0-31.0) pg MCHC (33.0-37.0) g/dL RDW (11.5-14.5) % Plt Count (130-400) K/uL MPV (7.2-11.7) fL Neut % (Auto) (50.0-75.0) % Lymph % (Auto) (20.0-40.0) % [place] % (Auto) (0.0-10.0) % Eos % (Auto) (0.0-4.0) % Baso % (Auto) (0.0-2.0) % Neut # (Auto) (1.8-7.0) K/uL Lymph # (Auto) (1.0-4.3) K/uL [place] # (Auto) (0.0-0.8) K/uL Eos # (Auto) (0.0-0.7) K/uL Baso # (Auto) (0.0-0.2) K/uL PT INR APTT 97 H D (21-34) SECONDS Sodium (132-148) mmol/L Potassium (3.6-5.2) mmol/L Chloride (98-107) mmol/L Carbon Dioxide (22-30) mmol/L Anion Gap (10-20) BUN (7-17) mg/dL Creatinine (0.7-1.2) mg/dL Est GFR ( Amer) Est GFR (Non-Af Amer) Random Glucose (65-105) mg/dL Calcium (8.6-10.4) mg/dl Phosphorus (2.5-4.5) mg/dL Magnesium (1.6-2.3) mg/dL Total Bilirubin (0.2-1.3) mg/dL AST (14-36) U/L ALT (9-52) U/L Alkaline Phosphatase (38-126) U/L Total Protein (6.3-8.3) g/dL Albumin (3.5-5.0) g/dL Globulin (2.2-3.9) gm/dL Albumin/Globulin Ratio (1.0-2.1) Procalcitonin (0.19-0.49) NG/ML Urine Color Straw (YELLOW) Urine Clarity Clear (Clear) Urine pH 6.0 (5.0-8.0) Ur Specific [place] 1.006 (1.003-1.030) Urine Protein Negative (NEGATIVE) mg/dL Urine Glucose (UA) Normal (Normal) mg/dL Urine Ketones Negative (NEGATIVE) mg/dL Urine Blood 1+ H (NEGATIVE) Urine Nitrate Negative (NEGATIVE) Urine Bilirubin Negative (NEGATIVE) Urine Urobilinogen Normal (0.2-1.0) mg/dL Ur Leukocyte Esterase Neg (Negative) Jessica/uL Urine WBC (Auto) 3 (0-5) /hpf Urine RBC (Auto) 3 (0-3) /hpf Ur Squamous Epith Cells < 1 (0-5) /hpf Urine Bacteria Mod H (<OCC) Vancomycin Trough (5.0-10.0) ug/mL Blood Type A POSITIVE Antibody Screen Negative 08/21/18 08/21/18 08/21/18 Range/Units 11:56 07:41 06:19 WBC (4.8-10.8) K/uL RBC (3.80-5.20) Mil/uL Hgb (11.0-16.0) g/dL Hct (34.0-47.0) % MCV (81.0-99.0) fL MCH (27.0-31.0) pg MCHC (33.0-37.0) g/dL RDW (11.5-14.5) % Plt Count (130-400) K/uL MPV (7.2-11.7) fL Neut % (Auto) (50.0-75.0) % Lymph % (Auto) (20.0-40.0) % [place] % (Auto) (0.0-10.0) % Eos % (Auto) (0.0-4.0) % Baso % (Auto) (0.0-2.0) % Neut # (Auto) (1.8-7.0) K/uL Lymph # (Auto) (1.0-4.3) K/uL [place] # (Auto) (0.0-0.8) K/uL Eos # (Auto) (0.0-0.7) K/uL Baso # (Auto) (0.0-0.2) K/uL PT 22.0 H D INR 2.0 D APTT 111 H* D (21-34) SECONDS Sodium 142 (132-148) mmol/L Potassium 3.3 L (3.6-5.2) mmol/L Chloride 105 (98-107) mmol/L Carbon Dioxide 25 (22-30) mmol/L Anion Gap 14 (10-20) BUN 64 H (7-17) mg/dL Creatinine 2.3 H (0.7-1.2) mg/dL Est GFR ( Amer) 28 Est GFR (Non-Af Amer) 23 Random Glucose 93 (65-105) mg/dL Calcium 8.3 L (8.6-10.4) mg/dl Phosphorus 5.0 H (2.5-4.5) mg/dL Magnesium 1.7 (1.6-2.3) mg/dL Total Bilirubin 0.6 (0.2-1.3) mg/dL AST 62 H (14-36) U/L ALT 39 (9-52) U/L Alkaline Phosphatase 144 H (38-126) U/L Total Protein 6.6 (6.3-8.3) g/dL Albumin 3.1 L (3.5-5.0) g/dL Globulin 3.6 (2.2-3.9) gm/dL Albumin/Globulin Ratio 0.9 L (1.0-2.1) Procalcitonin (0.19-0.49) NG/ML Urine Color (YELLOW) Urine Clarity (Clear) Urine pH (5.0-8.0) Ur Specific [place] (1.003-1.030) Urine Protein (NEGATIVE) mg/dL Urine Glucose (UA) (Normal) mg/dL Urine Ketones (NEGATIVE) mg/dL Urine Blood (NEGATIVE) Urine Nitrate (NEGATIVE) Urine Bilirubin (NEGATIVE) Urine Urobilinogen (0.2-1.0) mg/dL Ur Leukocyte Esterase (Negative) Jessica/uL Urine WBC (Auto) (0-5) /hpf Urine RBC (Auto) (0-3) /hpf Ur Squamous Epith Cells (0-5) /hpf Urine Bacteria (<OCC) Vancomycin Trough < 5.0 L (5.0-10.0) ug/mL Blood Type Antibody Screen 08/21/18 08/21/18 08/20/18 Range/Units 06:19 06:19 23:45 WBC 6.4 (4.8-10.8) K/uL RBC 3.08 L (3.80-5.20) Mil/uL Hgb 8.3 L (11.0-16.0) g/dL Hct 24.8 L (34.0-47.0) % MCV 80.6 L (81.0-99.0) fL MCH 27.1 (27.0-31.0) pg MCHC 33.6 (33.0-37.0) g/dL RDW 17.7 H (11.5-14.5) % Plt Count 317 (130-400) K/uL MPV 9.2 (7.2-11.7) fL Neut % (Auto) 69.3 (50.0-75.0) % Lymph % (Auto) 22.9 (20.0-40.0) % [place] % (Auto) 6.6 (0.0-10.0) % Eos % (Auto) 0.6 (0.0-4.0) % Baso % (Auto) 0.6 (0.0-2.0) % Neut # (Auto) 4.4 (1.8-7.0) K/uL Lymph # (Auto) 1.5 (1.0-4.3) K/uL [place] # (Auto) 0.4 (0.0-0.8) K/uL Eos # (Auto) 0.0 (0.0-0.7) K/uL Baso # (Auto) 0.0 (0.0-0.2) K/uL PT Cancelled INR Cancelled APTT Cancelled 89 H D (21-34) SECONDS Sodium (132-148) mmol/L Potassium (3.6-5.2) mmol/L Chloride (98-107) mmol/L Carbon Dioxide (22-30) mmol/L Anion Gap (10-20) BUN (7-17) mg/dL Creatinine (0.7-1.2) mg/dL Est GFR ( Amer) Est GFR (Non-Af Amer) Random Glucose (65-105) mg/dL Calcium (8.6-10.4) mg/dl Phosphorus (2.5-4.5) mg/dL Magnesium (1.6-2.3) mg/dL Total Bilirubin (0.2-1.3) mg/dL AST (14-36) U/L ALT (9-52) U/L Alkaline Phosphatase (38-126) U/L Total Protein (6.3-8.3) g/dL Albumin (3.5-5.0) g/dL Globulin (2.2-3.9) gm/dL Albumin/Globulin Ratio (1.0-2.1) Procalcitonin (0.19-0.49) NG/ML Urine Color (YELLOW) Urine Clarity (Clear) Urine pH (5.0-8.0) Ur Specific [place] (1.003-1.030) Urine Protein (NEGATIVE) mg/dL Urine Glucose (UA) (Normal) mg/dL Urine Ketones (NEGATIVE) mg/dL Urine Blood (NEGATIVE) Urine Nitrate (NEGATIVE) Urine Bilirubin (NEGATIVE) Urine Urobilinogen (0.2-1.0) mg/dL Ur Leukocyte Esterase (Negative) Jessica/uL Urine WBC (Auto) (0-5) /hpf Urine RBC (Auto) (0-3) /hpf Ur Squamous Epith Cells (0-5) /hpf Urine Bacteria (<OCC) Vancomycin Trough (5.0-10.0) ug/mL Blood Type Antibody Screen 08/20/18 08/20/18 Range/Units 17:55 17:55 WBC (4.8-10.8) K/uL RBC (3.80-5.20) Mil/uL Hgb (11.0-16.0) g/dL Hct (34.0-47.0) % MCV (81.0-99.0) fL MCH (27.0-31.0) pg MCHC (33.0-37.0) g/dL RDW (11.5-14.5) % Plt Count (130-400) K/uL MPV (7.2-11.7) fL Neut % (Auto) (50.0-75.0) % Lymph % (Auto) (20.0-40.0) % [place] % (Auto) (0.0-10.0) % Eos % (Auto) (0.0-4.0) % Baso % (Auto) (0.0-2.0) % Neut # (Auto) (1.8-7.0) K/uL Lymph # (Auto) (1.0-4.3) K/uL [place] # (Auto) (0.0-0.8) K/uL Eos # (Auto) (0.0-0.7) K/uL Baso # (Auto) (0.0-0.2) K/uL PT INR APTT 66 H (21-34) SECONDS Sodium (132-148) mmol/L Potassium (3.6-5.2) mmol/L Chloride (98-107) mmol/L Carbon Dioxide (22-30) mmol/L Anion Gap (10-20) BUN (7-17) mg/dL Creatinine (0.7-1.2) mg/dL Est GFR ( Amer) Est GFR (Non-Af Amer) Random Glucose (65-105) mg/dL Calcium (8.6-10.4) mg/dl Phosphorus (2.5-4.5) mg/dL Magnesium (1.6-2.3) mg/dL Total Bilirubin (0.2-1.3) mg/dL AST (14-36) U/L ALT (9-52) U/L Alkaline Phosphatase (38-126) U/L Total Protein (6.3-8.3) g/dL Albumin (3.5-5.0) g/dL Globulin (2.2-3.9) gm/dL Albumin/Globulin Ratio (1.0-2.1) Procalcitonin 2.81 H (0.19-0.49) NG/ML Urine Color (YELLOW) Urine Clarity (Clear) Urine pH (5.0-8.0) Ur Specific [place] (1.003-1.030) Urine Protein (NEGATIVE) mg/dL Urine Glucose (UA) (Normal) mg/dL Urine Ketones (NEGATIVE) mg/dL Urine Blood (NEGATIVE) Urine Nitrate (NEGATIVE) Urine Bilirubin (NEGATIVE) Urine Urobilinogen (0.2-1.0) mg/dL Ur Leukocyte Esterase (Negative) Jessica/uL Urine WBC (Auto) (0-5) /hpf Urine RBC (Auto) (0-3) /hpf Ur Squamous Epith Cells (0-5) /hpf Urine Bacteria (<OCC) Vancomycin Trough (5.0-10.0) ug/mL Blood Type Antibody Screen Laboratory Results - last 24 hr 08/20/18 08/20/18 08/20/18 17:55 17:55 23:45 WBC RBC Hgb Hct MCV MCH MCHC RDW Plt Count MPV Neut % (Auto) Lymph % (Auto) [place] % (Auto) Eos % (Auto) Baso % (Auto) Neut # (Auto) Lymph # (Auto) [place] # (Auto) Eos # (Auto) Baso # (Auto) PT INR APTT 66 H 89 H D Sodium Potassium Chloride Carbon Dioxide Anion Gap BUN Creatinine Est GFR ( Amer) Est GFR (Non-Af Amer) Random Glucose Calcium Phosphorus Magnesium Total Bilirubin AST ALT Alkaline Phosphatase Total Protein Albumin Globulin Albumin/Globulin Ratio Procalcitonin 2.81 H Urine Color Urine Clarity Urine pH Ur Specific [place] Urine Protein Urine Glucose (UA) Urine Ketones Urine Blood Urine Nitrate Urine Bilirubin Urine Urobilinogen Ur Leukocyte Esterase Urine WBC (Auto) Urine RBC (Auto) Ur Squamous Epith Cells Urine Bacteria Vancomycin Trough Blood Type Antibody Screen 08/21/18 08/21/18 08/21/18 06:19 06:19 06:19 WBC 6.4 RBC 3.08 L Hgb 8.3 L Hct 24.8 L MCV 80.6 L MCH 27.1 MCHC 33.6 RDW 17.7 H Plt Count 317 MPV 9.2 Neut % (Auto) 69.3 Lymph % (Auto) 22.9 [place] % (Auto) 6.6 Eos % (Auto) 0.6 Baso % (Auto) 0.6 Neut # (Auto) 4.4 Lymph # (Auto) 1.5 [place] # (Auto) 0.4 Eos # (Auto) 0.0 Baso # (Auto) 0.0 PT Cancelled INR Cancelled APTT Cancelled Sodium 142 Potassium 3.3 L Chloride 105 Carbon Dioxide 25 Anion Gap 14 BUN 64 H Creatinine 2.3 H Est GFR ( Amer) 28 Est GFR (Non-Af Amer) 23 Random Glucose 93 Calcium 8.3 L Phosphorus 5.0 H Magnesium 1.7 Total Bilirubin 0.6 AST 62 H ALT 39 Alkaline Phosphatase 144 H Total Protein 6.6 Albumin 3.1 L Globulin 3.6 Albumin/Globulin Ratio 0.9 L Procalcitonin Urine Color Urine Clarity Urine pH Ur Specific [place] Urine Protein Urine Glucose (UA) Urine Ketones Urine Blood Urine Nitrate Urine Bilirubin Urine Urobilinogen Ur Leukocyte Esterase Urine WBC (Auto) Urine RBC (Auto) Ur Squamous Epith Cells Urine Bacteria Vancomycin Trough Blood Type Antibody Screen 08/21/18 08/21/18 08/21/18 07:41 11:56 11:56 WBC RBC Hgb Hct MCV MCH MCHC RDW Plt Count MPV Neut % (Auto) Lymph % (Auto) [place] % (Auto) Eos % (Auto) Baso % (Auto) Neut # (Auto) Lymph # (Auto) [place] # (Auto) Eos # (Auto) Baso # (Auto) PT 22.0 H D INR 2.0 D APTT 111 H* D Sodium Potassium Chloride Carbon Dioxide Anion Gap BUN Creatinine Est GFR ( Amer) Est GFR (Non-Af Amer) Random Glucose Calcium Phosphorus Magnesium Total Bilirubin AST ALT Alkaline Phosphatase Total Protein Albumin Globulin Albumin/Globulin Ratio Procalcitonin Urine Color Urine Clarity Urine pH Ur Specific [place] Urine Protein Urine Glucose (UA) Urine Ketones Urine Blood Urine Nitrate Urine Bilirubin Urine Urobilinogen Ur Leukocyte Esterase Urine WBC (Auto) Urine RBC (Auto) Ur Squamous Epith Cells Urine Bacteria Vancomycin Trough < 5.0 L Blood Type A POSITIVE Antibody Screen Negative 08/21/18 08/21/18 15:30 15:30 WBC RBC Hgb Hct MCV MCH MCHC RDW Plt Count MPV Neut % (Auto) Lymph % (Auto) [place] % (Auto) Eos % (Auto) Baso % (Auto) Neut # (Auto) Lymph # (Auto) [place] # (Auto) Eos # (Auto) Baso # (Auto) PT INR APTT 97 H D Sodium Potassium Chloride Carbon Dioxide Anion Gap BUN Creatinine Est GFR ( Amer) Est GFR (Non-Af Amer) Random Glucose Calcium Phosphorus Magnesium Total Bilirubin AST ALT Alkaline Phosphatase Total Protein Albumin Globulin Albumin/Globulin Ratio Procalcitonin Urine Color Straw Urine Clarity Clear Urine pH 6.0 Ur Specific [place] 1.006 Urine Protein Negative Urine Glucose (UA) Normal Urine Ketones Negative Urine Blood 1+ H Urine Nitrate Negative Urine Bilirubin Negative Urine Urobilinogen Normal Ur Leukocyte Esterase Neg Urine WBC (Auto) 3 Urine RBC (Auto) 3 Ur Squamous Epith Cells < 1 Urine Bacteria Mod H Vancomycin Trough Blood Type Antibody Screen Critical Care Progress Note - Nutrition Nutrition: Nutrition Category Date Time Status Heart Healthy Diet [DIET] Diets 08/17/18 Dinner Active Assessment/Plan - Assessment and Plan (Free Text) Plan: Patient seen and examined at bedside. Patient has no specific complaints -not on pressors -tolerating NC , saturaing well -eating well -pt/ot -HD as per renal -remove all catheters if not indicated -Patient remains hemodynamically stable -awaiting renal biopsy as requested by nephrology -contineu heparin, off antiplatelets in anticipation of kidney biopsy on friday Above resident documents my clinical management and physical exam - Date & Time Date: 08/21/18 Time: 16:44
[2018-08-21] MEDS: Albuterol-Ipratrop 3 mg / 0.5 (3 ml) UD INH PRN ×3 (13:35→19:57)
--- NOTE | 2018-08-21 15:29 | CP.PCM.PN ---
Subjective - Date & Time of Evaluation Date of Evaluation: 08/21/18 Time of Evaluation: 13:00 - Subjective Subjective: Seen and examined by me,patient is sitting on the chair,Feeling better today less sob,saturating well off oxygen fever 102 F this morning Objective - Vital Signs/Intake and Output Vital Signs (last 24 hours): Temp Pulse Resp BP Pulse Ox 102 F H 106 H 24 109/74 96 08/21/18 08:29 08/21/18 13:36 08/21/18 10:25 08/21/18 10:25 08/21/18 10:25 Intake and Output: 08/21/18 08/21/18 06:59 18:59 Intake Total 346 644.6 Output Total 800 781 Balance -454 -136.4 - Medications Medications: Current Medications Acetaminophen (Tylenol 325mg Tab) 650 mg PO Q6 PRN PRN Reason: Fever >100.4 F or pain Last Admin: 08/21/18 08:29 Dose: 650 mg Albuterol/Ipratropium (Duoneb 3 Mg/0.5 Mg (3 Ml) Ud) 3 ml INH RQ4 PRN PRN Reason: Shortness of Breath Last Admin: 08/21/18 13:35 Dose: 3 ml Aspirin (Aspirin Chewable) 81 mg PO DAILY [facility] Last Admin: 08/20/18 09:54 Dose: Not Given Benzocaine/Menthol (Cepacol Sore Throat) 1 naheed MT Q4 PRN PRN Reason: Sore Throat Last Admin: 08/19/18 19:31 Dose: 1 naheed Famotidine (Pepcid) 20 mg PO DAILY [facility] Last Admin: 08/21/18 10:18 Dose: 20 mg Fluconazole (Diflucan) 100 mg PO DAILY [facility] Last Admin: 08/21/18 10:51 Dose: 100 mg Furosemide (Lasix) 40 mg IVP Q12 [facility] Last Admin: 08/21/18 10:25 Dose: 40 mg Guaifenesin (Robitussin) 100 mg PO Q4H PRN PRN Reason: Cough Last Admin: 08/18/18 07:13 Dose: 100 mg Heparin Sodium/Sodium Chloride (Heparin 84255 Units/250ml 1/2 Normal Saline) 25,000 units in 250 mls @ 13.032 mls/hr IV .[id number] PRN; Protocol PRN Reason: PROTOCOL Last Titration: 08/21/18 09:45 Dose: 15 units/kg/hr, 10.86 mls/hr Vancomycin HCl 1 gm/ Sodium (Chloride) 250 mls @ 166.7 mls/hr IVPB STAT STA; Protocol Stop: 08/21/18 16:01 Cefepime HCl (Maxipime Iv 1 Gm Premix) 1 gm in 50 mls @ 100 mls/hr IVPB Q24H KACY; Protocol Lidocaine HCl (Lidocaine 2% Viscous) 5 ml PO Q3H PRN PRN Reason: Other Last Admin: 08/21/18 10:18 Dose: 5 ml Metolazone (Zaroxolyn) 2.5 mg PO DAILY KACY Metoprolol Succinate (Toprol Xl) 50 mg PO DAILY [facility] Last Admin: 08/21/18 10:17 Dose: 50 mg Nitroglycerin (Nitro-Bid 2% Oint) 1 ea TOP Q6H KACY Last Admin: 08/21/18 12:22 Dose: Not Given Rosuvastatin Calcium (Crestor) 10 mg PO HS KACY Last Admin: 08/20/18 22:00 Dose: 10 mg Saccharomyces Boulardii (Florastor) 250 mg PO BID KACY Last Admin: 08/21/18 10:51 Dose: 250 mg Sodium Chloride ([place] Baby Saline 30 Ml) 0 ml MICHAEL TID KACY Last Admin: 08/21/18 10:21 Dose: 1 spr Trolamine Salicylate (Aspercreme) 1 gm TOP Q6H PRN PRN Reason: stiff neck Last Admin: 08/20/18 09:31 Dose: 1 gm - Labs Labs: 08/21/18 06:19 08/21/18 06:19 PT 22.0 SECONDS (9.7-12.2) H D 08/21/18 07:41 INR 2.0 D 08/21/18 07:41 APTT 111 SECONDS (21-34) H* D 08/21/18 07:41 - Constitutional Appears: Non-toxic, No Acute Distress - Head Exam Head Exam: NORMAL INSPECTION - Eye Exam Eye Exam: Normal appearance, PERRL Pupil Exam: NORMAL ACCOMODATION - ENT Exam ENT Exam: Mucous Membranes Moist - Neck Exam Neck Exam: Full ROM, Normal Inspection - Respiratory Exam Respiratory Exam: Rales, NORMAL BREATHING PATTERN - Cardiovascular Exam Cardiovascular Exam: REGULAR RHYTHM - GI/Abdominal Exam GI & Abdominal Exam: Soft, Normal Bowel Sounds - Extremities Exam Extremities Exam: Full ROM, Normal Inspection - Back Exam Back Exam: NORMAL INSPECTION - Neurological Exam Neurological Exam: Awake, Oriented x3 - Psychiatric Exam Psychiatric exam: Normal Mood - Skin Skin Exam: Dry Assessment and Plan - Assessment and Plan (Free Text) Plan: 1.Fever Vancomycin 1gram once,do vanco random level in the morning.Start on cefepime Blood culture,urine culture,Remove Dialysis cath and tip for culture 2.Acute renal failure/pulmonary edema Nephro consult Dr. Henson Her creatinine is improving well d/w Dr Henson. Planning for kidney biopsy on Friday. Plavix and aspirin on hold Hold Coumadin . 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 Bilateral PE and DVT CTA chest: extensive b/l lower lobe proximal pulmonary emboli distal on margins of R and L pulmonary arteries, lower lobe of branches and proximal segmental branches b/l. smaller emboli within segmental/subsegmental branches of upper and middle lobes LE duplex: acute thrombosis of L common femoral vein ECHO: EF 50-55%, mild to moderate TR and pulmonary HTN hold Coumadin for kidney biopsy ,follow INR,on heparin drip 5.Pneumonia Chest x ray likely more congestion,no fever Treated with cefepime ID consulted, Dr. Slater - f/u recs 6.Fungal infection/uti on diflucan 7.Intially Atrial Fibrillation with RVR now NSR,on metoprolol has sinus tachy 8.Anxiety - Xanax 0.25mg tonight GI/DVT ppx: pepsid for GI Oh heparin for DVT
[2018-08-21 15:44] LABS: SQUAMOUS EPITHIAL < 1 /hpf (0-5); URINE BACTERIA MOD (<OCC); URINE BILIRUBIN NEGATIVE (NEGATIVE); URINE BLOOD 1+ (NEGATIVE); URINE CLARITY Clear (Clear); URINE COLOR Straw (YELLOW); URINE GLUCOSE (UA) NORMAL (Normal); URINE LEUKOCYTE ESTERASE NEG Leu/uL (Negative); URINE PROTEIN NEGATIVE (NEGATIVE); URINE UROBILINOGEN NORMAL mg/dL (0.2-1.0)
[2018-08-21] MEDS: Cefepime IV 1 gm in Dextrose 1 GM/50 ML BAG IVPB SCH (16:22)
[2018-08-21] MEDS: Benzocaine/Menthol (Cepacol) Lozenge MT PRN (16:24)
[2018-08-21] MEDS: guaiFENesin 100 mg/5 ml Syrup UD PO PRN ×2 (18:11→23:10)
[2018-08-22] MEDS: Nitroglycerin 2% Ointment Foilpak UD TOP SCH ×4 (05:40→19:57)
[2018-08-22 06:10] LABS: BASO # 0.1 K/uL (0.0-0.2); BASO % 0.8 % (0.0-2.0); EOS # 0.3 K/uL (0.0-0.7); EOS % 3.2 % (0.0-4.0); HEMOGLOBIN 8.9 g/dL (11.0-16.0); LYMPH # 2.6 K/uL (1.0-4.3); LYMPH % 32.1 % (20.0-40.0); MEAN CELL VOLUME 82.1 fL (81.0-99.0); MEAN CORPUSCULAR HEMOGLOBIN 27.6 pg (27.0-31.0); MEAN CORPUSCULAR HGB CONC 33.6 g/dL (33.0-37.0); MEAN PLATELET VOLUME 8.8 fL (7.2-11.7); MONO # 0.6 K/uL (0.0-0.8); MONO % 6.8 % (0.0-10.0); NEUT # 4.6 K/uL (1.8-7.0); NEUT % 57.1 % (50.0-75.0); NRBC % 0.2 % (0.0-2.0); PLATELET COUNT 331 K/uL (130-400); RBC 3.22 Mil/uL (3.80-5.20); RED CELL DISTRIBUTION WIDTH 18.3 % (11.5-14.5); WHITE BLOOD COUNT 8.1 K/uL (4.8-10.8)
[2018-08-22 06:30] LABS: ALB/GLOB RATIO 0.8 (1.0-2.1); ALBUMIN 3.2 g/dL (3.5-5.0); CALCIUM 8.6 mg/dl (8.6-10.4)
--- NOTE | 2018-08-22 08:57 | CP.PCM.PN ---
Subjective - Date & Time of Evaluation Date of Evaluation: 08/22/18 Time of Evaluation: 08:57 - Subjective Subjective: Patient is complaining of tiredness. Sleep disturbance at night . Mild sob . denies chest pain,passing urine well out put 2210ml/24hrs creatinine is coming down ,today's creatinin 2.0 patient has low grade fever 99 this morning. Temp max yesterday 102f, s/p dialysis cath was removed yesterday saturating 99% in room air d/w daughter at bedside Objective - Vital Signs/Intake and Output Vital Signs (last 24 hours): Temp Pulse Resp BP Pulse Ox 99.2 F 110 H 27 H 100/64 97 08/22/18 04:00 08/22/18 07:00 08/22/18 07:00 08/22/18 07:00 08/22/18 07:00 Intake and Output: 08/22/18 08/22/18 06:59 18:59 Intake Total 352.8 9.4 Output Total 750 Balance -397.2 9.4 - Medications Medications: Current Medications Acetaminophen (Tylenol 325mg Tab) 650 mg PO Q6 PRN PRN Reason: Fever >100.4 F or pain Last Admin: 08/21/18 23:00 Dose: 650 mg Albuterol/Ipratropium (Duoneb 3 Mg/0.5 Mg (3 Ml) Ud) 3 ml INH RQ4 PRN PRN Reason: Shortness of Breath Last Admin: 08/21/18 19:57 Dose: 3 ml Aspirin (Aspirin Chewable) 81 mg PO DAILY [facility] Last Admin: 08/20/18 09:54 Dose: Not Given Benzocaine/Menthol (Cepacol Sore Throat) 1 naheed MT Q4 PRN PRN Reason: Sore Throat Last Admin: 08/21/18 16:24 Dose: 1 naheed Famotidine (Pepcid) 20 mg PO DAILY [facility] Last Admin: 08/21/18 10:18 Dose: 20 mg Fluconazole (Diflucan) 100 mg PO DAILY [facility] Last Admin: 08/21/18 10:51 Dose: 100 mg Furosemide (Lasix) 40 mg IVP DAILY [facility] Guaifenesin (Robitussin) 100 mg PO Q4H PRN PRN Reason: Cough Last Admin: 08/21/18 23:10 Dose: 100 mg Heparin Sodium/Sodium Chloride (Heparin 27501 Units/250ml 1/2 Normal Saline) 25,000 units in 250 mls @ 13.032 mls/hr IV .[id number] PRN; Protocol PRN Reason: PROTOCOL Last Titration: 08/21/18 18:31 Dose: 13 units/kg/hr, 9.412 mls/hr Cefepime HCl (Maxipime Iv 1 Gm Premix) 1 gm in 50 mls @ 100 mls/hr IVPB Q24H KACY; Protocol Last Admin: 08/21/18 16:22 Dose: 100 mls/hr Lidocaine HCl (Lidocaine 2% Viscous) 5 ml PO Q3H PRN PRN Reason: Other Last Admin: 08/21/18 10:18 Dose: 5 ml Metolazone (Zaroxolyn) 2.5 mg PO DAILY KACY Metoprolol Tartrate (Lopressor) 25 mg PO BID KACY Nitroglycerin (Nitro-Bid 2% Oint) 1 ea TOP Q6H KACY Last Admin: 08/22/18 08:30 Dose: 1 ea Rosuvastatin Calcium (Crestor) 10 mg PO HS KACY Last Admin: 08/21/18 23:00 Dose: 10 mg Saccharomyces Boulardii (Florastor) 250 mg PO BID KACY Last Admin: 08/21/18 18:09 Dose: 250 mg Sodium Chloride ([place] Baby Saline 30 Ml) 0 ml MICHAEL TID KACY Last Admin: 08/21/18 18:01 Dose: 1 spr Trolamine Salicylate (Aspercreme) 1 gm TOP Q6H PRN PRN Reason: stiff neck Last Admin: 08/20/18 09:31 Dose: 1 gm - Labs Labs: 08/22/18 06:01 08/22/18 06:03 PT 22.0 SECONDS (9.7-12.2) H D 08/21/18 07:41 INR 2.0 D 08/21/18 07:41 APTT 71 SECONDS (21-34) H D 08/22/18 06:01 - Constitutional Appears: In Acute Distress, Chronically Ill - Eye Exam Eye Exam: Normal appearance - ENT Exam ENT Exam: Mucous Membranes Moist - Neck Exam Neck Exam: Full ROM. absent: Normal Inspection (scars) - Respiratory Exam Respiratory Exam: Rales. absent: NORMAL BREATHING PATTERN (mild sob) - Cardiovascular Exam Cardiovascular Exam: Tachycardia, REGULAR RHYTHM - GI/Abdominal Exam GI & Abdominal Exam: Soft, Normal Bowel Sounds - Extremities Exam Extremities Exam: Full ROM - Back Exam Back Exam: NORMAL INSPECTION - Neurological Exam Neurological Exam: Oriented x3 - Psychiatric Exam Psychiatric exam: Normal Affect - Skin Skin Exam: Intact Assessment and Plan - Assessment and Plan (Free Text) Plan: 1.Fever,r/o bacteremia Patient had vancomycin yesterday. Thsi morning vanco random level is 10.8 give Vancomycin 1gram once today,do vanco random level in the morning.continue cefepime follow Blood culture,urine culture Dialysis cath removed yesterday Continue duflucan D/W Dr Slater 2.Acute renal failure likey due to ATN Nephro consult Dr. 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 Bilateral PE and DVT CTA chest: extensive b/l lower lobe proximal pulmonary emboli distal on margins of R and L pulmonary arteries, lower lobe of branches and proximal segmental branches b/l. smaller emboli within segmental/subsegmental branches of upper and middle lobes LE duplex: acute thrombosis of L common femoral vein ECHO: EF 50-55%, mild to moderate TR and pulmonary HTN resume Coumadin 2my tonight,follow INR,on heparin drip 5.Pneumonia CT chest 08/20 consistent with pneumonia clinically improving fever spikes could be due to cath related infection On cefepime ID consulted, Dr. Slater 6.Fungal infection/uti on diflucan follow yesterday's urine c/s 7.Intially Atrial Fibrillation with RVR now NSR,on metoprolol has sinus tachy 8.Anxiety - Xanax PRN GI/DVT ppx: pepsid for GI Oh heparin for DVT
[2018-08-22] MEDS: Saccharomyces Boulardi 250 mg Cap PO SCH ×2 (09:40→17:34)
[2018-08-22 09:48] LABS: BASOPHIL 1 % (0-2); EOSINOPHIL 3 % (0-4); MONOCYTE 4 % (0-10); MYELOCYTE 1 % (0-0); NEUTROPHIL 52 % (50-75); REACTIVE LYMPHOCYTES 2 % (0-0); TOTAL CELLS COUNTED 100
[2018-08-22 09:49] LABS: ANISOCYTOSIS SLIGHT; BANDS 3 % (0-2); LYMPHOCYTE 33 % (20-40); METAMYELOCYTE 1 % (0-0); PLATELET ESTIMATE NORMAL (NORMAL); POIKILOCYTOSIS SLIGHT
[2018-08-22 09:50] LABS: BURR CELLS SLIGHT; MICROCYTOSIS SLIGHT; OVALOCYTES SLIGHT; POLYCHROMIC SLIGHT; SCHISTOCYTES SLIGHT; TEARDROP CELLS SLIGHT
[2018-08-22 09:51] LABS: LARGE PLATELETS PRESENT; SPHEROCYTES SLIGHT
[2018-08-22] MEDS ORDERED: Vancomycin 1 gm/NS 200 ml 1 GM/200 ML BAG IVPB ONE (10:00)
[2018-08-22] MEDS: Sodium Chloride Nasal 0.65% Soln (30ml) NAS SCH ×3 (10:18→17:38)
--- NOTE | 2018-08-22 10:41 | CP.PCM.PN ---
Subjective - Date & Time of Evaluation Date of Evaluation: 08/22/18 Time of Evaluation: 10:55 - Subjective Subjective: Patient has no specific complatins Objective - Vital Signs/Intake and Output Vital Signs (last 24 hours): Temp Pulse Resp BP Pulse Ox 98.8 F 109 H 31 H 111/72 98 08/22/18 08:00 08/22/18 09:59 08/22/18 09:59 08/22/18 10:00 08/22/18 09:59 Intake and Output: 08/22/18 08/22/18 06:59 18:59 Intake Total 352.8 237.6 Output Total 750 0 Balance -397.2 237.6 - Medications Medications: Current Medications Acetaminophen (Tylenol 325mg Tab) 650 mg PO Q6 PRN PRN Reason: Fever >100.4 F or pain Last Admin: 08/21/18 23:00 Dose: 650 mg Albuterol/Ipratropium (Duoneb 3 Mg/0.5 Mg (3 Ml) Ud) 3 ml INH RQ4 PRN PRN Reason: Shortness of Breath Last Admin: 08/21/18 19:57 Dose: 3 ml Aspirin (Aspirin Chewable) 81 mg PO DAILY [facility] Last Admin: 08/22/18 09:40 Dose: 81 mg Benzocaine/Menthol (Cepacol Sore Throat) 1 naheed MT Q4 PRN PRN Reason: Sore Throat Last Admin: 08/21/18 16:24 Dose: 1 naheed Clopidogrel Bisulfate (Plavix) 75 mg PO DAILY [facility] Last Admin: 08/22/18 09:43 Dose: 75 mg Famotidine (Pepcid) 20 mg PO DAILY [facility] Last Admin: 08/22/18 09:41 Dose: 20 mg Fluconazole (Diflucan) 100 mg PO DAILY [facility] Last Admin: 08/22/18 09:40 Dose: 100 mg Furosemide (Lasix) 40 mg IVP DAILY [facility] Last Admin: 08/22/18 09:41 Dose: 40 mg Guaifenesin (Robitussin) 100 mg PO Q4H PRN PRN Reason: Cough Last Admin: 08/21/18 23:10 Dose: 100 mg Heparin Sodium/Sodium Chloride (Heparin 32540 Units/250ml 1/2 Normal Saline) 25,000 units in 250 mls @ 13.032 mls/hr IV .[id number] PRN; Protocol PRN Reason: PROTOCOL Last Titration: 08/21/18 18:31 Dose: 13 units/kg/hr, 9.412 mls/hr Cefepime HCl (Maxipime Iv 1 Gm Premix) 1 gm in 50 mls @ 100 mls/hr IVPB Q24H KACY; Protocol Last Admin: 08/21/18 16:22 Dose: 100 mls/hr Vancomycin/Sodium Chloride (Vancomycin 1 Gm/Ns 200 Ml) 1 gm in 200 mls @ 133.333 mls/hr IVPB ONCE ONE; Protocol Stop: 08/22/18 11:29 Last Admin: 08/22/18 10:16 Dose: 133.333 mls/hr Lidocaine HCl (Lidocaine 2% Viscous) 5 ml PO Q3H PRN PRN Reason: Other Last Admin: 08/21/18 10:18 Dose: 5 ml Metoprolol Tartrate (Lopressor) 25 mg PO BID KACY Last Admin: 08/22/18 09:41 Dose: 25 mg Nitroglycerin (Nitro-Bid 2% Oint) 1 ea TOP Q6H KACY Last Admin: 08/22/18 08:30 Dose: 1 ea Rosuvastatin Calcium (Crestor) 10 mg PO HS KACY Last Admin: 08/21/18 23:00 Dose: 10 mg Saccharomyces Boulardii (Florastor) 250 mg PO BID KACY Last Admin: 08/22/18 09:40 Dose: 250 mg Sodium Chloride ([place] Baby Saline 30 Ml) 0 ml MICHAEL TID KACY Last Admin: 08/22/18 10:18 Dose: 1 spr - Labs Labs: 08/22/18 06:01 08/22/18 06:03 PT 22.0 SECONDS (9.7-12.2) H D 08/21/18 07:41 INR 2.0 D 08/21/18 07:41 APTT 71 SECONDS (21-34) H D 08/22/18 06:01 - Constitutional Appears: Well, Non-toxic - Eye Exam Eye Exam: EOMI - Respiratory Exam Respiratory Exam: Rales, NORMAL BREATHING PATTERN. absent: Rhonchi, Wheezes, Respiratory Distress - Cardiovascular Exam Cardiovascular Exam: Tachycardia, Irregular Rhythm, +S1, +S2 - GI/Abdominal Exam GI & Abdominal Exam: Normal Bowel Sounds - Extremities Exam Extremities Exam: Normal Inspection - Neurological Exam Neurological Exam: Alert, Awake, Oriented x3 Assessment and Plan - Assessment and Plan (Free Text) Assessment: Patient is a 48 yo female who was previously admitted to the ICU twice for b/l PE, LLE DVT, RCA dissection, NSTEMI with cardiac arrest, and renal failure. SURGICAL ASST was called for respiratory distress. Patient required BiPap and emergent HD, and she was transferred to the ICU. Breathing has improved. BUN/Cr is not improving- will likely need renal Bx. Plan: Neuro: - No acute issues - A&O x4 - Continue to monitor CV: Afib with RVR: lopressor push and oral 25 q12hrs - continue ASA 81 mg PO, plus Plavix 75 mg PO daily as per primary team no renal biopsy on friday - restart Warfarin 2mg PO QHS RCA Dissection - Cardiac cath: EF 45-50%, RCA dissection - Troponin trending down - Crestor 10 mg PO QHS - Cardiology consulted (Mejia)- medical management Pulm: Pulmonary congestion - likely 2' to fluid overload - CT chest 08/20: pulm edema w/ kurley b lines - Maintain spO2>92% - Off BiPap- saturating well on RA (>96%) - Incentive spirometry - Duoneb Q4H PRN - Robitussin 100 mg PO Q4H PRN GI: - FOBT positive - Salmonella equivalent - C. Diff negative - Diarrhea resolved - Heart healthy diet - Florastor 250 mg PO BID -antacid Renal: ESRD- r/o Possible Pulmonary Renal Syndrome - Elevated BUN/Cr- stable - Fluid overload - Emergency HD 08/18 - Strict I's & O's: traget fluid balance neg 1L - GBM Ab pending - Lasix 40 mg IV Q12H - Nephrology consulted (Natividad) Endo: - Maintain euglycemia Heme: Pulmonary Embolus - Lupus w/u negative - H&H stable, continue to monitor - Rheum consulted (Tamanna) - Heme/onc consulted (Pedro) ID: Fever - f/u blood urine sputum cultures - Tylenol 650 mg PO Q6H PRN - HIV, hepatitis negative - WBC much improved from earlier in admission - Fluconazole 100 mg IV daily - IV Vanc and Cefepime - Remove TLC in right IJ: likely source - ID consulted (Nohemy) Ppx: VTE: therapeutic warfarin GI: Pepcid 20 mg PO daily IVF: not indicated Prognosis guarded. Patient remains hemodynamically stable
[2018-08-22] MEDS: Heparin25000 units/250ml 1/2NS 25,000 UNITS/250 ML BAG IV PRN (13:42)
[2018-08-22] MEDS: Cefepime IV 1 gm in Dextrose 1 GM/50 ML BAG IVPB SCH (16:33)
[2018-08-22] MEDS: Benzocaine/Menthol (Cepacol) Lozenge MT PRN (17:41)
[2018-08-22] MEDS: guaiFENesin 100 mg/5 ml Syrup UD PO PRN (19:57)
--- NOTE | 2018-08-22 20:08 | CP.PCM.PN ---
Subjective - Date & Time of Evaluation Date of Evaluation: 08/22/18 Time of Evaluation: 18:00 - Subjective Subjective: No complaints. Objective - Vital Signs/Intake and Output Vital Signs (last 24 hours): Temp Pulse Resp BP Pulse Ox 97.7 F 93 H 21 112/69 98 08/22/18 16:00 08/22/18 19:43 08/22/18 19:43 08/22/18 19:43 08/22/18 19:43 Intake and Output: 08/22/18 08/23/18 18:59 06:59 Intake Total 1206.8 Output Total 800 Balance 406.8 - Medications Medications: Current Medications Acetaminophen (Tylenol 325mg Tab) 650 mg PO Q6 PRN PRN Reason: Fever >100.4 F or pain Last Admin: 08/22/18 19:55 Dose: 650 mg Albuterol/Ipratropium (Duoneb 3 Mg/0.5 Mg (3 Ml) Ud) 3 ml INH RQ4 PRN PRN Reason: Shortness of Breath Last Admin: 08/21/18 19:57 Dose: 3 ml Aspirin (Aspirin Chewable) 81 mg PO DAILY [facility] Last Admin: 08/22/18 09:40 Dose: 81 mg Benzocaine/Menthol (Cepacol Sore Throat) 1 naheed MT Q4 PRN PRN Reason: Sore Throat Last Admin: 08/22/18 17:41 Dose: 1 naheed Clopidogrel Bisulfate (Plavix) 75 mg PO DAILY [facility] Last Admin: 08/22/18 09:43 Dose: 75 mg Famotidine (Pepcid) 20 mg PO DAILY [facility] Last Admin: 08/22/18 09:41 Dose: 20 mg Fluconazole (Diflucan) 100 mg PO DAILY [facility] Last Admin: 08/22/18 09:40 Dose: 100 mg Furosemide (Lasix) 40 mg IVP DAILY [facility] Last Admin: 08/22/18 09:41 Dose: 40 mg Guaifenesin (Robitussin) 100 mg PO Q4H PRN PRN Reason: Cough Last Admin: 08/22/18 19:57 Dose: 100 mg Heparin Sodium/Sodium Chloride (Heparin 69660 Units/250ml 1/2 Normal Saline) 25,000 units in 250 mls @ 13.032 mls/hr IV .[id number] PRN; Protocol PRN Reason: PROTOCOL Last Admin: 08/22/18 13:42 Dose: 13 units/kg/hr, 9.412 mls/hr Cefepime HCl (Maxipime Iv 1 Gm Premix) 1 gm in 50 mls @ 100 mls/hr IVPB Q24H [facility]; Protocol Last Admin: 08/22/18 16:33 Dose: 100 mls/hr Metoprolol Tartrate (Lopressor) 50 mg PO BID [facility] Last Admin: 08/22/18 17:37 Dose: 50 mg Nitroglycerin (Nitro-Bid 2% Oint) 1 ea TOP Q6H [facility] Last Admin: 08/22/18 19:57 Dose: 1 ea Rosuvastatin Calcium (Crestor) 10 mg PO HS [facility] Last Admin: 08/21/18 23:00 Dose: 10 mg Saccharomyces Boulardii (Florastor) 250 mg PO BID [facility] Last Admin: 08/22/18 17:34 Dose: 250 mg Sodium Chloride ([place] Baby Saline 30 Ml) 0 ml MICHAEL TID [facility] Last Admin: 08/22/18 17:38 Dose: 1 spr - Labs Labs: 08/22/18 06:01 08/22/18 06:03 PT 22.0 SECONDS (9.7-12.2) H D 08/21/18 07:41 INR 2.0 D 08/21/18 07:41 APTT 71 SECONDS (21-34) H D 08/22/18 06:01 - Head Exam Head Exam: ATRAUMATIC - Eye Exam Eye Exam: Normal appearance - ENT Exam ENT Exam: Mucous Membranes Dry - Respiratory Exam Respiratory Exam: Decreased Breath Sounds - Cardiovascular Exam Cardiovascular Exam: +S1, +S2 - GI/Abdominal Exam GI & Abdominal Exam: Normal Bowel Sounds Assessment and Plan (1) Pulmonary embolism Assessment & Plan: on therapeutic anticoagulation likely provoked from immobility and OCPs Status: Acute (2) DVT (deep venous thrombosis) Assessment & Plan: likely provoked from immobility and OCPs on anticoagulation Status: Acute
--- NOTE | 2018-08-22 23:49 | CP.PCM.PN ---
Subjective - Date & Time of Evaluation Date of Evaluation: 08/22/18 Time of Evaluation: 15:00 - Subjective Subjective: Reports feeling well; breathing much improved; urinating well; Objective - Vital Signs/Intake and Output Vital Signs (last 24 hours): Temp Pulse Resp BP Pulse Ox 98.2 F 94 H 24 112/69 97 08/22/18 20:00 08/22/18 22:00 08/22/18 22:00 08/22/18 20:00 08/22/18 22:00 Intake and Output: 08/22/18 08/23/18 18:59 06:59 Intake Total 1216.2 247.0 Output Total 800 400 Balance 416.2 -153.0 - Medications Medications: Current Medications Acetaminophen (Tylenol 325mg Tab) 650 mg PO Q6 PRN PRN Reason: Fever >100.4 F or pain Last Admin: 08/22/18 19:55 Dose: 650 mg Albuterol/Ipratropium (Duoneb 3 Mg/0.5 Mg (3 Ml) Ud) 3 ml INH RQ4 PRN PRN Reason: Shortness of Breath Last Admin: 08/21/18 19:57 Dose: 3 ml Aspirin (Aspirin Chewable) 81 mg PO DAILY [facility] Last Admin: 08/22/18 09:40 Dose: 81 mg Benzocaine/Menthol (Cepacol Sore Throat) 1 naheed MT Q4 PRN PRN Reason: Sore Throat Last Admin: 08/22/18 17:41 Dose: 1 naheed Clopidogrel Bisulfate (Plavix) 75 mg PO DAILY [facility] Last Admin: 08/22/18 09:43 Dose: 75 mg Famotidine (Pepcid) 20 mg PO DAILY [facility] Last Admin: 08/22/18 09:41 Dose: 20 mg Fluconazole (Diflucan) 100 mg PO DAILY [facility] Last Admin: 08/22/18 09:40 Dose: 100 mg Furosemide (Lasix) 40 mg IVP DAILY [facility] Last Admin: 08/22/18 09:41 Dose: 40 mg Guaifenesin (Robitussin) 100 mg PO Q4H PRN PRN Reason: Cough Last Admin: 08/22/18 19:57 Dose: 100 mg Heparin Sodium/Sodium Chloride (Heparin 45671 Units/250ml 1/2 Normal Saline) 25,000 units in 250 mls @ 13.032 mls/hr IV .[id number] PRN; Protocol PRN Reason: PROTOCOL Last Admin: 08/22/18 13:42 Dose: 13 units/kg/hr, 9.412 mls/hr Cefepime HCl (Maxipime Iv 1 Gm Premix) 1 gm in 50 mls @ 100 mls/hr IVPB Q24H [facility]; Protocol Last Admin: 08/22/18 16:33 Dose: 100 mls/hr Metoprolol Tartrate (Lopressor) 50 mg PO BID [facility] Last Admin: 08/22/18 17:37 Dose: 50 mg Nitroglycerin (Nitro-Bid 2% Oint) 1 ea TOP Q6H [facility] Last Admin: 08/22/18 19:57 Dose: 1 ea Rosuvastatin Calcium (Crestor) 10 mg PO HS [facility] Last Admin: 08/22/18 22:26 Dose: 10 mg Saccharomyces Boulardii (Florastor) 250 mg PO BID [facility] Last Admin: 08/22/18 17:34 Dose: 250 mg Sodium Chloride ([place] Baby Saline 30 Ml) 0 ml MICHAEL TID [facility] Last Admin: 08/22/18 17:38 Dose: 1 spr - Labs Labs: 08/22/18 06:01 08/22/18 06:03 PT 22.0 SECONDS (9.7-12.2) H D 08/21/18 07:41 INR 2.0 D 08/21/18 07:41 APTT 71 SECONDS (21-34) H D 08/22/18 06:01 - Constitutional Appears: Non-toxic, No Acute Distress - Eye Exam Eye Exam: Normal appearance - ENT Exam ENT Exam: Mucous Membranes Moist - Respiratory Exam Respiratory Exam: absent: Respiratory Distress Additional comments: minimal rhonchi - Cardiovascular Exam Cardiovascular Exam: RRR, +S1, +S2. absent: Gallop, Murmur - GI/Abdominal Exam GI & Abdominal Exam: Soft. absent: Distended, Tenderness - Extremities Exam Additional comments: no leg edema; - Neurological Exam Neurological Exam: Alert, Awake - Psychiatric Exam Psychiatric exam: Normal Mood. absent: Agitated - Skin Skin Exam: Warm. absent: Cyanosis Assessment and Plan (1) Acute renal failure Assessment & Plan: ATN in the setting of septic shock, resolving; no significant hematuria any more; unlikely to be pulmonary-renal syndrome with renal function improving; will not pursue biopsy at this time; HD catheter removed yesterday after patient spiked fever; stable volume and electrolyte status; no indication that patient will need HD again; -avoid nephrotoxic agents; -keep MAP > 65; -agree with dereasing IV lasix 40 mg to once daily; Status: Acute (2) Sepsis Assessment & Plan: Started on cefepime and vanco; may need to increase cefepime dosing with imp roving renal function; monitor vanco level to avoid toxicity; Status: Acute (3) Acute respiratory failure with hypoxemia Assessment & Plan: Much improved; lasix decreased as above; Status: Acute (4) Hypocalcemia Status: Resolved (5) NSTEMI (non-ST elevated myocardial infarction) Status: Acute (6) Tachycardia Status: Acute (7) Metabolic acidosis Status: Acute
[2018-08-23] MEDS: Nitroglycerin 2% Ointment Foilpak UD TOP SCH ×4 (02:30→21:00)
[2018-08-23 04:48] LABS: BASO # 0.2 K/uL (0.0-0.2); BASO % 1.6 % (0.0-2.0); EOS # 0.6 K/uL (0.0-0.7); EOS % 6.2 % (0.0-4.0); HEMOGLOBIN 8.4 g/dL (11.0-16.0); LYMPH # 3.3 K/uL (1.0-4.3); LYMPH % 33.6 % (20.0-40.0); MEAN CELL VOLUME 85.5 fL (81.0-99.0); MEAN CORPUSCULAR HEMOGLOBIN 28.4 pg (27.0-31.0); MEAN CORPUSCULAR HGB CONC 33.2 g/dL (33.0-37.0); MEAN PLATELET VOLUME 8.8 fL (7.2-11.7); MONO # 0.7 K/uL (0.0-0.8); MONO % 6.8 % (0.0-10.0); NEUT % 51.8 % (50.0-75.0); RBC 2.95 Mil/uL (3.80-5.20); RED CELL DISTRIBUTION WIDTH 18.4 % (11.5-14.5); WHITE BLOOD COUNT 9.7 K/uL (4.8-10.8)
[2018-08-23 05:17] LABS: ALB/GLOB RATIO 0.8 (1.0-2.1); CALCIUM 8.5 mg/dl (8.6-10.4); CK-MB 3.48 ng/mL (0.0-3.38); TROPONIN I 0.12 ng/mL (0.00-0.120)
[2018-08-23 05:19] LABS: INR 1.4; PROTHROMBIN TIME 15.7 SECONDS (9.7-12.2)
--- NOTE | 2018-08-23 05:28 | CP.PCM.PN ---
<Roney Young - Last Filed: 08/23/18 05:25> Subjective - Date & Time of Evaluation Date of Evaluation: 08/23/18 Time of Evaluation: 05:25 - Subjective Subjective: PGY-1 Note Patient complaining of non-radiating chest pain early this morning. EKG, ROMIs, D-dimer ordered. EKG showed T-wave changes unchanged from previous EKGs, prolonged QT. Initial troponin negative. D-dimer pending. Chest pain resolved once I spoke with the patient again concerning EKG findings and provided assurance. Objective - Vital Signs/Intake and Output Vital Signs (last 24 hours): Temp Pulse Resp BP Pulse Ox 98.6 F 100 H 27 H 108/73 97 08/23/18 03:45 08/23/18 03:45 08/23/18 03:45 08/23/18 03:45 08/23/18 03:45 Intake and Output: 08/22/18 08/23/18 18:59 06:59 Intake Total 1216.2 344.0 Output Total 800 400 Balance 416.2 -56.0 - Medications Medications: Current Medications Acetaminophen (Tylenol 325mg Tab) 650 mg PO Q6 PRN PRN Reason: Fever >100.4 F or pain Last Admin: 08/23/18 03:32 Dose: 650 mg Albuterol/Ipratropium (Duoneb 3 Mg/0.5 Mg (3 Ml) Ud) 3 ml INH RQ4 PRN PRN Reason: Shortness of Breath Last Admin: 08/21/18 19:57 Dose: 3 ml Aspirin (Aspirin Chewable) 81 mg PO DAILY [facility] Last Admin: 08/22/18 09:40 Dose: 81 mg Benzocaine/Menthol (Cepacol Sore Throat) 1 naheed MT Q4 PRN PRN Reason: Sore Throat Last Admin: 08/22/18 17:41 Dose: 1 naheed Clopidogrel Bisulfate (Plavix) 75 mg PO DAILY [facility] Last Admin: 08/22/18 09:43 Dose: 75 mg Famotidine (Pepcid) 20 mg PO DAILY [facility] Last Admin: 08/22/18 09:41 Dose: 20 mg Fluconazole (Diflucan) 100 mg PO DAILY [facility] Last Admin: 08/22/18 09:40 Dose: 100 mg Furosemide (Lasix) 40 mg IVP DAILY [facility] Last Admin: 08/22/18 09:41 Dose: 40 mg Guaifenesin (Robitussin) 100 mg PO Q4H PRN PRN Reason: Cough Last Admin: 08/22/18 19:57 Dose: 100 mg Heparin Sodium/Sodium Chloride (Heparin 10909 Units/250ml 1/2 Normal Saline) 25,000 units in 250 mls @ 13.032 mls/hr IV .[id number] PRN; Protocol PRN Reason: PROTOCOL Last Admin: 08/22/18 13:42 Dose: 13 units/kg/hr, 9.412 mls/hr Cefepime HCl (Maxipime Iv 1 Gm Premix) 1 gm in 50 mls @ 100 mls/hr IVPB Q24H [facility]; Protocol Last Admin: 08/22/18 16:33 Dose: 100 mls/hr Metoprolol Tartrate (Lopressor) 50 mg PO BID [facility] Last Admin: 08/22/18 17:37 Dose: 50 mg Nitroglycerin (Nitro-Bid 2% Oint) 1 ea TOP Q6H [facility] Last Admin: 08/23/18 02:30 Dose: 1 ea Rosuvastatin Calcium (Crestor) 10 mg PO HS [facility] Last Admin: 08/22/18 22:26 Dose: 10 mg Saccharomyces Boulardii (Florastor) 250 mg PO BID [facility] Last Admin: 08/22/18 17:34 Dose: 250 mg Sodium Chloride ([place] Baby Saline 30 Ml) 0 ml MICHAEL TID [facility] Last Admin: 08/22/18 17:38 Dose: 1 spr - Labs Labs: 08/23/18 04:34 08/23/18 04:34 PT 15.7 SECONDS (9.7-12.2) H D 08/23/18 04:34 INR 1.4 D 08/23/18 04:34 APTT 26 SECONDS (21-34) D 08/23/18 04:34 <Matthew Najera - Last Filed: 08/29/18 18:25> Objective - Vital Signs/Intake and Output Vital Signs (last 24 hours): Temp Pulse Resp BP Pulse Ox 99.1 F 97 H 20 102/71 98 08/29/18 07:00 08/29/18 12:00 08/29/18 07:00 08/29/18 07:00 08/29/18 07:00 Intake and Output: 08/29/18 08/29/18 06:59 18:59 Intake Total 240 Balance 240 - Labs Labs: 08/29/18 06:51 08/29/18 06:51 PT 30.0 SECONDS (9.7-12.2) H 08/29/18 06:51 INR 2.7 08/29/18 06:51 APTT 83 SECONDS (21-34) H D 08/26/18 05:53 Attending/Attestation - Attestation I have personally seen and examined this patient.: Yes I have fully participated in the care of the patient.: Yes I have reviewed all pertinent clinical information, including history, physical exam and plan: Yes
[2018-08-23] MEDS: Heparin25000 units/250ml 1/2NS 25,000 UNITS/250 ML BAG IV PRN (08:19)
[2018-08-23] MEDS: guaiFENesin 100 mg/5 ml Syrup UD PO PRN ×3 (09:25→18:46)
[2018-08-23] MEDS: Saccharomyces Boulardi 250 mg Cap PO SCH ×2 (09:25→17:26)
[2018-08-23] MEDS: Sodium Chloride Nasal 0.65% Soln (30ml) NAS SCH ×3 (09:31→17:26)
--- NOTE | 2018-08-23 09:33 | CP.PCM.PN ---
Subjective - Date & Time of Evaluation Date of Evaluation: 08/23/18 Time of Evaluation: 09:33 - Subjective Subjective: Patient is sitting without SOB,feeling better,has some chest discomfort last night Creatinine is coming down no fever,saturating good off oxygen blood culture 24hours no growth Objective - Vital Signs/Intake and Output Vital Signs (last 24 hours): Temp Pulse Resp BP Pulse Ox 98 F 111 H 22 119/81 98 08/23/18 08:00 08/23/18 09:00 08/23/18 09:00 08/23/18 09:25 08/23/18 09:00 Intake and Output: 08/23/18 08/23/18 06:59 18:59 Intake Total 362.8 21.4 Output Total 750 Balance -387.2 21.4 - Medications Medications: Current Medications Acetaminophen (Tylenol 325mg Tab) 650 mg PO Q6 PRN PRN Reason: Fever >100.4 F or pain Last Admin: 08/23/18 03:32 Dose: 650 mg Aspirin (Aspirin Chewable) 81 mg PO DAILY [facility] Last Admin: 08/23/18 09:25 Dose: 81 mg Benzocaine/Menthol (Cepacol Sore Throat) 1 naheed MT Q4 PRN PRN Reason: Sore Throat Last Admin: 08/22/18 17:41 Dose: 1 naheed Clopidogrel Bisulfate (Plavix) 75 mg PO DAILY [facility] Last Admin: 08/23/18 09:25 Dose: 75 mg Famotidine (Pepcid) 20 mg PO DAILY [facility] Last Admin: 08/23/18 09:24 Dose: 20 mg Fluconazole (Diflucan) 100 mg PO DAILY [facility] Last Admin: 08/23/18 09:24 Dose: 100 mg Furosemide (Lasix) 40 mg IVP DAILY [facility] Last Admin: 08/23/18 09:25 Dose: 40 mg Guaifenesin (Robitussin) 100 mg PO Q4H PRN PRN Reason: Cough Last Admin: 08/23/18 09:25 Dose: 100 mg Cefepime HCl (Maxipime Iv 1 Gm Premix) 1 gm in 50 mls @ 100 mls/hr IVPB Q24H [facility]; Protocol Last Admin: 08/22/18 16:33 Dose: 100 mls/hr Heparin Sodium/Sodium Chloride (Heparin 70390 Units/250ml 1/2 Normal Saline) 25,000 units in 250 mls @ 12.048 mls/hr IV .[id number] PRN; Protocol PRN Reason: ADJUST RATE PER PROTOCOL Last Titration: 08/23/18 08:19 Dose: 18.31 units/kg/hr, 12.048 mls/hr Metoprolol Tartrate (Lopressor) 50 mg PO BID [facility] Last Admin: 08/23/18 09:25 Dose: 50 mg Nitroglycerin (Nitro-Bid 2% Oint) 1 ea TOP Q6H [facility] Last Admin: 08/23/18 08:46 Dose: 1 ea Rosuvastatin Calcium (Crestor) 10 mg PO HS [facility] Last Admin: 08/22/18 22:26 Dose: 10 mg Saccharomyces Boulardii (Florastor) 250 mg PO BID [facility] Last Admin: 08/23/18 09:25 Dose: 250 mg Sodium Chloride ([place] Baby Saline 30 Ml) 0 ml MICHAEL TID [facility] Last Admin: 08/23/18 09:31 Dose: 2 spr Warfarin Sodium (Coumadin) 3 mg PO 1800 [facility] Stop: 08/23/18 18:01 - Labs Labs: 08/23/18 04:34 08/23/18 04:34 PT 15.7 SECONDS (9.7-12.2) H D 08/23/18 04:34 INR 1.4 D 08/23/18 04:34 APTT 26 SECONDS (21-34) D 08/23/18 04:34 - Constitutional Appears: Non-toxic, Chronically Ill - Eye Exam Eye Exam: Normal appearance Pupil Exam: NORMAL ACCOMODATION - ENT Exam ENT Exam: Mucous Membranes Moist - Neck Exam Neck Exam: Full ROM - Respiratory Exam Respiratory Exam: Rales (improving), NORMAL BREATHING PATTERN - Cardiovascular Exam Cardiovascular Exam: REGULAR RHYTHM - GI/Abdominal Exam GI & Abdominal Exam: Soft, Normal Bowel Sounds - Extremities Exam Extremities Exam: Full ROM, Normal Inspection - Back Exam Back Exam: NORMAL INSPECTION - Neurological Exam Neurological Exam: Awake, Oriented x3 - Psychiatric Exam Psychiatric exam: Normal Mood - Skin Skin Exam: Dry Assessment and Plan - Assessment and Plan (Free Text) Plan: 1.s/p Fever,r/o bacteremia Blood culture without growth for 24hrs Patient had vancomycin yesterday. 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 Bilateral PE and DVT INR is 1.4 Coumadin 2mg last night.coumadin3 mg tonight,follow INR,on heparin drip CTA chest: extensive b/l lower lobe proximal pulmonary emboli distal on margins of R and L pulmonary arteries, lower lobe of branches and proximal segmental branches b/l. smaller emboli within segmental/subsegmental branches of upper and middle lobes LE duplex: acute thrombosis of L common femoral vein ECHO: EF 50-55%, mild to moderate TR and pulmonary HTN 5.Pneumonia CT chest 08/20 consistent with pneumonia clinically improving fever spikes could be due to cath related infection On cefepime ID consulted, Dr. Slater 6.Fungal infection/uti on diflucan follow yesterday's urine c/s 7.Intially Atrial Fibrillation with RVR now NSR,on metoprolol has sinus tachy 8.Anxiety - Xanax PRN GI/DVT ppx: pepsid for GI Oh heparin for DVT
[2018-08-23] MEDS: Cefepime IV 1 gm in Dextrose 1 GM/50 ML BAG IVPB SCH (14:59)
[2018-08-24] MEDS: Nitroglycerin 2% Ointment Foilpak UD TOP SCH ×5 (02:35→21:57)
[2018-08-24 06:04] LABS: BASO # 0.1 K/uL (0.0-0.2); BASO % 0.7 % (0.0-2.0); EOS # 0.5 K/uL (0.0-0.7); EOS % 4.6 % (0.0-4.0); HEMOGLOBIN 9.2 g/dL (11.0-16.0); LYMPH # 4.8 K/uL (1.0-4.3); LYMPH % 46.7 % (20.0-40.0); MEAN CELL VOLUME 81.2 fL (81.0-99.0); MEAN CORPUSCULAR HEMOGLOBIN 27.4 pg (27.0-31.0); MEAN CORPUSCULAR HGB CONC 33.7 g/dL (33.0-37.0); MEAN PLATELET VOLUME 8.9 fL (7.2-11.7); MONO # 0.7 K/uL (0.0-0.8); MONO % 6.7 % (0.0-10.0); NEUT # 4.2 K/uL (1.8-7.0); NEUT % 41.3 % (50.0-75.0); NRBC % 0.1 % (0.0-2.0); RBC 3.36 Mil/uL (3.80-5.20); RED CELL DISTRIBUTION WIDTH 19.2 % (11.5-14.5); WHITE BLOOD COUNT 10.2 K/uL (4.8-10.8)
[2018-08-24 06:09] LABS: INR 1.5
[2018-08-24 06:36] LABS: ALB/GLOB RATIO 0.9 (1.0-2.1); ALBUMIN 3.6 g/dL (3.5-5.0); CALCIUM 9.1 mg/dl (8.6-10.4)
--- NOTE | 2018-08-24 08:04 | CP.PCM.PN ---
Subjective - Date & Time of Evaluation Date of Evaluation: 08/24/18 Time of Evaluation: 09:45 - Subjective Subjective: Linwood Wheeler, PGY-[address] Ba, Cardiology PAtient seen and evaluated at bedside. Patient reports no acute events overn ight. Patient denies chest pain, shortness of breath, leg swelling. Patient notes that she feels her heart race at times. INR 1.5 today. Objective - Vital Signs/Intake and Output Vital Signs (last 24 hours): Temp Pulse Resp BP Pulse Ox 98.1 F 102 H 26 H 104/65 96 08/24/18 04:00 08/24/18 04:00 08/24/18 04:00 08/24/18 04:00 08/24/18 04:00 Intake and Output: 08/24/18 08/24/18 06:59 18:59 Intake Total 477.4 Output Total 750 Balance -272.6 - Medications Medications: Current Medications Acetaminophen (Tylenol 325mg Tab) 650 mg PO Q6 PRN PRN Reason: Fever >100.4 F or pain Last Admin: 08/23/18 03:32 Dose: 650 mg Albuterol/Ipratropium (Duoneb 3 Mg/0.5 Mg (3 Ml) Ud) 3 ml INH RQ6 [facility] Aspirin (Aspirin Chewable) 81 mg PO DAILY [facility] Last Admin: 08/23/18 09:25 Dose: 81 mg Benzocaine/Menthol (Cepacol Sore Throat) 1 naheed MT Q4 PRN PRN Reason: Sore Throat Last Admin: 08/22/18 17:41 Dose: 1 naheed Clopidogrel Bisulfate (Plavix) 75 mg PO DAILY [facility] Last Admin: 08/23/18 09:25 Dose: 75 mg Famotidine (Pepcid) 20 mg PO DAILY [facility] Last Admin: 08/23/18 09:24 Dose: 20 mg Fluconazole (Diflucan) 100 mg PO DAILY [facility] Last Admin: 08/23/18 09:24 Dose: 100 mg Furosemide (Lasix) 40 mg IVP DAILY [facility] Last Admin: 08/23/18 09:25 Dose: 40 mg Guaifenesin (Robitussin) 100 mg PO Q4H PRN PRN Reason: Cough Last Admin: 08/23/18 18:46 Dose: 100 mg Cefepime HCl (Maxipime Iv 1 Gm Premix) 1 gm in 50 mls @ 100 mls/hr IVPB Q24H [facility]; Protocol Last Admin: 08/23/18 14:59 Dose: 100 mls/hr Heparin Sodium/Sodium Chloride (Heparin 23616 Units/250ml 1/2 Normal Saline) 25,000 units in 250 mls @ 12.048 mls/hr IV .[id number] PRN; Protocol PRN Reason: ADJUST RATE PER PROTOCOL Last Titration: 08/23/18 15:48 Dose: 15 units/kg/hr, 9.87 mls/hr Metoprolol Tartrate (Lopressor) 50 mg PO BID [facility] Last Admin: 08/23/18 17:26 Dose: 50 mg Nitroglycerin (Nitro-Bid 2% Oint) 1 ea TOP Q6H [facility] Last Admin: 08/24/18 02:35 Dose: 1 ea Rosuvastatin Calcium (Crestor) 10 mg PO HS [facility] Last Admin: 08/23/18 21:36 Dose: 10 mg Saccharomyces Boulardii (Florastor) 250 mg PO BID [facility] Last Admin: 08/23/18 17:26 Dose: 250 mg Sodium Chloride ([place] Baby Saline 30 Ml) 0 ml MICHAEL TID [facility] Last Admin: 08/23/18 17:26 Dose: 2 spr - Labs Labs: 08/24/18 05:56 08/24/18 05:56 PT 16.0 SECONDS (9.7-12.2) H 08/24/18 05:56 INR 1.5 08/24/18 05:56 APTT 85 SECONDS (21-34) H D 08/24/18 05:56 - Constitutional Appears: Non-toxic, No Acute Distress, Cachectic - Head Exam Head Exam: ATRAUMATIC, NORMOCEPHALIC - Neck Exam Additional comments: ecchymosies noted as before. No new areas noted. - Respiratory Exam Respiratory Exam: Decreased Breath Sounds, Clear to Ausculation Bilateral. absent: Chest Wall Tenderness - Cardiovascular Exam Cardiovascular Exam: Tachycardia, +S1, +S2 - Skin Additional comments: as noted above Assessment and Plan - Assessment and Plan (Free Text) Assessment: Assessment: 48 F with PMHx of anxiety who experienced syncopal episode and found to have bilateral pulmonary embolism, A. fib. Plan: Bilateral Pulmonary Embolisms, CHF, coronary artery dissection -Currently no plan for renal biopsy. Received Heparin yesterday. AM INR 1.5 today. Continue with Warfarin 3 mg tonight and continue to monitor INR -resume dual antiplatelet therapy -cardiac cath on 08/10 showed EF 45-50%, spontaneous coronary dissection of the right coronary and distal posterior left ventricular occlusion 99% stenosis -currently ASA 81mg, plavix 75mg, metoprolol XL 50mg, crestor 10mg -Chest CT shows evidence of pneumonia, possible atelectasis/pulmonary infarct. Small B/L pleural effusions -echo showed LVEF 50-55%, mild to moderate TR and pulmonary hypertension -initial CTA showed diffuse bilateral pulmonary emboli of B/L central and segmental pulmonary arteries, pulmonary venous congestion compatible with CHF vs left basilar atelectasis vs pulmonary infarct - Repeat BNP 51831 elevated, continue IV Lasix Paroxysmal A. fib with RVR -EKG on admission showed afib with RVR at 146bpm, uncertain if new finding - most recent EKG shows sinus tachy at 122, today sinus tachy at 107 Patient seen, case discussed, further recommendations per Dr. Ba. Linwood Wheeler, PGY-1
[2018-08-24] MEDS: Albuterol-Ipratrop 3 mg / 0.5 (3 ml) UD INH SCH ×3 (08:39→20:21)
--- NOTE | 2018-08-24 08:52 | CP.PCM.PN ---
Subjective - Date & Time of Evaluation Date of Evaluation: 08/24/18 Time of Evaluation: 08:00 - Subjective Subjective: Patient was seen and examined by me. Events from last week reviewed. 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 Family member faithfully at bedside. Breathing is reported as ok. Denied chest pain, denied abdominal pain, also de nied fever. Per family member tranlsating the patient is observed to be making a lot of urine. This morning the creatine was 1.5 Objective - Vital Signs/Intake and Output Vital Signs (last 24 hours): Temp Pulse Resp BP Pulse Ox 97.6 F 108 H 23 122/70 99 08/24/18 08:00 08/24/18 08:00 08/24/18 08:00 08/24/18 08:00 08/24/18 08:00 Intake and Output: 08/24/18 08/24/18 06:59 18:59 Intake Total 477.4 29.4 Output Total 750 Balance -272.6 29.4 - Medications Medications: Current Medications Acetaminophen (Tylenol 325mg Tab) 650 mg PO Q6 PRN PRN Reason: Fever >100.4 F or pain Last Admin: 08/23/18 03:32 Dose: 650 mg Albuterol/Ipratropium (Duoneb 3 Mg/0.5 Mg (3 Ml) Ud) 3 ml INH RQ6 [facility] Last Admin: 08/24/18 08:39 Dose: 3 ml Aspirin (Aspirin Chewable) 81 mg PO DAILY [facility] Last Admin: 08/23/18 09:25 Dose: 81 mg Benzocaine/Menthol (Cepacol Sore Throat) 1 naheed MT Q4 PRN PRN Reason: Sore Throat Last Admin: 08/22/18 17:41 Dose: 1 naheed Clopidogrel Bisulfate (Plavix) 75 mg PO DAILY [facility] Last Admin: 08/23/18 09:25 Dose: 75 mg Famotidine (Pepcid) 20 mg PO DAILY [facility] Last Admin: 08/23/18 09:24 Dose: 20 mg Fluconazole (Diflucan) 100 mg PO DAILY [facility] Last Admin: 08/23/18 09:24 Dose: 100 mg Furosemide (Lasix) 40 mg IVP DAILY [facility] Last Admin: 08/23/18 09:25 Dose: 40 mg Guaifenesin (Robitussin) 100 mg PO Q4H PRN PRN Reason: Cough Last Admin: 08/23/18 18:46 Dose: 100 mg Cefepime HCl (Maxipime Iv 1 Gm Premix) 1 gm in 50 mls @ 100 mls/hr IVPB Q24H [facility]; Protocol Last Admin: 08/23/18 14:59 Dose: 100 mls/hr Heparin Sodium/Sodium Chloride (Heparin 59004 Units/250ml 1/2 Normal Saline) 25,000 units in 250 mls @ 12.048 mls/hr IV .[id number] PRN; Protocol PRN Reason: ADJUST RATE PER PROTOCOL Last Titration: 08/23/18 15:48 Dose: 15 units/kg/hr, 9.87 mls/hr Metoprolol Tartrate (Lopressor) 50 mg PO BID [facility] Last Admin: 08/23/18 17:26 Dose: 50 mg Nitroglycerin (Nitro-Bid 2% Oint) 1 ea TOP Q6H [facility] Last Admin: 08/24/18 08:07 Dose: 1 ea Rosuvastatin Calcium (Crestor) 10 mg PO HS [facility] Last Admin: 08/23/18 21:36 Dose: 10 mg Saccharomyces Boulardii (Florastor) 250 mg PO BID [facility] Last Admin: 08/23/18 17:26 Dose: 250 mg Sodium Chloride ([place] Baby Saline 30 Ml) 0 ml MICHAEL TID [facility] Last Admin: 08/23/18 17:26 Dose: 2 spr Warfarin Sodium (Coumadin) 3 mg PO 1800 [facility] Stop: 08/24/18 18:01 - Labs Labs: 08/24/18 05:56 08/24/18 05:56 PT 16.0 SECONDS (9.7-12.2) H 08/24/18 05:56 INR 1.5 08/24/18 05:56 APTT 85 SECONDS (21-34) H D 08/24/18 05:56 - Constitutional Appears: No Acute Distress, Unkempt, Chronically Ill - Head Exam Head Exam: NORMAL INSPECTION Additional comments: echymosis as before, not changed - Eye Exam Additional comments: Echymosis noted - as before. - ENT Exam Additional comments: No longer has any TLC or permacath line - Cardiovascular Exam Cardiovascular Exam: REGULAR RHYTHM - GI/Abdominal Exam GI & Abdominal Exam: Soft, Normal Bowel Sounds - Neurological Exam Neurological Exam: Alert, Awake, Oriented x3 Neuro motor strength exam: Left Upper Extremity: 4, Right Upper Extremity: 4 - Skin Skin Exam: Normal Color, Warm Additional comments: Norma forehead and neck Assessment and Plan - Assessment and Plan (Free Text) Assessment: 1. Fevers, r/o bacteremia 08/24: Has been afebrile past 48 hrs Now no longer has TLC or permacath. Remains on IV Cefepime and Diflucan. Blood cultures negative 48 hrs 2. Acute renal failure likey due to ATN 08/24: Per family urine outputs are good. Creatine 1.5 this morning. No kidney biopsy for time being. 4. Bilateral PE and DVT 08/24: Coumadin 3 tonight. Follow INRs. Currently on a heparin ggt. The Hgb was 9.2 this morning CTA chest: extensive b/l lower lobe proximal pulmonary emboli distal on margins of R and L pulmonary arteries, lower lobe of branches and proximal segmental branches b/l. smaller emboli within segmental/subsegmental branches of upper and middle lobes LE duplex: acute thrombosis of L common femoral vein ECHO: EF 50-55%, mild to moderate TR and pulmonary HTN 5. NSTEMI Currently stable, no chest pain Previous Cath: RCA spontaneous dissection, Distal posterior left ventricular vessel 100% occlusion, EF 50% On plavix ,asprin and crestor and metoprolol 6. Pneumonia CT chest 08/20 consistent with pneumonia clinically improving fever spikes could be due to cath related infection On cefepime ID consulted, Dr. Slater 7. Fungal infection/uti on diflucan follow yesterday's urine c/s 8.Anxiety Xanax PRN GI/DVT ppx: pepsid for GI Oh heparin for DVT
[2018-08-24] MEDS: Saccharomyces Boulardi 250 mg Cap PO SCH ×2 (09:22→17:13)
[2018-08-24] MEDS: Sodium Chloride Nasal 0.65% Soln (30ml) NAS SCH ×3 (09:24→17:14)
[2018-08-24] MEDS: Heparin25000 units/250ml 1/2NS 25,000 UNITS/250 ML BAG IV PRN (09:26)
[2018-08-24] MEDS: Cefepime IV 1 gm in Dextrose 1 GM/50 ML BAG IVPB SCH (16:02)
[2018-08-25] MEDS: guaiFENesin 100 mg/5 ml Syrup UD PO PRN (00:40)
[2018-08-25] MEDS: Albuterol-Ipratrop 3 mg / 0.5 (3 ml) UD INH SCH ×4 (01:34→19:33)
--- NOTE | 2018-08-25 04:39 | CP.PCM.PN ---
Subjective - Date & Time of Evaluation Date of Evaluation: 08/24/18 Time of Evaluation: 13:00 - Subjective Subjective: Patient reports feeling well; no sob; urinating well; Objective - Vital Signs/Intake and Output Vital Signs (last 24 hours): Temp Pulse Resp BP Pulse Ox 98.5 F 88 22 100/57 L 96 08/25/18 00:00 08/25/18 01:00 08/25/18 00:00 08/25/18 00:00 08/25/18 00:00 Intake and Output: 08/24/18 08/25/18 18:59 06:59 Intake Total 1189.4 388.2 Output Total 1400 400 Balance -210.6 -11.8 - Medications Medications: Current Medications Acetaminophen (Tylenol 325mg Tab) 650 mg PO Q6 PRN PRN Reason: Fever >100.4 F or pain Last Admin: 08/23/18 03:32 Dose: 650 mg Albuterol/Ipratropium (Duoneb 3 Mg/0.5 Mg (3 Ml) Ud) 3 ml INH RQ6 [facility] Last Admin: 08/25/18 01:34 Dose: 3 ml Aspirin (Aspirin Chewable) 81 mg PO DAILY [facility] Last Admin: 08/24/18 09:22 Dose: 81 mg Benzocaine/Menthol (Cepacol Sore Throat) 1 naheed MT Q4 PRN PRN Reason: Sore Throat Last Admin: 08/22/18 17:41 Dose: 1 naheed Clopidogrel Bisulfate (Plavix) 75 mg PO DAILY [facility] Last Admin: 08/24/18 09:22 Dose: 75 mg Famotidine (Pepcid) 20 mg PO DAILY [facility] Last Admin: 08/24/18 09:22 Dose: 20 mg Fluconazole (Diflucan) 100 mg PO DAILY [facility] Last Admin: 08/24/18 09:22 Dose: 100 mg Furosemide (Lasix) 40 mg PO DAILY [facility] Guaifenesin (Robitussin) 100 mg PO Q4H PRN PRN Reason: Cough Last Admin: 08/25/18 00:40 Dose: 100 mg Cefepime HCl (Maxipime Iv 1 Gm Premix) 1 gm in 50 mls @ 100 mls/hr IVPB Q24H [facility]; Protocol Last Admin: 08/24/18 16:02 Dose: 100 mls/hr Heparin Sodium/Sodium Chloride (Heparin 01372 Units/250ml 1/2 Normal Saline) 25,000 units in 250 mls @ 12.048 mls/hr IV .[id number] PRN; Protocol PRN Reason: ADJUST RATE PER PROTOCOL Last Admin: 08/24/18 09:26 Dose: 15 units/kg/hr, 9.87 mls/hr Metoprolol Tartrate (Lopressor) 50 mg PO BID [facility] Last Admin: 08/24/18 18:21 Dose: 50 mg Nitroglycerin (Nitro-Bid 2% Oint) 1 ea TOP Q6H [facility] Last Admin: 08/24/18 21:57 Dose: Not Given Rosuvastatin Calcium (Crestor) 10 mg PO HS [facility] Last Admin: 08/24/18 21:56 Dose: 10 mg Saccharomyces Boulardii (Florastor) 250 mg PO BID [facility] Last Admin: 08/24/18 17:13 Dose: 250 mg Sodium Chloride ([place] Baby Saline 30 Ml) 0 ml MICHAEL TID [facility] Last Admin: 08/24/18 17:14 Dose: 2 spr - Labs Labs: 08/24/18 05:56 08/24/18 05:56 PT 16.0 SECONDS (9.7-12.2) H 08/24/18 05:56 INR 1.5 08/24/18 05:56 APTT 85 SECONDS (21-34) H D 08/24/18 05:56 - Constitutional Appears: Non-toxic, No Acute Distress - Eye Exam Eye Exam: Normal appearance - Respiratory Exam Respiratory Exam: Clear to Ausculation Bilateral. absent: Respiratory Distress - Cardiovascular Exam Cardiovascular Exam: RRR, +S1, +S2 - GI/Abdominal Exam GI & Abdominal Exam: Soft. absent: Distended, Tenderness - Extremities Exam Additional comments: no leg edema; - Neurological Exam Neurological Exam: Alert, Awake - Psychiatric Exam Psychiatric exam: Normal Mood. absent: Agitated - Skin Skin Exam: Warm. absent: Cyanosis Assessment and Plan (1) Acute renal failure Assessment & Plan: ATN, resolving; stable volume and electrolyte status; last HD 1 week ago (UF session due to acute pulm edema); has been on IV lasix, now 40 mg daily; will change to PO 40 mg daily; -avoid nephrotoxic agents; -no need for renal biopsy with renal function improving; Status: Acute (2) Sepsis Assessment & Plan: On cefepime empircally after fever a few days ago, cultures neg; may need to increase cefepime dosing with improving renal function; Status: Acute (3) Acute respiratory failure with hypoxemia Status: Acute (4) Hypocalcemia Status: Resolved (5) NSTEMI (non-ST elevated myocardial infarction) Status: Acute (6) Tachycardia Status: Acute (7) Metabolic acidosis Status: Acute
[2018-08-25 06:36] LABS: BASO # 0.1 K/uL (0.0-0.2); EOS # 0.2 K/uL (0.0-0.7); EOS % 2.9 % (0.0-4.0); HEMOGLOBIN 8.5 g/dL (11.0-16.0); LYMPH # 3.6 K/uL (1.0-4.3); LYMPH % 45.4 % (20.0-40.0); MEAN CELL VOLUME 86.5 fL (81.0-99.0); MEAN CORPUSCULAR HEMOGLOBIN 29.7 pg (27.0-31.0); MEAN CORPUSCULAR HGB CONC 34.4 g/dL (33.0-37.0); MEAN PLATELET VOLUME 8.4 fL (7.2-11.7); MONO # 0.7 K/uL (0.0-0.8); MONO % 8.6 % (0.0-10.0); NEUT # 3.3 K/uL (1.8-7.0); NEUT % 42.1 % (50.0-75.0); NRBC % 0.1 % (0.0-2.0); RBC 2.87 Mil/uL (3.80-5.20); RED CELL DISTRIBUTION WIDTH 19.2 % (11.5-14.5); WHITE BLOOD COUNT 7.8 K/uL (4.8-10.8)
[2018-08-25 06:51] LABS: INR 1.5; PROTHROMBIN TIME 16.5 SECONDS (9.7-12.2)
[2018-08-25 06:59] LABS: ALB/GLOB RATIO 0.9 (1.0-2.1); ALBUMIN 3.3 g/dL (3.5-5.0); CALCIUM 8.6 mg/dl (8.6-10.4)
[2018-08-25] MEDS ORDERED: Potassium Chloride 20 mEq/15 ml LIQ UD PO STA (07:07)
[2018-08-25] MEDS: Nitroglycerin 2% Ointment Foilpak UD TOP SCH ×4 (07:13→22:23)
--- NOTE | 2018-08-25 08:34 | CP.PCM.PN ---
Subjective - Date & Time of Evaluation Date of Evaluation: 08/25/18 Time of Evaluation: 07:50 - Subjective Subjective: Linwood Wheeler, PGY-[address] Ba, Cardiology Patient seen and evaluated at bedside. No acute complaints or events overnight. Remains tachycardic. No symptoms of chest pain, palpitations, shortness of breath endorsed. Objective - Vital Signs/Intake and Output Vital Signs (last 24 hours): Temp Pulse Resp BP Pulse Ox 98.7 F 99 H 23 104/64 100 08/25/18 08:00 08/25/18 08:00 08/25/18 08:00 08/25/18 08:00 08/25/18 08:00 Intake and Output: 08/25/18 08/25/18 06:59 18:59 Intake Total 517.6 259.6 Output Total 750 100 Balance -232.4 159.6 - Medications Medications: Current Medications Acetaminophen (Tylenol 325mg Tab) 650 mg PO Q6 PRN PRN Reason: Fever >100.4 F or pain Last Admin: 08/23/18 03:32 Dose: 650 mg Albuterol/Ipratropium (Duoneb 3 Mg/0.5 Mg (3 Ml) Ud) 3 ml INH RQ6 [facility] Last Admin: 08/25/18 01:34 Dose: 3 ml Aspirin (Aspirin Chewable) 81 mg PO DAILY [facility] Last Admin: 08/24/18 09:22 Dose: 81 mg Benzocaine/Menthol (Cepacol Sore Throat) 1 naheed MT Q4 PRN PRN Reason: Sore Throat Last Admin: 08/22/18 17:41 Dose: 1 naheed Clopidogrel Bisulfate (Plavix) 75 mg PO DAILY [facility] Last Admin: 08/24/18 09:22 Dose: 75 mg Famotidine (Pepcid) 20 mg PO DAILY [facility] Last Admin: 08/24/18 09:22 Dose: 20 mg Fluconazole (Diflucan) 100 mg PO DAILY [facility] Last Admin: 08/24/18 09:22 Dose: 100 mg Furosemide (Lasix) 40 mg PO DAILY [facility] Guaifenesin (Robitussin) 100 mg PO Q4H PRN PRN Reason: Cough Last Admin: 08/25/18 00:40 Dose: 100 mg Cefepime HCl (Maxipime Iv 1 Gm Premix) 1 gm in 50 mls @ 100 mls/hr IVPB Q24H [facility]; Protocol Last Admin: 08/24/18 16:02 Dose: 100 mls/hr Heparin Sodium/Sodium Chloride (Heparin 81741 Units/250ml 1/2 Normal Saline) 25,000 units in 250 mls @ 12.048 mls/hr IV .[id number] PRN; Protocol PRN Reason: ADJUST RATE PER PROTOCOL Last Admin: 08/24/18 09:26 Dose: 15 units/kg/hr, 9.87 mls/hr Metoprolol Tartrate (Lopressor) 50 mg PO BID [facility] Last Admin: 08/24/18 18:21 Dose: 50 mg Nitroglycerin (Nitro-Bid 2% Oint) 1 ea TOP Q6H [facility] Last Admin: 08/25/18 07:48 Dose: Not Given Rosuvastatin Calcium (Crestor) 10 mg PO HS [facility] Last Admin: 08/24/18 21:56 Dose: 10 mg Saccharomyces Boulardii (Florastor) 250 mg PO BID [facility] Last Admin: 08/24/18 17:13 Dose: 250 mg Sodium Chloride ([place] Baby Saline 30 Ml) 0 ml MICHAEL TID [facility] Last Admin: 08/24/18 17:14 Dose: 2 spr - Labs Labs: 08/25/18 06:28 08/25/18 06:28 PT 16.5 SECONDS (9.7-12.2) H 08/25/18 06:28 INR 1.5 08/25/18 06:28 APTT 85 SECONDS (21-34) H D 08/24/18 05:56 - Additional Findings Additional findings: - Constitutional Appears: Non-toxic, No Acute Distress, Cachectic - Head Exam Head Exam: ATRAUMATIC, NORMOCEPHALIC - Neck Exam Additional comments: ecchymosies noted as before. No new areas noted. - Respiratory Exam Respiratory Exam: Decreased Breath Sounds, Clear to Ausculation Bilateral. absent: Chest Wall Tenderness - Cardiovascular Exam Cardiovascular Exam: Tachycardia, +S1, +S2 - Skin Additional comments: as noted above Assessment and Plan - Assessment and Plan (Free Text) Assessment: Assessment: 48 F with PMHx of anxiety who experienced syncopal episode and found to have bilateral pulmonary embolism, A. fib. Plan: Bilateral Pulmonary Embolisms, CHF, coronary artery dissection -Currently no plan for renal biopsy per nephro. Received Heparin yesterday. 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 fib with RVR -EKG on admission showed afib with RVR at 146bpm, uncertain if new finding -most recent EKG shows sinus tachy at 122, today sinus tachy at 110 -continue B- lennox Patient seen, case discussed, further recommendations per Dr. Ba. Linwood Wheeler, PGY-1
--- NOTE | 2018-08-25 09:36 | CP.PCM.PN ---
Subjective - Date & Time of Evaluation Date of Evaluation: 08/25/18 Time of Evaluation: 09:31 - Subjective Subjective: Nephrology progress note for Dr. Henson's service - Gelacio Sawyer PGY3 Patient seen and examined at bedside. No acute overnight events or new complaints. Denies cp, palpitations, SOB. Objective - Vital Signs/Intake and Output Vital Signs (last 24 hours): Temp Pulse Resp BP Pulse Ox 98.7 F 99 H 23 104/64 100 08/25/18 08:00 08/25/18 08:00 08/25/18 08:00 08/25/18 08:00 08/25/18 08:00 Intake and Output: 08/25/18 08/25/18 06:59 18:59 Intake Total 517.6 259.6 Output Total 750 100 Balance -232.4 159.6 - Medications Medications: Current Medications Acetaminophen (Tylenol 325mg Tab) 650 mg PO Q6 PRN PRN Reason: Fever >100.4 F or pain Last Admin: 08/23/18 03:32 Dose: 650 mg Albuterol/Ipratropium (Duoneb 3 Mg/0.5 Mg (3 Ml) Ud) 3 ml INH RQ6 [facility] Last Admin: 08/25/18 01:34 Dose: 3 ml Aspirin (Aspirin Chewable) 81 mg PO DAILY [facility] Last Admin: 08/24/18 09:22 Dose: 81 mg Benzocaine/Menthol (Cepacol Sore Throat) 1 naheed MT Q4 PRN PRN Reason: Sore Throat Last Admin: 08/22/18 17:41 Dose: 1 naheed Clopidogrel Bisulfate (Plavix) 75 mg PO DAILY [facility] Last Admin: 08/24/18 09:22 Dose: 75 mg Famotidine (Pepcid) 20 mg PO DAILY [facility] Last Admin: 08/24/18 09:22 Dose: 20 mg Fluconazole (Diflucan) 100 mg PO DAILY [facility] Last Admin: 08/24/18 09:22 Dose: 100 mg Furosemide (Lasix) 40 mg PO DAILY [facility] Guaifenesin (Robitussin) 100 mg PO Q4H PRN PRN Reason: Cough Last Admin: 08/25/18 00:40 Dose: 100 mg Cefepime HCl (Maxipime Iv 1 Gm Premix) 1 gm in 50 mls @ 100 mls/hr IVPB Q24H [facility]; Protocol Last Admin: 08/24/18 16:02 Dose: 100 mls/hr Heparin Sodium/Sodium Chloride (Heparin 10531 Units/250ml 1/2 Normal Saline) 25,000 units in 250 mls @ 12.048 mls/hr IV .[id number] PRN; Protocol PRN Reason: ADJUST RATE PER PROTOCOL Last Admin: 08/24/18 09:26 Dose: 15 units/kg/hr, 9.87 mls/hr Metoprolol Tartrate (Lopressor) 50 mg PO BID [facility] Last Admin: 08/24/18 18:21 Dose: 50 mg Nitroglycerin (Nitro-Bid 2% Oint) 1 ea TOP Q6H [facility] Last Admin: 08/25/18 07:48 Dose: Not Given Rosuvastatin Calcium (Crestor) 10 mg PO HS [facility] Last Admin: 08/24/18 21:56 Dose: 10 mg Saccharomyces Boulardii (Florastor) 250 mg PO BID [facility] Last Admin: 08/24/18 17:13 Dose: 250 mg Sodium Chloride ([place] Baby Saline 30 Ml) 0 ml MICHAEL TID [facility] Last Admin: 08/24/18 17:14 Dose: 2 spr - Labs Labs: 08/25/18 06:28 08/25/18 06:28 PT 16.5 SECONDS (9.7-12.2) H 08/25/18 06:28 INR 1.5 08/25/18 06:28 APTT 85 SECONDS (21-34) H D 08/24/18 05:56 - Constitutional Appears: No Acute Distress - Head Exam Head Exam: ATRAUMATIC, NORMAL INSPECTION, NORMOCEPHALIC - Eye Exam Eye Exam: EOMI Pupil Exam: PERRL - ENT Exam ENT Exam: Mucous Membranes Moist - Neck Exam Neck Exam: Normal Inspection - Respiratory Exam Respiratory Exam: absent: Rales, Rhonchi, Wheezes - Cardiovascular Exam Cardiovascular Exam: +S1, +S2. absent: Clicks, Gallop, Rubs - GI/Abdominal Exam GI & Abdominal Exam: Soft. absent: Distended, Firm, Guarding, Rigid, Tenderness, Rebound - Extremities Exam Extremities Exam: absent: Calf Tenderness, Pedal Edema, Tenderness - Neurological Exam Neurological Exam: Alert, Awake, CN II-XII Intact, Oriented x3 - Psychiatric Exam Psychiatric exam: Normal Affect, Normal Mood - Skin Skin Exam: Dry, Intact, Normal Color, Warm Assessment and Plan - Assessment and Plan (Free Text) Plan: 48yo female with history of anxiety, on OCP who presented following a syncopal episode and noted to be in afib with RVR with subsequent respiratory failure secondary to bilateral PE complicated by PNA. 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 Clinical course complicated by renal failure secondary to presumed ATN and NSTEMI s/p cath showing spontaneous right coronary artery dissection. 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 Henson
--- NOTE | 2018-08-25 09:41 | CP.PCM.PN ---
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 Pt denies any acute events overnight. Pt says SOb is improving greatly, horseness of voice improving. Pt denies cp fc nv. Pt reports has had normal bm and no dysuria. Objective - Vital Signs/Intake and Output Vital Signs (last 24 hours): Temp Pulse Resp BP Pulse Ox 98.7 F 99 H 23 104/64 100 08/25/18 08:00 08/25/18 08:00 08/25/18 08:00 08/25/18 08:00 08/25/18 08:00 Intake and Output: 08/25/18 08/25/18 06:59 18:59 Intake Total 517.6 259.6 Output Total 750 100 Balance -232.4 159.6 - Medications Medications: Current Medications Acetaminophen (Tylenol 325mg Tab) 650 mg PO Q6 PRN PRN Reason: Fever >100.4 F or pain Last Admin: 08/23/18 03:32 Dose: 650 mg Albuterol/Ipratropium (Duoneb 3 Mg/0.5 Mg (3 Ml) Ud) 3 ml INH RQ6 [facility] Last Admin: 08/25/18 01:34 Dose: 3 ml Aspirin (Aspirin Chewable) 81 mg PO DAILY [facility] Last Admin: 08/24/18 09:22 Dose: 81 mg Benzocaine/Menthol (Cepacol Sore Throat) 1 naheed MT Q4 PRN PRN Reason: Sore Throat Last Admin: 08/22/18 17:41 Dose: 1 naheed Clopidogrel Bisulfate (Plavix) 75 mg PO DAILY [facility] Last Admin: 08/24/18 09:22 Dose: 75 mg Famotidine (Pepcid) 20 mg PO DAILY [facility] Last Admin: 08/24/18 09:22 Dose: 20 mg Fluconazole (Diflucan) 100 mg PO DAILY [facility] Last Admin: 08/24/18 09:22 Dose: 100 mg Furosemide (Lasix) 40 mg PO DAILY [facility] Guaifenesin (Robitussin) 100 mg PO Q4H PRN PRN Reason: Cough Last Admin: 08/25/18 00:40 Dose: 100 mg Cefepime HCl (Maxipime Iv 1 Gm Premix) 1 gm in 50 mls @ 100 mls/hr IVPB Q24H [facility]; Protocol Last Admin: 08/24/18 16:02 Dose: 100 mls/hr Heparin Sodium/Sodium Chloride (Heparin 62948 Units/250ml 1/2 Normal Saline) 25,000 units in 250 mls @ 12.048 mls/hr IV .[id number] PRN; Protocol PRN Reason: ADJUST RATE PER PROTOCOL Last Admin: 08/24/18 09:26 Dose: 15 units/kg/hr, 9.87 mls/hr Metoprolol Tartrate (Lopressor) 50 mg PO BID [facility] Last Admin: 08/24/18 18:21 Dose: 50 mg Nitroglycerin (Nitro-Bid 2% Oint) 1 ea TOP Q6H [facility] Last Admin: 08/25/18 07:48 Dose: Not Given Rosuvastatin Calcium (Crestor) 10 mg PO HS [facility] Last Admin: 08/24/18 21:56 Dose: 10 mg Saccharomyces Boulardii (Florastor) 250 mg PO BID [facility] Last Admin: 08/24/18 17:13 Dose: 250 mg Sodium Chloride ([place] Baby Saline 30 Ml) 0 ml MICHAEL TID [facility] Last Admin: 08/24/18 17:14 Dose: 2 spr Warfarin Sodium (Coumadin) 3 mg PO 1800 [facility] Stop: 08/25/18 18:01 - Labs Labs: 08/25/18 06:28 08/25/18 06:28 PT 16.5 SECONDS (9.7-12.2) H 08/25/18 06:28 INR 1.5 08/25/18 06:28 APTT 85 SECONDS (21-34) H D 08/24/18 05:56 - Respiratory Exam Respiratory Exam: absent: Respiratory Distress Additional comments: R lung field abnormal breath sound on expiration - Additional Findings Additional findings: - Constitutional Appears: No Acute Distress, Unkempt, Chronically Ill - Head Exam Head Exam: NORMAL INSPECTION Additional comments: echymosis as before, not changed - Eye Exam Additional comments: Echymosis noted - as before. - ENT Exam Additional comments: No longer has any TLC or permacath line - Cardiovascular Exam Cardiovascular Exam: REGULAR RHYTHM - GI/Abdominal Exam GI & Abdominal Exam: Soft, Normal Bowel Sounds - Neurological Exam Neurological Exam: Alert, Awake, Oriented x3 Neuro motor strength exam: Left Upper Extremity: 4, Right Upper Extremity: 4 - Skin Skin Exam: Normal Color, Warm Additional comments: Norma forehead and neck Assessment and Plan - Assessment and Plan (Free Text) Assessment: Fevers, r/o bacteremia -08/24: Has been afebrile past 72 hrs -Now no longer has TLC or permacath. -Remains on IV Cefepime and Diflucan. -Blood cultures negative 72 hrs Acute renal failure likey due to ATN -Per family urine outputs are good. -Creatine 1.5 this morning. -No kidney biopsy for time being. Bilateral PE and DVT -coumadin 3mg po -heparin drip @ 18 bridge -Switching to eliquis tmrw if renal fx still stable -CTA chest: extensive b/l lower lobe proximal pulmonary emboli distal on margins of R and L pulmonary arteries, lower lobe of branches and proximal segmental - branches b/l. smaller emboli within segmental/subsegmental branches of upper and middle lobes -LE duplex: acute thrombosis of L common femoral vein -ECHO: EF 50-55%, mild to moderate TR and pulmonary HTN NSTEMI -Currently stable, no chest pain -Previous Cath: RCA spontaneous dissection, Distal posterior left ventricular v essel 100% occlusion, EF 50% -On plavix ,asprin and crestor and metoprolol Pneumonia -CT chest 08/20 consistent with pneumonia -clinically improving -fever spikes could be due to cath related infection -On cefepime -ID consulted, Dr. Slater Anxiety -Xanax PRN GI/DVT ppx: -pepsid for GI -On heparin for DVT <Torin Velez H - Last Filed: 08/25/18 15:01> Objective - Vital Signs/Intake and Output Vital Signs (last 24 hours): Temp Pulse Resp BP Pulse Ox 97.3 F L 94 H 16 97/63 L 99 08/25/18 12:00 08/25/18 12:00 08/25/18 12:00 08/25/18 12:00 08/25/18 12:00 Intake and Output: 08/25/18 08/25/18 06:59 18:59 Intake Total 517.6 858.6 Output Total 750 600 Balance -232.4 258.6 - Medications Medications: Current Medications Acetaminophen (Tylenol 325mg Tab) 650 mg PO Q6 PRN PRN Reason: Fever >100.4 F or pain Last Admin: 08/23/18 03:32 Dose: 650 mg Albuterol/Ipratropium (Duoneb 3 Mg/0.5 Mg (3 Ml) Ud) 3 ml INH RQ6 [facility] Last Admin: 08/25/18 01:34 Dose: 3 ml Aspirin (Aspirin Chewable) 81 mg PO DAILY [facility] Last Admin: 08/25/18 10:20 Dose: 81 mg Benzocaine/Menthol (Cepacol Sore Throat) 1 naheed MT Q4 PRN PRN Reason: Sore Throat Last Admin: 08/22/18 17:41 Dose: 1 naheed Clopidogrel Bisulfate (Plavix) 75 mg PO DAILY [facility] Last Admin: 08/25/18 10:20 Dose: 75 mg Famotidine (Pepcid) 20 mg PO DAILY [facility] Last Admin: 08/25/18 10:20 Dose: 20 mg Fluconazole (Diflucan) 100 mg PO DAILY [facility] Last Admin: 08/25/18 10:20 Dose: 100 mg Furosemide (Lasix) 20 mg PO DAILY [facility] Guaifenesin (Robitussin) 100 mg PO Q4H PRN PRN Reason: Cough Last Admin: 08/25/18 00:40 Dose: 100 mg Cefepime HCl (Maxipime Iv 1 Gm Premix) 1 gm in 50 mls @ 100 mls/hr IVPB Q24H [facility]; Protocol Last Admin: 08/24/18 16:02 Dose: 100 mls/hr Heparin Sodium/Sodium Chloride (Heparin 34583 Units/250ml 1/2 Normal Saline) 25,000 units in 250 mls @ 12.048 mls/hr IV .[id number] PRN; Protocol PRN Reason: ADJUST RATE PER PROTOCOL Last Admin: 08/25/18 10:40 Dose: 15 units/kg/hr, 9.87 mls/hr Metoprolol Tartrate (Lopressor) 50 mg PO BID [facility] Last Admin: 08/25/18 10:29 Dose: 50 mg Nitroglycerin (Nitro-Bid 2% Oint) 1 ea TOP Q6H [facility] Last Admin: 08/25/18 07:48 Dose: Not Given Rosuvastatin Calcium (Crestor) 10 mg PO HS [facility] Last Admin: 08/24/18 21:56 Dose: 10 mg Saccharomyces Boulardii (Florastor) 250 mg PO BID [facility] Last Admin: 08/25/18 10:20 Dose: 250 mg Sodium Chloride ([place] Baby Saline 30 Ml) 0 ml MICHAEL TID [facility] Last Admin: 08/25/18 13:41 Dose: 2 spr Warfarin Sodium (Coumadin) 3 mg PO 1800 [facility] Stop: 08/25/18 18:01 - Labs Labs: 08/25/18 06:28 08/25/18 06:28 PT 16.5 SECONDS (9.7-12.2) H 08/25/18 06:28 INR 1.5 08/25/18 06:28 APTT 54 SECONDS (21-34) H D 08/25/18 09:51 Attending/Attestation - Attestation I have personally seen and examined this patient.: Yes I have fully participated in the care of the patient.: Yes I have reviewed all pertinent clinical information, including history, physical exam and plan: Yes Notes (Text): 08/25/18 14:52 Medical attending: Patient was seen and examined by me. Agree with the above note by the resident The patient was not in any acute distress when I came and saw the patient. The patient was also urinating a lot she says Creatine was 1.5 this morning. At this time we are still using coumadin as well as heparin ggt. The patient from what I understands says that at somepoint she wants to go back to [place] and she says to us that she wants to be on Eliquis instead since she would be able to afford this [place]. If her creatine remains stable we will consider changing over to Eliquis tommorow. thank you Torin Velez
[2018-08-25] MEDS ORDERED: Magnesium Sulfate 1 gm in D5W 1 GM/100 ML BAG IVPB ONE ×2 (09:52→10:15)
[2018-08-25] MEDS: Saccharomyces Boulardi 250 mg Cap PO SCH ×2 (10:20→18:52)
[2018-08-25] MEDS: Sodium Chloride Nasal 0.65% Soln (30ml) NAS SCH ×3 (10:22→18:52)
[2018-08-25] MEDS: Heparin25000 units/250ml 1/2NS 25,000 UNITS/250 ML BAG IV PRN (10:40)
[2018-08-25] MEDS: Cefepime IV 1 gm in Dextrose 1 GM/50 ML BAG IVPB SCH (15:53)
--- NOTE | 2018-08-25 22:28 | CP.PCM.PN ---
Subjective - Date & Time of Evaluation Date of Evaluation: 08/25/18 Time of Evaluation: 15:00 - Subjective Subjective: dictated Objective - Vital Signs/Intake and Output Vital Signs (last 24 hours): Temp Pulse Resp BP Pulse Ox 98.1 F 92 H 22 100/62 99 08/25/18 16:00 08/25/18 18:30 08/25/18 18:30 08/25/18 18:30 08/25/18 18:30 Intake and Output: 08/25/18 08/26/18 18:59 06:59 Intake Total 1147.6 9.8 Output Total 900 Balance 247.6 9.8 - Medications Medications: Current Medications Acetaminophen (Tylenol 325mg Tab) 650 mg PO Q6 PRN PRN Reason: Fever >100.4 F or pain Last Admin: 08/23/18 03:32 Dose: 650 mg Albuterol/Ipratropium (Duoneb 3 Mg/0.5 Mg (3 Ml) Ud) 3 ml INH RQ6 [facility] Last Admin: 08/25/18 19:33 Dose: 3 ml Aspirin (Aspirin Chewable) 81 mg PO DAILY [facility] Last Admin: 08/25/18 10:20 Dose: 81 mg Benzocaine/Menthol (Cepacol Sore Throat) 1 naheed MT Q4 PRN PRN Reason: Sore Throat Last Admin: 08/22/18 17:41 Dose: 1 naheed Clopidogrel Bisulfate (Plavix) 75 mg PO DAILY [facility] Last Admin: 08/25/18 10:20 Dose: 75 mg Famotidine (Pepcid) 20 mg PO DAILY [facility] Last Admin: 08/25/18 10:20 Dose: 20 mg Furosemide (Lasix) 20 mg PO DAILY [facility] Guaifenesin (Robitussin) 100 mg PO Q4H PRN PRN Reason: Cough Last Admin: 08/25/18 00:40 Dose: 100 mg Heparin Sodium/Sodium Chloride (Heparin 94489 Units/250ml 1/2 Normal Saline) 25,000 units in 250 mls @ 12.048 mls/hr IV .[id number] PRN; Protocol PRN Reason: ADJUST RATE PER PROTOCOL Last Admin: 08/25/18 10:40 Dose: 15 units/kg/hr, 9.87 mls/hr Metoprolol Tartrate (Lopressor) 50 mg PO BID [facility] Last Admin: 08/25/18 18:51 Dose: 50 mg Nitroglycerin (Nitro-Bid 2% Oint) 1 ea TOP Q6H [facility] Rosuvastatin Calcium (Crestor) 10 mg PO HS [facility] Last Admin: 08/25/18 22:27 Dose: 10 mg Saccharomyces Boulardii (Florastor) 250 mg PO BID [facility] Last Admin: 08/25/18 18:52 Dose: 250 mg Sodium Chloride ([place] Baby Saline 30 Ml) 0 ml MICHAEL TID [facility] Last Admin: 08/25/18 18:52 Dose: 2 spr - Labs Labs: 08/25/18 06:28 08/25/18 06:28 PT 16.5 SECONDS (9.7-12.2) H 08/25/18 06:28 INR 1.5 08/25/18 06:28 APTT 54 SECONDS (21-34) H D 08/25/18 09:51
[2018-08-26] MEDS: Nitroglycerin 2% Ointment Foilpak UD TOP SCH ×4 (00:16→17:31)
[2018-08-26] MEDS: Albuterol-Ipratrop 3 mg / 0.5 (3 ml) UD INH SCH ×3 (01:07→20:00)
[2018-08-26 06:00] LABS: BASO # 0.1 K/uL (0.0-0.2); BASO % 1.4 % (0.0-2.0); EOS # 0.2 K/uL (0.0-0.7); EOS % 2.3 % (0.0-4.0); HEMOGLOBIN 8.6 g/dL (11.0-16.0); LYMPH # 3.9 K/uL (1.0-4.3); LYMPH % 46.9 % (20.0-40.0); MEAN CELL VOLUME 80.3 fL (81.0-99.0); MEAN CORPUSCULAR HEMOGLOBIN 27.3 pg (27.0-31.0); MEAN CORPUSCULAR HGB CONC 33.9 g/dL (33.0-37.0); MONO # 0.6 K/uL (0.0-0.8); MONO % 7.3 % (0.0-10.0); NEUT # 3.5 K/uL (1.8-7.0); NEUT % 42.1 % (50.0-75.0); NRBC % 0.1 % (0.0-2.0); RBC 3.15 Mil/uL (3.80-5.20); RED CELL DISTRIBUTION WIDTH 19.4 % (11.5-14.5); WHITE BLOOD COUNT 8.3 K/uL (4.8-10.8)
[2018-08-26 06:05] LABS: INR 1.4; PROTHROMBIN TIME 15.6 SECONDS (9.7-12.2)
[2018-08-26 06:21] LABS: ALB/GLOB RATIO 0.8 (1.0-2.1); ALBUMIN 3.2 g/dL (3.5-5.0); CALCIUM 8.6 mg/dl (8.6-10.4)
--- NOTE | 2018-08-26 07:19 | CON ---
DATE: 08/25/2018 HISTORY OF PRESENT ILLNESS: The patient was seen today and the patient was feeling better. She was alert, awake. She is still on heparin drip, however. T-max is 98.1, pulse 95, blood pressure 100/62 and respirations are 18. Her dialysis catheter was removed over the weekend as she was having fevers; however, cultures have been all negative. Blood and urine cultures have been negative and on 08/21/2018 had urine culture which showed multiple species. However, her creatinine has come down. She offers no new complaints. She has no chest pain. No shortness of breath. PHYSICAL EXAMINATION: VITAL SIGNS: Vitals are stable at this time. LUNGS: Clear. HEART: S1, S2 is regular. ABDOMEN: Soft, nontender. No guarding, no rigidity present. EXTREMITIES: Have no edema. IMPRESSION AND PLAN: Her liver enzymes are a little elevated today; however, I will discontinue Maxipime as that could be one of the causes also for increasing it and I would like to keep her off antibiotics at this time. She did have pulmonary embolism and she is being treated with anticoagulation and she is also on Plavix and so at least she will be off antibiotics and needs to be monitored and is looking much better now. Smitha Slater MD
--- NOTE | 2018-08-26 07:36 | CP.PCM.PN ---
Subjective - Date & Time of Evaluation Date of Evaluation: 08/26/18 Time of Evaluation: 07:45 - Subjective Subjective: Linwood Wheeler, PGY-[address] Ba Patient seen and evaluated at bedside. No acute events overnight. Denies CP, SOB, palpitations, dizziness and headaches. Reports ambulating with some weakness. Objective - Vital Signs/Intake and Output Vital Signs (last 24 hours): Temp Pulse Resp BP Pulse Ox 98 F 89 18 101/68 97 08/26/18 04:00 08/26/18 04:00 08/26/18 04:00 08/26/18 04:00 08/26/18 04:00 Intake and Output: 08/26/18 08/26/18 06:59 18:59 Intake Total 418.7 Output Total 1050 Balance -631.3 - Medications Medications: Current Medications Acetaminophen (Tylenol 325mg Tab) 650 mg PO Q6 PRN PRN Reason: Fever >100.4 F or pain Last Admin: 08/23/18 03:32 Dose: 650 mg Albuterol/Ipratropium (Duoneb 3 Mg/0.5 Mg (3 Ml) Ud) 3 ml INH RQ6 [facility] Last Admin: 08/26/18 01:07 Dose: 3 ml Aspirin (Aspirin Chewable) 81 mg PO DAILY [facility] Last Admin: 08/25/18 10:20 Dose: 81 mg Benzocaine/Menthol (Cepacol Sore Throat) 1 naheed MT Q4 PRN PRN Reason: Sore Throat Last Admin: 08/22/18 17:41 Dose: 1 naheed Clopidogrel Bisulfate (Plavix) 75 mg PO DAILY [facility] Last Admin: 08/25/18 10:20 Dose: 75 mg Famotidine (Pepcid) 20 mg PO DAILY [facility] Last Admin: 08/25/18 10:20 Dose: 20 mg Furosemide (Lasix) 20 mg PO DAILY [facility] Guaifenesin (Robitussin) 100 mg PO Q4H PRN PRN Reason: Cough Last Admin: 08/25/18 00:40 Dose: 100 mg Heparin Sodium/Sodium Chloride (Heparin 94371 Units/250ml 1/2 Normal Saline) 25,000 units in 250 mls @ 12.048 mls/hr IV .[id number] PRN; Protocol PRN Reason: ADJUST RATE PER PROTOCOL Last Admin: 08/25/18 10:40 Dose: 15 units/kg/hr, 9.87 mls/hr Metoprolol Tartrate (Lopressor) 50 mg PO BID [facility] Last Admin: 08/25/18 18:51 Dose: 50 mg Nitroglycerin (Nitro-Bid 2% Oint) 1 ea TOP Q6H [facility] Last Admin: 08/26/18 05:59 Dose: Not Given Rosuvastatin Calcium (Crestor) 10 mg PO HS [facility] Last Admin: 08/25/18 22:27 Dose: 10 mg Saccharomyces Boulardii (Florastor) 250 mg PO BID [facility] Last Admin: 08/25/18 18:52 Dose: 250 mg Sodium Chloride ([place] Baby Saline 30 Ml) 0 ml MICHAEL TID [facility] Last Admin: 08/25/18 18:52 Dose: 2 spr - Labs Labs: 08/26/18 05:53 08/26/18 05:53 PT 15.6 SECONDS (9.7-12.2) H 08/26/18 05:53 INR 1.4 08/26/18 05:53 APTT 83 SECONDS (21-34) H D 08/26/18 05:53 - Additional Findings Additional findings: - Constitutional Appears: Non-toxic, No Acute Distress, ecchymosies to neck and upper chest, unchanged from previous - Head Exam Head Exam: ATRAUMATIC, NORMOCEPHALIC - Neck Exam Additional comments: ecchymosies noted as before. No new areas noted. - Respiratory Exam Respiratory Exam: Decreased Breath Sounds, Clear to Ausculation Bilateral. absent: Chest Wall Tenderness - Cardiovascular Exam Cardiovascular Exam: Tachycardia, +S1, +S2 - Skin Additional comments: as noted above Assessment and Plan - Assessment and Plan (Free Text) Assessment: Assessment: 48 F with PMHx of anxiety who experienced syncopal episode and found to have bilateral pulmonary embolism, A. fib and coronary artery dissection. Plan: Bilateral Pulmonary Embolisms, CHF, coronary artery dissection -INR 1.4 today s/p Warfarin 3 mg 08/24. Discontinue Heparin drip. Transition to Eliquis. -continue to monitor INR until time of transition -cardiac cath on 08/10 showed EF 45-50%, spontaneous coronary dissection of the right coronary and distal posterior left ventricular occlusion 99% stenosis -currently ASA 81mg, plavix 75mg, metoprolol XL 50mg BID, crestor 10mg -echo showed LVEF 50-55%, mild to moderate TR and pulmonary hypertension, Repeat BNP 13534 elevated, PO Lasix per Nephro Paroxysmal A. fib with RVR -EKG on admission showed Afib with RVR at 146bpm, uncertain if new finding -most recent EKG shows sinus tachy at 122, today sinus tachy at 111 -continue B-lennox Patient seen, case discussed, further recommendations per Dr. Ba. Linwood Wheeler, PGY-1
--- NOTE | 2018-08-26 09:37 | CP.PCM.PN ---
<Ernie Moran - Last Filed: 08/26/18 13:35> Subjective - Date & Time of Evaluation Date of Evaluation: 08/26/18 Time of Evaluation: 09:34 - Subjective Subjective: Hospitalist Note for Dr Velez Pt seen and examined at bedside. Pt complains of lightheadedness and dizziness. Pt denies any falls or bleeding / brusing. Pt denies LOC. Pt denies cp sob fc nv. Pt feels weak but is able to ambulate and follow commands. Objective - Vital Signs/Intake and Output Vital Signs (last 24 hours): Temp Pulse Resp BP Pulse Ox 98 F 102 H 18 101/68 97 08/26/18 04:00 08/26/18 07:51 08/26/18 04:00 08/26/18 04:00 08/26/18 04:00 Intake and Output: 08/26/18 08/26/18 06:59 18:59 Intake Total 418.7 Output Total 1050 Balance -631.3 - Medications Medications: Current Medications Acetaminophen (Tylenol 325mg Tab) 650 mg PO Q6 PRN PRN Reason: Fever >100.4 F or pain Last Admin: 08/23/18 03:32 Dose: 650 mg Albuterol/Ipratropium (Duoneb 3 Mg/0.5 Mg (3 Ml) Ud) 3 ml INH RQ6 [facility] Last Admin: 08/26/18 08:03 Dose: 3 ml Apixaban (Eliquis) 2.5 mg PO Q12 [facility] Aspirin (Aspirin Chewable) 81 mg PO DAILY [facility] Last Admin: 08/25/18 10:20 Dose: 81 mg Benzocaine/Menthol (Cepacol Sore Throat) 1 naheed MT Q4 PRN PRN Reason: Sore Throat Last Admin: 08/22/18 17:41 Dose: 1 naheed Clopidogrel Bisulfate (Plavix) 75 mg PO DAILY [facility] Last Admin: 08/25/18 10:20 Dose: 75 mg Famotidine (Pepcid) 20 mg PO DAILY [facility] Last Admin: 08/25/18 10:20 Dose: 20 mg Furosemide (Lasix) 20 mg PO DAILY [facility] Guaifenesin (Robitussin) 100 mg PO Q4H PRN PRN Reason: Cough Last Admin: 08/25/18 00:40 Dose: 100 mg Metoprolol Tartrate (Lopressor) 50 mg PO BID [facility] Last Admin: 08/25/18 18:51 Dose: 50 mg Nitroglycerin (Nitro-Bid 2% Oint) 1 ea TOP Q6H [facility] Last Admin: 08/26/18 05:59 Dose: Not Given Rosuvastatin Calcium (Crestor) 10 mg PO HS [facility] Last Admin: 08/25/18 22:27 Dose: 10 mg Saccharomyces Boulardii (Florastor) 250 mg PO BID [facility] Last Admin: 08/25/18 18:52 Dose: 250 mg Sodium Chloride ([place] Baby Saline 30 Ml) 0 ml MICHAEL TID [facility] Last Admin: 08/25/18 18:52 Dose: 2 spr - Labs Labs: 08/26/18 05:53 08/26/18 05:53 PT 15.6 SECONDS (9.7-12.2) H 08/26/18 05:53 INR 1.4 08/26/18 05:53 APTT 83 SECONDS (21-34) H D 08/26/18 05:53 - Additional Findings Additional findings: - Respiratory Exam Respiratory Exam: absent: Respiratory Distress Additional comments: R lung field abnormal breath sound on expiration - Additional Findings Additional findings: - Constitutional Appears: No Acute Distress, Unkempt, Chronically Ill - Head Exam Head Exam: NORMAL INSPECTION Additional comments: echymosis as before, not changed - Eye Exam Additional comments: Echymosis noted - as before. - ENT Exam Additional comments: No longer has any TLC or permacath line - Cardiovascular Exam Cardiovascular Exam: Tachy 120s on monitor, coming down to 110s - GI/Abdominal Exam GI & Abdominal Exam: Soft, Normal Bowel Sounds - Neurological Exam Neurological Exam: Alert, Awake, Oriented x3 Neuro motor strength exam: Left Upper Extremity: 4, Right Upper Extremity: 4 - Skin Skin Exam: Normal Color, Warm Additional comments: Echymois forehead and neck Assessment and Plan - Assessment and Plan (Free Text) Assessment: 48yo f on tele, s/p yoel PE and RCA dissection seen on cath. switching to eliquis 2.5mg q12 today Acute renal failure likey due to ATN -Per family urine outputs are good. -Creatine 1.5 this morning. -No kidney biopsy for time being. -lasix discontinued Bilateral PE and DVT -Eliquis 2.5mg q12 -CTA chest: extensive b/l lower lobe proximal pulmonary emboli distal on margins of R and L pulmonary arteries, lower lobe of branches and proximal segmental - branches b/l. smaller emboli within segmental/subsegmental branches of upper and middle lobes -LE duplex: acute thrombosis of L common femoral vein -ECHO: EF 50-55%, mild to moderate TR and pulmonary HTN Anemia -H&H stable -Dr Vasquez Consulted recs appreciated -f/u iron and b12 studies -Low MCV -Feosol 300mg daily take with orange juice NSTEMI -Currently stable, no chest pain -Previous Cath: RCA spontaneous dissection, Distal posterior left ventricular vessel 100% occlusion, EF 50% -On plavix ,asprin and crestor and metoprolol Fevers, r/o bacteremia -afebrile, no leukocytosis 96hrs -resolved -off abx -Dr Slater ID recs appreciated -f/u blood cultures Pneumonia -resolved Anxiety -Xanax PRN GI/DVT ppx: -pepsid for GI -Eliquis 2.5mg Po q12 <Torin Velez H - Last Filed: 08/26/18 15:16> Objective - Vital Signs/Intake and Output Vital Signs (last 24 hours): Temp Pulse Resp BP Pulse Ox 98.5 F 98 H 24 92/57 L 98 08/26/18 12:00 08/26/18 12:00 08/26/18 12:00 08/26/18 12:00 08/26/18 12:00 Intake and Output: 08/26/18 08/26/18 06:59 18:59 Intake Total 418.7 939.5 Output Total 1050 200 Balance -631.3 739.5 - Medications Medications: Current Medications Acetaminophen (Tylenol 325mg Tab) 650 mg PO Q6 PRN PRN Reason: Fever >100.4 F or pain Last Admin: 08/23/18 03:32 Dose: 650 mg Albuterol/Ipratropium (Duoneb 3 Mg/0.5 Mg (3 Ml) Ud) 3 ml INH RQ6 [facility] Last Admin: 08/26/18 08:03 Dose: 3 ml Apixaban (Eliquis) 2.5 mg PO Q12 [facility] Last Admin: 08/26/18 10:27 Dose: 2.5 mg Aspirin (Aspirin Chewable) 81 mg PO DAILY [facility] Last Admin: 08/26/18 10:27 Dose: 81 mg Benzocaine/Menthol (Cepacol Sore Throat) 1 naheed MT Q4 PRN PRN Reason: Sore Throat Last Admin: 08/22/18 17:41 Dose: 1 naheed Clopidogrel Bisulfate (Plavix) 75 mg PO DAILY [facility] Last Admin: 08/26/18 10:27 Dose: 75 mg Famotidine (Pepcid) 20 mg PO DAILY [facility] Last Admin: 08/26/18 10:28 Dose: 20 mg Guaifenesin (Robitussin) 100 mg PO Q4H PRN PRN Reason: Cough Last Admin: 08/25/18 00:40 Dose: 100 mg Ferric Sodium Gluconate Complex 125 mg/ Sodium Chloride 110 mls @ 110 mls/hr IVPB Q24H [facility] Stop: 08/28/18 14:01 Last Admin: 08/26/18 13:48 Dose: 110 mls/hr Sodium Chloride (Sodium Chloride 0.9%) 1,000 mls @ 60 mls/hr IV .[id number] [facility] Stop: 08/27/18 06:09 Last Admin: 08/26/18 13:48 Dose: 60 mls/hr Metoprolol Tartrate (Lopressor) 50 mg PO BID [facility] Last Admin: 08/26/18 10:28 Dose: 50 mg Nitroglycerin (Nitro-Bid 2% Oint) 1 ea TOP Q6H [facility] Last Admin: 08/26/18 12:55 Dose: 1 ea Rosuvastatin Calcium (Crestor) 10 mg PO HS [facility] Last Admin: 08/25/18 22:27 Dose: 10 mg Saccharomyces Boulardii (Florastor) 250 mg PO BID [facility] Last Admin: 08/26/18 10:27 Dose: 250 mg - Labs Labs: 08/26/18 05:53 08/26/18 05:53 PT 15.6 SECONDS (9.7-12.2) H 08/26/18 05:53 INR 1.4 08/26/18 05:53 APTT 83 SECONDS (21-34) H D 08/26/18 05:53 Attending/Attestation - Attestation I have personally seen and examined this patient.: Yes I have fully participated in the care of the patient.: Yes I have reviewed all pertinent clinical information, including history, physical exam and plan: Yes Notes (Text): 08/26/18 15:11 Medical attending: Patient was seen and examined by me. Agree with the above note by the resident The patient was not in any acute distress. The patient's family member at bedside as well. Today lasix was stopped. We also stopped the heparin ggt and stopped the coumadin and will use PO Eliquis, her renal function is almost normal now. Torin Velez
[2018-08-26] MEDS ORDERED: Ferrous Sulfate 300 mg/5 mL Liq UD PO SCH (10:00)
[2018-08-26] MEDS: Saccharomyces Boulardi 250 mg Cap PO SCH ×2 (10:27→17:30)
[2018-08-26] MEDS: Sodium Chloride Nasal 0.65% Soln (30ml) NAS SCH (10:28)
[2018-08-26 12:00] LABS: IRON 59 ug/dL (37-170)
[2018-08-26 12:09] LABS: % IRON SATURATION 26 (20-55); TOTAL IRON BINDING CAPACITY 230 ug/dL (250-450)
--- NOTE | 2018-08-26 12:23 | CP.PCM.PN ---
Subjective - Date & Time of Evaluation Date of Evaluation: 08/26/18 Time of Evaluation: 12:21 - Subjective Subjective: Nephrology progress note for Dr. Henson's service - Gelacio Sawyer PGY3 Patient seen and examined at bedside this morning. No acute overnight events or new complaints. Denies cp, palpitations; SOB improving. Objective - Vital Signs/Intake and Output Vital Signs (last 24 hours): Temp Pulse Resp BP Pulse Ox 98.5 F 98 H 24 92/57 L 98 08/26/18 12:00 08/26/18 12:00 08/26/18 12:00 08/26/18 12:00 08/26/18 12:00 Intake and Output: 08/26/18 08/26/18 06:59 18:59 Intake Total 418.7 599.5 Output Total 1050 200 Balance -631.3 399.5 - Medications Medications: Current Medications Acetaminophen (Tylenol 325mg Tab) 650 mg PO Q6 PRN PRN Reason: Fever >100.4 F or pain Last Admin: 08/23/18 03:32 Dose: 650 mg Albuterol/Ipratropium (Duoneb 3 Mg/0.5 Mg (3 Ml) Ud) 3 ml INH RQ6 [facility] Last Admin: 08/26/18 08:03 Dose: 3 ml Apixaban (Eliquis) 2.5 mg PO Q12 [facility] Last Admin: 08/26/18 10:27 Dose: 2.5 mg Aspirin (Aspirin Chewable) 81 mg PO DAILY [facility] Last Admin: 08/26/18 10:27 Dose: 81 mg Benzocaine/Menthol (Cepacol Sore Throat) 1 naheed MT Q4 PRN PRN Reason: Sore Throat Last Admin: 08/22/18 17:41 Dose: 1 naheed Clopidogrel Bisulfate (Plavix) 75 mg PO DAILY [facility] Last Admin: 08/26/18 10:27 Dose: 75 mg Famotidine (Pepcid) 20 mg PO DAILY [facility] Last Admin: 08/26/18 10:28 Dose: 20 mg Ferrous Sulfate (Feosol Liq) 300 mg PO DAILY [facility] Last Admin: 08/26/18 10:26 Dose: 300 mg Furosemide (Lasix) 20 mg PO DAILY [facility] Last Admin: 08/26/18 10:27 Dose: 20 mg Guaifenesin (Robitussin) 100 mg PO Q4H PRN PRN Reason: Cough Last Admin: 08/25/18 00:40 Dose: 100 mg Metoprolol Tartrate (Lopressor) 50 mg PO BID [facility] Last Admin: 08/26/18 10:28 Dose: 50 mg Nitroglycerin (Nitro-Bid 2% Oint) 1 ea TOP Q6H [facility] Last Admin: 08/26/18 05:59 Dose: Not Given Rosuvastatin Calcium (Crestor) 10 mg PO HS [facility] Last Admin: 08/25/18 22:27 Dose: 10 mg Saccharomyces Boulardii (Florastor) 250 mg PO BID [facility] Last Admin: 08/26/18 10:27 Dose: 250 mg - Labs Labs: 08/26/18 05:53 08/26/18 05:53 PT 15.6 SECONDS (9.7-12.2) H 08/26/18 05:53 INR 1.4 08/26/18 05:53 APTT 83 SECONDS (21-34) H D 08/26/18 05:53 - Constitutional Appears: No Acute Distress - Head Exam Head Exam: ATRAUMATIC, NORMAL INSPECTION, NORMOCEPHALIC - Eye Exam Eye Exam: EOMI Pupil Exam: PERRL - ENT Exam ENT Exam: Mucous Membranes Moist - Neck Exam Neck Exam: Normal Inspection. absent: Lymphadenopathy, Tenderness, Thyromegaly - Respiratory Exam Respiratory Exam: absent: Rales, Rhonchi, Wheezes - Cardiovascular Exam Cardiovascular Exam: +S1, +S2. absent: Clicks, Gallop, Rubs - GI/Abdominal Exam GI & Abdominal Exam: Soft. absent: Distended, Firm, Guarding, Rigid, Tenderness, Rebound - Extremities Exam Extremities Exam: absent: Calf Tenderness, Pedal Edema, Tenderness - Neurological Exam Neurological Exam: Alert, Awake, CN II-XII Intact, Oriented x3 - Psychiatric Exam Psychiatric exam: Normal Affect, Normal Mood - Skin Skin Exam: Dry, Intact, Normal Color, Warm Assessment and Plan - Assessment and Plan (Free Text) Plan: 48yo female with history of anxiety, on OCP who presented following a syncopal episode and noted to be in afib with RVR with subsequent respiratory failure secondary to bilateral PE complicated by PNA. Presently she had been extubated and post CHECK GRADER placed on BiPAP. Clinical course complicated by renal failure secondary to presumed ATN and NSTEMI s/p cath showing spontaneous right coronary artery dissection. - ATN in the setting of septic shock and renal function continues to be improving slowly, an atypical finding for ATN - Presently has been achieving acceptable negative fluid balance - Discontinued lasix and started patient on NS @60cc/hr due to low BP's - Abx now discontinued; patient transitioned to eliquis per primary team - Previously underwent emergent UF session secondary to pulmonary edema with 3 liters of UF goal achieved - Cardiac cath - EF 45-50%; spontaneous coronary dissection of the right coronary ; distal posterior left ventricular occlusion 99% stenosis - Vasculitis work up thus far neg - Avoid all nephrotoxic agents (NSAIDS, phosphate enema, IV dye) Case and plan was reviewed and discussed in detail with Dr. Henson
[2018-08-26] MEDS ORDERED: Ferric Sodium Gluconat Complex 62.5 mg/5 ml Vial IVPB SCH (13:00)
[2018-08-26] MEDS ORDERED: Sodium Chloride 0.9% 1,000 ML IV SCH (13:30)
[2018-08-26] MEDS: Ferric Sodium Gluconat Complex 125 MG in Sodium Chloride 0.9% 100 ML IVPB SCH (13:48)
[2018-08-27] MEDS: Nitroglycerin 2% Ointment Foilpak UD TOP SCH ×5 (00:30→17:37)
[2018-08-27] MEDS: Albuterol-Ipratrop 3 mg / 0.5 (3 ml) UD INH SCH ×3 (01:18→19:29)
[2018-08-27 06:43] LABS: BASO # 0.1 K/uL (0.0-0.2); BASO % 1.1 % (0.0-2.0); EOS # 0.1 K/uL (0.0-0.7); EOS % 1.8 % (0.0-4.0); HEMOGLOBIN 8.2 g/dL (11.0-16.0); LYMPH # 3.2 K/uL (1.0-4.3); LYMPH % 48.3 % (20.0-40.0); MEAN CELL VOLUME 94.8 fL (81.0-99.0); MEAN CORPUSCULAR HEMOGLOBIN 33.8 pg (27.0-31.0); MEAN CORPUSCULAR HGB CONC 35.7 g/dL (33.0-37.0); MEAN PLATELET VOLUME 8.4 fL (7.2-11.7); MONO # 0.5 K/uL (0.0-0.8); MONO % 8.1 % (0.0-10.0); NEUT # 2.7 K/uL (1.8-7.0); NEUT % 40.7 % (50.0-75.0); RBC 2.42 Mil/uL (3.80-5.20); WHITE BLOOD COUNT 6.7 K/uL (4.8-10.8)
[2018-08-27 06:48] LABS: INR 1.6
[2018-08-27 07:04] LABS: ALB/GLOB RATIO 0.9 (1.0-2.1); ALBUMIN 3.2 g/dL (3.5-5.0); ALT/SGPT 59 U/L (9-52); AST/SGOT 73 U/L (14-36); B-TYPE NATRIURETIC PEPTIDE 4260 pg/mL (0-450); BLOOD UREA NITROGEN 18 mg/dL (7-17); CALCIUM 8.4 mg/dl (8.6-10.4); GFR NON-AFRICAN AMERICAN 53
--- NOTE | 2018-08-27 09:20 | CP.PCM.PN ---
<Ernie Moran - Last Filed: 08/27/18 13:47> Subjective - Date & Time of Evaluation Date of Evaluation: 08/27/18 Time of Evaluation: 09:16 - Subjective Subjective: Hospitalist Service Pt seen and examined at bedside. Pt reports feeling much better than yesterday and her fatigue has resolved. Pt denies cp fc nv sob, pt denies any urinary changes or abnormal bm. Objective - Vital Signs/Intake and Output Vital Signs (last 24 hours): Temp Pulse Resp BP Pulse Ox 98.8 F 99 H 26 H 100/64 100 08/27/18 04:00 08/27/18 04:00 08/27/18 04:00 08/27/18 04:00 08/27/18 04:00 Intake and Output: 08/27/18 08/27/18 06:59 18:59 Intake Total 880 Balance 880 - Medications Medications: Current Medications Acetaminophen (Tylenol 325mg Tab) 650 mg PO Q6 PRN PRN Reason: Fever >100.4 F or pain Last Admin: 08/23/18 03:32 Dose: 650 mg Albuterol/Ipratropium (Duoneb 3 Mg/0.5 Mg (3 Ml) Ud) 3 ml INH RQ6 [facility] Last Admin: 08/27/18 07:32 Dose: Not Given Apixaban (Eliquis) 2.5 mg PO Q12 [facility] Last Admin: 08/26/18 22:08 Dose: 2.5 mg Aspirin (Aspirin Chewable) 81 mg PO DAILY [facility] Last Admin: 08/26/18 10:27 Dose: 81 mg Benzocaine/Menthol (Cepacol Sore Throat) 1 naheed MT Q4 PRN PRN Reason: Sore Throat Last Admin: 08/22/18 17:41 Dose: 1 naheed Clopidogrel Bisulfate (Plavix) 75 mg PO DAILY [facility] Last Admin: 08/26/18 10:27 Dose: 75 mg Famotidine (Pepcid) 20 mg PO DAILY [facility] Last Admin: 08/26/18 10:28 Dose: 20 mg Guaifenesin (Robitussin) 100 mg PO Q4H PRN PRN Reason: Cough Last Admin: 08/25/18 00:40 Dose: 100 mg Ferric Sodium Gluconate Complex 125 mg/ Sodium Chloride 110 mls @ 110 mls/hr IVPB Q24H [facility] Stop: 08/28/18 14:01 Last Admin: 08/26/18 13:48 Dose: 110 mls/hr Metoprolol Tartrate (Lopressor) 50 mg PO BID [facility] Last Admin: 08/26/18 17:30 Dose: 50 mg Nitroglycerin (Nitro-Bid 2% Oint) 1 ea TOP Q6H [facility] Last Admin: 08/27/18 06:28 Dose: Not Given Rosuvastatin Calcium (Crestor) 10 mg PO HS [facility] Last Admin: 08/26/18 22:08 Dose: 10 mg Saccharomyces Boulardii (Florastor) 250 mg PO BID [facility] Last Admin: 08/26/18 17:30 Dose: 250 mg - Labs Labs: 08/27/18 06:32 08/27/18 06:32 PT 18.0 SECONDS (9.7-12.2) H 08/27/18 06:32 INR 1.6 08/27/18 06:32 APTT 83 SECONDS (21-34) H D 08/26/18 05:53 - Additional Findings Additional findings: - Respiratory Exam Respiratory Exam: absent: Respiratory Distress Additional comments: R lung field abnormal breath sound on expiration - Additional Findings Additional findings: - Constitutional Appears: No Acute Distress, Unkempt, Chronically Ill - Head Exam Head Exam: NORMAL INSPECTION Additional comments: echymosis as before, not changed - Eye Exam Additional comments: Echymosis noted - as before. - ENT Exam Additional comments: No longer has any TLC or permacath line - Cardiovascular Exam Cardiovascular Exam: Tachy 120s on monitor, coming down to 110s - GI/Abdominal Exam GI & Abdominal Exam: Soft, Normal Bowel Sounds - Neurological Exam Neurological Exam: Alert, Awake, Oriented x3 Neuro motor strength exam: Left Upper Extremity: 4, Right Upper Extremity: 4 - Skin Skin Exam: Normal Color, Warm Additional comments: Echymois forehead and neck Assessment and Plan - Assessment and Plan (Free Text) Assessment: 48yo f on tele, s/p yoel PE and RCA dissection seen on cath. Acute renal failure likey due to ATN -Per family urine outputs are good. -Creatine 1.5 this morning. -No kidney biopsy for time being. -lasix discontinued -Dr Henson Nephro consult no longer needs HD no longer needs renal dosing of eliquis 10mg bid for 7 days then 5mg BID afterwards Bilateral PE and DVT -Eliquis 10mg q12 -CTA chest: extensive b/l lower lobe proximal pulmonary emboli distal on margins of R and L pulmonary arteries, lower lobe of branches and proximal segmental - branches b/l. smaller emboli within segmental/subsegmental branches of upper and middle lobes -LE duplex: acute thrombosis of L common femoral vein -ECHO: EF 50-55%, mild to moderate TR and pulmonary HTN Anemia -H&H stable -Dr Vasquez Consulted recs appreciated -Iron 59, TIBC 230, %sat 26 -Low MCV -Feosol 300mg daily take with orange juice NSTEMI -Currently stable, no chest pain -Previous Cath: RCA spontaneous dissection, Distal posterior left ventricular vessel 100% occlusion, EF 50% -On plavix ,asprin and crestor and metoprolol Fevers, r/o bacteremia -afebrile, no leukocytosis 96hrs -resolved -off abx -Dr Slater ID recs appreciated -f/u blood cultures ordered 08/27 Pneumonia -resolved Anxiety -Xanax PRN GI/DVT ppx: -pepsid for GI -Eliquis 10mg Po q12 <Torin Velez H - Last Filed: 08/27/18 14:11> Objective - Vital Signs/Intake and Output Vital Signs (last 24 hours): Temp Pulse Resp BP Pulse Ox 98.6 F 101 H 20 94/67 L 98 08/27/18 10:15 08/27/18 10:15 08/27/18 10:15 08/27/18 10:15 08/27/18 10:15 Intake and Output: 08/27/18 08/27/18 06:59 18:59 Intake Total 880 100 Balance 880 100 - Medications Medications: Current Medications Acetaminophen (Tylenol 325mg Tab) 650 mg PO Q6 PRN PRN Reason: Fever >100.4 F or pain Last Admin: 08/23/18 03:32 Dose: 650 mg Albuterol/Ipratropium (Duoneb 3 Mg/0.5 Mg (3 Ml) Ud) 3 ml INH RQ6 [facility] Last Admin: 08/27/18 07:32 Dose: Not Given Apixaban (Eliquis) 10 mg PO Q12 [facility] Stop: 09/02/18 14:01 Aspirin (Aspirin Chewable) 81 mg PO DAILY [facility] Last Admin: 08/27/18 12:12 Dose: 81 mg Benzocaine/Menthol (Cepacol Sore Throat) 1 naheed MT Q4 PRN PRN Reason: Sore Throat Last Admin: 08/22/18 17:41 Dose: 1 naheed Clopidogrel Bisulfate (Plavix) 75 mg PO DAILY [facility] Last Admin: 08/27/18 12:08 Dose: 75 mg Famotidine (Pepcid) 20 mg PO DAILY [facility] Last Admin: 08/27/18 12:08 Dose: 20 mg Guaifenesin (Robitussin) 100 mg PO Q4H PRN PRN Reason: Cough Last Admin: 08/25/18 00:40 Dose: 100 mg Ferric Sodium Gluconate Complex 125 mg/ Sodium Chloride 110 mls @ 110 mls/hr IVPB Q24H [facility] Stop: 08/28/18 14:01 Last Admin: 08/26/18 13:48 Dose: 110 mls/hr Metoprolol Tartrate (Lopressor) 50 mg PO BID [facility] Last Admin: 08/27/18 10:35 Dose: Not Given Nitroglycerin (Nitro-Bid 2% Oint) 1 ea TOP Q6H [facility] Last Admin: 08/27/18 12:17 Dose: Not Given Rosuvastatin Calcium (Crestor) 10 mg PO HS [facility] Last Admin: 08/26/18 22:08 Dose: 10 mg Saccharomyces Boulardii (Florastor) 250 mg PO BID [facility] Last Admin: 08/27/18 12:07 Dose: 250 mg - Labs Labs: 08/27/18 06:32 08/27/18 06:32 PT 18.0 SECONDS (9.7-12.2) H 08/27/18 06:32 INR 1.6 08/27/18 06:32 APTT 83 SECONDS (21-34) H D 08/26/18 05:53 Attending/Attestation - Attestation I have personally seen and examined this patient.: Yes I have fully participated in the care of the patient.: Yes I have reviewed all pertinent clinical information, including history, physical exam and plan: Yes Notes (Text): 08/27/18 14:00 Medical attending: Patient was seen and examined by me with the medical residen ts earlier in the morning. The patient was not in any acute distress when I came and saw the patient The patient's family member was faithfully at bedside. The patient's creatine was again decreased and now in normal range. Today we she was able to walk without becoming dizzy or nausea when she walked. With a land surveying survey worker we informed the family that possibly the patient could be discharged soon provided that her lab work remains stable Her dose of Eliquis was increased to 10 BID for next 7 days. Also if the patient is discharged in the next few days they need the entire discharge summary given to them to bring back to their home country. Per translation, the patient says they can afford the Eliquis in their home country. They also asked about how long she should wait before flying - and we explained to them that she should at least have outpatient follow up in clinic before leaving for their [place]. Torin Velez
--- NOTE | 2018-08-27 11:30 | CP.PCM.PN ---
<Linwood Wheeler - Last Filed: 08/27/18 17:10> Subjective - Date & Time of Evaluation Date of Evaluation: 08/27/18 Time of Evaluation: 12:05 - Subjective Subjective: Linwood Wheeler PGY-[address] Ba Patient seen and evaluated at bedside. Patient transferred earlier this morning and currently sitting comfortably in chair. Patient reports no acute events or complaints overnight. Patient reports improved ambulation and shortness of breath. Denies CP, palpitations, dizziness and headaches. Objective - Vital Signs/Intake and Output Vital Signs (last 24 hours): Temp Pulse Resp BP Pulse Ox 98.8 F 99 H 26 H 100/64 100 08/27/18 04:00 08/27/18 04:00 08/27/18 04:00 08/27/18 04:00 08/27/18 04:00 Intake and Output: 08/27/18 08/27/18 06:59 18:59 Intake Total 880 Balance 880 - Medications Medications: Current Medications Acetaminophen (Tylenol 325mg Tab) 650 mg PO Q6 PRN PRN Reason: Fever >100.4 F or pain Last Admin: 08/23/18 03:32 Dose: 650 mg Albuterol/Ipratropium (Duoneb 3 Mg/0.5 Mg (3 Ml) Ud) 3 ml INH RQ6 [facility] Last Admin: 08/27/18 07:32 Dose: Not Given Apixaban (Eliquis) 2.5 mg PO Q12 [facility] Last Admin: 08/26/18 22:08 Dose: 2.5 mg Aspirin (Aspirin Chewable) 81 mg PO DAILY [facility] Last Admin: 08/26/18 10:27 Dose: 81 mg Benzocaine/Menthol (Cepacol Sore Throat) 1 naheed MT Q4 PRN PRN Reason: Sore Throat Last Admin: 08/22/18 17:41 Dose: 1 naheed Clopidogrel Bisulfate (Plavix) 75 mg PO DAILY [facility] Last Admin: 08/26/18 10:27 Dose: 75 mg Famotidine (Pepcid) 20 mg PO DAILY [facility] Last Admin: 08/26/18 10:28 Dose: 20 mg Guaifenesin (Robitussin) 100 mg PO Q4H PRN PRN Reason: Cough Last Admin: 08/25/18 00:40 Dose: 100 mg Ferric Sodium Gluconate Complex 125 mg/ Sodium Chloride 110 mls @ 110 mls/hr IVPB Q24H [facility] Stop: 08/28/18 14:01 Last Admin: 08/26/18 13:48 Dose: 110 mls/hr Metoprolol Tartrate (Lopressor) 50 mg PO BID [facility] Last Admin: 08/26/18 17:30 Dose: 50 mg Nitroglycerin (Nitro-Bid 2% Oint) 1 ea TOP Q6H [facility] Last Admin: 08/27/18 06:28 Dose: Not Given Rosuvastatin Calcium (Crestor) 10 mg PO HS [facility] Last Admin: 08/26/18 22:08 Dose: 10 mg Saccharomyces Boulardii (Florastor) 250 mg PO BID [facility] Last Admin: 08/26/18 17:30 Dose: 250 mg - Labs Labs: 08/27/18 06:32 08/27/18 06:32 PT 18.0 SECONDS (9.7-12.2) H 08/27/18 06:32 INR 1.6 08/27/18 06:32 APTT 83 SECONDS (21-34) H D 08/26/18 05:53 - Additional Findings Additional findings: Respiratory Exam Respiratory Exam: absent: Respiratory Distress Additional comments: Expiratory wheezes on R lung - Additional Findings Additional findings: - Constitutional Appears: No Acute Distress, Unkempt, Chronically Ill - Head Exam Head Exam: NORMAL INSPECTION Additional comments: echymosis as before, unchanged - Eye Exam Additional comments: Echymosis noted - as before. - ENT Exam Additional comments: No longer has any TLC or permacath line - Cardiovascular Exam Cardiovascular Exam: Tachy 108 on monitor, improved - GI/Abdominal Exam GI & Abdominal Exam: Soft, Normal Bowel Sounds - Neurological Exam Neurological Exam: Alert, Awake, Oriented x3 Neuro motor strength exam: Left Upper Extremity: 4, Right Upper Extremity: 4 - Skin Skin Exam: Normal Color, Warm Additional comments: Echymois forehead, neck and chest Assessment and Plan - Assessment and Plan (Free Text) Assessment: Assessment: 48 F with PMHx of anxiety who experienced syncopal episode and found to have bilateral pulmonary embolism, A. fib and coronary artery dissection. Plan: Bilateral Pulmonary Embolisms, CHF, coronary artery dissection -Has transitioned to Eliquis, will increase to 5 mg BID, bleeding risks discussed. Renal function much improved -cardiac cath on 08/10 showed EF 45-50%, spontaneous coronary dissection of the right coronary and distal posterior left ventricular occlusion 99% stenosis -currently ASA 81mg, plavix 75mg, metoprolol XL 50mg BID, crestor 10mg -echo showed LVEF 50-55%, mild to moderate TR and pulmonary hypertension, Repeat BNP [id number] elevated, Lasix DC'ed per Nephro Paroxysmal A. fib with RVR -EKG on admission showed Afib with RVR at 146bpm, uncertain if new finding -most recent EKG shows sinus tachy at 122, today sinus tachy at 107 -continue B-lennox Dispo: Patient downgraded earlier today Patient seen, case discussed, further recommendations per Dr. Ba. Linwood Wheeler, PGY-1 <Ignacio Ba - Last Filed: 08/28/18 23:45> Objective - Vital Signs/Intake and Output Vital Signs (last 24 hours): Temp Pulse Resp BP Pulse Ox 98.6 F 100 H 20 93/63 L 98 08/28/18 15:00 08/28/18 16:00 08/28/18 15:00 08/28/18 15:00 08/28/18 15:00 - Medications Medications: Current Medications Acetaminophen (Tylenol 325mg Tab) 650 mg PO Q6 PRN PRN Reason: Fever >100.4 F or pain Last Admin: 08/28/18 08:33 Dose: 650 mg Albuterol/Ipratropium (Duoneb 3 Mg/0.5 Mg (3 Ml) Ud) 3 ml INH RQ6 [facility] Last Admin: 08/28/18 19:41 Dose: 3 ml Apixaban (Eliquis) 10 mg PO Q12 [facility] Stop: 09/02/18 14:01 Last Admin: 08/28/18 21:44 Dose: 10 mg Benzocaine/Menthol (Cepacol Sore Throat) 1 naheed MT Q4 PRN PRN Reason: Sore Throat Last Admin: 08/22/18 17:41 Dose: 1 naheed Carvedilol (Coreg) 3.125 mg PO BID [facility] Last Admin: 08/28/18 18:02 Dose: Not Given Clopidogrel Bisulfate (Plavix) 75 mg PO DAILY [facility] Famotidine (Pepcid) 20 mg PO DAILY [facility] Last Admin: 08/28/18 09:30 Dose: 20 mg Guaifenesin (Robitussin) 100 mg PO Q4H PRN PRN Reason: Cough Last Admin: 08/27/18 20:08 Dose: 100 mg Magnesium Oxide (Mag-Ox) 400 mg PO BID [facility] Last Admin: 08/28/18 17:40 Dose: 400 mg Rosuvastatin Calcium (Crestor) 10 mg PO HS [facility] Last Admin: 08/28/18 21:44 Dose: 10 mg Saccharomyces Boulardii (Florastor) 250 mg PO BID [facility] Last Admin: 08/28/18 17:40 Dose: 250 mg - Labs Labs: 08/28/18 07:24 08/28/18 07:24 PT 26.1 SECONDS (9.7-12.2) H D 08/28/18 07:24 INR 2.4 D 08/28/18 07:24 APTT 83 SECONDS (21-34) H D 08/26/18 05:53 Assessment and Plan (1) Pulmonary congestion Status: Acute (2) Coronary artery dissection Status: Chronic (3) Renal failure Status: Acute (4) Acute respiratory failure with hypoxemia Status: Acute (5) NSTEMI (non-ST elevated myocardial infarction) Status: Resolved (6) Pulmonary embolism Status: Resolved Attending/Attestation - Attestation I have personally seen and examined this patient.: Yes I have fully participated in the care of the patient.: Yes I have reviewed all pertinent clinical information, including history, physical exam and plan: Yes
[2018-08-27] MEDS: Saccharomyces Boulardi 250 mg Cap PO SCH ×2 (12:07→17:38)
[2018-08-27 12:15] VITALS: RESP 20
--- NOTE | 2018-08-27 12:15 | CARD ---
APPROVED REPORT Date of service: 08/23/2018 EKG Measurement Heart [id number] <Conclusion> Normal sinus rhythm Nonspecific T wave abnormality Prolonged QT Abnormal ECG
[2018-08-27] MEDS: Ferric Sodium Gluconat Complex 125 MG in Sodium Chloride 0.9% 100 ML IVPB SCH (14:18)
[2018-08-27] MEDS: guaiFENesin 100 mg/5 ml Syrup UD PO PRN (20:08)
[2018-08-28] MEDS: Albuterol-Ipratrop 3 mg / 0.5 (3 ml) UD INH SCH ×4 (02:41→19:41)
[2018-08-28] MEDS: Nitroglycerin 2% Ointment Foilpak UD TOP SCH ×2 (05:22)
[2018-08-28 07:38] LABS: BASO # 0.1 K/uL (0.0-0.2); MONO # 0.5 K/uL (0.0-0.8)
[2018-08-28 07:46] LABS: INR 2.4; PROTHROMBIN TIME 26.1 SECONDS (9.7-12.2)
[2018-08-28 08:04] LABS: BASO % 0.8 % (0.0-2.0); EOS % 0.7 % (0.0-4.0); LYMPH % 47.9 % (20.0-40.0); MEAN CORPUSCULAR HEMOGLOBIN 26.9 pg (27.0-31.0); MEAN CORPUSCULAR HGB CONC 33.5 g/dL (33.0-37.0); MEAN PLATELET VOLUME 8.5 fL (7.2-11.7); MONO % 8.2 % (0.0-10.0); NEUT # 2.6 K/uL (1.8-7.0); NEUT % 42.4 % (50.0-75.0); NRBC % 0.1 % (0.0-2.0); RBC 2.96 Mil/uL (3.80-5.20); RED CELL DISTRIBUTION WIDTH 19.9 % (11.5-14.5); WHITE BLOOD COUNT 6.2 K/uL (4.8-10.8)
[2018-08-28 08:07] LABS: MEAN CELL VOLUME 80.2 fL (81.0-99.0)
[2018-08-28 09:19] LABS: ALB/GLOB RATIO 0.9 (1.0-2.1); ALBUMIN 3.1 g/dL (3.5-5.0); ALT/SGPT 46 U/L (9-52); AST/SGOT 53 U/L (14-36); BLOOD UREA NITROGEN 14 mg/dL (7-17); CALCIUM 8.5 mg/dl (8.6-10.4); GFR NON-AFRICAN AMERICAN 60
--- NOTE | 2018-08-28 09:46 | CP.PCM.DIS ---
Provider - Provider Date of Admission: 07/27/18 03:33 Attending physician: Matthew Najera MD Consults: 45 Time Spent in preparation of Discharge (in minutes): 45 Diagnosis - Discharge Diagnosis (1) Acute renal failure Status: Resolved (2) Cardiac arrhythmia Status: Resolved (3) Cardiorespiratory arrest Status: Resolved (4) Coronary artery dissection Status: Chronic (5) DVT (deep venous thrombosis) Status: Resolved (6) NSTEMI (non-ST elevated myocardial infarction) Status: Resolved (7) Pulmonary embolism Status: Resolved (8) Sepsis Status: Resolved Hospital Course - Lab Results Lab Results: Micro Results 08/27/18 07:26 Blood-Venous Blood Culture - Preliminary NO GROWTH AFTER 24 HOURS 08/27/18 07:26 Blood-Venous Blood Culture - Preliminary NO GROWTH AFTER 24 HOURS 08/21/18 12:26 Blood Blood Culture - Final NO GROWTH AFTER 5 DAYS 08/21/18 12:26 Blood Gram Stain - Final TEST NOT PERFORMED 08/21/18 12:26 Blood Blood Culture - Final NO GROWTH AFTER 5 DAYS 08/21/18 12:26 Blood Gram Stain - Final TEST NOT PERFORMED 08/21/18 12:26 Urine,Clean Catch Urine Culture - Final MULTIPLE SPECIES. SUGGEST REPEAT SPECIMEN. 08/18/18 09:24 Naris MRSA Culture (Admit) - Final MRSA NOT DETECTED 08/14/18 18:55 Nose MRSA Culture - Final MRSA NOT DETECTED 08/11/18 10:31 Urine,Becerril Urine Culture - Final Yeast Species 08/08/18 15:21 Naris MRSA Culture (Admit) - Final MRSA NOT DETECTED 08/02/18 17:46 Stool Stool Culture - Final NO SALMONELLA, SHIGELLA OR CAMPYLOBACTER ISOLATED. 08/02/18 17:46 Stool Ova and Parasite Concentrate Exam - Final 07/27/18 10:29 Blood-Venous Blood Culture - Final NO GROWTH AFTER 5 DAYS 07/27/18 10:29 Blood-Venous Gram Stain - Final TEST NOT PERFORMED 07/27/18 10:04 Blood-Venous Blood Culture - Final NO GROWTH AFTER 5 DAYS 07/27/18 10:04 Blood-Venous Gram Stain - Final TEST NOT PERFORMED 07/29/18 00:28 Sputum Gram Stain - Final 07/29/18 00:28 Sputum Sputum Culture - Final Yeast Species 07/27/18 18:26 Stool Stool Culture - Final NO SALMONELLA, SHIGELLA OR CAMPYLOBACTER ISOLATED. 07/27/18 09:18 Naris MRSA Culture (Admit) - Final MRSA NOT DETECTED 07/27/18 05:31 Urine,Catheterized Urine Culture - Final No Growth (<1,000 CFU/ML) Most Recent Lab Values WBC 6.2 K/uL (4.8-10.8) 08/28/18 07:24 RBC 2.96 Mil/uL (3.80-5.20) L 08/28/18 07:24 Hgb 8.0 g/dL (11.0-16.0) L 08/28/18 07:24 Hct 23.7 % (34.0-47.0) L 08/28/18 07:24 MCV 80.2 fL (81.0-99.0) L D 08/28/18 07:24 MCH 26.9 pg (27.0-31.0) L 08/28/18 07:24 MCHC 33.5 g/dL (33.0-37.0) 08/28/18 07:24 RDW 19.9 % (11.5-14.5) H 08/28/18 07:24 Plt Count 213 K/uL (130-400) 08/28/18 07:24 MPV 8.5 fL (7.2-11.7) 08/28/18 07:24 Neut % (Auto) 42.4 % (50.0-75.0) L 08/28/18 07:24 Lymph % (Auto) 47.9 % (20.0-40.0) H 08/28/18 07:24 Carolina % (Auto) 8.2 % (0.0-10.0) 08/28/18 07:24 Eos % (Auto) 0.7 % (0.0-4.0) 08/28/18 07:24 Baso % (Auto) 0.8 % (0.0-2.0) 08/28/18 07:24 Neut # (Auto) 2.6 K/uL (1.8-7.0) 08/28/18 07:24 Lymph # (Auto) 3.0 K/uL (1.0-4.3) 08/28/18 07:24 Carolina # (Auto) 0.5 K/uL (0.0-0.8) 08/28/18 07:24 Eos # (Auto) 0.0 K/uL (0.0-0.7) 08/28/18 07:24 Baso # (Auto) 0.1 K/uL (0.0-0.2) 08/28/18 07:24 Neutrophils % (Manual) 52 % (50-75) 08/22/18 06:01 Band Neutrophils % 3 % (0-2) H 08/22/18 06:01 Lymphocytes % (Manual) 33 % (20-40) 08/22/18 06:01 Reactive Lymphs % 2 % (0-0) H 08/22/18 06:01 Monocytes % (Manual) 4 % (0-10) 08/22/18 06:01 Eosinophils % (Manual) 3 % (0-4) 08/22/18 06:01 Basophils % (Manual) 1 % (0-2) 08/22/18 06:01 Metamyelocytes % 1 % (0-0) H 08/22/18 06:01 Myelocytes % 1 % (0-0) H 08/22/18 06:01 Nucleated RBC % 3 % (0-0) H 08/03/18 06:52 Toxic Granulation Present 08/09/18 06:10 Platelet Estimate Normal (NORMAL) 08/22/18 06:01 Large Platelets Present 08/22/18 06:01 Giant Platelets Present 08/19/18 06:34 RBC Morphology Normal 07/27/18 18:26 Polychromasia Slight 08/22/18 06:01 Hypochromasia (manual) Slight 08/19/18 06:34 Poikilocytosis (manual Slight 08/22/18 06:01 Basophilic Stippling Slight 07/28/18 10:31 Anisocytosis (manual) Slight 08/22/18 06:01 Microcytosis (manual) Slight 08/22/18 06:01 Macrocytosis (manual) Slight 08/22/18 06:01 Spherocytes Slight 08/22/18 06:01 Target Cells Slight 08/19/18 06:34 Tear Drop Cells Slight 08/22/18 06:01 Ovalocytes Slight 08/22/18 06:01 Preemption Cells Slight 08/22/18 06:01 Acanthocytes (Spur) Slight 08/19/18 06:34 Schistocytes Slight 08/22/18 06:01 ESR 25 mm/hr (0-20) H 08/07/18 22:58 PT 26.1 SECONDS (9.7-12.2) H D 08/28/18 07:24 INR 2.4 D 08/28/18 07:24 APTT 83 SECONDS (21-34) H D 08/26/18 05:53 Thrombin Time 37 sec (13-19) H 08/08/18 11:36 Fibrinogen 439 mg/dL (200-400) H 07/30/18 11:34 Fibrin Degrad Products Positive (NEGATIVE) H 07/27/18 10:17 Fibrin Degrad Prod, Qt >40 ug/mL (<10) H 07/27/18 10:17 D-Dimer, Quantitative 1246 ng/mlDDU (0-243) H 08/23/18 04:34 Lupus Anticoagulant see note 08/08/18 11:36 LA PTT Screen 100 sec (<=40) H 08/08/18 11:36 dRVVT Mixing Study 37 sec (<=45) 08/08/18 11:36 dRVVT Mix Interpret Not indicated 08/08/18 11:36 Hexagonal Phase Confirm Weak positive (Negative) H 08/08/18 11:36 Antithrombin III Ag 53 % (80-120) L 08/10/18 08:30 Antithrombin III Activ 54 % activity (80-120) L 08/10/18 08:30 Puncture Site Rr 07/31/18 05:20 pCO2 25 mm/Hg (35-45) L 07/31/18 05:20 pO2 220 mm/Hg (80-100) H 07/31/18 05:20 HCO3 23.9 mmol/L (21-28) 07/31/18 05:20 ABG pH 7.53 (7.35-7.45) H 07/31/18 05:20 ABG Total CO2 21.7 mmol/L (22-28) L 07/31/18 05:20 ABG O2 Saturation 99.3 % (95-98) H 07/31/18 05:20 ABG Base Excess -1.4 mmol/L (-2.0-3.0) 07/31/18 05:20 ABG Hemoglobin 7.1 g/dL (11.7-17.4) L 07/31/18 05:20 ABG Carboxyhemoglobin 0.8 % (0.5-1.5) 07/31/18 05:20 POC ABG HHb (Measured) 0.7 % (0.0-5.0) 07/31/18 05:20 ABG Methemoglobin 0.8 % (0.0-3.0) 07/31/18 05:20 Bryce Test Pos 07/31/18 05:20 ABG Potassium 3.2 mmol/L (3.6-5.2) L 07/28/18 16:34 VBG pH 7.39 (7.32-7.43) 07/29/18 10:39 VBG pCO2 26 mmHg (40-60) L 07/29/18 10:39 VBG HCO3 18.4 mmol/L 07/29/18 10:39 VBG Total CO2 16.5 mmol/L (22-28) L 07/29/18 10:39 VBG O2 Sat (Calc) 80.1 % (40-65) H 07/29/18 10:39 VBG Base Excess -7.6 mmol/L (0.0-2.0) L 07/29/18 10:39 VBG Potassium 1.8 mmol/L (3.6-5.2) L* 07/29/18 10:39 A-a O2 Difference 105.0 mm/Hg 07/31/18 05:20 Respiratory Index 0.5 07/31/18 05:20 Hgb O2 Saturation 97.8 % (95.0-98.0) 07/31/18 05:20 Sodium 157.0 mmol/l (132-148) H 07/29/18 10:39 Chloride 133.0 mmol/L (98-107) H 07/29/18 10:39 Glucose 94 mg/dl (65-105) 07/29/18 10:39 Lactate 1.5 mmol/L (0.7-2.1) 07/29/18 10:39 Vent Mode Prvc 07/31/18 05:20 Mechanical Rate 20 07/31/18 05:20 FiO2 50.0 % 07/31/18 05:20 Tidal Volume 500 07/31/18 05:20 PEEP 5 07/31/18 05:20 Crit Value Called To Dr kurtz 07/29/18 10:39 Crit Value Called By Philip holliday drill operator pneumatic 07/29/18 10:39 Crit Value Read Back Y 07/29/18 10:39 Blood Gas Notified Time 1045 07/29/18 10:39 Sodium 139 mmol/L (132-148) 08/28/18 07:24 Potassium 3.9 mmol/L (3.6-5.2) 08/28/18 07:24 Chloride 110 mmol/L (98-107) H 08/28/18 07:24 Carbon Dioxide 21 mmol/L (22-30) L 08/28/18 07:24 Anion Gap 12 (10-20) 08/28/18 07:24 BUN 14 mg/dL (7-17) 08/28/18 07:24 Creatinine 1.0 mg/dL (0.7-1.2) 08/28/18 07:24 Est GFR ( Amer) > 60 08/28/18 07:24 Est GFR (Non-Af Amer) 60 08/28/18 07:24 POC Glucose (mg/dL) 213 mg/dL (65-110) H 08/18/18 21:16 Random Glucose 87 mg/dL (65-105) 08/28/18 07:24 Lactic Acid 2.9 mmol/L (0.7-2.1) H 07/29/18 18:23 Calcium 8.5 mg/dl (8.6-10.4) L 08/28/18 07:24 Phosphorus 4.1 mg/dL (2.5-4.5) 08/28/18 07:24 Magnesium 1.5 mg/dL (1.6-2.3) L 08/28/18 07:24 Iron 59 ug/dL (37-170) 08/26/18 10:48 TIBC 230 ug/dL (250-450) L 08/26/18 10:48 % Saturation 26 (20-55) 08/26/18 10:48 Ferritin 584.0 ng/mL 08/27/18 06:32 Total Bilirubin 0.5 mg/dL (0.2-1.3) 08/28/18 07:24 AST 53 U/L (14-36) H D 08/28/18 07:24 ALT 46 U/L (9-52) 08/28/18 07:24 Alkaline Phosphatase 111 U/L (38-126) 08/28/18 07:24 Total Creatine Kinase 113 U/L (30-135) 08/23/18 04:34 CK-MB (Mass) 3.48 ng/mL (0.0-3.38) H 08/23/18 04:34 Troponin I 0.1200 ng/mL (0.00-0.120) 08/23/18 04:34 C-React Prot High Sens > 15.00 mg/L (1.00-3.00) H 08/07/18 22:58 NT-Pro-B Natriuret Pep 4260 pg/mL (0-450) H 08/27/18 06:32 Total Protein 6.6 g/dL (6.3-8.3) 08/28/18 07:24 Albumin 3.1 g/dL (3.5-5.0) L 08/28/18 07:24 Globulin 3.5 gm/dL (2.2-3.9) 08/28/18 07:24 Albumin/Globulin Ratio 0.9 (1.0-2.1) L 08/28/18 07:24 Bxrdd-2-Wfulxryqh 6.3 Relative % 08/10/18 08:00 Dkjfs-0-Fvyapcpml 25.8 Relative % 08/10/18 08:00 Beta Globulins 19.2 Relative % 08/10/18 08:00 Gamma Globulins 21.9 Relative % 08/10/18 08:00 Triglycerides 100 mg/dL (0-149) 08/08/18 06:19 Cholesterol 101 mg/dL (0-199) 08/08/18 06:19 LDL Cholesterol Direct 46 mg/dL (0-129) 08/08/18 06:19 HDL Cholesterol 40 mg/dL (30-70) 08/08/18 06:19 Amylase 171 U/L (30-110) H 07/27/18 02:16 Lipase 207 U/L (23-300) 07/27/18 02:16 Vitamin B12 508 pg/mL (239-931) 08/26/18 10:48 Procalcitonin 2.81 NG/ML (0.19-0.49) H 08/20/18 17:55 Free T4 1.95 ng/dL (0.78-2.19) 08/18/18 07:37 TSH 3rd Generation 4.07 mIU/L (0.46-4.68) 08/18/18 07:37 Arterial Blood Potassium 3.2 mmol/L (3.6-5.2) L 07/28/18 16:34 Venous Blood Potassium 1.8 mmol/L (3.6-5.2) L* 07/29/18 10:39 Urine Color Straw (YELLOW) 08/21/18 15:30 Urine Clarity Clear (Clear) 08/21/18 15:30 Urine pH 6.0 (5.0-8.0) 08/21/18 15:30 Ur Specific [place] 1.006 (1.003-1.030) 08/21/18 15:30 Urine Protein Negative mg/dL (NEGATIVE) 08/21/18 15:30 Urine Glucose (UA) Normal mg/dL (Normal) 08/21/18 15:30 Urine Ketones Negative mg/dL (NEGATIVE) 08/21/18 15:30 Urine Blood 1+ (NEGATIVE) H 08/21/18 15:30 Urine Nitrate Negative (NEGATIVE) 08/21/18 15:30 Urine Bilirubin Negative (NEGATIVE) 08/21/18 15:30 Urine Urobilinogen Normal mg/dL (0.2-1.0) 08/21/18 15:30 Ur Leukocyte Esterase Neg Jessica/uL (Negative) 08/21/18 15:30 Urine WBC (Auto) 3 /hpf (0-5) 08/21/18 15:30 Urine RBC (Auto) 3 /hpf (0-3) 08/21/18 15:30 Ur Squamous Epith Cells < 1 /hpf (0-5) 08/21/18 15:30 Amorphous Sediment Rare /ul (<OCC) H 08/18/18 19:33 Urine Bacteria Mod (<OCC) H 08/21/18 15:30 Urine Yeast (Budding) Many /hpf (NEGATIVE) H 08/11/18 10:31 U Random Total Protein 2640 mg/g creat (21-161) H 08/08/18 18:14 Urine Creatinine 0.74 g/L 08/10/18 08:00 Ur Creatinine 24 Hour 0.75 g/24 h (0.63-2.50) 08/10/18 08:00 Ur Microalbumin mg/dl 17.3 mg/dL 08/10/18 07:34 Ur Microalbumin mcg/min 122 mcg/min (<20) H 08/10/18 07:34 Ur Microalbumin 24 Hr 176 mg/24 h (<30) H 08/10/18 07:34 U Creat (Microalbumin) 0.73 g/L 08/10/18 07:34 Microalb/Creat Ratio 24 235 08/10/18 07:34 Ur Total Protein 24 Hr 1632 mg/24 h (<150) H 08/10/18 08:00 Protein/Creat Ratio 24h 2162 mg/g creat (</=84) H 08/10/18 08:00 Urine Total Protein 1600 mg/L (50-240) H 08/10/18 08:00 Urine Albumin (PEP) 26.8 Relative % 08/10/18 08:00 Ur Protein Fractions See note 08/10/18 08:00 Urine HCG, Qual Negative (NEGATIVE) 08/10/18 09:51 Stool Occult Blood Positive (NEGATIVE) 08/16/18 13:19 Stool Occult Blood #2 Positive (NEGATIVE) 08/16/18 13:19 Stool Leukocytes, Qual Negative (NEGATIVE) 07/27/18 18:26 Vancomycin Trough < 5.0 ug/mL (5.0-10.0) L 08/21/18 11:56 Random Vancomycin 9.4 ug/mL 08/24/18 05:56 Urine Opiates Screen Negative (NEGATIVE) 07/27/18 04:01 Urine Methadone Screen Negative (NEGATIVE) 07/27/18 04:01 Ur Barbiturates Screen Negative (NEGATIVE) 07/27/18 04:01 Ur Phencyclidine Scrn Negative (NEGATIVE) 07/27/18 04:01 Ur Amphetamines Screen Negative (NEGATIVE) 07/27/18 04:01 U Benzodiazepines Scrn Negative (NEGATIVE) 07/27/18 04:01 U Oth Cocaine Metabols Negative (NEGATIVE) 07/27/18 04:01 U Cannabinoids Screen Negative (NEGATIVE) 07/27/18 04:01 [place] 6 Profile Negative (NEGATIVE) 08/10/18 08:30 [place] Nuclear Membr Pat Negative (Negative) 08/07/18 09:33 ANCA Screen Negative (NEGATIVE) 08/07/18 10:37 c-ANCA Titer TNP 08/07/18 10:37 Proteinase 3 (PR3) <1.0 AI (<1.0) 08/07/18 10:37 p-ANCA Titer TNP 08/07/18 10:37 Atypical p-ANCA Titer TNP 08/07/18 10:37 Myeloperoxidase Ab <1.0 AI (<1.0) 08/07/18 10:37 ADULT AND PEDIATRIC NEUROLOGIST Antibody <1.0 AI (<1.0) 08/10/18 08:30 ADULT AND PEDIATRIC NEUROLOGIST Antibody Interp Negative (Negative) 08/10/18 08:30 Scl-70 Scleroderma Ab <1.0 AI (<1.0) 08/10/18 08:30 Sjqn-8-Zoglgjkfykbm Ab <9 SARANYA (<=20) 08/10/18 06:02 Beta-2 GPI IgG Ab <9 SGU (<=20) 08/10/18 06:02 Beta-2 GPI IgM Ab <9 SMU (<=20) 08/10/18 06:02 Beta-2-GPI IgG Ab <9 SGU (<=20) 08/08/18 10:05 Beta-2-GPI IgA Ab <9 SARANYA (<=20) 08/08/18 10:05 Beta-2-GPI IgM Ab <9 SMU (<=20) 08/08/18 10:05 Glomerular Base Mem IgG <1.0 AI (<1.0) 08/19/18 06:35 Phosphatidylserine IgG <10 U/mL (<10) 08/10/18 06:02 Phosphatidylserine IgA <20 U/mL (<20) 08/10/18 06:02 Phosphatidylserine IgM <25 U/mL (<25) 08/10/18 06:02 Anti-Phospholipid Intrp see note 08/10/18 06:02 Anti-Cardiolipin IgG Ab <14 GPL (<=14) 08/10/18 06:02 Anti-Cardiolipin IgA Ab <11 APL (<=11) 08/10/18 06:02 Anti-Cardiolipin IgM Ab <12 MPL (<=12) 08/10/18 06:02 Complement C3 55.0 mg/dL (88.0-165.0) L 08/14/18 06:46 Complement C4 18.3 mg/dL (14.0-44.0) 08/14/18 06:46 Tot Complement (CH50) 37 U/mL (31-60) 08/08/18 06:19 C. difficile Ag & Toxin Negative (NEGATIVE) 08/07/18 21:29 Hep Bs Antigen Negative (NEGATIVE) 08/01/18 11:37 Hep Bs Antibody Positive (NEGATIVE) 08/01/18 11:37 Hep B Core IgM Ab Negative (NEGATIVE) 08/01/18 11:37 Hepatitis C Antibody Negative (NEGATIVE) 08/01/18 11:37 HIV 1&2 Antibody Screen Negative (NEGATIVE) 08/10/18 08:30 Salmonella H Type A Equivocal H 07/27/18 18:26 Salmonella H Type B Equivocal H 07/27/18 18:26 Salmonella H Type D Equivocal H 07/27/18 18:26 Salmonella O Type D Negative 07/27/18 18:26 Salmonella O Type Vi Equivocal H 07/27/18 18:26 Blood Type A POSITIVE 08/21/18 11:56 Blood Type Confirm A POSITIVE 07/27/18 19:40 Antibody Screen Negative 08/21/18 11:56 - Hospital Course Hospital Course: HPI: Patient is a 48 year old [place] female with past medical history of anxiety who was brought in by EMS for shortness of breath and syncope. Patient's Niece's is at the bedside providing the history. Per the family, the patient travelled to [place] the morning of 07/26 at approximately 9am via bus ride for a mandaen event. Patient returned at approximately 1am on 07/27 from [place] via bus. She walked up the stairs of the apartment complex and had a syncopal event in the lobby. Syncopal event was witnessed by the door man who called EMS. Patient hit her head but it is unclear if she lost consciousness. When family arrived to the scene, patient was complaining of shortness of breath and was extremely anxious. While in the ED, patient still complaining of shortness of breath and now reports having chest/epigastric pain. Patient re peatedly asking to use the bathroom because she wanted to move her bowels. Patient was noted to be in AFib with a rate of 156, patient was given Cardizem and Morphine. Patient calmed down. Patient went into respiratory distress with severe bradycardia, ACLS was done. Patient was intubated and transferred to the ICU for further management. ROS not obtained. PMD: None Allergies: NKDA Medical History: Anxiety Medications: Protonix 40mg PO daily, Cipro 500mg PO, Drospirenona/etinilestradiol 3mg/0.02mg Surgical History: Bariatric surgery, C/S x 2 Social History: Denies alcohol, tobacco, drug use; recently came from [place] 2 months ago, lives with niece and her Family History: Unobtainable Hospital Course: Pt coded while in ED and ACLS was done, ROSC achieved. Pt had sever hypercapnic respiratory Discharge Exam - Head Exam Head Exam: ATRAUMATIC, NORMAL INSPECTION, NORMOCEPHALIC Discharge Plan - Follow Up Plan Condition: GUARDED Disposition: HOME/ ROUTINE
[2018-08-28] MEDS: Saccharomyces Boulardi 250 mg Cap PO SCH ×2 (10:41→17:40)
--- NOTE | 2018-08-28 13:25 | CP.PCM.PN ---
Subjective - Date & Time of Evaluation Date of Evaluation: 08/28/18 Time of Evaluation: 13:16 - Subjective Subjective: Hospitalist Note Pt seen and examined at bedside. Pt feeling well and understand and agrees with plan for discharge tommorw. Pt denies any complaints overnight and hes been tolerating food and physical exertion. Pt denies any changes in bms or urination. Pt denies cp sob fc nv Objective - Vital Signs/Intake and Output Vital Signs (last 24 hours): Temp Pulse Resp BP Pulse Ox 99.5 F 105 H 20 100/65 97 08/28/18 07:42 08/28/18 07:42 08/28/18 07:42 08/28/18 07:42 08/28/18 07:42 - Medications Medications: Current Medications Acetaminophen (Tylenol 325mg Tab) 650 mg PO Q6 PRN PRN Reason: Fever >100.4 F or pain Last Admin: 08/28/18 08:33 Dose: 650 mg Albuterol/Ipratropium (Duoneb 3 Mg/0.5 Mg (3 Ml) Ud) 3 ml INH RQ6 [facility] Last Admin: 08/28/18 08:08 Dose: 3 ml Apixaban (Eliquis) 10 mg PO Q12 [facility] Stop: 09/02/18 14:01 Last Admin: 08/28/18 09:31 Dose: 10 mg Aspirin (Aspirin Chewable) 81 mg PO DAILY [facility] Last Admin: 08/28/18 09:30 Dose: 81 mg Benzocaine/Menthol (Cepacol Sore Throat) 1 naheed MT Q4 PRN PRN Reason: Sore Throat Last Admin: 08/22/18 17:41 Dose: 1 naheed Carvedilol (Coreg) 3.125 mg PO BID [facility] Famotidine (Pepcid) 20 mg PO DAILY [facility] Last Admin: 08/28/18 09:30 Dose: 20 mg Guaifenesin (Robitussin) 100 mg PO Q4H PRN PRN Reason: Cough Last Admin: 08/27/18 20:08 Dose: 100 mg Ferric Sodium Gluconate Complex 125 mg/ Sodium Chloride 110 mls @ 110 mls/hr IVPB Q24H [facility] Stop: 08/28/18 14:01 Last Admin: 08/27/18 14:18 Dose: 110 mls/hr Magnesium Oxide (Mag-Ox) 400 mg PO BID [facility] Rosuvastatin Calcium (Crestor) 10 mg PO HS [facility] Last Admin: 08/27/18 22:02 Dose: 10 mg Saccharomyces Boulardii (Florastor) 250 mg PO BID [facility] Last Admin: 08/27/18 17:38 Dose: 250 mg - Labs Labs: 08/28/18 07:24 08/28/18 07:24 PT 26.1 SECONDS (9.7-12.2) H D 08/28/18 07:24 INR 2.4 D 08/28/18 07:24 APTT 83 SECONDS (21-34) H D 08/26/18 05:53 - Additional Findings Additional findings: - Respiratory Exam Respiratory Exam: absent: Respiratory Distress Additional comments: R lung field abnormal breath sound on expiration - Additional Findings Additional findings: - Constitutional Appears: No Acute Distress, Unkempt, Chronically Ill - Head Exam Head Exam: NORMAL INSPECTION Additional comments: echymosis as before, not changed - Eye Exam Additional comments: Echymosis noted - as before. - ENT Exam Additional comments: No longer has any TLC or permacath line - Cardiovascular Exam Cardiovascular Exam: Tachy 120s on monitor, coming down to 110s - GI/Abdominal Exam GI & Abdominal Exam: Soft, Normal Bowel Sounds - Neurological Exam Neurological Exam: Alert, Awake, Oriented x3 Neuro motor strength exam: Left Upper Extremity: 4, Right Upper Extremity: 4 - Skin Skin Exam: Normal Color, Warm Additional comments: Echymois forehead and neck Assessment and Plan (1) Acute renal failure Status: Resolved (2) Cardiac arrhythmia Status: Resolved (3) Cardiorespiratory arrest Status: Resolved (4) Coronary artery dissection Status: Chronic (5) DVT (deep venous thrombosis) Status: Resolved (6) NSTEMI (non-ST elevated myocardial infarction) Status: Resolved (7) Pulmonary embolism Status: Resolved (8) Sepsis Status: Resolved - Assessment and Plan (Free Text) Assessment: 48yo f s/p yoel PE and RCA dissection seen on cath. likely d/c tmrw, Pt to f/u in clinic 09/04/2018 Acute renal failure likey due to ATN -Per family urine outputs are good. -Creatine 1 this morning. -No kidney biopsy -Dr Henson Nephro consult no longer needs HD no longer needs renal dosing of eliquis 10mg bid for 7 days then 5mg BID afterwards Bilateral PE and DVT -Eliquis 10mg q12 -CTA chest: extensive b/l lower lobe proximal pulmonary emboli distal on margins of R and L pulmonary arteries, lower lobe of branches and proximal segmental - branches b/l. smaller emboli within segmental/subsegmental branches of upper and middle lobes -LE duplex: acute thrombosis of L common femoral vein -ECHO: EF 50-55%, mild to moderate TR and pulmonary HTN Anemia -H&H stable -Dr Vasquez Consulted recs appreciated -Iron 59, TIBC 230, %sat 26 -Low MCV -Last dose of Ferric gluconate IV supplementation today NSTEMI -Currently stable, no chest pain -Previous Cath: RCA spontaneous dissection, Distal posterior left ventricular vessel 100% occlusion, EF 50% -On asprin and crestor and metoprolol Fevers, r/o bacteremia -afebrile, no leukocytosis >96hrs -resolved -off abx -Dr Slater ID recs appreciated -Neg 24hrs blood cultures ordered 08/27 Pneumonia -resolved Anxiety -Xanax PRN GI/DVT ppx: -pepcid 20mg po qd for GI -Eliquis 10mg Po q12 day 2 last dose 09/02 then 5mg BID for 6 months d/w Dr Todd Moran PGY1
[2018-08-28] MEDS: Ferric Sodium Gluconat Complex 125 MG in Sodium Chloride 0.9% 100 ML IVPB SCH (14:38)
[2018-08-28] MEDS: Magnesium Oxide 400 mg Tab UD PO SCH (17:40)
[2018-08-29] MEDS: Albuterol-Ipratrop 3 mg / 0.5 (3 ml) UD INH SCH ×2 (01:16→07:25)
[2018-08-29 07:14] LABS: INR 2.7
[2018-08-29 07:25] LABS: ALB/GLOB RATIO 0.9 (1.0-2.1); ALT/SGPT 44 U/L (9-52); AST/SGOT 43 U/L (14-36); BLOOD UREA NITROGEN 12 mg/dL (7-17); CALCIUM 8.4 mg/dl (8.6-10.4); GFR NON-AFRICAN AMERICAN 60
[2018-08-29 08:02] LABS: BASO # 0.1 K/uL (0.0-0.2); EOS % 0.6 % (0.0-4.0); HEMOGLOBIN 7.8 g/dL (11.0-16.0); LYMPH # 3.3 K/uL (1.0-4.3); LYMPH % 50.9 % (20.0-40.0); MEAN CELL VOLUME 79.7 fL (81.0-99.0); MEAN CORPUSCULAR HEMOGLOBIN 26.6 pg (27.0-31.0); MEAN CORPUSCULAR HGB CONC 33.4 g/dL (33.0-37.0); MEAN PLATELET VOLUME 8.4 fL (7.2-11.7); MONO # 0.5 K/uL (0.0-0.8); MONO % 8.3 % (0.0-10.0); NEUT # 2.5 K/uL (1.8-7.0); NEUT % 39.2 % (50.0-75.0); NRBC % 0.2 % (0.0-2.0); RBC 2.92 Mil/uL (3.80-5.20); RED CELL DISTRIBUTION WIDTH 19.9 % (11.5-14.5); WHITE BLOOD COUNT 6.4 K/uL (4.8-10.8)
[2018-08-29 09:46] VITALS: BP 102/71; TEMP 99.1; O2SAT 98
[2018-08-29] MEDS: Magnesium Oxide 400 mg Tab UD PO SCH (09:57)
[2018-08-29] MEDS: Saccharomyces Boulardi 250 mg Cap PO SCH (09:57)
--- NOTE | 2018-08-29 12:21 | CP.PCM.DIS ---
<Jarrett العلي - Last Filed: 08/29/18 18:06> Provider - Provider Date of Admission: 07/27/18 03:33 Attending physician: Matthew Najera MD Time Spent in preparation of Discharge (in minutes): 45 Hospital Course - Lab Results Lab Results: Micro Results 08/27/18 07:26 Blood-Venous Blood Culture - Preliminary NO GROWTH AFTER 48 HOURS 08/27/18 07:26 Blood-Venous Blood Culture - Preliminary NO GROWTH AFTER 48 HOURS 08/27/18 06:00 Naris MRSA Culture - Final MRSA NOT DETECTED 08/21/18 12:26 Blood Blood Culture - Final NO GROWTH AFTER 5 DAYS 08/21/18 12:26 Blood Gram Stain - Final TEST NOT PERFORMED 08/21/18 12:26 Blood Blood Culture - Final NO GROWTH AFTER 5 DAYS 08/21/18 12:26 Blood Gram Stain - Final TEST NOT PERFORMED 08/21/18 12:26 Urine,Clean Catch Urine Culture - Final MULTIPLE SPECIES. SUGGEST REPEAT SPECIMEN. 08/18/18 09:24 Naris MRSA Culture (Admit) - Final MRSA NOT DETECTED 08/14/18 18:55 Nose MRSA Culture - Final MRSA NOT DETECTED 08/11/18 10:31 Urine,Becerril Urine Culture - Final Yeast Species 08/08/18 15:21 Naris MRSA Culture (Admit) - Final MRSA NOT DETECTED 08/02/18 17:46 Stool Stool Culture - Final NO SALMONELLA, SHIGELLA OR CAMPYLOBACTER ISOLATED. 08/02/18 17:46 Stool Ova and Parasite Concentrate Exam - Final 07/27/18 10:29 Blood-Venous Blood Culture - Final NO GROWTH AFTER 5 DAYS 07/27/18 10:29 Blood-Venous Gram Stain - Final TEST NOT PERFORMED 07/27/18 10:04 Blood-Venous Blood Culture - Final NO GROWTH AFTER 5 DAYS 07/27/18 10:04 Blood-Venous Gram Stain - Final TEST NOT PERFORMED 07/29/18 00:28 Sputum Gram Stain - Final 07/29/18 00:28 Sputum Sputum Culture - Final Yeast Species 07/27/18 18:26 Stool Stool Culture - Final NO SALMONELLA, SHIGELLA OR CAMPYLOBACTER ISOLATED. 07/27/18 09:18 Naris MRSA Culture (Admit) - Final MRSA NOT DETECTED 07/27/18 05:31 Urine,Catheterized Urine Culture - Final No Growth (<1,000 CFU/ML) Most Recent Lab Values WBC 6.4 K/uL (4.8-10.8) 08/29/18 06:51 RBC 2.92 Mil/uL (3.80-5.20) L 08/29/18 06:51 Hgb 7.8 g/dL (11.0-16.0) L 08/29/18 06:51 Hct 23.3 % (34.0-47.0) L 08/29/18 06:51 MCV 79.7 fL (81.0-99.0) L 08/29/18 06:51 MCH 26.6 pg (27.0-31.0) L 08/29/18 06:51 MCHC 33.4 g/dL (33.0-37.0) 08/29/18 06:51 RDW 19.9 % (11.5-14.5) H 08/29/18 06:51 Plt Count 205 K/uL (130-400) 08/29/18 06:51 MPV 8.4 fL (7.2-11.7) 08/29/18 06:51 Neut % (Auto) 39.2 % (50.0-75.0) L 08/29/18 06:51 Lymph % (Auto) 50.9 % (20.0-40.0) H 08/29/18 06:51 Gilliam % (Auto) 8.3 % (0.0-10.0) 08/29/18 06:51 Eos % (Auto) 0.6 % (0.0-4.0) 08/29/18 06:51 Baso % (Auto) 1.0 % (0.0-2.0) 08/29/18 06:51 Neut # (Auto) 2.5 K/uL (1.8-7.0) 08/29/18 06:51 Lymph # (Auto) 3.3 K/uL (1.0-4.3) 08/29/18 06:51 Gilliam # (Auto) 0.5 K/uL (0.0-0.8) 08/29/18 06:51 Eos # (Auto) 0.0 K/uL (0.0-0.7) 08/29/18 06:51 Baso # (Auto) 0.1 K/uL (0.0-0.2) 08/29/18 06:51 Neutrophils % (Manual) 52 % (50-75) 08/22/18 06:01 Band Neutrophils % 3 % (0-2) H 08/22/18 06:01 Lymphocytes % (Manual) 33 % (20-40) 08/22/18 06:01 Reactive Lymphs % 2 % (0-0) H 08/22/18 06:01 Monocytes % (Manual) 4 % (0-10) 08/22/18 06:01 Eosinophils % (Manual) 3 % (0-4) 08/22/18 06:01 Basophils % (Manual) 1 % (0-2) 08/22/18 06:01 Metamyelocytes % 1 % (0-0) H 08/22/18 06:01 Myelocytes % 1 % (0-0) H 08/22/18 06:01 Nucleated RBC % 3 % (0-0) H 08/03/18 06:52 Toxic Granulation Present 08/09/18 06:10 Platelet Estimate Normal (NORMAL) 08/22/18 06:01 Large Platelets Present 08/22/18 06:01 Giant Platelets Present 08/19/18 06:34 RBC Morphology Normal 07/27/18 18:26 Polychromasia Slight 08/22/18 06:01 Hypochromasia (manual) Slight 08/19/18 06:34 Poikilocytosis (manual Slight 08/22/18 06:01 Basophilic Stippling Slight 07/28/18 10:31 Anisocytosis (manual) Slight 08/22/18 06:01 Microcytosis (manual) Slight 08/22/18 06:01 Macrocytosis (manual) Slight 08/22/18 06:01 Spherocytes Slight 08/22/18 06:01 Target Cells Slight 08/19/18 06:34 Tear Drop Cells Slight 08/22/18 06:01 Ovalocytes Slight 08/22/18 06:01 Corral Cells Slight 08/22/18 06:01 Acanthocytes (Spur) Slight 08/19/18 06:34 Schistocytes Slight 08/22/18 06:01 ESR 25 mm/hr (0-20) H 08/07/18 22:58 PT 30.0 SECONDS (9.7-12.2) H 08/29/18 06:51 INR 2.7 08/29/18 06:51 APTT 83 SECONDS (21-34) H D 08/26/18 05:53 Thrombin Time 37 sec (13-19) H 08/08/18 11:36 Fibrinogen 439 mg/dL (200-400) H 07/30/18 11:34 Fibrin Degrad Products Positive (NEGATIVE) H 07/27/18 10:17 Fibrin Degrad Prod, Qt >40 ug/mL (<10) H 07/27/18 10:17 D-Dimer, Quantitative 1246 ng/mlDDU (0-243) H 08/23/18 04:34 Lupus Anticoagulant see note 08/08/18 11:36 LA PTT Screen 100 sec (<=40) H 08/08/18 11:36 dRVVT Mixing Study 37 sec (<=45) 08/08/18 11:36 dRVVT Mix Interpret Not indicated 08/08/18 11:36 Hexagonal Phase Confirm Weak positive (Negative) H 08/08/18 11:36 Antithrombin III Ag 53 % (80-120) L 08/10/18 08:30 Antithrombin III Activ 54 % activity (80-120) L 08/10/18 08:30 Puncture Site Rr 07/31/18 05:20 pCO2 25 mm/Hg (35-45) L 07/31/18 05:20 pO2 220 mm/Hg (80-100) H 07/31/18 05:20 HCO3 23.9 mmol/L (21-28) 07/31/18 05:20 ABG pH 7.53 (7.35-7.45) H 07/31/18 05:20 ABG Total CO2 21.7 mmol/L (22-28) L 07/31/18 05:20 ABG O2 Saturation 99.3 % (95-98) H 07/31/18 05:20 ABG Base Excess -1.4 mmol/L (-2.0-3.0) 07/31/18 05:20 ABG Hemoglobin 7.1 g/dL (11.7-17.4) L 07/31/18 05:20 ABG Carboxyhemoglobin 0.8 % (0.5-1.5) 07/31/18 05:20 POC ABG HHb (Measured) 0.7 % (0.0-5.0) 07/31/18 05:20 ABG Methemoglobin 0.8 % (0.0-3.0) 07/31/18 05:20 Bryce Test Pos 07/31/18 05:20 ABG Potassium 3.2 mmol/L (3.6-5.2) L 07/28/18 16:34 VBG pH 7.39 (7.32-7.43) 07/29/18 10:39 VBG pCO2 26 mmHg (40-60) L 07/29/18 10:39 VBG HCO3 18.4 mmol/L 07/29/18 10:39 VBG Total CO2 16.5 mmol/L (22-28) L 07/29/18 10:39 VBG O2 Sat (Calc) 80.1 % (40-65) H 07/29/18 10:39 VBG Base Excess -7.6 mmol/L (0.0-2.0) L 07/29/18 10:39 VBG Potassium 1.8 mmol/L (3.6-5.2) L* 07/29/18 10:39 A-a O2 Difference 105.0 mm/Hg 07/31/18 05:20 Respiratory Index 0.5 07/31/18 05:20 Hgb O2 Saturation 97.8 % (95.0-98.0) 07/31/18 05:20 Sodium 157.0 mmol/l (132-148) H 07/29/18 10:39 Chloride 133.0 mmol/L (98-107) H 07/29/18 10:39 Glucose 94 mg/dl (65-105) 07/29/18 10:39 Lactate 1.5 mmol/L (0.7-2.1) 07/29/18 10:39 Vent Mode Prvc 07/31/18 05:20 Mechanical Rate 20 07/31/18 05:20 FiO2 50.0 % 07/31/18 05:20 Tidal Volume 500 07/31/18 05:20 PEEP 5 07/31/18 05:20 Crit Value Called To Dr kurtz 07/29/18 10:39 Crit Value Called By Philip holliday crt 07/29/18 10:39 Crit Value Read Back Y 07/29/18 10:39 Blood Gas Notified Time 1045 07/29/18 10:39 Sodium 139 mmol/L (132-148) 08/29/18 06:51 Potassium 3.8 mmol/L (3.6-5.2) 08/29/18 06:51 Chloride 108 mmol/L (98-107) H 08/29/18 06:51 Carbon Dioxide 23 mmol/L (22-30) 08/29/18 06:51 Anion Gap 12 (10-20) 08/29/18 06:51 BUN 12 mg/dL (7-17) 08/29/18 06:51 Creatinine 1.0 mg/dL (0.7-1.2) 08/29/18 06:51 Est GFR ( Amer) > 60 08/29/18 06:51 Est GFR (Non-Af Amer) 60 08/29/18 06:51 POC Glucose (mg/dL) 213 mg/dL (65-110) H 08/18/18 21:16 Random Glucose 87 mg/dL (65-105) 08/29/18 06:51 Lactic Acid 2.9 mmol/L (0.7-2.1) H 07/29/18 18:23 Calcium 8.4 mg/dl (8.6-10.4) L 08/29/18 06:51 Phosphorus 4.0 mg/dL (2.5-4.5) 08/29/18 06:51 Magnesium 1.6 mg/dL (1.6-2.3) 08/29/18 06:51 Iron 59 ug/dL (37-170) 08/26/18 10:48 TIBC 230 ug/dL (250-450) L 08/26/18 10:48 % Saturation 26 (20-55) 08/26/18 10:48 Ferritin 584.0 ng/mL 08/27/18 06:32 Total Bilirubin 0.5 mg/dL (0.2-1.3) 08/29/18 06:51 AST 43 U/L (14-36) H 08/29/18 06:51 ALT 44 U/L (9-52) 08/29/18 06:51 Alkaline Phosphatase 103 U/L (38-126) 08/29/18 06:51 Total Creatine Kinase 113 U/L (30-135) 08/23/18 04:34 CK-MB (Mass) 3.48 ng/mL (0.0-3.38) H 08/23/18 04:34 Troponin I 0.1200 ng/mL (0.00-0.120) 08/23/18 04:34 C-React Prot High Sens > 15.00 mg/L (1.00-3.00) H 08/07/18 22:58 NT-Pro-B Natriuret Pep 4260 pg/mL (0-450) H 08/27/18 06:32 Total Protein 6.4 g/dL (6.3-8.3) 08/29/18 06:51 Albumin 3.0 g/dL (3.5-5.0) L 08/29/18 06:51 Globulin 3.4 gm/dL (2.2-3.9) 08/29/18 06:51 Albumin/Globulin Ratio 0.9 (1.0-2.1) L 08/29/18 06:51 Ngtzy-4-Mrdphkzkp 6.3 Relative % 08/10/18 08:00 Evwkf-0-Hfforowhb 25.8 Relative % 08/10/18 08:00 Beta Globulins 19.2 Relative % 08/10/18 08:00 Gamma Globulins 21.9 Relative % 08/10/18 08:00 Triglycerides 100 mg/dL (0-149) 08/08/18 06:19 Cholesterol 101 mg/dL (0-199) 08/08/18 06:19 LDL Cholesterol Direct 46 mg/dL (0-129) 08/08/18 06:19 HDL Cholesterol 40 mg/dL (30-70) 08/08/18 06:19 Amylase 171 U/L (30-110) H 07/27/18 02:16 Lipase 207 U/L (23-300) 07/27/18 02:16 Vitamin B12 508 pg/mL (239-931) 08/26/18 10:48 Procalcitonin 2.81 NG/ML (0.19-0.49) H 08/20/18 17:55 Free T4 1.95 ng/dL (0.78-2.19) 08/18/18 07:37 TSH 3rd Generation 4.07 mIU/L (0.46-4.68) 08/18/18 07:37 Arterial Blood Potassium 3.2 mmol/L (3.6-5.2) L 07/28/18 16:34 Venous Blood Potassium 1.8 mmol/L (3.6-5.2) L* 07/29/18 10:39 Urine Color Straw (YELLOW) 08/21/18 15:30 Urine Clarity Clear (Clear) 08/21/18 15:30 Urine pH 6.0 (5.0-8.0) 08/21/18 15:30 Ur Specific [place] 1.006 (1.003-1.030) 08/21/18 15:30 Urine Protein Negative mg/dL (NEGATIVE) 08/21/18 15:30 Urine Glucose (UA) Normal mg/dL (Normal) 08/21/18 15:30 Urine Ketones Negative mg/dL (NEGATIVE) 08/21/18 15:30 Urine Blood 1+ (NEGATIVE) H 08/21/18 15:30 Urine Nitrate Negative (NEGATIVE) 08/21/18 15:30 Urine Bilirubin Negative (NEGATIVE) 08/21/18 15:30 Urine Urobilinogen Normal mg/dL (0.2-1.0) 08/21/18 15:30 Ur Leukocyte Esterase Neg Jessica/uL (Negative) 08/21/18 15:30 Urine WBC (Auto) 3 /hpf (0-5) 08/21/18 15:30 Urine RBC (Auto) 3 /hpf (0-3) 08/21/18 15:30 Ur Squamous Epith Cells < 1 /hpf (0-5) 08/21/18 15:30 Amorphous Sediment Rare /ul (<OCC) H 08/18/18 19:33 Urine Bacteria Mod (<OCC) H 08/21/18 15:30 Urine Yeast (Budding) Many /hpf (NEGATIVE) H 08/11/18 10:31 U Random Total Protein 2640 mg/g creat (21-161) H 08/08/18 18:14 Urine Creatinine 0.74 g/L 08/10/18 08:00 Ur Creatinine 24 Hour 0.75 g/24 h (0.63-2.50) 08/10/18 08:00 Ur Microalbumin mg/dl 17.3 mg/dL 08/10/18 07:34 Ur Microalbumin mcg/min 122 mcg/min (<20) H 08/10/18 07:34 Ur Microalbumin 24 Hr 176 mg/24 h (<30) H 08/10/18 07:34 U Creat (Microalbumin) 0.73 g/L 08/10/18 07:34 Microalb/Creat Ratio 24 235 08/10/18 07:34 Ur Total Protein 24 Hr 1632 mg/24 h (<150) H 08/10/18 08:00 Protein/Creat Ratio 24h 2162 mg/g creat (</=84) H 08/10/18 08:00 Urine Total Protein 1600 mg/L (50-240) H 08/10/18 08:00 Urine Albumin (PEP) 26.8 Relative % 08/10/18 08:00 Ur Protein Fractions See note 08/10/18 08:00 Urine HCG, Qual Negative (NEGATIVE) 08/10/18 09:51 Stool Occult Blood Positive (NEGATIVE) 08/16/18 13:19 Stool Occult Blood #2 Positive (NEGATIVE) 08/16/18 13:19 Stool Leukocytes, Qual Negative (NEGATIVE) 07/27/18 18:26 Vancomycin Trough < 5.0 ug/mL (5.0-10.0) L 08/21/18 11:56 Random Vancomycin 9.4 ug/mL 08/24/18 05:56 Urine Opiates Screen Negative (NEGATIVE) 07/27/18 04:01 Urine Methadone Screen Negative (NEGATIVE) 07/27/18 04:01 Ur Barbiturates Screen Negative (NEGATIVE) 07/27/18 04:01 Ur Phencyclidine Scrn Negative (NEGATIVE) 07/27/18 04:01 Ur Amphetamines Screen Negative (NEGATIVE) 07/27/18 04:01 U Benzodiazepines Scrn Negative (NEGATIVE) 07/27/18 04:01 U Oth Cocaine Metabols Negative (NEGATIVE) 07/27/18 04:01 U Cannabinoids Screen Negative (NEGATIVE) 07/27/18 04:01 [place] 6 Profile Negative (NEGATIVE) 08/10/18 08:30 [place] Nuclear Membr Pat Negative (Negative) 08/07/18 09:33 ANCA Screen Negative (NEGATIVE) 08/07/18 10:37 c-ANCA Titer TNP 08/07/18 10:37 Proteinase 3 (PR3) <1.0 AI (<1.0) 08/07/18 10:37 p-ANCA Titer TNP 08/07/18 10:37 Atypical p-ANCA Titer TNP 08/07/18 10:37 Myeloperoxidase Ab <1.0 AI (<1.0) 08/07/18 10:37 SENIOR HAD[employer]OP DEVELOPER Antibody <1.0 AI (<1.0) 08/10/18 08:30 SENIOR HADOOP DEVELOPER Antibody Interp Negative (Negative) 08/10/18 08:30 Scl-70 Scleroderma Ab <1.0 AI (<1.0) 08/10/18 08:30 Sroj-0-Kuikkqbynwuq Ab <9 SARANYA (<=20) 08/10/18 06:02 Beta-2 GPI IgG Ab <9 SGU (<=20) 08/10/18 06:02 Beta-2 GPI IgM Ab <9 SMU (<=20) 08/10/18 06:02 Beta-2-GPI IgG Ab <9 SGU (<=20) 08/08/18 10:05 Beta-2-GPI IgA Ab <9 SARANYA (<=20) 08/08/18 10:05 Beta-2-GPI IgM Ab <9 SMU (<=20) 08/08/18 10:05 Glomerular Base Mem IgG <1.0 AI (<1.0) 08/19/18 06:35 Phosphatidylserine IgG <10 U/mL (<10) 08/10/18 06:02 Phosphatidylserine IgA <20 U/mL (<20) 08/10/18 06:02 Phosphatidylserine IgM <25 U/mL (<25) 08/10/18 06:02 Anti-Phospholipid Intrp see note 08/10/18 06:02 Anti-Cardiolipin IgG Ab <14 GPL (<=14) 08/10/18 06:02 Anti-Cardiolipin IgA Ab <11 APL (<=11) 08/10/18 06:02 Anti-Cardiolipin IgM Ab <12 MPL (<=12) 08/10/18 06:02 Complement C3 55.0 mg/dL (88.0-165.0) L 08/14/18 06:46 Complement C4 18.3 mg/dL (14.0-44.0) 08/14/18 06:46 Tot Complement (CH50) 37 U/mL (31-60) 08/08/18 06:19 C. difficile Ag & Toxin Negative (NEGATIVE) 08/07/18 21:29 Hep Bs Antigen Negative (NEGATIVE) 08/01/18 11:37 Hep Bs Antibody Positive (NEGATIVE) 08/01/18 11:37 Hep B Core IgM Ab Negative (NEGATIVE) 08/01/18 11:37 Hepatitis C Antibody Negative (NEGATIVE) 08/01/18 11:37 HIV 1&2 Antibody Screen Negative (NEGATIVE) 08/10/18 08:30 Salmonella H Type A Equivocal H 07/27/18 18:26 Salmonella H Type B Equivocal H 07/27/18 18:26 Salmonella H Type D Equivocal H 07/27/18 18:26 Salmonella O Type D Negative 07/27/18 18:26 Salmonella O Type Vi Equivocal H 07/27/18 18:26 Blood Type A POSITIVE 08/21/18 11:56 Blood Type Confirm A POSITIVE 07/27/18 19:40 Antibody Screen Negative 08/21/18 11:56 - Hospital Course Hospital Course: Attending: Dr. Najera Consult: Mejia- cardio Nohemy- ID aTmanna- Rheum -[place]- vascular Nephro- Natividad Stable for discharge This is a 48 yo female, originally from [place], with bilateral pulmonary embolism Acute renal failure likey due to ATN -Per family urine outputs are good. -No kidney biopsy -Dr Henson Nephro consult no longer needs HD no longer needs renal dosing of eliquis 10mg bid for 7 days then 5mg BID afterwards Bilateral PE and DVT -Eliquis 10 mg po q12 -CTA chest: extensive b/l lower lobe proximal pulmonary emboli distal on margins of R and L pulmonary arteries, lower lobe of branches and proximal segmental - branches b/l. 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 eliquis 10 bid followed by 5 bid 2. simvastatin 20 mg po daily 3. plavix 75 mg po daily 4. asa 81 mg po daily 5. coreg bid. DC instructions Pt to follow up in [facility] at [facility] on 09/04 - Date & Time of H&P Date of H&P: 07/27/18 Discharge Exam - Head Exam Head Exam: ATRAUMATIC, NORMAL INSPECTION, NORMOCEPHALIC - Eye Exam Eye Exam: EOMI - ENT Exam ENT Exam: Mucous Membranes Moist - Neck Exam Neck exam: Full Rom, Normal Inspection - Respiratory Exam Respiratory Exam: NORMAL BREATHING PATTERN - Cardiovascular Exam Cardiovascular Exam: +S1, +S2 - GI/Abdominal Exam GI & Abdominal Exam: Normal Bowel Sounds - Extremities Exam Extremities exam: full ROM, normal inspection - Neurological Exam Neurological exam: Alert, Oriented x3 - Psychiatric Exam Psychiatric exam: Normal Affect, Normal Mood - Skin Skin Exam: Dry, Intact, Normal Color, Warm Discharge Plan - Discharge Medications Prescriptions: Apixaban [Eliquis] 5 mg PO BID #60 tablet Apixaban [Eliquis] 10 mg PO BID #9 tablet RX: Aspirin [Aspirin Chewable] 81 mg PO DAILY #14 chew RX: Carvedilol [Coreg] 3.125 mg PO BID #20 tab RX: Clopidogrel [Plavix] 75 mg PO DAILY #10 tab RX: Simvastatin 20 mg PO DAILY #10 tablet - Follow Up Plan Condition: GUARDED Disposition: HOME/ ROUTINE Instructions: Sudden Cardiac Arrest, Arrhythmias (DC), Pulmonary Embolism (Blood Clot in the Lungs) (DC), Apixaban, Aspirin, Carvedilol, Clopidogrel, Simvastatin Additional Instructions: Pt is to be d/c home on the following medications: Eliquis 10mg take 2x a day at 8am and 8pm until Sep 02, 2018 Eliquis 5mg take 2x a day at 8am and 8pm starting Sep 03, 2018 Coreg 3.125mg take 2x a day at 8am and 8pm starting today Plavix 75mg once a day at 8am starting today Simvastatin 20mg once a day at 8am starting today Pt is to follow up with Dr Ba in office on FridaySep 01 at Count [facility] the [facility] office [address] [place], [place] call [phone] Pt is to follow up with Dr Buckley at the [facility] on Sep 04 2018 at 9am Pt deve ser d/c casa sobre os seguintes medicamentos: Eliquis 10mg lenard 2x um tram s 8h e 8pm at Sep 02, 2018 Eliquis 5mg lenard 2x um tram s 8h e 8pm a partir de 2017 Coreg 3.125 mg lenard 2x um tram s 8h e 8pm a partir de hoje Plavix 75mg farrah vez por tram s 8h a partir de hoje Simvastatin 20mg farrah vez por tram s 8h a partir de hoje Pt o acompanhamento com o Dr. Ba no escritrio na cheryl-feira no [facility] [address] [place], [place] chamada [phone] Pt acompanhar com o Dr. Buckley na nica [facility] em 2017 s 9h Referrals: Ignacio Ba MD [Staff Provider] - Kaylin Buckley MD [Staff Provider] - <Matthew Najera - Last Filed: 08/29/18 18:25> Provider - Provider Date of Admission: 07/27/18 03:33 Attending physician: Matthew Najera MD Hospital Course - Lab Results Lab Results: Micro Results 08/27/18 07:26 Blood-Venous Blood Culture - Preliminary NO GROWTH AFTER 48 HOURS 08/27/18 07:26 Blood-Venous Blood Culture - Preliminary NO GROWTH AFTER 48 HOURS 08/27/18 06:00 Naris MRSA Culture - Final MRSA NOT DETECTED 08/21/18 12:26 Blood Blood Culture - Final NO GROWTH AFTER 5 DAYS 08/21/18 12:26 Blood Gram Stain - Final TEST NOT PERFORMED 08/21/18 12:26 Blood Blood Culture - Final NO GROWTH AFTER 5 DAYS 08/21/18 12:26 Blood Gram Stain - Final TEST NOT PERFORMED 08/21/18 12:26 Urine,Clean Catch Urine Culture - Final MULTIPLE SPECIES. SUGGEST REPEAT SPECIMEN. 08/18/18 09:24 Naris MRSA Culture (Admit) - Final MRSA NOT DETECTED 08/14/18 18:55 Nose MRSA Culture - Final MRSA NOT DETECTED 08/11/18 10:31 Urine,Becerril Urine Culture - Final Yeast Species 08/08/18 15:21 Naris MRSA Culture (Admit) - Final MRSA NOT DETECTED 08/02/18 17:46 Stool Stool Culture - Final NO SALMONELLA, SHIGELLA OR CAMPYLOBACTER ISOLATED. 08/02/18 17:46 Stool Ova and Parasite Concentrate Exam - Final 07/27/18 10:29 Blood-Venous Blood Culture - Final NO GROWTH AFTER 5 DAYS 07/27/18 10:29 Blood-Venous Gram Stain - Final TEST NOT PERFORMED 07/27/18 10:04 Blood-Venous Blood Culture - Final NO GROWTH AFTER 5 DAYS 07/27/18 10:04 Blood-Venous Gram Stain - Final TEST NOT PERFORMED 07/29/18 00:28 Sputum Gram Stain - Final 07/29/18 00:28 Sputum Sputum Culture - Final Yeast Species 07/27/18 18:26 Stool Stool Culture - Final NO SALMONELLA, SHIGELLA OR CAMPYLOBACTER ISOLATED. 07/27/18 09:18 Naris MRSA Culture (Admit) - Final MRSA NOT DETECTED 07/27/18 05:31 Urine,Catheterized Urine Culture - Final No Growth (<1,000 CFU/ML) Most Recent Lab Values WBC 6.4 K/uL (4.8-10.8) 08/29/18 06:51 RBC 2.92 Mil/uL (3.80-5.20) L 08/29/18 06:51 Hgb 7.8 g/dL (11.0-16.0) L 08/29/18 06:51 Hct 23.3 % (34.0-47.0) L 08/29/18 06:51 MCV 79.7 fL (81.0-99.0) L 08/29/18 06:51 MCH 26.6 pg (27.0-31.0) L 08/29/18 06:51 MCHC 33.4 g/dL (33.0-37.0) 08/29/18 06:51 RDW 19.9 % (11.5-14.5) H 08/29/18 06:51 Plt Count 205 K/uL (130-400) 08/29/18 06:51 MPV 8.4 fL (7.2-11.7) 08/29/18 06:51 Neut % (Auto) 39.2 % (50.0-75.0) L 08/29/18 06:51 Lymph % (Auto) 50.9 % (20.0-40.0) H 08/29/18 06:51 Gilliam % (Auto) 8.3 % (0.0-10.0) 08/29/18 06:51 Eos % (Auto) 0.6 % (0.0-4.0) 08/29/18 06:51 Baso % (Auto) 1.0 % (0.0-2.0) 08/29/18 06:51 Neut # (Auto) 2.5 K/uL (1.8-7.0) 08/29/18 06:51 Lymph # (Auto) 3.3 K/uL (1.0-4.3) 08/29/18 06:51 Gilliam # (Auto) 0.5 K/uL (0.0-0.8) 08/29/18 06:51 Eos # (Auto) 0.0 K/uL (0.0-0.7) 08/29/18 06:51 Baso # (Auto) 0.1 K/uL (0.0-0.2) 08/29/18 06:51 Neutrophils % (Manual) 52 % (50-75) 08/22/18 06:01 Band Neutrophils % 3 % (0-2) H 08/22/18 06:01 Lymphocytes % (Manual) 33 % (20-40) 08/22/18 06:01 Reactive Lymphs % 2 % (0-0) H 08/22/18 06:01 Monocytes % (Manual) 4 % (0-10) 08/22/18 06:01 Eosinophils % (Manual) 3 % (0-4) 08/22/18 06:01 Basophils % (Manual) 1 % (0-2) 08/22/18 06:01 Metamyelocytes % 1 % (0-0) H 08/22/18 06:01 Myelocytes % 1 % (0-0) H 08/22/18 06:01 Nucleated RBC % 3 % (0-0) H 08/03/18 06:52 Toxic Granulation Present 08/09/18 06:10 Platelet Estimate Normal (NORMAL) 08/22/18 06:01 Large Platelets Present 08/22/18 06:01 Giant Platelets Present 08/19/18 06:34 RBC Morphology Normal 07/27/18 18:26 Polychromasia Slight 08/22/18 06:01 Hypochromasia (manual) Slight 08/19/18 06:34 Poikilocytosis (manual Slight 08/22/18 06:01 Basophilic Stippling Slight 07/28/18 10:31 Anisocytosis (manual) Slight 08/22/18 06:01 Microcytosis (manual) Slight 08/22/18 06:01 Macrocytosis (manual) Slight 08/22/18 06:01 Spherocytes Slight 08/22/18 06:01 Target Cells Slight 08/19/18 06:34 Tear Drop Cells Slight 08/22/18 06:01 Ovalocytes Slight 08/22/18 06:01 Corral Cells Slight 08/22/18 06:01 Acanthocytes (Spur) Slight 08/19/18 06:34 Schistocytes Slight 08/22/18 06:01 ESR 25 mm/hr (0-20) H 08/07/18 22:58 PT 30.0 SECONDS (9.7-12.2) H 08/29/18 06:51 INR 2.7 08/29/18 06:51 APTT 83 SECONDS (21-34) H D 08/26/18 05:53 Thrombin Time 37 sec (13-19) H 08/08/18 11:36 Fibrinogen 439 mg/dL (200-400) H 07/30/18 11:34 Fibrin Degrad Products Positive (NEGATIVE) H 07/27/18 10:17 Fibrin Degrad Prod, Qt >40 ug/mL (<10) H 07/27/18 10:17 D-Dimer, Quantitative 1246 ng/mlDDU (0-243) H 08/23/18 04:34 Lupus Anticoagulant see note 08/08/18 11:36 LA PTT Screen 100 sec (<=40) H 08/08/18 11:36 dRVVT Mixing Study 37 sec (<=45) 08/08/18 11:36 dRVVT Mix Interpret Not indicated 08/08/18 11:36 Hexagonal Phase Confirm Weak positive (Negative) H 08/08/18 11:36 Antithrombin III Ag 53 % (80-120) L 08/10/18 08:30 Antithrombin III Activ 54 % activity (80-120) L 08/10/18 08:30 Puncture Site Rr 07/31/18 05:20 pCO2 25 mm/Hg (35-45) L 07/31/18 05:20 pO2 220 mm/Hg (80-100) H 07/31/18 05:20 HCO3 23.9 mmol/L (21-28) 07/31/18 05:20 ABG pH 7.53 (7.35-7.45) H 07/31/18 05:20 ABG Total CO2 21.7 mmol/L (22-28) L 07/31/18 05:20 ABG O2 Saturation 99.3 % (95-98) H 07/31/18 05:20 ABG Base Excess -1.4 mmol/L (-2.0-3.0) 07/31/18 05:20 ABG Hemoglobin 7.1 g/dL (11.7-17.4) L 07/31/18 05:20 ABG Carboxyhemoglobin 0.8 % (0.5-1.5) 07/31/18 05:20 POC ABG HHb (Measured) 0.7 % (0.0-5.0) 07/31/18 05:20 ABG Methemoglobin 0.8 % (0.0-3.0) 07/31/18 05:20 Bryce Test Pos 07/31/18 05:20 ABG Potassium 3.2 mmol/L (3.6-5.2) L 07/28/18 16:34 VBG pH 7.39 (7.32-7.43) 07/29/18 10:39 VBG pCO2 26 mmHg (40-60) L 07/29/18 10:39 VBG HCO3 18.4 mmol/L 07/29/18 10:39 VBG Total CO2 16.5 mmol/L (22-28) L 07/29/18 10:39 VBG O2 Sat (Calc) 80.1 % (40-65) H 07/29/18 10:39 VBG Base Excess -7.6 mmol/L (0.0-2.0) L 07/29/18 10:39 VBG Potassium 1.8 mmol/L (3.6-5.2) L* 07/29/18 10:39 A-a O2 Difference 105.0 mm/Hg 07/31/18 05:20 Respiratory Index 0.5 07/31/18 05:20 Hgb O2 Saturation 97.8 % (95.0-98.0) 07/31/18 05:20 Sodium 157.0 mmol/l (132-148) H 07/29/18 10:39 Chloride 133.0 mmol/L (98-107) H 07/29/18 10:39 Glucose 94 mg/dl (65-105) 07/29/18 10:39 Lactate 1.5 mmol/L (0.7-2.1) 07/29/18 10:39 Vent Mode Prvc 07/31/18 05:20 Mechanical Rate 20 07/31/18 05:20 FiO2 50.0 % 07/31/18 05:20 Tidal Volume 500 07/31/18 05:20 PEEP 5 07/31/18 05:20 Crit Value Called To Dr kurtz 07/29/18 10:39 Crit Value Called By Philip holliday crt 07/29/18 10:39 Crit Value Read Back Y 07/29/18 10:39 Blood Gas Notified Time 1045 07/29/18 10:39 Sodium 139 mmol/L (132-148) 08/29/18 06:51 Potassium 3.8 mmol/L (3.6-5.2) 08/29/18 06:51 Chloride 108 mmol/L (98-107) H 08/29/18 06:51 Carbon Dioxide 23 mmol/L (22-30) 08/29/18 06:51 Anion Gap 12 (10-20) 08/29/18 06:51 BUN 12 mg/dL (7-17) 08/29/18 06:51 Creatinine 1.0 mg/dL (0.7-1.2) 08/29/18 06:51 Est GFR ( Amer) > 60 08/29/18 06:51 Est GFR (Non-Af Amer) 60 08/29/18 06:51 POC Glucose (mg/dL) 213 mg/dL (65-110) H 08/18/18 21:16 Random Glucose 87 mg/dL (65-105) 08/29/18 06:51 Lactic Acid 2.9 mmol/L (0.7-2.1) H 07/29/18 18:23 Calcium 8.4 mg/dl (8.6-10.4) L 08/29/18 06:51 Phosphorus 4.0 mg/dL (2.5-4.5) 08/29/18 06:51 Magnesium 1.6 mg/dL (1.6-2.3) 08/29/18 06:51 Iron 59 ug/dL (37-170) 08/26/18 10:48 TIBC 230 ug/dL (250-450) L 08/26/18 10:48 % Saturation 26 (20-55) 08/26/18 10:48 Ferritin 584.0 ng/mL 08/27/18 06:32 Total Bilirubin 0.5 mg/dL (0.2-1.3) 08/29/18 06:51 AST 43 U/L (14-36) H 08/29/18 06:51 ALT 44 U/L (9-52) 08/29/18 06:51 Alkaline Phosphatase 103 U/L (38-126) 08/29/18 06:51 Total Creatine Kinase 113 U/L (30-135) 08/23/18 04:34 CK-MB (Mass) 3.48 ng/mL (0.0-3.38) H 08/23/18 04:34 Troponin I 0.1200 ng/mL (0.00-0.120) 08/23/18 04:34 C-React Prot High Sens > 15.00 mg/L (1.00-3.00) H 08/07/18 22:58 NT-Pro-B Natriuret Pep 4260 pg/mL (0-450) H 08/27/18 06:32 Total Protein 6.4 g/dL (6.3-8.3) 08/29/18 06:51 Albumin 3.0 g/dL (3.5-5.0) L 08/29/18 06:51 Globulin 3.4 gm/dL (2.2-3.9) 08/29/18 06:51 Albumin/Globulin Ratio 0.9 (1.0-2.1) L 08/29/18 06:51 Srlzy-0-Emfemjkni 6.3 Relative % 08/10/18 08:00 Aceqh-8-Fpcftwlkn 25.8 Relative % 08/10/18 08:00 Beta Globulins 19.2 Relative % 08/10/18 08:00 Gamma Globulins 21.9 Relative % 08/10/18 08:00 Triglycerides 100 mg/dL (0-149) 08/08/18 06:19 Cholesterol 101 mg/dL (0-199) 08/08/18 06:19 LDL Cholesterol Direct 46 mg/dL (0-129) 08/08/18 06:19 HDL Cholesterol 40 mg/dL (30-70) 08/08/18 06:19 Amylase 171 U/L (30-110) H 07/27/18 02:16 Lipase 207 U/L (23-300) 07/27/18 02:16 Vitamin B12 508 pg/mL (239-931) 08/26/18 10:48 Procalcitonin 2.81 NG/ML (0.19-0.49) H 08/20/18 17:55 Free T4 1.95 ng/dL (0.78-2.19) 08/18/18 07:37 TSH 3rd Generation 4.07 mIU/L (0.46-4.68) 08/18/18 07:37 Arterial Blood Potassium 3.2 mmol/L (3.6-5.2) L 07/28/18 16:34 Venous Blood Potassium 1.8 mmol/L (3.6-5.2) L* 07/29/18 10:39 Urine Color Straw (YELLOW) 08/21/18 15:30 Urine Clarity Clear (Clear) 08/21/18 15:30 Urine pH 6.0 (5.0-8.0) 08/21/18 15:30 Ur Specific [place] 1.006 (1.003-1.030) 08/21/18 15:30 Urine Protein Negative mg/dL (NEGATIVE) 08/21/18 15:30 Urine Glucose (UA) Normal mg/dL (Normal) 08/21/18 15:30 Urine Ketones Negative mg/dL (NEGATIVE) 08/21/18 15:30 Urine Blood 1+ (NEGATIVE) H 08/21/18 15:30 Urine Nitrate Negative (NEGATIVE) 08/21/18 15:30 Urine Bilirubin Negative (NEGATIVE) 08/21/18 15:30 Urine Urobilinogen Normal mg/dL (0.2-1.0) 08/21/18 15:30 Ur Leukocyte Esterase Neg Jessica/uL (Negative) 08/21/18 15:30 Urine WBC (Auto) 3 /hpf (0-5) 08/21/18 15:30 Urine RBC (Auto) 3 /hpf (0-3) 08/21/18 15:30 Ur Squamous Epith Cells < 1 /hpf (0-5) 08/21/18 15:30 Amorphous Sediment Rare /ul (<OCC) H 08/18/18 19:33 Urine Bacteria Mod (<OCC) H 08/21/18 15:30 Urine Yeast (Budding) Many /hpf (NEGATIVE) H 08/11/18 10:31 U Random Total Protein 2640 mg/g creat (21-161) H 08/08/18 18:14 Urine Creatinine 0.74 g/L 08/10/18 08:00 Ur Creatinine 24 Hour 0.75 g/24 h (0.63-2.50) 08/10/18 08:00 Ur Microalbumin mg/dl 17.3 mg/dL 08/10/18 07:34 Ur Microalbumin mcg/min 122 mcg/min (<20) H 08/10/18 07:34 Ur Microalbumin 24 Hr 176 mg/24 h (<30) H 08/10/18 07:34 U Creat (Microalbumin) 0.73 g/L 08/10/18 07:34 Microalb/Creat Ratio 24 235 08/10/18 07:34 Ur Total Protein 24 Hr 1632 mg/24 h (<150) H 08/10/18 08:00 Protein/Creat Ratio 24h 2162 mg/g creat (</=84) H 08/10/18 08:00 Urine Total Protein 1600 mg/L (50-240) H 08/10/18 08:00 Urine Albumin (PEP) 26.8 Relative % 08/10/18 08:00 Ur Protein Fractions See note 08/10/18 08:00 Urine HCG, Qual Negative (NEGATIVE) 08/10/18 09:51 Stool Occult Blood Positive (NEGATIVE) 08/16/18 13:19 Stool Occult Blood #2 Positive (NEGATIVE) 08/16/18 13:19 Stool Leukocytes, Qual Negative (NEGATIVE) 07/27/18 18:26 Vancomycin Trough < 5.0 ug/mL (5.0-10.0) L 08/21/18 11:56 Random Vancomycin 9.4 ug/mL 08/24/18 05:56 Urine Opiates Screen Negative (NEGATIVE) 07/27/18 04:01 Urine Methadone Screen Negative (NEGATIVE) 07/27/18 04:01 Ur Barbiturates Screen Negative (NEGATIVE) 07/27/18 04:01 Ur Phencyclidine Scrn Negative (NEGATIVE) 07/27/18 04:01 Ur Amphetamines Screen Negative (NEGATIVE) 07/27/18 04:01 U Benzodiazepines Scrn Negative (NEGATIVE) 07/27/18 04:01 U Oth Cocaine Metabols Negative (NEGATIVE) 07/27/18 04:01 U Cannabinoids Screen Negative (NEGATIVE) 07/27/18 04:01 [place] 6 Profile Negative (NEGATIVE) 08/10/18 08:30 [place] Nuclear Membr Pat Negative (Negative) 08/07/18 09:33 ANCA Screen Negative (NEGATIVE) 08/07/18 10:37 c-ANCA Titer TNP 08/07/18 10:37 Proteinase 3 (PR3) <1.0 AI (<1.0) 08/07/18 10:37 p-ANCA Titer TNP 08/07/18 10:37 Atypical p-ANCA Titer TNP 08/07/18 10:37 Myeloperoxidase Ab <1.0 AI (<1.0) 08/07/18 10:37 [employer]IOR [employer]EL[employer] Antibody <1.0 AI (<1.0) 08/10/18 08:30 SENIOR HADO[employer] DEVELOPER Antibody Interp Negative (Negative) 08/10/18 08:30 Scl-70 Scleroderma Ab <1.0 AI (<1.0) 08/10/18 08:30 Ykea-8-Aasatdbpaqcp Ab <9 SARANYA (<=20) 08/10/18 06:02 Beta-2 GPI IgG Ab <9 SGU (<=20) 08/10/18 06:02 Beta-2 GPI IgM Ab <9 SMU (<=20) 08/10/18 06:02 Beta-2-GPI IgG Ab <9 SGU (<=20) 08/08/18 10:05 Beta-2-GPI IgA Ab <9 SARANYA (<=20) 08/08/18 10:05 Beta-2-GPI IgM Ab <9 SMU (<=20) 08/08/18 10:05 Glomerular Base Mem IgG <1.0 AI (<1.0) 08/19/18 06:35 Phosphatidylserine IgG <10 U/mL (<10) 08/10/18 06:02 Phosphatidylserine IgA <20 U/mL (<20) 08/10/18 06:02 Phosphatidylserine IgM <25 U/mL (<25) 08/10/18 06:02 Anti-Phospholipid Intrp see note 08/10/18 06:02 Anti-Cardiolipin IgG Ab <14 GPL (<=14) 08/10/18 06:02 Anti-Cardiolipin IgA Ab <11 APL (<=11) 08/10/18 06:02 Anti-Cardiolipin IgM Ab <12 MPL (<=12) 08/10/18 06:02 Complement C3 55.0 mg/dL (88.0-165.0) L 08/14/18 06:46 Complement C4 18.3 mg/dL (14.0-44.0) 08/14/18 06:46 Tot Complement (CH50) 37 U/mL (31-60) 08/08/18 06:19 C. difficile Ag & Toxin Negative (NEGATIVE) 08/07/18 21:29 Hep Bs Antigen Negative (NEGATIVE) 08/01/18 11:37 Hep Bs Antibody Positive (NEGATIVE) 08/01/18 11:37 Hep B Core IgM Ab Negative (NEGATIVE) 08/01/18 11:37 Hepatitis C Antibody Negative (NEGATIVE) 08/01/18 11:37 HIV 1&2 Antibody Screen Negative (NEGATIVE) 08/10/18 08:30 Salmonella H Type A Equivocal H 07/27/18 18:26 Salmonella H Type B Equivocal H 07/27/18 18:26 Salmonella H Type D Equivocal H 07/27/18 18:26 Salmonella O Type D Negative 07/27/18 18:26 Salmonella O Type Vi Equivocal H 07/27/18 18:26 Blood Type A POSITIVE 08/21/18 11:56 Blood Type Confirm A POSITIVE 07/27/18 19:40 Antibody Screen Negative 08/21/18 11:56 Attending/Attestation - Attestation I have personally seen and examined this patient.: Yes I have fully participated in the care of the patient.: Yes I have reviewed all pertinent clinical information, including history, physical exam and plan: Yes
[2018-08-29] MEDS ORDERED: Pneumococcal 23-Valent Vaccine IM ONE (13:12)
[2018-08-29] MEDS ORDERED: Influenza Vaccine 60 MCG/0.5 ML SYR (3 yr & up) IM ONE (13:13)
[2018-08-29 15:43] VITALS: PULSE 97
--- NOTE | 2018-08-30 07:35 | CP.PCM.PN ---
Subjective - Date & Time of Evaluation Date of Evaluation: 08/29/18 Time of Evaluation: 14:00 - Subjective Subjective: Patient feels well, breathing well, ready to go home; Objective - Vital Signs/Intake and Output Vital Signs (last 24 hours): Temp Pulse Resp BP Pulse Ox 99.1 F 97 H 20 102/71 98 08/29/18 07:00 08/29/18 12:00 08/29/18 07:00 08/29/18 07:00 08/29/18 07:00 - Labs Labs: 08/29/18 06:51 08/29/18 06:51 PT 30.0 SECONDS (9.7-12.2) H 08/29/18 06:51 INR 2.7 08/29/18 06:51 APTT 83 SECONDS (21-34) H D 08/26/18 05:53 - Constitutional Appears: Non-toxic, No Acute Distress - Eye Exam Eye Exam: Normal appearance - Respiratory Exam Respiratory Exam: Clear to Ausculation Bilateral. absent: Respiratory Distress - Cardiovascular Exam Cardiovascular Exam: RRR, +S1, +S2 Assessment and Plan (1) Acute renal failure Assessment & Plan: ATN, mostly resolved; given extensive hospital course, patient instructed to have labs in 1-2 weeks and have primary care visit (prior to going back to [place]); Status: Resolved (2) Sepsis Status: Resolved (3) Acute respiratory failure with hypoxemia Status: Acute (4) Hypocalcemia Status: Resolved (5) NSTEMI (non-ST elevated myocardial infarction) Status: Resolved (6) Tachycardia Status: Acute (7) Metabolic acidosis Status: Acute
== END 2018-08-29 16:27 | disposition home or self-care (01) | DRG 134 ==
LOC: C.ER 01:55 → C.9I 03:33 → C.6T 08-05 22:17 → C.9I 08-08 14:26 → C.5S 08-14 18:06 → C.9I 08-18 08:19 → C.6T 08-27 10:12
PROVIDERS: ADMIT Internal Medicine; ATTEND Internal Medicine
PROC: 5A1945Z Respiratory Ventilation, 24-96 Consecutive Hours (ICD-10-PCS; 2018-07-27)
PROC: 05HN33Z Insertion of Infusion Device into Left Internal Jugular Vein, Percutaneous Approach (ICD-10-PCS; 2018-07-27)
PROC: 0BH18EZ Insertion of Endotracheal Airway into Trachea, Via Natural or Artificial Opening Endoscopic (ICD-10-PCS; 2018-07-27)
PROC: 5A1D70Z Performance of Urinary Filtration, Intermittent, Less than 6 Hours Per Day (ICD-10-PCS; 2018-08-01)
PROC: 5A1D70Z Performance of Urinary Filtration, Intermittent, Less than 6 Hours Per Day (ICD-10-PCS; 2018-08-02)
PROC: 5A1D70Z Performance of Urinary Filtration, Intermittent, Less than 6 Hours Per Day (ICD-10-PCS; 2018-08-03)
PROC: 5A1D70Z Performance of Urinary Filtration, Intermittent, Less than 6 Hours Per Day (ICD-10-PCS; 2018-08-03)
PROC: 5A1D70Z Performance of Urinary Filtration, Intermittent, Less than 6 Hours Per Day (ICD-10-PCS; 2018-08-07)
PROC: 4A023N7 Measurement of Cardiac Sampling and Pressure, Left Heart, Percutaneous Approach (ICD-10-PCS; principal; 2018-08-10)
PROC: B2111ZZ Fluoroscopy of Multiple Coronary Arteries using Low Osmolar Contrast (ICD-10-PCS; 2018-08-10)
PROC: B2151ZZ Fluoroscopy of Left Heart using Low Osmolar Contrast (ICD-10-PCS; 2018-08-10)
PROC: 5A1D70Z Performance of Urinary Filtration, Intermittent, Less than 6 Hours Per Day (ICD-10-PCS; 2018-08-10)
DX: I26.99 Other pulmonary embolism without acute cor pulmonale (principal); I21.4 Non-ST elevation (NSTEMI) myocardial infarction; I25.42 Coronary artery dissection; D65 Disseminated intravascular coagulation [defibrination syndrome]; I46.9 Cardiac arrest, cause unspecified; J81.1 Chronic pulmonary edema; J96.02 Acute respiratory failure with hypercapnia; J96.01 Acute respiratory failure with hypoxia; A41.9 Sepsis, unspecified organism; J18.9 Pneumonia, unspecified organism; I82.412 Acute embolism and thrombosis of left femoral vein; N17.0 Acute kidney failure with tubular necrosis; R65.21 Severe sepsis with septic shock; E87.6 Hypokalemia; E87.2 Acidosis; E87.0 Hyperosmolality and hypernatremia; N39.0 Urinary tract infection, site not specified; D64.9 Anemia, unspecified; F41.9 Anxiety disorder, unspecified; I25.10 Atherosclerotic heart disease of native coronary artery without angina pectoris; I25.82 Chronic total occlusion of coronary artery; I27.20 Pulmonary hypertension, unspecified; I48.91 Unspecified atrial fibrillation; K12.0 Recurrent oral aphthae; K55.9 Vascular disorder of intestine, unspecified; Z98.82 Breast implant status; E83.51 Hypocalcemia